=== PATIENT | female | born 1940 | race Caucasian/White ===

== ENCOUNTER 2022-11-09 10:43 | Outpatient (OUT) | payer MEDICARE, SELFPAY | END 2022-11-09 10:44 | disposition home or self-care (01) | LOC: WC 10:44 | PROVIDERS: PCP Internal Medicine; Visit Provider Surgery | DX: M72.6 Necrotizing fasciitis (principal); T81.89XA Other complications of procedures, not elsewhere classified, initial encounter; M13.80 Other specified arthritis, unspecified site; E78.5 Hyperlipidemia, unspecified; I10 Essential (primary) hypertension; Z85.3 Personal history of malignant neoplasm of breast | CPT/HCPCS: 87070; 87077; 87186; 87205; 99212; G0463 ==

== ENCOUNTER 2022-11-13 10:17 | Outpatient (OUT) | payer MEDICARE, SELFPAY | END 2022-11-13 10:18 | LOC: WC 10:17 | PROVIDERS: PCP Internal Medicine; Visit Provider Surgery | DX: T81.89XA Other complications of procedures, not elsewhere classified, initial encounter (principal); M72.6 Necrotizing fasciitis; Z85.3 Personal history of malignant neoplasm of breast; M13.80 Other specified arthritis, unspecified site | CPT/HCPCS: 99211; G0463 ==

== ENCOUNTER 2022-11-15 10:46 | Outpatient (OUT) | payer MEDICARE, SELFPAY | END 2022-11-15 10:47 | LOC: WC 10:46 | PROVIDERS: PCP Internal Medicine; Visit Provider Surgery | DX: T81.89XA Other complications of procedures, not elsewhere classified, initial encounter (principal) | CPT/HCPCS: 99211; G0463 ==

== ENCOUNTER 2022-11-17 10:46 | Outpatient (OUT) | payer MEDICARE, SELFPAY | END 2022-11-17 10:47 | LOC: WC 10:46 | PROVIDERS: PCP Internal Medicine; Visit Provider Surgery | DX: T81.89XA Other complications of procedures, not elsewhere classified, initial encounter (principal) | CPT/HCPCS: 99211; A6213; G0463 ==

== ENCOUNTER 2022-11-20 10:48 | Outpatient (OUT) | payer MEDICARE, SELFPAY | END 2022-11-20 10:49 | PROVIDERS: PCP Internal Medicine; Visit Provider Surgery | DX: T81.89XA Other complications of procedures, not elsewhere classified, initial encounter (principal) | CPT/HCPCS: 15271; A6213 ==

== ENCOUNTER 2022-11-27 10:45 | Outpatient (OUT) | payer MEDICARE, SELFPAY | END 2022-11-27 10:46 | disposition home or self-care (01) | LOC: WC 10:45 | PROVIDERS: PCP Internal Medicine; Visit Provider Surgery | DX: T81.89XA Other complications of procedures, not elsewhere classified, initial encounter (principal); M13.80 Other specified arthritis, unspecified site; E78.5 Hyperlipidemia, unspecified; I10 Essential (primary) hypertension; M72.6 Necrotizing fasciitis; Z85.3 Personal history of malignant neoplasm of breast | CPT/HCPCS: 15271; A6213 ==

== ENCOUNTER 2022-12-04 10:45 | Outpatient (OUT) | payer MEDICARE, SELFPAY | END 2022-12-04 10:46 | disposition home or self-care (01) | LOC: WC 10:46 | PROVIDERS: PCP Internal Medicine; Visit Provider Surgery | DX: T81.89XA Other complications of procedures, not elsewhere classified, initial encounter (principal); M13.80 Other specified arthritis, unspecified site; E78.5 Hyperlipidemia, unspecified; I10 Essential (primary) hypertension; M72.6 Necrotizing fasciitis; Z85.3 Personal history of malignant neoplasm of breast | CPT/HCPCS: 15271; A6213 ==

== ENCOUNTER 2022-12-08 10:17 | Outpatient (OUT) | payer MEDICARE, SELFPAY | END 2022-12-08 10:18 | disposition home or self-care (01) | LOC: WC 10:18 | PROVIDERS: PCP Internal Medicine; Visit Provider Surgery | DX: T81.89XA Other complications of procedures, not elsewhere classified, initial encounter (principal); M13.80 Other specified arthritis, unspecified site; E78.5 Hyperlipidemia, unspecified; I10 Essential (primary) hypertension; M72.6 Necrotizing fasciitis; Z85.3 Personal history of malignant neoplasm of breast | CPT/HCPCS: A6213; G0463 ==

== ENCOUNTER 2022-12-11 10:28 | Outpatient (OUT) | payer MEDICARE, SELFPAY | END 2022-12-11 10:29 | disposition home or self-care (01) | LOC: WC 10:29 | PROVIDERS: PCP Internal Medicine; Visit Provider Surgery | DX: T81.89XA Other complications of procedures, not elsewhere classified, initial encounter (principal) | CPT/HCPCS: G0463 ==

== ENCOUNTER 2022-12-14 10:44 | Outpatient (OUT) | payer MEDICARE, SELFPAY | END 2022-12-14 10:45 | disposition home or self-care (01) | LOC: WC 10:44 | PROVIDERS: PCP Internal Medicine; Visit Provider Surgery | DX: T81.89XA Other complications of procedures, not elsewhere classified, initial encounter (principal) | CPT/HCPCS: 15271; A6213; Q4159 ==

== ENCOUNTER 2022-12-18 10:42 | Outpatient (OUT) | payer MEDICARE, SELFPAY | END 2022-12-18 10:43 | disposition home or self-care (01) | LOC: WC 10:42 | PROVIDERS: PCP Internal Medicine; Visit Provider Surgery | DX: T81.89XA Other complications of procedures, not elsewhere classified, initial encounter (principal) | CPT/HCPCS: A6213; G0463 ==

== ENCOUNTER 2022-12-21 10:17 | Outpatient (OUT) | payer MEDICARE, SELFPAY | END 2022-12-21 10:18 | disposition home or self-care (01) | LOC: WC 10:17 | PROVIDERS: PCP Internal Medicine; Visit Provider Surgery | DX: T81.89XA Other complications of procedures, not elsewhere classified, initial encounter (principal) | CPT/HCPCS: 15271; A6213; Q4159 ==

== ENCOUNTER 2022-12-25 10:42 | Outpatient (OUT) | payer MEDICARE, SELFPAY | END 2022-12-25 10:43 | disposition home or self-care (01) | LOC: WC 10:42 | PROVIDERS: PCP Internal Medicine; Visit Provider Surgery | DX: T81.89XA Other complications of procedures, not elsewhere classified, initial encounter (principal); R60.0 Localized edema; R79.89 Other specified abnormal findings of blood chemistry | CPT/HCPCS: 93970; A6213; G0463 ==

== ENCOUNTER 2022-12-25 16:40 | Outpatient (OUT) | payer MEDICARE, SELFPAY ==
[2022-12-25 16:59] LABS: Basophils Percent Auto 0.4 % (0.2-2.0); Eosinophils Absolute Auto 0.1 10^3/uL (0.0-0.7); Eosinophils Percent Auto 1.1 % (0.9-7.0); Hemoglobin 12.9 g/dL (12.0-16.0); Immature Granulocytes Abs Auto 0.06 10^3/uL (0.00-0.03); Immature Granulocytes Pct Auto 0.5 % (0.0-0.5); Lymphocytes Absolute Auto 1.9 10^3/uL (1.2-3.8); Lymphocytes Percent Auto 16.5 % (20.5-60.0); Mean Corpuscular HGB Conc 33.1 g/dL (29.9-35.2); Mean Corpuscular Hemoglobin 29.2 pg (26.7-34.0); Mean Corpuscular Volume 88.2 fL (81.0-99.0); Mean Platelet Volume 10.4 fL (9.5-13.5); Monocytes Percent Auto 9.2 % (1.7-12.0); Neutrophils Absolute Auto 8.2 10^3/uL (1.4-6.5); Neutrophils Percent Auto 72.3 % (43.0-75.0); Platelet Count 261 10^3/uL (150-450); Red Blood Count 4.42 10^6/uL (4.20-5.40); Red Cell Distribution Width 14.2 % (11.0-15.0); White Blood Count 11.3 10^3/uL (4.0-11.0)
[2022-12-25 18:10] LABS: Alanine Aminotransferase 50 U/L (14-59); Alkaline Phosphatase 122 U/L (46-116); Anion Gap 16.1; Aspartate Amino Transferase 37 U/L (15-37); BUN Creatinine Ratio 20.4; Bilirubin Total 0.6 mg/dL (0.2-1.0); Calcium 10.3 mg/dL (8.5-10.1); Carbon Dioxide 24.1 mmol/L (21.0-32.0); Chloride 104 mmol/L (98-107); Estimated GFR (African America 59 (>=60); Estimated GFR (Non-African Ame 48 (>=60); Glucose 106 mg/dL (74-106); Potassium 4.2 mmol/L (3.5-5.1); Sodium 140 mmol/L (136-145)
== END 2022-12-25 16:41 | disposition home or self-care (01) ==
PROVIDERS: PCP Internal Medicine; Visit Provider Internal Medicine
DX: R60.0 Localized edema (principal); D51.0 Vitamin B12 deficiency anemia due to intrinsic factor deficiency; N18.32 Chronic kidney disease, stage 3b; E03.9 Hypothyroidism, unspecified; R20.8 Other disturbances of skin sensation
CPT/HCPCS: 36415; 80053; 82607; 84443; 85025; 85378

== ENCOUNTER 2022-12-25 17:35 | Outpatient (OUT) | payer MEDICARE, SELFPAY ==
--- NOTE | 2022-12-25 17:38 | US_ITS ---
[place] [address] Patient Name: LAWSON GIBBS MRN: [id number] date: 1940 Sex: F Assigned Patient Location: US Current Patient Location: Accession/Order Number: [id number] Exam Date: 12/25/2022 17:40 Report Date: 12/25/2022 20:02 At the request of: MERCEDEZ HAYES Procedure: US venous doppler LE BI EXAMINATION: US venous doppler LE BI HISTORY: R60.0 LOWER EXTREMITY EDEMA, R79.89 ELEVATED D-DIMER COMPARISON: No relevant comparison available. TECHNIQUE: Grayscale, color and Doppler FINDINGS: Region: Bilateral legs Thrombus: None Flow: Normal Augmentation: Normal Compressibility: Normal US/US venous doppler LE BI IMPRESSION: No deep or superficial vein thrombus in the legs *Exam performed in accordance with [facility] practice guidelines- Peripheral venous ultrasound, September 04, 2009. Electronically authenticated by: MARGIE JOHN Date: 12/25/2022 20:02
== END 2022-12-25 17:36 | disposition home or self-care (01) ==
PROVIDERS: PCP Internal Medicine; Visit Provider Internal Medicine
DX: R60.0 Localized edema (principal); R79.89 Other specified abnormal findings of blood chemistry
CPT/HCPCS: 93970

== ENCOUNTER 2022-12-28 10:42 | Outpatient (OUT) | payer MEDICARE, SELFPAY | END 2022-12-28 10:43 | disposition home or self-care (01) | LOC: WC 10:42 | PROVIDERS: PCP Internal Medicine; Visit Provider Surgery | DX: T81.89XA Other complications of procedures, not elsewhere classified, initial encounter (principal) | CPT/HCPCS: 15271; A6213; Q4159 ==

== ENCOUNTER 2023-01-01 13:17 | Outpatient (OUT) | payer MEDICARE, SELFPAY | END 2023-01-01 13:18 | disposition home or self-care (01) | LOC: WC 13:17 | PROVIDERS: PCP Internal Medicine; Visit Provider Surgery | DX: T81.89XA Other complications of procedures, not elsewhere classified, initial encounter (principal) | CPT/HCPCS: A6213; G0463 ==

== ENCOUNTER 2023-01-04 10:46 | Outpatient (OUT) | payer MEDICARE, SELFPAY | END 2023-01-04 10:47 | disposition home or self-care (01) | LOC: WC 10:47 | PROVIDERS: PCP Internal Medicine; Visit Provider Surgery | DX: T81.89XA Other complications of procedures, not elsewhere classified, initial encounter (principal) | CPT/HCPCS: A6213; G0463 ==

== ENCOUNTER 2023-01-08 10:50 | Outpatient (OUT) | payer MEDICARE, SELFPAY | END 2023-01-08 10:51 | disposition home or self-care (01) | LOC: WC 10:50 | PROVIDERS: PCP Internal Medicine; Visit Provider Physician Assistant | DX: T81.89XA Other complications of procedures, not elsewhere classified, initial encounter (principal) | CPT/HCPCS: A6213; G0463 ==

== ENCOUNTER 2023-01-11 10:46 | Outpatient (OUT) | payer MEDICARE, SELFPAY | END 2023-01-11 10:47 | disposition home or self-care (01) | LOC: WC 10:47 | PROVIDERS: PCP Internal Medicine; Visit Provider Surgery | DX: T81.89XA Other complications of procedures, not elsewhere classified, initial encounter (principal) | CPT/HCPCS: A6213; G0463 ==

== ENCOUNTER 2023-01-15 10:47 | Outpatient (OUT) | payer MEDICARE, SELFPAY | END 2023-01-15 10:48 | disposition home or self-care (01) | LOC: WC 10:47 | PROVIDERS: PCP Internal Medicine; Visit Provider Surgery | DX: T81.89XA Other complications of procedures, not elsewhere classified, initial encounter (principal) | CPT/HCPCS: A6213; G0463 ==

== ENCOUNTER 2023-01-18 10:44 | Outpatient (OUT) | payer MEDICARE, SELFPAY | END 2023-01-18 10:45 | disposition home or self-care (01) | LOC: WC 10:44 | PROVIDERS: PCP Internal Medicine; Visit Provider Surgery | DX: Z01.812 Encounter for preprocedural laboratory examination (principal); Z01.810 Encounter for preprocedural cardiovascular examination; T81.89XA Other complications of procedures, not elsewhere classified, initial encounter; J44.9 Chronic obstructive pulmonary disease, unspecified; R06.02 Shortness of breath | CPT/HCPCS: 71046; 85610; 85730; 93005; A6213; G0463 ==

== ENCOUNTER 2023-01-18 12:45 | Outpatient (OUT) | payer MEDICARE, SELFPAY ==
--- NOTE | 2023-01-18 12:53 | ECG_ITS ---
The [facility] Test Date: 2023-01-18 Pat Name: LAWSON GIBBS Department: Room: - Gender: Female [employer]: : 1940 Requested By: [id number] Order Number: [id number] Reading MD: MERCEDEZ HAYES Measurements Intervals [place] Rate: 58 P: 63 OK: 186 QRS: 54 QRSD: 78 T: 38 QT: 414 QTc: 409 Interpretive Statements SINUS BRADYCARDIA No previous ECG available for comparison Electronically Signed On 01-19-2023 6:59:08 EDT by MERCEDEZ HAYES
--- NOTE | 2023-01-18 13:21 | XR_ITS ---
The [address] [address] Patient Name: LAWSON GIBBS MRN: [id number] date: 1940 Sex: F Assigned Patient Location: [facility] Current Patient Location: [facility] Accession/Order Number: [id number] Exam Date: 01/18/2023 13:45 Report Date: 01/18/2023 14:25 At the request of: RITU DOS SANTOS Procedure: XR chest 2V EXAM: XR chest 2V HISTORY: PRE OP EXAM . COPD with shortness of breath. COMPARISON: 11/15/2021 TECHNIQUE: AP upright portable chest x-ray FINDINGS: The heart is not enlarged and the vasculature is not distended. Slight prominence of interstitial markings in the lower lungs are noted with flattening of the hemidiaphragms indicating COPD. No acute infiltrate, effusion or pneumothorax is identified. Mild scoliosis the spine is noted with diffuse osteopenia. XR/XR chest 2V IMPRESSION: No acute infiltrate or evidence of cardiac decompensation. Mild chronic changes are present. The overall appearance of the chest is unchanged. Electronically authenticated by: LOREN KING Date: 01/18/2023 14:25
--- NOTE | 2023-01-18 14:07 | PM.PRESUREVA ---
History of Present Illness History of Present Illness Chief complaint: Right Breast Wound Narrative: Patient presents for preadmission testing. Please see HPI from Dr. Daniels dated 01/15/2023. Review of Systems ROS Narrative REVIEW OF SYSTEMS: Negative except as stated in HPI, ten or more systems reviewed. Constitutional: No fever , chills, weakness ENT: No sore throat or epistaxis Cardiovascular: Chronic lower extremity edema, Dyspnea on exertion; no chest pain or palpitations Respiratory: Chronic shortness of breath, cough, and wheezing Musculoskeletal: Chronic joint pain and swelling Gastrointestinal: No abdominal pain, constipation, diarrhea, or vomiting Genitourinary: No dysuria or hematuria Neurological: No numbness, tingling, weakness, or headache Psychiatric: No mood changes [facility] Medical History (Updated 01/18/23 @ 14:05 by Marina Bolivar NP) (06/01/14) (~2014) Surgical History (Updated 01/18/23 @ 14:05 by Marina Bolivar NP) (07/19/95) (07/09/97) (03/31/15) (02/16/1962) (~1970) (~06/01/14) (01/02/06) (04/23/98) (10/28/14) (04/07/96) (04/19/12) (12/09/13) (09/03/18) (04/07/96) (07/01/14) (07/07/14) (04/14/15) (09/03/18) (~1969) (02/04/97) (~1939) (10/25/10) (01/18/16) (10/14/19) (~2006) (04/22/08) (09/30/19) Family History (Updated 01/18/23 @ 13:24 by Marina Bolivar NP) Other Family history of lung cancer Social History (Updated 01/18/23 @ 13:12 by Marina Bolivar NP) Within the past year, how often did you have a drink containing alcohol: never Score interpretation: A score less than 3 is consistent with normal alcohol consumption. Smoking status: Former smoker Non-prescribed substance use: denies use Highest level of school completed/degree received: high school graduate Meds Home Medications and Allergies Home Medications Medication Instructions Recorded Confirmed Type acetaminophen 500 mg capsule 1,000 mg PO Q6H PRN pain 01/18/23 01/18/23 History albuterol sulfate 90 mcg/actuation 2 inh inhalation Q6H PRN shortness 01/18/23 01/18/23 History aerosol inhaler of breath or wheezing amlodipine 10 mg tablet 10 mg PO DAILY 01/18/23 01/18/23 History aspirin 81 mg tablet,delayed 81 mg PO DAILY 01/18/23 01/18/23 History release (Adult Aspirin Regimen) atorvastatin 40 mg tablet 40 mg PO QPM 01/18/23 01/18/23 History biotin 10,000 mcg chewable tablet mcg PO 01/18/23 History (Hair, Skin and Nails (biotin)) calcium carbonate 600 mg-vitamin 1 tab PO DAILY 01/18/23 01/18/23 History D3 5 mcg (200 unit) tablet cyanocobalamin (vitamin B-12) 500 mcg IM .monthly 01/18/23 01/18/23 History 1,000 mcg/mL injection solution docusate sodium 100 mg capsule 100 mg PO DAILY PRN constipation 01/18/23 01/18/23 History (Colace) fluticasone fur. 200 mcg-umeclid 1 inh inhalation DAILY 01/18/23 01/18/23 History 62.5 mcg-vilant 25 mcg inhalat.powder (Trelegy Ellipta) inulin 2 gram chewable tablet g PO 01/18/23 History (Fiber Gummies) isosorbide mononitrate 60 mg 60 mg PO DAILY 01/18/23 01/18/23 History tablet,extended release 24 hr levothyroxine 88 mcg tablet 88 mcg PO DAILY 01/18/23 01/18/23 History (Euthyrox) lisinopril 20 mg tablet 20 mg PO DAILY 01/18/23 01/18/23 History temazepam 30 mg capsule (Restoril) 30 mg PO QPM 01/18/23 01/18/23 History Allergies Allergy/AdvReac Type Severity Reaction Status Date / Time Penicillins Allergy Hives Verified 01/18/23 13:11 Sulfa (Sulfonamide Allergy Rash Verified 01/18/23 13:11 Antibiotics) Exam Narrative Exam Narrative: Constitutional: Awake, alert, comfortable, well-appearing, nontoxic, interactive, vital signs as charted Head: Normocephalic, atraumatic Neck: Supple, normal appearance, normal range of motion, no meningeal signs, no lymphadenopathy Respiratory: No respiratory distress, breath sounds clear Cardiovascular: Regular rate and rhythm, strong and regular heart tones, 2+ pedal edema bilaterally Psychiatric: Oriented ?3, normal affect Assessment and Plan Assessment and Plan (1) Breast wound: Plan Right breast debridement scheduled with Dr. Daniels 01/26/2023.
[2023-01-18 14:25] LABS: INR 0.97; Partial Thromboplastin Time 25.1 sec (22.3-36.2); Prothrombin Time 10.3 sec (9.0-11.6)
== END 2023-01-18 12:46 | disposition home or self-care (01) ==
LOC: PST 12:47
PROVIDERS: PCP Internal Medicine; Visit Provider Surgery
DX: Z01.812 Encounter for preprocedural laboratory examination (principal); T81.89XA Other complications of procedures, not elsewhere classified, initial encounter; Z01.810 Encounter for preprocedural cardiovascular examination; J44.9 Chronic obstructive pulmonary disease, unspecified; R06.02 Shortness of breath
CPT/HCPCS: 71046; 80048; 85610; 85730; 93005; G0463

== ENCOUNTER 2023-01-23 10:48 | Outpatient (OUT) | payer MEDICARE, SELFPAY | END 2023-01-23 10:49 | disposition home or self-care (01) | LOC: WC 10:48 | PROVIDERS: PCP Internal Medicine; Visit Provider Surgery | DX: T81.89XA Other complications of procedures, not elsewhere classified, initial encounter (principal) | CPT/HCPCS: A6213; G0463 ==

== ENCOUNTER 2023-01-26 08:47 | Day surgery (SDC) | payer MEDICARE, SELFPAY ==
[2023-01-18 13:37] VITALS: BP 127/58; PULSE 58; RESP 16; TEMP 36.3; O2SAT 95; BMI 33.6
[2023-01-26] VITALS (18 sets, daily range): BP systolic 157–188; BP diastolic 56–83; PULSE 60–67; RESP 9–25; TEMP 36.3–36.5; O2SAT 87–98; BMI 33.6
[2023-01-26] MEDS: LACTATED RINGER'S SOLUTION 1,000 ML 50 ML IV (09:14)
[2023-01-26] MEDS: CEFAZOLIN SODIUM 1,000 MG in 0.9 % SODIUM CHLORIDE 10 ML 1 MG IRR (11:47)
[2023-01-26] MEDS: 0.9 % SODIUM CHLORIDE 10 ML SYRINGE - SALINE FLUSH INJ (11:47)
[2023-01-26] MEDS: HYDROMORPHONE HCL 0.5 MG/0.5 ML SYRINGE IV ×2 (12:25→12:34)
--- NOTE | 2023-01-26 12:41 | PM.GSPRC ---
Date of procedure: 01/26/23 Indications for Procedure: This patient is an 82-year-old female who has recently been under my care at the wound healing center. She has been treated for the past three months for a nonhealing wound of the right breast from a prior punch biopsy. Patient previously had undergone right breast lumpectomy as well as postoperative radiation. Despite using multiple wound healing modalities and products she maintains nonhealing of the surgical wound with frequent possitive cultures. Because of this I recommended wide excision of the area of the wound with possible planned VAC therapy versus closure. The risks benefits options and potential complications of the procedure were discussed in detail with her and she agreed to proceed and consent was signed. Pre-op diagnosis: nonhealing wound right breast Post-op diagnosis: same as pre-op Procedure: debridement and excision right breast tissue with wound closure Anesthesia: General-LMA Surgeon: Reese Daniels Procedure Summary: the patient was brought to the operating room placed in supine position. Gen. anesthesia was induced and an LMA placed. The right breast and chest was prepped and draped in usual sterile fashion. The wound in the right breast was again noted just superior to the nipple areolar complex.an elliptical incision approximate 6 cm x 3 cm was made surrounding the wound in the transverse plane. This was carried into the underlying breast tissue with electrocautery. A generous segment of the breast tissue which included the wound was subsequently excised.specimen dimensions were approximately 6 cm by a 3 cm x 4 cm. A few small bleeding points in the wound were controlled with electrocautery. Excellent hemostasis was noted. The wound was then copiously irrigated with saline and Ancef. Next I created slight flaps both superiorly and inferiorly with electrocautery as at this point my plan was to continue with wound closure. The skin was then reapproximated with interrupted sutures of 3-0 Prolene. Sterile dressings were applied. Sponge and needle instrument counts were correct at the end of the procedure. The patient tolerated the procedure well and was transferred to the recovery area in stable condition. Estimated blood loss (mL): 5 Specimens: right breast tissue including right breast wound Complications: No
== END 2023-01-26 13:41 | disposition home or self-care (01) ==
PROVIDERS: PCP Internal Medicine; Visit Provider Surgery
PROC: (CPT 11042; principal; 2023-01-26 10:00)
DX: T81.89XA Other complications of procedures, not elsewhere classified, initial encounter (principal); Z79.01 Long term (current) use of anticoagulants; D64.9 Anemia, unspecified; I25.10 Atherosclerotic heart disease of native coronary artery without angina pectoris; Z87.891 Personal history of nicotine dependence; J44.9 Chronic obstructive pulmonary disease, unspecified; I10 Essential (primary) hypertension; R06.09 Other forms of dyspnea
CPT/HCPCS: 11042; 36415; 88307; J1170; J2704

== ENCOUNTER 2023-02-01 09:11 | Outpatient (OUT) | payer MEDICARE, SELFPAY | END 2023-02-01 09:12 | disposition home or self-care (01) | LOC: WC 09:11 | PROVIDERS: PCP Internal Medicine; Visit Provider Surgery | DX: T81.89XA Other complications of procedures, not elsewhere classified, initial encounter (principal) | CPT/HCPCS: A6213; G0463 ==

== ENCOUNTER 2023-02-06 09:32 | Outpatient (OUT) | payer MEDICARE, SELFPAY | END 2023-02-06 09:33 | disposition home or self-care (01) | LOC: WC 09:32 | PROVIDERS: PCP Internal Medicine; Visit Provider Surgery | DX: T81.89XA Other complications of procedures, not elsewhere classified, initial encounter (principal); M13.80 Other specified arthritis, unspecified site; M72.6 Necrotizing fasciitis | CPT/HCPCS: G0463 ==

== ENCOUNTER 2023-02-07 03:01 | Emergency (ER) | payer MEDICARE, SELFPAY ==
[2023-02-07 03:02] VITALS: BP 175/65; PULSE 76; RESP 18; TEMP 36.8; O2SAT 97; BMI 33.8
--- NOTE | 2023-02-07 03:14 | ED_ITS ---
HPI - Wound/Laceration General Chief Complaint: Wound/Laceration Stated Complaint: wound Time Seen by Provider: 02/07/23 03:14 History of Present Illness HPI narrative: patient presents to the ed via ems with the co wound infection. patient states She had a right breast biopsy in August which became infected. She took antibiotics several times and on January 26 Dr. antunez did an excision of the lesion. She states yesterday she was sleeping when she woke up her entire dressing was soaked and saturated with drainage so she came in to be evaluated. She states it was purulent orangey color. Has an appointment with Dr. Daniels on . She denies any fever, or chills. She states it is painful. Related Data Home Medications Medication Instructions Recorded Confirmed acetaminophen 500 mg capsule 1,000 mg PO Q6H PRN pain 01/18/23 01/18/23 albuterol sulfate 90 mcg/actuation 2 inh inhalation Q6H PRN shortness 01/18/23 01/18/23 aerosol inhaler of breath or wheezing amlodipine 10 mg tablet 10 mg PO DAILY 01/18/23 01/18/23 aspirin 81 mg tablet,delayed 81 mg PO DAILY 01/18/23 01/26/23 release (Adult Aspirin Regimen) atorvastatin 40 mg tablet 40 mg PO QPM 01/18/23 01/18/23 biotin 10,000 mcg chewable tablet mcg PO 01/18/23 (Hair, Skin and Nails (biotin)) calcium carbonate 600 mg-vitamin 1 tab PO DAILY 01/18/23 01/18/23 D3 5 mcg (200 unit) tablet cyanocobalamin (vitamin B-12) 500 mcg IM .monthly 01/18/23 01/18/23 1,000 mcg/mL injection solution docusate sodium 100 mg capsule 100 mg PO DAILY PRN constipation 01/18/23 01/18/23 (Colace) fluticasone fur. 200 mcg-umeclid 1 inh inhalation DAILY 01/18/23 01/26/23 62.5 mcg-vilant 25 mcg inhalat.powder (Trelegy Ellipta) inulin 2 gram chewable tablet g PO 01/18/23 (Fiber Gummies) isosorbide mononitrate 60 mg 60 mg PO DAILY 01/18/23 01/18/23 tablet,extended release 24 hr levothyroxine 88 mcg tablet 88 mcg PO DAILY 01/18/23 01/18/23 (Euthyrox) lisinopril 20 mg tablet 20 mg PO DAILY 01/18/23 01/18/23 temazepam 30 mg capsule (Restoril) 30 mg PO QPM 01/18/23 01/18/23 Previous Rx's Medication Instructions Recorded hydrocodone 5 mg-acetaminophen 325 1 tab PO Q6H PRN pain #8 tabs 01/26/23 mg tablet doxycycline hyclate 100 mg capsule 100 mg PO BID 7 days #14 caps 02/07/23 Allergies Allergy/AdvReac Type Severity Reaction Status Date / Time Penicillins Allergy Hives Verified 02/07/23 03:07 Sulfa (Sulfonamide Allergy Rash Verified 02/07/23 03:07 Antibiotics) Review of Systems ROS Status of ROS 10 or more systems reviewed and unremarkable except as noted in history and below [facility] Medical History (Updated 02/07/23 @ 03:26 by Petrona Briceño MD) (06/01/14) (~2014) Surgical History (Updated 01/18/23 @ 14:05 by Marina Bolivar NP) (07/19/95) (07/09/97) (03/31/15) (02/16/1962) (~1970) (~06/01/14) (01/02/06) (04/23/98) (10/28/14) (04/07/96) (04/19/12) (12/09/13) (09/03/18) (04/07/96) (07/01/14) (07/07/14) (04/14/15) (09/03/18) (~1970) (02/04/97) (~1940) (10/25/10) (01/18/16) (10/14/19) (~2006) (04/22/08) (09/30/19) Family History (Updated 01/18/23 @ 13:24 by Marina Bolivar NP) Other Family history of lung cancer Social History (Updated 01/18/23 @ 13:12 by Marina Bolivar NP) Within the past year, how often did you have a drink containing alcohol: never Score interpretation: A score less than 3 is consistent with normal alcohol consumption. Smoking status: Never smoker Non-prescribed substance use: denies use Highest level of school completed/degree received: high school graduate Exam Narrative Exam Narrative: Nurses notes and vital signs reviewed and patient is not hypoxic. General: Nontoxic, Well-appearing and in no apparent distress. Skin: Warm, dry, no pallor noted. No Rash Head: Normocephalic, atraumatic. Neck: Supple, non-tender. Eye: Pupils are equal, round and EOMI. No scleral icterus. Ears, Nose, Mouth, and Throat: TM clear, no posterior oropharynx erythema or nasal mucosal hypertrophy, uvula is mid-line Oral mucosa is moist Cardiovascular: Regular Rate and Rhythm without murmur, gallop or rub. Respiratory: No accessory muscle use or respiratory distress. Lungs are clear to auscultation, no wheezing, rales or rhonchi Chest Wall: Right breast with a transverse incision 2 cm above the nipple line. Sutures in place. The center of the incision there is a crusty scab with a minimal amount of erythema approximately 5 mm surrounding it and scant serosanguineous drainage. There are no areas of fluctuance, or induration. Back: No midline thoracic or lumbar vertebral tenderness. No CVA tenderness Musculoskeletal: normal ROM, no calf or popliteal tenderness, no lower extremity edema/swelling GI: Abdomen is soft, non-distended. Normal bowel sounds. No masses appreciated. No tenderness to palpation. No rebound, guarding, or rigidity noted. Neurological: A&O x4. No cranial nerve dysfunction observed. No truncal ataxia. Moves all extremities. Sensation intact. Psychiatric: Cooperative and interactive. Normal mood and affect. Constitutional Vital Signs, click to edit/add: Last Vital Signs Temp 98.2 F 02/07/23 03:02 Pulse 76 02/07/23 03:02 Resp 18 02/07/23 03:02 BP 175/65 H 02/07/23 03:02 Pulse Ox 97 02/07/23 03:02 O2 Del Method Room Air 02/07/23 03:02 Course Vital Signs Vital signs: Vital Signs Temperature 98.2 F 02/07/23 03:02 Pulse Rate 76 02/07/23 03:02 Respiratory Rate 18 02/07/23 03:02 Blood Pressure 175/65 H 02/07/23 03:02 Pulse Oximetry 97 08/30/23 03:02 Oxygen Delivery Method Room Air 02/07/23 03:02 Temperature 98.2 F 02/07/23 03:02 Pulse Rate 76 02/07/23 03:02 Respiratory Rate 18 02/07/23 03:02 Blood Pressure 175/65 H 02/07/23 03:02 Pulse Oximetry 97 02/07/23 03:02 Oxygen Delivery Method Room Air 02/07/23 03:02 MDM - Wound/Laceration MDM Narrative Medical decision making narrative: Patient is concern for infection. She is ALLERGIC to penicillin, sulfa. We'll start the patient on doxycycline. Patient is advised to continue with wound care changing physicians, to try and she has follow-up appointment with Dr. Daniels tomorrow. Cultures obtained. At this time the patient is without objective evidence of an acute process requiring hospitalization or inpatient management. The patient has remained hemodynamically stable. No additional indication for emergent studies at this time. I answered all questions. Discussed discharge instructions including standard anticipatory guidance and what should prompt a return to the emergency department, including if they get worse are not getting better or develops any new or concerning symptoms. I've given them specific time frame in which to follow-up, and who to follow-up with. The patient demonstrates understanding. Patient is nontoxic and stable for discharge with outpatient follow-up. This note was created with the assistance of a speech recognition program. Although the intention is to generate documents that actually reflects the content of the visit, no guarantees can be provided that every mistake has been identified and corrected by editing. Differential Diagnosis Differential diagnosis: Likely abscess and other Medical Records Attestation: I reviewed the patient's medical records. Lab Data Attestation: I reviewed the patient's lab results. Discharge Plan Discharge Chief Complaint: Wound/Laceration Clinical Impression: Postoperative wound infection Patient Disposition: Home, Self-Care Time of Disposition Decision: 03:24 Condition: Good Mode of Transportation: Private Vehicle Prescriptions / Home Meds: New doxycycline hyclate 100 mg capsule 100 mg PO BID 7 Days Qty: 14 0RF No Action lisinopril 20 mg tablet 20 mg PO DAILY amlodipine 10 mg tablet 10 mg PO DAILY levothyroxine [Euthyrox] 88 mcg tablet 88 mcg PO DAILY isosorbide mononitrate 60 mg tablet extended release 24 hr 60 mg PO DAILY aspirin [Adult Aspirin Regimen] 81 mg tablet,delayed release (DR/EC) 81 mg PO DAILY Fiber Gummies 2 gram tablet,chewable PO calcium carbonate-vitamin D3 600 mg-5 mcg (200 unit) tablet 1 tab PO DAILY Trelegy Ellipta 200-62.5-25 mcg blister with device 1 inh inhalation DAILY Hair, Skin and Nails (biotin) 10,000 mcg tablet,chewable PO atorvastatin 40 mg tablet 40 mg PO QPM temazepam [Restoril] 30 mg capsule 30 mg PO QPM cyanocobalamin (vitamin B-12) 1,000 mcg/mL solution 500 mcg IM .monthly acetaminophen 500 mg capsule 1,000 mg PO Q6H PRN (Reason: pain) albuterol sulfate 90 mcg/actuation HFA aerosol inhaler 2 inh inhalation Q6H PRN (Reason: shortness of breath or wheezing) docusate sodium [Colace] 100 mg capsule 100 mg PO DAILY PRN (Reason: constipation) hydrocodone-acetaminophen 5-325 mg tablet 1 tab PO Q6H PRN (Reason: pain) Qty: 8 0RF Instructions: Wound Infection (ED), Surgical Site Infections (ED) Stand Alone Forms: Portal Instructions Referrals: Nobel Ferguson DO [Primary Care Provider] - 1 week Reese Daniels MD [Physician] - 02/08/23 (as scheduled)
[2023-02-07] MEDS: DOXYCYCLINE MONOHYDRATE 100 MG CAPSULE PO (03:35)
== END 2023-02-07 07:00 | disposition home or self-care (01) ==
LOC: ER 03:29
PROVIDERS: Emergency Provider Emergency Medicine; PCP Internal Medicine
DX: T81.49XA Infection following a procedure, other surgical site, initial encounter (principal); N61.0 Mastitis without abscess; Z79.82 Long term (current) use of aspirin; Z79.899 Other long term (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
CPT/HCPCS: 87070; 99283

== ENCOUNTER 2023-02-08 09:15 | Outpatient (OUT) | payer MEDICARE, SELFPAY | END 2023-02-08 09:16 | disposition home or self-care (01) | LOC: WC 09:15 | PROVIDERS: PCP Internal Medicine; Visit Provider Surgery | DX: T81.89XA Other complications of procedures, not elsewhere classified, initial encounter (principal) | CPT/HCPCS: A6213; G0463 ==

== ENCOUNTER 2023-02-13 10:13 | Outpatient (OUT) | payer MEDICARE, SELFPAY | END 2023-02-13 10:14 | disposition home or self-care (01) | LOC: WC 10:13 | PROVIDERS: PCP Internal Medicine; Visit Provider Surgery | DX: T81.89XA Other complications of procedures, not elsewhere classified, initial encounter (principal) | CPT/HCPCS: A6213; G0463 ==

== ENCOUNTER 2023-02-15 11:17 | Outpatient (OUT) | payer MEDICARE, SELFPAY | END 2023-02-15 11:18 | disposition home or self-care (01) | LOC: WC 11:17 | PROVIDERS: PCP Internal Medicine; Visit Provider Surgery | DX: T81.89XA Other complications of procedures, not elsewhere classified, initial encounter (principal) | CPT/HCPCS: G0463 ==

== ENCOUNTER 2023-02-19 10:14 | Outpatient (OUT) | payer MEDICARE, SELFPAY | END 2023-02-19 10:15 | disposition home or self-care (01) | LOC: WC 10:14 | PROVIDERS: PCP Internal Medicine; Visit Provider Surgery | DX: T81.89XA Other complications of procedures, not elsewhere classified, initial encounter (principal) | CPT/HCPCS: A6213; G0463 ==

== ENCOUNTER 2023-02-22 10:47 | Outpatient (OUT) | payer MEDICARE, SELFPAY | END 2023-02-22 10:48 | disposition home or self-care (01) | LOC: WC 10:47 | PROVIDERS: PCP Internal Medicine; Visit Provider Surgery | DX: T81.89XA Other complications of procedures, not elsewhere classified, initial encounter (principal) | CPT/HCPCS: A6213; G0463 ==

== ENCOUNTER 2023-02-26 11:15 | Outpatient (OUT) | payer MEDICARE, SELFPAY | END 2023-02-26 11:16 | disposition home or self-care (01) | LOC: WC 11:15 | PROVIDERS: PCP Internal Medicine; Visit Provider Surgery | DX: T81.89XA Other complications of procedures, not elsewhere classified, initial encounter (principal) | CPT/HCPCS: A6213; G0463 ==

== ENCOUNTER 2023-03-01 10:33 | Outpatient (OUT) | payer MEDICARE, SELFPAY | END 2023-03-01 10:34 | disposition home or self-care (01) | LOC: WC 10:33 | PROVIDERS: PCP Internal Medicine; Visit Provider Surgery | DX: T81.89XA Other complications of procedures, not elsewhere classified, initial encounter (principal) | CPT/HCPCS: 11042; A6213 ==

== ENCOUNTER 2023-03-05 15:13 | Outpatient (OUT) | payer MEDICARE, SELFPAY | END 2023-03-05 15:14 | disposition home or self-care (01) | LOC: WC 15:13 | PROVIDERS: PCP Internal Medicine; Visit Provider Surgery | DX: T81.89XA Other complications of procedures, not elsewhere classified, initial encounter (principal) | CPT/HCPCS: A6213; G0463 ==

== ENCOUNTER 2023-03-08 15:27 | Outpatient (OUT) | payer MEDICARE, SELFPAY | END 2023-03-08 15:28 | disposition home or self-care (01) | LOC: WC 15:28 | PROVIDERS: PCP Internal Medicine; Visit Provider Surgery | DX: T81.89XA Other complications of procedures, not elsewhere classified, initial encounter (principal) | CPT/HCPCS: 97597; A6199; A6213 ==

== ENCOUNTER 2023-03-12 15:33 | Outpatient (OUT) | payer MEDICARE, SELFPAY | END 2023-03-12 15:34 | disposition home or self-care (01) | LOC: WC 15:33 | PROVIDERS: PCP Internal Medicine; Visit Provider Surgery | DX: T81.89XA Other complications of procedures, not elsewhere classified, initial encounter (principal) | CPT/HCPCS: A6213; G0463 ==

== ENCOUNTER 2023-03-14 12:32 | Outpatient (OUT) | payer MEDICARE, SELFPAY | END 2023-03-14 12:33 | disposition home or self-care (01) | LOC: PST 12:32 | PROVIDERS: PCP Internal Medicine; Visit Provider Surgery | DX: Z01.818 Encounter for other preprocedural examination (principal); T81.89XD Other complications of procedures, not elsewhere classified, subsequent encounter ==

== ENCOUNTER 2023-03-14 15:29 | Outpatient (OUT) | payer MEDICARE, SELFPAY | END 2023-03-14 15:30 | disposition home or self-care (01) | LOC: WC 15:29 | PROVIDERS: PCP Internal Medicine; Visit Provider Surgery | DX: T81.89XA Other complications of procedures, not elsewhere classified, initial encounter (principal) | CPT/HCPCS: A6199; A6213; G0463 ==

== ENCOUNTER 2023-03-16 11:28 | Outpatient (OUT) | payer MEDICARE, SELFPAY | END 2023-03-16 11:29 | disposition home or self-care (01) | LOC: WC 11:29 | PROVIDERS: PCP Internal Medicine; Visit Provider Surgery | DX: T81.89XA Other complications of procedures, not elsewhere classified, initial encounter (principal) | CPT/HCPCS: A6213; G0463 ==

== ENCOUNTER 2023-03-19 15:25 | Outpatient (OUT) | payer MEDICARE, SELFPAY | END 2023-03-19 15:26 | disposition home or self-care (01) | LOC: WC 15:25 | PROVIDERS: PCP Internal Medicine; Visit Provider Surgery | DX: T81.89XA Other complications of procedures, not elsewhere classified, initial encounter (principal) | CPT/HCPCS: A6213; G0463 ==

== ENCOUNTER 2023-03-20 08:07 | Day surgery (SDC) | payer MEDICARE, SELFPAY ==
[2023-03-20] VITALS (12 sets, daily range): BP systolic 125–181; BP diastolic 41–76; PULSE 56–65; RESP 10–19; TEMP 36.1; O2SAT 93–98; BMI 36.1
[2023-03-20] MEDS: LACTATED RINGER'S SOLUTION 1,000 ML 50 ML IV (08:46)
[2023-03-20] MEDS: CEFAZOLIN SODIUM/DEXTROSE,ISO 2 GM/50 ML PIGGYBACK IV (09:28)
[2023-03-20] MEDS: SODIUM CHLORIDE 0.9% IRR (10:14)
[2023-03-20] MEDS: CEFAZOLIN SODIUM IRR (10:14)
[2023-03-20] MEDS: HYDROMORPHONE HCL 0.5 MG/0.5 ML SYRINGE IV ×2 (10:42→10:49)
--- NOTE | 2023-03-20 10:45 | PM.GSPRC ---
Date of procedure: 03/20/23 Indications for Procedure: Patient is a 83-year-old female who has been undergoing care at the wound healing center for a nonhealing wound of the right breast originating from a previous punch biopsy. Approximately 4-6 weeks ago she underwent excision of the nonhealing wound with primary closure. Initially she did well although a few weeks postoperatively a small segment in the central portion of the incision opened. We again initiated standard as well as advanced local cares. Despite this there was no improvement and the wound persisted. At this point I discussed options with the patient and her daughter. We elected to proceed with debridement and planned secondary closure. The risks benefits options and potential complications of tthe procedure were discussed in detail with her and she agreed to proceed and consent was signed. Pre-op diagnosis: Non-healing wound right breast Post-op diagnosis: same as pre-op Procedure: Debridement, secondary closure of right breast wound Anesthesia: MAC Surgeon: Reese Daniels Procedure Summary: the patient was brought to the operating room and placed in the supine position. Under MAC the right breast was prepped and draped in sterile fashion. She was given preoperative IV antibiotics. The wound of the right breast which was previously marked was identified. Was initiated with the use of a curet into the subcutaneous tissue. There is a small amount of necrotic tissue as well as slough. This was relatively minimal. Bleeding was noted circumferentially within the subcutaneous tissue and breast tissue during debridement. The wound was irrigated with Ancef saline. Hemostasis was noted. As there was some rolling of the skin at the site and created a small flaps on both sides of the wound to allow proper closure. This was done with sharp dissection. The wound was then filled with the Ancef saline. Closure was now undertaken. The skin was approximated with interrupted vertical mattress sutures as well as simple sutures. A secure closure was noted following this. Sterile dressing was applied. The patient tolerated the procedure well and was transferred to the recovery area in stable condition. Estimated blood loss (mL): 1 Specimens: None Complications: No
== END 2023-03-20 11:50 | disposition home or self-care (01) ==
PROVIDERS: PCP Internal Medicine; Visit Provider Surgery
PROC: (CPT 13160; principal; 2023-03-20 09:40)
DX: T81.89XD Other complications of procedures, not elsewhere classified, subsequent encounter (principal); Z79.899 Other long term (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; M19.90 Unspecified osteoarthritis, unspecified site; E78.5 Hyperlipidemia, unspecified; Z85.3 Personal history of malignant neoplasm of breast; I25.10 Atherosclerotic heart disease of native coronary artery without angina pectoris; Z96.652 Presence of left artificial knee joint; Z96.643 Presence of artificial hip joint, bilateral; Z95.5 Presence of coronary angioplasty implant and graft; J44.9 Chronic obstructive pulmonary disease, unspecified; I10 Essential (primary) hypertension
CPT/HCPCS: 13160; J1170; J2704

== ENCOUNTER 2023-03-22 10:17 | Outpatient (OUT) | payer MEDICARE, SELFPAY | END 2023-03-22 10:18 | disposition home or self-care (01) | LOC: WC 10:17 | PROVIDERS: PCP Internal Medicine; Visit Provider Surgery | DX: T81.89XA Other complications of procedures, not elsewhere classified, initial encounter (principal) | CPT/HCPCS: A6213; G0463 ==

== ENCOUNTER 2023-03-29 10:14 | Outpatient (OUT) | payer MEDICARE, SELFPAY | END 2023-03-29 10:15 | disposition home or self-care (01) | LOC: WC 10:15 | PROVIDERS: PCP Internal Medicine; Visit Provider Surgery | DX: T81.89XA Other complications of procedures, not elsewhere classified, initial encounter (principal) | CPT/HCPCS: G0463 ==

== ENCOUNTER 2023-04-02 13:18 | Outpatient (OUT) | payer MEDICARE, SELFPAY | END 2023-04-02 13:19 | disposition home or self-care (01) | LOC: WC 13:18 | PROVIDERS: PCP Internal Medicine; Visit Provider Surgery | DX: T81.89XA Other complications of procedures, not elsewhere classified, initial encounter (principal) | CPT/HCPCS: G0463 ==

== ENCOUNTER 2023-04-05 10:17 | Outpatient (OUT) | payer MEDICARE, SELFPAY | END 2023-04-05 10:18 | disposition home or self-care (01) | LOC: WC 10:17 | PROVIDERS: PCP Internal Medicine; Visit Provider Surgery | DX: T81.89XA Other complications of procedures, not elsewhere classified, initial encounter (principal) | CPT/HCPCS: G0463 ==

== ENCOUNTER 2023-04-09 10:15 | Outpatient (OUT) | payer MEDICARE, SELFPAY | END 2023-04-09 10:16 | disposition home or self-care (01) | LOC: WC 10:15 | PROVIDERS: PCP Internal Medicine; Visit Provider Surgery | DX: T81.89XA Other complications of procedures, not elsewhere classified, initial encounter (principal) | CPT/HCPCS: G0463 ==

== ENCOUNTER 2023-05-10 07:28 | Outpatient (RCR) | payer MEDICARE, SELFPAY ==
[2023-04-19 12:41] VITALS: BP 178/76; PULSE 74; RESP 18; TEMP 36.4; O2SAT 96
--- NOTE | 2023-04-19 12:43 | PC.NURSE ---
[id number] arrival ambulatory to bed. dressing removed from rt breast, packing removed from 2 small openings approx 0.3-0.4 cm in diameter above nipple/ariolasmall bridge of skin between openings., old packing had mucopurulent light yellow green drainage., irrigated wound with NSS. both wounds approx 2 cm in depth, skin surrounding wounds cleansed with soapand water, dried. applied skin prep, repacked both oenings with 1/4 nugauze. covered with 4x4, secured with tegaderm dressing, patient request waterproof dressing so that she could shower. Tolerated dressing change without problem. released ambulatory.
[2023-04-20 11:00] VITALS: BP 142/69; PULSE 71; RESP 18; TEMP 36.6; O2SAT 93
--- NOTE | 2023-04-20 15:14 | PC.NURSE ---
1100 arrival ambulatory to bed. Dressing removed from rt breast, dressing saturated with mucopurulent drainage. has 2 small openings above nipple area, with small skin bridge between openings. irrigated with NSS, irrigate one opening and runs out the other opening. repacked wound with 1/4 plain nugauze, approx 6 inches in each opening. skin surrounding wound cleansed with soap and water, dried skin, applied skin prep, 4x4 folded and placed over opening, covered with tegaderm. patient tolerated procedure well. 1120 released ambulatory.
[2023-04-21 11:27] VITALS: BP 152/71; PULSE 66; RESP 18; TEMP 36.6; O2SAT 95
--- NOTE | 2023-04-21 12:20 | PC.NURSE ---
Patient arrived in wheelchair to the floor. Dressing removed from R breast. Packing in wound wet with mucopurulent drainage. Irrigated the 2 small openings above nipple with NS. Repacked wound with 1/4 plain nugauze. Approx. 6 inches in right opening and 4.5 in left. Wound covered with 4x4 and covered with tegaderm. Patient tolerated procedure well. Took patient down in wheelchair.
--- NOTE | 2023-04-22 11:39 | PC.NURSE ---
Old dressing removed, cleansed with NS. Packed dressing, covered with 4x4. Pt tolerated well.
[2023-04-23 12:51] VITALS: BP 155/64; PULSE 66; RESP 18; TEMP 36.4; O2SAT 96
--- NOTE | 2023-04-23 12:58 | PC.NURSE ---
1149: Pt. to [facility] for daily dressing change. Seated in recliner. VSS. Old dressing removed from right breast. Covered with serous, purulent drainage. Packing removed from tunneled openings x'2 and covered with purulent drainage. Both sites irrigated with saline. Using sterile technique, wounds packed with approximately 6 , 1/4 plain packing. Covered with dry folded 4x4 dressings x's 2 and secured with large opsite dressing. Pt. tolerated with minimal c/o pain. 1201: Pt. d/c'd amb. to home.
--- NOTE | 2023-04-25 15:18 | PC.NURSE ---
Dressing removed from right breast. Cleaned with NS. Repacked with honey soaked packing. Covered with DSD. No c/o pain or discomfort.
[2023-04-26 11:44] VITALS: BP 147/67; PULSE 67; RESP 18; TEMP 36.6; O2SAT 95
[2023-04-30 13:17] VITALS: BP 155/67; PULSE 63; RESP 18; TEMP 36.9; O2SAT 98
--- NOTE | 2023-04-30 13:21 | PC.NURSE ---
1119: Pt to [facility] amb. per self for daily dressing change. Seated in recliner. VSS. Old dressing removed from right breast. Mod. amount purulent drainage observed on 2x2 and alginate dressing. Steri strip packing removed and saturated with large amount purulent drainage with distinct foul odor. Edges of wound well defined. Difficult to observe wound bed, but appears beefy red. Wound irrigated with NSS and Vashe cleanser.Packed with approximately 8 inches of plain 1/4 packing soaked in medi-honey gel. Covered with alginate 2x2, 2x2 gauze pad and sorbent pad. Secured with Medipore tape. Pt. tolerated with occasional c/o discomfort with packing. Denies needs. 1155: Pt. d/c'd amb. to home.
[2023-05-01 11:41] VITALS: BP 153/78; PULSE 72; RESP 16; TEMP 36.4; O2SAT 95
--- NOTE | 2023-05-01 11:43 | PC.NURSE ---
Dressing from rt breast removed. packing removed from wound, old packing purulent like drainage with foul odor;, irrigated wound with vashe wound wash, cleansed around wound with soap and water, applied skin prep. Has 2 small scabbed areas above woound and to the medial aspect of wound, patient said she is scratching area due to itching, instructed to not scratch are also encouraged to make sure skin prep is being applied each dressing change to prevent irritation of skin. packed wound with 1/4 nuguauze with medihoney jell, packed with approx 10 inches of packing, covered with calcium alginate 2x2's and dsd. patient tolerated well. Released ambulatoy
[2023-05-02 11:59] VITALS: BP 158/64; PULSE 66; RESP 20; TEMP 36.4; O2SAT 97
--- NOTE | 2023-05-02 12:02 | PC.NURSE ---
1130: Pt. to [facility] amb. for daily dressing change. Seated in recliner. VSS. Old dressing removed from right breast. Approximately 10 purulent packing removed from breast wound. Wound bed irrigated with Vashe solution. Wound packed with Medihoney soaked 1/4 packing, approximately 10 in length. Covered with Alginate 2x2 dressing and covered with ABD dressing. Secured in place with Medipore tape. Pt. tolerated with minimal c/o discomfort. 1143: Pt. d/c'd amb to home
--- NOTE | 2023-05-03 11:37 | PC.NURSE ---
Dressing removed from right breast. Packing removed. Area washed with soap and water. Area dried and skin prep applied. Medihoney infused packing inserted into wound using sterile technique. Unable to use alginate dressing due to unavailability. 2x2 gauze and ABD dressing applied. Secured with Medipore tape. Patient tolerated with minimul discomfort
--- NOTE | 2023-05-04 13:04 | PC.NURSE ---
rt breast wound cleansed with soap and water, then irrigated with Vasche cleanser. Skin prep applied around breast area. medihoney soaked packing instilled into wound per sterile technique with sterile applicator. Site then covered with alginate dressing and sterile 2x2. Nipple then covered separately with sterile 2x2. Entire area then covered with 1/2 ABD dressing and secured with Medipore tape. Pt tolerated well with no complaints of discomfort.
--- NOTE | 2023-05-05 12:14 | PC.NURSE ---
Patient was sitting in the wheelchair during the dressing change. Dressing was taken off and packing removed. Irrigated with NS and VASHE. Wound packed with 1/4 gauze strips with meta honey, covered by alginate, then covered with 4x4 gauze folded. Skin prep used before placing the 3M medipore tape. Patient tolerated the procedure well. Patient was escorted out to her vehicle via wheelchair.
--- NOTE | 2023-05-07 11:48 | PC.NURSE ---
1125: Pt. to [facility] amb. for daily dressing change. Seated in recliner. Dressing to right breast removed. Mod. amount purulent serous drainage observed. Packing from wound removed and saturated with mod. amount purulent drainage and foul odor noted. Dime sized wound to ant/medial aspect of breast cleansed with Vashe cleanser and wound bed irrigated with same. Wound packed with approximately 10 plain 1/4 inch packing. Covered with 2x2 alginate dressing, 2x2, and half of an ABD dressing. Secured with Micropore tape. Pt. tolerated with minimal c/o. 1135: Pt. d/c'd amb. to home.
--- NOTE | 2023-05-08 12:16 | PC.NURSE ---
1115 arrival ambulatory for dressing change. old dressing removed, moderate amount of greenish very foul smelling drainage on old packing, irrigated wound with irrigation soluthion packed with nugauze/medihoney, covered with calcium algitate and 2x2, secured with dressing, released ambulatory
--- NOTE | 2023-05-09 11:44 | PC.NURSE ---
1122: Pt. to [facility] amb. for daily dressing change. Seated in recliner. Dressing to right breast removed and mod. amount purulent drainage observed. Packing removed from wound and saturated with purulent, foul smelling drainage. Wound bed appearace difficult to visualize due to purulent tissue, but appears dull red. Cleansed and irrigated with Vashe solution. Attempted to aspirate solution dwelling in wound bed, with minimal return. Packed with approximately 10-11 of 1/4 plain packing. Covered with Alginate, 2x2, and ABD. Skin prep applied. Dressings secured with Micropore tape. Pt. tolerated with minimal c/o discomfort. 1138: Pt. d/c'd amb. to home.
--- NOTE | 2023-05-10 11:49 | PC.NURSE ---
1125: Pt. in for daily dressing change. Seated in recliner. Dressing status unchanged from 05/09/23, see notes. Pt. tolerated with min. c/o discomfort. 1135: Pt. d/c'd amb. to home.
== END 2023-05-10 23:59 | disposition home or self-care (01) ==
LOC: INF 07:28
PROVIDERS: PCP Internal Medicine; Visit Provider Internal Medicine Hematology & Oncology
DX: S21.001A Unspecified open wound of right breast, initial encounter (principal)

== ENCOUNTER 2023-05-25 07:17 | Outpatient (RCR) | payer MEDICARE, SELFPAY ==
--- NOTE | 2023-05-11 11:59 | PC.NURSE ---
arrival ambulatory at 1130 am,alert oriented, dressing from rt breast removed, outer dressing had small dime sized are leaking thru dressiing, removed packing from wound above nipple area, noted mucopurulent greenish, foul smelling drainage on old packing wound measureapprox .75 cm in diameter at opening, able to insert cotton tipped applicator approx 3 cm into opening. irrigated wound with vashe wound wash,. cleansed skin surrounding wound with soap and water, dried, applied skin prep to intact skin around wound. repacked wound withapprox 10 inhes of 1/4 nugauze with medihoney jel, followed by calcium alg dressing, 2x2 and small secured with dressing, tolerated well released ambulatory.
--- NOTE | 2023-05-14 14:08 | PC.NURSE ---
1120: Pt. to [facility] amb. for dressing change to right breast. Old dressing removed. Noted to have moderate amount serous drainage leaked through. Packing removed from dime size wound near medial aspect of nipple. Large amount of purulent, foul smelling odor noted. Wound flushed with Vashe cleanser. Packed with approximately 12 of Medi-honey soaked 1/4 packing. Alginate dressing, 2x2 and small ABD applied over packed wound. Secured with Micropore tape. Pt. tolerated with no c/o discomfort. 1135: Pt. d/c'd amb. to home
[2023-05-18 12:57] VITALS: BP 142/88; PULSE 76; RESP 18; TEMP 36.4; O2SAT 93
--- NOTE | 2023-05-18 12:59 | PC.NURSE ---
1120 Arrival ambulatory to chair for dressing change. 1135 dressing removed from rt breast, noted moderate amount of greenish drainage on old dressing and leaking from underneath dressing. packing removed from 1 cm opening above nipple area, noted to be greenish purulent foul smellling, irrigated wound with ns, packed with 1/4 inch nugauze with medihoney jel, intact skin surrounding wound washed with soap and water, applied skin prep, noted reddened irritated area above rt breast area from tape. covered wound opening/packing with calcium alginate, 2x2, abd and secured with tape. patient tolerated well. patient states she is having surgery on 05/28/[address] Richardson, they will be placing a wound vac and patient will have this changed by home health post op discharge.
--- NOTE | 2023-05-21 12:09 | PC.NURSE ---
1120: Pt. to [facility] for dressing change. Seated in recliner. Dressing to right breast removed. Inner portion of dressing saturated in purulent, foul smelling drainage. Packing removed and same drainage observed. Breast cleansed with soap and water. Flushed dime sized wound bed with saline irrigant. Depth of wound approximately 1.5 inches. Packed with medi honey soaked 1/4 plain packing. Covered with alginate dressing, 2x2 and half of an ABD. Secured with micro pore adhesive. Pt. tolerates with no c/o discomfort. 1135: D/c'd amb. to home.
[2023-05-23 11:26] VITALS: BP 136/64; PULSE 71; RESP 18; TEMP 36.3; O2SAT 96
--- NOTE | 2023-05-23 11:28 | PC.NURSE ---
1120 Arrival ambulatory to recliner, dressing to rt wound removed, packing removed, noted moderate amount of foul smelling green mucopurulent drainage on packing and old cover dressing. irrigated wound with NSS, repacked with medihoney 1/4 nugauze, surrounding skin treated with skin prep, 2x2 and calcium alginate followed by small abd, secured in place with paper tape. Patient tolerated well. Patient is scheduled for surgery and wound vac placement on 05/28/23
--- NOTE | 2023-05-25 11:49 | PC.NURSE ---
1108: Pt. to [facility] amb for daily dressing change. Seated in recliner. Old dressing from right breast removed. Small amount serous yellow/green drainage noted on ABD and 4x4. Packing removed and noted to have mod. amount serousang. drainage. Edges of wound well defined with wound bed beefy red. No active drainage noted. Wound flushed with saline and packed with approximately 9 inches of 1/4 plain packing. Covered with 4x4 and ABD. Secured in place with patient's bra. Pt. tolerated with minimal c/o discomfort. Instructed pt. to report to med/surg unit over weekend for dressing changes. Pt. relays understanding. 1115: Pt. d/c'd amb. to home
--- NOTE | 2023-05-25 12:03 | PC.NURSE ---
1125: Pt. to [facility] amb. for daily dressing change. Seated in recliner. Old dressing removed from right breast. ABD with small amount purulent drainage. Packing removed from dime sized open wound to medial aspect of breast with large amount of foul smelling purulent drainage. Wound bed approximately 1.5 inches deep with edges of wound well-defined. Flushed with saline irrigant. Packed with honey soaked 1/4 packing. Covered with alginate, 2x2 dressings and ABD. Secured with micropore tape and large opsite dressing. Pt. tolerated with min. c/o discomfort. 1140: Pt. relays scheduled for surgery on right breast Sunday05/28/[address] Saucedo with a wound vac to be applied post-op with home health nurse. Pt. d/c'd amb. to home.
== END 2023-05-25 11:45 | disposition home or self-care (01) ==
LOC: INF 07:17
PROVIDERS: PCP Internal Medicine; Visit Provider Internal Medicine Hematology & Oncology
DX: S21.001A Unspecified open wound of right breast, initial encounter (principal)

== ENCOUNTER 2023-06-14 14:46 | Outpatient (OUT) | payer MEDICARE, SELFPAY ==
--- NOTE | 2023-06-14 14:49 | US_ITS ---
[facility] [id number] Patient Name: LAWSON GIBBS MRN: [id number] date: 1940 Sex: F Assigned Patient Location: US Current Patient Location: Accession/Order Number: [id number] Exam Date: 06/14/2023 14:54 Report Date: 06/15/2023 07:20 At the request of: BERNY ORTIZ Procedure: US venous doppler LE LT EXAMINATION: US venous doppler LE LT HISTORY: swelling, left leg COMPARISON: No relevant comparison available. TECHNIQUE: Grayscale, color and Doppler ultrasound FINDINGS: Region: Left leg Thrombus: None Flow: Normal Augmentation: Normal Compressibility: Normal US/US venous doppler LE LT IMPRESSION: No deep or superficial vein thrombus identified in the left leg *Exam performed in accordance with [facility] practice guidelines- Peripheral venous ultrasound, September 04, 2009. Electronically authenticated by: MARGIE JOHN Date: 06/15/2023 07:20
== END 2023-06-14 14:47 | disposition home or self-care (01) ==
LOC: US 14:46
PROVIDERS: PCP Internal Medicine; Visit Provider Internal Medicine Hematology & Oncology
DX: R60.0 Localized edema (principal)
CPT/HCPCS: 93971

== ENCOUNTER 2023-11-20 10:19 | Outpatient (OUT) | payer MEDICARE, SELFPAY ==
--- OUTSIDE RECORDS SUMMARY | 2023-11-20 10:42 | XMS_ITS ---
Patient Summarization (C-CDA 2.1 CCD) Created on: November 20, 2023 MichaelNora diaz : 1940 Sex: Female Author Organization Sample organization Care Team Providers Care Air Tube Releaser Name Role Phone PHYSICIAN, DEFAULT Admitting Unavailable PHYSICIAN, DEFAULT Attending Unavailable UNKNOWN, PROVIDER Admitting Unavailable UNKNOWN, PROVIDER Attending Unavailable SELF, REFERRED Referring Unavailable SELF, REFERRED Primary Care Unavailable Ball DO, Noble E Primary Care Provider Gayle Wade Unavailable Checo RODRIGEZ Attending Unavailable BALL, NOBLE Referring Unavailable Ball, Noble Unavailable TAMLYN ., RITU Attending Unavailable TAMLYN ., RITU Admitting Unavailable BALL, DR NEWSOME Primary Care Unavailable TAMLYN ., RITU Attending Unavailable TAMLYN ., RITU Admitting Unavailable BALL, DR NEWSOME Primary Care Unavailable BALL, DR NEWSOME Primary Care Unavailable HIGHLANDER, LOREN Abad Admitting Unavailable HIGHLANDER, LOREN Abad Attending Unavailable TAMLYN ., RITU Attending Unavailable TAMLYN ., RITU Admitting Unavailable BALL, DR NEWSOME Primary Care Unavailable TAMLYN ., RITU Attending Unavailable TAMLYN ., RITU Admitting Unavailable BALL, DR NEWSOME Primary Care Unavailable TAMLYN ., RITU Attending Unavailable BALL, DR NEWSOME Primary Care Unavailable TAMLYN ., RITU Admitting Unavailable TAMLYN ., RITU Attending Unavailable BALL, DR NEWSOME Primary Care Unavailable TAMLYN ., RITU Admitting Unavailable TAMLYN ., RITU Attending Unavailable TAMLYN ., RITU Admitting Unavailable BALL, DR NEWSOME Primary Care Unavailable TAMLYN ., RITU Attending Unavailable TAMLYN ., RITU Admitting Unavailable BALL, DR NEWSOME Primary Care Unavailable BALL, DR NEWSOME Primary Care Unavailable BALL, DR NEWSOME Consulting Unavailable BALL, DR NEWSOME Attending Unavailable BALL, DR NEWSOME Admitting Unavailable WEST, DR MARGIE Andrews Consulting Unavailable BALL, DR NEWSOME Primary Care Unavailable BALL, DR NEWSOME Consulting Unavailable BALL, DR NEWSOME Attending Unavailable BALL, DR NESWOME Admitting Unavailable TAMLYN ., RITU Attending Unavailable TAMLYN ., RITU Admitting Unavailable BALL, DR NEWSOME Primary Care Unavailable TAMLYN ., RITU Attending Unavailable TAMLYN ., RITU Admitting Unavailable BALL, NOBLE Primary Care Unavailable STEFANIE GAYTAN Attending Unavailable DO Noble Ferguson Primary Care Provider MD Luis Angel Saucedo Attending Provider [phone] DO Noble Ferguson Primary Care Provider MD Luis Angel Saucedo Attending Provider [phone] Luis Angel Saucedo Admitting Unavailable Luis Angel Saucedo Attending Unavailable Noble Ferguson Primary Care Unavailable Noble Ferguson Primary Care Unavailable Luis Angel Saucedo Admitting Unavailable Luis Angel Saucedo Attending Unavailable Noble Ferguson Primary Care Unavailable Luis Angel Saucedo Admitting Unavailable Luis Angel Saucedo Attending Unavailable Allergies Allergy Classification Reported Allergen(s) Allergy Type Date of Onset Reaction(s) Facility (7 sources) Penicillins; 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: [PENICILLINS] Drug allergy (disorder) 04-28-20 14 [facility] Repository (7 sources) Sulfonamides (Antibiotic); 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: [SULFA (SULFONAMIDE ANTIBIOTICS)] Drug allergy (disorder) 06-11-18 94 [facility] Repository (17 sources) Penicillins Drug Allergy 05-15-20 14 Unknown [facility] (17 sources) Sulfonamides (Antibiotic) Drug Allergy 05-15-20 14 Unknown [facility] (20 sources) guaiFENesin Drug Allergy Unknown [facility] Other (20 sources) penicillAMINE Drug Allergy 08-10-19 24 Unknown, [facility] (20 sources) Sulfacetamide / Sulfur Drug Allergy Unknown [facility] Other (15 sources) Dextromethorphan Drug Allergy 07-22-19 14 Unknown [facility] Other (15 sources) guaiFENesin Drug Allergy 07-22-19 14 Unknown [facility] Other (1 source) Penicillin Drug Allergy Unknown [facility] Other (15 sources) Sulf-10 Drug allergy Unknown [facility] Other (1 source) patient allergy list reviewed by nurse or physicia Propensity to adverse reactions 11-29-20 13 Comment:Done [facility] Other (1 source) Allergies Reconciled Propensity to adverse reactions Unknown [facility] Other (2 sources) Sulfacetamide; 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: [sulfacetamide] Drug Allergy 08-10-19 [facility] (2 sources) Sulfur; 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: [sulfur] Drug Allergy 08-10-19 [facility] (1 source) penicillAMINE Drug Allergy 08-10-19 [facility] Repository (1 source) Penicillins Drug allergy (disorder) 08-10-19 [facility] Rep[facility] (1 source) Sulfonamides (Antibiotic) Drug allergy (disorder) 08-10-19 [facility] Repository Encounters Encounter Date Encounter Type Care Provider Facility Start: 08-28-2023 End: 08-28-2023 ambulatory Noble Ball Facility:[facility] Start: 08-28-2023 End: 08-28-2023 ambulatory DO Noble Ball Work Phone: [facility] Work Phone: Start: 08-28-2023 End: 08-28-2023 Discharged Recurring DO Noble Ball Work Phone: [facility] Work Phone: Start: 08-10-2023 End: 08-10-2023 Patient encounter procedure DO Noble Ball Work Phone: [facility] Work Phone: Start: 08-06-2023 End: 08-06-2023 Patient encounter procedure DO Noble Ball Work Phone: [facility] Work Phone: Start: 08-06-2023 Non-patient / Non-visit DO Prasanna parra Marty Work Phone: [facility] Work Phone: Start: 07-16-2023 End: 07-16-2023 ambulatory Noble Ferguson Other [facility] Other Start: 07-16-2023 Office outpatient vi sit 25 minutes Noble Ferguson [facility] Start: 07-13-2023 End: 07-13-2023 ambulatory Noble Ferguson Other [facility] Other Start: 07-13-2023 Telephone encounter Noble Ferguson [facility] Start: 07-04-2023 End: 07-04-2023 ambulatory Noble Ferguson Other [facility] Other Start: 07-04-2023 Nursing evaluation o f patient and report Noble Ferguson [facility] Start: 05-30-2023 End: 05-30-2023 ambulatory Noble Ferguson Other [facility] Other Start: 05-30-2023 Nursing evaluation o f patient and report Noble Ferguson [facility] Start: 05-28-2023 Telephone encounter Noble TALAVERA [facility] Start: 05-28-2023 End: 05-28-2023 ambulatory Luis Angel Saucedo Facility:[facility] Start: 05-28-2023 End: 05-28-2023 Admission to same day surgery center DO Noble Ball Work Phone: [facility] [place] Start: 05-28-2023 End: 05-28-2023 ambulatory DO Noble Ball Work Phone: [facility] Work Phone: Start: 05-17-2023 End: 05-17-2023 ambulatory Noble Ferguson Facility:[facility] Start: 05-17-2023 End: 05-17-2023 ambulatory DO Noble Ball Work Phone: [facility] Work Phone: Start: 05-17-2023 End: 05-17-2023 Patient encounter procedure DO Noble Ball Work Phone: [facility] Work Phone: Start: 05-15-2023 Registered Recurring DO Benjam in Ball Work Phone: [facility] Work Phone: Start: 04-26-2023 End: 04-26-2023 ambulatory Gayle Wade Other [facility] Other Start: 04-26-2023 Nursing evaluation o f patient and report Gayle Wade [facility] Start: 04-11-2023 End: 04-11-2023 ambulatory [facility] Start: 04-10-2023 End: 04-10-2023 ambulatory Noble Ferguson Other [facility] Other Start: 04-10-2023 Telephone encounter Noble Ferguson [facility] Start: 03-13-2023 End: 03-13-2023 ambulatory Noble Ferguson Other [facility] Other Start: 03-13-2023 Patient encounter procedure Noble Ferguson [facility] Start: 02-15-2023 End: 02-15-2023 ambulatory Noble Ferguson Other [facility] Other Start: 02-15-2023 Nursing evaluation o f patient and report Noble Ferguson [facility] Start: 01-26-2023 End: 01-26-2023 ambulatory Noble Ferguson Other [facility] Other Start: 01-26-2023 Telephone encounter Noble Ferguson [facility] Start: 01-21-2023 End: 01-21-2023 ambulatory Noble Ferguson Other [facility] Other Start: 01-21-2023 Telephone encounter Noble Ferguson [facility] Start: 01-17-2023 End: 01-17-2023 ambulatory Noble Ferguson Other [facility] Other Start: 01-17-2023 Telephone encounter Noble Ferguson [facility] Start: 01-15-2023 End: 01-15-2023 ambulatory Noble Ferguson Other [facility] Other Start: 01-15-2023 Nursing evaluation o f patient and report Noble Ferguson [facility] Start: 01-02-2023 End: 01-02-2023 ambulatory Noble Ferguson Other [facility] Other Start: 01-02-2023 Telephone encounter Noble Ferguson [facility] Start: 12-27-2022 End: 12-27-2022 ambulatory Noble Ferguson Other [facility] Other Start: 12-27-2022 Telephone encounter Noble Ferguson [facility] Start: 12-26-2022 End: 12-26-2022 ambulatory Noble Ferguson Other [facility] Other Start: 12-26-2022 Telephone encounter Noble [facility] Start: 12-25-2022 End: 12-25-2022 ambulatory Noble Ferguson Other [facility] Other Start: 12-25-2022 Office outpatient vi sit 25 minutes Noble Ferguson [facility] Start: 12-14-2022 End: 12-14-2022 ambulatory Noble Ferguson Other [facility] Other Start: 12-14-2022 Nursing evaluation o f patient and report Noble Ferguson [facility] Start: 11-13-2022 End: 11-13-2022 ambulatory Noble Ferguson Other [facility] Other Start: 11-13-2022 Nursing evaluation o f patient and report Noble Ferguson [facility] Start: 11-09-2022 ambulatory RITU Rainey Facility: [facility] Start: 11-07-2022 ambulatory RITU Rainey Facility: [facility] Start: 11-02-2022 End: 11-03-[address] NOBLE FERGUSON Facility:[facility] Start: 10-30-2022 End: 10-31-2022 ambulatory RITU TAMLYN . Facility:[facility] Start: 10-27-2022 End: 10-28-2022 ambulatory RITU TAMLYN . Facility:[facility] Start: 10-25-2022 End: 10-26-2022 ambulatory RITU TAMLYN . Facility:[facility] Start: 10-23-2022 End: 10-24-2022 ambulatory RITU TAMLYN . Facility:[facility] Start: 10-20-2022 End: 10-21-2022 ambulatory RITU TAMLYN . Facility:[facility] Start: 10-18-2022 End: 10-19-2022 ambulatory RITU TAMLYN . Facility:[facility] Start: 10-16-2022 End: 10-17-2022 ambulatory RITU LINDALYN . Facility:[facility] Start: 10-12-2022 Nursing evaluation o f patient and report Noble Ferguson [facility] Start: 10-12-2022 End: 10-13-2022 ambulatory RITU LINDALYN . [facility] Other Start: 09-27-2022 End: 09-27-2022 ambulatory Noble Ferguson Other [facility] Other Start: 09-27-2022 Office outpatient vi sit 25 minutes Noble Ferguson [facility] Start: 09-12-2022 End: 09-12-2022 ambulatory Noble Ferguson Other [facility] Other Start: 09-12-2022 Nursing evaluation o f patient and report Noble LERMA [facility] Start: 08-23-2022 End: 08-23-2022 ambulatory Noble Ferguson Other [facility] Other Start: 08-23-2022 Telephone encounter Noble TALAVERA [facility] Start: 08-22-2022 ambulatory Checo RODRIGEZ Facility : [facility] Start: 08-17-2022 End: 08-18-[address] NOBLE FERGUSON [facility] Other Start: 08-17-2022 Office outpatient vi sit 15 minutes Noble Ferguson [facility] Start: 08-17-2022 Telephone encounter Noble TALAVERA [facility] Start: 08-10-2022 End: 08-10-2022 ambulatory Noble Ferguson Other [facility] Other Start: 08-10-2022 Office outpatient vi sit 15 minutes Noble Ferguson [facility] Start: 07-11-2022 End: 07-11-2022 ambulatory Gayle Wade Other [facility] Other Start: 07-11-2022 Nursing evaluation o f patient and report Gayle Sheri [facility] Start: 01-26-2022 End: 01-27-[address] NOBLE FERGUSON Facility: Start: 01-24-2022 Adult health examination Solomon last Ferguson Other [facility] Other Start: 10-19-2021 End: 10-19-2021 ambulatory Genny Winters PA-C Work Phone: Hematology/Oncology Comment on above: Encounter for screen ing mammogram for malignant neoplasm of breast (Primary Dx) Start: 10-19-2021 End: 10-19-2021 Patient encounter procedure Genny Winters PA-C Work Phone: [facility] Start: 09-22-2021 Telephone encounter Stephen jimenes MD Work Phone: Hematology/Oncology Comment on above: Orders Start: 05-20-2019 Preoperative cardiovascular examination Noble Ferguson Other [facility] Other Start: 09-03-2018 End: 09-04-2018 Patient encounter procedure PROVIDER UNKNOWN [facility] Start: 08-08-2018 End: 08-09-2018 Patient encounter procedure DEFAULT PHYSICIAN [facility] Goals Date Patient Goal Desired Activity /State Immunizations Immunization Date Immunization Notes Care Provider Sukhwinder plata 03-26-2023 influenza virus vaccine, unspecified formulation DO Noble Ferguson Work Phone: [facility] 03-26-2023 influenza, high dose seasonal, preservative-free Noble Ferguson Other [facility] Other 03-06-2022 influenza virus vaccine, split virus (incl. purified surface antigen) Noble Ferguson Other [facility] Other 03-06-2022 influenza virus vaccine, unspecified formulation DO Noble Ferguson Work Phone: [facility] 03-07-2021 COVID-19 vaccine, ag e 12+ yr (PFIZER-BIONTECH - PURPLE TOP) Genny CAMPOS-Adrianne Work Phone: [facility] 03-01-2021 influenza virus vaccine, split virus (incl. purified surface antigen) Noble Ferguson Other [facility] Other 03-01-2021 influenza virus vaccine, unspecified formulation DO Noble Ferguson Work Phone: [facility] 09-07-2020 COVID-19 vaccine, ag e 12+ yr (PFIZER-BIONTECH - PURPLE TOP) Genny CAMPOS-C Work Phone: [facility] 08-16-2020 COVID-19 vaccine, ag e 12+ yr (PFIZER-BIONTECH - PURPLE TOP) Genny CAMPOS-C Work Phone: [facility] 03-01-2020 influenza virus vaccine, split virus (incl. purified surface antigen) Noble Ferguson Other [facility] Other 03-01-2020 influenza virus vaccine, unspecified formulation DO Noble Ferguson Work Phone: [facility] 03-18-2019 influenza virus vaccine, split virus (incl. purified surface antigen) Noble Ferguson Other [facility] Other 03-18-2019 influenza virus vaccine, unspecified formulation DO Noble Ferguson Work Phone: [facility] 03-11-2018 influenza virus vaccine, split virus (incl. purified surface antigen) Noble Ferguson Other [facility] Other 03-11-2018 influenza virus vaccine, unspecified formulation DO Noble Ferguson Work Phone: [facility] 03-11-2018 Seasonal trivalent influenza vaccine, adjuvanted, preservative free Genny Vianey PA-C Work Phone: [facility] 03-27-2017 influenza virus vaccine, split virus (incl. purified surface antigen) Noble Ferguson Other [facility] Other 03-27-2017 influenza virus vaccine, unspecified formulation DO Noble Ferguson Work Phone: [facility] 03-27-2017 influenza, high dose seasonal, preservative-free Genny Vianey PA-C Work Phone: [facility] 03-21-2016 influenza virus vaccine, split virus (incl. purified surface antigen) Noble Ferguson Other [facility] Other 03-21-2016 influenza virus vaccine, unspecified formulation DO Noble Ferguson Work Phone: [facility] 03-21-2016 influenza, high dose seasonal, preservative-free Genny Vianey PA-C Work Phone: [facility] 03-24-2015 influenza virus vaccine, split virus (incl. purified surface antigen) Noble Ferguson Other [facility] Other 03-24-2015 influenza virus vaccine, unspecified formulation DO Noble Ferguson Work Phone: [facility] 03-24-2015 pneumococcal conjuga te vaccine, 13 valent Noble Ferguson Other [facility] 03-24-2015 pneumococcal Conjuga te, unspecified formulation; 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: [Need for prophylactic vaccination against Streptococcus pneumoniae (pneumococcus)] Noble Ferguson Other [facility] Other 04-22-2013 tetanus and diphther ia toxoids, adsorbed, preservative free, for adult use (5 Lf of tetanus toxoid and 2 Lf of diphtheria toxoid) Noble Ferguson Other [facility] 04-28-2009 pneumococcal polysaccharide vaccine, 23 yousif Ferguson Other [facility] Medications Current Medications Medication Drug Class(es) Dates Sig (Normalized) Sig (Original) 30 ACTUAT fluticasone furoate 0.2 MG/ACTUAT / umeclidinium 0.0625 MG/ACTUAT / vilanterol 0.025 MG/ACTUAT Dry Powder Inhaler [Trelegy] (14 sources) Start: 12-06-2022 Start: 12-06-2022 take 1 puff(s) by in halation once daily Trelegy Ellipta 200-62.5-25 MCG/ACT 1 puff Inhalation Once a day Nov, Active Start: 12-06-2022 take 1 puff(s) by in halation once daily Trelegy Ellipta 200-62.5-25 MCG/ACT 1 puff Inhalation Once a day for 30 days Nov, Active acetaminophen 500 mg oral tablet (20 sources) Start: 05-17-2023 take 1 tablet by mouth every six hours Acetaminophen (Tylenol Ex Str Arthritis Pain) 500 mg Tablet Active 500 MG PO Q6H May 17, 2023 1:00am take 1 capsule by mouth every si x hours Tylenol 325 MG 1 capsule as needed Orally every 6 hrs Active take 1 tablet by eveline th every six hours as needed acetaminophen (TYLENOL EXTRA STRENGTH) 5 00 mg tablet Take 500 mg by mouth every 6 hours as needed. 0 Active Comment on above: Take 500 mg by mouth every 6 hours as needed. [id number] 200 actuat albuterol 0.09 mg/actuat metered dose inhaler (20 sources) beta2-Adrenergic Agonist Start: 05-17-2023 Albuterol Sulfate Active 2 PUFF INHALATION As Directed May 17, 2023 1:00am take 1 puff(s) by in halation every four hours as needed Albuterol Sulfate HFA 108 (90 Base) MCG/ACT 1 puff as needed Inhalation every 4 hrs Active take 1 puff(s) by in halation every four hours as needed Albuterol Sulfate HFA 108 (90 Base) MCG/ACT 1 puff as needed Inhalation every 4 hrs Active take 1 puff(s) by in halation every four hours as needed Albuterol Sulfate HFA 108 (90 Base) MCG/ACT 1 puff as needed Inhalation every 4 hrs Active albuterol HFA (V ENTOLIN HFA) 90 mcg/actuation inhaler Ventolin HFA 90 mcg/actuation aerosol inhaler 0 Active Comment on above: Ventolin HFA 90 mcg/ actuation aerosol inhaler alendronic acid 70 mg oral tablet (15 sources) Bisphosphonate take 1 tablet by mouth once daily Alendronate Sodium 70 MG 1 tablet 30 minutes before the first food, beverage or medicine of the day with plain water Orally Active amLODIPine 10 mg oral tablet (20 sources) Dihydropyridine Calcium Channel Melanie Start: 04-24-20 take 10 mg by mouth once daily in the morning Amlodipine Active 10 MG PO Every morning April 24, 2023 1:00am Comment on above: Take 10 mg by mouth once daily. aspirin 81 mg chewable tablet (20 sources) Platelet Aggregation Inhibitor, Nonsteroidal Anti-inflammatory Drug Start: 04-24-20 take 81 mg by mouth once daily Aspirin Active 81 MG PO Daily April 24, 2023 1:00am take 1 tablet by eveline every twenty-four hours aspirin, enteric coated (ASPIRIN, ENTERIC COATED) 81 mg EC tablet Take 81 mg by mouth q 24 HR. 0 Active Comment on above: Take 81 mg by mouth q 24 HR. atorvastatin 40 mg oral tablet (20 sources) HMG-CoA Reductase Inhibitor Start: 3 take 40 mg by mouth once daily Atorvastatin Active 40 MG PO Daily April 24, 2023 1:00am Comment on above: Take 40 mg by mouth once daily. Eejlps-Ckzoyoik-Qoo C-E-Herbal (3 sources) Start: 3 take 2 tablets by mouth once daily Qmqien-Rtghciry-Crg C-E-Herbal Active 2 TAB PO Daily after supper April 24, 2023 1:00am Start: 04-24-2023 take 2 tablets by mo [facility] once daily Hgpbrg-Ezrfcxhd-Ubb C-E-Herbal Active 2 TAB PO Daily after supper April 24, 2023 12:00am bumetanide 0.5 mg oral tablet (4 sources) Loop Diuretic Start: 12-26-2022 take 1 tablet by mouth every twenty-four hours Bumetanide 0.5 MG 1 tablet Orally Once a day for 5 days Dec, Active calcium carbonate 1500 mg / cholecalciferol 0.01 mg oral tablet (3 sources) Vitamin D Start: 04-24-2023 take 1 tablet by mouth once daily Calcium Carbonate-Vitami n D3 (Calcium 600 + D(3)) 600 mg-10 mcg (400 unit) Tablet Active 1 TAB PO Daily April 24, 2023 1:00am Calcium-Vitamin D 500 MG (20 sources) take 1 tablet by eveline th twice daily at mealtime Calcium-Vitamin D 500 MG 1 tablet with f ood Orally Twice a day Active doxycycline hyclate 100 mg oral capsule (20 sources) Tetracycline-class Drug Start: 04-10-2023 take 1 capsule by mouth every twelve hours Doxycycline Hyclate 100 MG 1 capsule Orally Twice a day for 10 days Mar, Active Start: 08-10-2022 take 1 capsule by mo [facility] twice daily Doxycycline Hyclate 100 MG 1 capsule Orally twice daily for 7 days Aug, Active Fiber (20 sources) Fiber - as direc katia Orally Active Rcpsonofhlz-Qbqthtdmy-Sbghdi er (3 sources) Start: 04-24-2023 Ogdifpaqltz-Xhdvjlvps-Oszjpq er (Trelegy Ellipta) 200-62.5-25 mcg Blister With Device Active 1 INH INHALATION Daily April 24, 2023 1:00am Start: 04-24-2023 Fluticasone-Um eclidin-Vilanter (Trelegy Ellipta) 200-62.5-25 mcg Blister With Device Active 1 INH INHALATION Daily April 24, 2023 12:00am inulin 2000 mg chewable tablet (5 sources) Start: 04-24-2023 take 1 tablet by mouth twice daily Inulin (Fiber Gummies) 2 gram Tablet,Chewable Active 2 GM PO Twice daily April 24, 2023 1:00am inulin (FIBER MMIES ORAL) Take by mouth. 0 Active Comment on above: Take by mouth. 24 hr isosorbide mononitrate 60 mg extended release oral tablet (20 sources) Nitrate Vasodilator Start: 04-24-20 take 60 mg by mouth once daily in the morning Isosorbide Mononitrate Active 60 MG PO Every morning April 24, 2023 1:00am Comment on above: Take 60 mg by mouth once daily. levothyroxine sodium 0.088 mg oral tablet (20 sources) l-Thyroxine Start: 04-24-20 23 take 88 ug by mouth once daily in the morning Levothyroxine Active 88 MCG PO Every morning April 24, 2023 1:00am Levothyroxine So dium 88 MCG TAKE 1 TABLET DAILY ON EMPTY STOMACH Active Levothyroxine 10 0 mcg cap Take 75 mcg by mouth once daily. 0 Active Comment on above: Take 75 mcg by mouth once daily. lisinopril 20 mg oral tablet (20 sources) Angiotensin Converting Enzyme Inhibitor Start: 3 take 20 mg by mouth once daily in the morning Lisinopril Active 20 MG PO Every morning April 24, 2023 1:00am Comment on above: Take 20 mg by mouth once daily. temazepam 30 mg oral capsule (20 sources) Benzodiazepine Start: 3 End: 4 take 30 mg by mouth once daily at bedtime Temazepam Active 30 MG PO Daily at bedtime August 03, 2023 10:00am Start: 09-07-2022 take 1 capsule by mo uth once daily at bedtime Temazepam 30 mg TAKE ONE CAPSULE BY MOUTH ONCE DAILY AT BEDTIME for Aug, Active Start: 09-24-2020 take 1 capsule by mo uth once daily at bedtime temazepam (RESTORIL) 30 mg cap Take 30 mg by mouth daily at bedtime. 0 09/24/2020 Active Comment on above: Take 30 mg by mouth daily at bedtime. trelegy ellipta 200-62.5-25 mcg/act aerosol powder breath activated (5 sources) Start: 12-07-19 take 1 puff(s) by inhalation once daily Trelegy Ellipta 200-62.5-25 MCG/ACT 1 puff Inhalation Once a day Nov, Active vitamin b12 1 mg/ml injectable solution (20 sources) Vitamin B12 Start: 05-17-20 inject 1000 ug by intramuscular injection every month Cyanocobalamin (Vitamin B-12) (Vitamin B-12) 1,000 mcg/mL Solution Active 1000 MCG IM every month May 17, 2023 1:00am Vitamin B12 3000 MCG/ML as directed Sublingual Active Vitamin B12 3000 MCG/ML as directed Sublingual Active Completed/Discontinued Medications Medication Drug Class(es) Dates Sig (Normalized) Sig (Original) albuterol 0.833 mg/ml / ipratropium bromide 0.167 mg/ml inhalation solution (11 sources) Anticholinergic, beta2-Adrenergic Agonist Start: 09-16-2021 ipratropium-albute rol (DUONEB) 0.5 mg-3 mg(2.5 mg base)/3 mL nebu USE 1 VIAL IN NEBULIZER EVERY 6 HOURS NEEDED 0 09/16/2021 Active take 20-100 ug by in halation every six hours as needed Combivent Respimat 20-100 MCG/ACT 1 puff as needed Inhalation every 6 hrs Active Comment on above: USE 1 VIAL IN NEBULI ZER EVERY 6 HOURS NEEDED B-12 - up to 1000 mcg (20 sources) Start: 07-04-2023 B-12 - up to 1000 mcg Jun, 1000 mcg Start: 05-30-2023 B-12 - up to 1 000 mcg May, 1000 mcg Start: 04-26-2023 B-12 - up to 1 000 mcg Apr, 1000 mcg Start: 03-26-2023 B-12 - up to 1 000 mcg Mar, 1000 mcg Start: 02-15-2023 B-12 - up to 1 000 mcg Feb, 1000 mcg Start: 01-15-2023 B-12 - up to 1 000 mcg Jan, 1000 mcg Start: 12-14-2022 Start: 12-14-2022 B-12 - up to 1 000 mcg Dec, 1000 mcg Start: 11-13-2022 Start: 11-13-2022 B-12 - up to 1 000 mcg Nov, 1000 mcg Start: 10-12-2022 Start: 10-12-2022 B-12 - up to 1 000 mcg October, 1000 mcg Start: 09-12-2022 Start: 09-12-2022 B-12 - up to 1 000 mcg Sep, 1000 mcg Start: 08-10-2022 Start: 08-10-2022 B-12 - up to 1 000 mcg Aug, 1000 mcg Start: 07-11-2022 Start: 07-11-2022 B-12 - up to 1 000 mcg 31 Cuong, 2023 1000 mcg budesonide 0.25 mg/ml inhalation suspension (1 source) Corticosteroid Start: 09-21-2021 budesonide (PULMICORT) 0.5 mg/2 mL nebulizer solution USE 2ML IN NEBULIZER TWICE A DAY 0 09/21/2021 Active Comment on above: USE 2ML IN NEBULIZER TWICE A DAY Calcium (1 source) Phosphate Binder, Calcium take 1200 mg by mouth once daily CALCIUM ORAL Take 1,200 mg by mouth once daily. 0 Active Comment on above: Take 1,200 mg by eveline th once daily. Cyanocobalamin (Vitamin B-12) (Vitamin B-12) 100 mcg/mL Solution (3 sources) Start: 04-24-2023 End: 05-17-2023 Cyanocobalamin (Vitamin B-12) (Vitamin B-12) 100 mcg/mL Solution Discontinued 100 MCG SOLUTION April 24, 2023 1:00am May 17, 2023 11:42am Start: 04-24-2023 End: 05-17-2023 Cyanocobalamin (Vitamin B-12 ) (Vitamin B-12) 100 mcg/mL Solution Discontinued 100 MCG SOLUTION April 24, 2023 12:00am May 17, 2023 10:42am fluocinonide 0.5 mg/ml topical solution (2 sources) Corticosteroid Start: 08-27-2020 fluocinonide ( LIDEX) 0.05 % external solution APPLY TO SCALP NEEDED FOR ITCHINESS 0 08/27/2020 Active Comment on above: APPLY TO SCALP NE EDED FOR ITCHINESS ketoconazole 20 mg/ml medicated shampoo (2 sources) Azole Antifungal Start: 08-27-2020 ketoconazole (NIZORAL) 2 % shampoo APPLY WASH TO SCALP EVERY OTHER DAY. LET SIT FOR 5 MINUTES BEFORE RINSING. 0 08/27/2020 Active Comment on above: APPLY WASH TO SCALP EVERY OTHER DAY. LET SIT FOR 5 MINUTES BEFORE RINSING. Triamcinolone (20 sources) Corticosteroid Start: 12-29-2020 Start: 12-29-2020 Kenalog -40 mg Dec, 40 mg Start: 11-27-2019 Start: 11-27-2019 Kenalog -40 mg Nov, 40 mg Payers Date Payer Category Payer Self-pay [id number] 2014 Private Health Insurance [facility] AARP SUPPLEMENT [id number] 2014-Present [phone] [address] [place] [address] Indemnity [id number] 1996 Medicare MEDICARE MEDICAR E A AND B [id number] 1996-Present [phone] [address] [address] [place] [address] Medicare [id number] 1959 Medicare [id number] 1959 Unknown [id number] 1938 Unknown [id number] 2.16.840.1.108944.3.579.2 .647 1938 Unknown [id number] 2.16.840.1.184729.3.579.2 .647 1938 Unknown [id number] 2.16.840.1.598855.3.579.2 .727 1938 Unknown [id number] 2.16.840.1.713396.3.579.2 .593 1938 Unknown [id number] 2.16.840.1.563131.3.579.2 .593 1938 Unknown [id number] 2.16.840.1.814709.3.579.2 .593 1938 Unknown [id number] 2.16.840.1.465461.3.579.2 .593 1938 Unknown [id number] 2.16.840.1.486593.3.579.2 .593 1938 Unknown [id number] 2.16.840.1.511392.3.579.2 .593 1938 Unknown [id number] 2.16.840.1.803070.3.579.2 .593 1938 Unknown [id number] 2.16.840.1.260536.3.579.2 .593 1938 Unknown [id number] 2.16.840.1.372417.3.579.2 .593 1938 Unknown [id number] 2.16.840.1.182931.3.579.2 .593 1938 Unknown [id number] 2.16.840.1.891801.3.579.2 .593 1938 Unknown [id number] 2.16.840.1.155616.3.579.2 .593 1938 Unknown [id number] 2.16.840.1.408501.3.579.2 .593 Unknown Unknown [id number] 2.16.840.1.602709.3.579.2 .531 Unknown [id number] 2.16.840.1.223234.3.579.2 .531 Unknown [id number] 2.16.840.1.517313.3.579.2 .531 Plan of Treatment Date Care Activity Detail Author Start: 05-28-2023 Aerobic Culture Aerobic Culture [facility] Start: 05-28-2023 Anaerobic Culture Anaerobic Culture [facility] Start: 05-28-2023 Microscopic observat ion [Identifier] in Unspecified specimen by Gram stain [facility] Start: 05-28-2023 End: 05-28-2023 [facility] Start: 04-14-2022 DIABETES SCREEN DIABETES SCREEN [facility] Start: 02-09-2022 Influenza vaccination INFLUENZ A (Season Ended) [facility] Start: 07-07-2021 COVID-19 VACCINE (4 - Booster for Pfizer series) COVID-19 VACCINE (4 - Booster for Pfizer series) [facility] Start: 06-11-2021 ADVANCE DIRECTIVE DISCUSSION ADVANCE DIRECTIVE DISCUSSION [facility] Start: 2003 BONE DENSITY BONE DENSITY [facility] Start: 2003 PNEUMOVAX AGE 65 AND OVER WITH 5YR LOOKBACK (#1) PNEUMOVAX AGE 65 AND OVER WITH 5YR LOOKBACK (#1) [facility] Start: 1988 SHINGRIX VACCINE (1 of 2) SHINGRIX VACCINE (1 of 2) [facility] Start: 1957 SHINGRIX VACCINE (1 of 2) SHINGRIX VACCINE (1 of 2) [facility] Start: 1957 Urine microalbumin profile DTAP,TDAP,TD (1 - Tdap) [facility] Start: 1944 PNEUMOCOCCAL: 65+ (1 - PCV) PNEUMOCOCCAL: 65+ (1 - PCV) [facility] Bacteria identified in Unspecified specimen by Aerobe culture [facility] Bacteria identified in Unspecified specimen by Anaerobe culture [facility] Patient Education How to Change a Wet to Dry Dressing Negative Pressure Wound Therapy [facility] Work Phone: Patient referral [facility] Work Phone: End: 11-18-2022 Screening mammography bi 2-view breast inc cad KAREN SCREENING Radiology Routine Encounter for screening mammogram for malignant neoplasm of breast 1 Occurrences starting 10/19/2021 until 11/18/2022 [facility] Work Phone: Comment on above: 1 Occurrences starti ng 10/19/2021 until 11/18/2022 [facility] Problems Active Problems Problem Classification Problem Date Documented Da te Episodic/Chronic Acute bronchitis (4 sources) Acute bronchitis; 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: [Acute bronchitis, unspecified] Episodic Anal and rectal conditions (20 sources) Perirectal abscess; 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: [Rectal abscess] Episodic Cancer of breast (20 sources) Malignant neoplasm of female breast; 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: [Malignant neoplasm of unspecified site of unspecified female breast] Onset: 11-18-2014 03-15-2016 Chronic Cancer of breast (20 sources) Personal history of malignant neoplasm of breast; 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: [History of malignant neoplasm of breast] Onset: 04-07-2015 10-19-2015 Episodic Chronic kidney disease (20 sources) Chronic kidney disease stage 3B ; 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: [Stage 3b chronic kidney disease] 08-09-2023 Chronic Chronic obstructive pulmonary disease and bronchiectasis (20 sources) Chronic obstructive pulmonary disease, unspecified; 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: [Mucopurulent chronic bronchitis] Onset: 09-03-2018 Resolved: 03-01-2021 Chronic Complications of surgical procedures or medical care (11 sources) Other complications of procedures, not elsewhere classified, initial encounter; 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: [Non-healing surgical wound] Onset: 11-02-2022 Episodic Coronary atherosclerosis and other heart disease (20 sources) Atherosclerotic heart disease of [place] coronary artery with unstable angina pectoris; 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: [Coronary arteriosclerosis] Onset: 09-03-2018 Chronic Deficiency and other anemia (2 sources) Anemia due to chronic blood loss; 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: [Iron deficiency anemia secondary to blood loss (chronic)] Onset: 08-30-2015 Chronic Deficiency and other anemia (20 sources) Pernicious anemia; 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: [Vitamin B12 deficiency anemia due to intrinsic factor deficiency] 08-06-2023 Episodic Deficiency and other anemia (12 sources) Vitamin B12 deficiency anemia due to intrinsic factor deficiency Episodic Disorders of lipid metabolism (20 sources) Pure hypercholesterolemia; 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: [Familial hypercholesterolemia] Onset: 10-15-2018 Chronic Diverticulosis and diverticulitis (1 source) Diverticulitis of colon; 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: [Diverticulitis of colon (without mention of hemorrhage)] Onset: 06-25-2014 Chronic Esophageal disorders (7 sources) Gastro-esophageal reflux disease with esophagitis; 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: [Gastroesophageal reflux disease with esophagitis without hemorrhage] Chronic Essential hypertension (20 sources) Essential (primary) hypertension; 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: [Essential hypertension] Onset: 09-03-2018 Chronic Genitourinary symptoms and ill-defined conditions (20 sources) Polyuria; 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: [Polyuria] Onset: 08-30-2015 Episodic Immunizations and screening for infectious disease (2 sources) Vaccination given; 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: [Encounter for immunization] Episodic Miscellaneous mental health disorders (1 source) Primary insomnia; 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: [Primary insomnia] 08-03-2023 Chronic Nonmalignant breast conditions (2 sources) Fibrocystic disease of breast; 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: [Diffuse cystic mastopathy of unspecified breast] Chronic Nonmalignant breast conditions (20 sources) Cellulitis of breast; 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: [Mastitis without abscess] Onset: 08-22-2022 Episodic Nutritional deficiencies (2 sources) Vitamin D deficiency; 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: [Vitamin D deficiency, unspecified] Onset: 11-08-2017 Chronic Osteoarthritis (20 sources) Osteoarthritis of right knee joint; 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: [Unilateral primary osteoarthritis, right knee] Onset: 06-11-1959 Chronic Osteoporosis (2 sources) Primary osteoporosis; 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: [Age-related osteoporosis without current pathological fracture] Chronic Other aftercare (1 source) 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; 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: [HALF-WAY (CURRENT) USE OF ASPIRIN] Onset: 09-03-2018 Episodic Other aftercare (2 sources) Long-term current use of drug therapy; 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: [Other parts counterman (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] Episodic Other circulatory disease (20 sources) Carotid bruit; 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: [Other specified symptoms and signs involving the circulatory and respiratory systems] Episodic Other circulatory disease (3 sources) Cardiovascular symptoms; 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: [Other symptoms involving cardiovascular system] Episodic Other circulatory disease (2 sources) Other specified symptoms and signs involving the circulatory and respiratory systems; 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: [Right carotid bruit] Episodic Other connective tissue disease (20 sources) Radial styloid tenosynovitis; 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: [Radial styloid tenosynovitis [de [place]]] Episodic Other connective tissue disease (20 sources) Necrotizing fasciitis; 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: [Necrotizing fasciitis] Episodic Other connective tissue disease (1 source) Necrotizing fasciitis; 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: [Necrotizing fasciitis] Episodic Other diseases of veins and lymphatics (14 sources) Peripheral venous insufficiency; 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: [Unspecified venous (peripheral) insufficiency] Onset: 11-01-2018 Episodic Other diseases of veins and lymphatics (2 sources) Venous insufficiency (chronic) (peripheral) Episodic Other ear and sense organ disorders (1 source) Impacted cerumen, unspecified ear; 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: [Impacted cerumen] 08-10-2023 Episodic Other female genital disorders (2 sources) Other specified conditions associated with female genital organs and menstrual cycle; 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: [Oth cond assoc w female genital organs and menstrual cycle] Episodic Other gastrointestinal disorders (2 sources) Irritable bowel syndrome with diarrhea; 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: [Irritable bowel syndrome with diarrhea] Onset: 02-12-2018 Chronic Other injuries and conditions due to external causes (1 source) Other injury of unspecified body region, initial encounter Episodic Other injuries and conditions due to external causes (2 sources) History of fall; 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: [History of falling] Episodic Other lower respiratory disease (1 source) Shortness of breath; 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: [SHORTNESS OF BREATH] Onset: 09-03-2018 Episodic Other lower respiratory disease (1 source) Other forms of dyspnea Episodic Other nervous system disorders (18 sources) Abnormal sensation; 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: [Other disturbances of skin sensation] Episodic Other nervous system disorders (1 source) Other disturbances of skin sensation Episodic Other non-epithelial cancer of skin (20 sources) Basal cell carcinoma of face; 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: [Basal cell carcinoma of skin of unspecified parts of face] Onset: 11-10-2019 Episodic Other non-traumatic joint disorders (2 sources) Pain in right hip joint; 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: [Pain in right hip] Episodic Other nutritional; endocrine; and metabolic disorders (2 sources) Obesity; 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: [Obesity, unspecified] Chronic Other nutritional; endocrine; and metabolic disorders (2 sources) Simple obesity ; 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: [Other obesity due to excess calories] Onset: 10-27-2016 Chronic Other nutritional; endocrine; and metabolic disorders (1 source) Obese class I; 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: [Body mass index 32.0-32.9, adult] Onset: 10-27-2016 Chronic Other nutritional; endocrine; and metabolic disorders (1 source) Body mass index 30+ - obesity; 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: [Body mass index 31.0-31.9, adult] Onset: 10-27-2016 Chronic Other screening for suspected conditions (not mental disorders or infectious disease) (9 sources) Abnormal result of other cardiovascular function study; 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: [Patient encounter status] Onset: 09-21-2014 Episodic Pneumonia (except that caused by tuberculosis or sexually transmitted disease) (4 sources) Infective pneumonia; 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: [Pneumonia due to other specified infectious organisms] Onset: 10-21-2018 Episodic Residual codes; unclassified (20 sources) Insomnia; 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: [Insomnia, unspecified] 08-09-2023 Episodic Residual codes; unclassified (1 source) Family history of malignant neoplasm of breast; 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: [FAMILY HX MALIG NEOPLASM OF BREAST] Onset: 08-22-2022 Episodic Residual codes; unclassified (1 source) Family history of malignant neoplasm of other organs or systems; 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: [FAM HX MALIG NEOPLASM OTH ORGN/SYS] Onset: 08-22-2022 Episodic Residual codes; unclassified (18 sources) Edema of lower extremity; 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: [Localized edema] Episodic Residual codes; unclassified (4 sources) Localized edema Episodic Residual codes; unclassified (1 source) Requires influenza virus vaccination; 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: [Need for prophylactic vaccination and inoculation, Influenza] Episodic Residual codes; unclassified (2 sources) Postmenopausal state; 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: [Asymptomatic menopausal state] Episodic Residual codes; unclassified (2 sources) Postprocedural state finding; 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: [Other specified postprocedural states] Episodic Residual codes; unclassified (2 sources) Insomnia, unspecified; 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: [Insomnia] Episodic Residual codes; unclassified (3 sources) H/O: radiation exposure; 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: [Personal history of irradiation] 04-24-2023 Episodic Residual codes; unclassified (3 sources) Personal history of irradiation; 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: [Personal history of irradiation, presenting hazards to health] 05-15-2023 Episodic Screening and history of mental health and substance abuse codes (4 sources) Personal history of nicotine dependence; 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: [History of tobacco use] Onset: 11-08-2017 Episodic Skin and subcutaneous tissue infections (5 sources) Local infection of the skin and subcutaneous tissue, unspecified; 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: [LOCAL INFECT SKIN SUBQ TISSUE UNS] Onset: 08-17-2022 Episodic Spondylosis; intervertebral disc disorders; other back problems (20 sources) Lumbar spondylosis; 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: [Spondylosis without myelopathy or radiculopathy, lumbar region] Chronic Spondylosis; intervertebral disc disorders; other back problems (2 sources) Low back pain; 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: [Low back pain, unspecified] Episodic Substance-related disorders (20 sources) Tobacco user; 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: [Nicotine dependence, cigarettes, in remission] Chronic Systemic lupus erythematosus and connective tissue disorders (1 source) Autoimmune disease; 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: [Autoimmune disease, not elsewhere classified] Onset: 06-11-1959 Chronic Thyroid disorders (20 sources) Hypothyroidism, unspecified; 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] Onset: 09-03-2018 Chronic Unclassified (1 source) R94.39 ABNORMAL RESULT OF OTHER CARDIOVASCULAR FUNCTION STUDY Onset: 09-03-2018 Unclassified (1 source) R9439 ABNORMAL RESULT OF OTHER CARDIOVASCULAR FUNCTION STUDY Onset: 09-03-2018 Unclassified (1 source) Long-term current use of drug therapy; 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: [Long-term (current) use of other medications] Onset: 11-22-2018 Unclassified (1 source) Identification of preoperative respiratory status; 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: [Encounter for preprocedural respiratory examination] Onset: 12-01-2013 Unclassified (1 source) Other complications of procedures, not elsewhere classified, initial encounter; 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: [Other complications of procedures, not elsewhere classified, initial encounter] Onset: 05-28-2023 Unclassified (1 source) Encounter for preprocedural laboratory examination; 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: [Encounter for preprocedural laboratory examination] Onset: 05-17-2023 Past or Other Problems Problem Classification Problem Date Documented Da te Episodic/Chronic Abdominal pain (2 sources) Left lower quadrant pain; 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: [Left lower quadrant pain] Resolved: 12-26-2021 Episodic Chronic kidney disease (3 sources) Chronic kidney disease; 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: [Stage 3a chronic kidney disease N18.31] Deficiency and other anemia (2 sources) Anemia; 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: [Anemia, unspecified] Onset: 11-29-2018 Episodic Esophageal disorders (20 sources) Esophageal disorders; 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: [Gastroesophageal reflux disease with esophagitis without hemorrhage] Malaise and fatigue (1 source) Malaise and fatigue; 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: [Other malaise and fatigue] Onset: 07-17-2018 Episodic Neoplasms of unspecified nature or uncertain behavior (4 sources) Neoplasm of uncertain behavior of skin; 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: [Neoplasm of uncertain behavior of skin] Onset: 05-01-2013 Resolved: 11-28-2019 Episodic Nonspecific chest pain (2 sources) Chest pain; 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: [Chest pain, unspecified] Onset: 07-25-2018 Episodic Other aftercare (1 source) Other parts counterman (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; 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: [OTH HIDE SPREADER CURRENT DRUG THERAPY] Onset: 01-27-2022 Episodic Other gastrointestinal disorders (1 source) Digestive symptom; 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: [Other symptoms involving digestive system] Onset: 08-30-2015 Episodic Other lower respiratory disease (2 sources) Dyspnea; 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: [Other forms of dyspnea] Onset: 04-16-2018 Episodic Other skin disorders (1 source) Sebaceous cyst; 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: [Sebaceous cyst] Onset: 04-07-2015 Episodic Other skin disorders (2 sources) Alopecia; 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: [Nonscarring hair loss, unspecified] Resolved: 11-29-2020 Episodic Other upper respiratory infections (2 sources) Acute maxillary sinusitis; 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: [Acute maxillary sinusitis, unspecified] Onset: 07-22-2013 Episodic Peritonitis and intestinal abscess (1 source) Abscess of peritoneum; 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: [Peritoneal abscess] Onset: 06-25-2014 Episodic Procedures Date Procedure Procedure Detail Performing Clinician Start: 05-28-2023 Debridement DO Olivia Ferguson Work Phone: Start: 10-05-2018 Screening mammography B geraldine Ferguson Other Start: 01-05-2016 Pre-surgery evaluation Noble Ferguson Other Start: 01-05-2016 Preoperative cardiov ascular examination Noble Ferguson Other Depression screening Olivia Ferguson Other Results Test Name Value Interpretation Reference Range Facility ANTIMICROBIAL SUSCEPT-ANAERO BEon 05-28-2023 FINAL REPORT SEE NOTE Normal [facility] Comment on above: Order Comment: Speci men Type: MICROBIAL ISOLATE Ordering Facility: [facility] Address: [address] [place] [id number] Result Comment: Prev otella bergensis Organism identified by client INTERPRETIVE INFORMATION: Anaerobe Susceptibility Panel Units = ug/mL ANAMIC Interpretive Information See Note At the present time there are no CLSI guidelines for performance and/or interpretation of susceptibility testing for anaerobes other than Bacteroides fragilis group by the broth microdilution method. Unable to provide interpretation for BETTYE values. Susceptibility performed by non-standardized methodology. Interpret results with caution. Antimicrobial susceptibility testing could not be completed due to poor organism growth using the CLSI approved test method. RUSTY M Beta-Lactamase Neg Performed By: [facility] [address] [place], [place] [id number] Slot Floor Attendant: Paulino العراقي MD, PhD CLIA Number: [id number] Performed By: #### S USANA #### [facility] CLIA [id number] [address] [place] [address] #### [id number] #### [facility] CLIA [id number] [address] [place] [address] [place] Aerobic Cultureon 05-28-2023 Aerobic Culture Comment Tissue C S R breast Light Normal Skin Aries 2 Days Comment Tissue C S R breast ORGANISM: Prevotella bergensis (O:PREBER) Comments Sent to [facility] for Testing Quantity of Growth Light Growth Antimicrobial susceptibility testing could not be completed due to poor organism growth using the CLSI approved test method. Please see scanned report located in the Laboratory/Scanned Reports section of the EMR. Comment Tissue C S R breast Gram Stain Result No Bacteria Seen PERFORMED BY: [place] [id number] PATHOLOGIST TIER IN JUDY RASMUSSEN M.D. Normal [facility] Comment on above: Performed By: #### A ERC #### [address] Bacterial susceptibility weller el BETTYE (Isol)on 05-28-2023 BLACT Negative Normal [facility] Comment on above: Order Comment: Speci men Type: MICROBIAL ISOLATE Ordering Facility: [facility] Address: [address] [place] [address] Performed By: #### S USANA #### [facility] CLIA [id number] [address] [place] [address] #### [id number] #### [facility] CLIA [id number] [address] [place] [address] [place] Microorganism identified Cx Nom (Unsp spec) [id number] Abnormal [facility] Comment on above: Order Comment: Speci men Type: MICROBIAL ISOLATE Ordering Facility: [facility] Address: [address] [place] [address] Result Comment: Prev otella bergensis Susceptibility results have been completed by FRANKLYN. Performed By: #### S USANA #### [facility] CLIA [id number] [address] [place] [address] #### [id number] #### [facility] CLIA [id number] [address] [place], [place] [id number] [place] Basic Metabolic Panelon 12- Anion gap [Moles/Vol] 12.2 mmol/L Normal 6.0-15.0 [facility] Comment on above: Performed By: #### B MP #### [address] Calcium [Mass/Vol] 9.3 mg/dL Normal 8.6-10.3 [facility] Comment on above: Performed By: #### B MP #### [address] Chloride [Moles/Vol] 109 mmol/L High 98-107 [facility] Comment on above: Performed By: #### B MP #### [address] CO2 [Moles/Vol] 22.9 mmol/L Normal 21.0-31.0 [facility] Comment on above: Performed By: #### B MP #### [address] Creatinine [Mass/Vol] 0.89 mg/dL Normal 0.60-1.20 [facility] Comment on above: Performed By: #### B MP #### [address] Creatinine Clr Calc Pharmacy 44.56 Normal [facility] [facility] Comment on above: Result Comment: PERF ORMED BY: [place] [id number] PATHOLOGIST TIER IN JUDY RASMUSSEN M.D. Performed By: #### B MP #### [address] GFR/1.73 sq M.predicted MDRD (S/P/Bld) [Vol rate/Area] mL/min/{1.73_m2} Normal [facility] Comment on above: Performed By: #### B MP #### [address] Glucose [Mass/Vol] 113 mg/dL High 70-100 [facility] Comment on above: Result Comment: [place] Glucose Reference Range is dependent on time and content of last meal. Glucose of more than 200 mg/dL in a nonstressed, ambulatory subject supports the diagnosis of Diabetes Mellitus. ADA recommended reference range Performed By: #### B MP #### [address] [place] [address] [place] Potassium [Moles/Vol] 4.1 mmol/L Normal 3.5-5.1 [facility] Comment on above: Performed By: #### B MP #### [facility] [address] Sodium [Moles/Vol] 140 mmol/L Normal 136-145 [facility] Comment on above: Performed By: #### B MP #### [facility] [address] Urea nitrogen [Mass/Vol] 25 mg/dL Normal 7-25 [facility] Comment on above: Performed By: #### B MP #### [facility] [address] Calcium [Mass/volume] in Ser um or PlasmaOrdered By: Shine Lea on 05-28-2023 Calcium [Mass/Vol] 9.3 mg/dL 8.6-10.3 [facility] Carbon dioxide, total [Moles /volume] in Serum or PlasmaOrdered By: Shine Lea on 05-28-2023 CO2 [Moles/Vol] 22.9 mmol/L 21.0-31.0 [facility] Chloride [Moles/volume] in S tyron or PlasmaOrdered By: Shine Lea on 05-28-2023 Chloride [Moles/Vol] 109 mmol/L 98-107 [facility] Creatinine [Mass/volume] in Serum or PlasmaOrdered By: Shine Lea on 05-28-2023 Creatinine [Mass/Vol] 0.89 mg/dL 0.60-1.[address] [facility] Glucose [Mass/volume] in Ser um or PlasmaOrdered By: Shine Lea on 05-28-2023 Glucose [Mass/Vol] 113 mg/dL 70-100 [facility] Comment on above: ADA recommended refe rence rangeRandom Glucose Reference Range is dependent on time and content of last meal. Glucose of more than 200 mg/dL in a nonstressed, ambulatory subject supports the diagnosis of Diabetes Mellitus. [place] 05-28-2023 L Specimen: [id number] Received: 05/28/23 Status: HAMZAH Barajas Num: [id number] Spec Type: Surgical Subm Dr: Luis Angel Saucedo MD Tissues: A Debridement-Skin/Ot her Than Skin (POD RT BRST) Procedures: ISIDORO, Jay/Savanna L3 Age/ Patient Sex Location Account Attending Physician Nora Parnell 83/F DC [id number] Luis Angel Saucedo MD SPEC NUM: [id number] RECD: 05/28/23 STATUS: HAMZAH BARAJAS NUM: [id number] NEDA: 05/28/23 [facility] DR: Luis Angel Saucedo MD ENTERED: 05/28/[address] [facility] [address]: SPEC TYPE: Surgical DEPT: S ENTERED BY: [id number] RECV BY: [id number] ORDERED: ISIDORO Gross/Micro L3 ORDERED: Jay CHAUDHRY/Micro L3 Pathological Diagnosis Skin and soft tissue, right breast, debridement excision: - Marked chronic nonhealing wound with patchy fibrin clot and fibrin exudates covering congested vascular granulation tissue with patchy mildly associated acute and chronic inflammation, also compatible with underlying mildly persistent secondary infection, otherwise without any other specific histomorphologic changes observed Clinical Information Right breast wound Gross Description Received in formalin labeled with the patient's name, date of and products of debridement (right breast per requisition) is a 3.0 x 3.0 x 1.3 cm aggregate of red-booker rubbery tissue. Entirely submitted in one cassette labeled A1. Microscopic Description One H E slide reviewed. The microscopic examination confirms the diagnosis. Specimen: [id number] Received: 05/28/23 Status: HAMZAH [place] Num: [id number] Spec Type: Surgical Subm Dr: Luis Angel Saucedo MD Tissues: A Debridement-Skin/Ot her Than Skin (POD RT BRST) Procedures: Jay CHAUDHRY/Savanna L3 Patient: Nora Parnell [id number] (Continued) Specimen: [id number] Received: 05/28/23 (Continued) Signed (signatur e on file) Zacarias Hunt MD 05/29/23 1548 Specimen: [id number] Received: 05/28/23 Status: HAMZAH Barajas Num: [id number] Spec Type: Surgical Subm Dr: Luis Angel Saucedo MD Tissues: A Debridement-Skin/Ot her Than Skin (POD RT BRST) Procedures: Jay CHAUDHRY/Savanna L3 Patient: Nora Parnell [id number] (Continued) Specimen: [id number] Received: 05/28/23 (Continued) CPT Codes 15050 Specimen: [id number] Received: 05/28/23 Status: HAMZAH Barajas Num: [id number] Spec Type: Surgical Subm Dr: Luis Angel Saucedo MD Tissues: A Debridement-Skin/Ot her Than Skin (POD RT BRST) Procedures: Jay CHAUDHRY/Savanna L3 Patient: Nora Parnell [id number] (Continued) Signed (signatur e on file) Zacarias Hunt MD 05/29/23 1548 Normal [facility] Microorganism identified Cx Nom (Unsp spec)on 05-28-2023 CULTURE, ORGANISM ID ANAEROBE [id number] Abnormal [facility] Comment on above: Order Comment: Speci men Type: MICROBIAL ISOLATE Ordering Facility: [facility] Address: [address] [place], [place] [address] Result Comment: Prev otella bergensis Performed By: #### 1 1475-1 #### [facility] CLIA [id number] [facility] DESK [id number] [place] [address] [place] No Panel InformationOrdered By: Shine Lea on 05-28-2023 Estimated GFR (CKD-EPI) > 60.0 mL/Min [facility] Creatinine Clearance (Chem 44.56 [facility] Potassium [Moles/volume] in Serum or PlasmaOrdered By: Shine Lea on 05-28-2023 Potassium [Moles/Vol] 4.1 mmol/L 3.5-5.[address] [facility] Serum or plasma anion gap de terminationOrdered By: Shine Lea on 05-28-2023 Anion gap [Moles/Vol] 12.2 mmol/L 6.0-15.0 [facility] Sodium [Moles/volume] in Ser um or PlasmaOrdered By: Shine Lea on 05-28-2023 Sodium [Moles/Vol] 140 mmol/L 136-145 [facility] Urea nitrogen [Mass/volume] in Serum or PlasmaOrdered By: Shine Lea on 05-28-2023 Urea nitrogen [Mass/Vol] 25 mg/dL 7-25 [facility] Basic Metabolic Panelon 120 Anion gap [Moles/Vol] Not performed Normal 6.0-15.0 [facility] Comment on above: Performed By: #### B MP, CBC #### [address] Calcium [Mass/Vol] 9.8 mg/dL Normal 8.6-10.3 [facility] Comment on above: Result Comment: PERF ORMED BY: [address] [place] [address] PATHOLOGIST TIER IN JDUY RASMUSSEN M.D. Performed By: #### B MP, CBC #### [facility] [address] [place] [address] [place] Chloride [Moles/Vol] 108 mmol/L High 98-107 [facility] Comment on above: Performed By: #### B MP, CBC #### [facility] [address] [place] [address] [place] CO2 [Moles/Vol] 25.5 mmol/L Normal 21.0-31.0 [facility] Comment on above: Performed By: #### B MP, CBC #### [place] [address] [place] Creatinine [Mass/Vol] 0.99 mg/dL Normal 0.60-1.20 [facility] Comment on above: Performed By: #### B MP, CBC #### [place] [address] [place] GFR/1.73 sq M.predicted MDRD (S/P/Bld) [Vol rate/Area] 55.878 mL/min/{1.73_m2} Normal [facility] Comment on above: Performed By: #### B MP, CBC #### [address] Glucose [Mass/Vol] 101 mg/dL High 70-100 [facility] Comment on above: Result Comment: [place] Glucose Reference Range is dependent on time and content of last meal. Glucose of more than 200 mg/dL in a nonstressed, ambulatory subject supports the diagnosis of Diabetes Mellitus. ADA recommended reference range Performed By: #### B MP, CBC #### [facility] [address] [place] [address] [place] Potassium Normal 3.5-5.1 [facility] Comment on above: Result Comment: Spec imen hemolyzed, callback initiated if needed Performed By: #### B MP, CBC #### [facility] [address] [place] [address] [place] Sodium [Moles/Vol] 141 mmol/L Normal 136-145 [facility] Comment on above: Performed By: #### B MP, CBC #### [facility] [address] Urea nitrogen [Mass/Vol] 19 mg/dL Normal 7-25 [facility] Comment on above: Performed By: #### B MP, CBC #### [facility] [address] Basophils Auto (Bld) [#/Vol] Ordered By: Luis Angel Saucedo on 05-17-2023 Basophils (Bld) [#/Vol] 0.1 10*3/uL 0.0-0.2 [facility] Basophils/100 WBC Auto (Bld) Ordered By: Luis Angel Saucedo on 05-17-2023 Basophils/100 WBC (Bld) 0.7 % . [facility] Calcium [Mass/volume] in Ser um or PlasmaOrdered By: Luis Angel Saucedo on 05-17-2023 Calcium [Mass/Vol] 9.8 mg/dL 8.6-10.3 [facility] Carbon dioxide, total [Moles /volume] in Serum or PlasmaOrdered By: Luis Angel Saucedo on 05-17-2023 CO2 [Moles/Vol] 25.5 mmol/L 21.0-31.0 [facility] Chloride [Moles/volume] in S tyron or PlasmaOrdered By: Luis Angel Saucedo on 05-17-2023 Chloride [Moles/Vol] 108 mmol/L 98-107 [facility] Complete Blood Count Auto Di ffon 05-17-2023 Basophils (Bld) [#/Vol] 0.1 10*3/uL Normal 0.0-0.2 [facility] Comment on above: Result Comment: PERF ORMED BY: [place] [address] PATHOLOGIST TIER IN JUDY RASMUSSEN M.D. Performed By: #### B MP, CBC #### [facility] [address] Basophils/100 WBC (Bld) 0.7 % Normal . T [facility] Comment on above: Performed By: #### B MP, CBC #### [facility] [address] [place] [address] [place] Eosinophils (Bld) [#/Vol] 0.2 10*3/uL Normal 0.0-0.45 [facility] Comment on above: Performed By: #### B MP, CBC #### [facility] [address] [place] [id number] [place] Eosinophils/100 WBC (Bld) 1.6 % Normal . [facility] Comment on above: Performed By: #### B MP, CBC #### [facility] [address] Erythrocyte distribution width (RBC) [Ratio] 14.3 % Normal 11.9-15.3 [facility] Comment on above: Performed By: #### B MP, CBC #### [address] Hematocrit (Bld) [Volume fraction] 36.6 % Normal 34.0-46.4 [facility] Comment on above: Performed By: #### B MP, CBC #### [place] [address] [place] Hemoglobin (Bld) [Mass/Vol] 12.2 g/dL Normal 11.8-15.4 [facility] Comment on above: Performed By: #### B MP, CBC #### [place] [address] [place] Lymphocytes (Bld) [#/Vol] 1.5 10*3/uL Normal 1.00-4.8 [facility] Comment on above: Performed By: #### B MP, CBC #### [place] [id number] [place] Lymphocytes/100 WBC (Bld) 14.6 % Normal . [facility] Comment on above: Performed By: #### B MP, CBC #### [address] MCH (RBC) [Entitic mass] 29.4 pg Normal 24.7-34.3 [facility] Comment on above: Performed By: #### B MP, CBC #### [address] MCV (RBC) [Entitic vol] 88.1 fL Normal 80-100 [facility] Comment on above: Performed By: #### B MP, CBC #### [address] Mean Corpuscular HGB Conc 33.3 g/dL Normal 32.0-35.0 [facility] Comment on above: Performed By: #### B MP, CBC #### [address] Monocytes (Bld) [#/Vol] 1.0 10*3/uL High 0.0-0.8 [facility] Comment on above: Performed By: #### B MP, CBC #### [address] Monocytes/100 WBC (Bld) 10.3 % Normal . [facility] Comment on above: Performed By: #### B MP, CBC #### [place] [address] [place] Neutrophils (Bld) [#/Vol] 7.3 10*3/uL Normal 1.8-7.7 [facility] Comment on above: Performed By: #### B MP, CBC #### [address] Neutrophils/100 WBC (Bld) 72.8 % Normal . [facility] Comment on above: Performed By: #### B MP, CBC #### [address] NRBC% 0.1 /100{WBC} Normal 0-0.5 [facility] Comment on above: Performed By: #### B MP, CBC #### [address] Platelet mean volume (Bld) [Entitic vol] 10.6 fL Normal 6.3-10.7 [facility] Comment on above: Performed By: #### B MP, CBC #### [facility] [address] Platelets (Bld) [#/Vol] 228 10*3/uL Normal 150-450 [facility] Comment on above: Performed By: #### B MP, CBC #### [facility] [address] RBC (Bld) [#/Vol] 4.16 10*6/uL Normal 3.60-5.00 [facility] Comment on above: Performed By: #### B MP, CBC #### [facility] [address] WBC (Bld) [#/Vol] 10.1 10*3/uL Normal 3.8-11.6 [facility] Comment on above: Performed By: #### B MP, CBC #### [facility] [address] Creatinine [Mass/volume] in Serum or PlasmaOrdered By: Luis Angel Saucedo on 05-17-2023 Creatinine [Mass/Vol] 0.99 mg/dL 0.60-1.[address] [facility] ECG 12 lead ECGon 05-17-2023 ECG 12 lead ECG [facility] Main [place] [address] [place] [address] Electrocardiograph Report Signed Patient: Nora Parnell MR#: [id number] : 1940 Acct:[id number] Age/Sex: 83 / F ADM Date: 05/17/23 Loc: Room: Type: [facility] Attending Dr: Luis Angel Saucedo MD Ordering Provider: Luis Angel Saucedo MD Date of Service: 05/17/2312/31/1002 ECG/ECG 12 lead ECG: pst Copies to: Test Reason : Blood Pressure : / mmHG Vent. Rate : 063 BPM Atrial Rate : 063 BPM P-R Int : 176 ms QRS Dur : 088 ms QT Int : 406 ms P-R-T Axes : 055 049 033 degrees QTc Int : 415 ms Normal sinus rhythm Nonspecific T wave abnormality RSR' pattern in V1 Abnormal ECG When compared with ECG of 26-CARMEN-2016 13:12, No significant change was found Confirmed by ARPAN ELLSWORTH [facility], STEFANIE ([id number]) on 05/17/2023 3:19:51 PM Referred By: DIANA Electronically Signed By:STEFANIE RECINOS MD [facility] Transcribed By: ANI Signed By Stefanie Recinos MD, [facility] 05/17/23 1519 Normal [facility] Eosinophils Auto (Bld) [#/Vo l]Ordered By: Luis Angel Saucedo on 05-17-2023 Eosinophils (Bld) [#/Vol] 0.2 10*3/uL 0.0-0.45 [facility] Eosinophils/100 WBC Auto (Bl d)Ordered By: Luis Angel Saucedo on 05-17-2023 Eosinophils/100 WBC (Bld) 1.6 % . [facility] Erythrocyte distribution wid th Auto (RBC) [Ratio]Ordered By: Luis Angel Saucedo on 05-17-2023 Erythrocyte distribution width (RBC) [Ratio] 14.3 % 11.9-15.3 [facility] Glucose [Mass/volume] in Ser um or PlasmaOrdered By: Luis Angel Saucedo on 05-17-2023 Glucose [Mass/Vol] 101 mg/dL 70-100 [facility] Comment on above: ADA recommended refe rence rangeRandom Glucose Reference Range is dependent on time and content of last meal. Glucose of more than 200 mg/dL in a nonstressed, ambulatory subject supports the diagnosis of Diabetes Mellitus. Hematocrit Auto (Bld) [Volum e fraction]Ordered By: Luis Angel Saucedo on 05-17-2023 Hematocrit (Bld) [Volume fraction] 36.6 % 34.0-46.4 [facility] Hemoglobin [Mass/volume] in BloodOrdered By: Luis Angel Saucedo on 05-17-2023 Hemoglobin (Bld) [Mass/Vol] 12.2 g/dL 11.8-15.4 [facility] Leukocytes [#/volume] correc katia for nucleated erythrocytes in Blood by Automated counOrdered By: Luis Angel Saucedo on 05-17-2023 WBC corrected for nucl RBC Auto (Bld) [#/Vol] 10.1 10*3/uL 3.8-11.6 [facility] Lymphocytes Auto (Bld) [#/Vo l]Ordered By: Luis Angel Saucedo on 05-17-2023 Lymphocytes (Bld) [#/Vol] 1.5 10*3/uL 1.00-4.8 [facility] Lymphocytes/100 WBC Auto (Bl d)Ordered By: Luis Angel Saucedo on 05-17-2023 Lymphocytes/100 WBC (Bld) 14.6 % . [facility] MCH Auto (RBC) [Entitic mass ]Ordered By: Luis Angel Saucedo on 05-17-2023 MCH (RBC) [Entitic mass] 29.4 pg 24.7-34.3 [facility] MCHC Auto (RBC) [Mass/Vol]Or dered By: Luis Angel Saucedo on 05-17-2023 MCHC (RBC) [Mass/Vol] 33.3 g/dL 32.0-35.0 [facility] MCV Auto (RBC) [Entitic vol] Ordered By: Luis Angel Saucedo on 05-17-2023 MCV (RBC) [Entitic vol] 88.1 fL 80-100 [facility] Monocytes Auto (Bld) [#/Vol] Ordered By: Luis Angel Saucedo on 05-17-2023 Monocytes (Bld) [#/Vol] 1.0 10*3/uL 0.0-0.8 [facility] Monocytes/100 WBC Auto (Bld) Ordered By: Luis Angel Saucedo on 05-17-2023 Monocytes/100 WBC (Bld) 10.3 % . [facility] Neutrophils Auto (Bld) [#/Vo l]Ordered By: Luis Angel Saucedo on 05-17-2023 Neutrophils (Bld) [#/Vol] 7.3 10*3/uL 1.8-7.7 [facility] Neutrophils/100 WBC Auto (Bl d)Ordered By: Luis Angel Saucedo on 05-17-2023 Neutrophils/100 WBC (Bld) 72.8 % . [facility] No Panel InformationOrdered By: Luis Angel Saucedo on 05-17-2023 Estimated GFR (CKD-EPI) 55.878 mL/Min [facility] Creatinine Clearance (Chem N/A [facility] Nucleated erythrocytes [Pres ence] in Blood by Automated countOrdered By: Luis Angel Saucedo on 05-17-2023 Nucleated RBC Auto Ql (Bld) 0.1 /100{WBC} 0-0.5 [facility] Platelet mean volume Auto (B ld) [Entitic vol]Ordered By: Luis Angel Saucedo on 05-17-2023 Platelet mean volume (Bld) [Entitic vol] 10.6 fL 6.3-10.7 [facility] Platelets Auto (Bld) [#/Vol] Ordered By: Luis Angel Saucedo on 05-17-2023 Platelets (Bld) [#/Vol] 228 10*3/uL 150-450 [facility] Potassium [Moles/volume] in Serum or PlasmaOrdered By: Luis Angel Saucedo on 05-17-2023 Potassium [Moles/Vol] See comment 3.5-5.1 [facility] Comment on above: Specimen hemolyzed, callback initiated if needed RBC Auto (Bld) [#/Vol]Ordere d By: Luis Angel Saucedo on 05-17-2023 RBC (Bld) [#/Vol] 4.16 10*6/uL 3.60-5.00 [facility] Serum or plasma anion gap de terminationOrdered By: Luis Angel Saucedo on 05-17-2023 Anion gap [Moles/Vol] TNP [facility] Comment on above: Test not performed Sodium [Moles/volume] in Ser um or PlasmaOrdered By: Luis Angel Saucedo on 05-17-2023 Sodium [Moles/Vol] 141 mmol/L 136-145 [facility] Urea nitrogen [Mass/volume] in Serum or PlasmaOrdered By: Luis Angel Saucedo on 05-17-2023 Urea nitrogen [Mass/Vol] 19 mg/dL 7-25 [facility] WBC Auto (Bld) [#/Vol]Ordere d By: Luis Angel Saucedo on 05-17-2023 WBC (Bld) [#/Vol] 10.1 10*3/uL 3.8-11.6 [facility] Office Visiton 04-11-2023 Follow-up visit [id number] Nora Parnell 1940 F Date Provider Department Center 04/11/2023 Zaida-STEFANIE GAYTAN [facility] Family History Problem Relation Age of Onset No Known Problems Mother No Known Problems Father Family Status - Relation Status Age at Mother Father Level of Service:64961 ME OFFICE/OUTPATIENT ESTABLISHED LOW MDM 20-29 MIN Reason for Visit and Comments: Coronary Artery Disease [187] Hypertension [324536] Normal [facility] 36on 01-04-2023 36 Patient needs an appointment Normal [facility] Physician Referralon 023 Physician Referral [phone] [id number] AD#[email or web address]:127 Normal [facility] CULTURE WOUNDon 08-17-2022 CULTURE WOUND Culture Observations: LIGHT GROWTH OF NORMAL SKIN ARIES. Culture Observations: NO GROWTH OF ANAEROBES AT 72 HOURS. Normal [facility] Comment on above: Performed By: #### W OUNDCX #### [facility] [address] [place] [address] Dr. Michael Hunt MG MAMM DIAGNOSTIC 3D GERARDO CA Don 08-17-2022 MG MAMM DIAGNOSTIC 3D GERARDO CAD Patient: NORA PARNELL. Exam Date: 08/17/2022 : 1940 Gender:F Ordering : DR NOBLE FERGUSON D.O. Admission #: [id number] Family : Order #: [id number] CLICK HERE TO VIEW EXAM RADIOLOGY REPORT PROCEDURE: MAMMOGRAM DIAGNOSTIC 3D BILATERAL CAD, 08/17/2022, 13:48 ULTRASOUND BREAST RIGHT LIMITED, 08/17/2022, 13:27 COMPARISON: MG MAMM DIAGNOSTIC 3D GERARDO CAD, 10/11/2020. MG MAMM SCREEN 3D GERARDO CAD, 10/12/2021. INDICATIONS: Abscess of breast Calculator Name NCI Breast Cancer Risk Assessment Tool 5 Year Breast Cancer Risk n/a% Lifetime Breast Cancer Risk n/a% Personal Breast Cancer Yes, right side breast CA, 75 Personal Ovarian Cancer No Treatments lumpectomy, radiation therapy Family Cancers Sister with breast cancer at age 60; Sister with breast cancer at age 61; Mother with liver/uterine cancer at age 64. LOCATION: [facility] BREAST COMPOSITION: Scattered areas fibroglandular density. FINDINGS: DIAGNOSTIC CATEGORY 3--PROBABLY BENIGN FINDING. THE FOLLOWING FINDING(S) HAS A HIGH PROBABILITY OF A BENIGN ETIOLOGY: Ultrasound demonstrates in the area the patient's palpable mass and pain a 2.3 x 1.8 x 2.1 cm area mildly lobular hypoechogenicity with anterior calcification causing posterior acoustic dropout limiting evaluation of the posterior lesion. Subsequent diagnostic mammogram expressed pus from the lesion through the skin surface which was subsequently cultured. The right breast is asymmetrically small with heterotopic calcifications contour deformity and multiple linear scar markers. These findings are unchanged from the prior exam. An abscess is favored. Follow-up in 3-6 months following antibiotics is recommended. RECOMMENDATIONS: SHORT TERM FOLLOW-UP DIAGNOSTIC MAMMOGRAM RIGHT BREAST IN 6 MONTHS. SHORT TERM FOLLOW-UP ULTRASOUND RIGHT BREAST IN 6 MONTHS. PLEASE NOTE: A NORMAL MAMMOGRAM DOES NOT EXCLUDE THE POSSIBILITY OF BREAST CANCER. A CLINICALLY SUSPICIOUS PALPABLE LUMP SHOULD BE BIOPSIED. Dictated by: Margie Lopez MD on 08/17/2022 at 14:26 Approved by: Margie Lopez MD on 08/17/2022 at 14:32 Normal [facility] US BREAST RIGHT LIMITEDon US BREAST RIGHT LIMITED N [employer] Other US BREAST RIGHT LIMITED Patient: NORA PARNELL Exam Date: 08/17/2022 : 1940 Gender:F Ordering : DR NOBLE FERGUSON D.O. Admission #: [id number] Family : Order #: [id number] CLICK HERE TO VIEW EXAM RADIOLOGY REPORT PROCEDURE: MAMMOGRAM DIAGNOSTIC 3D BILATERAL CAD, 08/17/2022, 13:48 ULTRASOUND BREAST RIGHT LIMITED, 08/17/2022, 13:27 COMPARISON: MG MAMM DIAGNOSTIC 3D GERARDO CAD, 10/11/2020. MG MAMM SCREEN 3D GERARDO CAD, 10/12/2021. INDICATIONS: Abscess of breast Calculator Name NCI Breast Cancer Risk Assessment Tool 5 Year Breast Cancer Risk n/a% Lifetime Breast Cancer Risk n/a% Personal Breast Cancer Yes, right side breast CA, 75 Personal Ovarian Cancer No Treatments lumpectomy, radiation therapy Family Cancers Sister with breast cancer at age 60; Sister with breast cancer at age 61; Mother with liver/uterine cancer at age 64. LOCATION: [facility] BREAST COMPOSITION: Scattered areas fibroglandular density. FINDINGS: DIAGNOSTIC CATEGORY 3--PROBABLY BENIGN FINDING. THE FOLLOWING FINDING(S) HAS A HIGH PROBABILITY OF A BENIGN ETIOLOGY: Ultrasound demonstrates in the area the patient's palpable mass and pain a 2.3 x 1.8 x 2.1 cm area mildly lobular hypoechogenicity with anterior calcification causing posterior acoustic dropout limiting evaluation of the posterior lesion. Subsequent diagnostic mammogram expressed pus from the lesion through the skin surface which was subsequently cultured. The right breast is asymmetrically small with heterotopic calcifications contour deformity and multiple linear scar markers. These findings are unchanged from the prior exam. An abscess is favored. Follow-up in 3-6 months following antibiotics is recommended. RECOMMENDATIONS: SHORT TERM FOLLOW-UP DIAGNOSTIC MAMMOGRAM RIGHT BREAST IN 6 MONTHS. SHORT TERM FOLLOW-UP ULTRASOUND RIGHT BREAST IN 6 MONTHS. PLEASE NOTE: A NORMAL MAMMOGRAM DOES NOT EXCLUDE THE POSSIBILITY OF BREAST CANCER. A CLINICALLY SUSPICIOUS PALPABLE LUMP SHOULD BE BIOPSIED. Dictated by: Margie Lopez MD on 08/17/2022 at 14:26 Approved by: Margie Lopez MD on 08/17/2022 at 14:32 Normal [facility] CBC AUTO DIFFon 01-26-2022 BASO # 0.1 103/ul Normal 0.0-0.1 [facility] Comment on above: Performed By: #### C BC #### [facility] [address] [place] [address] Dr. Michael Hunt Basophils/100 WBC (Bld) 0.4 % Normal 0.2-2.0 [facility] Comment on above: Performed By: #### C BC #### [facility] [address] [place] [address] Dr. Michael Hunt EO # 0.3 103/ul Normal 0.0-0.7 [facility] Comment on above: Performed By: #### C BC #### [facility] [address] [place] [address] Dr. Michael Hunt Eosinophils/100 WBC (Bld) 2.5 % Normal 0.9-7.0 [facility] Comment on above: Performed By: #### C BC #### [facility] [address] [place] [address] Dr. Michael Hunt Erythrocyte distribution width (RBC) [Ratio] 14.9 % Normal 11.0-15.0 [facility] Comment on above: Performed By: #### C BC #### [facility] [address] [place] [address] Dr. Michael Hunt Hematocrit (Bld) [Volume fraction] 37.0 % Normal 36.0-48.0 [facility] Comment on above: Performed By: #### C BC #### [facility] [address] [place] [address] Dr. Michael Hunt Hemoglobin (Bld) [Mass/Vol] 11.9 g/dL Critically low 12.0-16.0 [facility] Comment on above: Performed By: #### C BC #### [facility] [address] [place] [address] Dr. Michael Hunt IG # 0.06 10e3/ul Critically high 0.00-0.03 [facility] Comment on above: Performed By: #### C BC #### [facility] [address] [place] [address] Dr. Michael Hunt IG % 0.5 % Normal 0.0-0.5 [facility] Comment on above: Performed By: #### C BC #### [facility] [address] [place] [address] Dr. Michael Hunt LYMPH # 1.7 103/ul Normal 1.2-3.8 [facility] Comment on above: Performed By: #### C BC #### [facility] [address] [place] [address] Dr. Michael Hunt Lymphocytes/100 WBC (Bld) 15.5 % Critically low 20.5-60.0 [facility] Comment on above: Performed By: #### C BC #### [facility] [address] [place] [address] Dr. Michael Hunt MANUAL DIFF REQ NO Normal [facility] Comment on above: Performed By: #### C BC #### [facility] [address] [place] [address] Dr. Michael Hunt MCH (RBC) [Entitic mass] 29.2 pg Normal 26.7-34.0 [facility] Comment on above: Performed By: #### C BC #### [facility] [address] [place] [address] Dr. Michael Hunt MCHC (RBC) [Mass/Vol] 32.2 g/dL Normal 29.9-35.2 [facility] Comment on above: Performed By: #### C BC #### [facility] [address] [place] [address] Dr. Michael Hunt MCV (RBC) [Entitic vol] 90.9 fL Normal 81.0-99.0 [facility] Comment on above: Performed By: #### C BC #### [facility] [address] [place] [address] Dr. Michael Hunt MONO # 1.2 103/ul Critically high 0.3-0.8 [facility] Comment on above: Performed By: #### C BC #### [facility] [address] [place] [address] Dr. Michael Hunt Monocytes/100 WBC (Bld) 11.0 % Normal 1.7-12.0 [facility] Comment on above: Performed By: #### C BC #### [facility] [address] [place] [address] Dr. Michael Hunt NEUT # 7.8 103/ul Critically high 1.4-6.5 [facility] Comment on above: Performed By: #### C BC #### [facility] [address] [place] [address] Dr. Michael Hunt Neutrophils/100 WBC (Bld) 70.1 % Normal 43.0-75.0 [facility] Comment on above: Performed By: #### C BC #### [facility] [address] [place] [address] Dr. Michael Hunt Platelet mean volume (Bld) [Entitic vol] 10.2 fL Normal 9.5-13.5 [facility] Comment on above: Performed By: #### C BC #### [facility] [address] [place] [address] Dr. Michael Hunt PLT 245 103/ul Normal 150-450 [facility] Comment on above: Performed By: #### C BC #### [facility] [address] [address] [address] Michael Hunt RBC 4.07 106/ul Critically low 4.20-5.40 [facility] Comment on above: Performed By: #### C BC #### [facility] [address] [address] [address] Michael Hunt WBC 11.1 103/ul Critically high 4.0-11.0 [facility] Comment on above: Performed By: #### C BC #### [facility] [address] [address] [address] Michael Hunt LIPID PROFILEon 01-26-2022 CHOL-HDL RATIO NORM SEE BELOW Normal [facility] Comment on above: Result Comment: 3.3 - 4.4 LOW RISK 4.4 - 7.1 AVERAGE RISK 7.1 - 11.0 MODERATE RISK >11.0 HIGH RISK Performed By: #### L IPID, ALT, TSH, BMP #### [facility] [address] [address] [address] Michael Hunt Cholesterol [Mass/Vol] 132 mg/dL Normal <=200 [facility] Comment on above: Performed By: #### L IPID, ALT, TSH, BMP #### [facility] [address] [address] [address] Michael Hunt Cholesterol in HDL [Mass/Vol] 53 mg/dL Normal 40-60 [facility] Comment on above: Performed By: #### L IPID, ALT, TSH, BMP #### [facility] [address] [address] [address] Michael Hunt Cholesterol in LDL [Mass/Vol] 43.0 mg/dL Normal [facility] Comment on above: Performed By: #### L IPID, ALT, TSH, BMP #### [facility] [address] [address] [address] Michael Hunt Cholesterol.total/Indigo sterol in HDL [Mass ratio] 2.5 {ratio} Normal [facility] Comment on above: Performed By: #### L IPID, ALT, TSH, BMP #### [facility] [address] [address] [address] Michael Hunt HDL NORMAL > or = 60 mg/dl - LOW CARDIOVASCULAR RISK <40 mg/dl - HIGH CARDIOVASCULAR RISK Normal [facility] Comment on above: Performed By: #### L IPID, ALT, TSH, BMP #### [facility] [address] [address] [address] Michael Hunt LDL CALC NORMAL SEE BELOW Normal [facility] Comment on above: Result Comment: <100 mg/dl OPTIMAL 100 - 129 mg/dl NEAR OR ABOVE OPTIMAL 130 - 159 mg/dl BORDERLINE HIGH 160 - 189 mg/dl HIGH >190 mg/dl VERY HIGH Performed By: #### L IPID, ALT, TSH, BMP #### [facility] [address] [address] [address] Michael Hunt Triglyceride [Mass/Vol] 180 mg/dL Critically high <=150 [facility] Comment on above: Performed By: #### L IPID, ALT, TSH, BMP #### [facility] [address] [address] [address] Michael Hunt VLDL CALC 36.0 mg/dL Normal [facility] Comment on above: Performed By: #### L IPID, ALT, TSH, BMP #### [facility] [address] [address] [address] Michael Hunt PROF CHEM 8 (BAS METB)on Anion gap [Moles/Vol] 13.2 mmol/L Normal [facility] Comment on above: Performed By: #### L IPID, ALT, TSH, BMP #### [facility] [address] [address] [address] Michael Hunt Calcium [Mass/Vol] 9.3 mg/dL Normal 8.5-10.1 [facility] Comment on above: Performed By: #### L IPID, ALT, TSH, BMP #### [facility] [address] [address] [address] Michael Hunt Chloride [Moles/Vol] 104 mmol/L Normal 98-107 [facility] Comment on above: Performed By: #### L IPID, ALT, TSH, BMP #### [facility] [address] [address] [address] Michael Hunt CO2 [Moles/Vol] 24.7 mmol/L Normal 21.0-32.0 [facility] Comment on above: Performed By: #### L IPID, ALT, TSH, BMP #### [facility] [address] [address] [address] Michael Hunt Creatinine [Mass/Vol] 1.20 mg/dL Critically high 0.55-1.02 [facility] Comment on above: Performed By: #### L IPID, ALT, TSH, BMP #### [facility] [address] [place] [address] Dr. Michael Hunt EGFR-AF ARGENTINE 52 mL/min/1.73m2 Critically low >=60 [facility] Comment on above: Performed By: #### L IPID, ALT, TSH, BMP #### [facility] [address] [address] [address] Michael Hunt EGFR-NON AF ARGENTINE 43 mL/min/1.73m2 Critically low >=60 [facility] Comment on above: Performed By: #### L IPID, ALT, TSH, BMP #### [facility] [address] [place] [address] Dr. Michael Hunt Glucose [Mass/Vol] 99 mg/dL Normal 74-106 [facility] Comment on above: Performed By: #### L IPID, ALT, TSH, BMP #### [facility] [address] [address] [address] Michael Hunt Potassium [Moles/Vol] 4.9 mmol/L Normal 3.5-5.1 [facility] Comment on above: Performed By: #### L IPID, ALT, TSH, BMP #### [facility] [address] [address] [address] Michael Hunt Sodium [Moles/Vol] 137 mmol/L Normal 136-145 [facility] Comment on above: Performed By: #### L IPID, ALT, TSH, BMP #### [facility] [address] [address] [address] Michael Hunt Urea nitrogen [Mass/Vol] 30.0 mg/dL Critically high 7.0-18.0 [facility] Comment on above: Performed By: #### L IPID, ALT, TSH, BMP #### [facility] [address] [place] [address] Dr. Michael Hunt Urea nitrogen/Creatinine [Mass ratio] 25.0 mg/mg Normal [facility] Comment on above: Performed By: #### L IPID, ALT, TSH, BMP #### [facility] [address] [place] [address] Dr. Michael Hunt [facility] 01-26-2022 ALT [Catalytic activity/Vol] 54 U/L Normal 14-59 [facility] Comment on above: Performed By: #### L IPID, ALT, TSH, BMP #### [facility] [address] [place] [address] Dr. [facility] T[facility] 5.136 uIU/mL Critically high 0.358-3.740 [facility] Comment on above: Performed By: #### L IPID, ALT, TSH, BMP #### [facility] [address] [place] [address] Dr. Michael Hunt Cardiovascular Lab Reporton 09-03-2018 Cardiovascular Lab Report [facility]: [id number] Department of Physician: Juan F Zepeda M.D. Division of Service Date: 09/03/2018 Cardiology Birthdate: 1940 Adult Cardiovascular Room #: [place] [address] Cardiovascular Laboratory Report INDICATION: The patient is an 78-year-old woman who was evaluated in Cardiology Clinic because of symptoms of unstable angina and an abnormal stress test. Her angina is significant shortness of breath on mild exertion, that is relieved by rest. She developed horizontal ST depressions in inferior leads and V4 to V6 after injection of the Lexiscan, because of that she was referred for cardiac catheterization. PROCEDURES: 1. Right heart catheterization. 2. Bilateral selective coronary angiography. 3. Limited right femoral angiography. 4. Successful balloon dilatation and drug-eluting stenting of 90% stenosis in the mid right coronary artery reduced to 0% by deployment of a Synergy 3.0 x 12 mm drug-eluting stent post dilated to 3.0 mm at high pressures. 5. Administration of intracoronary nitroglycerin. METHOD: The procedure was explained to the patient with risks and benefits. She signed informed consent. She was brought to the laboratory machinist in a fasting state. The right groin area was prepped and draped in usual fashion. Using micropuncture technique, the right common femoral artery was accessed. The inner cannula was advanced and right femoral angiography was performed followed by upsizing to a 6-Brazilian x 11 cm sheath. Access was also obtained using the same technique in the right common femoral vein and a 6-Brazilian x 11 cm sheath was placed. A 6-Brazilian Lee catheter was used for right heart catheterization with measurement of pressures and calculation of cardiac output using the estimated Patricia method. Lee catheter was removed. Bilateral selective coronary angiography was then performed using 6-Brazilian JL4 and JR4 diagnostic catheters. Catheters were removed. Heparin was administered intravenously and therapeutic ACT confirmed during the rest of the procedure and additional heparin given as needed. A 6-Brazilian JR4 guiding catheter was advanced and used to engage the right coronary ostium. A Prowater wire was advanced into the distal RCA. Balloon angioplasty in the mid RCA was performed using Emerge 2.5 x 8 mm balloon inflated at 12 atmospheres. Angiography revealed suboptimal results. This was treated using a Synergy 3.0 x 12 mm drug-eluting stent deployed at 11 atmospheres and post dilated using NC Quantum Bohannon 3.0 x 8 mm noncompliant balloon inflated at 8 atmospheres. Angiography after administration of intracoronary nitroglycerin showed excellent result with reduction of the stenosis to 0%. No evidence of dissection or perforation. The guiding catheter was removed. Procedure was concluded. The patient was loaded with 600 mg of Plavix at the end of the procedure. She was transferred to the cardiovascular recovery area. The access sheath will be removed and manual compression applied for hemostasis when the ACT is subtherapeutic, she will be admitted for overnight observation. TOTAL FLUORO TIME: 14.60 minutes. TOTAL AIR KERMA: 610 mGy. TOTAL CONTRAST VOLUME: 100 mL. HEMODYNAMICS: RA 5, RV 38/4, 10, PA 33/13, mean 21. Pulmonary capillary wedge pressure 8, AO 161/64, mean 101. Cardiac output 5.41. Cardiac index 3.04, PA sat 66%. AO sat 90%. CORONARY ANGIOGRAPHY: This is a right dominant circulation. Left main. This arises from left coronary cusp. It bifurcates into left anterior descending and circumflex vessels. Left main is free of disease. Left anterior descending. This is a large vessel with 30% proximal, 20% mid, and 70% apical segment stenosis. Circumflex vessel: This is nondominant it has diffuse up to 70% stenosis in the mid segment. Right coronary artery. This arises from the right coronary cusp. It is a large and dominant vessel. It has 40% ostial, 90% hazy mid segment stenosis that was reduced to 0% by Synergy drug-eluting stent, another 50% stenosis in the mid segment, and mild disease distally. Limited right femoral angiography. This showed access to be in the profunda femoris. The common femoral bifurcation is very high in this patient. There were no obstructive lesions noted in the femoral artery or its proximal branches. SUMMARY OF FINDINGS: 1. 90% mid RCA stenosis reduced to 0% by a Synergy drug-eluting stent. 2. 70% stenosis in the mid circumflex. 3. Mild disease in the proximal to mid LAD and 70% stenosis in the apical LAD. 4. Normal filling pressures. 5. Normal pulmonary arterial pressures. 6. Preserved cardiac output and cardiac index. RECOMMENDATIONS: 1. Aspirin and statin therapy for life. 2. Plavix therapy for minimum of 6 months to a year after Synergy drug-eluting stenting. 3. No beta melanie therapy due to bradycardia. 4. Follow up in Cardiology Clinic. Electronically Signed by: Juan F Zepeda M.D. 09/15/2018 06:04 P Juan F Zepeda M.D. Date Dict: 09/03/2018/01:52 P/Juan F Zepeda M.D. Date Trans: 09/03/2018 02:15 P/mmo [id number] Normal [facility] Social History Date Type Detail Facility Start: 10-19-2020 End: 10-19-2021 Alcohol intake Current non-drinker of alcohol (finding) [facility] Start: 10-09-2021 End: 10-19-2021 Exposure to SARS-CoV-2 (event) Not sure [facility] Start: 11-12-2014 End: 08-07-2023 Tobacco smoking status NHIS Ex-smoker [facility] Start: 11-12-2014 Cigarettes smoked current (pack per day) - Reported 1 [facility] Start: 11-12-2014 Tobacco use and exposure Smokeless tobacco non-user [facility] Start: 1940 Sex Assigned At Not on file C [facility] Start: 1940 Sex Assigned At Female F [facility] History of tobacco use Cigarette Smoker C [facility] Sex Assigned At Sex Assigned [facility] [employer] Other Vital Signs Date Time Vital Sign Value Performing Clinician Facility 08-28-2023 09:24-0400 Body temperature 96.6 [degF] DO Noble Ball Work Phone: [facility] 08-28-2023 09:24-0400 Diastolic blood pressure 57 mm[Hg] DO Noble Ball Work Phone: [facility] 08-28-2023 09:24-0400 Heart rate 65 /min DO Noble Ball Work Phone: [facility] 08-28-2023 09:24-0400 Respiratory rate 18 /min DO Noble Ball Work Phone: [facility] 08-28-2023 09:24-0400 Systolic blood pressure 161 mm[Hg] DO Noble Ball Work Phone: [facility] 08-10-2023 13:57-0500 Body height 152.4 cm DO Noble Ball Work Phone: [facility] 08-10-2023 13:57-0500 Body mass index (BMI) [Ratio] 35.4 kg/m2 DO Noble Ball Work Phone: [facility] 08-10-2023 13:57-0500 Body weight 82.27 kg DO Noble Ball Work Phone: [facility] 08-10-2023 13:57-0500 Diastolic blood pressure 70 mm[Hg] DO Noble Ball Work Phone: [facility] 08-10-2023 13:57-0500 Heart rate 73 /min DO Noble Ball Work Phone: [facility] 08-10-2023 13:57-0500 Respiratory rate 12 /min DO Noble Ball Work Phone: [facility] 08-10-2023 13:57-0500 Systolic blood pressure 150 mm[Hg] DO Noble Ball Work Phone: [facility] 08-07-2023 09:54-0500 Body height 152.4 cm DO Noble Ball Work Phone: [facility] 08-07-2023 09:54-0500 Body mass index (BMI) [Ratio] 35.2 kg/m2 DO Noble Ball Work Phone: [facility] 08-07-2023 09:54-0500 Body weight 81.64 kg DO Noble Ball Work Phone: [facility] 07-16-2023 11:30-0500 Body height 154.94 cm Noble Ball Other [facility] [employer] Other 07-16-2023 11:30-0500 Body mass index (BMI) [Ratio] 33.74 kg/m2 Noble Ball Other [facility] [employer] Other 07-16-2023 11:30-0500 Body weight 81.01 kg Noble Ball Other [facility] [employer] Other 07-16-2023 11:30-0500 Diastolic blood pressure 72 mm[Hg] Noble Ball Other [place] [employer] Other 07-16-2023 11:30-0500 Respiratory rate 12 /min Noble Ball Other [facility] [employer] Other 07-16-2023 11:30-0500 Systolic blood pressure 133 mm[Hg] Noble Ball Other [facility] [employer] Other 05-28-2023 14:28-0500 Diastolic blood pressure 63 mm[Hg] DO Noble Ball Work Phone: [facility] 05-28-2023 14:28-0500 Heart rate 58 /min DO Noble Ball Work Phone: [facility] 05-28-2023 14:28-0500 Respiratory rate 16 /min DO Noble Ball Work Phone: [facility] 05-28-2023 14:28-0500 SaO2% (BldA) [Mass fraction] 94 % DO Noble Ball Work Phone: [facility] 05-28-2023 14:28-0500 Systolic blood pressure 116 mm[Hg] DO Noble Ball Work Phone: [facility] 05-28-2023 13:22-0500 Inhaled oxygen flow rate 6 L/min DO Noble Ball Work Phone: [facility] 05-28-2023 13:07-0500 Body temperature 97.4 [degF] DO Noble Ball Work Phone: [facility] 05-28-2023 12:32-0500 Body height 154.94 cm DO Noble Ball Work Phone: [facility] 05-28-2023 12:32-0500 Body mass index (BMI) [Ratio] 33.7 kg/m2 DO Noble Ball Work Phone: [facility] 05-28-2023 12:32-0500 Body weight 81 kg DO Noble Ball Work Phone: [facility] 05-15-2023 09:57-0500 Body height 152.4 cm DO Noble Ball Work Phone: [facility] 05-15-2023 09:57-0500 Body mass index (BMI) [Ratio] 35.2 kg/m2 DO Noble Ball Work Phone: [facility] 05-15-2023 09:57-0500 Body weight 81.64 kg DO Noble Ball Work Phone: [facility] 05-15-2023 09:12-0500 Body temperature 98.1 [degF] DO Noble Ball Work Phone: [facility] 05-15-2023 09:12-0500 Diastolic blood pressure 69 mm[Hg] DO Noble Ball Work Phone: [facility] 05-15-2023 09:12-0500 Heart rate 68 /min DO Noble Ball Work Phone: [facility] 05-15-2023 09:12-0500 Respiratory rate 18 /min DO Noble Ball Work Phone: [facility] 05-15-2023 09:12-0500 Systolic blood pressure 168 mm[Hg] DO Noble Ball Work Phone: [facility] 03-13-2023 14:30-0400 Body height 154.94 cm Noble Ball Other [employer] Other 03-13-2023 14:30-0400 Body mass index (BMI) [Ratio] 34.01 kg/m2 Noble Ball Other [facility] [employer] Other 03-13-2023 14:30-0400 Body weight 81.65 kg Noble Ball Other [employer] Other 03-13-2023 14:30-0400 Diastolic blood pressure 62 mm[Hg] Noble Ball Other [facility] [employer] Other 03-13-2023 14:30-0400 Systolic blood pressure 122 mm[Hg] Noble Ball Other [employer] Other 12-25-2022 15:45-0400 Body height 154.94 cm Noble Ball Other [employer] Other 12-25-2022 15:45-0400 Body mass index (BMI) [Ratio] 33.97 kg/m2 Noble Ball Other [employer] Other 12-25-2022 15:45-0400 Body weight 81.56 kg Noble Ball Other [employer] Other 12-25-2022 15:45-0400 Diastolic blood pressure 70 mm[Hg] Noble Ball Other [employer] Other 12-25-2022 15:45-0400 Respiratory rate 12 /min Noble Ball Other [employer] Other 12-25-2022 15:45-0400 Systolic blood pressure 147 mm[Hg] Noble Ball Other [employer] Other 09-27-2022 12:00-0400 Body height 154.94 cm Noble Ball Other [employer] Other 09-27-2022 12:00-0400 Body mass index (BMI) [Ratio] 34.5 kg/m2 Noble Ball Other [employer] Other 09-27-2022 12:00-0400 Body weight 82.83 kg Noble Ball Other [employer] Other 09-27-2022 12:00-0400 Diastolic blood pressure 86 mm[Hg] Noble Ball Other [employer] Other 09-27-2022 12:00-0400 Respiratory rate 12 /min Noble Ball Other [employer] Other 09-27-2022 12:00-0400 Systolic blood pressure 122 mm[Hg] Noble Ball Other [employer] Other 08-17-2022 10:15-0500 Body height 154.94 cm Noble Ball Other [employer] Other 08-17-2022 10:15-0500 Body mass index (BMI) [Ratio] 34.91 kg/m2 Noble Ball Other [employer] Other 08-17-2022 10:15-0500 Body weight 83.83 kg Noble Ball Other [employer] Other 08-17-2022 10:15-0500 Diastolic blood pressure 78 mm[Hg] Noble Ball Other [employer] Other 08-17-2022 10:15-0500 Respiratory rate 12 /min Noble Ball Other [employer] Other 08-17-2022 10:15-0500 Systolic blood pressure 116 mm[Hg] Noble Ball Other [employer] Other 08-10-2022 10:15-0500 Body height 154.94 cm Noble Ball Other [employer] Other 08-10-2022 10:15-0500 Body mass index (BMI) [Ratio] 34.91 kg/m2 Noble Ball Other [employer] Other 08-10-2022 10:15-0500 Body weight 83.83 kg Noble Ball Other [employer] Other 08-10-2022 10:15-0500 Diastolic blood pressure 76 mm[Hg] Noble Ball Other [facility] [employer] Other 08-10-2022 10:15-0500 Respiratory rate 12 /min Noble Ball Other [facility] [employer] Other 08-10-2022 10:15-0500 Systolic blood pressure 112 mm[Hg] Noble Ball Other [facility] [employer] Other 10-19-2021 12:57-0400 Body height 157.5 cm Genny Vianey PA-C Work Phone: [facility] 10-19-2021 12:57-0400 Body temperature 97.7 [degF] Genny Vianey PA-C Work Phone: [facility] 10-19-2021 12:57-0400 Body weight 83.28 kg Genny Vianey PA-C Work Phone: [facility] 10-19-2021 12:57-0400 Diastolic blood pressure 52 mm[Hg] Genny Vianey PA-C Work Phone: [facility] 10-19-2021 12:57-0400 Heart rate 69 /min Genny Vianey PA-C Work Phone: [facility] 10-19-2021 12:57-0400 Respiratory rate 18 /min Genny Vianey PA-C Work Phone: [facility] 10-19-2021 12:57-0400 SaO2% (BldA) [Mass fraction] 94 % Genny Vianey PA-C Work Phone: [facility] 10-19-2021 12:57-0400 Systolic blood pressure 164 mm[Hg] Genny Vianey PA-C Work Phone: [facility] Clinical Notes 09-22-2021 to 08-07-2023 Note Date & Type Note Facility 08-07-2023 Progress note Note Date/Time August 07, 2023 9:54am [facility] [address] [place] [address] Wound Center Provider Note Signed Patient: Nora Parnell MR#: [id number] : 1940 Acct:[id number] Age/Sex: 83 / F Copies to: MD Noble West,DO~ HPI Date of Visit Date of Visit: Date of Service: 08/07/2023 Time of Service: 09:52 Narrative HPI: Patient is being followed for the right breast wound. She has home health for dressing changes. Patient states dressing changes are going well. She is without complaints. The right breast wound has epithelialized down to the depth of the wound. Thereis a small open area at the base measuring about 1 mm in diameter. Previous history: She is an 83-year-old female who about a years ago underwent right breast lumpectomy for breast cancer. She underwent radiation therapy afterward. She apparently had developed a hematoma around that time. In August of this year, patient developed drainage from the site with an open wound. She thought this might be from the previous hematoma. She did see her surgeon in [place] who did her previous surgery. Patient had some punch biopsies performed to rule out cancer which apparently did not show any cancer. She did develop nonhealing wound at this site. She underwent a couple debridements and closures in [place] but each time, the wound did open up and start draining. The last debridement was last month. The surgeon who did her previous surgerieshas since left and the patient did see Dr. Kurtz last week. He did remove some remaining sutures and the patient was then referred here. Patient is currently having dressing changes performed at the [facility] infusion center. She has an open right breast wound with a skin bridge in between. Base of the wound shows some yellowish eschar. There has been quite abit of drainage from the site. History is significant for previous coronary stent placement. She is on aspirin. Patient states that her follow up studies for her breast cancer have been good and there has been no evidence of any recurrent cancer. Patient's last mammogram was in August of this year. Subjective Pain Right Breast: Pain Description: Soreness Pain Intensity: 3 Pain Precipitating Factors Comment: comes and goes quickly, like a shock Other Pain Aggravating Factors: none noted Wound/Ulcer History When did wound start?: 08/2022 Mode of Arrival/ Baggage Screener: Personal vehicle Lives with:: Alone Appetite Description: Within Normal Limits Who helps w/ dressing change?: Home Health and Wound Care Dept Why Do You Need Help?: Can't Reach Ulcer Smoking Status: Former smoker Constitutional Constitutional: Denies fever(s) Integumentary/Breasts Skin/Breast: Reports wounds [facility] Medical History (Updated 08/06/23 @ 13:22 by RADHA Donovan) Pernicious anemia Primary insomnia CAD (coronary artery disease) Osteoporosis Breast cancer right Hyperlipidemia COPD (chronic obstructive pulmonary disease) Hypothyroidism Hypertension Diverticulitis Surgical History Hx of heart artery stent 2018 Hx of fusion of cervical spine History of appendectomy History of joint replacement bilat hip replacements, left knee History of colostomy with reversal d/t diverticulitis Hx of skin graft right breast 12/31 History of lumpectomy of right breast with lymph node removed Family History (Updated 05/28/23 @ 17:37 by Provider Conversion) Father Myocardial infarction Sister Cancer Father Mother Social History Smoking Status: Former smoker Tobacco Type: cigarettes Substance Use Type: None Grafts History of Graft History of Graft?: No Graft Information Autologous Skin Graft: Approximate date of previous graft application: 01/01/23 Number of Graft Applications: 3 Exam Physical Exam Vital Signs: Temp Pulse Resp BP O2 Del Method 97.2 F L 60 16 156/70 H Room Air 08/07/23 09:29 08/07/23 09:29 08/07/23 09:29 08/07/23 09:29 08/07/23 09:29 Const General: cooperative and no acute distress Skin Wounds: wounds noted Neuro General: patient alert and patient awake Lower/Upper Extremity Exam Vascular Exam-Pulses Left Brachial: Pulse Assessment Method: NIBP Objective Meds/Allergies Home Medications amlodipine 10 mg tablet 10 mg PO QAM 04/24/23 [History Confirmed 05/17/23] aspirin 81 mg chewable tablet 81 mg PO DAILY 04/24/23 [History Confirmed 05/17/23] atorvastatin 40 mg tablet 40 mg PO DAILY 04/24/23 [History Confirmed 05/17/23] biotin 1,250 mcg-collagen 50 mg-vit C 67.5 mg-vit E-herbal chew tablet 2 tab PO DAILY.PC.SUPPER 04/24/23 [History Confirmed 05/17/23] calcium carbonate 600 mg-vitamin D3 10 mcg (400 unit) tablet (Calcium 600 + D(3)) 1 tab PO DAILY 04/24/23 [History Confirmed 05/17/23] fluticasone fur. 200 mcg-umeclid 62.5 mcg-vilant 25 mcg inhalat.powder (Trelegy Ellipta) 1 inh inhalation DAILY 04/24/23 [History Confirmed 05/17/23] inulin 2 gram chewable tablet (Fiber Gummies) 2 g PO BID 04/24/23 [History Confirmed 05/17/23] isosorbide mononitrate 60 mg tablet,extended release 24 hr 60 mg PO QAM 04/24/23[History Confirmed 05/17/23] levothyroxine 88 mcg tablet 88 mcg PO QAM 04/24/23 [History Confirmed 05/17/23] lisinopril 20 mg tablet 20 mg PO QAM 04/24/23 [History Confirmed 05/17/23] acetaminophen 500 mg tablet 500 mg PO Q6H PRN Pain 05/17/23 [History Confirmed 07/17/23] albuterol sulfate 90 mcg/actuation aerosol inhaler 2 puff inhalation DIRECTEDPRN Shortness Of Breath 05/17/23 [History Confirmed 07/17/23] cyanocobalamin (vitamin B-12) 1,000 mcg/mL injection solution 1,000 mcg IM QMONTH 05/17/23 [History Confirmed 05/17/23] temazepam 30 mg capsule 30 mg PO QHS 30 days #30 ea 08/03/23 [Rx Confirmed 08/06/23] Allergies penicillamine Allergy (Unknown, Verified 08/07/23 09:28) Hives Penicillins Allergy (Unknown, Verified 08/07/23 09:28) Hives Sulfa (Sulfonamide Antibiotics) Allergy (Unknown, Verified 08/07/23 09:28) Hives sulfacetamide [Sulfacet-R] Allergy (Unknown, Verified 08/07/23 09:28) Rash sulfur [Sulfacet-R] Allergy (Unknown, Verified 08/07/23 09:28) Rash Wound/Ulcer Right Breast: Bed Appearance: Dried Exudate Percent of Wound Bed Granulated/Red: 60 Percent of Devitalized: 40 Length (cm): 0.1 Width (cm): 0.1 Depth (cm): 0.1 CM Sq: 0.010 Surrounding Tissue Appearance: [place] Surrounding Tissue Temp: Warm Drainage Amount: None Drainage Description: Yellow Drainage Odor: No Odor Lidocaine Applied Topically: 2% Jelly Results Height: 5 ft Weight: 81.647 kg Body Mass Index: 35.2 Assessment/Plan Assessment/Plan (1) Nonhealing surgical wound: Qualifiers: Encounter type: initial encounter Qualified Code(s): T81.89XA - Other complications of procedures, not elsewhere classified, initial encounter Code(s): T81.89XA - Other complications of procedures, not elsewhere classified, initial encounter (2) History of radiation exposure: Code(s): Z92.3 - Personal history of irradiation (3) History of breast cancer: Code(s): Z85.3 - Personal history of malignant neoplasm of breast Plan Continue collagen and alginate dressing changes to the base of the wound. Patient has home health. Follow-up in about 3 weeks. See Instructions for Orders See Instructions for Orders See Wound Discharge Instructions for Orders: Dictated By: Luis Angel Saucedo MD DD/ [id number] Signed By: <Electronically signed by MD Luis Angel Saucedo> 08/07/23 0959 [facility] Work Phone: 1(423) 370-674002-06-2024 Progress note Author Luis Angel Saucedo [facility] July 17, 2023 9:52am Note Date/Time July 17, 2023 9 :52am [facility] [address] [place] [address] Wound Center Provider Note Signed Patient: Nora Parnell MR#: [id number] : 1940 Acct:[id number] Age/Sex: 83 / F Copies to: MD Noble WestDO~ HPI Date of Visit Date of Visit: Date of Service: 07/17/2023 Time of Service: 09:50 Narrative HPI: Patient is being followed for the right breast wound. She has home health for dressing changes. Patient states dressing changes are going well. She is without complaints. Right breast wound does have increased granulation tissue. No necrotic or devitalized tissue was seen. No erythema or purulent drainage. Previous history: She is an 83-year-old female who about a years ago underwent right breast lumpectomy for breast cancer. She underwent radiation therapy afterward. She apparently had developed a hematoma around that time. In August of this year, patient developed drainage from the site with an open wound. She thought this might be from the previous hematoma. She did see her surgeon in [place] who did her previous surgery. Patient had some punch biopsies performed to rule out cancer which apparently did not show any cancer. She did develop nonhealing wound at this site. She underwent a couple debridements and closures in [place] but each time, the wound did open up and start draining. The last debridement was last month. The surgeon who did her previous surgerieshas since left and the patient did see Dr. Kurtz last week. He did remove some remaining sutures and the patient was then referred here. Patient is currently having dressing changes performed at the [facility] infusion center. She has an open right breast wound with a skin bridge in between. Base of the wound shows some yellowish eschar. There has been quite a bit of drainage from the site. History is significant for previous coronary stent placement. She is on aspirin. Patient states that her follow up studies for her breast cancer have been good and there has been no evidence of any recurrent cancer. Patient's last mammogram was in August of this year. Subjective Pain Right Breast: Pain Description: Intermittent and Sharp Pain Intensity: 0 Pain Precipitating Factors Comment: comes and goes quickly, like a shock Other Pain Aggravating Factors: none noted Wound/Ulcer History When did wound start?: 08/2022 Mode of Arrival/ Baggage Screener: Personal vehicle Lives with:: Alone Appetite Description: Within Normal Limits Who helps w/ dressing change?: Infusion Center and Wound Care Dept Why Do You Need Help?: Can't Reach Ulcer Smoking Status: Former smoker Constitutional Constitutional: Denies fever(s) Gastrointestinal Gastrointestinal: Denies abdominal pain Integumentary/Breasts Skin/Breast: Reports wounds Neurologic Neurologic: Denies syncope [facility] Medical History CAD (coronary artery disease) Osteoporosis Breast cancer right Hyperlipidemia COPD (chronic obstructive pulmonary disease) Hypothyroidism Hypertension Diverticulitis Surgical History Hx of heart artery stent 2018 Hx of fusion of cervical spine History of appendectomy History of joint replacement bilat hip replacements, left knee History of colostomy with reversal d/t diverticulitis Hx of skin graft right breast 12/31 History of lumpectomy of right breast with lymph node removed Family History Father Myocardial infarction Sister Cancer Social History Smoking Status: Former smoker Tobacco Type: cigarettes Substance Use Type: None Grafts History of Graft History of Graft?: Yes Graft Information Autologous Skin Graft: Approximate date of previous graft application: 01/01/23 Number of Graft Applications: 3 Exam Physical Exam Vital Signs: Temp Pulse Resp BP O2 Del Method 97.2 F L 61 18 153/64 H Room Air 07/17/23 08:51 07/17/23 08:51 07/17/23 08:51 07/17/23 08:51 07/17/23 08:51 Const General: cooperative and no acute distress Skin Wounds: wounds noted Neuro General: patient alert and patient awake Lower/Upper Extremity Exam Vascular Exam-Pulses Left Brachial: Pulse Assessment Method: NIBP Objective Meds/Allergies Home Medications amlodipine 10 mg tablet 10 mg PO QAM 04/24/23 [History Confirmed 05/17/23] aspirin 81 mg chewable tablet 81 mg PO DAILY 04/24/23 [History Confirmed 05/17/23] atorvastatin 40 mg tablet 40 mg PO DAILY 04/24/23 [History Confirmed 05/17/23] biotin 1,250 mcg-collagen 50 mg-vit C 67.5 mg-vit E-herbal chew tablet 2 tab PO DAILY.PC.SUPPER 04/24/23 [History Confirmed 05/17/23] calcium carbonate 600 mg-vitamin D3 10 mcg (400 unit) tablet (Calcium 600 + D(3)) 1 tab PO DAILY 04/24/23 [History Confirmed 05/17/23] fluticasone fur. 200 mcg-umeclid 62.5 mcg-vilant 25 mcg inhalat.powder (Trelegy Ellipta) 1 inh inhalation DAILY 04/24/23 [History Confirmed 05/17/23] inulin 2 gram chewable tablet (Fiber Gummies) 2 g PO BID 04/24/23 [History Confirmed 05/17/23] isosorbide mononitrate 60 mg tablet,extended release 24 hr 60 mg PO QAM 04/24/23[History Confirmed 05/17/23] levothyroxine 88 mcg tablet 88 mcg PO QAM 04/24/23 [History Confirmed 05/17/23] lisinopril 20 mg tablet 20 mg PO QAM 04/24/23 [History Confirmed 05/17/23] temazepam 30 mg capsule 30 mg PO QHS 04/24/23 [History Confirmed 05/17/23] acetaminophen 500 mg tablet 500 mg PO Q6H PRN Pain 05/17/23 [History Confirmed 07/17/23] albuterol sulfate 90 mcg/actuation aerosol inhaler 2 puff inhalation DIRECTEDPRN Shortness Of Breath 05/17/23 [History Confirmed 07/17/23] cyanocobalamin (vitamin B-12) 1,000 mcg/mL injection solution 1,000 mcg IM QMONTH 05/17/23 [History Confirmed 05/17/23] Allergies Penicillins Adverse Reaction (Verified 05/17/23 10:29) Hives Sulfa (Sulfonamide Antibiotics) Adverse Reaction (Verified 05/17/23 10:29) Hives Wound/Ulcer Right Breast: Bed Appearance: Beefy Red, Devitalized, [place] and Yellow Percent of Wound Bed Granulated/Red: 60 Percent of Devitalized: 40 Length (cm): 1.0 Width (cm): 2 Depth (cm): 0.9 CM Sq: 2.000 Surrounding Tissue Appearance: [place] Surrounding Tissue Temp: Warm Drainage Amount: Small Drainage Description: Yellow Drainage Odor: No Odor Lidocaine Applied Topically: 2% Jelly Results Height: 5 ft Weight: 81.647 kg Body Mass Index: 35.2 Assessment/Plan Assessment/Plan (1) Nonhealing surgical wound: Qualifiers: Encounter type: initial encounter Qualified Code(s): T81.89XA - Other complications of procedures, not elsewhere classified, initial encounter Code(s): T81.89XA - Other complications of procedures, not elsewhere classified, initial encounter (2) History of radiation exposure: Code(s): Z92.3 - Personal history of irradiation (3) History of breast cancer: Code(s): Z85.3 - Personal history of malignant neoplasm of breast Plan Continue collagen and alginate dressing changes. Patient has home health. Follow-up in about 3 weeks. See Instructions for Orders See Instructions for Orders See Wound Discharge Instructions for Orders: Dictated By: Luis Angel Saucedo MD DD/ [id number] Signed By: <Electronically signed by MD Luis Angel Saucedo> 07/17/23 6375 [facility] Work Phone: 1(305) 541-363002-05-2024 Evaluation note* Encounter Date Diagnosis Assessment Notes Treatment Notes Treatment Clinical Notes Jul, ASHD (arteriosclerotic heart disease) (ICD-10 - I25.10) This patient is stable without activity related CP, dyspnea or lightheadedness. They are instructed to continue exercise and AHA diet plan. Continue secondary prevention measures. Jul, Stage 3a chronic kidney disease (ICD-10 - N18.31) The patient is instructed on adequate control of hypertension and diabetes, if appropriate. They are also educated on the associated risks of NSAIDs and PPI use with kidney disease. They were instructed on adequate fluid balance and to avoid dehydration. Jul, Primary hypertension (ICD-10 - I10) This patient is instructed to consume a healthy, low-fat, low-salt diet. They are also encouraged to continue exercise to achieve/maintain a normal BMI. Jul, Chronic venous insufficiency (ICD-10 - I87.2) Avoid salt and elevate lower extremities, support stockings, inspect legs and feet daily for blisters and ulcerations. Jul, Hyperlipidemia type II (ICD-10 - E78.01) Instructed on diet and exercise with continued statin therapy.Discussed the beneficial effects of lowering cholesterol in reducing the risk for cerebrovascular and cardiovascular disease. Jul, Autoimmune thyroiditis (ICD-10 - E06.3) Clinically euthyroid, monitor yearly with TSH Jul, Chronic bronchitis, mucopurulent (ICD-10 - J41.1) No ER / hospital visits for AE in past several months COntinues on triple therapy w/ Trelegy. UTD w/ vaccinations. Suggest receiving UTD boosters for COVID Holding on RSV this year. Jul, Nicotine dependence, cigarettes, in remission (ICD-10 - F17.211) Continue abstinence. Not a candidate for yearly LDCT [facility] Other 01-24-2024 Evaluation note* Encounter Date Diagnosis Assessment Notes Treatment Notes Treatment Clinical Notes Jun, Pernicious anemia (ICD-10 - D51.0) [facility] Other 01-23-2024 Progress note Author Luis Angel Saucedo [facility] July 03, 2023 12:04pm Note Date/Time July 03, 2023 1 2:04pm [facility] [address] [place] [address] Wound Center Provider Note Signed Patient: Nora Parnell MR#: [id number] : 1940 Acct:[id number] Age/Sex: 83 / F Copies to: MD Noble West,DO~ HPI Date of Visit Date of Visit: Date of Service: 07/03/2023 Time of Service: 12:03 Narrative HPI: Patient is being followed for the right breast wound. She continues on negativepressure wound therapy. Wound is greatly improved and decreased in size. Thereis pink granulation tissue. No purulence is noted. Previous history: She is an 83-year-old female who about a years ago underwent right breast lumpectomy for breast cancer. She underwent radiation therapy afterward. She apparently had developed a hematoma around that time. In August of this year, patient developed drainage from the site with an open wound. She thought this might be from the previous hematoma. She did see her surgeon in [place] who did her previous surgery. Patient had some punch biopsies performed to rule out cancer which apparently did not show any cancer. She did develop nonhealing wound at this site. She underwent a couple debridements and closures in [place] but each time, the wound did open up and start draining. The last debridement was last month. The surgeon who did her previous surgerieshas since left and the patient did see Dr. Kurtz last week. He did remove some remaining sutures and the patient was then referred here. Patient is currently having dressing changes performed at the [facility]. She has an open right breast wound with a skin bridge in between. Base of the wound shows some yellowish eschar. There has been quite abit of drainage from the site. History is significant for previous coronary stent placement. She is on aspirin. Patient states that her follow up studies for her breast cancer have been good and there has been no evidence of any recurrent cancer. Patient's last mammogram was in August of this year. Subjective Pain Right Breast: Pain Description: Intermittent and Sharp Pain Intensity: 1 Pain Precipitating Factors Comment: comes and goes quickly, like a shock Other Pain Aggravating Factors: none noted Wound/Ulcer History When did wound start?: 08/2022 Mode of Arrival/ Baggage Screener: Personal vehicle Lives with:: Alone Appetite Description: Within Normal Limits Who helps w/ dressing change?: Infusion Center and Wound Care Dept Why Do You Need Help?: Can't Reach Ulcer Smoking Status: Former smoker Constitutional Constitutional: Denies fever(s) Integumentary/Breasts Skin/Breast: Reports wounds [facility] Medical History CAD (coronary artery disease) Osteoporosis Breast cancer right Hyperlipidemia COPD (chronic obstructive pulmonary disease) Hypothyroidism Hypertension Diverticulitis Surgical History Hx of heart artery stent 2018 Hx of fusion of cervical spine History of appendectomy History of joint replacement bilat hip replacements, left knee History of colostomy with reversal d/t diverticulitis Hx of skin graft right breast 12/31 History of lumpectomy of right breast with lymph node removed Family History Father Myocardial infarction Sister Cancer Social History Smoking Status: Former smoker Tobacco Type: cigarettes Substance Use Type: None Grafts History of Graft History of Graft?: Yes Graft Information Autologous Skin Graft: Approximate date of previous graft application: 01/01/23 Number of Graft Applications: 3 Exam Physical Exam Vital Signs: Temp Pulse Resp BP O2 Del Method 97.7 F 60 18 156/65 H Room Air 07/03/23 11:15 07/03/23 11:15 07/03/23 11:15 07/03/23 11:15 07/03/23 11:15 Const General: cooperative and no acute distress Skin Wounds: wounds noted Neuro General: patient alert and patient awake Lower/Upper Extremity Exam Vascular Exam-Pulses Left Brachial: Pulse Assessment Method: Diagnostic Monitor Objective Meds/Allergies Home Medications amlodipine 10 mg tablet 10 mg PO QAM 04/24/23 [History Confirmed 05/17/23] aspirin 81 mg chewable tablet 81 mg PO DAILY 04/24/23 [History Confirmed 05/17/23] atorvastatin 40 mg tablet 40 mg PO DAILY 04/24/23 [History Confirmed 05/17/23] biotin 1,250 mcg-collagen 50 mg-vit C 67.5 mg-vit E-herbal chew tablet 2 tab PO DAILY.PC.SUPPER 04/24/23 [History Confirmed 05/17/23] calcium carbonate 600 mg-vitamin D3 10 mcg (400 unit) tablet (Calcium 600 + D(3)) 1 tab PO DAILY 04/24/23 [History Confirmed 05/17/23] fluticasone fur. 200 mcg-umeclid 62.5 mcg-vilant 25 mcg inhalat.powder (Trelegy Ellipta) 1 inh inhalation DAILY 04/24/23 [History Confirmed 05/17/23] inulin 2 gram chewable tablet (Fiber Gummies) 2 g PO BID 04/24/23 [History Confirmed 05/17/23] isosorbide mononitrate 60 mg tablet,extended release 24 hr 60 mg PO QAM 04/24/23[History Confirmed 05/17/23] levothyroxine 88 mcg tablet 88 mcg PO QAM 04/24/23 [History Confirmed 05/17/23] lisinopril 20 mg tablet 20 mg PO QAM 04/24/23 [History Confirmed 05/17/23] temazepam 30 mg capsule 30 mg PO QHS 04/24/23 [History Confirmed 05/17/23] acetaminophen 500 mg tablet 500 mg PO Q6H PRN Pain 05/17/23 [History Confirmed 05/17/23] albuterol sulfate 90 mcg/actuation aerosol inhaler 2 puff inhalation DIRECTEDPRN Shortness Of Breath 05/17/23 [History Confirmed 05/17/23] cyanocobalamin (vitamin B-12) 1,000 mcg/mL injection solution 1,000 mcg IM QMONTH 05/17/23 [History Confirmed 05/17/23] Allergies Penicillins Adverse Reaction (Verified 05/17/23 10:29) Hives Sulfa (Sulfonamide Antibiotics) Adverse Reaction (Verified 05/17/23 10:29) Hives Wound/Ulcer Right Breast: Bed Appearance: Beefy Red, Devitalized, [place] and Yellow Percent of Wound Bed Granulated/Red: 10 Percent of Devitalized: 90 Length (cm): 0.8 Width (cm): 2 Depth (cm): 1 CM Sq: 1.600 Surrounding Tissue Appearance: [place] Surrounding Tissue Temp: Warm Drainage Amount: Small Drainage Description: Serosanguineous Drainage Odor: No Odor Lidocaine Applied Topically: 2% Jelly Results Height: 5 ft Weight: 81.647 kg Body Mass Index: 35.2 Assessment/Plan Assessment/Plan (1) Nonhealing surgical wound: Qualifiers: Encounter type: initial encounter Qualified Code(s): T81.89XA - Other complications of procedures, not elsewhere classified, initial encounter Code(s): T81.89XA - Other complications of procedures, not elsewhere classified, initial encounter (2) History of radiation exposure: Code(s): Z92.3 - Personal history of irradiation (3) History of breast cancer: Code(s): Z85.3 - Personal history of malignant neoplasm of breast Plan Will discontinue negative pressure wound therapy and start collagen and alginatedressing changes. Patient has home health. Follow-up in about 2 weeks. See Instructions for Orders See Instructions for Orders See Wound Discharge Instructions for Orders: Dictated By: Luis Angel Saucedo MD DD/ 02 Signed By: <Electronically signed by MD Luis Angel Saucedo> 07/03/23 1204 [facility] Work Phone: 1(575) 328-470201-02-2024 Progress note Author Luis Angel Saucedo [facility] June 12, 2023 9:26am Note Date/Time June 12, 2023 9: 26am [facility] [address] [place] [address] Wound Center Provider Note Signed Patient: Nora Parnell MR#: [id number] : 1940 Acct:[id number] Age/Sex: 83 / F Copies to: MD Noble West,DO~ HPI Date of Visit Date of Visit: Date of Service: 06/12/2023 Time of Service: 09:23 Narrative HPI: Patient is status post debridement of her right breast wound. Pathology showed chronic wound changes. No mention of malignancy. Cultures grew normal skin aries. There was an anaerobe identified and that [place]. Patient was started on negative pressure wound therapy 4 days ago. Previous history: She is an 83-year-old female who about a years ago underwent right breast lumpectomy for breast cancer. She underwent radiation therapy afterward. She apparently had developed a hematoma around that time. In August of this year, patient developed drainage from the site with an open wound. She thought this might be from the previous hematoma. She did see her surgeon in [place] who did her previous surgery. Patient had some punch biopsies performed to rule out cancer which apparently did not show any cancer. She did develop nonhealing wound at this site. She underwent a couple debridements and closures in [place] but each time, the wound did open up and start draining. The last debridement was last month. The surgeon who did her previous surgerieshas since left and the patient did see Dr. Kurtz last week. He did remove some remaining sutures and the patient was then referred here. Patient is currently having dressing changes performed at the [facility] infusion center. She has an open right breast wound with a skin bridge in between. Base of the wound shows some yellowish eschar. There has been quite abit of drainage from the site. History is significant for previous coronary stent placement. She is on aspirin. Patient states that her follow up studies for her breast cancer have been good and there has been no evidence of any recurrent cancer. Patient's last mammogram was in August of this year. Subjective Pain Right Breast: Pain Description: Tender Pain Intensity: 5 Wound/Ulcer History When did wound start?: 08/2022 Mode of Arrival/ Baggage Screener: Personal vehicle Lives with:: Alone Appetite Description: Within Normal Limits Who helps w/ dressing change?: [facility] Why Do You Need Help?: Can't Reach Ulcer Smoking Status: Former smoker Constitutional Constitutional: Denies fever(s) Integumentary/Breasts Skin/Breast: Reports wounds [facility] Medical History Breast cancer right CAD (coronary artery disease) COPD (chronic obstructive pulmonary disease) Diverticulitis Hyperlipidemia Hypertension Hypothyroidism Osteoporosis Surgical History History of appendectomy History of colostomy with reversal d/t diverticulitis History of joint replacement bilat hip replacements, left knee History of lumpectomy of right breast with lymph node removed Hx of fusion of cervical spine Hx of heart artery stent 2019 Hx of skin graft right breast 12/31 Family History Father Myocardial infarction Sister Cancer Social History Smoking Status: Former smoker Tobacco Type: cigarettes Substance Use Type: None Grafts History of Graft History of Graft?: No Graft Information Autologous Skin Graft: Approximate date of previous graft application: 01/01/23 Number of Graft Applications: 3 Exam Physical Exam Vital Signs: Temp Pulse Resp BP O2 Del Method 97.8 F 65 18 176/65 H Room Air 06/12/23 08:48 06/12/23 08:48 05/15/23 09:12 06/12/23 08:48 06/12/23 08:48 Const General: cooperative and no acute distress Skin Wounds: wounds noted Neuro General: patient alert and patient awake Lower/Upper Extremity Exam Vascular Exam-Pulses Left Brachial: Pulse Assessment Method: NIBP Objective Meds/Allergies Home Medications amlodipine 10 mg tablet 10 mg PO QAM 04/24/23 [History Confirmed 05/17/23] aspirin 81 mg chewable tablet 81 mg PO DAILY 04/24/23 [History Confirmed 05/17/23] atorvastatin 40 mg tablet 40 mg PO DAILY 04/24/23 [History Confirmed 05/17/23] biotin 1,250 mcg-collagen 50 mg-vit C 67.5 mg-vit E-herbal chew tablet 2 tab PO DAILY.PC.SUPPER 04/24/23 [History Confirmed 05/17/23] calcium carbonate 600 mg-vitamin D3 10 mcg (400 unit) tablet (Calcium 600 + D(3)) 1 tab PO DAILY 04/24/23 [History Confirmed 05/17/23] fluticasone fur. 200 mcg-umeclid 62.5 mcg-vilant 25 mcg inhalat.powder (Trelegy Ellipta) 1 inh inhalation DAILY 04/24/23 [History Confirmed 05/17/23] inulin 2 gram chewable tablet (Fiber Gummies) 2 g PO BID 04/24/23 [History Confirmed 05/17/23] isosorbide mononitrate 60 mg tablet,extended release 24 hr 60 mg PO QAM 04/24/23[History Confirmed 05/17/23] levothyroxine 88 mcg tablet 88 mcg PO QAM 04/24/23 [History Confirmed 05/17/23] lisinopril 20 mg tablet 20 mg PO QAM 04/24/23 [History Confirmed 05/17/23] temazepam 30 mg capsule 30 mg PO QHS 04/24/23 [History Confirmed 05/17/23] acetaminophen 500 mg tablet 500 mg PO Q6H PRN Pain 05/17/23 [History Confirmed 05/17/23] albuterol sulfate 90 mcg/actuation aerosol inhaler 2 puff inhalation DIRECTEDPRN Shortness Of Breath 05/17/23 [History Confirmed 05/17/23] cyanocobalamin (vitamin B-12) 1,000 mcg/mL injection solution 1,000 mcg IM QMONTH 05/17/23 [History Confirmed 05/17/23] Allergies Penicillins Adverse Reaction (Verified 05/17/23 10:29) Hives Sulfa (Sulfonamide Antibiotics) Adverse Reaction (Verified 05/17/23 10:29) Hives Wound/Ulcer Right Breast: Bed Appearance: [place] and Yellow Percent of Wound Bed Granulated/Red: 10 Percent of Devitalized: 90 Length (cm): 1.2 Width (cm): 2.9 Depth (cm): 2.5 CM Sq: 3.480 Surrounding Tissue Appearance: [place] Surrounding Tissue Temp: Warm Drainage Amount: Small Drainage Description: Serosanguineous Drainage Odor: No Odor Lidocaine Applied Topically: 2% Jelly Results Height: 5 ft Weight: 81.647 kg Body Mass Index: 35.2 Assessment/Plan Assessment/Plan (1) Nonhealing surgical wound: Qualifiers: Encounter type: initial encounter Qualified Code(s): T81.89XA - Other complications of procedures, not elsewhere classified, initial encounter (2) History of radiation exposure: (3) History of breast cancer: Plan Continue negative pressure wound therapy. Patient has home health. Patient will follow-up here in 2 weeks. See Instructions for Orders See Instructions for Orders See Wound Discharge Instructions for Orders: Dictated By: Luis Angel Saucedo MD DD/ 2 Signed By: <Electronically signed by MD Luis Angel Saucedo> 06/12/23 0926 [facility] Work Phone: 1(816) 203-571612-20-2023 Evaluation note* Encounter Date Diagnosis Assessment Notes Treatment Notes Treatment Clinical Notes May, Pernicious anemia (ICD-10 - D51.0) MDCapsule Other 12-18-2023 Hospital Discharge instructions Additional Instructions Initiate negative pressure wound therapy using black foam at 125 mmHg continuous. Change 3 times a week. In the meantime, perform dressing changes daily. Remove packing, irrigate with saline/Vashe and repack with saline moistened 4 x 4 gauze and cover with dry dressing.[facility] Work Phone: 1(306) 303-463512-05-2023 Progress note Author Luis Angel Saucedo [facility] May 15, 2023 9:57am Note Date/Time May 15, 2023 9 :57am [facility] [address] [place] [address] Wound Center Provider Note Signed Patient: Nora Parnell MR#: [id number] : 1940 Acct:[id number] Age/Sex: 83 / F Copies to: MD Noble West,DO~ HPI Date of Visit Date of Visit: Date of Service: 05/15/2023 Time of Service: 09:53 Narrative HPI: Patient returns today. She has been followed for a nonhealing surgical wound ofthe right breast. There has been minimal improvement. There is still drainage which now has a greenish discoloration. There is still significant undermining. Previous history: She is an 83-year-old female who about a years ago underwent right breast lumpectomy for breast cancer. She underwent radiation therapy afterward. She apparently had developed a hematoma around that time. In August of this year, patient developed drainage from the site with an open wound. She thought this might be from the previous hematoma. She did see her surgeon in [place] who did her previous surgery. Patient had some punch biopsies performed to rule out cancer which apparently did not show any cancer. She did develop nonhealing wound at this site. She underwent a couple debridements and closures in [place] but each time, the wound did open up and start draining. The last debridement was last month. The surgeon who did her previous surgerieshas since left and the patient did see Dr. Kurtz last week. He did remove some remaining sutures and the patient was then referred here. Patient is currently having dressing changes performed at the [facility] infusion center. She has an open right breast wound with a skin bridge in between. Base of the wound shows some yellowish eschar. There has been quite abit of drainage from the site. History is significant for previous coronary stent placement. She is on aspirin. Patient states that her follow up studies for her breast cancer have been good and there has been no evidence of any recurrent cancer. Patient's last mammogram was in August of this year. Subjective Pain Right Breast: Pain Description: Intermittent Pain Intensity: 5 Wound/Ulcer History When did wound start?: 08/2022 Mode of Arrival/ Baggage Screener: Personal vehicle Lives with:: Alone Appetite Description: Within Normal Limits Who helps w/ dressing change?: [facility] Why Do You Need Help?: Can't Reach Ulcer Smoking Status: Former smoker Constitutional Constitutional: Denies fever(s) Cardiovascular Cardiovascular: Denies chest pain Respiratory Respiratory: Denies dyspnea Integumentary/Breasts Skin/Breast: Reports wounds [facility] Medical History (Updated 04/24/23 @ 11:09 by Luis Angel Saucedo MD) Breast cancer right COPD (chronic obstructive pulmonary disease) Diverticulitis Hyperlipidemia Hypertension Hypothyroidism Surgical History History of appendectomy History of colostomy with reversal d/t diverticulitis History of joint replacement bilat hip replacements, left knee History of lumpectomy of right breast with lymph node removed Hx of fusion of cervical spine Hx of heart artery stent 2019 Hx of skin graft right breast 12/31 Family History (Updated 04/24/23 @ 09:31 by Fara Nice RN) Father Myocardial infarction Sister Cancer Social History Smoking Status: Former smoker Grafts History of Graft History of Graft?: No Graft Information Autologous Skin Graft: Approximate date of previous graft application: 01/01/23 Number of Graft Applications: 3 Exam Physical Exam Vital Signs: Temp Pulse Resp BP O2 Del Method 98.1 F 68 18 168/69 H Room Air 05/15/23 09:12 05/15/23 09:12 05/15/23 09:12 05/15/23 09:12 05/15/23 09:12 Const General: cooperative and no acute distress Resp Auscultation: clear to auscultation bilaterally Cardio Rate: regular rate Rhythm: regular rhythm Skin Wounds: wounds noted Neuro General: patient alert and patient awake Lower/Upper Extremity Exam Vascular Exam-Pulses Left Brachial: Pulse Assessment Method: NIBP Objective Meds/Allergies Home Medications amlodipine 10 mg tablet 10 mg PO QAM 04/24/23 [History Confirmed 05/15/23] aspirin 81 mg chewable tablet 81 mg PO DAILY 04/24/23 [History Confirmed 05/15/23] atorvastatin 40 mg tablet 40 mg PO QHS 04/24/23 [History Confirmed 05/15/23] biotin 1,250 mcg-collagen 50 mg-vit C 67.5 mg-vit E-herbal chew tablet 2 tab PO DAILY.PC.SUPPER 04/24/23 [History Confirmed 05/15/23] calcium carbonate 600 mg-vitamin D3 10 mcg (400 unit) tablet (Calcium 600 + D(3)) 1 tab PO DAILY 04/24/23 [History Confirmed 05/15/23] cyanocobalamin (vitamin B-12) 100 mcg/mL injection solution 100 mcg 04/24/23 [History] fluticasone fur. 200 mcg-umeclid 62.5 mcg-vilant 25 mcg inhalat.powder (Trelegy Ellipta) 1 inh inhalation DAILY 04/24/23 [History Confirmed 05/15/23] inulin 2 gram chewable tablet (Fiber Gummies) 2 g PO BID 04/24/23 [History Confirmed 05/15/23] isosorbide mononitrate 60 mg tablet,extended release 24 hr 60 mg PO QAM 04/24/23[History Confirmed 05/15/23] levothyroxine 88 mcg tablet 88 mcg PO QAM 04/24/23 [History Confirmed 05/15/23] lisinopril 20 mg tablet 20 mg PO QAM 04/24/23 [History Confirmed 05/15/23] temazepam 30 mg capsule 30 mg PO QHS 04/24/23 [History Confirmed 05/15/23] Allergies Penicillins Adverse Reaction (Verified 04/24/23 09:32) Hives Sulfa (Sulfonamide Antibiotics) Adverse Reaction (Verified 04/24/23 09:32) Hives Wound/Ulcer Right Breast: Bed Appearance: White and Yellow Percent of Wound Bed Granulated/Red: 0 Percent of Devitalized: 100 Length (cm): 0.6 Width (cm): 0.9 Depth (cm): 2.8 CM Sq: 0.540 Surrounding Tissue Appearance: Ethnic/Norm Surrounding Tissue Temp: Warm Drainage Amount: Large Drainage Description: Yellow and Green Drainage Odor: Slight Odor Lidocaine Applied Topically: 2% Jelly Results Height: 5 ft Weight: 81.647 kg Body Mass Index: 35.2 Assessment/Plan Assessment/Plan (1) Nonhealing surgical wound: Qualifiers: Encounter type: initial encounter Qualified Code(s): T81.89XA - Other complications of procedures, not elsewhere classified, initial encounter Code(s): T81.89XA - Other complications of procedures, not elsewhere classified, initial encounter Status: Acute (2) History of radiation exposure: Code(s): Z92.3 - Personal history of irradiation Status: Acute (3) History of breast cancer: Code(s): Z85.3 - Personal history of malignant neoplasm of breast Status: Acute Plan After discussion with the patient and her family, is decided to proceed with debridement of the right breast wound with unroofing of the undermined area circumferentially. This would allow for more effective dressing changes and also for better ability to inspect the wound. Also, if there is evidence of infection, cultures can be taken. Once this is done, we can initiate negative pressure wound therapy. This would help with control of the drainage as well ashopefully improve the wound healing. The procedure, benefits, risks including risks of bleeding, infection, wound healing problems were discussed. Patient has had previous radiation therapy to the breast which can impair wound healing. The patient's current dressing changes can be decreased to every other day untilher surgery is done. After surgery, we can initiate home health to help with the negative pressure wound therapy. See Instructions for Orders See Instructions for Orders See Wound Discharge Instructions for Orders: Dictated By: Luis Angel Saucedo MD DD/ 0953 Signed By: <Electronically signed by MD Luis Angel Saucedo> 05/15/23 0957 [facility] Work Phone: 1(325) 717-641211-16-2023 Evaluation note* Encounter Date Diagnosis Assessment Notes Treatment Notes Treatment Clinical Notes Apr, Pernicious anemia (ICD-10 - D51.0) MDCapsule Other 11-14-2023 Progress note Author Luis Angel Saucedo [facility] April 24, 2023 11:12am Note Date/Time April 24, 2023 10:46am [facility] [address] [place] [address] Wound Center Provider Note Signed Patient: Nora Parnell MR#: [id number] : 1940 Acct:[id number] Age/Sex: 83 / F Copies to: MD Noble West,DO~ HPI Date of Visit Date of Visit: Date of Service: 04/24/2023 Time of Service: 10:40 Narrative HPI: Patient is a new patient to wound care center. She is an 83-year-old female whoabout a years ago underwent right breast lumpectomy for breast cancer. She underwent radiation therapy afterward. She apparently had developed a hematoma around that time. In August of this year, patient developed drainage from the site with an open wound. She thought this might be from the previous hematoma. She did see her surgeon in [place] who did her previous surgery. Patient had some punch biopsies performed to rule out cancer which apparently did not show any cancer. She did develop nonhealing wound at this site. She underwent a couple debridements and closures in [place] but each time, the wound did open up and start draining. The last debridement was last month. The surgeon who did her previous surgerieshas since left and the patient did see Dr. Kurtz last week. He did remove some remaining sutures and the patient was then referred here. Patient is currently having dressing changes performed at the [facility]. She has an open right breast wound with a skin bridge in between. Base of the wound shows some yellowish eschar. There has been quite abit of drainage from the site. History is significant for previous coronary stent placement. She is on aspirin. Patient states that her follow up studies for her breast cancer have been good and there has been no evidence of any recurrent cancer. Patient's last mammogram was in August of this year. Subjective Pain Right Breast: Pain Description: Soreness Pain Intensity: 5 Wound/Ulcer History When did wound start?: 08/2022 Mode of Arrival/ Baggage Screener: Personal vehicle Lives with:: Alone Appetite Description: Within Normal Limits Who helps w/ dressing change?: [facility] Dept Why Do You Need Help?: Can't Reach Ulcer Smoking Status: Former smoker Constitutional Constitutional: Denies fever(s) Cardiovascular Cardiovascular: Denies chest pain Respiratory Respiratory: Denies dyspnea Gastrointestinal Gastrointestinal: Denies abdominal pain Integumentary/Breasts Skin/Breast: Reports wounds Neurologic Neurologic: Denies syncope [facility] Medical History (Updated 04/24/23 @ 11:09 by Luis Angel Saucedo MD) Breast cancer right COPD (chronic obstructive pulmonary disease) Diverticulitis Hyperlipidemia Hypertension Hypothyroidism Surgical History History of appendectomy History of colostomy with reversal d/t diverticulitis History of joint replacement bilat hip replacements, left knee History of lumpectomy of right breast with lymph node removed Hx of fusion of cervical spine Hx of heart artery stent 2019 Hx of skin graft right breast 12/31 Family History (Updated 04/24/23 @ 09:31 by Fara Nice, RN) Father Myocardial infarction Sister Cancer Social History Smoking Status: Former smoker Grafts History of Graft History of Graft?: Yes Graft Information Autologous Skin Graft: Approximate date of previous graft application: 01/01/23 Number of Graft Applications: 3 Exam Physical Exam Vital Signs: Temp Pulse Resp BP 98.1 F 69 16 161/63 H 04/24/23 09:19 04/24/23 09:19 04/24/23 09:19 04/24/23 09:19 Const General: cooperative and no acute distress HEENT Head: atraumatic Eyes Sclera: sclerae normal (Anicteric) Resp Auscultation: clear to auscultation bilaterally Cardio Rate: regular rate Rhythm: regular rhythm GI Palpation: soft Skin Wounds: wounds noted Neuro General: patient alert and patient awake Lower/Upper Extremity Exam Vascular Exam-Pulses Left Brachial: Pulse Assessment Method: NIBP Objective Meds/Allergies Home Medications amlodipine 10 mg tablet 10 mg PO QAM 04/24/23 [History Confirmed 04/24/23] aspirin 81 mg chewable tablet 81 mg PO DAILY 04/24/23 [History Confirmed 04/24/23] atorvastatin 40 mg tablet 40 mg PO QHS 04/24/23 [History Confirmed 04/24/23] biotin 1,250 mcg-collagen 50 mg-vit C 67.5 mg-vit E-herbal chew tablet 2 tab PO DAILY.PC.SUPPER 04/24/23 [History Confirmed 04/24/23] calcium carbonate 600 mg-vitamin D3 10 mcg (400 unit) tablet (Calcium 600 + D(3)) 1 tab PO DAILY 04/24/23 [History Confirmed 04/24/23] cyanocobalamin (vitamin B-12) 100 mcg/mL injection solution mcg 04/24/23 [History] fluticasone fur. 200 mcg-umeclid 62.5 mcg-vilant 25 mcg inhalat.powder (Trelegy Ellipta) 1 inh inhalation DAILY 04/24/23 [History Confirmed 04/24/23] inulin 2 gram chewable tablet (Fiber Gummies) 2 g PO BID 04/24/23 [History Confirmed 04/24/23] isosorbide mononitrate 60 mg tablet,extended release 24 hr 60 mg PO QAM 04/24/23[History Confirmed 04/24/23] levothyroxine 88 mcg tablet 88 mcg PO QAM 04/24/23 [History Confirmed 04/24/23] lisinopril 20 mg tablet 20 mg PO QAM 04/24/23 [History Confirmed 04/24/23] temazepam 30 mg capsule 30 mg PO QHS 04/24/23 [History Confirmed 04/24/23] Allergies Penicillins Adverse Reaction (Verified 04/24/23 09:32) Hives Sulfa (Sulfonamide Antibiotics) Adverse Reaction (Verified 04/24/23 09:32) Hives Wound/Ulcer Right Breast: Bed Appearance: Epithelial Tissue or Bridge, [place] and Yellow Percent of Wound Bed Granulated/Red: 10 Percent of Devitalized: 90 Length (cm): 0.6 Width (cm): 1.2 Depth (cm): 3.0 CM Sq: 0.720 Surrounding Tissue Appearance: Ethnic/Norm Surrounding Tissue Temp: Warm Drainage Amount: Large Drainage Description: Serosanguineous Drainage Odor: Slight Odor Lidocaine Applied Topically: 2% Jelly Results Height: 5 ft Weight: 81.647 kg Body Mass Index: 35.2 Assessment/Plan Assessment/Plan (1) Nonhealing surgical wound: Qualifiers: Encounter type: initial encounter Qualified Code(s): T81.89XA - Other complications of procedures, not elsewhere classified, initial encounter Code(s): T81.89XA - Other complications of procedures, not elsewhere classified, initial encounter Status: Acute (2) History of radiation exposure: Code(s): Z92.3 - Personal history of irradiation Status: Acute (3) History of breast cancer: Code(s): Z85.3 - Personal history of malignant neoplasm of breast Status: Acute Plan The small skin bridge is sharply divided. Bleeding controlled with pressure. Patient already has had a couple debridements. We will use honey gel coated gauze packing with the dressing changes to be done daily. Patient goes to the [facility] for this. Patient follow-up here in 3 weeks. If, at that time, there has not been improvement or there has been worsening of the wound, we may discuss unroofing of the significant tunneled areas especially laterally, debridement and possiblynegative pressure wound therapy. Patient and family are told that with the radiation therapy to the site, healing could be prolonged and difficult. At this point, I find no evidence of infection. See Instructions for Orders See Instructions for Orders See Wound Discharge Instructions for Orders: Dictated By: Luis Angel Saucedo MD DD/ [id number] Signed By: <Electronically signed by MD Luis Angel Saucedo> 04/24/23 1112 [facility] Work Phone: 1(216) 974-699811-01-2023 NotePatient here for follow up CAD and hypertension. Recently had another breast surgery to repair infection from biopsy. Still dealing with some drainage from that. She denies chest pain, SOB, palpitations, and lightheadedness. Review of Systems Skin: Positive for poor wound healing. Musculoskeletal: Positive for arthritis, back pain and joint pain. All other systems reviewed and are negative.[facility] 04-11-2023 NoteCardiovascular Medicine [facility] SUBJECTIVE Chief Complaint Patient presents with Coronary Artery Disease Hypertension Nora Parnell is a 83 y.o. female here for routine follow-up. HPI PMHx: CAD s/p PCI to RCA in 2019, HTN, HLD She has been having issues with a wound from a breast biopsy. She is doing well from a cardiac standpoint. Denies c/o CP, worsening dyspnea, orthopnea, PND, LE edema, dizziness/LH, palpitations. Last labs were done in December,. BP at home averaging 130s/60s. Patient Active Problem List Diagnosis Arthritis Bowel obstruction (CMS/HCC) Chronic obstructive lung disease (CMS/HCC) Coronary artery disease Dyspnea on exertion History of breast cancer Hyperlipidemia Hypertension Breast cancer (CMS/HCC) Necrotizing fasciitis (CMS/HCC) Status post percutaneous transluminal coronary angioplasty Hx of heart artery stent Past Medical History: Diagnosis Date Cancer (CMS/HCC) COPD (chronic obstructive pulmonary disease) (CMS/HCC) Coronary artery disease Hypertension Family History Problem Relation Name Age of Onset No Known Problems Mother No Known Problems Father Social History Tobacco Use Smoking status: Former Types: Cigarettes Quit date: 2007 Years since quittin.8 Smokeless tobacco: Never Substance Use Topics Alcohol use: Never Allergies Allergen Reactions Penicillins Anaphylaxis, Hives, Other and Unknown Sulfa (Sulfonamide Antibiotics) Hives, Other, Rash and Unknown ROS Skin: Positive for poor wound healing. Musculoskeletal: Positive for arthritis, back pain and joint pain. All other systems reviewed and are negative. OBJECTIVE Visit Vitals BP 149/77 (BP Location: Left arm, Patient Position: Sitting) Pulse 77 Ht 1.549 m (5' 1 ) Wt 82.6 kg (182 lb) SpO2 94% BMI 34.39 kg/m??? Smoking Status Former BSA 1.89 m??? Medications: Current Outpatient Medications: amLODIPine (Norvasc) 10 mg tablet, TAKE ONE TABLET BY MOUTH ONCE DAILY, Disp: 90 tablet, Rfl: 3 atorvastatin (Lipitor) 40 mg tablet, Take 1 tablet (40 mg) by mouth in the morning., Disp: 90 tablet, Rfl: 3 qkhnpratygg-ijtgcbfzi-pdxigjfx 200-62.5-25 mcg blister with device, INHALE 1 PUFF ONCE DAILY, Disp: , Rfl: isosorbide mononitrate ER (Imdur) 60 mg 24 hr tablet, TAKE ONE TABLET BY MOUTH ONCE DAILY, Disp: 30 tablet, Rfl: 11 temazepam (Restoril) 30 mg capsule, TAKE ONE CAPSULE BY MOUTH ONCE DAILY AT BEDTIME, Disp: , Rfl: aspirin 81 mg EC tablet, Take 1 tablet by mouth in the morning., Disp: , Rfl: inulin 2 gram tablet,chewable, Chew 1 tablet in the morning., Disp: , Rfl: levothyroxine (Synthroid, Levoxyl) 88 mcg tablet, 1 (one) time each day at the same time., Disp: , Rfl: lisinopril 20 mg tablet, Take 1 tablet by mouth in the morning., Disp: , Rfl: Physical Exam Vitals reviewed. Constitutional: Appearance: Normal appearance. She is normal weight. HENT: Head: Normocephalic and atraumatic. Right Ear: External ear normal. Left Ear: External ear normal. Eyes: Extraocular Movements: Extraocular movements intact. Conjunctiva/sclera: Conjunctivae normal. Pupils: Pupils are equal, round, and reactive to light. Neck: Vascular: No carotid bruit. Cardiovascular: Rate and Rhythm: Normal rate and regular rhythm. Pulses: Normal pulses. Heart sounds: Normal heart sounds. Pulmonary: Effort: Pulmonary effort is normal. Breath sounds: Normal breath sounds. Abdominal: General: Bowel sounds are normal. Palpations: Abdomen is soft. Musculoskeletal: Cervical back: Neck supple. Right lower leg: No edema. Left lower leg: No edema. Skin: General: Skin is warm and dry. Neurological: General: No focal deficit present. Mental Status: She is alert and oriented to person, place, and time. Psychiatric: Mood and Affect: Mood normal. Behavior: Behavior normal. Thought Content: Thought content normal. Judgment: Judgment normal. Labs: Legacy Encounter on 09/03/2018 Component Date Value Ref Range Status Ventricular Rate 09/03/2018 70 BPM Final Atrial Rate 09/03/2018 70 BPM Final ME Interval 09/03/2018 172 ms Final QRS DURATION 09/03/2018 84 ms Final QT Interval 09/03/2018 398 ms Final QTC CALCULATION(BEZET) 09/03/2018 429 ms Final P [place] 09/03/2018 70 degrees Final R-[place] 09/03/2018 65 degrees Final T Wave [place] 09/03/2018 83 degrees Final Diagnosis 09/03/2018 Final Value:Normal sinus rhythm Nonspecific T wave abnormality Abnormal ECG No previous ECGs available Confirmed by Ketty Lerma ([id number]) on 09/03/2018 4:31:18 PM 11/15/2021 Hgb 11.9, plt 215 Cr 1.29, BUN 22, eGFR 39, K 3.9, Na 137 labs from 11/30/2020 CBC normal Kidney function stable BUN 18 creatinine 1.07 Liver function normal Cholesterol well controlled-cholesterol 133, HDL 54, triglyceride 215, LDL 36 12/27/2019-BUN 22, creatinine 0.99, ALT 34, AST 21,-normal renal and liver Cholesterol 138, HDL 63, triglyceride 102, LDL 5 (more content not included)... [facility]10-03-2023 Evaluation note* Encounter Date Diagnosis Assessment Notes Treatment Notes Treatment Clinical Notes Mar, Medicare annual wellness visit, subsequent (ICD-10 - Z00.00) Personalized health advice was given to the beneficiary including a written plan for screenings discussed and provided. Advanced care planning reviewed and/or information given as requested. Additional counseling was provided here today in regards to, [ ]. The above visit was performed by [ ], under direct supervision of [ ]. Document reviewed and amended by provider signed below. Mar, ASHD (arteriosclerotic heart disease) (ICD-10 - I25.10) This patient is stable without activity related CP, dyspnea or lightheadedness. They are instructed to continue exercise and AHA diet plan. Continue secondary prevention measures. Mar, Primary hypertension (ICD-10 - I10) This patient is instructed to consume a healthy, low-fat, low-salt diet. They are also encouraged to continue exercise to achieve/maintain a normal BMI. Mar, Stage 3a chronic kidney disease (ICD-10 - N18.31) The patient is instructed on adequate control of hypertension and diabetes, if appropriate. They are also educated on the associated risks of NSAIDs and PPI use with kidney disease. They were instructed on adequate fluid balance and to avoid dehydration. Mar, Chronic bronchitis, mucopurulent (ICD-10 - J41.1) Stable w/o recent visits for ER for AECOPD - rarely using rescue inhaler - continue triple therapy Mar, Hyperlipidemia type II (ICD-10 - E78.01) Instructed on diet and exercise with continued statin therapy.Discussed the beneficial effects of lowering cholesterol in reducing the risk for cerebrovascular and cardiovascular disease. Mar, Chronic venous insufficiency (ICD-10 - I87.2) Avoid salt and elevate lower extremities, support stockings, inspect legs and feet daily for blisters and ulcerations. Mar, Autoimmune thyroiditis (ICD-10 - E06.3) Clinically euthyroid, check TSH yearly Mar, Other specified hypothyroidism (ICD-10 - E03.8) Mar, Nicotine dependence, cigarettes, in remission (ICD-10 - F17.211) Mar, Hx of breast cancer (ICD-10 - Z85.3) No s/s recurrence Instructed patient on monthly SBE and yearly mammograms. [facility] Other 09-07-2023 Evaluation note* Encounter Date Diagnosis Assessment Notes Treatment Notes Treatment Clinical Notes Feb, Pernicious anemia (ICD-10 - D51.0) [facility] Other 08-09-2023 Evaluation note* Encounter Date Diagnosis Assessment Notes Treatment Notes Treatment Clinical Notes Jan, Lower extremity edema (ICD-10 - R60.0) Jan, ASHD (arteriosclerotic heart disease) (ICD-10 - I25.10) Jan, HEIN (dyspnea on exertion) (ICD-10 - R06.09) [facility] Other 08-07-2023 Evaluation note* Encounter Date Diagnosis Assessment Notes Treatment Notes Treatment Clinical Notes Jan, Pernicious anemia (ICD-10 - D51.0) [facility] Other 07-25-2023 Evaluation note* Encounter Date Diagnosis Assessment Notes Treatment Notes Treatment Clinical Notes Dec, Lower extremity edema (ICD-10 - R60.0) [facility] Other 07-18-2023 Evaluation note* Encounter Date Diagnosis Assessment Notes Treatment Notes Treatment Clinical Notes Dec, Lower extremity edema (ICD-10 - R60.0) [facility] Other 07-17-2023 Evaluation note* Encounter Date Diagnosis Assessment Notes Treatment Notes Treatment Clinical Notes Dec, Lower extremity reginaldo a (ICD-10 - R60.0) Avoid salt and elevate lower extremities, support stockings, inspect legs and feet daily for blisters and ulcerations. Discussed contributing factors: - medication: Amlodipine, NTG - systemic illness: hypothyroid, B12 deficiency - RHF/pulmonary HTN: COPD, ELPIDIO, LVD - CVI - CKD/nephrosis Dec, Stage 3b chronic kidney disease (ICD-10 - N18.32) The patient is instructed on adequate control of hypertension and diabetes, if appropriate. They are also educated on the associated risks of NSAIDs and PPI use with kidney disease. They were instructed on adequate fluid balance and to avoid dehydration. Dec, ASHD (arteriosclerotic heart disease) (ICD-10 - I25.10) This patient is stable without activity related CP, dyspnea or lightheadedness. They are instructed to continue exercise and AHA diet plan. Dec, Chronic bronchitis, mucopurulent (ICD-10 - J41.1) Continue triple therapy No ER visits for AE TUAN as needed Dec, Dysesthesia (ICD-10 - R20.8) B12, Fe deficiency RLS? 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 They are also encouraged to continue exercise to achieve/maintain a normal BMI. Amlodipine/NTG as contributing factors Dec, Elevated d-dimer (ICD-10 - R79.89) [facility] Other 07-06-2023 Evaluation note* Encounter Date Diagnosis Assessment Notes Treatment Notes Treatment Clinical Notes Dec, Pernicious anemia (ICD-10 - D51.0) [facility] Other 06-05-2023 Evaluation note* Encounter Date Diagnosis Assessment Notes Treatment Notes Treatment Clinical Notes Nov, Pernicious anemia (ICD-10 - D51.0) [facility] Other 05-04-2023 Evaluation note* Encounter Date Diagnosis Assessment Notes Treatment Notes Treatment Clinical Notes October, Pernicious anemia (ICD-10 - D51.0) [facility] Other 04-19-2023 Evaluation note* Encounter Date Diagnosis Assessment Notes Treatment Notes Treatment Clinical Notes Sep, Chronic bronchitis, mucopurulent (ICD-10 - J41.1) Continue triple therapy. TUAN as needed. No ER visits since previous OV Increase activity as tolerated Sep, ASHD (arteriosclerotic heart disease) (ICD-10 - I25.10) This patient is stable without activity related CP, dyspnea or lightheadedness. They are instructed to continue exercise and AHA diet plan. Sep, Essential hypertension (ICD-10 - I10) This patient is instructed to consume a healthy, low-fat, low-salt diet. They are also encouraged to continue exercise to achieve/maintain a normal BMI. Sep, Hyperlipidemia type II (ICD-10 - E78.01) Diet and exercise with continued statin therapy. 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) Euthyroid, yearly TSH Sep, Cellulitis of female breast (ICD-10 - N61.0) Keep clean and dry Restart antibiotics f/u Surgery Sep, Nicotine dependence, cigarettes, in remission (ICD-10 - F17.211) Sep, Hx of breast cancer (ICD-10 - Z85.3) Repeat mammogram in 6mo SBE monthly f/u Surgery [facility] Other 04-04-2023 Evaluation note* Encounter Date Diagnosis Assessment Notes Treatment Notes Treatment Clinical Notes Sep, Pernicious anemia (ICD-10 - D51.0) [facility] Other 03-09-2023 Evaluation note* Encounter Date Diagnosis Assessment Notes Treatment Notes Treatment Clinical Notes Aug, Local infection of the skin and subcutaneous tissue, unspecified (ICD-10 - L08.9) Aug, Other injury of unspecified body region, initial encounter (ICD-10 - T14.8XXA) [facility] Other 03-09-2023 Evaluation note* Encounter Date Diagnosis Assessment Notes Treatment Notes Treatment Clinical Notes Aug, Cellulitis of female breast (ICD-10 - N61.0) Aug, Breast abscess of female (ICD-10 - N61.1) Warm compresses, continue antibiotic coverage. Schedule breast US Refer to Surgery Aug, Hx of breast cancer (ICD-10 - Z85.3) [facility] Other 03-02-2023 Evaluation note* Encounter Date Diagnosis Assessment Notes Treatment Notes Treatment Clinical Notes Aug, Cyst of right breast (ICD-10 - N60.01) After short treatment for possible infection, will schedule for breast US Aug, Cellulitis of female breast (ICD-10 - N61.0) WArm compresses and antibiotics. Call w/ update in week Aug, Pernicious anemia (ICD-10 - D51.0) Aug, Hx of breast cancer (ICD-10 - Z85.3) [facility] Other 01-31-2023 Evaluation note* Encounter Date Diagnosis Assessment Notes Treatment Notes Treatment Clinical Notes Jun, Pernicious anemia (ICD-10 - D51.0) [facility] Other 05-11-2022 History of Present illness Narrative* Genny Winters PA-C - 10/19/2021 1:30 PM EDT PATIENT NAME: Nora Parnell [facility] NO.: [id number] ATTENDING PHYSICIAN: Stephen Caballero MD DATE OF SERVICE: October 19, 2021 (Elements copied from Dr. Caballero's note dated October 19, 2020, have been reviewed and updated where appropriate, and all reflect current assessment and medical decision making during today's encounter, October 19, 2021) CC: Follow up Diagnosis: 1. Right breast cancer, invasive lobular carcinoma, HER-2/suresh negative ER and ME strongly positive at 95%, diagnosed 2014 Treatment History: 1. Lumpectomy plus sentinel lymph node biopsy October 28, 2014. Invasive lobular carcinoma, 2.2 cm. 2 sentinel lymph nodes negative for involvement. ER ME 95% positive, HER-2/suresh negative. 2. Right breast irradiation completed January 2015 3. Adjuvant aromatase inhibitor started February 2015, Arimidex- October 2019 HPI: Nora returns for follow up. She has been doing well. Denies any new pain, weight loss, skin changes or other complaints. She had a mammogram in October 2021 which was negative for malignancy. PAST MEDICAL HISTORY Diagnosis Date Arthritis Breast cancer (HCC) Right; T2N0M0; ER/ME+ HER2 COPD (chronic obstructive pulmonary disease) (HCC) Hypertension Hypothyroidism Social History Tobacco Use Smoking status: Former Smoker Packs/day: 1.00 Years: 55.00 Pack years: 55.00 Types: Cigarettes Smokeless tobacco: Never Used Substance Use Topics Alcohol use: No Drug use: No No family history on file. Past medical, social and family history reviewed without any changes. REVIEW OF SYSTEMS GENERAL: No weight loss, malaise or fevers. No night sweats. HEENT: Negative for headaches, No changes in hearing or vision, no nose bleeds or other nasal problems. RESPIRATORY: Negative for cough, wheezing and shortness of breath CARDIOVASCULAR: Negative for chest pain, leg swelling and palpitations GI: Negative for abdominal discomfort, blood in stools or black stools and change in bowel habits : Negative for dysuria, frequency and incontinence MUSCULOSKELETAL: Negative for joint pain or swelling, back pain, and muscle pain. SKIN: Negative for lesions, rash, and itching. HEMATOLOGY/LYMPHOLOGY Negative for prolonged bleeding, bruising easily, and swollen nodes. NEURO: Negative for numbness or tingling of hands/feet. No weakness. PHYSICAL EXAMINATION: BP 164/52 Pulse 69 Temp (Src) 97.7 (Temporal) Resp 18 Ht 5' 2.008 (1.58m) Wt 183 lb 9.6 oz (83.3kg) SpO2 94% BMI 33.57 kg/(m^2). ECOG PERFORMANCE STATUS: 0- Fully active, able to carry on all pre-disease performance w/o restriction. PHYSICAL EXAMINATION General: Alert and oriented, no distress, pleasant and cooperative. Heart: Regular, normal S1 and S2, no murmurs, rubs, or gallops Lungs: Clear to auscultation bilaterally Abdomen: Benign Extremities: Feet/ankles without edema, posterior tibial pulses full and symmetrical Breasts: Right lumpectomy scar tissue. No masses. No skin changes. Axillary exam negative Left breast exam without masses and no bilateral axillary lymphadenopathy. LABS: PATH: Imaging: Assessment and Plan: Nora Parnell is a 80 year old year old female here for follow up. 81-year-old diagnosed in 2014 with a 2.2 cm, invasive lobular carcinoma, ER and ME 95% positive, HER-2/suresh negative status post lumpectomy and sentinel lymph node biopsy. She received right breast radiation therapy and had been on adjuvant aromatase inhibitor since February 2015 and stopped October 2019 after 5 years of therapy. She has no clinical evidence of disease. Will repeat her mammogram in 1 year and follow up. Genny Winters PA-C CC: Noble Ferguson MD documented in this encounterUniversity [facility]04-14-[facility]22 Miscellaneous Notes* Telephone Encounter - Stephen Caabllero MD - 09/22/2021 1:41 PM EDT Screening is fine. She is 7 years out * Telephone Encounter - Adalgisa Beck RN - 09/22/2021 12:14 PM EDT Patient is scheduled for a screening mammogram on 10/09/21 at [facility]. The diagnosis of malignant neoplasm will not work for a screening mammogram. Patient is 7 years from diagnosis. Would you like to continue with a screening mamm and change the diagnosis to personal history of breast cancer or change the order to a diagnostic mamm? Thanks Sierra Beck RN documented in this encounterUniversity [facility]als [facility] CenterEvalubee[facility] center note* Diagnosis Encounter for screening mammogram for malignant neoplasm of breast- Primary Other screening mammogram documented in this encounter [facility]Eval[facility] noteNo Replay SolutionsChildren'S Mercy NorthlandDatavolution Other Evaluation note* Diagnosis Onset Date Resolution Status History of breast cancer acu te History of radiation exposure acute Nonhealing surgical wound ac [facility] Work Phone: Evaluation note* Diagnosis Onset Date Resolution Status Essential hypertension acute Cerumen impaction noneactive History of breast cancer acu te History of radiation exposure acute Nonhealing surgical wound ac [facility] Work Phone: History general Narrative - Reported* Type Description Date Medical History high blood pressure Medical History thyroid disease Medical History heart disease Medical History acid reflux Medical History COPD Medical History Basal cell carcinoma of face Medical History Hx of breast cancer Medical History Nicotine dependence, cigarettes, in remission Medical History Essential hypertension Medical History Hyperlipidemia type II Medical History Gastroesophageal ref lux disease with esophagitis without hemorrhage Medical History Autoimmune hypothyroidism Medical History Chronic bronchitis, mucopurulent Medical History ASHD (arteriosclerotic heart dis ease) Medical History De Quervain's tenosynovitis Medical History Perirectal abscess Medical History Necrotizing fasciitis Medical History Lumbar spondylosis Medical History Right carotid bruit Medical History Insomnia Medical History Polyuria Medical History Breast cancer, right Surgical History tonsillectomy and adenoidectomy Surgical History HYSTERECTOMY Surgical History heart stent Surgical History D&C Surgical History shoulder arthroscopy Surgical History cervical biopsy Surgical History laminectomy Surgical History biopsy Surgical History cataract Surgical History knee arthroscopy Surgical History right hip replacement Surgical History SHOT IN LEFT KNEE Surgical History REMOVAL OF NAIL BED RIGHT TOE Surgical History knee replacement Surgical History ovarian cyst Surgical History colonoscopy Surgical History breast cancer Surgical History colon resection Surgical History left hip replacement Surgical History Basal cell skin cancer Hospitalization History SEE ABOVE [facility] Other Hisejrr general Narrative - Reported* Type Description Date Medical History high blood pressure Medical History thyroid disease Medical History heart disease Medical History acid reflux Medical History COPD Medical History Basal cell carcinoma of face Medical History Hx of breast cancer Medical History Nicotine dependence, cigarettes, in remission Medical History Essential hypertension Medical History Hyperlipidemia type II Medical History Gastroesophageal ref lux disease with esophagitis without hemorrhage Medical History Autoimmune hypothyroidism Medical History Chronic bronchitis, mucopurulent Medical History ASHD (arteriosclerotic heart dis ease) Medical History De Quervain's tenosynovitis Medical History Perirectal abscess Medical History Necrotizing fasciitis Medical History Lumbar spondylosis Medical History Right carotid bruit Medical History Insomnia Medical History Polyuria Medical History Breast cancer, right Surgical History tonsillectomy and adenoidectomy Surgical History HYSTERECTOMY Surgical History heart stent Surgical History D&C Surgical History shoulder arthroscopy Surgical History cervical biopsy Surgical History laminectomy Surgical History biopsy Surgical History cataract Surgical History knee arthroscopy Surgical History right hip replacement Surgical History SHOT IN LEFT KNEE Surgical History REMOVAL OF NAIL BED RIGHT TOE Surgical History knee replacement Surgical History ovarian cyst Surgical History colonoscopy Surgical History breast cancer Surgical History colon resection Surgical History left hip replacement Surgical History Basal cell skin cancer Hospitalization History SEE ABOVE Hospitalization History SEE ABOVE [facility] Other History general Narrative - [facility]ortedNosouth[facility] Brocc[facility] Other History general Narrative - Reported* Type Description Date Medical History high blood pressure Medical History thyroid disease Medical History heart disease Medical History acid reflux Medical History COPD Medical History Basal cell carcinoma of face Medical History Hx of breast cancer Medical History Nicotine dependence, cigarettes, in remission Medical History Essential hypertension Medical History Hyperlipidemia type II Medical History Gastroesophageal ref lux disease with esophagitis without hemorrhage Medical History Autoimmune hypothyroidism Medical History Chronic bronchitis, mucopurulent Medical History ASHD (arteriosclerotic heart dis ease) Medical History De Quervain's tenosynovitis Medical History Perirectal abscess Medical History Necrotizing fasciitis Medical History Lumbar spondylosis Medical History Right carotid bruit Medical History Insomnia Medical History Polyuria Medical History Breast cancer, right Surgical History tonsillectomy and adenoidectomy Surgical History HYSTERECTOMY Surgical History LHC, PCI/stent RCA 2018 Surgical History D&C Surgical History shoulder arthroscopy Surgical History cervical biopsy Surgical History laminectomy Surgical History biopsy Surgical History cataract Surgical History knee arthroscopy Surgical History right hip replacement Surgical History SHOT IN LEFT KNEE Surgical History REMOVAL OF NAIL BED RIGHT TOE Surgical History knee replacement Surgical History ovarian cyst Surgical History colonoscopy Surgical History breast cancer Surgical History colon resection Surgical History left hip replacement Surgical History Basal cell skin cancer Hospitalization History SEE ABOVE [facility] Other Hisnqnx general Narrative - Reported* Type Description Date Medical History high blood pressure Medical History thyroid disease Medical History heart disease Medical History acid reflux Medical History COPD Medical History Basal cell carcinoma of face Medical History Hx of breast cancer Medical History Nicotine dependence, cigarettes, in remission Medical History Essential hypertension Medical History Hyperlipidemia type II Medical History Gastroesophageal ref lux disease with esophagitis without hemorrhage Medical History Autoimmune hypothyroidism Medical History Chronic bronchitis, mucopurulent Medical History ASHD (arteriosclerotic heart dis ease) Medical History De Quervain's tenosynovitis Medical History Perirectal abscess Medical History Necrotizing fasciitis Medical History Lumbar spondylosis Medical History Right carotid bruit Medical History Insomnia Medical History Polyuria Medical History Breast cancer, right Surgical History tonsillectomy and adenoidectomy Surgical History HYSTERECTOMY Surgical History LHC, PCI/stent RCA 2018 Surgical History D&C Surgical History shoulder arthroscopy Surgical History cervical biopsy Surgical History laminectomy Surgical History biopsy Surgical History cataract Surgical History knee arthroscopy Surgical History right hip replacement Surgical History SHOT IN LEFT KNEE Surgical History REMOVAL OF NAIL BED RIGHT TOE Surgical History knee replacement Surgical History ovarian cyst Surgical History colonoscopy Surgical History breast cancer Surgical History colon resection Surgical History left hip replacement Surgical History Basal cell skin cancer Surgical History Debridement right breast ulcera tion 01/2023 Hospitalization History SEE ABOVE [facility]DCapsule Other History general Narrative - Reported* Type Description Date Medical History high blood pressure Medical History thyroid disease Medical History heart disease Medical History acid reflux Medical History COPD Medical History Basal cell carcinoma of face Medical History Hx of breast cancer Medical History Nicotine dependence, cigarettes, in remission Medical History Essential hypertension Medical History Hyperlipidemia type II Medical History Gastroesophageal ref lux disease with esophagitis without hemorrhage Medical History Autoimmune hypothyroidism Medical History Chronic bronchitis, mucopurulent Medical History ASHD (arteriosclerotic heart dis ease) Medical History De Quervain's tenosynovitis Medical History Perirectal abscess Medical History Necrotizing fasciitis Medical History Lumbar spondylosis Medical History Right carotid bruit Medical History Insomnia Medical History Polyuria Medical History Breast cancer, right Surgical History tonsillectomy and adenoidectomy Surgical History HYSTERECTOMY Surgical History LHC, PCI/stent RCA 2019 Surgical History D&C Surgical History shoulder arthroscopy Surgical History cervical biopsy Surgical History laminectomy Surgical History biopsy Surgical History cataract Surgical History knee arthroscopy Surgical History right hip replacement Surgical History SHOT IN LEFT KNEE Surgical History REMOVAL OF NAIL BED RIGHT TOE Surgical History knee replacement Surgical History ovarian cyst Surgical History colonoscopy Surgical History breast cancer Surgical History colon resection Surgical History left hip replacement Surgical History Basal cell skin cancer Surgical History Debridement right breast ulcera tion 01/2023 Surgical History Debridement right breast ulcera tion 05/2023 Hospitalization History SEE ABOVE MDCapsule Other Progress note Author Luis Angel Saucedo [facility] August 28, 2023 9:48am Note Date/Time August 28, 2023 9:4 8am [facility] [address] [place] [address] Wound Center Provider Note Signed Patient: Nora Parnell MR#: [id number] : 1940 Acct:[id number] Age/Sex: 83 / F Copies to: Luis Angel V Saucedo,MD Noble Ball,DO~ HPI Date of Visit Date of Visit: Date of Service: 08/28/2023 Time of Service: 09:44 Narrative HPI: Patient is being followed for the right breast wound. The wound is now epithelialized. Previous history: She is an 83-year-old female who about a years ago underwent right breast lumpectomy for breast cancer. She underwent radiation therapy afterward. She apparently had developed a hematoma around that time. In August of this year, patient developed drainage from the site with an open wound. She thought this might be from the previous hematoma. She did see her surgeon in [place] who did her previous surgery. Patient had some punch biopsies performed to rule out cancer which apparently did not show any cancer. She did develop nonhealing wound at this site. She underwent a couple debridements and closures in [place] but each time, the wound did open up and start draining. The last debridement was last month. The surgeon who did her previous surgerieshas since left and the patient did see Dr. Kurtz last week. He did remove some remaining sutures and the patient was then referred here. Patient is currently having dressing changes performed at the [facility]. She has an open right breast wound with a skin bridge in between. Base of the wound shows some yellowish eschar. There has been quite abit of drainage from the site. History is significant for previous coronary stent placement. She is on aspirin. Patient states that her follow up studies for her breast cancer have been good and there has been no evidence of any recurrent cancer. Patient's last mammogram was in August of this year. Subjective Pain Right Breast: Pain Intensity: 0 Wound/Ulcer History When did wound start?: 08/2022 Mode of Arrival/ Baggage Screener: Personal vehicle Lives with:: Alone Appetite Description: Within Normal Limits Who helps w/ dressing change?: Home Health and Wound Care Dept Why Do You Need Help?: Can't Reach Ulcer Smoking Status: Former smoker Constitutional Constitutional: Denies fever(s) [facility] Medical History Stage 3a chronic kidney disease Nicotine dependence, cigarettes, in remission Necrotizing fasciitis Insomnia Essential hypertension Dysesthesia De Quervain's tenosynovitis Chronic venous insufficiency Chronic bronchitis, mucopurulent Cataract Hx of skin cancer, basal cell Basal cell carcinoma of face ASHD (arteriosclerotic heart disease) Pernicious anemia Primary insomnia Osteoporosis Breast cancer Hyperlipidemia Hypothyroidism Surgical History History of tonsillectomy and adenoidectomy History of hysterectomy H/O dilation and curettage H/O colonoscopy H/O cervical biopsy Hx of heart artery stent Hx of fusion of cervical spine History of appendectomy History of joint replacement History of colostomy Hx of skin graft History of lumpectomy of right breast Family History Father Myocardial infarction Sister Cancer Father Mother Social History Smoking Status: Former smoker Tobacco Type: cigarettes Substance Use Type: None Grafts History of Graft History of Graft?: No Graft Information Autologous Skin Graft: Approximate date of previous graft application: 01/01/23 Number of Graft Applications: 3 Exam Physical Exam Vital Signs: Temp Pulse Resp BP O2 Del Method 96.6 F L 65 18 161/57 H Room Air 08/28/23 09:24 08/28/23 09:24 08/28/23 09:24 08/28/23 09:24 08/28/23 09:24 Const General: cooperative and no acute distress Neuro General: patient alert and patient awake Lower/Upper Extremity Exam Vascular Exam-Pulses Left Brachial: Pulse Assessment Method: NIBP Objective Meds/Allergies Home Medications amlodipine 10 mg tablet 10 mg PO QAM 04/24/23 [History Confirmed 08/10/23] aspirin 81 mg chewable tablet 81 mg PO DAILY 04/24/23 [History Confirmed 08/10/23] atorvastatin 40 mg tablet 40 mg PO DAILY 04/24/23 [History Confirmed 08/10/23] biotin 1,250 mcg-collagen 50 mg-vit C 67.5 mg-vit E-herbal chew tablet 2 tab PO DAILY.PC.SUPPER 04/24/23 [History Confirmed 08/10/23] calcium carbonate 600 mg-vitamin D3 10 mcg (400 unit) tablet (Calcium 600 + D(3)) 1 tab PO DAILY 04/24/23 [History Confirmed 08/10/23] fluticasone fur. 200 mcg-umeclid 62.5 mcg-vilant 25 mcg inhalat.powder (Trelegy Ellipta) 1 inh inhalation DAILY 04/24/23 [History Confirmed 08/10/23] inulin 2 gram chewable tablet (Fiber Gummies) 2 g PO BID 04/24/23 [History Confirmed 08/10/23] isosorbide mononitrate 60 mg tablet,extended release 24 hr 60 mg PO QAM 04/24/23[History Confirmed 08/10/23] levothyroxine 88 mcg tablet 88 mcg PO QAM 04/24/23 [History Confirmed 08/10/23] lisinopril 20 mg tablet 20 mg PO QAM 04/24/23 [History Confirmed 08/10/23] acetaminophen 500 mg tablet 500 mg PO Q6H PRN Pain 05/17/23 [History Confirmed 08/10/23] albuterol sulfate 90 mcg/actuation aerosol inhaler 2 puff inhalation DIRECTEDPRN Shortness Of Breath 05/17/23 [History Confirmed 08/10/23] cyanocobalamin (vitamin B-12) 1,000 mcg/mL injection solution 1,000 mcg IM QMONTH 05/17/23 [History Confirmed 08/28/23] temazepam 30 mg capsule 30 mg PO QHS 30 days #30 ea 08/03/23 [Rx Confirmed 08/28/23] Allergies penicillamine Allergy (Unknown, Verified 08/10/23 13:53) Hives Penicillins Allergy (Unknown, Verified 08/10/23 13:53) Hives Sulfa (Sulfonamide Antibiotics) Allergy (Unknown, Verified 08/10/23 13:53) Hives sulfacetamide [Sulfacet-R] Allergy (Unknown, Verified 08/10/23 13:53) Rash sulfur [Sulfacet-R] Allergy (Unknown, Verified 08/10/23 13:53) Rash Wound/Ulcer Right Breast: Bed Appearance: Other Percent of Wound Bed Granulated/Red: 60 Percent of Devitalized: 40 Length (cm): 0 Width (cm): 0 Depth (cm): 0 CM Sq: 0.000 Surrounding Tissue Appearance: [place] Surrounding Tissue Temp: Warm Drainage Amount: None Drainage Description: Yellow Drainage Odor: No Odor Lidocaine Applied Topically: 2% Jelly Results Height: 5 ft Weight: 81.647 kg Body Mass Index: 35.2 Assessment/Plan Assessment/Plan (1) Nonhealing surgical wound: Qualifiers: Encounter type: initial encounter Qualified Code(s): T81.89XA - Other complications of procedures, not elsewhere classified, initial encounter Code(s): T81.89XA - Other complications of procedures, not elsewhere classified, initial encounter (2) History of radiation exposure: Code(s): Z92.3 - Personal history of irradiation (3) History of breast cancer: Code(s): Z85.3 - Personal history of malignant neoplasm of breast Plan The wound is healed. The wound is epithelialized down to the depth of the wound, creating a little bit of it. Patient is encouraged to keep this area clean and dry. She can use a cotton swab after showers to help with this. Patient did ask about revising the wound. With the patient's wound healing problems, history of radiation treatment, I would be concerned about wound healing problems if she had any more surgery to the area. However, if the patient does develop problems such as recurrent infections of the area, we can discuss this. Otherwise, patient will be discharged from the office and continue to follow with her other physicians. See Instructions for Orders See Instructions for Orders See Wound Discharge Instructions for Orders: Dictated By: Luis Angel Saucedo MD DD/ Signed By: <Electronically signed by MD Luis Angel Saucedo> 08/28/23 0948 [facility] Work Phone: Reason for referral (narrative)* Diagnostic Procedure Only (Routine) - Pending Review Specialty Diagnoses / Procedures Referred By Jann t Referred To Contact [facility] Diagnoses Encounter for screening mammogram for malignant neoplasm of breast Procedures KAREN SCREENING SCREENING MAMMOGRAPHY BI 2-VIEW BREAST INC Genny Pitts PA-C [address] [place] [address] [place] [address] [facility] [address] [place] [address] Referral ID Status Reason Start Date Expiration Date Visits Requested Visits Authorized [id number] Pending Review Auto-Generat ed Referral 10/19/2021 11/18/2022 1 1 [facility] for referral (narrative)* Reason *FU 09/04 Referral for right breast abscess Diagnosis 1 Breast abscess of fe male (N61.1) Referral Organization [facility] david Referring Provider First Name Noble Referring Provider Last Name Marty Referring Provider Specialty Internal Me dicine Referred Organization Unknown Facility Referred Provider Checo Reis Referred Provider Specialty Surgery Referral Priority Routine General Notes Kelly Gilbert 01:34:05 PM >received today, notes locked, and referral faxed Kelly Gilbert 08/28/2022 12:05:49 PM >FAXED FIRST ATTEMPT LETTER Clinical Notes . . MDCapsule Other Summary Purpose Family History No Family History Records Found Relationship Condition Age at Onset Recorded Date/T nithin father Myocardial infarction Unknown sister Malignant neoplasm Unknown Relationship Condition Age at Onset Recorded Date/T nithin father Myocardial infarction Unknown sister Malignant neoplasm Unknown father Unknown Not Specified Unknown Advance Directives No Advanced Directives Records Found Advance Directive Response Recorded Date/ Time Advance Directives No November 26 7:48am Advance Directive Response Recorded Date/ Time Advance Directives No November 26 8:48am Chief Complaint and Reason for Visit Chief Complaint Open Wound - post op Right Breast Wound Reason for Visit History of breast ca ncer History of radiation exposure Nonhealing surgical wound Chief Complaint Open Wound - post op Right Breast Wound Right Breast Wound Reason for Visit History of breast ca ncer History of radiation exposure Nonhealing surgical wound Chief Complaint Amb Documentation B-12 SHOT ear flushing Open Wound Reason for Visit Essential hypertensi on Cerumen impaction History of breast cancer History of radiation exposure Nonhealing surgical wound Additional Source Comments INFORMATION SOURCE (unrecogn ized section and content) DATE CREATED AUTHOR 09/16/2018 [facility] DATE CREATED AUTHOR AUTHOR'S ORGANIZ ATION 08/23/2022 [facility] DATE CREATED AUTHOR AUTHOR'S ORGANIZ ATION [facility]/17/2022 [facility] DATE CREATED AUTHOR AUTHOR'S ORGANIZ ATION 04/15/2023 [facility] DATE CREATED AUTHOR AUTHOR'S ORGANIZ ATION 06/27/2023 [facility] DATE CREATED AUTHOR AUTHOR'S ORGANIZ ATION 09/20/2023 [facility] Source Comments (unrecognize d section and content) In the event this informatio n is protected by the Federal Confidentiality of Alcohol and Drug Abuse Patient Records regulations: The Federal rules restrict any use of the information to criminally investigate or prosecute any alcohol or drug abuse patient.[facility] the event this information is protected by the Federal Confidentiality of Alcohol and Drug Abuse Patient Records regulations: The Federal rules restrict any use of the information to criminally investigate or prosecute any alcohol or drug abuse patient.[facility] Reason for Visit (unrecogniz ed section and content) Reason Comments Breast Cancer 1 year follow up Reason Comments Orders Care Teams (unrecognized sec tion and content) [employer] Rele[employer] Relationship Specialty Start Date End Date Noble Ferguson DO PCP - General Internal Medicine 11/09/14 [employer] Relationship Specialty Start Date End Date Noble Ferguson DO PCP - General Internal Medicine 11/09/14 Team Status: Active Member Role Status Dates Noble Ferguson DO Primary Care Provider Active Team Status: Active Member Role Status Dates Noble Ferguson DO Primary Care Provider Active Luis Angel Saucedo MD Attending Provider Active Team Status: Inactive Member Role Status Dates Noble Ferguson , DO Primary Care Provider Active Luis Angel Saucedo MD Attending Provider Active Team Status: Active Member Role Status Dates Noble Ferguson DO Primary Care Provider Active Start: August 06, 2023 RADHA Swan Attending Provider Active Start : August 06, 2023 Team Status: Inactive Member Role Status Dates Noble Ball , DO Primary Care Provide r, Attending Provider Active Start: August 06, 2023 End: August 06, 2023 Team Status: Inactive Member Role Status Dates Noble Ferguson , DO Primary Care Provide r, Attending Provider Active Start: August 10, 2023 End: August 10, 2023 Team Status: Inactive Member Role Status Dates Noble Ferguson , DO Primary Care Provider Active Start: August 28, 2023 End: August 28, 2023 Luis Angel Saucedo MD Attending Provider Active Sta rt: August 28, 2023 End: August 28, 2023 Goals (unrecognized section and content) Goals may be documented in a n alternate section FOR RECORDS PERTAINING TO PATIENTS WHO ARE OR HAVE BEEN ENROLLED IN A CHEMICAL DEPENDENCY/SUBSTANCEABUSE PROGRAM, SOME INFORMATION MAY BE OMITTED. This clinical summary was aggregated from multiple sources. Caution should be exercised in using it in the provision of clinical care. This summary normalizes information from multiple sources, and as a consequence, information in this document may materially change the coding, format and clinical context of patient data. In addition, data may be omitted in some cases. CLINICAL DECISIONS SHOULD BE BASED ON THE PRIMARY CLINICAL RECORDS. [facility]. provides no warranty or guarantee of the accuracy or completeness of information in this document.
[2023-11-20 11:17] LABS: Basophils Absolute Auto 0.1 10^3/uL (0.0-0.1); Basophils Percent Auto 0.6 % (0.2-2.0); Eosinophils Absolute Auto 0.2 10^3/uL (0.0-0.7); Eosinophils Percent Auto 2.4 % (0.9-7.0); Hematocrit 41.6 % (36.0-48.0); Hemoglobin 13.2 g/dL (12.0-16.0); Immature Granulocytes Abs Auto 0.01 10^3/uL (0.00-0.03); Immature Granulocytes Pct Auto 0.1 % (0.0-0.5); Lymphocytes Absolute Auto 1.8 10^3/uL (1.2-3.8); Lymphocytes Percent Auto 22.3 % (20.5-60.0); Mean Corpuscular HGB Conc 31.7 g/dL (29.9-35.2); Mean Corpuscular Hemoglobin 29.3 pg (26.7-34.0); Mean Corpuscular Volume 92.4 fL (81.0-99.0); Mean Platelet Volume 11.3 fL (9.5-13.5); Monocytes Absolute Auto 0.9 10^3/uL (0.3-0.8); Monocytes Percent Auto 11.2 % (1.7-12.0); Neutrophils Absolute Auto 5.1 10^3/uL (1.4-6.5); Neutrophils Percent Auto 63.4 % (43.0-75.0); Platelet Count 255 10^3/uL (150-450); Red Cell Distribution Width 13.2 % (11.0-15.0)
[2023-11-20 11:40] LABS: Anion Gap 12.9; BUN Creatinine Ratio 17.9; Calcium 9.4 mg/dL (8.5-10.1); Carbon Dioxide 26.3 mmol/L (21.0-32.0); Chloride 106 mmol/L (98-107); Estimated GFR (African America 56 (>=60); Estimated GFR (Non-African Ame 46 (>=60); Glucose 108 mg/dL (74-106); Potassium 4.2 mmol/L (3.5-5.1); Sodium 141 mmol/L (136-145); Thyroid Stimulating Hormone 0.205 uIU/mL (0.358-3.740)
== END 2023-11-20 10:20 | disposition home or self-care (01) ==
LOC: LAB 10:21
PROVIDERS: PCP Internal Medicine; Visit Provider Internal Medicine
DX: N18.31 Chronic kidney disease, stage 3a (principal); R60.9 Edema, unspecified; I50.33 Acute on chronic diastolic (congestive) heart failure; E03.9 Hypothyroidism, unspecified
CPT/HCPCS: 36415; 80048; 83880; 84443; 85025

== ENCOUNTER 2023-12-06 10:57 | Outpatient (OUT) | payer MEDICARE, SELFPAY ==
--- NOTE | 2023-12-06 10:45 | NM_ITS ---
Patient Name: LAWSON GIBBS MR#: [id number] : 1940 Exam Date: 12/06/2023 Ordering Doctor: DR BALA ROBLES M.D. RADIOLOGY REPORT PROCEDURE: NM ROSITA PERF SPECT REST STR COMPARISON: None. INDICATIONS: SHORTNESS OF BREATH, CORONARY ARTERY DISEASE TECHNIQUE: Exam Description: Stress/Rest one day protocol gated SPECT Rest Imagin.0 mCi Tc-99m Cardiolite IV on 12/06/2023 Stress Imaging 30.6 mCi Tc-99m Cardiolite IV on 12/06/2023 Exercise Protocol: 0.4 mg Lexiscan given IV Heart Rate (bpm): Rest: 61 Max: 80 PMHR: 59 Blood Pressure: Rest: 178/62 Max: 178/62 Symptoms: CHEST PAIN, JAW PAIN Rest and peak stress ECG findings were normal and the exercise portion of the study was normal per attending physician Dr. Prasanna Ferguson . For more details please see separate cardiac stress test report. FINDINGS: QUALITY OF STUDY: Good. PERFUSION DEFECT: LOCATION: Mid-anterior. SIZE: Small (1-2 segments). SEVERITY: Mild. TYPE: Persistent. WALL MOTION: Normal. LV SIZE: Normal. 66 mL. TID / TCD: None; 0.9 LVEF: Normal. Calculated EF 88%. SUMMARY: Myocardial perfusion imaging study has ABNORMAL findings. CONCLUSION: 1. Small fixed defect mid anterior wall, LAD distribution. Breast attenuation artifact is favored 2. Normal exercise test Dictated by: Matthias Lopez MD on 12/06/2023 at 14:44 Approved by: Matthias Lopez MD on 12/06/2023 at 14:46
--- OUTSIDE RECORDS SUMMARY | 2023-12-06 11:08 | XMS_ITS ---
Patient Summarization (C-CDA 2.1 CCD) Created on: December 06, 2023 Nora Parnell : 1940 Sex: Female Author Organization Sample organization Care Team Providers Care Antisqueak Chalker Name Role Phone PHYSICIAN, DEFAULT Admitting Unavailable [...] Attending Unavailable BALL, DR NEWSOME Admitting Unavailable TAMLYN ., RITU Attending Unavailable TAMLYN ., RITU Admitting Unavailable BALL, DR NEWSOME Primary Care Unavailable TAMLYN ., RITU Attending Unavailable TAMLYN ., RITU Admitting Unavailable BALL, NOBLE Primary Care Unavailable DO Noble Ferguson Primary Care Provider [phone] MD Luis Angel Saucedo Attending Provider [phone] DO Noble Ferguson Primary Care Provider MD Luis Angel Saucedo Attending Provider RylanDO [place] [place] [facility] Provider DO Noble Ferguson Primary Care Provider [phone] DO Jim Clay Admit Provider DO Jim Clay Attending Provider [phone] STEFANIE GAYTAN Attending Unavailable BALA ROBLES Attending Unavailable Luis Angel Saucedo Admitting Unavailable Luis Angel Saucedo Attending Unavailable Noble Ferguson Primary Care Unavailable Lewis, Luis Angel Admitting Unavailable Luis Angel Saucedo Attending Unavailable Noble Ferguson Primary Care Unavailable Jim Clay Admitting Unavailable Jim Clay Attending Unavailable Noble Ferguson Primary Care Unavailable Lewis, Luis Angel Admitting Unavailable Lewis, Luis Angel Attending Unavailable Noble Ferguson Primary Care Unavailable Allergies Allergy Classification Reported Allergen(s) Allergy Type Date of Onset Reaction(s) Facility penicillAMINE (1 source) penicillAMINE Drug Allergy 11-30-19 24 [facility] Penicillins (antibiotic) (1 source) Penicillins Drug Allergy 11-30-19 24 [facility] Sulfonamides (antibiotic) (2 sources) Sulfonamides (Antibiotic) Drug Allergy 11-30-19 24 [facility] Sulfur (1 source) Sulfur Drug Allergy 11-30-19 24 [facility] (8 sources) Penicillins; 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: [PENICILLINS] Drug allergy (disorder) 04-28-20 14 [facility] Repository (8 sources) Sulfonamides (Antibiotic); 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: [SULFA (SULFONAMIDE ANTIBIOTICS)] Drug allergy (disorder) 06-11-18 94 [facility] Repository (17 sources) Penicillins Drug Allergy 05-15-20 14 Unknown [facility] (17 sources) Sulfonamides (Antibiotic) Drug Allergy 05-15-20 14 Unknown [facility] (20 sources) guaiFENesin Drug Allergy Unknown [facility]lbs Other (20 sources) penicillAMINE Drug Allergy 08-10-19 24 Unknown, Hives [facility] (20 sources) Sulfacetamide / Sulfur Drug Allergy Unknown [facility] Other (15 sources) Dextromethorphan Drug Allergy 07-22-19 14 Unknown [facility] Other (15 sources) guaiFENesin Drug Allergy 07-22-19 14 Unknown [facility] Other (1 source) Penicillin Drug Allergy Unknown [facility]lbs Other (15 sources) Sulf-10 Drug allergy Unknown [facility] 71lbs Other (1 source) patient allergy list reviewed by nurse or physicia Propensity to adverse reactions 05-09-20 13 Comment:Done [facility] Other (1 source) Allergies Reconciled Propensity to adverse reactions Unknown [facility] Other (3 sources) Sulfacetamide; 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: [sulfacetamide] Drug Allergy 08-10-19 [facility] (3 sources) Sulfur; 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: [sulfur] Drug Allergy 08-10-19 [facility] (1 source) penicillAMINE Drug Allergy 11-30-19 [facility] Repository (1 source) Penicillins Drug allergy (disorder) 11-30-19 [facility] (1 source) Sulfonamides (Antibiotic) Drug allergy (disorder) 11-30-19 [facility] Repository Encounters Encounter Date Encounter Type Care Provider Facility Start: 11-30-2023 End: 12-01-2023 Evaluation and management of inpatient DO Nika Fagan Work Phone: [facility] [place] [facility] Work Phone: Start: 11-30-2023 End: 12-01-2023 observation encounter DO Nika Fagan Work Phone: [facility] Work Phone: Start: 11-30-2023 End: 12-01-2023 ambulatory Jim Clay Facility:[facility] Start: 11-23-2023 End: 11-23-2023 ambulatory [facility] Start: 11-20-2023 Non-patient / Non-visit DO Paulina Fagan Work Phone: [facility] Work Phone: Start: 11-19-2023 End: 11-19-2023 Patient encounter procedure DO Nika Fagan Work Phone: [facility] Work Phone: Start: 11-08-2023 End: 11-08-2023 Patient encounter procedure DO Nika Fagan Work Phone: [facility] Work Phone: Start: 10-08-2023 End: 10-08-2023 Patient encounter procedure DO Nika Fagan Work Phone: [facility] Work Phone: Start: 09-06-2023 End: 09-06-2023 Patient encounter procedure DO Nika Fagan Work Phone: [facility] Work Phone: Start: 08-28-2023 End: 08-28-2023 ambulatory DO Noble Ball Work Phone: [facility] Work Phone: Start: 08-28-2023 End: 08-28-2023 Discharged Recurring DO Noble Ball Work Phone: [facility] [place] Work Phone: Start: 08-10-2023 End: 08-10-2023 Patient encounter procedure DO Noble Ball Work Phone: [facility] Work Phone: Start: 08-06-2023 End: 08-06-2023 Patient encounter procedure DO Noble Ferguson Work Phone: [facility] Work Phone: Start: 08-06-2023 Non-patient / Non-visit DO Prasanna Ferguson Work Phone: [facility] [employer] [facility] [employer] Work Phone: Start: 07-16-2023 End: 07-16-2023 ambulatory Noble Ferguson Other [facility] Other Start: 07-16-2023 Office outpatient vi sit 25 minutes Noble Ferguson [facility] Start: 07-13-2023 End: 07-13-2023 ambulatory Noble Ferguson Other [facility] Other Start: 07-13-2023 Telephone encounter Noble TALAVERA [facility] Start: 07-04-2023 End: 07-04-2023 ambulatory Noble Ferguson Other [facility] Other Start: 07-04-2023 Nursing evaluation o f patient and report Noble Ferguson [facility] Start: 05-30-2023 End: 05-30-2023 ambulatory Noble Ferguson Other [facility] Other Start: 05-30-2023 Nursing evaluation o f patient and report Noble Ferguson [facility] Start: 05-28-2023 Telephone encounter Noble TALAVERA [facility] Start: 05-28-2023 End: 05-28-2023 Admission to same day surgery center DO Noble Ferguson Work Phone: [facility] [place] Start: 05-28-2023 End: 05-28-2023 ambulatory DO Noble Ferguson Work Phone: [facility] Work Phone: Start: 05-17-2023 End: 05-17-2023 Patient encounter procedure DO Noble Ferguson Work Phone: [facility] Work Phone: Start: 05-17-2023 End: 05-17-2023 ambulatory DO Noble Ferguson Work Phone: [facility] Work Phone: Start: 05-15-2023 Registered Recurring DO Rajni in [place] Work Phone: [facility] Work Phone: Start: 04-26-2023 End: 04-26-2023 ambulatory Gayle Wade Other [facility] Other Start: 04-26-2023 Nursing evaluation o f patient and report Gayle Wade [facility] Start: 04-11-2023 End: 04-11-2023 ambulatory [facility] Start: 04-10-2023 End: 04-10-2023 ambulatory Noble Ferguson Other [facility] Other Start: 04-10-2023 Telephone encounter Noble Ball [facility] Start: 03-13-2023 End: 03-13-2023 ambulatory Noble Ball Other [facility] Other Start: 03-13-2023 Patient encounter procedure Noble Ball [facility] Start: 02-15-2023 End: 02-15-2023 ambulatory Noble Ball Other [facility] Other Start: 02-15-2023 Nursing evaluation o f patient and report Noble Ferguson [facility] Start: 01-26-2023 End: 01-26-2023 ambulatory Noble Ball Other [facility] Other Start: 01-26-2023 Telephone encounter Noble Ball [facility] Start: 01-21-2023 End: 01-21-2023 ambulatory Noble Ball Other [facility] Other Start: 01-21-2023 Telephone encounter Noble Ball [facility] Start: 01-17-2023 End: 01-17-2023 ambulatory Noble Ferguson Other [facility] Other Start: 01-17-2023 Telephone encounter Noble Ferguson [facility] Start: 01-15-2023 End: 01-15-2023 ambulatory Noble Ferguson Other [facility] Other Start: 01-15-2023 Nursing evaluation o f patient and report Noble Ferguson [facility] Start: 01-02-2023 End: 01-02-2023 ambulatory Noble Ferguson Other [facility] Other Start: 01-02-2023 Telephone encounter Noble Ferguson [facility] Start: 12-27-2022 End: 12-27-2022 ambulatory Noble Ferguson Other [facility] Other Start: 12-27-2022 Telephone encounter Noble Ferguson [facility] Start: 12-26-2022 End: 12-26-2022 ambulatory Noble Ferguson Other [facility] Other Start: 12-26-2022 Telephone encounter Noble Ferguson [facility] Start: 12-25-2022 End: 12-25-2022 ambulatory Noble Ferguson Other [facility] Other Start: 12-25-2022 Office outpatient vi sit 25 minutes Noble Ferguson [facility] Start: 12-14-2022 End: 12-14-2022 ambulatory Noble Marty Other [facility] Other Start: 12-14-2022 Nursing evaluation o f patient and report Noble Ferguson [facility] Start: 11-13-2022 End: 11-13-2022 ambulatory Noble Ball Other [facility] Other Start: 11-13-2022 Nursing evaluation o f patient and report Nobel Ferguson [facility] Start: 11-09-2022 ambulatory RITU TAMLYN . Facility: [facility] Start: 11-07-2022 ambulatory RITU TAMLYN . Facility: [facility] Start: 11-02-2022 End: 11-03-2022 ambulatory [...] Facility:[facility] Start: 10-16-2022 End: 10-17-2022 ambulatory RITU TAMLYN . Facility:[facility] Start: 10-12-2022 Nursing evaluation o f patient and report Noble Ferguson [facility] Start: 10-12-2022 End: 10-13-2022 ambulatory RITU TAMLYN . [facility] Other Start: 09-27-2022 End: 09-27-2022 ambulatory Noble Ferguson Other [facility] Other Start: 09-27-2022 Office outpatient vi sit 25 minutes Noble Ferguson [facility] Start: 09-12-2022 End: 09-12-2022 ambulatory Noble Ferguson Other [facility] Other Start: 09-12-2022 Nursing evaluation o f patient and report Noble Ferguson [facility] Start: 08-23-2022 End: 08-23-2022 ambulatory Noble Ferguson Other [facility] Other Start: 08-23-2022 Telephone encounter Noble Caruso [facility] Start: 08-22-2022 ambulatory Checo RODRIGEZ Facility : [facility] Start: 08-17-2022 End: 08-18-[address] NOBLE FERGUSON [facility] Other Start: 08-17-2022 Office outpatient vi sit 15 minutes Noble Ferguson [facility] Start: 08-17-2022 Telephone encounter Noble Ferguson FP [facility] Start: 08-10-2022 End: 08-10-2022 ambulatory Noble Ferguson Other [facility] Other Start: 08-10-2022 Office outpatient vi sit 15 minutes Noble Ferguson [facility] Start: 07-11-2022 End: 07-11-2022 ambulatory Gayle Wade Other [facility] Other Start: 07-11-2022 Nursing evaluation o f patient and report Gayle Wade [facility] Start: 01-26-2022 End: 01-27-[address] NOBLE FERGUSON Facility: Start: 01-24-2022 Adult health examination Solomon Ferguson Other [facility] Other Start: 10-19-2021 End: 10-19-2021 ambulatory Genny Winters PA-C Work Phone: Hematology/Oncology Comment on above: Encounter for screen ing mammogram for malignant neoplasm of breast (Primary Dx) Start: 10-19-2021 End: 10-19-2021 Patient encounter procedure Genny Winters PA-C Work Phone: [facility] Start: 09-22-2021 Telephone encounter Stephen jimenes MD Work Phone: Hematology/Oncology Comment on above: Orders Start: 05-20-2019 Preoperative cardiovascular examination Noble Ferguson Other [facility] Other Start: 09-03-2018 End: 09-04-2018 Patient encounter procedure PROVIDER UNKNOWN Facility:[facility] Start: 08-08-2018 End: 08-09-2018 Patient encounter procedure DEFAULT PHYSICIAN Facility:[facility] Goals Date Patient Goal Desired Activity /State Immunizations Immunization Date Immunization Notes Care Provider Sukhwinder plata 03-26-2023 influenza virus vaccine, unspecified formulation DO Noble Ferguson Work Phone: [facility] 03-26-2023 influenza, high dose seasonal, preservative-free Noble Ferguson Other [facility] Other 03-06-2022 influenza virus vaccine, split virus (incl. purified surface antigen) Noble Ferguson Other [facility] Other 03-06-2022 influenza virus vaccine, unspecified formulation DO Noble Ferguson Work Phone: [facility] 03-07-2021 COVID-19 vaccine, ag e 12+ yr (PFIZER-BIONTECH - PURPLE TOP) Genny CAMPOS-C Work Phone: [facility] 03-01-2021 influenza virus vaccine, split virus (incl. purified surface antigen) Noble Ferguson Other [facility] 71lbs Other 03-01-2021 influenza virus vaccine, unspecified formulation DO Noble Ferguson Work Phone: [facility] 09-07-2020 COVID-19 vaccine, ag e 12+ yr (PFIZER-BIONTECH - PURPLE TOP) Genny CAMPOS-C Work Phone: [facility] 08-16-2020 COVID-19 vaccine, ag e 12+ yr (PFIZER-BIONTECH - PURPLE TOP) Genny Winters PA-C Work Phone: [facility] 03-01-2020 influenza virus vaccine, split virus (incl. purified surface antigen) Noble Ferguson Other [facility] 71lbs Other 03-01-2020 influenza virus vaccine, unspecified formulation DO Noble Ferguson Work Phone: [facility] 03-18-2019 influenza virus vaccine, split virus (incl. purified surface antigen) Noble Ferguson Other [facility] Other 03-18-2019 influenza virus vaccine, unspecified formulation DO Noble Ferguson Work Phone: [facility] 03-11-2018 influenza virus vaccine, split virus (incl. purified surface antigen) Noble Ferguson Other [facility] 71lbs Other 03-11-2018 influenza virus vaccine, unspecified formulation DO Noble Ferguson Work Phone: [facility] 03-11-2018 Seasonal trivalent influenza vaccine, adjuvanted, preservative free Genny Vianey PA-C Work Phone: [facility] 03-27-2017 influenza virus vaccine, split virus (incl. purified surface antigen) Noble Ferguson Other [facility]lbs Other 03-27-2017 influenza virus vaccine, unspecified formulation DO Noble Ferguson Work Phone: [facility] 03-27-2017 influenza, high dose seasonal, preservative-free Genny Vianey PA-C Work Phone: [facility] 03-21-2016 influenza virus vaccine, split virus (incl. purified surface antigen) Noble Ferguson Other [facility]lbs Other 03-21-2016 influenza virus vaccine, unspecified formulation DO Noble Ferguson Work Phone: [facility] 03-21-2016 influenza, high dose seasonal, preservative-free Genny Vianey PA-C Work Phone: [facility] 03-24-2015 influenza virus vaccine, split virus (incl. purified surface antigen) Noble Ferguson Other [facility]lbs Other 03-24-2015 influenza virus vaccine, unspecified formulation DO Noble Ferguson Work Phone: [facility] 03-24-2015 pneumococcal conjuga te vaccine, 13 valent Noble Ferguson Other [facility] 03-24-2015 pneumococcal Conjuga te, unspecified formulation; 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: [Need for prophylactic vaccination against Streptococcus pneumoniae (pneumococcus)] Noble Ferguson Other [facility]lbs Other 04-22-2013 tetanus and diphther ia toxoids, adsorbed, preservative free, for adult use (5 Lf of tetanus toxoid and 2 Lf of diphtheria toxoid) Noble Ferguson Other [facility] 04-28-2009 pneumococcal polysaccharide vaccine, 23 valent Noble Ferguson Other [facility] Medications Current Medications Medication Drug Class(es) Dates [...] oral tablet (20 sources) Start: 05-17-2023 take 500 mg by mouth every six hours Acetaminophen Active 500 MG PO Q6H May 17, [...] by mouth every 6 hours as needed. [id number] 200 actuat albuterol 0.09 mg/actuat metered dose [...] the day with plain water Orally Active aspirin 81 mg chewable tablet (20 sources) Platelet Aggregation Inhibitor, Nonsteroidal Anti-inflammatory Drug Start: 3 take 81 mg by mouth once daily [...] Take 40 mg by mouth once daily. Pfobha-Grrhrkzd-Aid C-E-Herbal (5 sources) Start: 3 take 2 tablets by mouth once daily Ipwgyn-Odbvbxvm-Nig C-E-Herbal Active 2 TAB PO Daily after supper April 24, 2023 1:00am Start: 04-24-2023 take 2 tablets by mo wvh once daily Bonzdo-Cgxfmpcw-Mfv C-E-Herbal Active 2 TAB PO Daily after supper April 24, 2023 12:00am bumetanide 0.5 mg oral tablet (4 sources) Loop Diuretic Start: 12-26-2022 take 1 tablet by mouth every twenty-four hours Bumetanide 0.5 MG 1 tablet Orally Once a day for 5 days 18 Christofer, 2023 Active calcium carbonate 1500 mg / cholecalciferol 0.01 mg oral tablet (5 sources) Vitamin D Start: 04-24-2023 take 1 [...] f ood Orally Twice a day Active doxazosin 2 mg oral tablet (4 sources) alpha-Adrenergic Melanie Start: 11-26-2023 End: 11-30-2023 take 2 mg by mouth once daily at bedtime Doxazosin Active 2 MG PO Daily at bedtime November 30, 2023 12:00am doxycycline hyclate 100 mg oral capsule (20 sources) Tetracycline-class Drug Start: 04-10-2023 take 1 capsule by mouth every twelve hours Doxycycline Hyclate 100 MG 1 capsule Orally Twice a day for 10 days Mar, Active Start: 08-10-2022 take 1 capsule by mo wvh twice daily Doxycycline Hyclate 100 MG 1 capsule Orally twice daily for 7 days Aug, Active Fiber (20 sources) Fiber - as direc katia Orally Active Hxvmqasnhwi-Bfxrgmpam-Fdrrmf er (5 sources) Start: 04-24-2023 Ywwaediwsjs-Dqpatkemj-Svsahy er (Trelegy Ellipta) 200-62.5-25 mcg Blister With Device Active 1 INH INHALATION Daily April 24, 2023 1:00am Start: 04-24-2023 Fluticasone-Um eclidin-Vilanter (Trelegy Ellipta) 200-62.5-25 mcg Blister With Device Active 1 INH INHALATION Daily April 24, 2023 12:00am inulin 2000 mg chewable tablet (7 sources) Start: 04-24-2023 take 1 tablet by [...] oral tablet (20 sources) l-Thyroxine Start: 04-24-20 take 88 ug by mouth once daily [...] (20 sources) Angiotensin Converting Enzyme Inhibitor Start: 08-30-2023 take 1 tablet by mouth once daily Lisinopril Active 0 .ROUTE .COMPLEX August 30, 2023 3:12pm TAKE ONE TABLET BY MOUTH DAILY Start: 04-24-2023 End: 08-30-2023 take 20 mg by mouth once daily in the morning Lisinopril Discontinued 20 MG PO Every morning April 24, 2023 1:00am August 30, 2023 3:12pm Comment on above: Take 20 mg by mouth once daily. 24 hr metoprolol succinate 25 mg extended release oral tablet (1 source) beta-Adrenergic Melanie Start: take 12.5 mg by mouth once daily Metoprolol Succinate Active 12.5 MG PO Daily December 01, 2023 12:00am spironolactone 25 mg oral tablet (1 source) Aldosterone Antagonist Start: take 25 mg by mouth once daily Spironolactone Active 25 MG PO Daily December 01, 2023 12:00am trelegy ellipta 200-62.5-25 mcg/act aerosol powder breath activated (5 sources) Start: take 1 puff(s) by inhalation once daily Trelegy Ellipta 200-62.5-25 MCG/ACT 1 puff Inhalation Once a day Nov, Active vitamin b12 1 mg/ml injectable solution (20 sources) Vitamin B12 Start: 023 inject 1000 ug by intramuscular injection every month Cyanocobalamin (Vitamin B-12) Active 1000 MCG IM every month May 17, 2023 1:00am Start: 05-17-2023 inject 1000 ug by in tramuscular injection every month Cyanocobalamin (Vitamin B-12) (Vitamin [...] IN NEBULI ZER EVERY 6 HOURS NEEDED amLODIPine 10 mg oral tablet (20 sources) Dihydropyridine Calcium Channel Melanie Start: 04-24-20 End: 11-26-19 take 10 mg by mouth once daily in the morning Amlodipine Discontinued 10 MG PO Every morning April 24, 2023 1:00am November 26, 2023 4:11pm Comment on above: Take 10 mg by mouth once daily. B-12 - up to 1000 mcg (20 sources) Start: 07-04-19 B-12 - up to 1000 mcg Jun, [...] B-12 - up to 1 000 mcg Jun, 1000 mcg budesonide 0.25 mg/ml inhalation suspension [...] (Vitamin B-12) (Vitamin B-12) 100 mcg/mL Solution (5 sources) Start: 04-24-2023 End: 05-17-2023 Cyanocobalamin (Vitamin B-12) (Vitamin B-12) 100 mcg/mL Solution Discontinued 100 MCG SOLUTION April 24, 2023 1:00am May 17, 2023 11:42am Start: 04-24-2023 End: 05-17-2023 Cyanocobalamin (Vitamin B-12 ) (Vitamin B-12) 100 mcg/mL Solution Discontinued 100 MCG SOLUTION April 24, 2023 12:00am May 17, 2023 10:42am fluocinonide 0.5 mg/ml topical solution (2 sources) Corticosteroid Start: 08-27-2020 fluocinonide (LIDEX) 0.05 % external solution APPLY TO SCALP [...] LET SIT FOR 5 MINUTES BEFORE RINSING. temazepam 30 mg oral capsule (20 sources) Benzodiazepine Start: 02-01-2023 End: 08-03-2023 take 30 mg by mouth once daily at bedtime Temazepam Discontinued 30 MG PO Daily at bedtime April 24, 2023 1:00am August 03, 2023 10:01am Start: 09-07-2022 take 1 capsule by mo uth once daily at bedtime Temazepam 30 mg TAKE ONE CAPSULE BY MOUTH ONCE DAILY AT BEDTIME for 30 Aug, Active Start: 09-24-2020 take 1 capsule by mo uth once daily at bedtime temazepam (RESTORIL) 30 mg cap Take 30 mg by mouth daily at bedtime. 0 09/24/2020 Active Comment on above: Take 30 mg by mouth daily at bedtime. torsemide 20 mg oral tablet (2 sources) Loop Diuretic Start: 11-19-19 End: 11-30-19 take 20 mg by mouth once daily in the morning Torsemide Discontinued 20 MG PO Every morning 7 7 November 19, 2023 12:00am November 30, 2023 3:03pm Triamcinolone (20 sources) Corticosteroid Start: 12-30-19 Start: 12-29-2020 Kenalog -40 mg Dec, 40 mg Start: 11-27-2019 Start: 11-27-2019 Kenalog -40 mg Nov, 40 mg Payers Date Payer Category Payer Self-pay [id number] 2014 Private Health Insurance [facility] A[employer] SUPPLEMENT [id number] 2014-Present [phone] [address] [place] [address] Indemnity [id number] 1996 Medicare MEDICARE MEDICAR E A AND B [id number] 1996-Present [phone] [address] [address] [place] [address] Medicare [id number] 1959 Medicare [id number] 1959 Unknown [id number] 1938 Unknown [id number] 2.16.840.1.493230.3.579.2 .647 1938 Unknown [id number] 2.16.840.1.250427.3.579.2 .647 1938 Unknown [id number] 2.16.840.1.145819.3.579.2 .727 1938 Unknown [id number] 2.16.840.1.566825.3.579.2 .593 1938 Unknown [id number] 2.16.840.1.486936.3.579.2 .593 1938 Unknown [id number] 2.16.840.1.265132.3.579.2 .593 1938 Unknown [id number] 2.16.840.1.976580.3.579.2 .593 1938 Unknown [id number] 2.16.840.1.699017.3.579.2 .593 1938 Unknown [id number] 2.16.840.1.905564.3.579.2 .593 1938 Unknown [id number] 2.16.840.1.094112.3.579.2 .593 1938 Unknown [id number] 2.16.840.1.031185.3.579.2 .593 1938 Unknown [id number] 2.16.840.1.222499.3.579.2 .593 1938 Unknown [id number] 2.16.840.1.735794.3.579.2 .593 1938 Unknown [id number] 2.16.840.1.664390.3.579.2 .593 1938 Unknown [id number] 2.16.840.1.263624.3.579.2 .593 1938 Unknown [id number] 2.16.840.1.302630.3.579.2 .593 Unknown Unknown [id number] 2.16.840.1.973769.3.579.2 .531 Unknown [id number] 2.16.840.1.716053.3.579.2 .531 Unknown [id number] 2.16.840.1.800611.3.579.2 .531 Unknown [id number] 2.16.840.1.586722.3.579.2 .531 Plan of Treatment Date Care Activity Detail Author Start: 12-01-2023 End: 12-01-2023 [facility] Start: 11-30-2023 Duplex scan of lower limb veins US venous duplex LE BI [facility] Start: 11-30-2023 US Lower extremity v ein - bilateral [facility] Start: 11-30-2023 End: 11-30-2023 [facility] Start: 11-30-2023 Hospital admission [facility] Start: 05-28-2023 Aerobic Culture Aerobic Culture [facility] Start: 05-28-2023 Anaerobic Culture Anaerobic Culture [facility] Start: 05-28-2023 Microscopic observat ion [Identifier] in Unspecified specimen by Gram stain [facility] Start: 05-28-2023 End: 05-28-2023 [facility] Start: 04-14-2022 DIABETES SCREEN DIABETES SCREEN [facility] Start: 02-09-2022 Influenza vaccination INFLUENZ A (Season Ended) [facility] Start: 07-07-2021 COVID-19 VACCINE (4 - Booster for Pfizer series) COVID-19 VACCINE (4 - Booster for Pfizer series) [facility] Start: 06-11-2021 ADVANCE DIRECTIVE DISCUSSION ADVANCE DIRECTIVE DISCUSSION [facility] Start: 2003 BONE DENSITY BONE DENSITY [facility] Start: 2003 PNEUMOVAX AGE 65 AND OVER WITH 5YR LOOKBACK (#1) PNEUMOVAX AGE 65 AND OVER WITH 5YR LOOKBACK (#1) [facility] Start: 1988 SHINGRIX VACCINE (1 of 2) SHINGRIX VACCINE (1 of 2) [facility] Start: 1957 SHINGRIX VACCINE (1 of 2) SHINGRIX VACCINE (1 of 2) [facility] Start: 1957 Urine microalbumin profile DTAP,TDAP,TD (1 - Tdap) [facility] Start: 1944 PNEUMOCOCCAL: 65+ (1 - PCV) PNEUMOCOCCAL: 65+ (1 - PCV) [facility] Bacteria identified in Unspecified specimen by Aerobe culture [facility] Bacteria identified in Unspecified specimen by Anaerobe culture [facility] Patient Education [facility] Work Phone: Patient referral [facility] Work Phone: End: 11-18-2022 Screening mammography bi 2-view breast inc cad [facility] SCREENING Radiology Routine Encounter for screening mammogram for malignant neoplasm of breast 1 Occurrences starting 10/19/2021 until 11/18/2022 [facility] Work Phone: Comment on above: 1 Occurrences starti ng 10/19/2021 until [facility] Problems Active Problems Problem Classification Problem Date [...] chronic bronchitis] Onset: 09-03-2018 Resolved: 03-01-2021 Chronic Congestive heart failure; nonhypertensive (4 sources) Acute exacerbation of chronic congestive heart failure; 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: [Acute on chronic diastolic (congestive) heart failure] Onset: 11-30-2023 11-19-2023 Chronic Coronary atherosclerosis and other heart disease (20 sources) Atherosclerotic heart disease of [place] coronary artery with unstable angina pectoris; 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: [Coronary arteriosclerosis] Onset: 09-03-2018 Chronic Coronary atherosclerosis and other heart disease (2 sources) Presence of coronary angioplasty implant and graft; 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: [Presence of coronary angioplasty implant and graft] Onset: 11-23-2023 Episodic Deficiency and other anemia (2 sources) Anemia due to chronic blood loss; 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: [Iron deficiency anemia secondary to blood loss (chronic)] Onset: 08-30-2015 Chronic Deficiency and other anemia (20 sources) Pernicious anemia; 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: [Vitamin B12 deficiency anemia due to intrinsic factor deficiency] 08-06-2023 Episodic Deficiency and other anemia (14 sources) Vitamin B12 deficiency anemia due to intrinsic factor deficiency; 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: [Pernicious anemia] Episodic Disorders of lipid metabolism (20 sources) [...] for immunization] Episodic Miscellaneous mental health disorders (3 sources) Primary insomnia; 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: [Primary insomnia] 08-03-2023 Chronic Nonmalignant breast conditions (2 sources) Fibrocystic disease of breast; 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: [Diffuse cystic mastopathy of unspecified breast] Chronic Nonmalignant breast conditions (20 sources) Cellulitis of breast; 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: [Mastitis without abscess] Onset: 08-22-2022 Episodic Nonspecific chest pain (7 sources) Chest pain; 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: [Chest pain, unspecified] Onset: 07-25-2018 11-30-2023 Episodic Nutritional deficiencies (2 sources) Vitamin D deficiency; 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: [Vitamin D deficiency, unspecified] Onset: 11-08-2017 Chronic Osteoarthritis (20 sources) Osteoarthritis of right knee joint; 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: [Unilateral primary osteoarthritis, right knee] Onset: 06-11-1959 Chronic Osteoporosis (2 sources) Primary osteoporosis; 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: [Age-related osteoporosis without current pathological fracture] Chronic Other aftercare (1 source) 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; 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: [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] Onset: 09-03-2018 Episodic Other aftercare (2 sources) Long-term current use of drug therapy; 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: [Other assisted (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] Episodic Other circulatory disease [...] of falling] Episodic Other lower respiratory disease (3 sources) Shortness of breath; 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: [SHORTNESS OF BREATH] [...] ORGN/SYS] Onset: 08-22-2022 Episodic Residual codes; unclassified (20 sources) Edema of lower extremity; 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: [Localized edema] 11-19-2023 Episodic Residual codes; unclassified (8 sources) Localized edema; 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: [Edema] Onset: 11-30-2023 Episodic Residual codes; unclassified (1 source) Requires influenza virus vaccination; 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: [Need for prophylactic vaccination and inoculation, Influenza] Episodic Residual codes; unclassified (2 sources) Postmenopausal state; 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: [Asymptomatic menopausal state] Episodic Residual codes; unclassified (2 sources) Postprocedural state finding; 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: [Other specified postprocedural states] Episodic Residual codes; unclassified (2 sources) Insomnia, unspecified; 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: [Insomnia] Episodic Residual codes; unclassified (5 sources) H/O: radiation exposure; 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: [Personal history of irradiation] 04-24-2023 Episodic Residual codes; unclassified (3 sources) Personal history of irradiation; 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: [Personal history of irradiation, presenting hazards to health] 05-15-2023 Episodic Residual codes; unclassified (2 sources) Edema; 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: [Edema, unspecified] 11-19-2023 Episodic Screening and history of mental health [...] 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: [Stage 3a chronic kidney disease N18.31] Complications of surgical procedures or medical care (13 sources) Other complications of procedures, not elsewhere classified, initial encounter; 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: [Non-healing surgical wound] Onset: 11-02-2022 Episodic Deficiency and other anemia (2 sources) Anemia; [...] of skin] Onset: 05-01-2013 Resolved: 11-28-2019 Episodic Other aftercare (1 source) Other assisted (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; 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: [OTH [facility] CURRENT DRUG THERAPY] Onset: 01-27-2022 Episodic Other [...] Date Procedure Procedure Detail Performing Clinician Start: 11-30-2023 CT angiography of thorax DO Nika Fagan Work Phone: Start: 11-30-2023 Plain chest X-ray DO Alberto macrinaliudmila Fagan Work Phone: Start: 05-28-2023 Debridement DO Olivia Ferguson Work Phone: Start: 10-05-2018 Screening mammography B geraldine Ferguson Other Start: 01-05-2016 Pre-surgery evaluation Noble Ferguson Other Start: 01-05-2016 Preoperative cardiov ascular examination Noble Ferguson Other Depression screening Olivia Ferguson Other Results Test Name Value Interpretation Reference Range Facility 36on 12-03-2023 36 Patient called to [facility] us aware that she presented to [facility] over the weekend for chest pain. I have scanned the records into remediation project engineer for your review. You ordered an echo 2 weeks ago when you saw her. They did one while she was inpatient. She is scheduled in a week or so at [facility] for the stress test you ordered. Thanks! Normal [facility] US venous duplex LE BIon US venous duplex LE BI [facility] [place] [address] Ultrasound Report Signed Patient: Nora Parnell MR#: [id number] : 1940 Acct:[id number] Age/Sex: 83 / F ADM Date: 11/30/23 Loc: Room: [address] [place] [address] Type: DIS INOo Attending Dr: Jim Clay DO Ordering Provider: Jim Clay DO Date of Service: 11/30/23 US/US venous duplex LE BI: pain, elevated ddimer Copies to: Jim Clay DO BILATERAL LOWER EXTREMITY VENOUS DUPLEX INDICATION: Bilateral lower extremity edema, pain and tenderness. Elevated d-dimer. PROCEDURE: Color-flow duplex scanning is used to interrogate the deep venous system of the right and left lower extremities. The common femoral vein, femoral vein and popliteal vein show good compressibility with normal proximal and distal augmentation. The calf veins are compressible. US/US venous duplex LE BI IMPRESSION: NO EVIDENCE FOR DEEP VEIN THROMBOSIS OR PROXIMAL SUPERFICIAL THROMBOPHLEBITIS IN THE RIGHT OR LEFT LOWER EXTREMITY. Impression dictated by: Joe Moscoso MD12/03/2023 3:59 PM Dictation Location: [place] [address] Tech: Betty De Pazdeandra Transcribed By: [facility] 12/03/23 1559 Dictated By: Joe Moscoso MD 12/03/23 1558 Signed By: 12/03/23 1559 Normal [facility] A1C with Estimated Average [facility] 12-01-2023 Glucose [Mass/Vol] 137 mg/dL Normal [facility] Comment on above: Result Comment: PERF ORMED BY: [place] [address] PATHOLOGIST DRAFTER CHIEF DESIGN JUDY RASMUSSEN M.D. Performed By: #### L IPID, HS TROP, A1C WTH eA, MG, BMP, CBC ####[facility] [id number] [place] [id number] [facility] Automated basophil %Ordered By: Jim Clay on 12-01-2023 Basophils/100 WBC (Bld) 0.8 % Normal . [facility] Comment on above: Performed By: #### L IPID, HS TROP, A1C WTH eA, MG, BMP, CBC ####[place] [id number] [address] Automated basophil countOrde red By: Jim Clay on 12-01-2023 Basophils (Bld) [#/Vol] 0.0 10*3/uL Normal 0.0-0.2 [facility] Comment on above: Result Comment: PERF ORMED BY: [facility] [address] [place] [address] PATHOLOGIST DRAFTER CHIEF DESIGN JUDY RASMUSSEN M.D. Performed By: #### L IPID, HS TROP, A1C WTH eA, MG, BMP, CBC ####[address] Automated blood monocyte cou ntOrdered By: Jim Clay on 12-01-2023 Monocytes (Bld) [#/Vol] 0.7 10*3/uL Normal 0.0-0.8 [facility] Comment on above: Performed By: #### L IPID, HS TROP, A1C WTH eA, MG, BMP, CBC ####[address] Automated eosinophil %Ordere d By: Jim Clay on 12-01-2023 Eosinophils/100 WBC (Bld) 2.8 % Normal . [facility] Comment on above: Performed By: #### L IPID, HS TROP, A1C WTH eA, MG, BMP, CBC ####[address] Automated eosinophil countOr dered By: Jim Clay on 12-01-2023 Eosinophils (Bld) [#/Vol] 0.2 10*3/uL Normal 0.0-0.45 [facility] Comment on above: Performed By: #### L IPID, HS TROP, A1C WTH eA, MG, BMP, CBC ####[place] [address] [place] [address] [facility] Automated monocyte %Ordered By: Jim Clay on 12-01-2023 Monocytes/100 WBC (Bld) 11.5 % Normal . [facility] Comment on above: Performed By: #### L IPID, HS TROP, A1C WTH eA, MG, BMP, CBC ####[place] [address] [place] [address] [facility] Automated neutrophil %Ordere d By: Jim Clay on 12-01-2023 Neutrophils/100 WBC (Bld) 62.6 % Normal . [facility] Comment on above: Performed By: #### L IPID, HS TROP, A1C WTH eA, MG, BMP, CBC ####[place] [address] [place] [address] [facility] Basic Metabolic Panelon 11-10 Creatinine Clr Calc Pharmacy 47.06 Normal [facility] Comment on above: Performed By: #### L IPID, HS TROP, A1C WTH eA, MG, BMP, CBC ####[address] [address] [facility] GFR/1.73 sq M.predicted MDRD (S/P/Bld) [Vol rate/Area] mL/min/{1.73_m2} Normal [facility] Comment on above: Performed By: #### L IPID, HS TROP, A1C WTH eA, MG, BMP, CBC ####[place] [id number] [facility] Calcium [Mass/volume] in Ser um or PlasmaOrdered By: Jim Clay on 12-01-2023 Calcium [Mass/Vol] 8.7 mg/dL Normal 8.6-10.3 [facility] Comment on above: Performed By: #### L IPID, HS TROP, A1C WTH eA, MG, BMP, CBC ####[address] [address] [facility] Carbon dioxide, total [Moles /volume] in Serum or PlasmaOrdered By: Jim Clay on 12-01-2023 CO2 [Moles/Vol] 22.8 mmol/L Normal 21.0-31.0 [facility] Comment on above: Performed By: #### L IPID, HS TROP, A1C WTH eA, MG, BMP, CBC ####[facility] [address] [place] [address] [place] Chloride [Moles/volume] in S tyron or PlasmaOrdered By: Jim Clay on 12-01-2023 Chloride [Moles/Vol] 112 mmol/L High 98-107 [facility] Comment on above: Performed By: #### L IPID, HS TROP, A1C WTH eA, MG, BMP, CBC ####[facility] [address] [place] [address] [place] Cholesterol [Mass/volume] in Serum or PlasmaOrdered By: Jim Clay on 12-01-2023 Cholesterol [Mass/Vol] 109 mg/dL Low 140-200 [facility] Comment on above: Chol less than 200 m g/dl low riskChol 201-239 mg/dl borderline riskChol 240 mg/dl and greater high risk Result Comment: Chol less than 200 mg/dl low risk Chol 201-239 mg/dl borderline risk Chol 240 mg/dl and greater high risk Performed By: #### L IPID, HS TROP, A1C WTH eA, MG, BMP, CBC ####[facility] [address] [place] [address] [facility] Cholesterol in LDL Calc [Mas s/Vol]Ordered By: Jim Clay on 12-01-2023 Cholesterol in LDL [Mass/Vol] 37 mg/dL 0-100 [facility] Comment on above: LDL ATP III CLASSIFI CATIONLDL less than 100 mg/dL OptimalLDL 100-129 mg/dL Near or above optimalLDL 130-159 mg/dL Borderline highLDL 160-189 mg/dL HighLDL greater than 189 mg/dL Very high Cholesterol in VLDL Calc [Ma ss/Vol]Ordered By: Jim Clay on 12-01-2023 Cholesterol in VLDL [Mass/Vol] 34 mg/dL [facility] Complete Blood Count Auto Di ffon 12-01-2023 Mean Corpuscular HGB Conc 33.4 g/dL Normal 32.0-35.0 [facility] Comment on above: Performed By: #### L IPID, HS TROP, A1C WTH eA, MG, BMP, CBC ####[facility] NRBC% 0.1 /100{WBC} Normal 0-0.5 [facility] Comment on above: Performed By: #### L IPID, HS TROP, A1C WTH eA, MG, BMP, CBC ####[place] [address] Creatinine [Mass/volume] in Serum or PlasmaOrdered By: Jim Clay on 12-01-2023 Creatinine [Mass/Vol] 0.84 mg/dL Normal 0.60-1.20 [facility] Comment on above: Performed By: #### L IPID, HS TROP, A1C WTH eA, MG, BMP, CBC ####[place] [address] ECH echo transthoracicon ECH echo transthoracic [facility] [place] [address] Echocardiogram Signed Patient: Nora Parnell MR#: [id number] 464 : 1940 Acct:[id number] Age/Sex: 83 / F ADM Date: 11/30/23 Loc: Room: [address] [place] [address] Type: ADM INOo Attending Dr: iJm Clay DO Ordering Provider: Jim Clay DO Date of Service: 12/01/23 ECH/ECH echo transthoracic: chest pain Copies to: DO Margarito Arroyo MD Weight: 180 lb Performed By: Cynthia Thorpe RDCS BSA: 1.8 m2 BP: 153/73 mmHg HR: 67 Reason For Study: chest pain History: CHF. HTN. CKD. HLD. Breast Cancer. Former Smoker. Family history of CAD. Interpretation Summary The left ventricular size, thickness and function are normal Ejection Fraction = 65-70%. Trivial valvular aortic stenosis. There is trace tricuspid regurgitation. Procedure/Quality: A two-dimensional transthoracic echocardiogram with color flow, Doppler and injection of contrast agent Definity was performed. The study was technically good in quality. Left Ventricle: The left ventricular size, thickness and function are normal. Ejection Fraction = 65-70%. No left ventricular thrombus or mass is seen. Left Atrium: The left atrium appears normal in size. The atrial septum appears normal. Right Atrium: The right atrium appears normal in size. Right Ventricle: The right ventricular size, thickness and function are normal. Aortic Valve: The aortic valve is mildly sclerotic. Trivial valvular aortic stenosis. Mitral Valve: The mitral valve is normal in structure. Tricuspid Valve: The tricuspid valve is normal in structure. There is trace tricuspid regurgitation. Pulmonic Valve: The pulmonic valve is not well visualized. Arteries: The aortic root is normal size. The aortic arch was visualized and no abnormalities were seen. Pericardium/Pleura: No pericardial effusion seen. There is no pleural effusion. IVC/Hepatic Veins: The inferior vena cava is normal in size, with a normal collapsibility index. Measurements with Normals IVSd: 1.2 cm (0.7-1.1 cm)LVIDd: 4.2 cm (3.7-5.4 cm) LVPWd: 1.0 cm (0.7-1.1 cm)LVIDs: 2.5 cm (2.3-3.6 cm) LA dimension: 3.7 cm (2.3-4.0 cm)Ao root diam: 3.0 cm(2.0-3.6 cm) asc Aorta Diam: 3.2 cm(2.1-3.4cm) Doppler with Normals RVSP(TR): 29.0 mmHg (18-35mmHg) LV V1 max: 116.9 cm/sec (0.7-1.7m/s)MV E max kushal: 68.9 cm/sec(0.8-1.3m/s) MV A max kushal: 84.2 cm/sec(0.0-0.0m/s) MV E/A: 0.82 (<1.5) MMode/2D Measurements Calculations TAPSE: 2.0 cm FS: 40.0 % Ao root area: LVOT diam: 1.9 cm RV S Kushal: EDV(Teich): 7.1 cm2 LVOT area: 2.8 cm2 17.8 cm/sec 78.6 ml ESV(Teich): 22.7 ml EF(Teich): 71.1 % __ LVLd ap4: 7.8 cm SV(MOD-sp4): LAV(MOD-sp4): LA A2 area: 15.5 cm2 EDV(MOD-sp4): 71.6 ml 28.7 ml 97.3 ml LAV(MOD-sp2): LA A4 area: 14.9 cm2 LVLs ap4: 6.4 cm 32.3 ml LA length (vol): ESV(MOD-sp4): 6.2 cm 25.7 ml LA vol: 31.6 ml EF(MOD-sp4): 73.6 % LA vol index: 17.6 ml/m2 Doppler Measurements Calculations MV dec time: MV V2 max: E/E' lat: 8.8 MV dec slope: 0.23 sec 95.3 cm/sec E/E' med: 9.5 MV max P.6 mmHg 303.5 cm/sec2 MV V2 mean: 52.1 cm/sec MV mean P.3 mmHg MV V2 VTI: 32.2 cm MVA(VTI): 1.5 cm2 __ Ao V2 max: LV V1 max PG: TV max PG: TR max kushal: 153.1 cm/sec 5.5 mmHg 26.0 mmHg 255.2 cm/sec Ao max P.4 mmHg LV V1 mean PG: TR max P.0 mmHg Ao mean P.2 mmHg2.6 mmHg RAP systole: 3.0 mmHg Ao V2 mean: LV V1 mean: 107.4 cm/sec 71.0 cm/sec Ao V2 VTI: 30.1 cm LV V1 VTI: 16.9 cm TARIQ(I,D): 1.6 cm2 TARIQ(V,D): 2.2 cm2 ___ Transcribed By: NICOLE Performed At: 12/01/23 0832 Signed By: Margarito Hurst MD 12/01/23 1449 Normal [facility] Erythrocyte distribution wid th [Ratio] by Automated countOrdered By: Jim Clay on 12-01-2023 Erythrocyte distribution width (RBC) [Ratio] 13.4 % Normal 11.9-15.3 [facility] Comment on above: Performed By: #### L IPID, HS TROP, A1C WTH eA, MG, BMP, CBC ####[facility] [place] [address] [facility] Erythrocytes [#/volume] in B lood by Automated countOrdered By: Jim Clay on 12-01-2023 RBC (Bld) [#/Vol] 3.81 10*6/uL Normal 3.60-5.00 [facility] Comment on above: Performed By: #### L IPID, HS TROP, A1C WTH eA, MG, BMP, CBC ####[facility] [place] [address] [facility] Glucose [Mass/volume] in Ser um or PlasmaOrdered By: Jim Clay on 12-01-2023 Glucose [Mass/Vol] 100 mg/dL Normal 70-100 [facility] Comment on above: ADA recommended refe rence rangeRandom Glucose Reference Range is dependent on time and content of last meal. Glucose of more than 200 mg/dL in a nonstressed, ambulatory subject supports the diagnosis of Diabetes Mellitus. Result Comment: [place] [facility] Glucose Reference Range is dependent on time and content of last meal. Glucose of more than 200 mg/dL in a nonstressed, ambulatory subject supports the diagnosis of Diabetes Mellitus. ADA recommended reference range Performed By: #### L IPID, HS TROP, A1C WTH eA, MG, BMP, CBC ####[facility] [place] [address] [place] Glucose mean value [Mass/vol ume] in Blood Estimated from glycated hemoglobinOrdered By: Jim Clay on 12-01-2023 Average glucose Estimated from glycated hemoglobin (Bld) [Mass/Vol] 137 mg/dL [facility] Hematocrit [Volume Fraction] of Blood by Automated countOrdered By: Jim Clay on 12-01-2023 Hematocrit (Bld) [Volume fraction] 34.9 % Normal 34.0-46.4 [facility] Comment on above: Performed By: #### L IPID, HS TROP, A1C WTH eA, MG, BMP, CBC ####[place] [address] Hemoglobin A1c percentageOrd ered By: Jim Clay on 12-01-2023 HbA1c (Bld) [Mass fraction] 6.4 % High 4.3-5.6 [facility] Comment on above: Increased risk for d iabetes: 5.7 - 6.4diabetes: >6.4glycemic control for adults with diabetes: <7.0 Result Comment: Incr eased risk for diabetes: 5.7 - 6.4 diabetes: >6.4 glycemic control for adults with diabetes: <7.0 Performed By: #### L IPID, HS TROP, A1C WTH eA, MG, BMP, CBC ####[place] [address] Hemoglobin [Mass/volume] in BloodOrdered By: Jim Clay on 12-01-2023 Hemoglobin (Bld) [Mass/Vol] 11.7 g/dL Low 11.8-15.4 [facility] Comment on above: Performed By: #### L IPID, HS TROP, A1C WTH eA, MG, BMP, CBC ####[address] Leukocytes [#/volume] correc katia for nucleated erythrocytes in Blood by Automated counOrdered By: Jim Clay on 12-01-2023 WBC corrected for nucl RBC Auto (Bld) [#/Vol] 6.4 10*3/uL 3.8-11.6 [facility] Leukocytes [#/volume] in Blo od by Automated countOrdered By: Jim Clay on 12-01-2023 WBC (Bld) [#/Vol] 6.4 10*3/uL Normal 3.8-11.6 [facility] Comment on above: Performed By: #### L IPID, HS TROP, A1C WTH eA, MG, BMP, CBC ####[place] [address] [place] [id number] [facility] Lipid Panelon 12-01-2023 LDL Cholesterol,Calculated 37 mg/dL Normal 0-100 [facility] Comment on above: Result Comment: LDL ATP III CLASSIFICATION LDL less than 100 mg/dL Optimal LDL 100-129 mg/dL Near or above optimal LDL 130-159 mg/dL Borderline high LDL 160-189 mg/dL High LDL greater than 189 mg/dL Very high Performed By: #### L IPID, HS TROP, A1C WTH eA, MG, BMP, CBC ####[place] [address] Triglyceride w/Reflex 171 mg/dL High 0-149 [facility] Comment on above: Result Comment: TRIG ATP III CLASSIFICATION TRIG less than 150 mg/dL Normal TRIG 150-199 mg/dL Borderline high TRIG 200-500 mg/dL High TRIG greater than 500 mg/dL Very high Standard traceable to the Center for Disease Conrtrol and Prevention (CDC) test method. Performed By: #### L IPID, HS TROP, A1C WTH eA, MG, BMP, CBC ####[place] [address] [place] [id number] [facility] VLDL CHOLESTEROL 34 mg/dL Normal [facility] Comment on above: Performed By: #### L IPID, HS TROP, A1C WTH eA, MG, BMP, CBC ####[place] [id number] [facility] Lymphocytes [#/volume] in Bl ood by Automated countOrdered By: Jim Clay on 12-01-2023 Lymphocytes (Bld) [#/Vol] 1.4 10*3/uL Normal 1.00-4.8 [facility] Comment on above: Performed By: #### L IPID, HS TROP, A1C WTH eA, MG, BMP, CBC ####[place] [id number] [facility] Lymphocytes/100 leukocytes i n Blood by Automated countOrdered By: Jim Clay on 12-01-2023 Lymphocytes/100 WBC (Bld) 22.3 % Normal . [facility] Comment on above: Performed By: #### L IPID, HS TROP, A1C WTH eA, MG, BMP, CBC ####[place] [address] MCH [Entitic mass] by Automa katia countOrdered By: Jim Clay on 12-01-2023 MCH (RBC) [Entitic mass] 30.5 pg Normal 24.7-34.3 [facility] Comment on above: Performed By: #### L IPID, HS TROP, A1C WTH eA, MG, BMP, CBC ####[address] MCHC Auto (RBC) [Mass/Vol]Or dered By: Jim Clay on 12-01-2023 MCHC (RBC) [Mass/Vol] 33.4 g/dL 32.0-35.0 [facility] MCV [Entitic volume] by Auto mated countOrdered By: Jim Clay on 12-01-2023 MCV (RBC) [Entitic vol] 91.5 fL Normal 80-100 [facility] Comment on above: Performed By: #### L IPID, HS TROP, A1C WTH eA, MG, BMP, CBC ####[address] Magnesium [Mass/volume] in S tyron or PlasmaOrdered By: Jim Clay on 12-01-2023 Magnesium [Mass/Vol] 1.7 mg/dL Low 1.9-2.7 [facility] Comment on above: Performed By: #### L IPID, HS TROP, A1C WTH eA, MG, BMP, CBC ####[address] Neutrophils [#/volume] in Bl ood by Automated countOrdered By: Jim Clay on 12-01-2023 Neutrophils (Bld) [#/Vol] 4.0 10*3/uL Normal 1.8-7.7 [facility] Comment on above: Performed By: #### L IPID, HS TROP, A1C WTH eA, MG, BMP, CBC ####[place] [id number] [address] No Panel InformationOrdered By: Jim Clay on 12-01-2023 Estimated GFR (CKD-EPI) > 60.0 mL/Min [facility] Creatinine Clearance (Chem 47.06 [facility] Nucleated erythrocytes [Pres ence] in Blood by Automated countOrdered By: Jim Clay on 12-01-2023 Nucleated RBC Auto Ql (Bld) 0.1 /100{WBC} 0-0.5 [facility] Platelet mean volume [Entiti c volume] in Blood by Automated countOrdered By: Jim Clay on 12-01-2023 Platelet mean volume (Bld) [Entitic vol] 10.0 fL Normal 6.3-10.7 [facility] Comment on above: Performed By: #### L IPID, HS TROP, A1C WTH eA, MG, BMP, CBC ####[address] Platelets [#/volume] in Bloo d by Automated countOrdered By: Jim Clay on 12-01-2023 Platelets (Bld) [#/Vol] 203 10*3/uL Normal 150-450 [facility] Comment on above: Performed By: #### L IPID, HS TROP, A1C WTH eA, MG, BMP, CBC ####[address] Potassium [Moles/volume] in Serum or PlasmaOrdered By: Jim Clay on 12-01-2023 Potassium [Moles/Vol] 4.3 mmol/L Normal 3.5-5.1 [facility] Comment on above: Performed By: #### L IPID, HS TROP, A1C WTH eA, MG, BMP, CBC ####[address] Serum or plasma anion gap de terminationOrdered By: Jim Clay on 12-01-2023 Anion gap [Moles/Vol] 11.5 mmol/L Normal 6.0-15.0 [facility] Comment on above: Performed By: #### L IPID, HS TROP, A1C WTH eA, MG, BMP, CBC ####[facility] [place] [address] [facility] Serum or plasma high density lipoprotein (HDL) cholesterol measurementOrdered By: Jim Clay on 12-01-2023 Cholesterol in HDL [Mass/Vol] 38 mg/dL Normal 23-92 [facility] Comment on above: HDL CHOL ATP-III CLA SSIFICATION Cardiovascular RiskHDL > or equal to 60 mg/dL LOWHDL < 40 mg/dL HIGH Result Comment: HDL CHOL ATP-III CLASSIFICATION Cardiovascular Risk HDL > or equal to 60 mg/dL LOW HDL < 40 mg/dL HIGH Performed By: #### L IPID, HS TROP, A1C WTH eA, MG, BMP, CBC ####[place] [address] [address] Serum or plasma total choles terol/high density lipoprotein (HDL) cholesterol mass ratOrdered By: Jim Clay on 12-01-2023 Cholesterol.total/Chol esterol in HDL [Mass ratio] 2.9 {ratio} Normal <5.0 [facility] Comment on above: Result Comment: PERF ORMED BY: [facility] [address] [place] [address] PATHOLOGIST [employer] JUDY RASMUSSEN M.D. Performed By: #### L IPID, HS TROP, A1C WTH eA, MG, BMP, CBC ####[place] [address] [place] [id number] [facility] Sodium [Moles/volume] in Ser um or PlasmaOrdered By: Jim Clay on 12-01-2023 Sodium [Moles/Vol] 142 mmol/L Normal 136-145 [facility] Comment on above: Performed By: #### L IPID, HS TROP, A1C WTH eA, MG, BMP, CBC ####[place] [address] [place] [id number] [facility] Triglyceride [Mass/volume] i n Serum or PlasmaOrdered By: Jim Clay on 12-01-2023 Triglyceride [Mass/Vol] 171 mg/dL 0-149 [facility] Comment on above: TRIG ATP III CLASSIF ICATIONTRIG less than 150 mg/dL NormalTRIG 150-199 mg/dL Borderline highTRIG 200-500 mg/dL High TRIG greater than 500 mg/dL Very highStandard traceable to the Center for Disease Conrtrol and Prevention (CDC) test method. Troponin I High Sensitivityo n 12-01-2023 Troponin I High Sensitivity 9.5 pg/mL Normal 0.0-15.0 [facility] Comment on above: Result Comment: PERF ORMED BY: [facility] [address] [place] [id number] PATHOLOGIST [employer] JUDY RASMUSSEN M.D. Performed By: #### L IPID, HS TROP, A1C WTH eA, MG, BMP, CBC ####[facility] [place] [id number] [facility] Troponin I.cardiac [Mass/vol ume] in Serum or Plasma by Detection limit <= 0.01 ng/Ordered By: Jim Clay on 12-01-2023 Troponin I.cardiac DL <= 0.01 ng/mL [Mass/Vol] 9.5 pg/mL 0.0-15.0 [facility] Urea nitrogen [Mass/volume] in Serum or PlasmaOrdered By: Jim Clay on 12-01-2023 Urea nitrogen [Mass/Vol] 21 mg/dL Normal 7-25 [facility] Comment on above: Performed By: #### L IPID, HS TROP, A1C WTH eA, MG, BMP, CBC ####[facility] [address] [place] [address] [facility] Activated partial thrombopla stin time (aPTT) in platelet poor plasma by coagulation aOrdered By: Nika Fagan on 11-30-2023 aPTT Coag (PPP) [Time] 29.1 s 25.1-36.5 [facility] Comment on above: A hematocrit value g reater than 55% may lead to inaccurate results in coagulation testing. Patients having hematocrit values >55% require a special collection tube for coagulation studies. Please contact the laboratory at [phone] for redraw instructions. Alanine aminotransferase [En zymatic activity/volume] in Serum or PlasmaOrdered By: Nika Fagan on 11-30-2023 ALT [Catalytic activity/Vol] 20 U/L Normal 7-52 [facility] Comment on above: Performed By: #### C BC, BNP, PTT, DDIMER, HS TROP, PT, CMP #### [facility] [address] [place] [address] [place] Albumin [Mass/volume] in Ser um or Plasma by Bromocresol green (BCG) dye binding methoOrdered By: Nika Fagan on 11-30-2023 Albumin BCG dye [Mass/Vol] 4.1 g/dL 3.5-5.7 [facility] Alkaline phosphatase [Enzyma tic activity/volume] in Serum or PlasmaOrdered By: Nika Fagan on 11-30-2023 ALP [Catalytic activity/Vol] 89 U/L Normal 34-104 [facility] Comment on above: Performed By: #### C BC, BNP, PTT, DDIMER, HS TROP, PT, CMP #### [address] Aspartate aminotransferase [ Enzymatic activity/volume] in Serum or PlasmaOrdered By: Nika Fagan on 11-30-2023 AST [Catalytic activity/Vol] 25 U/L Normal 13-39 [facility] Comment on above: Performed By: #### C BC, BNP, PTT, DDIMER, HS TROP, PT, CMP #### [address] Automated basophil %Ordered By: Nika Fagan on 11-30-2023 Basophils/100 WBC (Bld) 0.6 % Normal . [facility] Comment on above: Performed By: #### C BC, BNP, PTT, DDIMER, HS TROP, PT, CMP #### [address] Automated basophil countOrde red By: Nika Fagan on 11-30-2023 Basophils (Bld) [#/Vol] 0.0 10*3/uL Normal 0.0-0.2 [facility] Comment on above: Result Comment: PERF ORMED BY: [place] [address] PATHOLOGIST [employer] JUDY RASMUSSEN M.D. Performed By: #### C BC, BNP, PTT, DDIMER, HS TROP, PT, CMP #### [address] Automated blood monocyte cou ntOrdered By: Nika Fagan on 11-30-2023 Monocytes (Bld) [#/Vol] 0.6 10*3/uL Normal 0.0-0.8 [facility] Comment on above: Performed By: #### C BC, BNP, PTT, DDIMER, HS TROP, PT, CMP #### [address] Automated eosinophil %Ordere d By: Nika Fagan on 11-30-2023 Eosinophils/100 WBC (Bld) 2.8 % Normal . [facility] Comment on above: Performed By: #### C BC, BNP, PTT, DDIMER, HS TROP, PT, CMP #### [address] Automated eosinophil countOr dered By: Nika Fagan on 11-30-2023 Eosinophils (Bld) [#/Vol] 0.2 10*3/uL Normal 0.0-0.45 [facility] Comment on above: Performed By: #### C BC, BNP, PTT, DDIMER, HS TROP, PT, CMP #### [address] Automated monocyte %Ordered By: Nika Fagan on 11-30-2023 Monocytes/100 WBC (Bld) 9.8 % Normal . [facility] Comment on above: Performed By: #### C BC, BNP, PTT, DDIMER, HS TROP, PT, CMP #### [address] Automated neutrophil %Ordere d By: Nika Fagan on 11-30-2023 Neutrophils/100 WBC (Bld) 66.7 % Normal . [facility] Comment on above: Performed By: #### C BC, BNP, PTT, DDIMER, HS TROP, PT, CMP #### [facility] [address] [place] [address] BNP ser/plasOrdered By: Mono Fagan on 11-30-2023 Natriuretic peptide B (Bld) [Mass/Vol] 274.0 pg/mL High 5-100 [facility] Comment on above: Result Comment: PERF ORMED BY: [place] [address] PATHOLOGIST [employer] JUDY RASMUSSEN M.D. Performed By: #### C BC, BNP, PTT, DDIMER, HS TROP, PT, CMP #### [address] Bilirubin.total [Mass/volume ] in Serum or PlasmaOrdered By: Nika Fagan on 11-30-2023 Bilirubin [Mass/Vol] 0.5 mg/dL Normal 0.3-1.0 [facility] Comment on above: Performed By: #### C BC, BNP, PTT, DDIMER, HS TROP, PT, CMP #### [facility] [address] [place] [address] CT angio chest PE protocolon 11-30-2023 CT angio chest PE protocol [facility] [place] [address] [place] [address] CT Scan Report Signed Patient: Nora Parnell MR#: [id number] : 1940 Acct:[id number] Age/Sex: 83 / F ADM Date: 11/30/23 Loc: ER Room: Type: [facility] ER Attending Dr: Copies to: Nika Fagan DO Ordering Provider: Nika Fagan DO Date of Service: 11/30/23 CT/CT angio chest PE protocol: elevated dimer, chest pain, sob CTA Chest with PE protocol TECHNIQUE: Axial imaging with 2-D and 3-D reconstruction. 70cc of Isovue-[address] exam was performed using one or more the following dose reduction techniques: Automated exposure control, adjustment of the MA and/or Kv according to patient size, or use of the iterative reconstruction technique. History: Left-sided chest pain and pressure. LEFT jaw pain. Elevated d-dimer. COMPARISON: Two-view chest 11/30/23 THYROID: Unremarkable TRACHEA AND BRONCHI: Patent ESOPHAGUS: Small hiatal hernia HEART: Within normal limits PERICARDIAL EFFUSION: None CORONARY ARTERY CALCIFICATION: Present MEDIASTINUM: No adenopathy. No pneumoperitoneum. No mediastinal hematoma. PULMONARY WEN: No hilar mass or adenopathy is seen. THORACIC AORTA Unremarkable PULMONARY EMBOLUS: None LUNG NODULE None LUNGS: Minor atelectasis. PLEURAL EFFUSION: Trace pleural effusion blunting the posterior costophrenic angles. PNEUMOTHORAX: No pneumothorax seen. CHEST WALL: No abnormality AXILLA: Unremarkable BONY STRUCTURES thoracic spondylosis UPPER ABDOMEN: Images of the upper abdomen are noncontributory. CT/CT angio chest PE protocol IMPRESSION: No acute pulmonary embolus. Mild atelectasis. Trace pleural effusion blunting the posterior costophrenic angles. Impression dictated by: Mahendra Chandler M.D.11/30/2023 12:06 PM Dictation Location: [place] [address] Transcribed By: [facility] 11/30/23 1206 Dictated By: Mahendra Chandler DO 11/30/23 1200 Signed By: 11/30/23 1206 Normal [facility] Calcium [Mass/volume] in Ser um or PlasmaOrdered By: Nika Fagan on 11-30-2023 Calcium [Mass/Vol] 9.4 mg/dL Normal 8.6-10.3 [facility] Comment on above: Performed By: #### C BC, BNP, PTT, DDIMER, HS TROP, PT, CMP #### [facility] [address] [place] [address] [place] Carbon dioxide, total [Moles /volume] in Serum or PlasmaOrdered By: Nika Fagan on 11-30-2023 CO2 [Moles/Vol] 20.0 mmol/L Low 21.0-31.0 [facility] Comment on above: Performed By: #### C BC, BNP, PTT, DDIMER, HS TROP, PT, CMP #### [facility] [address] [place] [address] [place] Chloride [Moles/volume] in S tyron or PlasmaOrdered By: Nika Fagan on 11-30-2023 Chloride [Moles/Vol] 111 mmol/L High 98-107 [facility] Comment on above: Performed By: #### C BC, BNP, PTT, DDIMER, HS TROP, PT, CMP #### [address] Complete Blood Count Auto Di ffon 11-30-2023 Mean Corpuscular HGB Conc 33.0 g/dL Normal 32.0-35.0 [facility] Comment on above: Performed By: #### C BC, BNP, PTT, DDIMER, HS TROP, PT, CMP #### [address] Monocytes/100 WBC (Bld) 16.37 % Normal 0.00-20.00 [facility] Comment on above: Performed By: #### C BC, BNP, PTT, DDIMER, HS TROP, PT, CMP #### [address] NRBC% 0.1 /100{WBC} Normal 0-0.5 [facility] Comment on above: Performed By: #### C BC, BNP, PTT, DDIMER, HS TROP, PT, CMP #### [address] Comprehensive Metabolic Pane ventura 11-30-2023 Albumin [Mass/Vol] 4.1 g/dL Normal 3.5-5.7 [facility] Comment on above: Performed By: #### C BC, BNP, PTT, DDIMER, HS TROP, PT, CMP #### [address] Creatinine Clr Calc Pharmacy 43.90 Normal [facility] Comment on above: Result Comment: PERF ORMED BY: [place] [address] PATHOLOGIST [employer] JUDY RASMUSSEN M.D. Performed By: #### C BC, BNP, PTT, DDIMER, HS TROP, PT, CMP #### [address] GFR/1.73 sq M.predicted MDRD (S/P/Bld) [Vol rate/Area] mL/min/{1.73_m2} Normal [facility] Comment on above: Performed By: #### C BC, BNP, PTT, DDIMER, HS TROP, PT, CMP #### [address] Creatinine [Mass/volume] in Serum or PlasmaOrdered By: Nika Fagan on 11-30-2023 Creatinine [Mass/Vol] 0.91 mg/dL Normal 0.60-1.20 [facility] Comment on above: Performed By: #### C BC, BNP, PTT, DDIMER, HS TROP, PT, CMP #### [address] D-Dimer High Sensitivityon 0 11-30-2023 D-Dimer High Sensitivity 734 ng/mL High 0-243 [facility] Comment on above: Result Comment: The reference range for D-dimer is <243 ng/mL D-dimer units. D-dimer results must be used in conjunction with a clinical pretest probability (PTP) assessment model for deep vein thrombosis (DVT) and pulmonary embolism (PE). Results <230 ng/mL d-dimer units can be used as a negative predictor in patients with low or moderate probability for DVT/PE. Results above the exclusion threshold of 230 ng/ml D-dimer units for DVT/PE may indicate the need for further diagnostic testing. D-Dimer can be increased in hospitalized patients due to co-morbid conditions. A hematocrit value greater than 55% may lead to inaccurate results in coagulation testing. Patients having hematocrit values >55% require a special collection tube for coagulation studies. Please contact the laboratory at [phone] for redraw instructions. PERFORMED BY: [place] [address] PATHOLOGIST [employer] JUDY RASMUSSEN M.D. Performed By: #### C BC, BNP, PTT, DDIMER, HS TROP, PT, CMP ####[facility] ECG 12 lead ECGon 11-30-2023 ECG 12 lead ECG [facility] [place] [address] [place] [address] Electrocardiograph Report Signed Patient: Nora Parnell MR#: [id number] : 1940 Acct:[id number] Age/Sex: 83 / F ADM Date: 11/30/23 Loc: Room: [address] [place] [address] Type: ADM INOo Attending Dr: Jim Clay DO Ordering Provider: Nika Fagan DO Date of Service: 11/30/23 ECG/ECG 12 lead ECG: Chest Pain Copies to: Test Reason : Blood Pressure : / mmHG Vent. Rate : 068 BPM Atrial Rate : 068 BPM P-R Int : 172 ms QRS Dur : 086 ms QT Int : 404 ms P-R-T Axes : 078 070 070 degrees QTc Int : 429 ms Normal sinus rhythm Nonspecific ST abnormality Abnormal ECG When compared with ECG of 17-MAY-2023 11:17, Nonspecific T wave abnormality no longer evident in Inferior leads Nonspecific T wave abnormality no longer evident in Lateral leads Confirmed by Kole Damon DO ([id number]) on 11/30/2023 3:08:44 PM Referred By: Electronically Signed By:Kole Damon DO Transcribed By: [facility] Signed By Kole Damon DO 4 1509 Normal [facility] Erythrocyte distribution wid th [Ratio] by Automated countOrdered By: Nika Fagan on 11-30-2023 Erythrocyte distribution width (RBC) [Ratio] 13.4 % Normal 11.9-15.3 [facility] Comment on above: Performed By: #### C BC, BNP, PTT, DDIMER, HS TROP, PT, CMP #### [address] Erythrocytes [#/volume] in B lood by Automated countOrdered By: Nika Fagan on 11-30-2023 RBC (Bld) [#/Vol] 4.17 10*6/uL Normal 3.60-5.00 [facility] Comment on above: Performed By: #### C BC, BNP, PTT, DDIMER, HS TROP, PT, CMP #### [facility] [address] [place] [address] [place] Fibrin D-dimer [Presence] in Platelet poor plasma by Latex agglutinationOrdered By: Nika Fagan on 11-30-2023 Fibrin D-dimer LA Ql (PPP) 734 ng/mL 0-243 [facility] Comment on above: The reference range for D-dimer is <243 ng/mL D-dimer units.D-dimer results must be used in conjunction with a clinicalpretest probability (PTP) assessment model for deep veinthrombosis (DVT) and pulmonary embolism (PE). Results <230ng/mL d-dimer units can be used as a negative predictor inpatients with low or moderate probability for DVT/PE.Results above the exclusion threshold of 230 ng/ml D-dimerunits for DVT/PE may indicate the need for furtherdiagnostic testing.D-Dimer can be increased in hospitalized patients due toco-morbid conditions.A hematocrit value greater than 55% may lead to inaccurate results in coagulation testing. Patients having hematocrit values >55% require a special collection tube for coagulation studies. Please contact the laboratory at [phone] for redraw instructions. Glucose [Mass/volume] in Ser um or PlasmaOrdered By: Nika Fagan on 11-30-2023 Glucose [Mass/Vol] 121 mg/dL High 70-100 [facility] Comment on above: ADA recommended refe rence rangeRandom Glucose Reference Range is dependent on time and content of last meal. Glucose of more than 200 mg/dL in a nonstressed, ambulatory subject supports the diagnosis of Diabetes Mellitus. Result Comment: [place] [facility] Glucose Reference Range is dependent on time and content of last meal. Glucose of more than 200 mg/dL in a nonstressed, ambulatory subject supports the diagnosis of Diabetes Mellitus. ADA recommended reference range Performed By: #### C BC, BNP, PTT, DDIMER, HS TROP, PT, CMP #### [facility] [address] [place] [id number] [facility] Hematocrit [Volume Fraction] of Blood by Automated countOrdered By: Nika Fagan on 11-30-2023 Hematocrit (Bld) [Volume fraction] 37.9 % Normal 34.0-46.4 [facility] Comment on above: Performed By: #### C BC, BNP, PTT, DDIMER, HS TROP, PT, CMP #### [facility] [address] Hemoglobin [Mass/volume] in BloodOrdered By: Nika Fagan on 11-30-2023 Hemoglobin (Bld) [Mass/Vol] 12.5 g/dL Normal 11.8-15.4 [facility] Comment on above: Performed By: #### C BC, BNP, PTT, DDIMER, HS TROP, PT, CMP #### [facility] [address] INR in Platelet poor plasma by Coagulation assayOrdered By: Nika Fagan on 11-30-2023 INR Coag (PPP) [Relative time] 1.0 {INR} Normal [facility] Comment on above: INR Therapeutic Rang e A) Pre- and Peroperative OAT started two weeks before surgery. NOT HIP SURGERY: 1.5 - 2.5 HIP SURGERY: 2 - 3B) Primary and secondary prevention of venous THROMBOSIS: 2 - 3C) Active venous thrombosis, pulmonary embolismand prevention of recurrent venous thrombosis: 2 - 3D) Prevention of arterial thromboembolismincluding patients with mechanical heart valves: 3 - 4.5 Result Comment: INR Therapeutic Range A) Pre- and Peroperative OAT started two weeks before surgery. NOT HIP SURGERY: 1.5 - 2.5 HIP SURGERY: 2 - 3 B) Primary and secondary prevention of venous THROMBOSIS: 2 - 3 C) Active venous thrombosis, pulmonary embolism and prevention of recurrent venous thrombosis: 2 - 3 D) Prevention of arterial thromboembolism including patients with mechanical heart valves: 3 - 4.5 Performed By: #### C BC, BNP, PTT, DDIMER, HS TROP, PT, CMP #### [facility] [address] Leukocytes [#/volume] correc katia for nucleated erythrocytes in Blood by Automated counOrdered By: Nika Fagan on 11-30-2023 WBC corrected for nucl RBC Auto (Bld) [#/Vol] 6.1 10*3/uL 3.8-11.6 [facility] Leukocytes [#/volume] in Blo od by Automated countOrdered By: Nika Fagan on 11-30-2023 WBC (Bld) [#/Vol] 6.1 10*3/uL Normal 3.8-11.6 [facility] Comment on above: Performed By: #### C BC, BNP, PTT, DDIMER, HS TROP, PT, CMP #### [facility] [address] Lymphocytes [#/volume] in Bl ood by Automated countOrdered By: Nika Fagan on 11-30-2023 Lymphocytes (Bld) [#/Vol] 1.2 10*3/uL Normal 1.00-4.8 [facility] Comment on above: Performed By: #### C BC, BNP, PTT, DDIMER, HS TROP, PT, CMP #### [facility] [address] Lymphocytes/100 leukocytes i n Blood by Automated countOrdered By: Nika Fagan on 11-30-2023 Lymphocytes/100 WBC (Bld) 20.1 % Normal . [facility] Comment on above: Performed By: #### C BC, BNP, PTT, DDIMER, HS TROP, PT, CMP #### [facility] [address] [place] [address] MCH [Entitic mass] by Automa katia countOrdered By: Nika Fagan on 11-30-2023 MCH (RBC) [Entitic mass] 30.0 pg Normal 24.7-34.3 [facility] Comment on above: Performed By: #### C BC, BNP, PTT, DDIMER, HS TROP, PT, CMP #### [address] MCHC Auto (RBC) [Mass/Vol]Or dered By: Nika Fagan on 11-30-2023 MCHC (RBC) [Mass/Vol] 33.0 g/dL 32.0-35.0 [facility] MCV [Entitic volume] by Auto mated countOrdered By: Nika Fagan on 11-30-2023 MCV (RBC) [Entitic vol] 90.9 fL Normal 80-100 [facility] Comment on above: Performed By: #### C BC, BNP, PTT, DDIMER, HS TROP, PT, CMP #### [facility] [address] Monocyte distribution width [Entitic volume] in Blood by AutomatedOrdered By: Nika Fagan on 11-30-2023 Monocyte distribution width Auto (Bld) [Entitic vol] 16.37 % 0.00-20.00 [facility] Neutrophils [#/volume] in Bl ood by Automated countOrdered By: Nika Fagan on 11-30-2023 Neutrophils (Bld) [#/Vol] 4.1 10*3/uL Normal 1.8-7.7 [facility] Comment on above: Performed By: #### C BC, BNP, PTT, DDIMER, HS TROP, PT, CMP #### [facility] [address] [place] [address] No Panel InformationOrdered By: Nika Fagan on 11-30-2023 Estimated GFR (CKD-EPI) > 60.0 mL/Min [facility] Creatinine Clearance (Chem 43.90 [facility] Nucleated erythrocytes [Pres ence] in Blood by Automated countOrdered By: Nika Fagan on 11-30-2023 Nucleated RBC Auto Ql (Bld) 0.1 /100{WBC} 0-0.5 [facility] Partial Thromboplastin Timeo n 11-30-2023 aPTT Coag (Bld) [Time] 29.1 s Normal 25.1-36.5 [facility] Comment on above: Result Comment: A he matocrit value greater than 55% may lead to inaccurate results in coagulation testing. Patients having hematocrit values >55% require a special collection tube for coagulation studies. Please contact the laboratory at [phone] for redraw instructions. Performed By: #### C BC, BNP, PTT, DDIMER, HS TROP, PT, CMP #### [facility] [address] [place] [address] Platelet mean volume [Entiti c volume] in Blood by Automated countOrdered By: Nika Fagan on 11-30-2023 Platelet mean volume (Bld) [Entitic vol] 9.3 fL Normal 6.3-10.7 [facility] Comment on above: Performed By: #### C BC, BNP, PTT, DDIMER, HS TROP, PT, CMP #### [facility] [address] Platelets [#/volume] in Bloo d by Automated countOrdered By: Nika Fagan on 11-30-2023 Platelets (Bld) [#/Vol] 195 10*3/uL Normal 150-450 [facility] Comment on above: Performed By: #### C BC, BNP, PTT, DDIMER, HS TROP, PT, CMP #### [facility] [address] Potassium [Moles/volume] in Serum or PlasmaOrdered By: Nika Fagan on 11-30-2023 Potassium [Moles/Vol] 4.1 mmol/L Normal 3.5-5.1 [facility] Comment on above: Performed By: #### C BC, BNP, PTT, DDIMER, HS TROP, PT, CMP #### [facility] [address] Protein [Mass/volume] in Ser um or PlasmaOrdered By: Nika Fagan on 11-30-2023 Protein [Mass/Vol] 6.9 g/dL Normal 6.4-8.9 [facility] Comment on above: Performed By: #### C BC, BNP, PTT, DDIMER, HS TROP, PT, CMP #### [facility] [address] Prothrombin time (PT)Ordered By: Nika Fagan on 11-30-2023 PT Coag (PPP) [Time] 11.6 s Normal 9.0-12.9 [facility] Comment on above: A hematocrit value g reater than 55% may lead to inaccurate results in coagulation testing. Patients having hematocrit values >55% require a special collection tube for coagulation studies. Please contact the laboratory at [phone] for redraw instructions. Result Comment: A he matocrit value greater than 55% may lead to inaccurate results in coagulation testing. Patients having hematocrit values >55% require a special collection tube for coagulation studies. Please contact the laboratory at [phone] for redraw instructions. Performed By: #### C BC, BNP, PTT, DDIMER, HS TROP, PT, CMP #### [address] Serum globulin measurement b y calculation (mass/volume)Ordered By: Nika Fagan on 11-30-2023 Globulin (S) [Mass/Vol] 2.8 g/dL [facility] Comment on above: Performed By: #### C BC, BNP, PTT, DDIMER, HS TROP, PT, CMP #### [address] Serum or plasma albumin/glob ulin mass ratioOrdered By: Nika Fagan on 11-30-2023 Albumin/Globulin [Mass ratio] 1.5 {ratio} [facility] Comment on above: Performed By: #### C BC, BNP, PTT, DDIMER, HS TROP, PT, CMP #### [address] Serum or plasma anion gap de terminationOrdered By: Nika Fagan on 11-30-2023 Anion gap [Moles/Vol] 14.1 mmol/L Normal 6.0-15.0 [facility] Comment on above: Performed By: #### C BC, BNP, PTT, DDIMER, HS TROP, PT, CMP #### [address] Sodium [Moles/volume] in Ser um or PlasmaOrdered By: Nika Fagan on 11-30-2023 Sodium [Moles/Vol] 141 mmol/L Normal 136-145 [facility] Comment on above: Performed By: #### C BC, BNP, PTT, DDIMER, HS TROP, PT, CMP #### [address] Troponin I High Sensitivityo n 11-30-2023 Troponin I High Sensitivity 6.9 pg/mL Normal 0.0-15.0 [facility] Comment on above: Result Comment: PERF ORMED BY: [address] [place] [address] PATHOLOGIST [employer] JUDY RASMUSSEN M.D. Performed By: #### C BC, BNP, PTT, DDIMER, HS TROP, PT, CMP #### [facility] [address] [place] [address] [facility] Troponin I High Sensitivity 8.5 pg/mL Normal 0.0-15.0 [facility] Comment on above: Result Comment: PERF ORMED BY: [place] [address] PATHOLOGIST [employer]RAFTER [employer] JUDY RASMUSSEN M.D. Performed By: #### H S TROP ####[facility] [id number] [place], [place] [id number] [facility] Troponin I High Sensitivity 15.3 pg/mL High 0.0-15.0 [facility] Comment on above: Result Comment: PERF ORMED BY: [place] [address] PATHOLOGIST [employer] JUDY RASMUSSEN M.D. Performed By: #### H S TROP ####[facility] [id number] [place] [address] [facility] Troponin I.cardiac [Mass/vol ume] in Serum or Plasma by Detection limit <= 0.01 ng/Ordered By: Nika Fagan on 11-30-2023 Troponin I.cardiac DL <= 0.01 ng/mL [Mass/Vol] 8.5 pg/mL 0.0-15.0 [facility] Urea nitrogen [Mass/volume] in Serum or PlasmaOrdered By: Nika Fagan on 11-30-2023 Urea nitrogen [Mass/Vol] 24 mg/dL Normal 7-25 [facility] Comment on above: Performed By: #### C BC, BNP, PTT, DDIMER, HS TROP, PT, CMP #### [facility] [address] [place], [place] [id number] [place] XR chest 2V*on 11-30-2023 XR chest 2V* [facility] [place] [address] [place] [address] XRay Report Signed Patient: Nora Parnell MR#: [id number] : 1940 Acct:[id number] Age/Sex: 83 / F ADM Date: 11/30/23 Loc: ER Room: Type: [facility] ER Attending Dr: Copies to: Nika Fagan DO Ordering Provider: Nika Fagan DO Date of Service: 11/30/23 XR/XR chest 2V*: Chest Pain XR chest 2V* 11/30/2023 10:16 AM SIGNS AND SYMPTOMS: Left-sided chest pain and pressure PROTOCOL: Frontal and lateral radiograph of the chest COMPARISON: 01/04/2016 FINDINGS: The trachea is midline. Atherosclerotic changes are noted in the thoracic aorta. The heart and mediastinal structures are within normal limits. There has been interval development of mild pleural-parenchymal opacity at the left lung base. This may be infectious in nature or secondary to pulmonary edema and effusion. The bony thorax is intact. Degenerative changes are noted in the shoulders and thoracic spine. XR/XR chest 2V* IMPRESSION: There has been interval development of mild pleural-parenchymal opacity at the left lung base. This may be infectious in nature or secondary to pulmonary edema and effusion. Impression dictated by: Mathew Morton M.D.11/30/2023 11:41 AM Dictation Location: [place] [address] Transcribed By: [facility] 11/30/23 1141 Dictated By: Mathew Morton II, MD 11/30/23 1139 Signed By: 11/30/23 1141 Normal [facility] Office Visiton 11-23-2023 Follow-up visit [id number] Clari Parnell 1940 F Date Provider Department Center 11/23/2023 BALA MORGAN [facility] Family History Problem Relation Age of Onset No Known Problems Mother No Known Problems Father Family Status - Relation Status Age at Mother Father Level of Service:45050 DE OFFICE/OUTPATIENT ESTABLISHED MOD MDM 30 MIN Normal [facility] Basophils Auto (Bld) [#/Vol] on 11-20-2023 Basophils (Bld) [#/Vol] 0.1 10 3/uL 0.0-0.1 [facility] Basophils/100 WBC Auto (Bld) on 11-20-2023 Basophils/100 WBC (Bld) 0.6 % 0.2-2.0 [facility] Eosinophils/100 WBC Auto (Bl d)on 11-20-2023 Eosinophils/100 WBC (Bld) 2.4 % 0.9-7.0 [facility] Erythrocyte distribution wid th Auto (RBC) [Ratio]on 11-20-2023 Erythrocyte distribution width (RBC) [Ratio] 13.2 % 11.0-15.0 [facility] Estimated glomerular filtrat ion rate (GFR) non- Americanon 11-20-2023 GFR/1.73 sq M.predicted among non-blacks MDRD (S/P/Bld) [Vol rate/Area] 46 mL/min/{1.73_m2} >=60 [facility] Hematocrit Auto (Bld) [Volum e fraction]on 11-20-2023 Hematocrit (Bld) [Volume fraction] 41.6 % 36.0-48.0 [facility] Hemoglobin [Mass/volume] in Bloodon 11-20-2023 Hemoglobin (Bld) [Mass/Vol] 13.2 g/dL 12.0-16.0 [facility] Laboratory - Chemistry and C hemistry - challengeon 11-20-2023 Calcium [Mass/Vol] 9.4 mg/dL 8.5-10.1 [facility] Chloride [Moles/Vol] 106 mmol/L 98-107 [facility] CO2 [Moles/Vol] 26.3 mmol/L 21.0-32.0 [facility] Creatinine [Mass/Vol] 1.12 mg/dL 0.55-1.02 [facility] GFR/1.73 sq M.predicted MDRD (S/P/Bld) [Vol rate/Area] 56 mL/min/{1.73_m2} >=60 [facility] Glucose [Mass/Vol] 108 mg/dL 74-106 [facility] Natriuretic peptide B (Bld) [Mass/Vol] 491.0 pg/mL <=1800.0 [facility] Potassium [Moles/Vol] 4.2 mmol/L 3.5-5.1 [facility] Sodium [Moles/Vol] 141 mmol/L 136-145 [facility] TSH Qn 0.205 m[IU]/L 0.358-3.74 0 [facility] Urea nitrogen [Mass/Vol] 20.0 mg/dL 7.0-18.0 [facility] Urea nitrogen/Creatinine [Mass ratio] 17.9 mg/mg [facility] Laboratory - Hematology and Cell countson 11-20-2023 Immature granulocytes/100 WBC (Bld) 0.1 % 0.0-0.5 [facility] Leukocytes [#/volume] correc katia for nucleated erythrocytes in Blood by Automated counon 11-20-2023 WBC corrected for nucl RBC Auto (Bld) [#/Vol] 8.0 10 3/uL 4.0-11.0 [facility] Lymphocytes Auto (Bld) [#/Vo l]on 11-20-2023 Lymphocytes (Bld) [#/Vol] 1.8 10 3/uL 1.2-3.8 [facility] Lymphocytes/100 WBC Auto (Bl d)on 11-20-2023 Lymphocytes/100 WBC (Bld) 22.3 % 20.5-60.0 [facility] MCH Auto (RBC) [Entitic mass ]on 11-20-2023 MCH (RBC) [Entitic mass] 29.3 pg 26.7-34.0 [facility] MCHC Auto (RBC) [Mass/Vol]on 11-20-2023 MCHC (RBC) [Mass/Vol] 31.7 g/dL 29.9-35.2 [facility] MCV Auto (RBC) [Entitic vol] on 11-20-2023 MCV (RBC) [Entitic vol] 92.4 fL 81.0-99.0 [facility] Monocytes Auto (Bld) [#/Vol] on 11-20-2023 Monocytes (Bld) [#/Vol] 0.9 10 3/uL 0.3-0.8 [facility] Monocytes/100 WBC Auto (Bld) on 11-20-2023 Monocytes/100 WBC (Bld) 11.2 % 1.7-12.0 [facility] Neutrophils Auto (Bld) [#/Vo l]on 11-20-2023 Neutrophils (Bld) [#/Vol] 5.1 10 3/uL 1.4-6.5 [facility] Neutrophils/100 WBC Auto (Bl d)on 11-20-2023 Neutrophils/100 WBC (Bld) 63.4 % 43.0-75.0 [facility] No Panel Informationon 11-19 Eosinophils # (Auto) 0.2 10 3/uL 0.0-0.7 [facility] Immature Granulocyte # (Auto) 0.01 10 3/uL 0.00-0.03 [facility] Platelet mean volume Auto (B ld) [Entitic vol]on 11-20-2023 Platelet mean volume (Bld) [Entitic vol] 11.3 fL 9.5-13.5 [facility] Platelets Auto (Bld) [#/Vol] on 11-20-2023 Platelets (Bld) [#/Vol] 255 10 3/uL 150-450 [facility] RBC Auto (Bld) [#/Vol]on RBC (Bld) [#/Vol] 4.50 10 6/uL 4.20-5.40 [facility] Serum or plasma anion gap de terminationon 11-20-2023 Anion gap [Moles/Vol] 12.9 mmol/L [facility] ANTIMICROBIAL SUSCEPT-ANAERO BEon 05-28-2023 FINAL REPORT SEE NOTE Normal [facility] Comment on above: Order Comment: Speci men Type: MICROBIAL ISOLATE Ordering Facility: [facility] Address: [address] [place] [phone] Result Comment: Prev otella bergensis Organism identified [...] method. RUSTY M Beta-Lactamase Neg Performed By: [address] [place] [address] Senior Marketing Associate: Paulino العراقي MD, PhD CLIA Number: [id number] Performed By: #### S USANA #### [facility] CLIA [id number] [address] [place] [address] #### [id number] #### [facility] CLIA [id number] [address] [place] [address] [place] Aerobic Cultureon 05-28-2023 Aerobic Culture Comment Tissue C S R breast Light Normal Skin Aries 2 Days Comment Tissue C S R breast ORGANISM: Prevotella bergensis (O:PREBER) Comments Sent to [facility] for Testing Quantity of Growth Light Growth Antimicrobial susceptibility testing could not be completed due to poor organism growth using the CLSI approved test method. Please see scanned report located in the Laboratory/Scanned Reports section of the EMR. Comment Tissue C S R breast Gram Stain Result No Bacteria Seen PERFORMED BY: [place] [address] PATHOLOGIST DRAFTER [employer] JUDY RASMUSSEN M.D. Normal [facility] Comment on above: Performed By: #### A ERC ####[facility] [id number] Bacterial susceptibility weller el BETTYE (Isol)on 05-28-2023 BLACT Negative Normal [facility] Comment on above: Order Comment: Speci men Type: MICROBIAL ISOLATE Ordering Facility: [facility] Address: [address] [place], [place] [phone] Performed By: #### S USANA #### [facility] CLIA [id number] [address] [place] [address] #### [id number] #### [facility] CLIA [id number] [address] [place] [address] [place] Microorganism identified Cx Nom (Unsp spec) [id number] Abnormal [facility] Comment on above: Order Comment: Speci men Type: MICROBIAL ISOLATE Ordering Facility: [facility] Address: [address] [place] [phone] Result Comment: Prev otella bergensis Susceptibility results have been completed by [facility]. Performed By: #### S USANA #### [facility] CLIA [id number] [address] [place] [address] #### [id number] #### [facility] CLIA [id number] [address] [facility] [place] [id number] [address] [place] Basic Metabolic Panelon 12- Creatinine Clr Calc Pharmacy 44.56 Normal [facility] Comment on above: Result Comment: PERF ORMED BY: [place] [address] PATHOLOGIST [employer]TER [employer] JUDY RASMUSSEN M.D. Performed By: #### B MP #### [place] [address] [place] GFR/1.73 sq M.predicted MDRD (S/P/Bld) [Vol rate/Area] mL/min/{1.73_m2} Normal [facility] Comment on above: Performed By: #### B MP #### [address] Calcium [Mass/volume] in Ser um or PlasmaOrdered By: Shine Lea on 05-28-2023 Calcium [Mass/Vol] 9.3 mg/dL Normal 8.6-10.3 [facility] Comment on above: Performed By: #### B MP #### [place] [address] [place] Carbon dioxide, total [Moles /volume] in Serum or PlasmaOrdered By: Shine Lea on 05-28-2023 CO2 [Moles/Vol] 22.9 mmol/L Normal 21.0-31.0 [facility] Comment on above: Performed By: #### B MP #### [place] [address] [place] Chloride [Moles/volume] in S tyron or PlasmaOrdered By: Shine Lea on 05-28-2023 Chloride [Moles/Vol] 109 mmol/L High 98-107 [facility] Comment on above: Performed By: #### B MP #### [facility] [address] Creatinine [Mass/volume] in Serum or PlasmaOrdered By: Shine Lea on 05-28-2023 Creatinine [Mass/Vol] 0.89 mg/dL Normal 0.60-1.20 [facility] Comment on above: Performed By: #### B MP #### [facility] [address] Glucose [Mass/volume] in Ser um or PlasmaOrdered By: Shine Lea on 05-28-2023 Glucose [Mass/Vol] 113 mg/dL High 70-100 [facility] Comment on above: ADA recommended refe rence rangeRandom Glucose Reference Range is dependent on time and content of last meal. Glucose of more than 200 mg/dL in a nonstressed, ambulatory subject supports the diagnosis of Diabetes Mellitus. Result Comment: [facility] Glucose Reference Range is dependent on time and content of last meal. Glucose of more than 200 mg/dL in a nonstressed, ambulatory subject supports the diagnosis of Diabetes Mellitus. ADA recommended reference range Performed By: #### B MP #### [facility] [address] [place] 05-28-2023 L ----- Specimen: [id number] Received: 05/28/23 Status: HAMZAH Barajas Num: [id number] Spec Type: Surgical Subm Dr: Luis Angel Saucedo MD Tissues: A Debridement-Skin/Other Than Skin (POD RT BRST) Procedures: HE, Gross/Micro L3 Age/ Patient Sex Location Account Attending Physician Nora Parnell 83/F [place] [id number] Luis Angel Sauecdo MD SPEC NUM: [id number] RECD: 05/28/23 STATUS: HAMZAH MONREALMarsha NUM: [id number] NEDA: 05/28/[address] [facility] [address]: Luis Angel Saucedo MD ENTERED: 05/28/23 [facility] DR: DELMIS TYPE: Surgical DEPT: S ENTERED BY: [id number] RECV BY: [id number] ORDERED: HE, Gross/Micro L3 ORDERED: HE, Gross/Micro L3 Pathological Diagnosis Skin and soft tissue, [...] The microscopic examination confirms the diagnosis. Specimen: [id number] Received: 05/28/23 Status: HAMZAH Barajas Num: [id number] Spec Type: Surgical Subm Dr: Luis Angel Saucedo MD Tissues: A Debridement-Skin/Other Than Skin (POD RT BRST) Procedures: ISIDORO, Gross/Micro L3 Patient: Nora Panrell [id number] (Continued) Specimen: [id number] Received: 05/28/23 (Continued) Signed (signature on file) Zacarias Hunt MD 05/29/23 1548 Specimen: [id number] Received: 05/28/23 Status: HAMZAH Barajas Num: [id number] Spec Type: Surgical Subm Dr: Luis Angel Saucedo MD Tissues: A Debridement-Skin/Other Than Skin (POD RT BRST) Procedures: ISIDORO, Gross/Micro L3 Patient: Nora Parnell [id number] (Continued) Specimen: [id number] Received: 05/28/23 (Continued) CPT Codes 27216 Specimen: [id number] Received: 05/28/23 Status: HAMZAH Barajas Num: [id number] Spec Type: Surgical Subm Dr: Luis Angel Saucedo MD Tissues: A Debridement-Skin/Other Than Skin (POD RT BRST) Procedures: HE, Gross/Micro L3 Patient: Nora Parnell [id number] (Continued) Signed (signature on file) Giovany-Rafa Hunt MD 05/29/23 1548 Normal [facility] Microorganism identified Cx Nom (Unsp spec)on 05-28-2023 CULTURE, ORGANISM ID ANAEROBE [id number] Abnormal [facility] Comment on above: Order Comment: Speci men Type: MICROBIAL ISOLATE Ordering Facility: [facility] Address: [address] [place] [phone] Result Comment: Prev otella bergensis Performed By: #### 1 1475-1 #### [facility] CLIA [id number] [address] [place] [address] [place] [address] [place] No Panel InformationOrdered By: Shine Lea on 05-28-2023 Estimated GFR (CKD-EPI) > 60.0 mL/Min [facility] Creatinine Clearance (Chem 44.56 [facility] Potassium [Moles/volume] in Serum or PlasmaOrdered By: Shine Verduzcoain on 05-28-2023 Potassium [Moles/Vol] 4.1 mmol/L Normal 3.5-5.1 [facility] Comment on above: Performed By: #### B MP #### [address] Serum or plasma anion gap de terminationOrdered By: Shine Verduzcoain on 05-28-2023 Anion gap [Moles/Vol] 12.2 mmol/L Normal 6.0-15.0 [facility] Comment on above: Performed By: #### B MP #### [address] Sodium [Moles/volume] in Ser um or PlasmaOrdered By: Shine Verduzcoain on 05-28-2023 Sodium [Moles/Vol] 140 mmol/L Normal 136-145 [facility] Comment on above: Performed By: #### B MP #### [address] Urea nitrogen [Mass/volume] in Serum or PlasmaOrdered By: Shine Verduzcoain on 05-28-2023 Urea nitrogen [Mass/Vol] 25 mg/dL Normal 7-25 [facility] Comment on above: Performed By: #### B MP #### [address] Automated basophil %Ordered By: Luis Angel Saucedo on 05-17-2023 Basophils/100 WBC (Bld) 0.7 % Normal . [facility] Comment on above: Performed By: #### C BC, BMP ####[facility] [id number] [place] [address] Automated basophil countOrde red By: Luis Angel Saucedo on 05-17-2023 Basophils (Bld) [#/Vol] 0.1 10*3/uL Normal 0.0-0.2 [facility] Comment on above: Result Comment: PERF ORMED BY: [place] [address] PATHOLOGIST DRAFTER [employer]IE[employer] DES[employer] JUDY RASMUSSEN M.D. Performed By: #### C BC, BMP ####[address] Automated blood monocyte cou ntOrdered By: Luis Angel Saucedo on 05-17-2023 Monocytes (Bld) [#/Vol] 1.0 10*3/uL High 0.0-0.8 [facility] Comment on above: Performed By: #### C BC, BMP ####[address] Automated eosinophil %Ordere d By: Luis Angel Saucedo on 05-17-2023 Eosinophils/100 WBC (Bld) 1.6 % Normal . [facility] Comment on above: Performed By: #### C TRACY, BMP ####[address] Automated eosinophil countOr dered By: Luis Angel Saucedo on 05-17-2023 Eosinophils (Bld) [#/Vol] 0.2 10*3/uL Normal 0.0-0.45 [facility] Comment on above: Performed By: #### C TRACY, BMP ####[address] Automated monocyte %Ordered By: Luis Angel Saucedo on 05-17-2023 Monocytes/100 WBC (Bld) 10.3 % Normal . [facility] Comment on above: Performed By: #### C TRACY, BMP ####[address] Automated neutrophil %Ordere d By: Luis Angel Saucedo on 05-17-2023 Neutrophils/100 WBC (Bld) 72.8 % Normal . [facility] Comment on above: Performed By: #### C BC, BMP ####[address] Basic Metabolic Panelon Anion gap [Moles/Vol] Not performed Normal 6.0-15.0 [facility] Comment on above: Performed By: #### C BC, BMP ####[address] [place] [address] [facility] GFR/1.73 sq M.predicted MDRD (S/P/Bld) [Vol rate/Area] 55.878 mL/min/{1.73_m2} Normal [facility] Comment on above: Performed By: #### C BC, BMP ####[address] [address] [facility] Potassium Normal 3.5-5.1 [facility] Comment on above: Result Comment: Spec imen hemolyzed, callback initiated if needed Performed By: #### C BC, BMP ####[address] [address] [facility] Calcium [Mass/volume] in Ser um or PlasmaOrdered By: Luis Angel Saucedo on 05-17-2023 Calcium [Mass/Vol] 9.8 mg/dL Normal 8.6-10.3 [facility] Comment on above: Result Comment: PERF ORMED BY: [facility] [address] [place] [id number] PATHOLOGIST DRAFTER [employer] JUDY RASMUSSEN M.D. Performed By: #### C BC, BMP ####[place] [id number] [facility] Carbon dioxide, total [Moles /volume] in Serum or PlasmaOrdered By: Luis Angel Saucedo on 05-17-2023 CO2 [Moles/Vol] 25.5 mmol/L Normal 21.0-31.0 [facility] Comment on above: Performed By: #### C BC, BMP ####[place] [id number] [facility] Chloride [Moles/volume] in S tyron or PlasmaOrdered By: Luis Angel Saucedo on 05-17-2023 Chloride [Moles/Vol] 108 mmol/L High 98-107 [facility] Comment on above: Performed By: #### C BC, BMP ####[place] [id number] [facility] Complete Blood Count Auto Di ffon 05-17-2023 Mean Corpuscular HGB Conc 33.3 g/dL Normal 32.0-35.0 [facility] Comment on above: Performed By: #### C BC, BMP ####[facility] NRBC% 0.1 /100{WBC} Normal 0-0.5 [facility] Comment on above: Performed By: #### C BC, BMP ####[facility] Creatinine [Mass/volume] in Serum or PlasmaOrdered By: Luis Angel Saucedo on 05-17-2023 Creatinine [Mass/Vol] 0.99 mg/dL Normal 0.60-1.20 [facility] Comment on above: Performed By: #### C BC, BMP ####[place] [address] [address] ECG 12 lead ECGon 05-17-2023 ECG 12 lead ECG [facility] [place] [address] Electrocardiograph Report Signed Patient: Nora Parnell MR#: [id number] : 1940 Acct:[id number] Age/Sex: 83 / F ADM Date: 05/17/23 Loc: Room: Type: [facility] Attending Dr: Luis Angel Saucedo MD Ordering [...] Abnormal ECG When compared with ECG of 04-JAN-2016 13:12, No significant change was found Confirmed by ARPAN ELLSWORTH FACC, STEFANIE ([id number]) on 05/17/2023 3:19:51 PM Referred By: LEWIS Electronically Signed By:STEFANIE RECINOS MD FACC Transcribed By: MUS Signed By Stefanie Recinos MD, [facility] 05/17/23 1519 Normal [facility] Erythrocyte distribution wid th [Ratio] by Automated countOrdered By: Luis Angel Saucedo on 05-17-2023 Erythrocyte distribution width (RBC) [Ratio] 14.3 % Normal 11.9-15.3 [facility] Comment on above: Performed By: #### C TRACY, BMP ####[place] [address] [place] [address] [facility] Erythrocytes [#/volume] in B lood by Automated countOrdered By: Luis Angel Saucedo on 05-17-2023 RBC (Bld) [#/Vol] 4.16 10*6/uL Normal 3.60-5.00 [facility] Comment on above: Performed By: #### C TRACY, BMP ####[place] [address] [place] [address] [facility] Glucose [Mass/volume] in Ser um or PlasmaOrdered By: Luis Angel Saucedo on 05-17-2023 Glucose [Mass/Vol] 101 mg/dL High 70-100 [facility] Comment on above: ADA recommended refe rence rangeRandom Glucose Reference Range is dependent on time and content of last meal. Glucose of more than 200 mg/dL in a nonstressed, ambulatory subject supports the diagnosis of Diabetes Mellitus. Result Comment: [facility] Glucose Reference Range is dependent on time and content of last meal. Glucose of more than 200 mg/dL in a nonstressed, ambulatory subject supports the diagnosis of Diabetes Mellitus. ADA recommended reference range Performed By: #### C TRACY, BMP ####[place] [address] [place] [address] [facility] Hematocrit [Volume Fraction] of Blood by Automated countOrdered By: Luis Angel Saucedo on 05-17-2023 Hematocrit (Bld) [Volume fraction] 36.6 % Normal 34.0-46.4 [facility] Comment on above: Performed By: #### C TRACY, BMP ####[place] [address] [place] [address] [facility] Hemoglobin [Mass/volume] in BloodOrdered By: Luis Angel Saucedo on 05-17-2023 Hemoglobin (Bld) [Mass/Vol] 12.2 g/dL Normal 11.8-15.4 [facility] [facility] Comment on above: Performed By: #### C TRACY, BMP ####[address] Leukocytes [#/volume] correc katia for nucleated erythrocytes in Blood by Automated counOrdered By: Luis Angel Saucedo on 05-17-2023 WBC corrected for nucl RBC Auto (Bld) [#/Vol] 10.1 10*3/uL 3.8-11.6 [facility] Leukocytes [#/volume] in Blo od by Automated countOrdered By: Luis Angel Saucedo on 05-17-2023 WBC (Bld) [#/Vol] 10.1 10*3/uL Normal 3.8-11.6 [facility] Comment on above: Performed By: #### C TRACY, BMP ####[address] Lymphocytes [#/volume] in Bl ood by Automated countOrdered By: Luis Angel Saucedo on 05-17-2023 Lymphocytes (Bld) [#/Vol] 1.5 10*3/uL Normal 1.00-4.8 [facility] Comment on above: Performed By: #### C TRACY, BMP ####[address] Lymphocytes/100 leukocytes i n Blood by Automated countOrdered By: Luis Angel Saucedo on 05-17-2023 Lymphocytes/100 WBC (Bld) 14.6 % Normal . [facility] Comment on above: Performed By: #### C TRACY, BMP ####[place] [id number] [facility] MCH [Entitic mass] by Automa katia countOrdered By: Luis Angel Saucedo on 05-17-2023 MCH (RBC) [Entitic mass] 29.4 pg Normal 24.7-34.3 [facility] Comment on above: Performed By: #### C TRACY, BMP ####[place] [id number] [facility] MCHC Auto (RBC) [Mass/Vol]Or dered By: Luis Angel Saucedo on 05-17-2023 MCHC (RBC) [Mass/Vol] 33.3 g/dL 32.0-35.0 [facility] MCV [Entitic volume] by Auto mated countOrdered By: Luis Angel Saucedo on 05-17-2023 MCV (RBC) [Entitic vol] 88.1 fL Normal 80-100 [facility] Comment on above: Performed By: #### C TRACY, BMP ####[place] [id number] Neutrophils [#/volume] in Bl ood by Automated countOrdered By: Luis Angel Saucedo on 05-17-2023 Neutrophils (Bld) [#/Vol] 7.3 10*3/uL Normal 1.8-7.7 [facility] Comment on above: Performed By: #### C TRACY, BMP ####[place] [id number] No Panel InformationOrdered By: Luis Angel Saucedo on 05-17-2023 Estimated GFR (CKD-EPI) 55.878 mL/Min [facility] Creatinine Clearance (Chem N/A [facility] Nucleated erythrocytes [Pres ence] in Blood by Automated countOrdered By: Luis Angel Saucedo on 05-17-2023 Nucleated RBC Auto Ql (Bld) 0.1 /100{WBC} 0-0.5 [facility] Platelet mean volume [Entiti c volume] in Blood by Automated countOrdered By: Luis Angel Saucedo on 05-17-2023 Platelet mean volume (Bld) [Entitic vol] 10.6 fL Normal 6.3-10.7 [facility] Comment on above: Performed By: #### C TRACY, BMP ####[place] [id number] Platelets [#/volume] in Bloo d by Automated countOrdered By: Luis Angel Saucedo on 05-17-2023 Platelets (Bld) [#/Vol] 228 10*3/uL Normal 150-450 [facility] Comment on above: Performed By: #### C BC, BMP ####[facility] [id number] [place] [address] [facility] Potassium [Moles/volume] in Serum or PlasmaOrdered By: Luis Angel Saucedo on 05-17-2023 Potassium [Moles/Vol] See comment 3.5-5.1 [facility] Comment on above: Specimen hemolyzed, callback initiated if needed Serum or plasma anion gap de terminationOrdered By: Luis Angel Saucedo on 05-17-2023 Anion gap [Moles/Vol] TNP [facility] Comment on above: Test not performed Sodium [Moles/volume] in Ser um or PlasmaOrdered By: Luis Angel Saucedo on 05-17-2023 Sodium [Moles/Vol] 141 mmol/L Normal 136-145 [facility] Comment on above: Performed By: #### C BC, BMP ####[facility] [place] [address] [facility] Urea nitrogen [Mass/volume] in Serum or PlasmaOrdered By: Luis Angel Saucedo on 05-17-2023 Urea nitrogen [Mass/Vol] 19 mg/dL Normal 7-25 [facility] Comment on above: Performed By: #### C TRACY, BMP ####[facility] [address] [place] [address] [facility] Office Visiton 04-11-2023 Follow-up visit [id number] Clari Parnell 1940 F Date Provider Department Center 04/11/2023 STEFANIE RUIZ CARD [facility] Family History Problem Relation Age of Onset No Known Problems Mother No Known Problems Father Family Status - Relation Status Age at Mother Father Level of Service:21315 DE OFFICE/OUTPATIENT ESTABLISHED LOW MDM 20-29 MIN Reason for Visit and Comments: Coronary Artery Disease [187] Hypertension [657170] Normal [facility] 36on 01-04-2023 36 Patient needs an appointment Normal [facility] Physician Referralon 023 Physician Referral [phone] [id number] Normal [facility] CULTURE WOUNDon 08-17-2022 CULTURE WOUND Culture Observations : LIGHT GROWTH OF NORMAL SKIN ARIES. Culture Observations: NO GROWTH OF ANAEROBES AT 72 HOURS. Normal [facility] Comment on above: Performed By: #### W OUNDCX #### [facility] [address] [place] [address] [address] Michael Hunt MG [facility]M DIAGNOSTIC 3D GERARDO CA Don 08-17-2022 MG [facility] DIAGNOSTIC 3D GERARDO CAD Patient: NORA PARNELL Exam Date: 08/17/2022 : 1940 Gender:F Ordering : DR NOBLE FERGUSON D.O. Admission #: [id number] Family : Order #: [id number] CLICK HERE TO VIEW EXAM RADIOLOGY REPORT [...] liver/uterine cancer at age 62. LOCATION: [facility] BREAST COMPOSITION: Scattered areas fibroglandular [...] MD on 08/17/2022 at 14:32 Normal [facility] US BREAST RIGHT LIMITEDon US BREAST RIGHT LIMITED BeDo Other US BREAST RIGHT LIMITED Patient: NORA PARNELL Exam Date: 08/17/2022 : 1940 Gender:F Ordering : DR NOBLE FERGUSON D.O. Admission #: [id number] Family : Order #: [id number] CLICK HERE TO VIEW EXAM RADIOLOGY REPORT [...] liver/uterine cancer at age 62. LOCATION: [facility] BREAST COMPOSITION: Scattered areas fibroglandular [...] MD on 08/17/2022 at 14:32 Normal [facility] CBC AUTO DIFFon 01-26-2022 BASO # 0.1 103/ul Normal 0.0-0.1 [facility] Comment on above: Performed By: #### C BC #### [facility] [address] [place] [address] Dr. Michael Hunt Basophils/100 WBC (Bld) 0.4 % Normal 0.2-2.0 [facility] Comment on above: Performed By: #### C BC #### [facility] [address] [place] [address] Dr. Michael Hunt EO # 0.3 103/ul Normal 0.0-0.7 [facility] Comment on above: Performed By: #### C BC #### [facility] [address] [place] [address] Dr. Michael Hunt Eosinophils/100 WBC (Bld) 2.5 % Normal 0.9-7.0 [facility] Comment on above: Performed By: #### C BC #### [facility] [address] [place] [address] Dr. Michael Hunt Erythrocyte distribution width (RBC) [Ratio] 14.9 % Normal 11.0-15.0 [facility] Comment on above: Performed By: #### C BC #### [facility] [address] [place] [address] Dr. Michael Hunt Hematocrit (Bld) [Volume fraction] 37.0 % Normal 36.0-48.0 [facility] Comment on above: Performed By: #### C BC #### [facility] [address] [place] [address] Dr. Michael Hunt Hemoglobin (Bld) [Mass/Vol] 11.9 g/dL Critically low 12.0-16.0 [facility] Comment on above: Performed By: #### C BC #### [facility] [address] [place] [address] Dr. Michael Hunt IG # 0.06 10e3/ul Critically high 0.00-0.03 [facility] Comment on above: Performed By: #### C BC #### [facility] [address] [place] [address] Dr. Michael Hunt IG % 0.5 % Normal 0.0-0.5 [facility] Comment on above: Performed By: #### C BC #### [facility] [address] [place] [address] Dr. Michael Hunt LYMPH # 1.7 103/ul Normal 1.2-3.8 [facility] Comment on above: Performed By: #### C BC #### [facility] [address] [place] [address] Dr. Michael Hunt Lymphocytes/100 WBC (Bld) 15.5 % Critically low 20.5-60.0 [facility] Comment on above: Performed By: #### C BC #### [facility] [address] [place] [address] Dr. Michael Hunt MANUAL DIFF REQ NO Normal [facility] Comment on above: Performed By: #### C BC #### [facility] [address] [place] [address] Dr. Michael Hunt MCH (RBC) [Entitic mass] 29.2 pg Normal 26.7-34.0 [facility] Comment on above: Performed By: #### C BC #### [facility] [address] [place] [address] Dr. Michael Hunt MCHC (RBC) [Mass/Vol] 32.2 g/dL Normal 29.9-35.2 [facility] Comment on above: Performed By: #### C BC #### [facility] [address] [place] [address] Dr. Michael Hunt MCV (RBC) [Entitic vol] 90.9 fL Normal 81.0-99.0 [facility] Comment on above: Performed By: #### C BC #### [facility] [address] [place] [address] Dr. Michael Hunt MONO # 1.2 103/ul Critically high 0.3-0.8 [facility] Comment on above: Performed By: #### C BC #### [facility] [address] [place] [address] [address] Michael Hunt Monocytes/100 WBC (Bld) 11.0 % Normal 1.7-12.0 [facility] Comment on above: Performed By: #### C BC #### [facility] [address] [place] [address] Dr. Michael Hunt NEUT # 7.8 103/ul Critically high 1.4-6.5 [facility] Comment on above: Performed By: #### C BC #### [facility] [address] [place] [address] Dr. Michael Hunt Neutrophils/100 WBC (Bld) 70.1 % Normal 43.0-75.0 [facility] Comment on above: Performed By: #### C BC #### [facility] [address] [place] [address] Dr. Michael Hunt Platelet mean volume (Bld) [Entitic vol] 10.2 fL Normal 9.5-13.5 [facility] Comment on above: Performed By: #### C BC #### [facility] [address] [place] [address] Dr. Michael Hunt PLT 245 103/ul Normal 150-450 [facility] Comment on above: Performed By: #### C BC #### [facility] [address] [place] [address] Dr. Michael Hunt RBC 4.07 106/ul Critically low 4.20-5.40 [facility] Comment on above: Performed By: #### C BC #### [facility] [address] [place] [address] Dr. Michael Hunt WBC 11.1 103/ul Critically high 4.0-11.0 [facility] Comment on above: Performed By: #### C BC #### [facility] [address] [place] [address] Dr. Michael Hunt LIPID PROFILEon 01-26-2022 CHOL-HDL RATIO NORM SEE BELOW Normal [facility] Comment on above: Result Comment: 3.3 - 4.4 LOW RISK 4.4 - 7.1 AVERAGE RISK 7.1 - 11.0 MODERATE RISK >11.0 HIGH RISK Performed By: #### L IPID, ALT, TSH, BMP #### [facility] [address] [place] [address] [address] Michael Hunt Cholesterol [Mass/Vol] 132 mg/dL Normal <=200 Th [facility] Comment on above: Performed By: #### L IPID, ALT, TSH, BMP #### [facility] [address] [place] [address] [address] Michael Hunt Cholesterol in HDL [Mass/Vol] 53 mg/dL Normal 40-60 [facility] Comment on above: Performed By: #### L IPID, ALT, TSH, BMP #### [facility] [address] [place] [address] Dr. Michael Hunt Cholesterol in LDL [Mass/Vol] 43.0 mg/dL Normal [facility] Comment on above: Performed By: #### L IPID, ALT, TSH, BMP #### [facility] [address] [place] [address] Dr. Michael Hunt Cholesterol.total/Chol esterol in HDL [Mass ratio] 2.5 {ratio} Normal [facility] Comment on above: Performed By: #### L IPID, ALT, TSH, BMP #### [facility] [address] [place] [address] Dr. Michael Hunt HDL NORMAL > or = 60 mg/dl - LO W CARDIOVASCULAR RISK <40 mg/dl - HIGH CARDIOVASCULAR RISK Normal [facility] Comment on above: Performed By: #### L IPID, ALT, TSH, BMP #### [facility] [address] [place] [address] Dr. Michael Hunt LDL CALC NORMAL SEE BELOW Normal [facility] Comment on above: Result Comment: <100 mg/dl OPTIMAL 100 - 129 mg/dl NEAR OR ABOVE OPTIMAL 130 - 159 mg/dl BORDERLINE HIGH 160 - 189 mg/dl HIGH >190 mg/dl VERY HIGH Performed By: #### L IPID, ALT, TSH, BMP #### [facility] [address] [place] [address] Dr. Michael Hunt Triglyceride [Mass/Vol] 180 mg/dL Critically high <=150 [facility] Comment on above: Performed By: #### L IPID, ALT, TSH, BMP #### [facility] [address] [place] [address] [address] Michael Hunt VLDL CALC 36.0 mg/dL Normal [facility] Comment on above: Performed By: #### L IPID, ALT, TSH, BMP #### [facility] [address] [place] [address] Dr. Michael Hunt PROF CHEM 8 (BAS METB)on Anion gap [Moles/Vol] 13.2 mmol/L Normal [facility] Comment on above: Performed By: #### L IPID, ALT, TSH, BMP #### [facility] [address] [place] [address] Dr. Michael Hunt Calcium [Mass/Vol] 9.3 mg/dL Normal 8.5-10.1 [facility] Comment on above: Performed By: #### L IPID, ALT, TSH, BMP #### [facility] [address] [place] [address] Dr. Michael Hunt Chloride [Moles/Vol] 104 mmol/L Normal 98-107 [facility] Comment on above: Performed By: #### L IPID, ALT, TSH, BMP #### [facility] [address] [address] [address] Michael Hunt CO2 [Moles/Vol] 24.7 mmol/L Normal 21.0-32.0 [facility] Comment on above: Performed By: #### L IPID, ALT, TSH, BMP #### [facility] [address] [place] [address] Dr. Michael Hunt Creatinine [Mass/Vol] 1.20 mg/dL Critically high 0.55-1.02 [facility] Comment on above: Performed By: #### L IPID, ALT, TSH, BMP #### [facility] [address] [address] [address] Michael Hunt EGFR-AF PANAMANIAN 52 mL/min/1.73m2 Critically low >=60 [facility] Comment on above: Performed By: #### L IPID, ALT, TSH, BMP #### [facility] [address] [place] [address] Dr. Michael Hunt EGFR-NON AF PANAMANIAN 43 mL/min/1.73m2 Critically low >=60 [facility] Comment on above: Performed By: #### L IPID, ALT, TSH, BMP #### [facility] [address] [address] [address] Michael Hunt Glucose [Mass/Vol] 99 mg/dL Normal 74-106 [facility] Comment on above: Performed By: #### L IPID, ALT, TSH, BMP #### [facility] [address] [place] [address] Dr. Michael Hunt Potassium [Moles/Vol] 4.9 mmol/L Normal 3.5-5.1 [facility] Comment on above: Performed By: #### L IPID, ALT, TSH, BMP #### [facility] [address] [place] [address] Dr. Michael Hunt Sodium [Moles/Vol] 137 mmol/L Normal 136-145 [facility] Comment on above: Performed By: #### L IPID, ALT, TSH, BMP #### [facility] [address] [place] [address] Dr. Michael Hunt Urea nitrogen [Mass/Vol] 30.0 mg/dL Critically high 7.0-18.0 [facility] Comment on above: Performed By: #### L IPID, ALT, TSH, BMP #### [facility] [address] [place] [address] Dr. Michael Hunt Urea nitrogen/Creatinine [Mass ratio] 25.0 mg/mg Normal [facility] Comment on above: Performed By: #### L IPID, ALT, TSH, BMP #### [facility] [address] [place] [address] Dr. Michael Hunt [facility] 01-26-2022 ALT [Catalytic activity/Vol] 54 U/L Normal 14-59 [facility] Comment on above: Performed By: #### L IPID, ALT, TSH, BMP #### [facility] [address] [place], [place] [address] Dr. Michael Hunt TSHon 01-26-2022 TSH 5.136 uIU/mL Critically high 0.358-3.74 0 [facility] Comment on above: Performed By: #### L IPID, ALT, TSH, BMP #### [facility] [address] [place], [place] [address] Dr. Michael Hunt Cardiovascular Lab Reporton 09-03-2018 Cardiovascular Lab Report [facility] Patient Name: [facility] MR #: [id number] Department of Physician: Bala Robles M.D. Division of Service Date: 09/03/2018 Cardiology Birthdate: 1940 Adult Cardiovascular Room #: [place] [address] Cardiovascular Laboratory Report INDICATION: The patient is [...] informed consent. She was brought to the lab pack chemist in a fasting state. The right groin area was prepped and draped in usual fashion. Using micropuncture technique, the right common femoral artery was accessed. The inner cannula was advanced and right femoral angiography was performed followed by upsizing to a 6-Angolan x 11 cm sheath. Access was also obtained using the same technique in the right common femoral vein and a 6-Angolan x 11 cm sheath was placed. A 6-Angolan Lee catheter was used for right heart catheterization with measurement of pressures and calculation of cardiac output using the estimated Patricia method. Lee catheter was removed. Bilateral selective coronary angiography was then performed using 6-Angolan JL4 and JR4 diagnostic catheters. Catheters were removed. Heparin was administered intravenously and therapeutic ACT confirmed during the rest of the procedure and additional heparin given as needed. A 6-Angolan JR4 guiding catheter was advanced and used to engage the right coronary ostium. A Smart Cubewater wire was advanced into the distal RCA. Balloon angioplasty in the mid RCA was performed using Emerge 2.5 x 8 mm balloon inflated at 12 atmospheres. Angiography revealed suboptimal results. This was treated using a Synergy 3.0 x 12 mm drug-eluting stent deployed at 11 atmospheres and post dilated using NC Quantum [place] 3.0 x 8 mm noncompliant balloon inflated [...] up in Cardiology Clinic. Electronically Signed by: Bala Robles M.D. 09/15/2018 06:04 P Bala Robles M.D. Date Dict: 09/03/2018/01:52 P/Bala Robles M.D. Date Trans: 09/03/2018 02:15 P/jaswinder [id number] Normal [facility] Social History Date Type Detail Facility Start: 10-19-2020 End: 10-19-2021 Alcohol intake Current non-drinker of alcohol (finding) [facility] Start: 10-09-2021 End: 10-19-2021 Exposure to SARS-CoV-2 (event) Not sure [facility] Start: 11-12-2014 End: 11-30-2023 Tobacco smoking status NHIS Ex-smoker [facility] Start: 11-12-2014 Cigarettes smoked current (pack per day) - Reported 1 [facility] Start: 11-12-2014 Tobacco use and exposure Smokeless tobacco non-user [facility] Start: 1940 Sex Assigned At Not on file C [facility] Start: 1940 Sex Assigned At Female F [facility] History of tobacco use Cigarette Smoker C [facility] End: 11-10-2007 Sex Assigned At [facility] [employer] Other Vital Signs Date Time Vital Sign Value Performing Clinician Facility 12-01-2023 15:17-0400 Diastolic blood pressure 72 mm[Hg] DO Nika Brown Work Phone: [facility] 12-01-2023 15:17-0400 Heart rate 60 /min DO Nika Brown Work Phone: [facility] 12-01-2023 15:17-0400 Respiratory rate 20 /min DO Nika Brown Work Phone: [facility] 12-01-2023 15:17-0400 SaO2% (BldA) [Mass fraction] 96 % DO Nika Brown Work Phone: [facility] 12-01-2023 15:17-0400 Systolic blood pressure 137 mm[Hg] DO Nika Brown Work Phone: [facility] 12-01-2023 11:55-0400 Body temperature 97.4 [degF] DO Nika Brown Work Phone: [facility] 12-01-2023 06:08-0400 Body weight 80.5 kg DO Nika Brown Work Phone: [facility] 11-30-2023 15:41-0400 Body height 154.94 cm DO Nika Brown Work Phone: [facility] 11-30-2023 14:47-0400 Diastolic blood pressure 76 mm[Hg] DO Nika Brown Work Phone: [facility] 11-30-2023 14:47-0400 Heart rate 65 /min DO Nika Brown Work Phone: [facility] 11-30-2023 14:47-0400 Respiratory rate 16 /min DO Nika Brown Work Phone: [facility] 11-30-2023 14:47-0400 SaO2% (BldA) [Mass fraction] 97 % DO Nika Brown Work Phone: [facility] 11-30-2023 14:47-0400 Systolic blood pressure 191 mm[Hg] DO Nika Brown Work Phone: [facility] 11-30-2023 10:13-0400 Body height 154.94 cm DO Nika Brown Work Phone: [facility] 11-30-2023 10:13-0400 Body weight 82.1 kg DO Nika Brown Work Phone: [facility] 11-30-2023 10:12-0400 Body temperature 98.6 [degF] DO Nika Brown Work Phone: [facility] 11-19-2023 11:24-0400 Body height 152.4 cm DO Nika Rylan Work Phone: [facility] 11-19-2023 11:24-0400 Body mass index (BMI) [Ratio] 35.9 kg/m2 DO Nika Brown Work Phone: [facility] 11-19-2023 11:24-0400 Body weight 83.51 kg DO Nika Brown Work Phone: [facility] 11-19-2023 11:24-0400 Diastolic blood pressure 76 mm[Hg] DO Nika Brown Work Phone: [facility] 11-19-2023 11:24-0400 Heart rate 67 /min DO Nika Brown Work Phone: [facility] 11-19-2023 11:24-0400 Respiratory rate 12 /min DO Nika Brown Work Phone: [facility] 11-19-2023 11:24-0400 SaO2% (BldA) [Mass fraction] 97 % DO Nika Brown Work Phone: [facility] 11-19-2023 11:24-0400 Systolic blood pressure 142 mm[Hg] DO Nika Brown Work Phone: [facility] 08-28-2023 09:24-0400 Body temperature 96.6 [degF] DO Noble Ball Work Phone: [facility] 08-28-2023 09:24-0400 Diastolic blood pressure 57 mm[Hg] DO Noble Ball Work Phone: [facility] 08-28-2023 09:24-0400 Heart rate 65 /min DO Noble Ball Work Phone: [facility] 08-28-2023 09:24-0400 Respiratory rate 18 /min DO Noble Ball Work Phone: [facility] 08-28-2023 09:24-0400 Systolic blood pressure 161 mm[Hg] DO Noble Ball Work Phone: [facility] 08-10-2023 13:57-0500 Body height 152.4 cm DO Noble Ball Work Phone: [facility] 08-10-2023 13:57-0500 Body mass index (BMI) [Ratio] 35.4 kg/m2 DO Noble Ball Work Phone: [facility] 08-10-2023 13:57-0500 Body weight 82.27 kg DO Noble Ball Work Phone: [facility] 08-10-2023 13:57-0500 Diastolic blood pressure 70 mm[Hg] DO Noble Ball Work Phone: [facility] 08-10-2023 13:57-0500 Heart rate 73 /min DO Noble Ball Work Phone: [facility] 08-10-2023 13:57-0500 Respiratory rate 12 /min DO Noble Ball Work Phone: [facility] 08-10-2023 13:57-0500 Systolic blood pressure 150 mm[Hg] DO Noble Ball Work Phone: [facility] 08-07-2023 09:54-0500 Body height 152.4 cm DO Noble Ball Work Phone: [facility] 08-07-2023 09:54-0500 Body mass index (BMI) [Ratio] 35.2 kg/m2 DO Noble Ball Work Phone: [facility] 08-07-2023 09:54-0500 Body weight 81.64 kg DO Noble Ball Work Phone: [facility] 07-16-2023 11:30-0500 Body height 154.94 cm Noble Ball Other [facility] 71lbs Other 07-16-2023 11:30-0500 Body mass index (BMI) [Ratio] 33.74 kg/m2 Noble Ball Other [facility] 71lbs Other 07-16-2023 11:30-0500 Body weight 81.01 kg Noble Ball Other [facility] 71lbs Other 07-16-2023 11:30-0500 Diastolic blood pressure 72 mm[Hg] Noble Ball Other [facility] 71lbs Other 07-16-2023 11:30-0500 Respiratory rate 12 /min Noble Ball Other [facility] 71lbs Other 07-16-2023 11:30-0500 Systolic blood pressure 133 mm[Hg] Noble Ball Other [facility] 71lbs Other 05-28-2023 14:28-0500 Diastolic blood pressure 63 mm[Hg] DO Noble Ball Work Phone: [facility] 05-28-2023 14:28-0500 Heart rate 58 /min DO Noble Ball Work Phone: [facility] 05-28-2023 14:28-0500 Respiratory rate 16 /min DO Noble Ball Work Phone: [facility] 05-28-2023 14:28-0500 SaO2% (BldA) [Mass fraction] 94 % DO Noble Ball Work Phone: [facility] 05-28-2023 14:28-0500 Systolic blood pressure 116 mm[Hg] DO Noble Ball Work Phone: [facility] 05-28-2023 13:22-0500 Inhaled oxygen flow rate 6 L/min DO Noble Ball Work Phone: [facility] 05-28-2023 13:07-0500 Body temperature 97.4 [degF] DO Noble Ball Work Phone: [facility] 05-28-2023 12:32-0500 Body height 154.94 cm DO Noble Ball Work Phone: [facility] 05-28-2023 12:32-0500 Body mass index (BMI) [Ratio] 33.7 kg/m2 DO Noble Ball Work Phone: [facility] 05-28-2023 12:32-0500 Body weight 81 kg DO Noble Ball Work Phone: [facility] 05-15-2023 09:57-0500 Body height 152.4 cm DO Noble Ball Work Phone: [facility] 05-15-2023 09:57-0500 Body mass index (BMI) [Ratio] 35.2 kg/m2 DO Noble Ball Work Phone: [facility] 05-15-2023 09:57-0500 Body weight 81.64 kg DO Noble Ball Work Phone: [facility] 05-15-2023 09:12-0500 Body temperature 98.1 [degF] DO Noble Ball Work Phone: [facility] 05-15-2023 09:12-0500 Diastolic blood pressure 69 mm[Hg] DO Noble Ball Work Phone: [facility] 05-15-2023 09:12-0500 Heart rate 68 /min DO Noble Ball Work Phone: [facility] 05-15-2023 09:12-0500 Respiratory rate 18 /min DO Noble Ball Work Phone: [facility] 05-15-2023 09:12-0500 Systolic blood pressure 168 mm[Hg] DO Noble Ball Work Phone: [facility] 03-13-2023 14:30-0400 Body height 154.94 cm Noble Ball Other [facility] 71lbs Other 03-13-2023 14:30-0400 Body mass index (BMI) [Ratio] 34.01 kg/m2 Noble Ball Other [facility] Other 03-13-2023 14:30-0400 Body weight 81.65 kg Noble Ball Other [facility] [employer] Other 03-13-2023 14:30-0400 Diastolic blood pressure 62 mm[Hg] Noble Ball Other [facility] Other 03-13-2023 14:30-0400 Systolic blood pressure 122 mm[Hg] Noble Ball Other [facility] Other 12-25-2022 15:45-0400 Body height 154.94 cm Noble Ball Other [facility] Other 12-25-2022 15:45-0400 Body mass index (BMI) [Ratio] 33.97 kg/m2 Noble Ball Other [facility] Other 12-25-2022 15:45-0400 Body weight 81.56 kg Noble Ball Other [facility] Other 12-25-2022 15:45-0400 Diastolic blood pressure 70 mm[Hg] Noble Ball Other [facility] Other 12-25-2022 15:45-0400 Respiratory rate 12 /min Noble Ball Other [facility] Other 12-25-2022 15:45-0400 Systolic blood pressure 147 mm[Hg] Noble Ball Other [facility] Other 09-27-2022 12:00-0400 Body height 154.94 cm Noble Ball Other [facility] Other 09-27-2022 12:00-0400 Body mass index (BMI) [Ratio] 34.5 kg/m2 Noble Ball Other [facility] Other 09-27-2022 12:00-0400 Body weight 82.83 kg Noble Ball Other [facility] Other 09-27-2022 12:00-0400 Diastolic blood pressure 86 mm[Hg] Noble Ball Other [facility] Other 09-27-2022 12:00-0400 Respiratory rate 12 /min Noble Ball Other [facility] Other 09-27-2022 12:00-0400 Systolic blood pressure 122 mm[Hg] Noble Ball Other [facility] Other 08-17-2022 10:15-0500 Body height 154.94 cm Noble Ball Other [facility] Other 08-17-2022 10:15-0500 Body mass index (BMI) [Ratio] 34.91 kg/m2 Noble Ball Other [facility] Other 08-17-2022 10:15-0500 Body weight 83.83 kg Noble Ball Other [facility] Other 08-17-2022 10:15-0500 Diastolic blood pressure 78 mm[Hg] Noble Ball Other [facility] Other 08-17-2022 10:15-0500 Respiratory rate 12 /min Noble Ball Other [facility] Other 08-17-2022 10:15-0500 Systolic blood pressure 116 mm[Hg] Noble Ball Other [facility] Other 08-10-2022 10:15-0500 Body height 154.94 cm Noble Ball Other [facility] Other 08-10-2022 10:15-0500 Body mass index (BMI) [Ratio] 34.91 kg/m2 Noble Ball Other [facility] Other 08-10-2022 10:15-0500 Body weight 83.83 kg Noble Ball Other [facility] Other 08-10-2022 10:15-0500 Diastolic blood pressure 76 mm[Hg] Noble Ball Other [facility] Other 08-10-2022 10:15-0500 Respiratory rate 12 /min Noble Ball Other [facility] Other 08-10-2022 10:15-0500 Systolic blood pressure 112 mm[Hg] Noble Ball Other [facility] Other 10-19-2021 12:57-0400 Body height 157.5 cm Genny Winters PA-C Work Phone: [facility] 10-19-2021 12:57-0400 Body temperature 97.7 [degF] Genny Vianey PA-C Work Phone: [facility] 10-19-2021 12:57-0400 Body weight 83.28 kg Genny Vianey PA-C Work Phone: [facility] 10-19-2021 12:57-0400 Diastolic blood pressure 52 mm[Hg] Genny Vianey PA-C Work Phone: [facility] 10-19-2021 12:57-0400 Heart rate 69 /min Genny Vianey PA-C Work Phone: [facility] 10-19-2021 12:57-0400 Respiratory rate 18 /min Genny Vianey PA-C Work Phone: [facility] 10-19-2021 12:57-0400 SaO2% (BldA) [Mass fraction] 94 % Genny Vianey PA-C Work Phone: [facility] 10-19-2021 12:57-0400 Systolic blood pressure 164 mm[Hg] Genny Vianey PA-C Work Phone: [facility] Functional Status Date Assessment Result Facility 12-01-2023 Functional status Patient at Baseline [facility] Work Phone: 11-30-2023 Functional status Patient at Baseline [facility] Work Phone: Mental Status Date Assessment Result Facility 12-01-2023 Cognitive function Cognitive Sta tus Patient at Baseline [facility] Work Phone: 11-30-2023 Cognitive function Cognitive Sta tus Patient at Baseline [facility] Work Phone: Clinical Notes 09-22-2021 to 11-30-2023 Note Date & Type Note Facility 11-30-2023 History and physi red note Note Date/Time November 30, 2023 3:48pm [facility] [address] [place] [address] Hospitalist H&P Signed Patient: Nora Parnell MR#: [id number] : 1940 Acct:[id number] Age/Sex: 83 / F Adm Date: 4 Loc: Room: [address] [place] [address] Type: ADM INOo Attending Dr: Jim Clay DO Copies to: DO Jim Jean-Baptiste, DO~ HPI DATE OF EXAMINATION: 11/30/23 CHIEF COMPLAINT: chest pain HISTORY OF PRESENT ILLNESS: Ms. Parnell is a 83F with a history of previous CAD with stent in place and COPDwho presents to the ED today with SOB and chest pain on exertion. She reports that she was SOB when she got up this morning and then started experiencing someleft chest pain when she was walking to the shower a few hours later. She reports that this pain was sharp at first and then felt more like pressure like she had to burp but couldn't. She states that she started having some jaw pain with this while in the ED. She did not take any of her home meds this morning and her BP was 194/77 in the ED. She states that she has had a long history of SOB starting last May that has been getting worse for the last couple of weeks but she has never experienced this chest pain before. She has also been experiencing some LE edema for which her PCP recently took her off amlodipine and started torsemide. She recently saw her faculty head who recommended an echocardiogram and a stress test that are scheduled for next week. She denies fever, chills, cough, wheeze, N/V/D. Deep inspiration and palpation of her left lateral ribcage reproduces the chest pain she was experiencing earlier. She states that this pain stays localized to her lateral ribcage and does not radiate down her arm or into her jaw. She denies any falls or trauma to this area. Initial labs revealed nonsignificant CBC and CMP. Slightly elevated BNP of 274. Serial troponins in the ED were negative. D-dimer 734. Chest x-ray showed interval development of mild pleural-parenchymal opacity at the left lung base. CTA showed no acute pulmonary embolus. Pt admitted to the floor for observation. Review of Systems Review of Systems All other systems reviewed & are negative unless noted below or in HPI [facility] Medical History (Updated 11/30/23 @ 13:34 by Nika Fagan DO) Lower extremity edema Acute on chronic heart failure with preserved ejection fraction (HFpEF) Edema Chronic bronchitis Stage 3a chronic kidney disease Nicotine dependence, cigarettes, in remission Necrotizing fasciitis Insomnia Essential hypertension Dysesthesia De Quervain's tenosynovitis Chronic venous insufficiency Chronic bronchitis, mucopurulent Cataract Hx of skin cancer, basal cell Basal cell carcinoma of face ASHD (arteriosclerotic heart disease) Pernicious anemia Primary insomnia Osteoporosis Breast cancer right Hyperlipidemia Hypothyroidism Surgical History History of tonsillectomy and adenoidectomy History of hysterectomy H/O dilation and curettage H/O colonoscopy H/O cervical biopsy Hx of heart artery stent 2018 Hx [...] Tobacco Type: cigarettes Substance Use Type: None Meds Medications and Allergies Allergies penicillamine Allergy (Unknown, Verified 11/30/23 10:14) Hives Penicillins Allergy (Unknown, Verified 11/30/23 10:14) Hives Sulfa (Sulfonamide Antibiotics) Allergy (Unknown, Verified 11/30/23 10:14) Hives sulfacetamide [Sulfacet-R] Allergy (Unknown, Verified 11/30/23 10:14) Rash sulfur [Sulfacet-R] Allergy (Unknown, Verified 11/30/23 10:14) Rash Home Medications aspirin 81 mg chewable tablet 81 mg PO DAILY 04/24/23 [History Confirmed 11/30/23] atorvastatin 40 mg tablet 40 mg PO DAILY 04/24/23 [History Confirmed 11/30/23] biotin 1,250 mcg-collagen 50 mg-vit C 67.5 mg-vit E-herbal chew tablet 2 tab PO DAILY.PC.SUPPER 04/24/23 [History Confirmed 11/30/23] calcium carbonate 600 mg-vitamin D3 10 mcg (400 unit) tablet (Calcium 600 + D(3)) 1 tab PO DAILY 04/24/23 [History Confirmed 11/30/23] fluticasone fur. 200 mcg-umeclid 62.5 mcg-vilant 25 mcg inhalat.powder (Trelegy Ellipta) 1 inh inhalation DAILY 04/24/23 [History Confirmed 11/30/23] inulin 2 gram chewable tablet (Fiber Gummies) 2 g PO BID 04/24/23 [History Confirmed 11/30/23] isosorbide mononitrate 60 mg tablet,extended release 24 hr 60 mg PO QAM 04/24/23[History Confirmed 11/30/23] levothyroxine 88 mcg tablet 88 mcg PO QAM 04/24/23 [History Confirmed 11/30/23] acetaminophen 500 mg tablet 500 mg PO Q6H PRN Pain 05/17/23 [History Confirmed 11/30/23] albuterol sulfate 90 mcg/actuation aerosol inhaler 2 puff inhalation DIRECTEDPRN Shortness Of Breath 05/17/23 [History Confirmed 11/30/23] cyanocobalamin (vitamin B-12) 1,000 mcg/mL injection solution 1,000 mcg IM QMONTH 05/17/23 [History Confirmed 11/30/23] temazepam 30 mg capsule 30 mg PO QHS 30 days #30 ea 08/03/23 [Rx Confirmed 11/30/23] lisinopril 20 mg tablet See Rx Instructions .Route .COMPLEX #30 ea 08/30/23 [Rx Confirmed 11/30/23] doxazosin 2 mg tablet 2 mg PO QHS 11/30/23 [History Confirmed 11/30/23] Exam Physical Exam Vital Signs: Temp Pulse Resp BP Pulse Ox O2 Del Method 98.6 F 65 16 191/76 H 97 Room Air 11/30/23 10:12 11/30/23 14:47 11/30/23 14:47 11/30/23 14:47 11/30/23 14:47 11/30/23 14:47 Narrative: GENERAL: No apparent distress, alert, oriented, comfortable HEENT: NC/AT, EOMI, conjunctiva clear CARDIOVASCULAR: Regular rate and rhythm, no murmurs rubs or gallops RESPIRATORY: nonlabored work of breathing on room air, clear to auscultation bilaterally Chest: left lateral ribcage tender to palpation ABDOMEN: Soft, non-tender, non-distended, normal bowel sounds EXTREMITIES: moving all extremities well. Well-perfused. Sensation intact. LE with 1+ pitting edema, left calf mildly tender to palpation SKIN: Intact, no rash, no trauma NEURO: Cranial nerves grossly intact, no focal neurologic signs PSYCHIATRIC: Good eye contact, appropriate mood and affect, cooperative Results - Hospitalist H&P Lab Results Labs: Laboratory Last Values Corrected WBC 6.1 X10E3/uL (3.8-11.6) 11/30/23 10:25 Uncorrected WBC Count 6.1 x10E3/uL (3.8-11.6) 11/30/23 10:25 RBC 4.17 X10E6/uL (3.60-5.00) 11/30/23 10:25 Hgb 12.5 g/dL (11.8-15.4) 11/30/23 10:25 Hct 37.9 % (34.0-46.4) 11/30/23 10:25 MCV 90.9 fl (80-100) 11/30/23 10:25 MCH 30.0 pg (24.7-34.3) 11/30/23 10:25 MCHC 33.0 g/dL (32.0-35.0) 11/30/23 10:25 RDW 13.4 % (11.9-15.3) 11/30/23 10:25 Plt Count 195 x10E3/uL (150-450) 11/30/23 10:25 MPV 9.3 fl (6.3-10.7) 11/30/23 10:25 Neut % (Auto) 66.7 % (.) 11/30/23 10:25 Lymph % (Auto) 20.1 % (.) 11/30/23 10:25 Liberty % (Auto) 9.8 % (.) 11/30/23 10:25 Eos % (Auto) 2.8 % (.) 11/30/23 10:25 Baso % (Auto) 0.6 % (.) 11/30/23 10:25 Nucleat RBC Rel Count 0.1 /100 WBC (0-0.5) 11/30/23 10:25 Neut # (Auto) 4.1 x10E3/uL (1.8-7.7) 11/30/23 10:25 Lymph # (Auto) 1.2 x10E3/uL (1.00-4.8) 11/30/23 10:25 Liberty # (Auto) 0.6 x10E3/uL (0.0-0.8) 11/30/23 10:25 Eos # (Auto) 0.2 x10E3/uL (0.0-0.45) 11/30/23 10:25 Baso # (Auto) 0.0 x10E3/uL (0.0-0.2) 11/30/23 10:25 Monocyte Dist Width 16.37 % (0.00-20.00) 11/30/23 10:25 PT 11.6 Seconds (9.0-12.9) 11/30/23 10:25 INR 1.0 11/30/23 10:25 APTT 29.1 Seconds (25.1-36.5) 11/30/23 10:25 D-Dimer Quant (PE/DVT) 734 ng/mL (0-243) H 11/30/23 10:25 PHA Creatinine Clear 43.90 11/30/23 10:25 Sodium 141 mmol/L (136-145) 11/30/23 10:25 Potassium 4.1 mmol/L (3.5-5.1) 11/30/23 10:25 Chloride 111 mmol/L (98-107) H 11/30/23 10:25 Carbon Dioxide 20.0 mmol/L (21.0-31.0) L 11/30/23 10:25 Anion Gap 14.1 mEq/L (6.0-15.0) 11/30/23 10:25 BUN 24 mg/dL (7-25) 11/30/23 10:25 Creatinine 0.91 mg/dL (0.60-1.20) 11/30/23 10:25 Est GFR (CKD-EPI) > 60.0 mL/Min 11/30/23 10:25 Glucose 121 mg/dL (70-100) H 11/30/23 10:25 Calcium 9.4 mg/dL (8.6-10.3) 11/30/23 10:25 Total Bilirubin 0.5 mg/dl (0.3-1.0) 11/30/23 10:25 AST 25 U/L (13-39) 11/30/23 10:25 ALT 20 U/L (7-52) 11/30/23 10:25 Alkaline Phosphatase 89 U/L (34-104) 11/30/23 10:25 Troponin I High Sens 8.5 pg/mL (0.0-15.0) 11/30/23 12:06 B-Natriuretic Peptide 274.0 pg/mL (5-100) H 11/30/23 10:25 Total Protein 6.9 gm/dL (6.4-8.9) 11/30/23 10:25 Albumin 4.1 gm/dL (3.5-5.7) 11/30/23 10:25 Globulin 2.8 gm/dL 11/30/23 10:25 Albumin/Globulin Ratio 1.5 11/30/23 10:25 Assessment & Plan Assessment/Plan (1) Chest pain: (2) Essential hypertension: (3) Lower extremity edema: Plan Mrs. Parnell is an 83F with a history of CAD with stent in place and COPD who presented to the ED with worsening SOB and chest pain on exertion. Initial labs revealed nonsignificant CBC and CMP. Slightly elevated BNP of 274. Serial troponins in the ED were negative. D-dimer 734. Chest x-ray showed interval development of mild pleural-parenchymal opacity at the left lung base. CTA showed no acute pulmonary embolus. Chest pain LE edema - admit to floor for observation - chest pain suspected to be noncardiac in nature as palpation over the left lateral ribcage reproduces the pain- will give cyclobenzaprine for suspect MSK pain - Protonix started in case pain is GI in nature, MAG-AL-PLUS, Elixir PRN - continuous telemetry - will order echocardiogram - will order LE duplex US for DVT rule out considering D-dimer 734. - trend troponin - will get CBC, BMP, Mg, lipid panel and A1C in AM Chronic problems: HTN - resume home meds Diet: heart healthy diet DVT ppx: Lovenox CODE STATUS: DNR per patient wishes I personally saw this patient on the day of the encounter, reviewed the history,performed the jodran elements of the exam, formulated the plan of care and confirmed the Medical Student's assessment and plan. Seen in conjunction with student Dr. Guillen, patient was admitted with chest pain which is reproducible topalpation on her left lateral rib and also chest left of her sternum above her breast, she also has slight pleuritic pain with deep inspiration, as explained to her is likely related to her small left pleural effusion. She does endorse dyspnea with exertion approximately 15 to 20 feet walking to the bathroom when sitting and worse with time, she is a history of CAD status post stents in 2019,there is some concern for CHF at this point in time. She admitted for observation, troponins trended and she was at echocardiogram tomorrow. - Jim Clay DO IP vs OBS Justification Based on differential dx, clinical care plan, and risk of adverse events, if untreated, in my clinical judgement this patient requires an acute care setting as: OBSERVATION because of an expectation of an under 2 midnight stay. Estimated length of stay (# of days): 1 Documented By: Jim Clay DO 11/30/23 6830 Signed By: <Electronically signed by Jim Clay DO> 11/30/23 5855 [facility] Work Phone: 1(321) 196-709306-14-2024 NoteUT Cardiology - [facility] Subjective Nora Parnell is a 83 y.o. year old female patient being seen for 6 mo follow up CAD, hypertension, and hyperlipidemia. Had labs last week. She saw Dr. Ferguson on Sunday and he recommends amlodipine be decreased due to SOB and increased LE edema. He also recommends lisinopril be increased to 30 or 40mg. He had her take torsemide 20mg x 3 days, which she has completed. Patient says this did not help her LE edema. Patient Active Problem List Diagnosis Arthritis Bowel obstruction (CMS/HCC) Chronic obstructive lung disease (CMS/HCC) Coronary artery disease Dyspnea on exertion History of breast cancer Hyperlipidemia Hypertension Breast cancer (CMS/HCC) Necrotizing fasciitis (CMS/HCC) Status post percutaneous transluminal coronary angioplasty Hx of heart artery stent Acute on chronic heart failure with preserved ejection fraction (HFpEF) (CMS/HCC) Edema History of radiation exposure Hypothyroidism Nonhealing surgical wound Open wound of right breast Pernicious anemia Insomnia Stage 3a chronic kidney disease (CMS/HCC) Family History Problem Relation Name Age of Onset No Known Problems Mother No Known Problems Father Social History Tobacco Use Smoking status: Former Types: Cigarettes Quit date: 2007 Years since quittin.4 Smokeless tobacco: Never Substance Use Topics Alcohol use: Never HPI Nora is seen in follow-up. She is an 83-year-old woman with history of COPD and coronary artery disease status post stenting of the RCA in 2019. At that time she had moderate disease in the circumflex and apical LAD. This has been managed medically. Additional medical history includes hypertension on treatment. Recently she has been having significant symptoms of shortness of breath on mild exertion. No chest pain. Those symptoms are relieved by rest. She has been having significant lower extremity swelling and was tried by her PCP on diuretic therapy that did not help. Lower extremity duplex did not show any DVT. Review of Systems Cardiovascular: Positive for dyspnea on exertion and leg swelling. Musculoskeletal: Positive for arthritis, back pain, joint pain and myalgias. All other systems reviewed and are negative. Objective Visit Vitals BP 138/60 (BP Location: Left arm, Patient Position: Sitting) Pulse 67 Ht 1.549 m (5' 1 ) Wt 82.1 kg (181 lb) SpO2 94% BMI 34.20 kg/m??? Smoking Status Former BSA 1.88 m??? Physical Exam Constitutional: Appearance: She is well-developed. She is obese. She is not ill-appearing. HENT: Head: Normocephalic and atraumatic. Nose: Nose normal. Eyes: General: No scleral icterus. Pupils: Pupils are equal, round, and reactive to light. Neck: Thyroid: No thyromegaly. Vascular: No JVD. Cardiovascular: Rate and Rhythm: Normal rate and regular rhythm. Pulses: Radial pulses are 2+ on the right side and 2+ on the left side. Heart sounds: Normal heart sounds. No murmur heard. No friction rub. No gallop. Pulmonary: Effort: Pulmonary effort is normal. No respiratory distress. Breath sounds: Normal breath sounds. No wheezing or rales. Chest: Chest wall: No tenderness. Abdominal: General: Bowel sounds are normal. There is no distension. Palpations: Abdomen is soft. Tenderness: There is no abdominal tenderness. Musculoskeletal: General: No swelling. Cervical back: Neck supple. Right lower le+ Pitting Edema present. Left lower le+ Pitting Edema present. Skin: General: Skin is warm and dry. Neurological: General: No focal deficit present. Mental Status: She is alert and oriented to person, place, and time. Psychiatric: Mood and Affect: Mood normal. Behavior: Behavior is cooperative. Judgment: Judgment normal. Allergies Allergies Allergen Reactions Penicillins Anaphylaxis, Hives, Other and Unknown Sulfa (Sulfonamide Antibiotics) Hives, Other, Rash and Unknown Medications Current Outpatient Medications: aspirin 81 mg EC tablet, Take 1 tablet by mouth in the morning., Disp: , Rfl: atorvastatin (Lipitor) 40 mg tablet, Take 1 tablet (40 mg) by mouth in the morning., Disp: 90 tablet, Rfl: 3 htiagpwqxhd-tdqqdlajo-rmgpmcne 200-62.5-25 mcg blister with device, INHALE 1 PUFF ONCE DAILY, Disp: , Rfl: isosorbide mononitrate ER (Imdur) 60 mg 24 hr tablet, Take 1 tablet (60 mg) by mouth in the morning., Disp: 90 tablet, Rfl: 3 levothyroxine (Synthroid, Levoxyl) 88 mcg tablet, 1 (one) time each day at the same time., Disp: , Rfl: lisinopril 20 mg tablet, Take 1 tablet by mouth in the morning., Disp: , Rfl: temazepam (Restoril) 30 mg capsule, TAKE ONE CAPSULE BY MOUTH ONCE DAILY AT BEDTIME, Disp: , Rfl: doxazosin (Cardura) 2 mg tablet, Take 1 tablet (2 mg) by mouth at bedtime., Disp: 90 tablet, Rfl: 3 Recent Labs No visits with results within 6 Month(s) from this visit. Latest known visit with results is: L (more content not included)...[facility]02-27-2024 Progress note Author Luis Angel Sauecdo [facility] August 07, 2023 9:59am Note Date/Time August 07, 2023 9:54am [facility] [address] [place] [address] Wound Center Provider Note Signed Patient: Nora Parnell MR#: [id number] : 1940 Acct:[id number] Age/Sex: 83 / F Copies to: MD Noble West DO~ HPI Date of Visit Date of Visit: [...] hematoma. She did see her surgeon in [place] who did her previous surgery. Patient had some punch biopsies performed to rule out cancer which apparently did not show any cancer. She did develop nonhealing wound at this site. She underwent a couple debridements and closures in [place] but each time, the wound did open up and start draining. The last debridement was last month. The surgeon who did her previous surgerieshas since left and the patient did see Dr. Kurtz last week. He did remove some remaining sutures and the patient was then referred here. Patient is currently having dressing changes performed at the [facility]. She has an open right breast wound [...] did wound start?: 08/2022 Mode of Arrival/ Hat Blocking Operator: Personal vehicle Lives with:: Alone Appetite Description: Within Normal Limits Who helps w/ dressing change?: Home Health and Wound Care Dept Why Do You Need Help?: Can't Reach Ulcer Smoking Status: Former smoker Constitutional Constitutional: Denies fever(s) Integumentary/Breasts Skin/Breast: Reports wounds [facility] Medical History (Updated 08/06/23 @ 13:22 by [...] 0.1 CM Sq: 0.010 Surrounding Tissue Appearance: [place] Surrounding Tissue Temp: Warm Drainage Amount: None [...] by MD Luis Angel Saucedo> 08/07/23 0959 [facility] Work Phone: 1(309) 466-891202-06-2024 Progress note Author Luis Angel Saucedo [facility] July 17, 2023 9:52am Note Date/Time July 17, 2023 9 :52am [facility] [address] [place] [address] Wound Center Provider Note Signed Patient: Nora Parnell MR#: [id number] : 1940 Acct:[id number] Age/Sex: 83 / F Copies to: MD Noble West DO~ HPI Date of Visit Date of Visit: [...] hematoma. She did see her surgeon in [place] who did her previous surgery. Patient had some punch biopsies performed to rule out cancer which apparently did not show any cancer. She did develop nonhealing wound at this site. She underwent a couple debridements and closures in [place] but each time, the wound did open up and start draining. The last debridement was last month. The surgeon who did her previous surgerieshas since left and the patient did see Dr. Kurtz last week. He did remove some remaining sutures and the patient was then referred here. Patient is currently having dressing changes performed at the [facility] infusion center. She has an [...] did wound start?: 08/2022 Mode of Arrival/ Hat Blocking Operator: Personal vehicle Lives with:: Alone Appetite Description: Within Normal Limits Who helps w/ dressing change?: [facility] Dept Why Do You Need Help?: Can't Reach Ulcer Smoking Status: Former smoker Constitutional Constitutional: Denies fever(s) Gastrointestinal Gastrointestinal: Denies abdominal pain Integumentary/Breasts Skin/Breast: Reports wounds Neurologic Neurologic: Denies syncope [facility] Medical History CAD (coronary artery disease) Osteoporosis [...] Right Breast: Bed Appearance: Beefy Red, Devitalized, [place] and Yellow Percent of Wound Bed Granulated/Red: 60 Percent of Devitalized: 40 Length (cm): 1.0 Width (cm): 2 Depth (cm): 0.9 CM Sq: 2.000 Surrounding Tissue Appearance: [place] Surrounding Tissue Temp: Warm Drainage Amount: Small [...] <Electronically signed by MD Luis Angel Saucedo> 07/17/2352 [facility] Work Phone: 1(659) 414-424702-05-2024 Evaluation note* Encounter Date Diagnosis Assessment Notes [...] abstinence. Not a candidate for yearly LDCT [facility] Other 01-24-2024 Evaluation note* Encounter Date Diagnosis Assessment Notes Treatment Notes Treatment Clinical Notes Jun, Pernicious anemia (ICD-10 - D51.0) [facility] Other 01-23-2024 Progress note Author Luis Angel Saucedo [facility] July 03, 2023 12:04pm Note Date/Time July 03, 2023 1 2:04pm [facility] [address] [place] [address] Wound Center Provider Note Signed Patient: Nora Parnell MR#: [id number] : 1940 Acct:[id number] Age/Sex: 83 / F Copies to: MD [...] hematoma. She did see her surgeon in [place] who did her previous surgery. Patient had some punch biopsies performed to rule out cancer which apparently did not show any cancer. She did develop nonhealing wound at this site. She underwent a couple debridements and closures in [place] but each time, the wound did open up and start draining. The last debridement was last month. The surgeon who did her previous surgerieshas since left and the patient did see Dr. Kurtz last week. He did remove some remaining sutures and the patient was then referred here. Patient is currently having dressing changes performed at the [facility]. She has an open right breast wound [...] did wound start?: 08/2022 Mode of Arrival/ Hat Blocking Operator: Personal vehicle Lives with:: Alone Appetite Description: Within Normal Limits Who helps w/ dressing change?: [facility] Dept Why Do You Need Help?: Can't Reach Ulcer Smoking Status: Former smoker Constitutional Constitutional: Denies fever(s) Integumentary/Breasts Skin/Breast: Reports wounds [facility] Medical History CAD (coronary artery disease) Osteoporosis [...] Right Breast: Bed Appearance: Beefy Red, Devitalized, [place] and Yellow Percent of Wound Bed Granulated/Red: 10 Percent of Devitalized: 90 Length (cm): 0.8 Width (cm): 2 Depth (cm): 1 CM Sq: 1.600 Surrounding Tissue Appearance: [place] Surrounding Tissue Temp: Warm Drainage Amount: Small [...] Dictated By: Luis Angel Saucedo MD DD/ 1203 Signed By: <Electronically signed by MD Luis Angel Saucedo> 07/03/23 1204 [facility] Work Phone: 1(754) 454-411101-02-2024 Progress note Author Luis Angel Saucedo [facility] June 12, 2023 9:26am Note Date/Time June 12, 2023 9: 26am [facility] [address] [place] [address] Wound Center Provider Note Signed Patient: Nora Parnell MR#: [id number] : 1940 Acct:[id number] Age/Sex: 83 / F Copies to: MD Noble West,DO~ HPI Date of Visit Date of Visit: Date of Service: 06/12/2023 Time of Service: 09:23 Narrative HPI: Patient is status post debridement of her right breast wound. Pathology showed chronic wound changes. No mention of malignancy. Cultures grew normal skin aries. There was an anaerobe identified and that [place] [facility] [place] [facility]. Patient was started on negative pressure [...] hematoma. She did see her surgeon in [place] who did her previous surgery. Patient had some punch biopsies performed to rule out cancer which apparently did not show any cancer. She did develop nonhealing wound at this site. She underwent a couple debridements and closures in [place] but each time, the wound did open up and start draining. The last debridement was last month. The surgeon who did her previous surgerieshas since left and the patient did see Dr. Kurtz last week. He did remove some remaining sutures and the patient was then referred here. Patient is currently having dressing changes performed at the [facility] infusion center. She has an [...] did wound start?: 08/2022 Mode of Arrival/ Hat Blocking Operator: Personal vehicle Lives with:: Alone Appetite Description: Within Normal Limits Who helps w/ dressing change?: [facility] Dept Why Do You Need Help?: Can't Reach Ulcer Smoking Status: Former smoker Constitutional Constitutional: Denies fever(s) Integumentary/Breasts Skin/Breast: Reports wounds [facility] Medical History Breast cancer right CAD (coronary [...] 10:29) Hives Wound/Ulcer Right Breast: Bed Appearance: [place] and Yellow Percent of Wound Bed Granulated/Red: 10 Percent of Devitalized: 90 Length (cm): 1.2 Width (cm): 2.9 Depth (cm): 2.5 CM Sq: 3.480 Surrounding Tissue Appearance: [place] Surrounding Tissue Temp: Warm Drainage Amount: Small [...] <Electronically signed by MD Luis Angel Saucedo> 06/12/23925 [facility] Work Phone: 1(267) 505-159112-20-2023 Evaluation note* Encounter Date Diagnosis Assessment Notes Treatment Notes Treatment Clinical Notes May, Pernicious anemia (ICD-10 - D51.0) [facility] Other 12-18-2023 Hospital Discharge instructions Additional Instructions Initiate negative pressure wound therapy using black foam at 125 mmHg continuous. Change 3 times a week. In the meantime, perform dressing changes daily. Remove packing, irrigate with saline/Vashe and repack with saline moistened 4 x 4 gauze and cover with dry dressing.[facility] Work Phone: 1(286) 396-807012-05-2023 Progress note Author Luis Angel Saucedo [facility] May 15, 2023 9:57am Note Date/Time May 15, 2023 9 :57am [facility] [address] [place] [address] Wound Center Provider Note Signed Patient: Nora Parnell MR#: [id number] : 1940 Acct:[id number] Age/Sex: 83 / F Copies to: MD [...] hematoma. She did see her surgeon in [place] who did her previous surgery. Patient had some punch biopsies performed to rule out cancer which apparently did not show any cancer. She did develop nonhealing wound at this site. She underwent a couple debridements and closures in [place] but each time, the wound did open up and start draining. The last debridement was last month. The surgeon who did her previous surgerieshas since left and the patient did see Dr. Kurtz last week. He did remove some remaining sutures and the patient was then referred here. Patient is currently having dressing changes performed at the [facility]. She has an open right breast wound [...] did wound start?: 08/2022 Mode of Arrival/ Hat Blocking Operator: Personal vehicle Lives with:: Alone Appetite Description: Within Normal Limits Who helps w/ dressing change?: [facility] Dept Why Do You Need Help?: Can't Reach Ulcer Smoking Status: Former smoker Constitutional Constitutional: Denies fever(s) Cardiovascular Cardiovascular: Denies chest pain Respiratory Respiratory: Denies dyspnea Integumentary/Breasts Skin/Breast: Reports wounds [facility] Medical History (Updated 04/24/23 @ 11:09 by [...] by MD Luis Angel Saucedo> 05/15/23 0957 [facility] Work Phone: [phone]) [phone] Evaluation note* Encounter Date Diagnosis Assessment Notes Treatment Notes Treatment Clinical Notes Apr, Pernicious anemia (ICD-10 - D51.0) [facility] Other 11-14-2023 Progress note Author Luis Angel Saucedo [facility] April 24, 2023 11:12am Note Date/Time April 24, 2023 10:46am [facility] [address] [place] [address] Wound Center Provider Note Signed Patient: Nora Parnell MR#: [id number] : 1940 Acct:[id number] Age/Sex: 83 / F Copies to: Luis Angel Saucedo MD Noble Ferguson,DO~ HPI Date of Visit Date of Visit: [...] hematoma. She did see her surgeon in [place] who did her previous surgery. Patient had some punch biopsies performed to rule out cancer which apparently did not show any cancer. She did develop nonhealing wound at this site. She underwent a couple debridements and closures in [place] but each time, the wound did open up and start draining. The last debridement was last month. The surgeon who did her previous surgerieshas since left and the patient did see Dr. Kurtz last week. He did remove some remaining sutures and the patient was then referred here. Patient is currently having dressing changes performed at the [facility] infusion center. She has an [...] did wound start?: 08/2022 Mode of Arrival/ Hat Blocking Operator: Personal vehicle Lives with:: Alone Appetite Description: Within Normal Limits Who helps w/ dressing change?: [facility] Dept Why Do You Need Help?: Can't Reach Ulcer Smoking Status: Former smoker Constitutional Constitutional: Denies fever(s) Cardiovascular Cardiovascular: Denies chest pain Respiratory Respiratory: Denies dyspnea Gastrointestinal Gastrointestinal: Denies abdominal pain Integumentary/Breasts Skin/Breast: Reports wounds Neurologic Neurologic: Denies syncope [facility] Medical History (Updated 11/14/23 @ 11:09 by Luis Angel Saucedo MD) [...] Breast: Bed Appearance: Epithelial Tissue or Bridge, [place] and Yellow Percent of Wound Bed Granulated/Red: [...] be done daily. Patient goes to the [facility] for this. Patient follow-up here in 3 [...] by MD Luis Angel Saucedo> 04/24/23 1112 [facility] Work Phone: [phone]) [phone] NotePatient here for follow up CAD and hypertension. Recently had another breast surgery to repair infection from biopsy. Still dealing with some drainage from that. She denies chest pain, SOB, palpitations, and lightheadedness. Review of Systems Skin: Positive for poor wound healing. Musculoskeletal: Positive for arthritis, back pain and joint pain. All other systems reviewed and are negative.[facility] 04-11-2023 NoteCardiovascular Medicine [facility] SUBJECTIVE Chief Complaint Patient presents with Coronary [...] the morning., Disp: 90 tablet, Rfl: 3 egpqvytkhzj-ofzfhxuvp-nhjthflx 200-62.5-25 mcg blister with device, INHALE 1 [...] Final Atrial Rate 09/03/2018 70 BPM Final DE Interval 09/03/2018 172 ms Final QRS DURATION 09/03/2018 84 ms Final QT Interval 09/03/2018 398 ms Final QTC CALCULATION(BEZET) 09/03/2018 429 ms Final P [place] 09/03/2018 70 degrees Final R-[place] 09/03/2018 65 degrees Final T Wave [place] 09/03/2018 83 degrees Final Diagnosis 09/03/2018 Final [...] 102, LDL 5 (more content not included)... [facility]10-03-2023 Evaluation note* Encounter Date Diagnosis Assessment Notes [...] patient on monthly SBE and yearly mammograms. [facility] Other 09-07-2023 Evaluation note* Encounter Date Diagnosis Assessment Notes Treatment Notes Treatment Clinical Notes Feb, Pernicious anemia (ICD-10 - D51.0) [facility] Other 08-09-2023 Evaluation note* Encounter Date Diagnosis Assessment Notes Treatment Notes Treatment Clinical Notes Jan, Lower extremity edema (ICD-10 - R60.0) Jan, ASHD (arteriosclerotic heart disease) (ICD-10 - I25.10) Jan, HEIN (dyspnea on exertion) (ICD-10 - R06.09) [facility] Other 08-07-2023 Evaluation note* Encounter Date Diagnosis Assessment Notes Treatment Notes Treatment Clinical Notes Jan, Pernicious anemia (ICD-10 - D51.0) [facility] Other 07-25-2023 Evaluation note* Encounter Date Diagnosis Assessment Notes Treatment Notes Treatment Clinical Notes Dec, Lower extremity edema (ICD-10 - R60.0) [facility] Other 07-18-2023 Evaluation note* Encounter Date Diagnosis Assessment Notes Treatment Notes Treatment Clinical Notes Dec, Lower extremity edema (ICD-10 - R60.0) [facility] Other 07-17-2023 Evaluation note* Encounter Date Diagnosis [...] factors Dec, Elevated d-dimer (ICD-10 - R79.89) [facility] Other 07-06-2023 Evaluation note* Encounter Date Diagnosis Assessment Notes Treatment Notes Treatment Clinical Notes Dec, Pernicious anemia (ICD-10 - D51.0) [facility] Other 06-05-2023 Evaluation note* Encounter Date Diagnosis Assessment Notes Treatment Notes Treatment Clinical Notes Nov, Pernicious anemia (ICD-10 - D51.0) [facility] Other 05-04-2023 Evaluation note* Encounter Date Diagnosis Assessment Notes Treatment Notes Treatment Clinical Notes October, Pernicious anemia (ICD-10 - D51.0) [facility] Other 04-19-2023 Evaluation note* Encounter Date Diagnosis [...] mammogram in 6mo SBE monthly f/u Surgery [facility] Other 04-04-2023 Evaluation note* Encounter Date Diagnosis Assessment Notes Treatment Notes Treatment Clinical Notes Sep, Pernicious anemia (ICD-10 - D51.0) [facility] Other 03-09-2023 Evaluation note* Encounter Date Diagnosis Assessment Notes Treatment Notes Treatment Clinical Notes Aug, Local infection of the skin and subcutaneous tissue, unspecified (ICD-10 - L08.9) Aug, Other injury of unspecified body region, initial encounter (ICD-10 - T14.8XXA) [facility] Other 03-09-2023 Evaluation note* Encounter Date Diagnosis Assessment Notes Treatment Notes Treatment Clinical Notes Aug, Cellulitis of female breast (ICD-10 - N61.0) Aug, Breast abscess of female (ICD-10 - N61.1) Warm compresses, continue antibiotic coverage. Schedule breast US Refer to Surgery Aug, Hx of breast cancer (ICD-10 - Z85.3) [facility] Other 03-02-2023 Evaluation note* Encounter Date Diagnosis [...] Hx of breast cancer (ICD-10 - Z85.3) [facility] Other 01-31-2023 Evaluation note* Encounter Date Diagnosis Assessment Notes Treatment Notes Treatment Clinical Notes Jun, Pernicious anemia (ICD-10 - D51.0) [facility] Other 05-11-2022 History of Present illness Narrative* Genny Winters PA-C - 10/19/2021 1:30 PM EDT PATIENT NAME: Nora Lopes [facility] NO.: [id number] ATTENDING PHYSICIAN: Stephen Caballero MD DATE OF SERVICE: October 19, 2021 (Elements copied from Dr. Caballero's note dated October 19, 2020, have been reviewed and updated where appropriate, and all reflect current assessment and medical decision making during today's encounter, October 19, 2021) CC: Follow up Diagnosis: 1. Right breast cancer, invasive lobular carcinoma, HER-2/suresh negative ER and DE strongly positive at 95%, diagnosed 2014 Treatment History: 1. Lumpectomy plus sentinel lymph node biopsy October 28, 2014. Invasive lobular carcinoma, 2.2 cm. 2 sentinel lymph nodes negative for involvement. ER DE 95% positive, HER-2/suresh negative. 2. Right breast [...] Date Arthritis Breast cancer (HCC) Right; T2N0M0; ER/DE+ HER2 COPD (chronic obstructive pulmonary disease) (HCC) [...] 2.2 cm, invasive lobular carcinoma, ER and DE 95% positive, HER-2/suresh negative status post lumpectomy [...] CC: Noble Ferguson MD documented in [facility] encounterS[facility]-14-[facility] Miscellaneous Notes* Telephone Encounter - Stephen Caballero MD - 09/22/2021 1:41 PM EDT Screening is fine. She is 7 years out * Telephone Encounter - Adalgisa Beck RN - 09/22/2021 12:14 PM EDT Patient is scheduled for a screening mammogram on 10/09/21 at [facility]. The diagnosis of malignant neoplasm will not work for a screening mammogram. Patient is 7 years from diagnosis. Would you like to continue with a screening mamm and change the diagnosis to personal history of breast cancer or change the order to a diagnostic mamm? Thanks Sierra Beck RN documented in this encounterSheltering Arms HospitalDischarge summary Author Jim Clay [facility] December 01, 2023 3:07pm Note Date/Time December 01, 2023 3:[address] [facility] [address] [place] [address] Discharge Summary Signed Patient: Nora Parnell MR#: [id number] : 1940 Acct:[id number] Age/Sex: 83 / F Adm Date: 4 Loc: Room: [address] [place] [address]: Jim Clay DO Copies to: DO Jim Jean-Baptiste, ~ Providers Date of Admission: 11/30/23 Date of Discharge: 12/01/23 Discharging Provider: Jim Clay Primary Care Provider: Noble Ferguson Discharge Diagnosis (1) Chest pain: (2) Heart failure with preserved ejection fraction, borderline, class III: (3) Essential hypertension: (4) Lower extremity edema: Final Diagnosis Final Discharge Diagnosis: as above Summary Hospital Course Hospital course: Miss Parnell is a 3-year-old female who presented to hospital last night due to 21st with a chief complaint of exertional dyspnea and chest pain. Troponins were negative on admission, EKG was without any signs of injury ischemia or infarction hide patient does have a significant history positive for CAD status post stents in 2018, she is scheduled for an echocardiogram and stress test thisupcoming week with her faculty head in [place]. She was self admitted to hospital for observation and further workup. The patient's serial troponins were negative, her lipid panel showed LDL of 37. A1c was performed in was 6.4. Echocardiogram was ordered to assess for wall motion abnormalities, it resulted in the afternoon of November 30 and showed ejection fraction of 65 to 70%, left ventricular size and thickness with normal function, trivial aortic stenosis andtrace tricuspid regurg. The patient's medications are reviewed with her, she is currently on lisinopril and Imdur for blood pressure, I did add spironolactone 25 mg daily and low-dose metoprolol 12.5 mg daily. The patient was instructed to see her faculty head this upcoming week for her stress test as already scheduled. Time Spent with Patient Time spent providing/coordinating discharge services (# min): 35 Discharge Plan Discharge Plan Patient Disposition: Home Activity: No Activity Restriction Diet: Low-Fat and Low-Sodium Instructions: Know your Meds Prescriptions: New spironolactone 25 mg Tablet 25 mg PO DAILY Qty: 30 0RF metoprolol succinate 25 mg Tablet Extended Release 24 Hr 12.5 mg PO DAILY 30 Days Qty: 15 0RF Continued temazepam 30 mg capsule 30 mg PO QHS 30 Days Qty: 30 5RF lisinopril 20 mg tablet See Rx Instructions .ROUTE .COMPLEX Qty: 30 11RF Dose Instruction: TAKE ONE TABLET BY MOUTH DAILY Rx Instructions: TAKE ONE TABLET BY MOUTH DAILY atorvastatin 40 mg tablet 40 mg PO DAILY Patient Comments: TAKE ONE TABLET BY MOUTH ONCE DAILY IN THE MORNING isosorbide mononitrate 60 mg tablet extended release 24 hr 60 mg PO QAM Patient Comments: TAKE ONE TABLET BY MOUTH ONCE DAILY levothyroxine 88 mcg tablet 88 mcg PO QAM Patient Comments: TAKE ONE TABLET BY MOUTH ONCE DAILY ON AN EMPTY STOMACH aspirin 81 mg Tablet,Chewable 81 mg PO DAILY calcium carbonate-vitamin D3 [Calcium 600 + D(3)] 600 mg-10 mcg (400 unit) Tablet 1 tab PO DAILY Fiber Gummies 2 gram Tablet,Chewable 2 g PO BID Trelegy Ellipta 200-62.5-25 mcg Blister With Device 1 inh INHALATION DAILY umtnih-iwzdzhmr-pio C-E-herbal 1,250 mcg-50 mg -67.5 mg-15 mg Tablet,Chewable 2 tab PO DAILY.PC.SUPPER doxazosin 2 mg tablet 2 mg PO QHS acetaminophen 500 mg Tablet 500 mg PO Q6H PRN (Reason: Pain) cyanocobalamin (vitamin B-12) 1,000 mcg/mL Solution 1,000 mcg IM QMONTH albuterol sulfate 90 mcg/actuation Hfa Aerosol Inhaler 2 puff INHALATION DIRECTED PRN (Reason: Shortness Of Breath) Follow Up: Noble Ferguson DO [Primary Care Provider] - (Call office on Sunday to schedule follow-up with your Primary Care Provider in 3-5 days. ) Exam Physical Exam Vital Signs: Temp Pulse Resp BP Pulse Ox O2 Del Method 97.4 F L 62 20 147/72 H 95 Room Air 12/01/23 11:55 12/01/23 13:37 12/01/23 13:37 12/01/23 11:55 12/01/23 11:55 12/01/23 11:55 Narrative: General: Awake alert, no acute distress HEENT: head atraumatic, normocephalic, moist mucous membranes Neck: supple no masses, no lymphadenopathy CVS: regular rate and rhythm, no murmurs or gallops Respiratory: clear to auscultation bilaterally, no wheezing or crackles, symmetric expansion GI: soft, nondistended, nontender, positive bowel sounds with no organomegaly Extremity: moves all extremities, no restrictions of movements, no calf tenderness, trace pitting edema in her bilateral feet and ankles Neuro: AOx3, CN II-VII intact. Moves all extremities in all planes of motion. Skin: dry, intact no rashes or lesions Diagnostic Studies Completed and Pending Studies Pending studies at discharge: 11/30/23 17:25 US venous duplex LE BI Routine Labs on day of discharge: 12/01/23 06:44: Corrected WBC 6.4, Uncorrected WBC Count 6.4, RBC 3.81, Hgb 11.7L, Hct 34.9, MCV 91.5, MCH 30.5, MCHC 33.4, RDW 13.4, Plt Count 203, MPV 10.0, Neut % (Auto) 62.6, Lymph % (Auto) 22.3, [place] % (Auto) 11.5, Eos % (Auto) 2.8, Baso % (Auto) 0.8, Nucleat RBC Rel Count 0.1, Neut # (Auto) 4.0, Lymph # (Auto) 1.4, [place] # (Auto) 0.7, Eos # (Auto) 0.2, Baso # (Auto) 0.0, PHA Creatinine Clear 47.06, Sodium 142, Potassium 4.3, Chloride 112 H, Carbon Dioxide 22.8, Anion Gap 11.5, BUN 21, Creatinine 0.84, Est GFR (CKD-EPI) > 60.0, Glucose 100, Estimat Average Glucose 137, Hemoglobin A1c 6.4 H, Calcium 8.7, Magnesium 1.7 L,Troponin I High Sens 9.5, Triglycerides 171 H, Cholesterol 109 L, LDL Cholesterol, Calc 37, VLDL Cholesterol 34, HDL Cholesterol 38, Cholesterol/HDL Ratio 2.9 11/30/23 15:36: Troponin I High Sens 15.3 H Documented By: Jim Clay DO 12/01/23 1503 Signed By: <Electronically signed by Jim Clay DO> 12/01/23 1507 [facility] Work Phone: Evaluation note* Diagnosis Encounter for screening mammogram for malignant neoplasm of breast- Primary Other screening mammogram documented in this encounter [facility] Other Evaluation note* Diagnosis Onset Date Resolution Status History of breast cancer acu te History of radiation exposure acute Nonhealing surgical wound ac [facility] Work Phone: Evaluation note* Diagnosis Onset Date Resolution Status Essential hypertension acute Cerumen impaction noneactive History of breast cancer acu te History of radiation exposure acute Nonhealing surgical wound ac [facility] Work Phone: Evaluation note* Diagnosis Onset Date Resolution Status ASHD (arteriosclerotic heart disease) acute Chronic bronchitis acute Essential hypertension acute History of breast cancer acu te Hypothyroidism acute Lower extremity edema acute Pernicious anemia acute Stage 3a chronic kidney disease acute Chest pain acute Essential hypertension acute [facility] Work Phone: Evaluation note* Diagnosis Onset Date Resolution Status ASHD (arteriosclerotic heart disease) acute Chronic bronchitis acute Essential hypertension acute History of breast cancer acu te Hypothyroidism acute Lower extremity edema acute Pernicious anemia acute Stage 3a chronic kidney disease acute Chest pain acute Essential hypertension acute Lower extremity edema acute [facility] Work Phone: Hisilrv general Narrative - Reported* Type Description Date [...] cell skin cancer Hospitalization History SEE ABOVE [facility] Other Hiszzfw general Narrative - Reported* Type Description Date [...] History SEE ABOVE Hospitalization History SEE ABOVE [facility] Other History [facility] - [facility] Other History general Narrative - Reported* Type [...] cell skin cancer Hospitalization History SEE ABOVE [facility] Other Hiskvzx general Narrative - Reported* Type Description Date [...] ulcera tion 01/2023 Hospitalization History SEE ABOVE [facility] Other History general Narrative - Reported* Type [...] ulcera tion 05/2023 Hospitalization History SEE ABOVE BeDo Other Progress note Author Luis Angel Saucedo [facility] August 28, 2023 9:48am Note Date/Time August 28, 2023 9:[address] [facility] [address] [place] [address] Wound Center Provider Note Signed Patient: Nora Parnell MR#: [id number] : 1940 Acct:[id number] Age/Sex: 83 / F Copies to: MD [...] hematoma. She did see her surgeon in [place] who did her previous surgery. Patient had some punch biopsies performed to rule out cancer which apparently did not show any cancer. She did develop nonhealing wound at this site. She underwent a couple debridements and closures in [place] but each time, the wound did open up and start draining. The last debridement was last month. The surgeon who did her previous surgerieshas since left and the patient did see Dr. Kurtz last week. He did remove some remaining sutures and the patient was then referred here. Patient is currently having dressing changes performed at the [facility] center. She has an open right breast [...] did wound start?: 08/2022 Mode of Arrival/ Hat Blocking Operator: Personal vehicle Lives with:: Alone Appetite Description: Within Normal Limits Who helps w/ dressing change?: [facility] W[facility] Care Dept Why Do You Need Help?: Can't Reach Ulcer Smoking Status: Former smoker Constitutional Constitutional: Denies fever(s) [facility] Medical History Stage 3a chronic kidney disease [...] 0 CM Sq: 0.000 Surrounding Tissue Appearance: [place] Surrounding Tissue Temp: Warm Drainage Amount: None [...] by MD Luis Angel Saucedo> 08/28/23 0948 [facility] Work Phone: Reason for referral (narrative)* Diagnostic Procedure Only (Routine) - Pending Review Specialty Diagnoses / Procedures Referred By Contac t Referred To Contact [facility] Diagnoses Encounter for screening mammogram for malignant neoplasm of breast Procedures KAREN SCREENING SCREENING MAMMOGRAPHY BI 2-VIEW BREAST INC Genny Pitts PA-C [address] [place] [address] [place] [address] [facility] [address] [place] [phone] Referral ID Status Reason Start Date Expiration Date Visits Requested Visits Authorized [id number] Pending Review Auto-Generat ed Referral 10/19/2021 11/18/2022 1 1 [facility] for referral (narrative)* Reason *FU 09/04 Referral for right breast abscess Diagnosis 1 Breast abscess of fe male (N61.1) Referral Organization [facility] Referring Provider First Name Noble Referring Provider Last Name Marty Referring Provider Specialty Internal Me brooks Referred Organization Unknown Facility Referred Provider Checo Reis Referred Provider Specialty Surgery Referral Priority Routine General Notes Kelly Gilbert 01:34:05 PM >received today, notes locked, and referral faxed Kelly Gilbert 08/28/2022 12:05:49 PM >FAXED FIRST ATTEMPT LETTER Clinical Notes . . BeDo Other Summary Purpose Family History No Family [...] radiation exposure Nonhealing surgical wound Chief Complaint b12 b12 B12 shot 4 month follow up Chest Pain Reason for Visit ASHD (arteriosclerot ic heart disease) Chronic bronchitis Essential hypertension History of breast cancer Hypothyroidism Lower extremity edema Pernicious anemia Stage 3a chronic kidney disease Chest pain Essential hypertension Chief Complaint b12 b12 B12 shot 4 month follow up Chest Pain Reason for Visit ASHD (arteriosclerot ic heart disease) Chronic bronchitis Essential hypertension History of breast cancer Hypothyroidism Lower extremity edema Pernicious anemia Stage 3a chronic kidney disease Chest pain Essential hypertension Lower extremity edema Additional Source Comments INFORMATION SOURCE (unrecogn ized section and content) DATE CREATED AUTHOR 09/16/2018 [facility] DATE CREATED AUTHOR AUTHOR'S ORGANIZ ATION 08/23/2022 Javon Bruce [facility] DATE CREATED AUTHOR AUTHOR'S ORGANIZ ATION 11/17/2022 [facility] DATE CREATED AUTHOR AUTHOR'S ORGANIZ ATION 06/27/2023 [facility] DATE CREATED AUTHOR AUTHOR'S ORGANIZ ATION 12/04/2023 [facility] DATE CREATED AUTHOR AUTHOR'S ORGANIZ ATION 12/04/2023 [facility] Source Comments (unrecognize d section and content) In the event this informatio n is protected by the Federal Confidentiality of Alcohol and Drug Abuse Patient Records regulations: The Federal rules restrict any use of the information to criminally investigate or prosecute any alcohol or drug abuse patient[facility] the event this information is protected by the Federal Confidentiality of Alcohol and Drug Abuse Patient Records regulations: The Federal rules restrict any use of the information to criminally investigate or prosecute any alcohol or drug abuse patient[facility] Reason for Visit (unrecogniz ed section and content) Reason Comments Breast Cancer 1 year follow up Reason Comments Orders Care Teams (unrecognized sec tion and content) Team Status: Active Member Role Status Dates Noble Ferguson DO Primary Care Provider Active Team Status: Inactive Member Role Status Dates Noble Ferguson DO Primary Care Provider Active Start: September 06, 2023 End: September 06, 2023 Lesly Dye APRN WEB DESIGN INSTRUCTOR-C Attending Provider Act wyatt Start: September 06, 2023 End: September 06, 2023 Team Status: Inactive Member Role Status Dates Noble Ferguson DO Primary Care Provide r, Attending Provider Active Start: October 08, 2023 End: October 08, 2023 Team Status: Inactive Member Role Status Dates Noble Ferguson DO Primary Care Provide r, Attending Provider Active Start: November 08, 2023 End: November 08, 2023 Team Status: Inactive Member Role Status Dates Noble Ferguson DO Primary Care Provide r, Attending Provider Active Start: November 19, 2023 End: November 19, 2023 Team Status: Active Member Role Status Dates Noble Ferguson DO Primary Care Provide r, Attending Provider Active Start: November 20, 2023 Team Status: Active Member Role Status Dates Nika Fagan DO Emergency Provider Active Start: November 30, 2023 Noble Ferguson DO Primary Care Provider Active Start: November 30, 2023 Jim Clay DO Admit Provider, Atte nding Provider Active Start: November 30, 2023 Antisqueak Chalker Relationship Specialty Start Date End Date Noble Ferguson DO PCP - General Internal Medicine 11/09/14 Antisqueak Chalker Relationship Specialty Start Date End Date Noble Ferguson DO PCP - General Internal Medicine 11/09/14 Team Status: Active Member Role Status Dates Noble Ferguson DO Primary Care Provider Active Luis Angel Saucedo MD Attending Provider Active Team Status: Inactive Member Role Status Dates Noble Ferguson DO Primary Care Provider Active Luis Angel Saucedo MD Attending Provider Active Team Status: Active Member Role Status Dates Noble Ferguson DO Primary Care Provider Active Start: August 06, 2023 RADHA Swan Attending Provider Active Start : August 06, 2023 Team Status: Inactive Member Role Status Dates Noble Ferguson DO Primary Care Provide r, Attending Provider Active Start: August 06, 2023 End: August 06, 2023 Team Status: Inactive Member Role Status Dates Noble Ferguson DO Primary Care Provide r, Attending Provider Active Start: August 10, 2023 End: August 10, 2023 Team Status: Inactive Member Role Status Dates Noble Ferguson DO Primary Care Provider Active Start: August 28, 2023 End: August 28, 2023 Luis Angel Saucedo MD Attending Provider Active Sta rt: August 28, 2023 End: August 28, 2023 Team Status: Inactive Member Role Status Dates Nika Fagan DO Emergency Provider Active Start: November 30, 2023 End: December 01, 2023 Noble Ferguson DO Primary Care Provider Active Start: November 30, 2023 End: December 01, 2023 Jim Clay DO Admit Provider, Atte nding Provider Active Start: November 30, 2023 End: December 01, 2023 Goals (unrecognized section and content) Goals [...] BE BASED ON THE PRIMARY CLINICAL RECORDS. [employer]. provides no warranty or guarantee of the accuracy or completeness of information in this document.
--- NOTE | 2023-12-06 12:53 | PM.STRESS ---
Stress Test Stress Test Allergies Allergy/AdvReac Type Severity Reaction Status Date / Time Penicillins Allergy Hives Verified 03/14/23 12:31 Sulfa (Sulfonamide Allergy Rash Verified 03/14/23 12:31 Antibiotics) Requesting physician: Noble Fergsuon Procedure: Lexiscan Stress Test General Information: Reason for Stress Test: Evaluation of a patient w/ known CAD and recent onset of dyspnea and lower extremity edema. Cardiac History and Risk Factors: 83 y/o with known ASHD, HTN and HLD. Resting 12 - Lead Electrocardiogram: NSR with ventricular rate of 60 bpm. IVCD w/ small inferolateral Q-waves. Stress Test: Protocol: Lexiscan protocol Exercise Capacity: Not applicable Blood Pressure Response: Heart rate and BP increased during infusion. Rhythm: She remained in NSR w/ rare PVC during infusion. ST - Response: There were no ST/T wave changes during infusion. Patient Response: She c/o SSCP and jaw pain during infusion. She required 2 SL NTG for the discomfort to resolve. Interpretation: There was no objective evidence for myocardial ischemia. The patient c/o SSCP and jaw pain during infusion, which required 2 SL NTG to resolve. Cardiolite was injected and images and interpretation are pending
[2023-12-06] MEDS: REGADENOSON 0.4 MG/5 ML SYRINGE 0.400000000000000022 MG IV (13:09)
[2023-12-06] MEDS: NITROGLYCERIN 0.4 MG BOTTLE 0.400000000000000022 MG SL ×2 (13:14→13:15)
== END 2023-12-06 10:58 | disposition home or self-care (01) ==
LOC: NM 10:58
PROVIDERS: PCP Internal Medicine; Visit Provider Internal Medicine Interventional Cardiology
DX: I25.10 Atherosclerotic heart disease of native coronary artery without angina pectoris (principal); Z95.5 Presence of coronary angioplasty implant and graft; R06.02 Shortness of breath
CPT/HCPCS: 78452; 93017; A9500; J2785

== ENCOUNTER 2024-01-14 11:52 | Outpatient (OUT) | payer MEDICARE, SELFPAY ==
[2024-01-14 12:27] LABS: Anion Gap 17.6; BUN Creatinine Ratio 36.2; Calcium 9.2 mg/dL (8.5-10.1); Carbon Dioxide 22.6 mmol/L (21.0-32.0); Chloride 105 mmol/L (98-107); Estimated GFR (African America 27 (>=60); Estimated GFR (Non-African Ame 22 (>=60); Glucose 126 mg/dL (74-106); Potassium 5.2 mmol/L (3.5-5.1); Sodium 140 mmol/L (136-145)
== END 2024-01-14 11:53 | disposition home or self-care (01) ==
LOC: LAB 11:53
PROVIDERS: PCP Internal Medicine; Visit Provider Internal Medicine Interventional Cardiology
DX: I50.32 Chronic diastolic (congestive) heart failure (principal)
CPT/HCPCS: 36415; 80048

== ENCOUNTER 2024-01-17 10:01 | Outpatient (OUT) | payer MEDICARE, SELFPAY ==
--- OUTSIDE RECORDS SUMMARY | 2024-01-17 10:09 | XMS_ITS | CCD ---
Author Organization [facility] Care Team Providers Care Bakery Sales Clerk Name Role Phone PHYSICIAN, DEFAULT Admitting Unavailable [...] Attending Unavailable TAMLYN ., RITU Admitting Unavailable DR NOBLE FERGUSON Primary Care Unavailable DO Noble Ferguson Primary Care Provider [phone] MD Luis Angel Saucedo Attending Provider DO Noble Ferguson Primary Care Provider MD Luis Angel Saucedo Attending Provider DO Nika Fagan Emergency Provider [phone] DO Noble Ferguson Primary Care Provider [phone] DO Jim Clay Admit Provider DO Jim Clay Attending Provider [phone] Luis Angel Saucedo Admitting Unavailable Luis Angel Saucedo Attending Unavailable Noble Ferguson Primary Care Unavailable Luis Angel Saucedo Admitting Unavailable Luis Angel Saucedo Attending Unavailable Noble Ferguson Primary Care Unavailable Jim Clay Admitting Unavailable Jim Clay Attending Unavailable Noble Ferguson Primary Care Unavailable Luis Angel Saucedo Admitting Unavailable Luis Angel Saucedo Attending Unavailable Noble Ferguson Primary Care Unavailable BALA ROBLES Attending Unavailable BALA ROBLES Attending Unavailable STEFANIE GAYTAN Attending Unavailable Allergies Allergy Classification Reported Allergen(s) Allergy Type Date of Onset Reaction(s) Facility penicillAMINE (3 sources) penicillAMINE Drug Allergy 08-10-19 24 [facility] Penicillins (antibiotic) (3 sources) Penicillins Drug Allergy 08-10-19 24 [facility] Sulfonamides (antibiotic) (6 sources) Sulfonamides (Antibiotic) Drug Allergy 08-10-19 24 [facility] Sulfur (3 sources) Sulfur Drug Allergy 08-10-19 24 [facility] (13 sources) Penicillins; 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: [PENICILLINS] Drug allergy (disorder) 04-28-20 14 [facility] (13 sources) Sulfonamides (Antibiotic); 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: [SULFA (SULFONAMIDE ANTIBIOTICS)] Drug allergy (disorder) 06-11-18 94 [facility] Repository (17 sources) Penicillins Drug Allergy 05-15-20 14 Unknown [facility] (17 sources) Sulfonamides (Antibiotic) Drug Allergy 05-15-20 14 Unknown [facility] (20 sources) guaiFENesin Drug Allergy Unknown [facility] Medication Review Other (20 sources) penicillAMINE Drug Allergy 08-10-19 24 Unknown, Hives [facility] (20 sources) Sulfacetamide / Sulfur Drug Allergy Unknown [facility] Medication Review Other (15 sources) Dextromethorphan Drug Allergy 07-22-19 14 Unknown [facility]ones Other (15 sources) guaiFENesin Drug Allergy 07-22-19 14 Unknown [facility] Other (1 source) Penicillin Drug Allergy Unknown [facility] Medication Review Other (15 sources) Sulf-10 Drug allergy Unknown [facility] Medication Review Other (1 source) patient allergy list reviewed by nurse or physicia Propensity to adverse reactions 05-09-20 13 Comment:Done sones Other (1 source) Allergies Reconciled Propensity to adverse reactions Unknown [facility] Medication Review Other (8 sources) Sulfacetamide; 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: [sulfacetamide] Drug Allergy 08-10-19 [facility] (8 sources) Sulfur; 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: [sulfur] Drug Allergy 08-10-19 [facility] (1 source) penicillAMINE Drug Allergy 11-30-19 [facility] Repository (1 source) Penicillins Drug allergy (disorder) 11-30-19 [facility] Repository (1 source) Sulfonamides (Antibiotic) Drug allergy (disorder) 11-30-19 [facility] Repository Medications Current Medications Medication Drug Class(es) Dates [...] 1 puff(s) by in halation once daily Anh Ibarra 200-62.5-25 MCG/ACT 1 puff Inhalation Once a [...] by mouth every 6 hours as needed. [id number] 200 actuat albuterol 0.09 mg/actuat metered dose [...] Platelet Aggregation Inhibitor, Nonsteroidal Anti-inflammatory Drug Start: take 81 mg by mouth once daily Aspirin Active 81 MG PO Daily April 24, 2023 1:00am take 1 tablet by eveline th every twenty-four hours aspirin, enteric coated (ASPIRIN, [...] Take 40 mg by mouth once daily. Hsaoct-Whebeyfy-Xix C-E-Herbal (12 sources) Start: 3 take 2 tablets by mouth once daily Laomjz-Hxbfztvi-Yen C-E-Herbal Active 2 TAB PO Daily after supper April 24, 2023 1:00am Start: 04-24-2023 take 2 tablets by mo nvh once daily Xqbmen-Sktspqmx-Bph C-E-Herbal Active 2 TAB PO Daily after supper April 24, 2023 12:00am bumetanide 0.5 mg oral tablet (4 sources) Loop Diuretic Start: 12-26-2022 take 1 tablet by mouth every twenty-four hours Bumetanide 0.5 MG 1 tablet Orally Once a day for 5 days Dec, Active calcium carbonate 1500 mg / cholecalciferol 0.01 mg oral tablet (12 sources) Vitamin D Start: 04-24-2023 take 1 tablet by mouth once daily Calcium Carbonate-Vitami n D3 (Calcium 600 + D(3)) 600 mg-10 mcg (400 unit) Tablet Active 1 TAB PO Daily April 24, 2023 1:00am Calcium-Vitamin D 500 MG (20 sources) take 1 tablet by eveline twice daily at mealtime Calcium-Vitamin D 500 MG 1 tablet with f ood Orally Twice a day Active doxazosin 2 mg oral tablet (10 sources) alpha-Adrenergic Melanie Start: 11-26-2023 End: 11-30-2023 [...] Active Start: 08-10-2022 take 1 capsule by [facility] twice daily Doxycycline Hyclate 100 MG 1 capsule Orally twice daily for 7 days Aug, Active Fiber (20 sources) Fiber - as direc katia Orally Active Tkymvjhgzip-Pmzccnodb-Weuqeu er (12 sources) Start: 04-24-2023 Mhhqktvbcfy-Ytlbhmqyx-Ntidoa er (Trelegy Ellipta) 200-62.5-25 mcg Blister With Device Active 1 INH INHALATION Daily April 24, 2023 1:00am Start: 04-24-2023 Fluticasone-Um eclidin-Vilanter (Trelegy Ellipta) 200-62.5-25 mcg Blister With Device Active 1 INH INHALATION Daily April 24, 2023 12:00am furosemide 20 mg oral tablet (1 source) Loop Diuretic Start: 01-01-2024 take 20 mg by mouth twice daily Furosemide Active 20 MG PO Twice daily 60 30 January 01, 2024 12:00am inulin 2000 mg chewable tablet (14 sources) Start: 04-24-2023 take 1 tablet by [...] 75 mcg by mouth once daily. lisinopril 30 mg oral tablet (20 sources) Angiotensin Converting Enzyme Inhibitor Start: 12-10-2023 End: 01-03-2024 take 30 mg by mouth once daily Lisinopril Active 30 MG PO Daily January 03, 2024 11:34am Start: 12-10-2023 End: 01-03-2024 take 20 mg by mouth once daily, then take 30 mg by mouth once daily Lisinopril Discontinued 10 MG PO Daily December 10, 2023 12:00am January 03, 2024 11:35am Take w/ 20mg Lisinopril for total of 30mg qd Start: 12-07-2023 End: 12-10-2023 take 20 mg by mouth once daily, then take 30 mg by mouth once daily Lisinopril Discontinued 30 MG PO Daily December 07, 2023 12:30pm December 10, 2023 4:47pm Add to Lisinopril 20mg (total 30mg/day) Start: 08-30-2023 End: 12-07-2023 take 1 tablet by mouth once daily Lisinopril Discontinued 0 .ROUTE .COMPLEX August 30, 2023 3:12pm December 07, 2023 6:33pm TAKE ONE TABLET BY MOUTH DAILY Start: 04-24-2023 End: 08-30-2023 take 20 mg by mouth once daily in the morning Lisinopril Discontinued 20 MG PO Every morning April 24, 2023 1:00am August 30, 2023 3:12pm Comment on above: Take 20 mg by mouth once daily. 24 hr metoprolol succinate 25 mg extended release oral tablet (4 sources) beta-Adrenergic Melanie Start: take 12.5 mg by mouth once daily Metoprolol Succinate Active 12.5 MG PO Daily December 01, 2023 12:00am spironolactone 25 mg oral tablet (4 sources) Aldosterone Antagonist Start: take 25 mg by mouth once daily Spironolactone Active 25 MG PO Daily December 01, 2023 12:00am trelegy ellipta 200-62.5-25 mcg/act aerosol powder breath activated (5 sources) Start: 023 take 1 puff(s) by inhalation once daily Trelegy Ellipta 200-62.5-25 MCG/ACT 1 puff Inhalation Once a day 28 Michelet, 2023 Active vitamin b12 1 mg/ml injectable solution [...] (Vitamin B-12) (Vitamin B-12) 100 mcg/mL Solution (12 sources) Start: 04-24-2023 End: 05-17-2023 Cyanocobalamin (Vitamin [...] at bedtime. torsemide 20 mg oral tablet (6 sources) Loop Diuretic Start: 11-19-19 End: 11-30-19 take 20 mg by mouth once daily in the morning Torsemide Discontinued 20 MG PO Every morning 7 November 19, 2023 12:00am November 30, 2023 3:03pm Triamcinolone (20 sources) Corticosteroid Start: 12-30-19 Start: 12-29-2020 Kenalog -40 mg Dec, 40 mg Start: 11-27-2019 Start: 11-27-2019 Kenalog -40 mg Nov, 40 mg Problems Active Problems Problem Classification Problem Date [...] Complications of surgical procedures or medical care (20 sources) Other complications of procedures, not elsewhere classified, initial encounter; 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: [Non-healing surgical wound] Onset: 11-02-2022 Episodic Congestive heart failure; nonhypertensive (15 sources) Acute exacerbation of chronic congestive heart failure; 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: [Acute on chronic diastolic (congestive) heart failure] Onset: 11-30-2023 11-19-2023 Chronic Coronary atherosclerosis and other heart disease (20 sources) Atherosclerotic heart disease of [place] coronary artery with unstable angina pectoris; 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: [Coronary arteriosclerosis] Onset: 09-03-2018 Chronic Coronary atherosclerosis and other heart disease (2 sources) Presence of coronary angioplasty implant and graft; 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: [Presence of coronary angioplasty implant and graft] Onset: 12-31-2023 Episodic Deficiency and other anemia (2 sources) Anemia due to chronic blood loss; 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: [Iron deficiency anemia secondary to blood loss (chronic)] Onset: 08-30-2015 Chronic Deficiency and other anemia (20 sources) Pernicious anemia; 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: [Vitamin B12 deficiency anemia due to intrinsic factor deficiency] 08-06-2023 Episodic Deficiency and other anemia (18 sources) Vitamin B12 deficiency anemia due to [...] for immunization] Episodic Miscellaneous mental health disorders (10 sources) Primary insomnia; 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: [Primary insomnia] 08-03-2023 Chronic Nonmalignant breast conditions (2 sources) Fibrocystic disease of breast; 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: [Diffuse cystic mastopathy of unspecified breast] Chronic Nonmalignant breast conditions (20 sources) Cellulitis of breast; 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: [Mastitis without abscess] Onset: 08-22-2022 Episodic Nonspecific chest pain (15 sources) Chest pain; 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: [Chest pain, unspecified] Onset: 07-25-2018 11-30-2023 Episodic Nutritional deficiencies (2 sources) Vitamin D deficiency; 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: [Vitamin D deficiency, unspecified] Onset: 11-08-2017 Chronic Osteoarthritis (20 sources) Osteoarthritis of right knee joint; 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: [Unilateral primary osteoarthritis, right knee] Onset: 06-11-1959 Chronic Osteoporosis (2 sources) Primary osteoporosis; 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: [Age-related osteoporosis without current pathological fracture] Chronic Other aftercare (1 source) group home (current) use of aspirin; 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: [[facility] (CURRENT) USE OF ASPIRIN] Onset: 09-03-2018 Episodic Other aftercare (2 sources) Long-term current use of drug therapy; 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: [Other retirement (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] Episodic Other circulatory disease [...] Episodic Other ear and sense organ disorders (4 sources) Impacted cerumen, unspecified ear; 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: [Impacted cerumen] [...] [Localized edema] 11-19-2023 Episodic Residual codes; unclassified (11 sources) Localized edema; 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: [Edema] Onset: 11-30-2023 [...] unspecified; 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: [Insomnia] Episodic Residual codes; unclassified (12 sources) H/O: radiation exposure; 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: [Personal history of irradiation] 04-24-2023 Episodic Residual codes; unclassified (7 sources) Personal history of irradiation; 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: [Personal history of irradiation, presenting hazards to health] 05-15-2023 Episodic Residual codes; unclassified (6 sources) Edema; 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: [Edema, unspecified] 11-19-2023 Episodic Residual codes; unclassified (1 source) Edema, unspecified; 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: [Edema] 11-19-2023 Episodic Screening and history of mental [...] 11-28-2019 Episodic Other aftercare (1 source) Other retirement (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; 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: [[facility] CURRENT DRUG THERAPY] Onset: 01-27-2022 Episodic Other [...] peritoneum; 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: [Peritoneal abscess] Onset: 06-25-2014 Episodic Results Test Name Value Interpretation Reference Range Facility 36on 01-15-2024 36 Spoke with patient a nd told her I faxed BMP order to [facility]. She will have it drawn on she said. Normal [facility] Office Visiton 12-31-2023 Follow-up visit [id number] Clari Parnell 1940 F Date Provider Department Center 12/31/2023 BALA MORGAN Family History Problem Relation Age of Onset No Known Problems Mother No Known Problems Father Family Status - Relation Status Age at Mother Father Level of Service:71005 [place] OFFICE/OUTPATIENT ESTABLISHED MOD MDM 30 MIN Normal [facility] 36on 12-03-2023 36 Patient called to garfield reardon aware that she presented to [facility] over the weekend for chest pain. I have scanned the records into media assistant for your review. You ordered an echo 2 weeks ago when you saw her. They did one while she was inpatient. She is scheduled in a week or so at [facility] for the stress test you ordered. Thanks! Normal [facility] US venous duplex LE BIon US venous duplex LE BI [facility] Main [address] [address] Ultrasound Report Signed Patient: Nora Parnell MR#: [id number] 464 : 1940 Acct:[id number] Age/Sex: 83 / F ADM Date: 11/30/23 Loc: Room: [address] [place] [address] Type: DIS INOo Attending Dr: Jim Clay [...] Joe Moscoso MD12/03/2023 3:59 PM Dictation Location: [facility]- Tech: Betty Mccarty Transcribed By: ALEXANDER 12/03/23 8505 Dictated By: Joe Moscoso MD 12/03/23 6755 Signed By: 12/03/23 6333 Normal [facility] A1C with Estimated Average G gary 12-01-2023 Glucose [Mass/Vol] 137 mg/dL Normal [facility] Comment on above: Result Comment: PERF ORMED BY: [address] [address] PATHOLOGIST PORTER USED [employer] JUDY RASMUSSEN M.D. Performed By: #### L IPID, HS TROP, A1C WTH eA, MG, BMP, CBC ####[address] Automated basophil %Ordered By: Jim Clay on 12-01-2023 Basophils/100 WBC (Bld) 0.8 % . [facility] Comment on above: Performed By: #### L IPID, HS TROP, A1C WTH eA, MG, BMP, CBC ####[place] [id number] [facility] Automated basophil countOrde red By: Jim Clay on 12-01-2023 Basophils (Bld) [#/Vol] 0.0 10*3/uL 0.0-0.2 [facility] Comment on above: Result Comment: PERF ORMED BY: [facility] [address] [facility] [place] [address] PATHOLOGIST PORTER USED [employer] JUDY RASMUSSEN M.D. Performed By: #### L IPID, HS TROP, A1C WTH eA, MG, BMP, CBC ####[address] Automated blood monocyte cou ntOrdered By: Jim Clay on 12-01-2023 Monocytes (Bld) [#/Vol] 0.7 10*3/uL 0.0-0.8 [facility] Comment on above: Performed By: #### L IPID, HS TROP, A1C WTH eA, MG, BMP, CBC ####[place] [id number] [facility] Automated eosinophil %Ordere d By: Jim Clay on 12-01-2023 Eosinophils/100 WBC (Bld) 2.8 % . [facility] Comment on above: Performed By: #### L IPID, HS TROP, A1C WTH eA, MG, BMP, CBC ####[place] [id number] [facility] Automated eosinophil countOr dered By: Jim Clay on 12-01-2023 Eosinophils (Bld) [#/Vol] 0.2 10*3/uL 0.0-0.45 [facility] Comment on above: Performed By: #### L IPID, HS TROP, A1C WTH eA, MG, BMP, CBC ####[place] [id number] Automated monocyte %Ordered By: Jim Clay on 12-01-2023 Monocytes/100 WBC (Bld) 11.5 % . [facility] Comment on above: Performed By: #### L IPID, HS TROP, A1C WTH eA, MG, BMP, CBC ####[address] Automated neutrophil %Ordere d By: Jim Clay on 12-01-2023 Neutrophils/100 WBC (Bld) 62.6 % . [facility] Comment on above: Performed By: #### L IPID, HS TROP, A1C WTH eA, MG, BMP, CBC ####[address] Basic Metabolic Panelon 11-10 Creatinine Clr Calc Pharmacy 47.06 Normal [facility] Comment on above: Performed By: #### L IPID, HS TROP, A1C WTH eA, MG, BMP, CBC ####[address] GFR/1.73 sq M.predicted MDRD (S/P/Bld) [Vol rate/Area] mL/min/{1.73_m2} Normal [facility] Comment on above: Performed By: #### L IPID, HS TROP, A1C WTH eA, MG, BMP, CBC ####[address] Calcium [Mass/volume] in Ser um or PlasmaOrdered By: Jim Clay on 12-01-2023 Calcium [Mass/Vol] 8.7 mg/dL 8.6-10.3 [facility] Comment on above: Performed By: #### L IPID, HS TROP, A1C WTH eA, MG, BMP, CBC ####[address] [place] [address] [facility] Carbon dioxide, total [Moles /volume] in Serum or PlasmaOrdered By: Jim Clay on 12-01-2023 CO2 [Moles/Vol] 22.8 mmol/L 21.0-31.0 [facility] Comment on above: Performed By: #### L IPID, HS TROP, A1C WTH eA, MG, BMP, CBC ####[place] [id number] [place] [id number] [place] Chloride [Moles/volume] in S tyron or PlasmaOrdered By: Jim Clay on 12-01-2023 Chloride [Moles/Vol] 112 mmol/L High 98-107 [facility] Comment on above: Performed By: #### L IPID, HS TROP, A1C WTH eA, MG, BMP, CBC ####[place] [address] [place] [id number] [place] Cholesterol [Mass/volume] in Serum or PlasmaOrdered By: Jim Clay on 12-01-2023 Cholesterol [Mass/Vol] 109 mg/dL Low 140-[address] [facility] Comment on above: Chol less than 200 m g/dl low riskChol 201-239 mg/dl borderline riskChol 240 mg/dl and greater high risk Result Comment: Chol less than 200 mg/dl low risk Chol 201-239 mg/dl borderline risk Chol 240 mg/dl and greater high risk Performed By: #### L IPID, HS TROP, A1C WTH eA, MG, BMP, CBC ####[place] [address] [place] [id number] [place] Cholesterol in LDL Calc [Mas s/Vol]Ordered By: Jim Clay on 12-01-2023 Cholesterol in LDL [Mass/Vol] 37 mg/dL 0-100 [facility] Comment on above: LDL ATP III CLASSIFI CATIONLDL less than 100 mg/dL OptimalLDL 100-129 mg/dL Near or above optimalLDL 130-159 mg/dL Borderline highLDL 160-189 mg/dL HighLDL greater than 189 mg/dL Very high Cholesterol in VLDL Calc [Ma ss/Vol]Ordered By: Jim Clay on 12-01-2023 Cholesterol in VLDL [Mass/Vol] 34 mg/dL [facility] Complete Blood Count Auto Di ffon 12-01-2023 Mean Corpuscular HGB Conc 33.4 g/dL Normal 32.0-35.0 [facility] Comment on above: Performed By: #### L IPID, HS TROP, A1C WTH eA, MG, BMP, CBC ####[facility] [id number] NRBC% 0.1 /100{WBC} Normal 0-0.5 [facility] Comment on above: Performed By: #### L IPID, HS TROP, A1C WTH eA, MG, BMP, CBC ####[facility] [id number] Creatinine [Mass/volume] in Serum or PlasmaOrdered By: Jim Clay on 12-01-2023 Creatinine [Mass/Vol] 0.84 mg/dL 0.60-1.20 [facility] Comment on above: Performed By: #### L IPID, HS TROP, A1C WTH eA, MG, BMP, CBC ####[facility] [id number] ECH echo transthoracicon ECH echo transthoracic [facility] [address] Echocardiogram Signed Patient: Nora Parnell MR#: [id number] 464 : 1940 Acct:[id number] Age/Sex: 83 / F ADM Date: 11/30/23 Loc: Room: [address] [place] [address] Type: ADM INOo Attending Dr: Jim Clay [...] Margarito Hurst MD 12/01/23 1449 Normal [facility] Erythrocyte distribution wid th [Ratio] by Automated countOrdered By: Jim Clay on 12-01-2023 Erythrocyte distribution width (RBC) [Ratio] 13.4 % 11.9-15.3 [facility] Comment on above: Performed By: #### L IPID, HS TROP, A1C WTH eA, MG, BMP, CBC ####[facility] [id number] [place] [address] [facility] Erythrocytes [#/volume] in B lood by Automated countOrdered By: Jim Clay on 12-01-2023 RBC (Bld) [#/Vol] 3.81 10*6/uL 3.60-5.00 [facility] Comment on above: Performed By: #### L IPID, HS TROP, A1C WTH eA, MG, BMP, CBC ####[place] [id number] [place] [address] [facility] Glucose [Mass/volume] in Ser um or PlasmaOrdered By: Jim Clay on 12-01-2023 Glucose [Mass/Vol] 100 mg/dL 70-100 [facility] Comment on above: ADA recommended refe rence rangeRandom Glucose Reference Range is dependent on time and content of last meal. Glucose of more than 200 mg/dL in a nonstressed, ambulatory subject supports the diagnosis of Diabetes Mellitus. Result Comment: [place] om Glucose Reference Range is dependent on time and content of last meal. Glucose of more than 200 mg/dL in a nonstressed, ambulatory subject supports the diagnosis of Diabetes Mellitus. ADA recommended reference range Performed By: #### L IPID, HS TROP, A1C WTH eA, MG, BMP, CBC ####[facility] [id number] [place] [address] [place] Glucose mean value [Mass/vol ume] in Blood Estimated from glycated hemoglobinOrdered By: Jim Clay on 12-01-2023 Average glucose Estimated from glycated hemoglobin (Bld) [Mass/Vol] 137 mg/dL [facility] Hematocrit [Volume Fraction] of Blood by Automated countOrdered By: Jim Clay on 12-01-2023 Hematocrit (Bld) [Volume fraction] 34.9 % 34.0-46.4 [facility] Comment on above: Performed By: #### L IPID, HS TROP, A1C WTH eA, MG, BMP, CBC ####[facility] [id number] Hemoglobin A1c percentageOrd ered By: Jim Clay on 12-01-2023 HbA1c (Bld) [Mass fraction] 6.4 % High 4.3-5.6 [facility] Comment on above: Increased risk for d iabetes: 5.7 - 6.4diabetes: >6.4glycemic control for adults with diabetes: <7.0 Result Comment: Incr eased risk for diabetes: 5.7 - 6.4 diabetes: >6.4 glycemic control for adults with diabetes: <7.0 Performed By: #### L IPID, HS TROP, A1C WTH eA, MG, BMP, CBC ####[place] [id number] Hemoglobin [Mass/volume] in BloodOrdered By: Jim Clay on 12-01-2023 Hemoglobin (Bld) [Mass/Vol] 11.7 g/dL Low 11.8-15.4 [facility] Comment on above: Performed By: #### L IPID, HS TROP, A1C WTH eA, MG, BMP, CBC ####[address] Leukocytes [#/volume] correc katia for nucleated erythrocytes in Blood by Automated counOrdered By: Jim Clay on 12-01-2023 WBC corrected for nucl RBC Auto (Bld) [#/Vol] 6.4 10*3/uL 3.8-11.6 [facility] Leukocytes [#/volume] in Blo od by Automated countOrdered By: Jim Clay on 12-01-2023 WBC (Bld) [#/Vol] 6.4 10*3/uL 3.8-11.6 [facility] Comment on above: Performed By: #### L IPID, HS TROP, A1C WTH eA, MG, BMP, CBC ####[facility] [place] [id number] [facility] Lipid Panelon 12-01-2023 LDL Cholesterol,Calculated 37 mg/dL Normal 0-100 [facility] Comment on above: Result Comment: LDL ATP III CLASSIFICATION LDL less than 100 mg/dL Optimal LDL 100-129 mg/dL Near or above optimal LDL 130-159 mg/dL Borderline high LDL 160-189 mg/dL High LDL greater than 189 mg/dL Very high Performed By: #### L IPID, HS TROP, A1C WTH eA, MG, BMP, CBC ####[place] [id number] Triglyceride w/Reflex 171 mg/dL High 0-149 [facility] Comment on above: Result Comment: TRIG ATP III CLASSIFICATION TRIG less than 150 mg/dL Normal TRIG 150-199 mg/dL Borderline high TRIG 200-500 mg/dL High TRIG greater than 500 mg/dL Very high Standard traceable to the Center for Disease Conrtrol and Prevention (CDC) test method. Performed By: #### L IPID, HS TROP, A1C WTH eA, MG, BMP, CBC ####[place] [id number] VLDL CHOLESTEROL 34 mg/dL Normal [facility] Comment on above: Performed By: #### L IPID, HS TROP, A1C WTH eA, MG, BMP, CBC ####[facility] [place] [id number] [facility] Lymphocytes [#/volume] in Bl ood by Automated countOrdered By: Jim Clay on 12-01-2023 Lymphocytes (Bld) [#/Vol] 1.4 10*3/uL 1.00-4.8 [facility] Comment on above: Performed By: #### L IPID, HS TROP, A1C WTH eA, MG, BMP, CBC ####[place] [id number] [place] [id number] [facility] Lymphocytes/100 leukocytes i n Blood by Automated countOrdered By: Jim Clay on 12-01-2023 Lymphocytes/100 WBC (Bld) 22.3 % . [facility] Comment on above: Performed By: #### L IPID, HS TROP, A1C WTH eA, MG, BMP, CBC ####[place] [id number] [facility] MCH [Entitic mass] by Automa katia countOrdered By: Jim Clay on 12-01-2023 MCH (RBC) [Entitic mass] 30.5 pg 24.7-34.3 [facility] Comment on above: Performed By: #### L IPID, HS TROP, A1C WTH eA, MG, BMP, CBC ####[address] MCHC Auto (RBC) [Mass/Vol]Or dered By: Jim Clay on 12-01-2023 MCHC (RBC) [Mass/Vol] 33.4 g/dL 32.0-35.0 [facility] MCV [Entitic volume] by Auto mated countOrdered By: Jim Clay on 12-01-2023 MCV (RBC) [Entitic vol] 91.5 fL 80-100 [facility] Comment on above: Performed By: #### L IPID, HS TROP, A1C WTH eA, MG, BMP, CBC ####[address] Magnesium [Mass/volume] in S tyron or PlasmaOrdered By: Jim Clay on 12-01-2023 Magnesium [Mass/Vol] 1.7 mg/dL Low 1.9-2.7 [facility] Comment on above: Performed By: #### L IPID, HS TROP, A1C WTH eA, MG, BMP, CBC ####[place] [id number] [place] Neutrophils [#/volume] in Bl ood by Automated countOrdered By: Jim Clay on 12-01-2023 Neutrophils (Bld) [#/Vol] 4.0 10*3/uL 1.8-7.7 [facility] Comment on above: Performed By: #### L IPID, HS TROP, A1C WTH eA, MG, BMP, CBC ####[facility] [id number] No Panel InformationOrdered By: Jim Clay on 12-01-2023 Estimated GFR (CKD-EPI) > 60.0 mL/Min [facility] Creatinine Clearance (Chem 47.06 [facility] Nucleated erythrocytes [Pres ence] in Blood by Automated countOrdered By: Jim Clay on 12-01-2023 Nucleated RBC Auto Ql (Bld) 0.1 /100{WBC} 0-0.5 [facility] Platelet mean volume [Entiti c volume] in Blood by Automated countOrdered By: Jim Clay on 12-01-2023 Platelet mean volume (Bld) [Entitic vol] 10.0 fL 6.3-10.7 [facility] Comment on above: Performed By: #### L IPID, HS TROP, A1C WTH eA, MG, BMP, CBC ####[place] [id number] Platelets [#/volume] in Bloo d by Automated countOrdered By: Jim Clay on 12-01-2023 Platelets (Bld) [#/Vol] 203 10*3/uL 150-450 [facility] Comment on above: Performed By: #### L IPID, HS TROP, A1C WTH eA, MG, BMP, CBC ####[place] [id number] [place] [id number] [facility] Potassium [Moles/volume] in Serum or PlasmaOrdered By: Jim Clay on 12-01-2023 Potassium [Moles/Vol] 4.3 mmol/L 3.5-5.1 [facility] Comment on above: Performed By: #### L IPID, HS TROP, A1C WTH eA, MG, BMP, CBC ####[place] [id number] [place] Serum or plasma anion gap de terminationOrdered By: Jim Clay on 12-01-2023 Anion gap [Moles/Vol] 11.5 mmol/L 6.0-15.[address] [facility] Comment on above: Performed By: #### L IPID, HS TROP, A1C WTH eA, MG, BMP, CBC ####[facility] [id number] Serum or plasma high density lipoprotein (HDL) cholesterol measurementOrdered By: Jim Clay on 12-01-2023 Cholesterol in HDL [Mass/Vol] 38 mg/dL [facility] Comment on above: HDL CHOL ATP-III CLA SSIFICATION Cardiovascular RiskHDL > or equal to 60 mg/dL LOWHDL < 40 mg/dL HIGH Result Comment: HDL CHOL ATP-III CLASSIFICATION Cardiovascular Risk HDL > or equal to 60 mg/dL LOW HDL < 40 mg/dL HIGH Performed By: #### L IPID, HS TROP, A1C WTH eA, MG, BMP, CBC ####[facility] [id number] Serum or plasma total choles terol/high density lipoprotein (HDL) cholesterol mass ratOrdered By: Jim Clay on 12-01-2023 Cholesterol.total/Chol esterol in HDL [Mass ratio] 2.9 {ratio} <5.0 [facility] Comment on above: Result Comment: PERF ORMED BY: [facility] [address] [place] [address] PATHOLOGIST PORTER USED [employer] JUDY RASMUSSEN M.D. Performed By: #### L IPID, HS TROP, A1C WTH eA, MG, BMP, CBC ####[facility] [id number] Sodium [Moles/volume] in Ser um or PlasmaOrdered By: Jim Clay on 12-01-2023 Sodium [Moles/Vol] 142 mmol/L 136-145 [facility] Comment on above: Performed By: #### L IPID, HS TROP, A1C WTH eA, MG, BMP, CBC ####[place] [address] [place] [address] [facility] Triglyceride [Mass/volume] i n Serum or PlasmaOrdered By: Jim Clay on 12-01-2023 Triglyceride [Mass/Vol] 171 mg/dL High 0-149 [facility] Comment on above: TRIG ATP III CLASSIF ICATIONTRIG less than 150 mg/dL NormalTRIG 150-199 mg/dL Borderline highTRIG 200-500 mg/dL High TRIG greater than 500 mg/dL Very highStandard traceable to the Center for Disease Conrtrol and Prevention (CDC) test method. Troponin I High Sensitivityo n 12-01-2023 Troponin I High Sensitivity 9.5 pg/mL Normal 0.0-15.0 [facility] Comment on above: Result Comment: PERF ORMED BY: [facility] [address] [place] [id number] PATHOLOGIST P[employer]TER USED [employer] JUDY RASMUSSEN M.D. Performed By: #### L IPID, HS TROP, A1C WTH eA, MG, BMP, CBC ####[place] [address] [place] [id number] [facility] Troponin I.cardiac [Mass/vol ume] in Serum or Plasma by Detection limit <= 0.01 ng/Ordered By: Jim Clay on 12-01-2023 Troponin I.cardiac DL <= 0.01 ng/mL [Mass/Vol] 9.5 pg/mL 0.0-15.0 [facility] Urea nitrogen [Mass/volume] in Serum or PlasmaOrdered By: Jim Clay on 12-01-2023 Urea nitrogen [Mass/Vol] 21 mg/dL 7-25 [facility] Comment on above: Performed By: #### L IPID, HS TROP, A1C WTH eA, MG, BMP, CBC ####[place] [address] [place] [id number] [facility] Activated partial thrombopla stin time (aPTT) in platelet poor plasma by coagulation aOrdered By: Nika Fagan on 11-30-2023 aPTT Coag (PPP) [Time] 29.1 s 25.1-36.[address] [facility] Comment on above: A hematocrit value g reater than 55% may lead to inaccurate results in coagulation testing. Patients having hematocrit values >55% require a special collection tube for coagulation studies. Please contact the laboratory at [phone] for redraw instructions. Alanine aminotransferase [En zymatic activity/volume] in Serum or PlasmaOrdered By: Nika Fagan on 11-30-2023 ALT [Catalytic activity/Vol] 20 U/L 7-52 [facility] Comment on above: Performed By: #### C BC, BNP, PTT, DDIMER, HS TROP, PT, CMP #### [facility] [address] [place] [address] [place] Albumin [Mass/volume] in Ser um or Plasma by Bromocresol green (BCG) dye binding methoOrdered By: Nika Fagan on 11-30-2023 Albumin BCG dye [Mass/Vol] 4.1 g/dL 3.5-5.7 [facility] Alkaline phosphatase [Enzyma tic activity/volume] in Serum or PlasmaOrdered By: Nika Fagan on 11-30-2023 ALP [Catalytic activity/Vol] 89 U/L 34-104 [facility] Comment on above: Performed By: #### C BC, BNP, PTT, DDIMER, HS TROP, PT, CMP #### [facility] [address] [place] [address] Aspartate aminotransferase [ Enzymatic activity/volume] in Serum or PlasmaOrdered By: Nika Fagan on 11-30-2023 AST [Catalytic activity/Vol] 25 U/L 13-39 [facility] Comment on above: Performed By: #### C BC, BNP, PTT, DDIMER, HS TROP, PT, CMP #### [facility] [address] [place] [address] Automated basophil %Ordered By: Nika Fagan on 11-30-2023 Basophils/100 WBC (Bld) 0.6 % Normal . [facility] Comment on above: Performed By: #### C BC, BNP, PTT, DDIMER, HS TROP, PT, CMP #### [facility] [address] [place] [address] Automated basophil countOrde red By: Nika Fagan on 11-30-2023 Basophils (Bld) [#/Vol] 0.0 10*3/uL Normal 0.0-0.2 [facility] Comment on above: Result Comment: PERF ORMED BY: [place] [address] PATHOLOGIST PORTER USED [employer] JUDY RASMUSSEN M.D. Performed By: #### C BC, BNP, PTT, DDIMER, HS TROP, PT, CMP #### [address] Automated blood monocyte cou ntOrdered By: Nika Fagan on 11-30-2023 Monocytes (Bld) [#/Vol] 0.6 10*3/uL Normal 0.0-0.8 [facility] Comment on above: Performed By: #### C BC, BNP, PTT, DDIMER, HS TROP, PT, CMP #### [address] Automated eosinophil %Ordere d By: Nika Fagan on 11-30-2023 Eosinophils/100 WBC (Bld) 2.8 % Normal . [facility] Comment on above: Performed By: #### C BC, BNP, PTT, DDIMER, HS TROP, PT, CMP #### [address] Automated eosinophil countOr dered By: Nika Fagan on 11-30-2023 Eosinophils (Bld) [#/Vol] 0.2 10*3/uL Normal 0.0-0.45 [facility] Comment on above: Performed By: #### C BC, BNP, PTT, DDIMER, HS TROP, PT, CMP #### [address] Automated monocyte %Ordered By: Nika Fagan on 11-30-2023 Monocytes/100 WBC (Bld) 9.8 % Normal . [facility] Comment on above: Performed By: #### C BC, BNP, PTT, DDIMER, HS TROP, PT, CMP #### [address] Automated neutrophil %Ordere d By: Nika Fagan on 11-30-2023 Neutrophils/100 WBC (Bld) 66.7 % Normal . [facility] Comment on above: Performed By: #### C BC, BNP, PTT, DDIMER, HS TROP, PT, CMP #### [address] BNP ser/plasOrdered By: Mono Fagan on 11-30-2023 Natriuretic peptide B (Bld) [Mass/Vol] 274.0 pg/mL High 5-100 [facility] Comment on above: Result Comment: PERF ORMED BY: [place] [address] PATHOLOGIST PORTER USED [employer] JUDY RASMUSSEN M.D. Performed By: #### C BC, BNP, PTT, DDIMER, HS TROP, PT, CMP #### [facility] [address] [place] [address] Bilirubin.total [Mass/volume ] in Serum or PlasmaOrdered By: Nika Fagan on 11-30-2023 Bilirubin [Mass/Vol] 0.5 mg/dL 0.3-1.0 [facility] Comment on above: Performed By: #### C BC, BNP, PTT, DDIMER, HS TROP, PT, CMP #### [address] angio chest PE protocolon 11-30-2023 CT angio chest PE protocol [facility] [place] [address] [place] [address] CT Scan Report Signed Patient: Nora Parnell MR#: [id number] : 1940 Acct:[id number] Age/Sex: 83 / F ADM Date: 11/30/23 Loc: ER Room: Type: [facility] ER Attending Dr: Copies to: Nika Fagan [...] Mahendra Chandler M.D.11/30/2023 12:06 PM Dictation Location: [place] [address] Transcribed By: [facility] 11/30/23 1206 Dictated By: Mahendra Chandler DO 11/30/23 1200 Signed By: 11/30/23 1206 Normal [facility] Calcium [Mass/volume] in Ser um or PlasmaOrdered By: Nika Fagan on 11-30-2023 Calcium [Mass/Vol] 9.4 mg/dL Normal 8.6-10.3 [facility] Comment on above: Performed By: #### C BC, BNP, PTT, DDIMER, HS TROP, PT, CMP #### [facility] [address] [place] [address] Carbon dioxide, total [Moles /volume] in Serum or PlasmaOrdered By: Nika Fagan on 11-30-2023 CO2 [Moles/Vol] 20.0 mmol/L Low 21.0-31.0 [facility] Comment on above: Performed By: #### C BC, BNP, PTT, DDIMER, HS TROP, PT, CMP #### [address] Chloride [Moles/volume] in S tyron or PlasmaOrdered By: Nika Fagan on 11-30-2023 Chloride [Moles/Vol] 111 mmol/L High 98-107 [facility] Comment on above: Performed By: #### C BC, BNP, PTT, DDIMER, HS TROP, PT, CMP #### [address] Complete Blood Count Auto Di ffon 11-30-2023 Mean Corpuscular HGB Conc 33.0 g/dL Normal 32.0-35.0 [facility] Comment on above: Performed By: #### C BC, BNP, PTT, DDIMER, HS TROP, PT, CMP #### [address] Monocytes/100 WBC (Bld) 16.37 % Normal 0.00-20.00 [facility] Comment on above: Performed By: #### C BC, BNP, PTT, DDIMER, HS TROP, PT, CMP #### [address] NRBC% 0.1 /100{WBC} Normal 0-0.5 [facility] Comment on above: Performed By: #### C BC, BNP, PTT, DDIMER, HS TROP, PT, CMP #### [address] Comprehensive Metabolic Pane [place] 11-30-2023 Albumin [Mass/Vol] 4.1 g/dL Normal 3.5-5.7 [facility] Comment on above: Performed By: #### C BC, BNP, PTT, DDIMER, HS TROP, PT, CMP #### [address] Creatinine Clr Calc Pharmacy 43.90 Normal [facility] Comment on above: Result Comment: PERF ORMED BY: [place] [address] PATHOLOGIST PORTER USED [employer] JIANLAN SUN M.D. Performed By: #### C BC, BNP, PTT, DDIMER, HS TROP, PT, CMP #### [address] GFR/1.73 sq M.predicted MDRD (S/P/Bld) [Vol rate/Area] mL/min/{1.73_m2} Normal [facility] Comment on above: Performed By: #### C BC, BNP, PTT, DDIMER, HS TROP, PT, CMP #### [address] Creatinine [Mass/volume] in Serum or PlasmaOrdered By: Nika Fagan on 11-30-2023 Creatinine [Mass/Vol] 0.91 mg/dL Normal 0.60-1.20 [facility] Comment on above: Performed By: #### C BC, BNP, PTT, DDIMER, HS TROP, PT, CMP #### [address] D-Dimer High Sensitivityon 0 11-30-2023 D-Dimer High Sensitivity 734 ng/mL High 0-243 [facility] Comment on above: Result Comment: [...] coagulation studies. Please contact the laboratory at [phone] for redraw instructions. PERFORMED BY: [place] [address] PATHOLOGIST PORTER USED [employer] JUDY RASMUSSEN M.D. Performed By: #### C BC, BNP, PTT, DDIMER, HS TROP, PT, CMP ####[facility] [id number] ECG 12 lead ECGon 11-30-2023 ECG 12 lead ECG [facility] [place] [address] [place] [address] Electrocardiograph Report Signed Patient: Nora Parnell MR#: [id number] : 1940 Acct:[id number] Age/Sex: 83 / F ADM Date: 11/30/23 Loc: Room: [address] [place] [address] Type: ADM INOo Attending Dr: Jim Clay [...] Lateral leads Confirmed by Kole Damon DO ([id number]) on 11/30/2023 3:08:44 PM Referred By: Electronically Signed By:Kole Damon DO Transcribed By: MUS Signed By Kole Damon DO 4 1509 Normal [facility] Erythrocyte distribution wid th [Ratio] by Automated countOrdered By: Nika Fagan on 11-30-2023 Erythrocyte distribution width (RBC) [Ratio] 13.4 % Normal 11.9-15.3 [facility] Comment on above: Performed By: #### C BC, BNP, PTT, DDIMER, HS TROP, PT, CMP #### [facility] [address] [place] [id number] [facility] Erythrocytes [#/volume] in B lood by Automated countOrdered By: Nika Fagan on 11-30-2023 RBC (Bld) [#/Vol] 4.17 10*6/uL Normal 3.60-5.00 [facility] Comment on above: Performed By: #### C BC, BNP, PTT, DDIMER, HS TROP, PT, CMP #### [facility] [address] [place] [address] [place] Fibrin D-dimer [Presence] in Platelet poor plasma by Latex agglutinationOrdered By: Nika Fagan on 11-30-2023 Fibrin D-dimer LA Ql (PPP) 734 ng/mL High 0-243 [facility] Comment on above: The reference range for [...] coagulation studies. Please contact the laboratory at [phone] for redraw instructions. Glucose [Mass/volume] in Ser um or PlasmaOrdered By: Nika Fagan on 11-30-2023 Glucose [Mass/Vol] 121 mg/dL High 70-100 [facility] Comment on above: ADA recommended refe rence rangeRandom Glucose Reference Range is dependent on time and content of last meal. Glucose of more than 200 mg/dL in a nonstressed, ambulatory subject supports the diagnosis of Diabetes Mellitus. Result Comment: [place] Glucose Reference Range is dependent on time and content of last meal. Glucose of more than 200 mg/dL in a nonstressed, ambulatory subject supports the diagnosis of Diabetes Mellitus. ADA recommended reference range Performed By: #### C BC, BNP, PTT, DDIMER, HS TROP, PT, CMP #### [facility] [address] [place] [id number] [place] Hematocrit [Volume Fraction] of Blood by Automated countOrdered By: Nika Fagan on 11-30-2023 Hematocrit (Bld) [Volume fraction] 37.9 % Normal 34.0-46.4 [facility] Comment on above: Performed By: #### C BC, BNP, PTT, DDIMER, HS TROP, PT, CMP #### [facility] [address] Hemoglobin [Mass/volume] in BloodOrdered By: Nika Fagan on 11-30-2023 Hemoglobin (Bld) [Mass/Vol] 12.5 g/dL Normal 11.8-15.4 [facility] Comment on above: Performed By: #### C BC, BNP, PTT, DDIMER, HS TROP, PT, CMP #### [address] INR in Platelet poor plasma by Coagulation assayOrdered By: Nika Fagan on 11-30-2023 INR Coag (PPP) [Relative time] 1.0 {INR} [facility] Comment on above: INR Therapeutic Rang e [...] PTT, DDIMER, HS TROP, PT, CMP #### [address] Leukocytes [#/volume] correc katia for nucleated erythrocytes in Blood by Automated counOrdered By: Nika Fagan on 11-30-2023 WBC corrected for nucl RBC Auto (Bld) [#/Vol] 6.1 10*3/uL 3.8-11.6 [facility] Leukocytes [#/volume] in Blo od by Automated countOrdered By: Nika Fagan on 11-30-2023 WBC (Bld) [#/Vol] 6.1 10*3/uL Normal 3.8-11.6 [facility] Comment on above: Performed By: #### C BC, BNP, PTT, DDIMER, HS TROP, PT, CMP #### [facility] [address] [place] [address] Lymphocytes [#/volume] in Bl ood by Automated countOrdered By: Nika Fagan on 11-30-2023 Lymphocytes (Bld) [#/Vol] 1.2 10*3/uL Normal 1.00-4.8 [facility] Comment on above: Performed By: #### C BC, BNP, PTT, DDIMER, HS TROP, PT, CMP #### [facility] [address] [place] [address] Lymphocytes/100 leukocytes i n Blood by Automated countOrdered By: Nika Fagan on 11-30-2023 Lymphocytes/100 WBC (Bld) 20.1 % Normal . [facility] Comment on above: Performed By: #### C BC, BNP, PTT, DDIMER, HS TROP, PT, CMP #### [facility] [address] [place] [address] MCH [Entitic mass] by Automa katia countOrdered By: Nika Fagan on 11-30-2023 MCH (RBC) [Entitic mass] 30.0 pg Normal 24.7-34.3 [facility] Comment on above: Performed By: #### C BC, BNP, PTT, DDIMER, HS TROP, PT, CMP #### [facility] [address] [place] [address] MCHC Auto (RBC) [Mass/Vol]Or dered By: Nika Fagan on 11-30-2023 MCHC (RBC) [Mass/Vol] 33.0 g/dL 32.0-35.0 [facility] MCV [Entitic volume] by Auto mated countOrdered By: Nika Fagan on 11-30-2023 MCV (RBC) [Entitic vol] 90.9 fL Normal 80-100 [facility] Comment on above: Performed By: #### C BC, BNP, PTT, DDIMER, HS TROP, PT, CMP #### [facility] [address] Monocyte distribution width [Entitic volume] in Blood by AutomatedOrdered By: Nika Fagan on 11-30-2023 Monocyte distribution width Auto (Bld) [Entitic vol] 16.37 % 0.00-20.00 [facility] Neutrophils [#/volume] in Bl ood by Automated countOrdered By: Nika Fagan on 11-30-2023 Neutrophils (Bld) [#/Vol] 4.1 10*3/uL Normal 1.8-7.7 [facility] Comment on above: Performed By: #### C BC, BNP, PTT, DDIMER, HS TROP, PT, CMP #### [facility] [address] [place] [address] No Panel InformationOrdered By: Nika Fagan on 11-30-2023 Estimated GFR (CKD-EPI) > 60.0 mL/Min [facility] Creatinine Clearance (Chem 43.90 [facility] Nucleated erythrocytes [Pres ence] in Blood by Automated countOrdered By: Nika Fagan on 11-30-2023 Nucleated RBC Auto Ql (Bld) 0.1 /100{WBC} 0-0.5 [facility] Partial Thromboplastin Timeo n 11-30-2023 aPTT Coag (Bld) [Time] 29.1 s Normal 25.1-36.5 [facility] Comment on above: Result Comment: A he matocrit value greater than 55% may lead to inaccurate results in coagulation testing. Patients having hematocrit values >55% require a special collection tube for coagulation studies. Please contact the laboratory at [phone] for redraw instructions. Performed By: #### C BC, BNP, PTT, DDIMER, HS TROP, PT, CMP #### [facility] [address] [place] [address] Platelet mean volume [Entiti c volume] in Blood by Automated countOrdered By: Nika Fagan on 11-30-2023 Platelet mean volume (Bld) [Entitic vol] 9.3 fL Normal 6.3-10.7 [facility] Comment on above: Performed By: #### C BC, BNP, PTT, DDIMER, HS TROP, PT, CMP #### [facility] [address] Platelets [#/volume] in Bloo d by Automated countOrdered By: Nika Fagan on 11-30-2023 Platelets (Bld) [#/Vol] 195 10*3/uL Normal 150-450 [facility] Comment on above: Performed By: #### C BC, BNP, PTT, DDIMER, HS TROP, PT, CMP #### [facility] [address] Potassium [Moles/volume] in Serum or PlasmaOrdered By: Nika Fagan on 11-30-2023 Potassium [Moles/Vol] 4.1 mmol/L Normal 3.5-5.1 [facility] Comment on above: Performed By: #### C BC, BNP, PTT, DDIMER, HS TROP, PT, CMP #### [facility] [address] Protein [Mass/volume] in Ser um or PlasmaOrdered By: Nika Fagan on 11-30-2023 Protein [Mass/Vol] 6.9 g/dL 6.4-8.9 [facility] Comment on above: Performed By: #### C BC, BNP, PTT, DDIMER, HS TROP, PT, CMP #### [facility] [address] Prothrombin time (PT)Ordered By: Nika Fagan on 11-30-2023 PT Coag (PPP) [Time] 11.6 s 9.0-12.9 [facility] Comment on above: A hematocrit value g reater than 55% may lead to inaccurate results in coagulation testing. Patients having hematocrit values >55% require a special collection tube for coagulation studies. Please contact the laboratory at [phone] for redraw instructions. Result Comment: A he matocrit value greater than 55% may lead to inaccurate results in coagulation testing. Patients having hematocrit values >55% require a special collection tube for coagulation studies. Please contact the laboratory at [phone] for redraw instructions. Performed By: #### C BC, BNP, PTT, DDIMER, HS TROP, PT, CMP #### [address] Serum globulin measurement b y calculation (mass/volume)Ordered By: Nika Fagan on 11-30-2023 Globulin (S) [Mass/Vol] 2.8 g/dL [facility] Comment on above: Performed By: #### C BC, BNP, PTT, DDIMER, HS TROP, PT, CMP #### [address] Serum or plasma albumin/glob ulin mass ratioOrdered By: Nika Fagan on 11-30-2023 Albumin/Globulin [Mass ratio] 1.5 {ratio} [facility] Comment on above: Performed By: #### C BC, BNP, PTT, DDIMER, HS TROP, PT, CMP #### [address] Serum or plasma anion gap de terminationOrdered By: Nika Fagan on 11-30-2023 Anion gap [Moles/Vol] 14.1 mmol/L Normal 6.0-15.[address] [facility] Comment on above: Performed By: #### C BC, BNP, PTT, DDIMER, HS TROP, PT, CMP #### [address] Sodium [Moles/volume] in Ser um or PlasmaOrdered By: Nika Fagan on 11-30-2023 Sodium [Moles/Vol] 141 mmol/L Normal 136-145 [facility] Comment on above: Performed By: #### C BC, BNP, PTT, DDIMER, HS TROP, PT, CMP #### [address] Troponin I High Sensitivityo n 11-30-2023 Troponin I High Sensitivity 15.3 pg/mL High 0.0-15.0 [facility] Comment on above: Result Comment: PERF ORMED BY: [place] [address] PATHOLOGIST PORTER USED [employer] JUDY RASMUSSEN M.D. Performed By: #### H S TROP ####[address] Troponin I High Sensitivity 8.5 pg/mL Normal 0.0-15.0 [facility] Comment on above: Result Comment: PERF ORMED BY: [facility] [address] [place] [address] PATHOLOGIST PORTER USED [employer] JUDY RASMUSSEN M.D. Performed By: #### H S TROP ####[address] Troponin I High Sensitivity 6.9 pg/mL Normal 0.0-15.0 [facility] Comment on above: Result Comment: PERF ORMED BY: [place] [address] PATHOLOGIST PORTER USED [employer] JUDY RASMUSSEN M.D. Performed By: #### C BC, BNP, PTT, DDIMER, HS TROP, PT, CMP #### [address] Troponin I.cardiac [Mass/vol ume] in Serum or Plasma by Detection limit <= 0.01 ng/Ordered By: Nika Fagan on 11-30-2023 Troponin I.cardiac DL <= 0.01 ng/mL [Mass/Vol] 8.5 pg/mL 0.0-15.0 [facility] Urea nitrogen [Mass/volume] in Serum or PlasmaOrdered By: Nika Fagan on 11-30-2023 Urea nitrogen [Mass/Vol] 24 mg/dL Normal 7-25 [facility] Comment on above: Performed By: #### C BC, BNP, PTT, DDIMER, HS TROP, PT, CMP #### [address] XR chest 2V*on 11-30-2023 XR chest 2V* [facility] [address] [place] [address] [place] [address] XRay Report Signed Patient: Nora Parnell MR#: [id number] : 1940 Acct:[id number] Age/Sex: 83 / F ADM Date: 11/30/23 Loc: ER Room: Type: [facility] ER Attending Dr: Copies to: Nika Fagan [...] Mathew Morton M.D.11/30/2023 11:41 AM Dictation Location: [place] [address] Transcribed By: [facility] 11/30/23 1141 Dictated By: Mathew Morton II, MD 11/30/23 1139 Signed By: 11/30/23 1141 Normal [facility] Office Visiton 11-23-2023 Follow-up visit [id number] Clari Parnell 1940 F Date Provider Department Center 11/23/2023 Cherelle-BALA ROBLES [facility] Mone [facility] Family History Problem Relation Age of Onset No Known Problems Mother No Known Problems Father Family Status - Relation Status Age at Mother Father Level of Service:[address] [place] OFFICE/OUTPATIENT ESTABLISHED MOD MDM 30 MIN Normal [facility] Basophils Auto (Bld) [#/Vol] on 11-20-2023 Basophils (Bld) [#/Vol] 0.1 10 3/uL 0.0-0.1 [facility] Basophils/100 WBC Auto (Bld) on 11-20-2023 Basophils/100 WBC (Bld) 0.6 % 0.2-2.0 [facility] Eosinophils/100 WBC Auto (Bl d)on 11-20-2023 Eosinophils/100 WBC (Bld) 2.4 % 0.9-7.0 [facility] Erythrocyte distribution wid th Auto (RBC) [Ratio]on 11-20-2023 Erythrocyte distribution width (RBC) [Ratio] 13.2 % 11.0-15.0 [facility] Estimated glomerular filtrat ion rate (GFR) non- Americanon 11-20-2023 GFR/1.73 sq M.predicted among non-blacks MDRD (S/P/Bld) [Vol rate/Area] 46 mL/min/{1.73_m2} Low >=60 [facility] Hematocrit Auto (Bld) [Volum e fraction]on 11-20-2023 Hematocrit (Bld) [Volume fraction] 41.6 % 36.0-48.0 [facility] Hemoglobin [Mass/volume] in Bloodon 11-20-2023 Hemoglobin (Bld) [Mass/Vol] 13.2 g/dL 12.0-16.0 [facility] Laboratory - Chemistry and C hemistry - challengeon 11-20-2023 Calcium [Mass/Vol] 9.4 mg/dL 8.5-10.1 [facility] Chloride [Moles/Vol] 106 mmol/L 98-107 [facility] CO2 [Moles/Vol] 26.3 mmol/L 21.0-32.0 [facility] Creatinine [Mass/Vol] 1.12 mg/dL High 0.55-1.02 [facility] GFR/1.73 sq M.predicted MDRD (S/P/Bld) [Vol rate/Area] 56 mL/min/{1.73_m2} Low >=60 [facility] Glucose [Mass/Vol] 108 mg/dL High 74-106 [facility] Natriuretic peptide B (Bld) [Mass/Vol] 491.0 pg/mL <=1800.0 [facility] Potassium [Moles/Vol] 4.2 mmol/L 3.5-5.1 [facility] Sodium [Moles/Vol] 141 mmol/L 136-145 [facility] TSH Qn 0.205 m[IU]/L Low 0.358-3.74 0 [facility] Urea nitrogen [Mass/Vol] 20.0 mg/dL High 7.0-18.0 [facility] Urea nitrogen/Creatinine [Mass ratio] 17.9 mg/mg [facility] Laboratory - Hematology and Cell countson 11-20-2023 Immature granulocytes/100 WBC (Bld) 0.1 % 0.0-0.5 [facility] Leukocytes [#/volume] correc katia for nucleated erythrocytes in Blood by Automated counon 11-20-2023 WBC corrected for nucl RBC Auto (Bld) [#/Vol] 8.0 10 3/uL 4.0-11.0 [facility] Lymphocytes Auto (Bld) [#/Vo l]on 11-20-2023 Lymphocytes (Bld) [#/Vol] 1.8 10 3/uL 1.2-3.8 [facility] Lymphocytes/100 WBC Auto (Bl d)on 11-20-2023 Lymphocytes/100 WBC (Bld) 22.3 % 20.5-60.0 [facility] MCH Auto (RBC) [Entitic mass ]on 11-20-2023 MCH (RBC) [Entitic mass] 29.3 pg 26.7-34.0 [facility] MCHC Auto (RBC) [Mass/Vol]on 11-20-2023 MCHC (RBC) [Mass/Vol] 31.7 g/dL 29.9-35.2 [facility] MCV Auto (RBC) [Entitic vol] on 11-20-2023 MCV (RBC) [Entitic vol] 92.4 fL 81.0-99.0 [facility] Monocytes Auto (Bld) [#/Vol] on 11-20-2023 Monocytes (Bld) [#/Vol] 0.9 10 3/uL High 0.3-0.8 [facility] Monocytes/100 WBC Auto (Bld) on 11-20-2023 Monocytes/100 WBC (Bld) 11.2 % 1.7-12.0 [facility] Neutrophils Auto (Bld) [#/Vo l]on 11-20-2023 Neutrophils (Bld) [#/Vol] 5.1 10 3/uL 1.4-6.5 [facility] Neutrophils/100 WBC Auto (Bl d)on 11-20-2023 Neutrophils/100 WBC (Bld) 63.4 % 43.0-75.0 [facility] No Panel Informationon 11-19 Eosinophils # (Auto) 0.2 10 3/uL 0.0-0.7 [facility] Immature Granulocyte # (Auto) 0.01 10 3/uL 0.00-0.03 [facility] Platelet mean volume Auto (B ld) [Entitic vol]on 11-20-2023 Platelet mean volume (Bld) [Entitic vol] 11.3 fL 9.5-13.5 [facility] Platelets Auto (Bld) [#/Vol] on 11-20-2023 Platelets (Bld) [#/Vol] 255 10 3/uL 150-450 [facility] RBC Auto (Bld) [#/Vol]on RBC (Bld) [#/Vol] 4.50 10 6/uL 4.20-5.40 [facility] Serum or plasma anion gap de terminationon 11-20-2023 Anion gap [Moles/Vol] 12.9 mmol/L [facility] ANTIMICROBIAL SUSCEPT-ANAERO BEon 05-28-2023 FINAL REPORT SEE NOTE Normal [facility] Comment on above: Order Comment: Speci men Type: MICROBIAL ISOLATE Ordering Facility: [facility] Address: [address] [place] [phone] Result Comment: Prev otella bergensis Organism identified [...] method. RUSTY M Beta-Lactamase Neg Performed By: [employer] [address] [place] [address] Pipe Coverer: Paulino العراقي MD, PhD CLIA Number: [id number] Performed By: #### S USANA #### [facility] CLIA [id number] [address] [place] [address] #### [id number] #### [facility] CLIA [id number] [address] [place] [address] [place] Aerobic Cultureon 05-28-2023 Aerobic Culture Comment Tissue C S R breast Light Normal Skin Aries 2 Days Comment Tissue C S R breast ORGANISM: Prevotella bergensis (O:PREBER) Comments Sent to [facility] for Testing Quantity of Growth Light Growth Antimicrobial susceptibility testing could not be completed due to poor organism growth using the CLSI approved test method. Please see scanned report located in the Laboratory/Scanned Reports section of the EMR. Comment Tissue C S R breast Gram Stain Result No Bacteria Seen PERFORMED BY: [place] [address] PATHOLOGIST PORTER USED [employer] JUDY RASMUSSEN M.D. Normal [facility] Comment on above: Performed By: #### A ERC ####[facility] [address] [place] [address] [facility] Bacterial susceptibility weller el BETTYE (Isol)on 05-28-2023 BLACT Negative Normal [facility] Comment on above: Order Comment: Speci men Type: MICROBIAL ISOLATE Ordering Facility: [facility] Address: [address] [place] [phone] Performed By: #### S USANA #### [facility] CLIA [id number] [address] [place] [address] #### [id number] #### [facility] CLIA [id number] [address] [place] [address] [place] Microorganism identified Cx Nom (Unsp spec) [id number] Abnormal [facility] Comment on above: Order Comment: Speci men Type: MICROBIAL ISOLATE Ordering Facility: [facility] Address: [address] [place], [place] [phone] Result Comment: Prev otella bergensis Susceptibility results have been completed by FRANKLYN. Performed By: #### S USANA #### [facility] CLIA [id number] [address] [place] [address] #### [id number] #### [facility] CLIA [id number] [address] [facility] [place] [address] [place] Basic Metabolic Panelon 12-1 Creatinine Clr Calc Pharmacy 44.56 Normal [facility] Comment on above: Result Comment: PERF ORMED BY: [place] [address] PATHOLOGIST PORTER USED [employer] JUDY RASMUSSEN M.D. Performed By: #### B MP #### [place] [address] [place] GFR/1.73 sq M.predicted MDRD (S/P/Bld) [Vol rate/Area] mL/min/{1.73_m2} Normal [facility] Comment on above: Performed By: #### B MP #### [place] [address] [place] Calcium [Mass/volume] in Ser um or PlasmaOrdered By: Shine Lea on 05-28-2023 Calcium [Mass/Vol] 9.3 mg/dL Normal 8.6-10.3 [facility] Comment on above: Performed By: #### B MP #### [place] [address] [place] Carbon dioxide, total [Moles /volume] in Serum or PlasmaOrdered By: Shine Lea on 05-28-2023 CO2 [Moles/Vol] 22.9 mmol/L Normal 21.0-31.0 [facility] Comment on above: Performed By: #### B MP #### [place] [address] [place] Chloride [Moles/volume] in S tyron or PlasmaOrdered By: Shine Lea on 05-28-2023 Chloride [Moles/Vol] 109 mmol/L High 98-107 [facility] Comment on above: Performed By: #### B MP #### [facility] [address] Creatinine [Mass/volume] in Serum or PlasmaOrdered By: Shine Lea on 05-28-2023 Creatinine [Mass/Vol] 0.89 mg/dL Normal 0.60-1.20 [facility] Comment on above: Performed By: #### B MP #### [facility] [address] Glucose [Mass/volume] in Ser um or PlasmaOrdered By: Shine Lea on 05-28-2023 Glucose [Mass/Vol] 113 mg/dL High 70-100 [facility] Comment on above: ADA recommended refe rence rangeRandom Glucose Reference Range is dependent on time and content of last meal. Glucose of more than 200 mg/dL in a nonstressed, ambulatory subject supports the diagnosis of Diabetes Mellitus. Result Comment: [place] Glucose Reference Range is dependent on time and content of last meal. Glucose of more than 200 mg/dL in a nonstressed, ambulatory subject supports the diagnosis of Diabetes Mellitus. ADA recommended reference range Performed By: #### B MP #### [facility] [address] [place] [id number] [facility] [place] 05-28-2023 L ----- Specimen: [id number] Received: 05/28/23 Status: HAMZAH Barajas Num: [id number] Spec Type: Surgical Subm Dr: Luis Angel Saucedo MD Tissues: A Debridement-Skin/Other Than Skin (POD RT BRST) Procedures: HE, Gross/Micro L3 Age/ Patient Sex Location Account Attending Physician Nora Parnell 83/F [place] [id number] Luis Angel Saucedo MD SPEC NUM: [id number] RECD: 05/28/23 STATUS: HAMZAH BARAJAS NUM: [id number] NEDA: 05/28/23 [facility] DR: Luis Angel Saucedo MD ENTERED: 05/28/23 [facility] DR: DELMIS TYPE: Surgical DEPT: S ENTERED BY: [id number] RECV BY: [id number] ORDERED: HE, Gross/Micro L3 ORDERED: HE, Gross/Micro [...] The microscopic examination confirms the diagnosis. Specimen: [id number] Received: 05/28/23 Status: HAMZAH Barajas Num: [id number] Spec Type: Surgical Subm Dr: Luis Angel Saucedo MD Tissues: A Debridement-Skin/Other Than Skin (POD RT BRST) Procedures: ISIDORO, Gross/Micro L3 Patient: Nora Parnell [id number] (Continued) Specimen: [id number] Received: 05/28/23 (Continued) Signed (signature on file) Zacarias Hunt MD 05/29/23 1548 Specimen: [id number] Received: 05/28/23 Status: HAMZAH Barajas Num: [id number] Spec Type: Surgical Subm Dr: Luis Angel Saucedo MD Tissues: A Debridement-Skin/Other Than Skin (POD RT BRST) Procedures: Jay CHAUDHRY/Savanna L3 Patient: Nora Parnell [id number] (Continued) Specimen: [id number] Received: 05/28/23 (Continued) CPT Codes 03606 Specimen: [id number] Received: 05/28/23 Status: HAMZAH Barajas Num: [id number] Spec Type: Surgical Subm Dr: Luis Angel Saucedo MD Tissues: A Debridement-Skin/Other Than Skin (POD RT BRST) Procedures: HE, Gross/Micro L3 Patient: Nora Parnell [id number] (Continued) Signed (signature on file) Zacarias Hunt MD 05/29/23 1090 Normal [facility] Microorganism identified Cx Nom (Unsp spec)on 05-28-2023 CULTURE, ORGANISM ID [id number] Abnormal [facility] Comment on above: Order Comment: Speci men Type: MICROBIAL ISOLATE Ordering Facility: [facility] Address: [address] [place] [phone] Result Comment: Prev otella bergensis Performed By: #### 1 1475-1 #### [facility] CLIA [id number] [address] [place] [address] [address] [place] No Panel InformationOrdered By: Shine Lea on 05-28-2023 Estimated GFR (CKD-EPI) > 60.0 mL/Min [facility] Creatinine Clearance (Chem 44.56 [facility] Potassium [Moles/volume] in Serum or PlasmaOrdered By: Shine Verduzcoain on 05-28-2023 Potassium [Moles/Vol] 4.1 mmol/L Normal 3.5-5.1 [facility] Comment on above: Performed By: #### B MP #### [facility] [address] Serum or plasma anion gap de terminationOrdered By: Shine Verduzcoain on 05-28-2023 Anion gap [Moles/Vol] 12.2 mmol/L Normal 6.0-15.[address] [facility] Comment on above: Performed By: #### B MP #### [address] Sodium [Moles/volume] in Ser um or PlasmaOrdered By: Shine Leonora on 05-28-2023 Sodium [Moles/Vol] 140 mmol/L Normal 136-145 [facility] Comment on above: Performed By: #### B MP #### [facility] [address] Urea nitrogen [Mass/volume] in Serum or PlasmaOrdered By: Shine Leonora on 05-28-2023 Urea nitrogen [Mass/Vol] 25 mg/dL Normal 7-25 [facility] Comment on above: Performed By: #### B MP #### [facility] [address] Automated basophil %Ordered By: Luis Angel Sauecdo on 05-17-2023 Basophils/100 WBC (Bld) 0.7 % Normal . [facility] Comment on above: Performed By: #### C BC, BMP ####[facility] [id number] Automated basophil countOrde red By: Luis Angel Saucedo on 05-17-2023 Basophils (Bld) [#/Vol] 0.1 10*3/uL Normal 0.0-0.2 [facility] Comment on above: Result Comment: PERF ORMED BY: [facility] [address] [place] [address] PATHOLOGIST PORTER USED [employer] JUDY RASMUSSEN M.D. Performed By: #### C TRACY, BMP ####[address] Automated blood monocyte cou ntOrdered By: Luis Angel Saucedo on 05-17-2023 Monocytes (Bld) [#/Vol] 1.0 10*3/uL High 0.0-0.8 [facility] Comment on above: Performed By: #### C BC, BMP ####[address] Automated eosinophil %Ordere d By: Luis Angel Saucedo on 05-17-2023 Eosinophils/100 WBC (Bld) 1.6 % Normal . [facility] Comment on above: Performed By: #### C TRACY, BMP ####[address] Automated eosinophil countOr dered By: Luis Angel Saucedo on 05-17-2023 Eosinophils (Bld) [#/Vol] 0.2 10*3/uL Normal 0.0-0.45 [facility] Comment on above: Performed By: #### C TRACY, BMP ####[address] Automated monocyte %Ordered By: Luis Angel Saucedo on 05-17-2023 Monocytes/100 WBC (Bld) 10.3 % Normal . [facility] Comment on above: Performed By: #### C TRACY, BMP ####[address] Automated neutrophil %Ordere d By: Luis Angel Saucedo on 05-17-2023 Neutrophils/100 WBC (Bld) 72.8 % Normal . [facility] Comment on above: Performed By: #### C BC, BMP ####[address] Basic Metabolic Panelon 12 Anion gap [Moles/Vol] Not performed Normal 6.0-15.0 [facility] Comment on above: Performed By: #### C BC, BMP ####[place] [address] [place] [address] [facility] GFR/1.73 sq M.predicted MDRD (S/P/Bld) [Vol rate/Area] 55.878 mL/min/{1.73_m2} Normal [facility] Comment on above: Performed By: #### C BC, BMP ####[place] [address] [place] [address] [facility] Potassium Normal 3.5-5.1 [facility] Comment on above: Result Comment: Spec imen hemolyzed, callback initiated if needed Performed By: #### C BC, BMP ####[place] [address] [place] [id number] [facility] Calcium [Mass/volume] in Ser um or PlasmaOrdered By: Luis Angel Saucedo on 05-17-2023 Calcium [Mass/Vol] 9.8 mg/dL Normal 8.6-10.3 [facility] Comment on above: Result Comment: PERF ORMED BY: [facility] [address] [place] [id number] PATHOLOGIST PORTER USED [employer] JUDY RASMUSSEN M.D. Performed By: #### C BC, BMP ####[place] [id number] [facility] Carbon dioxide, total [Moles /volume] in Serum or PlasmaOrdered By: Luis Angel Saucedo on 05-17-2023 CO2 [Moles/Vol] 25.5 mmol/L Normal 21.0-31.0 [facility] Comment on above: Performed By: #### C BC, BMP ####[address] [address] [place] Chloride [Moles/volume] in S tyron or PlasmaOrdered By: Luis Angel Saucedo on 05-17-2023 Chloride [Moles/Vol] 108 mmol/L High 98-107 [facility] Comment on above: Performed By: #### C BC, BMP ####[place] [id number] [facility] Complete Blood Count Auto Di ffon 12-07-2023 Mean Corpuscular HGB Conc 33.3 g/dL Normal 32.0-35.0 [facility] Comment on above: Performed By: #### C BC, BMP ####[facility] NRBC% 0.1 /100{WBC} Normal 0-0.5 [facility] Comment on above: Performed By: #### C TRACY, BMP ####[place] [address] Creatinine [Mass/volume] in Serum or PlasmaOrdered By: Luis Angel Saucedo on 05-17-2023 Creatinine [Mass/Vol] 0.99 mg/dL Normal 0.60-1.20 [facility] Comment on above: Performed By: #### C BC, BMP ####[address] ECG 12 lead ECGon 05-17-2023 ECG 12 lead ECG [facility] [place] [address] [place] [address] Electrocardiograph Report Signed Patient: Nora Parnell MR#: [id number] : 1940 Acct:[id number] Age/Sex: 83 / F ADM Date: 05/17/23 Loc: Room: Type: [facility] Attending Dr: Luis Angel Saucedo MD Ordering [...] change was found Confirmed by ARPAN E[facility]OR[facility], STEFANIE (137) on 05/17/2023 3:19:51 PM Referred By: DIANA Electronically Signed By:STEFANIE RECINOS MD [facility] Transcribed By: ANI Signed By Stefanie Recinos MD, [facility] 05/17/23 1519 Normal [facility] Erythrocyte distribution wid th [Ratio] by Automated countOrdered By: Luis Angel Saucedo on 05-17-2023 Erythrocyte distribution width (RBC) [Ratio] 14.3 % Normal 11.9-15.3 [facility] Comment on above: Performed By: #### C BC, BMP ####[place] [address] [place] [id number] [facility] Erythrocytes [#/volume] in B lood by Automated countOrdered By: Luis Angel Saucedo on 05-17-2023 RBC (Bld) [#/Vol] 4.16 10*6/uL Normal 3.60-5.00 [facility] Comment on above: Performed By: #### C TRACY, BMP ####[address] [facility] Glucose [Mass/volume] in Ser um or PlasmaOrdered By: Luis Angel Saucedo on 05-17-2023 Glucose [Mass/Vol] 101 mg/dL High 70-100 [facility] Comment on above: ADA recommended refe rence rangeRandom Glucose Reference Range is dependent on time and content of last meal. Glucose of more than 200 mg/dL in a nonstressed, ambulatory subject supports the diagnosis of Diabetes Mellitus. Result Comment: [place] Glucose Reference Range is dependent on time and content of last meal. Glucose of more than 200 mg/dL in a nonstressed, ambulatory subject supports the diagnosis of Diabetes Mellitus. ADA recommended reference range Performed By: #### C BC, BMP ####[address] [facility] Hematocrit [Volume Fraction] of Blood by Automated countOrdered By: Luis Angel Saucedo on 05-17-2023 Hematocrit (Bld) [Volume fraction] 36.6 % Normal 34.0-46.4 [facility] Comment on above: Performed By: #### C BC, BMP ####[address] [facility] Hemoglobin [Mass/volume] in BloodOrdered By: Luis Angel Saucedo on 05-17-2023 Hemoglobin (Bld) [Mass/Vol] 12.2 g/dL Normal 11.8-15.4 [facility] Comment on above: Performed By: #### C TRACY, BMP ####[address] Leukocytes [#/volume] correc katia for nucleated erythrocytes in Blood by Automated counOrdered By: Luis Angel Saucedo on 05-17-2023 WBC corrected for nucl RBC Auto (Bld) [#/Vol] 10.1 10*3/uL 3.8-11.6 [facility] Leukocytes [#/volume] in Blo od by Automated countOrdered By: Luis Angel Saucedo on 05-17-2023 WBC (Bld) [#/Vol] 10.1 10*3/uL Normal 3.8-11.6 [facility] Comment on above: Performed By: #### C TRACY, BMP ####[address] Lymphocytes [#/volume] in Bl ood by Automated countOrdered By: Luis Angel Saucedo on 05-17-2023 Lymphocytes (Bld) [#/Vol] 1.5 10*3/uL Normal 1.00-4.8 [facility] Comment on above: Performed By: #### C TRACY, BMP ####[address] Lymphocytes/100 leukocytes i n Blood by Automated countOrdered By: Luis Angel Saucedo on 05-17-2023 Lymphocytes/100 WBC (Bld) 14.6 % Normal . [facility] Comment on above: Performed By: #### C TRACY, BMP ####[place] [id number] [facility] MCH [Entitic mass] by Automa katia countOrdered By: Luis Angel Saucedo on 05-17-2023 MCH (RBC) [Entitic mass] 29.4 pg Normal 24.7-34.3 [facility] Comment on above: Performed By: #### C TRACY, BMP ####[place] [address] MCHC Auto (RBC) [Mass/Vol]Or dered By: Luis Angel Saucedo on 05-17-2023 MCHC (RBC) [Mass/Vol] 33.3 g/dL 32.0-35.0 [facility] MCV [Entitic volume] by Auto mated countOrdered By: Luis Angel Saucedo on 05-17-2023 MCV (RBC) [Entitic vol] 88.1 fL Normal 80-100 [facility] Comment on above: Performed By: #### C TRACY, BMP ####[address] Neutrophils [#/volume] in Bl ood by Automated countOrdered By: Luis Angel Saucedo on 05-17-2023 Neutrophils (Bld) [#/Vol] 7.3 10*3/uL Normal 1.8-7.7 [facility] Comment on above: Performed By: #### C TRACY, BMP ####[address] No Panel InformationOrdered By: Luis Angel Saucedo on 05-17-2023 Estimated GFR (CKD-EPI) 55.878 mL/Min [facility] Creatinine Clearance (Chem N/A [facility] Nucleated erythrocytes [Pres ence] in Blood by Automated countOrdered By: Luis Angel Saucedo on 05-17-2023 Nucleated RBC Auto Ql (Bld) 0.1 /100{WBC} 0-0.5 [facility] Platelet mean volume [Entiti c volume] in Blood by Automated countOrdered By: Luis Angel Saucedo on 05-17-2023 Platelet mean volume (Bld) [Entitic vol] 10.6 fL Normal 6.3-10.7 [facility] Comment on above: Performed By: #### C TRACY, BMP ####[address] Platelets [#/volume] in Bloo d by Automated countOrdered By: Luis Angel Saucedo on 05-17-2023 Platelets (Bld) [#/Vol] 228 10*3/uL Normal 150-450 [facility] Comment on above: Performed By: #### C TRACY, BMP ####[facility] [place] [address] [facility] Potassium [Moles/volume] in Serum or PlasmaOrdered By: Luis Angel Saucedo on 05-17-2023 Potassium [Moles/Vol] See comment 3.5-5.[address] [facility] Comment on above: Specimen hemolyzed, callback initiated if needed Serum or plasma anion gap de terminationOrdered By: Luis Angel Saucedo on 05-17-2023 Anion gap [Moles/Vol] TNP [facility] Comment on above: Test not performed Sodium [Moles/volume] in Ser um or PlasmaOrdered By: Luis Angel Saucedo on 05-17-2023 Sodium [Moles/Vol] 141 mmol/L Normal 136-145 [facility] Comment on above: Performed By: #### C TRACY, BMP ####[id number] [place] [address] [facility] Urea nitrogen [Mass/volume] in Serum or PlasmaOrdered By: Luis Angel Saucedo on 05-17-2023 Urea nitrogen [Mass/Vol] 19 mg/dL Normal 7-25 [facility] Comment on above: Performed By: #### C TRACY, BMP ####[address] [place] [address] [facility] Office Visiton 04-11-2023 Follow-up visit [id number] Clari Parnell 1940 F Date Provider Department Center 04/11/2023 STEFANIE RUIZ CARD [facility] Family History Problem Relation Age of Onset No Known Problems Mother No Known Problems Father Family Status - Relation Status Age at Mother Father Level of Service:12518 [place] OFFICE/OUTPATIENT ESTABLISHED LOW MDM 20-29 MIN Reason for Visit and Comments: Coronary Artery Disease [187] Hypertension [105837] Normal [facility] Physician Referralon 023 Physician Referral [id number] Normal [facility] CULTURE WOUNDon 08-17-2022 CULTURE WOUND Culture Observations : LIGHT GROWTH OF NORMAL SKIN ARIES. Culture Observations: NO GROWTH OF ANAEROBES AT 72 HOURS. Normal [facility] Comment on above: Performed By: #### W OUNDCX #### [facility] [address] [address] [address] Michael Hunt MG MAMM DIAGNOSTIC 3D GERARDO CA Don 08-17-2022 MG MAMM DIAGNOSTIC 3D GERARDO CAD Patient: NORA PARNELL Exam Date: 08/17/2022 : 1940 Gender:F Ordering : DR NOBLE FERGUSON D.O. Admission #: [id number] Family : Order #: [id number] CLICK HERE TO VIEW EXAM RADIOLOGY REPORT [...] liver/uterine cancer at age 62. LOCATION: [facility] BREAST COMPOSITION: Scattered areas fibroglandular density. FINDINGS: [...] MD on 08/17/2022 at 14:32 Normal [facility] US BREAST RIGHT LIMITEDon US BREAST RIGHT LIMITED Patient: NORA PARNELL Exam Date: 08/17/2022 : 1940 Gender:F Ordering : DR NOBLE FERGUSON D.O. Admission #: [id number] Family : Order #: [id number] CLICK HERE TO VIEW EXAM RADIOLOGY REPORT [...] liver/uterine cancer at age 62. LOCATION: [facility] BREAST COMPOSITION: Scattered areas fibroglandular density. FINDINGS: [...] MD on 08/17/2022 at 14:32 Normal [facility] BREAST RIGHT LIMITED sones Other CBC AUTO DIFFon 01-26-2022 BASO # 0.1 103/ul Normal 0.0-0.1 [facility] Comment on above: Performed By: #### C BC #### [facility] [address] [place] [address] Dr. Michael Hunt Basophils/100 WBC (Bld) 0.4 % Normal 0.2-2.0 [facility] Comment on above: Performed By: #### C BC #### [facility] [address] [place] [address] Dr. Michael Hunt EO # 0.3 103/ul Normal 0.0-0.7 [facility] Comment on above: Performed By: #### C BC #### [facility] [address] [place] [address] Dr. Michael Hunt Eosinophils/100 WBC (Bld) 2.5 % Normal 0.9-7.0 [facility] Comment on above: Performed By: #### C BC #### [facility] [address] [place] [address] Dr. Michael Hunt Erythrocyte distribution width (RBC) [Ratio] 14.9 % Normal 11.0-15.0 [facility] Comment on above: Performed By: #### C BC #### [facility] [address] [place] [address] Dr. Michael Hunt Hematocrit (Bld) [Volume fraction] 37.0 % Normal 36.0-48.0 [facility] Comment on above: Performed By: #### C BC #### [facility] [address] [place], [place] [address] Dr. Michael Hunt Hemoglobin (Bld) [Mass/Vol] 11.9 g/dL Critically low 12.0-16.0 [facility] Comment on above: Performed By: #### C BC #### [facility] [address] [place] [address] Dr. Michael Hunt IG # 0.06 10e3/ul Critically high 0.00-0.03 [facility] Comment on above: Performed By: #### C BC #### [facility] [address] [place] [address] Dr. Michael Hunt IG % 0.5 % Normal 0.0-0.5 [facility] Comment on above: Performed By: #### C BC #### [facility] [address] [place] [address] Dr. Michael Hunt LYMPH # 1.7 103/ul Normal 1.2-3.8 [facility] Comment on above: Performed By: #### C BC #### [facility] [address] [place] [address] Dr. Michael Hunt Lymphocytes/100 WBC (Bld) 15.5 % Critically low 20.5-60.0 [facility] Comment on above: Performed By: #### C BC #### [facility] [address] [place] [address] Dr. Michael Hunt MANUAL DIFF REQ NO Normal [facility] Comment on above: Performed By: #### C BC #### [facility] [address] [place] [address] Dr. Michael Hunt MCH (RBC) [Entitic mass] 29.2 pg Normal 26.7-34.0 [facility] Comment on above: Performed By: #### C BC #### [facility] [address] [place] [address] Dr. Michael Hunt MCHC (RBC) [Mass/Vol] 32.2 g/dL Normal 29.9-35.2 [facility] Comment on above: Performed By: #### C BC #### [facility] [address] [place] [address] Dr. Michael Hunt MCV (RBC) [Entitic vol] 90.9 fL Normal 81.0-99.0 [facility] Comment on above: Performed By: #### C BC #### [facility] [address] [place] [address] Dr. Michael Hunt MONO # 1.2 103/ul Critically high 0.3-0.8 [facility] Comment on above: Performed By: #### C BC #### [facility] [address] [place] [address] Dr. Michael Hunt Monocytes/100 WBC (Bld) 11.0 % Normal 1.7-12.0 [facility] Comment on above: Performed By: #### C BC #### [facility] [address] [place] [address] Dr. Michael Hunt NEUT # 7.8 103/ul Critically high 1.4-6.5 [facility] Comment on above: Performed By: #### C BC #### [facility] [address] [place] [address] Dr. Michael Hunt Neutrophils/100 WBC (Bld) 70.1 % Normal 43.0-75.0 [facility] Comment on above: Performed By: #### C BC #### [facility] [address] [place] [address] Dr. Michael Hunt Platelet mean volume (Bld) [Entitic vol] 10.2 fL Normal 9.5-13.5 [facility] Comment on above: Performed By: #### C BC #### [facility] [address] [place] [address] Dr. Michael Hunt PLT 245 103/ul Normal 150-450 [facility] Comment on above: Performed By: #### C BC #### [facility] [address] [place] [address] Dr. Michael Hunt RBC 4.07 106/ul Critically low 4.20-5.40 [facility] Comment on above: Performed By: #### C BC #### [facility] [address] [place] [address] Dr. Michael Hunt WBC 11.1 103/ul Critically high 4.0-11.0 [facility] Comment on above: Performed By: #### C BC #### [facility] [address] [place] [address] Dr. Michael Hunt LIPID PROFILEon 01-26-2022 CHOL-HDL RATIO NORM SEE BELOW Normal [facility] Comment on above: Result Comment: 3.3 - 4.4 LOW RISK 4.4 - 7.1 AVERAGE RISK 7.1 - 11.0 MODERATE RISK >11.0 HIGH RISK Performed By: #### L IPID, ALT, TSH, BMP #### [facility] [address] [place] [address] Dr. Michael Hunt Cholesterol [Mass/Vol] 132 mg/dL Normal <=200 [facility] Comment on above: Performed By: #### L IPID, ALT, TSH, BMP #### [facility] [address] [address] [address] Michael Hunt Cholesterol in HDL [Mass/Vol] 53 mg/dL Normal 40-60 [facility] Comment on above: Performed By: #### L IPID, ALT, TSH, BMP #### [facility] [address] [place] [address] Dr. Michael Hunt Cholesterol in LDL [Mass/Vol] 43.0 mg/dL Normal [facility] Comment on above: Performed By: #### L IPID, ALT, TSH, BMP #### [facility] [address] [place] [address] Dr. Michael Hunt Cholesterol.total/Chol esterol in HDL [Mass ratio] 2.5 {ratio} Normal [facility] Comment on above: Performed By: #### L IPID, ALT, TSH, BMP #### [facility] [address] [address] [address] Michael Hunt HDL NORMAL > or = 60 mg/dl - LO W CARDIOVASCULAR RISK <40 mg/dl - HIGH CARDIOVASCULAR RISK Normal [facility] Comment on above: Performed By: #### L IPID, ALT, TSH, BMP #### [facility] [address] [place] [address] Dr. Michael Hunt LDL CALC NORMAL SEE BELOW Normal [facility] Comment on above: Result Comment: <100 mg/dl OPTIMAL 100 - 129 mg/dl NEAR OR ABOVE OPTIMAL 130 - 159 mg/dl BORDERLINE HIGH 160 - 189 mg/dl HIGH >190 mg/dl VERY HIGH Performed By: #### L IPID, ALT, TSH, BMP #### [facility] [address] [address] [address] Michael Hunt Triglyceride [Mass/Vol] 180 mg/dL Critically high <=150 [facility] Comment on above: Performed By: #### L IPID, ALT, TSH, BMP #### [facility] [address] [address] [address] Michael Hunt VLDL CALC 36.0 mg/dL Normal [facility] Comment on above: Performed By: #### L IPID, ALT, TSH, BMP #### [facility] [address] [address] [address] Michael Hunt PROF CHEM 8 (BAS METB)on Anion gap [Moles/Vol] 13.2 mmol/L Normal [facility] Comment on above: Performed By: #### L IPID, ALT, TSH, BMP #### [facility] [address] [place] [address] Dr. Michael Hunt Calcium [Mass/Vol] 9.3 mg/dL Normal 8.5-10.1 [facility] Comment on above: Performed By: #### L IPID, ALT, TSH, BMP #### [facility] [address] [address] [address] Michael Hunt Chloride [Moles/Vol] 104 mmol/L Normal 98-107 [facility] Comment on above: Performed By: #### L IPID, ALT, TSH, BMP #### [facility] [address] [address] [address] Michael Hunt CO2 [Moles/Vol] 24.7 mmol/L Normal 21.0-32.0 [facility] Comment on above: Performed By: #### L IPID, ALT, TSH, BMP #### [facility] [address] [place] [address] Dr. Michael Hunt Creatinine [Mass/Vol] 1.20 mg/dL Critically high 0.55-1.02 [facility] Comment on above: Performed By: #### L IPID, ALT, TSH, BMP #### [facility] [address] [place] [address] Dr. Michael Hunt EGFR-AF FAROESE 52 mL/min/1.73m2 Critically low >=60 [facility] Comment on above: Performed By: #### L IPID, ALT, TSH, BMP #### [facility] [address] [place] [address] Dr. Michael Hunt EGFR-NON AF FAROESE 43 mL/min/1.73m2 Critically low >=60 [facility] Comment on above: Performed By: #### L IPID, ALT, TSH, BMP #### [facility] [address] [place] [address] Dr. Michael Hunt Glucose [Mass/Vol] 99 mg/dL Normal 74-106 [facility] Comment on above: Performed By: #### L IPID, ALT, TSH, BMP #### [facility] [address] [place] [address] Dr. Michael Hunt Potassium [Moles/Vol] 4.9 mmol/L Normal 3.5-5.1 [facility] Comment on above: Performed By: #### L IPID, ALT, TSH, BMP #### [facility] [address] [place] [address] Dr. Michael Hunt Sodium [Moles/Vol] 137 mmol/L Normal 136-145 [facility] Comment on above: Performed By: #### L IPID, ALT, TSH, BMP #### [facility] [address] [place] [address] Dr. Michael Hunt Urea nitrogen [Mass/Vol] 30.0 mg/dL Critically high 7.0-18.0 [facility] Comment on above: Performed By: #### L IPID, ALT, TSH, BMP #### [facility] [address] [place] [address] Dr. Michael Hunt Urea nitrogen/Creatinine [Mass ratio] 25.0 mg/mg Normal [facility] Comment on above: Performed By: #### L IPID, ALT, TSH, BMP #### [facility] [address] [place] [address] Dr. Michael Hunt [facility] 01-26-2022 ALT [Catalytic activity/Vol] 54 U/L Normal 14-59 [facility] Comment on above: Performed By: #### L IPID, ALT, TSH, BMP #### [facility] [address] [place], [place] [address] Dr. Michael Hunt TSHon 01-26-2022 TSH 5.136 uIU/mL Critically high 0.358-3.74 0 [facility] Comment on above: Performed By: #### L IPID, ALT, TSH, BMP #### [facility] [address] [place], [place] [address] Dr. Michael Hunt Cardiovascular Lab Reporton 09-03-2018 Cardiovascular Lab Report [facility] Patient Name: [facility] [place]ne MR #: [id number] Department of Physician: Bala Robles M.D. Division of Service Date: 09/03/2018 Cardiology Birthdate: 1940 Adult Cardiovascular Room #: [address] [id number] Cardiovascular Laboratory Report INDICATION: The patient is [...] informed consent. She was brought to the senior cytogenetics laboratory director in a fasting state. The right groin area was prepped and draped in usual fashion. Using micropuncture technique, the right common femoral artery was accessed. The inner cannula was advanced and right femoral angiography was performed followed by upsizing to a 6-Egyptian x 11 cm sheath. Access was also obtained using the same technique in the right common femoral vein and a 6-Egyptian x 11 cm sheath was placed. A 6-Egyptian Lee catheter was used for right heart catheterization with measurement of pressures and calculation of cardiac output using the estimated Patricia method. Lee catheter was removed. Bilateral selective coronary angiography was then performed using 6-Egyptian JL4 and JR4 diagnostic catheters. Catheters were removed. Heparin was administered intravenously and therapeutic ACT confirmed during the rest of the procedure and additional heparin given as needed. A 6-Egyptian JR4 guiding catheter was advanced and used [...] atmospheres and post dilated using NC [employer] [place] 3.0 x 8 mm noncompliant balloon inflated [...] Robles M.D. Date Trans: 09/03/2018 02:15 P/jaswinder [id number] Normal [facility] Vital Signs Date Time Vital Sign Value Performing Clinician Facility 12-07-2023 11:49-0400 Body height 154.94 cm DO Nika Bux180 Work Phone: [facility] 12-07-2023 11:49-0400 Body mass index (BMI) [Ratio] 34.2 kg/m2 DO Nika Bux180 Work Phone: [facility] 12-07-2023 11:49-0400 Body weight 82.15 kg DO Nika Bux180 Work Phone: [facility] 12-07-2023 11:49-0400 Diastolic blood pressure 72 mm[Hg] DO Nika Brown Work Phone: [facility] 12-07-2023 11:49-0400 Heart rate 69 /min DO Nika Brown Work Phone: [facility] 12-07-2023 11:49-0400 Respiratory rate 20 /min DO Nika Brown Work Phone: [facility] 12-07-2023 11:49-0400 SaO2% (BldA) [Mass fraction] 98 % DO Nika Brown Work Phone: [facility] 12-07-2023 11:49-0400 Systolic blood pressure 150 mm[Hg] DO Nika Brown Work Phone: [facility] 12-01-2023 15:17-0400 Diastolic blood pressure 72 mm[Hg] DO Nika Brown Work Phone: [facility] 12-01-2023 15:17-0400 Heart rate 60 /min DO Nika Brown Work Phone: [facility] 12-01-2023 15:17-0400 Respiratory rate 20 /min DO Nika Brown Work Phone: [facility] 12-01-2023 15:17-0400 SaO2% (BldA) [Mass fraction] 96 % DO Nika Brown Work Phone: [facility] 12-01-2023 15:17-0400 Systolic blood pressure 137 mm[Hg] DO Nika Brown Work Phone: [facility] 12-01-2023 11:55-0400 Body temperature 97.4 [degF] DO Nika Brown Work Phone: [facility] 12-01-2023 06:08-0400 Body weight 80.5 kg DO Nika Brown Work Phone: [facility] 11-30-2023 15:41-0400 Body height 154.94 cm DO Nika Brown Work Phone: [facility] 11-30-2023 14:47-0400 Diastolic blood pressure 76 mm[Hg] DO Nika Brown Work Phone: [facility] 11-30-2023 14:47-0400 Heart rate 65 /min DO Nika Brown Work Phone: [facility] 11-30-2023 14:47-0400 Respiratory rate 16 /min DO Nika Brown Work Phone: [facility] 11-30-2023 14:47-0400 SaO2% (BldA) [Mass fraction] 97 % DO Nika Brown Work Phone: [facility] 11-30-2023 14:47-0400 Systolic blood pressure 191 mm[Hg] DO Nika Brown Work Phone: [facility] 11-30-2023 10:13-0400 Body height 154.94 cm DO Nika Brown Work Phone: [facility] 11-30-2023 10:13-0400 Body weight 82.1 kg DO Nika Brown Work Phone: [facility] 11-30-2023 10:12-0400 Body temperature 98.6 [degF] DO Nika Brown Work Phone: [facility] 11-19-2023 11:24-0400 Body height 152.4 cm DO Noble Ball Work Phone: [facility] 11-19-2023 11:24-0400 Body mass index (BMI) [Ratio] 35.9 kg/m2 DO Noble Ball Work Phone: [facility] 11-19-2023 11:24-0400 Body weight 83.51 kg DO Noble Ball Work Phone: [facility] 11-19-2023 11:24-0400 Diastolic blood pressure 76 mm[Hg] DO Noble Ball Work Phone: [facility] 11-19-2023 11:24-0400 Heart rate 67 /min DO Noble Ball Work Phone: [facility] 11-19-2023 11:24-0400 Respiratory rate 12 /min DO Noble Ball Work Phone: [facility] 11-19-2023 11:24-0400 SaO2% (BldA) [Mass fraction] 97 % DO Noble Ball Work Phone: [facility] 11-19-2023 11:24-0400 Systolic blood pressure 142 mm[Hg] DO Noble Ball Work Phone: [facility] 08-28-2023 09:48-0400 Body height 152.4 cm DO Noble Ball Work Phone: [facility] 08-28-2023 09:48-0400 Body mass index (BMI) [Ratio] 35.2 kg/m2 DO Noble Ball Work Phone: [facility] 08-28-2023 09:48-0400 Body weight 81.64 kg DO Noble Ball Work Phone: [facility] 08-28-2023 09:24-0400 Body temperature 96.6 [degF] DO Noble Ball Work Phone: [facility] 08-28-2023 09:24-0400 Diastolic blood pressure 57 mm[Hg] DO Noble Ball Work Phone: [facility] 08-28-2023 09:24-0400 Heart rate 65 /min DO Noble Ball Work Phone: [facility] 08-28-2023 09:24-0400 Respiratory rate 18 /min DO Noble Ball Work Phone: [facility] 08-28-2023 09:24-0400 Systolic blood pressure 161 mm[Hg] DO Noble Ball Work Phone: [facility] 08-10-2023 13:57-0500 Body height 152.4 cm DO Nbole Ball Work Phone: [facility] 08-10-2023 13:57-0500 Body mass index (BMI) [Ratio] 35.4 kg/m2 DO Noble Ball Work Phone: [facility] 08-10-2023 13:57-0500 Body weight 82.27 kg DO Noble Ball Work Phone: [facility] 08-10-2023 13:57-0500 Diastolic blood pressure 70 mm[Hg] DO Noble Ball Work Phone: [facility] 08-10-2023 13:57-0500 Heart rate 73 /min DO Noble Ball Work Phone: [facility] 08-10-2023 13:57-0500 Respiratory rate 12 /min DO Noble Ball Work Phone: [facility] 08-10-2023 13:57-0500 Systolic blood pressure 150 mm[Hg] DO Noble Ball Work Phone: [facility] 08-07-2023 09:54-0500 Body height 152.4 cm DO Noble Ball Work Phone: [facility] 08-07-2023 09:54-0500 Body mass index (BMI) [Ratio] 35.2 kg/m2 DO Noble Ball Work Phone: [facility] 08-07-2023 09:54-0500 Body weight 81.64 kg DO Noble Ball Work Phone: [facility] 07-16-2023 11:30-0500 Body height 154.94 cm Noble Ball Other [facility] Other 07-16-2023 11:30-0500 Body mass index (BMI) [Ratio] 33.74 kg/m2 Noble Ball Other [facility] Other 07-16-2023 11:30-0500 Body weight 81.01 kg Noble Ball Other [facility] Other 07-16-2023 11:30-0500 Diastolic blood pressure 72 mm[Hg] Noble Ball Other [facility] [employer] Other 07-16-2023 11:30-0500 Respiratory rate 12 /min Noble Ball Other [facility] Other 07-16-2023 11:30-0500 Systolic blood pressure 133 mm[Hg] Noble Ball Other [facility] Other 05-28-2023 14:28-0500 Diastolic blood pressure 63 mm[Hg] DO Noble Ball Work Phone: [facility] 05-28-2023 14:28-0500 Heart rate 58 /min DO Noble Ball Work Phone: [facility] 05-28-2023 14:28-0500 Respiratory rate 16 /min DO Noble Ball Work Phone: [facility] 05-28-2023 14:28-0500 SaO2% (BldA) [Mass fraction] 94 % DO Noble Ball Work Phone: [facility] 05-28-2023 14:28-0500 Systolic blood pressure 116 mm[Hg] DO Noble Ball Work Phone: [facility] 05-28-2023 13:22-0500 Inhaled oxygen flow rate 6 L/min DO Noble Ball Work Phone: [facility] 05-28-2023 13:07-0500 Body temperature 97.4 [degF] DO Noble Ball Work Phone: [facility] 05-28-2023 12:32-0500 Body height 154.94 cm DO Noble Ball Work Phone: [facility] 05-28-2023 12:32-0500 Body mass index (BMI) [Ratio] 33.7 kg/m2 DO Noble Ball Work Phone: [facility] 05-28-2023 12:32-0500 Body weight 81 kg DO Noble Ball Work Phone: [facility] 05-15-2023 09:57-0500 Body height 152.4 cm DO Noble Ball Work Phone: [facility] 05-15-2023 09:57-0500 Body mass index (BMI) [Ratio] 35.2 kg/m2 DO Noble Ball Work Phone: [facility] 05-15-2023 09:57-0500 Body weight 81.64 kg DO Noble Ball Work Phone: [facility] 05-15-2023 09:12-0500 Body temperature 98.1 [degF] DO Noble Ball Work Phone: [facility] 05-15-2023 09:12-0500 Diastolic blood pressure 69 mm[Hg] DO Noble Ball Work Phone: [facility] 05-15-2023 09:12-0500 Heart rate 68 /min DO Noble Ball Work Phone: [facility] 05-15-2023 09:12-0500 Respiratory rate 18 /min DO Noble Ball Work Phone: [facility] 05-15-2023 09:12-0500 Systolic blood pressure 168 mm[Hg] DO Noble Ball Work Phone: [facility] 03-13-2023 14:30-0400 Body height 154.94 cm Noble Ball Other [facility] Other 03-13-2023 14:30-0400 Body mass index (BMI) [Ratio] 34.01 kg/m2 Noble Ball Other [facility] Other 03-13-2023 14:30-0400 Body weight 81.65 kg Noble Ball Other [facility] Other 03-13-2023 14:30-0400 Diastolic blood pressure 62 mm[Hg] Noble Ball Other [facility] Other 03-13-2023 14:30-0400 Systolic blood pressure 122 mm[Hg] Noble Ball Other [facility] Other 12-25-2022 15:45-0400 Body height 154.94 cm Noble Ball Other [facility] Other 12-25-2022 15:45-0400 Body mass index (BMI) [Ratio] 33.97 kg/m2 Noble Ball Other [facility] Other 12-25-2022 15:45-0400 Body weight 81.56 kg Noble Ball Other [facility] Other 12-25-2022 15:45-0400 Diastolic blood pressure 70 mm[Hg] Noble Ball Other [facility] Other 12-25-2022 15:45-0400 Respiratory rate 12 /min Noble Ball Other [facility] Other 12-25-2022 15:45-0400 Systolic blood pressure 147 mm[Hg] Noble Ball Other [facility] Other 09-27-2022 12:00-0400 Body height 154.94 cm Noble Ball Other [facility] Other 09-27-2022 12:00-0400 Body mass index (BMI) [Ratio] 34.5 kg/m2 Noble Ball Other sones Other 09-27-2022 12:00-0400 Body weight 82.83 kg Noble Ball Other sones Other 09-27-2022 12:00-0400 Diastolic blood pressure 86 mm[Hg] Noble Ball Other sones Other 09-27-2022 12:00-0400 Respiratory rate 12 /min Noble Ball Other sones Other 09-27-2022 12:00-0400 Systolic blood pressure 122 mm[Hg] Noble Ball Other sones Other 08-17-2022 10:15-0500 Body height 154.94 cm Noble Ball Other sones Other 08-17-2022 10:15-0500 Body mass index (BMI) [Ratio] 34.91 kg/m2 Noble Ball Other sones Other 08-17-2022 10:15-0500 Body weight 83.83 kg Noble Ball Other sones Other 08-17-2022 10:15-0500 Diastolic blood pressure 78 mm[Hg] Noble Ball Other sones Other 08-17-2022 10:15-0500 Respiratory rate 12 /min Noble Ball Other sones Other 08-17-2022 10:15-0500 Systolic blood pressure 116 mm[Hg] Noble Ball Other sones Other 08-10-2022 10:15-0500 Body height 154.94 cm Noble Ball Other sones Other 08-10-2022 10:15-0500 Body mass index (BMI) [Ratio] 34.91 kg/m2 Noble Ball Other sones Other 08-10-2022 10:15-0500 Body weight 83.83 kg Noble Ball Other [place] [facility] Other 08-10-2022 10:15-0500 Diastolic blood pressure 76 mm[Hg] Noble Ball Other [place] [place] [facility] Other 08-10-2022 10:15-0500 Respiratory rate 12 /min Noble Ball Other [place] [facility] Other 08-10-2022 10:15-0500 Systolic blood pressure 112 mm[Hg] Noble Ball Other [place] [facility] Other 10-19-2021 12:57-0400 Body height 157.5 cm Genny Vianey PA-C Work Phone: [facility] 10-19-2021 12:57-0400 Body temperature 97.7 [degF] Genny Vianey PA-C Work Phone: [facility] 10-19-2021 12:57-0400 Body weight 83.28 kg Genny Vianey PA-C Work Phone: [facility] 10-19-2021 12:57-0400 Diastolic blood pressure 52 mm[Hg] Genny Vianey PA-C Work Phone: [facility] 10-19-2021 12:57-0400 Heart rate 69 /min Genny Vianey PA-C Work Phone: [facility] 10-19-2021 12:57-0400 Respiratory rate 18 /min Genny Vianey PA-C Work Phone: [facility] 10-19-2021 12:57-0400 SaO2% (BldA) [Mass fraction] 94 % Genny Vianey PA-C Work Phone: [facility] 10-19-2021 12:57-0400 Systolic blood pressure 164 mm[Hg] Genny Vianey PA-C Work Phone: [facility] Encounters Encounter Date Encounter Type Care Provider Facility Start: 01-14-2024 End: 01-14-2024 ambulatory DO Nika Fagan Work Phone: [facility] Work Phone: Start: 01-14-2024 End: 01-14-2024 Patient encounter procedure DO Nika Fagan Work Phone: [facility] Work Phone: Start: 12-31-2023 End: 12-31-2023 ambulatory [facility] Start: 12-10-2023 End: 12-10-2023 ambulatory DO Nika Fagan Work Phone: [facility] Work Phone: Start: 12-10-2023 End: 12-10-2023 Patient encounter procedure DO Nika Fagan Work Phone: [facility] Work Phone: Start: 12-07-2023 End: 12-07-2023 ambulatory DO Nika Fagan Work Phone: [facility] Work Phone: Start: 12-07-2023 End: 12-07-2023 Patient encounter procedure DO Nika Fagan Work Phone: [facility] Work Phone: Start: 12-03-2023 Non-patient / Non-visit DO Paulina Fagan Work Phone: [facility] Work Phone: Start: 11-30-2023 End: 12-01-2023 Evaluation and management of inpatient DO Nika Fagan Work Phone: [facility] [place] [facility] Work Phone: Start: 11-30-2023 End: 12-01-2023 observation encounter DO Nika Vernon Rylan Work Phone: [facility] Work Phone: Start: 11-30-2023 End: 12-01-2023 ambulatory Jim Clay Facility:[facility] Start: 11-23-2023 End: 11-23-2023 ambulatory [facility] Start: 11-20-2023 Non-patient / Non-visit DO Paulina janelle Fagan Work Phone[facility] Work Phone: Start: 11-19-2023 End: 11-19-2023 ambulatory DO Noble Ball Work Phone: [facility] Work Phone: Start: 11-19-2023 End: 11-19-2023 Patient encounter procedure DO Noble Ball Work Phone: [facility] Work Phone: Start: 11-08-2023 End: 11-08-2023 ambulatory DO Noble Ball Work Phone: [facility] Work Phone: Start: 11-08-2023 End: 11-08-2023 Patient encounter procedure DO Noble Ball Work Phone: [facility] Work Phone: Start: 10-08-2023 End: 10-08-2023 ambulatory DO Noble Ball Work Phone: [facility] Work Phone: Start: 10-08-2023 End: 10-08-2023 Patient encounter procedure DO Noble Ball Work Phone: [facility] Work Phone: Start: 09-06-2023 End: 09-06-2023 ambulatory DO Noble Ball Work Phone: [facility] Work Phone: Start: 09-06-2023 End: 09-06-2023 Patient encounter procedure DO Noble Ferguson Work Phone: [facility] Work Phone: Start: 08-28-2023 End: 08-28-2023 ambulatory DO Noble Ferguson Work Phone: [facility] Work Phone: Start: 08-28-2023 End: 08-28-2023 Discharged Recurring DO Noble Ferguson Work Phone: [facility] [place] Work Phone: Start: 08-10-2023 End: 08-10-2023 Patient encounter procedure DO Noble Ferguson Work Phone: [facility] Work Phone: Start: 08-06-2023 End: 08-06-2023 Patient encounter procedure DO Noble Ferguson Work Phone: [facility] Work Phone: Start: 08-06-2023 Non-patient / Non-visit DO Prasanna Ferguson Work Phone: [facility] Work Phone: Start: 07-16-2023 End: 07-16-2023 ambulatory Noble Ferguson Other sones Other Start: 07-16-2023 Office outpatient vi sit 25 minutes Noble Ferguson [facility] Start: 07-13-2023 End: 07-13-2023 ambulatory Noble Ferguson Other sones Other Start: 07-13-2023 Telephone encounter Noble Ferguson [facility] Start: 07-04-2023 End: 07-04-2023 ambulatory Noble Ferguson Other sones Other Start: 07-04-2023 Nursing evaluation o f patient and report Noble Ferguson [facility] Start: 05-30-2023 End: 05-30-2023 ambulatory Noble Ferguson Other sones Other Start: 05-30-2023 Nursing evaluation o f patient and report Noble Ferguson [facility] Start: 05-28-2023 Telephone encounter Noble Ferguson [facility] Start: 05-28-2023 End: 05-28-2023 Admission to same day surgery center DO Noble Ferguson Work Phone: [facility] [place] Start: 05-28-2023 End: 05-28-2023 ambulatory DO Noble Ferguson Work Phone: [facility] Work Phone: Start: 05-17-2023 End: 05-17-2023 Patient encounter procedure DO Noble Ferguson Work Phone: [facility]-Pre-Surgical Testing Work Phone: Start: 05-17-2023 End: 05-17-2023 ambulatory DO Noble Ferguson Work Phone: [facility] Work Phone: Start: 05-15-2023 Registered Recurring DO Rajni in Ball Work Phone: [facility] [place] Work Phone: Start: 04-26-2023 End: 04-26-2023 ambulatory Gayle Wade Other sones Other Start: 04-26-2023 Nursing evaluation o f patient and report Gayle Wade [facility] Start: 04-11-2023 End: 04-11-2023 ambulatory [facility] Start: 04-10-2023 End: 04-10-2023 ambulatory Noble Ferguson Other sones Other Start: 04-10-2023 Telephone encounter Noble Ferguson [facility] Start: 03-13-2023 End: 03-13-2023 ambulatory Noble Ball Other sones Other Start: 03-13-2023 Patient encounter procedure Noble Ferguson [facility] Start: 02-15-2023 End: 02-15-2023 ambulatory Noble Ball Other sones Other Start: 02-15-2023 Nursing evaluation o f patient and report Noble Ferguson [facility] Start: 01-26-2023 End: 01-26-2023 ambulatory Noble Ball Other sones Other Start: 01-26-2023 Telephone encounter Noble Ferguson [facility] Start: 01-21-2023 End: 01-21-2023 ambulatory Noble Ball Other sones Other Start: 01-21-2023 Telephone encounter Noble Ball [facility] Start: 01-17-2023 End: 01-17-2023 ambulatory Noble Ball Other sones Other Start: 01-17-2023 Telephone encounter Noble Ferguson [facility] Start: 01-15-2023 End: 01-15-2023 ambulatory Noble Ball Other sones Other Start: 01-15-2023 Nursing evaluation o f patient and report Noble Ferguson [facility] Start: 01-02-2023 End: 01-02-2023 ambulatory Noble Ball Other sones Other Start: 01-02-2023 Telephone encounter Noble Ball [facility] Start: 12-27-2022 End: 12-27-2022 ambulatory Noble Ball Other sones Other Start: 12-27-2022 Telephone encounter Noble Ball [facility] Start: 12-26-2022 End: 12-26-2022 ambulatory Noble Ball Other sones Other Start: 12-26-2022 Telephone encounter Noble TALAVERA [facility] Start: 12-25-2022 End: 12-25-2022 ambulatory Noble Ferguson Other sones Other Start: 12-25-2022 Office outpatient vi sit 25 minutes Noble Ferguson [facility] Start: 12-14-2022 End: 12-14-2022 ambulatory Noble Ferguson Other sones Other Start: 12-14-2022 Nursing evaluation o f patient and report Noble Ferguson [facility] Start: 11-13-2022 End: 11-13-2022 ambulatory Noble Ferguson Other sones Other Start: 11-13-2022 Nursing evaluation o f patient and report Noble Ferguson [facility] Start: 11-09-2022 ambulatory RITU TAMLYN . Facility: [...] o f patient and report Noble Ferguson [facility] Start: 10-12-2022 End: 10-13-2022 ambulatory RITU TAMLYN . sones Other Start: 09-27-2022 End: 09-27-2022 ambulatory Noble Ferguson Other sones Other Start: 09-27-2022 Office outpatient vi sit 25 minutes Noble Ferguson [facility] Start: 09-12-2022 End: 09-12-2022 ambulatory Noble Ferguson Other sones Other Start: 09-12-2022 Nursing evaluation o f patient and report Noble Ferguson [facility] Start: 08-23-2022 End: 08-23-2022 ambulatory Noble Ferguson Other sones Other Start: 08-23-2022 Telephone encounter Noble TALAVERA [facility] Start: 08-22-2022 ambulatory Checo RODRIGEZ Facility :[facility] Start: 08-17-2022 End: 08-18-[address] NOBLE FERGUSON sones Other Start: 08-17-2022 Office outpatient vi sit 15 minutes Noble Ferguson [facility] Start: 08-17-2022 Telephone encounter Noble TALAVERA [facility] Start: 08-10-2022 End: 08-10-2022 ambulatory Noble Ferguson Other sones Other Start: 08-10-2022 Office outpatient vi sit 15 minutes Noble Ferguson [facility] Start: 07-11-2022 End: 07-11-2022 ambulatory Gayle Wade Other sones Other Start: 07-11-2022 Nursing evaluation o f patient and report Gayle [facility] Start: 01-26-2022 End: 01-27-[address] NOBLE FERGUSON Facility: Start: 01-24-2022 Adult health examination Solomon last Ferguson Other sones Other Start: 10-19-2021 End: 10-19-2021 ambulatory Genny Junior Vianey METZ Work Phone: Hematology/Oncology Comment on above: Encounter for screen ing mammogram for malignant neoplasm of breast (Primary Dx) Start: 10-19-2021 End: 10-19-2021 Patient encounter procedure Genny Junior Vianey METZ Work Phone: [facility] Start: 09-22-2021 Telephone encounter Stephen jimenes MD Work Phone: Hematology/Oncology Comment on above: Orders Start: 05-20-2019 Preoperative cardiovascular examination Noble Ferguson Other sones Other Start: 09-03-2018 End: 09-04-2018 Patient encounter procedure PROVIDER UNKNOWN Facility:[facility] Start: 08-08-2018 End: 08-09-2018 Patient encounter procedure DEFAULT PHYSICIAN Facility:[facility] Procedures Date Procedure Procedure Detail Performing Clinician Start: 11-30-2023 Duplex scan of lower limb veins DO Nika [id number] Work Phone: Start: 11-30-2023 CT angiography of thorax DO Nika Bux180 Work Phone: Start: 11-30-2023 Plain chest X-ray DO Alberto Fagan Work Phone: Start: 05-28-2023 Debridement DO Olivia Ferguson Work Phone: Start: 10-05-2018 Screening mammography B enaida Ferguson Other Start: 01-05-2016 Pre-surgery evaluation Noble Ferguson Other Start: 01-05-2016 Preoperative cardiov ascular examination Nbole Ferguson Other Depression screening Olivia Ferguson Other Plan of Treatment Date Care Activity Detail Author Start: 12-01-2023 End: 12-01-2023 [facility] Start: 11-30-2023 Duplex scan of lower limb veins US venous duplex LE BI [facility] Start: 11-30-2023 US Lower extremity v ein - bilateral [facility] Start: 11-30-2023 End: 11-30-2023 [facility] Start: 11-30-2023 Hospital admission [facility] Start: 05-28-2023 Aerobic Culture Aerobic Culture [facility] Start: 05-28-2023 Anaerobic Culture Anaerobic Culture [facility] Start: 05-28-2023 Microscopic observat ion [Identifier] in Unspecified specimen by Gram stain [facility] Start: 05-28-2023 End: 05-28-2023 [facility] Start: 04-14-2022 DIABETES SCREEN DIABETES SCREEN [facility] Start: 02-09-2022 Influenza vaccination INFLUENZ A (Season Ended) [facility] Start: 07-07-2021 COVID-19 VACCINE (4 - Booster for Pfizer series) COVID-19 VACCINE (4 - Booster for Pfizer series) [facility] Start: 06-11-2021 ADVANCE DIRECTIVE DISCUSSION ADVANCE DIRECTIVE DISCUSSION [facility] Start: 2003 BONE DENSITY BONE DENSITY [facility] Start: 2003 PNEUMOVAX AGE 65 AND OVER WITH 5YR LOOKBACK (#1) PNEUMOVAX AGE 65 AND OVER WITH 5YR LOOKBACK (#1) [facility] Start: 1988 SHINGRIX VACCINE (1 of 2) SHINGRIX VACCINE (1 of 2) [facility] Start: 1957 SHINGRIX VACCINE (1 of 2) SHINGRIX VACCINE (1 of 2) [facility] Start: 1957 Urine microalbumin profile DTAP,TDAP,TD (1 - Tdap) [facility] Start: 1944 PNEUMOCOCCAL: 65+ (1 - PCV) PNEUMOCOCCAL: 65+ (1 - PCV) [facility] Bacteria identified in Unspecified specimen by Aerobe culture [facility] Bacteria identified in Unspecified specimen by Anaerobe culture [facility] Patient Education [facility] Work Phone: Patient referral [facility] Work Phone: End: 11-18-2022 Screening mammography bi 2-view breast inc cad KAREN SCREENING Radiology Routine Encounter for screening mammogram for malignant neoplasm of breast 1 Occurrences starting 10/19/2021 until 11/18/2022 [facility] Work Phone: Comment on above: 1 Occurrences starti ng 10/19/2021 until 11/18/2022 [facility] Immunizations Immunization Date Immunization Notes Care Provider Sukhwinder plata 03-26-2023 influenza virus vaccine, unspecified formulation DO Noble Ferguson Work Phone: [facility] 03-26-2023 influenza, high dose seasonal, preservative-free Noble Ferguson Other [facility] Other 03-06-2022 influenza virus vaccine, split virus (incl. purified surface antigen) Noble Ferguson Other [facility] Other 03-06-2022 influenza virus vaccine, unspecified formulation DO Noble Ferguson Work Phone: [facility] 03-07-2021 COVID-19 vaccine, ag e 12+ yr (PFIZER-BIONTECH - PURPLE TOP) Genny Winters PA-C Work Phone: [facility] 03-01-2021 influenza virus vaccine, split virus (incl. purified surface antigen) Noble Ferguson Other [facility] Other 03-01-2021 influenza virus vaccine, unspecified formulation DO Noble Marty Work Phone: [facility] 09-07-2020 COVID-19 vaccine, ag e 12+ yr (PFIZER-BIONTECH - PURPLE TOP) Genny Winters PA-C Work Phone: [facility] 08-16-2020 COVID-19 vaccine, ag e 12+ yr (PFIZER-BIONTECH - PURPLE TOP) Genny Winters PA-C Work Phone: [facility] 03-01-2020 influenza virus vaccine, split virus (incl. purified surface antigen) Noble Ferguson Other [facility] Other 03-01-2020 influenza virus vaccine, unspecified formulation DO Noble Marty Work Phone: [facility] 03-18-2019 influenza virus vaccine, split virus (incl. purified surface antigen) Noble Ferguson Other [facility] Other 03-18-2019 influenza virus vaccine, unspecified formulation DO Noble Ferguson Work Phone: [facility] 03-11-2018 influenza virus vaccine, split virus (incl. purified surface antigen) Noble Ferguson Other [facility] Other 03-11-2018 influenza virus vaccine, unspecified formulation DO Noble Ferguson Work Phone: [facility] 03-11-2018 Seasonal trivalent influenza vaccine, adjuvanted, preservative free Genny Vianey PA-C Work Phone: [facility] 03-27-2017 influenza virus vaccine, split virus (incl. purified surface antigen) Noble Ferguson Other [facility] Other 03-27-2017 influenza virus vaccine, unspecified formulation DO Noble Ferguson Work Phone: [facility] 03-27-2017 influenza, high dose seasonal, preservative-free Genny Vianey PA-C Work Phone: [facility] 03-21-2016 influenza virus vaccine, split virus (incl. purified surface antigen) Noble Fergsuon Other [facility] Other 03-21-2016 influenza virus vaccine, unspecified formulation DO Noble Ferguson Work Phone: [facility] 03-21-2016 influenza, high dose seasonal, preservative-free Genny Vianey PA-C Work Phone: [facility] 03-24-2015 influenza virus vaccine, split virus (incl. purified surface antigen) Noble Ferguson Other [facility] Other 03-24-2015 influenza virus vaccine, unspecified formulation DO Noble Ferguson Work Phone: [facility] 03-24-2015 pneumococcal conjuga te vaccine, 13 valent Noble Ferguson Other [facility] 03-24-2015 pneumococcal Conjuga te, unspecified formulation; 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: [Need for prophylactic vaccination against Streptococcus pneumoniae (pneumococcus)] Noble Ferguson Other [place] [place] [facility] Other 04-22-2013 tetanus and diphther ia toxoids, adsorbed, preservative free, for adult use (5 Lf of tetanus toxoid and 2 Lf of diphtheria toxoid) Noble Ferguson Other [facility] 04-28-2009 pneumococcal polysaccharide vaccine, 23 valent Noble Ferguson Other [facility] Payers Date Payer Category Payer Self-pay [id number] 2014 Private Health Insurance [facility] AARP SUPPLEMENT [id number] 2014-Present [phone] [address] [place] [address] Indemnity [id number] 1996 Medicare MEDICARE MEDICAR E A AND B [id number] 1996-Present [phone] [address] [address] [place] [address] Medicare [id number] 1959 Medicare [id number] 1959 Unknown [id number] 1938 Unknown [id number] [id number] .647 1938 Unknown [id number] 2.16.840.1.665415.3.579.2 .647 1938 Unknown [id number] 2.16.840.1.859386.3.579.2 .727 1938 Unknown [id number] 2.16.840.1.410385.3.579.2 .593 1938 Unknown [id number] 2.16.840.1.526869.3.579.2 .593 1938 Unknown [id number] 2.16.840.1.530238.3.579.2 .593 1938 Unknown [id number] 2.16.840.1.980579.3.579.2 .593 1938 Unknown [id number] 2.16.840.1.130511.3.579.2 .593 1938 Unknown [id number] 2.16.840.1.178377.3.579.2 .593 1938 Unknown [id number] 2.16.840.1.875658.3.579.2 .593 1938 Unknown [id number] 2.16.840.1.383622.3.579.2 .593 1938 Unknown [id number] 2.16.840.1.547216.3.579.2 .593 1938 Unknown [id number] 2.16.840.1.082120.3.579.2 .593 1938 Unknown [id number] 2.16.840.1.391187.3.579.2 .593 1938 Unknown [id number] 2.16.840.1.699883.3.579.2 .593 1938 Unknown [id number] 2.16.840.1.941688.3.579.2 .593 Unknown Unknown [id number] 2.16.840.1.538645.3.579.2 .531 Unknown [id number] 2.16.840.1.631957.3.579.2 .531 Unknown [id number] 2.16.840.1.969484.3.579.2 .531 Unknown [id number] 2.16.840.1.460653.3.579.2 .531 Social History Date Type Detail Facility Start: 11-12-2014 End: 11-30-2023 Tobacco smoking status NHIS Ex-smoker [facility] History of tobacco use Cigarette Smoker [facility] Start: 11-12-2014 Cigarettes smoked current (pack per day) - Reported 1 [facility] Start: 11-12-2014 Tobacco use and exposure Smokeless tobacco non-user [facility] Start: 10-19-2020 End: 10-19-2021 Alcohol intake Current non-drinker of alcohol (finding) [facility] Start: 1940 Sex Assigned At Not on file C [facility] Start: 10-09-2021 End: 10-19-2021 Exposure to SARS-CoV-2 (event) Not sure [facility] End: 11-10-2007 Sex Assigned At [email or web address] Other Start: 1940 [facility]igned At [facility] Goals Date Patient Goal Desired Activity /State Functional Status Date Assessment Result Facility 12-01-2023 Functional status Patient at Baseline [facility] Work Phone: 11-30-2023 Functional status Patient at Baseline [facility] Work Phone: Mental Status Date Assessment Result Facility 12-01-2023 Cognitive function Cognitive Sta tus Patient at Baseline [facility] Work Phone: 11-30-2023 Cognitive function Cognitive Sta tus Patient at Baseline [facility] Work Phone: Clinical Notes 09-22-2021 to 01-14-2024 Note Date & Type Note Facility 01-14-2024 Evaluation note Diagnosis Onset Date ASHD (arteriosclerotic heart disease) acute Chronic bronchitis acute History of breast cancer acu te Hypothyroidism acute Pernicious anemia acute Stage 3a chronic kidney disease acute Chest pain resolved Acute on chronic heart failu re with preserved ejection fraction (HFpEF) acut e ASHD (arteriosclerotic heart disease) acute Stage 3a chronic kidney disease acute Chest pain resolved [facility] Work Phone: [phone]) 833-932807-22-2024 [facility] Subjective Nora Parnell is a 83 y.o. year old female patient being seen for 1 mo follow up echo, stress test, and med changes. Amlodipine was stopped last month, and doxazosin was added. She says LE edema has not improved since stopping amlodipine. Her echo was done while she was inpatient at [facility] for chest pain. While there, they added metoprolol and spironolactone. Her PCP increased lisinopril to 30mg daily. She denies recurrent chest pain. She reports no change in SOB. Patient Active Problem List Diagnosis Arthritis Bowel [...] Insomnia Stage 3a chronic kidney disease (CMS/HCC) Chest pain Disorder of nail Heart failure with preserved ejection fraction, borderline, class III (CMS/HCC) Lower extremity edema Family History Problem Relation Name Age of Onset No Known Problems Mother No Known Problems Father Social History Tobacco Use Smoking status: Former Types: Cigarettes Quit date: 2007 Years since quittin.5 Smokeless tobacco: Never Substance Use Topics Alcohol use: Never HPI Nora is seen in follow-up. She is an 83-year-old woman with history of COPD and coronary artery disease status post stenting of the RCA in 2019. At that time she had moderate disease in the circumflex and apical LAD. This has been managed medically. Additional medical history includes hypertension on treatment. She recently has been having significant lower extremity swelling and was tried by her PCP on diuretic therapy that did not help. Lower extremity duplex did not show any DVT. At last visit of 11/23/2023 and due to significant lower extremity edema I changed amlodipine to doxazosin thinking that the lower extremity edema was related to side effect of amlodipine. I also investigated her symptoms of shortness of breath with an echocardiogram and a stress test. However on 11/30/2023 she was admitted to the emergency room at [facility] with chest pain, And shortness of breath. Troponins were negative. ECG did not show ischemia. Serial troponins were negative. Due to elevated D-dimer, CTA was performed that ruled out pulmonary embolism. Echocardiogram performed during that admission showed normal ejection fraction. Spironolactone 25 mg daily was added as well as low-dose metoprolol 12.5 mg daily. Her stress test was then performed on 12/06/2023 and showed no evidence of ischemia. Today she reports that she continues to have symptoms of shortness of breath on exertion with lower extremity edema. NYHA class II-III symptoms. No chest pain. No palpitations. Review of Systems Cardiovascular: Positive for dyspnea on exertion and leg swelling. Musculoskeletal: Positive for arthritis, back pain, joint pain and myalgias. All other systems reviewed and are negative. Objective Visit Vitals BP 142/62 (BP Location: Left arm, Patient Position: Sitting) Pulse 52 Ht 1.549 m (5' 1 ) Wt 82.6 kg (182 lb) SpO2 96% BMI 34.39 kg/m??? Smoking Status Former BSA 1.89 m??? Physical Exam Constitutional: Appearance: She is [...] Judgment: Judgment normal. Allergies Allergies Allergen Reactions Peni (more content not included)...[facility]07-01-2024 Evaluation note* Diagnosis Onset Date Resolution Status ASHD (arteriosclerotic heart disease) acute Chronic bronchitis acute History of breast cancer acu te Hypothyroidism acute Pernicious anemia acute Stage 3a chronic kidney disease acute Chest pain resolved Acute on chronic heart failu re with preserved ejection fraction (HFpEF) acute ASHD (arteriosclerotic heart disease) acute Stage 3a chronic kidney disease acute Chest pain resolved [facility] Work Phone: 1(556) 166-342806-21-2024 History and physical note Author Jim Clay [facility] November 30, 2023 5:16pm Note Date/Time November 30, 2023 3:48 pm [facility] [address] [place] [address] Hospitalist H&P Signed Patient: Nora Parnell MR#: [id number] : 1940 Acct:[id number] Age/Sex: 83 / F Adm Date: 4 Loc: Room: [address] [place] [address] Type: ADM INOo Attending Dr: Jim Clay DO Copies to: DO Jim Jean-Baptiste, ~ HPI DATE OF EXAMINATION: 11/30/23 CHIEF COMPLAINT: [...] and started torsemide. She recently saw her level vial grinder who recommended an echocardiogram and a stress [...] negative unless noted below or in HPI [facility] Medical History (Updated 11/30/23 @ 13:34 by [...] % (Auto) 20.1 % (.) 11/30/23 10:25 Sunflower % (Auto) 9.8 % (.) 11/30/23 10:25 Eos % (Auto) 2.8 % (.) 11/30/23 10:25 Baso % (Auto) 0.6 % (.) 11/30/23 10:25 Nucleat RBC Rel Count 0.1 /100 WBC (0-0.5) 11/30/23 10:25 Neut # (Auto) 4.1 x10E3/uL (1.8-7.7) 11/30/23 10:25 Lymph # (Auto) 1.2 x10E3/uL (1.00-4.8) 11/30/23 10:25 Sunflower # (Auto) 0.6 x10E3/uL (0.0-0.8) 11/30/23 10:25 [...] of the encounter, reviewed the history,performed the jordan elements of the exam, formulated the plan [...] 1 Documented By: Jim Clay DO 11/30/23 9867 Signed By: <Electronically signed by Jim Clay DO> 11/30/23 1739 [facility] Work Phone: 1(875) 679-219406-14-2024 NoteUT Cardiology - [facility] Subjective Nora Parnell is a 83 y.o. [...] the morning., Disp: 90 tablet, Rfl: 3 cpwtsxmdjsp-revskazsb-whtkfzda 200-62.5-25 mcg blister with device, INHALE 1 [...] with results is: L (more content not included)...[facility]02-27-2024 Progress note Author Luis Angel Saucedo [facility] August 07, 2023 9:59am Note Date/Time August 07, 2023 9:54am [facility] [address] [place] [address] Wound Center Provider Note Signed Patient: Nora Parnell MR#: [id number] : 1940 Acct:[id number] Age/Sex: 83 / F Copies to: MD [...] hematoma. She did see her surgeon in [place] who did her previous surgery. Patient had some punch biopsies performed to rule out cancer which apparently did not show any cancer. She did develop nonhealing wound at this site. She underwent a couple debridements and closures in [place] but each time, the wound did open up and start draining. The last debridement was last month. The surgeon who did her previous surgerieshas since left and the patient did see Dr. Kurtz last week. He did remove some remaining sutures and the patient was then referred here. Patient is currently having dressing changes performed at the [facility]. She has an open right breast wound [...] did wound start?: 08/2022 Mode of Arrival/ Account General Manager: Personal vehicle Lives with:: Alone Appetite Description: Within Normal Limits Who helps w/ dressing change?: Home Health and Wound Care Dept Why Do You Need Help?: Can't Reach Ulcer Smoking Status: Former smoker Constitutional Constitutional: Denies fever(s) Integumentary/Breasts Skin/Breast: Reports wounds PMFSH Medical History (Updated 08/06/23 @ 13:22 by [...] 0.1 CM Sq: 0.010 Surrounding Tissue Appearance: Garwood Surrounding Tissue Temp: Warm Drainage Amount: None [...] by MD Luis Angel Saucedo> 08/07/23 0959 [facility] Work Phone: 1(315) 478-419102-06-2024 Progress note Author Luis Angel Saucedo [facility] July 17, 2023 9:52am Note Date/Time July 17, 2023 9 :52am [facility] [address] [place] [address] Wound Center Provider Note Signed Patient: Nora Parnell MR#: [id number] : 1940 Acct:[id number] Age/Sex: 83 / F Copies to: MD [...] hematoma. She did see her surgeon in [place] who did her previous surgery. Patient had some punch biopsies performed to rule out cancer which apparently did not show any cancer. She did develop nonhealing wound at this site. She underwent a couple debridements and closures in [place] but each time, the wound did open up and start draining. The last debridement was last month. The surgeon who did her previous surgerieshas since left and the patient did see Dr. Kurtz last week. He did remove some remaining sutures and the patient was then referred here. Patient is currently having dressing changes performed at the [facility] infusion center. She has an open right [...] did wound start?: 08/2022 Mode of Arrival/ Account General Manager: Personal vehicle Lives with:: Alone Appetite Description: Within Normal Limits Who helps w/ dressing change?: Infusion Center and Wound Care Dept Why Do You Need Help?: Can't Reach Ulcer Smoking Status: Former smoker Constitutional Constitutional: Denies fever(s) Gastrointestinal Gastrointestinal: Denies abdominal pain Integumentary/Breasts Skin/Breast: Reports wounds Neurologic Neurologic: Denies syncope [facility] Medical History CAD (coronary artery disease) [...] Right Breast: Bed Appearance: Beefy Red, Devitalized, Garwood and Yellow Percent of Wound Bed Granulated/Red: 60 Percent of Devitalized: 40 Length (cm): 1.0 Width (cm): 2 Depth (cm): 0.9 CM Sq: 2.000 Surrounding Tissue Appearance: Garwood Surrounding Tissue Temp: Warm Drainage Amount: Small [...] signed by MD Luis Angel Saucedo> 07/17/23 0952 [facility] Work Phone: 1(511) 489-887802-05-2024 Evaluation note* Encounter Date Diagnosis Assessment Notes [...] abstinence. Not a candidate for yearly LDCT [facility] Medication Review Other 01-24-2024 Evaluation note* Encounter Date Diagnosis Assessment Notes Treatment Notes Treatment Clinical Notes Jun, Pernicious anemia (ICD-10 - D51.0) [facility] Medication Review Other 01-23-2024 Progress note Author Luis Angel Saucedo [facility] July 03, 2023 12:04pm Note Date/Time July 03, 2023 1 2:04pm [facility] [address] [place] [address] Wound Center Provider Note Signed Patient: Nora Parnell MR#: [id number] : 1940 Acct:[id number] Age/Sex: 83 / F Copies to: MD [...] hematoma. She did see her surgeon in [place] who did her previous surgery. Patient had some punch biopsies performed to rule out cancer which apparently did not show any cancer. She did develop nonhealing wound at this site. She underwent a couple debridements and closures in [place] but each time, the wound did open up and start draining. The last debridement was last month. The surgeon who did her previous surgerieshas since left and the patient did see Dr. Kurtz last week. He did remove some remaining sutures and the patient was then referred here. Patient is currently having dressing changes performed at the [facility] infusion center. She has an open right [...] did wound start?: 08/2022 Mode of Arrival/ Account General Manager: Personal vehicle Lives with:: Alone Appetite Description: Within Normal Limits Who helps w/ dressing change?: Infusion Center and Wound Care Dept Why Do You Need Help?: Can't Reach Ulcer Smoking Status: Former smoker Constitutional Constitutional: Denies fever(s) Integumentary/Breasts Skin/Breast: Reports wounds PMFSH Medical History CAD (coronary artery disease) Osteoporosis [...] Right Breast: Bed Appearance: Beefy Red, Devitalized, Garwood and Yellow Percent of Wound Bed Granulated/Red: 10 Percent of Devitalized: 90 Length (cm): 0.8 Width (cm): 2 Depth (cm): 1 CM Sq: 1.600 Surrounding Tissue Appearance: Garwood Surrounding Tissue Temp: Warm Drainage Amount: Small [...] by MD Luis Angel Saucedo> 07/03/23 1204 [facility] Work Phone: 1([phone]) 420-372701-02-2024 Progress note Author Luis Angel Saucedo [facility] June 12, 2023 9:26am Note Date/Time June 12, 2023 9: 26am [facility] [address] [place] [address] Wound Center Provider Note Signed Patient: Nora Parnell MR#: [id number] : 1940 Acct:[id number] Age/Sex: 83 / F Copies to: MD Noble West,DO~ HPI Date of Visit Date of Visit: Date of Service: 06/12/2023 Time of Service: 09:23 Narrative HPI: Patient is status post debridement of her right breast wound. Pathology showed chronic wound changes. No mention of malignancy. Cultures grew normal skin aries. There was an anaerobe [place]. [place] was started on negative pressure [...] hematoma. She did see her surgeon in [place] who did her previous surgery. Patient had some punch biopsies performed to rule out cancer which apparently did not show any cancer. She did develop nonhealing wound at this site. She underwent a couple debridements and closures in [place] but each time, the wound did open up and start draining. The last debridement was last month. The surgeon who did her previous surgerieshas since left and the patient did see Dr. Kurtz last week. He did remove some remaining sutures and the patient was then referred here. Patient is currently having dressing changes performed at the [facility] infusion center. She has an open right [...] did wound start?: 08/2022 Mode of Arrival/ Account General Manager: Personal vehicle Lives with:: Alone Appetite Description: Within Normal Limits Who helps w/ dressing change?: Infusion Center and Wound Care Dept Why Do You Need Help?: Can't Reach Ulcer Smoking Status: Former smoker Constitutional Constitutional: Denies fever(s) Integumentary/Breasts Skin/Breast: Reports wounds [facility] Medical History Breast cancer right CAD (coronary artery disease) COPD (chronic obstructive pulmonary disease) Diverticulitis Hyperlipidemia Hypertension Hypothyroidism Osteoporosis Surgical History History of appendectomy History of colostomy with reversal d/t diverticulitis History of joint replacement bilat hip replacements, left knee History of lumpectomy of right breast with lymph node removed Hx of fusion of cervical spine Hx of heart artery stent 2018 Hx of skin graft right breast 12/31 [...] 10:29) Hives Wound/Ulcer Right Breast: Bed Appearance: Garwood and Yellow Percent of Wound Bed Granulated/Red: 10 Percent of Devitalized: 90 Length (cm): 1.2 Width (cm): 2.9 Depth (cm): 2.5 CM Sq: 3.480 Surrounding Tissue Appearance: Garwood Surrounding Tissue Temp: Warm Drainage Amount: Small [...] signed by MD Luis Angel Saucedo> 06/12/23925 [facility] Work Phone: 1([phone]) 989-610012-20-2023 Evaluation note* Encounter Date Diagnosis Assessment Notes Treatment Notes Treatment Clinical Notes May, Pernicious anemia (ICD-10 - D51.0) sones Other 12-18-2023 Hospital Discharge instructions Additional Instructions Initiate negative pressure wound therapy using black foam at 125 mmHg continuous. Change 3 times a week. In the meantime, perform dressing changes daily. Remove packing, irrigate with saline/Vashe and repack with saline moistened 4 x 4 gauze and cover with dry dressing.[facility] Work Phone: [phone]) 570-141212-05-2023 Progress note Author Luis Angel Saucedo [facility] May 15, 2023 9:57am Note Date/Time May 15, 2023 9 :57am [facility] [address] [place] [address] Wound Center Provider Note Signed Patient: Nora Parnell MR#: [id number] : 1940 Acct:[id number] Age/Sex: 83 / F Copies to: MD [...] hematoma. She did see her surgeon in [place] who did her previous surgery. Patient had some punch biopsies performed to rule out cancer which apparently did not show any cancer. She did develop nonhealing wound at this site. She underwent a couple debridements and closures in [place] but each time, the wound did open up and start draining. The last debridement was last month. The surgeon who did her previous surgerieshas since left and the patient did see Dr. Kurtz last week. He did remove some remaining sutures and the patient was then referred here. Patient is currently having dressing changes performed at the [facility] infusion center. She has an open right [...] did wound start?: 08/2022 Mode of Arrival/ Account General Manager: Personal vehicle Lives with:: Alone Appetite Description: Within Normal Limits Who helps w/ dressing change?: Infusion Center and Wound Care Dept Why Do You Need Help?: Can't Reach Ulcer Smoking Status: Former smoker Constitutional Constitutional: Denies fever(s) Cardiovascular Cardiovascular: Denies chest pain Respiratory Respiratory: Denies dyspnea Integumentary/Breasts Skin/Breast: Reports wounds [facility] Medical History (Updated 04/24/23 @ 11:09 [...] by MD Luis Angel Saucedo> 05/15/23 0957 [facility] Work Phone: [phone] 160-292411-16-2023 Evaluation note* Encounter Date Diagnosis Assessment Notes Treatment Notes Treatment Clinical Notes Apr, Pernicious anemia (ICD-10 - D51.0) sones Other 11-14-2023 Progress note Author Luis Angel Saucedo [facility] April 24, 2023 11:12am Note Date/Time April 24, 2023 10:46am [facility] [address] [place] [address] Wound Center Provider Note Signed Patient: Nora Parnell MR#: [id number] : 1940 Acct:[id number] Age/Sex: 83 / F Copies to: MD [...] hematoma. She did see her surgeon in [place] who did her previous surgery. Patient had some punch biopsies performed to rule out cancer which apparently did not show any cancer. She did develop nonhealing wound at this site. She underwent a couple debridements and closures in [place] but each time, the wound did open up and start draining. The last debridement was last month. The surgeon who did her previous surgerieshas since left and the patient did see Dr. Kurtz last week. He did remove some remaining sutures and the patient was then referred here. Patient is currently having dressing changes performed at the [facility]. She has an open right breast wound [...] did wound start?: 08/2022 Mode of Arrival/ Account General Manager: Personal vehicle Lives with:: Alone Appetite Description: Within Normal Limits Who helps w/ dressing change?: Infusion Center and Wound Care Dept Why Do You Need Help?: Can't Reach Ulcer Smoking Status: Former smoker Constitutional Constitutional: Denies fever(s) Cardiovascular Cardiovascular: Denies chest pain Respiratory Respiratory: Denies dyspnea Gastrointestinal Gastrointestinal: Denies abdominal pain Integumentary/Breasts Skin/Breast: Reports wounds Neurologic Neurologic: Denies syncope [facility] Medical History (Updated 04/24/23 @ 11:09 [...] Breast: Bed Appearance: Epithelial Tissue or Bridge, Garwood and Yellow Percent of Wound Bed Granulated/Red: [...] be done daily. Patient goes to the [facility] for this. Patient follow-up here in 3 [...] by MD Luis Angel Saucedo> 04/24/23 1112 [facility] Work Phone: [phone]) [phone] NotePatient here for follow up CAD and hypertension. Recently had another breast surgery to repair infection from biopsy. Still dealing with some drainage from that. She denies chest pain, SOB, palpitations, and lightheadedness. Review of Systems Skin: Positive for poor wound healing. Musculoskeletal: Positive for arthritis, back pain and joint pain. All other systems reviewed and are negative.[facility] 04-11-2023 NoteCardiovascular Medicine [facility] SUBJECTIVE Chief Complaint Patient presents with Coronary [...] the morning., Disp: 90 tablet, Rfl: 3 qmkwgsdkarx-hcftbdjhd-tbffchub 200-62.5-25 mcg blister with device, INHALE 1 [...] Final Atrial Rate 09/03/2018 70 BPM Final [place] Interval 09/03/2018 172 ms Final QRS DURATION 09/03/2018 84 ms Final QT Interval 09/03/2018 398 ms Final QTC CALCULATION(BEZET) 09/03/2018 429 ms Final P [place] 09/03/2018 70 degrees Final R-[place] 09/03/2018 65 degrees Final T Wave [place] 09/03/2018 83 degrees Final Diagnosis 09/03/2018 Final [...] 102, LDL 5 (more content not included)... [facility]10-03-2023 Evaluation note* Encounter Date Diagnosis Assessment [...] patient on monthly SBE and yearly mammograms. sones Other 09-07-2023 Evaluation note* Encounter Date Diagnosis Assessment Notes Treatment Notes Treatment Clinical Notes Feb, Pernicious anemia (ICD-10 - D51.0) sones Other 08-09-2023 Evaluation note* Encounter Date Diagnosis Assessment Notes Treatment Notes Treatment Clinical Notes Jan, Lower extremity edema (ICD-10 - R60.0) Jan, ASHD (arteriosclerotic heart disease) (ICD-10 - I25.10) Jan, HEIN (dyspnea on exertion) (ICD-10 - R06.09) sones Other 08-07-2023 Evaluation note* Encounter Date Diagnosis Assessment Notes Treatment Notes Treatment Clinical Notes Jan, Pernicious anemia (ICD-10 - D51.0) sones Other 07-25-2023 Evaluation note* Encounter Date Diagnosis Assessment Notes Treatment Notes Treatment Clinical Notes Dec, Lower extremity edema (ICD-10 - R60.0) sones Other 07-18-2023 Evaluation note* Encounter Date Diagnosis Assessment Notes Treatment Notes Treatment Clinical Notes Dec, Lower extremity edema (ICD-10 - R60.0) sones Other 07-17-2023 Evaluation note* Encounter Date Diagnosis [...] factors Dec, Elevated d-dimer (ICD-10 - R79.89) sones Other 07-06-2023 Evaluation note* Encounter Date Diagnosis Assessment Notes Treatment Notes Treatment Clinical Notes Dec, Pernicious anemia (ICD-10 - D51.0) sones Other 06-05-2023 Evaluation note* Encounter Date Diagnosis Assessment Notes Treatment Notes Treatment Clinical Notes Nov, Pernicious anemia (ICD-10 - D51.0) sones Other 05-04-2023 Evaluation note* Encounter Date Diagnosis Assessment Notes Treatment Notes Treatment Clinical Notes October, Pernicious anemia (ICD-10 - D51.0) sones Other 04-19-2023 Evaluation note* Encounter Date Diagnosis [...] mammogram in 6mo SBE monthly f/u Surgery sones Other 04-04-2023 Evaluation note* Encounter Date Diagnosis Assessment Notes Treatment Notes Treatment Clinical Notes Sep, Pernicious anemia (ICD-10 - D51.0) sones Other 03-09-2023 Evaluation note* Encounter Date Diagnosis Assessment Notes Treatment Notes Treatment Clinical Notes Aug, Local infection of the skin and subcutaneous tissue, unspecified (ICD-10 - L08.9) Aug, Other injury of unspecified body region, initial encounter (ICD-10 - T14.8XXA) sones Other 03-09-2023 Evaluation note* Encounter Date Diagnosis Assessment Notes Treatment Notes Treatment Clinical Notes Aug, Cellulitis of female breast (ICD-10 - N61.0) Aug, Breast abscess of female (ICD-10 - N61.1) Warm compresses, continue antibiotic coverage. Schedule breast US Refer to Surgery Aug, Hx of breast cancer (ICD-10 - Z85.3) sones Other 03-02-2023 Evaluation note* Encounter Date Diagnosis [...] Hx of breast cancer (ICD-10 - Z85.3) sones Other 01-31-2023 Evaluation note* Encounter Date Diagnosis Assessment Notes Treatment Notes Treatment Clinical Notes Jun, Pernicious anemia (ICD-10 - D51.0) sones Other 05-11-2022 History of Present illness Narrative* Genny Winters PA-C - 10/19/2021 1:30 PM EDT PATIENT NAME: Nora Parnell [facility] NO.: [id number] ATTENDING PHYSICIAN: Stephen Caballero MD DATE OF SERVICE: October 19, 2021 (Elements copied from Dr. Caballero's note dated October 19, 2020, have been reviewed and updated where appropriate, and all reflect current assessment and medical decision making during today's encounter, October 19, 2021) CC: Follow up Diagnosis: 1. Right breast cancer, invasive lobular carcinoma, HER-2/suresh negative ER and [place] strongly positive at 95%, diagnosed 2014 Treatment History: 1. Lumpectomy plus sentinel lymph node biopsy October 28, 2014. Invasive lobular carcinoma, 2.2 cm. 2 sentinel lymph nodes negative for involvement. ER [place] 95% positive, HER-2/suresh negative. 2. Right breast [...] Date Arthritis Breast cancer (HCC) Right; T2N0M0; ER/[place]+ HER2 COPD (chronic obstructive pulmonary disease) (HCC) [...] 2.2 cm, invasive lobular carcinoma, ER and [place] 95% positive, HER-2/suresh negative status post lumpectomy [...] CC: Noble Ferguson MD documented in [facility] encounterC[facility] Miscellaneous Notes* Telephone Encounter - Stephen [...] Thanks Sierra Beck RN documented in this encounterCleveland Clinic Avon HospitalDischarge summary Author Jim Clya [facility] December 01, 2023 3:07pm Note Date/Time December 01, 2023 3:07 pm [facility] [address] [place] [address] Discharge Summary Signed Patient: Nora Parnell MR#: [id number] : 1940 Acct:[id number] Age/Sex: 83 / F Adm Date: 4 Loc: Room: 2Q7632-[address]: Jim Clay DO Copies to: DO Jim Jean-Baptiste, DO~ Providers Date of Admission: 11/30/23 Date of [...] presented to hospital last night due to with a chief complaint of exertional dyspnea and chest pain. Troponins were negative on admission, EKG was without any signs of injury ischemia or infarction hide patient does have a significant history positive for CAD status post stents in 2018, she is scheduled for an echocardiogram and stress test thisupcoming week with her level vial grinder in [place]. She was self admitted to hospital for [...] The patient was instructed to see her level vial grinder this upcoming week for her stress test [...] Blister With Device 1 inh INHALATION DAILY iueiyn-jncpkste-zys C-E-herbal 1,250 mcg-50 mg -67.5 mg-15 mg [...] % (Auto) 62.6, Lymph % (Auto) 22.3, Sunflower % (Auto) 11.5, Eos % (Auto) 2.8, Baso % (Auto) 0.8, Nucleat RBC Rel Count 0.1, Neut # (Auto) 4.0, Lymph # (Auto) 1.4, Sunflower # (Auto) 0.7, Eos # (Auto) 0.2, [...] H Documented By: Jim Clay DO 12/01/23 1502 Signed By: <Electronically signed by Jim Clay DO> 12/01/23 1508 [facility] Work Phone: Evaluation note* Diagnosis Encounter for screening mammogram for malignant neoplasm of breast- Primary Other screening mammogram [facility] Other Evaluation note* Diagnosis Onset Date Resolution Status History of breast cancer acu te History of radiation exposure acute Nonhealing surgical wound ac [facility] Work Phone: Evaluation note* Diagnosis Onset Date Resolution Status Essential hypertension acute Cerumen impaction noneactive History of breast cancer acu te History of radiation exposure acute Nonhealing surgical wound ac [facility] Work Phone: Evaluation note* Diagnosis Onset Date Resolution Status History of breast cancer acu te History of radiation exposure acute Nonhealing surgical wound ac yo ASHD (arteriosclerotic heart disease) acute Chronic bronchitis acute Edema acute Essential hypertension acute History of breast cancer acu te Hypothyroidism acute Pernicious anemia acute Stage 3a chronic kidney disease acute [facility] Work Phone: Evaluation note* Diagnosis Onset Date Resolution Status ASHD (arteriosclerotic heart disease) acute Chronic bronchitis acute Essential hypertension acute History of breast cancer acu te Hypothyroidism acute Lower extremity edema acute Pernicious anemia acute Stage 3a chronic kidney disease acute Chest pain acute Essential hypertension acute [facility] Work Phone: Evaluation note* Diagnosis Onset Date Resolution Status ASHD (arteriosclerotic heart disease) acute Chronic bronchitis acute Essential hypertension acute History of breast cancer acu te Hypothyroidism acute Lower extremity edema acute Pernicious anemia acute Stage 3a chronic kidney disease acute Chest pain acute Essential hypertension acute Lower extremity edema acute [facility] Work Phone: Evaluation note* Diagnosis Onset Date Resolution Status ASHD (arteriosclerotic heart disease) acute Chronic bronchitis acute Essential hypertension acute History of breast cancer acu te Hypothyroidism acute Lower extremity edema acute Pernicious anemia acute Stage 3a chronic kidney disease acute Chest pain acute Essential hypertension acute Lower extremity edema acute ASHD (arteriosclerotic heart disease) acute Chronic bronchitis acute Essential hypertension acute Lower extremity edema acute Stage 3a chronic kidney disease acute [facility] Work Phone: History general Narrative - Reported* [...] cell skin cancer Hospitalization History SEE ABOVE sones Other History general Narrative - Reported* Type [...] History SEE ABOVE Hospitalization History SEE ABOVE sones Other History [facility] Other History general Narrative - Reported* Type [...] cell skin cancer Hospitalization History SEE ABOVE [place] [facility] Other [employer] general Narrative - Reported* Type Description Date [...] ulcera tion 01/2023 Hospitalization History SEE ABOVE sones Other History general Narrative - Reported* Type [...] ulcera tion 05/2023 Hospitalization History SEE ABOVE sones Other Progress note Author Luis Angel Saucedo [facility] August 28, 2023 9:48am Note Date/Time August 28, 2023 9:4 8am [facility] [address] [place] [address] Wound Center Provider Note Signed Patient: Nora Parnell MR#: [id number] : 1940 Acct:[id number] Age/Sex: 83 / F Copies to: MD [...] hematoma. She did see her surgeon in [place] who did her previous surgery. Patient had some punch biopsies performed to rule out cancer which apparently did not show any cancer. She did develop nonhealing wound at this site. She underwent a couple debridements and closures in [place] but each time, the wound did open up and start draining. The last debridement was last month. The surgeon who did her previous surgerieshas since left and the patient did see Dr. Kurtz last week. He did remove some remaining sutures and the patient was then referred here. Patient is currently having dressing changes performed at the [facility]. She has an open right breast wound [...] did wound start?: 08/2022 Mode of Arrival/ Account General Manager: Personal vehicle Lives with:: Alone Appetite Description: Within Normal Limits Who helps w/ dressing change?: [facility] Care Dept Why Do You Need Help?: Can't Reach Ulcer Smoking Status: Former smoker Constitutional Constitutional: Denies fever(s) [facility] Medical History Stage 3a chronic kidney [...] 0 CM Sq: 0.000 Surrounding Tissue Appearance: [place] Surrounding Tissue Temp: Warm Drainage Amount: None [...] Dictated By: Luis Angel Saucedo MD DD/ [id number] Signed By: <Electronically signed by MD Luis Angel Saucedo> 08/28/23 0948 [facility] Work Phone: Reason for referral (narrative)* Diagnostic Procedure Only (Routine) - Pending Review Specialty Diagnoses / Procedures Referred By Jann caraballo Referred To Contact [facility] Diagnoses Encounter for screening mammogram for malignant neoplasm of breast Procedures KAREN SCREENING SCREENING MAMMOGRAPHY BI 2-VIEW BREAST INC CAD Genny Winters PA-C [address] [place] [address] [place] [address] [facility] [address] [place] [id number] Referral ID Status Reason Start Date Expiration Date Visits Requested Visits Authorized [id number] Pending Review Auto-Generat ed Referral 10/19/2021 11/18/[address] [facility] for referral (narrative)* Reason *FU 09/04 Referral for right breast abscess Diagnosis 1 Breast abscess of fe male (N61.1) Referral Organization [facility] roma Referring Provider First Name Noble Referring Provider Last Name Marty Referring Provider Specialty Internal Me dicbran Referred Organization Unknown Facility Referred Provider Checo Reis Referred Provider Specialty Surgery Referral Priority Routine General Notes Toddjoe Kelly 01:34:05 PM >received today, notes locked, and referral faxed Kelly Gilbert 08/28/2022 12:05:49 PM >FAXED FIRST ATTEMPT LETTER Clinical Notes . . sones Other Summary Purpose Family History No Family History Records Found Relationship Condition Age at Onset Recorded Date/T nithin father Myocardial infarction Unknown sister Malignant neoplasm Unknown Relationship Condition Age at Onset Recorded Date/T nithin father Myocardial infarction Unknown sister Malignant neoplasm Unknown father Unknown Not Specified Unknown Relationship Condition Age at Onset Recorded Date/T nithin father Myocardial infarction Unknown sister Malignant neoplasm Unknown father Unknown mother Unknown Advance Directives No Advanced Directives Records [...] Documentation B-12 SHOT ear [place] Open Wound b12 Reason for Visit Essential hypertensi on Cerumen impaction History of breast cancer History of radiation exposure Nonhealing surgical wound Chief Complaint Amb Documentation B-12 SHOT ear [place] Open Wound b12 b12 Reason for Visit Essential hypertensi on Cerumen impaction History of breast cancer History of radiation exposure Nonhealing surgical wound Chief Complaint ear fl[place] Open Wound b12 b12 B12 shot Reason for Visit Essential hypertensi on Cerumen impaction History of breast cancer History of radiation exposure Nonhealing surgical wound Chief Complaint Open Wound b12 b12 B12 shot 4 month follow up Reason for Visit History of breast ca ncer History of radiation exposure Nonhealing surgical wound ASHD (arteriosclerotic heart disease) Chronic bronchitis Edema Essential hypertension History of breast cancer Hypothyroidism Pernicious anemia Stage 3a chronic kidney disease Chief Complaint b12 b12 B12 shot 4 [...] Chest pain Essential hypertension Lower extremity edema Chief Complaint b12 B12 shot 4 month follow up Chest Pain Amb Documentation ER follow up Reason for Visit ASHD (arteriosclerot ic heart disease) Chronic bronchitis Essential hypertension History of breast cancer Hypothyroidism Lower extremity edema Pernicious anemia Stage 3a chronic kidney disease Chest pain Essential hypertension Lower extremity edema ASHD (arteriosclerotic heart disease) Chronic bronchitis Essential hypertension Lower extremity edema Stage 3a chronic kidney disease Chief Complaint b12 B12 shot 4 month follow up Chest Pain Amb Documentation ER follow up b12 Shot Reason for Visit ASHD (arteriosclerot ic heart disease) Chronic bronchitis History of breast cancer Hypothyroidism Pernicious anemia Stage 3a chronic kidney disease Chest pain Acute on chronic heart failure with preserved ejection fraction (HFpEF) ASHD (arteriosclerotic heart disease) Stage 3a chronic kidney disease Chest pain Chief Complaint B12 shot 4 month follow up Chest Pain Amb Documentation ER follow up b12 Shot B12 Shot Reason for Visit ASHD (arteriosclerot ic heart disease) Chronic bronchitis History of breast cancer Hypothyroidism Pernicious anemia Stage 3a chronic kidney disease Chest pain Acute on chronic heart failure with preserved ejection fraction (HFpEF) ASHD (arteriosclerotic heart disease) Stage 3a chronic kidney disease Chest pain Additional Source Comments INFORMATION SOURCE (unrecogn ized section and content) DATE CREATED AUTHOR 09/16/2018 [facility] DATE CREATED AUTHOR AUTHOR'S ORGANIZ ATION 08/23/2022 [facility] DATE CREATED AUTHOR AUTHOR'S ORGANIZ ATION 11/17/2022 [facility] DATE CREATED AUTHOR AUTHOR'S ORGANIZ ATION 06/27/2023 [facility] DATE CREATED AUTHOR AUTHOR'S ORGANIZ ATION 12/11/2023 [facility] DATE CREATED AUTHOR AUTHOR'S ORGANIZ ATION 01/17/2024 [facility] Source Comments (unrecognize d section and content) In the event this informatio n is protected by the Federal Confidentiality of Alcohol and Drug Abuse Patient Records regulations: The Federal rules restrict any use of the information to criminally investigate or prosecute any alcohol or drug abuse patient.[facility] the event this information is protected by the Federal Confidentiality of Alcohol and Drug Abuse Patient Records regulations: The Federal rules restrict any use of the information to criminally investigate or prosecute any alcohol or drug abuse patient.[facility] Reason for Visit (unrecogniz ed section [...] End: September 06, 2023 Lesly Dye APRN NP-C Attending Provider Act wyatt Start: September 06, 2023 End: September 06, 2023 Team Status: Inactive Member Role Status Dates Noble Ferguson DO Primary Care Provide r, Attending Provider Active Start: October 08, 2023 End: October 08, 2023 Team Status: Inactive Member Role Status Dates Noble Ferguson DO Primary Care Provide r, Attending Provider Active Start: November 08, 2023 End: November 08, 2023 Bakery Sales Clerk Relationship Specialty Start Date End Date Noble Ferguson DO PCP - General Internal Medicine 11/09/14 Bakery Sales Clerk Relationship Specialty Start Date End Date Noble Ferguson PCP - General Internal Medicine 11/09/14 Team [...] nding Provider Active Start: November 30, 2023 Team Status: Inactive Member Role Status Dates Nika Fagan DO Emergency Provider Active Start: November 30, 2023 End: December 01, 2023 Noble Ferguson DO Primary Care Provider Active Start: November 30, 2023 End: December 01, 2023 Jim Clay DO Admit Provider, Atte nding Provider Active Start: November 30, 2023 End: December 01, 2023 Team Status: Active Member Role Status Dates Noble Ferguson DO Primary Care Provider Active Start: December 03, 2023 RADHA Donovan Attending Provider Active St art: December 03, 2023 Team Status: Inactive Member Role Status Dates Noble Ferguson , Primary Care Provide r, Attending Provider Active Start: December 07, 2023 End: December 07, 2023 Team Status: Inactive Member Role Status Dates Noble Ferguson , DO Primary Care Provide r, Attending Provider Active Start: December 10, 2023 End: December 10, 2023 Team Status: Inactive Member Role Status Dates Noble Ferguson , DO Primary Care Provide r, Attending Provider Active Start: January 14, 2024 End: January 14, 2024 Goals (unrecognized section and content) Goals may [...] BE BASED ON THE PRIMARY CLINICAL RECORDS. [facility]. provides no warranty or guarantee of the accuracy or completeness of information in this document.
[2024-01-17 11:15] LABS: Anion Gap 15.5; BUN Creatinine Ratio 39.3; Calcium 9.5 mg/dL (8.5-10.1); Carbon Dioxide 22.3 mmol/L (21.0-32.0); Chloride 108 mmol/L (98-107); Estimated GFR (African America 43 (>=60); Estimated GFR (Non-African Ame 36 (>=60); Glucose 133 mg/dL (74-106); Potassium 4.8 mmol/L (3.5-5.1); Sodium 141 mmol/L (136-145)
== END 2024-01-17 10:02 | disposition home or self-care (01) ==
LOC: LAB 10:02
PROVIDERS: PCP Internal Medicine; Visit Provider Internal Medicine Interventional Cardiology
DX: I11.0 Hypertensive heart disease with heart failure (principal)
CPT/HCPCS: 36415; 80048

== ENCOUNTER 2024-01-24 11:27 | Outpatient (OUT) | payer MEDICARE, SELFPAY ==
[2024-01-24 14:15] LABS: Anion Gap 16.2; BUN Creatinine Ratio 21.1; Calcium 9.4 mg/dL (8.5-10.1); Carbon Dioxide 22.4 mmol/L (21.0-32.0); Chloride 109 mmol/L (98-107); Estimated GFR (African America 58 (>=60); Estimated GFR (Non-African Ame 48 (>=60); Glucose 97 mg/dL (74-106); Potassium 4.6 mmol/L (3.5-5.1); Sodium 143 mmol/L (136-145)
== END 2024-01-24 11:28 | disposition home or self-care (01) ==
LOC: LAB 11:30
PROVIDERS: PCP Internal Medicine; Visit Provider Internal Medicine Interventional Cardiology
DX: I11.0 Hypertensive heart disease with heart failure (principal)
CPT/HCPCS: 36415; 80048

== ENCOUNTER 2024-02-25 12:39 | Outpatient (OUT) | payer MEDICARE, SELFPAY ==
[2024-02-25 12:48] LABS: Hemoglobin 12.6 g/dL (12.0-16.0)
--- NOTE | 2024-02-25 13:51 | RT_ITS ---
[facility] Test Date: 2024-02-25 Pat Name: LAWSON GIBBS Department: Room: - Gender: Female Down Filler: Lorraine Loja RRT : 1940 Requested By: MERCEDEZ HAYES Order Number: [id number] Reading MD: MERCEDEZ HAYES Interpretive Statements Although the FEV1 and FVC are reduced, the FEV1/FVC ratio is increased. The MVV is reduced. The FVC is reduced relative to the SVC indicating air trapping. The increased airway resistance and decreased specific conductance indicate a central airway disease. The TLC and SVC are reduced, but the FRC is normal. Following administration of bronchodilators, there is no significant response. The reduced diffusing capacity indicates a severe loss of functional alveolar capillary surface. Maldistribution of ventilation is indicated by the difference between the alveolar volume and the total lung capacity. Spirometry: FVC decreased 62% FEV1 decreased 63% FEV1/FVC normal 74 [id number] decreased 70% MVV decreased 63% Volumes: TLC decreased 77% RV/TLC normal 113% DLCO: decreased 32% Impression: Mild obstructive defect without significant bronchodilator response Decreased TLC consistent with mild restrictive defect Decreased DLCO consider ILD, pulmonary hypertension, chronic PE Electronically Signed On 02-26-2024 22:42:13 EDT by MERCEDEZ HAYES
[2024-02-25] MEDS: ALBUTEROL SULFATE 2.5 MG/3 ML VIAL NEB IH (13:53)
== END 2024-02-25 12:40 | disposition home or self-care (01) ==
PROVIDERS: PCP Internal Medicine; Visit Provider Internal Medicine
DX: J42 Unspecified chronic bronchitis (principal)
CPT/HCPCS: 36415; 85018; 94060; 94726; 94729

== ENCOUNTER 2024-03-05 12:35 | Outpatient (OUT) | payer MEDICARE, SELFPAY ==
--- OUTSIDE RECORDS SUMMARY | 2024-03-05 12:39 | XMS_ITS | CCD ---
Author Organization [facility] CliniSywv Care Team Providers Care Tent Assembler Name Role Phone PHYSICIAN, DEFAULT Admitting Unavailable PHYSICIAN, DEFAULT Attending Unavailable UNKNOWN, PROVIDER Admitting Unavailable UNKNOWN, PROVIDER Attending Unavailable SELF, REFERRED Referring Unavailable SELF, REFERRED Primary Care Unavailable Ball DO, Noble Hollingsworth Primary Care Provider Gayle Wade Unavailable Checo [...] TAMLYN ., RITU Attending Unavailable BALL, DR NEWSMOE Primary Care Unavailable TAMLYN ., RITU Admitting [...] Care Unavailable TAMLYN ., RITU Attending Unavailable RITU TAYLOR Admitting Unavailable DR NOBLE HAYES Primary Care Unavailable DO Noble Hayes Primary Care Provider [phone] MD Luis Angel Saucedo Attending Provider DO Noble Hayes Primary Care Provider [phone] MD Luis Angel Saucedo Attending Provider DO Nika Fagan Emergency Provider [phone] DO Noble Hayes Primary Care Provider [phone] DO Jim Clay Admit Provider DO Jim Clay Attending Provider [phone] Luis Angel Saucedo Admitting Unavailable Luis Angel Saucedo Attending Unavailable Noble Hayes Primary Care Unavailable Lewis, Luis Angel Admitting Unavailable Luis Angel Saucedo Attending Unavailable Noble Hayes Primary Care Unavailable Jim Clay Admitting Unavailable Jim Clay Attending Unavailable Noble Hayes Primary Care Unavailable Lewis, Luis Angel Admitting Unavailable Lewis, Luis Angel Attending Unavailable Noble Hayes Primary Care Unavailable STEFANIE GAYTAN Attending Unavailable BALA ZEPEDA Attending Unavailable BALA ZEPEDA Attending Unavailable Allergies Allergy Classification Reported Allergen(s) Allergy Type Date of Onset Reaction(s) Facility penicillAMINE (3 sources) penicillAMINE Drug Allergy 08-10-19 24 [facility] Penicillins (antibiotic) (3 sources) Penicillins Drug Allergy 08-10-19 24 [facility] Sulfonamides (antibiotic) (6 sources) Sulfonamides (Antibiotic) Drug Allergy 08-10-19 24 [facility] Sulfur (3 sources) Sulfur Drug Allergy 08-10-19 24 [facility] (15 sources) Penicillins; 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: [PENICILLINS] Drug allergy (disorder) 04-28-20 14 [facility] Repository (15 sources) Sulfonamides (Antibiotic); 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: [SULFA (SULFONAMIDE ANTIBIOTICS)] Drug allergy (disorder) 06-11-18 94 [facility] Repository (17 sources) Penicillins Drug Allergy 05-15-20 14 Unknown [facility] (17 sources) Sulfonamides (Antibiotic) Drug Allergy 05-15-20 14 Unknown [facility] (20 sources) guaiFENesin Drug Allergy Unknown [facility] Other (20 sources) penicillAMINE Drug Allergy 08-10-19 24 Unknown, Hives [facility] (20 sources) Sulfacetamide / Sulfur Drug Allergy Unknown [facility] [place] Other (15 sources) Dextromethorphan Drug Allergy 07-22-19 14 Unknown [facility] Other (15 sources) guaiFENesin Drug Allergy 07-22-19 14 Unknown [facility] Other (1 source) Penicillin Drug Allergy Unknown [facility] Other (15 sources) Sulf-10 Drug allergy Unknown [facility] [place] Other (1 source) patient allergy list reviewed by nurse or physicia Propensity to adverse reactions 05-09-20 13 Comment:Done [employer] Other (1 source) Allergies Reconciled Propensity to adverse reactions Unknown [facility] [place] Other (10 sources) Sulfacetamide; 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: [sulfacetamide] Drug Allergy 08-10-19 [facility] (10 sources) Sulfur; 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: [sulfur] Drug Allergy 08-10-19 [facility] (1 source) penicillAMINE Drug Allergy 11-30-19 [facility] Repository (1 source) Penicillins Drug allergy (disorder) 11-30-19 [facility] Repository (1 source) Sulfonamides (Antibiotic) Drug allergy (disorder) 11-30-19 [facility] Repository Medications Current Medications Medication Drug Class(es) [...] by mouth every 6 hours as needed. [id number] 200 actuat albuterol 0.09 mg/actuat metered dose inhaler (20 sources) beta2-Adrenergic Agonist Start: 05-17-2023 End: 02-19-2024 Albuterol Sulfate Active 2 PUFF INHALATION As Directed 8.5 February 19, 2024 10:45am take 1 puff(s) by in halation every [...] Take 40 mg by mouth once daily. Tqvxnx-Mvhfzgpn-Qho C-E-Herbal (14 sources) Start: 3 take 2 tablets by mouth once daily Ouoaxr-Bqrlzilh-Wcx C-E-Herbal Active 2 TAB PO Daily after supper April 24, 2023 1:00am Start: 04-24-2023 take 2 tablets by mo ut once daily Lsgoew-Cpxrwwpw-Rlc C-E-Herbal Active 2 TAB PO Daily after supper April 24, 2023 12:00am bumetanide 0.5 mg oral tablet (4 sources) Loop Diuretic Start: 12-26-2022 take 1 tablet by mouth every twenty-four hours Bumetanide 0.5 MG 1 tablet Orally Once a day for 5 days Dec, Active calcium carbonate 1500 mg / cholecalciferol 0.01 mg oral tablet (14 sources) Vitamin D Start: 04-24-2023 take 1 [...] day Active doxazosin 2 mg oral tablet (14 sources) alpha-Adrenergic Melanie Start: 11-26-2023 End: 11-30-2023 take 2 mg by mouth once daily at bedtime Doxazosin Active 2 MG PO Daily at bedtime November 30, 2023 12:00am doxycycline hyclate 100 mg oral capsule (20 sources) Tetracycline-class Drug Start: 10-31-2023 take 1 capsule by mouth every twelve hours Doxycycline Hyclate 100 MG 1 capsule Orally Twice a day for 10 days Mar, Active Start: 08-10-2022 take 1 capsule by mo [facility] twice daily Doxycycline Hyclate 100 MG 1 capsule Orally twice daily for 7 days Aug, Active Fiber (20 sources) Fiber - as direc katia Orally Active Wzhzegjioxv-Ajggmtvdr-Nayihu er (14 sources) Start: 04-24-2023 Sumgqunddnp-Lszynhgcd-Lndnyk er (Trelegy Ellipta) 200-62.5-25 mcg Blister With Device Active 1 INH INHALATION Daily April 24, 2023 1:00am Start: 04-24-2023 Fluticasone-Um eclidin-Vilanter (Trelegy Ellipta) 200-62.5-25 mcg Blister With Device Active 1 INH INHALATION Daily April 24, 2023 12:00am inulin 2000 mg chewable tablet (16 sources) Start: 04-24-2023 take 1 tablet by [...] 60 mg by mouth once daily. levothyroxine (20 sources) l-Thyroxine Start: 01-29-20 take 1 tablet by mouth once daily Levothyroxine Active 0 .ROUTE .COMPLEX January 29, 2024 1:10pm TAKE ONE TABLET BY MOUTH ONCE DAILY ON AN EMPTY STOMACH Start: 04-24-2023 End: 01-29-2024 take 88 ug by mouth once daily in the morning Levothyroxine Discontinued 88 MCG PO Every morning April 24, 2023 1:00am January 29, 2024 1:10pm Levothyroxine So dium 88 MCG TAKE 1 TABLET DAILY ON EMPTY STOMACH Active Levothyroxine 10 0 mcg cap Take 75 mcg by mouth once daily. 0 Active Comment on above: Take 75 mcg by mouth once daily. lisinopril 40 mg oral tablet (20 sources) Angiotensin Converting Enzyme Inhibitor Start: 02-19-2024 take 40 mg by mouth once daily Lisinopril Active 40 MG PO Daily February 19, 2024 10:49am Start: 12-10-2023 End: 02-19-2024 take 30 mg by mouth once daily Lisinopril Discontinued 30 MG PO Daily January 03, 2024 11:34am February 19, 2024 11:02am Start: 12-10-2023 End: 01-03-2024 take 20 mg [...] succinate 25 mg extended release oral tablet (6 sources) beta-Adrenergic Melanie Start: take 12.5 mg by mouth once daily Metoprolol Succinate Active 12.5 MG PO Daily December 01, 2023 12:00am spironolactone 25 mg oral tablet (6 sources) Aldosterone Antagonist Start: take 25 mg [...] (Vitamin B-12) (Vitamin B-12) 100 mcg/mL Solution (14 sources) Start: 04-24-2023 End: 05-17-2023 Cyanocobalamin (Vitamin [...] APPLY TO SCALP NE EDED FOR ITCHINESS furosemide 20 mg oral tablet (3 sources) Loop Diuretic Start: 01-01-2024 End: 02-19-2024 take 20 mg by mouth twice daily Furosemide Discontinued 20 MG PO Twice daily January 01, 2024 12:00am February 19, 2024 10:25am ketoconazole 20 mg/ml medicated shampoo (2 sources) Azole Antifungal Start: 08-27-2020 ketoconazole (NIZORAL) 2 % shampoo APPLY WASH TO SCALP EVERY OTHER DAY. LET SIT FOR 5 MINUTES BEFORE RINSING. 0 08/27/2020 Active Comment on above: APPLY WASH TO SCALP EVERY OTHER DAY. LET SIT FOR 5 MINUTES BEFORE RINSING. temazepam 30 mg oral capsule (20 sources) Benzodiazepine Start: 02-01-2023 End: 01-28-2024 take 30 mg by mouth once daily at bedtime Temazepam Discontinued 30 MG PO Daily at bedtime April 24, 2023 1:00am August 03, 2023 10:01am Start: 09-07-2022 take 1 capsule by mo ut once daily at bedtime Temazepam 30 mg TAKE ONE CAPSULE BY MOUTH ONCE DAILY AT BEDTIME for Aug, Active Start: 09-24-2020 take 1 capsule by mo uth once daily at bedtime temazepam (RESTORIL) 30 mg cap Take 30 mg by mouth daily at bedtime. 0 09/24/2020 Active Comment on above: Take 30 mg by mouth daily at bedtime. torsemide 20 mg oral tablet (8 sources) Loop Diuretic Start: 11-19-19 End: 11-30-19 take 20 mg by mouth once daily in the morning Torsemide Discontinued 20 MG PO Every morning 12 15November 19, 2023 12:00am November 30, 2023 3:03pm [...] Onset: 11-02-2022 Episodic Congestive heart failure; nonhypertensive (20 sources) Acute exacerbation of chronic congestive heart [...] deficiency] 08-06-2023 Episodic Deficiency and other anemia (19 sources) Vitamin B12 deficiency anemia due to [...] for immunization] Episodic Miscellaneous mental health disorders (12 sources) Primary insomnia; 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: [Primary insomnia] 08-03-2023 Chronic Nonmalignant breast conditions (2 sources) Fibrocystic disease of breast; 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: [Diffuse cystic mastopathy of unspecified breast] Chronic Nonmalignant breast conditions (20 sources) Cellulitis of breast; 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: [Mastitis without abscess] Onset: 08-22-2022 Episodic Nonspecific chest pain (20 sources) Chest pain; 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: [Chest pain, unspecified] Onset: 07-25-2018 11-30-2023 Episodic Nutritional deficiencies (2 sources) Vitamin D deficiency; 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: [Vitamin D deficiency, unspecified] Onset: 11-08-2017 Chronic Osteoarthritis (20 sources) Osteoarthritis of right knee joint; 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: [Unilateral primary osteoarthritis, right knee] Onset: [birth year]-1959 Chronic Osteoporosis (2 sources) Primary osteoporosis; 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: [Age-related osteoporosis without current pathological fracture] Chronic Other aftercare (1 source) 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; 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 OF ASPIRIN] Onset: 09-03-2018 Episodic Other aftercare (2 sources) Long-term current use of drug therapy; 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: [Other fpc (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] Episodic Other circulatory disease [...] unspecified; 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: [Insomnia] Episodic Residual codes; unclassified (14 sources) H/O: radiation exposure; 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: [Personal history of irradiation] 04-24-2023 Episodic Residual codes; unclassified (7 sources) Personal history of irradiation; 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: [Personal history of irradiation, presenting hazards to health] 05-15-2023 Episodic Residual codes; unclassified (8 sources) Edema; 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: [Edema, unspecified] 11-19-2023 Episodic [...] 11-28-2019 Episodic Other aftercare (1 source) Other fpc (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; 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: [OTH MCFP CURRENT DRUG THERAPY] Onset: 01-27-2022 Episodic Other [...] Test Name Value Interpretation Reference Range Facility Estimated glomerular filtrat ion rate (GFR) non- Americanon 01-24-2024 GFR/1.73 sq M.predicted among non-blacks MDRD (S/P/Bld) [Vol rate/Area] 48 mL/min/{1.73_m2} Low >=60 [facility] Laboratory - Chemistry and C hemistry - challengeon 01-24-2024 Calcium [Mass/Vol] 9.4 mg/dL 8.5-10.1 [facility] Chloride [Moles/Vol] 109 mmol/L High 98-107 [facility] CO2 [Moles/Vol] 22.4 mmol/L 21.0-32.0 [facility] Creatinine [Mass/Vol] 1.09 mg/dL High 0.55-1.02 [facility] GFR/1.73 sq M.predicted MDRD (S/P/Bld) [Vol rate/Area] 58 mL/min/{1.73_m2} Low >=60 [facility] Glucose [Mass/Vol] 97 mg/dL 74-106 [facility] Potassium [Moles/Vol] 4.6 mmol/L 3.5-5.1 [facility] Sodium [Moles/Vol] 143 mmol/L 136-145 [facility] Urea nitrogen [Mass/Vol] 23.0 mg/dL High 7.0-18.0 [facility] Urea nitrogen/Creatinine [Mass ratio] 21.1 mg/mg [facility] Serum or plasma anion gap de terminationon 01-24-2024 Anion gap [Moles/Vol] 16.2 mmol/L [facility] 36on 01-17-2024 36 I reviewed the blood pressure readings and the blood test from 01/17/2024. Blood pressure is better. Renal function is improving. Still not at baseline. Please ask her to continue to hold diuretics. She should get BMP in 1 week. Normal [facility] Estimated glomerular filtrat ion rate (GFR) non- Americanon 01-17-2024 GFR/1.73 sq M.predicted among non-blacks MDRD (S/P/Bld) [Vol rate/Area] 36 mL/min/{1.73_m2} Low >=60 [facility] Laboratory - Chemistry and C hemistry - challengeon 01-17-2024 Calcium [Mass/Vol] 9.5 mg/dL 8.5-10.1 [facility] Chloride [Moles/Vol] 108 mmol/L High 98-107 [facility] CO2 [Moles/Vol] 22.3 mmol/L 21.0-32.0 [facility] Creatinine [Mass/Vol] 1.40 mg/dL High 0.55-1.02 [facility] GFR/1.73 sq M.predicted MDRD (S/P/Bld) [Vol rate/Area] 43 mL/min/{1.73_m2} Low >=60 [facility] Glucose [Mass/Vol] 133 mg/dL High 74-106 [facility] Potassium [Moles/Vol] 4.8 mmol/L 3.5-5.1 [facility] Sodium [Moles/Vol] 141 mmol/L 136-145 [facility] Urea nitrogen [Mass/Vol] 55.0 mg/dL High 7.0-18.0 [facility] Urea nitrogen/Creatinine [Mass ratio] 39.3 mg/mg [facility] Serum or plasma anion gap de terminationon 01-17-2024 Anion gap [Moles/Vol] 15.5 mmol/L [facility] Telephoneon 01-17-2024 Telephone [phone] Clari Gibbs 1940 F Date Provider Department Center 01/17/2024 BALA MORGAN [facility]ARD [facility] Family History Problem Relation Age of Onset No Known Problems Mother No Known Problems Father Family Status - Relation Status Age at Mother Father [place] 36on 01-15-2024 36 Spoke with patient a nd told her I faxed BMP order to [facility]. She will have it drawn on she said. [place] Estimated glomerular filtrat ion rate (GFR) non- Americanon 01-14-2024 GFR/1.73 sq M.predicted among non-blacks MDRD (S/P/Bld) [Vol rate/Area] 22 mL/min/{1.73_m2} Low >=60 [facility] Laboratory - Chemistry and C hemistry - challengeon 01-14-2024 Calcium [Mass/Vol] 9.2 mg/dL 8.5-10.1 [facility] Chloride [Moles/Vol] 105 mmol/L 98-107 [facility] CO2 [Moles/Vol] 22.6 mmol/L 21.0-32.0 [facility] Creatinine [Mass/Vol] 2.10 mg/dL High 0.55-1.02 [facility] GFR/1.73 sq M.predicted MDRD (S/P/Bld) [Vol rate/Area] 27 mL/min/{1.73_m2} Low >=60 [facility] Glucose [Mass/Vol] 126 mg/dL High 74-106 [facility] Potassium [Moles/Vol] 5.2 mmol/L High 3.5-5.1 [facility] Sodium [Moles/Vol] 140 mmol/L 136-145 [facility] Urea nitrogen [Mass/Vol] 76.0 mg/dL High 7.0-18.0 [facility] Comment on above: RESULTS CALLED TO AN ELENO MANDEL @BY Gemini Carpenter at 1334 Urea nitrogen/Creatinine [Mass ratio] 36.2 mg/mg [facility] Serum or plasma anion gap de terminationon 01-14-2024 Anion gap [Moles/Vol] 17.6 mmol/L [facility] Telephoneon 01-14-2024 Telephone [phone] Clari Gibbs ty L 1940 F Date Provider Department Center 01/14/2024 Yamil-SONA MANDEL EMIL Jacques Family History Problem Relation Age of Onset No Known Problems Mother No Known Problems Father Family Status - Relation Status Age at Mother Father Normal [facility] Office Visiton 12-31-2023 Follow-up visit [id number] Clari Gibbs ty L 1940 F Date Provider Department Center 12/31/2023 BALA MORGAN EMIL Jacques Family History Problem Relation Age of Onset No Known Problems Mother No Known Problems Father Family Status - Relation Status Age at Mother Father Level of Service:56583 MO OFFICE/OUTPATIENT ESTABLISHED MOD MDM 30 MIN Normal [facility] 36on 12-03-2023 36 Patient called to garfield reardon aware that she presented to [facility] over the weekend for chest pain. I have scanned the records into celebrity chef entrepreneur media personality for your review. You ordered an echo 2 weeks ago when you saw her. They did one while she was inpatient. She is scheduled in a week or so at [facility] for the stress test you ordered. Thanks! Normal [facility] US venous duplex LE BIon US venous duplex LE BI [facility] [place] [place] [address] Ultrasound Report Signed Patient: Nora Gibbs MR#: [id number] : 1940 Acct:[id number] Age/Sex: 83 / F ADM Date: 11/30/23 Loc: Room: [address] [place] [address] Type: DIS INOo Attending Dr: Jim Clay [...] Joe Moscoso MD12/03/2023 3:59 PM Dictation Location: [place] [address] Tech: Betty Mccarty Transcribed By: ALEXANDER 12/03/23 9934 Dictated By: Joe Moscoso MD 12/03/23 6069 Signed By: 12/03/23 3802 Normal [facility] A1C with Estimated Average G gary 12-01-2023 Glucose [Mass/Vol] 137 mg/dL Normal [facility] Comment on above: Result Comment: PERF ORMED BY: [facility] [address] [place] [address] PATHOLOGIST PROJECT PROGRAM MANAGER JUDY RASMUSSEN M.D. Performed By: #### L IPID, HS TROP, A1C WTH eA, MG, BMP, CBC ####[address] Automated basophil %Ordered By: Jim Clay on 12-01-2023 Basophils/100 WBC (Bld) 0.8 % . [facility] Comment on above: Performed By: #### L IPID, HS TROP, A1C WTH eA, MG, BMP, CBC ####[address] Automated basophil countOrde red By: Jim Clay on 12-01-2023 Basophils (Bld) [#/Vol] 0.0 10*3/uL 0.0-0.2 [facility] Comment on above: Result Comment: PERF ORMED BY: [facility] [address] [place] [address] PATHOLOGIST PROJECT PROGRAM MANAGER JUDY RASMUSSEN M.D. Performed By: #### L IPID, HS TROP, A1C WTH eA, MG, BMP, CBC ####[address] Automated blood monocyte cou ntOrdered By: Jim Clay on 12-01-2023 Monocytes (Bld) [#/Vol] 0.7 10*3/uL 0.0-0.8 [facility] Comment on above: Performed By: #### L IPID, HS TROP, A1C WTH eA, MG, BMP, CBC ####[address] Automated eosinophil %Ordere d By: Jim Clay on 12-01-2023 Eosinophils/100 WBC (Bld) 2.8 % . [facility] Comment on above: Performed By: #### L IPID, HS TROP, A1C WTH eA, MG, BMP, CBC ####[address] Automated eosinophil countOr dered By: Jim Clay on 12-01-2023 Eosinophils (Bld) [#/Vol] 0.2 10*3/uL 0.0-0.45 [facility] Comment on above: Performed By: #### L IPID, HS TROP, A1C WTH eA, MG, BMP, CBC ####[place] [address] [address] Automated monocyte %Ordered By: Jim Clay on 12-01-2023 Monocytes/100 WBC (Bld) 11.5 % . [facility] Comment on above: Performed By: #### L IPID, HS TROP, A1C WTH eA, MG, BMP, CBC ####[place] [address] [address] Automated neutrophil %Ordere d By: Jim Clay on 12-01-2023 Neutrophils/100 WBC (Bld) 62.6 % . [facility] Comment on above: Performed By: #### L IPID, HS TROP, A1C WTH eA, MG, BMP, CBC ####[place] [address] [address] Basic Metabolic Panelon 11-10 Creatinine Clr Calc Pharmacy 47.06 Normal [facility] Comment on above: Performed By: #### L IPID, HS TROP, A1C WTH eA, MG, BMP, CBC ####[place] [address] GFR/1.73 sq M.predicted MDRD (S/P/Bld) [Vol rate/Area] mL/min/{1.73_m2} Normal [facility] Comment on above: Performed By: #### L IPID, HS TROP, A1C WTH eA, MG, BMP, CBC ####[place] [address] Calcium [Mass/volume] in Ser um or PlasmaOrdered By: Jim Clay on 12-01-2023 Calcium [Mass/Vol] 8.7 mg/dL 8.6-10.3 [facility] Comment on above: Performed By: #### L IPID, HS TROP, A1C WTH eA, MG, BMP, CBC ####[facility] [id number] [place] [address] [place] Carbon dioxide, total [Moles /volume] in Serum or PlasmaOrdered By: Jim Clay on 12-01-2023 CO2 [Moles/Vol] 22.8 mmol/L 21.0-31.0 [facility] Comment on above: Performed By: #### L IPID, HS TROP, A1C WTH eA, MG, BMP, CBC ####[facility] [id number] [place] [address] [place] Chloride [Moles/volume] in S tyron or PlasmaOrdered By: Jim Clay on 12-01-2023 Chloride [Moles/Vol] 112 mmol/L High 98-107 [facility] Comment on above: Performed By: #### L IPID, HS TROP, A1C WTH eA, MG, BMP, CBC ####[facility] [place] [address] [place] Cholesterol [Mass/volume] in Serum or PlasmaOrdered By: Jim Clay on 12-01-2023 Cholesterol [Mass/Vol] 109 mg/dL Low 140-200 [facility] Comment on above: Chol less than 200 m g/dl low riskChol 201-239 mg/dl borderline riskChol 240 mg/dl and greater high risk Result Comment: Chol less than 200 mg/dl low risk Chol 201-239 mg/dl borderline risk Chol 240 mg/dl and greater high risk Performed By: #### L IPID, HS TROP, A1C WTH eA, MG, BMP, CBC ####[place] [address] [place] [address] [place] Cholesterol in LDL Calc [Mas s/Vol]Ordered By: Jim Clay on 12-01-2023 Cholesterol in LDL [Mass/Vol] 37 mg/dL 0-100 [facility] Comment on above: LDL ATP III CLASSIFI CATIONLDL less than 100 mg/dL OptimalLDL 100-129 mg/dL Near or above optimalLDL 130-159 mg/dL Borderline highLDL 160-189 mg/dL HighLDL greater than 189 mg/dL Very high Cholesterol in VLDL Calc [Ma ss/Vol]Ordered By: Jim Clay on 12-01-2023 Cholesterol in VLDL [Mass/Vol] 34 mg/dL [facility] Complete Blood Count Auto Di ffon 12-01-2023 Mean Corpuscular HGB Conc 33.4 g/dL Normal 32.0-35.0 [facility] Comment on above: Performed By: #### L IPID, HS TROP, A1C WTH eA, MG, BMP, CBC ####[facility] [id number] [place] [address] [facility] NRBC% 0.1 /100{WBC} Normal 0-0.5 [facility] Comment on above: Performed By: #### L IPID, HS TROP, A1C WTH eA, MG, BMP, CBC ####[place] [address] [place] [address] [facility] Creatinine [Mass/volume] in Serum or PlasmaOrdered By: Jim Clay on 12-01-2023 Creatinine [Mass/Vol] 0.84 mg/dL 0.60-1.20 [facility] Comment on above: Performed By: #### L IPID, HS TROP, A1C WTH eA, MG, BMP, CBC ####[facility] [id number] [place] [address] [facility] ECH echo transthoracicon ECH echo transthoracic [facility] Main [place] [address] [place] [address] Echocardiogram Signed Patient: Nora Gibbs MR#: [id number] : 1940 Acct:[id number] Age/Sex: 83 / F ADM Date: 11/30/23 Loc: Room: [address] [place] [address] Type: ADM INOo Attending Dr: Jim Clay [...] cm2 TARIQ(V,D): 2.2 cm2 ___ Transcribed By: SCV Performed At: 12/01/23 0832 Signed By: Margarito Ballesteros MD 12/01/23 1449 Normal [facility] Erythrocyte distribution wid th [Ratio] by Automated countOrdered By: Jim Clay on 12-01-2023 Erythrocyte distribution width (RBC) [Ratio] 13.4 % 11.9-15.3 [facility] Comment on above: Performed By: #### L IPID, HS TROP, A1C WTH eA, MG, BMP, CBC ####[facility] [id number] [place] [id number] [place] Erythrocytes [#/volume] in B lood by Automated countOrdered By: Jim Clay on 12-01-2023 RBC (Bld) [#/Vol] 3.81 10*6/uL 3.60-5.00 [facility] Comment on above: Performed By: #### L IPID, HS TROP, A1C WTH eA, MG, BMP, CBC ####[facility] [id number] [place] [address] [facility] Glucose [Mass/volume] in Ser um or PlasmaOrdered By: Jim Clay on 12-01-2023 Glucose [Mass/Vol] 100 mg/dL 70-100 [facility] Comment on above: ADA recommended refe rence rangeRandom Glucose Reference Range is dependent on time and content of last meal. Glucose of more than 200 mg/dL in a nonstressed, ambulatory subject supports the diagnosis of Diabetes Mellitus. Result Comment: [place] Glucose Reference Range is dependent on time and content of last meal. Glucose of more than 200 mg/dL in a nonstressed, ambulatory subject supports the diagnosis of Diabetes Mellitus. ADA recommended reference range Performed By: #### L IPID, HS TROP, A1C WTH eA, MG, BMP, CBC ####[place] [address] [address] Glucose mean value [Mass/vol ume] in Blood Estimated from glycated hemoglobinOrdered By: Jim Clay on 12-01-2023 Average glucose Estimated from glycated hemoglobin (Bld) [Mass/Vol] 137 mg/dL [facility] Hematocrit [Volume Fraction] of Blood by Automated countOrdered By: Jim Clay on 12-01-2023 Hematocrit (Bld) [Volume fraction] 34.9 % 34.0-46.4 [facility] Comment on above: Performed By: #### L IPID, HS TROP, A1C WTH eA, MG, BMP, CBC ####[place] [address] [address] Hemoglobin A1c percentageOrd ered By: Jim Clay on 12-01-2023 HbA1c (Bld) [Mass fraction] 6.4 % High 4.3-5.6 [facility] Comment on above: Increased risk for d iabetes: 5.7 - 6.4diabetes: >6.4glycemic control for adults with diabetes: <7.0 Result Comment: Incr eased risk for diabetes: 5.7 - 6.4 diabetes: >6.4 glycemic control for adults with diabetes: <7.0 Performed By: #### L IPID, HS TROP, A1C WTH eA, MG, BMP, CBC ####[address] Hemoglobin [Mass/volume] in BloodOrdered By: Jim Clay on 12-01-2023 Hemoglobin (Bld) [Mass/Vol] 11.7 g/dL Low 11.8-15.4 [facility] Comment on above: Performed By: #### L IPID, HS TROP, A1C WTH eA, MG, BMP, CBC ####[address] Leukocytes [#/volume] correc katia for nucleated erythrocytes in Blood by Automated counOrdered By: Jim Clay on 12-01-2023 WBC corrected for nucl RBC Auto (Bld) [#/Vol] 6.4 10*3/uL 3.8-11.6 [facility] Leukocytes [#/volume] in Blo od by Automated countOrdered By: Jim Clay on 12-01-2023 WBC (Bld) [#/Vol] 6.4 10*3/uL 3.8-11.6 [facility] Comment on above: Performed By: #### L IPID, HS TROP, A1C WTH eA, MG, BMP, CBC ####[facility] [place] [address] [facility] Lipid Panelon 12-01-2023 LDL Cholesterol,Calculated 37 mg/dL Normal 0-100 [facility] Comment on above: Result Comment: LDL ATP III CLASSIFICATION LDL less than 100 mg/dL Optimal LDL 100-129 mg/dL Near or above optimal LDL 130-159 mg/dL Borderline high LDL 160-189 mg/dL High LDL greater than 189 mg/dL Very high Performed By: #### L IPID, HS TROP, A1C WTH eA, MG, BMP, CBC ####[place] [address] [address] Triglyceride w/Reflex 171 mg/dL High 0-149 [facility] Comment on above: Result Comment: TRIG ATP III CLASSIFICATION TRIG less than 150 mg/dL Normal TRIG 150-199 mg/dL Borderline high TRIG 200-500 mg/dL High TRIG greater than 500 mg/dL Very high Standard traceable to the Center for Disease Conrtrol and Prevention (CDC) test method. Performed By: #### L IPID, HS TROP, A1C WTH eA, MG, BMP, CBC ####[facility] [place] [id number] [facility] VLDL CHOLESTEROL 34 mg/dL Normal [facility] Comment on above: Performed By: #### L IPID, HS TROP, A1C WTH eA, MG, BMP, CBC ####[place] [address] [place] [id number] [facility] Lymphocytes [#/volume] in Bl ood by Automated countOrdered By: Jim Clay on 12-01-2023 Lymphocytes (Bld) [#/Vol] 1.4 10*3/uL 1.00-4.8 [facility] Comment on above: Performed By: #### L IPID, HS TROP, A1C WTH eA, MG, BMP, CBC ####[address] Lymphocytes/100 leukocytes i n Blood by Automated countOrdered By: Jim Clay on 12-01-2023 Lymphocytes/100 WBC (Bld) 22.3 % . [facility] Comment on above: Performed By: #### L IPID, HS TROP, A1C WTH eA, MG, BMP, CBC ####[address] MCH [Entitic mass] by Automa katia countOrdered By: Jim Clay on 12-01-2023 MCH (RBC) [Entitic mass] 30.5 pg 24.7-34.3 [facility] Comment on above: Performed By: #### L IPID, HS TROP, A1C WTH eA, MG, BMP, CBC ####[address] MCHC Auto (RBC) [Mass/Vol]Or dered By: Jim Clay on 12-01-2023 MCHC (RBC) [Mass/Vol] 33.4 g/dL 32.0-35.0 [facility] MCV [Entitic volume] by Auto mated countOrdered By: Jim Clay on 12-01-2023 MCV (RBC) [Entitic vol] 91.5 fL 80-100 [facility] Comment on above: Performed By: #### L IPID, HS TROP, A1C WTH eA, MG, BMP, CBC ####[address] Magnesium [Mass/volume] in S tyron or PlasmaOrdered By: Jim Clay on 12-01-2023 Magnesium [Mass/Vol] 1.7 mg/dL Low 1.9-2.7 [facility] Comment on above: Performed By: #### L IPID, HS TROP, A1C WTH eA, MG, BMP, CBC ####[address] [place] [address] [place] Neutrophils [#/volume] in Bl ood by Automated countOrdered By: Jim Clay on 12-01-2023 Neutrophils (Bld) [#/Vol] 4.0 10*3/uL 1.8-7.7 [facility] Comment on above: Performed By: #### L IPID, HS TROP, A1C WTH eA, MG, BMP, CBC ####[facility] [id number] No Panel InformationOrdered By: Jim Clay on 12-01-2023 Estimated GFR (CKD-EPI) > 60.0 mL/Min [facility] Creatinine Clearance (Chem 47.06 [facility] Nucleated erythrocytes [Pres ence] in Blood by Automated countOrdered By: Jim Clay on 12-01-2023 Nucleated RBC Auto Ql (Bld) 0.1 /100{WBC} 0-0.5 [facility] Platelet mean volume [Entiti c volume] in Blood by Automated countOrdered By: Jim Clay on 12-01-2023 Platelet mean volume (Bld) [Entitic vol] 10.0 fL 6.3-10.7 [facility] Comment on above: Performed By: #### L IPID, HS TROP, A1C WTH eA, MG, BMP, CBC ####[place] [address] [address] Platelets [#/volume] in Bloo d by Automated countOrdered By: Jim Clay on 12-01-2023 Platelets (Bld) [#/Vol] 203 10*3/uL 150-450 [facility] Comment on above: Performed By: #### L IPID, HS TROP, A1C WTH eA, MG, BMP, CBC ####[place] [address] [address] Potassium [Moles/volume] in Serum or PlasmaOrdered By: Jim Clay on 12-01-2023 Potassium [Moles/Vol] 4.3 mmol/L 3.5-5.1 [facility] Comment on above: Performed By: #### L IPID, HS TROP, A1C WTH eA, MG, BMP, CBC ####[place] [address] Serum or plasma anion gap de terminationOrdered By: Jim Clay on 12-01-2023 Anion gap [Moles/Vol] 11.5 mmol/L 6.0-15.0 [facility] Comment on above: Performed By: #### L IPID, HS TROP, A1C WTH eA, MG, BMP, CBC ####[place] [address] [place] [id number] [facility] Serum or plasma high density lipoprotein (HDL) cholesterol measurementOrdered By: Jim Clay on 12-01-2023 Cholesterol in HDL [Mass/Vol] 38 mg/dL - [facility] Comment on above: HDL CHOL ATP-III CLA SSIFICATION Cardiovascular RiskHDL > or equal to 60 mg/dL LOWHDL < 40 mg/dL HIGH Result Comment: HDL CHOL ATP-III CLASSIFICATION Cardiovascular Risk HDL > or equal to 60 mg/dL LOW HDL < 40 mg/dL HIGH Performed By: #### L IPID, HS TROP, A1C WTH eA, MG, BMP, CBC ####[place] [address] Serum or plasma total choles terol/high density lipoprotein (HDL) cholesterol mass ratOrdered By: Jim Clay on 12-01-2023 Cholesterol.total/Chol esterol in HDL [Mass ratio] 2.9 {ratio} <5.0 [facility] Comment on above: Result Comment: PERF ORMED BY: [facility] [address] [place] [address] PATHOLOGIST PROJECT PROGRAM MANAGER JUDY RASMUSSEN M.D. Performed By: #### L IPID, HS TROP, A1C WTH eA, MG, BMP, CBC ####[place] [address] [place] [id number] [facility] Sodium [Moles/volume] in Ser um or PlasmaOrdered By: Jim Clay on 12-01-2023 Sodium [Moles/Vol] 142 mmol/L 136-145 [facility] Comment on above: Performed By: #### L IPID, HS TROP, A1C WTH eA, MG, BMP, CBC ####[place] [address] [place] [id number] [facility] Triglyceride [Mass/volume] i n Serum or PlasmaOrdered By: Jim Clay on 12-01-2023 Triglyceride [Mass/Vol] 171 mg/dL High 0-149 [facility] Comment on above: TRIG ATP III CLASSIF ICATIONTRIG less than 150 mg/dL NormalTRIG 150-199 mg/dL Borderline highTRIG 200-500 mg/dL High TRIG greater than 500 mg/dL Very highStandard traceable to the Center for Disease Conrtrol and Prevention (CDC) test method. Troponin I High Sensitivityo n 12-01-2023 Troponin I High Sensitivity 9.5 pg/mL Normal 0.0-15.0 [facility] Comment on above: Result Comment: PERF ORMED BY: [facility] [address] [place] [address] PATHOLOGIST PROJECT PROGRAM MANAGER JUDY RASMUSSEN M.D. Performed By: #### L IPID, HS TROP, A1C WTH eA, MG, BMP, CBC ####[place] [address] Troponin I.cardiac [Mass/vol ume] in Serum or Plasma by Detection limit <= 0.01 ng/Ordered By: Jim Clay on 12-01-2023 Troponin I.cardiac DL <= 0.01 ng/mL [Mass/Vol] 9.5 pg/mL 0.0-15.0 [facility] Urea nitrogen [Mass/volume] in Serum or PlasmaOrdered By: Jim Clay on 12-01-2023 Urea nitrogen [Mass/Vol] 21 mg/dL 7-25 [facility] Comment on above: Performed By: #### L IPID, HS TROP, A1C WTH eA, MG, BMP, CBC ####[facility] [place] [id number] [facility] Activated partial thrombopla stin time (aPTT) in platelet poor plasma by coagulation aOrdered By: Nika Fagan on 11-30-2023 aPTT Coag (PPP) [Time] 29.1 s 25.1-36.5 [facility] Comment on above: A hematocrit value g reater than 55% may lead to inaccurate results in coagulation testing. Patients having hematocrit values >55% require a special collection tube for coagulation studies. Please contact the laboratory at [phone] for redraw instructions. Alanine aminotransferase [En zymatic activity/volume] in Serum or PlasmaOrdered By: Nika Fagan on 11-30-2023 ALT [Catalytic activity/Vol] 20 U/L 7-52 [facility] Comment on above: Performed By: #### C BC, BNP, PTT, DDIMER, HS TROP, PT, CMP #### [facility] [address] [place] [address] [place] Albumin [Mass/volume] in Ser um or Plasma by Bromocresol green (BCG) dye binding methoOrdered By: Nika Fagan on 11-30-2023 Albumin BCG dye [Mass/Vol] 4.1 g/dL 3.5-5.7 [facility] Alkaline phosphatase [Enzyma tic activity/volume] in Serum or PlasmaOrdered By: Nika Fagan on 11-30-2023 ALP [Catalytic activity/Vol] 89 U/L 34-104 [facility] Comment on above: Performed By: #### C BC, BNP, PTT, DDIMER, HS TROP, PT, CMP #### [facility] [address] [place] [id number] [place] Aspartate aminotransferase [ Enzymatic activity/volume] in Serum or PlasmaOrdered By: Nika Fagan on 11-30-2023 AST [Catalytic activity/Vol] 25 U/L 13-39 [facility] Comment on above: Performed By: #### C BC, BNP, PTT, DDIMER, HS TROP, PT, CMP #### [facility] [address] [place] [address] [place] Automated basophil %Ordered By: Nika Fagan on 11-30-2023 Basophils/100 WBC (Bld) 0.6 % Normal . [facility] Comment on above: Performed By: #### C BC, BNP, PTT, DDIMER, HS TROP, PT, CMP #### [address] Automated basophil countOrde red By: Nika Brown on 11-30-2023 Basophils (Bld) [#/Vol] 0.0 10*3/uL Normal 0.0-0.2 [facility] Comment on above: Result Comment: PERF ORMED BY: [place] [address] PATHOLOGIST PROJECT PROGRAM MANAGER JUDY RASMUSSEN M.D. Performed By: #### C BC, BNP, PTT, DDIMER, HS TROP, PT, CMP #### [address] Automated blood monocyte cou ntOrdered By: Nika Fagan on 11-30-2023 Monocytes (Bld) [#/Vol] 0.6 10*3/uL Normal 0.0-0.8 [facility] Comment on above: Performed By: #### C BC, BNP, PTT, DDIMER, HS TROP, PT, CMP #### [address] Automated eosinophil %Ordere d By: Nika Fagan on 11-30-2023 Eosinophils/100 WBC (Bld) 2.8 % Normal . [facility] Comment on above: Performed By: #### C BC, BNP, PTT, DDIMER, HS TROP, PT, CMP #### [address] Automated eosinophil countOr dered By: Nika Fagan on 11-30-2023 Eosinophils (Bld) [#/Vol] 0.2 10*3/uL Normal 0.0-0.45 [facility] Comment on above: Performed By: #### C BC, BNP, PTT, DDIMER, HS TROP, PT, CMP #### [address] Automated monocyte %Ordered By: Nika Fagan on 11-30-2023 Monocytes/100 WBC (Bld) 9.8 % Normal . [facility] Comment on above: Performed By: #### C BC, BNP, PTT, DDIMER, HS TROP, PT, CMP #### [facility] [address] [place] [address] Automated neutrophil %Ordere d By: Nika Fagan on 11-30-2023 Neutrophils/100 WBC (Bld) 66.7 % Normal . [facility] Comment on above: Performed By: #### C BC, BNP, PTT, DDIMER, HS TROP, PT, CMP #### [address] BNP ser/plasOrdered By: Mono Fagan on 11-30-2023 Natriuretic peptide B (Bld) [Mass/Vol] 274.0 pg/mL High 5-100 [facility] Comment on above: Result Comment: PERF ORMED BY: [place] [address] PATHOLOGIST PROJECT PROGRAM MANAGER JUDY RASMUSSEN M.D. Performed By: #### C BC, BNP, PTT, DDIMER, HS TROP, PT, CMP #### [address] Bilirubin.total [Mass/volume ] in Serum or PlasmaOrdered By: Nika Fagan on 11-30-2023 Bilirubin [Mass/Vol] 0.5 mg/dL 0.3-1.0 [facility] Comment on above: Performed By: #### C BC, BNP, PTT, DDIMER, HS TROP, PT, CMP #### [address] angio chest PE protocolon 11-30-2023 CT angio chest PE protocol [facility] [place] [address] CT Scan Report Signed Patient: Nora Gibbs MR#: [id number] : 1940 Acct:[id number] Age/Sex: 83 / F ADM Date: 11/30/23 Loc: ER Room: Type: [facility] ER Attending Dr: Copies to: [...] Mahendra Chandler M.D.11/30/2023 12:06 PM Dictation Location: [place] [address] Transcribed By: [facility] 11/30/23 1206 Dictated By: Mahendra Chandler DO 11/30/23 1200 Signed By: 11/30/23 1206 Normal [facility] Calcium [Mass/volume] in Ser um or PlasmaOrdered By: Nika Fagan on 11-30-2023 Calcium [Mass/Vol] 9.4 mg/dL Normal 8.6-10.3 [facility] Comment on above: Performed By: #### C BC, BNP, PTT, DDIMER, HS TROP, PT, CMP #### [facility] [address] [place] [address] Carbon dioxide, total [Moles /volume] in Serum or PlasmaOrdered By: Nika Fagan on 11-30-2023 CO2 [Moles/Vol] 20.0 mmol/L Low 21.0-31.0 [facility] Comment on above: Performed By: #### C BC, BNP, PTT, DDIMER, HS TROP, PT, CMP #### [address] Chloride [Moles/volume] in S tyron or PlasmaOrdered By: Nika Fagan on 11-30-2023 Chloride [Moles/Vol] 111 mmol/L High 98-107 [facility] Comment on above: Performed By: #### C BC, BNP, PTT, DDIMER, HS TROP, PT, CMP #### [address] Complete Blood Count Auto Di ffon 11-30-2023 Mean Corpuscular HGB Conc 33.0 g/dL Normal 32.0-35.0 [facility] Comment on above: Performed By: #### C BC, BNP, PTT, DDIMER, HS TROP, PT, CMP #### [address] Monocytes/100 WBC (Bld) 16.37 % Normal 0.00-20.00 [facility] Comment on above: Performed By: #### C BC, BNP, PTT, DDIMER, HS TROP, PT, CMP #### [address] NRBC% 0.1 /100{WBC} Normal 0-0.5 [facility] Comment on above: Performed By: #### C BC, BNP, PTT, DDIMER, HS TROP, PT, CMP #### [address] Comprehensive Metabolic Pane ventura 11-30-2023 Albumin [Mass/Vol] 4.1 g/dL Normal 3.5-5.7 [facility] Comment on above: Performed By: #### C BC, BNP, PTT, DDIMER, HS TROP, PT, CMP #### [address] Creatinine Clr Calc Pharmacy 43.90 Normal [facility] Comment on above: Result Comment: PERF ORMED BY: [place] [address] PATHOLOGIST PROJECT PROGRAM MANAGER JUDY RASMUSSEN M.D. Performed By: #### C BC, BNP, PTT, DDIMER, HS TROP, PT, CMP #### [address] GFR/1.73 sq M.predicted MDRD (S/P/Bld) [Vol rate/Area] mL/min/{1.73_m2} Normal [facility] Comment on above: Performed By: #### C BC, BNP, PTT, DDIMER, HS TROP, PT, CMP #### [address] Creatinine [Mass/volume] in Serum or PlasmaOrdered By: Nika Fagan on 11-30-2023 Creatinine [Mass/Vol] 0.91 mg/dL Normal 0.60-1.20 [facility] Comment on above: Performed By: #### C BC, BNP, PTT, DDIMER, HS TROP, PT, CMP #### [address] D-Dimer High Sensitivityon 0 11-30-2023 D-Dimer High Sensitivity 734 ng/mL High 0-243 [facility] Comment on above: Result [...] coagulation studies. Please contact the laboratory at [phone] for redraw instructions. PERFORMED BY: [place] [address] PATHOLOGIST PROJECT PROGRAM MANAGER JUDY RASMUSSEN M.D. Performed By: #### C BC, BNP, PTT, DDIMER, HS TROP, PT, CMP ####[facility] [id number] ECG 12 lead ECGon 11-30-2023 ECG 12 lead ECG [facility] Main [place] [address] [place] [address] Electrocardiograph Report Signed Patient: Nora Gibbs MR#: [id number] : 1940 Acct:[id number] Age/Sex: 83 / F ADM Date: 11/30/23 Loc: Room: [address] [place] [address] Type: ADM INOo Attending Dr: Jim Clay [...] Lateral leads Confirmed by Kole Damon DO ([id number]) on 11/30/2023 3:08:44 PM Referred By: Electronically Signed By:Kole Damon DO Transcribed By: MUS Signed By Kole Damon DO 4 1509 Normal [facility] Erythrocyte distribution wid th [Ratio] by Automated countOrdered By: Nika Fagan on 11-30-2023 Erythrocyte distribution width (RBC) [Ratio] 13.4 % Normal 11.9-15.3 [facility] Comment on above: Performed By: #### C BC, BNP, PTT, DDIMER, HS TROP, PT, CMP #### [facility] [address] Erythrocytes [#/volume] in B lood by Automated countOrdered By: Nika Fagan on 11-30-2023 RBC (Bld) [#/Vol] 4.17 10*6/uL Normal 3.60-5.00 [facility] Comment on above: Performed By: #### C BC, BNP, PTT, DDIMER, HS TROP, PT, CMP #### [facility] [address] Fibrin D-dimer [Presence] in Platelet poor plasma by Latex agglutinationOrdered By: Nika Fagan on 11-30-2023 Fibrin D-dimer LA Ql (PPP) 734 ng/mL High 0-243 [facility] Comment on above: The reference range [...] coagulation studies. Please contact the laboratory at [phone] for redraw instructions. Glucose [Mass/volume] in Ser um or PlasmaOrdered By: Nika Fagan on 11-30-2023 Glucose [Mass/Vol] 121 mg/dL High 70-100 [facility] Comment on above: ADA recommended refe rence rangeRandom Glucose Reference Range is dependent on time and content of last meal. Glucose of more than 200 mg/dL in a nonstressed, ambulatory subject supports the diagnosis of Diabetes Mellitus. Result Comment: [place] Glucose Reference Range is dependent on time and content of last meal. Glucose of more than 200 mg/dL in a nonstressed, ambulatory subject supports the diagnosis of Diabetes Mellitus. ADA recommended reference range Performed By: #### C BC, BNP, PTT, DDIMER, HS TROP, PT, CMP #### [facility] [address] Hematocrit [Volume Fraction] of Blood by Automated countOrdered By: Nika Fagan on 11-30-2023 Hematocrit (Bld) [Volume fraction] 37.9 % Normal 34.0-46.4 [facility] Comment on above: Performed By: #### C BC, BNP, PTT, DDIMER, HS TROP, PT, CMP #### [facility] [address] Hemoglobin [Mass/volume] in BloodOrdered By: Nika Fagan on 11-30-2023 Hemoglobin (Bld) [Mass/Vol] 12.5 g/dL Normal 11.8-15.4 [facility] Comment on above: Performed By: #### C BC, BNP, PTT, DDIMER, HS TROP, PT, CMP #### [address] INR in Platelet poor plasma by Coagulation assayOrdered By: Nika Fagan on 11-30-2023 INR Coag (PPP) [Relative time] 1.0 {INR} [facility] Comment on above: INR Therapeutic Rang [...] PTT, DDIMER, HS TROP, PT, CMP #### [address] Leukocytes [#/volume] correc katia for nucleated erythrocytes in Blood by Automated counOrdered By: Nika Fagan on 11-30-2023 WBC corrected for nucl RBC Auto (Bld) [#/Vol] 6.1 10*3/uL 3.8-11.6 [facility] Leukocytes [#/volume] in Blo od by Automated countOrdered By: Nika Fagan on 11-30-2023 WBC (Bld) [#/Vol] 6.1 10*3/uL Normal 3.8-11.6 [facility] Comment on above: Performed By: #### C BC, BNP, PTT, DDIMER, HS TROP, PT, CMP #### [address] Lymphocytes [#/volume] in Bl ood by Automated countOrdered By: Nika Fagan on 11-30-2023 Lymphocytes (Bld) [#/Vol] 1.2 10*3/uL Normal 1.00-4.8 [facility] Comment on above: Performed By: #### C BC, BNP, PTT, DDIMER, HS TROP, PT, CMP #### [address] Lymphocytes/100 leukocytes i n Blood by Automated countOrdered By: Nika Fagan on 11-30-2023 Lymphocytes/100 WBC (Bld) 20.1 % Normal . [facility] Comment on above: Performed By: #### C BC, BNP, PTT, DDIMER, HS TROP, PT, CMP #### [facility] [address] [place] [address] MCH [Entitic mass] by Automa katia countOrdered By: Nika Fagan on 11-30-2023 MCH (RBC) [Entitic mass] 30.0 pg Normal 24.7-34.3 [facility] Comment on above: Performed By: #### C BC, BNP, PTT, DDIMER, HS TROP, PT, CMP #### [address] MCHC Auto (RBC) [Mass/Vol]Or dered By: Nika Fagan on 11-30-2023 MCHC (RBC) [Mass/Vol] 33.0 g/dL 32.0-35.0 [facility] MCV [Entitic volume] by Auto mated countOrdered By: Nika Fagan on 11-30-2023 MCV (RBC) [Entitic vol] 90.9 fL Normal 80-100 [facility] Comment on above: Performed By: #### C BC, BNP, PTT, DDIMER, HS TROP, PT, CMP #### [address] Monocyte distribution width [Entitic volume] in Blood by AutomatedOrdered By: Nika Fagan on 11-30-2023 Monocyte distribution width Auto (Bld) [Entitic vol] 16.37 % 0.00-20.00 [facility] Neutrophils [#/volume] in Bl ood by Automated countOrdered By: Nika Fagan on 11-30-2023 Neutrophils (Bld) [#/Vol] 4.1 10*3/uL Normal 1.8-7.7 [facility] Comment on above: Performed By: #### C BC, BNP, PTT, DDIMER, HS TROP, PT, CMP #### [address] No Panel InformationOrdered By: Nika Fagan on 11-30-2023 Estimated GFR (CKD-EPI) > 60.0 mL/Min [facility] Creatinine Clearance (Chem 43.90 [facility] Nucleated erythrocytes [Pres ence] in Blood by Automated countOrdered By: Nika Fagan on 11-30-2023 Nucleated RBC Auto Ql (Bld) 0.1 /100{WBC} 0-0.5 [facility] Partial Thromboplastin Timeo n 11-30-2023 aPTT Coag (Bld) [Time] 29.1 s Normal 25.1-36.5 [facility] Comment on above: Result Comment: A he matocrit value greater than 55% may lead to inaccurate results in coagulation testing. Patients having hematocrit values >55% require a special collection tube for coagulation studies. Please contact the laboratory at [phone] for redraw instructions. Performed By: #### C BC, BNP, PTT, DDIMER, HS TROP, PT, CMP #### [address] Platelet mean volume [Entiti c volume] in Blood by Automated countOrdered By: Nika Fagan on 11-30-2023 Platelet mean volume (Bld) [Entitic vol] 9.3 fL Normal 6.3-10.7 [facility] Comment on above: Performed By: #### C BC, BNP, PTT, DDIMER, HS TROP, PT, CMP #### [place] [address] [place] Platelets [#/volume] in Bloo d by Automated countOrdered By: Nika Fagan on 11-30-2023 Platelets (Bld) [#/Vol] 195 10*3/uL Normal 150-450 [facility] Comment on above: Performed By: #### C BC, BNP, PTT, DDIMER, HS TROP, PT, CMP #### [address] Potassium [Moles/volume] in Serum or PlasmaOrdered By: Nika Fagan on 11-30-2023 Potassium [Moles/Vol] 4.1 mmol/L Normal 3.5-5.1 [facility] Comment on above: Performed By: #### C BC, BNP, PTT, DDIMER, HS TROP, PT, CMP #### [address] Protein [Mass/volume] in Ser um or PlasmaOrdered By: Nika Fagan on 11-30-2023 Protein [Mass/Vol] 6.9 g/dL 6.4-8.9 [facility] Comment on above: Performed By: #### C BC, BNP, PTT, DDIMER, HS TROP, PT, CMP #### [address] Prothrombin time (PT)Ordered By: Nika Fagan on 11-30-2023 PT Coag (PPP) [Time] 11.6 s 9.0-12.9 [facility] Comment on above: A hematocrit value g reater than 55% may lead to inaccurate results in coagulation testing. Patients having hematocrit values >55% require a special collection tube for coagulation studies. Please contact the laboratory at [phone] for redraw instructions. Result Comment: A he matocrit value greater than 55% may lead to inaccurate results in coagulation testing. Patients having hematocrit values >55% require a special collection tube for coagulation studies. Please contact the laboratory at [phone] for redraw instructions. Performed By: #### C BC, BNP, PTT, DDIMER, HS TROP, PT, CMP #### [address] Serum globulin measurement b y calculation (mass/volume)Ordered By: Nika Fagan on Globulin (S) [Mass/Vol] 2.8 g/dL [facility] Comment on above: Performed By: #### C BC, BNP, PTT, DDIMER, HS TROP, PT, CMP #### [address] Serum or plasma albumin/glob ulin mass ratioOrdered By: Nika Fagan on 11-30-2023 Albumin/Globulin [Mass ratio] 1.5 {ratio} [facility] Comment on above: Performed By: #### C BC, BNP, PTT, DDIMER, HS TROP, PT, CMP #### [address] Serum or plasma anion gap de terminationOrdered By: Nika Fagan on 11-30-2023 Anion gap [Moles/Vol] 14.1 mmol/L Normal 6.0-15.0 [facility] Comment on above: Performed By: #### C BC, BNP, PTT, DDIMER, HS TROP, PT, CMP #### [address] Sodium [Moles/volume] in Ser um or PlasmaOrdered By: Nika Fagan on 11-30-2023 Sodium [Moles/Vol] 141 mmol/L Normal 136-145 [facility] Comment on above: Performed By: #### C BC, BNP, PTT, DDIMER, HS TROP, PT, CMP #### [address] Troponin I High Sensitivityo n 11-30-2023 Troponin I High Sensitivity 15.3 pg/mL High 0.0-15.0 [facility] Comment on above: Result Comment: PERF ORMED BY: [place] [address] PATHOLOGIST PROJECT PROGRAM MANAGER JUDY RASMUSSEN M.D. Performed By: #### H S TROP ####[address] Troponin I High Sensitivity 8.5 pg/mL Normal 0.0-15.0 [facility] Comment on above: Result Comment: PERF ORMED BY: [place] [address] PATHOLOGIST PROJECT PROGRAM MANAGER JUDY RASMUSSEN M.D. Performed By: #### H S TROP ####[address] Troponin I High Sensitivity 6.9 pg/mL Normal 0.0-15.0 [facility] Comment on above: Result Comment: PERF ORMED BY: [place] [address] PATHOLOGIST PROJECT PROGRAM MANAGER JUDY RASMUSSEN M.D. Performed By: #### C BC, BNP, PTT, DDIMER, HS TROP, PT, CMP #### [address] Troponin I.cardiac [Mass/vol ume] in Serum or Plasma by Detection limit <= 0.01 ng/Ordered By: Nika Fagan on 11-30-2023 Troponin I.cardiac DL <= 0.01 ng/mL [Mass/Vol] 8.5 pg/mL 0.0-15.0 [facility] Urea nitrogen [Mass/volume] in Serum or PlasmaOrdered By: Nika Fagan on 11-30-2023 Urea nitrogen [Mass/Vol] 24 mg/dL Normal 7-25 [facility] Comment on above: Performed By: #### C BC, BNP, PTT, DDIMER, HS TROP, PT, CMP #### [address] XR chest 2V*on 11-30-2023 XR chest 2V* [facility] [place] [address] [place] [id number] XRay Report Signed Patient: Nora Gibbs MR#: [id number] : 1940 Acct:[id number] Age/Sex: 83 / F ADM Date: 11/30/23 Loc: ER Room: Type: [facility] ER Attending Dr: Copies to: [...] Mathew Morton M.D.11/30/2023 11:41 AM Dictation Location: [place] [address] Transcribed By: [facility] 11/30/23 1141 Dictated By: Mathew Morton II, MD 11/30/23 1139 Signed By: 11/30/[address] [facility] Office Visiton 11-23-2023 Follow-up visit [id number] Clari Gibbs 1940 F Date Provider Department Center 11/23/2023 BALA MORGAN [facility] Family History Problem Relation Age of Onset No Known Problems Mother No Known Problems Father Family Status - Relation Status Age at Mother Father Level of Service:16949 MO OFFICE/OUTPATIENT ESTABLISHED MOD MDM 30 MIN Normal [facility] Basophils Auto (Bld) [#/Vol] on 11-20-2023 Basophils (Bld) [#/Vol] 0.1 10 3/uL 0.0-0.1 [facility] Basophils/100 WBC Auto (Bld) on 11-20-2023 Basophils/100 WBC (Bld) 0.6 % 0.2-2.0 [facility] Eosinophils/100 WBC Auto (Bl d)on 11-20-2023 Eosinophils/100 WBC (Bld) 2.4 % 0.9-7.0 [facility] Erythrocyte distribution wid th Auto (RBC) [Ratio]on 11-20-2023 Erythrocyte distribution width (RBC) [Ratio] 13.2 % 11.0-15.0 [facility] Estimated glomerular filtrat ion rate (GFR) non- Americanon 11-20-2023 GFR/1.73 sq M.predicted among non-blacks MDRD (S/P/Bld) [Vol rate/Area] 46 mL/min/{1.73_m2} Low >=60 [facility] Hematocrit Auto (Bld) [Volum e fraction]on 11-20-2023 Hematocrit (Bld) [Volume fraction] 41.6 % 36.0-48.0 [facility] Hemoglobin [Mass/volume] in Bloodon 11-20-2023 Hemoglobin (Bld) [Mass/Vol] 13.2 g/dL 12.0-16.0 [facility] Laboratory - Chemistry and C hemistry - challengeon 11-20-2023 Calcium [Mass/Vol] 9.4 mg/dL 8.5-10.1 [facility] Chloride [Moles/Vol] 106 mmol/L 98-107 [facility] CO2 [Moles/Vol] 26.3 mmol/L 21.0-32.0 [facility] Creatinine [Mass/Vol] 1.12 mg/dL High 0.55-1.02 [facility] GFR/1.73 sq M.predicted MDRD (S/P/Bld) [Vol rate/Area] 56 mL/min/{1.73_m2} Low >=60 [facility] Glucose [Mass/Vol] 108 mg/dL High 74-106 [facility] Natriuretic peptide B (Bld) [Mass/Vol] 491.0 pg/mL <=1800.0 [facility] Potassium [Moles/Vol] 4.2 mmol/L 3.5-5.1 [facility] Sodium [Moles/Vol] 141 mmol/L 136-145 [facility] TSH Qn 0.205 m[IU]/L Low 0.358-3.74 0 [facility] Urea nitrogen [Mass/Vol] 20.0 mg/dL High 7.0-18.0 [facility] Urea nitrogen/Creatinine [Mass ratio] 17.9 mg/mg [facility] Laboratory - Hematology and Cell countson 11-20-2023 Immature granulocytes/100 WBC (Bld) 0.1 % 0.0-0.5 [facility] Leukocytes [#/volume] correc katia for nucleated erythrocytes in Blood by Automated counon 11-20-2023 WBC corrected for nucl RBC Auto (Bld) [#/Vol] 8.0 10 3/uL 4.0-11.0 [facility] Lymphocytes Auto (Bld) [#/Vo l]on 11-20-2023 Lymphocytes (Bld) [#/Vol] 1.8 10 3/uL 1.2-3.8 [facility] Lymphocytes/100 WBC Auto (Bl d)on 11-20-2023 Lymphocytes/100 WBC (Bld) 22.3 % 20.5-60.0 [facility] MCH Auto (RBC) [Entitic mass ]on 11-20-2023 MCH (RBC) [Entitic mass] 29.3 pg 26.7-34.0 [facility] MCHC Auto (RBC) [Mass/Vol]on 11-20-2023 MCHC (RBC) [Mass/Vol] 31.7 g/dL 29.9-35.2 [facility] MCV Auto (RBC) [Entitic vol] on 11-20-2023 MCV (RBC) [Entitic vol] 92.4 fL 81.0-99.0 [facility] Monocytes Auto (Bld) [#/Vol] on 11-20-2023 Monocytes (Bld) [#/Vol] 0.9 10 3/uL High 0.3-0.8 [facility] Monocytes/100 WBC Auto (Bld) on 11-20-2023 Monocytes/100 WBC (Bld) 11.2 % 1.7-12.0 [facility] Neutrophils Auto (Bld) [#/Vo l]on 11-20-2023 Neutrophils (Bld) [#/Vol] 5.1 10 3/uL 1.4-6.5 [facility] Neutrophils/100 WBC Auto (Bl d)on 11-20-2023 Neutrophils/100 WBC (Bld) 63.4 % 43.0-75.0 [facility] No Panel Informationon 11-19 Eosinophils # (Auto) 0.2 10 3/uL 0.0-0.7 [facility] Immature Granulocyte # (Auto) 0.01 10 3/uL 0.00-0.03 [facility] Platelet mean volume Auto (B ld) [Entitic vol]on 11-20-2023 Platelet mean volume (Bld) [Entitic vol] 11.3 fL 9.5-13.5 [facility] Platelets Auto (Bld) [#/Vol] on 11-20-2023 Platelets (Bld) [#/Vol] 255 10 3/uL 150-450 [facility] RBC Auto (Bld) [#/Vol]on RBC (Bld) [#/Vol] 4.50 10 6/uL 4.20-5.40 [facility] Serum or plasma anion gap de terminationon 11-20-2023 Anion gap [Moles/Vol] 12.9 mmol/L [facility] ANTIMICROBIAL SUSCEPT-ANAERO BEon 05-28-2023 FINAL REPORT SEE NOTE Normal [facility] Comment on above: Order Comment: Speci men Type: MICROBIAL ISOLATE Ordering Facility: [facility] Address: [address] [place] [phone] Result Comment: Prev otella bergensis Organism identified [...] method. RUSTY M Beta-Lactamase Neg Performed By: [employer] [address] [place] [address] Supervisor [employer]: Paulino العراقي MD, PhD CLIA Number: [id number] Performed By: #### S USANA #### [facility] CLIA [id number] [address] [place] [address] #### [id number] #### [facility] CLIA [id number] [address] [place] [address] [place] Aerobic Cultureon 05-28-2023 Aerobic Culture Comment Tissue C S R breast Light Normal Skin Aries 2 Days Comment Tissue C S R breast ORGANISM: Prevotella bergensis (O:PREBER) Comments Sent to [facility] for Testing Quantity of Growth Light Growth Antimicrobial susceptibility testing could not be completed due to poor organism growth using the CLSI approved test method. Please see scanned report located in the Laboratory/Scanned Reports section of the EMR. Comment Tissue C S R breast Gram Stain Result No Bacteria Seen PERFORMED BY: [place] [id number] PATHOLOGIST PROJECT PROGRAM MANAGER JUDY RASMUSSEN M.D. Normal [facility] Comment on above: Performed By: #### A ERC ####[facility] [id number] [place] [id number] [facility] Bacterial susceptibility weller el BETTYE (Isol)on 05-28-2023 BLACT Negative Normal [facility] Comment on above: Order Comment: Speci men Type: MICROBIAL ISOLATE Ordering Facility: [facility] Address: [address] [place] [address] Performed By: #### S USANA #### [facility] CLIA [id number] [address] [place] [address] #### [id number] #### [facility] CLIA [id number] [address] [place], [place] [id number] [place] Microorganism identified Cx Nom (Unsp spec) [id number] Abnormal [facility] Comment on above: Order Comment: Speci men Type: MICROBIAL ISOLATE Ordering Facility: [facility] Address: [address] [place] [phone] Result Comment: Prev otella bergensis Susceptibility results have been completed by FRANKLYN. Performed By: #### S USANA #### [facility] CLIA [id number] [address] [place] [address] #### [id number] #### [facility] CLIA [id number] [address] [place] [address] [place] Basic Metabolic Panelon 05-11 Creatinine Clr Calc Pharmacy 44.56 Normal [facility] Comment on above: Result Comment: PERF ORMED BY: [place] [address] PATHOLOGIST PROJECT PROGRAM MANAGER JUDY RASMUSSEN M.D. Performed By: #### B MP #### [facility] [address] [place] [address] [place] GFR/1.73 sq M.predicted MDRD (S/P/Bld) [Vol rate/Area] mL/min/{1.73_m2} Normal [facility] Comment on above: Performed By: #### B MP #### [facility] [address] [place] [address] [place] Calcium [Mass/volume] in Ser um or PlasmaOrdered By: Shine Lea on 05-28-2023 Calcium [Mass/Vol] 9.3 mg/dL Normal 8.6-10.3 [facility] Comment on above: Performed By: #### B MP #### [facility] [address] [place] [address] [place] Carbon dioxide, total [Moles /volume] in Serum or PlasmaOrdered By: Shine Lea on 05-28-2023 CO2 [Moles/Vol] 22.9 mmol/L Normal 21.0-31.0 [facility] Comment on above: Performed By: #### B MP #### [facility] [address] Chloride [Moles/volume] in S tyron or PlasmaOrdered By: Shine Leonora on 05-28-2023 Chloride [Moles/Vol] 109 mmol/L High 98-107 [facility] Comment on above: Performed By: #### B MP #### [facility] [address] Creatinine [Mass/volume] in Serum or PlasmaOrdered By: Shine Verduzcoain on 05-28-2023 Creatinine [Mass/Vol] 0.89 mg/dL Normal 0.60-1.20 [facility] Comment on above: Performed By: #### B MP #### [facility] [address] Glucose [Mass/volume] in Ser um or PlasmaOrdered By: Shine Lea on 05-28-2023 Glucose [Mass/Vol] 113 mg/dL High 70-100 [facility] Comment on above: ADA recommended refe rence rangeRandom Glucose Reference Range is dependent on time and content of last meal. Glucose of more than 200 mg/dL in a nonstressed, ambulatory subject supports the diagnosis of Diabetes Mellitus. Result Comment: [place] Glucose Reference Range is dependent on time and content of last meal. Glucose of more than 200 mg/dL in a nonstressed, ambulatory subject supports the diagnosis of Diabetes Mellitus. ADA recommended reference range Performed By: #### B MP #### [facility] [address] [place] [id number] [place] 05-28-2023 L ----- Specimen: [id number] Received: 05/28/23 Status: RACHEALKarel Jenn Num: [id number] Spec Type: Surgical Subm Dr: Luis Angel Saucedo MD Tissues: A Debridement-Skin/Other Than Skin (POD RT BRST) Procedures: ISIDORO Gross/Micro L3 Age/ Patient Sex Location Account Attending Physician Nora Gibbs 83/F CO [id number] Luis Angel Saucedo MD SPEC NUM: [id number] RECD: 05/28/23 STATUS: HAMZAH DUNBAR NUM: [id number] NEDA: 05/28/[address] [facility] DR: Luis Angel Saucedo MD ENTERED: 05/28/[address] [facility] [address]: DELMIS TYPE: Surgical DEPT: S ENTERED BY: [id number] RECV BY: [id number] ORDERED: ISIDORO Gross/Micro L3 ORDERED: Jay CHAUDHRY/Micro [...] The microscopic examination confirms the diagnosis. Specimen: [id number] Received: 05/28/23 Status: HAMZAH Dunbar Num: [id number] Spec Type: Surgical Subm Dr: Luis Angel Saucedo MD Tissues: A Debridement-Skin/Other Than Skin (POD RT BRST) Procedures: ISIDORO Gross/Micro L3 Patient: Nora Gibbs [id number] (Continued) Specimen: [id number] Received: 05/28/23 (Continued) Signed (signature on file) Zacarias Hunt MD 05/29/23 1548 Specimen: [id number] Received: 05/28/23 Status: HAMZAH Dunbar Num: [id number] Spec Type: Surgical Subm Dr: Luis Angel Saucedo MD Tissues: A Debridement-Skin/Other Than Skin (POD RT BRST) Procedures: ISIDORO, Jay/Savanna L3 Patient: Nora Gibbs [id number] (Continued) Specimen: [id number] Received: 05/28/23 (Continued) CPT Codes 61214 Specimen: [id number] Received: 05/28/23 Status: HAMZAH Dunbar Num: [id number] Spec Type: Surgical Subm Dr: Luis Angel Saucedo MD Tissues: A Debridement-Skin/Other Than Skin (POD RT BRST) Procedures: ISIDORO, Gross/Savanna L3 Patient: Nora Gibbs [id number] (Continued) Signed (signature on file) Zacarias Hunt MD 05/29/23 1548 Normal [facility] Microorganism identified Cx Nom (Unsp spec)on 05-28-2023 CULTURE, ORGANISM ID [id number] [id number] Abnormal [facility] Comment on above: Order Comment: Aurora irizarry Type: MICROBIAL ISOLATE Ordering Facility: [facility] Address: [address] [place] [phone] Result Comment: Prev otella bergensis Performed By: #### 1 1475-1 #### [facility] CLIA [id number] [address] [place] [id number] [place] No Panel InformationOrdered By: Shine Verduzcoain on 05-28-2023 Estimated GFR (CKD-EPI) > 60.0 mL/Min [facility] Creatinine Clearance (Chem 44.56 [facility] Potassium [Moles/volume] in Serum or PlasmaOrdered By: Shine Verduzcoain on 05-28-2023 Potassium [Moles/Vol] 4.1 mmol/L Normal 3.5-5.1 [facility] Comment on above: Performed By: #### B MP #### [facility] [address] Serum or plasma anion gap de terminationOrdered By: Shine Verduzcoain on 05-28-2023 Anion gap [Moles/Vol] 12.2 mmol/L Normal 6.0-15.0 [facility] Comment on above: Performed By: #### B MP #### [address] Sodium [Moles/volume] in Ser um or PlasmaOrdered By: Shine Leonora on 05-28-2023 Sodium [Moles/Vol] 140 mmol/L Normal 136-145 [facility] Comment on above: Performed By: #### B MP #### [facility] [address] Urea nitrogen [Mass/volume] in Serum or PlasmaOrdered By: Shine Leonora on 05-28-2023 Urea nitrogen [Mass/Vol] 25 mg/dL Normal 7-25 [facility] Comment on above: Performed By: #### B MP #### [address] Automated basophil %Ordered By: Luis Angel Saucedo on 05-17-2023 Basophils/100 WBC (Bld) 0.7 % Normal . [facility] Comment on above: Performed By: #### C BC, BMP ####[facility] [id number] Automated basophil countOrde red By: Luis Angel Saucedo on 05-17-2023 Basophils (Bld) [#/Vol] 0.1 10*3/uL Normal 0.0-0.2 [facility] Comment on above: Result Comment: PERF ORMED BY: [facility] [address] [place] [address] PATHOLOGIST PROJECT PROGRAM MANAGER JUDY RASMUSSEN M.D. Performed By: #### C BC, BMP ####[address] Automated blood monocyte cou ntOrdered By: Luis Angel Saucedo on 05-17-2023 Monocytes (Bld) [#/Vol] 1.0 10*3/uL High 0.0-0.8 [facility] Comment on above: Performed By: #### C BC, BMP ####[address] Automated eosinophil %Ordere d By: Luis Angel Saucedo on 05-17-2023 Eosinophils/100 WBC (Bld) 1.6 % Normal . [facility] Comment on above: Performed By: #### C BC, BMP ####[address] Automated eosinophil countOr dered By: Luis Angel Saucedo on 05-17-2023 Eosinophils (Bld) [#/Vol] 0.2 10*3/uL Normal 0.0-0.45 [facility] Comment on above: Performed By: #### C BC, BMP ####[address] Automated monocyte %Ordered By: Luis Angel Saucedo on 05-17-2023 Monocytes/100 WBC (Bld) 10.3 % Normal . [facility] Comment on above: Performed By: #### C BC, BMP ####[address] Automated neutrophil %Ordere d By: Luis Angel Saucedo on 05-17-2023 Neutrophils/100 WBC (Bld) 72.8 % Normal . [facility] Comment on above: Performed By: #### C BC, BMP ####[address] Basic Metabolic Panelon 12-0 Anion gap [Moles/Vol] Not performed Normal 6.0-15.0 [facility] Comment on above: Performed By: #### C BC, BMP ####[place] [address] [place] [address] [facility] GFR/1.73 sq M.predicted MDRD (S/P/Bld) [Vol rate/Area] 55.878 mL/min/{1.73_m2} Normal [facility] Comment on above: Performed By: #### C TRACY, BMP ####[place] [address] [place] [address] [facility] Potassium Normal 3.5-5.1 [facility] Comment on above: Result Comment: Spec imen hemolyzed, callback initiated if needed Performed By: #### C TRACY, BMP ####[place] [address] [place] [address] [facility] Calcium [Mass/volume] in Ser um or PlasmaOrdered By: Luis Angel Saucedo on 05-17-2023 Calcium [Mass/Vol] 9.8 mg/dL Normal 8.6-10.3 [facility] Comment on above: Result Comment: PERF ORMED BY: [facility] [address] [address] PATHOLOGIST PROJECT PROGRAM MANAGER JUDY RASMUSSEN M.D. Performed By: #### C TRACY, BMP ####[place] [address] [place] [address] [facility] Carbon dioxide, total [Moles /volume] in Serum or PlasmaOrdered By: Luis Angel Saucedo on 05-17-2023 CO2 [Moles/Vol] 25.5 mmol/L Normal 21.0-31.0 [facility] Comment on above: Performed By: #### C TRACY, BMP ####[place] [id number] [facility] Chloride [Moles/volume] in S tyron or PlasmaOrdered By: Luis Angel Saucedo on 05-17-2023 Chloride [Moles/Vol] 108 mmol/L High 98-107 [facility] Comment on above: Performed By: #### C BC, BMP ####[place] [address] [place] [id number] [facility] Complete Blood Count Auto Di ffon 05-17-2023 Mean Corpuscular HGB Conc 33.3 g/dL Normal 32.0-35.0 [facility] Comment on above: Performed By: #### C BC, BMP ####[place] [address] NRBC% 0.1 /100{WBC} Normal 0-0.5 [facility] Comment on above: Performed By: #### C BC, BMP ####[place] [address] Creatinine [Mass/volume] in Serum or PlasmaOrdered By: Luis Angel Saucedo on 05-17-2023 Creatinine [Mass/Vol] 0.99 mg/dL Normal 0.60-1.20 [facility] Comment on above: Performed By: #### C BC, BMP ####[place] [address] [place] [id number] [facility] ECG 12 lead ECGon 05-17-2023 ECG 12 lead ECG [facility] [place] [address] [place] [address] Electrocardiograph Report Signed Patient: Nora Gibbs MR#: [id number] : 1940 Acct:[id number] Age/Sex: 83 / F ADM Date: 05/17/23 Loc: Room: Type: [facility] Attending Dr: Luis Angel Saucedo MD Ordering [...] change was found Confirmed by ARPAN ELLSWORTH [facility], STEFANIE ([id number]) on 05/17/2023 3:19:51 PM Referred By: LEWIS Electronically Signed By:STEFANIE ANTONY MD [facility] Transcribed By: ANI Signed By Stefanie Antony MD, [facility] 05/17/23 1519 Normal [facility] Erythrocyte distribution wid th [Ratio] by Automated countOrdered By: Luis Angel Saucedo on 05-17-2023 Erythrocyte distribution width (RBC) [Ratio] 14.3 % Normal 11.9-15.3 [facility] Comment on above: Performed By: #### C BC, BMP ####[place] [address] [address] Erythrocytes [#/volume] in B lood by Automated countOrdered By: Luis Angel Saucedo on 05-17-2023 RBC (Bld) [#/Vol] 4.16 10*6/uL Normal 3.60-5.00 [facility] Comment on above: Performed By: #### C TRACY, BMP ####[place] [address] [place] [address] [facility] Glucose [Mass/volume] in Ser um or PlasmaOrdered By: Luis Angel Saucedo on 05-17-2023 Glucose [Mass/Vol] 101 mg/dL High 70-100 [facility] Comment on above: ADA recommended refe rence rangeRandom Glucose Reference Range is dependent on time and content of last meal. Glucose of more than 200 mg/dL in a nonstressed, ambulatory subject supports the diagnosis of Diabetes Mellitus. Result Comment: [place] Glucose Reference Range is dependent on time and content of last meal. Glucose of more than 200 mg/dL in a nonstressed, ambulatory subject supports the diagnosis of Diabetes Mellitus. ADA recommended reference range Performed By: #### C BC, BMP ####[facility] [place] [id number] [facility] Hematocrit [Volume Fraction] of Blood by Automated countOrdered By: Luis Angel Saucedo on 05-17-2023 Hematocrit (Bld) [Volume fraction] 36.6 % Normal 34.0-46.4 [facility] Comment on above: Performed By: #### C TRACY, BMP ####[place] [id number] [facility] Hemoglobin [Mass/volume] in BloodOrdered By: Luis Angel Saucedo on 05-17-2023 Hemoglobin (Bld) [Mass/Vol] 12.2 g/dL Normal 11.8-15.4 [facility] Comment on above: Performed By: #### C TRACY, BMP ####[place] [id number] [facility] Leukocytes [#/volume] correc katia for nucleated erythrocytes in Blood by Automated counOrdered By: Luis Angel Saucedo on 05-17-2023 WBC corrected for nucl RBC Auto (Bld) [#/Vol] 10.1 10*3/uL 3.8-11.6 [facility] Leukocytes [#/volume] in Blo od by Automated countOrdered By: Luis Angel Saucedo on 05-17-2023 WBC (Bld) [#/Vol] 10.1 10*3/uL Normal 3.8-11.6 [facility] Comment on above: Performed By: #### C TRACY, BMP ####[address] Lymphocytes [#/volume] in Bl ood by Automated countOrdered By: Luis Angel Saucedo on 05-17-2023 Lymphocytes (Bld) [#/Vol] 1.5 10*3/uL Normal 1.00-4.8 [facility] Comment on above: Performed By: #### C TRACY, BMP ####[place] [id number] [facility] Lymphocytes/100 leukocytes i n Blood by Automated countOrdered By: Luis Angel Saucedo on 05-17-2023 Lymphocytes/100 WBC (Bld) 14.6 % Normal . [facility] Comment on above: Performed By: #### C TRACY, BMP ####[place] [id number] [facility] MCH [Entitic mass] by Automa katia countOrdered By: Luis Angel Saucedo on 12-07-2023 MCH (RBC) [Entitic mass] 29.4 pg Normal 24.7-34.3 [facility] Comment on above: Performed By: #### C TRACY, PATO ####[address] MCHC Auto (RBC) [Mass/Vol]Or dered By: Luis Angel Saucedo on 05-17-2023 MCHC (RBC) [Mass/Vol] 33.3 g/dL 32.0-35.0 [facility] MCV [Entitic volume] by Auto mated countOrdered By: Luis Angel Saucedo on 05-17-2023 MCV (RBC) [Entitic vol] 88.1 fL Normal 80-100 [facility] Comment on above: Performed By: #### C TRACY, PATO ####[address] Neutrophils [#/volume] in Bl ood by Automated countOrdered By: Luis Angel Saucedo on 05-17-2023 Neutrophils (Bld) [#/Vol] 7.3 10*3/uL Normal 1.8-7.7 [facility] Comment on above: Performed By: #### C TRACY, BMP ####[address] No Panel InformationOrdered By: Luis Angel Saucedo on 05-17-2023 Estimated GFR (CKD-EPI) 55.878 mL/Min [facility] Creatinine Clearance (Chem N/A [facility] Nucleated erythrocytes [Pres ence] in Blood by Automated countOrdered By: Luis Angel Saucedo on 05-17-2023 Nucleated RBC Auto Ql (Bld) 0.1 /100{WBC} 0-0.5 [facility] Platelet mean volume [Entiti c volume] in Blood by Automated countOrdered By: Luis Angel Saucedo on 05-17-2023 Platelet mean volume (Bld) [Entitic vol] 10.6 fL Normal 6.3-10.7 [facility] Comment on above: Performed By: #### C TRACY, BMP ####[address] Platelets [#/volume] in Bloo d by Automated countOrdered By: Luis Angel Saucedo on 05-17-2023 Platelets (Bld) [#/Vol] 228 10*3/uL Normal 150-450 [facility] Comment on above: Performed By: #### C TRACY, BMP ####[facility] [id number] [place] [address] [facility] Potassium [Moles/volume] in Serum or PlasmaOrdered By: Luis Angel Saucedo on 05-17-2023 Potassium [Moles/Vol] See comment 3.5-5.1 [facility] Comment on above: Specimen hemolyzed, callback initiated if needed Serum or plasma anion gap de terminationOrdered By: Luis Angel Saucedo on 05-17-2023 Anion gap [Moles/Vol] TNP [facility] Comment on above: Test not performed Sodium [Moles/volume] in Ser um or PlasmaOrdered By: Luis Angel Saucedo on 05-17-2023 Sodium [Moles/Vol] 141 mmol/L Normal 136-145 [facility] Comment on above: Performed By: #### C TRACY, BMP ####[facility] [id number] [place] [address] [facility] Urea nitrogen [Mass/volume] in Serum or PlasmaOrdered By: Luis Angel Saucedo on 05-17-2023 Urea nitrogen [Mass/Vol] 19 mg/dL Normal 7-25 [facility] Comment on above: Performed By: #### C TRACY, BMP ####[facility] [id number] [place] [address] [facility] Office Visiton 04-11-2023 Follow-up visit [id number] Clari Gibbs 1940 F Date Provider Department Center 04/11/2023 STEFANIE RUIZ Family History Problem Relation Age of Onset No Known Problems Mother No Known Problems Father Family Status - Relation Status Age at Mother Father Level of Service:20934 MO OFFICE/OUTPATIENT ESTABLISHED LOW MDM 20-29 MIN Reason for Visit and Comments: Coronary Artery Disease [187] Hypertension [901803] Normal [facility] Physician Referralon 023 Physician Referral [id number] Normal Alejandro [facility] CULTURE WOUNDon 08-17-2022 CULTURE WOUND Culture Observations : LIGHT GROWTH OF NORMAL SKIN ARIES. Culture Observations: NO GROWTH OF ANAEROBES AT 72 HOURS. Normal [facility] Comment on above: Performed By: #### W OUNDCX #### [facility] [address] [address] [address] Michael Hunt MG MAMM DIAGNOSTIC 3D GERARDO CA Don 08-17-2022 MG MAMM DIAGNOSTIC 3D GERARDO CAD Patient: NORA GIBBS Exam Date: 08/17/2022 : 1940 Gender:F Ordering : DR NOBLE HAYES D.O. Admission #: [id number] Family : Order #: [id number] CLICK HERE TO VIEW EXAM RADIOLOGY REPORT [...] liver/uterine cancer at age 62. LOCATION: [facility] BREAST COMPOSITION: Scattered areas fibroglandular density. [...] MD on 08/17/2022 at 14:32 Normal [facility] US BREAST RIGHT LIMITEDon US BREAST RIGHT LIMITED Patient: NORA GIBBS Exam Date: 08/17/2022 : 1940 Gender:F Ordering : DR NOBLE HAYES D.O. Admission #: [id number] Family : Order #: [id number] CLICK HERE TO VIEW EXAM RADIOLOGY REPORT [...] liver/uterine cancer at age 62. LOCATION: [facility] BREAST COMPOSITION: Scattered areas fibroglandular density. [...] MD on 08/17/2022 at 14:32 Normal [facility] BREAST RIGHT LIMITED [employer] Other CBC AUTO DIFFon 01-26-2022 BASO # 0.1 103/ul Normal 0.0-0.1 [facility] Comment on above: Performed By: #### C BC #### [facility] [address] [place] [address] Dr. Michael Hunt Basophils/100 WBC (Bld) 0.4 % Normal 0.2-2.0 [facility] Comment on above: Performed By: #### C BC #### [facility] [address] [place] [address] Dr. Michael Hunt EO # 0.3 103/ul Normal 0.0-0.7 [facility] Comment on above: Performed By: #### C BC #### [facility] [address] [place] [address] Dr. Michael Hunt Eosinophils/100 WBC (Bld) 2.5 % Normal 0.9-7.0 [facility] Comment on above: Performed By: #### C BC #### [facility] [address] [place] [address] Dr. Michael Hunt Erythrocyte distribution width (RBC) [Ratio] 14.9 % Normal 11.0-15.0 [facility] Comment on above: Performed By: #### C BC #### [facility] [address] [place] [address] Dr. Michael Hunt Hematocrit (Bld) [Volume fraction] 37.0 % Normal 36.0-48.0 [facility] Comment on above: Performed By: #### C BC #### [facility] [address] [place] [address] Dr. Michael Hunt Hemoglobin (Bld) [Mass/Vol] 11.9 g/dL Critically low 12.0-16.0 [facility] Comment on above: Performed By: #### C BC #### [facility] [address] [place] [address] Dr. Michael Hunt IG # 0.06 10e3/ul Critically high 0.00-0.03 [facility] Comment on above: Performed By: #### C BC #### [facility] [address] [place] [address] Dr. Michael Hunt IG % 0.5 % Normal 0.0-0.5 [facility] Comment on above: Performed By: #### C BC #### [facility] [address] [place] [address] Dr. Michael Hunt LYMPH # 1.7 103/ul Normal 1.2-3.8 [facility] Comment on above: Performed By: #### C BC #### [facility] [address] [place] [address] Dr. Michael Hunt Lymphocytes/100 WBC (Bld) 15.5 % Critically low 20.5-60.0 [facility] Comment on above: Performed By: #### C BC #### [facility] [address] [place] [address] Dr. Michael Hunt MANUAL DIFF REQ NO Normal [facility] Comment on above: Performed By: #### C BC #### [facility] [address] [place] [address] Dr. Michael Hunt MCH (RBC) [Entitic mass] 29.2 pg Normal 26.7-34.0 [facility] Comment on above: Performed By: #### C BC #### [facility] [address] [place] [address] Dr. Michael Hunt MCHC (RBC) [Mass/Vol] 32.2 g/dL Normal 29.9-35.2 [facility] Comment on above: Performed By: #### C BC #### [facility] [address] [place] [address] Dr. Michael Hunt MCV (RBC) [Entitic vol] 90.9 fL Normal 81.0-99.0 [facility] Comment on above: Performed By: #### C BC #### [facility] [address] [address] [address] Michael Hunt MONO # 1.2 103/ul Critically high 0.3-0.8 [facility] Comment on above: Performed By: #### C BC #### [facility] [address] [address] [address] Michael Hunt Monocytes/100 WBC (Bld) 11.0 % Normal 1.7-12.0 [facility] Comment on above: Performed By: #### C BC #### [facility] [address] [address] [address] Michael Hunt NEUT # 7.8 103/ul Critically high 1.4-6.5 [facility] Comment on above: Performed By: #### C BC #### [facility] [address] [address] [address] Michael Hunt Neutrophils/100 WBC (Bld) 70.1 % Normal 43.0-75.0 [facility] Comment on above: Performed By: #### C BC #### [facility] [address] [address] [address] Michael Hunt Platelet mean volume (Bld) [Entitic vol] 10.2 fL Normal 9.5-13.5 [facility] Comment on above: Performed By: #### C BC #### [facility] [address] [address] [address] Michael Hunt PLT 245 103/ul Normal 150-450 [facility] Comment on above: Performed By: #### C BC #### [facility] [address] [address] [address] Michael Hunt RBC 4.07 106/ul Critically low 4.20-5.40 [facility] Comment on above: Performed By: #### C BC #### [facility] [address] [address] [address] Michael Hunt WBC 11.1 103/ul Critically high 4.0-11.0 [facility] Comment on above: Performed By: #### C BC #### [facility] [address] [address] [address] Michael Hunt LIPID PROFILEon 01-26-2022 CHOL-HDL RATIO NORM SEE BELOW Normal [facility] Comment on above: Result Comment: 3.3 - 4.4 LOW RISK 4.4 - 7.1 AVERAGE RISK 7.1 - 11.0 MODERATE RISK >11.0 HIGH RISK Performed By: #### L IPID, ALT, TSH, BMP #### [facility] [address] [address] [address] Michael Hunt Cholesterol [Mass/Vol] 132 mg/dL Normal <=200 Th [facility] Comment on above: Performed By: #### L IPID, ALT, TSH, BMP #### [facility] [address] [address] [address] Michael Hunt Cholesterol in HDL [Mass/Vol] 53 mg/dL Normal 40-60 [facility] Comment on above: Performed By: #### L IPID, ALT, TSH, BMP #### [facility] [address] [address] [address] Michael Hunt Cholesterol in LDL [Mass/Vol] 43.0 mg/dL Normal [facility] Comment on above: Performed By: #### L IPID, ALT, TSH, BMP #### [facility] [address] [address] [address] Michael Hunt Cholesterol.total/Chol esterol in HDL [Mass ratio] 2.5 {ratio} Normal [facility] Comment on above: Performed By: #### L IPID, ALT, TSH, BMP #### [facility] [address] [address] [address] Michael Hunt HDL NORMAL > or = 60 mg/dl - LO W CARDIOVASCULAR RISK <40 mg/dl - HIGH CARDIOVASCULAR RISK Normal [facility] Comment on above: Performed By: #### L IPID, ALT, TSH, BMP #### [facility] [address] [address] [address] Michael Hunt LDL CALC NORMAL SEE BELOW Normal [facility] Comment on above: Result Comment: <100 mg/dl OPTIMAL 100 - 129 mg/dl NEAR OR ABOVE OPTIMAL 130 - 159 mg/dl BORDERLINE HIGH 160 - 189 mg/dl HIGH >190 mg/dl VERY HIGH Performed By: #### L IPID, ALT, TSH, BMP #### [facility] [address] [address] [address] Michael Hunt Triglyceride [Mass/Vol] 180 mg/dL Critically high <=150 [facility] Comment on above: Performed By: #### L IPID, ALT, TSH, BMP #### [facility] [address] [address] [address] Michael Hunt VLDL CALC 36.0 mg/dL Normal [facility] Comment on above: Performed By: #### L IPID, ALT, TSH, BMP #### [facility] [address] [address] [address] Michael Hunt PROF CHEM 8 (BAS METB)on Anion gap [Moles/Vol] 13.2 mmol/L Normal [facility] Comment on above: Performed By: #### L IPID, ALT, TSH, BMP #### [facility] [address] [address] [address] Michael Hunt Calcium [Mass/Vol] 9.3 mg/dL Normal 8.5-10.1 [facility] Comment on above: Performed By: #### L IPID, ALT, TSH, BMP #### [facility] [address] [address] [address] Michael Hunt Chloride [Moles/Vol] 104 mmol/L Normal 98-107 [facility] Comment on above: Performed By: #### L IPID, ALT, TSH, BMP #### [facility] [address] [address] [address] Michael Hunt CO2 [Moles/Vol] 24.7 mmol/L Normal 21.0-32.0 [facility] Comment on above: Performed By: #### L IPID, ALT, TSH, BMP #### [facility] [address] [address] [address] Michael Hunt Creatinine [Mass/Vol] 1.20 mg/dL Critically high 0.55-1.02 [facility] Comment on above: Performed By: #### L IPID, ALT, TSH, BMP #### [facility] [address] [place] [address] Dr. Michael Hunt EGFR-AF TURKMEN 52 mL/min/1.73m2 Critically low >=60 [facility] Comment on above: Performed By: #### L IPID, ALT, TSH, BMP #### [facility] [address] [place] [address] Dr. Michael Hunt EGFR-NON AF TURKMEN 43 mL/min/1.73m2 Critically low >=60 [facility] Comment on above: Performed By: #### L IPID, ALT, TSH, BMP #### [facility] [address] [place] [address] Dr. Michael Hunt Glucose [Mass/Vol] 99 mg/dL Normal 74-106 [facility] Comment on above: Performed By: #### L IPID, ALT, TSH, BMP #### [facility] [address] [place] [address] Dr. Michael Hunt Potassium [Moles/Vol] 4.9 mmol/L Normal 3.5-5.1 [facility] Comment on above: Performed By: #### L IPID, ALT, TSH, BMP #### [facility] [address] [place] [address] Dr. Michael Hunt Sodium [Moles/Vol] 137 mmol/L Normal 136-145 [facility] Comment on above: Performed By: #### L IPID, ALT, TSH, BMP #### [facility] [address] [place] [address] Dr. Michael Hunt Urea nitrogen [Mass/Vol] 30.0 mg/dL Critically high 7.0-18.0 [facility] Comment on above: Performed By: #### L IPID, ALT, TSH, BMP #### [facility] [address] [place] [address] Dr. Michael Hunt Urea nitrogen/Creatinine [Mass ratio] 25.0 mg/mg Normal [facility] Comment on above: Performed By: #### L IPID, ALT, TSH, BMP #### [facility] [address] [place], [place] [address] Dr. Michael Hunt SGPTon 01-26-2022 ALT [Catalytic activity/Vol] 54 U/L Normal 14-59 [facility] Comment on above: Performed By: #### L IPID, ALT, TSH, BMP #### [facility] [address] [place], [place] [address] Dr. Michael Hunt TSHon 01-26-2022 TSH 5.136 uIU/mL Critically high 0.358-3.74 0 [facility] Comment on above: Performed By: #### L IPID, ALT, TSH, BMP #### [facility] [address] [place], [place] [address] Dr. Michael Hunt Cardiovascular Lab Reporton 09-03-2018 Cardiovascular Lab Report [facility]: [id number] Department of Physician: Bala Marble Julia Zepeda M.D. Division of Service Date: 09/03/2018 Cardiology Birthdate: 1940 Adult Cardiovascular Room #: [address] [place] [address] Cardiovascular Laboratory Report INDICATION: The patient is [...] informed consent. She was brought to the film laboratory technician in a fasting state. The right groin area was prepped and draped in usual fashion. Using micropuncture technique, the right common femoral artery was accessed. The inner cannula was advanced and right femoral angiography was performed followed by upsizing to a 6-Croatian x 11 cm sheath. Access was also obtained using the same technique in the right common femoral vein and a 6-Croatian x 11 cm sheath was placed. A 6-Croatian Lee catheter was used for right heart catheterization with measurement of pressures and calculation of cardiac output using the estimated Patricia method. Lee catheter was removed. Bilateral selective coronary angiography was then performed using 6-Croatian JL4 and JR4 diagnostic catheters. Catheters were removed. Heparin was administered intravenously and therapeutic ACT confirmed during the rest of the procedure and additional heparin given as needed. A 6-Croatian JR4 guiding catheter was advanced and used to engage the right coronary ostium. A TRAFI wire was advanced into the distal RCA. Balloon angioplasty in the mid RCA was performed using Emerge 2.5 x 8 mm balloon inflated at 12 atmospheres. Angiography revealed suboptimal results. This was treated using a Synergy 3.0 x 12 mm drug-eluting stent deployed at 11 atmospheres and post dilated using [place] [employer] [place] 3.0 x 8 mm noncompliant balloon inflated [...] in Cardiology Clinic. Electronically Signed by: Bala Zepeda M.D. 09/15/2018 06:04 P Bala Zepeda M.D. Date Dict: 09/03/2018/01:52 P/Bala Zepeda M.D. Date Trans: 09/03/2018 02:15 P/jaswinder [id number] Normal [facility] Vital Signs Date Time Vital Sign Value Performing Clinician Facility 02-19-2024 10:040 Body height 154.94 cm DO Nika Fagan Work Phone: [facility] 02-19-2024 10:27-0400 Body mass index (BMI) [Ratio] 34.7 kg/m2 DO Nika Fagan Work Phone: [facility] 02-19-2024 10:27-0400 Body weight 83.46 kg DO Nika Fagan Work Phone: [facility] 02-19-2024 10:27-0400 Diastolic blood pressure 66 mm[Hg] DO Nika Brown Work Phone: [facility] 02-19-2024 10:27-0400 Heart rate 60 /min DO Nika Brown Work Phone: [facility] 02-19-2024 10:27-0400 Respiratory rate 20 /min DO Nika Brown Work Phone: [facility] 02-19-2024 10:27-0400 Systolic blood pressure 170 mm[Hg] DO Nika Brown Work Phone: [facility] 12-07-2023 11:49-0400 Body height 154.94 cm DO Nika Brown Work Phone: [facility] 12-07-2023 11:49-0400 Body mass index (BMI) [Ratio] 34.2 kg/m2 DO Nika Brown Work Phone: [facility] 12-07-2023 11:49-0400 Body weight 82.15 kg DO Nika Brown Work Phone: [facility] 12-07-2023 11:49-0400 Diastolic blood pressure 72 mm[Hg] DO Nika Brown Work Phone: [facility] 12-07-2023 11:49-0400 Heart rate 69 /min DO Nika Brown Work Phone: [facility] 12-07-2023 11:49-0400 Respiratory rate 20 /min DO Nika Brown Work Phone: [facility] 12-07-2023 11:49-0400 SaO2% (BldA) [Mass fraction] 98 % DO Nika Brown Work Phone: [facility] 12-07-2023 11:49-0400 Systolic blood pressure 150 mm[Hg] DO Nika Brown Work Phone: [facility] 12-01-2023 15:17-0400 Diastolic blood pressure 72 mm[Hg] DO Nika Brown Work Phone: [facility] 12-01-2023 15:17-0400 Heart rate 60 /min DO Nika Brown Work Phone: [facility] 12-01-2023 15:17-0400 Respiratory rate 20 /min DO Nika Brown Work Phone: [facility] 12-01-2023 15:17-0400 SaO2% (BldA) [Mass fraction] 96 % DO Nika Brown Work Phone: [facility] 12-01-2023 15:17-0400 Systolic blood pressure 137 mm[Hg] DO Nika Brown Work Phone: [facility] 12-01-2023 11:55-0400 Body temperature 97.4 [degF] DO Nika Brown Work Phone: [facility] 12-01-2023 06:08-0400 Body weight 80.5 kg DO Nika Brown Work Phone: [facility] 11-30-2023 15:41-0400 Body height 154.94 cm DO Nika Brown Work Phone: [facility] 11-30-2023 14:47-0400 Diastolic blood pressure 76 mm[Hg] DO Nika Brown Work Phone: [facility] 11-30-2023 14:47-0400 Heart rate 65 /min DO Nika Brown Work Phone: [facility] 11-30-2023 14:47-0400 Respiratory rate 16 /min DO Nika Brown Work Phone: [facility] 11-30-2023 14:47-0400 SaO2% (BldA) [Mass fraction] 97 % DO Nika Brown Work Phone: [facility] 11-30-2023 14:47-0400 Systolic blood pressure 191 mm[Hg] DO Nika Fagan Work Phone: [facility] 11-30-2023 10:13-0400 Body height 154.94 cm DO Nika Fagan Work Phone: [facility] 11-30-2023 10:13-0400 Body weight 82.1 kg DO Nika Fagan Work Phone: [facility] 11-30-2023 10:12-0400 Body temperature 98.6 [degF] DO Nika Fagan Work Phone: [facility] 11-19-2023 11:24-0400 Body height 152.4 cm DO Noble Ball Work Phone: [facility] 11-19-2023 11:24-0400 Body mass index (BMI) [Ratio] 35.9 kg/m2 DO Noble Ball Work Phone: [facility] 11-19-2023 11:24-0400 Body weight 83.51 kg DO Noble Ball Work Phone: [facility] 11-19-2023 11:24-0400 Diastolic blood pressure 76 mm[Hg] DO Noble Ball Work Phone: [facility] 11-19-2023 11:24-0400 Heart rate 67 /min DO Noble Ball Work Phone: [facility] 11-19-2023 11:24-0400 Respiratory rate 12 /min DO Noble Ball Work Phone: [facility] 11-19-2023 11:24-0400 SaO2% (BldA) [Mass fraction] 97 % DO Noble Ball Work Phone: [facility] 11-19-2023 11:24-0400 Systolic blood pressure 142 mm[Hg] DO Noble Ball Work Phone: [facility] 08-28-2023 09:48-0400 Body height 152.4 cm DO Noble Ball Work Phone: [facility] 08-28-2023 09:48-0400 Body mass index (BMI) [Ratio] 35.2 kg/m2 DO Nolbe Ball Work Phone: [facility] 08-28-2023 09:48-0400 Body weight 81.64 kg DO Noble Ball Work Phone: [facility] 08-28-2023 09:24-0400 Body temperature 96.6 [degF] DO Noble Ball Work Phone: [facility] 08-28-2023 09:24-0400 Diastolic blood pressure 57 mm[Hg] DO Noble Ball Work Phone: [facility] 08-28-2023 09:24-0400 Heart rate 65 /min DO Noble Ball Work Phone: [facility] 08-28-2023 09:24-0400 Respiratory rate 18 /min DO Noble Ball Work Phone: [facility] 08-28-2023 09:24-0400 Systolic blood pressure 161 mm[Hg] DO Noble Ball Work Phone: [facility] 08-10-2023 13:57-0500 Body height 152.4 cm DO Noble Ball Work Phone: [facility] 08-10-2023 13:57-0500 Body mass index (BMI) [Ratio] 35.4 kg/m2 DO Noble Ball Work Phone: [facility] 08-10-2023 13:57-0500 Body weight 82.27 kg DO Noble Ball Work Phone: [facility] 08-10-2023 13:57-0500 Diastolic blood pressure 70 mm[Hg] DO Noble Ball Work Phone: [facility] 08-10-2023 13:57-0500 Heart rate 73 /min DO Noble Ball Work Phone: [facility] 08-10-2023 13:57-0500 Respiratory rate 12 /min DO Noble Ball Work Phone: [facility] 08-10-2023 13:57-0500 Systolic blood pressure 150 mm[Hg] DO Noble Ball Work Phone: [facility] 08-07-2023 09:54-0500 Body height 152.4 cm DO Noble Ball Work Phone: [facility] 08-07-2023 09:54-0500 Body mass index (BMI) [Ratio] 35.2 kg/m2 DO Noble Ball Work Phone: [facility] 08-07-2023 09:54-0500 Body weight 81.64 kg DO Noble Ball Work Phone: [facility] 07-16-2023 11:30-0500 Body height 154.94 cm Noble Ball Other [facility] [employer] Other 07-16-2023 11:30-0500 Body mass index (BMI) [Ratio] 33.74 kg/m2 Noble Ball Other [facility] [employer] Other 07-16-2023 11:30-0500 Body weight 81.01 kg Noble Ball Other [facility] [employer] Other 07-16-2023 11:30-0500 Diastolic blood pressure 72 mm[Hg] Noble Ball Other [facility] [employer] Other 07-16-2023 11:30-0500 Respiratory rate 12 /min Noble Ball Other [employer] Other 07-16-2023 11:30-0500 Systolic blood pressure 133 mm[Hg] Noble Ball Other [employer] Other 05-28-2023 14:28-0500 Diastolic blood pressure 63 mm[Hg] DO Noble Ball Work Phone: [facility] 05-28-2023 14:28-0500 Heart rate 58 /min DO Noble Ball Work Phone: [facility] 05-28-2023 14:28-0500 Respiratory rate 16 /min DO Noble Ball Work Phone: [facility] 05-28-2023 14:28-0500 SaO2% (BldA) [Mass fraction] 94 % DO Noble Ball Work Phone: [facility] 05-28-2023 14:28-0500 Systolic blood pressure 116 mm[Hg] DO Noble Ball Work Phone: [facility] 05-28-2023 13:22-0500 Inhaled oxygen flow rate 6 L/min DO Noble Ball Work Phone: [facility] 05-28-2023 13:07-0500 Body temperature 97.4 [degF] DO Noble Ball Work Phone: [facility] 05-28-2023 12:32-0500 Body height 154.94 cm DO Noble Ball Work Phone: [facility] 05-28-2023 12:32-0500 Body mass index (BMI) [Ratio] 33.7 kg/m2 DO Noble Ball Work Phone: [facility] 05-28-2023 12:32-0500 Body weight 81 kg DO Noble Ball Work Phone: [facility] 05-15-2023 09:57-0500 Body height 152.4 cm DO Noble Ball Work Phone: [facility] 05-15-2023 09:57-0500 Body mass index (BMI) [Ratio] 35.2 kg/m2 DO Noble Ball Work Phone: [facility] 05-15-2023 09:57-0500 Body weight 81.64 kg DO Noble Ball Work Phone: [facility] 05-15-2023 09:12-0500 Body temperature 98.1 [degF] DO Noble Ball Work Phone: [facility] 05-15-2023 09:12-0500 Diastolic blood pressure 69 mm[Hg] DO Noble Ball Work Phone: [facility] 05-15-2023 09:12-0500 Heart rate 68 /min DO Noble Ball Work Phone: [facility] 05-15-2023 09:12-0500 Respiratory rate 18 /min DO Noble Ball Work Phone: [facility] 05-15-2023 09:12-0500 Systolic blood pressure 168 mm[Hg] DO Noble Ball Work Phone: [facility] 03-13-2023 14:30-0400 Body height 154.94 cm Noble Ball Other [facility] [employer] Other 03-13-2023 14:30-0400 Body mass index (BMI) [Ratio] 34.01 kg/m2 Noble Ball Other [facility] [employer] Other 03-13-2023 14:30-0400 Body weight 81.65 kg Noble Ball Other [employer] Other 03-13-2023 14:30-0400 Diastolic blood pressure 62 mm[Hg] Noble Ball Other [employer] Other 03-13-2023 14:30-0400 Systolic blood pressure 122 mm[Hg] Noble Ball Other [employer] Other 12-25-2022 15:45-0400 Body height 154.94 cm Noble Ball Other [employer] Other 12-25-2022 15:45-0400 Body mass index (BMI) [Ratio] 33.97 kg/m2 Noble Ball Other [employer] Other 12-25-2022 15:45-0400 Body weight 81.56 kg Noble Ball Other [employer] Other 12-25-2022 15:45-0400 Diastolic blood pressure 70 mm[Hg] Noble Ball Other [employer] Other 12-25-2022 15:45-0400 Respiratory rate 12 /min Noble Ball Other [employer] Other 12-25-2022 15:45-0400 Systolic blood pressure 147 mm[Hg] Noble Ball Other [employer] Other 09-27-2022 12:00-0400 Body height 154.94 cm Nbole Ball Other [employer] Other 09-27-2022 12:00-0400 Body mass index (BMI) [Ratio] 34.5 kg/m2 Noble Ball Other [employer] Other 09-27-2022 12:00-0400 Body weight 82.83 kg Noble Ball Other [employer] Other 09-27-2022 12:00-0400 Diastolic blood pressure 86 mm[Hg] Noble Ball Other [employer] Other 09-27-2022 12:00-0400 Respiratory rate 12 /min Noble Ball Other [employer] Other 09-27-2022 12:00-0400 Systolic blood pressure 122 mm[Hg] Noble Ball Other [employer] Other 08-17-2022 10:15-0500 Body height 154.94 cm Noble Ball Other [employer] Other 08-17-2022 10:15-0500 Body mass index (BMI) [Ratio] 34.91 kg/m2 Noble Ball Other [employer] Other 08-17-2022 10:15-0500 Body weight 83.83 kg Noble Ball Other [employer] Other 08-17-2022 10:15-0500 Diastolic blood pressure 78 mm[Hg] Noble Ball Other [employer] Other 08-17-2022 10:15-0500 Respiratory rate 12 /min Noble Ball Other [employer] Other 08-17-2022 10:15-0500 Systolic blood pressure 116 mm[Hg] Noble Ball Other [employer] Other 08-10-2022 10:15-0500 Body height 154.94 cm Noble Ball Other [employer] Other 08-10-2022 10:15-0500 Body mass index (BMI) [Ratio] 34.91 kg/m2 Noble Ball Other [employer] Other 08-10-2022 10:15-0500 Body weight 83.83 kg Noble Ball Other [employer] Other 08-10-2022 10:15-0500 Diastolic blood pressure 76 mm[Hg] Noble Ball Other [employer] Other 08-10-2022 10:15-0500 Respiratory rate 12 /min Noble Ball Other [employer] Other 08-10-2022 10:15-0500 Systolic blood pressure 112 mm[Hg] Noble Ball Other [employer] Other 10-19-2021 12:57-0400 Body height 157.5 cm Genny Vianey PA-C Work Phone: [facility] 10-19-2021 12:57-0400 Body temperature 97.7 [degF] Genny Vianey PA-C Work Phone: [facility] 10-19-2021 12:57-0400 Body weight 83.28 kg Genny Vianey PA-C Work Phone: [facility] 10-19-2021 12:57-0400 Diastolic blood pressure 52 mm[Hg] Genny Viaeny PA-C Work Phone: [facility] 10-19-2021 12:57-0400 Heart rate 69 /min Genny Vianey PA-C Work Phone: [facility] 10-19-2021 12:57-0400 Respiratory rate 18 /min Genny Vianey PA-C Work Phone: [facility] 10-19-2021 12:57-0400 SaO2% (BldA) [Mass fraction] 94 % Genny Vianey PA-C Work Phone: [facility] 10-19-2021 12:57-0400 Systolic blood pressure 164 mm[Hg] Genny Vianey PA-C Work Phone: [facility] Encounters Encounter Date Encounter Type Care Provider Facility Start: 02-19-2024 End: 02-19-2024 ambulatory DO Nika Fagan Work Phone: [facility] Work Phone: Start: 02-19-2024 End: 02-19-2024 Patient encounter procedure DO Nika Fagan [facility] Work [facility] Start: 02-15-2024 End: 02-15-2024 ambulatory DO Nika Fagan Work Phone: [facility] Work Phone: Start: 02-15-2024 End: 02-15-2024 Patient encounter procedure DO Nika Fagan Work Phone: [facility] Work Phone: Start: 01-24-2024 Non-patient / Non-visit DO Paulina Fagan Work Phone: [facility] Work Phone: Start: 01-17-2024 Non-patient / Non-visit DO Paulina Fagan Work Phone: [facility] Work Phone: Start: 01-14-2024 End: 01-14-2024 ambulatory DO Nika Fagan Work Phone: [facility] Work Phone: Start: 01-14-2024 End: 01-14-2024 Patient encounter procedure DO Nika Fagan Work Phone: [facility] Work Phone: Start: 12-31-2023 End: 12-31-2023 ambulatory [facility] Start: 12-10-2023 End: 12-10-2023 ambulatory DO Nika Fagan Work Phone: [facility] Work Phone: Start: 12-10-2023 End: 12-10-2023 Patient encounter procedure DO Nika Fagan Work Phone: [facility] Work Phone: Start: 12-07-2023 End: 12-07-2023 ambulatory DO Nika Fagan Work Phone: [facility] Work Phone: Start: 12-07-2023 End: 12-07-2023 Patient encounter procedure DO Nika Fagan Work Phone: [facility] Work Phone: Start: 12-03-2023 Non-patient / Non-visit DO Paulina Fagan Work Phone: [facility] Work Phone: Start: 11-30-2023 End: 12-01-2023 Evaluation and management of inpatient DO Nika Fagan Work Phone: [facility] [place] [facility] Work Phone: Start: 11-30-2023 End: 12-01-2023 observation encounter DO Nika Fagan Work Phone: [facility] Work Phone: Start: 11-30-2023 End: 12-01-2023 ambulatory Jim Clay Facility:[facility] Start: 11-23-2023 End: 11-23-2023 ambulatory [facility] Start: 11-20-2023 Non-patient / Non-visit DO Paulina Fagan Work Phone: [facility] Work Phone: Start: 11-19-2023 End: 11-19-2023 ambulatory DO Noble Ball Work Phone: [facility] Work Phone: Start: 11-19-2023 End: 11-19-2023 Patient encounter procedure DO Noble Ball Work Phone: [facility] Work Phone: Start: 11-08-2023 End: 11-08-2023 ambulatory DO Noble Ball Work Phone: [facility] Work Phone: Start: 11-08-2023 End: 11-08-2023 Patient encounter procedure DO Noble Ball Work Phone: [facility] Work Phone: Start: 10-08-2023 End: 10-08-2023 ambulatory DO Noble Ball Work Phone: [facility] Work Phone: Start: 10-08-2023 End: 10-08-2023 Patient encounter procedure DO Noble Ball Work Phone: [facility] Work Phone: Start: 09-06-2023 End: 09-06-2023 ambulatory DO Noble Ball Work Phone: [facility] Work Phone: Start: 09-06-2023 End: 09-06-2023 Patient encounter procedure DO Noble Ball Work Phone: [facility] Work Phone: Start: 08-28-2023 End: 08-28-2023 ambulatory DO Noble Ball Work Phone: [facility] Work Phone: Start: 08-28-2023 End: 08-28-2023 Discharged Recurring DO Noble Ball Work Phone: [facility] Work Phone: Start: 08-10-2023 End: 08-10-2023 Patient encounter procedure DO Noble Ball Work Phone: [facility] Work Phone: Start: 08-06-2023 End: 08-06-2023 Patient encounter procedure DO Noble Ball Work Phone: [facility] Work Phone: Start: 08-06-2023 Non-patient / Non-visit DO Prasanna parra Ball Work Phone: [facility] Work Phone: Start: 07-16-2023 End: 07-16-2023 ambulatory Noble Ball Other [employer] Other Start: 07-16-2023 Office outpatient vi sit 25 minutes Noble Hayes [facility] Start: 07-13-2023 End: 07-13-2023 ambulatory Noble Hayes Other [employer] Other Start: 07-13-2023 Telephone encounter Noble Hayes [facility] Start: 07-04-2023 End: 07-04-2023 ambulatory Noble Hayes Other [employer] Other Start: 07-04-2023 Nursing evaluation o f patient and report Noble Hayes [facility] Start: 05-30-2023 End: 05-30-2023 ambulatory Noble Hayes Other [employer] Other Start: 05-30-2023 Nursing evaluation o f patient and report Noble Hayes [facility] Start: 05-28-2023 Telephone encounter Noble Hayes [facility] Start: 05-28-2023 End: 05-28-2023 Admission to same day surgery center DO Noble Ball Work Phone: [facility] [place] Start: 05-28-2023 End: 05-28-2023 ambulatory DO Noble Ball Work Phone: [facility] Work Phone: Start: 05-17-2023 End: 05-17-2023 Patient encounter procedure DO Noble Ball Work Phone: [facility]-Pre-Surgical Testing Work Phone: Start: 05-17-2023 End: 05-17-2023 ambulatory DO Noble Ball Work Phone: [facility] Work Phone: Start: 05-15-2023 Registered Recurring DO Rajni in Ball Work Phone: [facility] Work Phone: Start: 04-26-2023 End: 04-26-2023 ambulatory Gayle Wade Other [employer] Other Start: 04-26-2023 Nursing evaluation o f patient and report Gayle Wade [facility] Start: 04-11-2023 End: 04-11-2023 ambulatory [facility] Start: 04-10-2023 End: 04-10-2023 ambulatory Noble Hayes Other [employer] Other Start: 04-10-2023 Telephone encounter Noble Hayes FP [facility] Start: 03-13-2023 End: 03-13-2023 ambulatory Noble Hayes Other [employer] Other Start: 03-13-2023 Patient encounter procedure Noble Hayes [facility] Start: 02-15-2023 End: 02-15-2023 ambulatory Noble Hayes Other [employer] Other Start: 02-15-2023 Nursing evaluation o f patient and report Noble Hayes [facility] Start: 01-26-2023 End: 01-26-2023 ambulatory Noble Hayes Other [employer] Other Start: 01-26-2023 Telephone encounter Noble Hayes FP [facility] Start: 01-21-2023 End: 01-21-2023 ambulatory Noble Hayes Other [employer] Other Start: 01-21-2023 Telephone encounter Noble Ball FP [facility] Start: 01-17-2023 End: 01-17-2023 ambulatory Noble Ball Other [employer] Other Start: 01-17-2023 Telephone encounter Noble Ball FP [facility] Start: 01-15-2023 End: 01-15-2023 ambulatory Noble Ball Other [employer] Other Start: 01-15-2023 Nursing evaluation o f patient and report Noble Hayes [facility] Start: 01-02-2023 End: 01-02-2023 ambulatory Noble Hayes Other [employer] Other Start: 01-02-2023 Telephone encounter Noble Hayes FP [facility] Start: 12-27-2022 End: 12-27-2022 ambulatory Noble Hayes Other [employer] Other Start: 12-27-2022 Telephone encounter Noble Hayes FP [facility] Start: 12-26-2022 End: 12-26-2022 ambulatory Noble Hayes Other [employer] Other Start: 12-26-2022 Telephone encounter Noble Hayes FP [facility] Start: 12-25-2022 End: 12-25-2022 ambulatory Noble Hayes Other [employer] Other Start: 12-25-2022 Office outpatient vi sit 25 minutes Noble Hayes [facility] Start: 12-14-2022 End: 12-14-2022 ambulatory Noble Hayes Other [employer] Other Start: 12-14-2022 Nursing evaluation o f patient and report Noble Hayes [facility] Start: 11-13-2022 End: 11-13-2022 ambulatory Noble Hayes Other [facility] [employer] Other Start: 11-13-2022 Nursing evaluation o f patient and report Noble Hayes [facility] Start: 11-09-2022 ambulatory RITU Rainey Facility: [facility] Start: 11-07-2022 ambulatory RITU Rainey Facility: [facility] Start: 11-02-2022 End: 11-03-[address] NOBLE HAYES Facility:[facility] Start: 10-30-2022 End: 10-31-2022 ambulatory RITU Rainey Facility:[facility] Start: 10-27-2022 End: 10-28-2022 ambulatory RITU Rainey Facility:[facility] Start: 10-25-2022 End: 10-26-2022 ambulatory RITU LINDALYN . Facility:[facility] Start: 10-23-2022 End: 10-24-2022 ambulatory RITU LINDALYN . Facility:[facility] Start: 10-20-2022 End: 10-21-2022 ambulatory RITU LINDALYN . Facility:[facility] Start: 10-18-2022 End: 10-19-2022 ambulatory RITU MCKEONLYN . Facility:[facility] Start: 10-16-2022 End: 10-17-2022 ambulatory RITU BAINN . Facility:[facility] Start: 10-12-2022 Nursing evaluation o f patient and report Noble Hayes [facility] Start: 10-12-2022 End: 10-13-2022 ambulatory RITU MCKEONLYN . [facility] Other Start: 09-27-2022 End: 09-27-2022 ambulatory Noble Hayes Other [employer] Other Start: 09-27-2022 Office outpatient vi sit 25 minutes Noble Hayes [facility] Start: 09-12-2022 End: 09-12-2022 ambulatory Noble Hayes Other [employer] Other Start: 09-12-2022 Nursing evaluation o f patient and report Noble Hayes [facility] Start: 08-23-2022 End: 08-23-2022 ambulatory Noble Hayes Other [employer] Other Start: 08-23-2022 Telephone encounter Noble TALAVERA [facility] Start: 08-22-2022 ambulatory Checo RODRIGEZ Facility : [facility] Start: 08-17-2022 End: 08-18-[address] NOBLE HAYES [facility] Other Start: 08-17-2022 Office outpatient vi sit 15 minutes Noble Hayes [facility] Start: 08-17-2022 Telephone encounter Noble TALAVERA [facility] Start: 08-10-2022 End: 08-10-2022 ambulatory Nbole Hayes Other [facility] [employer] Other Start: 08-10-2022 Office outpatient vi sit 15 minutes Noble Hayes [facility] Start: 07-11-2022 End: 07-11-2022 ambulatory Gayle Wade Other [facility] Other Start: 07-11-2022 Nursing evaluation o f patient and report Gayletone Wade [facility] Start: 01-26-2022 End: 01-27-[address] NOBLE HAYES Facility: Start: 01-24-2022 Adult health examination Solomon ni Marty Other [facility] [employer] Other Start: 10-19-2021 End: 10-19-2021 ambulatory Genny Winters PA-C Work Phone: Hematology/Oncology Comment on above: Encounter for screen ing mammogram for malignant neoplasm of breast (Primary Dx) Start: 10-19-2021 End: 10-19-2021 Patient encounter procedure Genny Winters PA-C Work Phone: [facility] Start: 09-22-2021 Telephone encounter Stephen jimenes MD Work Phone: Hematology/Oncology Comment on above: Orders Start: 05-20-2019 Preoperative cardiovascular examination Noble Hayes Other [employer] Other Start: 09-03-2018 End: 09-04-2018 Patient encounter procedure PROVIDER UNKNOWN Facility:[facility] Start: 08-08-2018 End: 08-09-2018 Patient encounter procedure DEFAULT PHYSICIAN Facility:[facility] Procedures Date Procedure Procedure Detail Performing Clinician Start: 11-30-2023 Duplex scan of lower limb veins DO Nika Fagan Work Phone: Start: 11-30-2023 CT angiography of thorax DO Nika Fagan Work Phone: Start: 11-30-2023 Plain chest X-ray DO Alberto Fagan Work Phone: Start: 05-28-2023 Debridement DO Olivia Hayes Work Phone: Start: 10-05-2018 Screening mammography B geraldine Hayes Other Start: 01-05-2016 Pre-surgery evaluation Noble Hayes Other Start: 01-05-2016 Preoperative cardiov ascular examination Noble Hayes Other Depression screening Olivia Hayes Other Plan of Treatment Date Care Activity Detail Author Start: 12-01-2023 End: 12-01-2023 [facility] Start: 11-30-2023 Duplex scan of lower limb veins US venous duplex LE BI [facility] Start: 11-30-2023 US Lower extremity v ein - bilateral [facility] Start: 11-30-2023 End: 11-30-2023 [facility] Start: 11-30-2023 Hospital admission [facility] Start: 05-28-2023 Aerobic Culture Aerobic Culture [facility] Start: 05-28-2023 Anaerobic Culture Anaerobic Culture [facility] Start: 05-28-2023 Microscopic observat ion [Identifier] in Unspecified specimen by Gram stain [facility] Start: 05-28-2023 End: 05-28-2023 [facility] Start: 04-14-2022 DIABETES SCREEN DIABETES SCREEN [facility] Start: 02-09-2022 Influenza vaccination INFLUENZ A (Season Ended) [facility] Start: 07-07-2021 COVID-19 VACCINE (4 - Booster for Pfizer series) COVID-19 VACCINE (4 - Booster for Pfizer series) [facility] Start: 06-11-2021 ADVANCE DIRECTIVE DISCUSSION ADVANCE DIRECTIVE DISCUSSION [facility] Start: 2003 BONE DENSITY BONE DENSITY [facility] Start: 2003 PNEUMOVAX AGE 65 AND OVER WITH 5YR LOOKBACK (#1) PNEUMOVAX AGE 65 AND OVER WITH 5YR LOOKBACK (#1) [facility] Start: 1988 SHINGRIX VACCINE (1 of 2) SHINGRIX VACCINE (1 of 2) [facility] Start: 1957 SHINGRIX VACCINE (1 of 2) SHINGRIX VACCINE (1 of 2) [facility] Start: 1957 Urine microalbumin profile DTAP,TDAP,TD (1 - Tdap) [facility] Start: 1944 PNEUMOCOCCAL: 65+ (1 - PCV) PNEUMOCOCCAL: 65+ (1 - PCV) [facility] Bacteria identified in Unspecified specimen by Aerobe culture [facility] Bacteria identified in Unspecified specimen by Anaerobe culture [facility] Patient Education [facility] Work Phone: Patient referral [facility] Work Phone: End: 11-18-2022 Screening mammography bi 2-view breast inc cad KAREN SCREENING Radiology Routine Encounter for screening mammogram for malignant neoplasm of breast 1 Occurrences starting 10/19/2021 until 11/18/2022 [facility] Work Phone: Comment on above: 1 Occurrences starti ng 10/19/2021 until 11/18/2022 [facility] Immunizations Immunization Date Immunization Notes Care Provider Sukhwinder plata 02-19-2024 influenza, high dose seasonal, preservative-free DO Nika Fagan Work Phone: [facility] 03-26-2023 influenza virus vaccine, unspecified formulation DO Noble Hayes Work Phone: [facility] 03-26-2023 influenza, high dose seasonal, preservative-free Noble Hayes Other [facility] [employer] Other 03-06-2022 influenza virus vaccine, split virus (incl. purified surface antigen) oNble Hayes Other [employer] Other 03-06-2022 influenza virus vaccine, unspecified formulation DO Noble Hayes Work Phone: [facility] 03-07-2021 COVID-19 vaccine, ag e 12+ yr ([employer] - PURPLE TOP) Genny Winters PA-C Work Phone: [facility] 03-01-2021 influenza virus vaccine, split virus (incl. purified surface antigen) Noble Hayes Other [employer] Other 03-01-2021 influenza virus vaccine, unspecified formulation DO Noble Hayes Work Phone: [facility] 09-07-2020 COVID-19 vaccine, ag e 12+ yr (PFIZER-[employer]ION[employer] - PURPLE TOP) Genny Seguraer PA-C Work Phone: [facility] 08-16-2020 COVID-19 vaccine, ag e 12+ yr (PFIZER-[employer] - PURPLE TOP) Genny Seguraer PA-C Work Phone: [facility] 03-01-2020 influenza virus vaccine, split virus (incl. purified surface antigen) Noble Hayes Other [facility] [employer] Other 03-01-2020 influenza virus vaccine, unspecified formulation DO Noble Hayes Work Phone: [facility] 03-18-2019 influenza virus vaccine, split virus (incl. purified surface antigen) Noble Hayes Other [facility] [employer] Other 03-18-2019 influenza virus vaccine, unspecified formulation DO Noble Hayes Work Phone: [facility] 03-11-2018 influenza virus vaccine, split virus (incl. purified surface antigen) Noble Hayes Other [facility] [employer] Other 03-11-2018 influenza virus vaccine, unspecified formulation DO Noble Hayes Work Phone: [facility] 03-11-2018 Seasonal trivalent influenza vaccine, adjuvanted, preservative free Genny Seguraer PA-C Work Phone: [facility] 03-27-2017 influenza virus vaccine, split virus (incl. purified surface antigen) Noble Hayes Other [facility] [employer] Other 03-27-2017 influenza virus vaccine, unspecified formulation DO Noble Hayes Work Phone: [facility] 03-27-2017 influenza, high dose seasonal, preservative-free Genny Seguraer PA-C Work Phone: [facility] [facility] 03-21-2016 influenza virus vaccine, split virus (incl. purified surface antigen) Noble Hayes Other [facility] Other 03-21-2016 influenza virus vaccine, unspecified formulation DO Noble Hayes Work Phone: [facility] 03-21-2016 influenza, high dose seasonal, preservative-free Genny Winters PA-C Work Phone: [facility] 03-24-2015 influenza virus vaccine, split virus (incl. purified surface antigen) Noble Hayes Other [facility] Other 03-24-2015 influenza virus vaccine, unspecified formulation DO Noble Hayes Work Phone: [facility] 03-24-2015 pneumococcal conjuga te vaccine, 13 valent Noble Hayes Other [facility] 03-24-2015 pneumococcal Conjuga te, unspecified formulation; 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: [Need for prophylactic vaccination against Streptococcus pneumoniae (pneumococcus)] Noble Hayes Other [facility] Other 04-22-2013 tetanus and diphther ia toxoids, adsorbed, preservative free, for adult use (5 Lf of tetanus toxoid and 2 Lf of diphtheria toxoid) Noble Hayes Other [facility] 04-28-2009 pneumococcal polysaccharide vaccine, 23 valent Noble Hayes Other [facility] Payers Date Payer Category Payer Self-pay [id number] 2014 Private Health Insurance [facility] AARP SUPPLEMENT [id number] 2014-Present [phone] [address] [place] [address] Indemnity [id number] 1996 Medicare MEDICARE MEDICAR E A AND B [id number] 1996-Present [phone] [facility] [address] [place] [address] Medicare [id number] 1959 Medicare [id number] 1959 Unknown [id number] 1938 Unknown [id number] 2.16.840.1.727147.3.579.2 .647 1938 Unknown [id number] 2.16.840.1.140102.3.579.2 .647 1938 Unknown [id number] 2.16.840.1.844330.3.579.2 .727 1938 Unknown [id number] 2.16.840.1.571249.3.579.2 .593 1938 Unknown [id number] 2.16.840.1.304364.3.579.2 .593 1938 Unknown [id number] 2.16.840.1.321387.3.579.2 .593 1938 Unknown [id number] 2.16.840.1.201609.3.579.2 .593 1938 Unknown [id number] 2.16.840.1.358893.3.579.2 .593 1938 Unknown [id number] 2.16.840.1.195165.3.579.2 .593 1938 Unknown [id number] 2.16.840.1.607111.3.579.2 .593 1938 Unknown [id number] 2.16.840.1.235885.3.579.2 .593 1938 Unknown [id number] 2.16.840.1.431997.3.579.2 .593 1938 Unknown [id number] 2.16.840.1.067229.3.579.2 .593 1938 Unknown [id number] 2.16.840.1.208545.3.579.2 .593 1938 Unknown [id number] 2.16.840.1.678416.3.579.2 .593 1938 Unknown [id number] 2.16.840.1.426775.3.579.2 .593 Unknown Unknown [id number] 2.16.840.1.780670.3.579.2 .531 Unknown [id number] 2.16.840.1.278459.3.579.2 .531 Unknown [id number] 2.16.840.1.223338.3.579.2 .531 Unknown [id number] 2.16.840.1.696150.3.579.2 .531 Social History Date Type Detail Facility Start: 11-12-2014 End: 11-30-2023 Tobacco smoking status NHIS Ex-smoker [facility] History of tobacco use Cigarette Smoker C [facility] Start: 11-12-2014 Cigarettes smoked current (pack per day) - Reported 1 [facility] Start: 11-12-2014 Tobacco use and exposure Smokeless tobacco non-user [facility] Start: 10-19-2020 End: 10-19-2021 Alcohol intake Current non-drinker of alcohol (finding) [facility] Start: 1940 Sex Assigned At Not on file C [facility] Start: 10-09-2021 End: 10-19-2021 Exposure to SARS-CoV-2 (event) Not sure [facility] End: 11-10-2007 Sex Assigned At [facility] [employer] Other Start: 1940 Sex Assigned At Female F [facility] Goals Date Patient Goal Desired Activity /State Functional Status Date Assessment Result Facility 12-01-2023 Functional status Patient at Baseline [facility] Work Phone: 11-30-2023 Functional status Patient at Baseline [facility] Work Phone: Mental Status Date Assessment Result Facility 12-01-2023 Cognitive function Cognitive Sta tus Patient at Baseline [facility] Work Phone: 11-30-2023 Cognitive function Cognitive Sta tus Patient at Baseline [facility] Work Phone: Clinical Notes 09-22-2021 to 02-19-2024 Note Date & Type Note Facility 02-19-2024 Evaluation note Diagnosis Onset Date Chest pain resolved ASHD (arteriosclerotic heart disease) acute Stage 3a chronic kidney disease acute Chest pain resolved (HFpEF) heart failure with p reserved ejection fraction acute ASHD (arteriosclerotic heart disease) acute Stage 3a chronic kidney disease acute [facility] Work Phone: 1(759) 880-144009-06-2024 Evaluation note* Diagnosis Onset Date Resolution Status ASHD (arteriosclerotic heart disease) acute Chronic bronchitis acute History of breast cancer acu te Hypothyroidism acute Pernicious anemia acute Stage 3a chronic kidney disease acute Chest pain resolved Acute on chronic heart failu re with preserved ejection fraction (HFpEF) acute ASHD (arteriosclerotic heart disease) acute Stage 3a chronic kidney disease acute Chest pain resolved [facility] Work Phone: 1(247) 856-816408-05-2024 Evaluation note* Diagnosis Onset Date Resolution Status ASHD (arteriosclerotic heart disease) acute Chronic bronchitis acute History of breast cancer acu te Hypothyroidism acute Pernicious anemia acute Stage 3a chronic kidney disease acute Chest pain resolved Acute on chronic heart failu re with preserved ejection fraction (HFpEF) acute ASHD (arteriosclerotic heart disease) acute Stage 3a chronic kidney disease acute Chest pain resolved [facility] Work Phone: 1(812) 385-298207-22-2024 NoteUT Cardiology - [facility] Subjective Nora Gibbs is a 83 y.o. year old female patient being seen for 1 mo follow up echo, stress test, and med changes. Amlodipine was stopped last month, and doxazosin was added. She says LE edema has not improved since stopping amlodipine. Her echo was done while she was inpatient at [facility] for chest pain. While there, they added [...] was admitted to the emergency room at [facility] with chest pain, And shortness of breath. [...] Allergies Allergen Reactions Peni (more content not included)...[facility]07-01-2024 Evaluation note* Diagnosis Onset Date Resolution Status ASHD (arteriosclerotic heart disease) acute Chronic bronchitis acute History of breast cancer acu te Hypothyroidism acute Pernicious anemia acute Stage 3a chronic kidney disease acute Chest pain resolved Acute on chronic heart failu re with preserved ejection fraction (HFpEF) acute ASHD (arteriosclerotic heart disease) acute Stage 3a chronic kidney disease acute Chest pain resolved [facility] Work Phone: 1(402) 606-613906-21-2024 History and physical note Author Jim Clay [facility] November 30, 2023 5:16pm Note Date/Time November 30, 2023 3:48 pm [facility] [address] [place] [address] Hospitalist H&P Signed Patient: Nora Gibbs MR#: [id number] : 1940 Acct:[id number] Age/Sex: 83 / F Adm Date: 4 Loc: Room: [address] [place] [address] Type: ADM INOo Attending Dr: Jim Clay DO Copies to: Noble Hayes,DO Jim Clay, DO~ HPI DATE OF EXAMINATION: 11/30/23 CHIEF COMPLAINT: chest pain HISTORY OF PRESENT ILLNESS: Ms. Gibbs is a 83F with a history of [...] and started torsemide. She recently saw her escapement maker who recommended an echocardiogram and a stress [...] negative unless noted below or in HPI [facility] Medical History (Updated 11/30/23 @ [...] % (Auto) 20.1 % (.) 11/30/23 10:25 [place] % (Auto) 9.8 % (.) 11/30/23 10:25 Eos % (Auto) 2.8 % (.) 11/30/23 10:25 Baso % (Auto) 0.6 % (.) 11/30/23 10:25 Nucleat RBC Rel Count 0.1 /100 WBC (0-0.5) 11/30/23 10:25 Neut # (Auto) 4.1 x10E3/uL (1.8-7.7) 11/30/23 10:25 Lymph # (Auto) 1.2 x10E3/uL (1.00-4.8) 11/30/23 10:25 [place] # (Auto) 0.6 x10E3/uL (0.0-0.8) 11/30/23 10:25 [...] hypertension: (3) Lower extremity edema: Plan Mrs. Gibbs is an 83F with a history of [...] 1 Documented By: Jim Clay DO 11/30/23 1447 Signed By: <Electronically signed by Jim Clay DO> 11/30/23 1717 [facility] Work Phone: 1(742) 293-669706-14-2024 NoteUT Cardiology - [facility] Subjective Nora Gibbs is a 83 y.o. year old female patient being seen for 6 mo follow up CAD, hypertension, and hyperlipidemia. Had labs last week. She saw Dr. Hayes on Sunday and he recommends amlodipine be [...] the morning., Disp: 90 tablet, Rfl: 3 vbbaxvpcycs-ckvpcqwtj-hmuovzpp 200-62.5-25 mcg blister with device, INHALE 1 [...] with results is: L (more content not included)...[facility]02-27-2024 Progress note Author Luis Angel Saucedo [facility] August 07, 2023 9:59am Note Date/Time August 07, 2023 9:54am [facility] [address] [place] [address] Wound Center Provider Note Signed Patient: Nora Gibbs MR#: [id number] : 1940 Acct:[id number] Age/Sex: 83 / F Copies to: MD [...] hematoma. She did see her surgeon in [place] who did her previous surgery. Patient had some punch biopsies performed to rule out cancer which apparently did not show any cancer. She did develop nonhealing wound at this site. She underwent a couple debridements and closures in [place] but each time, the wound did open up and start draining. The last debridement was last month. The surgeon who did her previous surgerieshas since left and the patient did see Dr. Kurtz last week. He did remove some remaining sutures and the patient was then referred here. Patient is currently having dressing changes performed at [facility]. She has an open right breast [...] did wound start?: 08/2022 Mode of Arrival/ Turkey Picker: Personal vehicle Lives with:: Alone Appetite Description: Within Normal Limits Who helps w/ dressing change?: Home Health and Wound Care Dept Why Do You Need Help?: Can't Reach Ulcer Smoking Status: Former smoker Constitutional Constitutional: Denies fever(s) Integumentary/Breasts Skin/Breast: Reports wounds [facility] Medical History (Updated 08/06/23 @ 13:22 [...] 0.1 CM Sq: 0.010 Surrounding Tissue Appearance: [place] Surrounding Tissue Temp: Warm Drainage Amount: [...] by MD Luis Angel Saucedo> 08/07/23 0959 [facility] Work Phone: 1(449) 949-691002-06-2024 Progress note Author Luis Angel Saucedo [facility] July 17, 2023 9:52am Note Date/Time July 17, 2023 9 :52am [facility] [address] [place] [address] Wound Center Provider Note Signed Patient: Nora Gibbs MR#: [id number] : 1940 Acct:[id number] Age/Sex: 83 / F Copies to: MD [...] hematoma. She did see her surgeon in [place] who did her previous surgery. Patient had some punch biopsies performed to rule out cancer which apparently did not show any cancer. She did develop nonhealing wound at this site. She underwent a couple debridements and closures in [place] but each time, the wound did open up and start draining. The last debridement was last month. The surgeon who did her previous surgerieshas since left and the patient did see Dr. Kurtz last week. He did remove some remaining sutures and the patient was then referred here. Patient is currently having dressing changes performed at the [facility] infusion center. She has an open [...] did wound start?: 08/2022 Mode of Arrival/ Turkey Picker: Personal vehicle Lives with:: Alone Appetite Description: Within Normal Limits Who helps w/ dressing change?: Infusion Center and Wound Care Dept Why Do You Need Help?: Can't Reach Ulcer Smoking Status: Former smoker Constitutional Constitutional: Denies fever(s) Gastrointestinal Gastrointestinal: Denies abdominal pain Integumentary/Breasts Skin/Breast: Reports wounds Neurologic Neurologic: Denies syncope [facility] Medical History CAD (coronary artery disease) Osteoporosis Breast cancer right Hyperlipidemia COPD (chronic obstructive pulmonary disease) Hypothyroidism Hypertension Diverticulitis Surgical History Hx of heart artery stent 2019 Hx of fusion of cervical spine History [...] Right Breast: Bed Appearance: Beefy Red, Devitalized, [place] and Yellow Percent of Wound Bed Granulated/Red: 60 Percent of Devitalized: 40 Length (cm): 1.0 Width (cm): 2 Depth (cm): 0.9 CM Sq: 2.000 Surrounding Tissue Appearance: [place] Surrounding Tissue Temp: Warm Drainage Amount: [...] by MD Luis Angel Saucedo> 07/17/23 0952 [facility] Work Phone: 1(343) 802-626302-05-2024 Evaluation note* Encounter Date Diagnosis Assessment Notes [...] abstinence. Not a candidate for yearly LDCT [facility] Other 01-24-2024 Evaluation note* Encounter Date Diagnosis Assessment Notes Treatment Notes Treatment Clinical Notes Jun, Pernicious anemia (ICD-10 - D51.0) [facility] Other 01-23-2024 Progress note Author Luis Angel Saucedo [facility] July 03, 2023 12:04pm Note Date/Time July 03, 2023 1 2:04pm [facility] [address] [place] [address] Wound Center Provider Note Signed Patient: Nora Gibbs MR#: [id number] : 1940 Acct:[id number] Age/Sex: 83 / F Copies to: MD [...] hematoma. She did see her surgeon in [place] who did her previous surgery. Patient had some punch biopsies performed to rule out cancer which apparently did not show any cancer. She did develop nonhealing wound at this site. She underwent a couple debridements and closures in [place] but each time, the wound did open up and start draining. The last debridement was last month. The surgeon who did her previous surgerieshas since left and the patient did see Dr. Kurtz last week. He did remove some remaining sutures and the patient was then referred here. Patient is currently having dressing changes performed at the [facility]. She has an open right breast [...] did wound start?: 08/2022 Mode of Arrival/ Turkey Picker: Personal vehicle Lives with:: Alone Appetite Description: Within Normal Limits Who helps w/ dressing change?: Infusion Center and Wound Care Dept Why Do You Need Help?: Can't Reach Ulcer Smoking Status: Former smoker Constitutional Constitutional: Denies fever(s) Integumentary/Breasts Skin/Breast: Reports wounds [facility] History CAD (coronary artery disease) Osteoporosis [...] Right Breast: Bed Appearance: Beefy Red, Devitalized, [place] and Yellow Percent of Wound Bed Granulated/Red: 10 Percent of Devitalized: 90 Length (cm): 0.8 Width (cm): 2 Depth (cm): 1 CM Sq: 1.600 Surrounding Tissue Appearance: [place] Surrounding Tissue Temp: Warm Drainage Amount: [...] by MD Luis Angel Saucedo> 07/03/23 1204 [facility] Work Phone: 1(478) 981-590901-02-2024 Progress note Author Luis Angel Saucedo [facility] June 12, 2023 9:26am Note Date/Time June 12, 2023 9: 26am [facility] [address] [place] [address] Wound Center Provider Note Signed Patient: Nora Gibbs MR#: [id number] : 1940 Acct:[id number] Age/Sex: 83 / F Copies to: MD Noble WestDO~ HPI Date of Visit Date of Visit: Date of Service: 06/12/2023 Time of Service: 09:23 Narrative HPI: Patient is status post debridement of her right breast wound. Pathology showed chronic wound changes. No mention of malignancy. Cultures grew normal skin aries. There was an anaerobe identified and [facility] [place] Patient was started on negative pressure [...] hematoma. She did see her surgeon in [place] who did her previous surgery. Patient had some punch biopsies performed to rule out cancer which apparently did not show any cancer. She did develop nonhealing wound at this site. She underwent a couple debridements and closures in [place] but each time, the wound did open up and start draining. The last debridement was last month. The surgeon who did her previous surgerieshas since left and the patient did see Dr. Kurtz last week. He did remove some remaining sutures and the patient was then referred here. Patient is currently having dressing changes performed at the [facility] infusion center. She has an open [...] did wound start?: 08/2022 Mode of Arrival/ [place] Picker: Personal vehicle Lives with:: Alone Appetite Description: [...] 10:29) Hives Wound/Ulcer Right Breast: Bed Appearance: [place] and Yellow Percent of Wound Bed Granulated/Red: 10 Percent of Devitalized: 90 Length (cm): 1.2 Width (cm): 2.9 Depth (cm): 2.5 CM Sq: 3.480 Surrounding Tissue Appearance: [place] Surrounding Tissue Temp: Warm Drainage Amount: [...] signed by MD Luis Angel Saucedo> 06/12/23925 [facility] Work Phone: 1(801) 868-758612-20-2023 Evaluation note* Encounter Date Diagnosis Assessment Notes Treatment Notes Treatment Clinical Notes May, Pernicious anemia (ICD-10 - D51.0) [facility] Other 12-18-2023 Hospital Discharge instructions Additional Instructions Initiate negative pressure wound therapy using black foam at 125 mmHg continuous. Change 3 times a week. In the meantime, perform dressing changes daily. Remove packing, irrigate with saline/Vashe and repack with saline moistened 4 x 4 gauze and cover with dry dressing.[facility] Work Phone: 1(750) 844-655912-05-2023 Progress note Author Luis Angel Saucedo [facility] May 15, 2023 9:57am Note Date/Time May 15, 2023 9 :57am [facility] [address] [place] [address] Wound Center Provider Note Signed Patient: Nora Gibbs MR#: [id number] : 1940 Acct:[id number] Age/Sex: 83 / F Copies to: MD [...] hematoma. She did see her surgeon in [place] who did her previous surgery. Patient had some punch biopsies performed to rule out cancer which apparently did not show any cancer. She did develop nonhealing wound at this site. She underwent a couple debridements and closures in [place] but each time, the wound did open up and start draining. The last debridement was last month. The surgeon who did her previous surgerieshas since left and the patient did see Dr. Kurtz last week. He did remove some remaining sutures and the patient was then referred here. Patient is currently having dressing changes performed at the [facility] infusion center. She has an open [...] did wound start?: 08/2022 Mode of Arrival/ Turkey Picker: Personal vehicle Lives with:: Alone Appetite Description: Within Normal Limits Who helps w/ dressing change?: Infusion Center and Wound Care Dept Why Do You Need Help?: Can't Reach Ulcer Smoking Status: Former smoker Constitutional Constitutional: Denies fever(s) Cardiovascular Cardiovascular: Denies chest pain Respiratory Respiratory: Denies dyspnea Integumentary/Breasts Skin/Breast: Reports wounds [facility] Medical History (Updated 04/24/23 @ 11:09 by [...] by MD Luis Angel Saucedo> 05/15/23 0957 [facility] Work Phone: 1([phone]) 565-244911-16-2023 Evaluation note* Encounter Date Diagnosis Assessment Notes Treatment Notes Treatment Clinical Notes Apr, Pernicious anemia (ICD-10 - D51.0) [facility] Other 11-14-2023 Progress note Author Luis Angel Saucedo [facility] April 24, 2023 11:12am Note Date/Time April 24, 2023 10:46am [facility] [address] [place] [address] Wound Center Provider Note Signed Patient: Nora Gibbs MR#: [id number] : 1940 Acct:[id number] Age/Sex: 83 / F Copies to: MD [...] hematoma. She did see her surgeon in [place] who did her previous surgery. Patient had some punch biopsies performed to rule out cancer which apparently did not show any cancer. She did develop nonhealing wound at this site. She underwent a couple debridements and closures in [place] but each time, the wound did open up and start draining. The last debridement was last month. The surgeon who did her previous surgerieshas since left and the patient did see Dr. Kurtz last week. He did remove some remaining sutures and the patient was then referred here. Patient is currently having dressing changes performed at the [facility] infusion [place]. She has an open right breast wound [...] did wound start?: 08/2022 Mode of Arrival/ [place] Picker: Personal vehicle Lives with:: Alone Appetite Description: Within Normal Limits Who helps w/ dressing change?: Infusion Center and Wound Care Dept Why Do You Need Help?: Can't Reach Ulcer Smoking Status: Former smoker Constitutional Constitutional: Denies fever(s) Cardiovascular Cardiovascular: Denies chest pain Respiratory Respiratory: Denies dyspnea Gastrointestinal Gastrointestinal: Denies abdominal pain Integumentary/Breasts Skin/Breast: Reports wounds Neurologic Neurologic: Denies syncope [facility] Medical History (Updated 04/24/23 @ [...] Breast: Bed Appearance: Epithelial Tissue or Bridge, [place] and Yellow Percent of Wound Bed [...] be done daily. Patient goes to [facility] for this. Patient follow-up here in [...] by MD Luis Angel Saucedo> 04/24/23 1112 [facility] Work Phone: 1([phone]) 756-857311-01-2023 NotePatient here for follow up CAD and hypertension. Recently had another breast surgery to repair infection from biopsy. Still dealing with some drainage from that. She denies chest pain, SOB, palpitations, and lightheadedness. Review of Systems Skin: Positive for poor wound healing. Musculoskeletal: Positive for arthritis, back pain and joint pain. All other systems reviewed and are negative.[facility] 04-11-2023 NoteCardiovascular Medicine [facility] SUBJECTIVE Chief Complaint Patient presents with Coronary Artery Disease Hypertension Nora Gibbs is a 83 y.o. female here for [...] the morning., Disp: 90 tablet, Rfl: 3 [id number]-[id number] 200-62.5-25 mcg blister with device, INHALE 1 [...] Final Atrial Rate 09/03/2018 70 BPM Final MO Interval 09/03/2018 172 ms Final QRS DURATION 09/03/2018 84 ms Final QT Interval 09/03/2018 398 ms Final QTC CALCULATION(BEZET) 09/03/2018 429 ms Final P [place] 09/03/2018 70 degrees Final R-[place] 09/03/2018 65 degrees Final T Wave [place] 09/03/2018 83 degrees Final Diagnosis 09/03/2018 Final [...] 102, LDL 5 (more content not included)... [facility]10-03-2023 Evaluation note* Encounter Date Diagnosis Assessment [...] patient on monthly SBE and yearly mammograms. [facility] Other 09-07-2023 Evaluation note* Encounter Date Diagnosis Assessment Notes Treatment Notes Treatment Clinical Notes Feb, Pernicious anemia (ICD-10 - D51.0) [facility] Other 08-09-2023 Evaluation note* Encounter Date Diagnosis Assessment Notes Treatment Notes Treatment Clinical Notes Jan, Lower extremity edema (ICD-10 - R60.0) Jan, ASHD (arteriosclerotic heart disease) (ICD-10 - I25.10) Jan, HEIN (dyspnea on exertion) (ICD-10 - R06.09) [facility] Other 08-07-2023 Evaluation note* Encounter Date Diagnosis Assessment Notes Treatment Notes Treatment Clinical Notes Jan, Pernicious anemia (ICD-10 - D51.0) [facility] Other 07-25-2023 Evaluation note* Encounter Date Diagnosis Assessment Notes Treatment Notes Treatment Clinical Notes Dec, Lower extremity edema (ICD-10 - R60.0) [facility] Other 07-18-2023 Evaluation note* Encounter Date Diagnosis Assessment Notes Treatment Notes Treatment Clinical Notes Dec, Lower extremity edema (ICD-10 - R60.0) [facility] Other 07-17-2023 Evaluation note* Encounter Date Diagnosis [...] factors Dec, Elevated d-dimer (ICD-10 - R79.89) [facility] Other 07-06-2023 Evaluation note* Encounter Date Diagnosis Assessment Notes Treatment Notes Treatment Clinical Notes Dec, Pernicious anemia (ICD-10 - D51.0) [facility] Other 06-05-2023 Evaluation note* Encounter Date Diagnosis Assessment Notes Treatment Notes Treatment Clinical Notes Nov, Pernicious anemia (ICD-10 - D51.0) [facility] Other 05-04-2023 Evaluation note* Encounter Date Diagnosis Assessment Notes Treatment Notes Treatment Clinical Notes October, Pernicious anemia (ICD-10 - D51.0) [facility] Other 04-19-2023 Evaluation note* Encounter Date Diagnosis [...] mammogram in 6mo SBE monthly f/u Surgery [facility] Other 04-04-2023 Evaluation note* Encounter Date Diagnosis Assessment Notes Treatment Notes Treatment Clinical Notes Sep, Pernicious anemia (ICD-10 - D51.0) [facility] Other 03-09-2023 Evaluation note* Encounter Date Diagnosis Assessment Notes Treatment Notes Treatment Clinical Notes Aug, Local infection of the skin and subcutaneous tissue, unspecified (ICD-10 - L08.9) Aug, Other injury of unspecified body region, initial encounter (ICD-10 - T14.8XXA) [facility] Other 03-09-2023 Evaluation note* Encounter Date Diagnosis Assessment Notes Treatment Notes Treatment Clinical Notes Aug, Cellulitis of female breast (ICD-10 - N61.0) Aug, Breast abscess of female (ICD-10 - N61.1) Warm compresses, continue antibiotic coverage. Schedule breast US Refer to Surgery Aug, Hx of breast cancer (ICD-10 - Z85.3) [facility] Other 03-02-2023 Evaluation note* Encounter Date Diagnosis [...] Hx of breast cancer (ICD-10 - Z85.3) [facility] Other 01-31-2023 Evaluation note* Encounter Date Diagnosis Assessment Notes Treatment Notes Treatment Clinical Notes Jun, Pernicious anemia (ICD-10 - D51.0) [facility] Other 05-11-2022 History of Present illness Narrative* Genny Winters PA-C - 10/19/2021 1:30 PM EDT PATIENT NAME: Nora Gibbs CLINIC NO.: [id number] ATTENDING PHYSICIAN: Stephen Caballero MD DATE OF SERVICE: October 19, 2021 (Elements copied from Dr. Caballero's note dated October 19, 2020, have been reviewed and updated where appropriate, and all reflect current assessment and medical decision making during today's encounter, October 19, 2021) CC: Follow up Diagnosis: 1. Right breast cancer, invasive lobular carcinoma, HER-2/suresh negative ER and MO strongly positive at 95%, diagnosed 2014 Treatment History: 1. Lumpectomy plus sentinel lymph node biopsy October 28, 2014. Invasive lobular carcinoma, 2.2 cm. 2 sentinel lymph nodes negative for involvement. ER MO 95% positive, HER-2/suresh negative. 2. Right breast [...] Date Arthritis Breast cancer (HCC) Right; T2N0M0; ER/MO+ HER2 COPD (chronic obstructive pulmonary disease) (HCC) [...] LABS: PATH: Imaging: Assessment and Plan: Nora Gibbs is a 80 year old year old female here for follow up. 81-year-old diagnosed in 2014 with a 2.2 cm, invasive lobular carcinoma, ER and MO 95% positive, HER-2/suresh negative status post lumpectomy and sentinel lymph node biopsy. She received right breast radiation therapy and had been on adjuvant aromatase inhibitor since February 2015 and stopped October 2019 after 5 years of therapy. She has no clinical evidence of disease. Will repeat her mammogram in 1 year and follow up. Genny Winters PA-C CC: Noble Hayes MD documented in this encounterAd[facility] Center04-14-2022 Miscellaneous Notes* Telephone Encounter - Stephen Caballero MD - 09/22/2021 1:41 PM EDT Screening is fine. She is 7 years out * Telephone Encounter - Adalgisa Beck RN - 09/22/2021 12:14 PM EDT Patient is scheduled for a screening mammogram on 10/09/21 at [facility]. The diagnosis of malignant neoplasm will not work for a screening mammogram. Patient is 7 years from diagnosis. Would you like to continue with a screening mamm and change the diagnosis to personal history of breast cancer or change the order to a diagnostic mamm? Thanks Sierra Beck RN documented in this encounterAdams County Regional Medical CenterDischarge summary Author Jim Clay [facility] December 01, 2023 3:07pm Note Date/Time December 01, 2023 3:07 pm [facility] [address] [place] [address] Discharge Summary Signed Patient: Nora Gibbs MR#: [id number] : 1940 Acct:[id number] Age/Sex: 83 / F Adm Date: 4 Loc: Room: [address] [place] [address]: Jim Clay DO Copies to: DO Jim Jean-Baptiste DO~ Providers Date of Admission: 11/30/23 Date of Discharge: 12/01/23 Discharging Provider: Jim Clay Primary Care Provider: Noble Hayes Discharge Diagnosis (1) Chest pain: (2) Heart failure with preserved ejection fraction, borderline, class III: (3) Essential hypertension: (4) Lower extremity edema: Final Diagnosis Final Discharge Diagnosis: as above Summary Hospital Course Hospital course: Miss Gibbs is a 3-year-old female who presented to [...] and stress test thisupcoming week with her escapement maker in [place]. She was self admitted to hospital for [...] The patient was instructed to see her escapement maker this upcoming week for her stress test [...] Blister With Device 1 inh INHALATION DAILY [id number]-[id number] C-E-herbal 1,250 mcg-50 mg -67.5 mg-15 mg Tablet,Chewable 2 tab PO DAILY.PC.SUPPER doxazosin 2 mg tablet 2 mg PO QHS acetaminophen 500 mg Tablet 500 mg PO Q6H PRN (Reason: Pain) cyanocobalamin (vitamin B-12) 1,000 mcg/mL Solution 1,000 mcg IM QMONTH albuterol sulfate 90 mcg/actuation Hfa Aerosol Inhaler 2 puff INHALATION DIRECTED PRN (Reason: Shortness Of Breath) Follow Up: Noble Hayes DO [Primary Care Provider] - (Call office [...] % (Auto) 62.6, Lymph % (Auto) 22.3, [place] % (Auto) 11.5, Eos % (Auto) 2.8, Baso % (Auto) 0.8, Nucleat RBC Rel Count 0.1, Neut # (Auto) 4.0, Lymph # (Auto) 1.4, [place] # (Auto) 0.7, Eos # (Auto) 0.2, [...] signed by Jim Clay DO> 12/01/23 1507 [facility] Work Phone: Evaluation note* Diagnosis Encounter for screening mammogram for malignant neoplasm of breast- Primary Other screening mammogram documented in this encounter [facility] CenterEvaluation noteNo [employer] Other Evaluation note* Diagnosis Onset Date Resolution Status History of breast cancer acu te History of radiation exposure acute Nonhealing surgical wound [facility] Work Phone: Evaluation note* Diagnosis Onset Date Resolution Status Essential hypertension acute Cerumen impaction noneactive History of breast cancer acu te History of radiation exposure acute Nonhealing surgical wound [facility] Work Phone: Evaluation note* Diagnosis Onset Date Resolution Status History of breast cancer acu te History of radiation exposure acute Nonhealing surgical wound ac yo ASHD (arteriosclerotic heart disease) acute Chronic bronchitis acute Edema acute Essential hypertension acute History of breast cancer acu te Hypothyroidism acute Pernicious anemia acute Stage 3a chronic kidney disease acute [facility] Work Phone: Evaluation note* Diagnosis Onset Date Resolution Status ASHD (arteriosclerotic heart disease) acute Chronic bronchitis acute Essential hypertension acute History of breast cancer acu te Hypothyroidism acute Lower extremity edema acute Pernicious anemia acute Stage 3a chronic kidney disease acute Chest pain acute Essential hypertension acute [facility] Work Phone: Evaluation note* Diagnosis Onset Date Resolution Status ASHD (arteriosclerotic heart disease) acute Chronic bronchitis acute Essential hypertension acute History of breast cancer acu te Hypothyroidism acute Lower extremity edema acute Pernicious anemia acute Stage 3a chronic kidney disease acute Chest pain acute Essential hypertension acute Lower extremity edema acute [facility] Work Phone: Evaluation note* Diagnosis Onset [...] acute Stage 3a chronic kidney disease acute [facility] Work Phone: History general Narrative - [...] cell skin cancer Hospitalization History SEE ABOVE [facility] Other History general Narrative - Reported* Type [...] History SEE ABOVE Hospitalization History SEE ABOVE [facility] Other [facility] [employer] Other History general Narrative - Reported* Type [...] cell skin cancer Hospitalization History SEE ABOVE [facility] Other History general Narrative - Reported* Type [...] ulcera tion 01/2023 Hospitalization History SEE ABOVE [facility] Other Hishhtc general Narrative - Reported* Type Description Date [...] ulcera tion 05/2023 Hospitalization History SEE ABOVE [facility] Other Progress note Author Luis Angel Saucedo [facility] August 28, 2023 9:48am Note Date/Time August 28, 2023 9:4 8am [facility] [address] [place] [address] Wound Center Provider Note Signed Patient: Nora Gibbs MR#: [id number] : 1940 Acct:[id number] Age/Sex: 83 / F Copies to: MD [...] hematoma. She did see her surgeon in [place] who did her previous surgery. Patient had some punch biopsies performed to rule out cancer which apparently did not show any cancer. She did develop nonhealing wound at this site. She underwent a couple debridements and closures in [place] but each time, the wound did open up and start draining. The last debridement was last month. The surgeon who did her previous surgerieshas since left and the patient did see Dr. Kurtz last week. He did remove some remaining sutures and the patient was then referred here. Patient is currently having dressing changes performed at [facility]. She has an open right breast [...] did wound start?: 08/2022 Mode of Arrival/ Turkey Picker: Personal vehicle Lives with:: Alone Appetite Description: Within Normal Limits Who helps w/ dressing change?: Home Health and Wound Care Dept Why Do You Need Help?: Can't Reach Ulcer Smoking Status: Former smoker Constitutional Constitutional: Den[facility] fever(s) [facility] Stage 3a chronic kidney disease [...] 2 puff inhalation DIRECTEDPRN Shortness Of Breath 12/07/23 [History Confirmed 08/10/23] cyanocobalamin (vitamin B-12) 1,000 [...] 0 CM Sq: 0.000 Surrounding Tissue Appearance: [place] Surrounding Tissue Temp: Warm Drainage Amount: [...] by MD Luis Angel Saucedo> 08/28/23 0948 [facility] Work Phone: Reason for referral (narrative)* Diagnostic Procedure Only (Routine) - Pending Review Specialty Diagnoses / Procedures Referred By Jann caraballo Referred To Contact [facility] Diagnoses Encounter for screening mammogram for malignant neoplasm of breast Procedures KAREN SCREENING SCREENING MAMMOGRAPHY BI 2-VIEW BREAST INC CAD Genny Winters PA-C [address] [place] [address] [place] [address] [facility] [address] [place] [address] Referral ID Status Reason Start Date Expiration Date Visits Requested Visits Authorized [id number] Pending Review Auto-Generat ed Referral 10/19/2021 11/18/2022 1 1 [facility] for referral (narrative)* Reason *FU 09/04 Referral for right breast abscess Diagnosis 1 Breast abscess of fe male (N61.1) Referral Organization [facility] Referring Provider First Name Noble Referring Provider Last Name Marty Referring Provider Specialty Internal Me dicine Referred Organization Unknown Facility Referred Provider Checo Reis Referred Provider Specialty Surgery Referral Priority Routine General Notes Kelly Gilbert 01:34:05 PM >received today, notes locked, and referral faxed Kelly Gilbert 08/28/2022 12:05:49 PM >FAXED FIRST ATTEMPT LETTER Clinical Notes . . [facility] Other Summary Purpose Family History Relationship Condition Age at Onset Recorded Date/T nithin father Myocardial infarction Unknown sister Malignant neoplasm Unknown Relationship Condition Age at Onset Recorded Date/T nithin father Myocardial infarction Unknown sister Malignant neoplasm Unknown father Unknown Not Specified Unknown Relationship Condition Age at Onset Recorded Date/T nithin father Myocardial infarction Unknown sister Malignant neoplasm Unknown father Unknown mother Unknown Advance Directives Advance Directive Response Recorded Date/ Time Advance [...] chronic kidney disease Chest pain Chief Complaint 4 month follow up Chest Pain Amb Documentation ER follow up b12 Shot B12 Shot B12 Shot Reason for Visit ASHD (arteriosclerot ic heart disease) Chronic bronchitis History of breast cancer Hypothyroidism Pernicious anemia Stage 3a chronic kidney disease Chest pain Acute on chronic heart failure with preserved ejection fraction (HFpEF) ASHD (arteriosclerotic heart disease) Stage 3a chronic kidney disease Chest pain Chief Complaint Chest Pain Amb Documentation ER follow up b12 Shot B12 Shot B12 Shot 3 month follow up Reason for Visit Chest pain ASHD (arteriosclerotic heart disease) Stage 3a chronic kidney disease Chest pain (HFpEF) heart failure with preserved ejection fraction ASHD (arteriosclerotic heart disease) Stage 3a chronic kidney disease Additional Source Comments INFORMATION SOURCE (unrecogn ized section and content) DATE CREATED AUTHOR 09/16/2018 [facility] DATE CREATED AUTHOR AUTHOR'S ORGANIZ ATION 08/23/2022 [facility] DATE CREATED AUTHOR AUTHOR'S ORGANIZ ATION 11/17/2022 [facility] DATE CREATED AUTHOR AUTHOR'S ORGANIZ ATION 06/27/2023 [facility] DATE CREATED AUTHOR AUTHOR'S ORGANIZ ATION 12/11/2023 [facility] DATE CREATED AUTHOR AUTHOR'S ORGANIZ ATION 01/20/2024 [facility] Source Comments (unrecognize d section and content) In the event this informatio n is protected by the Federal Confidentiality of Alcohol and Drug Abuse Patient Records regulations: The Federal rules restrict any use of the information to criminally investigate or prosecute any alcohol or drug abuse patient.[facility] Medical CenterIn the event this information is protected by the Federal Confidentiality of Alcohol and Drug Abuse Patient Records regulations: The Federal rules restrict any use of the information to criminally investigate or prosecute any alcohol or drug abuse patient.[facility] Reason for Visit (unrecogniz ed section and content) Reason Comments Breast Cancer 1 year follow up Reason Comments Orders Care Teams (unrecognized sec tion and content) Team Status: Active Member Role Status Dates Noble Hayes DO Primary Care Provider Active Team Status: Inactive Member Role Status Dates Noble Hayes DO Primary Care Provide r, Attending Provider Active Start: August 10, 2023 End: August 10, 2023 Team Status: Inactive Member Role Status Dates Noble Hayes DO Primary Care Provider Active Start: August 28, 2023 End: August 28, 2023 Luis Angel Saucedo MD Attending Provider Active Sta rt: August 28, 2023 End: August 28, 2023 Team Status: Inactive Member Role Status Dates Noble Hayes DO Primary Care Provider Active Start: September 06, 2023 End: September 06, 2023 Lesly Dye APRN SURGICAL AIDE-C Attending Provider Act wyatt Start: September 06, 2023 End: September 06, 2023 Team Status: Inactive Member Role Status Dates Noble Hayes DO Primary Care Provide r, Attending Provider Active Start: October 08, 2023 End: October 08, 2023 Team Status: Inactive Member Role Status Dates Noble Hayes DO Primary Care Provide r, Attending Provider Active Start: November 08, 2023 End: November 08, 2023 Tent Assembler Relationship Specialty Start Date End Date Noble Hayes DO PCP - General Internal Medicine 11/09/14 Tent Assembler Relationship Specialty Start Date End Date Noble Hayes PCP - General Internal Medicine 11/09/14 Team Status: Active Member Role Status Dates Noble Hayes DO Primary Care Provider Active Luis Angel Saucedo MD Attending Provider Active Team Status: Inactive Member Role Status Dates Noble Hayes DO Primary Care Provider Active Luis Angel Saucedo MD Attending Provider Active Team Status: Active Member Role Status Dates Noble Hayes DO Primary Care Provider Active Start: August 06, 2023 RADHA Swan Attending Provider Active Start : August 06, 2023 Team Status: Inactive Member Role Status Dates Noble Hayes DO Primary Care Provide r, Attending Provider Active Start: August 06, 2023 End: August 06, 2023 Team Status: Inactive Member Role Status Dates Noble Hayes DO Primary Care Provide r, Attending Provider Active Start: November 19, 2023 End: November 19, 2023 Team Status: Active Member Role Status Dates Noble Hayes DO Primary Care Provide r, Attending Provider Active Start: November 20, 2023 Team Status: Active Member Role Status Dates Nika Fagan DO Emergency Provider Active Start: November 30, 2023 Noble Hayes DO Primary Care Provider Active Start: November 30, 2023 Jim Clay DO Admit Provider, Atte nding Provider Active Start: November 30, 2023 Team Status: Inactive Member Role Status Dates Nika Fagan DO Emergency Provider Active Start: November 30, 2023 End: December 01, 2023 Noble Hayes DO Primary Care Provider Active Start: November 30, 2023 End: December 01, 2023 Jim Clay DO Admit Provider, Atte nding Provider Active Start: November 30, 2023 End: December 01, 2023 Team Status: Active Member Role Status Dates Noble Hayes DO Primary Care Provider Active Start: December 03, 2023 RADHA Donovan Attending Provider Active St art: December 03, 2023 Team Status: Inactive Member Role Status Dates Noble Hayes , Primary Care Provide r, Attending Provider Active Start: December 07, 2023 End: December 07, 2023 Team Status: Inactive Member Role Status Dates Noble Hayes , DO Primary Care Provide r, Attending Provider Active Start: December 10, 2023 End: December 10, 2023 Team Status: Inactive Member Role Status Dates Noble Hayes , DO Primary Care Provide r, Attending Provider Active Start: January 14, 2024 End: January 14, 2024 Team Status: Active Member Role Status Dates Noble Hayes DO Primary Care Provider Active Start: January 17, 2024 Bala Zepeda MD Attending Provider Active Start: January 17, 2024 Team Status: Active Member Role Status Dates Noble Hayes DO Primary Care Provider Active Start: January 24, 2024 Bala Zepeda MD Attending Provider Active Start: January 24, 2024 Team Status: Inactive Member Role Status Dates Noble Hayes DO Primary Care Provide r, Attending Provider Active Start: February 15, 2024 End: February 15, 2024 Team Status: Inactive Member Role Status Dates Noble Marty , DO Primary Care Provide r, Attending Provider Active Start: February 19, 2024 End: February 19, 2024 Goals (unrecognized section and content) Goals [...] BE BASED ON THE PRIMARY CLINICAL RECORDS. [employer] [facility]. provides no warranty or guarantee of the accuracy or completeness of information in this document.
--- NOTE | 2024-03-05 17:02 | W.PM.PROCNOT ---
Procedure: 6 Minute Walk Date: 12/04/2023 Indication: Mucopurulent chronic bronchitis MMRC: 3 Resting data: -BP: 177/70 -HR: 54 -SpO2: 95% -FiO2: Room air -Benjy: 4 Description: 6 minute walk was initiated according to standard protocol. Patient ambulated for a total of 6 minutes with the lowest SpO2 at 93%, the highest heart rate at 84%, and highest Benjy 8. Recovery data: -BP: 195/72 -HR: 61 -SpO2: 97% -FiO2: Room air -Benjy: 3 Ambulation: Patient ambulated a total of 189m which is 111% predicted. There were 2 stops reported due to dyspnea. Impressions: No ambulatory desaturations. Excellent walk distance, but patient voiced severe symptomatic dyspnea during the study without any correlation to her oxygenation. Recommendations: No supplemental O2 required. Clinical correlation required.
== END 2024-03-05 12:36 | disposition home or self-care (01) ==
LOC: CARD 12:36
PROVIDERS: PCP Internal Medicine; Visit Provider Internal Medicine
DX: R06.00 Dyspnea, unspecified (principal); F17.211 Nicotine dependence, cigarettes, in remission; J41.1 Mucopurulent chronic bronchitis
CPT/HCPCS: 94618

== ENCOUNTER 2024-05-27 16:11 | Outpatient (OUT) | payer MEDICARE, SELFPAY ==
--- OUTSIDE RECORDS SUMMARY | 2024-05-27 16:23 | XMS_ITS | CCD ---
Author Organization [facility] Care Team Providers Care Search Planner Name Role Phone PHYSICIAN, DEFAULT Admitting Unavailable [...] DR NEWSOME Primary Care Unavailable TAMLYN ., IRTU Attending Unavailable BALL, DR NEWSOME Primary Care [...] TAMLYN ., RITU Admitting Unavailable DR NOBLE HAYES Primary Care Unavailable DO Noble Hayes Primary Care Provider MD Luis Angel Saucedo Attending Provider DO Noble Hayes Primary Care Provider MD Luis Angel Saucedo Attending Provider DO Nika Fagan Emergency Provider DO Noble Hayes Primary Care Provider DO Jim Clay Admit Provider DO Jim Clay Attending Provider [phone] Luis Angel Saucedo Admitting Unavailable Luis Angel Saucedo Attending Unavailable Noble Hayes Primary Care Unavailable Luis Angel Saucedo Admitting Unavailable Luis Angel Saucedo Attending Unavailable Noble Hayes Primary Care Unavailable Jim Clay Admitting Unavailable Jim Clay Attending Unavailable Noble Hayes Primary Care Unavailable Luis Angel Saucedo Admitting Unavailable Luis Angel Saucedo Attending Unavailable Noble Hayes Primary Care Unavailable STEFANIE GAYTAN Attending Unavailable BALA ZEPEDA Attending Unavailable BALA ZEPEDA Attending Unavailable STEFANIE GAYTAN Attending Unavailable Allergies Allergy Classification Reported Allergen(s) Allergy Type Date of Onset Reaction(s) Facility penicillAMINE (3 sources) penicillAMINE Drug Allergy 08-10-19 24 [facility] Penicillins (antibiotic) (3 sources) Penicillins Drug Allergy 08-10-19 24 [facility] Sulfonamides (antibiotic) (6 sources) Sulfonamides (Antibiotic) Drug Allergy 08-10-19 24 [facility] Sulfur (3 sources) Sulfur Drug Allergy 08-10-19 24 [facility] (17 sources) Penicillins; 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: [PENICILLINS] Drug allergy (disorder) 04-28-20 14 [facility] Repository Comment on above: Onset Date: 05/15/20 14 (17 sources) Sulfonamides (Antibiotic); 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: [SULFA (SULFONAMIDE ANTIBIOTICS)] Drug allergy (disorder) 06-11-18 94 [facility] Repository Comment on above: Onset Date: 05/15/20 14 (17 sources) Penicillins Drug Allergy 05-15-20 14 Unknown [facility] (17 sources) Sulfonamides (Antibiotic) Drug Allergy 05-15-20 14 Unknown [facility] (20 sources) guaiFENesin Drug Allergy Unknown 2,10E+07 Other (20 sources) penicillAMINE Drug Allergy 08-10-19 24 Unknown, Hives [facility] (20 sources) Sulfacetamide / Sulfur Drug Allergy Unknown 2,10E+07 Other (15 sources) Dextromethorphan Drug Allergy 07-22-19 14 Unknown 2,10E+07 Other (15 sources) guaiFENesin Drug Allergy 07-22-19 14 Unknown 2,10E+07 Other (1 source) Penicillin Drug Allergy Unknown 2,10E+07 Other (15 sources) Sulf-10 Drug allergy Unknown 2,10E+07 Other (1 source) patient allergy list reviewed by nurse or physicia Propensity to adverse reactions 05-09-20 13 Comment:Done 2,10E+07 Other (1 source) Allergies Reconciled Propensity to adverse reactions Unknown 2,10E+07 Other (12 sources) Sulfacetamide; 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: [sulfacetamide] Drug Allergy 08-10-19 [facility] (12 sources) Sulfur; 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: [sulfur] Drug Allergy 08-10-19 [facility] (1 source) penicillAMINE Drug Allergy 11-30-19 [facility] (1 source) Penicillins Drug allergy (disorder) 11-30-19 [facility] (1 source) Sulfonamides (Antibiotic) Drug allergy (disorder) 11-30-19 [facility] Repository Medications Current Medications Medication Drug [...] a day for 30 days Nov, Active [id number] 200 actuat albuterol 0.09 mg/actuat metered dose inhaler (20 sources) beta2-Adrenergic Agonist Start: 02-19-2024 take 1 puff(s) by inhalation every four to six hours as needed Albuterol Sulfate 90 mcg/actuation HFA aerosol inhaler Active 2 PUFF INHALATION EVERY 4-6 HOURS as needed for Shortness Of Breath 8.5 February 19, 2024 11:49am Start: 05-17-2023 End: 02-19-2024 Albuterol Sulfate 90 mcg/act uation HFA aerosol inhaler Discontinued 2 PUFF INHALATION As Directed as needed for Shortness Of Breath 8.5 February 19, 2024 9:45am February 19, 2024 11:49am take 1 puff(s) by in halation every [...] Inhibitor, Nonsteroidal Anti-inflammatory Drug Start: 3 take 1 tablet by mouth once daily Aspirin 81 mg Tablet,Chewable Active 81 MG PO Daily April 24, 2023 12:00am take 1 tablet by eveline th every twenty-four hours aspirin, enteric coated (ASPIRIN, ENTERIC COATED) 81 mg EC tablet Take 81 mg by mouth q 24 HR. 0 Active Comment on above: Take 81 mg by mouth q 24 HR. atorvastatin 40 mg oral tablet (20 sources) HMG-CoA Reductase Inhibitor Start: 3 take 1 tablet by mouth once daily Atorvastatin 40 mg tablet Active 40 MG PO Daily April 24, 2023 12:00am Comment on above: Take 40 mg by mouth once daily. Bfzyao-Pmidvojp-Hnw C-E-Herbal (15 sources) Start: 3 take 2 tablets by mouth once daily Lchmja-Hpnfhzmj-Zgr C-E-Herbal Active 2 TAB PO Daily after supper April 24, 2023 1:00am Start: 04-24-2023 take 2 tablets by mo [facility] once daily Knzopn-Cwdihrdx-Qvi C-E-Herbal Active 2 TAB PO Daily after supper April 24, 2023 12:00am Mcbjfq-Wczcduxf-Xyg C-E-Herbal 1,250 mcg-50 mg -67.5 mg-15 mg Tablet,Chewable (1 source) Start: 04-24-2023 take 2 tablets by mouth once daily Dnafot-Xzbkkowx-Aqj C-E-Herbal 1,250 mcg-50 mg -67.5 mg-15 mg Tablet,Chewable Active 2 TAB PO Daily after supper April 24, 2023 12:00am bumetanide 0.5 mg oral tablet (4 sources) Loop Diuretic Start: 12-26-2022 take 1 tablet by mouth every twenty-four hours Bumetanide 0.5 MG 1 tablet Orally Once a day for 5 days Dec, Active calcium carbonate 1500 mg / cholecalciferol 0.01 mg oral tablet (16 sources) Vitamin D Start: 04-24-2023 take 1 tablet by mouth once daily Calcium Carbonate-Vitamin D3 (Calcium 600 + D(3)) 600 mg-10 mcg (400 unit) Tablet Active 1 TAB PO Daily April 24, 2023 12:00am Calcium-Vitamin D 500 MG (20 sources) take 1 tablet by eveline twice daily at mealtime Calcium-Vitamin D 500 MG 1 tablet with f ood Orally Twice a day Active doxazosin 2 mg oral tablet (18 sources) alpha-Adrenergic Melanie Start: 11-26-2023 End: 11-30-2023 take 1 tablet by mouth once daily at bedtime Doxazosin 2 mg tablet Active 2 MG PO Daily at bedtime November 29, 2023 11:00pm doxycycline hyclate 100 mg oral capsule (20 sources) Tetracycline-class Drug Start: 04-10-2023 take 1 capsule by mouth every twelve hours Doxycycline Hyclate 100 MG 1 capsule Orally Twice a day for 10 days Mar, Active Start: 08-10-2022 take 1 capsule by mo ut twice daily Doxycycline Hyclate 100 MG 1 capsule Orally twice daily for 7 days Aug, Active Fiber (20 sources) Fiber - as direc katia Orally Active Opfzadhqnuq-Gskalkriw-Gffhys er (16 sources) Start: 04-24-2023 Qewjvqzhnpr-Nusynatlj-Sltrpo er (Trelegy Ellipta) 200-62.5-25 mcg Blister With Device Active 1 INH INHALATION Daily April 24, 2023 1:00am Start: 04-24-2023 Fluticasone-Um eclidin-Vilanter (Trelegy Ellipta) 200-62.5-25 mcg Blister With Device Active 1 INH INHALATION Daily April 24, 2023 12:00am furosemide 20 mg oral tablet (6 sources) Loop Diuretic Start: 03-20-2024 take 1 tablet by mouth twice daily Furosemide 20 mg tablet Active 20 MG PO Twice daily March 19, 2024 11:00pm Start: 01-01-2024 End: 02-19-2024 take 1 tablet by mouth twice daily Furosemide 20 mg tablet Discontinued 20 MG PO Twice daily 60 30 December 31, 2023 11:00pm February 19, 2024 9:25am inulin 2000 mg chewable tablet (18 sources) Start: 04-24-2023 take 1 tablet by mouth twice daily Inulin (Fiber Gummies) 2 gram Tablet,Chewable Active 2 GM PO Twice daily April 24, 2023 12:00am inulin (FIBER MMIES ORAL) Take by mouth. 0 Active Comment on above: Take by mouth. 24 hr isosorbide mononitrate 30 mg extended release oral tablet (20 sources) Nitrate Vasodilator Start: take 1 tablet by mouth once daily, then take 1 tablet by mouth every twenty-four hours Isosorbide Mononitrate 30 mg tablet extended release 24 hr Active 30 MG PO Daily March 19, 2024 11:00pm Start: 04-24-2023 take 1 tablet by eveline th once daily in the morning, then take 1 tablet by mouth every twenty-four hours Isosorbide Mononitrate 60 mg tablet extended release 24 hr Active 60 MG PO Every morning April 24, 2023 12:00am Comment on above: Take 60 mg by mouth once daily. levothyroxine (20 sources) l-Thyroxine Start: 01-29-2024 take 1 tablet by mouth once daily Levothyroxine 88 mcg tablet Active 0 .ROUTE .COMPLEX January 29, 2024 12:10pm TAKE ONE TABLET BY MOUTH ONCE DAILY ON AN EMPTY STOMACH Start: 01-29-2024 take 1 tablet by eveline th once daily Levothyroxine Active 0 .ROUTE .COMPLEX January 29, 2024 1:10pm TAKE ONE TABLET BY MOUTH ONCE DAILY ON AN EMPTY STOMACH Start: 04-24-2023 End: 01-29-2024 take 1 tablet by mouth once daily in the morning Levothyroxine 88 mcg tablet Discontinued 88 MCG PO Every morning April 24, 2023 12:00am January 29, 2024 12:10pm Levothyroxine So dium 88 MCG TAKE 1 TABLET DAILY ON EMPTY STOMACH Active Levothyroxine 10 0 mcg cap Take 75 mcg by mouth once daily. 0 Active Comment on above: Take 75 mcg by mouth once daily. lisinopril 20 mg oral tablet (20 sources) Angiotensin Converting Enzyme Inhibitor Start: 03-20-2024 take 1 tablet by mouth twice daily Lisinopril 20 mg tablet Active 20 MG PO Twice daily March 19, 2024 11:00pm Start: 03-19-2024 End: 03-20-2024 take 1 tablet by mouth once daily Lisinopril 40 mg tablet Discontinued 40 MG PO Daily March 19, 2024 5:05pm March 20, 2024 1:30pm Start: 02-19-2024 End: 03-19-2024 Lisinopril 40 mg tablet Disc ontinued 30 MG PO Daily February 19, 2024 11:46am March 19, 2024 5:05pm Start: 02-19-2024 take 30 mg by mouth once daily Lisinopril Active 30 MG PO Daily February 19, 2024 12:46pm Start: 02-19-2024 End: 02-19-2024 take 1 tablet by mouth once daily Lisinopril 40 mg tablet Discontinued 40 MG PO Daily February 19, 2024 9:49am February 19, 2024 11:46am Start: 12-10-2023 End: 03-19-2024 take 1 tablet by mouth once daily Lisinopril 30 mg tablet Discontinued 30 MG PO Daily February 18, 2024 11:00pm March 19, 2024 5:05pm Start: 12-10-2023 End: 01-03-2024 take 2 tablets by mouth once daily, then take 3 tablets by mouth once daily Lisinopril 10 mg tablet Discontinued 10 MG PO Daily December 09, 2023 11:00pm January 03, 2024 10:35am Take w/ 20mg Lisinopril for total of 30mg qd Start: 12-10-2023 End: 01-03-2024 take 20 mg by mouth once daily, then take 30 mg by mouth once daily Lisinopril Discontinued 10 MG PO Daily December 10, 2023 12:00am January 03, 2024 11:35am Take w/ 20mg Lisinopril for total of 30mg qd Start: 12-07-2023 End: 12-10-2023 Lisinopril 30 mg tablet Disc ontinued 30 MG PO Daily December 07, 2023 11:30am December 10, 2023 3:47pm Add to Lisinopril 20mg (total 30mg/day) Start: 08-30-2023 End: 12-07-2023 take 1 tablet by mouth once daily Lisinopril 20 mg tablet Discontinued 0 .ROUTE .COMPLEX August 30, 2023 2:12pm December 07, 2023 5:33pm TAKE ONE TABLET BY MOUTH DAILY Start: 04-24-2023 End: 08-30-2023 take 1 tablet by mouth once daily in the morning Lisinopril 20 mg tablet Discontinued 20 MG PO Every morning April 24, 2023 12:00am August 30, 2023 2:12pm Comment on above: Take 20 mg by mouth once daily. 24 hr metoprolol succinate 25 mg extended release oral tablet (8 sources) beta-Adrenergic Melanie Start: 12-01-2023 take 2 tablets by mouth once daily Metoprolol Succinate 25 mg Tablet Extended Release 24 Hr Active 12.5 MG PO Daily November 30, 2023 11:00pm Start: 12-01-2023 take 12.5 mg by mout h once daily Metoprolol Succinate Active 12.5 MG PO Daily December 01, 2023 12:00am trelegy ellipta 200-62.5-25 mcg/act aerosol powder breath activated (5 sources) Start: 12-06-2022 take 1 puff(s) by inhalation once daily Trelegy Ellipta 200-62.5-25 MCG/ACT 1 puff Inhalation Once a day Nov, Active vitamin b12 1 mg/ml injectable solution (20 sources) Vitamin B12 Start: 05-17-2023 inject 1000 ug by intramuscular injection every month Cyanocobalamin (Vitamin B-12) 1,000 mcg/mL Solution Active 1000 MCG IM every month May 17, 2023 12:00am Start: 05-17-2023 inject 1000 ug by in tramuscular injection every month Cyanocobalamin (Vitamin B-12) Active 1000 MCG IM every month May 17, 2023 1:00am Vitamin B12 3000 MCG/ML as directed Sublingual Active Vitamin B12 3000 MCG/ML as directed Sublingual Active Completed/Discontinued Medications Medication Drug Class(es) Dates Sig (Normalized) Sig (Original) acetaminophen 500 mg oral tablet (20 sources) Start: 05-17-2023 End: 03-20-2024 take 1 tablet by mouth every six hours as needed for pain Acetaminophen 500 mg Tablet Discontinued 500 MG PO Q6H as needed for Pain May 17, 2023 12:00am March 20, 2024 1:29pm take 1 capsule by mouth every si [...] by mouth every 6 hours as needed. albuterol 0.833 mg/ml / ipratropium bromide 0.167 mg/ml inhalation solution (11 sources) Anticholinergic, beta2-Adrenergic Agonist Start: 09-16-2021 ipratropium-albuterol (DUONEB) 0.5 mg-3 mg(2.5 mg base)/3 mL [...] Channel Melanie Start: 04-24-20 End: 11-26-19 take 1 tablet by mouth once daily in the morning Amlodipine 10 mg tablet Discontinued 10 MG PO Every morning April 24, 2023 12:00am November 26, 2023 3:11pm Comment on above: Take 10 mg by [...] (Vitamin B-12) (Vitamin B-12) 100 mcg/mL Solution (16 sources) Start: 04-24-2023 End: 05-17-2023 Cyanocobalamin (Vitamin [...] LET SIT FOR 5 MINUTES BEFORE RINSING. spironolactone 25 mg oral tablet (8 sources) Aldosterone Antagonist Start: 12-01-2023 End: 02-19-2024 take 1 tablet by mouth once daily Spironolactone 25 mg Tablet Discontinued 25 MG PO Daily November 30, 2023 11:00pm February 19, 2024 11:45am temazepam 30 mg oral capsule (20 sources) Benzodiazepine Start: 02-01-2023 End: 01-28-2024 take 1 capsule by mouth once daily at bedtime Temazepam 30 mg capsule Discontinued 30 MG PO Daily at bedtime April 24, 2023 12:00am August 03, 2023 9:01am Start: 09-07-2022 take 1 capsule by mo [...] at bedtime. torsemide 20 mg oral tablet (10 sources) Loop Diuretic Start: 11-19-19 End: 11-30-19 take 1 tablet by mouth once daily in the morning Torsemide 20 mg tablet Discontinued 20 MG PO Every morning 7 November 18, 2023 11:00pm November 30, 2023 2:03pm Triamcinolone (20 sources) Corticosteroid Start: 12-30-19 Start: [...] (congestive) heart failure] Onset: 11-30-2023 11-19-2023 Chronic Comment on above: Echo: LVEF 55%, mild , normal RV size/function - 11/2023 Coronary atherosclerosis and other heart disease (20 sources) Atherosclerotic heart disease of [place] coronary artery with unstable angina pectoris; 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: [Coronary arteriosclerosis] Onset: 09-03-2018 Chronic Comment on above: Stress testing w/o i schemia - 11/2023 Deficiency and other anemia (2 sources) Anemia [...] sources) Polyuria; 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: [Polyuria] Onset: 08-30-2015 Episodic Hypertension with complications and secondary hypertension (2 sources) Hypertensive heart disease with heart failure; 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: [Hypertensive heart disease with heart failure] Onset: 03-19-2024 Chronic Immunizations and screening for infectious disease (2 sources) Vaccination given; 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: [Encounter for immunization] Episodic Miscellaneous mental health disorders (14 sources) Primary insomnia; 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: [Primary insomnia] 08-03-2023 [...] pathological fracture] Chronic Other aftercare (1 source) longterm (current) use of aspirin; 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: [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 (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) USE OF ASPIRIN] Onset: 09-03-2018 Episodic Other aftercare (2 sources) Long-term current use of drug therapy; 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: [Other penitentiary (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] Episodic Other circulatory disease [...] of falling] Episodic Other lower respiratory disease (4 sources) Dyspnea; 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: [Other forms of dyspnea] Onset: 04-16-2018 02-27-2024 Episodic Other lower respiratory disease (3 sources) Other forms of dyspnea; 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: [Other forms of dyspnea] Onset: 04-11-2023 Episodic Other nervous system disorders (18 sources) [...] Episodic Other nutritional; endocrine; and metabolic disorders (4 sources) Obesity; 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: [Obesity, unspecified] 02-19-2024 Chronic Other nutritional; endocrine; and metabolic disorders [...] index 31.0-31.9, adult] Onset: 10-27-2016 Chronic Other nutritional; endocrine; and metabolic disorders (2 sources) Obesity, unspecified; 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: [Obesity, unspecified] 02-19-2024 Chronic Other screening for suspected conditions (not [...] unspecified; 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: [Insomnia] Episodic Residual codes; unclassified (16 sources) H/O: radiation exposure; 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: [Personal history of irradiation] 04-24-2023 Episodic Residual codes; unclassified (7 sources) Personal history of irradiation; 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: [Personal history of irradiation, presenting hazards to health] 05-15-2023 Episodic Residual codes; unclassified (10 sources) Edema; 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: [Edema, unspecified] 11-19-2023 Episodic [...] 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: [Stage 3a chronic kidney disease N18.31] Coronary atherosclerosis and other heart disease (2 [...] 11-28-2019 Episodic Other aftercare (1 source) Other extermination inspector (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; 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: [OTH MISSILE 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 CURRENT DRUG THERAPY] Onset: 01-27-2022 Episodic Other gastrointestinal disorders (1 source) Digestive symptom; 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: [Other symptoms involving digestive system] Onset: 08-30-2015 Episodic Other lower respiratory disease (3 sources) Shortness of breath; 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: [SHORTNESS OF BREATH] Onset: 09-03-2018 Episodic Other skin disorders (1 source) Sebaceous [...] Test Name Value Interpretation Reference Range Facility Office Visiton 03-19-2024 Follow-up visit [id number] Clari Gibbs 1940 F Date Provider Department Center 03/19/2024 [facility]EFANIE [facility] Family History Problem Relation Age of Onset No Known Problems Mother No Known Problems Father Family Status - Relation Status Age at Mother Father Level of Service:53103 [place] OFFICE/OUTPATIENT ESTABLISHED MOD MDM 30 MIN Reason for Visit and Comments: Coronary Artery Disease [187] Congestive Heart Failure [127] Hypertension [953612] Normal [facility] Hemoglobin [Mass/volume] in Bloodon 02-25-2024 Hemoglobin (Bld) [Mass/Vol] 12.6 g/dL 12.0-16.0 [facility] Hemoglobin (Bld) [Mass/Vol] Hemoglobin [Mass/volume] in Blood 12.0-16.0 [facility] Estimated glomerular filtrat ion rate (GFR) non- Americanon 01-24-2024 GFR/1.73 sq M.predicted among non-blacks MDRD (S/P/Bld) [Vol rate/Area] 48 mL/min/{1.73_m2} Low >=60 [facility] Laboratory - Chemistry and C hemistry - challengeon 01-24-2024 Calcium [Mass/Vol] 9.4 mg/dL 8.5-10.1 [facility] Chloride [Moles/Vol] 109 mmol/L High 98-107 [facility] CO2 [Moles/Vol] 22.4 mmol/L 21.0-32.0 [facility] Creatinine [Mass/Vol] 1.09 mg/dL High 0.55-1.02 [facility] GFR/1.73 sq M.predicted MDRD (S/P/Bld) [Vol rate/Area] 58 mL/min/{1.73_m2} Low >=60 [facility] Glucose [Mass/Vol] 97 mg/dL 74-106 [facility] Potassium [Moles/Vol] 4.6 mmol/L 3.5-5.1 [facility] Sodium [Moles/Vol] 143 mmol/L 136-145 [facility] Urea nitrogen [Mass/Vol] 23.0 mg/dL High 7.0-18.0 [facility] Urea nitrogen/Creatinine [Mass ratio] 21.1 mg/mg [facility] Serum or plasma anion gap de termination01-24-2024 Anion gap [Moles/Vol] 16.2 mmol/L [facility] 2901-23-2024 29 Addended by: VIRI MAZARIEGOS on: 01/23/2024 04:03 PM Modules accepted: Orders [facility] 36on 08-14-2024 36 Spoke with patient a nd made her aware. She will have repeat BMP within the next few days. Order faxed to [facility]. Normal [facility] 36on 01-17-2024 36 I reviewed the blood pressure readings and the blood test from 01/17/2024. Blood pressure is better. Renal function is improving. Still not at baseline. Please ask her to continue to hold diuretics. She should get BMP in 1 week. Normal [facility] Estimated glomerular filtrat ion rate (GFR) non- Americanon 01-17-2024 GFR/1.73 sq M.predicted among non-blacks MDRD (S/P/Bld) [Vol rate/Area] 36 mL/min/{1.73_m2} Low >=60 [facility] Laboratory - Chemistry and C hemistry - challengeon 01-17-2024 Calcium [Mass/Vol] 9.5 mg/dL 8.5-10.1 [facility] Chloride [Moles/Vol] 108 mmol/L High 98-107 [facility] CO2 [Moles/Vol] 22.3 mmol/L 21.0-32.0 [facility] Creatinine [Mass/Vol] 1.40 mg/dL High 0.55-1.02 [facility] GFR/1.73 sq M.predicted MDRD (S/P/Bld) [Vol rate/Area] 43 mL/min/{1.73_m2} Low >=60 [facility] Glucose [Mass/Vol] 133 mg/dL High 74-106 [facility] Potassium [Moles/Vol] 4.8 mmol/L 3.5-5.1 [facility] Sodium [Moles/Vol] 141 mmol/L 136-145 [facility] Urea nitrogen [Mass/Vol] 55.0 mg/dL High 7.0-18.0 [facility] Urea nitrogen/Creatinine [Mass ratio] 39.3 mg/mg [facility] Serum or plasma anion gap de terminationon 01-17-2024 Anion gap [Moles/Vol] 15.5 mmol/L [facility] Telephoneon 01-17-2024 Telephone [id number] Clari Gibbs 1940 F Date Provider Department Center 01/17/2024 Cherelle-TRAVISBALA [facility] Family History Problem Relation Age of Onset No Known Problems Mother No Known Problems Father Family Status - Relation Status Age at Mother Father [facility] 36on 01-15-2024 36 Spoke with patient a nd told her I faxed BMP order to [facility]. She will have it drawn on she said. [facility] Estimated glomerular filtrat ion rate (GFR) non- Americanon 01-14-2024 GFR/1.73 sq M.predicted among non-blacks MDRD (S/P/Bld) [Vol rate/Area] 22 mL/min/{1.73_m2} Low >=60 [facility] Laboratory - Chemistry and C hemistry - challengeon 01-14-2024 Calcium [Mass/Vol] 9.2 mg/dL 8.5-10.1 [facility] Chloride [Moles/Vol] 105 mmol/L 98-107 [facility] CO2 [Moles/Vol] 22.6 mmol/L 21.0-32.0 [facility] Creatinine [Mass/Vol] 2.10 mg/dL High 0.55-1.02 [facility] GFR/1.73 sq M.predicted MDRD (S/P/Bld) [Vol rate/Area] 27 mL/min/{1.73_m2} Low >=60 [facility] Glucose [Mass/Vol] 126 mg/dL High 74-106 [facility] Potassium [Moles/Vol] 5.2 mmol/L High 3.5-5.1 [facility] Sodium [Moles/Vol] 140 mmol/L 136-145 [facility] Urea nitrogen [Mass/Vol] 76.0 mg/dL High 7.0-18.0 [facility] Comment on above: RESULTS CALLED TO IRENE MANDEL @BY Gemini Carpenter at 1334 Urea nitrogen/Creatinine [Mass ratio] 36.2 mg/mg [facility] Serum or plasma anion gap de terminationon 01-14-2024 Anion gap [Moles/Vol] 17.6 mmol/L [facility] Telephoneon 01-14-2024 Telephone [id number] Clari Gibbs ty L 1940 F Date Provider Department Center 01/14/2024 SONA LINDER EMIL [facility] Family History Problem Relation Age of Onset No Known Problems Mother No Known Problems Father Family Status - Relation Status Age at Mother Father Normal [facility] Office Visiton 12-31-2023 Follow-up visit [id number] Clari Gibbs L 1940 Date Provider Department Center 12/31/2023 BALA MORGAN [facility] Family History Problem Relation Age of Onset No Known Problems Mother No Known Problems Father Family Status - Relation Status Age at Mother Father Level of Service:92858 [place] OFFICE/OUTPATIENT ESTABLISHED MOD MDM 30 MIN Normal [facility] 36on 12-03-2023 36 Patient called to garfield reardon aware that she presented to [facility] ED over the weekend for chest pain. I have scanned the records into [employer] for your review. You ordered an echo 2 weeks ago when you saw her. They did one while she was inpatient. She is scheduled in a week or so at [facility] for the stress test you ordered. Thanks! Normal [facility] US venous duplex LE BIon US venous duplex LE [facility] [place] [place] [address] Ultrasound Report Signed Patient: Nora Gibbs MR#: [id number] : 1940 Acct:[id number] Age/Sex: 83 / F ADM Date: 11/30/23 Loc: Room: [address] [place] [address] Type: DIS INOo Attending Dr: Jim Clay [...] Joe Moscoso MD12/03/2023 3:59 PM Dictation Location: [place] [address] Tech: Betty Mccarty Transcribed By: ALEXANDER 12/03/23 1559 Dictated By: Joe Moscoso MD 12/03/23 1558 Signed By: 12/03/23 155 Normal [facility] A1C with Estimated Average Shady vega 12-01-2023 Glucose [Mass/Vol] 137 mg/dL Normal [facility] Comment on above: Result Comment: PERF ORMED BY: [facility] [address] [place] [id number] PATHOLOGIST RESTORATIVE [employer] EMBALMER JUDY RASMUSSEN M.D. Performed By: #### L IPID, HS TROP, A1C WTH eA, MG, BMP, CBC ####[place] [id number] [facility] Automated basophil %Ordered By: Jim Clay on 12-01-2023 Basophils/100 WBC (Bld) 0.8 % . [facility] Comment on above: Performed By: #### L IPID, HS TROP, A1C WTH eA, MG, BMP, CBC ####[place] [id number] [facility] Automated basophil countOrde red By: Jim Clay on 12-01-2023 Basophils (Bld) [#/Vol] 0.0 10*3/uL 0.0-0.2 [facility] Comment on above: Result Comment: PERF ORMED BY: [facility] [address] [place] [id number] PATHOLOGIST RESTORAT[employer] E[employer]ALMER JUDY RASMUSSEN M.D. Performed By: #### L IPID, HS TROP, A1C WTH eA, MG, BMP, CBC ####[place] [id number] [place] Automated blood monocyte cou ntOrdered By: Jim Clay on 12-01-2023 Monocytes (Bld) [#/Vol] 0.7 10*3/uL 0.0-0.8 [facility] Comment on above: Performed By: #### L IPID, HS TROP, A1C WTH eA, MG, BMP, CBC ####[address] Automated eosinophil %Ordere d By: Jim Clay on 12-01-2023 Eosinophils/100 WBC (Bld) 2.8 % . [facility] Comment on above: Performed By: #### L IPID, HS TROP, A1C WTH eA, MG, BMP, CBC ####[address] Automated eosinophil countOr dered By: Jim Clay on 12-01-2023 Eosinophils (Bld) [#/Vol] 0.2 10*3/uL 0.0-0.45 [facility] Comment on above: Performed By: #### L IPID, HS TROP, A1C WTH eA, MG, BMP, CBC ####[address] Automated monocyte %Ordered By: Jim Clay on 12-01-2023 Monocytes/100 WBC (Bld) 11.5 % . [facility] Comment on above: Performed By: #### L IPID, HS TROP, A1C WTH eA, MG, BMP, CBC ####[address] Automated neutrophil %Ordere d By: Jim Clay on 12-01-2023 Neutrophils/100 WBC (Bld) 62.6 % . [facility] Comment on above: Performed By: #### L IPID, HS TROP, A1C WTH eA, MG, BMP, CBC ####[address] Basic Metabolic Panelon 11-10 Creatinine Clr Calc Pharmacy 47.06 Normal [facility] Comment on above: Performed By: #### L IPID, HS TROP, A1C WTH eA, MG, BMP, CBC ####[place] [address] [place] [id number] [place] GFR/1.73 sq M.predicted MDRD (S/P/Bld) [Vol rate/Area] mL/min/{1.73_m2} Normal [facility] Comment on above: Performed By: #### L IPID, HS TROP, A1C WTH eA, MG, BMP, CBC ####[place] [id number] [place] Calcium [Mass/volume] in Ser um or PlasmaOrdered By: Jim Clay on 12-01-2023 Calcium [Mass/Vol] 8.7 mg/dL 8.6-10.3 [facility] Comment on above: Performed By: #### L IPID, HS TROP, A1C WTH eA, MG, BMP, CBC ####[place] [id number] [place] Carbon dioxide, total [Moles /volume] in Serum or PlasmaOrdered By: Jim Clay on 12-01-2023 CO2 [Moles/Vol] 22.8 mmol/L 21.0-31.0 [facility] Comment on above: Performed By: #### L IPID, HS TROP, A1C WTH eA, MG, BMP, CBC ####[place] [id number] [place] Chloride [Moles/volume] in S tyron or PlasmaOrdered By: Jim Clay on 12-01-2023 Chloride [Moles/Vol] 112 mmol/L High 98-107 [facility] Comment on above: Performed By: #### L IPID, HS TROP, A1C WTH eA, MG, BMP, CBC ####[place] [id number] [place] Cholesterol [Mass/volume] in Serum or PlasmaOrdered By: Jim Clay on 12-01-2023 Cholesterol [Mass/Vol] 109 mg/dL Low 140-200 [facility] Comment on above: Chol less than 200 m g/dl low riskChol 201-239 mg/dl borderline riskChol 240 mg/dl and greater high risk Result Comment: Chol less than 200 mg/dl low risk Chol 201-239 mg/dl borderline risk Chol 240 mg/dl and greater high risk Performed By: #### L IPID, HS TROP, A1C WTH eA, MG, BMP, CBC ####[place] [address] [place] [id number] [facility] Cholesterol in LDL Calc [Mas s/Vol]Ordered By: Jim Clay on 12-01-2023 Cholesterol in LDL [Mass/Vol] 37 mg/dL 0-100 [facility] Comment on above: LDL ATP III CLASSIFI CATIONLDL less than 100 mg/dL OptimalLDL 100-129 mg/dL Near or above optimalLDL 130-159 mg/dL Borderline highLDL 160-189 mg/dL HighLDL greater than 189 mg/dL Very high Cholesterol in VLDL Calc [Ma ss/Vol]Ordered By: Jim Clay on 12-01-2023 Cholesterol in VLDL [Mass/Vol] 34 mg/dL [facility] Complete Blood Count Auto Di ffon 12-01-2023 Mean Corpuscular HGB Conc 33.4 g/dL Normal 32.0-35.0 [facility] Comment on above: Performed By: #### L IPID, HS TROP, A1C WTH eA, MG, BMP, CBC ####[place] [address] NRBC% 0.1 /100{WBC} Normal 0-0.5 [facility] Comment on above: Performed By: #### L IPID, HS TROP, A1C WTH eA, MG, BMP, CBC ####[place] [address] [place] [id number] [facility] Creatinine [Mass/volume] in Serum or PlasmaOrdered By: Jim Clay on 12-01-2023 Creatinine [Mass/Vol] 0.84 mg/dL 0.60-1.20 [facility] Comment on above: Performed By: #### L IPID, HS TROP, A1C WTH eA, MG, BMP, CBC ####[place] [address] [place] [id number] [facility] echo transthoracicon [facility] echo transthoracic [facility] [address] [place] [address] [place] [address] Echocardiogram Signed Patient: Nora Gibbs MR#: [id number] : 1940 Acct:[id number] Age/Sex: 83 / F ADM Date: 11/30/23 Loc: Room: [address] [place] [address] Type: ADM INOo Attending Dr: Jim Clay DO Ordering Provider: Jim Clay DO Date of Service: 12/01/23 [facility] echo transthoracic: chest pain Copies to: DO [...] Margarito Ballesteros MD 12/01/23 1449 Normal [facility] Erythrocyte distribution wid th [Ratio] by Automated countOrdered By: Jim Clay on 12-01-2023 Erythrocyte distribution width (RBC) [Ratio] 13.4 % 11.9-15.3 [facility] Comment on above: Performed By: #### L IPID, HS TROP, A1C WTH eA, MG, BMP, CBC ####[facility] [address] [place] [address] [facility] Erythrocytes [#/volume] in B lood by Automated countOrdered By: Jim Clay on 12-01-2023 RBC (Bld) [#/Vol] 3.81 10*6/uL 3.60-5.00 [facility] Comment on above: Performed By: #### L IPID, HS TROP, A1C WTH eA, MG, BMP, CBC ####[facility] [place] [address] [facility] Glucose [Mass/volume] in Ser um or PlasmaOrdered By: Jim Clay on 12-01-2023 Glucose [Mass/Vol] 100 mg/dL 70-100 [facility] Comment on above: ADA recommended refe rence rangeRandom Glucose Reference Range is dependent on time and content of last meal. Glucose of more than 200 mg/dL in a nonstressed, ambulatory subject supports the diagnosis of Diabetes Mellitus. Result Comment: [place] om Glucose Reference Range is dependent on time and content of last meal. Glucose of more than 200 mg/dL in a nonstressed, ambulatory subject supports the diagnosis of Diabetes Mellitus. ADA recommended reference range Performed By: #### L IPID, HS TROP, A1C WTH eA, MG, BMP, CBC ####[facility] [place] [id number] [facility] Glucose mean value [Mass/vol ume] in Blood Estimated from glycated hemoglobinOrdered By: Jim Clay on 12-01-2023 Average glucose Estimated from glycated hemoglobin (Bld) [Mass/Vol] 137 mg/dL [facility] Hematocrit [Volume Fraction] of Blood by Automated countOrdered By: Jim Clay on 12-01-2023 Hematocrit (Bld) [Volume fraction] 34.9 % 34.0-46.4 [facility] Comment on above: Performed By: #### L IPID, HS TROP, A1C WTH eA, MG, BMP, CBC ####[facility] [place] [address] [facility] Hemoglobin A1c percentageOrd ered By: Jim Clay on 12-01-2023 HbA1c (Bld) [Mass fraction] 6.4 % High 4.3-5.6 [facility] Comment on above: Increased risk for d iabetes: 5.7 - 6.4diabetes: >6.4glycemic control for adults with diabetes: <7.0 Result Comment: Incr eased risk for diabetes: 5.7 - 6.4 diabetes: >6.4 glycemic control for adults with diabetes: <7.0 Performed By: #### L IPID, HS TROP, A1C WTH eA, MG, BMP, CBC ####[facility] Hemoglobin [Mass/volume] in BloodOrdered By: Jim Clay on 12-01-2023 Hemoglobin (Bld) [Mass/Vol] 11.7 g/dL Low 11.8-15.4 [facility] Comment on above: Performed By: #### L IPID, HS TROP, A1C WTH eA, MG, BMP, CBC ####[facility] [place] [id number] [facility] Leukocytes [#/volume] correc katia for nucleated erythrocytes in Blood by Automated counOrdered By: Jim Clay on 12-01-2023 WBC corrected for nucl RBC Auto (Bld) [#/Vol] 6.4 10*3/uL 3.8-11.6 [facility] Leukocytes [#/volume] in Blo od by Automated countOrdered By: Jim Clay on 12-01-2023 WBC (Bld) [#/Vol] 6.4 10*3/uL 3.8-11.6 [facility] Comment on above: Performed By: #### L IPID, HS TROP, A1C WTH eA, MG, BMP, CBC ####[place] [address] Lipid Panelon 12-01-2023 LDL Cholesterol,Calculated 37 mg/dL Normal 0-100 [facility] Comment on above: Result Comment: LDL ATP III CLASSIFICATION LDL less than 100 mg/dL Optimal LDL 100-129 mg/dL Near or above optimal LDL 130-159 mg/dL Borderline high LDL 160-189 mg/dL High LDL greater than 189 mg/dL Very high Performed By: #### L IPID, HS TROP, A1C WTH eA, MG, BMP, CBC ####[facility] [place] [id number] [facility] Triglyceride w/Reflex 171 mg/dL High 0-149 [facility] Comment on above: Result Comment: TRIG ATP III CLASSIFICATION TRIG less than 150 mg/dL Normal TRIG 150-199 mg/dL Borderline high TRIG 200-500 mg/dL High TRIG greater than 500 mg/dL Very high Standard traceable to the Center for Disease Conrtrol and Prevention (CDC) test method. Performed By: #### L IPID, HS TROP, A1C WTH eA, MG, BMP, CBC ####[address] VLDL CHOLESTEROL 34 mg/dL Normal [facility] Comment on above: Performed By: #### L IPID, HS TROP, A1C WTH eA, MG, BMP, CBC ####[address] Lymphocytes [#/volume] in Bl ood by Automated countOrdered By: Jim Clay on 12-01-2023 Lymphocytes (Bld) [#/Vol] 1.4 10*3/uL 1.00-4.8 [facility] Comment on above: Performed By: #### L IPID, HS TROP, A1C WTH eA, MG, BMP, CBC ####[address] Lymphocytes/100 leukocytes i n Blood by Automated countOrdered By: Jim Clay on 12-01-2023 Lymphocytes/100 WBC (Bld) 22.3 % . [facility] Comment on above: Performed By: #### L IPID, HS TROP, A1C WTH eA, MG, BMP, CBC ####[address] MCH [Entitic mass] by Automa katia countOrdered By: Jim Clay on 12-01-2023 MCH (RBC) [Entitic mass] 30.5 pg 24.7-34.3 [facility] Comment on above: Performed By: #### L IPID, HS TROP, A1C WTH eA, MG, BMP, CBC ####[address] MCHC Auto (RBC) [Mass/Vol]Or dered By: Jim Clay on 12-01-2023 MCHC (RBC) [Mass/Vol] 33.4 g/dL 32.0-35.0 [facility] MCV [Entitic volume] by Auto mated countOrdered By: Jim Clay on 12-01-2023 MCV (RBC) [Entitic vol] 91.5 fL 80-100 [facility] Comment on above: Performed By: #### L IPID, HS TROP, A1C WTH eA, MG, BMP, CBC ####[facility] [id number] Magnesium [Mass/volume] in S tyron or PlasmaOrdered By: Jim Clay on 12-01-2023 Magnesium [Mass/Vol] 1.7 mg/dL Low 1.9-2.7 [facility] Comment on above: Performed By: #### L IPID, HS TROP, A1C WTH eA, MG, BMP, CBC ####[facility] [id number] [address] Neutrophils [#/volume] in Bl ood by Automated countOrdered By: Jim Clay on 12-01-2023 Neutrophils (Bld) [#/Vol] 4.0 10*3/uL 1.8-7.7 [facility] Comment on above: Performed By: #### L IPID, HS TROP, A1C WTH eA, MG, BMP, CBC ####[facility] [id number] [address] No Panel InformationOrdered By: Jim Clay on 12-01-2023 Estimated GFR (CKD-EPI) > 60.0 mL/Min [facility] Creatinine Clearance (Chem 47.06 [facility] Nucleated erythrocytes [Pres ence] in Blood by Automated countOrdered By: Jim Clay on 12-01-2023 Nucleated RBC Auto Ql (Bld) 0.1 /100{WBC} 0-0.5 [facility] Platelet mean volume [Entiti c volume] in Blood by Automated countOrdered By: Jim Clay on 12-01-2023 Platelet mean volume (Bld) [Entitic vol] 10.0 fL 6.3-10.7 [facility] Comment on above: Performed By: #### L IPID, HS TROP, A1C WTH eA, MG, BMP, CBC ####[facility] [id number] [address] Platelets [#/volume] in Bloo d by Automated countOrdered By: Jim Clay on 12-01-2023 Platelets (Bld) [#/Vol] 203 10*3/uL 150-450 [facility] Comment on above: Performed By: #### L IPID, HS TROP, A1C WTH eA, MG, BMP, CBC ####[facility] [id number] [address] Potassium [Moles/volume] in Serum or PlasmaOrdered By: Jim Clay on 12-01-2023 Potassium [Moles/Vol] 4.3 mmol/L 3.5-5.1 [facility] Comment on above: Performed By: #### L IPID, HS TROP, A1C WTH eA, MG, BMP, CBC ####[place] [address] Serum or plasma anion gap de terminationOrdered By: Jim Clay on 12-01-2023 Anion gap [Moles/Vol] 11.5 mmol/L 6.0-15.0 [facility] Comment on above: Performed By: #### L IPID, HS TROP, A1C WTH eA, MG, BMP, CBC ####[place] [address] Serum or plasma high density lipoprotein (HDL) cholesterol measurementOrdered By: Jim Clay on 12-01-2023 Cholesterol in HDL [Mass/Vol] 38 mg/dL 23- [facility] Comment on above: HDL CHOL ATP-III CLA SSIFICATION Cardiovascular RiskHDL > or equal to 60 mg/dL LOWHDL < 40 mg/dL HIGH Result Comment: HDL CHOL ATP-III CLASSIFICATION Cardiovascular Risk HDL > or equal to 60 mg/dL LOW HDL < 40 mg/dL HIGH Performed By: #### L IPID, HS TROP, A1C WTH eA, MG, BMP, CBC ####[place] [address] Serum or plasma total choles terol/high density lipoprotein (HDL) cholesterol mass ratOrdered By: Jim Clay on 12-01-2023 Cholesterol.total/Chol esterol in HDL [Mass ratio] 2.9 {ratio} <5.0 [facility] Comment on above: Result Comment: PERF ORMED BY: [facility] [address] [place] [address] PATHOLOGIST [employer]ORATIVE [employer]MBAL[employer] JUDY RASMUSSEN M.D. Performed By: #### L IPID, HS TROP, A1C WTH eA, MG, BMP, CBC ####[facility] [id number] [place] [address] [place] Sodium [Moles/volume] in Ser um or PlasmaOrdered By: Jim Clay on 12-01-2023 Sodium [Moles/Vol] 142 mmol/L 136-145 [facility] Comment on above: Performed By: #### L IPID, HS TROP, A1C WTH eA, MG, BMP, CBC ####[place] [address] [place] [address] [facility] Triglyceride [Mass/volume] i n Serum or PlasmaOrdered By: Jim Clay on 12-01-2023 Triglyceride [Mass/Vol] 171 mg/dL High 0-149 [facility] Comment on above: TRIG ATP III CLASSIF ICATIONTRIG less than 150 mg/dL NormalTRIG 150-199 mg/dL Borderline highTRIG 200-500 mg/dL High TRIG greater than 500 mg/dL Very highStandard traceable to the Center for Disease Conrtrol and Prevention (CDC) test method. Troponin I High Sensitivityo n 12-01-2023 Troponin I High Sensitivity 9.5 pg/mL Normal 0.0-15.0 [facility] Comment on above: Result Comment: PERF ORMED BY: [facility] [address] [place] [address] PATHOLOGIST [employer]OR[employer]AL[employer] JUDY RASMUSSEN M.D. Performed By: #### L IPID, HS TROP, A1C WTH eA, MG, BMP, CBC ####[place] [address] [place] [address] [facility] Troponin I.cardiac [Mass/vol ume] in Serum or Plasma by Detection limit <= 0.01 ng/Ordered By: Jim Clay on 12-01-2023 Troponin I.cardiac DL <= 0.01 ng/mL [Mass/Vol] 9.5 pg/mL 0.0-15.0 [facility] Urea nitrogen [Mass/volume] in Serum or PlasmaOrdered By: Jim Clay on 12-01-2023 Urea nitrogen [Mass/Vol] 21 mg/dL 01-02 [facility] Comment on above: Performed By: #### L IPID, HS TROP, A1C WTH eA, MG, BMP, CBC ####[facility] [id number] [address] Activated partial thrombopla stin time (aPTT) in platelet poor plasma by coagulation aOrdered By: Nika Fagan on 11-30-2023 aPTT Coag (PPP) [Time] 29.1 s 25.1-36.5 [facility] Comment on above: A hematocrit value g reater than 55% may lead to inaccurate results in coagulation testing. Patients having hematocrit values >55% require a special collection tube for coagulation studies. Please contact the laboratory at [phone] for redraw instructions. Alanine aminotransferase [En zymatic activity/volume] in Serum or PlasmaOrdered By: Nika Fagan on 11-30-2023 ALT [Catalytic activity/Vol] 20 U/L [facility] Comment on above: Performed By: #### C BC, BNP, PTT, DDIMER, HS TROP, PT, CMP #### [facility] [address] [place] [address] [place] Albumin [Mass/volume] in Ser um or Plasma by Bromocresol green (BCG) dye binding methoOrdered By: Nika Fagan on 11-30-2023 Albumin BCG dye [Mass/Vol] 4.1 g/dL 3.5-5.7 [facility] Alkaline phosphatase [Enzyma tic activity/volume] in Serum or PlasmaOrdered By: Nika Fagan on 11-30-2023 ALP [Catalytic activity/Vol] 89 U/L 34104 [facility] Comment on above: Performed By: #### C BC, BNP, PTT, DDIMER, HS TROP, PT, CMP #### [address] Aspartate aminotransferase [ Enzymatic activity/volume] in Serum or PlasmaOrdered By: Nika Fagan on 11-30-2023 AST [Catalytic activity/Vol] 25 U/L 13-39 [facility] Comment on above: Performed By: #### C BC, BNP, PTT, DDIMER, HS TROP, PT, CMP #### [address] Automated basophil %Ordered By: Nika Fagan on 11-30-2023 Basophils/100 WBC (Bld) 0.6 % Normal . [facility] Comment on above: Performed By: #### C BC, BNP, PTT, DDIMER, HS TROP, PT, CMP #### [address] Automated basophil countOrde red By: Nika Fagan on 11-30-2023 Basophils (Bld) [#/Vol] 0.0 10*3/uL Normal 0.0-0.2 [facility] Comment on above: Result Comment: PERF ORMED BY: [place] [address] PATHOLOGIST [employer]AL[employer] JUDY RASMUSSEN M.D. Performed By: #### C BC, BNP, PTT, DDIMER, HS TROP, PT, CMP #### [address] Automated blood monocyte cou ntOrdered By: Nika Fagan on 11-30-2023 Monocytes (Bld) [#/Vol] 0.6 10*3/uL Normal 0.0-0.8 [facility] Comment on above: Performed By: #### C BC, BNP, PTT, DDIMER, HS TROP, PT, CMP #### [address] Automated eosinophil %Ordere d By: Nika Fagan on 11-30-2023 Eosinophils/100 WBC (Bld) 2.8 % Normal . [facility] Comment on above: Performed By: #### C BC, BNP, PTT, DDIMER, HS TROP, PT, CMP #### [address] Automated eosinophil countOr dered By: Nika Fagan on 11-30-2023 Eosinophils (Bld) [#/Vol] 0.2 10*3/uL Normal 0.0-0.45 [facility] Comment on above: Performed By: #### C BC, BNP, PTT, DDIMER, HS TROP, PT, CMP #### [address] Automated monocyte %Ordered By: Nika Fagan on 11-30-2023 Monocytes/100 WBC (Bld) 9.8 % Normal . [facility] Comment on above: Performed By: #### C BC, BNP, PTT, DDIMER, HS TROP, PT, CMP #### [address] Automated neutrophil %Ordere d By: Nika Fagan on 11-30-2023 Neutrophils/100 WBC (Bld) 66.7 % Normal . [facility] Comment on above: Performed By: #### C BC, BNP, PTT, DDIMER, HS TROP, PT, CMP #### [address] BNP ser/plasOrdered By: Mono Fagan on 11-30-2023 Natriuretic peptide B (Bld) [Mass/Vol] 274.0 pg/mL High 5-100 [facility] Comment on above: Result Comment: PERF ORMED BY: [place] [address] PATHOLOGIST [employer]AL[employer] JUDY RASMUSSEN M.D. Performed By: #### C BC, BNP, PTT, DDIMER, HS TROP, PT, CMP #### [address] Bilirubin.total [Mass/volume ] in Serum or PlasmaOrdered By: Nika Fagan on 11-30-2023 Bilirubin [Mass/Vol] 0.5 mg/dL 0.3-1.0 [facility] Comment on above: Performed By: #### C BC, BNP, PTT, DDIMER, HS TROP, PT, CMP #### [facility] [address] [place] [id number] [facility] CT angio chest PE protocolon 11-30-2023 CT angio chest PE protocol [facility] [address] [place] [address] [place] [address] CT Scan Report Signed Patient: Nora Gibbs MR#: [id number] : 1940 Acct:[id number] Age/Sex: 83 / F ADM Date: 11/30/23 Loc: ER Room: Type: [facility] ER Attending Dr: Copies to: Nika [...] Mahendra Chandler M.D.11/30/2023 12:06 PM Dictation Location: [id number]-01 Transcribed By: ALEXANDER 11/30/23 1206 Dictated By: Mahendra Chandler DO 11/30/23 1200 Signed By: 11/30/23 1206 Normal [facility] Calcium [Mass/volume] in Ser um or PlasmaOrdered By: Nika Fagan on 11-30-2023 Calcium [Mass/Vol] 9.4 mg/dL Normal 8.6-10.3 [facility] Comment on above: Performed By: #### C BC, BNP, PTT, DDIMER, HS TROP, PT, CMP #### [address] Carbon dioxide, total [Moles /volume] in Serum or PlasmaOrdered By: Nika Fagan on 11-30-2023 CO2 [Moles/Vol] 20.0 mmol/L Low 21.0-31.0 [facility] Comment on above: Performed By: #### C BC, BNP, PTT, DDIMER, HS TROP, PT, CMP #### [address] Chloride [Moles/volume] in S tyron or PlasmaOrdered By: Nika Fagan on 11-30-2023 Chloride [Moles/Vol] 111 mmol/L High 98-107 [facility] Comment on above: Performed By: #### C BC, BNP, PTT, DDIMER, HS TROP, PT, CMP #### [address] Complete Blood Count Auto Di ffon 11-30-2023 Mean Corpuscular HGB Conc 33.0 g/dL Normal 32.0-35.0 [facility] Comment on above: Performed By: #### C BC, BNP, PTT, DDIMER, HS TROP, PT, CMP #### [place] [address] [place] Monocytes/100 WBC (Bld) 16.37 % Normal 0.00-20.00 [facility] Comment on above: Performed By: #### C BC, BNP, PTT, DDIMER, HS TROP, PT, CMP #### [place] [address] [place] NRBC% 0.1 /100{WBC} Normal 0-0.5 [facility] Comment on above: Performed By: #### C BC, BNP, PTT, DDIMER, HS TROP, PT, CMP #### [address] Comprehensive Metabolic Pane vianey 11-30-2023 Albumin [Mass/Vol] 4.1 g/dL Normal 3.5-5.7 [facility] Comment on above: Performed By: #### C BC, BNP, PTT, DDIMER, HS TROP, PT, CMP #### [address] Creatinine Clr Calc Pharmacy 43.90 Normal [facility] Comment on above: Result Comment: PERF ORMED BY: [place] [address] PATHOLOGIST RESTORATIVE [employer]AL[employer] JUDY RASMUSSEN M.D. Performed By: #### C BC, BNP, PTT, DDIMER, HS TROP, PT, CMP #### [address] GFR/1.73 sq M.predicted MDRD (S/P/Bld) [Vol rate/Area] mL/min/{1.73_m2} Normal [facility] Comment on above: Performed By: #### C BC, BNP, PTT, DDIMER, HS TROP, PT, CMP #### [address] Creatinine [Mass/volume] in Serum or PlasmaOrdered By: Nika Fagan on 11-30-2023 Creatinine [Mass/Vol] 0.91 mg/dL Normal 0.60-1.20 [facility] Comment on above: Performed By: #### C BC, BNP, PTT, DDIMER, HS TROP, PT, CMP #### [address] D-Dimer High Sensitivityon 0 11-30-2023 D-Dimer High Sensitivity 734 ng/mL High 0-243 [facility] Comment on above: Result Comment: [...] coagulation studies. Please contact the laboratory at [phone] for redraw instructions. PERFORMED BY: [place] [address] PATHOLOGIST RESTORATIVE [employer]AL[employer] JUDY RASMUSSEN M.D. Performed By: #### C BC, BNP, PTT, DDIMER, HS TROP, PT, CMP ####[facility] [facility] [id number] [place] [id number] [facility] ECG 12 lead ECGon 11-30-2023 ECG 12 lead ECG [facility] Main [place] [address] [place] [address] Electrocardiograph Report Signed Patient: Nora Gibbs MR#: [id number] : 1940 Acct:[id number] Age/Sex: 83 / F ADM Date: 11/30/23 Loc: Room: [address] [place] [address] Type: ADM INOo Attending Dr: Jim Clay [...] Lateral leads Confirmed by Kole Damon DO ([id number]) on 11/30/2023 3:08:44 PM Referred By: Electronically Signed By:Kole Damon DO Transcribed By: MUS Signed By Kole Damon DO 4 1509 Normal [facility] Erythrocyte distribution wid th [Ratio] by Automated countOrdered By: Nika Fagan on 11-30-2023 Erythrocyte distribution width (RBC) [Ratio] 13.4 % Normal 11.9-15.3 [facility] Comment on above: Performed By: #### C BC, BNP, PTT, DDIMER, HS TROP, PT, CMP #### [facility] [address] Erythrocytes [#/volume] in B lood by Automated countOrdered By: Nika Fagan on 11-30-2023 RBC (Bld) [#/Vol] 4.17 10*6/uL Normal 3.60-5.00 [facility] Comment on above: Performed By: #### C BC, BNP, PTT, DDIMER, HS TROP, PT, CMP #### [facility] [address] Fibrin D-dimer [Presence] in Platelet poor plasma by Latex agglutinationOrdered By: Nika Fagan on 11-30-2023 Fibrin D-dimer LA Ql (PPP) 734 ng/mL High 0-243 [facility] Comment on above: The reference range [...] coagulation studies. Please contact the laboratory at [phone] for redraw instructions. Glucose [Mass/volume] in Ser um or PlasmaOrdered By: Nika Fagan on 11-30-2023 Glucose [Mass/Vol] 121 mg/dL High 70-100 [facility] Comment on above: ADA recommended refe rence rangeRandom Glucose Reference Range is dependent on time and content of last meal. Glucose of more than 200 mg/dL in a nonstressed, ambulatory subject supports the diagnosis of Diabetes Mellitus. Result Comment: [place] om Glucose Reference Range is dependent on time and content of last meal. Glucose of more than 200 mg/dL in a nonstressed, ambulatory subject supports the diagnosis of Diabetes Mellitus. ADA recommended reference range Performed By: #### C BC, BNP, PTT, DDIMER, HS TROP, PT, CMP #### [facility] [address] Hematocrit [Volume Fraction] of Blood by Automated countOrdered By: Nika Fagan on 11-30-2023 Hematocrit (Bld) [Volume fraction] 37.9 % Normal 34.0-46.4 [facility] Comment on above: Performed By: #### C BC, BNP, PTT, DDIMER, HS TROP, PT, CMP #### [facility] [address] Hemoglobin [Mass/volume] in BloodOrdered By: Nika Fagan on 11-30-2023 Hemoglobin (Bld) [Mass/Vol] 12.5 g/dL Normal 11.8-15.4 [facility] Comment on above: Performed By: #### C BC, BNP, PTT, DDIMER, HS TROP, PT, CMP #### [facility] [address] [place] [address] [place] INR in Platelet poor plasma by Coagulation assayOrdered By: Nika Fagan on 11-30-2023 INR Coag (PPP) [Relative time] 1.0 {INR} [facility] Comment on above: INR Therapeutic Rang [...] #### [facility] [address] Leukocytes [#/volume] correc katia for nucleated erythrocytes in Blood by Automated counOrdered By: Nika Fagan on 11-30-2023 WBC corrected for nucl RBC Auto (Bld) [#/Vol] 6.1 10*3/uL 3.8-11.6 [facility] Leukocytes [#/volume] in Blo od by Automated countOrdered By: Niak Fagan on 11-30-2023 WBC (Bld) [#/Vol] 6.1 10*3/uL Normal 3.8-11.6 [facility] Comment on above: Performed By: #### C BC, BNP, PTT, DDIMER, HS TROP, PT, CMP #### [facility] [address] [place] [address] [place] Lymphocytes [#/volume] in Bl ood by Automated countOrdered By: Nika Fagan on 11-30-2023 Lymphocytes (Bld) [#/Vol] 1.2 10*3/uL Normal 1.00-4.8 [facility] Comment on above: Performed By: #### C BC, BNP, PTT, DDIMER, HS TROP, PT, CMP #### [facility] [address] [place] [address] [place] Lymphocytes/100 leukocytes i n Blood by Automated countOrdered By: Nika Fagan on 11-30-2023 Lymphocytes/100 WBC (Bld) 20.1 % Normal . [facility] Comment on above: Performed By: #### C BC, BNP, PTT, DDIMER, HS TROP, PT, CMP #### [facility] [address] [place] [address] MCH [Entitic mass] by Automa katia countOrdered By: Nika Fagan on 11-30-2023 MCH (RBC) [Entitic mass] 30.0 pg Normal 24.7-34.3 [facility] Comment on above: Performed By: #### C BC, BNP, PTT, DDIMER, HS TROP, PT, CMP #### [facility] [address] [place] [address] MCHC Auto (RBC) [Mass/Vol]Or dered By: Nika Fagan on 11-30-2023 MCHC (RBC) [Mass/Vol] 33.0 g/dL 32.0-35.0 [facility] MCV [Entitic volume] by Auto mated countOrdered By: Nika Fagan on 11-30-2023 MCV (RBC) [Entitic vol] 90.9 fL Normal 80-100 [facility] Comment on above: Performed By: #### C BC, BNP, PTT, DDIMER, HS TROP, PT, CMP #### [facility] [address] [place] [address] Monocyte distribution width [Entitic volume] in Blood by AutomatedOrdered By: Nika Fagan on 11-30-2023 Monocyte distribution width Auto (Bld) [Entitic vol] 16.37 % 0.00-20.00 [facility] Neutrophils [#/volume] in Bl ood by Automated countOrdered By: Nika Fagan on 11-30-2023 Neutrophils (Bld) [#/Vol] 4.1 10*3/uL Normal 1.8-7.7 [facility] Comment on above: Performed By: #### C BC, BNP, PTT, DDIMER, HS TROP, PT, CMP #### [facility] [address] [place] [address] No Panel InformationOrdered By: Nika Fagan on 11-30-2023 Estimated GFR (CKD-EPI) > 60.0 mL/Min [facility] Creatinine Clearance (Chem 43.90 [facility] Nucleated erythrocytes [Pres ence] in Blood by Automated countOrdered By: Nika Fagan on 11-30-2023 Nucleated RBC Auto Ql (Bld) 0.1 /100{WBC} 0-0.5 [facility] Partial Thromboplastin Timeo n 11-30-2023 aPTT Coag (Bld) [Time] 29.1 s Normal 25.1-36.5 [facility] Comment on above: Result Comment: A he matocrit value greater than 55% may lead to inaccurate results in coagulation testing. Patients having hematocrit values >55% require a special collection tube for coagulation studies. Please contact the laboratory at [phone] for redraw instructions. Performed By: #### C BC, BNP, PTT, DDIMER, HS TROP, PT, CMP #### [facility] [address] [place] [address] [place] Platelet mean volume [Entiti c volume] in Blood by Automated countOrdered By: Nika Fagan on 11-30-2023 Platelet mean volume (Bld) [Entitic vol] 9.3 fL Normal 6.3-10.7 [facility] Comment on above: Performed By: #### C BC, BNP, PTT, DDIMER, HS TROP, PT, CMP #### [facility] [address] [place] [address] [place] Platelets [#/volume] in Bloo d by Automated countOrdered By: Nkia Fagan on 11-30-2023 Platelets (Bld) [#/Vol] 195 10*3/uL Normal 150-450 [facility] Comment on above: Performed By: #### C BC, BNP, PTT, DDIMER, HS TROP, PT, CMP #### [facility] [address] [place] [address] [place] Potassium [Moles/volume] in Serum or PlasmaOrdered By: Nika Fagan on 11-30-2023 Potassium [Moles/Vol] 4.1 mmol/L Normal 3.5-5.1 [facility] Comment on above: Performed By: #### C BC, BNP, PTT, DDIMER, HS TROP, PT, CMP #### [address] Protein [Mass/volume] in Ser um or PlasmaOrdered By: Nika Fagan on 11-30-2023 Protein [Mass/Vol] 6.9 g/dL 6.4-8.9 [facility] Comment on above: Performed By: #### C BC, BNP, PTT, DDIMER, HS TROP, PT, CMP #### [address] Prothrombin time (PT)Ordered By: Nika Fagan on 11-30-2023 PT Coag (PPP) [Time] 11.6 s 9.0-12.9 [facility] Comment on above: A hematocrit value g reater than 55% may lead to inaccurate results in coagulation testing. Patients having hematocrit values >55% require a special collection tube for coagulation studies. Please contact the laboratory at [phone] for redraw instructions. Result Comment: A he matocrit value greater than 55% may lead to inaccurate results in coagulation testing. Patients having hematocrit values >55% require a special collection tube for coagulation studies. Please contact the laboratory at [phone] for redraw instructions. Performed By: #### C BC, BNP, PTT, DDIMER, HS TROP, PT, CMP #### [address] Serum globulin measurement b y calculation (mass/volume)Ordered By: Nika Fagan on 11-30-2023 Globulin (S) [Mass/Vol] 2.8 g/dL [facility] Comment on above: Performed By: #### C BC, BNP, PTT, DDIMER, HS TROP, PT, CMP #### [address] Serum or plasma albumin/glob ulin mass ratioOrdered By: Nika Fagan on 11-30-2023 Albumin/Globulin [Mass ratio] 1.5 {ratio} [facility] Comment on above: Performed By: #### C BC, BNP, PTT, DDIMER, HS TROP, PT, CMP #### [address] Serum or plasma anion gap de terminationOrdered By: Nika Fagan on 11-30-2023 Anion gap [Moles/Vol] 14.1 mmol/L Normal 6.0-15.0 [facility] Comment on above: Performed By: #### C BC, BNP, PTT, DDIMER, HS TROP, PT, CMP #### [facility] [address] [place] [address] [place] Sodium [Moles/volume] in Ser um or PlasmaOrdered By: Nika Rylan on 11-30-2023 Sodium [Moles/Vol] 141 mmol/L Normal 136-145 [facility] Comment on above: Performed By: #### C BC, BNP, PTT, DDIMER, HS TROP, PT, CMP #### [place] [address] [place] Troponin I High Sensitivityo n 11-30-2023 Troponin I High Sensitivity 15.3 pg/mL High 0.0-15.0 [facility] Comment on above: Result Comment: PERF ORMED BY: [place] [address] PATHOLOGIST RESTORATIVE [employer] EMBALMER JUDY RASMUSSEN M.D. Performed By: #### H S TROP ####[address] Troponin I High Sensitivity 8.5 pg/mL Normal 0.0-15.0 [facility] Comment on above: Result Comment: PERF ORMED BY: [place] [address] PATHOLOGIST [employer]ORATIVE [employer] EMBAL[employer] JUDY RASMUSSEN M.D. Performed By: #### H S TROP ####[address] Troponin I High Sensitivity 6.9 pg/mL Normal 0.0-15.0 [facility] Comment on above: Result Comment: PERF ORMED BY: [place] [address] PATHOLOGIST RESTORATIVE [employer] EMBAL[employer] JUDY RASMUSSEN M.D. Performed By: #### C BC, BNP, PTT, DDIMER, HS TROP, PT, CMP #### [facility] [address] [place] [id number] [facility] Troponin I.cardiac [Mass/vol ume] in Serum or Plasma by Detection limit <= 0.01 ng/Ordered By: Nika Fagan on 11-30-2023 Troponin I.cardiac DL <= 0.01 ng/mL [Mass/Vol] 8.5 pg/mL 0.0-15.0 [facility] Urea nitrogen [Mass/volume] in Serum or PlasmaOrdered By: Nika Fagan on 11-30-2023 Urea nitrogen [Mass/Vol] 24 mg/dL Normal 7-25 [facility] Comment on above: Performed By: #### C BC, BNP, PTT, DDIMER, HS TROP, PT, CMP #### [facility] [address] [place], [place] [id number] [facility] XR chest 2V*on 11-30-2023 XR chest 2V* [facility] Main [place] [address] [place] [address] XRay Report Signed Patient: Nora Gibbs MR#: [id number] : 1940 Acct:[id number] Age/Sex: 83 / F ADM Date: 11/30/23 Loc: ER Room: Type: [facility] ER Attending Dr: Copies to: Nika [...] Mathew Morton M.D.11/30/2023 11:41 AM Dictation Location: [place] [address] Transcribed By: [facility] 11/30/23 1141 Dictated By: Mathew Morton II, MD 11/30/23 1139 Signed By: 11/30/23 1141 Normal [facility] Office Visiton 11-23-2023 Follow-up visit [id number] Clari Gibbs 1940 F Date Provider Department Center 11/23/2023 [facility] Family History Problem Relation Age of Onset No Known Problems Mother No Known Problems Father Family Status - Relation Status Age at Mother Father Level of Service:96971 [place] OFFICE/OUTPATIENT ESTABLISHED MOD MDM 30 MIN Normal [facility] Basophils Auto (Bld) [#/Vol] on 11-20-2023 Basophils (Bld) [#/Vol] 0.1 10 3/uL 0.0-0.1 [facility] Basophils/100 WBC Auto (Bld) on 11-20-2023 Basophils/100 WBC (Bld) 0.6 % 0.2-2.0 [facility] Eosinophils/100 WBC Auto (Bl d)on 11-20-2023 Eosinophils/100 WBC (Bld) 2.4 % 0.9-7.0 [facility] Erythrocyte distribution wid th Auto (RBC) [Ratio]on 11-20-2023 Erythrocyte distribution width (RBC) [Ratio] 13.2 % 11.0-15.0 [facility] Estimated glomerular filtrat ion rate (GFR) non- Americanon 11-20-2023 GFR/1.73 sq M.predicted among non-blacks MDRD (S/P/Bld) [Vol rate/Area] 46 mL/min/{1.73_m2} Low >=60 [facility] Hematocrit Auto (Bld) [Volum e fraction]on 11-20-2023 Hematocrit (Bld) [Volume fraction] 41.6 % 36.0-48.0 [facility] Hemoglobin [Mass/volume] in Bloodon 11-20-2023 Hemoglobin (Bld) [Mass/Vol] 13.2 g/dL 12.0-16.0 [facility] Laboratory - Chemistry and C hemistry - challengeon 11-20-2023 Calcium [Mass/Vol] 9.4 mg/dL 8.5-10.1 [facility] Chloride [Moles/Vol] 106 mmol/L 98-107 [facility] CO2 [Moles/Vol] 26.3 mmol/L 21.0-32.0 [facility] Creatinine [Mass/Vol] 1.12 mg/dL High 0.55-1.02 [facility] GFR/1.73 sq M.predicted MDRD (S/P/Bld) [Vol rate/Area] 56 mL/min/{1.73_m2} Low >=60 [facility] Glucose [Mass/Vol] 108 mg/dL High 74-106 [facility] Natriuretic peptide B (Bld) [Mass/Vol] 491.0 pg/mL <=1800.0 [facility] Potassium [Moles/Vol] 4.2 mmol/L 3.5-5.1 [facility] Sodium [Moles/Vol] 141 mmol/L 136-145 [facility] TSH Qn 0.205 m[IU]/L Low 0.358-3.74 0 [facility] Urea nitrogen [Mass/Vol] 20.0 mg/dL High 7.0-18.0 [facility] Urea nitrogen/Creatinine [Mass ratio] 17.9 mg/mg [facility] Laboratory - Hematology and Cell countson 11-20-2023 Immature granulocytes/100 WBC (Bld) 0.1 % 0.0-0.5 [facility] Leukocytes [#/volume] correc katia for nucleated erythrocytes in Blood by Automated counon 11-20-2023 WBC corrected for nucl RBC Auto (Bld) [#/Vol] 8.0 10 3/uL 4.0-11.0 [facility] Lymphocytes Auto (Bld) [#/Vo l]on 11-20-2023 Lymphocytes (Bld) [#/Vol] 1.8 10 3/uL 1.2-3.8 [facility] Lymphocytes/100 WBC Auto (Bl d)on 11-20-2023 Lymphocytes/100 WBC (Bld) 22.3 % 20.5-60.0 [facility] MCH Auto (RBC) [Entitic mass ]on 11-20-2023 MCH (RBC) [Entitic mass] 29.3 pg 26.7-34.0 [facility] MCHC Auto (RBC) [Mass/Vol]on 11-20-2023 MCHC (RBC) [Mass/Vol] 31.7 g/dL 29.9-35.2 [facility] MCV Auto (RBC) [Entitic vol] on 11-20-2023 MCV (RBC) [Entitic vol] 92.4 fL 81.0-99.0 [facility] Monocytes Auto (Bld) [#/Vol] on 11-20-2023 Monocytes (Bld) [#/Vol] 0.9 10 3/uL High 0.3-0.8 [facility] Monocytes/100 WBC Auto (Bld) on 11-20-2023 Monocytes/100 WBC (Bld) 11.2 % 1.7-12.0 [facility] Neutrophils Auto (Bld) [#/Vo l]on 11-20-2023 Neutrophils (Bld) [#/Vol] 5.1 10 3/uL 1.4-6.5 [facility] Neutrophils/100 WBC Auto (Bl d)on 11-20-2023 Neutrophils/100 WBC (Bld) 63.4 % 43.0-75.0 [facility] No Panel Informationon 11-19 Eosinophils # (Auto) 0.2 10 3/uL 0.0-0.7 [facility] Immature Granulocyte # (Auto) 0.01 10 3/uL 0.00-0.03 [facility] Platelet mean volume Auto (B ld) [Entitic vol]on 11-20-2023 Platelet mean volume (Bld) [Entitic vol] 11.3 fL 9.5-13.5 [facility] Platelets Auto (Bld) [#/Vol] on 11-20-2023 Platelets (Bld) [#/Vol] 255 10 3/uL 150-450 [facility] RBC Auto (Bld) [#/Vol]on RBC (Bld) [#/Vol] 4.50 10 6/uL 4.20-5.40 [facility] Serum or plasma anion gap de terminationon 11-20-2023 Anion gap [Moles/Vol] 12.9 mmol/L [facility] ANTIMICROBIAL SUSCEPT-ANAERO BEon 05-28-2023 FINAL REPORT SEE NOTE Normal [facility] Comment on above: Order Comment: Speci men Type: MICROBIAL ISOLATE Ordering Facility: [facility] Address: [address] [place] [phone] Result Comment: Prev otella bergensis Organism identified [...] method. RUSTY M Beta-Lactamase Neg Performed By: [facility] [address] [place] [address] Weight Guesser: Paulino العراقي MD, PhD CLIA Number: [id number] Performed By: #### S USANA #### [facility] CLIA [id number] [address] [place] [address] #### 93399-3 #### [facility] CLIA [id number] [address] [place] [address] OF [facility] Aerobic Cultureon 05-28-2023 Aerobic Culture Comment Tissue C S R breast Light Normal Skin Aries 2 Days Comment Tissue C S R breast ORGANISM: Prevotella bergensis (O:PREBER) Comments Sent to [facility] for Testing Quantity of Growth Light Growth Antimicrobial susceptibility testing could not be completed due to poor organism growth using the CLSI approved test method. Please see scanned report located in the Laboratory/Scanned Reports section of the EMR. Comment Tissue C S R breast Gram Stain Result No Bacteria Seen PERFORMED BY: [address] [place] [id number] PATHOLOGIST RESTORATIVE [employer] EMBALMER JUDY RASMUSSEN M.D. Normal [facility] Comment on above: Performed By: #### A ERC ####[facility] [address] Bacterial susceptibility weller el BETTYE (Isol)on 05-28-2023 BLACT Negative Normal [facility] Comment on above: Order Comment: Speci men Type: MICROBIAL ISOLATE Ordering Facility: [facility] Address: [address] [place] [address] Performed By: #### S USANA #### [facility] CLIA [id number] [address] [place] [address] #### 29657-2 #### [facility] CLIA [id number] [address] [place] [address] [place] Microorganism identified Cx Nom (Unsp spec) [id number] Abnormal [facility] Comment on above: Order Comment: Speci men Type: MICROBIAL ISOLATE Ordering Facility: [facility] Address: [address] [place] [address] Result Comment: Prev otella bergensis Susceptibility results have been completed by FRANK[facility]N. Performed By: #### S USANA #### [facility] CLIA [id number] [address] [place] [address] #### 57454-3 #### [facility] CLIA [id number] [address] [place] [address] [place] Basic Metabolic Panelon 05-11 Creatinine Clr Calc Pharmacy 44.56 Normal [facility] Comment on above: Result Comment: PERF ORMED BY: [address] [place] [address] PATHOLOGIST RESTORATIVE [employer] EMBALMER JUDY RASMUSSEN M.D. Performed By: #### B MP #### [facility] [address] GFR/1.73 sq M.predicted MDRD (S/P/Bld) [Vol rate/Area] mL/min/{1.73_m2} Normal [facility] Comment on above: Performed By: #### B MP #### [facility] [address] [place] [address] [place] Calcium [Mass/volume] in Ser um or PlasmaOrdered By: Shine Lea on 05-28-2023 Calcium [Mass/Vol] 9.3 mg/dL Normal 8.6-10.3 [facility] Comment on above: Performed By: #### B MP #### [facility] [address] [place] [address] [place] Carbon dioxide, total [Moles /volume] in Serum or PlasmaOrdered By: Shine Verduzcoain on 05-28-2023 CO2 [Moles/Vol] 22.9 mmol/L Normal 21.0-31.0 [facility] Comment on above: Performed By: #### B MP #### [place] [address] [place] Chloride [Moles/volume] in S tyron or PlasmaOrdered By: Shine Verduzcoain on 05-28-2023 Chloride [Moles/Vol] 109 mmol/L High 98-107 [facility] Comment on above: Performed By: #### B MP #### [facility] [address] [place] [address] [place] Creatinine [Mass/volume] in Serum or PlasmaOrdered By: Shine Lea on 05-28-2023 Creatinine [Mass/Vol] 0.89 mg/dL Normal 0.60-1.20 [facility] Comment on above: Performed By: #### B MP #### [place] [address] [place] Glucose [Mass/volume] in Ser um or PlasmaOrdered By: Shine Verduzcoain on 05-28-2023 Glucose [Mass/Vol] 113 mg/dL High 70-100 [facility] Comment on above: ADA recommended refe rence rangeRandom Glucose Reference Range is dependent on time and content of last meal. Glucose of more than 200 mg/dL in a nonstressed, ambulatory subject supports the diagnosis of Diabetes Mellitus. Result Comment: [place] om Glucose Reference Range is dependent on time and content of last meal. Glucose of more than 200 mg/dL in a nonstressed, ambulatory subject supports the diagnosis of Diabetes Mellitus. ADA recommended reference range Performed By: #### B #### [place] [id number] [facility] 05-28-2023 L ----- Specimen: [id number] Received: 05/28/23 Status: HAMZAH [place] Num: [id number] Spec Type: Surgical Subm Dr: Luis Angel Saucedo MD Tissues: A Debridement-Skin/Other Than Skin (POD RT BRST) Procedures: Jay CHAUDHRY/Savanna L3 Age/ Patient Sex Location Account Attending Physician Nora Gibbs 83/F [place] [id number] Luis Angel Saucedo MD SPEC NUM: [id number] RECD: 05/28/23 STATUS: HAMZAH DUNBAR NUM: [id number] NEDA: 05/28/[address]: Luis Angel Saucedo MD ENTERED: 05/28/23 [facility] DR: SPEC TYPE: Surgical DEPT: S ENTERED BY: [id number] RECV BY: [id number] ORDERED: ISIDORO Gross/Micro L3 ORDERED: ISIDORO, Gross/Micro L3 Pathological Diagnosis Skin and soft [...] The microscopic examination confirms the diagnosis. Specimen: [id number] Received: 05/28/23 Status: HAMZAH [place] Num: [id number] Spec Type: Surgical Subm Dr: Luis Angel Saucedo MD Tissues: A Debridement-Skin/Other Than Skin (POD RT BRST) Procedures: Jay CHAUDHRY/Micro L3 Patient: Nora Gibbs Marianne [id number] (Continued) Specimen: [id number] Received: 05/28/23 (Continued) Signed (signature on file) Zacarias Hunt MD 05/29/23 1548 Specimen: [id number] Received: 05/28/23 Status: HAMZAH Dunbar Num: [id number] Spec Type: Surgical Subm Dr: Luis Angel Saucedo MD Tissues: A Debridement-Skin/Other Than Skin (POD RT BRST) Procedures: Jay CHAUDHRY/Savanna L3 Patient: Nora Gibbs [id number] (Continued) Specimen: [id number] Received: 05/28/23 (Continued) CPT Codes 43099 Specimen: [id number] Received: 05/28/23 Status: HAMZAH Jenn Num: [id number] Spec Type: Surgical Subm Dr: Luis Angel Saucedo MD Tissues: A Debridement-Skin/Other Than Skin (POD RT BRST) Procedures: Jay CHAUDHRY/Savanna L3 Patient: Nora Gibbs [id number] (Continued) Signed (signature on file) Giovany-Rafa Hunt MD 05/29/23 1548 Normal [facility] Microorganism identified Cx Nom (Unsp spec)on 05-28-2023 CULTURE, ORGANISM ID ANAEROBE [id number] Abnormal [facility] Comment on above: Order Comment: Speci men Type: MICROBIAL ISOLATE Ordering Facility: [facility] Address: [address] [place] [phone] Result Comment: Prev otella bergensis Performed By: #### 1 1475-1 #### [facility] CLIA [id number] [address] [place] [id number] [place] No Panel InformationOrdered By: Shine Lea on 05-28-2023 Estimated GFR (CKD-EPI) > 60.0 mL/Min [facility] Creatinine Clearance (Chem 44.56 [facility] Potassium [Moles/volume] in Serum or PlasmaOrdered By: Shine Lea on 05-28-2023 Potassium [Moles/Vol] 4.1 mmol/L Normal 3.5-5.1 [facility] Comment on above: Performed By: #### B MP #### [facility] [address] [place] [address] Serum or plasma anion gap de terminationOrdered By: Shine Lea on 05-28-2023 Anion gap [Moles/Vol] 12.2 mmol/L Normal 6.0-15.0 [facility] Comment on above: Performed By: #### B MP #### [facility] [address] [place] [address] [place] Sodium [Moles/volume] in Ser um or PlasmaOrdered By: Shine Lea on 05-28-2023 Sodium [Moles/Vol] 140 mmol/L Normal 136-145 [facility] Comment on above: Performed By: #### B MP #### [facility] [address] [place] [address] Urea nitrogen [Mass/volume] in Serum or PlasmaOrdered By: Shine Lea on 05-28-2023 Urea nitrogen [Mass/Vol] 25 mg/dL Normal 7-25 [facility] Comment on above: Performed By: #### B MP #### [facility] [address] Automated basophil %Ordered By: Luis Angel Saucedo on 05-17-2023 Basophils/100 WBC (Bld) 0.7 % Normal . [facility] Comment on above: Performed By: #### C BC, BMP ####[facility] [address] Automated basophil countOrde red By: Luis Angel Saucedo on 05-17-2023 Basophils (Bld) [#/Vol] 0.1 10*3/uL Normal 0.0-0.2 [facility] Comment on above: Result Comment: PERF ORMED BY: [facility] 1111 [place] [address] PATHOLOGIST [employer]OR[employer] JUDY RASMUSSEN M.D. Performed By: #### C TRACY, BMP ####[address] Automated blood monocyte cou ntOrdered By: Luis Angel Saucedo on 05-17-2023 Monocytes (Bld) [#/Vol] 1.0 10*3/uL High 0.0-0.8 [facility] Comment on above: Performed By: #### C BC, BMP ####[address] Automated eosinophil %Ordere d By: Luis Angel Saucedo on 05-17-2023 Eosinophils/100 WBC (Bld) 1.6 % Normal . [facility] Comment on above: Performed By: #### C BC, BMP ####[address] Automated eosinophil countOr dered By: Luis Angel Saucedo on 05-17-2023 Eosinophils (Bld) [#/Vol] 0.2 10*3/uL Normal 0.0-0.45 [facility] Comment on above: Performed By: #### C BC, BMP ####[place] [id number] [facility] Automated monocyte %Ordered By: Luis Angel Saucedo on 05-17-2023 Monocytes/100 WBC (Bld) 10.3 % Normal . [facility] Comment on above: Performed By: #### C BC, BMP ####[place] [id number] [facility] Automated neutrophil %Ordere d By: Luis Angel Saucedo on 05-17-2023 Neutrophils/100 WBC (Bld) 72.8 % Normal . [facility] Comment on above: Performed By: #### C BC, BMP ####[place] [id number] [facility] Basic Metabolic Panelon 12-0 Anion gap [Moles/Vol] Not performed Normal 6.0-15.0 [facility] Comment on above: Performed By: #### C TRACY, BMP ####[place] [id number] [facility] GFR/1.73 sq M.predicted MDRD (S/P/Bld) [Vol rate/Area] 55.878 mL/min/{1.73_m2} Normal [facility] Comment on above: Performed By: #### C BC, BMP ####[place] [id number] [facility] Potassium Normal 3.5-5.1 [facility] Comment on above: Result Comment: Spec imen hemolyzed, callback initiated if needed Performed By: #### C BC, BMP ####[place] [id number] [facility] Calcium [Mass/volume] in Ser um or PlasmaOrdered By: Luis Angel Saucedo on 05-17-2023 Calcium [Mass/Vol] 9.8 mg/dL Normal 8.6-10.3 [facility] Comment on above: Result Comment: PERF ORMED BY: [facility] [address] [place] [id number] PATHOLOGIST [employer] JUDY RASMUSSEN M.D. Performed By: #### C BC, BMP ####[place] [id number] [facility] Carbon dioxide, total [Moles /volume] in Serum or PlasmaOrdered By: Luis Angel Saucedo on 05-17-2023 CO2 [Moles/Vol] 25.5 mmol/L Normal 21.0-31.0 [facility] Comment on above: Performed By: #### C BC, BMP ####[place] [id number] [facility] Chloride [Moles/volume] in S tyron or PlasmaOrdered By: Luis Angel Saucedo on 05-17-2023 Chloride [Moles/Vol] 108 mmol/L High 98-107 [facility] Comment on above: Performed By: #### C BC, BMP ####[place] [id number] [facility] Complete Blood Count Auto Di ffon 05-17-2023 Mean Corpuscular HGB Conc 33.3 g/dL Normal 32.0-35.0 [facility] Comment on above: Performed By: #### C BC, BMP ####[place] [id number] [facility] NRBC% 0.1 /100{WBC} Normal 0-0.5 [facility] Comment on above: Performed By: #### C BC, BMP ####[place] [id number] [facility] Creatinine [Mass/volume] in Serum or PlasmaOrdered By: Luis Angel Saucedo on 05-17-2023 Creatinine [Mass/Vol] 0.99 mg/dL Normal 0.60-1.20 [facility] Comment on above: Performed By: #### C BC, BMP ####[place] [id number] [facility] ECG 12 lead ECGon 05-17-2023 ECG 12 lead ECG [facility] Main [place] [address] [place] [address] Electrocardiograph Report Signed Patient: Nora Gibbs MR#: [id number] : 1940 Acct:[id number] Age/Sex: 83 / F ADM Date: 05/17/23 Loc: PS Room: Type: [facility] Attending Dr: Luis Angel Saucedo MD Ordering [...] significant change was found Confirmed by ARPAN ELSLWORTH FACC, STEFANIE ([id number]) on 05/17/2023 3:19:51 PM Referred By: DIANA Electronically Signed By:STEFANIE ANTONY MD FAC Transcribed By: ANI Signed By Stefanie Antony MD, FACC 05/17/23 1519 Normal [facility] Erythrocyte distribution wid th [Ratio] by Automated countOrdered By: Luis Angel Saucedo on 05-17-2023 Erythrocyte distribution width (RBC) [Ratio] 14.3 % Normal 11.9-15.3 [facility] Comment on above: Performed By: #### C TRACY, BMP ####[facility] [address] [place] [id number] [place] Erythrocytes [#/volume] in B lood by Automated countOrdered By: Luis Angel Saucedo on 05-17-2023 RBC (Bld) [#/Vol] 4.16 10*6/uL Normal 3.60-5.00 [facility] Comment on above: Performed By: #### C RTACY, BMP ####[facility] [id number] [place] [id number] [facility] Glucose [Mass/volume] in Ser um or PlasmaOrdered By: Luis Angel Saucedo on 05-17-2023 Glucose [Mass/Vol] 101 mg/dL High 70-100 [facility] Comment on above: ADA recommended refe rence rangeRandom Glucose Reference Range is dependent on time and content of last meal. Glucose of more than 200 mg/dL in a nonstressed, ambulatory subject supports the diagnosis of Diabetes Mellitus. Result Comment: [place] om Glucose Reference Range is dependent on time and content of last meal. Glucose of more than 200 mg/dL in a nonstressed, ambulatory subject supports the diagnosis of Diabetes Mellitus. ADA recommended reference range Performed By: #### C TRACY, BMP ####[place] [address] Hematocrit [Volume Fraction] of Blood by Automated countOrdered By: Luis Angel Saucedo on 05-17-2023 Hematocrit (Bld) [Volume fraction] 36.6 % Normal 34.0-46.4 [facility] Comment on above: Performed By: #### C TRACY, BMP ####[address] Hemoglobin [Mass/volume] in BloodOrdered By: Luis Angel Saucedo on 05-17-2023 Hemoglobin (Bld) [Mass/Vol] 12.2 g/dL Normal 11.8-15.4 [facility] Comment on above: Performed By: #### C TRACY, BMP ####[place] [id number] [facility] Leukocytes [#/volume] correc katia for nucleated erythrocytes in Blood by Automated counOrdered By: Luis Angel Saucedo on 05-17-2023 WBC corrected for nucl RBC Auto (Bld) [#/Vol] 10.1 10*3/uL 3.8-11.6 [facility] Leukocytes [#/volume] in Blo od by Automated countOrdered By: Luis Angel Saucedo on 05-17-2023 WBC (Bld) [#/Vol] 10.1 10*3/uL Normal 3.8-11.6 [facility] Comment on above: Performed By: #### C TRACY, BMP ####[place] [id number] [facility] Lymphocytes [#/volume] in Bl ood by Automated countOrdered By: Luis Angel Saucedo on 05-17-2023 Lymphocytes (Bld) [#/Vol] 1.5 10*3/uL Normal 1.00-4.8 [facility] Comment on above: Performed By: #### C TRACY, BMP ####[address] Lymphocytes/100 leukocytes i n Blood by Automated countOrdered By: Luis Angel Saucedo on 05-17-2023 Lymphocytes/100 WBC (Bld) 14.6 % Normal . [facility] Comment on above: Performed By: #### C TRACY, BMP ####[address] MCH [Entitic mass] by Automa katia countOrdered By: Luis Angel Saucedo on 05-17-2023 MCH (RBC) [Entitic mass] 29.4 pg Normal 24.7-34.3 [facility] Comment on above: Performed By: #### C TRACY, BMP ####[address] MCHC Auto (RBC) [Mass/Vol]Or dered By: Luis Angel Saucedo on 05-17-2023 MCHC (RBC) [Mass/Vol] 33.3 g/dL 32.0-35.0 [facility] MCV [Entitic volume] by Auto mated countOrdered By: Luis Angel Saucedo on 05-17-2023 MCV (RBC) [Entitic vol] 88.1 fL Normal 80-100 [facility] Comment on above: Performed By: #### C TRACY, BMP ####[address] Neutrophils [#/volume] in Bl ood by Automated countOrdered By: Luis Angel Saucedo on 05-17-2023 Neutrophils (Bld) [#/Vol] 7.3 10*3/uL Normal 1.8-7.7 [facility] Comment on above: Performed By: #### C TRACY, BMP ####[address] No Panel InformationOrdered By: Luis Angel Saucedo on 05-17-2023 Estimated GFR (CKD-EPI) 55.878 mL/Min [facility] Creatinine Clearance (Chem N/A [facility] Nucleated erythrocytes [Pres ence] in Blood by Automated countOrdered By: Luis Angel aSucedo on 05-17-2023 Nucleated RBC Auto Ql (Bld) 0.1 /100{WBC} 0-0.5 [facility] Platelet mean volume [Entiti c volume] in Blood by Automated countOrdered By: Luis Angel Saucedo on 05-17-2023 Platelet mean volume (Bld) [Entitic vol] 10.6 fL Normal 6.3-10.7 [facility] Comment on above: Performed By: #### C TRACY, BMP ####[facility] [id number] [place] [id number] [facility] Platelets [#/volume] in Bloo d by Automated countOrdered By: Luis Angel Saucedo on 05-17-2023 Platelets (Bld) [#/Vol] 228 10*3/uL Normal 150-450 [facility] Comment on above: Performed By: #### C TRACY, BMP ####[place] [address] [place] [id number] [facility] Potassium [Moles/volume] in Serum or PlasmaOrdered By: Luis Angel Saucedo on 05-17-2023 Potassium [Moles/Vol] See comment 3.5-5.1 [facility] Comment on above: Specimen hemolyzed, callback initiated if needed Serum or plasma anion gap de terminationOrdered By: Luis Angel Saucedo on 05-17-2023 Anion gap [Moles/Vol] TNP [facility] Comment on above: Test not performed Sodium [Moles/volume] in Ser um or PlasmaOrdered By: Luis Angel Saucedo on 05-17-2023 Sodium [Moles/Vol] 141 mmol/L Normal 136-145 [facility] Comment on above: Performed By: #### C TRACY, BMP ####[facility] [id number] [place] [address] [place] Urea nitrogen [Mass/volume] in Serum or PlasmaOrdered By: Luis Angel Saucedo on 05-17-2023 Urea nitrogen [Mass/Vol] 19 mg/dL Normal 7-25 [facility] Comment on above: Performed By: #### C BC, BMP ####[facility] [id number] [place] [address] [facility] Office Visiton 04-11-2023 Follow-up visit [id number] Clari Gibbs 1940 F Date Provider Department Center 04/11/2023 STEFANIE RUIZ CARD [facility] Family History Problem Relation Age of Onset No Known Problems Mother No Known Problems Father Family Status - Relation Status Age at Mother Father Level of Service:13438 [place] OFFICE/OUTPATIENT ESTABLISHED LOW MDM 20-29 MIN Reason for Visit and Comments: Coronary Artery Disease [187] Hypertension [032365] Normal [facility] Physician Referralon 023 Physician Referral [id number] Normal [facility] CULTURE WOUNDon 08-17-2022 CULTURE WOUND Culture Observations : LIGHT GROWTH OF NORMAL SKIN ARIES. Culture Observations: NO GROWTH OF ANAEROBES AT 72 HOURS. Normal [facility] Comment on above: Performed By: #### W OUNDCX #### [facility] [address] [place] [address] [address] Michael Hunt MG MAMM DIAGNOSTIC 3D GERARDO CA Don 08-17-2022 MG MAMM DIAGNOSTIC 3D GERARDO CAD Patient: NORA GIBBS. Exam Date: 08/17/2022 : 1940 Gender:F Ordering : DR NOBLE HAYES D.O. Admission #: [id number] Family : Order #: [id number] CLICK HERE TO VIEW EXAM RADIOLOGY REPORT [...] liver/uterine cancer at age 62. LOCATION: [facility] BREAST COMPOSITION: Scattered areas fibroglandular density. [...] MD on 08/17/2022 at 14:[address] [facility] US BREAST RIGHT LIMITEDon US BREAST RIGHT LIMITED Patient: NORA GIBBS Exam Date: 08/17/2022 : 1940 Gender:F Ordering : DR NOBLE HAYES D.O. Admission #: [id number] Family : Order #: [id number] CLICK HERE TO VIEW EXAM RADIOLOGY REPORT [...] liver/uterine cancer at age 62. LOCATION: [facility] BREAST COMPOSITION: Scattered areas fibroglandular density. [...] MD on 08/17/2022 at 14:32 Normal [facility] BREAST RIGHT LIMITED 2,10E+07 Other CBC AUTO DIFFon 01-26-2022 BASO # 0.1 103/ul Normal 0.0-0.[address] [facility] Comment on above: Performed By: #### C BC #### [facility] [address] [place] [address] Dr. Michael Hunt Basophils/100 WBC (Bld) 0.4 % Normal 0.2-2.[address] [facility] Comment on above: Performed By: #### C BC #### [facility] [address] [place] [address] Dr. Michael Hunt EO # 0.3 103/ul Normal 0.0-0.7 [facility] Comment on above: Performed By: #### C BC #### [facility] [address] [place] [address] Dr. Michael Hunt Eosinophils/100 WBC (Bld) 2.5 % Normal 0.9-7.0 [facility] Comment on above: Performed By: #### C BC #### [facility] [address] [place] [address] Dr. Michael Hunt Erythrocyte distribution width (RBC) [Ratio] 14.9 % Normal 11.0-15.0 [facility] Comment on above: Performed By: #### C BC #### [facility] [address] [place] [address] Dr. Michael Hunt Hematocrit (Bld) [Volume fraction] 37.0 % Normal 36.0-48.0 [facility] Comment on above: Performed By: #### C BC #### [facility] [address] [place] [address] Dr. Michael Hunt Hemoglobin (Bld) [Mass/Vol] 11.9 g/dL Critically low 12.0-16.0 [facility] Comment on above: Performed By: #### C BC #### [facility] [address] [place] [address] Dr. Michael Hunt IG # 0.06 10e3/ul Critically high 0.00-0.03 [facility] Comment on above: Performed By: #### C BC #### [facility] [address] [place] [address] Dr. Michael Hunt IG % 0.5 % Normal 0.0-0.5 [facility] Comment on above: Performed By: #### C BC #### [facility] [address] [place] [address] Dr. Michael Hunt LYMPH # 1.7 103/ul Normal 1.2-3.8 [facility] Comment on above: Performed By: #### C BC #### [facility] [address] [place] [address] Dr. Michael Hunt Lymphocytes/100 WBC (Bld) 15.5 % Critically low 20.5-60.0 [facility] Comment on above: Performed By: #### C BC #### [facility] [address] [place] [address] Dr. Michael Hunt MANUAL DIFF REQ NO Normal [facility] Comment on above: Performed By: #### C BC #### [facility] [address] [place] [address] [address] Michael Hunt MCH (RBC) [Entitic mass] 29.2 pg Normal 26.7-34.0 [facility] Comment on above: Performed By: #### C BC #### [facility] [address] [place] [address] Dr. Michael Hunt MCHC (RBC) [Mass/Vol] 32.2 g/dL Normal 29.9-35.2 [facility] Comment on above: Performed By: #### C BC #### [facility] [address] [place] [address] [address] Michael Hunt MCV (RBC) [Entitic vol] 90.9 fL Normal 81.0-99.0 [facility] Comment on above: Performed By: #### C BC #### [facility] [address] [place] [address] Dr. Michael Hunt MONO # 1.2 103/ul Critically high 0.3-0.8 [facility] Comment on above: Performed By: #### C BC #### [facility] [address] [place] [address] Dr. Michael Hunt Monocytes/100 WBC (Bld) 11.0 % Normal 1.7-12.[address] [facility] Comment on above: Performed By: #### C BC #### [facility] [address] [place] [address] Dr. Michael Hunt NEUT # 7.8 103/ul Critically high 1.4-6.5 [facility] Comment on above: Performed By: #### C BC #### [facility] [address] [place] [address] Dr. Michael Hunt Neutrophils/100 WBC (Bld) 70.1 % Normal 43.0-75.[address] [facility] Comment on above: Performed By: #### C BC #### [facility] [address] [place] [address] Dr. Michael Hunt Platelet mean volume (Bld) [Entitic vol] 10.2 fL Normal 9.5-13.5 [facility] Comment on above: Performed By: #### C BC #### [facility] [address] [place] [address] [address] Michael Hunt PLT 245 103/ul Normal 150-450 [facility] Comment on above: Performed By: #### C BC #### [facility] [address] [place] [address] [address] Michael Hunt RBC 4.07 106/ul Critically low 4.20-5.40 [facility] Comment on above: Performed By: #### C BC #### [facility] [address] [place] [address] [address] Michael Hunt WBC 11.1 103/ul Critically high 4.0-11.0 [facility] Comment on above: Performed By: #### C BC #### [facility] [address] [place] [address] Dr. Michael Hunt LIPID PROFILEon 01-26-2022 CHOL-HDL RATIO NORM SEE BELOW Normal [facility] Comment on above: Result Comment: 3.3 - 4.4 LOW RISK 4.4 - 7.1 AVERAGE RISK 7.1 - 11.0 MODERATE RISK >11.0 HIGH RISK Performed By: #### L IPID, ALT, TSH, BMP #### [facility] [address] [place] [address] Dr. Michael Hunt Cholesterol [Mass/Vol] 132 mg/dL Normal <=200 [facility] Comment on above: Performed By: #### L IPID, ALT, TSH, BMP #### [facility] [address] [place] [address] Dr. Michael Hunt Cholesterol in HDL [Mass/Vol] 53 mg/dL Normal 40-60 [facility] Comment on above: Performed By: #### L IPID, ALT, TSH, BMP #### [facility] [address] [place] [address] Dr. Michael Hunt Cholesterol in LDL [Mass/Vol] 43.0 mg/dL Normal [facility] Comment on above: Performed By: #### L IPID, ALT, TSH, BMP #### [facility] [address] [place] [address] [address] Michael Hunt Cholesterol.total/Chol esterol in HDL [Mass ratio] 2.5 {ratio} Normal [facility] Comment on above: Performed By: #### L IPID, ALT, TSH, BMP #### [facility] [address] [place] [address] [address] Michael Hunt HDL NORMAL > or = 60 mg/dl - LO W CARDIOVASCULAR RISK <40 mg/dl - HIGH CARDIOVASCULAR RISK Normal [facility] Comment on above: Performed By: #### L IPID, ALT, TSH, BMP #### [facility] [address] [place] [address] [address] Michael Hunt LDL CALC NORMAL SEE BELOW Normal [facility] Comment on above: Result Comment: <100 mg/dl OPTIMAL 100 - 129 mg/dl NEAR OR ABOVE OPTIMAL 130 - 159 mg/dl BORDERLINE HIGH 160 - 189 mg/dl HIGH >190 mg/dl VERY HIGH Performed By: #### L IPID, ALT, TSH, BMP #### [facility] [address] [place] [address] Dr. Michael Hunt Triglyceride [Mass/Vol] 180 mg/dL Critically high <=150 [facility] Comment on above: Performed By: #### L IPID, ALT, TSH, BMP #### [facility] [address] [place] [address] Dr. Michael Hunt VLDL CALC 36.0 mg/dL Normal [facility] Comment on above: Performed By: #### L IPID, ALT, TSH, BMP #### [facility] [address] [place] [address] [address] Michael Hunt PROF CHEM 8 (BAS METB)on Anion gap [Moles/Vol] 13.2 mmol/L Normal [facility] Comment on above: Performed By: #### L IPID, ALT, TSH, BMP #### [facility] [address] [place] [address] Dr. Michael Hunt Calcium [Mass/Vol] 9.3 mg/dL Normal 8.5-10.[address] [facility] Comment on above: Performed By: #### L IPID, ALT, TSH, BMP #### [facility] [address] [place] [address] [address] Michael Hunt Chloride [Moles/Vol] 104 mmol/L Normal 98-107 [facility] Comment on above: Performed By: #### L IPID, ALT, TSH, BMP #### [facility] [address] [place] [address] Dr. Michael Hunt CO2 [Moles/Vol] 24.7 mmol/L Normal 21.0-32.0 [facility] Comment on above: Performed By: #### L IPID, ALT, TSH, BMP #### [facility] [address] [place] [address] Dr. Michael Hunt Creatinine [Mass/Vol] 1.20 mg/dL Critically high 0.55-1.02 [facility] Comment on above: Performed By: #### L IPID, ALT, TSH, BMP #### [facility] [address] [place] [address] Dr. Michael Hunt EGFR-AF BHUTANESE 52 mL/min/1.73m2 Critically low >=60 [facility] Comment on above: Performed By: #### L IPID, ALT, TSH, BMP #### [facility] [address] [place] [address] Dr. Michael Hunt EGFR-NON AF BHUTANESE 43 mL/min/1.73m2 Critically low >=60 [facility] Comment on above: Performed By: #### L IPID, ALT, TSH, BMP #### [facility] [address] [place] [address] Dr. Michael Hunt Glucose [Mass/Vol] 99 mg/dL Normal 74-[address] [facility] Comment on above: Performed By: #### L IPID, ALT, TSH, BMP #### [facility] [address] [place] [address] Dr. Michael Hunt Potassium [Moles/Vol] 4.9 mmol/L Normal 3.5-5.1 [facility] Comment on above: Performed By: #### L IPID, ALT, TSH, BMP #### [facility] [address] [place] [address] [address] Michael Hunt Sodium [Moles/Vol] 137 mmol/L Normal 136-[address] [facility] Comment on above: Performed By: #### L IPID, ALT, TSH, BMP #### [facility] [address] [place] [address] Dr. Michael Hunt Urea nitrogen [Mass/Vol] 30.0 mg/dL Critically high 7.0-18.0 [facility] Comment on above: Performed By: #### L IPID, ALT, TSH, BMP #### [facility] [address] [place] [address] [address] Michael Hunt Urea nitrogen/Creatinine [Mass ratio] 25.0 mg/mg Normal [facility] Comment on above: Performed By: #### L IPID, ALT, TSH, BMP #### [facility] [address] [place] [address] Dr. Michael Hunt [facility] 01-26-2022 ALT [Catalytic activity/Vol] 54 U/L Normal 14-59 [facility] Comment on above: Performed By: #### L IPID, ALT, TSH, BMP #### [facility] [address] [place] [address] Dr. [facility] T[facility] 5.136 uIU/mL Critically high 0.358-3.74 0 [facility] Comment on above: Performed By: #### L IPID, ALT, TSH, BMP #### [facility] [address] [place] [address] Dr. Michael Hunt Cardiovascular Lab Reporton 09-03-2018 Cardiovascular Lab Report [facility] MR #: [id number] Department of Physician: Bala Zepeda M.D. Division of Service Date: 09/03/2018 Cardiology Birthdate: 1940 Adult Cardiovascular Room #: [place] [address] Cardiovascular Laboratory Report INDICATION: The patient is [...] informed consent. She was brought to the mini lab operator in a fasting state. The right groin area was prepped and draped in usual fashion. Using micropuncture technique, the right common femoral artery was accessed. The inner cannula was advanced and right femoral angiography was performed followed by upsizing to a 6-Samoan x 11 cm sheath. Access was also obtained using the same technique in the right common femoral vein and a 6-Samoan x 11 cm sheath was placed. A 6-Samoan Lee catheter was used for right heart catheterization with measurement of pressures and calculation of cardiac output using the estimated Patricia method. Lee catheter was removed. Bilateral selective coronary angiography was then performed using 6-Samoan JL4 and JR4 diagnostic catheters. Catheters were removed. Heparin was administered intravenously and therapeutic ACT confirmed during the rest of the procedure and additional heparin given as needed. A 6-Samoan JR4 guiding catheter was advanced and used [...] atmospheres and post dilated using [place] [employer] [place] 3.0 x 8 mm noncompliant balloon [...] Zepeda M.D. Date Trans: 09/03/2018 02:15 P/jaswinder [id number] [facility] Vital Signs Date Time Vital Sign Value Performing Clinician Facility 02-19-2024 10:27-0400 Body height 154.94 cm DO Nika Brown Work Phone: [facility] 02-19-2024 10:27-0400 Body mass index (BMI) [Ratio] 34.7 kg/m2 DO Nika Brown Work Phone: [facility] 02-19-2024 10:27-0400 Body weight 83.46 kg DO Nika Brown Work Phone: [facility] 02-19-2024 10:27-0400 Diastolic blood pressure 66 mm[Hg] DO Nika Brown Work Phone: [facility] 02-19-2024 10:27-0400 Heart rate 60 /min DO Nika Brown Work Phone: [facility] 02-19-2024 10:27-0400 Respiratory rate 20 /min DO Nika Brown Work Phone: [facility] 02-19-2024 10:27-0400 Systolic blood pressure 170 mm[Hg] DO Nika Brown Work Phone: [facility] 12-07-2023 11:49-0400 Body height 154.94 cm DO Nika Brown Work Phone: [facility] 12-07-2023 11:49-0400 Body mass index (BMI) [Ratio] 34.2 kg/m2 DO Nika Brown Work Phone: [facility] 12-07-2023 11:49-0400 Body weight 82.15 kg DO Nika Brown Work Phone: [facility] 12-07-2023 11:49-0400 Diastolic blood pressure 72 mm[Hg] DO Nika Brown Work Phone: [facility] 12-07-2023 11:49-0400 Heart rate 69 /min DO Nika Brown Work Phone: [facility] 12-07-2023 11:49-0400 Respiratory rate 20 /min DO Nika Brown Work Phone: [facility] 12-07-2023 11:49-0400 SaO2% (BldA) [Mass fraction] 98 % DO Nika Brown Work Phone: [facility] 12-07-2023 11:49-0400 Systolic blood pressure 150 mm[Hg] DO Nika Brown Work Phone: [facility] 12-01-2023 15:17-0400 Diastolic blood pressure 72 mm[Hg] DO Nika Brown Work Phone: [facility] 12-01-2023 15:17-0400 Heart rate 60 /min DO Nika Brown Work Phone: [facility] 12-01-2023 15:17-0400 Respiratory rate 20 /min DO Nika Brown Work Phone: [facility] 12-01-2023 15:17-0400 SaO2% (BldA) [Mass fraction] 96 % DO Nika Brown Work Phone: [facility] 12-01-2023 15:17-0400 Systolic blood pressure 137 mm[Hg] DO Nika Brown Work Phone: [facility] 12-01-2023 11:55-0400 Body temperature 97.4 [degF] DO Nika Brown Work Phone: [facility] 12-01-2023 06:08-0400 Body weight 80.5 kg DO Nika Brown Work Phone: [facility] 11-30-2023 15:41-0400 Body height 154.94 cm DO Nika Brown Work Phone: [facility] 11-30-2023 14:47-0400 Diastolic blood pressure 76 mm[Hg] DO Nika Brown Work Phone: [facility] 11-30-2023 14:47-0400 Heart rate 65 /min DO Nika Brown Work Phone: [facility] 11-30-2023 14:47-0400 Respiratory rate 16 /min DO Nika Brown Work Phone: [facility] 11-30-2023 14:47-0400 SaO2% (BldA) [Mass fraction] 97 % DO Nika Brown Work Phone: [facility] 11-30-2023 14:47-0400 Systolic blood pressure 191 mm[Hg] DO Nika Brown Work Phone: [facility] 11-30-2023 10:13-0400 Body height 154.94 cm DO Nika Brown Work Phone: [facility] 11-30-2023 10:13-0400 Body weight 82.1 kg DO Nika Brown Work Phone: [facility] 11-30-2023 10:12-0400 Body temperature 98.6 [degF] DO Nika Brown Work Phone: [facility] 11-19-2023 11:24-0400 Body height 152.4 cm DO Noble Ball Work Phone: [facility] 11-19-2023 11:24-0400 Body mass index (BMI) [Ratio] 35.9 kg/m2 DO Noble Ball Work Phone: [facility] 11-19-2023 11:24-0400 Body weight 83.51 kg DO Noble Ball Work Phone: [facility] 11-19-2023 11:24-0400 Diastolic blood pressure 76 mm[Hg] DO Noble Ball Work Phone: [facility] 11-19-2023 11:24-0400 Heart rate 67 /min DO Noble Ball Work Phone: [facility] 11-19-2023 11:24-0400 Respiratory rate 12 /min DO Noble Ball Work Phone: [facility] 11-19-2023 11:24-0400 SaO2% (BldA) [Mass fraction] 97 % DO Noble Ball Work Phone: [facility] 11-19-2023 11:24-0400 Systolic blood pressure 142 mm[Hg] DO Noble Ball Work Phone: [facility] 08-28-2023 09:48-0400 Body height 152.4 cm DO Noble Ball Work Phone: [facility] 08-28-2023 09:48-0400 Body mass index (BMI) [Ratio] 35.2 kg/m2 DO Noble Ball Work Phone: [facility] 08-28-2023 09:48-0400 Body weight 81.64 kg DO Noble Ball Work Phone: [facility] 08-28-2023 09:24-0400 Body temperature 96.6 [degF] DO Noble Ball Work Phone: [facility] 08-28-2023 09:24-0400 Diastolic blood pressure 57 mm[Hg] DO Noble Ball Work Phone: [facility] 08-28-2023 09:24-0400 Heart rate 65 /min DO Noble Ball Work Phone: [facility] 08-28-2023 09:24-0400 Respiratory rate 18 /min DO Noble Ball Work Phone: [facility] 08-28-2023 09:24-0400 Systolic blood pressure 161 mm[Hg] DO Noble Ball Work Phone: [facility] 08-10-2023 13:57-0500 Body height 152.4 cm DO Noble Ball Work Phone: [facility] 08-10-2023 13:57-0500 Body mass index (BMI) [Ratio] 35.4 kg/m2 DO Noble Ball Work Phone: [facility] 08-10-2023 13:57-0500 Body weight 82.27 kg DO Noble Ball Work Phone: [facility] 08-10-2023 13:57-0500 Diastolic blood pressure 70 mm[Hg] DO Noble Ball Work Phone: [facility] 08-10-2023 13:57-0500 Heart rate 73 /min DO Noble Ball Work Phone: [facility] 08-10-2023 13:57-0500 Respiratory rate 12 /min DO Noble Ball Work Phone: [facility] 08-10-2023 13:57-0500 Systolic blood pressure 150 mm[Hg] DO Noble Ball Work Phone: [facility] 08-07-2023 09:54-0500 Body height 152.4 cm DO Noble Ball Work Phone: [facility] 08-07-2023 09:54-0500 Body mass index (BMI) [Ratio] 35.2 kg/m2 DO Noble Ball Work Phone: [facility] 08-07-2023 09:54-0500 Body weight 81.64 kg DO Noble Ball Work Phone: [facility] 07-16-2023 11:30-0500 Body height 154.94 cm Noble Ball Other [facility] [employer] Other 07-16-2023 11:30-0500 Body mass index (BMI) [Ratio] 33.74 kg/m2 Noble Ball Other [facility] [employer] Other 07-16-2023 11:30-0500 Body weight 81.01 kg Noble Ball Other [facility] [employer] Other 07-16-2023 11:30-0500 Diastolic blood pressure 72 mm[Hg] Noble Ball Other [facility] [employer] Other 07-16-2023 11:30-0500 Respiratory rate 12 /min Noble Ball Other [facility] [employer] Other 07-16-2023 11:30-0500 Systolic blood pressure 133 mm[Hg] Noble Ball Other [facility] [employer] Other 05-28-2023 14:28-0500 Diastolic blood pressure 63 mm[Hg] DO Noble Ball Work Phone: [facility] 05-28-2023 14:28-0500 Heart rate 58 /min DO Noble Ball Work Phone: [facility] 05-28-2023 14:28-0500 Respiratory rate 16 /min DO Noble Ball Work Phone: [facility] 05-28-2023 14:28-0500 SaO2% (BldA) [Mass fraction] 94 % DO Noble Ball Work Phone: [facility] 05-28-2023 14:28-0500 Systolic blood pressure 116 mm[Hg] DO Noble Ball Work Phone: [facility] 05-28-2023 13:22-0500 Inhaled oxygen flow rate 6 L/min DO Noble Ball Work Phone: [facility] 05-28-2023 13:07-0500 Body temperature 97.4 [degF] DO Noble Ball Work Phone: [facility] 05-28-2023 12:32-0500 Body height 154.94 cm DO Noble Ball Work Phone: [facility] 05-28-2023 12:32-0500 Body mass index (BMI) [Ratio] 33.7 kg/m2 DO Noble Ball Work Phone: [facility] 05-28-2023 12:32-0500 Body weight 81 kg DO Noble Ball Work Phone: [facility] 05-15-2023 09:57-0500 Body height 152.4 cm DO Noble Ball Work Phone: [facility] 05-15-2023 09:57-0500 Body mass index (BMI) [Ratio] 35.2 kg/m2 DO Noble Ball Work Phone: [facility] 05-15-2023 09:57-0500 Body weight 81.64 kg DO Noble Ball Work Phone: [facility] 05-15-2023 09:12-0500 Body temperature 98.1 [degF] DO Noble Ball Work Phone: [facility] 05-15-2023 09:12-0500 Diastolic blood pressure 69 mm[Hg] DO Noble Ball Work Phone: [facility] 05-15-2023 09:12-0500 Heart rate 68 /min DO Noble Ball Work Phone: [facility] 05-15-2023 09:12-0500 Respiratory rate 18 /min DO Noble Ball Work Phone: [facility] 05-15-2023 09:12-0500 Systolic blood pressure 168 mm[Hg] DO Noble Ball Work Phone: [facility] 03-13-2023 14:30-0400 Body height 154.94 cm Noble Ball Other [facility] [employer] Other 03-13-2023 14:30-0400 Body mass index (BMI) [Ratio] 34.01 kg/m2 Noble Ball Other 2,10E+07 Other 03-13-2023 14:30-0400 Body weight 81.65 kg Noble Ball Other 2,10E+07 Other 03-13-2023 14:30-0400 Diastolic blood pressure 62 mm[Hg] Noble Ball Other 2,10E+07 Other 03-13-2023 14:30-0400 Systolic blood pressure 122 mm[Hg] Noble Ball Other 2,10E+07 Other 12-25-2022 15:45-0400 Body height 154.94 cm Noble Ball Other 2,10E+07 Other 12-25-2022 15:45-0400 Body mass index (BMI) [Ratio] 33.97 kg/m2 Noble Ball Other 2,10E+07 Other 12-25-2022 15:45-0400 Body weight 81.56 kg Noble Ball Other 2,10E+07 Other 12-25-2022 15:45-0400 Diastolic blood pressure 70 mm[Hg] Noble Ball Other 2,10E+07 Other 12-25-2022 15:45-0400 Respiratory rate 12 /min Noble Ball Other 2,10E+07 Other 12-25-2022 15:45-0400 Systolic blood pressure 147 mm[Hg] Noble Ball Other 2,10E+07 Other 09-27-2022 12:00-0400 Body height 154.94 cm Noble Ball Other 2,10E+07 Other 09-27-2022 12:00-0400 Body mass index (BMI) [Ratio] 34.5 kg/m2 Noble Ball Other 2,10E+07 Other 09-27-2022 12:00-0400 Body weight 82.83 kg Noble Ball Other 2,10E+07 Other 09-27-2022 12:00-0400 Diastolic blood pressure 86 mm[Hg] Noble Ball Other 2,10E+07 Other 09-27-2022 12:00-0400 Respiratory rate 12 /min Noble Ball Other 2,10E+07 Other 09-27-2022 12:00-0400 Systolic blood pressure 122 mm[Hg] Noble Ball Other 2,10E+07 Other 08-17-2022 10:15-0500 Body height 154.94 cm Noble Ball Other 2,10E+07 Other 08-17-2022 10:15-0500 Body mass index (BMI) [Ratio] 34.91 kg/m2 Noble Ball Other 2,10E+07 Other 08-17-2022 10:15-0500 Body weight 83.83 kg Noble Ball Other 2,10E+07 Other 08-17-2022 10:15-0500 Diastolic blood pressure 78 mm[Hg] Noble Ball Other 2,10E+07 Other 08-17-2022 10:15-0500 Respiratory rate 12 /min Noble Ball Other 2,10E+07 Other 08-17-2022 10:15-0500 Systolic blood pressure 116 mm[Hg] Noble Ball Other 2,10E+07 Other 08-10-2022 10:15-0500 Body height 154.94 cm Noble Ball Other 2,10E+07 Other 08-10-2022 10:15-0500 Body mass index (BMI) [Ratio] 34.91 kg/m2 Noble Ball Other 2,10E+07 Other 08-10-2022 10:15-0500 Body weight 83.83 kg Noble Ball Other 2,10E+07 Other 08-10-2022 10:15-0500 Diastolic blood pressure 76 mm[Hg] Noble Ball Other 2,10E+07 Other 08-10-2022 10:15-0500 Respiratory rate 12 /min Noble Ball Other 2,10E+07 Other 08-10-2022 10:15-0500 Systolic blood pressure 112 mm[Hg] Noble Ball Other 2,10E+07 Other 10-19-2021 12:57-0400 Body height 157.5 cm Genny Vianey PA-C Work Phone: [facility] 10-19-2021 12:57-0400 Body temperature 97.7 [degF] Genny Vianey PA-C Work Phone: [facility] 10-19-2021 12:57-0400 Body weight 83.28 kg Genny Vianey PA-C Work Phone: [facility] 10-19-2021 12:57-0400 Diastolic blood pressure 52 mm[Hg] Genny Vianey PA-C Work Phone: [facility] 10-19-2021 12:57-0400 Heart rate 69 /min Genny Vianey PA-C Work Phone: [facility] 10-19-2021 12:57-0400 Respiratory rate 18 /min Genny Vianey PA-C Work Phone: [facility] 10-19-2021 12:57-0400 SaO2% (BldA) [Mass fraction] 94 % Genny Vianey PA-C Work Phone: [facility] 05-11-2022 12:57-0400 Systolic blood pressure 164 mm[Hg] Genny Vianey METZ Work Phone: [facility] Encounters Encounter Date Encounter Type Care Provider Facility Start: 04-21-2024 End: 04-21-2024 ambulatory [facility] Work Phone: Start: 04-21-2024 End: 04-21-2024 Patient encounter procedure [facility], [facility] [facility] Work Phone: Start: 03-19-2024 End: 03-19-2024 ambulatory [facility] Work Phone: Start: 03-19-2024 End: 03-19-[address] [facility] Work Phone: Start: 03-19-2024 End: 03-19-2024 ambulatory [facility] Start: 02-26-2024 Non-patient / Non-visit [facility] Work Phone: Start: 02-25-2024 Non-patient / Non-visit [facility] Work Phone: Start: 02-19-2024 End: 02-19-2024 ambulatory DO Nika Fagan Work Phone: [facility] Work Phone: Start: 02-19-2024 End: 02-19-2024 Patient encounter procedure DO Nika Fagan Work Phone: [facility], [facility] [facility] Work Phone: Start: 02-15-2024 End: 02-15-2024 ambulatory DO Nika Fagan Work Phone: [facility] Work Phone: Start: 02-15-2024 End: 02-15-2024 Patient encounter procedure DO Nika Brown Work Phone: [facility], [facility] [facility] Work Phone: Start: 01-24-2024 Non-patient / Non-visit DO Paulina Fagan Work Phone: [facility] Work Phone: Start: 01-17-2024 Non-patient / Non-visit DO Paulina Fagan Work Phone: [facility] Work Phone: Start: 01-14-2024 End: 01-14-2024 ambulatory DO Nika Fagan Work Phone: [facility] Work Phone: Start: 01-14-2024 End: 01-14-2024 Patient encounter procedure DO Nika Fagan Work Phone: [facility] Work Phone: Start: 12-31-2023 End: 12-31-2023 ambulatory [facility] Start: 12-10-2023 End: 12-10-2023 ambulatory DO Nika Fagan Work Phone: [facility] Work Phone: Start: 12-10-2023 End: 12-10-2023 Patient encounter procedure DO Nika Fagan Work Phone: [facility] Work Phone: Start: 12-07-2023 End: 12-07-2023 ambulatory DO Nika Fagan Work Phone: [facility] Work Phone: Start: 12-07-2023 End: 12-07-2023 Patient encounter procedure DO Nika Fagan Work Phone: [facility] Work Phone: Start: 12-03-2023 Non-patient / Non-visit DO Paulina Fagan Work Phone: [facility] Work Phone: Start: 11-30-2023 End: 12-01-2023 Evaluation and management of inpatient DO Nika Fagan Work Phone: [facility] Work Phone: Start: 11-30-2023 End: 12-01-2023 observation encounter DO Nika Fagan Work Phone: [facility] Work Phone: Start: 11-30-2023 End: 12-01-2023 ambulatory Jim Clay Facility:[facility] Start: 11-23-2023 End: 11-23-2023 ambulatory [facility] Start: 11-20-2023 Non-patient / Non-visit DO Paulina janelle Fagan Work Phone: [facility] Work Phone: Start: 11-19-2023 End: 11-19-2023 ambulatory DO Noble Ball Work Phone: [facility] Work Phone: Start: 11-19-2023 End: 11-19-2023 Patient encounter procedure DO Noble Ball Work Phone: [facility] Physician Group-[facility] Work Phone: Start: 11-08-2023 End: 11-08-2023 ambulatory DO Noble Ball Work Phone: [facility] Work Phone: Start: 11-08-2023 End: 11-08-2023 Patient encounter procedure DO Noble Ball Work Phone: [facility] Physician Group-[facility] Work Phone: Start: 10-08-2023 End: 10-08-2023 ambulatory DO Noble Ball Work Phone: [facility] Work Phone: Start: 10-08-2023 End: 10-08-2023 Patient encounter procedure DO Noble Ball Work Phone: [facility] Physician Group-[facility] Work Phone: Start: 09-06-2023 End: 09-06-2023 ambulatory DO Noble Ball Work Phone: [facility] Work Phone: Start: 09-06-2023 End: 09-06-2023 Patient encounter procedure DO Noble Ball Work Phone: [facility] Physician Group-[facility] Work Phone: Start: 08-28-2023 End: 08-28-2023 ambulatory DO Noble Ball Work Phone: [facility] Work Phone: Start: 08-28-2023 End: 08-28-2023 Discharged Recurring DO Noble Ball Work Phone: [facility] Work Phone: Start: 08-10-2023 End: 08-10-2023 Patient encounter procedure DO Noble Ball Work Phone: [facility] Physician Group-[facility] Work Phone: Start: 08-06-2023 End: 08-06-2023 Patient encounter procedure DO Noble Ball Work Phone: [facility] Physician Group-[facility] Work Phone: Start: 08-06-2023 Non-patient / Non-visit DO Prasanna parra [facility] Work Phone: [facility] Physician Group-[facility] Work Phone: Start: 07-16-2023 End: 07-16-2023 ambulatory Noble Ball Other [facility] [employer] Other Start: 07-16-2023 Office outpatient vi sit 25 minutes Noble Marty [facility] Start: 07-13-2023 End: 07-13-2023 ambulatory Noble Ball Other 2,10E+07 Other Start: 07-13-2023 Telephone encounter Noble TALAVERA [facility] Start: 07-04-2023 End: 07-04-2023 ambulatory Noble Hayes Other 2,10E+07 Other Start: 07-04-2023 Nursing evaluation o f patient and report Noble Hayes [facility] Start: 05-30-2023 End: 05-30-2023 ambulatory Noble Hayes Other 2,10E+07 Other Start: 05-30-2023 Nursing evaluation o f patient and report Noble Hayes [facility] Start: 05-28-2023 Telephone encounter Noble TALAVERA [facility] Start: 05-28-2023 End: 05-28-2023 Admission to same day surgery center DO Noble Hayes Work Phone: [facility] [place] Start: 05-28-2023 End: 05-28-2023 ambulatory DO Noble Hayes Work Phone: [facility] Work Phone: Start: 05-17-2023 End: 05-17-2023 Patient encounter procedure DO Noble Hayes Work Phone: [facility] [employer] [facility] Work Phone: Start: 05-17-2023 End: 05-17-2023 ambulatory DO Noble Hayes Work Phone: [facility] Work Phone: Start: 05-15-2023 Registered Recurring DO Rajni in [facility] Work Phone: [facility] Work Phone: Start: 04-26-2023 End: 04-26-2023 ambulatory Gayle Wade Other 2,10E+07 Other Start: 04-26-2023 Nursing evaluation o f patient and report Gayle Wade [facility] Start: 04-11-2023 End: 04-11-2023 ambulatory STEFANIE [facility] Start: 04-10-2023 End: 04-10-2023 ambulatory Noble Hayes Other 2,10E+07 Other Start: 04-10-2023 Telephone encounter Noble Hayes [facility] Start: 03-13-2023 End: 03-13-2023 ambulatory Noble Hayes Other 2,10E+07 Other Start: 03-13-2023 Patient encounter procedure Noble Hayes [facility] Start: 02-15-2023 End: 02-15-2023 ambulatory Noble Hayes Other 2,10E+07 Other Start: 02-15-2023 Nursing evaluation o f patient and report Noble Hayes [facility] Start: 01-26-2023 End: 01-26-2023 ambulatory Noble Hayes Other 2,10E+07 Other Start: 01-26-2023 Telephone encounter Noble Ball [facility] Start: 01-21-2023 End: 01-21-2023 ambulatory Noble Hayes Other 2,10E+07 Other Start: 01-21-2023 Telephone encounter Noble Hayes [facility] Start: 01-17-2023 End: 01-17-2023 ambulatory Noble Hayes Other 2,10E+07 Other Start: 01-17-2023 Telephone encounter Noble Ball [facility] Start: 01-15-2023 End: 01-15-2023 ambulatory Noble Ball Other 2,10E+07 Other Start: 01-15-2023 Nursing evaluation o f patient and report Noble Hayes [facility] Start: 01-02-2023 End: 01-02-2023 ambulatory Noble Ball Other 2,10E+07 Other Start: 01-02-2023 Telephone encounter Noble Ball [facility] Start: 12-27-2022 End: 12-27-2022 ambulatory Noble Hayes Other 2,10E+07 Other Start: 12-27-2022 Telephone encounter Noble TALAVERA [facility] Start: 12-26-2022 End: 12-26-2022 ambulatory Noble Hayes Other 2,10E+07 Other Start: 12-26-2022 Telephone encounter Noble TALAVERA [facility] Start: 12-25-2022 End: 12-25-2022 ambulatory Noble Hayes Other 2,10E+07 Other Start: 12-25-2022 Office outpatient vi sit 25 minutes Noble Hayes [facility] Start: 12-14-2022 End: 12-14-2022 ambulatory Noble Hayes Other 2,10E+07 Other Start: 12-14-2022 Nursing evaluation o f patient and report Noble Hayes [facility] Start: 11-13-2022 End: 11-13-2022 ambulatory Noble Hayes Other 2,10E+07 Other Start: 11-13-2022 Nursing evaluation o f patient and report Noble Hayes [facility] Start: 11-09-2022 ambulatory RITU DOS SANTOS . Facility: [facility] Start: 11-07-2022 ambulatory RITU DOS SANTOS . Facility: [facility] Start: 11-02-2022 End: 11-03-[address] NOBLE HAYES Facility:[facility] Start: 10-30-2022 End: 10-31-2022 ambulatory RITU DOS SANTOS . Facility:[facility] Start: 10-27-2022 End: 10-28-2022 ambulatory RITU DOS SANTOS . Facility:[facility] Start: 10-25-2022 End: 10-26-2022 ambulatory RITU MCKEONLYN . Facility:[facility] Start: 10-23-2022 End: 10-24-2022 ambulatory RITU DOS SANTOS . Facility:[facility] Start: 10-20-2022 End: 10-21-2022 ambulatory RITU TAMLYN . Facility:[facility] Start: 10-18-2022 End: 10-19-2022 ambulatory RITU DOS SANTOS . Facility: Start: 10-16-2022 End: 10-17-2022 ambulatory RITU DOS SANTOS . Facility: Start: 10-12-2022 Nursing evaluation o f patient and report Noble Marty [facility] Start: 10-12-2022 End: 10-13-2022 ambulatory RITU DOS SANTOS . 2,10E+07 Other Start: 09-27-2022 End: 09-27-2022 ambulatory Noble Marty Other 2,10E+07 Other Start: 09-27-2022 Office outpatient vi sit 25 minutes Noble Hayes [facility] Start: 09-12-2022 End: 09-12-2022 ambulatory Noble Hayes Other 2,10E+07 Other Start: 09-12-2022 Nursing evaluation o f patient and report Noble Hayes [facility] Start: 08-23-2022 End: 08-23-2022 ambulatory Noble Hayes Other 2,10E+07 Other Start: 08-23-2022 Telephone encounter Noble TALAVERA [facility] Start: 08-22-2022 ambulatory Checo RODRIGEZ Facility : [facility] Start: 08-17-2022 End: 08-18-[address] NOBLE HAYES 2,10E+07 Other Start: 08-17-2022 Office outpatient vi sit 15 minutes Noble Marty [facility] Start: 08-17-2022 Telephone encounter Noble TALAVERA [facility] Start: 08-10-2022 End: 08-10-2022 ambulatory Noble Hayes Other 2,10E+07 Other Start: 08-10-2022 Office outpatient vi sit 15 minutes Noble Marty [facility] Start: 07-11-2022 End: 07-11-2022 ambulatory Gayle Wade Other 2,10E+07 Other Start: 07-11-2022 Nursing evaluation o f patient and report [facility] Start: 01-26-2022 End: 01-27-[address] NOBLE HAYES Facility: Start: 01-24-2022 Adult health examination Solomon Hayes Other 2,10E+07 Other Start: 10-19-2021 End: 10-19-2021 ambulatory Genny CAMPOS-C Work Phone: Hematology/Oncology Comment on above: Encounter for screen ing mammogram for malignant neoplasm of breast (Primary Dx) Start: 10-19-2021 End: 10-19-2021 Patient encounter procedure Genny CAMPOS-C Work Phone: LILLY Start: 09-22-2021 Telephone encounter Stephen jimenes MD Work Phone: Hematology/Oncology Comment on above: Orders Start: 05-20-2019 Preoperative cardiovascular examination Noble Hayes Other 2,10E+07 Other Start: 09-03-2018 End: 09-04-2018 Patient encounter procedure PROVIDER UNKNOWN Facility:[facility] Start: 08-08-2018 End: 08-09-2018 Patient encounter procedure DEFAULT PHYSICIAN Facility:[facility] Procedures Date Procedure Procedure Detail Performing Clinician Start: 11-30-2023 Duplex scan of lower limb veins DO Nika Fagan Work Phone: Start: 11-30-2023 CT angiography of thorax DO Nika Fagan Work Phone: Start: 11-30-2023 Plain chest X-ray DO Al janna Fagan Work Phone: Start: 05-28-2023 Debridement DO Olivia Hayes Work Phone: Start: 10-05-2018 Screening mammography B geraldine Hayes Other Start: 01-05-2016 Pre-surgery evaluation Noble Hayes Other Start: 01-05-2016 Preoperative cardiov ascular examination Noble Hayes Other Depression screening Olivia Hayes Other Plan of Treatment Date Care Activity Detail Author Start: 12-01-2023 End: 12-01-2023 [facility] Start: 11-30-2023 Duplex scan of lower limb veins US venous duplex LE BI [facility] Start: 11-30-2023 US Lower extremity v ein - bilateral [facility] Start: 11-30-2023 End: 11-30-2023 [facility] Start: 11-30-2023 Hospital admission [facility] Start: 05-28-2023 Aerobic Culture Aerobic Culture [facility] Start: 05-28-2023 Anaerobic Culture Anaerobic Culture [facility] Start: 05-28-2023 Microscopic observat ion [Identifier] in Unspecified specimen by Gram stain [facility] Start: 05-28-2023 End: 05-28-2023 [facility] Start: 04-14-2022 DIABETES SCREEN DIABETES SCREEN [facility] Start: 02-09-2022 Influenza vaccination INFLUENZ A (Season Ended) [facility] Start: 07-07-2021 COVID-19 VACCINE (4 - Booster for Pfizer series) COVID-19 VACCINE (4 - Booster for Pfizer series) [facility] Start: 06-11-2021 ADVANCE DIRECTIVE DISCUSSION ADVANCE DIRECTIVE DISCUSSION [facility] Start: 2003 BONE DENSITY BONE DENSITY [facility] Start: 2003 PNEUMOVAX AGE 65 AND OVER WITH 5YR LOOKBACK (#1) PNEUMOVAX AGE 65 AND OVER WITH 5YR LOOKBACK (#1) [facility] Start: 1988 SHINGRIX VACCINE (1 of 2) SHINGRIX VACCINE (1 of 2) [facility] Start: 1957 SHINGRIX VACCINE (1 of 2) SHINGRIX VACCINE (1 of 2) [facility] Start: 1957 Urine microalbumin profile DTAP,TDAP,TD (1 - Tdap) [facility] Start: 1944 PNEUMOCOCCAL: 65+ (1 - PCV) PNEUMOCOCCAL: 65+ (1 - PCV) [facility] Bacteria identified in Unspecified specimen by Aerobe culture [facility] Bacteria identified in Unspecified specimen by Anaerobe culture [facility] Patient Education [facility] Work Phone: Patient referral [facility] Work Phone: End: 11-18-2022 Screening mammography bi 2-view breast inc cad KAREN SCREENING Radiology Routine Encounter for screening mammogram for malignant neoplasm of breast 1 Occurrences starting 10/19/2021 until 11/18/2022 [facility] Work Phone: Comment on above: 1 Occurrences starti ng 10/19/2021 until 11/18/2022 [facility] Immunizations Immunization Date Immunization Notes Care Provider Sukhwinder plata 02-19-2024 influenza, high dose seasonal, preservative-free DO Nika Fagan Work Phone: [facility] 03-26-2023 influenza virus vaccine, unspecified formulation DO Noble Marty Work Phone: [facility] 03-26-2023 influenza, high dose seasonal, preservative-free Noble Hayes Other [facility] [employer] Other 03-06-2022 influenza virus vaccine, split virus (incl. purified surface antigen) Noble Hayes Other 2,10E+07 Other 03-06-2022 influenza virus vaccine, unspecified formulation DO Noble Marty Work Phone: [facility] 03-07-2021 COVID-19 vaccine, ag e 12+ yr (ixigo-BIONTECH - PURPLE TOP) Genny Winters PA-C Work Phone: [facility] 03-01-2021 influenza virus vaccine, split virus (incl. purified surface antigen) Noble Hayes Other 2,10E+07 Other 03-01-2021 influenza virus vaccine, unspecified formulation DO Noble Hayes Work Phone: [facility] 09-07-2020 COVID-19 vaccine, ag e 12+ yr (ixigo-BIONTECH - PURPLE TOP) Genny Winters PA-C Work Phone: [facility] 08-16-2020 COVID-19 vaccine, ag e 12+ yr (PFIZER-[employer]ION[employer] - PURPLE TOP) Genny Winters PA-C Work Phone: [facility] 03-01-2020 influenza virus vaccine, split virus (incl. purified surface antigen) Noble Hayes Other [facility] [employer] Other 03-01-2020 influenza virus vaccine, unspecified formulation DO Noble Hayes Work Phone: [facility] 03-18-2019 influenza virus vaccine, split virus (incl. purified surface antigen) Noble Hayes Other [facility] [employer] Other 03-18-2019 influenza virus vaccine, unspecified formulation DO Noble Hayes Work Phone: [facility] 03-11-2018 influenza virus vaccine, split virus (incl. purified surface antigen) Noble Marty Other [facility] [employer] Other 03-11-2018 influenza virus vaccine, unspecified formulation DO Noble Hayes Work Phone: [facility] 03-11-2018 Seasonal trivalent influenza vaccine, adjuvanted, preservative free Genny Winters PA-C Work Phone: [facility] 03-27-2017 influenza virus vaccine, split virus (incl. purified surface antigen) Noble Marty Other [facility] [employer] Other 03-27-2017 influenza virus vaccine, unspecified formulation DO Noble Hayes Work Phone: [facility] 03-27-2017 influenza, high dose seasonal, preservative-free Genny CAMPOS-C Work Phone: [facility] 03-21-2016 influenza virus vaccine, split virus (incl. purified surface antigen) Noble Marty Other [facility] [employer] Other 03-21-2016 influenza virus vaccine, unspecified formulation DO Noble Hayes Work Phone: [facility] 03-21-2016 influenza, high dose seasonal, preservative-free Genny Winters PA-C Work Phone: [facility] 03-24-2015 influenza virus vaccine, split virus (incl. purified surface antigen) Noble Hayes Other 2,10E+07 Other 03-24-2015 influenza virus vaccine, unspecified formulation DO Noble Hayes Work Phone: [facility] 03-24-2015 pneumococcal conjuga te vaccine, 13 valent Noble Hayes Other [facility] 03-24-2015 pneumococcal Conjuga te, unspecified formulation; 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: [Need for prophylactic vaccination against Streptococcus pneumoniae (pneumococcus)] Noble Hayes Other 2,10E+07 Other 04-22-2013 tetanus and diphther ia toxoids, adsorbed, preservative free, for adult use (5 Lf of tetanus toxoid and 2 Lf of diphtheria toxoid) Noble Hayes Other [facility] 04-28-2009 pneumococcal polysaccharide vaccine, 23 valent Noble Hayes Other [facility] Payers Date Payer Category Payer Self-pay [id number] 2014 Private Health Insurance [facility] AARP SUPPLEMENT [id number] 2014-Present [phone] [address] [place] [address] Indemnity [id number] 1996 Medicare MEDICARE MEDICAR E A AND B [id number] 1996-Present [phone] [address] [address] [place] [address] Medicare [id number] 1959 Medicare [id number] 1959 Unknown [id number] 1938 Unknown [id number] [id number] .647 1938 Unknown [id number] 2.16.840.1.243473.3.579.2 .647 1938 Unknown [id number] 2.16.840.1.139436.3.579.2 .727 1938 Unknown [id number] 2.16.840.1.599317.3.579.2 .593 1938 Unknown [id number] 2.16.840.1.962149.3.579.2 .593 1938 Unknown [id number] 2.16.840.1.636484.3.579.2 .593 1938 Unknown [id number] 2.16.840.1.286325.3.579.2 .593 1938 Unknown [id number] 2.16.840.1.943337.3.579.2 .593 1938 Unknown [id number] 2.16.840.1.740988.3.579.2 .593 1938 Unknown [id number] 2.16.840.1.280756.3.579.2 .593 1938 Unknown [id number] 2.16.840.1.197189.3.579.2 .593 1938 Unknown [id number] 2.16.840.1.198688.3.579.2 .593 1938 Unknown [id number] 2.16.840.1.133301.3.579.2 .593 1938 Unknown [id number] 2.16.840.1.069394.3.579.2 .593 1938 Unknown [id number] 2.16.840.1.468519.3.579.2 .593 1938 Unknown [id number] 2.16840.1.531186.3.579.2 .593 Unknown Unknown [id number] 2.16840.1.012856.3.579.2 .531 Unknown [id number] 2.16840.1.114520.3.579.2 .531 Unknown [id number] 2.16840.1.082923.3.579.2 .531 Unknown [id number] 2.16840.1.005793.3.579.2 .531 Social History Date Type Detail Facility Start: 11-12-2014 End: 11-30-2023 Tobacco smoking status NHIS Ex-smoker [facility] History of tobacco use Cigarette Smoker C [facility] Start: 11-12-2014 Cigarettes smoked current (pack per day) - Reported 1 [facility] Start: 11-12-2014 Tobacco use and exposure Smokeless tobacco non-user [facility] Start: 10-19-2020 End: 10-19-2021 Alcohol intake Current non-drinker of alcohol (finding) [facility] Start: 1940 Sex Assigned At Not on file C [facility] Start: 10-09-2021 End: 10-19-2021 Exposure to SARS-CoV-2 (event) Not sure [facility] End: 11-10-2007 Sex Assigned At [facility] [employer] Other Start: 1940 Sex Assigned At Female F [facility] Start: 04-21-2024 Sex Female (finding) [facility] Goals Date Patient Goal Desired Activity /State Functional Status Date Assessment Result Facility 12-01-2023 Functional status Patient at Baseline [facility] Work Phone: 11-30-2023 Functional status Patient at Baseline [facility] Work Phone: Mental Status Date Assessment Result Facility 12-01-2023 Cognitive function Cognitive Sta tus Patient at Baseline [facility] Work Phone: 11-30-2023 Cognitive function Cognitive Sta tus Patient at Baseline [facility] Work Phone: Clinical Notes 09-22-2021 to 03-19-2024 Note Date & Type Note Facility 03-19-2024 Note Cardiovascular Medic [facility] SUBJECTIVE Chief Complaint Patient presents with Coronary Artery Disease Congestive Heart Failure Hypertension Nora Gibbs is a 84 y.o. female here for routine follow-up. HPI PMHx: CAD s/p PCI to RCA in 2019, HTN, HLD, COPD, HFpEF Patient here for 3 mo follow up CAD, chronic diastolic heart failure, and hypertension. Furosemide was added at last apt in December by Dr. Zepeda. Then spironolactone and furosemide were stopped after lab results on 01/13. After a few more BMP's, Dr. Zepeda advised patient to take furosemide on an as needed basis. She states she hasn't had to take it much, as she hasn't had much LE edema. Denies chest pain. HEIN remains stable and unchanged. Palpitations are once in awhile and are no more than usual for her. She states Dr. Hayes increased her lisinopril to 40mg since last visit. After she was last seen, we started her on lasix. Her creatinine elevated. Lasix and spironolactone was held. Lasix was ordered as needed. She hasn't taken any lasix since. She notes her breathing did not improve much with taking the lasix. Leg swelling hasn't been bad. BP is high in the AM before meds - 160s-180s/70s, BP after meds 120s/60s. BP will start to creep up in the evenings into the 140-150s/60s. Rarely feels a palpitation. 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, borderline, class III ([facility]) Lower extremity edema Past Medical History: Diagnosis Date Cancer ([facility]) COPD (chronic obstructive pulmonary disease) ([facility]) Coronary artery disease Hypertension Family History Problem Relation Name Age of Onset No Known Problems Mother No Known Problems Father Social History Tobacco Use Smoking status: Former Types: Cigarettes Quit date: 2007 Years since quittin.8 Smokeless tobacco: Never Substance Use Topics Alcohol use: Never Allergies Allergen Reactions Penicillins Anaphylaxis, Hives, Other and Unknown Sulfa (Sulfonamide Antibiotics) Hives, Other, Rash and Unknown ROS Cardiovascular: Positive for dyspnea on exertion, leg swelling (improving) and palpitations ( once in awhile ). Musculoskeletal: Positive for arthritis, back pain, joint pain and myalgias. All other systems reviewed and are negative. OBJECTIVE Visit Vitals BP 150/62 (BP Location: Left arm, Patient Position: Sitting) Pulse 56 Ht 1.549 m (5' 1 ) Wt 83.5 kg (184 lb) SpO2 96% BMI 34.77 kg/m??? Smoking Status Former BSA 1.9 m??? Medications: Current Outpatient Medications: aspirin 81 mg EC tablet, Take 1 tablet by mouth in the morning., Disp: , Rfl: atorvastatin (Lipitor) 40 mg tablet, Take 1 tablet (40 mg) by mouth in the morning., Disp: 90 tablet, Rfl: 3 cyanocobalamin (Vitamin B-12) 1,000 mcg/mL oral liquid, 1 (one) time., Disp: , Rfl: doxazosin (Cardura) 2 mg tablet, Take 1 tablet (2 mg) by mouth at bedtime., Disp: 90 tablet, Rfl: 3 zifjadhplht-pmxbsfvix-hkdzntyl 200-62.5-25 mcg blister with device, INHALE 1 PUFF ONCE DAILY, Disp: , Rfl: furosemide (Lasix) 20 mg tablet, Take 1 tablet (20 mg) by mouth in the morning and at bedtime. (Patient taking differently: Take 20 mg by mouth if needed.), Disp: 180 tablet, Rfl: 3 isosorbide mononitrate ER (Imdur) 60 mg 24 hr tablet, Take 1 tablet (60 mg) by mouth in the morning., Disp: 90 tablet, Rfl: 3 levothyroxine (Synthroid, Levoxyl) 88 mcg tablet, 1 (one) time each day at the same time., Disp: , Rfl: metoprolol succinate XL (Toprol-XL) 25 mg 24 hr tablet, Take 0.5 tablets (12.5 mg) by mouth once daily as directed., Disp: 45 tablet, Rfl: 3 temazepam (Restoril) 30 mg capsule, TAKE ONE CAPSULE BY MOUTH ONCE DAILY AT BEDTIME, Disp: , Rfl: isosorbide mononitrate ER (Imdur) 30 mg 24 hr tablet, Take 1 tablet (30 mg) by mouth in the morning. Take 60mg +30mg to equal 90mg. Do not crush or chew., Disp: 30 tablet, Rfl: 5 lisinopril 20 mg tablet, Take 1 tablet (20 mg) by mouth two times daily., Disp: 60 tablet, Rfl: 5 Physical Exam Vitals reviewed. Constitutional: Appearance: Normal appearance. She is obese. HENT: Head: Normocephalic and atraumatic. Right Ear: External ear normal. Left Ear: External ear normal. Eyes: Extraocular Movements: Extraocular movements intac (more content not included)... [facility] 03-19-2024 Note Patient here for 3 m o follow up CAD, chronic diastolic heart failure, and hypertension. Furosemide was added at last apt in December by Dr. Zepeda. Then spironolactone and furosemide were stopped after lab results on 01/13. After a few more BMP's, Dr. Zepeda advised patient to take furosemide on an as needed basis. She states she hasn't had to take it much, as she hasn't had much LE edema. Denies chest pain. HEIN remains stable and unchanged. Palpitations are once in awhile and are no more than usual for her. She states Dr. Hayes increased her lisinopril to 40mg since last visit. Review of Systems Cardiovascular: Positive for dyspnea on exertion, leg swelling (improving) and palpitations ( once in awhile ). Musculoskeletal: Positive for arthritis, back pain, joint pain and myalgias. All other systems reviewed and are negative. [facility] 02-19-2024 Evaluation note Diagnosis Onset Date Resolution (HFpEF) heart failure with preserved ejection fraction acute February 19, 2024 10:17am ASHD (arteriosclerotic heart disease) acute February 19, 2024 10:17am Chronic bronchitis acute 2023 10:17am Hypothyroidism acute February 19, 2024 10:17am Nicotine dependence, cigarettes, in remission acute Septemb er 2023 10:17am Obesity acute February 10:17am Stage 3a chronic kidney disease acute February 19, 2024 10:17am [facility] Work Phone: 1(331) 700-123209-10-2024 Evaluation note* Diagnosis Onset Date Resolution Status Chest pain resolved ASHD (arteriosclerotic heart disease) acute Stage 3a chronic kidney disease acute Chest pain resolved (HFpEF) heart failure with preserved ejection fraction acute ASHD (arteriosclerotic heart disease) acute Stage 3a chronic kidney disease acute [facility] Work Phone: 1(485) 130-892509-06-2024 Evaluation note* Diagnosis Onset Date Resolution Status ASHD (arteriosclerotic heart disease) acute Chronic bronchitis acute History of breast cancer acu te Hypothyroidism acute Pernicious anemia acute Stage 3a chronic kidney disease acute Chest pain resolved Acute on chronic heart failu re with preserved ejection fraction (HFpEF) acute ASHD (arteriosclerotic heart disease) acute Stage 3a chronic kidney disease acute Chest pain resolved [facility] Work Phone: 1(260) 866-834108-05-2024 Evaluation note* Diagnosis Onset Date Resolution Status ASHD (arteriosclerotic heart disease) acute Chronic bronchitis acute History of breast cancer acu te Hypothyroidism acute Pernicious anemia acute Stage 3a chronic kidney disease acute Chest pain resolved Acute on chronic heart failu re with preserved ejection fraction (HFpEF) acute ASHD (arteriosclerotic heart disease) acute Stage 3a chronic kidney disease acute Chest pain resolved [facility] Work Phone: 1(763) 112-815007-22-2024 [facility] Subjective Nora Gibbs is a 83 y.o. year old female patient being seen for 1 mo follow up echo, stress test, and med changes. Amlodipine was stopped last month, and doxazosin was added. She says LE edema has not improved since stopping amlodipine. Her echo was done while she was inpatient at [facility] for chest pain. While there, they added [...] was admitted to the emergency room at [facility] with chest pain, And shortness of [...] Allergies Allergen Reactions Peni (more content not included)...[facility]07-01-2024 Evaluation note* Diagnosis Onset Date Resolution Status ASHD (arteriosclerotic heart disease) acute Chronic bronchitis acute History of breast cancer acu te Hypothyroidism acute Pernicious anemia acute Stage 3a chronic kidney disease acute Chest pain resolved Acute on chronic heart failu re with preserved ejection fraction (HFpEF) acute ASHD (arteriosclerotic heart disease) acute Stage 3a chronic kidney disease acute Chest pain resolved [facility] Work Phone: 1(864) 937-237806-21-2024 History and physical note Author Jim Clay [facility] November 30, 2023 5:16pm Note Date/Time November 30, 2023 3:[address] [facility] [address] [place] [address] Hospitalist H&P Signed Patient: Nora Gibbs MR#: [id number] : 1940 Acct:[id number] Age/Sex: 83 / F Adm Date: 4 Loc: Room: [address] [place] [address] Type: ADM INOo Attending Dr: Jim Clay DO Copies to: DO Jim Jean-Baptiste DO~ HPI DATE OF EXAMINATION: 11/30/23 CHIEF [...] and started torsemide. She recently saw her trial attorney who recommended an echocardiogram and a stress [...] negative unless noted below or in HPI [facility] Medical History (Updated 11/30/23 @ 13:34 by [...] % (Auto) 20.1 % (.) 11/30/23 10:25 [place] % (Auto) 9.8 % (.) 11/30/23 10:25 Eos % (Auto) 2.8 % (.) 11/30/23 10:25 Baso % (Auto) 0.6 % (.) 11/30/23 10:25 Nucleat RBC Rel Count 0.1 /100 WBC (0-0.5) 11/30/23 10:25 Neut # (Auto) 4.1 x10E3/uL (1.8-7.7) 11/30/23 10:25 Lymph # (Auto) 1.2 x10E3/uL (1.00-4.8) 11/30/23 10:25 [place] # (Auto) 0.6 x10E3/uL (0.0-0.8) 11/30/23 10:25 [...] (7-25) 11/30/23 10:25 Creatinine 0.91 mg/dL (0.60-1.20) 06/21/24 10:25 Est GFR (CKD-EPI) > 60.0 mL/Min [...] <Electronically signed by Jim Clay DO> 11/30/23 0095 [facility] Work Phone: 1(135) 692-700206-14-2024 [facility] Subjective Nora Gibbs is a [...] the morning., Disp: 90 tablet, Rfl: 3 ikighqjozln-bilrrxyss-coyjpiwp 200-62.5-25 mcg blister with device, INHALE 1 [...] with results is: L (more content not included)...[facility]02-27-2024 Progress note Author Luis Angel Saucedo [facility] August 07, 2023 9:59am Note Date/Time August 07, 2023 9:54am [facility] [address] [place] [address] Wound Center Provider Note Signed Patient: Nora Gibbs MR#: [id number] : 1940 Acct:[id number] Age/Sex: 83 / F Copies to: MD [...] hematoma. She did see her surgeon in [place] who did her previous surgery. Patient had some punch biopsies performed to rule out cancer which apparently did not show any cancer. She did develop nonhealing wound at this site. She underwent a couple debridements and closures in [place] but each time, the wound did open up and start draining. The last debridement was last month. The surgeon who did her previous surgerieshas since left and the patient did see Dr. Kurzt last week. He did remove some remaining sutures and the patient was then referred here. Patient is currently having dressing changes performed at the [facility] infusion center. She has an open [...] did wound start?: 08/2022 Mode of Arrival/ Waste Salvager: Personal vehicle Lives with:: Alone Appetite Description: Within Normal Limits Who helps w/ dressing change?: Home Health and Wound Care Dept Why Do You Need Help?: Can't Reach Ulcer Smoking Status: Former smoker Constitutional Constitutional: Denies fever(s) Integumentary/Breasts Skin/Breast: Reports wounds [facility] Medical History (Updated 08/06/23 @ 13:22 by [...] 0.1 CM Sq: 0.010 Surrounding Tissue Appearance: [place] Surrounding Tissue Temp: Warm Drainage Amount: None [...] by MD Luis Angel Saucedo> 08/07/23 0959 [facility] Work Phone: 1(778) 868-940502-06-2024 Progress note Author Luis Angel Saucedo [facility] July 17, 2023 9:52am Note Date/Time July 17, 2023 9 :52am [facility] [address] [place] [address] Wound Center Provider Note Signed Patient: Nora Gibbs MR#: [id number] : 1940 Acct:[id number] Age/Sex: 83 / F Copies to: MD [...] hematoma. She did see her surgeon in [place] who did her previous surgery. Patient had some punch biopsies performed to rule out cancer which apparently did not show any cancer. She did develop nonhealing wound at this site. She underwent a couple debridements and closures in [place] but each time, the wound did open up and start draining. The last debridement was last month. The surgeon who did her previous surgerieshas since left and the patient did see Dr. Kurtz last week. He did remove some remaining sutures and the patient was then referred here. Patient is currently having dressing changes performed at the [facility] infusion center. She has an open [...] did wound start?: 08/2022 Mode of Arrival/ Waste Salvager: Personal vehicle Lives with:: Alone Appetite Description: Within Normal Limits Who helps w/ dressing change?: Infusion Center and Wound Care Dept Why Do You Need Help?: Can't Reach Ulcer Smoking Status: Former smoker Constitutional Constitutional: Denies fever(s) Gastrointestinal Gastrointestinal: Denies abdominal pain Integumentary/Breasts Skin/Breast: Reports wounds Neurologic Neurologic: Denies syncope [facility] Medical History CAD (coronary artery disease) Osteoporosis [...] Right Breast: Bed Appearance: Beefy Red, Devitalized, Lockett and Yellow Percent of Wound Bed Granulated/Red: 60 Percent of Devitalized: 40 Length (cm): 1.0 Width (cm): 2 Depth (cm): 0.9 CM Sq: 2.000 Surrounding Tissue Appearance: Lockett Surrounding Tissue Temp: Warm Drainage Amount: Small [...] [facility] Work Phone: 1(665) 668-534802-05-2024 Evaluation note* Encounter Date Diagnosis Assessment Notes [...] abstinence. Not a candidate for yearly LDCT 2,10E+07 Other 01-24-2024 Evaluation note* Encounter Date Diagnosis Assessment Notes Treatment Notes Treatment Clinical Notes Jun, Pernicious anemia (ICD-10 - D51.0) 2,10E+07 Other 01-23-2024 Progress note Author Luis Angel Saucedo [facility] July 03, 2023 12:04pm Note Date/Time July 03, 2023 1 2:04pm [facility] [address] [place] [address] Wound Center Provider Note Signed Patient: Nora Gibbs MR#: [id number] : 1940 Acct:[id number] Age/Sex: 83 / F Copies to: MD [...] hematoma. She did see her surgeon in [place] who did her previous surgery. Patient had some punch biopsies performed to rule out cancer which apparently did not show any cancer. She did develop nonhealing wound at this site. She underwent a couple debridements and closures in [place] but each time, the wound did open up and start draining. The last debridement was last month. The surgeon who did her previous surgerieshas since left and the patient did see Dr. Kurtz last week. He did remove some remaining sutures and the patient was then referred here. Patient is currently having dressing changes performed at the [facility] center. She has an open right [...] did wound start?: 08/2022 Mode of Arrival/ Waste Salvager: Personal vehicle Lives with:: Alone Appetite Description: Within Normal Limits Who helps w/ dressing change?: [facility] Dept Why Do You Need Help?: Can't Reach Ulcer Smoking Status: Former smoker Constitutional Constitutional: Denies fever(s) Integumentary/Breasts Skin/Breast: Reports wounds [facility] Medical History CAD (coronary artery disease) Osteoporosis [...] Right Breast: Bed Appearance: Beefy Red, Devitalized, Lockett and Yellow Percent of Wound Bed Granulated/Red: 10 Percent of Devitalized: 90 Length (cm): 0.8 Width (cm): 2 Depth (cm): 1 CM Sq: 1.600 Surrounding Tissue Appearance: Lockett Surrounding Tissue Temp: Warm Drainage Amount: Small [...] by MD Luis Angel Saucedo> 07/03/23 1204 [facility] Work Phone: 1(847) 440-437801-02-2024 Progress note Author Luis Angel Saucedo [facility] June 12, 2023 9:26am Note Date/Time June 12, 2023 9: 26am [facility] [address] [place] [address] Wound Center Provider Note Signed Patient: Nora Gibbs MR#: [id number] : 1940 Acct:[id number] Age/Sex: 83 / F Copies to: MD Noble WestDO~ HPI Date of Visit Date of Visit: Date of Service: 06/12/2023 Time of Service: 09:23 Narrative HPI: Patient is status post debridement of her right breast wound. Pathology showed chronic wound changes. No mention of malignancy. Cultures grew normal skin aries. There was [place]. [place] was started on negative pressure [...] hematoma. She did see her surgeon in [place] who did her previous surgery. Patient had some punch biopsies performed to rule out cancer which apparently did not show any cancer. She did develop nonhealing wound at this site. She underwent a couple debridements and closures in [place] but each time, the wound did open up and start draining. The last debridement was last month. The surgeon who did her previous surgerieshas since left and the patient did see Dr. Kurtz last week. He did remove some remaining sutures and the patient was then referred here. Patient is currently having dressing changes performed at the [facility] infusion center. She has an open [...] did wound start?: 08/2022 Mode of Arrival/ Waste Salvager: Personal vehicle Lives with:: Alone Appetite Description: Within Normal Limits Who helps w/ dressing change?: [facility]fusion [facility] Dept Why Do You Need Help?: Can't Reach Ulcer Smoking Status: Former smoker Constitutional Constitutional: Denies fever(s) Integumentary/Breasts Skin/Breast: Reports wounds [facility] Medical History Breast cancer right CAD (coronary [...] 10:29) Hives Wound/Ulcer Right Breast: Bed Appearance: Lockett and Yellow Percent of Wound Bed Granulated/Red: 10 Percent of Devitalized: 90 Length (cm): 1.2 Width (cm): 2.9 Depth (cm): 2.5 CM Sq: 3.480 Surrounding Tissue Appearance: Lockett Surrounding Tissue Temp: Warm Drainage Amount: Small [...] signed by MD Luis Angel Saucedo> 06/12/23 09 [facility] Work Phone: 1(935) 165-896812-20-2023 Evaluation note* Encounter Date Diagnosis Assessment Notes Treatment Notes Treatment Clinical Notes May, Pernicious anemia (ICD-10 - D51.0) 2,10E+07 Other 12-18-2023 Hospital Discharge instructions Additional Instructions Initiate negative pressure wound therapy using black foam at 125 mmHg continuous. Change 3 times a week. In the meantime, perform dressing changes daily. Remove packing, irrigate with saline/Vashe and repack with saline moistened 4 x 4 gauze and cover with dry dressing.[facility] Work Phone: 1(973) 674-399312-05-2023 Progress note Author Luis Angel Saucedo [facility] May 15, 2023 9:57am Note Date/Time May 15, 2023 9 :57am [facility] [address] [place] [address] Wound Center Provider Note Signed Patient: Nora Gibbs MR#: [id number] : 1940 Acct:[id number] Age/Sex: 83 / F Copies to: MD [...] hematoma. She did see her surgeon in [place] who did her previous surgery. Patient had some punch biopsies performed to rule out cancer which apparently did not show any cancer. She did develop nonhealing wound at this site. She underwent a couple debridements and closures in [place] but each time, the wound did open up and start draining. The last debridement was last month. The surgeon who did her previous surgerieshas since left and the patient did see Dr. Kurtz last week. He did remove some remaining sutures and the patient was then referred here. Patient is currently having dressing changes performed at the [facility] infusion center. She has an open [...] did wound start?: 08/2022 Mode of Arrival/ Waste Salvager: Personal vehicle Lives with:: Alone Appetite Description: Within Normal Limits Who helps w/ dressing change?: [facility] Dept Why Do You Need Help?: Can't Reach Ulcer Smoking Status: Former smoker Constitutional Constitutional: Denies fever(s) Cardiovascular Cardiovascular: Denies chest pain Respiratory Respiratory: Denies dyspnea Integumentary/Breasts Skin/Breast: Reports wounds [facility] Medical History (Updated 04/24/23 @ 11:09 by [...] by MD Luis Angel Saucedo> 05/15/23 0957 [facility] Work Phone: 1([phone]) 238-227011-16-2023 Evaluation note* Encounter Date Diagnosis Assessment Notes Treatment Notes Treatment Clinical Notes Apr, Pernicious anemia (ICD-10 - D51.0) 2,10E+07 Other 11-14-2023 Progress note Author Luis Angel Saucedo [facility] April 24, 2023 11:12am Note Date/Time April 24, 2023 10:46am [facility] [address] [place] [address] Wound Center Provider Note Signed Patient: Nora Gibbs MR#: [id number] : 1940 Acct:[id number] Age/Sex: 83 / F Copies to: MD [...] hematoma. She did see her surgeon in [place] who did her previous surgery. Patient had some punch biopsies performed to rule out cancer which apparently did not show any cancer. She did develop nonhealing wound at this site. She underwent a couple debridements and closures in [place] but each time, the wound did open up and start draining. The last debridement was last month. The surgeon who did her previous surgerieshas since left and the patient did see Dr. Kurtz last week. He did remove some remaining sutures and the patient was then referred here. Patient is currently having dressing changes performed at the [facility] center. She has an open right [...] did wound start?: 08/2022 Mode of Arrival/ Waste Salvager: Personal vehicle Lives with:: Alone Appetite Description: Within Normal Limits Who helps w/ dressing change?: [facility] Dept Why Do You Need Help?: Can't Reach Ulcer Smoking Status: Former smoker Constitutional Constitutional: Denies fever(s) Cardiovascular Cardiovascular: Denies chest pain Respiratory Respiratory: Denies dyspnea Gastrointestinal Gastrointestinal: Denies abdominal pain Integumentary/Breasts Skin/Breast: Reports wounds Neurologic Neurologic: Denies syncope [facility] Medical History (Updated 04/24/23 @ 11:09 by [...] (Updated 04/24/23 @ 09:31 by Fara Nice, ANDREE) Father Myocardial infarction Sister Cancer Social History [...] Breast: Bed Appearance: Epithelial Tissue or Bridge, Lockett and Yellow Percent of Wound Bed Granulated/Red: [...] be done daily. Patient goes to the [facility] center for this. Patient follow-up here in 3 [...] [facility] Work Phone: 1(701) 264-211911-01-2023 NotePatient here for follow up CAD and hypertension. Recently had another breast surgery to repair infection from biopsy. Still dealing with some drainage from that. She denies chest pain, SOB, palpitations, and lightheadedness. Review of Systems Skin: Positive for poor wound healing. Musculoskeletal: Positive for arthritis, back pain and joint pain. All other systems reviewed and are negative.[facility] 04-11-2023 NoteCardiovascular Medicine [facility] SUBJECTIVE Chief Complaint Patient presents with [...] the morning., Disp: 90 tablet, Rfl: 3 kcmtozpkfdy-estwndzgc-wxdmabpt 200-62.5-25 mcg blister with device, INHALE 1 [...] Final Atrial Rate 09/03/2018 70 BPM Final OH Interval 09/03/2018 172 ms Final QRS DURATION 09/03/2018 84 ms Final QT Interval 09/03/2018 398 ms Final QTC CALCULATION(BEZET) 09/03/2018 429 ms Final P Crosby 09/03/2018 70 degrees Final R-Crosby 09/03/2018 65 degrees Final T Wave Crosby 09/03/2018 83 degrees Final Diagnosis 09/03/2018 Final [...] 102, LDL 5 (more content not included)... [facility]10-03-2023 Evaluation note* Encounter Date Diagnosis Assessment [...] patient on monthly SBE and yearly mammograms. 2,10E+07 Other 09-07-2023 Evaluation note* Encounter Date Diagnosis Assessment Notes Treatment Notes Treatment Clinical Notes Feb, Pernicious anemia (ICD-10 - D51.0) 2,10E+07 Other 08-09-2023 Evaluation note* Encounter Date Diagnosis Assessment Notes Treatment Notes Treatment Clinical Notes Jan, Lower extremity edema (ICD-10 - R60.0) Jan, ASHD (arteriosclerotic heart disease) (ICD-10 - I25.10) Jan, HEIN (dyspnea on exertion) (ICD-10 - R06.09) 2,10E+07 Other 08-07-2023 Evaluation note* Encounter Date Diagnosis Assessment Notes Treatment Notes Treatment Clinical Notes Jan, Pernicious anemia (ICD-10 - D51.0) 2,10E+07 Other 07-25-2023 Evaluation note* Encounter Date Diagnosis Assessment Notes Treatment Notes Treatment Clinical Notes Dec, Lower extremity edema (ICD-10 - R60.0) 2,10E+07 Other 07-18-2023 Evaluation note* Encounter Date Diagnosis Assessment Notes Treatment Notes Treatment Clinical Notes Dec, Lower extremity edema (ICD-10 - R60.0) 2,10E+07 Other 07-17-2023 Evaluation note* Encounter Date Diagnosis [...] factors Dec, Elevated d-dimer (ICD-10 - R79.89) 2,10E+07 Other 07-06-2023 Evaluation note* Encounter Date Diagnosis Assessment Notes Treatment Notes Treatment Clinical Notes Dec, Pernicious anemia (ICD-10 - D51.0) 2,10E+07 Other 06-05-2023 Evaluation note* Encounter Date Diagnosis Assessment Notes Treatment Notes Treatment Clinical Notes Nov, Pernicious anemia (ICD-10 - D51.0) 2,10E+07 Other 05-04-2023 Evaluation note* Encounter Date Diagnosis Assessment Notes Treatment Notes Treatment Clinical Notes October, Pernicious anemia (ICD-10 - D51.0) 2,10E+07 Other 04-19-2023 Evaluation note* Encounter Date Diagnosis [...] mammogram in 6mo SBE monthly f/u Surgery 2,10E+07 Other 04-04-2023 Evaluation note* Encounter Date Diagnosis Assessment Notes Treatment Notes Treatment Clinical Notes Sep, Pernicious anemia (ICD-10 - D51.0) 2,10E+07 Other 03-09-2023 Evaluation note* Encounter Date Diagnosis Assessment Notes Treatment Notes Treatment Clinical Notes Aug, Local infection of the skin and subcutaneous tissue, unspecified (ICD-10 - L08.9) Aug, Other injury of unspecified body region, initial encounter (ICD-10 - T14.8XXA) 2,10E+07 Other 03-09-2023 Evaluation note* Encounter Date Diagnosis Assessment Notes Treatment Notes Treatment Clinical Notes Aug, Cellulitis of female breast (ICD-10 - N61.0) Aug, Breast abscess of female (ICD-10 - N61.1) Warm compresses, continue antibiotic coverage. Schedule breast US Refer to Surgery Aug, Hx of breast cancer (ICD-10 - Z85.3) 2,10E+07 Other 03-02-2023 Evaluation note* Encounter Date Diagnosis [...] Hx of breast cancer (ICD-10 - Z85.3) 2,10E+07 Other 01-31-2023 Evaluation note* Encounter Date Diagnosis Assessment Notes Treatment Notes Treatment Clinical Notes Jun, Pernicious anemia (ICD-10 - D51.0) 2,10E+07 Other 05-11-2022 History of Present illness Narrative* Genny Winters PA-C - 10/19/2021 1:30 PM EDT PATIENT NAME: Nora Lopes [facility] NO.: [id number] ATTENDING PHYSICIAN: Stephen Caballero MD DATE OF SERVICE: October 19, 2021 (Elements copied from Dr. Caballero's note dated October 19, 2020, have been reviewed and updated where appropriate, and all reflect current assessment and medical decision making during today's encounter, October 19, 2021) CC: Follow up Diagnosis: 1. Right breast cancer, invasive lobular carcinoma, HER-2/suresh negative ER and OH strongly positive at 95%, diagnosed 2014 Treatment History: 1. Lumpectomy plus sentinel lymph node biopsy October 28, 2014. Invasive lobular carcinoma, 2.2 cm. 2 sentinel lymph nodes negative for involvement. ER OH 95% positive, HER-2/suresh negative. 2. Right breast [...] Date Arthritis Breast cancer (HCC) Right; T2N0M0; ER/OH+ HER2 COPD (chronic obstructive pulmonary disease) (HCC) [...] here for follow up. 81-year-old diagnosed in 2015 with a 2.2 cm, invasive lobular carcinoma, ER and OH 95% positive, HER-2/suresh negative status post lumpectomy [...] CC: Noble Hayes MD documented in this encounterM[facility] Miscellaneous Notes* Telephone Encounter - Stephen Caballero MD - 09/22/2021 1:41 PM EDT Screening is fine. She is 7 years out * Telephone Encounter - Adalgisa Beck RN - 09/22/2021 12:14 PM EDT Patient is scheduled for a screening mammogram on 10/09/21 at [facility]. The diagnosis of malignant neoplasm will not work for a screening mammogram. Patient is 7 years from diagnosis. Would you like to continue with a screening mamm and change the diagnosis to personal history of breast cancer or change the order to a diagnostic mamm? Thanks Sierra Beck RN documented in this encounterMarietta Memorial HospitalDischarge summary Author Jim Clay [facility] December 01, 2023 3:07pm Note Date/Time December 01, 2023 3:[address] [facility] [address] [place] [address] Discharge Summary Signed Patient: Nora Gibbs MR#: [id number] : 1940 Acct:[id number] Age/Sex: 83 / F Adm Date: 4 Loc: Room: [address] [place] [address]: Jim Clay DO Copies to: [...] and stress test thisupcoming week with her trial attorney in [place]. She was self admitted to hospital for [...] The patient was instructed to see her trial attorney this upcoming week for her stress test [...] Blister With Device 1 inh INHALATION DAILY xlfwkg-utyzlmkc-bag C-E-herbal 1,250 mcg-50 mg -67.5 mg-15 mg [...] % (Auto) 62.6, Lymph % (Auto) 22.3, [place] % (Auto) 11.5, Eos % (Auto) 2.8, Baso % (Auto) 0.8, Nucleat RBC Rel Count 0.1, Neut # (Auto) 4.0, Lymph # (Auto) 1.4, [place] # (Auto) 0.7, Eos # (Auto) 0.2, [...] signed by Jim Clay DO> 12/01/23 1507 [facility] Work Phone: Evaluation note* Diagnosis Encounter for screening mammogram for malignant neoplasm of breast- Primary Other screening mammogram documented in this encounter [facility] noteNo [employer] [place] [employer] Other Evaluation note* Diagnosis Onset Date Resolution Status History of breast cancer acu te History of radiation exposure acute Nonhealing surgical wound ac [place] [facility] Work Phone: Evaluation note* Diagnosis Onset Date Resolution Status Essential hypertension acute Cerumen impaction noneactive History of breast cancer acu te History of radiation exposure acute Nonhealing surgical wound ac [place] [facility] Work Phone: Evaluation note* Diagnosis Onset Date Resolution Status History of breast cancer acu te History of radiation exposure acute Nonhealing surgical wound ac [place] ASHD (arteriosclerotic heart disease) acute Chronic bronchitis acute Edema acute Essential hypertension acute History of breast cancer acu te Hypothyroidism acute Pernicious anemia acute Stage 3a chronic kidney disease acute [facility] Work Phone: Evaluation note* Diagnosis Onset Date Resolution Status ASHD (arteriosclerotic heart disease) acute Chronic bronchitis acute Essential hypertension acute History of breast cancer acu te Hypothyroidism acute Lower extremity edema acute Pernicious anemia acute Stage 3a chronic kidney disease acute Chest pain acute Essential hypertension acute [facility] Work Phone: Evaluation note* Diagnosis Onset Date Resolution Status ASHD (arteriosclerotic heart disease) acute Chronic bronchitis acute Essential hypertension acute History of breast cancer acu te Hypothyroidism acute Lower extremity edema acute Pernicious anemia acute Stage 3a chronic kidney disease acute Chest pain acute Essential hypertension acute Lower extremity edema acute [facility] Work Phone: Evaluation note* Diagnosis Onset [...] acute Stage 3a chronic kidney disease acute [facility] Work Phone: Evaluation note* Diagnosis Onset Date Resolution Status (HFpEF) heart failure with preserved ejection fraction acute ASHD (arteriosclerotic heart disease) acute Chronic bronchitis acute Hypothyroidism acute Nicotine dependence, cigarettes, in remission acute Obesity acute Stage 3a chronic kidney disease acute [facility] Work Phone: History general Narrative - [...] cell skin cancer Hospitalization History SEE ABOVE 2,10E+07 Other History general Narrative - Reported* Type [...] History SEE ABOVE Hospitalization History SEE ABOVE 2,10E+07 Other History general Narrative - [facility] Other History general Narrative - Reported* Type [...] cell skin cancer Hospitalization History SEE ABOVE 2,10E+07 Other History general Narrative - Reported* Type [...] ulcera tion 01/2023 Hospitalization History SEE ABOVE 2,10E+07 Other History general Narrative - Reported* Type [...] ulcera tion 05/2023 Hospitalization History SEE ABOVE 2,10E+07 Other Progress note Author Luis Angel Saucedo [facility] August 28, 2023 9:48am Note Date/Time August 28, 2023 9:[address] [facility] [address] [place] [address] Wound Center Provider Note Signed Patient: Nora Gibbs MR#: [id number] : 1940 Acct:[id number] Age/Sex: 83 / F Copies to: MD [...] hematoma. She did see her surgeon in [place] who did her previous surgery. Patient had some punch biopsies performed to rule out cancer which apparently did not show any cancer. She did develop nonhealing wound at this site. She underwent a couple debridements and closures in [place] but each time, the wound did open up and start draining. The last debridement was last month. The surgeon who did her previous surgerieshas since left and the patient did see Dr. Kurtz last week. He did remove some remaining sutures and the patient was then referred here. Patient is currently having dressing changes performed at the [facility]. She has an open right breast [...] did wound start?: 08/2022 Mode of Arrival/ Waste Salvager: Personal vehicle Lives with:: Alone Appetite Description: Within Normal Limits Who helps w/ dressing change?: Home Health and Wound Care Dept Why Do You Need Help?: Can't Reach Ulcer Smoking Status: Former smoker Constitutional Constitutional: Denies fever(s) [facility] Medical History Stage 3a chronic kidney disease [...] 0 CM Sq: 0.000 Surrounding Tissue Appearance: Lockett Surrounding Tissue Temp: Warm Drainage Amount: None [...] [employer] Genny Pitts PA-C [address] [place] [address] [place] [address] [facility] [address] [place] [id number] Referral ID Status Reason Start Date Expiration Date Visits Requested Visits Authorized [id number] Pending Review Auto-Generat ed Referral 10/19/2021 11/18/2022 1 1 [facility] for referral (narrative)* Reason *FU 09/04 Referral for right breast abscess Diagnosis 1 Breast abscess of fe male (N61.1) Referral Organization [facility] Adrianne brandon Referring Provider First Name Noble Referring Provider Last Name Marty Referring Provider Specialty Internal Me oscarine Referred Organization Unknown Facility Referred Provider Checo Reis Referred Provider Specialty Surgery Referral Priority Routine General Notes Kelly Gilbert 01:34:05 PM >received today, notes locked, and referral faxed Kelly Gilbert 08/28/2022 12:05:49 PM >FAXED FIRST ATTEMPT LETTER Clinical Notes . . 2,10E+07 Other Summary Purpose Family History Relationship Condition [...] heart disease) Stage 3a chronic kidney disease Chief Complaint B12 Shot B12 Shot 3 month follow up B12 shot Reason for Visit (HFpEF) heart failur e with preserved ejection fraction ASHD (arteriosclerotic heart disease) Chronic bronchitis Hypothyroidism Nicotine dependence, cigarettes, in remission Obesity Stage 3a chronic kidney disease Chief Complaint Admit Date B12 Shot February 15, 2024 1:11pm 3 month follow up February 19, 2024 10:17am B12 shot March 19, 2024 3: 09pm B12 April 21, 2024 10:54am Reason for Visit Admit Date (HFpEF) heart failure with preserved eje ction fraction February 19, 2024 10:17am ASHD (arteriosclerotic heart disease) Se pt2023 10:17am Chronic bronchitis February 19, 2024 10:17am Hypothyroidism February 19, 2024 10:17am Nicotine dependence, cigarettes, in ruth ssion February 19, 2024 10:17am Obesity February 19, 2024 10:17am Stage 3a chronic kidney disease Septembe r 2023 10:17am Additional Source Comments INFORMATION SOURCE (unrecogn ized section and content) DATE CREATED AUTHOR 09/16/2018 [facility] DATE CREATED AUTHOR AUTHOR'S ORGANIZ ATION 08/23/2022 [facility] DATE CREATED AUTHOR AUTHOR'S ORGANIZ ATION 11/17/2022 [facility] DATE CREATED AUTHOR AUTHOR'S ORGANIZ ATION 06/27/2023 [facility] DATE CREATED AUTHOR AUTHOR'S ORGANIZ ATION 12/11/2023 [facility] DATE CREATED AUTHOR AUTHOR'S ORGANIZ ATION 04/01/2024 [facility] Source Comments (unrecognize d section and content) In the event this informatio n is protected by the Federal Confidentiality of Alcohol and Drug Abuse Patient Records regulations: The Federal rules restrict any use of the information to criminally investigate or prosecute any alcohol or drug abuse patient.[facility] HospitalIn the event this information is protected by the Federal Confidentiality of Alcohol and Drug Abuse Patient Records regulations: The Federal rules restrict any use of the information to criminally investigate or prosecute any alcohol or drug abuse patient.[facility] Reason for Visit (unrecogniz ed section [...] End: September 06, 2023 Lesly Dye APRN RESORT DESK CLERK-C Attending Provider Act wyatt Start: September 06, 2023 End: September 06, 2023 Team Status: Inactive Member Role Status Dates Noble Hayes DO Primary Care Provide r, Attending Provider Active Start: October 08, 2023 End: October 08, 2023 Team Status: Inactive Member Role Status Dates Noble Hayes DO Primary Care Provide r, Attending Provider Active Start: November 08, 2023 End: November 08, 2023 Search Planner Relationship Specialty Start Date End Date Noble Hayes DO PCP - General Internal Medicine 11/09/14 Search Planner Relationship Specialty Start Date End Date Noble [...] Active Start: November 30, 2023 Jim Clay , DO Admit Provider, Atte nding Provider Active Start: November 30, 2023 Team Status: Inactive Member Role Status Dates Nika Fagan DO Emergency Provider Active Start: November 30, 2023 End: December 01, 2023 Noble Hayes DO Primary Care Provider Active Start: November 30, 2023 End: December 01, 2023 Jim Clay , DO Admit Provider, Atte nding Provider Active [...] February 19, 2024 End: February 19, 2024 Team Status: Active Member Role Status Dates Noble Hayes , DO Primary Care Provide r, Attending Provider Active Start: February 25, 2024 Team Status: Inactive Member Role Status Dates Noble Hayes , DO Primary Care Provide r, Attending Provider Active Start: March 19, 2024 End: March 19, 2024 Team Status: Active Member Role Status Dates Noble Hayes , DO Primary Care Provide r, Attending Provider Active Start: February 26, 2024 Team Status: Inactive Member Role Status Dates Noble Hayes , DO Primary Care Provide r, Attending Provider Active Start: April 21, 2024 End: April 21, 2024 Goals (unrecognized section and content) Goals [...] BE BASED ON THE PRIMARY CLINICAL RECORDS. [facility] [employer] provides no warranty or guarantee of the accuracy or completeness of information in this document.
[2024-05-27 16:29] LABS: Basophils Percent Auto 0.4 % (0.2-2.0); Eosinophils Absolute Auto 0.2 10^3/uL (0.0-0.7); Eosinophils Percent Auto 2.6 % (0.9-7.0); Hematocrit 38.4 % (36.0-48.0); Hemoglobin 12.5 g/dL (12.0-16.0); Immature Granulocytes Abs Auto 0.02 10^3/uL (0.00-0.03); Immature Granulocytes Pct Auto 0.2 % (0.0-0.5); Lymphocytes Absolute Auto 1.5 10^3/uL (1.2-3.8); Mean Corpuscular HGB Conc 32.6 g/dL (29.9-35.2); Mean Corpuscular Hemoglobin 30.4 pg (26.7-34.0); Mean Corpuscular Volume 93.4 fL (81.0-99.0); Mean Platelet Volume 10.7 fL (9.5-13.5); Neutrophils Absolute Auto 6.5 10^3/uL (1.4-6.5); Neutrophils Percent Auto 69.8 % (43.0-75.0); Platelet Count 205 10^3/uL (150-450); Red Blood Count 4.11 10^6/uL (4.20-5.40); Red Cell Distribution Width 13.4 % (11.0-15.0); White Blood Count 9.3 10^3/uL (4.0-11.0)
[2024-05-27 17:17] LABS: Alanine Aminotransferase 24 U/L (14-59); Albumin Globulin Ratio 0.9; Albumin Level 3.4 g/dL (3.4-5.0); Alkaline Phosphatase 103 U/L (46-116); Aspartate Amino Transferase 25 U/L (15-37); BUN Creatinine Ratio 12.9; Bilirubin Total 0.3 mg/dL (0.2-1.0); Calcium 9.1 mg/dL (8.5-10.1); Carbon Dioxide 26.2 mmol/L (21.0-32.0); Chloride 108 mmol/L (98-107); Cholesterol 122 mg/dL (<=200); Estimated GFR (African America 54 (>=60 mL/min/1.73m^2); Estimated GFR (Non-African Ame 44 (>=60 mL/min/1.73m^2); Globulin 3.6 g/dL; Glucose 105 mg/dL (74-106); Potassium 4.2 mmol/L (3.5-5.1); Sodium 142 mmol/L (136-145); Triglycerides 154 mg/dL (<=150); VLDL CHOLESTEROL 30.8 mg/dL
[2024-05-27 17:18] LABS: Chol HDL Ratio 2.1; HDL Cholesterol 58 mg/dL (40-60)
== END 2024-05-27 16:12 | disposition home or self-care (01) ==
LOC: LAB 16:11
PROVIDERS: PCP Internal Medicine; Visit Provider Internal Medicine
DX: E03.8 Other specified hypothyroidism (principal); E06.3 Autoimmune thyroiditis; N18.31 Chronic kidney disease, stage 3a; I25.10 Atherosclerotic heart disease of native coronary artery without angina pectoris; I12.9 Hypertensive chronic kidney disease with stage 1 through stage 4 chronic kidney disease, or unspecified chronic kidney disease
CPT/HCPCS: 36415; 80053; 80061; 84443; 85025

== ENCOUNTER 2024-09-25 13:12 | Outpatient (OUT) | payer MEDICARE, SELFPAY ==
--- NOTE | 2024-09-25 13:20 | P.WCHP_ITS ---
Wound Care H&P: HPI History of Present Illness Narrative: Nora is a pleasant 84-year-old female who presents for routine toenail care. She does not have diabetes. She states her nails have been difficult to trim due to thickness and very curly left hallux toenail. She states the nails are painful when they are elongated and relieved when they are trimmed. She denies cramping in her calves or pain in her feet. [facility] Medical History (Updated 09/25/24 @ 13:36 by ANDRES Herrera) Plantar fasciitis ?M72.2 - Plantar fascial fibromatosis (ICD-10) Skin cancer ?C44.90 - Unspecified malignant neoplasm of skin, unspecified (ICD-10) Wound infection (~2014) ?T14.8XXA - Other injury of unspecified body region, initial encounter (ICD- 10) ?L08.9 - Local infection of the skin and subcutaneous tissue, unspecified (ICD-10) Complication of artery associated with surgical procedure (06/01/14) ?I97.89 - Other postprocedural complications and disorders of the circulatory system, not elsewhere classified (ICD-10) Difficult intravenous access ?Z78.9 - Other specified health status (ICD-10) Breast cancer ?C50.919 - Malignant neoplasm of unspecified site of unspecified female breast (ICD-10) Arthritis ?M19.90 - Unspecified osteoarthritis, unspecified site (ICD-10) Anemia ?D64.9 - Anemia, unspecified (ICD-10) Pneumonia ?J18.9 - Pneumonia, unspecified organism (ICD-10) Chronic obstructive pulmonary disease ?J44.9 - Chronic obstructive pulmonary disease, unspecified (ICD-10) Extremity edema ?R60.0 - Localized edema (ICD-10) Dyspnea on exertion ?R06.09 - Other forms of dyspnea (ICD-10) High cholesterol ?E78.00 - Pure hypercholesterolemia, unspecified (ICD-10) Coronary artery disease ?I25.10 - Atherosclerotic heart disease of [place] coronary artery without angina pectoris (ICD-10) Hypertension ?I10 - Essential (primary) hypertension (ICD-10) Hypothyroidism ?E03.9 - Hypothyroidism, unspecified (ICD-10) Postoperative nausea and vomiting ?R11.2 - Nausea with vomiting, unspecified (ICD-10) ?Z98.890 - Other specified postprocedural states (ICD-10) Breast wound ?S21.009A - Unspecified open wound of unspecified breast, initial encounter (ICD-10) Surgical History (Updated 03/14/23 @ 12:38 by Marina Bolivar NP) History of incision and drainage (01/31/23) ?Z98.890 - Other specified postprocedural states (ICD-10) Hx of local excision of skin lesion (10/14/19) ?Z98.890 - Other specified postprocedural states (ICD-10) S/P skin biopsy (09/30/19) ?Z98.890 - Other specified postprocedural states (ICD-10) 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) ?Z96.642 - Presence of left artificial hip joint (ICD-10) H/O colonoscopy (03/31/15) ?Z98.890 - Other specified postprocedural states (ICD-10) H/O exploratory laparotomy (~06/01/14) ?Z98.890 - Other specified postprocedural states (ICD-10) H/O toe surgery (04/19/12) ?Z98.890 - Other specified postprocedural states (ICD-10) S/P left knee arthroscopy (04/22/08) ?Z98.890 - Other specified postprocedural states (ICD-10) H/O left breast biopsy (01/02/06) ?Z98.890 - Other specified postprocedural states (ICD-10) H/O lumbosacral spine surgery (04/23/98) ?Z98.890 - Other specified postprocedural states (ICD-10) H/O cervical spine surgery (07/09/97) ?Z98.890 - Other specified postprocedural states (ICD-10) History of surgery on arm (02/04/97) ?Z98.890 - Other specified postprocedural states (ICD-10) History of cervical spinal surgery (04/07/96) ?Z98.890 - Other specified postprocedural states (ICD-10) H/O shoulder surgery (04/07/96) ?Z98.890 - Other specified postprocedural states (ICD-10) H/O dilation and curettage (02/16/1962) ?Z98.890 - Other specified postprocedural states (ICD-10) H/O cervical spine surgery (07/19/95) ?Z98.890 - Other specified postprocedural states (ICD-10) H/O exploratory laparotomy (~1970) ?Z98.890 - Other specified postprocedural states (ICD-10) History of hysterectomy (~1970) ?Z90.710 - Acquired absence of both cervix and uterus (ICD-10) History of colostomy reversal (04/14/15) ?Z98.890 - Other specified postprocedural states (ICD-10) History of colostomy (07/07/14) History of esophagogastroduodenoscopy (EGD) ?Z98.890 - Other specified postprocedural states (ICD-10) History of colonoscopy (07/01/14) ?Z98.890 - Other specified postprocedural states (ICD-10) History of tonsillectomy (~1940) ?Z90.89 - Acquired absence of other organs (ICD-10) History of breast biopsy ?Z98.890 - Other specified postprocedural states (ICD-10) H/O lumpectomy (10/28/14) ?Z98.890 - Other specified postprocedural states (ICD-10) S/P cataract extraction and insertion of intraocular lens (~2006) ?Z98.49 - Cataract extraction status, unspecified eye (ICD-10) ?Z96.1 - Presence of intraocular lens (ICD-10) History of heart artery stent (09/03/18) ?Z95.5 - Presence of coronary angioplasty implant and graft (ICD-10) History of cardiac catheterization (09/03/18) ?Z98.890 - Other specified postprocedural states (ICD-10) History of total hip arthroplasty (10/25/10) ?Z96.649 - Presence of unspecified artificial hip joint (ICD-10) History of arthroplasty of knee (12/09/13) ?Z96.659 - Presence of unspecified artificial knee joint (ICD-10) Family History (Updated 01/18/23 @ 13:24 by Marina Bolivar NP) Other Family history of lung cancer Social History (Updated 03/20/23 @ 08:35 by Cheryl Diana) Within the past year, how often did you have a drink containing alcohol: never Score interpretation: A score less than 3 is consistent with normal alcohol consumption. Smoking status: Former smoker Non-prescribed substance use: denies use Previous occupational history: RETIRED Highest level of school completed/degree received: high school graduate Meds Home Medications and Allergies Home Medications ?Medication ?Instructions ?Recorded ?Confirmed ?Type acetaminophen 500 mg capsule 1,000 mg PO Q6H PRN pain 01/18/23 03/20/23 History albuterol sulfate 90 mcg/actuation 2 inh inhalation Q6H PRN shortness 01/18/23 03/20/23 History aerosol inhaler of breath or wheezing amlodipine 10 mg tablet 10 mg PO DAILY 01/18/23 03/20/23 History aspirin 81 mg tablet,delayed 81 mg PO DAILY 01/18/23 03/20/23 History release (Adult Aspirin Regimen) atorvastatin 40 mg tablet 40 mg PO QPM 01/18/23 03/20/23 History biotin 10,000 mcg chewable tablet mcg PO 01/18/23 History (Hair, Skin and Nails (biotin)) calcium 600 mg (as 1 tab PO DAILY 01/18/23 03/20/23 History carbonate)-vitamin D3 5 mcg (200 unit) tablet cyanocobalamin (vitamin B-12) 500 mcg IM .monthly 01/18/23 03/20/23 History 1,000 mcg/mL injection solution docusate sodium 100 mg capsule 100 mg PO DAILY PRN constipation 01/18/23 03/20/23 History (Colace) fluticasone fur. 200 mcg-umeclid 1 inh inhalation DAILY 01/18/23 03/20/23 History 62.5 mcg-vilant 25 mcg inhalat.powder (Trelegy Ellipta) inulin 2 gram chewable tablet g PO 01/18/23 History (Fiber Gummies) isosorbide mononitrate 60 mg 60 mg PO DAILY 01/18/23 03/20/23 History tablet,extended release 24 hr levothyroxine 88 mcg tablet 88 mcg PO DAILY 01/18/23 03/20/23 History (Euthyrox) lisinopril 20 mg tablet 20 mg PO DAILY 01/18/23 03/20/23 History temazepam 30 mg capsule (Restoril) 30 mg PO QPM 01/18/23 03/20/23 History Allergies Allergy/AdvReac Type Severity Reaction Status Date / Time Penicillins Allergy Hives Verified 03/14/23 12:31 Sulfa (Sulfonamide Allergy Rash Verified 03/14/23 12:31 Antibiotics) Exam Narrative: Exam Narrative: Dermatologic: Fungal/mycotic toenails with a spiral left hallux toenail. The left hallux toenail is ingrown on both borders without evidence of paronychia. No ulcerative or preulcerative lesions noted. Skin is dry and shiny. Vascular: PT pulses are 1/4 bilaterally, dorsalis pedis pulses nonpalpable bilaterally. Capillary refill is less than 3 seconds. Superficial varicosities are noted. There is nonpitting edema of the feet and ankles bilaterally. Skin is cool to the touch. Digital hair is absent bilaterally. Neuro: Vibratory sensation intact bilaterally, Achilles deep tendon reflexes 1+ bilaterally, monofilament testing was absent to all 4 tested areas on the right and present in 2/4 areas on the left MSK: Strength 5/5 in all planes, contractures of the lesser toes noted Results Results Additional studies: Procedure note: After verbal consent, toenails 1 through 10 were sharply debrided with nail nippers and with a Dremel tool without incident. The patient noted pain relief immediately postprocedure. Assessment and Plan Assessment and Plan (1) Tinea unguium: (2) Diminished pulses in lower extremity: (3) Disorder of nail due to another disorder: Plan The patient's toenails were debrided as above. She noted immediate pain relief. She does not have diabetes, but does meet criteria for nail care with decreased digital hair, nail changes, skin color changes, and absent dorsalis pedis pulses. Follow-up in 3 months, sooner as needed. Acute Procedures Podiatry Nail Debridement Class B Findings Advanced trophic changes as evidenced by any three of the following: decreased hair growth, nail changes (thickening), pigmentary changes (discoloring) and skin texture (thin or shiny) Absent dorsalis pedis pulse: bilateral Class C Findings Claudication: No Temperature changes: Yes Edema: Yes Nail debridement paresthesia (abnormal spontaneous sensations in the feet): No Burning: No Qualifies If: Qualifiers If:: A patient qualifies for nail debridement if they have: 1 class A finding (Q7) 2 class B findings (Q8) OR 1 class B & 2 class C findings in addition to a primary condition (Q9) Nail Procedure Nail Procedure Time out: Yes Nail procedure: other (sharp debridement) Number of affected nails: 10 Method of drainage: other (sharp debridement with nail nippers) Procedure successful: Yes Patient tolerated procedure: well and no complications Complications: other (none)
== END 2024-09-25 13:13 | disposition home or self-care (01) ==
LOC: WC 13:16
PROVIDERS: PCP Internal Medicine; Visit Provider Physician Assistant
DX: L60.3 Nail dystrophy (principal); B35.1 Tinea unguium; L60.8 Other nail disorders; L60.0 Ingrowing nail; R09.89 Other specified symptoms and signs involving the circulatory and respiratory systems
CPT/HCPCS: 11721

== ENCOUNTER 2024-10-04 19:39 | Emergency (ER) | payer MEDICARE, SELFPAY ==
[2024-10-04 19:44] VITALS: BP 160/60; PULSE 76; TEMP 37.1; O2SAT 95; BMI 35.1
--- NOTE | 2024-10-04 20:07 | ECG_ITS ---
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 Measurements Intervals [place]nor Rate: 73 P: 70 SD: 190 QRS: 67 QRSD: 76 T: 61 QT: 366 QTc: 392 Interpretive Statements 1100 Sinus rhythm 9110 normal ECG Compared to ECG 01/18/2023 13:36:05 Sinus bradycardia no longer present Electronically Signed On 10-05-2024 7:18:29 EDT by BALA ROBLES M.D.
--- NOTE | 2024-10-04 20:08 | ED.GENADUL1 ---
HPI HPI - General Adult General Chief complaint: Shortness of Breath/Dyspnea Stated complaint: SHORTNESS OF MARIA Time Seen by Provider: 10/04/24 19:47 Source: patient Mode of arrival: Wheelchair Limitations: no limitations History of Present Illness HPI narrative: cc - sore throat, shortness of breath The patient presents with flulike symptoms. Yesterday she developed sore throat, cough that kept her up most of the night. Today she had some exertional dyspnea and later felt some shortness of breath at rest. She never had any chest pain but admits to some diffuse muscle aches and fatigue. No GI or symptoms. No fever but she did feel really cold all day . No known ill exposures She said that she saw Dr. Waldrop, the manager of loss prevention operations last month and after getting PFTs he told her that her lungs are okay and he referred her to cardiology for evaluation. She already sees Dr. Hair for blood pressure control -she saw him on 24 September and had her evening dose of her antihypertensive increased. Related Data Home Medications ?Medication ?Instructions ?Recorded ?Confirmed acetaminophen 500 mg capsule 1,000 mg PO Q6H PRN pain 01/18/23 10/04/24 albuterol sulfate 90 mcg/actuation 2 inh inhalation Q6H PRN shortness 01/18/23 10/04/24 aerosol inhaler of breath or wheezing amlodipine 10 mg tablet 10 mg PO DAILY 01/18/23 03/20/23 aspirin 81 mg tablet,delayed 81 mg PO DAILY 01/18/23 10/04/24 release (Adult Aspirin Regimen) atorvastatin 40 mg tablet 40 mg PO QPM 01/18/23 10/04/24 biotin 10,000 mcg chewable tablet mcg PO DAILY 01/18/23 (Hair, Skin and Nails (biotin)) calcium 600 mg (as 1 tab PO DAILY 01/18/23 10/04/24 carbonate)-vitamin D3 5 mcg (200 unit) tablet cyanocobalamin (vitamin B-12) 500 mcg IM .monthly 01/18/23 10/04/24 1,000 mcg/mL injection solution docusate sodium 100 mg capsule 100 mg PO DAILY PRN constipation 01/18/23 03/20/23 (Colace) fluticasone fur. 200 mcg-umeclid 1 inh inhalation DAILY 01/18/23 03/20/23 62.5 mcg-vilant 25 mcg inhalat.powder (Trelegy Ellipta) inulin 2 gram chewable tablet 5 g PO BID 01/18/23 10/04/24 (Fiber Gummies) isosorbide mononitrate 60 mg 90 mg PO DAILY 01/18/23 10/04/24 tablet,extended release 24 hr levothyroxine 88 mcg tablet 88 mcg PO DAILY 01/18/23 10/04/24 (Euthyrox) lisinopril 20 mg tablet 20 mg PO BID 01/18/23 10/04/24 temazepam 30 mg capsule (Restoril) 30 mg PO QPM 01/18/23 10/04/24 doxazosin 2 mg tablet 4 mg PO DAILY 10/04/24 10/04/24 metoprolol succinate 25 mg 12.5 mg PO DAILY 10/04/24 10/04/24 tablet,extended release 24 hr Allergies Allergy/AdvReac Type Severity Reaction Status Date / Time Penicillins Allergy Hives Verified 10/04/24 19:56 Sulfa (Sulfonamide Allergy Rash Verified 10/04/24 19:56 Antibiotics) Opioid HPI Opioid Management Most Recent Opioid Data: Last Pain Scale 1 03/20/23 11:20 03/20/23 [facility] Medical History (Updated 10/04/24 @ 21:08 by Danyel Randle) Plantar fasciitis ?M72.2 - Plantar fascial fibromatosis (ICD-10) Skin cancer ?C44.90 - Unspecified malignant neoplasm of skin, unspecified (ICD-10) Wound infection (~2014) ?T14.8XXA - Other injury of unspecified body region, initial encounter (ICD-10) ?L08.9 - Local infection of the skin and subcutaneous tissue, unspecified (ICD-10) Complication of artery associated with surgical procedure (06/01/14) ?I97.89 - Other postprocedural complications and disorders of the circulatory system, not elsewhere classified (ICD-10) Difficult intravenous access ?Z78.9 - Other specified health status (ICD-10) Breast cancer ?C50.919 - Malignant neoplasm of unspecified site of unspecified female breast (ICD-10) Arthritis ?M19.90 - Unspecified osteoarthritis, unspecified site (ICD-10) Anemia ?D64.9 - Anemia, unspecified (ICD-10) Pneumonia ?J18.9 - Pneumonia, unspecified organism (ICD-10) Chronic obstructive pulmonary disease ?J44.9 - Chronic obstructive pulmonary disease, unspecified (ICD-10) Extremity edema ?R60.0 - Localized edema (ICD-10) Dyspnea on exertion ?R06.09 - Other forms of dyspnea (ICD-10) High cholesterol ?E78.00 - Pure hypercholesterolemia, unspecified (ICD-10) Coronary artery disease ?I25.10 - Atherosclerotic heart disease of [place] coronary artery without angina pectoris (ICD-10) Hypertension ?I10 - Essential (primary) hypertension (ICD-10) Hypothyroidism ?E03.9 - Hypothyroidism, unspecified (ICD-10) Postoperative nausea and vomiting ?R11.2 - Nausea with vomiting, unspecified (ICD-10) ?Z98.890 - Other specified postprocedural states (ICD-10) Breast wound ?S21.009A - Unspecified open wound of unspecified breast, initial encounter (ICD-10) Surgical History (Updated 03/14/23 @ 12:38 by Marina Bolivar NP) History of incision and drainage (01/31/23) ?Z98.890 - Other specified postprocedural states (ICD-10) Hx of local excision of skin lesion (10/14/19) ?Z98.890 - Other specified postprocedural states (ICD-10) S/P skin biopsy (09/30/19) ?Z98.890 - Other specified postprocedural states (ICD-10) 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) ?Z96.642 - Presence of left artificial hip joint (ICD-10) H/O colonoscopy (03/31/15) ?Z98.890 - Other specified postprocedural states (ICD-10) H/O exploratory laparotomy (~06/01/14) ?Z98.890 - Other specified postprocedural states (ICD-10) H/O toe surgery (04/19/12) ?Z98.890 - Other specified postprocedural states (ICD-10) S/P left knee arthroscopy (04/22/08) ?Z98.890 - Other specified postprocedural states (ICD-10) H/O left breast biopsy (01/02/06) ?Z98.890 - Other specified postprocedural states (ICD-10) H/O lumbosacral spine surgery (04/23/98) ?Z98.890 - Other specified postprocedural states (ICD-10) H/O cervical spine surgery (07/09/97) ?Z98.890 - Other specified postprocedural states (ICD-10) History of surgery on arm (02/04/97) ?Z98.890 - Other specified postprocedural states (ICD-10) History of cervical spinal surgery (04/07/96) ?Z98.890 - Other specified postprocedural states (ICD-10) H/O shoulder surgery (04/07/96) ?Z98.890 - Other specified postprocedural states (ICD-10) H/O dilation and curettage (02/16/1962) ?Z98.890 - Other specified postprocedural states (ICD-10) H/O cervical spine surgery (07/19/95) ?Z98.890 - Other specified postprocedural states (ICD-10) H/O exploratory laparotomy (~1970) ?Z98.890 - Other specified postprocedural states (ICD-10) History of hysterectomy (~1970) ?Z90.710 - Acquired absence of both cervix and uterus (ICD-10) History of colostomy reversal (04/14/15) ?Z98.890 - Other specified postprocedural states (ICD-10) History of colostomy (07/07/14) History of esophagogastroduodenoscopy (EGD) ?Z98.890 - Other specified postprocedural states (ICD-10) History of colonoscopy (07/01/14) ?Z98.890 - Other specified postprocedural states (ICD-10) History of tonsillectomy (~1940) ?Z90.89 - Acquired absence of other organs (ICD-10) History of breast biopsy ?Z98.890 - Other specified postprocedural states (ICD-10) H/O lumpectomy (10/28/14) ?Z98.890 - Other specified postprocedural states (ICD-10) S/P cataract extraction and insertion of intraocular lens (~2006) ?Z98.49 - Cataract extraction status, unspecified eye (ICD-10) ?Z96.1 - Presence of intraocular lens (ICD-10) History of heart artery stent (09/03/18) ?Z95.5 - Presence of coronary angioplasty implant and graft (ICD-10) History of cardiac catheterization (09/03/18) ?Z98.890 - Other specified postprocedural states (ICD-10) History of total hip arthroplasty (10/25/10) ?Z96.649 - Presence of unspecified artificial hip joint (ICD-10) History of arthroplasty of knee (12/09/13) ?Z96.659 - Presence of unspecified artificial knee joint (ICD-10) Family History (Updated 01/18/23 @ 13:24 by Marina Bolivar NP) Other Family history of lung cancer Social History (Updated 03/20/23 @ 08:35 by Cheryl Diana) Within the past year, how often did you have a drink containing alcohol: never Score interpretation: A score less than 3 is consistent with normal alcohol consumption. Smoking status: Former smoker Non-prescribed substance use: denies use Previous occupational history: RETIRED Highest level of school completed/degree received: high school graduate Little interest or pleasure in doing things: not at all Feeling down, depressed, or hopeless: not at all Exam Narrative Exam Narrative: Nurses notes and vital signs reviewed and patient is not hypoxic. afebrile General: Well-appearing and in no apparent distress. Skin: Warm, dry, no pallor noted. No rash. Head: Normocephalic, atraumatic. Neck: Supple, non-tender. Eye: Pupils are equal, round and EOMI. No scleral icterus. Ears, Nose, Mouth, and Throat: TM are clear, no nasal mucosal hypertrophy, mild posterior oropharynx erythema without lesions or exudate, uvula is mid-line Oral mucosa is moist Cardiovascular: Regular Rate and Rhythm without murmur, gallop or rub. Respiratory: No accessory muscle use or respiratory distress but she has borderline tachypnea on examination. Lungs are clear to auscultation, no wheezing, rales or rhonchi with equal air exchange throughout all lung barba Musculoskeletal: normal ROM, no calf or popliteal tenderness, no lower extremity edema/swelling GI: Abdomen is soft, non-distended. Normal bowel sounds. No tenderness to palpation. No rebound, guarding, or rigidity noted. Neurological: A&O x4. No cranial nerve dysfunction observed. No truncal ataxia. Moves all extremities. Sensation intact. Psychiatric: Cooperative and interactive. Normal mood and affect. Constitutional Vital Signs, click to edit/add: Last Vital Signs Temp 98.7 F 10/04/24 19:44 Pulse 65 10/04/24 20:55 Resp 18 10/04/24 20:55 BP 160/60 H 10/04/24 19:44 Pulse Ox 94 L 10/04/24 20:55 O2 Del Method Room Air 10/04/24 20:55 Course Vital Signs Vital signs: Vital Signs Temperature 98.7 F 10/04/24 19:44 Pulse Rate 76 10/04/24 19:44 Respiratory Rate 20 10/04/24 19:44 Blood Pressure 160/60 H 10/04/24 19:44 Pulse Oximetry 95 10/04/24 19:44 Oxygen Delivery Method Room Air 10/04/24 19:44 Temperature 98.7 F 10/04/24 19:44 Pulse Rate 65 10/04/24 20:55 Respiratory Rate 18 10/04/24 20:55 Blood Pressure 160/60 H 10/04/24 19:44 Pulse Oximetry 94 L 10/04/24 20:55 Oxygen Delivery Method Room Air 10/04/24 20:55 Medical Decision Making MDM Narrative Medical decision making narrative: Patient was placed on director of cardiac cath lab and EKG obtained. Blood drawn and sent for evaluation. Patient was swabbed for COVID, influenza and streptococcal pharyngitis. Portable chest x-ray was obtained. Workup was negative. All of her swabs including influenza, COVID and strep were negative. Her chest x-ray viewed by me as well as reported by the radiologist was negative for any acute cardiopulmonary process. No elevation of troponin or BNP. Her EKG was normal. Kidney function is at baseline no electrolyte abnormalities no other worrisome findings. She did notice a slight improvement after receiving an albuterol treatment in the ED. She has additional albuterol MDI to take at home. We discussed treatment for this flulike and respiratory illness including increased hydration, Tylenol for any discomfort or pain, continue her current medications make sure she is resting and eating appropriately. She will take her evening dose of antihypertensive meds when she returns home Lab Data Lab results reviewed: Yes I reviewed the patient's lab results Labs: Lab Results 10/04/24 10/04/24 Range/Units 20:00 20:09 WBC 12.3 H (4.0-11.0) 10^3/uL RBC 4.13 L (4.20-5.40) 10^6/uL Hgb 12.4 (12.0-16.0) g/dL Hct 38.3 (36.0-48.0) % MCV 92.7 (81.0-99.0) fL MCH 30.0 (26.7-34.0) pg MCHC 32.4 (29.9-35.2) g/dL RDW 13.1 (11.0-15.0) % Plt Count 186 (150-450) 10^3/uL MPV 11.5 (9.5-13.5) fL Neut % (Auto) 75.8 H (43.0-75.0) % Lymph % (Auto) 10.7 L (20.5-60.0) % [place] % (Auto) 11.5 (1.7-12.0) % Eos % (Auto) 1.5 (0.9-7.0) % Baso % (Auto) 0.2 (0.2-2.0) % Neut # (Auto) 9.3 H (1.4-6.5) 10^3/uL Lymph # (Auto) 1.3 (1.2-3.8) 10^3/uL [place] # (Auto) 1.4 H (0.3-0.8) 10^3/uL Eos # (Auto) 0.2 (0.0-0.7) 10^3/uL Baso # (Auto) 0.0 (0.0-0.1) 10^3/uL Abs Immat Gran (auto) 0.04 H (0.00-0.03) 10^3/uL Imm/Tot Granulo (auto) 0.3 (0.0-0.5) % Sodium 141 (136-145) mmol/L Potassium 4.2 (3.5-5.1) mmol/L Chloride 103 (98-107) mmol/L Carbon Dioxide 28.5 (21.0-32.0) mmol/L Anion Gap 13.7 BUN 24.0 H (7.0-18.0) mg/dL Creatinine 1.38 H (0.55-1.02) mg/dL Est GFR ( Amer) 44 L (>=60 mL/min/1.73m^2) Est GFR (Non-Af Amer) 36 L (>=60 mL/min/1.73m^2) BUN/Creatinine Ratio 17.4 Glucose 145 H (74-106) mg/dL Calcium 9.3 (8.5-10.1) mg/dL Troponin I High Sens 5.2 (4.0-51.3) pg/mL NT-Pro-B Natriuret Pep 496.0 (<=1800.0) pg/mL Influenza Type A Ag Negative Influenza Type B Ag Negative SARS-CoV-2 Ag (CV2AG) Negative (NEGATIVE) Streptococcus Screen Negative Imaging Data Chest x-ray: My impression: No acute cardiopulmonary disease Radiologist's impression: No acute cardiopulmonary disease ECG Data Attestation: I personally reviewed and interpreted this ECG as follows: Interpretation: EKG interpretation: Emergency Department physician interpretation. Normal sinus rhythm at 73bpm. Normal axis, normal intervals and no ST segment elevation or depression. Normal EKG. Discharge Plan Discharge Chief Complaint: Shortness of Breath/Dyspnea Clinical Impression: Upper respiratory infection, Pharyngitis, Hypertension Patient Disposition: Home, Self-Care Time of Disposition Decision: 21:07 Prescriptions / Home Meds: No Action doxazosin 2 mg tablet 4 mg PO DAILY Rx Instructions: HS metoprolol succinate 25 mg tablet extended release 24 hr 12.5 mg PO DAILY lisinopril 20 mg tablet 20 mg PO BID amlodipine 10 mg tablet 10 mg PO DAILY levothyroxine [Euthyrox] 88 mcg tablet 88 mcg PO DAILY isosorbide mononitrate 60 mg tablet extended release 24 hr 90 mg PO DAILY aspirin [Adult Aspirin Regimen] 81 mg tablet,delayed release (DR/EC) 81 mg PO DAILY Fiber Gummies 2 gram tablet,chewable 5 g PO BID Rx Instructions: 5 mg calcium carbonate-vitamin D3 600 mg-5 mcg (200 unit) tablet 1 tab PO DAILY Rx Instructions: 2000 mg plus Vitamin D Trelegy Ellipta 200-62.5-25 mcg blister with device 1 inh inhalation DAILY Hair, Skin and Nails (biotin) 10,000 mcg tablet,chewable PO DAILY Rx Instructions: 2 after supper atorvastatin 40 mg tablet 40 mg PO QPM temazepam [Restoril] 30 mg capsule 30 mg PO QPM cyanocobalamin (vitamin B-12) 1,000 mcg/mL solution 500 mcg IM .monthly acetaminophen 500 mg capsule 1,000 mg PO Q6H PRN (Reason: pain) albuterol sulfate 90 mcg/actuation HFA aerosol inhaler 2 inh inhalation Q6H PRN (Reason: shortness of breath or wheezing) docusate sodium [Colace] 100 mg capsule 100 mg PO DAILY PRN (Reason: constipation) Print Language: [place] Instructions: Pharyngitis (ED), Upper Respiratory Infection (ED), Chronic Hypertension (ED) Referrals: Noble Ferguson DO [Primary Care Provider] - 1 week
[2024-10-04 20:16] LABS: Basophils Percent Auto 0.2 % (0.2-2.0); Eosinophils Absolute Auto 0.2 10^3/uL (0.0-0.7); Eosinophils Percent Auto 1.5 % (0.9-7.0); Hematocrit 38.3 % (36.0-48.0); Hemoglobin 12.4 g/dL (12.0-16.0); Immature Granulocytes Abs Auto 0.04 10^3/uL (0.00-0.03); Immature Granulocytes Pct Auto 0.3 % (0.0-0.5); Lymphocytes Absolute Auto 1.3 10^3/uL (1.2-3.8); Lymphocytes Percent Auto 10.7 % (20.5-60.0); Mean Corpuscular HGB Conc 32.4 g/dL (29.9-35.2); Mean Corpuscular Volume 92.7 fL (81.0-99.0); Mean Platelet Volume 11.5 fL (9.5-13.5); Monocytes Absolute Auto 1.4 10^3/uL (0.3-0.8); Monocytes Percent Auto 11.5 % (1.7-12.0); Neutrophils Absolute Auto 9.3 10^3/uL (1.4-6.5); Neutrophils Percent Auto 75.8 % (43.0-75.0); Platelet Count 186 10^3/uL (150-450); Red Blood Count 4.13 10^6/uL (4.20-5.40); Red Cell Distribution Width 13.1 % (11.0-15.0); White Blood Count 12.3 10^3/uL (4.0-11.0)
[2024-10-04 20:28] LABS: Influenza Virus A Antigen Negative; Influenza Virus B Antigen Negative; Internal Control Within Normal Limits; SARS-CoV-2 Ag NEGATIVE (NEGATIVE); Strep A Antigen Screen Negative
[2024-10-04 20:38] LABS: Anion Gap 13.7; BUN Creatinine Ratio 17.4; Calcium 9.3 mg/dL (8.5-10.1); Carbon Dioxide 28.5 mmol/L (21.0-32.0); Chloride 103 mmol/L (98-107); Estimated GFR (African America 44 (>=60 mL/min/1.73m^2); Estimated GFR (Non-African Ame 36 (>=60 mL/min/1.73m^2); Glucose 145 mg/dL (74-106); Potassium 4.2 mmol/L (3.5-5.1); Sodium 141 mmol/L (136-145); Troponin I High Sensitivity 5.2 pg/mL (4.0-51.3)
--- NOTE | 2024-10-04 20:43 | PC.NURSE ---
Coarse with exp. faint exp.wheeze
[2024-10-04 20:55] VITALS: PULSE 65; O2SAT 94
[2024-10-04] MEDS: ALBUTEROL SULFATE 2.5 MG/3 ML VIAL NEB IH (20:57)
[2024-10-04 21:26] VITALS: BP 164/48; PULSE 71; O2SAT 100
== END 2024-10-04 21:28 | disposition home or self-care (01) ==
PROVIDERS: Emergency Provider Emergency Medicine; PCP Internal Medicine
DX: J06.9 Acute upper respiratory infection, unspecified (principal); J02.9 Acute pharyngitis, unspecified; I10 Essential (primary) hypertension; R06.02 Shortness of breath; Z96.642 Presence of left artificial hip joint
CPT/HCPCS: 36415; 71045; 80048; 83880; 84484; 85025; 87070; 87804; 87811; 87880; 93005; 94640; 99285

== ENCOUNTER 2024-10-09 10:08 | Emergency (ER) | payer MEDICARE, SELFPAY ==
[2024-10-09 10:13] VITALS: BP 184/60; PULSE 78; TEMP 36.8; O2SAT 94; BMI 34.8
--- NOTE | 2024-10-09 10:32 | ED.GENADUL1 ---
HPI HPI - General Adult General Chief complaint: Shortness of Breath/Dyspnea Stated complaint: SHORT OF BREATH Time Seen by Provider: 10/09/24 10:23 Source: patient Mode of arrival: Wheelchair Limitations: no limitations History of Present Illness HPI narrative: This 84-year-old female presents to the emergency department with chief complaint shortness of breath of several months duration. She states her symptoms are getting much worse now. Walking to the bathroom makes her short of breath and she breaks out in a sweat. She is scheduled for an outpatient echocardiogram tomorrow and cardiac cath in mid November. In 2019 she had 1 coronary artery stented and states that there was 70% narrowing of her other coronaries. She is a past smoker and was following up with a general manager food for possible COPD. She states she was fine recently and was told that her symptoms were not caused by lung disease. Patient has a history of cancer of the right breast. She states that she developed breast abscess and had to have multiple surgeries for that also. Related Data Home Medications ?Medication ?Instructions ?Recorded ?Confirmed acetaminophen 500 mg capsule 1,000 mg PO Q6H PRN pain 01/18/23 10/09/24 albuterol sulfate 90 mcg/actuation 2 inh inhalation Q6H PRN shortness 01/18/23 10/09/24 aerosol inhaler of breath or wheezing amlodipine 10 mg tablet 10 mg PO DAILY 01/18/23 10/09/24 aspirin 81 mg tablet,delayed 81 mg PO DAILY 01/18/23 10/09/24 release (Adult Aspirin Regimen) atorvastatin 40 mg tablet 40 mg PO QPM 01/18/23 10/09/24 calcium 600 mg (as 1 tab PO DAILY 01/18/23 10/09/24 carbonate)-vitamin D3 5 mcg (200 unit) tablet cyanocobalamin (vitamin B-12) 500 mcg IM .monthly 01/18/23 10/09/24 1,000 mcg/mL injection solution docusate sodium 100 mg capsule 100 mg PO DAILY PRN constipation 01/18/23 10/09/24 (Colace) fluticasone fur. 200 mcg-umeclid 1 inh inhalation DAILY 01/18/23 10/09/24 62.5 mcg-vilant 25 mcg inhalat.powder (Trelegy Ellipta) inulin 2 gram chewable tablet 5 g PO BID 01/18/23 10/09/24 (Fiber Gummies) isosorbide mononitrate 60 mg 90 mg PO DAILY 01/18/23 10/09/24 tablet,extended release 24 hr levothyroxine 88 mcg tablet 88 mcg PO DAILY 01/18/23 10/09/24 (Euthyrox) lisinopril 20 mg tablet 20 mg PO BID 01/18/23 10/09/24 temazepam 30 mg capsule (Restoril) 30 mg PO QPM 01/18/23 10/09/24 doxazosin 2 mg tablet 4 mg PO DAILY 10/04/24 10/09/24 metoprolol succinate 25 mg 12.5 mg PO DAILY 10/04/24 10/09/24 tablet,extended release 24 hr isosorbide mononitrate 30 mg 30 mg PO DAILY 10/09/24 10/09/24 tablet,extended release 24 hr Previous Rx's ?Medication ?Instructions ?Recorded pantoprazole 40 mg tablet,delayed 40 mg PO DAILY 6 weeks #42 tabs 10/09/24 release (Protonix) Allergies Allergy/AdvReac Type Severity Reaction Status Date / Time Penicillins Allergy Hives Verified 10/04/24 19:56 Sulfa (Sulfonamide Allergy Rash Verified 10/04/24 19:56 Antibiotics) Opioid HPI Opioid Management Most Recent Opioid Data: Last Pain Scale 1 03/20/23, 11:20 Review of Systems ROS Status of ROS 10 or more systems reviewed and unremarkable except as noted in history and below [facility] Medical History Plantar fasciitis ?M72.2 - Plantar fascial fibromatosis (ICD-10) Skin cancer ?C44.90 - Unspecified malignant neoplasm of skin, unspecified (ICD-10) Wound infection (~2014) ?T14.8XXA - Other injury of unspecified body region, initial encounter (ICD-10) ?L08.9 - Local infection of the skin and subcutaneous tissue, unspecified (ICD-10) Complication of artery associated with surgical procedure (06/01/14) ?I97.89 - Other postprocedural complications and disorders of the circulatory system, not elsewhere classified (ICD-10) Difficult intravenous access ?Z78.9 - Other specified health status (ICD-10) Breast cancer ?C50.919 - Malignant neoplasm of unspecified site of unspecified female breast (ICD-10) Arthritis ?M19.90 - Unspecified osteoarthritis, unspecified site (ICD-10) Anemia ?D64.9 - Anemia, unspecified (ICD-10) Pneumonia ?J18.9 - Pneumonia, unspecified organism (ICD-10) Chronic obstructive pulmonary disease ?J44.9 - Chronic obstructive pulmonary disease, unspecified (ICD-10) Extremity edema ?R60.0 - Localized edema (ICD-10) Dyspnea on exertion ?R06.09 - Other forms of dyspnea (ICD-10) High cholesterol ?E78.00 - Pure hypercholesterolemia, unspecified (ICD-10) Coronary artery disease ?I25.10 - Atherosclerotic heart disease of [place] coronary artery without angina pectoris (ICD-10) Hypertension ?I10 - Essential (primary) hypertension (ICD-10) Hypothyroidism ?E03.9 - Hypothyroidism, unspecified (ICD-10) Postoperative nausea and vomiting ?R11.2 - Nausea with vomiting, unspecified (ICD-10) ?Z98.890 - Other specified postprocedural states (ICD-10) Breast wound ?S21.009A - Unspecified open wound of unspecified breast, initial encounter (ICD-10) Surgical History History of incision and drainage (01/31/23) ?Z98.890 - Other specified postprocedural states (ICD-10) Hx of local excision of skin lesion (10/14/19) ?Z98.890 - Other specified postprocedural states (ICD-10) S/P skin biopsy (09/30/19) ?Z98.890 - Other specified postprocedural states (ICD-10) 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) ?Z96.642 - Presence of left artificial hip joint (ICD-10) H/O colonoscopy (03/31/15) ?Z98.890 - Other specified postprocedural states (ICD-10) H/O exploratory laparotomy (~06/01/14) ?Z98.890 - Other specified postprocedural states (ICD-10) H/O toe surgery (04/19/12) ?Z98.890 - Other specified postprocedural states (ICD-10) S/P left knee arthroscopy (04/22/08) ?Z98.890 - Other specified postprocedural states (ICD-10) H/O left breast biopsy (01/02/06) ?Z98.890 - Other specified postprocedural states (ICD-10) H/O lumbosacral spine surgery (04/23/98) ?Z98.890 - Other specified postprocedural states (ICD-10) H/O cervical spine surgery (07/09/97) ?Z98.890 - Other specified postprocedural states (ICD-10) History of surgery on arm (02/04/97) ?Z98.890 - Other specified postprocedural states (ICD-10) History of cervical spinal surgery (04/07/96) ?Z98.890 - Other specified postprocedural states (ICD-10) H/O shoulder surgery (04/07/96) ?Z98.890 - Other specified postprocedural states (ICD-10) H/O dilation and curettage (02/16/1962) ?Z98.890 - Other specified postprocedural states (ICD-10) H/O cervical spine surgery (07/19/95) ?Z98.890 - Other specified postprocedural states (ICD-10) H/O exploratory laparotomy (~1970) ?Z98.890 - Other specified postprocedural states (ICD-10) History of hysterectomy (~1970) ?Z90.710 - Acquired absence of both cervix and uterus (ICD-10) History of colostomy reversal (04/14/15) ?Z98.890 - Other specified postprocedural states (ICD-10) History of colostomy (07/07/14) History of esophagogastroduodenoscopy (EGD) ?Z98.890 - Other specified postprocedural states (ICD-10) History of colonoscopy (07/01/14) ?Z98.890 - Other specified postprocedural states (ICD-10) History of tonsillectomy (~1940) ?Z90.89 - Acquired absence of other organs (ICD-10) History of breast biopsy ?Z98.890 - Other specified postprocedural states (ICD-10) H/O lumpectomy (10/28/14) ?Z98.890 - Other specified postprocedural states (ICD-10) S/P cataract extraction and insertion of intraocular lens (~2006) ?Z98.49 - Cataract extraction status, unspecified eye (ICD-10) ?Z96.1 - Presence of intraocular lens (ICD-10) History of heart artery stent (09/03/18) ?Z95.5 - Presence of coronary angioplasty implant and graft (ICD-10) History of cardiac catheterization (09/03/18) ?Z98.890 - Other specified postprocedural states (ICD-10) History of total hip arthroplasty (10/25/10) ?Z96.649 - Presence of unspecified artificial hip joint (ICD-10) History of arthroplasty of knee (12/09/13) ?Z96.659 - Presence of unspecified artificial knee joint (ICD-10) Family History Other Family history of lung cancer Social History Within the past year, how often did you have a drink containing alcohol: never Score interpretation: A score less than 3 is consistent with normal alcohol consumption. Smoking status: Former smoker Non-prescribed substance use: denies use Previous occupational history: RETIRED Highest level of school completed/degree received: high school graduate Little interest or pleasure in doing things: not at all Feeling down, depressed, or hopeless: not at all Exam Narrative Exam Narrative: Patient is mildly dyspneic at rest. Her heart rate is in the 80s and blood pressure 164/68. Oxygen saturation on room air is 95%. She looks pale but not icteric. HEENT exam is normal to inspection. Neck is supple. Lung sounds are clear to auscultation bilaterally with good air entry. Heart has regular rate and rhythm. Abdomen is protuberant, soft and nontender. Lower extremities are warm and dry. There is mild ankle edema but she does not have unilateral leg swelling or calf tenderness. Speech and mentation are clear and intact. There is no facial asymmetry. She moves all extremities actively. Constitutional Vital Signs, click to edit/add: Last Vital Signs Temp 98.3 F 10/09/24 10:13 Pulse 86 10/09/24 12:28 Resp 18 10/09/24 12:28 BP 164/68 H 10/09/24 12:28 Pulse Ox 95 10/09/24 12:28 O2 Del Method Room Air 10/09/24 11:04 Course Vital Signs Vital signs: Vital Signs Temperature 98.3 F 10/09/24 10:13 Pulse Rate 78 10/09/24 10:13 Respiratory Rate 22 H 10/09/24 10:13 Blood Pressure 184/60 H 10/09/24 10:13 Pulse Oximetry 94 L 10/09/24 10:13 Oxygen Delivery Method Room Air 10/09/24 10:13 Temperature 98.3 F 10/09/24 10:13 Pulse Rate 86 10/09/24 12:28 Respiratory Rate 18 10/09/24 12:28 Blood Pressure 164/68 H 10/09/24 12:28 Pulse Oximetry 95 10/09/24 12:28 Oxygen Delivery Method Room Air 10/09/24 11:04 Medical Decision Making [facility] Narrative Medical decision making narrative: Twelve-lead EKG is interpreted by me and shows sinus rhythm with a rate of 73 beats a minute. The axis is normal. There is nonspecific T wave flattening but no acute ST elevation. There is incomplete right bundle branch block pattern. Patient had an elevated dimer. Her sed rate is also elevated at 120 and will need further evaluation by PCP. CT angiogram of the chest was obtained which shows mild atypical lung infection and findings suggested above esophagitis. There is no pulmonary embolus. Patient is currently on Zithromax day 3 with 2 more days of antibiotics left. I am placing him on Protonix for her esophagitis. We were able to update her 2D echocardiogram that was done in the ER today. She can follow-up with her biometric screener for the results of this echo study. Follow-up as advised at the PCP and she is to return for worsening symptoms. Lab Data Labs: Lab Results 10/09/24 Range/Units 10:47 WBC 12.1 H (4.0-11.0) 10^3/uL RBC 4.02 L (4.20-5.40) 10^6/uL Hgb 12.0 (12.0-16.0) g/dL Hct 36.7 (36.0-48.0) % MCV 91.3 (81.0-99.0) fL MCH 29.9 (26.7-34.0) pg MCHC 32.7 (29.9-35.2) g/dL RDW 12.7 (11.0-15.0) % Plt Count 240 (150-450) 10^3/uL MPV 10.4 (9.5-13.5) fL Neut % (Auto) 81.1 H (43.0-75.0) % Lymph % (Auto) 7.5 L (20.5-60.0) % [place] % (Auto) 8.9 (1.7-12.0) % Eos % (Auto) 1.8 (0.9-7.0) % Baso % (Auto) 0.3 (0.2-2.0) % Neut # (Auto) 9.8 H (1.4-6.5) 10^3/uL Lymph # (Auto) 0.9 L (1.2-3.8) 10^3/uL [place] # (Auto) 1.1 H (0.3-0.8) 10^3/uL Eos # (Auto) 0.2 (0.0-0.7) 10^3/uL Baso # (Auto) 0.0 (0.0-0.1) 10^3/uL Abs Immat Gran (auto) 0.05 H (0.00-0.03) 10^3/uL Imm/Tot Granulo (auto) 0.4 (0.0-0.5) % ESR 120 H (<=30) mm/hr D-Dimer 1.17 H* (<=0.59) mg/L FEU VBG pH 7.429 (7.330-7.430) VBG pCO2 38.8 L (40.0-52.0) mmHg Sodium 148 H (136-145) mmol/L Potassium 4.4 (3.5-5.1) mmol/L Chloride 110 H (98-107) mmol/L Carbon Dioxide 27.5 (21.0-32.0) mmol/L Anion Gap 14.9 BUN 22.0 H (7.0-18.0) mg/dL Creatinine 1.09 H (0.55-1.02) mg/dL Est GFR ( Amer) 58 L (>=60 mL/min/1.73m^2) Est GFR (Non-Af Amer) 48 L (>=60 mL/min/1.73m^2) BUN/Creatinine Ratio 20.2 Glucose 117 H (74-106) mg/dL Calcium 8.7 (8.5-10.1) mg/dL Magnesium 1.9 (1.8-2.4) mg/dL Total Bilirubin 0.5 (0.2-1.0) mg/dL AST 25 (15-37) U/L ALT 28 (14-59) U/L Alkaline Phosphatase 95 (46-116) U/L Troponin I High Sens 8.0 (4.0-51.3) pg/mL NT-Pro-B Natriuret Pep 1102.0 (<=1800.0) pg/mL Total Protein 7.3 (6.4-8.2) g/dL Albumin 3.0 L (3.4-5.0) g/dL Globulin 4.3 g/dL Albumin/Globulin Ratio 0.7 Discharge Plan Discharge Chief Complaint: Shortness of Breath/Dyspnea Clinical Impression: Dyspnea, Atypical pneumonia, Esophagitis Patient Disposition: Home, Self-Care Time of Disposition Decision: 13:26 Condition: Fair Mode of Transportation: Private Vehicle Prescriptions / Home Meds: New pantoprazole [Protonix] 40 mg tablet,delayed release (DR/EC) 40 mg PO DAILY 42 Days Qty: 42 0RF No Action doxazosin 2 mg tablet 4 mg PO DAILY Rx Instructions: HS metoprolol succinate 25 mg tablet extended release 24 hr 12.5 mg PO DAILY isosorbide mononitrate 30 mg tablet extended release 24 hr 30 mg PO DAILY lisinopril 20 mg tablet 20 mg PO BID amlodipine 10 mg tablet 10 mg PO DAILY levothyroxine [Euthyrox] 88 mcg tablet 88 mcg PO DAILY isosorbide mononitrate 60 mg tablet extended release 24 hr 90 mg PO DAILY aspirin [Adult Aspirin Regimen] 81 mg tablet,delayed release (DR/EC) 81 mg PO DAILY Fiber Gummies 2 gram tablet,chewable 5 g PO BID Rx Instructions: 5 mg calcium carbonate-vitamin D3 600 mg-5 mcg (200 unit) tablet 1 tab PO DAILY Rx Instructions: 2000 mg plus Vitamin D Trelegy Ellipta 200-62.5-25 mcg blister with device 1 inh inhalation DAILY atorvastatin 40 mg tablet 40 mg PO QPM temazepam [Restoril] 30 mg capsule 30 mg PO QPM cyanocobalamin (vitamin B-12) 1,000 mcg/mL solution 500 mcg IM .monthly acetaminophen 500 mg capsule 1,000 mg PO Q6H PRN (Reason: pain) albuterol sulfate 90 mcg/actuation HFA aerosol inhaler 2 inh inhalation Q6H PRN (Reason: shortness of breath or wheezing) docusate sodium [Colace] 100 mg capsule 100 mg PO DAILY PRN (Reason: constipation) Print Language: [place] Instructions: Community Acquired Pneumonia (ED), Dyspnea (ED) Additional Instructions: Finish out your current antibiotic. Protonix as directed. Follow-up with your PCP in biometric screener early next week. Return for worsening symptoms. Referrals: Noble Ferguson DO [Primary Care Provider, Internal Medicine] - 1 week Discharge Date/Time: 10/09/24 13:43
--- NOTE | 2024-10-09 10:36 | ECG_ITS ---
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 Measurements Intervals [place] Rate: 73 P: 63 WY: 194 QRS: 64 QRSD: 78 T: 46 QT: 368 QTc: 393 Interpretive Statements 1100 Sinus rhythm 4068 Nonspecific Twave abnormality Abnormal ECG Compared to ECG 10/04/2024 19:50:02 No significant changes Electronically Signed On 10-09-2024 23:24:23 EDT by BALA ROBLES M.D.
[2024-10-09 11:03] LABS: Basophils Percent Auto 0.3 % (0.2-2.0); Eosinophils Absolute Auto 0.2 10^3/uL (0.0-0.7); Eosinophils Percent Auto 1.8 % (0.9-7.0); Hematocrit 36.7 % (36.0-48.0); Immature Granulocytes Abs Auto 0.05 10^3/uL (0.00-0.03); Immature Granulocytes Pct Auto 0.4 % (0.0-0.5); Lymphocytes Absolute Auto 0.9 10^3/uL (1.2-3.8); Lymphocytes Percent Auto 7.5 % (20.5-60.0); Mean Corpuscular HGB Conc 32.7 g/dL (29.9-35.2); Mean Corpuscular Hemoglobin 29.9 pg (26.7-34.0); Mean Corpuscular Volume 91.3 fL (81.0-99.0); Mean Platelet Volume 10.4 fL (9.5-13.5); Monocytes Absolute Auto 1.1 10^3/uL (0.3-0.8); Monocytes Percent Auto 8.9 % (1.7-12.0); Neutrophils Absolute Auto 9.8 10^3/uL (1.4-6.5); Neutrophils Percent Auto 81.1 % (43.0-75.0); Platelet Count 240 10^3/uL (150-450); Red Blood Count 4.02 10^6/uL (4.20-5.40); Red Cell Distribution Width 12.7 % (11.0-15.0); White Blood Count 12.1 10^3/uL (4.0-11.0)
[2024-10-09 11:04] VITALS: O2SAT 93
[2024-10-09 11:05] LABS: PCO2 VBG 38.8 mmHg (40.0-52.0); pH VBG 7.429 (7.330-7.430)
[2024-10-09 11:17] LABS: Erythrocyte Sedimentation Rate 120 mm/hr (<=30)
[2024-10-09 11:34] LABS: Alanine Aminotransferase 28 U/L (14-59); Albumin Globulin Ratio 0.7; Alkaline Phosphatase 95 U/L (46-116); Anion Gap 14.9; Aspartate Amino Transferase 25 U/L (15-37); BUN Creatinine Ratio 20.2; Bilirubin Total 0.5 mg/dL (0.2-1.0); Calcium 8.7 mg/dL (8.5-10.1); Carbon Dioxide 27.5 mmol/L (21.0-32.0); Chloride 110 mmol/L (98-107); Estimated GFR (African America 58 (>=60 mL/min/1.73m^2); Estimated GFR (Non-African Ame 48 (>=60 mL/min/1.73m^2); Globulin 4.3 g/dL; Glucose 117 mg/dL (74-106); Potassium 4.4 mmol/L (3.5-5.1); Sodium 148 mmol/L (136-145); Total Protein 7.3 g/dL (6.4-8.2)
[2024-10-09 11:41] LABS: Magnesium 1.9 mg/dL (1.8-2.4)
[2024-10-09 11:45] LABS: D Dimer 1.17 mg/L FEU (<=0.59)
[2024-10-09] MEDS: 0.9 % SODIUM CHLORIDE 1,000 ML 100 ML IV (12:14)
--- NOTE | 2024-10-09 12:14 | CA_ITS ---
Patient Name: LAWSON GIBBS MR#: [id number] : 1940 Exam Date: 10/09/2024 Ordering Doctor: KRISHNA PENN ECHOCARDIOGRAM REPORT PROCEDURE: CA ECHO DOPPLER COMPLETE INDICATIONS: shortness of breath, congestive heart failure, coronary artery disease COMPARISON: None. DESCRIPTION: COMPLETE ECHOCARDIOGRAM Real-time transthoracic echocardiography with 2D, M-mode, spectral and color flow Doppler performed. QUALITY: Technical quality was adequate. LEFT VENTRICLE: Normal chamber size. Mild concentric left ventricular hypertrophy. Normal systolic function. LV EF: Normal left ventricular ejection fraction, (60-65%). DIASTOLIC: Normal diastolic function. ATRIAL SEPTUM: LEFT ATRIUM: Normal chamber size. RIGHT ATRIUM: Mild dilatation. RIGHT VENTRICLE: Normal chamber size. Normal right ventricular systolic function. TRICUSPID VALVE: Normal mobility and thickness. No stenosis with trivial regurgitation. No evidence of pulmonary hypertension. RVSP 33 mmHg MITRAL VALVE: Normal mobility and thickness. No evidence of mitral valve stenosis. There is no mitral annular calcification. Trivial mitral regurgitation. AORTIC VALVE: Normal trileaflet appearance. No visible sclerosis. Normal leaflet mobility. No evidence of aortic valve stenosis. No aortic regurgitation. AORTIC ROOT: Normal diameter and appearance, measuring 3.4 cm. Ascending aorta is normal in size (3.1 cm). PULMONIC VALVE: Not well visualized. No stenosis. No regurgitation. PERICARDIUM: No evidence of pericardial effusion. IVC: Collapses with inspirations. IVC is normal in size. PLEURA: CONCLUSION: 1. Mild concentric hypertrophy with normal systolic function. LVEF is estimated at 60-65%. 2. Normal right ventricular size and systolic function. 3. Normal diastolic function. 4. No significant valvular dysfunction. 5. Normal right sided pressures. Adult Echocardiography Procedure Report Left Ventricle LVEDD (3.7 - 5.6 cm): 3.49 cm LVESD (2.2 - 4.0 cm): 2.06 cm LVIVS thickness (0.6 - 1.2 cm): 1.44 cm LVPW thickness (0.5 - 1.0 cm): 1.14 cm e': 0.09 m/s E - e': 8.64 LVOT Max Gradient: 4.41 mm[Hg] LVOT Area (cm2): 1.05 m/s Peak Velocity (LVOT): 1.05 m/s Mean Velocity (LVOT): 0.74 m/s LVOT Diameter 1.93 cm Left Atrium LA Volume Index (2D A2C): 28.00 ml/m2 Left Atrium Systolic Dimension: 2.79 cm Mitral Valve MV E to A Ratio: 0.84 Mitral Valve A-Wave Peak Velocity: 0.88 m/s Mitral Valve E-Wave Peak Velocity: 0.74 m/s Right Ventricle Aorta AO Root Diam: 3.37 cm Ascending Ao Diam: 3.11 cm Aortic Valve AoV Area (Peak Martin): 2.42 cm2, 2.42 cm2 AoV Area (VTI): 2.56 cm2, 2.56 cm2 Peak Velocity(Antegrade Flow): 1.26 m/s Peak Gradient(Antegrade Flow): 6.40 mm[Hg] Mean Velocity(Antegrade Flow): 0.83 m/s Mean Gradient(Antegrade Flow): 3.09 mm[Hg] Velocity Time Integral: 29.26 cm Tricuspid Valve Peak Velocity (Regurgitant Flow): 2.76 m/s Pulmonic Valve Peak Velocity: 1.03 m/s Peak Gradient: 4.27 mm[Hg] Right Atrium Right Atrium Systolic Pressure: 65.76 ml, 65.76 ml Dictated by: Juan F Zepeda M.D. on 10/09/2024 at 18:16 Approved by: Juan F Zepeda M.D. on 10/09/2024 at 18:20
[2024-10-09 12:28] VITALS: BP 164/68; PULSE 86; O2SAT 95
== END 2024-10-09 13:43 | disposition home or self-care (01) ==
PROVIDERS: Emergency Provider Emergency Medicine; PCP Internal Medicine
DX: J18.9 Pneumonia, unspecified organism (principal); K20.90 Esophagitis, unspecified without bleeding; R06.02 Shortness of breath; R06.00 Dyspnea, unspecified; Z95.5 Presence of coronary angioplasty implant and graft; Z87.891 Personal history of nicotine dependence; Z85.3 Personal history of malignant neoplasm of breast; Z96.642 Presence of left artificial hip joint; Z90.710 Acquired absence of both cervix and uterus; Z96.659 Presence of unspecified artificial knee joint; R79.89 Other specified abnormal findings of blood chemistry
CPT/HCPCS: 36415; 71275; 80053; 82800; 83735; 83880; 84484; 85025; 85378; 85652; 93005; 93306; 99285; Q9967

== ENCOUNTER 2024-11-14 11:37 | Outpatient (OUT) | payer MEDICARE, SELFPAY ==
[2024-11-14 12:28] LABS: BUN Creatinine Ratio 22.2; Calcium 9.5 mg/dL (8.5-10.1); Chloride 107 mmol/L (98-107); Estimated GFR (African America 58 (>=60 mL/min/1.73m^2); Estimated GFR (Non-African Ame 48 (>=60 mL/min/1.73m^2); Glucose 139 mg/dL (74-106); Sodium 143 mmol/L (136-145)
[2024-11-14 12:44] LABS: Basophils Percent Auto 0.4 % (0.2-2.0); Eosinophils Absolute Auto 0.3 10^3/uL (0.0-0.7); Eosinophils Percent Auto 4.6 % (0.9-7.0); Hematocrit 37.3 % (36.0-48.0); Hemoglobin 12.3 g/dL (12.0-16.0); Immature Granulocytes Abs Auto 0.02 10^3/uL (0.00-0.03); Immature Granulocytes Pct Auto 0.3 % (0.0-0.5); Lymphocytes Absolute Auto 1.2 10^3/uL (1.2-3.8); Lymphocytes Percent Auto 18.2 % (20.5-60.0); Mean Corpuscular Hemoglobin 30.2 pg (26.7-34.0); Mean Corpuscular Volume 91.6 fL (81.0-99.0); Mean Platelet Volume 11.7 fL (9.5-13.5); Monocytes Absolute Auto 0.7 10^3/uL (0.3-0.8); Monocytes Percent Auto 10.4 % (1.7-12.0); Neutrophils Absolute Auto 4.5 10^3/uL (1.4-6.5); Neutrophils Percent Auto 66.1 % (43.0-75.0); Platelet Count 184 10^3/uL (150-450); Red Blood Count 4.07 10^6/uL (4.20-5.40); Red Cell Distribution Width 13.4 % (11.0-15.0); White Blood Count 6.8 10^3/uL (4.0-11.0)
== END 2024-11-14 11:38 | disposition home or self-care (01) ==
LOC: LAB 11:39
PROVIDERS: PCP Internal Medicine; Visit Provider Internal Medicine Interventional Cardiology
DX: R06.02 Shortness of breath (principal); I25.118 Atherosclerotic heart disease of native coronary artery with other forms of angina pectoris
CPT/HCPCS: 36415; 80048; 85025

== ENCOUNTER 2024-12-18 13:19 | Outpatient (OUT) | payer MEDICARE, SELFPAY ==
--- OUTSIDE RECORDS SUMMARY | 2024-06-24 09:00 | XMS_ITS ---
Author Organization [facility] in [place] Address [address] [place] [address] Care Team Providers Care Sander And Buffer Name Role Phone Noble Ferguson DO Primary Care Provider Marleny Moore Unavailable [phone] REASON FOR VISIT Nail Care Encounters Encounter Location Date Provider Diagnosis [facility] (PODIATRY) [address] [place] [address] [place] [address] 06/24/2024 Marleny Adler Plan Of Treatment No Information Progress Notes * Nora PARNELL LDOB:[birth year] (84 yo F)Acc No.[id number]:06/24/2024 UNLOCKED PROGRESS NOTE Nurse Visit Patient: Nora GOTTI Provider: Marina Adler PA-C :1940 A ge:84 Y S ex:Female Date:06/24/2024 Address:[address] [place] [address] [id number] Pcp:Noble Ferguson DO Subjective: * Chief Complaints: * 1 . Nail Care. * Medical History: Objective: * Vitals: Assessment: Plan: * Treatment: * * Electronic signature of Kiara Adler PA-C on 12/18/2024 at 01:22 PM EDT Sign off status: Pending Visit Status: C ANC (Cancelled) * Provider: Marina Adler PA-C Date: 0 06/24/2024 Generated for Printi ng/Faxing/eTransmitting on: 0 12/18/2024 01:22 PM EDT
--- OUTSIDE RECORDS SUMMARY | 2024-09-08 07:14 | XMS_ITS ---
Author Organization [facility] in [place] Address [address] [place] [address] Care Team Providers Care Fishing Tackle Repairer Name Role Phone Marty Noble VILLALTA Primary Care Provider Vickey Dotson Unavailable [phone] REASON FOR VISIT TECHNICAL ADMINISTRATOR-Referral Appt. Encounters Encounter Location Date Provider Diagnosis [facility] [address] [place] [address] 09/08/2024 Vickey Waldrop Plan Of Treatment No Information Progress Notes * Nora GIBBS LDOB:[birth year] (84 yo F)Acc No.[id number]:09/08/2024 Patient: Mary Lou RHOADES Nora Lopes :1940 A ge:84 Y S ex:Female Address:[address] [place] [address], [phone] * true * Date: Generated for Latha wolf/Mariana/eTransmitting on: 0 12/18/2024 01:21 PM EDT
--- OUTSIDE RECORDS SUMMARY | 2024-09-22 07:00 | XMS_ITS ---
Author Organization [facility] Ma in [place] Address [address] [place] [address] Care Team Providers Care Nurse Monitoring Name Role Phone Marty Noble VILLALTA Primary Care Provider Vickey Dotson Unavailable [phone] Allergies Allergen (clinical drug ingredient) Drug/Non Drug Allergy documented on EMR Reaction Allergy Type Onset Date Status Substance with sulfonamide structure and antibacterial mechanism of action (substance) Sulfa Antibiotics hives Drug Allergy Active Penicillin anaphylaxis Drug Allergy Acti ve REASON FOR VISIT COPD/SEEN BY IN 2019 Medications Medication SIG (Take, Route, Frequency, Duration) Notes Start Date End Date Status Trelegy Ellipta 200-62.5-25 MCG/ACT 1 puff Inhalation Once a day Active Temazepam 30 MG 1 capsule at bedtime as needed Orally Once a day Active Metoprolol Succinate ER 25 MG TAKE 1/2 TABLET BY MOUTH DAILY DIRECTED Oral for 30 Days Active Lisinopril 20 MG Oral for 30 Days Active Doxazosin Mesylate 2 MG TAKE 1.5 TABLETS (3 MG) BY MOUTH AT BEDTIME. Oral for 30 Days Active Atorvastatin Calcium 40 MG TAKE 1 TABLET (40 MG) BY MOUTH IN THE MORNING. Oral for 30 Days Active Levothyroxine Sodium 88 MCG TAKE ONE TAB LET BY MOUTH ONCE DAILY ON AN EMPTY STOMACH Oral for 30 Days Active Isosorbide Mononitrate ER 60 MG Oral for 30 Days Active Isosorbide Mononitrate ER 30 MG Oral for 30 Days Active amLODIPine Besylate 10 MG 1 tablet Orall y Once a day Active Albuterol Sulfate HFA 108 (90 Base) MCG/ACT 2 PUFF INHALED EVERY 4-6 HOURS NEEDED FOR SHORTNESS OF BREATH FOR 30 DAYS Inhalation for 30 Days Active Multi Adult Gummies - as directed Orally Active Aspirin 81 MG 1 tablet Orally Once a day Active Social History Tobacco Use: Social History Observation Description Date Details (start date - stop date) Former Smoker NA - NA Tobacco Control (Standard) Question Answer Notes Tobacco use: Former smoker How long has it been since y ou last smoked? Greater than 10 years Additional Findings: Tobacco non-user Ex-heavy c igarette smoker (20-30/day) Problems Problem Type SNOMED Code ICD Code Onset Dates Problem Status W/U Status Risk Notes Problem COPD - Chronic obstructive pulmonary disease (36015976) COPD (chronic obstructive pulmonary disease) (J44.9) Active confirmed Problem Coronary artery disease (37981176) CAD (coronary artery disease) (I25.10) Active confirmed Problem Diastolic heart failure (469637674) Heart failure with preserved left ventricular function (HFpEF) (I50.30) Active confirmed Problem Pernicious anemia (26185592) Pernicious anemia (D51.0) Active confirmed Problem Malignant neoplasm of female breast (943000611) Adenocarcinoma of right breast (C50.911) Active confirmed Problem Ex-tobacco user (finding) (260863233) History of tobacco abuse (Z87.891) Active confirmed Problem Restrictive lung disease (05735366) Restrictive lung disease (J98.4) Active confirmed Vital Signs Temperature 96.8 degrees Fahrenheit 09/23/19 25 Blood pressure systolic 191 mm Hg 09/23/19 25 Blood pressure diastolic 98 mm Hg 025 Heart Rate 65 /min 09/22/2024 Respiratory Rate 18 /min 09/22/2024 Height 61 in 09/22/2024 Weight 187.6 lbs 09/22/2024 BMI 35.44 kg/m2 09/22/2024 Oximetry 94 % 09/22/2024 Encounters Encounter Location Date Provider Diagnosis Pulmonary Medicine [address] [address] 09/22/2024 Vickey Waldrop COPD (chronic obstructive pulmonary disease) J44.9 ; Restrictive lung disease J98.4 ; Adenocarcinoma of right breast C50.911 ; CAD (coronary artery disease) I25.10 ; Pernicious anemia D51.0 ; Heart failure with preserved left ventricular function (HFpEF) I50.30 and History of tobacco abuse Z87.891 Assessments Encounter Date Diagnosis (ICD Code) Assessment Notes Treatment Notes Treatment Clinical Notes Section Notes 09/22/2024 COPD (chronic obstructive pulmonary disease) (ICD-10 - J44.9) History of COPD. Has been on triple inhaled therapy (ICS/LABA/LAMA) for years, with worsening dyspnea over past year. Repeat spirometry showed actual improvement from 2023 compared to 2018 - this argues against COPD as the main cause for her dyspnea. She has developed a concomitant restriction (TLC dropped to ~77%) - there is no evidence of ILD on chest imaging, so this would be best explained by underying cardivascular disease. There is also an issue with cost - she is subsiding on [employer] samples, something I am unable to do (I cannot give patients samples for long-term maintenance). Explained she is already on triple inhaled therapy - anything beyond his would be even more expensive (e.g. Ohtuvayre, Dupixent). I suggested the patient revisit cardiology to see if a repeat cardiac catheterization is a possibility - she has known CAD. Weight loss is another consideration. I recommended pulmonary rehabilitation, but she refused this. Also discussed that she is 84, and she may simply be unable to keep up with activities which she was previously able to perform. Due to inability to afford further treatments and refusal to enrol in pulmonary rehabilitation, I have nothing further to recommend - she may return PRN. 09/22/2024 Restrictive lung disease (ICD-10 - J98.4) TLC has dropped from 96% to 77% from 2018 to 2023. She has only had a 14# weight gain from 05/19/2019 (174#) to today (188#) - a 14# weight gain would not cause this much of a change. DLCO is very low at 32%, but she was unable to perform it up to ATS standards, and previously could not do it at all. The restrictive pattern of low TLC and DLCO is generally seen in either ILD or cardiopulmonary vascular diseases. There is no evidence of ILD or pulmonary fibrosis on chest CTA 11/30/2023, so this would be most consistent with underlying CAD which could be progressing since last cardiac catheterization 5+ years ago. I suggested the patient return to cardiology for an opinion whether or not repeating a cardiac catheterization (even in the presence of unremarkable stress testing) is warranted. 09/22/2024 Adenocarcinoma of right breast (ICD-10 - C50.911) s/p lumpectomy and radiation. No evidence of radiation pneumonitis on chest CTA 11/30/2023. 09/22/2024 CAD (coronary artery disease) (ICD-10 - I25.10) 09/22/2024 Pernicious anemia (ICD-10 - D51.0) 09/22/2024 Heart failure with preserved left ventricular function (HFpEF) (ICD-10 - I50.30) 09/22/2024 History of tobacco abuse (ICD-10 - Z87.891) 1.5ppd x 54 years (81 pack-year history), quit 2007. This patient does not meet current LDCT criteria (e.g. age, time from cessation, # pack-years). Plan Of Treatment Treatment Notes Assessment Notes COPD (chronic obstructive pu lmonary disease) History of COPD. Has been on triple inhaled therapy (ICS/LABA/LAMA) for years, with worsening dyspnea over past year. Repeat spirometry showed actual improvement from 2023 compared to 2018 - this argues against COPD as the main cause for her dyspnea. She has developed a concomitant restriction (TLC dropped to ~77%) - there is no evidence of ILD on chest imaging, so this would be best explained by underying cardivascular disease. There is also an issue with cost - she is subsiding on [employer] samples, something I am unable to do (I cannot give patients samples for long-term maintenance). Explained she is already on triple inhaled therapy - anything beyond his would be even more expensive (e.g. Ohtuvayre, Dupixent). I suggested the patient revisit cardiology to see if a repeat cardiac catheterization is a possibility - she has known CAD. Weight loss is another consideration. I recommended pulmonary rehabilitation, but she refused this. Also discussed that she is 84, and she may simply be unable to keep up with activities which she was previously able to perform. Due to inability to afford further treatments and refusal to enrol in pulmonary rehabilitation, I have nothing further to recommend - she may return PRN. Restrictive lung disease TLC has dropped from 96% to 77% from 2018 to 2023. She has only had a 14# weight gain from 05/19/2019 (174#) to today (188#) - a 14# weight gain would not cause this much of a change. DLCO is very low at 32%, but she was unable to perform it up to ATS standards, and previously could not do it at all. The restrictive pattern of low TLC and DLCO is generally seen in either ILD or cardiopulmonary vascular diseases. There is no evidence of ILD or pulmonary fibrosis on chest CTA 11/30/2023, so this would be most consistent with underlying CAD which could be progressing since last cardiac catheterization 5+ years ago. I suggested the patient return to cardiology for an opinion whether or not repeating a cardiac catheterization (even in the presence of unremarkable stress testing) is warranted. Adenocarcinoma of right breast s/p lumpectomy and radiation. No evidence of radiation pneumonitis on chest CTA 11/30/2023. History of tobacco abuse 1.5ppd x 54 years (81 pack-year history), quit 2007. This patient does not meet current LDCT criteria (e.g. age, time from cessation, # pack-years). Next Appt Details Follow Up: PRN, Reason: Procedure Notes * Category Sub-Category Detail Notes PFT Data: 02/25/2024-FEV1/F VC: 74%-FEV1: 63%-FVC: 62%-BDB97-33%: 70%-Bronchodilator response: None-RV: 84%-T%-DLCO: 32%11/19/2017-FEV1/FVC: 70%-FEV1: 49%-FVC: 51%-GOM09-09%: 41%-Bronchodilator response: Positive-RV: 124%-T%-DLCO: Unable to perform Progress Notes * Nora GIBBS LDOB:[birth year] (84 yo F)Acc No.[id number]:09/22/2024 Follow Up Patient: Nora GOTTI Provider: Tatum Waldrop DO :1940 A ge:84 Y S ex:Female Date:09/22/2024 Address:[address] [place], [place] [id number] Pcp:Noble Ferguson, Check In:10:46 AM ESTCheck O ut:11:22 AM EST Subjective: * Chief Complaints: * C OPD/SEEN BY IN 2019 * HPI: G eneral: RE-ESTABLISHING Patient was last seen by me on 05/19/2019. She was on Trelegy at that time, previously was Symbicort + Spiriva but stopped Spiriva d/t dry mouth. S he was complaining about the cost of medications (Trelegy was $85/month at that time). She cancelled her visit on 11/18/2019 and was lost to F/U. She states since then, Dr. Ferguson has been supplying her with Trelegy samples on a regular basis (24 samples/year???). Her breathing was controlled up until last year. She was admitted to [facility] 11/30/2023 with dyspnea and chest pain. Testing was unremarkable for any acute cardiac issues, though since last seen, she now has been diagnosed with HFpEF. Chest CTA 11/30/2023 only noted bilateral trace pleural effusions. PFT was repeated 02/2024 which showed actual i mprovementin spirometry compared to 11/2017, though TLC has dropped significantly; DLCO was extremely low. MA Intake Comments:. Patient is referred back from for COPD. Patient was seen by in 2019. Patient complains of SOB with exertion. Patient is not using Oxygen/PAP Therapy at this time. Patient states has been filling her Trelegy. Patient reports minimal benefit with Trelegy. P atient reports using her rescue inhaler twice per week. Patient denies a cough or chest pain. Patient is under the care of [facility] Cardiology. Patient had a 6MW performed on 03/05/2024 and a PFT on 02/25/2024 at [facility]. * ROS: G eneral/Constitutional: Fever or sweats d enies. C hange of appetite d enies. C hills d enies. W eight Change d enies. H EENT: Dry mouth d enies. S ore throat d enies. O ral Ulcers d enies. P ost Nasal Drip D enies. C ongestion D enies. H oarseness?Denies. C ardiovascular: Tachycardia d enies. E kwasi D enies. C hest pain d enies. P alpitations d enies. R espiratory: Chest tightness d enies. P leurisy D enies. D yspnea w ith exertion. C ough d enies. H emoptysis d enies. W heezing d enies. G astrointestinal: Acid Reflux/GERD/Heartburn d enies. D ysphagia d enies. M usculoskeletal: Arthralgias/joint pain D enies. S kin: Easy bruising d enies. R edgardo d enies. ? N eurologic: Seizures d enies. T remor d enies. H ematology: Abnormal Bleeding d enies. P sychiatric: Anxiety d enies. * Active Problem List J44.9 COPD (chronic obstru ctive pulmonary disease) Modified On:09/22/2024 Status:confirmed I25.10 CAD (coronary artery disease) Modified On:09/22/2024 Status:confirmed D51.0 Pernicious anemia Modified On:09/22/2024 Status:confirmed J98.4 Restrictive lung dis ease Modified On:09/22/2024U Status:confirmed Z87.891 History of tobacco a buse Modified On:09/22/2024 Status:confirmed C50.911 Adenocarcinoma of ri ght breast Modified On:09/22/2024 Status:confirmed I50.30 Heart failure with p reserved left ventricular function (HFpEF) Modified On:09/22/2024 Status:confirmed * Medical History: * Surgical History: r ight breast I&D 3punch biopsy right breast 09/08/2022right breast lumpectomy 2016colostomy and reversal of colostomy due to bowel obstruction 2016joint replacements -- left knee, left hip, right hip I&D right gluteal coronary angioplasty stent appendectomy cataract removal hysterectomy cervical fusion/laminectomy ventral hernia repair tonsillectomy and adenoidectomy * Hospitalization/Major Diagno stic Procedure: s ee above * Family History: Sue burns(s): stroke. S ister(s): breast cancer, dementia, diagnosed with Unspecified heart disease. S on(s): Lung cancer. F ather: diagnosed with Unspecified heart disease. M other: diagnosed with Colon cancer. * Social History: T obacco Use: T obacco Control (Standard) T obacco use: F ormer smoker H ow long has it been since you last smoked??Greater than 10 years A dditional Findings: Tobacco non-user E x-heavy cigarette smoker (20-30/day) Electronic Cigarette use C urrent user N o LM: Additional Tobacco Questions N umber of Years Pt Smoked: 5 4 ; Quit 2007 N umber of Packs per Day: 1 .5 = 81 pack-years When did you stop smokin. 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 D rugs/Alcohol: D rugs H ave you used drugs other than those for medical reasons in the past 12 months? N o D oes the Patient have a History of Drug Abuse in the Past? N o Caffeine I ntake: 1 -2 cups per day Coffee Do you drink alcohol?: No. Do you smoke marijuana?: Denies. * Medications: T akingAlbuterol Sulfate HFA 108 (90 Base) MCG/ACT Aerosol Solution 2 PUFF INHALED EVERY 4-6 HOURS NEEDED FOR SHORTNESS OF BREATH FOR 30 DAYS Inhalation amLODIPine Besylate 10 MG Tablet 1 tablet Orally Once a day Aspirin 81 MG Tablet Delayed Release 1 tablet Orally Once a day Atorvastatin Calcium 40 MG Tablet TAKE 1 TABLET (40 MG) BY MOUTH IN THE MORNING. Oral Doxazosin Mesylate 2 MG Tablet TAKE 1.5 TABLETS (3 MG) BY MOUTH AT BEDTIME. Oral Isosorbide Mononitrate ER 30 MG Tablet Extended Release 24 Hour Oral Isosorbide Mononitrate ER 60 MG Tablet Extended Release 24 Hour Oral Levothyroxine Sodium 88 MCG Tablet TAKE ONE TABLET BY MOUTH ONCE DAILY ON AN EMPTY STOMACH Oral Lisinopril 20 MG Tablet Oral Metoprolol Succinate ER 25 MG Tablet Extended Release 24 Hour TAKE 1/2 TABLET BY MOUTH DAILY DIRECTED Oral Multi Adult Gummies(Multiple Vitamins-Minerals) - Tablet Chewable as directed Orally Temazepam 30 MG Capsule 1 capsule at bedtime as needed Orally Once a day Trelegy Ellipta(Byaardixyms-Pngvdiuue-Lflmco) 200-62.5-25 MCG/ACT Aerosol Powder Breath Activated 1 puff Inhalation Once a day Taking Albuterol Sulfate HFA 108 (90 Base) MCG/ACT Aerosol Solution 2 PUFF INHALED EVERY 4-6 HOURS NEEDED FOR SHORTNESS OF BREATH FOR 30 DAYS Inhalation Taking amLODIPine Besylate 10 MG Tablet 1 tablet Orally Once a day Taking Aspirin 81 MG Tablet Delayed Release 1 tablet Orally Once a day Taking Atorvastatin Calcium 40 MG Tablet TAKE 1 TABLET (40 MG) BY MOUTH IN THE MORNING. Oral Taking Doxazosin Mesylate 2 MG Tablet TAKE 1.5 TABLETS (3 MG) BY MOUTH AT BEDTIME. Oral Taking Isosorbide Mononitrate ER 30 MG Tablet Extended Release 24 Hour Oral Taking Isosorbide Mononitrate ER 60 MG Tablet Extended Release 24 Hour Oral Taking Levothyroxine Sodium 88 MCG Tablet TAKE ONE TABLET BY MOUTH ONCE DAILY ON AN EMPTY STOMACH Oral Taking Lisinopril 20 MG Tablet Oral Taking Metoprolol Succinate ER 25 MG Tablet Extended Release 24 Hour TAKE 1/2 TABLET BY MOUTH DAILY DIRECTED Oral Taking Multi Adult Gummies(Multiple Vitamins-Minerals) - Tablet Chewable as directed Orally Taking Temazepam 30 MG Capsule 1 capsule at bedtime as needed Orally Once a day Taking Trelegy Ellipta(Dskzbejywqc-Dhlmnkxft-Cpogfd) 200-62.5-25 MCG/ACT Aerosol Powder Breath Activated 1 puff Inhalation Once a day DiscontinuedBumetanide 0.5 MG Tablet 1 tablet Orally Once a day Medication List reviewed and reconciled with the patientDiscontinued Bumetanide 0.5 MG Tablet 1 tablet Orally Once a day Medication List reviewed and reconciled with the patient * Allergies: S ulfa Antibiotics: hivesPenicillin: anaphylaxis Objective: * Vitals: W t:187.6lbs, Ht: 61 in, BP:sittin/98mm Hg, Temp:Forehead:96.8F, HR:65/min, RR:18/min, BMI:35.44Index, Oxygen sat %:Room Air:94%, Ht-cm: 154.94 cm, Wt-k.09 kg. * Examination: E xam: GENERAL APPEARANCE: A ppears stated age. Skin N ormal. Mouth P ink and moist. Trachea M idline. Chest N ormal. Respiratory Normal M ovements, E ffort N ormal. Auscultation D iminished breath sounds. Cardiac R egular rate and rhythm. Gastrointestinal N ormal. Vascular N o edema. Musculoskeletal N ormal posture. Neurological F ocal, intact. Psychiatric A lert and oriented x3. Mentation/Cognition N ormal. Assessment: * Assessment: 1. C OPD (chronic obstructive pulmonary disease) - J44.9 (Primary) 2 . R estrictive lung disease - J98.4 3 . A denocarcinoma of right breast - C50.911 4 . C AD (coronary artery disease) - I25.10 5 . P ernicious anemia - D51.0 6 . H eart failure with preserved left ventricular function (HFpEF) - I50.30 7 . H istory of tobacco abuse - Z87.891 Plan: * Treatment: 2. R estrictive lung disease Notes: TLC has dropped from 96% to 77% from 2017 to 2023. She has only had a 14# weight gain from 05/19/2019 (174#) to today (188#) - a 14# weight gain would not cause this much of a change. DLCO is very low at 32%, but she was unable to perform it up to ATS standards, and previously could not do it at all. The restrictive pattern of low TLC and DLCO is generally seen in either ILD or cardiopulmonary vascular diseases. There is no evidence of ILD or pulmonary fibrosis on chest CTA 11/30/2023, so this would be most consistent with underlying CAD which could be progressing since last cardiac catheterization 5+ years ago. I suggested the patient return to cardiology for an opinion whether or not repeating a cardiac catheterization (even in the presence of unremarkable stress testing) is warranted.? 3. A denocarcinoma of right breast Notes: s/p lumpectomy and radiation. No evidence of radiation pneumonitis on chest CTA 11/30/2023. 4. H istory of tobacco abuse Notes: 1.5ppd x 54 years (81 pack-year history), quit 2007. This patient does not meet current LDCT criteria (e.g. age, time from cessation, # pack-years).? * Procedures: P FT: Data: 02/25/2024 -FEV1/FVC: 74% -FEV1: 63% -FVC: 62% -SQS35-96%: 70% -Bronchodilator response: None -RV: 84% -T% -DLCO: 32% 11/19/2017 -FEV1/FVC: 70% -FEV1: 49% -FVC: 51% -XNU27-99%: 41% -Bronchodilator response: Positive -RV: 124% -T% -DLCO: Unable to perform. * Procedure Codes: * Preventive Medicine: COVID Vaccination: H as patient had COVID Vaccination? COVID Vaccination Y es 03/07/2021 Immunization Status: I ingris 0 02/19/2024. Screenings/Counseling: F ALL RISK SCREENING Fall Risk Assessment: N o falls in the past year Are you afraid of falling? N o T OBACCO ACTION PLAN Patient counselled on the dangers of tobacco use and urged to quit. 0 09/22/2024 Former Education on smoking effects provided?09/22/2024 Former B HI ACTION PLAN Above Normal BMI Follow-up D ietary management education, guidance, and counseling * Follow Up: P RN * * Sign off status: Completed Visit Status: C HK (Check Out) true * Provider: Tatum Waldrop DO Date: 0 09/22/2024 Generated for Latha wolf/Mariana/eTransmitting on: 0 12/18/2024 01:22 PM EDT History and Physical Notes * HPI (History of Present Illness) Category Sub-Category Detail Notes Category Not es General Patient is refe rred back from for COPD. Patient was seen by in 2019. Patient complains of SOB with exertion. Patient is not using Oxygen/PAP Therapy at this time. Patient states has been filling her Trelegy. Patient reports minimal benefit with Trelegy. Patient reports using her rescue inhaler twice per week. Patient denies a cough or chest pain. Patient is under the care of [facility] Cardiology. Patient had a 6MW performed on 03/05/2024 and a PFT on 02/25/2024 at [facility]. Examination Category Sub-Category Detail Notes Category Not es Exam GENERAL APPEARANCE: Appears stated age Skin Normal Mouth [place] and moist Trachea Midline Chest Normal Respiratory Normal Movements, Ef fort Normal Auscultation Diminished breath so unds Cardiac Regular rate and rhy thm Gastrointestinal Normal Vascular No edema Musculoskeletal Normal posture Neurological Focal, intact Psychiatric Alert and oriented x 3 Mentation/Cognition Normal
--- OUTSIDE RECORDS SUMMARY | 2024-12-18 13:21 | XMS_ITS | Encounter Summary ---
Author Organization [facility] Address [address] [place] [address] Care Team Providers Care Tank Washer Name Role Phone Noble Ferguson DO Primary Care Provider [phone] Encounter Details Date Type Department Care Team (Late st Contact Info) Description 06/12/[address] [facility] [address] [facility] [address] [place] [id number] Luis Angel Saucedo MD [address] [facility] [address] [place] [address] Social History Tobacco Use Types Packs/Day Years Used Date Smoking Tobacco: Former Cigarettes Q uit: 2008 Alcohol Use Standard Drinks/Week Comments Not Currently 0 (1 standard drink = 0.6 oz pur e alcohol) Comments Unknown Sex and Gender Information Value Date Recorded Sex Assigned at Not on file Legal Sex Female 7:21 PM EDT Gender Identity Not on file Sexual Orientation Not on file documented as of this encounter Plan of Treatment Not on file documented as of this encounter Visit Diagnoses Not on filedocumented in this encounter Care Teams Tank Washer Relationship Specialty Start Date End Date Noble Ferguson DO PCP - General Internal Medicine 04/16/23 documented as of this encounter
--- OUTSIDE RECORDS SUMMARY | 2024-12-18 13:21 | XMS_ITS | Encounter Summary ---
Author Organization [facility] Address [address] [facility] [place] [address] Care Team Providers Care Social Service Technician Name Role Phone Noble Ferguson DO Primary Care Provider [phone] Encounter Details Date Type Department Care Team (Late st Contact Info) Description 07/02/[address] [address] [facility] [address] [place] [id number] Luis Angel Saucedo MD [address] [facility] [address] [place] [address] Social History Tobacco Use Types [...] on filedocumented in this encounter Care Teams Social Service Technician Relationship Specialty Start Date End Date Noble Ferguson DO PCP - General Internal Medicine 04/16/23 documented as of this encounter
--- OUTSIDE RECORDS SUMMARY | 2024-12-18 13:22 | XMS_ITS | Encounter Summary ---
Author Organization [facility] Address [address] [place] [address] Care Team Providers Care Associate Professor Computer Science Name Role Phone Noble Ferguson DO Primary Care Provider [phone] Reason for Visit * Reason Comments Med Refill Encounter Details Date Type Department Care Team (Late st Contact Info) Description 08/09/2022 Refill [facility] [address] [place] [phone] Juan F Zepeda MD [address] [place] [phone] Coronary artery disease, unspecified vessel or lesion type, unspecified whether angina present, unspecified whether [place] or transplanted heart Social History Tobacco Use Types Packs/Day Years Used Date Smoking Tobacco: Never Assessed Comments Unknown Sex and Gender Information Value Date Recorded Sex Assigned at Female 11/21/2024 11:45 AM EDT Legal Sex Female 12:13 AM EDT Gender Identity Female 11/21/2024 11:45 AM EDT Sexual Orientation Heterosexual or Straight 11/09 11:45 AM EDT documented as of this encounter Plan of Treatment Upcoming Encounters Date Type Department Care Team (Late st Contact Info) Description 12/29/2024 1:00 PM EDT Follow-Up [facility] [address] [place] [phone] Juan F Zepeda MD [address] [place] [address] documented as of this encounter Visit Diagnoses Diagnosis Coronary artery disease, unspecified vessel or lesion type, unspecified whether angina present, unspecified whether [place] or transplanted heart documented in this encounter Care Teams Associate Professor Computer Science Relationship Specialty Start Date End Date Noble Ferguson DO [address] [place] [address] PCP - General 04/10/23 documented as of this encounter
--- OUTSIDE RECORDS SUMMARY | 2024-12-18 13:22 | XMS_ITS | Encounter Summary ---
Author Organization [facility] Address [address] [place] [address] Care Team Providers Care Habilitative Interventionist Name Role Phone Noble Ferguson DO Primary Care Provider [phone] Reason for Visit * Reason Comments Med Refill Encounter Details Date Type Department Care Team (Late st Contact Info) Description 07/04/2023 Refill [facility] [address] [place] [phone] Juan F Zepeda MD [address] [place] [phone] Chest pain, unspecified type Social History Tobacco Use Types Packs/Day Years Used Date Smoking Tobacco: Former Cigarettes Q uit: 2008 Smokeless Tobacco: Never Alcohol Use Standard Drinks/Week Comments Never 0 (1 standard drink = 0.6 oz [...] Info) Description 12/29/2024 1:00 PM EDT Follow-Up [facility] [address] [place] [phone] Juan F Zepeda MD [address] [place] [phone] documented as of this encounter Visit Diagnoses Diagnosis Chest pain, unspecified type documented in this encounter Care Teams Habilitative Interventionist Relationship Specialty Start Date End Date Noble Ferguson DO [address] [place] [phone] PCP - General 04/10/23 documented as of this encounter
--- OUTSIDE RECORDS SUMMARY | 2024-12-18 13:22 | XMS_ITS ---
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 Statin therapy for life. -Follow-up A1c and lipids Former tobacco use 09/26/2024 Restrictive lung disease 09/26/2024 Chronic diastolic congestive heart failure 09/26 Assessment & Plan (11/22/2024 1:44 AM EDT): Not in exacerbation Shortness of breath 09/26/2024 Chest pain 12/31/2023 Disorder of nail 12/31/2023 Heart failure with preserved ejection fraction, borderline, class III 12/31/2023 Lower extremity edema 12/31/2023 Acute on chronic heart failu re with preserved ejection fraction (HFpEF) 11/23/2023 Edema 11/23/2023 History of radiation exposure 11/23/2023 Hypothyroidism 11/23/2023 Assessment & Plan (11/22/2024 1:44 AM EDT): Continue Synthroid Nonhealing surgical wound 11/23/2023 Pernicious anemia 11/23/2023 Insomnia 11/23/2023 Stage 3a chronic kidney disease 11/23/2023 Open wound of right breast 04/18/2023 Hx of heart artery stent 04/11/2023 Arthritis 08/30/2022 04/11/2023 Bowel obstruction 08/30/2022 04/11/2023 Coronary artery disease 08/30/2022 Hyperlipidemia 08/30/2022 04/11/2023 Hypertension 08/30/2022 04/11/2023 Breast cancer 08/30/2022 04/11/2023 Necrotizing fasciitis 11/16/2021 04/11/2023 Dyspnea on exertion 06/20/2019 04/11/2023 Status post percutaneous transluminal coronary a ngioplasty 06/20/2019 04/11/2023 Chronic obstructive lung disease 08/26/2018 04/11/2023 Assessment & Plan (11/22/2024 1:44 AM EDT): - Not in exacerbation, continue home inhalers History of breast cancer 10/19/2015 023 Current Treatment and Therapy Plans No current plan information found. Past Treatment and Therapy Plans No past plan information found. Lifetime Dose Tracking * Chemical Lifetime Dose Automatic Entry Manual Entr y Fluoro Time 26.34 minutes 0 minutes 26.34 minutes Air Kerma 1,712.73 mGy 0 mGy 1,712.73 mGy
--- OUTSIDE RECORDS SUMMARY | 2024-12-18 13:22 | XMS_ITS | Clinical Summary ---
Author Organization [facility] Address [address] [place] [address] Phone Care Team Providers Care Telephone Order Dispatcher Name Role Phone Noble Ferguson DO Primary Care Provider [phone] Social History Tobacco Use Types Packs/Day Years Used Date Smoking Tobacco: Never Assessed Comments Unknown Sex and Gender Information Value Date Recorded Sex Assigned at Not on file Legal Sex Female 10:40 AM EDT Gender Identity Not on file Sexual Orientation Not on file Plan of Treatment Health Maintenance Due Date Last Done Comments Bone Density Scan 1940 Lipid Panel 1940 Medicare Annual Wellness Vis it (AWV) 1940 DTaP/Tdap/Td Vaccines (1 - Tdap) 1960 Pneumococcal Vaccine (1 of 1 - PCV) 1988 Zoster Vaccines (1 of 2) 1988 RSV High Risk: (Elderly (60+ ) or Population) (1 - 1-dose 75+ series) 2013 COVID-19 Vaccine (1 - 2023-2 5 season) 2024 Influenza Vaccine (#1) 2025 HIB Vaccines Aged Out No longer eligi ble based on patient's age to complete this topic HPV Vaccines (No Doses Required) Completed Hepatitis A Vaccines Aged Out No long er eligible based on patient's age to complete this topic Hepatitis B Vaccines Aged Out No long er eligible based on patient's age to complete this topic IPV Vaccines Aged Out No longer eligi ble based on patient's age to complete this topic Meningococcal Vaccine Aged Out No vianey mariela eligible based on patient's age to complete this topic Rotavirus Vaccines Aged Out No longer eligible based on patient's age to complete this topic Insurance MEDICARE PART A AND B [facility] MEDICARE PART A AND B [facility] Member Subscriber Plan / Payer (Ef fective 2023-Present) Name:Nora Parnell Relation to Subscriber:Self Name:Nora Parnell Payer ID:Not on file Group ID:Not on file Type:Not on file Address: [facility] [address] [place] [phone] Care Teams Telephone Order Dispatcher Relationship Specialty Start Date End Date Noble Ferguson DO [address] [place] [address] PCP - General Internal Medicine 12/03/23
--- OUTSIDE RECORDS SUMMARY | 2024-12-18 13:22 | XMS_ITS | Encounter Summary ---
Author Organization [facility] Address [address] [place] [address] Care Team Providers Care Electronic Intelligence Officer Name Role Phone Noble Ferguson DO Primary Care Provider [phone] Encounter Details Date Type Department Care Team (Late st Contact Info) Description 05/17/2023 External Result Encounter [facility] External Department Unsolicited Luis Angel Saucedo MD [address] [address] Social History Tobacco Use Types Packs/Day [...] on file documented as of this encounter Procedures Procedure Name Priority Date/Time Associated Diagnosis Comments ECG 12-LEAD 05/17/2023 11:17 AM EST documented in this encounter Results * ECG 12 lead (05/17/2023 11:17 AM EST) 05/17/2023 11:1 7 AM EST [facility] - 05/18/2023 12:[address] [facility] [address] [address] Electrocardiograph Report Signed Patient: Nora Parnell MR#: [id number] : 1940 Acct:[id number] Age/Sex: 83 / F ADM Date: 05/17/23 Loc: PS Room: Type: REG CLI Attending Dr: Luis Angel Saucedo MD Ordering [...] No significant change was found Confirmed by LARY RECINOS MD, FACC ([id number]) on 05/17/2023 3:19:51 PM Referred By: DIANA Electronically Signed By:LARY RECINOS MD [facility] Transcribed By: MUS Signed By Lary Recinos MD, [facility] 05/17/23 1519 Procedure Note Lary Recinos MD - 05/18/2023 [facility] [address] Electrocardiograph Report Signed Patient: Nora Parnell LMR#: [id number] : 8Acct:[id number] Age/Sex: 83 / FADM Date: 05/17/23 Loc: PS Room:Type: REG CLI Attending Dr: Luis Angel Saucedo MD Ordering [...] No significant change was found Confirmed by LARY RECINOS MD, FACC ([id number]) on 05/17/2023 3:19:51 PM Referred By: DIANA Electronically Signed By:LARY RECINOS [facility] Transcribed By: ANI Signed By Lary Recinos MD, [facility] 05/17/23 2349 us Luis Angel Andrews MD ECG ORDERABLES Final Result Performing Organization Address [facility]/State/[facility] Co de Phone Number [address] [address], documented in this encounter Visit Diagnoses Not on filedocumented in this encounter Care Teams Electronic Intelligence Officer Relationship Specialty Start Date End Date Noble Ferguson DO PCP - General Internal Medicine 04/16/23 documented as of this encounter
--- OUTSIDE RECORDS SUMMARY | 2024-12-18 13:22 | XMS_ITS | Encounter Summary ---
Author Organization [facility] Address [address] [place] [address] Care Team Providers Care Bond Runner Name Role Phone Noble Ferguson DO Primary Care Provider [phone] Reason for Visit * Reason Comments Med Refill Encounter Details Date Type Department Care Team (Late st Contact Info) Description 02/01/2023 Refill [facility] [address] [place] [phone] Juan F Zepeda MD [address] [place] [phone] Primary hypertension Social History Tobacco Use Types Packs/Day Years [...] Info) Description 12/29/2024 1:00 PM EDT Follow-Up [facility] [address] [place] [address] Juan F Zepeda MD [address] [place] [phone] documented as of this encounter Visit Diagnoses Diagnosis Primary hypertension Unspecified essential hypertension documented in this encounter Care Teams Bond Runner Relationship Specialty Start Date End Date Noble Ferguson DO [address] [place] [address] PCP - General 04/10/23 documented as of this encounter
--- OUTSIDE RECORDS SUMMARY | 2024-12-18 13:22 | XMS_ITS | Encounter Summary ---
Author Organization [facility] Address [address] [place] [address] Phone Care Team Providers Care Grain Elevator Motor Starter Name Role Phone Noble Ferguson DO Primary Care Provider [phone] Encounter Details Date Type Department Care Team (Late st Contact Info) Description 11/30/2023 Scanned Document [facility] [address] [place] [phone] Scanning, Generic Provider Social History Tobacco Use Types Packs/Day Years [...] Procedure Name Priority Date/Time Associated Diagnosis Comments ECHOCARDIOGRAM 11/30/2023 documented in this encounter Results * Echocardiogram (11/30/2023) Narrative 11/30/2023 Ordered by an unspecified provider. us Generic Provider Scanning CV ECHO PROCEDURES Fin al Result documented in this encounter Visit Diagnoses Not on filedocumented in this encounter Care Teams Grain Elevator Motor Starter Relationship Specialty Start Date End Date Noble Ferguson DO [address] [place] [address] PCP - General Internal Medicine 12/03/23 documented as of this encounter
--- OUTSIDE RECORDS SUMMARY | 2024-12-18 13:22 | XMS_ITS | Encounter Summary ---
Author Organization [facility] Address [address] [place] [address] Care Team Providers Care Nurse First Assist Name Role Phone Noble Ferguson DO Primary Care Provider Reason for Visit * Reason Comments Med Refill Encounter Details Date Type Department Care Team (Late st Contact Info) Description 01/04/2023 Refill [facility] [address] [place] [phone] Adry Hatfield, COMMERCIAL DRONE SOFTWARE DEVELOPER [address] [place] [phone] Coronary artery disease, unspecified vessel or lesion type, unspecified whether angina present, unspecified whether [place] or transplanted heart Social History Tobacco Use Types Packs/Day Years Used Date Smoking Tobacco: Never Assessed Comments Unknown Sex and Gender Information Value Date Recorded Sex Assigned at Female 11/21/2024 11:45 AM EDT Legal Sex Female 12:13 AM EDT Gender Identity Female 11/21/2024 11:45 AM EDT Sexual Orientation Heterosexual or Straight 11/09 11:45 AM EDT documented as of this encounter Miscellaneous Notes * Telephone Encounter - Radha Gamboa MA - 01/04/2023 3:23 PM EDT Patient needs an appointment documented in this encounter Plan of Treatment Upcoming Encounters Date Type Department Care Team (Late st Contact Info) Description 12/29/2024 1:00 PM EDT Follow-Up [facility] [address] [place] [address] Juan F Zepeda MD [address] [facility] [address] [place] [address] documented as of this encounter Visit Diagnoses Diagnosis Coronary artery disease, unspecified vessel or lesion type, unspecified whether angina present, unspecified whether [place] or transplanted heart documented in this encounter Care Teams Nurse First Assist Relationship Specialty Start Date End Date Noble Ferguson DO [address] [facility] [place] [address] [place] [address] PCP - General 04/10/23 documented as of this encounter
--- OUTSIDE RECORDS SUMMARY | 2024-12-18 13:22 | XMS_ITS | Encounter Summary ---
Author Organization [facility] Address [address] [place] [address] Care Team Providers Care Orchard Manager Name Role Phone Noble Ferguson DO Primary Care Provider [phone] Reason for Visit * Reason Comments Med Refill Encounter Details Date Type Department Care Team (Late st Contact Info) Description 01/29/2023 Refill [facility] [address] [place] [phone] Adry Hatfield, TYRE FITTER [address] [place] [address] Coronary artery disease, unspecified vessel or lesion type, unspecified whether angina present, unspecified whether [place] or transplanted heart Social History Tobacco Use [...] Info) Description 12/29/2024 1:00 PM EDT Follow-Up [facility] [address] [place] [address] Juan F Zepeda MD [address] [facility] [address] [facility] [place] [phone] documented as of this encounter Visit Diagnoses Diagnosis Coronary artery disease, unspecified vessel or lesion type, unspecified whether angina present, unspecified whether [place] or transplanted heart documented in this encounter Care Teams Orchard Manager Relationship Specialty [place] [address] [place] [phone] PCP - General 04/10/23 documented as of this encounter
--- OUTSIDE RECORDS SUMMARY | 2024-12-18 13:22 | XMS_ITS | Clinical Summary ---
Author Organization [facility] Address [address] [place] [address] Care Team Providers Care Didactic Program In Dietetics Director Name Role Phone Noble Ferguson DO Primary Care Provider [phone] Allergies Active Allergy Reactions Criticality Noted Date Comments Penicillins Anaphylaxis,Hives,Ot her,U nknown High 11/12/2014 Sulfa (Sulfonamide Antibiotics) Hives,Other,Rash,Unknown Low 11/12/2014 Medications levothyroxine (Synthroid, Levoxyl) 88 mcg tablet 1 (one) time each day at the same time. Active aspirin 81 mg EC tablet Take 1 tablet by mouth in the morning. Active fluticasone-umec lidin-vilanter 200-62.5-25 mcg blister with device INHALE 1 PUFF ONCE DAILY 08/10/19 23 Active temazepam (Restoril) 30 mg capsule TAKE ONE CAPSULE BY MOUTH ONCE DAILY AT BEDTIME 09/25/19 21 Active atorvastatin (Lipitor) 40 mg tabletIndication s:Coronary artery disease, unspecified vessel or lesion type, unspecified whether angina present, unspecified whether cachil dehe or transplanted heart Take 1 tablet (40 mg) by mouth in the morning. 90 tablet 3 01/28/20 24 025 Active cyanocobalamin (Vitamin B-12) 1,000 mcg/mL oral liquid 1 (one) time. Active isosorbide mononitrate ER (Imdur) 30 mg 24 hr tabletIndication s:Dyspnea on exertion,Coronar y artery disease involving cachil dehe coronary artery of cachil dehe heart without angina pectoris TAKE 1 TABLET (30 MG) BY MOUTH IN THE MORNING. TAKE 60MG +30MG TO EQUAL 90MG. DO NOT CRUSH OR CHEW. 30 tablet 5 07/30/19 25 025 Active lisinopril 20 mg tabletIndication s:Benign hypertensive heart disease with heart failure (CMS/HCC) Take 1 tablet (20 mg) by mouth in the morning and at bedtime. 180 tablet 3 08/28/19 25 026 Active albuterol 90 mcg/actuation inhaler Inhale 1 puff in the morning, afternoon, and at bedtime. 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 98 tablet 11/24/19 25 025 Active doxazosin (Cardura) 4 mg tabletIndication s:Primary hypertension Take 2 tablets (8 mg) by mouth at bedtime. 180 tablet 3 12/17/19 25 026 Active furosemide (Lasix) 20 mg tabletIndication s:Chronic diastolic congestive heart failure (CMS/HCC) Take 1 tablet (20 mg) by mouth in the morning and at bedtime. 180 tablet 3 12/31/19 24 025 Discontinued(St op Taking at Discharge) isosorbide mononitrate ER (Imdur) 60 mg 24 hr tabletIndication s:Chest pain, unspecified type TAKE 1 TABLET (60 MG) BY MOUTH IN THE MORNING. 30 tablet 11 06/26/19 25 025 Discontinued(St op Taking at Discharge) amLODIPine (Norvasc) 10 mg tablet Take 10 mg by mouth in the morning. 025 Discontinued(St op Taking at Discharge) torsemide (Demadex) 20 mg tablet Take 20 mg by mouth in the morning. 11/19/19 24 025 Discontinued(St op Taking at Discharge) doxazosin (Cardura) 4 mg tabletIndication s:Primary hypertension Take 1 tablet (4 mg) by mouth at bedtime. 90 tablet 3 10/24/19 25 025 Discontinued doxazosin (Cardura) 4 mg tabletIndication s:Primary hypertension Take 2 tablets (8 mg) by mouth at bedtime. 60 tablet 11/23/19 25 025 Discontinued(Re order) Active Problems Problem Noted Date Diagnosed Date CAD in cachil dehe artery 11/21/2024 Assessment & Plan (11/22/2024 1:44 [...] inhalers History of breast cancer 10/19/2015 023 Encounters Date Type Department Care Team Description 12/16/[address] 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 11/21/2024 1:30 PM EDT - 11/21/2024 2:30 PM EDT Surgery [facility] Vascular Lab [address] [place] [address] Juan F Zepeda MD Coronary angiography [46621 (CPT )] 11/21/2024 11:47 AM EDT - 11/22/2024 2:43 PM EDT Hospital Encounter [facility] [address] [place] [address] Juan F Zepeda MD Iqbal, Amna, MD Horani, Omar, MD CAD in cachil dehe artery (Primary Dx); 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 [address] [place] [address] Juan F Zepeda MD 11/14/2024 Travel 11/13/2024 Orders Only [facility] Vascular Lab [address] [place] [phone] Domenica Leon RN Hypertension (Primary Dx) 10/23/[address] [facility] [address] [facility] [place] [address] Aura Candelario MA Primary hypertension 10/23/[address] 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 (Primary Dx); Primary hypertension; Shortness of breath; Chronic diastolic congestive heart failure (CMS/HCC); Mixed hyperlipidemia; Status post insertion of drug eluting coronary artery stent from Last 3 Months Family History Medical History Relation Name Comments Hypertension Brother No Known Problems Father No Known Problems Mother Relation Name Status Comments Brother Father Mother Social History Tobacco Use Types Packs/Day Years Used Date Smoking Tobacco: Former Cigarettes Q uit: 2008 Smokeless Tobacco: Never Tobacco Cessation:Counseling Given: Not Answered Alcohol Use Standard Drinks/Week Comments Never 0 (1 standard drink = 0.6 oz pur e alcohol) [facility] Utilities Answer Date Recorded In the past 12 months has e [employer], gas, oil, or water [employer] threatened to shut off services in your home? No 11/21/2024 Humiliation, Afraid, Rape, and Kick questionnair e Answer Date Recorded Within the last year, have y ou been afraid of your partner or ex-partner? No 11/21/2024 Emotionally Abused Not on file 11/21/2024 Physically Abused Not on file 11/21/2024 Sexually Abused Not on file 11/21/2024 Overall Financial Resource Strain (CARDIA) Answe r Date Recorded How hard is it for you to pa y for the very basics like food, housing, medical care, and heating? Somewhat hard 11/21/2024 Transportation Answer Date Recorded In the past 12 months, has l ack of transportation kept you from medical appointments or from getting medications? No 11/21/2024 Lack of Transportation (Non-Medical) Not on file 11/21/2024 Housing Stability Vital Sign Answer Sidney e Recorded In the last 12 months, was t here a time when you were not able to pay the mortgage or rent on time? No 11/21/2024 Number of Times Moved in the Last Year Not on fi le 11/21/2024 At any time in the past 12 m ont, were you homeless or living in a penitentiary (including now)? No 11/21/2024 Hunger Vital Sign Answer Date Recorded Within the past 12 months, y ou worried that your food would run out before you got the money to buy more. Never true 11/22/19 25 Ran Out of Food in the Last Year Not on file 11/21/2024 Comments Unknown Sex and Gender Information Value Date Recorded Sex Assigned at Female 11/21/2024 11:45 AM EDT Legal Sex Female 12:13 AM EDT Gender Identity Female 11/21/2024 11:45 AM EDT Sexual Orientation Heterosexual or Straight 11/09 11:45 AM EDT Last Filed Vital Signs Vital Sign Reading Time Taken Comments Blood Pressure 135/50 11/22/2024 8:00 AM EDT Pulse 55 11/22/2024 8:00 AM EDT Temperature 36.3 C (97.3 F) 11/22/2024 8:00 AM EDT Respiratory Rate 21 11/22/2024 8:00 AM EDT Oxygen Saturation 92% 11/22/2024 8:00 AM EDT Inhaled Oxygen Concentration - - Weight 82.2 kg (181 lb 3.2 oz) 11/22/2024 3:41 A M EDT Height 154.9 cm (5' 1 ) 11/21/2024 8:32 PM EDT Body Mass Index 34.24 11/21/2024 8:32 PM EDT Plan of Treatment Upcoming Encounters Date Type Department Care Team (Late st Contact Info) Description 12/29/2024 1:00 PM EDT Follow-Up [facility] at [facility] [address] [place] [address] Juan F Zepeda MD [address] [facility] [address] [facility] [place] [address] Health Maintenance Due Date Last Done Comments Medicare Annual Wellness (AWV) 1940 Depression Screening 1950 Pneumococcal Vaccine: 50+ Years (1 of 2 - PCV) 1957 Adult Tetanus 1960 Zoster Vaccines (1 of 2) 1988 COVID-19 Vaccine ( season) 2024 03/07/2021, 09/07/2020, 08/16/2020 Influenza Vaccine (#1) 2025 , 03/06/2022, 03/11/2018, Additional history exists Fall Risk Screening 11/22/2025 11/22/2024 HIB Vaccines Aged Out No longer eligi ble based on patient's age to complete this topic HPV Vaccines Aged Out No longer eligi ble based on patient's age to complete this topic IPV Vaccines Aged Out No longer eligi ble based on patient's age to complete this topic Meningococcal B Vaccine Aged Out No l onger eligible based on patient's age to complete this topic Meningococcal Vaccine Aged Out No vianey mariela eligible based on patient's age to complete this topic Rotavirus Vaccines Aged Out No longer eligible based on patient's age to complete this topic Medical Devices Implanted Type Area Optical Lathe Operator Device Identifier Shelf Expiration Date Model / Serial / Lot Stent,Synergy Mr 2.25 X 24 - [id number] Implanted:Qty : 1 on 11/21/2024 by Juan F Zepeda MD at [facility] Drug Eluting Stent Left: Heart [employer] [id number] 2026 [id number] / / [id number] Procedures Procedure Name Priority Date/Time Associated Diagnosis Comments APOLIPOPROTEIN B-100 Routine 11/22/2024 12:08 PM EDT LIPID PANEL Add-On 11/22/2024 4:07 AM EDT CBC Routine 11/22/2024 4:07 AM EDT BASIC METABOLIC PANEL Routine 11/22/2024 4:07 AM EDT ECG 12-LEAD Today 11/21/2024 11:18 PM EDT CBC STAT 11/21/2024 9:05 PM EDT BASIC METABOLIC PANEL STAT 11/21/2024 9:04 PM EDT PERC CORONARY INTERVENTION Routine 11/21/2024 6:24 PM EDT 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 angina pectoris Chronic diastolic congestive heart failure (CMS/HCC) Shortness of breath INSTANT WAVE FREE RATIO (IFR) Routine 11/21/2024 6:24 PM EDT 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 angina pectoris Chronic diastolic congestive heart failure (CMS/HCC) Shortness of breath RIGHT HEART CATH Routine 11/21/2024 6:24 PM EDT 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 angina pectoris Chronic diastolic congestive heart failure (CMS/HCC) Shortness of breath CORONARY ANGIOGRAPHY Routine 11/21/2024 6:24 PM EDT 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 angina pectoris Chronic diastolic congestive heart failure (CMS/HCC) Shortness of breath POCT ACT Routine 11/21/2024 6:23 PM EDT POCT ACT Routine 11/21/2024 6:08 PM EDT POCT ACT Routine 11/21/2024 5:29 PM EDT POCT ACT Routine 11/21/2024 5:22 PM EDT POCT ACT Routine 11/21/2024 5:16 PM EDT POCT HBO2% Routine 11/21/2024 4:41 PM EDT ECG 12-LEAD Routine 11/21/2024 2:09 PM EDT BASIC METABOLIC PANEL Routine 11/14/2024 1:10 PM EDT CBC Routine 11/14/2024 1:10 PM EDT from Last 3 Months Results * (ABNORMAL) Apolipoprotein B-100 (11/22/2024 12:08 PM EDT) [facility] Apolipoprotein B 49(L) 60 - 117 mg/dL 11/23/2024 12:09 PM EDT [facility]) Comment: REFERENCE INTERVAL: Apolipoprotein B A desirable fasting serum Apo B concentration for the prevention of atherosclerotic cardiovascular disease in adults is less than 90 mg/dL. A fasting serum Apo B concentration of 130 mg/dL or greater corresponds to a LDL cholesterol concentration greater than 160 mg/dL and constitutes a risk enhancing factor for atherosclerotic cardiovascular disease in adults. Performed By: [facility] [address] [place] [id number] Marketing Assistant Retail Division: Paulino العراقي MD, PhD CLIA Number: [id number] Blood Venous blood specimen / Unknown Venipuncture / Unknown 11/22/2024 12:08 PM EDT 11/22/2024 12:28 PM EDT Zaina Jeffrey PA-C LAB BLOOD ORDERABLES Final R esult [facility]) [address] [place] [address] * (ABNORMAL) CBC (11/22/2024 4:07 AM EDT) Only the most recent of3 resultswithin the time period is included. [facility] Auto WBC 7.46 4.00 - 10.60 10*3/uL 11/22/2024 4:25 AM EDT [facility] ([facility]) RBC 3.50(L) 3.80 - 5.00 10*6/uL 11/22/2024 4:25 AM EDT [facility] ([facility]) Hemoglobin 10.5(L) 12.0 - 15.0 g/dL 11/22/2024 4:25 AM EDT [facility] ([facility]) Hematocrit 31.8(L) 36.0 - 45.0 % 11/22/2024 4:25 AM EDT [facility] ([facility]) MCV 90.9 82.0 - 98.0 fL 11/22/2024 4:25 AM EDT [facility] ([facility]) MCH 30.0 27.0 - 33.0 pg 11/22/2024 4:25 AM EDT [facility] ([facility]) MCHC 33.0 32.0 - 35.0 g/dL 11/22/2024 4:25 AM EDT [facility] ([facility]) RDW 13.6 11.5 - 15.0 % 11/22/2024 4:25 AM EDT [facility] ([facility]) Platelets 163 150 - 400 10*3/uL 11/22/2024 4:25 AM EDT [facility] ([facility]) Blood Venous blood specimen / Unknown Venipuncture / Unknown 11/22/2024 4:07 AM EDT 11/22/2024 4:18 AM EDT us Jarrell Agosto PA-C LAB BLOOD ORDERABLES Final Res ult [facility]) [address] [place] [address] * (ABNORMAL) Lipid panel (11/22/2024 4:07 AM EDT) [facility] Triglycerides 106 <150 mg/dL 11/22/2024 11:16 AM EDT [facility] ([facility]) Comment: TRIGLYCERIDE REFERENCE RANGE: 20 YEARS AND OLDER CARDIOVASCULAR RISK LESS THAN 150 mg/dL LOW RISK 150 TO 199 mg/dL BORDERLINE RISK 200 mg/dL AND GREATER HIGH RISK Cholesterol 91(L) 120 - 200 mg/dL 11/22/2024 11:16 AM EDT [facility] ([facility]) LDL Calculated 29 0 - 160 mg/dL 11/22/2024 11:16 AM EDT [facility] ([facility]) HDL 41 23 - 92 mg/dL 11/22/2024 11:16 AM EDT [facility] ([facility]) Non HDL Cholesterol 50 11/22/2024 11:16 AM EDT [facility] ([facility]) Total VLDL-C 21 0 - 40 mg/dL 11/22/2024 11:16 AM EDT [facility] ([facility]) Cholesterol/HDL Ratio 2.2 mg/dL 11/22/2024 11:16 AM EDT [facility] ([facility]) Blood Venous blood specimen / Unknown Venipuncture / Unknown 11/22/2024 4:07 AM EDT 11/22/2024 4:17 AM EDT us Zaina CAMPOS-Adrianne LAB BLOOD ORDERABLES Final R esult [facility] ([facility]) [address], [place] [id number] * (ABNORMAL) Basic metabolic panel (11/22/2024 4:07 AM EDT) Only the most recent of3 resultswithin the time period is included. Sodium 141 136 - 145 mmol/L 11/22/2024 4:43 AM EDT [facility] ([facility]) Potassium 4.0 3.5 - 5.1 mmol/L 11/22/2024 4:43 AM EDT [facility] ([facility]) Chloride 109(H) 98 - 107 mmol/L 11/22/2024 4:43 AM EDT [facility] ([facility]) CO2 26 21 - 31 mmol/L 11/22/2024 4:43 AM EDT [facility] ([facility]) BUN 23 7 - 25 mg/dL 11/22/2024 4:43 AM EDT [facility] ([facility]) Creatinine 0.98 0.60 - 1.20 mg/dL 11/22/2024 4:43 AM EDT [facility] ([facility]) Glucose 115(H) 70 - 100 mg/dL 11/22/2024 4:43 AM EDT [facility] ([facility]) Calcium 8.5(L) 8.6 - 10.3 mg/dL 11/22/2024 4:43 AM EDT [facility] ([facility]) Anion Gap 10 7 - 20 mmol/L 11/22/2024 4:43 AM EDT [facility] ([facility]) eGFR 56.2(L) >60.0 mL/min/1. 73m*2 11/22/2024 4:43 AM EDT [facility] ([facility]) Comment:The [facility] s estimated glomerular filtration rate (eGFR) will no longer include consideration of race in its calculation. The National [employer] s eGFR Task Force developed new recommendations for the estimation of the glomerular filtration rate in the [place] They recommend immediate implementation of the new equation refit without the race variable in all laboratories because the calculation does not include race. In addition to not including race in the calculation and reporting, it included diversity in its development, and has acceptable performance characteristics and potential consequences that do not disproportionately affect any one group of individuals. BUN/Creatinine Ratio 23.5 11/09 4:43 AM EDT [facility] ([facility]) Blood Venous blood specimen / Unknown Venipuncture / Unknown 11/22/2024 4:07 AM EDT 11/22/2024 4:17 AM EDT us Jarrell Agosto PA-C LAB BLOOD ORDERABLES Final Res ult [facility] ([facility]) [address] [place] [address] * ECG 12 lead (11/21/2024 11:18 PM EDT) Only the most recent of2 resultswithin the time period is included. Ventricular Rate 59 BPM GE MUSE Atrial Rate 59 BPM GE MUSE UT Interval 184 ms GE MUSE QRS DURATION 92 ms GE MUSE QT Interval 344 ms GE MUSE QTC CALCULATION(BAZE TT) 340 ms GE MUSE P [place] 58 degrees GE MUSE R-[place] 63 degrees GE MUSE T Wave [place] 62 degrees GE MUSE 11/21/2024 11:1 3 PM EDT 11/22/2024 10:20 AM EDT Impressions GE MUSE - 11/22/2024 10:20 AM EDT Sinus bradycardia RSR prime pattern Nonspecific T wave abnormality Abnormal ECG When compared with ECG of 21-NOV-2024 13:38, Nonspecific T wave abnormality now evident in Anterolateral leads QT has shortened Confirmed by MD HUNT EHAB ([id number]) on 11/22/2024 10:20:22 AM Narrative Procedure Note Marilee Hunt MD - 11/22/2024 IMPRESSION: Sinus bradycardia RSR prime pattern Nonspecific T wave abnormality Abnormal ECG When compared with ECG of 21-NOV-2024 13:38, Nonspecific T wave abnormality now evident in Anterolateral leads QT has shortened Confirmed by MD HUNT EHAB ([id number]) on 11/22/2024 10:20:22 AM Amanda Sol MD ECG ORDERABLES Final Result GE MUSE * CORONARY ANGIOGRAPHY, RIGHT HEART CATH, INSTANT WAVE FREE RATIO (IFR), PERC CORONARY INTERVENTION (11/21/2024 6:24 PM EDT) Anatomical Region Laterality Modality Other Narrative 11/21/2024 7:21 PM EDT PROCEDURE PHYSICIAN: Juan F Zepeda MD . Indications: Nora Parnell is a 84 y.o. female With history of coronary disease status post stenting of the RCA in the past. She was evaluated in cardiology clinic repeatedly because of ongoing symptoms of shortness of breath with minimal exertion suggestive of angina. She is on maximal antianginal therapy. She was evaluated by pulmonary and no pulmonary cause of shortness of breath was found. She was referred for cardiac catheterization. Assistants: Dr Diamond Saenz. Dr Aliyah Nolan. Procedure Performed: Bilateral selective coronary angiogram. Right heart catheterization. IFR assessment of the LAD. IFR assessment of the RCA. Successful balloon angioplasty and drug eluting stenting of 80% stenosis in the mid circumflex coronary artery, with reduction of the stenosis to 0% by a Synergy XD 2.25 x 24 mm drug eluting stent. Administration of intracoronary nitroglycerin. Access into the right common femoral artery and common femoral vein under ultrasound guidance. Limited right common femoral angiogram. Deployment of 5F MynxGrip vascular closure device in the right common femoral artery [failed to achieve hemostasis, so manual compression was applied for hemostasis]. Methods: Procedure was explained to the patient with risks and benefits; she signed informed consent. she was brought to the component lab tech in a fasting state. The right groin area was prepped and draped in usual fashion. Micropuncture technique was used under ultrasound guidance for access in the right common femoral artery. Inner cannular angiography was performed followed by upsizing to a 4-Haitian x 11 cm sheath. Micropuncture technique was used under ultrasound guidance for access in the right common femoral vein and a 6-Haitian x 11 cm sheath was placed. A 6-Haitian Lee catheter was used for right heart catheterization and measurement of pressures and calculation of cardiac output using the estimated Patricia method. Lee catheter was removed. Bilateral selective coronary angiography was then performed using 4-Haitian JL4 and JR4 diagnostic catheters. Note that initial advancement of the catheters across the aortoiliac bifurcation required the use of an angled Glidewire. Catheters were removed. The right common femoral arterial sheath was upsized to a 5-Haitian x 11 cm sheath. Heparin was administered intravenously and therapeutic ACT was confirmed during the rest of the procedure. A 5-Haitian JR4 guiding catheter was advanced and used to engage the right coronary ostium. A Chopra Omni pressure wire was advanced and equalization of pressures made outside of the guiding catheter. The wire was then advanced into the distal RCA. Intracoronary nitroglycerin 150 micrograms was administered followed by performance of IFR measurement which was 0.94 indicating a hemodynamically non-significant stenosis. The wire and guiding catheter were retracted. A 5-Haitian XB 3.0 LBT guiding catheter was advanced and used to engage the left coronary ostium. A Chopra Omni pressure wire was advanced and equalization of pressures made outside of the guiding catheter. The wire was then advanced into the distal LAD. Intracoronary nitroglycerin 200 micrograms was administered followed by performance of IFR measurement which was 0.92 indicating a hemodynamically non-significant stenosis. Baseline TAVO flow was 3. A Betterment coronary guide wire was advanced to the distal circumflex coronary artery. The IFR wire was retracted. A NC Emerge 2.0 x 15 mm balloon was advanced and used to performed balloon angioplasty at the site of the stenosis with inflations up to 14 Umair. The balloon was retracted. Angiography was performed. A Synergy XD 2.25 x 24 mm drug-eluting stent was advanced and deployed at 11 Umair across the stenosis with repeated inflations. Intracoronary nitroglycerin was administered followed by angiography which revealed excellent result with reduction of the stenosis to 0%, no evidence of dissection or perforation and TAVO 3 flow in the coronary artery and branches. The guiding catheter and wire were removed. The patient was loaded with clopidogrel 600 mg at the end of the procedure. A 5 Haitian minx crimping press operator device was used to manage the right common femoral arteriotomy however this failed. Therefore hemostasis was achieved by manual compression for both the femoral artery and vein. she tolerated the procedure well and was transferred back to the cardiovascular recovery area. Hemodynamic Data: RA: 3 RV: 37/-3, 7 PA: 36/9 (16) PCWP: 6 CO: 4.13 CI: 2.26 O2 Sat: PA sat: 63%, AO sat: 96% AO: 175/55 (97) RFA: 142/50 (84) Coronary angiography: This is a right-dominant circulation. Left Main: This arises from the left coronary cusp. It bifurcates into left anterior descending and circumflex vessels. This has mild luminal irregularities but no obstructive lesions. Left anterior descending: It is a large vessel. There is a 40% proximal stenosis. A large diagonal branch has 20 to 30% diffuse mid segment stenosis. The mid to distal LAD has diffuse 20% stenosis. The apical LAD has a 50% stenosis. iFR assessment of the LAD was 0.92 indicating nonhemodynamically significant stenosis. Circumflex: This is a non-dominant vessel. It is a large vessel. The proximal segment has mild disease. It gives rise to a large obtuse marginal branch which has minimal luminal irregularities. The mid circumflex after the origin of the obtuse marginal branch has 2 tandem 80% stenoses. Those were reduced to 0% by balloon angioplasty and a drug-eluting stent. The distal circumflex has mild disease. Right coronary artery: This arises from the right coronary cusp. It is a dominant vessel. A previously placed stent in the mid segment is patent. Beyond the stent there is an area of 50% stenosis. The distal RCA has mild disease. iFR assessment was 0.94 indicating nonhemodynamically significant stenosis. Limited right common femoral angiography: This showed access to be in the superficial femoral artery with no obstructive lesions seen in the common femoral artery and its proximal branches. The common femoral bifurcation was high. Impression/Findings: Moderate nonhemodynamically significant stenoses in the LAD and RCA Patent RCA stent Severe 80% stenosis in the mid circumflex reduced to 0% by a Synergy XD drug-eluting stent Normal right heart pressures. Reduced cardiac output and cardiac index. Uncontrolled systemic hypertension. Possible significant right common iliac artery stenosis based on difficulty advancing a J tipped wire across the aortoiliac bifurcation and the presence of significant pressure difference between the central aorta and the right common femoral artery. Plan: Medical therapy for coronary artery disease. Aspirin 81 mg daily for life. Dual antiplatelet therapy with Clopidogrel 75 mg daily for 12 months. Statin therapy for life. Follow up in Cardiology Clinic. Juan F Zepeda MD Study Details 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 angina pectoris [I25.118]Chronic diastolic congestive heart failure (CMS/HCC) [I50.32]Shortness of breath [R06.02] us Juan F Zepeda MD CV CARDIAC CATH PROCEDURES F inal Result * (ABNORMAL) POC Activated Clotting Time (11/21/2024 6:23 PM EDT) Only the most recent of5 resultswithin the time period is included. Pathologist [facility] [place] POCT ACT 295(A) 82 - 152 seconds QC Pass/Fail Passed QC LOT # 8 QC Expiration Date 73,125 Blood Venous blood specimen / Unknown 11/21/2024 6:23 PM EDT Narrative Forest Gonzalez [place] - 11/24/2024 11:43 AM EDT Qc lot [id number]; oper [id number] Juan F Zepeda MD POINT OF CARE TEST ENTER/BHAVIK T ORDERABLES Final Result * (ABNORMAL) POC Hb02% (11/21/2024 4:41 PM EDT) [id number] 63.1(A) 90 - 95 % QC Pass/Fail Passed QC LOT # [id number] QC Expiration Date 73,126 SAMPLESITE nl Blood Venous blood specimen / Unknown 11/21/2024 4:41 PM EDT Narrative Forest Gonzalez, [place] - 11/24/2024 8:05 AM EDT Oper [id number] Juan F Zepeda MD POINT OF CARE TEST ENTER/BHAVIK T ORDERABLES Final Result from Last 3 Months Insurance MEDICARE [facility] Advance Directives * Full Code (Latest Code Status on File) Date Activated Date Inactivated Comments 11/21/2024 9:51 PM 11/22/2024 4:43 PM Care Teams Didactic Program In Dietetics Director Relationship Specialty Start Date End Date Noble Ferguson DO [address] [facility] [place] [address] [place] [id number] PCP - General 04/10/23
--- OUTSIDE RECORDS SUMMARY | 2024-12-18 13:22 | XMS_ITS | Encounter Summary ---
Author Organization [facility] Address [address] [place] [address] Care Team Providers Care Chairman Emeritus Name Role Phone Noble Ferguson DO Primary Care Provider [phone] Reason for Visit * Reason Onset Date Comments Med Refill 12/16/2024 Encounter Details Date Type Department Care Team (Late st Contact Info) Description 12/16/2024 Refill [facility] [address] [place] [address] Aura Candelario MA Primary hypertension Social History Tobacco Use Types Packs/Day Years Used Date Smoking Tobacco: Former Cigarettes Q uit: 2008 Smokeless Tobacco: Never Alcohol Use Standard Drinks/Week Comments Never 0 (1 standard drink = 0.6 oz pur e alcohol) [facility] Utilities Answer Date Recorded In the past 12 months has th e electric, gas, oil, or water company threatened to shut off services in your [...] any time in the past 12 m [facility], were you homeless or living in a intermediate (including now)? No 11/21/2024 Hunger Vital Sign [...] Info) Description 12/29/2024 1:00 PM EDT Follow-Up [facility] [address] [place] [address] Juan F Zepeda MD [address] [facility] [address] [facility] [place] [id number] documented as of this encounter Visit Diagnoses Diagnosis Primary hypertension Unspecified essential hypertension documented in this encounter Care Teams Chairman Emeritus Relationship Specialty Start Date End Date Noble Ferguson DO [address] [facility] [place] [address] PCP - General 04/10/23 documented as of this encounter
--- OUTSIDE RECORDS SUMMARY | 2024-12-18 13:23 | XMS_ITS | Patient Health Record ---
Author Organization [facility] [place] Address [address] [place] [address] Care Team Providers Care Railway Signalling Engineer Name Role Phone Noble Ferguson DO Primary Care Provider Marleny Moore Unavailable [phone] Vickey Waldrop Unavailable [phone] Allergies Allergen (clinical drug ingredient) Drug/Non Drug Allergy documented on EMR Reaction Allergy Type Onset Date Status Substance with sulfonamide structure and antibacterial mechanism of action (substance) Sulfa Antibiotics hives Drug Allergy Active Penicillin anaphylaxis Drug Allergy Acti ve Results Component Value Reference Range Notes ITP Reviewed date:12/04/2024 04:04:56 PM Interpretation: Performing Lab: Notes/Report: Source Facility: [place] [address] Cardiac Rehab Report Signed Patient: NORA GIBBS MR#: [id number] : 1940 Acct:[id number] Age/Sex: 84 / F ADM Date: 12/03/24 Loc: CR Attending Dr: BALA ROBLES Ordering Physician: Vickey Waldrop D.O. Date of Service: 12/03/24 Procedure(s): ITP Accession Number(s): [id number] cc: [facility] Test Date: 2024-12-03 Pat Name: NORA GIBBS Department: Room: - Gender: Female Clay Washer: : 1940 Requested By: Vickey Waldrop Order Number: [id number] Reading MD: Vickey Waldrop Interpretive Statements Okay to proceed with outlined treatment plan. Electronically Signed On 12-04-2024 15:30:39 EDT by Vickey Waldrop Dictated By: Vickey Waldrop D.O. Signed By: 12/04/24153012/04/241530 DD/ 24 TD/TT: [facility] W[facility] Tender: [place] [address] Cardiac Rehab Report Signed Patient: EYAD GIBBS MR#: [id number] : 1940 Acct:[id number] Age/Sex: 84 / F ADM Date: 12/03/24 Loc: CR Attending Dr: BALA ROBLES Ordering Physician: Vickey Waldrop D.O. Date of Service: 12/03/24 Procedure(s): ITP Accession Number(s): [id number] cc: [facility] Test Date: 2024-12-03 Pat Name: NORA LAZO IBIS Department: Room: - Gender: Female Clay Washer: : 1940 Requ ested By: Vickey Waldrop Order Number: [id number] Reading MD: Vickey Waldrop Interpretive Statements Okay to proceed with outlined treatment plan. Electronically Bernadine d On 12-04-2024 15:30:39 EDT by Vickey Waldrop Dictated By: Vickey Waldrop D.O. Signed By: 12/04/24153012/04/241530 DD/ 24 TD/TT: Loom Winder Tender: Reason For Referral No Information Medications Medication SIG (Take, Route, Frequency, Duration) Notes Start Date End Date Status amLODIPine Besylate 10 MG 1 tablet Orall y Once a day Active Albuterol Sulfate HFA 108 (90 Base) MCG/ACT 2 PUFF INHALED EVERY 4-6 HOURS NEEDED FOR SHORTNESS OF BREATH FOR 30 DAYS Inhalation for 30 Days Active Trelegy Ellipta 200-62.5-25 MCG/ACT 1 puff Inhalation Once a day Active Multi Adult Gummies - as directed Orally Active Temazepam 30 MG 1 capsule at bedtime as needed Orally Once a day Active Metoprolol Succinate ER 25 MG TAKE 1/2 TABLET BY MOUTH DAILY DIRECTED Oral for 30 Days Active Doxazosin Mesylate 2 MG TAKE 1.5 TABLETS (3 MG) BY MOUTH AT BEDTIME. Oral for 30 Days Active Atorvastatin Calcium 40 MG TAKE 1 TABLET (40 MG) BY MOUTH IN THE MORNING. Oral for 30 Days Active Aspirin 81 MG 1 tablet Orally Once a day Active Lisinopril 20 MG Oral for 30 Days Active Levothyroxine Sodium 88 MCG TAKE ONE TAB LET BY MOUTH ONCE DAILY ON AN EMPTY STOMACH Oral for 30 Days Active Isosorbide Mononitrate ER 60 MG Oral for 30 Days Active Isosorbide Mononitrate ER 30 MG Oral for 30 Days Active Immunizations Vaccine Route Administration Date Status Comme nts Flu, Fluad (72608) 65 yrs + High Dose Seasonal (1270-7871) Unknown 02/19/2024 Administered SARS-COV-2 (COVID 19 Pfizer 30mcg/0.3mL) Unknown 03/07/2021 Administered Social History Tobacco Use: Social History Observation [...] Problem COPD - Chronic obstructive pulmonary disease (30481999) COPD (chronic obstructive pulmonary disease) (J44.9) Active confirmed Problem Coronary artery disease (14964230) CAD (coronary artery disease) (I25.10) Active confirmed Problem Pernicious anemia (04077270) Pernicious anemia (D51.0) Active confirmed Problem Restrictive lung disease (17862080) Restrictive lung disease (J98.4) Active confirmed Problem Ex-tobacco user (finding) (517675154) History of tobacco abuse (Z87.891) Active confirmed Problem Malignant neoplasm of female breast (570727426) Adenocarcinoma of right breast (C50.911) Active confirmed Problem Diastolic heart failure (451385655) Heart failure with preserved left ventricular function (HFpEF) (I50.30) Active confirmed Vital Signs Heart Rate 65 /min 09/22/2024 Temperature 96.8 degrees Fahrenheit 09/22/2024 Respiratory Rate 18 /min 09/22/2024 Blood pressure diastolic 98 mm Hg 09/22/2024 Oximetry 94 % 09/22/2024 Height 61 in 09/22/2024 Blood pressure systolic 191 mm Hg 09/22/2024 Weight 187.6 lbs 09/22/2024 BMI 35.44 kg/m2 09/22/2024 Encounters Encounter Location Date Provider Diagnosis [facility] [address] [place] [address] 09/22/2024 Vickey Waldrop COPD (chronic obstructive pulmonary disease) J44.9 ; Restrictive lung disease J98.4 ; Adenocarcinoma of right breast C50.911 ; CAD (coronary artery disease) I25.10 ; Pernicious anemia D51.0 ; Heart failure with preserved left ventricular function (HFpEF) I50.30 and History of tobacco abuse Z87.891 [facility] [address] [place] [address] [place] [address] 12/24/2023 Marleny [place] Nail abnormalities L60.9 [facility] [address] [place] [address] [place] [address] 03/24/2024 Marleny [place] Nail abnormalities L60.9 ; Delayed surgical wound healing T81.89XA ; Pain in right toe(s) M79.674 and Pain in left toe(s) M79.675 [facility] [address] [place] [address] 09/08/2024 Vickey Waldrop Assessments Encounter Date Diagnosis (ICD Code) Assessment Notes Treatment Notes Treatment Clinical Notes Section Notes 12/24/2023 Nail abnormalities (ICD-10 - L60.9) 03/24/2024 Nail abnormalities (ICD-10 - L60.9) 03/24/2024 Delayed surgical wound healing (ICD-10 - T81.89XA) 09/22/2024 COPD (chronic obstructive pulmonary disease) (ICD-10 [...] with cost - she is subsiding on Trelegy samples, something I am unable to do [...] of radiation pneumonitis on chest CTA 11/30/2023. 03/24/2024 Pain in right toe(s) (ICD-10 - M79.674) 03/24/2024 Pain in left toe(s) (ICD-10 - M79.675) 09/22/2024 CAD (coronary artery disease) (ICD-10 - I25.10) 09/22/2024 Pernicious anemia (ICD-10 - D51.0) 09/22/2024 Heart failure with preserved left ventricular function (HFpEF) (ICD-10 - I50.30) 09/22/2024 History of tobacco abuse (ICD-10 - Z87.891) 1.5ppd x 54 years (81 pack-year history), quit 2007. This patient does not meet current LDCT criteria (e.g. age, time from cessation, # pack-years). Plan Of Treatment No Information Insurance Providers Payer Name Payer Address Payer Phone Subscriber Number Group Number Insured Name Patient Relationship to Insured Coverage Start Date Coverage End Date [place] [address] [place] [address] [id number] Nora Gibbs Self - patient is the insured 7 [facility] [address] [place] [address] [phone] [id number] Nora Gibbs Self - patient is the insured Medical (General) History Medical History History ICD Code COPD (chronic obstructive pulmonary dise ase) J44.9 CAD (coronary artery disease) I25.10 Heart failure with preserved left ventri cular function (HFpEF) I50.30 Pernicious anemia D51.0 Chronic kidney disease, stage 3a N18.31 Spondylolysis, 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, 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, 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 Vitamin D deficiency E55.9 Osteoporosis M81.0 OA (osteoarthritis) M19.90 HLD (hyperlipidemia) E78.5 Chronic venous insufficiency I87.2 Fibrocystic breast disease N60.19 Irritable bowel syndrome with diarrhea K 58.0 Adenocarcinoma of right breast C50.911 Hypothyroidism E03.9 Diverticulosis K57.90 HTN (hypertension) I10 History of abdominal abscess Z87.898 History of tobacco abuse Z87.891 Restrictive lung disease J98.4 Surgical History Surgery Date(Month/Year) right breast lumpectomy 2016 right breast I&D 01/31/2023 punch biopsy right breast 09/08/2022 colostomy and reversal of colostomy due to bowel obstruction 2016 cervical fusion/laminectomy ventral hernia repair joint replacements -- left knee, left hi p, right hip I&D right gluteal coronary angioplasty stent appendectomy cataract removal hysterectomy tonsillectomy and adenoidectomy Hospitalization History Reason Date(Month/Year) see above
--- NOTE | 2024-12-18 13:48 | PM.WCHP ---
Wound Care H&P: HPI History of Present Illness Narrative: Nora is a pleasant 84-year-old female who presents for routine nail care. She has history of coronary artery disease and peripheral arterial disease. She uses a cane for ambulation. She has a painful left hallux toenail. [facility] Medical History Plantar fasciitis ?M72.2 - Plantar fascial fibromatosis (ICD-10) Skin cancer ?C44.90 - Unspecified malignant neoplasm of skin, unspecified (ICD-10) Wound infection (~2014) ?T14.8XXA - Other injury of unspecified body region, initial encounter (ICD-10) ?L08.9 - Local infection of the skin and subcutaneous tissue, unspecified (ICD-10) Complication of artery associated with surgical procedure (06/01/14) ?I97.89 - Other postprocedural complications and disorders of the circulatory system, not elsewhere classified (ICD-10) Difficult intravenous access ?Z78.9 - Other specified health status (ICD-10) Breast cancer ?C50.919 - Malignant neoplasm of unspecified site of unspecified female breast (ICD-10) Arthritis ?M19.90 - Unspecified osteoarthritis, unspecified site (ICD-10) Anemia ?D64.9 - Anemia, unspecified (ICD-10) Pneumonia ?J18.9 - Pneumonia, unspecified organism (ICD-10) Chronic obstructive pulmonary disease ?J44.9 - Chronic obstructive pulmonary disease, unspecified (ICD-10) Extremity edema ?R60.0 - Localized edema (ICD-10) Dyspnea on exertion ?R06.09 - Other forms of dyspnea (ICD-10) High cholesterol ?E78.00 - Pure hypercholesterolemia, unspecified (ICD-10) Coronary artery disease ?I25.10 - Atherosclerotic heart disease of resighini coronary artery without angina pectoris (ICD-10) Hypertension ?I10 - Essential (primary) hypertension (ICD-10) Hypothyroidism ?E03.9 - Hypothyroidism, unspecified (ICD-10) Postoperative nausea and vomiting ?R11.2 - Nausea with vomiting, unspecified (ICD-10) ?Z98.890 - Other specified postprocedural states (ICD-10) Breast wound ?S21.009A - Unspecified open wound of unspecified breast, initial encounter (ICD-10) Surgical History History of incision and drainage (01/31/23) ?Z98.890 - Other specified postprocedural states (ICD-10) Hx of local excision of skin lesion (10/14/19) ?Z98.890 - Other specified postprocedural states (ICD-10) S/P skin biopsy (09/30/19) ?Z98.890 - Other specified postprocedural states (ICD-10) 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) ?Z96.642 - Presence of left artificial hip joint (ICD-10) H/O colonoscopy (03/31/15) ?Z98.890 - Other specified postprocedural states (ICD-10) H/O exploratory laparotomy (~06/01/14) ?Z98.890 - Other specified postprocedural states (ICD-10) H/O toe surgery (04/19/12) ?Z98.890 - Other specified postprocedural states (ICD-10) S/P left knee arthroscopy (04/22/08) ?Z98.890 - Other specified postprocedural states (ICD-10) H/O left breast biopsy (01/02/06) ?Z98.890 - Other specified postprocedural states (ICD-10) H/O lumbosacral spine surgery (04/23/98) ?Z98.890 - Other specified postprocedural states (ICD-10) H/O cervical spine surgery (07/09/97) ?Z98.890 - Other specified postprocedural states (ICD-10) History of surgery on arm (02/04/97) ?Z98.890 - Other specified postprocedural states (ICD-10) History of cervical spinal surgery (04/07/96) ?Z98.890 - Other specified postprocedural states (ICD-10) H/O shoulder surgery (04/07/96) ?Z98.890 - Other specified postprocedural states (ICD-10) H/O dilation and curettage (02/16/1962) ?Z98.890 - Other specified postprocedural states (ICD-10) H/O cervical spine surgery (07/19/95) ?Z98.890 - Other specified postprocedural states (ICD-10) H/O exploratory laparotomy (~1970) ?Z98.890 - Other specified postprocedural states (ICD-10) History of hysterectomy (~1970) ?Z90.710 - Acquired absence of both cervix and uterus (ICD-10) History of colostomy reversal (04/14/15) ?Z98.890 - Other specified postprocedural states (ICD-10) History of colostomy (07/07/14) History of esophagogastroduodenoscopy (EGD) ?Z98.890 - Other specified postprocedural states (ICD-10) History of colonoscopy (07/01/14) ?Z98.890 - Other specified postprocedural states (ICD-10) History of tonsillectomy (~1940) ?Z90.89 - Acquired absence of other organs (ICD-10) History of breast biopsy ?Z98.890 - Other specified postprocedural states (ICD-10) H/O lumpectomy (10/28/14) ?Z98.890 - Other specified postprocedural states (ICD-10) S/P cataract extraction and insertion of intraocular lens (~2006) ?Z98.49 - Cataract extraction status, unspecified eye (ICD-10) ?Z96.1 - Presence of intraocular lens (ICD-10) History of heart artery stent (09/03/18) ?Z95.5 - Presence of coronary angioplasty implant and graft (ICD-10) History of cardiac catheterization (09/03/18) ?Z98.890 - Other specified postprocedural states (ICD-10) History of total hip arthroplasty (10/25/10) ?Z96.649 - Presence of unspecified artificial hip joint (ICD-10) History of arthroplasty of knee (12/09/13) ?Z96.659 - Presence of unspecified artificial knee joint (ICD-10) Family History Other Family history of lung cancer Social History Within the past year, how often did you have a drink containing alcohol: never Score interpretation: A score less than 3 is consistent with normal alcohol consumption. Smoking status: Former smoker Non-prescribed substance use: denies use Previous occupational history: RETIRED Highest level of school completed/degree received: high school graduate Little interest or pleasure in doing things: not at all Feeling down, depressed, or hopeless: not at all Meds Home Medications and Allergies Home Medications ?Medication ?Instructions ?Recorded ?Confirmed ?Type acetaminophen 500 mg capsule 1,000 mg PO Q6H PRN pain 01/18/23 10/09/24 History albuterol sulfate 90 mcg/actuation 2 inh inhalation Q6H PRN shortness 01/18/23 10/09/24 History aerosol inhaler of breath or wheezing amlodipine 10 mg tablet 10 mg PO DAILY 01/18/23 10/09/24 History aspirin 81 mg tablet,delayed 81 mg PO DAILY 01/18/23 10/09/24 History release (Adult Aspirin Regimen) atorvastatin 40 mg tablet 40 mg PO QPM 01/18/23 10/09/24 History calcium 600 mg (as 1 tab PO DAILY 01/18/23 10/09/24 History carbonate)-vitamin D3 5 mcg (200 unit) tablet cyanocobalamin (vitamin B-12) 500 mcg IM .monthly 01/18/23 10/09/24 History 1,000 mcg/mL injection solution docusate sodium 100 mg capsule 100 mg PO DAILY PRN constipation 01/18/23 10/09/24 History (Colace) fluticasone fur. 200 mcg-umeclid 1 inh inhalation DAILY 01/18/23 10/09/24 History 62.5 mcg-vilant 25 mcg inhalat.powder (Trelegy Ellipta) inulin 2 gram chewable tablet 5 g PO BID 01/18/23 10/09/24 History (Fiber Gummies) isosorbide mononitrate 60 mg 90 mg PO DAILY 01/18/23 10/09/24 History tablet,extended release 24 hr levothyroxine 88 mcg tablet 88 mcg PO DAILY 01/18/23 10/09/24 History (Euthyrox) lisinopril 20 mg tablet 20 mg PO BID 01/18/23 10/09/24 History temazepam 30 mg capsule (Restoril) 30 mg PO QPM 01/18/23 10/09/24 History doxazosin 2 mg tablet 4 mg PO DAILY 10/04/24 10/09/24 History metoprolol succinate 25 mg 12.5 mg PO DAILY 10/04/24 10/09/24 History tablet,extended release 24 hr isosorbide mononitrate 30 mg 30 mg PO DAILY 10/09/24 10/09/24 History tablet,extended release 24 hr pantoprazole 40 mg tablet,delayed 40 mg PO DAILY 6 weeks #42 tabs 10/09/24 Rx release (Protonix) Allergies Allergy/AdvReac Type Severity Reaction Status Date / Time Penicillins Allergy Hives Verified 10/04/24 19:56 Sulfa (Sulfonamide Allergy Rash Verified 10/04/24 19:56 Antibiotics) Exam Narrative: Exam Narrative: Dermatologic: Fungal/mycotic toenails with a spiral left hallux toenail. The left hallux toenail is ingrown on both borders without evidence of paronychia. No ulcerative or preulcerative lesions noted. Skin is dry and shiny. Vascular: PT pulses are 1/4 bilaterally, dorsalis pedis pulses nonpalpable bilaterally. Capillary refill is less than 3 seconds. Superficial varicosities are noted. There is nonpitting edema of the feet and ankles bilaterally. Skin is cool to the touch. Digital hair is absent bilaterally. Neuro: Vibratory sensation intact bilaterally, Achilles deep tendon reflexes 1+ bilaterally, monofilament testing was absent to all 4 tested areas on the right and present in 2/4 areas on the left MSK: Strength 5/5 in all planes, contractures of the lesser toes noted Assessment and Plan Assessment and Plan (1) Nail dystrophy: Plan Routine nail care performed. Follow-up in 3 months Acute Procedures Podiatry Nail Debridement Class B Findings Advanced trophic changes as evidenced by any three of the following: decreased hair growth, nail changes (thickening) and skin texture (thin or shiny) Absent dorsalis pedis pulse: bilateral Class C Findings Claudication: No Temperature changes: Yes Edema: Yes Nail debridement paresthesia (abnormal spontaneous sensations in the feet): No Burning: No Qualifies If: Qualifiers If:: A patient qualifies for nail debridement if they have: 1 class A finding (Q7) 2 class B findings (Q8) OR 1 class B & 2 class C findings in addition to a primary condition (Q9) Nail Procedure Nail Procedure Time out: Yes Nail procedure: other (Sharp debridement of toenails 1 through 10) Number of affected nails: 10 Location (toes): left and right Procedure successful: Yes Patient tolerated procedure: well and no complications Additional comments: Toenails 1 through 10 were sharply debrided with nail nippers without incident
== END 2024-12-18 13:20 | disposition home or self-care (01) ==
LOC: WC 13:20
PROVIDERS: PCP Internal Medicine Interventional Cardiology; Visit Provider Physician Assistant
DX: L60.3 Nail dystrophy (principal); I25.10 Atherosclerotic heart disease of native coronary artery without angina pectoris; I73.9 Peripheral vascular disease, unspecified; B35.1 Tinea unguium; L60.0 Ingrowing nail
CPT/HCPCS: 11721

== ENCOUNTER 2024-12-31 07:13 | Outpatient (RCR) | payer MEDICARE, SELFPAY ==
--- NOTE | 2024-12-03 14:33 | CR1_ITS ---
The [facility] Test Date: 2024-12-03 Pat Name: LAWSON GIBBS Department: Room: - Gender: Female [place] Supervisor: : 1940 Requested By: Vickey Waldrop Order Number: [id number] Chase MD: Vickey Waldrop Interpretive Statements Okay to proceed with outlined treatment plan. Electronically Signed On 12-04-2024 15:30:39 EDT by Vickey Waldrop
--- NOTE | 2024-12-09 14:36 | CR1_ITS ---
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 Order Number: [id number] Chase MD: Vickey Waldrop Interpretive Statements Okay to proceed with outlined treatment plan. Electronically Signed On 12-17-2024 10:13:01 EDT by Vickey Waldrop
--- NOTE | 2024-12-29 11:24 | CR1_ITS ---
[facility] Test Date: 2024-12-29 Pat Name: LAWSON GIBBS Department: Room: - Gender: Female Report Specialist: : 1940 Requested By: KARLY GÓMEZ Order Number: [id number] [place] MD: BALA ROBLES M.D. Interpretive Statements Patient may continue cardiac rehab as outlined in the treatment plan. Electronically Signed On 01-16-2025 10:16:53 EDT by BALA ROBLES M.D.
--- NOTE | 2025-01-26 08:33 | CR1_ITS ---
[facility] Test Date: 2025-01-26 Pat Name: LAWSON GIBBS Department: Room: - Gender: Female Pulling Unit Floorhand: : 1940 Requested By: BALA ROBLES M.D. Order Number: [id number] Chase MD: Amanda Sol Interpretive Statements Session Date: Electronically Signed On 02-06-2025 13:28:04 EDT by Amanda Sol
--- NOTE | 2025-02-11 07:59 | PC.NURSE ---
evelia rosa spoke with patient last week re returning to rehab. she had taken a break due to hip pain short term outreach letter sent today
--- NOTE | 2025-02-25 09:25 | PC.NURSE ---
penitentiary outreach letter sent, patient has until march 13 to return communication or be discharged from the program per the attendance form. We would love to see the patient return and hope to hear from them soon.
--- NOTE | 2025-02-26 09:17 | CR1_ITS ---
[facility] Test Date: 2025-02-26 Pat Name: LAWSON GIBBS Department: Room: - Gender: Female Personal Care Attendant: : 1940 Requested By: BALA ROBLES M.D. Order Number: [id number] Chase MD: BALA ROBLES M.D. Interpretive Statements Patient may continue cardiac rehab as outlined in the treatment plan. Electronically Signed On 02-26-2025 18:18:27 EDT by BALA ROBLSE M.D.
--- NOTE | 2025-03-10 14:22 | CR1_ITS ---
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 Order Number: [id number] [place] MD: BALA ROBLES M.D. Interpretive Statements Electronically Signed On 03-10-2025 20:05:41 EDT by BALA ROBLES M.D.
== END 2025-03-10 14:14 | disposition home or self-care (01) ==
LOC: CR 07:13
PROVIDERS: PCP Internal Medicine Interventional Cardiology; Visit Provider Internal Medicine Interventional Cardiology
DX: Z95.5 Presence of coronary angioplasty implant and graft (principal); I50.9 Heart failure, unspecified
CPT/HCPCS: 93798

== ENCOUNTER 2025-01-27 09:58 | Outpatient (OUT) | payer MEDICARE, SELFPAY ==
--- NOTE | 2025-01-27 | XR_ITS ---
[address] [address] Patient Name: LAWSON GIBBS MRN: [id number] date: 1940 Sex: F Assigned Patient Location: [facility] Current Patient Location: [facility] Accession/Order Number: [id number] Exam Date: 01/27/2025 11:57 Report Date: 01/27/2025 11:59 At the request of: SARAH PRADHAN MD Procedure: XR hip BI w PEL 1V 2 views both hips with single view pelvis plain film COMPARISON: 10/31/2021 HISTORY: Chronic right hip pain. Left hip pain. ACUTE FINDINGS: None DEGENERATIVE CHANGE: Unremarkable SOFT TISSUE FINDINGS: Unremarkable JOINT EFFUSION: None POSTOP CHANGES: Bilateral hip arthroplasties. Adequate hardware. No complication. Pelvic surgical clips BONY MINERALIZATION: Adequate XR/XR hip BI w PEL 1V IMPRESSION: Uncomplicated bilateral hip arthroplasties Impression dictated by: Mahendra Chandler M.D. 01/27/2025 11:59 AM Dictation [facility] Electronically authenticated by: [id number] Y Date: 01/27/2025 11:59
--- OUTSIDE RECORDS SUMMARY | 2025-01-27 10:00 | XMS_ITS | Encounter Summary ---
Author Organization [facility] Address [address] [place] [address] Care Team Providers Care Head Of History Name Role Phone Noble Ferguson DO Primary Care Provider [phone] Reason for Visit * Reason Comments Med Refill Encounter Details Date Type Department Care Team (Late st Contact Info) Description 01/29/[address] [facility] [address] [place] [phone] Adry Hatfield, SALVAGE CLERK [address] [place] [phone] Coronary artery disease, unspecified vessel or lesion type, unspecified whether angina present, unspecified whether [place] or transplanted heart Social History Tobacco Use [...] type, unspecified whether angina present, unspecified whether [place] or transplanted heart documented in this encounter Care Teams Head Of History Relationship Specialty Start Date End Date Noble Ferguson DO [address] [place] [address] [id number] PCP - General 04/10/23 documented as of this encounter
--- OUTSIDE RECORDS SUMMARY | 2025-01-27 10:00 | XMS_ITS | Encounter Summary ---
Author Organization [facility] Address [address] [place] [address] Care Team Providers Care Heel Sewer Name Role Phone Noble Ferguson DO Primary Care Provider [phone] Reason for Visit * Reason Comments Med Refill Encounter Details Date Type Department Care Team (Late st Contact Info) Description 08/09/2022 Refill [facility] [address] [place] [phone] Juan F Zepeda MD [address] [facility] [place] [phone] Coronary artery disease, unspecified vessel or lesion type, unspecified whether angina present, unspecified whether [place] or transplanted heart Social History Tobacco Use [...] type, unspecified whether angina present, unspecified whether [place] or transplanted heart documented in this encounter Care Teams Heel Sewer Relationship Specialty Start Date End Date Noble Ferguson DO [address] [facility] [place] [address] [address] [place] [phone] PCP - General 04/10/23 documented as of this encounter
--- OUTSIDE RECORDS SUMMARY | 2025-01-27 10:00 | XMS_ITS | Encounter Summary ---
Author Organization [employer] Address [facility] [id number] [address] [place] [address] Care Team Providers Care Follow Up Clerk Name Role Phone Noble eFrguson DO Primary Care Provider [phone] Encounter Details Date Type Department Care Team ([facility] st Contact Info) Description 11/16/2021 Orders Only [employer] [address] [place] [address] Transcribe, Orders Support User Pain (Primary Dx) Social History Tobacco Use Types Packs/Day Years Used Date Smoking Tobacco: Former Cigarettes Q uit: 2006 Smokeless Tobacco: Never Alcohol Use Standard Drinks/Week Comments Not Currently 0 (1 standard drink = 0.6 oz pur e alcohol) Childcare Answer Date Recorded Childcare Unknown 11/20/2018 Employment Answer Date Recorded Employment Unknown 11/20/2018 Comments No Sex and Gender Information Value Date Recorded Sex Assigned at Not on file Legal Sex Female 11:52 AM EDT Gender Identity Not on file Sexual Orientation Not on file COVID-19 Exposure Response Date Recorded In the last 10 days, have yo u been in contact with someone who was confirmed or suspected to have Coronavirus/COVID-19? No / Unsure 11/16/2021 1:58 PM EDT documented as of this encounter Mental Status * Question Answer Entry Date Author Overall Cognitive Status WFL 11/18/2021 2:54 PM EDT Shashank Hutchins PT documented in this encounter Plan of Treatment Not on file documented as of this encounter Goals Goal Patient Goal Type Associated Problems Recent Progress Patient-Stated? Author <enter goal here> General Yes Yanna Joe, EXERCISE EQUIPMENT SPECIALIST Note: Evaluation of progress towards goal: discharge home vs SNF. documented as of this encounter Results * CT abdomen and pelvis with contrast (11/15/2021 5:25 PM EDT) us Scanning Provider External IMG CT ORDERABLES Fin al Result * X-ray chest 1 view (11/15/2021 4:10 PM EDT) us Scanning Provider External IMG DIAGNOSTIC IMAGIN G ORDERABLES Final Result documented in this encounter Visit Diagnoses Diagnosis Pain- Primary Generalized pain documented in this encounter Additional Health Concerns Infection Onset Date Last Indicated Resolved Time Enteric Rule-Out 11/20/2021 11/20/2021 11/20/2021 11:06 AM EDT documented as of this encounter Care Teams Follow Up Clerk Relationship Specialty Start Date End Date Noble Ferguson DO [address] [place] [address] PCP - General Internal Medicine 06/11/21 documented as of this encounter
--- OUTSIDE RECORDS SUMMARY | 2025-01-27 10:00 | XMS_ITS | Encounter Summary ---
Author Organization [facility] Address [address] [place] [address] Care Team Providers Care Pineapple Plantation Manager Name Role Phone Noble Ferguson DO Primary Care Provider [phone] Reason for Visit * Reason Comments Med Refill Encounter Details Date Type Department Care Team (Late st Contact Info) Description 01/04/2023 Refill [facility] [address] [place] [phone] Adry Hatfield, INDUSTRIAL WASTE INSPECTOR [address] [place] [phone] Coronary artery disease, unspecified vessel or lesion type, unspecified whether angina present, unspecified whether [place] or transplanted heart Social History Tobacco Use [...] type, unspecified whether angina present, unspecified whether [place] or transplanted heart documented in this encounter Care Teams Pineapple Plantation Manager Relationship Specialty Start Date End Date Noble Ferguson DO [address] [facility] [place] [address] PCP - General 04/10/23 documented as of this encounter
--- OUTSIDE RECORDS SUMMARY | 2025-01-27 10:01 | XMS_ITS | Clinical Summary ---
Author Organization [facility] Address [address] [place] [address] Care Team Providers Care Green Tire Inspector Name Role Phone Noble Ferguson DO Primary Care Provider [phone] Allergies Active Allergy Reactions Criticality Noted Date Comments Penicillins Unknown 11/12/2014 Sulfa (Sulfonamide Antibiotics) Unknown 09/2014 Medications lisinopril (ZESTRIL, PRINIVIL) 20 mg tablet Take 20 mg by mouth once daily. Active albuterol HFA (VENTOLIN HFA) 90 mcg/actuation inhaler Ventolin HFA 90 mcg/actuation aerosol inhaler Active aspirin, enteric coated (ASPIRIN, ENTERIC COATED) 81 mg EC tablet Take 81 mg by mouth q 24 HR. Active atorvastatin (LIPITOR) 40 mg tablet Take 40 mg by mouth once daily. Active amLODIPine (NORVASC) 10 mg tablet Take 10 mg by mouth once daily. Active Levothyroxine 100 mcg cap Take 75 mcg by mouth once daily. Active temazepam (RESTORIL) 30 mg cap Take 30 mg by mouth daily at bedtime. 1 Active ketoconazole (NIZORAL) 2 % shampoo APPLY WASH TO SCALP EVERY OTHER DAY. LET SIT FOR 5 MINUTES BEFORE RINSING. 1 Active fluocinonide (LIDEX) 0.05 % external solution APPLY TO SCALP NEEDED FOR ITCHINESS 1 Active inulin (FIBER GUMMIES ORAL) Take by mouth. A ctive acetaminophen (TYLENOL EXTRA STRENGTH) 500 mg tablet Take 500 mg by mouth every 6 hours as needed. Active budesonide (PULMICORT) 0.5 mg/2 mL nebulizer solution USE 2ML IN NEBULIZER TWICE A DAY 2 Active ipratropium-albu terol (DUONEB) 0.5 mg-3 mg(2.5 mg base)/3 mL nebu USE 1 VIAL IN NEBULIZER EVERY 6 HOURS NEEDED 2 Active CALCIUM ORAL Take 1,200 mg by mouth once daily. Active isosorbide mononitrate ER (IMDUR) 60 mg 24 hr tablet Take 60 mg by mouth once daily. Active Active Problems Problem Noted Date Diagnosed Date History of breast cancer 10/19/2015 Malignant neoplasm of right female breast 2014 Malignant neoplasm of female breast 11/18/2014 Immunizations Immunization Administration Dates Next Due COVID-19 original vaccine, a ge 12+ yr, monovalent (Canvace - PURPLE TOP) 03/07/2021,09/07/2020,08/16/2020 influenza (HD-IIV3) vaccine, age 65+ yr, high dose, trivalent, PF (FLUZONE HIGH-DOSE) 03/27/2017,03/21/2016 influenza (aIIV3) vaccine, a ge 65+ yr, trivalent, PF (FLUAD) 03/11/2018 Social History Tobacco Use Types Packs/Day Years Used Date Smoking Tobacco: Former Cigarettes 1 55 Smokeless Tobacco: Never Alcohol Use Standard Drinks/Week Comments No 0 (1 standard drink = 0.6 oz pur e alcohol) PHQ-2 Answer Date Recorded PHQ-2 score 0 10/19/2021 Area Deprivation Index Answer Date Clarence rded National Score (1-100), lower number is lower ri sk 91 07/05/2022 State Score (1-10), lower number is lower risk N ot on file 07/05/2022 Data from: https://www.neighborhoodatlas.medicine[facility].edu/. Last address used for calculation [address] 07/05/2022 Comments No Sex and Gender Information Value Date Recorded Sex Assigned at Not on file Legal Sex Female 9:14 AM EST Gender Identity Not on file Sexual Orientation Not on file Last Filed Vital Signs Vital Sign Reading Time Taken Comments Blood Pressure 164/52 10/19/2021 12:57 PM EDT Pulse 69 10/19/2021 12:57 PM EDT Temperature 36.5 C (97.7 F) 10/19/2021 12:57 PM EDT Respiratory Rate 18 10/19/2021 12:57 PM EDT Oxygen Saturation 94% 10/19/2021 12:57 PM EDT Inhaled Oxygen Concentration - - Weight 83.3 kg (183 lb 9.6 oz) 10/19/2021 12:57 PM EDT Height 157.5 cm (5' 2.01 ) 10/19/2021 12:57 PM E DT Body Mass Index 33.57 10/19/2021 12:57 PM EDT Plan of Treatment Health Maintenance Due Date Last Done Comments Anxiety Screening 1958 Depression Screening 1958 DTaP,Tdap,Td Vaccine (1 - Tdap) 1957 Pneumococcal Vaccine: 50+ (1 of 1 - PCV) 1988 Shingrix Vaccine (1 of 2) 1988 Bone Density Screening 2003 RSV Vaccine (1 - 1-dose 75+ series) 2013 Diabetes Screening 04/14/2022 04/14/2019, 0 10/17/2017, 04/18/2017, Additional history exists Advance Directive Discussion 06/11/2024 Influenza Vaccine (#1) 2025 8, 03/27/2017, 03/21/2016 Procedures Procedure Name Priority Date/Time Associated Diagnosis Comments BASIC METABOLIC PANEL Routine 04/14/2019 10:54 AM EST 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 The ADA defines fasting as no caloric intake for at least 8 hours. Fasting plasma glucose results between 100 to 125 mg/dL indicate increased risk for diabetes (prediabetes). Fasting plasma glucose results greater than or equal to 126 mg/dL meet the criteria for diagnosis of diabetes. In the absence of unequivocal hyperglycemia, results should be confirmed by repeat testing. In a patient with classic symptoms of hyperglycemia or hyperglycemic crisis, random plasma glucose results greater than or equal to 200 mg/dL meet the criteria for diagnosis of diabetes. Reference: Standards of Medical Care in Diabetes 2016, [place] Diabetes Association. Diabetes Care. 2016.39(Suppl 1). BUN 21 7 - 21 mg/dL 04/14/2019 11:25 AM [facility] Creatinine 0.92 0.58 - 0.96 mg/dL 04/14/2019 11:25 AM [facility] Sodium 142 136 - 144 mmol/L 04/14/2019 11:25 AM [facility] Potassium 4.5 3.7 - 5.1 mmol/L 04/14/2019 11:25 AM [facility] Chloride 107(H) 97 - 105 mmol/L 04/14/2019 11:25 AM [facility] CO2 21(L) 22 - 30 mmol/L 04/14/2019 11:25 AM [facility] Anion Gap 14 9 - 18 mmol/L 04/14/2019 11:25 AM [facility] Calcium 9.7 8.5 - 10.2 mg/dL 04/14/2019 11:25 AM [facility] eGFR- >60 04/14/2019 11:25 AM [facility] eGFR-All Other Races 59 . 04/14/2019 11:25 AM [facility] Comment: eGFR (Estimated GFR) Units of measure: mL/min/1.73 meters squared eGFR is derived from the reexpressed MDRD Study equation using the following parameters: serum creatinine, age, gender and race. The creatinine assay has been calibrated to be traceable to IDMS. An eGFR <60 mL/min/1.73m2 for >3 months is consistent with chronic kidney disease. Refer to KDOQI guidelines for clinical interpretation. In patients with unstable renal function, e.g. those with acute kidney injury, the eGFR may not accurately reflect actual GFR. Blood specimen (specimen) 04/14/2019 10:54 AM EST 04/14/2019 10:56 AM EST Samuel Pepe DO LABORATORY Final Res ult [facility] [place] [address] [place] [address] [facility] [address] [place], [place] from Last 3 Months or Most Recently Relevant to Health Maintenance Insurance [facility] MEDICARE Care Teams Green Tire Inspector Relationship Specialty Start Date End Date Noble Ferguson DO PCP - General Internal Medicine 11/09/14
--- OUTSIDE RECORDS SUMMARY | 2025-01-27 10:01 | XMS_ITS | Encounter Summary ---
Author Organization [facility] Address [address] [place] [address] Care Team Providers Care Audiovisual Technician Name Role Phone Noble Ferguson DO Primary Care Provider [phone] Source Comments In the event this information is protected by the Federal Confidentiality of Alcohol and Drug AbusePatient Records regulations: The Federal rules restrict any use of the information to criminally investigate or prosecute any alcohol or drug abuse patient.[facility] Encounter Details Date Type Department Care Team (Late st Contact Info) Description 06/06/2023 Lab Requisition [facility] [address] [place] [address] Provider, External Social History Tobacco Use Types Packs/Day Years [...] N ot on file 07/05/2022 Data from: https://www.neighborhoodatlas.medicine.[facility].edu/. Last address used for calculation [address] [facility] 07/05/2022 Comments No Sex and Gender Information Value Date Recorded Sex Assigned at Not on file Legal Sex Female 9:14 AM EST Gender Identity Not on file Sexual Orientation Not on file documented as of this encounter Functional Status * Are you deaf or do you have serious difficulty hearing? Answer Date of Assessment Author No 01/12/2015 11:11 AM EDT Marina Moreno * Are you blind or do you have serious difficulty seeing, even when wearing glasses? Answer Date of Assessment Author No 01/12/2015 11:11 AM EDT Marina Moreno * Do you have serious difficulty walking or climbing stairs? Answer Date of Assessment Author Yes 01/12/2015 11:11 AM EDT Marina Moreno * Do you have difficulty dressing or bathing? Answer Date of Assessment Author No 01/12/2015 11:11 AM EDMarina Watts * Because of a physical, mental, or emotional condition, do you have difficulty doing errands alone such as visiting a doctor's office or shopping? Answer Date of Assessment Author No 01/12/2015 11:11 AM Marina Salazar documented as of this encounter Mental Status * Because of a physical, mental, or emotional condition, do you have serious difficulty concentrating, remembering, or making decisions? 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 RUSTY M Beta-Lactamase Neg Performed By: locr [address] [place] [address] Water Operator: Paulino العراقي MD, PhD CLIA Number: [id number] Micro Specimen SPECIMEN FROM BREAST / Unknown 05/28/2023 12:55 PM EST 06/06/2023 4:45 AM EST External Provider LABORATORY Final Result Performing Organization Address [facility] Co de Phone Number [employer] [address] [place] [phone] * (ABNORMAL) ORGANISM BETTYE (05/28/2023 12:55 PM EST) Culture, Organism BETTYE Result Prevotella bergensis(A) MINIMUM INHIBITORY CONCENTRATION ([place]) 06/26/2023 1:46 PM EST [facility] Comment:Susceptibility resul ts have been completed by [employer]. Beta Lactamase Negative 06/26/2023 1:46 PM EST [facility] Micro Specimen SPECIMEN FROM BREAST / Unknown 05/28/2023 12:55 PM EST 06/06/2023 4:45 AM EST External Provider LABORATORY Final Result Performing Organization Address City/[facility]/ZIP Co de Phone Number [facility] [address] * (ABNORMAL) ORGANISM ID ANAEROBE (05/28/2023 12:55 PM EST) Culture, Organism ID Anaerobe Prevotella bergensis(A) 06/08/2023 8:47 AM EST [facility] Micro Specimen SPECIMEN FROM BREAST / Unknown 05/28/2023 12:55 PM EST 06/06/2023 4:45 AM EST Narrative [facility] - 06/08/2023 8:47 AM EST This test was developed and its performance characteristics determined by the [facility]ology [facility] Medicine [place] ([facility]). It has not been cleared or approved by the FDA. -[facility] is regulated under CLIA as qualified to perform high-complexity testing. This test is used for clinical purposes. It should not be regarded as investigational or for research. us External Provider LABORATORY Final Result Performing Organization Address City/State/[facility] Co de Phone Number [facility] [address] documented in this encounter Visit Diagnoses Not on filedocumented in this encounter Care Teams Audiovisual Technician Relationship Specialty Start Date End Date Noble Ferguson DO PCP - General Internal Medicine 11/09/14 documented as of this encounter
--- OUTSIDE RECORDS SUMMARY | 2025-01-27 10:01 | XMS_ITS | Encounter Summary ---
Author Organization [facility] Address [address] [place] [address] Care Team Providers Care Packaging Manager Name Role Phone Noble Ferguson DO Primary Care Provider [phone] Encounter Details Date Type Department Care Team (Late st Contact Info) Description 05/17/2023 External Result Encounter [facility] External Department Unsolicited Luis Angel Saucedo MD [address] [address] Social History Tobacco Use Types [...] AM EST) 05/17/2023 11:1 7 AM EST [facility] - 05/18/2023 12:02 PM EST [facility] Main [address] [address] Electrocardiograph Report Signed Patient: Nora Parnell MR#: [id number] : 1940 Acct:[id number] Age/Sex: 83 / F ADM Date: 05/17/23 [...] By: DIANA Electronically Signed By:LARY RECINOS MD [facility] Transcribed By: MUS Signed By Lary Recinos MD, [facility] 05/17/23 1519 Procedure Note Lary Recinos MD - 05/18/2023 [facility] [place] [address] Electrocardiograph Report Signed Patient: Nora Parnell LMR#: [id number] : 8Acct:[id number] Age/Sex: 83 / FADM Date: 05/17/23 Loc: [...] Referred By: DIANA Electronically Signed By:[facility] Transcribed By: ANI Signed By Lary Recinos MD, [facility] 05/17/23 3089 us Luis Angel Andrews MD ECG ORDERABLES Final Result Performing Organization Address [facility]/State/[facility] Co de Phone Number [address] [address], documented in this encounter Visit Diagnoses Not on filedocumented in this encounter Care Teams Packaging Manager Relationship Specialty Start Date End Date Noble Ferguson DO PCP - General Internal Medicine 04/16/23 documented as of this encounter
--- OUTSIDE RECORDS SUMMARY | 2025-01-27 10:01 | XMS_ITS | Clinical Summary ---
Author Organization [facility] Address [address] [place] [address] Phone Care Team Providers Care Kiln Puller Name Role Phone Noble Ferguson DO Primary Care Provider [phone] Social History Tobacco Use Types Packs/Day Years Used Date Smoking Tobacco: Never Assessed Comments Unknown Sex and Gender Information Value Date Recorded Sex Assigned at Not on file Legal Sex Female 10:40 AM EDT Gender Identity Not on file Sexual Orientation Not on file Plan of Treatment Health Maintenance Due Date Last Done Comments Lipid Panel 1940 Medicare Annual Wellness Vis it (AWV) 1940 DTaP/Tdap/Td Vaccines (1 - Tdap) 1960 Pneumococcal Vaccine (1 of 1 - PCV) 1988 Zoster Vaccines (1 of 2) 1988 Bone Density Scan 2003 RSV High Risk: (Elderly (60+ ) or Population) (1 - 1-dose 75+ series) 2013 COVID-19 Vaccine ( - 2023-2 5 season) 2024 Influenza Vaccine (#1) 2025 HIB Vaccines Aged Out No longer eligi ble based on patient's age to complete this topic HPV Vaccines Aged Out No longer eligi ble based on patient's age to complete this topic Hepatitis A Vaccines Aged Out No long [...] topic Insurance MEDICARE PART A AND B [facility] MEDICARE PART A AND B [facility] Care Teams Kiln Puller Relationship Specialty Start Date End Date Noble Ferguson DO [address] [place] [place] [address] PCP - General Internal Medicine 12/03/23
--- OUTSIDE RECORDS SUMMARY | 2025-01-27 10:01 | XMS_ITS | Clinical Summary ---
Author Organization [facility] Address [address] [place] [address] Care Team Providers Care Door Repairer Bus Name Role Phone Noble Ferguson DO Primary Care Provider [phone] Allergies Active Allergy Reactions Criticality Noted Date Comments Penicillins Anaphylaxis,Hives,Ot her,U nknown High 11/12/2014 Sulfa (Sulfonamide Antibiotics) Hives,Other,Rash,Unknown Low 11/12/2014 Medications levothyroxine (Synthroid, Levoxyl) 88 mcg tablet 1 (one) time each day at the same time. Active aspirin 81 mg EC tablet Take 1 tablet by mouth in the morning. Active fluticasone-umec lidin-vilanter 200-62.5-25 mcg blister with device INHALE 1 PUFF ONCE DAILY 3 Active temazepam (Restoril) 30 mg capsule TAKE ONE CAPSULE BY MOUTH ONCE DAILY AT BEDTIME 1 Active cyanocobalamin (Vitamin B-12) 1,000 mcg/mL oral liquid 1 (one) time. Active lisinopril 20 mg tabletIndication s:Benign hypertensive heart disease with heart failure (CMS/HCC) Take 1 tablet (20 mg) by mouth in the morning and at bedtime. 180 tablet 3 5 08/28/19 26 Active albuterol 90 mcg/actuation inhaler Inhale 1 puff in the morning, afternoon, and at bedtime. Active metoprolol succinate XL (Toprol-XL) 25 mg 24 hr tabletIndication s:Coronary artery disease involving [place] coronary artery of [place] heart without angina pectoris TAKE 1/2 TABLET BY MOUTH DAILY DIRECTED 15 tablet 10 5 Active doxazosin (Cardura) 4 mg tabletIndication s:Primary hypertension Take 2 tablets (8 mg) by mouth at bedtime. 180 tablet 5 12/17/19 26 Active atorvastatin (Lipitor) 40 mg tabletIndication s:Coronary artery disease, unspecified vessel or lesion type, unspecified whether angina present, unspecified whether [place] or transplanted heart TAKE 1 TABLET (40 MG) BY MOUTH IN THE MORNING. 30 tablet 5 12/26/19 26 Active isosorbide mononitrate ER (Imdur) 120 mg 24 hr tabletIndication s:Coronary artery disease involving [place] coronary artery of [place] heart without angina pectoris,Primary hypertension Take 1 tablet (120 mg) by mouth in the morning. Do not crush or chew. 90 tablet 5 12/30/19 26 Active pantoprazole (ProtoNix) 20 mg EC tabletIndication s:Coronary artery disease involving [place] coronary artery of [place] heart without angina pectoris Take 1 tablet (20 mg) by mouth before breakfast. Do not crush, chew, or split. 90 tablet 5 12/30/19 26 Active isosorbide mononitrate ER (Imdur) 30 mg 24 hr tabletIndication s:Chest pain, unspecified type Take 1 tablet (30 mg) by mouth in the morning. Do not crush or chew. To be taken with a 60mg tablet for a total of 90mg daily 90 tablet 5 01/10/20 Active isosorbide mononitrate ER (Imdur) 60 mg 24 hr tabletIndication s:Chest pain, unspecified type Take 1 tablet (60 mg) by mouth in the morning. Do not crush or chew. To be taking w a 30 mg tablet for a total of 90mg daily 90 tablet 5 01/10/20 26 Active clopidogrel (Plavix) 75 mg tabletIndication s:CAD in [place] artery Take 1 tablet (75 mg) by mouth in the morning. 90 tablet 5 01/24/20 26 Active isosorbide mononitrate ER (Imdur) 30 mg 24 hr tabletIndication s:Dyspnea on exertion,Coronar y artery disease involving [place] coronary artery of [place] heart without angina pectoris TAKE 1 TABLET (30 MG) BY MOUTH IN THE MORNING. TAKE 60MG +30MG TO EQUAL 90MG. DO NOT CRUSH OR CHEW. 30 tablet 5 5 12/30/19 25 Discontinu ed(Dose adjustment ) clopidogrel (Plavix) 75 mg tabletIndication s:CAD in [place] artery Take 1 tablet (75 mg) by mouth in the morning for 98 doses. 98 tablet 5 01/24/20 25 Discontinu ed(Reorder ) Active Problems Problem Noted Date Diagnosed Date CAD in [place] artery 11/21/2024 Assessment & Plan (11/22/2024 1:44 [...] Encounters Date Type Department Care Team Description 01/23/[address] [phone] Aura Candelario MA CAD in [place] artery 01/08/[address] [phone] Diana Miller MA 12/29/2024 1:00 PM EDT Follow-Up [address] [phone] Juan F Zepeda MD Coronary artery disease involving [place] coronary artery of [place] heart without angina pectoris (Primary Dx); Primary hypertension; Mixed hyperlipidemia; Status post insertion of drug eluting coronary artery stent; PAD (peripheral artery disease) 12/24/2024 Refill [facility] [address] [place] [address] Adry Hatfield CNP Coronary artery disease, unspecified vessel or lesion type, unspecified whether angina present, unspecified whether [place] or transplanted heart (Primary Dx) 12/16/[address] [phone] Aura Candelario MA Primary hypertension 11/22/2024 Orders Only [facility] [address] [place] [address] Zaina Jeffrey PA-C Hx of heart artery stent (Primary Dx); Coronary artery disease involving [place] coronary artery of [place] heart with other form of angina pectoris 11/21/2024 1:30 PM EDT - 11/21/2024 2:30 PM EDT Surgery [facility] Heart [facility] [address] [facility] [place] [address] Juan F Zepeda MD Coronary angiography [[id number] (CPT )] 11/21/2024 11:47 AM EDT - 11/22/2024 2:43 PM EDT Hospital Encounter [facility] [address] [place] [address] Juan F Zepeda MD Iqbal, Amna, MD Horani, Omar, MD CAD in [place] artery (Primary Dx); Coronary artery disease involving [place] coronary artery of [place] heart with other form of angina pectoris; Chronic diastolic congestive heart failure (CMS/HCC); Shortness of breath; Benign hypertensive heart disease with heart failure (CMS/HCC); Dyspnea on exertion; Coronary artery disease involving [place] coronary artery of [place] heart without angina pectoris; Primary hypertension Discharge Disposition: Home or Self Care () 11/21/2024 Travel 11/14/2024 Orders Only [facility] [place] [address] [place] [address] Juan F Zepeda MD 11/14/2024 Travel 11/13/2024 Orders Only [facility] [address] [place] [address] Domenica Leon, RN Hypertension (Primary Dx) from Last 3 Months Family History Medical History Relation Name Comments Hypertension Brother No Known Problems Father No Known Problems Mother Relation Name Status Comments Brother Father Mother Social History Tobacco Use Types Packs/Day Years Used Date Smoking Tobacco: Former Cigarettes Q uit: 2007 Smokeless Tobacco: Never Tobacco Cessation:Counseling Given: Not Answered Alcohol Use Standard Drinks/Week Comments Never 0 (1 standard drink = 0.6 oz pur e alcohol) [facility] Utilities Answer Date Recorded In the [...] any time in the past [address] [facility], were you homeless or living in a custodial (including now)? No 11/21/2024 Hunger Vital Sign [...] Sign Reading Time Taken Comments Blood Pressure 152/64 12/29/2024 1:09 PM EDT Pulse 53 12/29/2024 1:09 PM EDT Temperature 36.3 C (97.3 F) 11/22/2024 8:00 AM EDT Respiratory Rate 21 11/22/2024 8:00 AM EDT Oxygen Saturation 95% 12/29/2024 1:09 PM EDT Inhaled Oxygen Concentration - - Weight 81.6 kg (180 lb) 12/29/2024 1:09 PM EDT Height 154.9 cm (5' 1 ) 12/29/2024 1:09 PM EDT Body Mass Index 34.01 12/29/2024 1:09 PM EDT Plan of Treatment Health Maintenance Due Date Last Done Comments Medicare Annual Wellness (AWV) 1938 Depression Screening 1950 Pneumococcal Vaccine: 50+ Years (1 of 2 - PCV) 1957 Adult Tetanus 1960 Zoster Vaccines (1 of 2) 1988 COVID-19 Vaccine ( - season) 2024 03/07/2021, 09/07/2020, 08/16/2020 Influenza Vaccine [...] this topic Medical Devices Implanted Type Area Automatic Door Mechanic Device Identifier Shelf Expiration Date Model / Serial / Lot Stent,Synergy Mr 2.25 X 24 - [id number] Implanted:Qty : 1 on 11/21/2024 by Juan F Zepeda MD at [facility] Drug Eluting Stent Left: Heart Sp[employer] [id number] 2026 [id number] / / [id number] Procedures Procedure Name Priority Date/Time Associated Diagnosis [...] 6:24 PM EDT Coronary artery disease involving [place] coronary artery of [place] heart with other form of angina pectoris Chronic diastolic congestive heart failure (CMS/HCC) Shortness of breath INSTANT WAVE FREE RATIO (IFR) Routine 11/21/2024 6:24 PM EDT Coronary artery disease involving [place] coronary artery of [place] heart with other form of angina pectoris Chronic diastolic congestive heart failure (CMS/HCC) Shortness of breath RIGHT HEART CATH Routine 11/21/2024 6:24 PM EDT Coronary artery disease involving [place] coronary artery of [place] heart with other form of angina pectoris Chronic diastolic congestive heart failure (CMS/HCC) Shortness of breath CORONARY ANGIOGRAPHY Routine 11/21/2024 6:24 PM EDT Coronary artery disease involving [place] coronary artery of [place] heart with other form of angina pectoris [...] (ABNORMAL) Apolipoprotein B-100 (11/22/2024 12:08 PM EDT) [facility] Apolipoprotein B 49(L) 60 - 117 mg/dL 11/23/2024 12:09 PM EDT [facility] ([place]) Comment: REFERENCE INTERVAL: Apolipoprotein B A desirable fasting serum Apo B concentration for the prevention of atherosclerotic cardiovascular disease in adults is less than 90 mg/dL. A fasting serum Apo B concentration of 130 mg/dL or greater corresponds to a LDL cholesterol concentration greater than 160 mg/dL and constitutes a risk enhancing factor for atherosclerotic cardiovascular disease in adults. Performed By: [email or web address] [address] [place] [address] Tool Planer Set Up Operator: Paulino العراقي MD, PhD CLIA Number: [id number] Blood Venous blood specimen / Unknown Venipuncture / Unknown 11/22/2024 12:08 PM EDT 11/22/2024 12:28 PM EDT Zaina Jeffrey PA-C LAB BLOOD ORDERABLES Final R esult [facility] [employer]) [address] [place] [address] * (ABNORMAL) CBC (11/22/2024 4:07 AM EDT) Only the most recent of3 resultswithin the time period is included. Pathologist [facility] Auto WBC 7.46 4.00 - 10.60 10*3/uL 11/22/2024 4:25 AM EDT [facility] ([place]) RBC 3.50(L) 3.80 - 5.00 10*6/uL 11/22/2024 4:25 AM EDT [facility] ([facility] Hemoglobin 10.5(L) 12.0 - 15.0 g/dL 11/22/2024 4:25 AM EDT [facility] ([facility] Hematocrit 31.8(L) 36.0 - 45.0 % 11/22/2024 4:25 AM EDT [facility] ([facility] MCV 90.9 82.0 - 98.0 fL 11/22/2024 4:25 AM EDT [facility] ([facility] MCH 30.0 27.0 - 33.0 pg 11/22/2024 4:25 AM EDT [facility] ([facility] MCHC 33.0 32.0 - 35.0 g/dL 11/22/2024 4:25 AM EDT [facility] ([facility] RDW 13.6 11.5 - 15.0 % 11/22/2024 4:25 AM EDT [facility] ([facility] Platelets 163 150 - 400 10*3/uL 11/22/2024 4:25 AM EDT [facility] ([facility] Blood Venous blood specimen / Unknown Venipuncture / Unknown 11/22/2024 4:07 AM EDT 11/22/2024 4:18 AM EDT us Jarrell Agosto PA-C LAB BLOOD ORDERABLES Final Res ult [facility] ([facility] [address] [place], [place] [id number] * (ABNORMAL) Lipid panel (11/22/2024 4:07 AM EDT) Triglycerides 106 <150 mg/dL 11/22/2024 11:16 AM EDT [facility] ([facility] Comment: TRIGLYCERIDE REFERENCE RANGE: 20 YEARS AND OLDER CARDIOVASCULAR RISK LESS THAN 150 mg/dL LOW RISK 150 TO 199 mg/dL BORDERLINE RISK 200 mg/dL AND GREATER HIGH RISK Cholesterol 91(L) 120 - 200 mg/dL 11/22/2024 11:16 AM EDT [facility] ([facility] LDL Calculated 29 0 - 160 mg/dL 11/22/2024 11:16 AM EDT [facility] ([facility] HDL 41 23 - 92 mg/dL 11/22/2024 11:16 AM EDT [facility] ([facility] Non HDL Cholesterol 50 11/22/2024 11:16 AM EDT [facility] ([facility] Total VLDL-C 21 0 - 40 mg/dL 11/22/2024 11:16 AM EDT [facility] ([facility] Cholesterol/HDL Ratio 2.2 mg/dL 11/22/2024 11:16 AM EDT [facility] ([facility] Blood Venous blood specimen / Unknown Venipuncture / Unknown 11/22/2024 4:07 AM EDT 11/22/2024 4:17 AM EDT Zaina Jeffrey PA-C LAB BLOOD ORDERABLES Final R esult [facility] ([facility] [address] [place] [address] * (ABNORMAL) Basic metabolic panel (11/22/2024 4:07 AM EDT) Only the most recent of3 resultswithin the time period is included. Sodium 141 136 - 145 mmol/L 11/22/2024 4:43 AM EDT [facility] ([facility] Potassium 4.0 3.5 - 5.1 mmol/L 11/22/2024 4:43 AM EDT [facility] ([facility] Chloride 109(H) 98 - 107 mmol/L 11/22/2024 4:43 AM EDT [facility] ([facility] CO2 26 21 - 31 mmol/L 11/22/2024 4:43 AM EDT [facility] ([facility] BUN 23 7 - 25 mg/dL 11/22/2024 4:43 AM EDT [facility] ([facility] Creatinine 0.98 0.60 - 1.20 mg/dL 11/22/2024 4:43 AM EDT [facility] ([facility] Glucose 115(H) 70 - 100 mg/dL 11/22/2024 4:43 AM EDT [facility] ([facility] Calcium 8.5(L) 8.6 - 10.3 mg/dL 11/22/2024 4:43 AM EDT [facility] ([facility] Anion Gap 10 7 - 20 mmol/L 11/22/2024 4:43 AM EDT [facility] ([facility] eGFR 56.2(L) >60.0 mL/min/1. 73m*2 11/22/2024 4:43 AM EDT [facility] ([facility] Comment:[facility] s estimated glomerular filtration rate (eGFR) will [...] BUN/Creatinine Ratio 23.5 11/09 4:43 AM EDT [facility] ([facility] Blood Venous blood specimen / Unknown Venipuncture / Unknown 11/22/2024 4:07 AM EDT 11/22/2024 4:17 AM EDT us Jarrell Agosto PA-C LAB BLOOD ORDERABLES Final Res ult [facility] ([place]) [address] [place], [place] [id number] * ECG 12 lead (11/21/2024 11:18 PM EDT) Only the most recent of2 resultswithin the time period is included. Ventricular Rate 59 BPM GE MUSE Atrial Rate 59 BPM GE MUSE NE Interval 184 ms GE MUSE QRS DURATION 92 ms GE MUSE QT Interval 344 ms GE MUSE QTC CALCULATION(BAZE TT) 340 ms GE MUSE P [place] 58 degrees GE MUSE R-[place] 63 degrees GE MUSE T Wave [place] 62 degrees GE MUSE 11/21/2024 11:1 3 [...] informed consent. she was brought to the labor relations analyst in a fasting state. The right groin area was prepped and draped in usual fashion. Micropuncture technique was used under ultrasound guidance for access in the right common femoral artery. Inner cannular angiography was performed followed by upsizing to a 4-Cameroonian x 11 cm sheath. Micropuncture technique was used under ultrasound guidance for access in the right common femoral vein and a 6-[place]onian x 11 cm sheath was placed. A 6-Cam[place]onian Lee catheter was used for right heart catheterization and measurement of pressures and calculation of cardiac output using the estimated Patricia method. Lee catheter was removed. Bilateral selective coronary angiography was then performed using 4-[place]onian JL4 and JR4 diagnostic catheters. Note that initial advancement of the catheters across the aortoiliac bifurcation required the use of an angled Glidewire. Catheters were removed. The right common femoral arterial sheath was upsized to a 5-[place]onian x 11 cm sheath. Heparin was administered intravenously and therapeutic ACT was confirmed during the rest of the procedure. A 5-Cam[place]onian JR4 guiding catheter was advanced and used [...] wire and guiding catheter were retracted. A 5-[place]onian XB 3.0 LBT guiding catheter was advanced [...] stenosis. Baseline TAVO flow was 3. A [place] coronary guide wire was advanced to the [...] the end of the procedure. A 5 [place]onian minx rf technician device was used to manage the right [...] MD Study Details Coronary artery disease involving [place] coronary artery of [place] heart with other form of angina pectoris [I25.118]Chronic diastolic congestive heart failure (CMS/HCC) [I50.32]Shortness of breath [R06.02] Juan F Zepeda MD CV CARDIAC CATH PROCEDURES F inal Result * (ABNORMAL) POC Activated Clotting Time (11/21/2024 6:23 PM EDT) Only the most recent of5 resultswithin the time period is included. [facility] POCT ACT 295(A) 82 - 152 seconds QC Pass/Fail Passed QC LOT # 8 QC Expiration Date 73,125 Blood Venous blood specimen / Unknown 11/21/2024 6:23 PM EDT Narrative Forest Gonzalez [place] - 11/24/2024 11:43 AM EDT Qc lot [id number]; oper 1321 Juan F Zepeda MD POINT OF CARE TEST ENTER/BHAVIK T ORDERABLES Final Result * (ABNORMAL) POC Hb02% (11/21/2024 4:41 PM EDT) [facility] [id number]% 63.1(A) 90 - 95 % QC Pass/Fail Passed QC LOT # [id number] QC Expiration Date 73,126 SAMPLESITE nl Blood Venous blood specimen / Unknown 11/21/2024 4:41 PM EDT Narrative Forest Gonzalez, [place] - 11/24/2024 8:05 AM EDT Oper 9701 Juan F Zepeda MD POINT OF CARE TEST ENTER/BHAVIK T ORDERABLES Final Result from Last 3 Months Insurance MEDICARE Member Subscriber Plan / Payer (Ef fective 1996-Present) Name:Nora Parnell Marianne Member ID:[id number] Relation to Subscriber:Self Name:Nora Parnell Marianne Subscriber ID:[id number] Payer ID:[id number] Group ID:Not on file Type:Medicare Address: [facility] [id number] [facility] Advance Directives * Full Code (Latest Code Status on File) Date Activated Date Inactivated Comments 11/21/2024 9:51 PM 11/22/2024 4:43 PM Care Teams Door Repairer Bus Relationship Specialty Start Date End Date Noble Ferguson DO [address] [facility] [place] [address] PCP - General 04/10/23
--- OUTSIDE RECORDS SUMMARY | 2025-01-27 10:01 | XMS_ITS | Encounter Summary ---
Author Organization [facility] Address [address] [place] [address] Care Team Providers Care String Studies Director Name Role Phone Noble Ferguson DO Primary Care Provider [phone] Reason for Visit * Reason Comments Med Refill Encounter Details Date Type Department Care Team (Late st Contact Info) Description 07/04/2023 Refill [facility] [address] [place] [phone] Juan F Zepeda MD [address] [facility] [place] [phone] Chest pain, unspecified type Social History Tobacco [...] type documented in this encounter Care Teams String Studies Director Relationship Specialty Start Date End Date Noble Ferguson DO [address] [facility] [place] [phone] PCP - General 04/10/23 documented as of this encounter
--- OUTSIDE RECORDS SUMMARY | 2025-01-27 10:01 | XMS_ITS | Encounter Summary ---
Author Organization [facility] Address [address] [place] [address] Phone Care Team Providers Care Certified Shorthand Reporter Name Role Phone Noble Ferguson DO Primary Care Provider [phone] Encounter Details Date Type Department Care Team (Late st Contact Info) Description 11/30/2023 Scanned Document [facility] [address] [place] [phone] Scanning, Generic Provider Social History Tobacco Use [...] on filedocumented in this encounter Care Teams Certified Shorthand Reporter Relationship Specialty Start Date End Date Noble Ferguson DO [address] [place] [address] PCP - General Internal Medicine 12/03/23 documented as of this encounter
--- OUTSIDE RECORDS SUMMARY | 2025-01-27 10:01 | XMS_ITS | Encounter Summary ---
Author Organization [facility] Address [address] [place] [address] Care Team Providers Care Sanitation Truck Cleaner Name Role Phone Noble Ferguson DO Primary Care Provider [phone] Reason for Visit * Reason Comments Med Refill Encounter Details Date Type Department Care Team (Late st Contact Info) Description 02/01/2023 Refill [facility] [address] [place] [phone] Juan F Zepeda MD [address] [facility] [place] [phone] Primary hypertension Social History Tobacco Use Types [...] hypertension documented in this encounter Care Teams Sanitation Truck Cleaner Relationship Specialty Start Date End Date Noble Ferguson DO [address] [facility] [place] [address] PCP - General 04/10/23 documented as of this encounter
--- OUTSIDE RECORDS SUMMARY | 2025-01-27 10:01 | XMS_ITS | Encounter Summary ---
Author Organization [facility] Address [address] [facility] [place] [address] Care Team Providers Care Clinical Interviewer Name Role Phone Noble Ferguson DO Primary Care Provider [phone] Encounter Details Date Type Department Care Team (Late st Contact Info) Description 07/02/2023 Abstract [facility] [address] [facility] [address] [place] [phone] Luis Angel Saucedo MD [address] [facility] [address] [place] [address] Social History Tobacco Use Types [...] on filedocumented in this encounter Care Teams Clinical Interviewer Relationship Specialty Start Date End Date Noble Ferguson DO PCP - General Internal Medicine 04/16/23 documented as of this encounter
--- OUTSIDE RECORDS SUMMARY | 2025-01-27 10:01 | XMS_ITS ---
Author Organization [facility] Address [address] [place] [address] Care Team Providers Care Oil And Gas Exploration Technician Name Role Phone Noble Ferguson DO Primary Care Provider [phone] Active Problems Problem Noted Date Diagnosed Date CAD in [place] artery 11/21/2024 Assessment & Plan (11/22/2024 1:44 [...]
--- OUTSIDE RECORDS SUMMARY | 2025-01-27 10:01 | XMS_ITS | Encounter Summary ---
Author Organization [facility] Address [address] [place] [address] Care Team Providers Care Commercial Review Appraiser Name Role Phone Noble Ferguson DO Primary Care Provider [phone] Reason for Visit * Reason Onset Date Comments Med Refill 01/23/2025 Encounter Details Date Type Department Care Team (Late st Contact Info) Description 01/23/2025 Refill [facility] [address] [place] [address] Aura Candelario MA CAD in [place] artery Social History Tobacco Use Types Packs/Day Years Used Date Smoking Tobacco: Former Cigarettes Q uit: 2008 Smokeless Tobacco: Never Alcohol Use Standard Drinks/Week Comments Never 0 (1 standard drink = 0.6 oz pur e alcohol) [facility] Utilities Answer Date Recorded In the [...] any time in the past 12 m [facility], were you homeless or living in a chcf (including now)? No 11/21/2024 Hunger Vital Sign [...] as of this encounter Visit Diagnoses Diagnosis CAD in [place] artery documented in this encounter Care Teams Commercial Review Appraiser Relationship Specialty Start Date End Date Noble Ferguson DO [address] [place] [phone] PCP - General 04/10/23 documented as of this encounter
--- OUTSIDE RECORDS SUMMARY | 2025-01-27 10:01 | XMS_ITS | Clinical Summary ---
Author Organization [facility] Address [address] [place] [address] Care Team Providers Care Administrative Technician Name Role Phone Noble Ferguson DO Primary Care Provider [phone] Allergies Active Allergy Reactions Criticality Noted Date Comments Penicillins 04/18/2023 Sulfa Antibiotics 04/18/2023 Medications amLODIPine (Norvasc) 10 MG tablet Take 10 mg by mouth in the morning. 04/04/2023 Active atorvastatin (Lipitor) 40 MG tablet Take 40 mg by mouth in the morning. 04/04/2023 Active Trelegy Ellipta 200-62.5-25 MCG/ACT aerosol powder INHALE 1 PUFF ONCE DAILY FOR 30 DAYS 12/07/2022 Active isosorbide mononitrate ER (Imdur) 60 MG 24 hr tablet Take 60 mg by mouth in the morning. 04/04/2023 Active levothyroxine (Synthroid, Levoxyl) 88 MCG tablet TAKE ONE TABLET BY MOUTH ONCE DAILY ON AN EMPTY STOMACH 04/04/2023 Active lisinopril 20 MG tablet Take 20 mg by mouth in the morning. 04/04/2023 Active temazepam (Restoril) 30 MG capsule TAKE ONE CAPSULE BY MOUTH ONCE DAILY AT BEDTIME 30 04/04/2023 Active aspirin 81 MG EC tablet Take 81 mg by mouth in the morning. Active UNABLE TO FIND Med Name: Fiber gummies 5g Active calcium carbonate (Os-Oracio) 1250 (500 Ca) MG tablet Take by mouth Daily. Active UNABLE TO FIND Med Name: Biotin Active cyanocobalamin (Vitamin B-12) 100 MCG tablet Take 100 mcg by mouth in the morning. Active acetaminophen (Tylenol) 500 MG tablet Take by mouth. Active ipratropium-albu terol (Combivent Respimat) 20-100 MCG/ACT inhaler Inhale 1 puff in the morning and 1 puff at noon and 1 puff in the evening and 1 puff before bedtime. Active docusate sodium (Colace) 50 MG capsule Take 50 mg by mouth in the morning and 50 mg before bedtime. Active Active Problems Problem Noted Date Diagnosed Date Open wound of right breast 04/18/2023 Immunizations Immunization Administration Dates Next Due Influenza, High Dose Seasonal, Preservative Free 03/27/2017,03/21/2016 Influenza, Seasonal, Quadrivalent, Adjuvanted Influenza, trivalent, adjuvanted 03/11/2018 Family History Relation Name Status Comments Father Mother Social History Tobacco Use Types Packs/Day Years Used Date Smoking Tobacco: Former Cigarettes Q uit: 2007 Alcohol Use Standard Drinks/Week Comments Not Currently 0 (1 standard drink = 0.6 oz pur e alcohol) Comments Unknown Sex and Gender Information Value Date Recorded Sex Assigned at Not on file Legal Sex Female 7:21 PM EDT Gender Identity Not on file Sexual Orientation Not on file Last Filed Vital Signs Vital Sign Reading Time Taken Comments Blood Pressure 154/76 04/18/2023 1:27 PM EST Pulse - - Temperature - - Respiratory Rate - - Oxygen Saturation - - Inhaled Oxygen Concentration - - Weight 81.6 kg (180 lb) 04/18/2023 1:27 PM EST Height 152.4 cm (5') 04/18/2023 1:27 PM EST Body Mass Index 35.15 04/18/2023 1:27 PM EST Plan of Treatment Health Maintenance Due Date Last Done Comments Influenza Vaccine (#1) 2025 3, 03/06/2022, 03/01/2021, Additional history exists Pneumococcal Vaccine: 65+ Years Completed 5, 04/28/2009 Insurance # [place] [id number] MEDICARE [employer] Care Teams Administrative Technician Relationship Specialty Start Date End Date Noble Ferguson DO PCP - General Internal Medicine 04/16/23
--- OUTSIDE RECORDS SUMMARY | 2025-01-27 10:01 | XMS_ITS | Clinical Summary ---
Author Organization [facility] Address [id number] [address] [place] [address] Care Team Providers Care Human Resources Director Name Role Phone Noble Ferguson Primary Care Provider [phone] Allergies Active Allergy Reactions Criticality Noted Date Comments Penicillins Anaphylaxis,Hives High 11/16/2021 Sulfa (Sulfonamide Antibiotics) Rash Low 09/2014 Medications lisinopriL (PRINIVIL,ZESTRI L) 20 mg tablet Take 1 tablet (20 mg total) by mouth in the morning. Active amLODIPine (NORVASC) 10 mg tablet Take 1 tablet (10 mg total) by mouth in the morning. Active levothyroxine (SYNTHROID, LEVOTHROID) 75 MCG tablet Take 1 tablet (75 mcg total) by mouth in the morning. Active isosorbide mononitrate (IMDUR) 60 mg 24 hr tablet Take 1 tablet (60 mg total) by mouth daily. Active aspirin 81 mg Take 1 tablet (81 mg total) by mouth in the morning. Active atorvastatin (LIPITOR) 40 mg tablet Take 1 tablet (40 mg total) by mouth nightly. Active temazepam (RESTORIL) 30 mg capsule Take 1 capsule (30 mg total) by mouth nightly. Active inulin (FIBER GUMMIES) 2 gram tablet,chewable Chew 1 tablet and swallow daily. Active albuterol (PROVENTIL HFA;VENTOLIN HFA) 90 mcg/actuation inhaler Inhale 2 puffs every 6 (six) hours as needed for wheezing. Active acetaminophen (TYLENOL EXTRA STRENGTH) 500 mg tablet Take 2 tablets (1,000 mg total) by mouth every 6 (six) hours as needed for pain. Active calcium carb and citrate-vitD3 (CITRACAL SLOW RELEASE) 600 mg calcium- 500 units tablet extended release Take 2 tablets by mouth in the morning. Active MECOBALAMIN, VITAMIN B12, INJ Inject 1 INJECTION as directed every 30 (thirty) days. Active vitamin C/biotin (QRLW-CRLD-CJJHL , VIT C-BIOTIN, ORAL) Take 2 tablets by mouth daily. Active TRELEGY ELLIPTA 200-62.5-25 mcg blister with device Inhale 1 puff in the morning. 3 Active Active Problems Problem Noted Date Diagnosed Date Arthritis 08/30/2022 Bowel obstruction 08/30/2022 Breast cancer 08/30/2022 Coronary artery disease 08/30/2022 Hyperlipidemia 08/30/2022 Hypertension 08/30/2022 Necrotizing fasciitis 11/16/2021 Immunizations Immunization Administration Dates Next Due Influenza High Dose Preservative Free IM 017,03/21/2016 Influenza, Trivalent, Adjuvanted 03/11/2018 Family History Medical History Relation Name Comments Stroke Brother Heart attack Father Colon cancer Mother Breast cancer Sister 1 Dementia Sister 1 Breast cancer Sister 2 Heart disease Sister 2 Cancer Son Lung cancer Son Relation Name Status Comments Brother Other Father Mother Sister 1 Alive Sister 2 Alive Son (Age 58) Social History Tobacco Use Types Packs/Day Years [...] Sign Reading Time Taken Comments Blood Pressure 138/58 10/06/2022 10:58 AM EDT Pulse 114 10/06/2022 10:55 AM EDT Temperature 36.8 C (98.2 F) 11/21/2021 12:35 PM EDT Respiratory Rate 18 11/21/2021 12:35 PM EDT Oxygen Saturation 94% 11/21/2021 12:35 PM EDT Inhaled Oxygen Concentration - - Weight 83 kg (183 lb) 10/06/2022 10:55 AM EDT Height 154.9 cm (5' 1 ) 10/06/2022 10:55 AM EDT Body Mass Index 34.58 10/06/2022 10:55 AM EDT Plan of Treatment Health Maintenance Due Date Last Done Comments Depression Screening 1952 Tobacco Screening 1952 DTaP,Tdap and Td Vaccines (1 - Tdap) 1957 Zoster (Shingles) Vaccine (1 of 2) 1957 Fall Risk Screening 2003 COVID-19 Vaccine (4 - 2023-2 5 season) 2024 03/07/2021, 09/07/2020, 08/16/2020 Influenza Vaccine 02/09/2025 03/06/2022, , 03/27/2017, Additional history exists Goals Goal Patient Goal Type Associated Problems Recent Progress Patient-Stated? Author <enter goal here> General Yes Yanna Joe LSW Note: Evaluation of progress towards goal: discharge home vs SNF. Medical Devices Not on file Insurance MEDICARE [facility] Advance Directives * Full Code (Latest Code Status on File) Date Activated Date Inactivated Comments 11/16/2021 2:53 AM 11/21/2021 7:25 PM Care Teams Human Resources Director Relationship Specialty Start Date End Date Noble Ferguson DO [address] [place] [address] PCP - General Internal Medicine 06/11/21
--- OUTSIDE RECORDS SUMMARY | 2025-01-27 10:01 | XMS_ITS | Encounter Summary ---
Author Organization [facility] Address [address] [place] [address] Care Team Providers Care English Composition Teacher Name Role Phone Noble Ferguson DO Primary Care Provider [phone] Encounter Details Date Type Department Care Team (Late st Contact Info) Description 06/12/2023 Abstract [facility] [address] [facility] [address] [place] [id number] Luis Angel Saucedo MD [address] [facility] [address] [place] [address] Social History Tobacco Use Types [...] on filedocumented in this encounter Care Teams English Composition Teacher Relationship Specialty Start Date End Date Noble Ferguson DO PCP - General Internal Medicine 04/16/23 documented as of this encounter
--- OUTSIDE RECORDS SUMMARY | 2025-01-27 12:14 | XMS_ITS | CCD ---
Author Organization [facility] Care Team Providers Care Merchandise Supervisor Name Role Phone PHYSICIAN, DEFAULT Admitting Unavailable PHYSICIAN, DEFAULT Attending Unavailable UNKNOWN, PROVIDER Admitting Unavailable UNKNOWN, PROVIDER Attending Unavailable SELF, REFERRED Referring Unavailable SELF, REFERRED Primary Care Unavailable Marty DONoble Primary Care Provider Gayle Wade Unavailable Checo RODRIGEZ Attending Unavailable BALL, NOBLE Referring Unavailable Ball, Noble Unavailable TAMLYN ., RITU Attending Unavailable TAMLYN ., RITU Admitting Unavailable BALL, DR NEWSOME Primary Care Unavailable TAMLYN ., RITU Attending Unavailable TAMLYN ., RIUT Admitting Unavailable BALL, DR NEWSOME Primary Care [...] Provider MD Luis Angel Saucedo Attending Provider [phone] DO Noble Hayes Primary Care Provider MD Luis Angel Saucedo Attending Provider BrownDO Nika Emergency Provider DO Noble Hayes Primary Care Provider DO Jim Clay Admit Provider DO Jim Clay Attending Provider Luis Angel Saucedo Admitting Unavailable Luis Angel Saucedo Attending Unavailable Noble Hayes Primary Care Unavailable Lewis, Luis Angel Admitting Unavailable Lewis Luis Angel Attending Unavailable Noble Hayes Primary Care Unavailable Jim Clay Admitting Unavailable Jim Clay Attending Unavailable Noble Hayes Primary Care Unavailable Lewis Luis Angel Admitting Unavailable Lewis Luis Angel Attending Unavailable Noble Hayes Primary Care Unavailable Nobel Hayes DO Primary Care Provider Danyel Randle DO Attending Provider Ly Sexton CMA Attending Provider Unavaila Noble Gomes DO Attending Provider [phone] Drake ELLSWORTH, Laender Attending Provider [phone] Bala Zepeda MD, V Attending Provider STEFANIE HUTCHINS Attending Unavailable BALA ZEPEDA Attending Unavailable BALA ZEPEDA Attending Unavailable BALA ZEPEDA Attending Unavailable CK, HUANG Admitting Unavailable DUKE, BILLIE Attending Unavailable BALA ZEPEDA Referring Unavailable SPENCER, SAMLOLA Referring Unavailable Allergies Allergy Classification Reported Allergen(s) Allergy Type Date of Onset Reaction(s) Facility penicillAMINE (3 sources) penicillAMINE Drug Allergy 08-10-19 24 [facility] Penicillins (antibiotic) (3 sources) Penicillins Drug Allergy 08-10-19 24 [facility] Sulfonamides (antibiotic) (6 sources) Sulfonamides (Antibiotic) Drug Allergy 08-10-19 24 [facility] Sulfur (3 sources) Sulfur Drug Allergy 08-10-19 24 [facility] (20 sources) Penicillins; 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: [PENICILLINS] Drug allergy (disorder) 04-28-20 14 [facility] Comment on above: Onset Date: 05/15/20 14 (20 sources) Sulfonamides (Antibiotic); 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: [SULFA (SULFONAMIDE ANTIBIOTICS)] Drug allergy (disorder) 06-11-18 94 [facility] Comment on above: Onset Date: 05/15/20 14 (17 sources) Penicillins Drug Allergy 05-15-20 14 Unknown [facility] (17 sources) Sulfonamides (Antibiotic) Drug Allergy 05-15-20 14 Unknown [facility] (20 sources) guaiFENesin Drug Allergy Unknown [facility] Other (20 sources) penicillAMINE Drug Allergy 08-10-19 24 Unknown, [facility] (20 sources) Sulfacetamide / Sulfur Drug Allergy Unknown [facility] Other (15 sources) Dextromethorphan Drug Allergy 07-22-19 14 Unknown [facility] Other (15 sources) guaiFENesin Drug Allergy 07-22-19 14 Unknown [facility] Other (1 source) Penicillin Drug Allergy Unknown [facility] Other (15 sources) Sulf-10 Drug allergy Unknown [facility] Other (1 source) patient allergy list reviewed by nurse or physicia Propensity to adverse reactions 05-09-20 13 Comment:Done [facility] Other (1 source) Allergies Reconciled Propensity to adverse reactions Unknown [facility] Other (20 sources) Sulfacetamide; 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: [sulfacetamide] Drug Allergy 08-10-19 24 [facility] (20 sources) Sulfur; 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: [sulfur] Drug Allergy 08-10-19 24 [facility] (1 source) penicillAMINE Drug Allergy 11-30-19 [facility] Repository (1 source) Penicillins Drug allergy (disorder) 11-30-19 [facility] Repository (1 source) Sulfonamides (Antibiotic) Drug allergy (disorder) 11-30-19 [facility] Repository Medications Current Medications Medication Drug Class(es) [...] a day for 30 days Nov, Active [id number] 200 actuat albuterol 0.09 mg/actuat metered dose inhaler (20 sources) beta2-Adrenergic Agonist Start: 02-19-2024 take 1 puff(s) by inhalation every four to six hours as needed Start: 05-17-2023 End: 02-19-2024 Albuterol Sulfate 90 mcg/act uation HFA aerosol inhaler Discontinued 2 PUFF INHALATION As Directed as needed for Shortness Of Breath 8.5 30 February 19, 2024 10:45am February 19, 2024 12:49pm take 1 puff(s) by in halation every [...] Aggregation Inhibitor, Nonsteroidal Anti-inflammatory Drug Start: take 1 tablet by mouth once daily take 1 tablet by [facility] every twenty-four hours aspirin, enteric coated (ASPIRIN, ENTERIC COATED) 81 mg EC tablet Take 81 mg by mouth q 24 HR. 0 Active Comment on above: Take 81 mg by mouth q 24 HR. atorvastatin 40 mg oral tablet (20 sources) HMG-CoA Reductase Inhibitor Start: 04-24-2023 take 1 tablet by mouth once daily Comment on above: Take 40 mg by mouth once daily. Wgciwg-Bbgpghpe-Zgx C-E-Herbal (15 sources) Start: 04-24-2023 take 2 tablets by mouth once daily Yavkoq-Tnfrwgmz-S it C-E-Herbal Active 2 TAB PO Daily after supper April 24, 2023 1:00am Start: 04-24-2023 take 2 tablets by [facility] once daily Vlwklm-Xyonuohv-Xkg C-E-Herbal Active 2 TAB PO Daily after supper April 24, 2023 12:00am Pqtlzm-Hnxigugf-Zca C-E-Herb al 1,250 mcg-50 mg -67.5 mg-15 mg Tablet,Chewable (9 sources) Start: 04-24-2023 take 2 tablets by [facility] once daily Start: 04-24-2023 take 2 tablets by [facility] once daily Fjujjr-Mqyioghl-Ghd C-E-Herbal 1,250 mcg-50 mg -67.5 mg-15 mg Tablet,Chewable Active 2 TAB PO Daily after supper April 24, 2023 1:00am Start: 04-24-2023 take 2 tablets by [facility] once daily Glnfmr-Ugwcmcmb-Ycn C-E-Herbal 1,250 mcg-50 mg -67.5 mg-15 mg Tablet,Chewable Active 2 TAB PO Daily after supper April 24, 2023 12:00am bumetanide 0.5 mg oral tablet (4 sources) Loop Diuretic Start: 12-26-2022 take 1 tablet by mouth every twenty-four hours Bumetanide 0.5 MG 1 tablet Orally Once a day for 5 days Dec, Active calcium carbonate 1500 mg / cholecalciferol 0.01 mg oral tablet (20 sources) Vitamin D Start: 04-24-2023 take 1 tablet by mouth once daily Calcium-Vitamin D 500 MG (20 sources) take 1 tablet by eveline twice daily at mealtime Calcium-Vitamin D 500 MG 1 tablet with f ood Orally Twice a day Active clopidogrel 75 mg oral tablet (1 source) P2Y12 Platelet Inhibitor Start: 11-23-2024 take 1 tablet by mouth once daily doxazosin 4 mg oral tablet (20 sources) alpha-Adrenergic Melanie Start: 11-23-2024 take 2 tablets by mouth once daily at bedtime Start: 08-22-2024 End: 11-23-2024 take 3 mg by mouth once daily at bedtime Doxazosin 2 mg tablet Discontinued 3 MG PO Daily at bedtime August 22, 2024 12:01pm November 23, 2024 3:40pm Start: 11-26-2023 End: 08-22-2024 take 1 tablet by mouth once daily at bedtime Doxazosin 2 mg tablet Discontinued 2 MG PO Daily at bedtime November 30, 2023 12:00am August 22, 2024 12:02pm doxycycline hyclate 100 mg oral capsule (20 sources) Tetracycline-class Drug Start: 04-10-2023 take 1 capsule by mouth every twelve hours Doxycycline Hyclate 100 MG 1 capsule Orally Twice a day for 10 days Mar, Active Start: 08-10-2022 take 1 capsule by mo [facility] twice daily Doxycycline Hyclate 100 MG 1 capsule Orally twice daily for 7 days Aug, Active Fiber (20 sources) Fiber - as direc katia Orally Active Yhuebszpsyn-Hqpdymjqx-Zrtlkr er (20 sources) Start: 10-29-2024 Start: 10-29-2024 Fluticasone-Um eclidin-Vilanter (Trelegy Ellipta) 200-62.5-25 mcg blister with device Active 1 INH INHALATION Daily 60 October 29, 2024 12:00am Start: 04-24-2023 End: 10-29-2024 Tucipwuigsa-Quvmywlqn-Ykfszr er (Trelegy Ellipta) 200-62.5-25 mcg Blister With Device Discontinued 1 INH INHALATION Daily April 24, 2023 1:00am October 29, 2024 1:02pm Start: 04-24-2023 Fluticasone-Um eclidin-Vilanter (Trelegy Ellipta) 200-62.5-25 mcg Blister With Device Active 1 INH INHALATION Daily April 24, 2023 1:00am Start: 04-24-2023 Fluticasone-Um eclidin-Vilanter (Trelegy Ellipta) 200-62.5-25 mcg Blister With Device Active 1 INH INHALATION Daily April 24, 2023 12:00am inulin 2000 mg chewable tabl et (20 sources) Start: 04-24-2023 take 1 tablet by eveline th twice daily inulin (FIBER MMIES ORAL) Take by mouth. 0 Active Comment on above: Take by mouth. 24 hr isosorbide mononitrate 120 mg extended release oral tablet (20 sources) Nitrate Vasodilator Start: 12-30-2024 take 1 tablet by mouth once daily in the morning, then take 4 tablets by mouth every twenty-four hours Start: 03-20-2024 End: 12-30-2024 take 1 tablet by mouth once daily in the morning, then take 1 tablet by mouth every twenty-four hours Isosorbide Mononitrate 30 mg tablet extended release 24 hr Discontinued 30 MG PO Daily November 24, 2024 11:01am December 30, 2024 7:59pm take 30mg in the morning; take 60+30mg to EQUAL 90mg Start: 04-24-2023 End: 11-23-2024 take 1 tablet by mouth once daily in the morning, then take 1 tablet by mouth every twenty-four hours Isosorbide Mononitrate 60 mg tablet extended release 24 hr Discontinued 60 MG PO Every morning April 24, 2023 1:00am November 23, 2024 3:40pm Comment on above: Take 60 mg by mouth once daily. levothyroxine sodium 0.088 mg oral tablet (20 sources) l-Thyroxine Start: 01-29-2024 End: 12-24-2024 take 1 tablet by mouth once daily Start: 01-29-2024 take 1 tablet by eveline th once daily Levothyroxine 88 mcg tablet Active 0 .ROUTE .COMPLEX 30 Peter 20th, 2024 1:10pm TAKE ONE TABLET BY MOUTH ONCE DAILY ON AN EMPTY STOMACH Start: 01-29-2024 take 1 tablet by eveline th once daily Levothyroxine 88 mcg tablet Active [...] take 1 tablet by mouth twice daily Start: 03-19-2024 End: 03-20-2024 take 1 tablet by mouth once daily Lisinopril 40 mg tablet Discontinued 40 MG PO Daily March 19, 2024 6:05pm March 20, 2024 2:30pm Start: 02-19-2024 End: 03-19-2024 Lisinopril 40 mg tablet Disc ontinued 30 MG PO Daily February 19, 2024 12:46pm March 19, 2024 6:05pm Start: 02-19-2024 take 30 mg by mouth once daily Lisinopril Active 30 MG PO Daily February 19, 2024 12:46pm Start: 02-19-2024 End: 02-19-2024 take 1 tablet by mouth once daily Lisinopril 40 mg tablet Discontinued 40 MG PO Daily February 19, 2024 10:49am February 19, 2024 12:46pm Start: 12-10-2023 End: 03-19-2024 take 1 tablet by mouth once daily Lisinopril 30 mg tablet Discontinued 30 MG PO Daily February 19, 2024 12:00am March 19, 2024 6:05pm Start: 12-10-2023 End: 01-03-2024 take 2 tablets by mouth once daily, then take 3 tablets by mouth once daily Lisinopril 10 mg tablet Discontinued 10 MG PO Daily December 10, [...] succinate 25 mg extended release oral tablet (16 sources) beta-Adrenergic Melanie Start: 12-01-2023 take 2 tablets by mouth once daily Start: 12-01-2023 take 12.5 mg by mout h once daily Metoprolol Succinate Active 12.5 MG PO Daily December 01, 2023 12:00am pantoprazole 20 mg delayed release oral tablet (1 source) Proton Pump Inhibitor Start: 12-30-2024 take 1 tablet by mouth once daily trelegy ellipta 200-62.5-25 mcg/act aerosol powder breath activated (5 sources) Start: 12-06-2022 take 1 puff(s) by inhalation once daily Trelewilly Ellipta 200-62.5-25 MCG/ACT 1 puff Inhalation Once a day Nov, Active vitamin b12 1 mg/ml injectable solution (20 sources) Vitamin B12 Start: 05-17-2023 inject 1000 ug by intramuscular injection every month Start: 05-17-2023 inject 1000 ug by in [...] as needed for Pain May 17, 2023 1:00am March 20, 2024 2:29pm take 1 capsule by mouth every si [...] NEBULI ZER EVERY 6 HOURS NEEDED amLODIPine 2.5 mg oral tablet (20 sources) Dihydropyridine Calcium Channel Melanie Start: 05-27-20 End: 08-23-19 take 1 tablet by mouth once daily Amlodipine 2.5 mg tablet Discontinued 2.5 MG PO Daily May 27, 2024 1:00am August 22, 2024 12:20pm Start: 04-24-2023 End: 11-26-2023 take 1 tablet by mouth once daily in the morning Amlodipine 10 mg tablet Discontinued 10 MG PO Every morning April 24, 2023 1:00am November 26, 2023 4:11pm Comment on above: Take 10 mg by mouth once daily. azithromycin 250 mg oral tablet (3 sources) Macrolide Antimicrobial Start: 10-06-2024 End: 11-24-2024 Azithromycin 250 mg tablet Discontinued 250 MG PO .COMPLEX 6 October 06, 2024 12:00am November 24, 2024 11:00am 2 tabs on first day followed by 1 tab on days 2-5 B-12 - up to 1000 mcg (20 [...] (Vitamin B-12) (Vitamin B-12) 100 mcg/mL Solution (20 sources) Start: 04-24-2023 End: 05-17-2023 Cyanocobalamin (Vitamin B-12) (Vitamin B-12) 100 mcg/mL Solution Discontinued 100 MCG April 24, 2023 1:00am May 17, 2023 [...] FOR ITCHINESS furosemide 20 mg oral tablet (20 sources) Loop Diuretic Start: 11-19-2024 End: 11-24-2024 take 1 tablet by mouth once daily Furosemide 20 mg tablet Discontinued 20 MG PO Daily November 19, 2024 12:00am November 24, 2024 11:00am Start: 03-20-2024 End: 05-27-2024 take 1 tablet by mouth twice daily Furosemide 20 mg tablet Discontinued 20 MG PO Twice daily March 20, 2024 12:00am May 27, 2024 4:20pm Start: 01-01-2024 End: 02-19-2024 take 1 tablet by mouth twice daily Furosemide 20 mg tablet Discontinued 20 MG PO Twice daily 60 January 01, 2024 12:00am February 19, 2024 10:25am ketoconazole 20 mg/ml medicated shampoo (2 sources) Azole Antifungal Start: 08-27-2020 ketoconazole (NIZORAL) 2 % shampoo APPLY WASH TO SCALP EVERY OTHER DAY. LET SIT FOR 5 MINUTES BEFORE RINSING. 0 08/27/2020 Active Comment on above: APPLY WASH TO SCALP EVERY OTHER DAY. LET SIT FOR 5 MINUTES BEFORE RINSING. ondansetron 4 mg disintegrating oral tablet (2 sources) Serotonin-3 Receptor Antagonist Start: 10-08-2024 End: 11-23-2024 take 1 tablet by mouth every eight hours as needed for nausea and vomiting Ondansetron 4 mg tablet,disintegrati ng Discontinued 4 MG PO Every 8 hours as needed for nausea and vomiting 10 October 08, 2024 12:00am November 23, 2024 3:40pm spironolactone 25 mg oral tablet (16 sources) Aldosterone Antagonist Start: 12-01-2023 End: 02-19-2024 take 1 tablet by mouth once daily Spironolactone 25 mg Tablet Discontinued 25 MG PO Daily December 01, 2023 12:00am February 19, 2024 12:45pm temazepam 30 mg oral capsule (20 sources) Benzodiazepine Start: 02-01-2023 End: 06-26-2024 take 1 capsule by mouth once daily [...] at bedtime. torsemide 20 mg oral tablet (18 sources) Loop Diuretic Start: 11-19-19 End: 11-30-19 [...] Date Documented Da te Episodic/Chronic Acute bronchitis (6 sources) Acute bronchitis; 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: [Acute bronchitis, unspecified] 10-06-2024 Episodic Anal and rectal conditions (20 sources) [...] chronic bronchitis] Onset: 09-03-2018 Resolved: 03-01-2021 Chronic Comment on above: PFT: mild obstructiv e defect, mild restrictive defect, decreased DLCO - 02/2024,CTA chest: negative - 11/2023 Complications of surgical procedures or medical care (20 sources) Other complications of procedures, not elsewhere classified, initial encounter; 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: [Non-healing surgical wound] Onset: 11-02-2022 Episodic Congestive heart failure; nonhypertensive (20 sources) Acute exacerbation of chronic congestive heart failure; 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: [Acute on chronic diastolic (congestive) heart failure] Onset: 11-30-2023 11-19-2023 Chronic Comment on above: Echo: LVEF 55%, mild , normal RV size/function - 11/2023 Echo: LVEF 55%, mild , normal RV size/function - 11/2023,Echo: LVEF 60%, KAREEM, normal RV size/function, RVSP 33 - 10/2024 Coronary atherosclerosis and other heart disease (20 sources) Atherosclerotic heart disease of [place] coronary artery with unstable angina pectoris; 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: [Coronary arteriosclerosis] Onset: 09-03-2018 Chronic Comment on above: Stress testing w/o i schemia - 11/2023 [facility]: PCI/stent RCA, 70% LCx, 70% distal LAD - 08/2018,Stress testing w/o ischemia - 11/2023 [facility]: PCI/stent RCA, 70% LCx, 70% distal LAD - 08/2018,Stress testing w/o ischemia - 11/2023,PCI/stent mid LCx - 11/2024 Deficiency and other anemia (2 sources) Anemia [...] Episodic Hypertension with complications and secondary hypertension (6 sources) Chronic kidney disease due to hypertension; 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: [Hypertensive chronic kidney disease with stage 1 through stage 4 chronic kidney disease, or unspecified chronic kidney disease] Onset: 03-19-2024 10-06-2024 Chronic Immunizations and screening for infectious disease (2 sources) Vaccination given; 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: [Encounter for immunization] Episodic Miscellaneous mental health disorders (20 sources) Primary insomnia; Translations: [Primary insomnia] 08-03-2023 [...] pathological fracture] Chronic Other aftercare (1 source) 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; 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] Onset: 09-03-2018 Episodic Other aftercare (2 sources) Long-term current use of drug therapy; Translations: [Other [place] [facility]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] Episodic Other circulatory disease [...] Onset: 09-03-2018 Episodic Other lower respiratory disease (12 sources) Dyspnea; Translations: [Other forms of dyspnea] Onset: 04-16-2018 02-27-2024 Episodic Other nervous system disorders (18 sources) [...] Episodic Other nutritional; endocrine; and metabolic disorders (14 sources) Obesity; Translations: [Obesity, unspecified] 02-19-2024 Chronic [...] Chronic Other nutritional; endocrine; and metabolic disorders (11 sources) Obesity, unspecified; Translations: [Obesity, unspecified] 02-19-2024 Chronic Other screening for suspected conditions (not mental disorders or infectious disease) (20 sources) Abnormal result of other cardiovascular function study; Translations: [Patient encounter status] Onset: 09-21-2014 Episodic Peripheral and visceral atherosclerosis (2 sources) Peripheral vascular disease, unspecified; Translations: [Peripheral vascular disease, unspecified] Onset: 12-29-2024 Chronic Pneumonia (except that caused by tuberculosis or [...] unspecified; Translations: [Insomnia] Episodic Residual codes; unclassified (20 sources) H/O: radiation exposure; Translations: [Personal history of irradiation] 04-24-2023 Episodic Residual codes; unclassified (7 sources) Personal history of irradiation; Translations: [Personal history of irradiation, presenting hazards to health] 05-15-2023 Episodic Residual codes; unclassified (18 sources) Edema; Translations: [Edema, unspecified] 11-19-2023 Episodic [...] of coronary angioplasty implant and graft] Onset: 07-21-2024 Episodic Deficiency and other anemia (2 sources) [...] 05-01-2013 Resolved: 11-28-2019 Episodic Nonspecific chest pain (20 sources) Chest pain; Translations: [Chest pain, unspecified] Onset: 07-25-2018 11-30-2023 Episodic Other aftercare (1 source) Other [place] [facility] (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; Translations: [OTH SOLDERER CURRENT DRUG THERAPY] Onset: 01-27-2022 Episodic Other gastrointestinal disorders (1 source) Digestive symptom; Translations: [Other symptoms involving digestive system] Onset: 08-30-2015 Episodic Other lower respiratory disease (3 sources) Other forms of dyspnea; Translations: [Other forms of dyspnea] Onset: 04-11-2023 Episodic Other skin disorders (1 source) Sebaceous [...] Test Name Value Interpretation Reference Range Facility 36 01-08-2025 36 Patient called stati ng since isosorbide was increased from 90mg to 120mg daily she's had LE edema. No increased SOB. Said her BP has been good. Any recommendations? She wanted to know if she can go back down to the 90mg daily? Please advise. Thanks. [facility] Follow-Upon 12-29-2024 Follow-Up [id number] Clari Gibbs 1940 F Date Provider Department Center 12/29/2024 BALA MORGAN [facility] Family History Problem Relation Age of Onset No Known Problems Mother No Known Problems Father Hypertension Brother Family Status - Relation Status Age at Mother Father Brother Level of Service:57519 MD OFFICE/OUTPATIENT ESTABLISHED MOD MDM 30 MIN [facility] 30on 11-22-2024 30 The patient is Moder ately Stable - Low risk of patient condition declining or worsening The patient's goals for the shift include comfort The clinical goals for the shift include VSS, safety Normal [facility] 30 The patient is Moder ately Stable - Low risk of patient condition declining or worsening The patient's goals for the shift include rest, comfort The clinical goals for the shift include vss [facility] APOLIPOPROTEIN B-100on 11-22 Magnesium [Mass/Vol] 49 mg/dL Low 60-117 [facility] Comment on above: Result Comment: REFE RENCE INTERVAL: Apolipoprotein B A desirable fasting serum Apo B concentration for the prevention of atherosclerotic cardiovascular disease in adults is less than 90 mg/dL. A fasting serum Apo B concentration of 130 mg/dL or greater corresponds to a LDL cholesterol concentration greater than 160 mg/dL and constitutes a risk enhancing factor for atherosclerotic cardiovascular disease in adults. Performed By: [facility] [address] [place] [address] Manager University: Paulino العراقي MD, PhD CLIA Number: [id number] Performed By: #### L [id number] #### [facility] ([facility]) [address] [place] [address] BASIC METABOLIC PANELon 11-09 Anion gap [Moles/Vol] 10 mmol/L Normal 7-20 [facility] Comment on above: Performed By: #### L [id number] #### [facility] ([facility]) [address] [place] [address] Calcium [Mass/Vol] 8.5 mg/dL Low 8.6-10.3 [facility] Comment on above: Performed By: #### L [id number] #### [facility] ([facility]) [address] [place] [address] Chloride [Moles/Vol] 109 mmol/L High 98-107 [facility] Comment on above: Performed By: #### L [id number] #### [facility] ([facility]) [address] [place] [address] CO2 [Moles/Vol] 26 mmol/L Normal 21-31 [facility] Comment on above: Performed By: #### L [id number] #### [facility] ([facility]) [address] [place] [address] Creatinine [Mass/Vol] 0.98 mg/dL Normal 0.60-1.20 [facility] Comment on above: Performed By: #### L [id number] #### [facility] ([facility]) [address] [place] [address] GLOMERULAR FILTRATION RATE ML/MIN/1.73 SQ M.PREDICTED 56.2 mL/min/1.73m*2 Low >60.0 [facility] Comment on above: Result Comment: The [facility]???s estimated glomerular filtration rate (eGFR) will no longer include consideration of race in its calculation. The National Kid[employer] Foundation???s eGFR Task Force developed new recommendations for [...] disproportionately affect any one group of individuals. Performed By: #### L [id number] #### [facility] ([facility]) [address] [place] [address] Glucose [Mass/Vol] 115 mg/dL High 70-100 [facility] Comment on above: Performed By: #### L [id number] #### [facility] ([facility]) [address] [place] [address] Potassium [Moles/Vol] 4.0 mmol/L Normal 3.5-5.1 [facility] Comment on above: Performed By: #### L [id number] #### [facility] ([facility]) [address] [place] [address] Sodium [Moles/Vol] 141 mmol/L Normal 136-145 [facility] Comment on above: Performed By: #### L [id number] #### [facility] [address] [place] [address] Urea nitrogen [Mass/Vol] 23 mg/dL Normal 7-25 [facility] Comment on above: Performed By: #### L [id number] #### [facility] ([facility]) [address] [place] [address] UREA NITROGEN/CREATININE (MASS RATIO) IN SER/PLAS 23.5 Normal [facility] Comment on above: Performed By: #### L [id number] #### [facility] ([facility]) [address] [place] [address] CBCon 11-22-2024 Erythrocyte distribution width (RBC) [Ratio] 13.6 % Normal 11.5-15.0 [facility] Comment on above: Performed By: #### L [id number] #### [facility] ([facility]) [address] [place] [address] ERYTHROCYTE MEAN CORPUSCULAR HEMOGLOBIN CONCENTRATION (G/DL) BY AUTOMATED 33.0 g/dL Normal 32.0-35.0 [facility] Comment on above: Performed By: #### L [id number] #### [facility] ([facility]) [address] [place] [address] Hematocrit (Bld) [Volume fraction] 31.8 % Low 36.0-45.0 [facility] Comment on above: Performed By: #### L [id number] #### [facility] ([facility]) [address] [place] [address] Hemoglobin (Bld) [Mass/Vol] 10.5 g/dL Low 12.0-15.0 [facility] Comment on above: Performed By: #### L [id number] #### [facility] ([facility]) [address] [place] [address] MCH (RBC) [Entitic mass] 30.0 pg Normal 27.0-33.0 [facility] Comment on above: Performed By: #### L [id number] #### [facility] ([facility]) [address] [place] [address] MCV (RBC) [Entitic vol] 90.9 fL Normal 82.0-98.0 [facility] Comment on above: Performed By: #### L [id number] #### [facility] ([facility]) [address] [place] [address] PLATELETS (10*3/UL) IN BLOOD AUTOMATED COUNT 163 10*3/uL Normal 150-400 [facility] Comment on above: Performed By: #### L [id number] #### [facility] ([facility]) [address] [place] [address] RBC (Bld) [#/Vol] 3.50 10*6/uL Low 3.80-5.00 [facility] Comment on above: Performed By: #### L [id number] #### [facility] ([facility]) [address] [place] [address] WBC (Bld) [#/Vol] 7.46 10*3/uL Normal 4.00-10.60 [facility] Comment on above: Performed By: #### L [id number] #### [facility] ([facility]) [address] [place] [address] LIPID PANELon 11-22-2024 CHOL/HDL 2.2 mg/dL Normal [facility] Comment on above: Performed By: #### L [id number] ####[facility] ([facility])[address] [place] [address] Cholesterol [Mass/Vol] 91 mg/dL Low 120-200 [facility] Comment on above: Performed By: #### L [id number] ####[facility] ([facility])[address] [place] [address] Magnesium [Mass/Vol] 106 mg/dL Normal <150 [facility] Comment on above: Result Comment: TRIG LYCERIDE REFERENCE RANGE: 20 YEARS AND OLDER CARDIOVASCULAR RISK LESS THAN 150 mg/dL LOW RISK 150 TO 199 mg/dL BORDERLINE RISK 200 mg/dL AND GREATER HIGH RISK Performed By: #### L [id number] ####[facility] ([facility])[address] [place] [address] Magnesium [Mass/Vol] 29 mg/dL Normal 0-160 [facility] Comment on above: Performed By: #### L [id number] ####[facility] ([facility])[address] [place] [address] Magnesium [Mass/Vol] 41 mg/dL Normal 23-92 [facility] Comment on above: Performed By: #### L [id number] ####[facility] ([facility])[address] [place] [address] NON HDL CHOL. (LDL+VLDL) 50 Normal [facility] Comment on above: Performed By: #### L [id number] ####[facility] ([facility])[address] [place] [address] TOTAL VLDL-C 21 mg/dL Normal 0-40 [facility] Comment on above: Performed By: #### L [id number] ####[facility] ([facility])[address] [place] [address] NURSNOTEon 11-22-2024 NURSNOTE Pt discharged with belongings including AVS with family Normal [facility] Orders Onlyon 11-22-2024 Orders Only [id number] Clari Gibbs L 1940 F Date Provider Department Center 11/22/2024 [id number] [facility] Family History Problem Relation Age of Onset No Known Problems Mother No Known Problems Father Hypertension Brother Family Status - Relation Status Age at Mother Father Brother Normal [facility] BASIC METABOLIC PANELon 11-09 Anion gap [Moles/Vol] 12 mmol/L Normal 7-20 [facility] Comment on above: Performed By: #### L [id number] ####[facility] ([facility])[address] [place] [address] Calcium [Mass/Vol] 8.9 mg/dL Normal 8.6-10.3 [facility] Comment on above: Performed By: #### L [id number] ####[facility] ([facility])[address] [place] [address] Chloride [Moles/Vol] 108 mmol/L High 98-107 [facility] Comment on above: Performed By: #### L [id number] ####[facility] ([facility])[address] [place] [address] CO2 [Moles/Vol] 23 mmol/L Normal 21-31 [facility] Comment on above: Performed By: #### L [id number] ####[facility] ([facility])[address] [place] [address] Creatinine [Mass/Vol] 0.91 mg/dL Normal 0.60-1.20 [facility] Comment on above: Performed By: #### L [id number] ####[facility] ([facility])[address] [place] [address] GLOMERULAR FILTRATION RATE ML/MIN/1.73 SQ M.PREDICTED 61.4 mL/min/1.73m*2 Normal >60.0 [facility] Comment on above: Result Comment: The [facility]???s estimated glomerular filtration rate (eGFR) will no longer include consideration of race in its calculation. The National Kidney Foundation???s eGFR Task Force developed new recommendations for [...] disproportionately affect any one group of individuals. Performed By: #### L [id number] ####[facility] ([facility])[address] [place] [address] Glucose [Mass/Vol] 113 mg/dL High 70-100 [facility] Comment on above: Performed By: #### L [id number] ####[facility] ([facility])[address] [place] [address] Potassium [Moles/Vol] 4.2 mmol/L Normal 3.5-5.1 [facility] Comment on above: Performed By: #### L [id number] ####[facility] ([facility])[address] [place] [address] Sodium [Moles/Vol] 139 mmol/L Normal 136-145 [facility] Comment on above: Performed By: #### L [id number] ####[facility] ([facility])[address] [place] [address] Urea nitrogen [Mass/Vol] 22 mg/dL Normal 7-25 [facility] Comment on above: Performed By: #### L [id number] ####[facility] ([facility])[address] [place] [address] UREA NITROGEN/CREATININE (MASS RATIO) IN SER/PLAS 24.2 Normal [facility] Comment on above: Performed By: #### L [id number] ####[facility] ([facility])[address] [place] [address] CBCon 11-21-2024 Erythrocyte distribution width (RBC) [Ratio] 13.6 % Normal 11.5-15.0 [facility] Comment on above: Performed By: #### L [id number] #### [facility] ([facility]) [address] [place] [address] ERYTHROCYTE MEAN CORPUSCULAR HEMOGLOBIN CONCENTRATION (G/DL) BY AUTOMATED 32.0 g/dL Normal 32.0-35.0 [facility] Comment on above: Performed By: #### L [id number] #### [facility] ([facility]) [address] [place] [address] Hematocrit (Bld) [Volume fraction] 35.3 % Low 36.0-45.0 [facility] Comment on above: Performed By: #### L [id number] #### [facility] ([facility]) [address] [place] [address] Hemoglobin (Bld) [Mass/Vol] 11.3 g/dL Low 12.0-15.0 [facility] Comment on above: Performed By: #### L [id number] #### [facility] ([facility]) [address] [place] [address] MCH (RBC) [Entitic mass] 29.7 pg Normal 27.0-33.0 [facility] Comment on above: Performed By: #### L [id number] #### [facility] ([facility]) [address] [place] [address] MCV (RBC) [Entitic vol] 92.7 fL Normal 82.0-98.0 [facility] Comment on above: Performed By: #### L [id number] #### [facility] ([facility]) [address] [place] [address] PLATELETS (10*3/UL) IN BLOOD AUTOMATED COUNT 186 10*3/uL Normal 150-400 [facility] Comment on above: Performed By: #### L [id number] #### [facility] ([facility]) [address] [place] [address] RBC (Bld) [#/Vol] 3.81 10*6/uL Normal 3.80-5.00 [facility] Comment on above: Performed By: #### L [id number] #### [facility] ([facility]) [address] [place] [address] WBC (Bld) [#/Vol] 11.10 10*3/uL High 4.00-10.60 [facility] Comment on above: Performed By: #### L [id number] #### [facility] ([facility]) [address] [place] [address] HPon 11-21-2024 History Of Present Illness Nora Gibbs is a 84 y.o. female presenting for coronary angiogram. She had dyspnea with exertion occasional palpitations and lots of fatigue. She has history of COPD and coronary artery disease status post stenting of the RCA in 2019. At that time she had moderate disease in the circumflex and apical LAD. This has been managed medically. Past Medical History She has a past medical history of Cancer ([facility]), COPD (chronic obstructive pulmonary disease) ([facility]), Coronary artery disease, and Hypertension. Surgical History She has a past surgical history that includes Cardiac catheterization; Coronary stent placement; Breast surgery; and Colon surgery. Social History She reports that she quit smoking about 17 years ago. Her smoking use included cigarettes. She has never used smokeless tobacco. She reports that she does not drink alcohol and does not use drugs. Allergies Penicillins and Sulfa (sulfonamide antibiotics) Medications Prescriptions Prior to Admission[1] Review of Systems Constitutional: Positive for malaise/fatigue. Cardiovascular: Positive for chest pain (heaviness), dyspnea on exertion and palpitations (occasional). Negative for leg swelling. Musculoskeletal: Positive for arthritis, back pain, joint pain and myalgias. All other systems reviewed and are negative. Physical Exam Constitutional: Appearance: She is well-developed. [...] swelling. Cervical back: Neck supple. Right lower leg: No edema. Left lower leg: No edema. Skin: General: Skin is warm and dry. Neurological: General: No focal deficit present. Mental Status: She is alert and oriented to person, place, and time. Psychiatric: Mood and Affect: Mood normal. Behavior: Behavior is cooperative. Judgment: Judgment normal. Last Recorded Vitals Blood pressure (!) 178/47, pulse 58, resp. rate 16, SpO2 97%. Relevant Results Imaging and other tests 6-minute walk test 03/05/2024: No ambulatory desaturations, excellent walk distance but patient voiced severe symptomatic dyspnea during the study without any correlation to her oxygenation. Recommendation: No supplemental oxygen required. Clinical correlation required. PFTs 02/25/2024: Mild obstructive defect without significant bronchodilator response. Decreased TLC consistent with mild restrictive defect. Decreased DLCO consider ILD, pulmonary hypertension, chronic PE. Stress test 12/06/2023: Small fixed defect mid anterior wall, LAD distribution. Breast attenuation artifact is favored. Normal exercise stress test. LVEF 88%. Echocardiogram 11/30/2023: Left regular size, thickness and function are normal. Ejection fraction equal 65-70%. Trivial valvular aortic stenosis. Trace tricuspid regurgitation. Normal right ventricular size and function. CTA chest 11/30/2023: No acute pulmonary embolus, mild atelectasis, trace pleural effusion blunting the posterior costophrenic angle. Left lower extremity duplex ultrasound 06/14/2023: No deep or superficial vein thrombus identified in the left leg. Cardiac cath 09/03/2018: 1. 90% mid RCA stenosis reduced to 0% by a Synergy drug-eluting stent. 2. 70% stenosis in the mid circumflex. 3. Mild disease in the proximal to mid LAD and 70% stenosis in the apical LAD. 4. Normal filling pressures. 5. Normal pulmonary arterial pressures. 6. Preserved cardiac output and cardiac index. ECG 08/12/2018: sinus rhythm with non specific ST changes. Echocardiogram 08/06/2018: normal systolic function, no valvular dysfunction, mildly elevated right sided pressures. Carotid duplex 07/19/2018: within normal. Stress test 08/15/2018: Lexiscan was injected, [address] depression in inferior leads and V4-6 that persisted about 4 minutes and resolved spontaneously. Perfusion images: fixed perfusion defect vs. artifact of the anterior septal wall. EF 89%. Assessment/Plan Active Problems: Coronary artery disease Chronic diastolic congestive heart failure (CMS/HCC) Shortness of breath Coronary artery disease involving [place] coronary artery of [place] heart with other form of an (more content not included)... Normal [facility] Basophils Auto (Bld) [#/Vol] on 11-14-2024 Basophils (Bld) [#/Vol] Automated basophil count 0.0-0.1 [facility] Basophils (Bld) [#/Vol] 0.0 10 3/uL 0.0-0.1 [facility] Basophils/100 WBC Auto (Bld) on 11-14-2024 Basophils/100 WBC (Bld) Automated basophil % 0.2-2.0 [facility] Basophils/100 WBC (Bld) 0.4 % 0.2-2.0 [facility] Eosinophils/100 WBC Auto (Bl d)on 11-14-2024 Eosinophils/100 WBC (Bld) Automated eosinophil % 0.9-7.0 [facility] Eosinophils/100 WBC (Bld) 4.6 % 0.9-7.0 [facility] Erythrocyte distribution wid th Auto (RBC) [Ratio]on 11-14-2024 Erythrocyte distribution width (RBC) [Ratio] Erythrocyte distribution width [Ratio] by Automated count 11.0-15.0 [facility] Erythrocyte distribution width (RBC) [Ratio] 13.4 % 11.0-15.0 [facility] Estimated glomerular filtrat ion rate (GFR) non- Americanon 11-14-2024 GFR/1.73 sq M.predicted among non-blacks MDRD (S/P/Bld) [Vol rate/Area] Estimated glomerular filtration rate (GFR) non- Low >=60 mL/min/1.7 3m 2 [facility] GFR/1.73 sq M.predicted among non-blacks MDRD (S/P/Bld) [Vol rate/Area] 48 mL/min/{1.73_m2} Low >=60 mL/min/1.7 3m 2 [facility] Hematocrit Auto (Bld) [Volum e fraction]on 11-14-2024 Hematocrit (Bld) [Volume fraction] Hematocrit [Volume Fraction] of Blood by Automated count 36.0-48.0 [facility] Hematocrit (Bld) [Volume fraction] 37.3 % 36.0-48.0 [facility] Hemoglobin [Mass/volume] in Bloodon 11-14-2024 Hemoglobin (Bld) [Mass/Vol] Hemoglobin [Mass/volume] in Blood 12.0-16.0 [facility] Hemoglobin (Bld) [Mass/Vol] 12.3 g/dL 12.0-16.0 [facility] Laboratory - Chemistry and C hemistry - challengeon 11-14-2024 Calcium [Mass/Vol] 9.5 mg/dL 8.5-10.1 [facility] Chloride [Moles/Vol] 107 mmol/L 98-107 [facility] CO2 [Moles/Vol] 27.0 mmol/L 21.0-32.0 [facility] Creatinine [Mass/Vol] 1.08 mg/dL High 0.55-1.02 [facility] GFR/1.73 sq M.predicted MDRD (S/P/Bld) [Vol rate/Area] 58 mL/min/{1.73_m2} Low >=60 mL/min/1.7 3m 2 [facility] Glucose [Mass/Vol] 139 mg/dL High 74-106 [facility] Potassium [Moles/Vol] 4.0 mmol/L 3.5-5.1 [facility] Sodium [Moles/Vol] 143 mmol/L 136-145 [facility] Urea nitrogen [Mass/Vol] 24.0 mg/dL High 7.0-18.0 [facility] Urea nitrogen/Creatinine [Mass ratio] 22.2 mg/mg [facility] Laboratory - Hematology and Cell countson 11-14-2024 Immature granulocytes/100 WBC (Bld) 0.3 % 0.0-0.5 [facility] Leukocytes [#/volume] correc katia for nucleated erythrocytes in Blood by Automated counon 11-14-2024 WBC corrected for nucl RBC Auto (Bld) [#/Vol] Leukocytes [#/volume] corrected for nucleated erythrocytes in Blood by Automated coun 4.0-11.0 [facility] WBC corrected for nucl RBC Auto (Bld) [#/Vol] 6.8 10 3/uL 4.0-11.0 [facility] Lymphocytes Auto (Bld) [#/Vo l]on 11-14-2024 Lymphocytes (Bld) [#/Vol] Lymphocytes [#/volume] in Blood by Automated count 1.2-3.8 [facility] Lymphocytes (Bld) [#/Vol] 1.2 10 3/uL 1.2-3.8 [facility] Lymphocytes/100 WBC Auto (Bl d)on 11-14-2024 Lymphocytes/100 WBC (Bld) Lymphocytes/100 leukocytes in Blood by Automated count Low 20.5-60.0 [facility] Lymphocytes/100 WBC (Bld) 18.2 % Low 20.5-60.0 [facility] MCH Auto (RBC) [Entitic mass ]on 11-14-2024 MCH (RBC) [Entitic mass] MCH [Entitic mass] by Automated count 26.7-34.0 [facility] MCH (RBC) [Entitic mass] 30.2 pg 26.7-34.0 [facility] MCHC Auto (RBC) [Mass/Vol]on 11-14-2024 MCHC (RBC) [Mass/Vol] MCHC [Mass/volume] by Automated count 29.9-35.2 [facility] MCHC (RBC) [Mass/Vol] 33.0 g/dL 29.9-35.2 [facility] MCV Auto (RBC) [Entitic vol] on 11-14-2024 MCV (RBC) [Entitic vol] MCV [Entitic volume] by Automated count 81.0-99.0 [facility] MCV (RBC) [Entitic vol] 91.6 fL 81.0-99.0 [facility] Monocytes Auto (Bld) [#/Vol] on 11-14-2024 Monocytes (Bld) [#/Vol] Automated blood monocyte count 0.3-0.8 [facility] Monocytes (Bld) [#/Vol] 0.7 10 3/uL 0.3-0.8 [facility] Monocytes/100 WBC Auto (Bld) on 11-14-2024 Monocytes/100 WBC (Bld) Automated monocyte % 1.7-12.0 [facility] Monocytes/100 WBC (Bld) 10.4 % 1.7-12.0 [facility] Neutrophils Auto (Bld) [#/Vo l]on 11-14-2024 Neutrophils (Bld) [#/Vol] Neutrophils [#/volume] in Blood by Automated count 1.4-6.5 [facility] Neutrophils (Bld) [#/Vol] 4.5 10 3/uL 1.4-6.5 [facility] Neutrophils/100 WBC Auto (Bl d)on 11-14-2024 Neutrophils/100 WBC (Bld) Automated neutrophil % 43.0-75.0 [facility] Neutrophils/100 WBC (Bld) 66.1 % 43.0-75.0 [facility] No Panel Informationon 11-14 Eosinophils # (Auto) 0.3 10 3/uL 0.0-0.7 [facility] Immature Granulocyte # (Auto) 0.02 10 3/uL 0.00-0.03 [facility] Orders Onlyon 11-14-2024 Orders Only [id number] Clari Gibbs 1940 F Date Provider Department Center 11/14/2024 BALA MORGAN CARD [facility] Family History Problem Relation Age of Onset No Known Problems Mother No Known Problems Father Hypertension Brother Family Status - Relation Status Age at Mother Father Brother Normal [facility] Platelet mean volume Auto (B ld) [Entitic vol]on 11-14-2024 Platelet mean volume (Bld) [Entitic vol] Platelet mean volume [Entitic volume] in Blood by Automated count 9.5-13.5 [facility] Platelet mean volume (Bld) [Entitic vol] 11.7 fL 9.5-13.5 [facility] Platelets Auto (Bld) [#/Vol] on 11-14-2024 Platelets (Bld) [#/Vol] Platelets [#/volume] in Blood by Automated count 150-450 [facility] Platelets (Bld) [#/Vol] 184 10 3/uL 150-450 [facility] RBC Auto (Bld) [#/Vol]on RBC (Bld) [#/Vol] Erythrocytes [#/volu me] in Blood by Automated count Low 4.20-5.40 [facility] RBC (Bld) [#/Vol] 4.07 10 6/uL Low 4.20-5.40 [facility] Serum or plasma anion gap de terminationon 11-14-2024 Anion gap [Moles/Vol] Serum or plasma an ion gap determination [facility] Anion gap [Moles/Vol] 13.0 mmol/L Fi [facility] Orders Onlyon 11-13-2024 Orders Only [id number] Clari Gibbs 1940 F Date Provider Department Center 11/13/2024 JANY PHIPPS [facility] Family History Problem Relation Age of Onset No Known Problems Mother No Known Problems Father Hypertension Brother Family Status - Relation Status Age at Mother Father Brother [facility] 3610-15-2024 36 Patient called me roland marquez to say she feels better and is breathing better, but still SOB. I could tell on the phone that she sounded less SOB. I LM with Marita in the lab to see if Dr. Zepeda had any openings for cath sooner than her originally scheduled cath on 11/21/2024. Told patient I would let her know if we could move her up. [facility] 3610-13-2024 36 Patient called c/o S OB. She could barely speak on the phone. Says she's been to [facility] ED twice the past 2 weeks and tests have been ok. Says they don't do anything for her in the ED. I recommended she go back and she refuses. I saw in Dr. Zepeda's office note from Jul 2024, it says she's taking furosemide PRN. Then from note in September 2024, says she's taking torsemide 20mg daily. Patient tells me now on the phone that she is not taking either of these, not even prn, because she has no LE edema. She was able to locate a bottle of furosemide 20mg tablets while we were on the phone. I asked her to take 2 of them right now, 1 tomorrow, and 1 on Sunday. I asked patient to call me back on Sunday to let me know if this has helped her breathing. I will see if her cath scheduled in November [address] Zepeda overheard this conversation with Nora and he is ok with this. Normal [facility] Telephoneon 10-13-2024 Telephone [id number] Clari Gibbs 1940 F Date Provider Department Center 10/13/2024 Gregorio-VIRI MAZARIEGOS Mone Jacques Family History Problem Relation Age of Onset No Known Problems Mother No Known Problems Father Hypertension Brother Family Status - Relation Status Age at Mother Father Brother Normal [facility] Basophils Auto (Bld) [#/Vol] on 10-09-2024 Basophils (Bld) [#/Vol] Automated basophil count 0.0-0.1 [facility] Basophils (Bld) [#/Vol] 0.0 10 3/uL 0.0-0.1 [facility] Basophils/100 WBC Auto (Bld) on 10-09-2024 Basophils/100 WBC (Bld) Automated basophil % 0.2-2.0 [facility] Basophils/100 WBC (Bld) 0.3 % 0.2-2.0 [facility] Eosinophils/100 WBC Auto (Bl d)on 10-09-2024 Eosinophils/100 WBC (Bld) Automated eosinophil % 0.9-7.0 [facility] Eosinophils/100 WBC (Bld) 1.8 % 0.9-7.0 [facility] Erythrocyte distribution wid th Auto (RBC) [Ratio]on 10-09-2024 Erythrocyte distribution width (RBC) [Ratio] Erythrocyte distribution width [Ratio] by Automated count 11.0-15.0 [facility] Erythrocyte distribution width (RBC) [Ratio] 12.7 % 11.0-15.0 [facility] Estimated glomerular filtrat ion rate (GFR) non- Americanon 10-09-2024 GFR/1.73 sq M.predicted among non-blacks MDRD (S/P/Bld) [Vol rate/Area] 48 mL/min/{1.73_m2} Low >=60 mL/min/1.7 3m 2 [facility] Fibrin D-dimer [Presence] in Platelet poor plasma by Latex agglutinationon 10-09-2024 Fibrin D-dimer LA Ql (PPP) Fibrin D-dimer [Presence] in Platelet poor plasma by Latex agglutination Critically high <=0.59 [facility] Comment on above: RESULTS CALLED TO DR Redd Winkler in D-Dimer concentration observed withthromboembolic events can be variable due to localization,size, and age of the thrombus. Therefore, a thromboembolicevent cannot be diagnosed with certainty on the basis of thereference range. D-Dimers may also be elevated for a varietyof disorders including advanced age, , coronarydisease, cancer, liver disease, infection, inflammation,hematoma, DIC, trauma, post-surgery, diabetes, thrombolyticor anticoagulant therapy, stress, and generalizedhospitalization. Fibrin D-dimer LA Ql (PPP) 1.17 mg/L FEU Critically high <=0.59 [facility] Comment on above: RESULTS CALLED TO DR Redd Winkler in D-Dimer concentration observed withthromboembolic events can be variable due to localization,size, and age of the thrombus. Therefore, a thromboembolicevent cannot be diagnosed with certainty on the basis of thereference range. D-Dimers may also be elevated for a varietyof disorders including advanced age, , coronarydisease, cancer, liver disease, infection, inflammation,hematoma, DIC, trauma, post-surgery, diabetes, thrombolyticor anticoagulant therapy, stress, and generalizedhospitalization. Globulin Calc (S) [Mass/Vol] on 10-09-2024 Globulin (S) [Mass/Vol] 4.3 g/dL [facility] Hematocrit Auto (Bld) [Volum e fraction]on 10-09-2024 Hematocrit (Bld) [Volume fraction] Hematocrit [Volume Fraction] of Blood by Automated count 36.0-48.0 [facility] Hematocrit (Bld) [Volume fraction] 36.7 % 36.0-48.0 [facility] Hemoglobin [Mass/volume] in Bloodon 10-09-2024 Hemoglobin (Bld) [Mass/Vol] Hemoglobin [Mass/volume] in Blood 12.0-16.0 [facility] Hemoglobin (Bld) [Mass/Vol] 12.0 g/dL 12.0-16.0 [facility] Laboratory - Chemistry and C hemistry - challengeon 10-09-2024 Albumin [Mass/Vol] 3.0 g/dL Low 3.4-5.0 [facility] ALP [Catalytic activity/Vol] 95 U/L 46-116 [facility] ALT [Catalytic activity/Vol] 28 U/L 14-59 [facility] AST [Catalytic activity/Vol] 25 U/L 15-37 [facility] Bilirubin [Mass/Vol] 0.5 mg/dL 0.2-1.0 [facility] Calcium [Mass/Vol] 8.7 mg/dL 8.5-10.1 [facility] Chloride [Moles/Vol] 110 mmol/L High 98-107 [facility] CO2 [Moles/Vol] 27.5 mmol/L 21.0-32.0 [facility] Creatinine [Mass/Vol] 1.09 mg/dL High 0.55-1.02 [facility] GFR/1.73 sq M.predicted MDRD (S/P/Bld) [Vol rate/Area] 58 mL/min/{1.73_m2} Low >=60 mL/min/1.7 3m 2 [facility] Glucose [Mass/Vol] 117 mg/dL High 74-106 [facility] Magnesium [Mass/Vol] 1.9 mg/dL 1.8-2.4 [facility] Natriuretic peptide B (Bld) [Mass/Vol] 1102.0 pg/mL <=1800.0 [facility] Potassium [Moles/Vol] 4.4 mmol/L 3.5-5.1 [facility] Protein [Mass/Vol] 7.3 g/dL 6.4-8.2 [facility] Sodium [Moles/Vol] 148 mmol/L High 136-145 [facility] Urea nitrogen [Mass/Vol] 22.0 mg/dL High 7.0-18.0 [facility] Urea nitrogen/Creatinine [Mass ratio] 20.2 mg/mg [facility] Laboratory - Hematology and Cell countson 10-09-2024 ESR (Bld) [Velocity] 120 mm/h High <=30 [facility] Immature granulocytes/100 WBC (Bld) 0.4 % 0.0-0.5 [facility] Leukocytes [#/volume] correc katia for nucleated erythrocytes in Blood by Automated counon 10-09-2024 WBC corrected for nucl RBC Auto (Bld) [#/Vol] Leukocytes [#/volume] corrected for nucleated erythrocytes in Blood by Automated coun High 4.0-11.0 [facility] WBC corrected for nucl RBC Auto (Bld) [#/Vol] 12.1 10 3/uL High 4.0-11.0 [facility] Lymphocytes Auto (Bld) [#/Vo l]on 10-09-2024 Lymphocytes (Bld) [#/Vol] Lymphocytes [#/volume] in Blood by Automated count Low 1.2-3.8 [facility] Lymphocytes (Bld) [#/Vol] 0.9 10 3/uL Low 1.2-3.8 [facility] Lymphocytes/100 WBC Auto (Bl d)on 10-09-2024 Lymphocytes/100 WBC (Bld) Lymphocytes/100 leukocytes in Blood by Automated count Low 20.5-60.0 [facility] Lymphocytes/100 WBC (Bld) 7.5 % Low 20.5-60.0 [facility] MCH Auto (RBC) [Entitic mass ]on 10-09-2024 MCH (RBC) [Entitic mass] MCH [Entitic mass] by Automated count 26.7-34.0 [facility] MCH (RBC) [Entitic mass] 29.9 pg 26.7-34.0 [facility] MCHC Auto (RBC) [Mass/Vol]on 10-09-2024 MCHC (RBC) [Mass/Vol] MCHC [Mass/volume] by Automated count 29.9-35.2 [facility] MCHC (RBC) [Mass/Vol] 32.7 g/dL 29.9-35.2 [facility] MCV Auto (RBC) [Entitic vol] on 10-09-2024 MCV (RBC) [Entitic vol] MCV [Entitic volume] by Automated count 81.0-99.0 [facility] MCV (RBC) [Entitic vol] 91.3 fL 81.0-99.0 [facility] Monocytes Auto (Bld) [#/Vol] on 10-09-2024 Monocytes (Bld) [#/Vol] Automated blood monocyte count High 0.3-0.8 [facility] Monocytes (Bld) [#/Vol] 1.1 10 3/uL High 0.3-0.8 [facility] Monocytes/100 WBC Auto (Bld) on 10-09-2024 Monocytes/100 WBC (Bld) Automated monocyte % 1.7-12.0 [facility] Monocytes/100 WBC (Bld) 8.9 % 1.7-12.0 [facility] Neutrophils Auto (Bld) [#/Vo l]on 10-09-2024 Neutrophils (Bld) [#/Vol] Neutrophils [#/volume] in Blood by Automated count High 1.4-6.5 [facility] Neutrophils (Bld) [#/Vol] 9.8 10 3/uL High 1.4-6.5 [facility] Neutrophils/100 WBC Auto (Bl d)on 10-09-2024 Neutrophils/100 WBC (Bld) Automated neutrophil % High 43.0-75.0 [facility] Neutrophils/100 WBC (Bld) 81.1 % High 43.0-75.0 [facility] No Panel Informationon 10-09 Eosinophils # (Auto) 0.2 10 3/uL 0.0-0.7 [facility] Immature Granulocyte # (Auto) 0.05 10 3/uL High 0.00-0.03 [facility] Troponin I High Sensitivity 8.0 pg/mL 4.0-51.3 [facility] Comment on above: CUT-OFF POINTS HAVE BEEN ESTABLISHED BASED ON THE FOURTHUNIVERSAL DEFINITION OF MYOCARDIAL INFARCTION. THE UPPERREFERENCE LIMIT (URL) OF TROPONIN, DEFINED THE 99THPERCENTILE OF cTnI DISTRIBUTION IN A REFERENCE POPULATION,HAS BEEN CONFIRMED THE DECISION THRESHOLD FOR MIDIAGNOSIS.99TH PERCENTILE = 51.4 PG/MLNOTE: HIGH-SENSITIVITY TROPONIN ASSAY IS NOT INTENDED TO BEUSED IN ISOLATION BUT SHOULD BE INTERPRETED IN CONJUNCTIONWITH OTHER DIAGNOSTIC AND CLINICAL INFORMATION. Venous Blood Partial Pressure CO2 38.8 mm[Hg] Low 40.0-52.0 [facility] Venous Blood pH 7.429 7.330-7.43 0 [facility] Platelet mean volume Auto (B ld) [Entitic vol]on 10-09-2024 Platelet mean volume (Bld) [Entitic vol] Platelet mean volume [Entitic volume] in Blood by Automated count 9.5-13.5 [facility] Platelet mean volume (Bld) [Entitic vol] 10.4 fL 9.5-13.5 [facility] Platelets Auto (Bld) [#/Vol] on 10-09-2024 Platelets (Bld) [#/Vol] Platelets [#/volume] in Blood by Automated count 150-450 [facility] Platelets (Bld) [#/Vol] 240 10 3/uL 150-450 [facility] RBC Auto (Bld) [#/Vol]on RBC (Bld) [#/Vol] Erythrocytes [#/volu me] in Blood by Automated count Low 4.20-5.40 [facility] RBC (Bld) [#/Vol] 4.02 10 6/uL Low 4.20-5.40 [facility] Serum or plasma albumin/glob ulin mass ratioon 10-09-2024 Albumin/Globulin [Mass ratio] 0.7 {ratio} [facility] Serum or plasma anion gap de terminationon 10-09-2024 Anion gap [Moles/Vol] 14.9 [facility] Basophils Auto (Bld) [#/Vol] on 10-04-2024 Basophils (Bld) [#/Vol] Automated basophil count 0.0-0.1 [facility] Basophils (Bld) [#/Vol] 0.0 10 3/uL 0.0-0.1 [facility] Basophils/100 WBC Auto (Bld) on 10-04-2024 Basophils/100 WBC (Bld) Automated basophil % 0.2-2.0 [facility] Basophils/100 WBC (Bld) 0.2 % 0.2-2.0 [facility] Eosinophils/100 WBC Auto (Bl d)on 10-04-2024 Eosinophils/100 WBC (Bld) Automated eosinophil % 0.9-7.0 [facility] Eosinophils/100 WBC (Bld) 1.5 % 0.9-7.0 [facility] Erythrocyte distribution wid th Auto (RBC) [Ratio]on 10-04-2024 Erythrocyte distribution width (RBC) [Ratio] Erythrocyte distribution width [Ratio] by Automated count 11.0-15.0 [facility] Erythrocyte distribution width (RBC) [Ratio] 13.1 % 11.0-15.0 [facility] Estimated glomerular filtrat ion rate (GFR) non- Americanon 10-04-2024 GFR/1.73 sq M.predicted among non-blacks MDRD (S/P/Bld) [Vol rate/Area] Estimated glomerular filtration rate (GFR) non- Low >=60 mL/min/1.7 3m 2 [facility] GFR/1.73 sq M.predicted among non-blacks MDRD (S/P/Bld) [Vol rate/Area] 36 mL/min/{1.73_m2} Low >=60 mL/min/1.7 3m 2 [facility] Hematocrit Auto (Bld) [Volum e fraction]on 10-04-2024 Hematocrit (Bld) [Volume fraction] Hematocrit [Volume Fraction] of Blood by Automated count 36.0-48.0 [facility] Hematocrit (Bld) [Volume fraction] 38.3 % 36.0-48.0 [facility] Hemoglobin [Mass/volume] in Bloodon 10-04-2024 Hemoglobin (Bld) [Mass/Vol] Hemoglobin [Mass/volume] in Blood 12.0-16.0 [facility] Hemoglobin (Bld) [Mass/Vol] 12.4 g/dL 12.0-16.0 [facility] Laboratory - Chemistry and C hemistry - challengeon 10-04-2024 Calcium [Mass/Vol] 9.3 mg/dL 8.5-10.1 [facility] Chloride [Moles/Vol] 103 mmol/L 98-107 [facility] CO2 [Moles/Vol] 28.5 mmol/L 21.0-32.0 [facility] Creatinine [Mass/Vol] 1.38 mg/dL High 0.55-1.02 [facility] GFR/1.73 sq M.predicted MDRD (S/P/Bld) [Vol rate/Area] 44 mL/min/{1.73_m2} Low >=60 mL/min/1.7 3m 2 [facility] Glucose [Mass/Vol] 145 mg/dL High 74-106 [facility] Natriuretic peptide B (Bld) [Mass/Vol] 496.0 pg/mL <=1800.0 [facility] Potassium [Moles/Vol] 4.2 mmol/L 3.5-5.1 [facility] Sodium [Moles/Vol] 141 mmol/L 136-145 [facility] Urea nitrogen [Mass/Vol] 24.0 mg/dL High 7.0-18.0 [facility] Urea nitrogen/Creatinine [Mass ratio] 17.4 mg/mg [facility] Laboratory - Hematology and Cell countson 10-04-2024 Immature granulocytes/100 WBC (Bld) 0.3 % 0.0-0.5 [facility] Laboratory - Microbiology an d Antimicrobial susceptibilityon 10-04-2024 S. pyogenes Ag Ql (Unsp spec) Negative [facility] SARS-CoV-2 (COVID-19) RNA TOMMY+probe Ql (Unsp spec) Negative NEGATIVE [facility] Comment on above: This test has not be en FDA cleared or approved, but has beenauthorized by the FDA under an Emergency Use Authorization(EUA) for use by authorized laboratories certified underIA that meet the requirements to perform moderate or highcomplexity testing. This test has been authorized only forthe detection of proteins from SARS-CoV-2, not for any otherviruses or pathogens. The emergency use of this test isauthorized for the duration of the declaration thatcircumstances exist justifying the authorization ofemergency use of in vitro diagnostic tests for detectionand/or diagnosis of Covid-19 under section 564(b)(1) of theAct, 21 U.S.C. 360bbb-3(b)(1), unless the declaration isterminated or authorization is revoked sooner. Leukocytes [#/volume] correc katia for nucleated erythrocytes in Blood by Automated counon 10-04-2024 WBC corrected for nucl RBC Auto (Bld) [#/Vol] Leukocytes [#/volume] corrected for nucleated erythrocytes in Blood by Automated coun High 4.0-11.0 [facility] WBC corrected for nucl RBC Auto (Bld) [#/Vol] 12.3 10 3/uL High 4.0-11.0 [facility] Lymphocytes Auto (Bld) [#/Vo l]on 10-04-2024 Lymphocytes (Bld) [#/Vol] Lymphocytes [#/volume] in Blood by Automated count 1.2-3.8 [facility] Lymphocytes (Bld) [#/Vol] 1.3 10 3/uL 1.2-3.8 [facility] Lymphocytes/100 WBC Auto (Bl d)on 10-04-2024 Lymphocytes/100 WBC (Bld) Lymphocytes/100 leukocytes in Blood by Automated count Low 20.5-60.0 [facility] Lymphocytes/100 WBC (Bld) 10.7 % Low 20.5-60.0 [facility] MCH Auto (RBC) [Entitic mass ]on 10-04-2024 MCH (RBC) [Entitic mass] MCH [Entitic mass] by Automated count 26.7-34.0 [facility] MCH (RBC) [Entitic mass] 30.0 pg 26.7-34.0 [facility] MCHC Auto (RBC) [Mass/Vol]on 10-04-2024 MCHC (RBC) [Mass/Vol] MCHC [Mass/volume] by Automated count 29.9-35.2 [facility] MCHC (RBC) [Mass/Vol] 32.4 g/dL 29.9-35.2 [facility] MCV Auto (RBC) [Entitic vol] on 10-04-2024 MCV (RBC) [Entitic vol] MCV [Entitic volume] by Automated count 81.0-99.0 [facility] MCV (RBC) [Entitic vol] 92.7 fL 81.0-99.0 [facility] Monocytes Auto (Bld) [#/Vol] on 10-04-2024 Monocytes (Bld) [#/Vol] Automated blood monocyte count High 0.3-0.8 [facility] Monocytes (Bld) [#/Vol] 1.4 10 3/uL High 0.3-0.8 [facility] Monocytes/100 WBC Auto (Bld) on 10-04-2024 Monocytes/100 WBC (Bld) Automated monocyte % 1.7-12.0 [facility] Monocytes/100 WBC (Bld) 11.5 % 1.7-12.0 [facility] Neutrophils Auto (Bld) [#/Vo l]on 10-04-2024 Neutrophils (Bld) [#/Vol] Neutrophils [#/volume] in Blood by Automated count High 1.4-6.5 [facility] Neutrophils (Bld) [#/Vol] 9.3 10 3/uL High 1.4-6.5 [facility] Neutrophils/100 WBC Auto (Bl d)on 10-04-2024 Neutrophils/100 WBC (Bld) Automated neutrophil % High 43.0-75.0 [facility] Neutrophils/100 WBC (Bld) 75.8 % High 43.0-75.0 [facility] No Panel Informationon 10-04 Bedside Influenza Type A Antigen Negative [facility] Comment on above: Negative for Flu A p rotein antigen. Infection due to Flu Acannot be ruled out. Flu A antigen in the sample may bebelow the detection limit of the test. Bedside Influenza Type B Antigen Negative [facility] Comment on above: Negative for Flu B p rotein antigen. Infection due to Flu Bcannot be ruled out. Flu B antigen in the sample may bebelow the detection limit of the test. Eosinophils # (Auto) 0.2 10 3/uL 0.0-0.7 [facility] Immature Granulocyte # (Auto) 0.04 10 3/uL High 0.00-0.03 [facility] Troponin I High Sensitivity 5.2 pg/mL 4.0-51.3 [facility] Comment on above: CUT-OFF POINTS HAVE BEEN ESTABLISHED BASED ON THE FOURTHUNIVERSAL DEFINITION OF MYOCARDIAL INFARCTION. THE UPPERREFERENCE LIMIT (URL) OF TROPONIN, DEFINED THE 99THPERCENTILE OF cTnI DISTRIBUTION IN A REFERENCE POPULATION,HAS BEEN CONFIRMED THE DECISION THRESHOLD FOR MIDIAGNOSIS.99TH PERCENTILE = 51.4 PG/MLNOTE: HIGH-SENSITIVITY TROPONIN ASSAY IS NOT INTENDED TO BEUSED IN ISOLATION BUT SHOULD BE INTERPRETED IN CONJUNCTIONWITH OTHER DIAGNOSTIC AND CLINICAL INFORMATION. Platelet mean volume Auto (B ld) [Entitic vol]on 10-04-2024 Platelet mean volume (Bld) [Entitic vol] Platelet mean volume [Entitic volume] in Blood by Automated count 9.5-13.5 [facility] Platelet mean volume (Bld) [Entitic vol] 11.5 fL 9.5-13.5 [facility] Platelets Auto (Bld) [#/Vol] on 10-04-2024 Platelets (Bld) [#/Vol] Platelets [#/volume] in Blood by Automated count 150-450 [facility] Platelets (Bld) [#/Vol] 186 10 3/uL 150-450 [facility] RBC Auto (Bld) [#/Vol]on RBC (Bld) [#/Vol] Erythrocytes [#/volu me] in Blood by Automated count Low 4.20-5.40 [facility] RBC (Bld) [#/Vol] 4.13 10 6/uL Low 4.20-5.40 [facility] Serum or plasma anion gap de terminationon 10-04-2024 Anion gap [Moles/Vol] Serum or plasma an ion gap determination [facility] Anion gap [Moles/Vol] 13.7 mmol/L [facility] Office Visiton 09-26-2024 Follow-up visit [id number] Clari Gibbs ty L 1940 F Date Provider Department Center 09/26/2024 BALA MORGAN EMIL Jacques Family History Problem Relation Age of Onset No Known Problems Mother No Known Problems Father Hypertension Brother Family Status - Relation Status Age at Mother Father Brother Level of Service:08574 MD OFFICE/OUTPATIENT ESTABLISHED HIGH MDM 40 MIN Normal [facility] Office Visiton 07-21-2024 Follow-up visit [id number] Clari Gibbs ty L 1940 F Date Provider Department Center 07/21/2024 BALA MORGAN Family History Problem Relation Age of Onset No Known Problems Mother No Known Problems Father Family Status - Relation Status Age at Mother Father Level of Service:75590 MD OFFICE/OUTPATIENT ESTABLISHED MOD MDM 30 MIN Normal [facility] Basophils Auto (Bld) [#/Vol] on 05-27-2024 Basophils (Bld) [#/Vol] Automated basophil count 0.0-0.1 [facility] Basophils/100 WBC Auto (Bld) on 05-27-2024 Basophils/100 WBC (Bld) Automated basophil % 0.2-2.0 [facility] Cholesterol in LDL Calc [Mas s/Vol]on 05-27-2024 Cholesterol in LDL [Mass/Vol] Cholesterol in LDL [Mass/volume] in Serum or Plasma by calculation [facility] Comment on above: <100 mg/dl [id number] 0-129 mg/dl NEAR OR ABOVE [id number] mg/dl BORDERLINE [id number] mg/dl HIGH>190 mg/dl VERY HIGH Cholesterol in VLDL Calc [Ma ss/Vol]on 05-27-2024 Cholesterol in VLDL [Mass/Vol] Cholesterol in VLDL [Mass/volume] in Serum or Plasma by calculation [facility] Eosinophils/100 WBC Auto (Bl d)on 05-27-2024 Eosinophils/100 WBC (Bld) Automated eosinophil % 0.9-7.0 [facility] Erythrocyte distribution wid th Auto (RBC) [Ratio]on 05-27-2024 Erythrocyte distribution width (RBC) [Ratio] Erythrocyte distribution width [Ratio] by Automated count 11.0-15.0 [facility] Estimated glomerular filtrat ion rate (GFR) non- Americanon 05-27-2024 GFR/1.73 sq M.predicted among non-blacks MDRD (S/P/Bld) [Vol rate/Area] Estimated glomerular filtration rate (GFR) non- Low >=60 mL/min/1.7 3m 2 [facility] Globulin Calc (S) [Mass/Vol] on 05-27-2024 Globulin (S) [Mass/Vol] Serum globulin measurement by calculation (mass/volume) [facility] Hematocrit Auto (Bld) [Volum e fraction]on 05-27-2024 Hematocrit (Bld) [Volume fraction] Hematocrit [Volume Fraction] of Blood by Automated count 36.0-48.0 [facility] Hemoglobin [Mass/volume] in Bloodon 05-27-2024 Hemoglobin (Bld) [Mass/Vol] Hemoglobin [Mass/volume] in Blood 12.0-16.0 [facility] Laboratory - Chemistry and C hemistry - challengeon 05-27-2024 Albumin [Mass/Vol] 3.4 g/dL 3.4-5.0 [facility] ALP [Catalytic activity/Vol] 103 U/L 46-116 [facility] ALT [Catalytic activity/Vol] 24 U/L 14-59 [facility] AST [Catalytic activity/Vol] 25 U/L 15-37 [facility] Bilirubin [Mass/Vol] 0.3 mg/dL 0.2-1.0 [facility] Calcium [Mass/Vol] 9.1 mg/dL 8.5-10.1 [facility] Chloride [Moles/Vol] 108 mmol/L High 98-107 [facility] Cholesterol [Mass/Vol] 122 mg/dL <=200 [facility] Cholesterol in HDL [Mass/Vol] 58 mg/dL 40-60 [facility] Comment on above: > or =60 mg/dl - LOW CARDIOVASCULAR RISK<40 mg/dl - HIGH CARDIOVASCULAR RISK CO2 [Moles/Vol] 26.2 mmol/L 21.0-32.0 [facility] Creatinine [Mass/Vol] 1.16 mg/dL High 0.55-1.02 [facility] GFR/1.73 sq M.predicted MDRD (S/P/Bld) [Vol rate/Area] 54 mL/min/{1.73_m2} Low >=60 mL/min/1.7 3m 2 [facility] Glucose [Mass/Vol] 105 mg/dL 74-106 [facility] Potassium [Moles/Vol] 4.2 mmol/L 3.5-5.1 [facility] Protein [Mass/Vol] 7.0 g/dL 6.4-8.2 [facility] Sodium [Moles/Vol] 142 mmol/L 136-145 [facility] Triglyceride [Mass/Vol] 154 mg/dL High <=150 [facility] TSH Qn 0.650 m[IU]/L 0.358-3.74 0 [facility] Urea nitrogen [Mass/Vol] 15.0 mg/dL 7.0-18.0 [facility] Urea nitrogen/Creatinine [Mass ratio] 12.9 mg/mg [facility] Laboratory - Hematology and Cell countson 05-27-2024 Immature granulocytes/100 WBC (Bld) 0.2 % 0.0-0.5 [facility] Leukocytes [#/volume] correc katia for nucleated erythrocytes in Blood by Automated counon 05-27-2024 WBC corrected for nucl RBC Auto (Bld) [#/Vol] Leukocytes [#/volume] corrected for nucleated erythrocytes in Blood by Automated coun 4.0-11.0 [facility] Lymphocytes Auto (Bld) [#/Vo l]on 05-27-2024 Lymphocytes (Bld) [#/Vol] Lymphocytes [#/volume] in Blood by Automated count 1.2-3.8 [facility] Lymphocytes/100 WBC Auto (Bl d)on 05-27-2024 Lymphocytes/100 WBC (Bld) Lymphocytes/100 leukocytes in Blood by Automated count Low 20.5-60.0 [facility] MCH Auto (RBC) [Entitic mass ]on 05-27-2024 MCH (RBC) [Entitic mass] MCH [Entitic mass] by Automated count 26.7-34.0 [facility] MCHC Auto (RBC) [Mass/Vol]on 05-27-2024 MCHC (RBC) [Mass/Vol] MCHC [Mass/volume] by Automated count 29.9-35.2 [facility] MCV Auto (RBC) [Entitic vol] on 05-27-2024 MCV (RBC) [Entitic vol] MCV [Entitic volume] by Automated count 81.0-99.0 [facility] Monocytes Auto (Bld) [#/Vol] on 05-27-2024 Monocytes (Bld) [#/Vol] Automated blood monocyte count High 0.3-0.8 [facility] Monocytes/100 WBC Auto (Bld) on 05-27-2024 Monocytes/100 WBC (Bld) Automated monocyte % 1.7-12.0 [facility] Neutrophils Auto (Bld) [#/Vo l]on 05-27-2024 Neutrophils (Bld) [#/Vol] Neutrophils [#/volume] in Blood by Automated count 1.4-6.5 [facility] Neutrophils/100 WBC Auto (Bl d)on 05-27-2024 Neutrophils/100 WBC (Bld) Automated neutrophil % 43.0-75.0 [facility] No Panel Informationon 05-27 Eosinophils # (Auto) 0.2 10 3/uL 0.0-0.7 [facility] Immature Granulocyte # (Auto) 0.02 10 3/uL 0.00-0.03 [facility] Platelet mean volume Auto (B ld) [Entitic vol]on 05-27-2024 Platelet mean volume (Bld) [Entitic vol] Platelet mean volume [Entitic volume] in Blood by Automated count 9.5-13.5 [facility] Platelets Auto (Bld) [#/Vol] on 05-27-2024 Platelets (Bld) [#/Vol] Platelets [#/volume] in Blood by Automated count 150-450 [facility] RBC Auto (Bld) [#/Vol]on RBC (Bld) [#/Vol] Erythrocytes [#/volu me] in Blood by Automated count Low 4.20-5.40 [facility] Serum or plasma albumin/glob ulin mass ratioon 05-27-2024 Albumin/Globulin [Mass ratio] Serum or plasma albumin/globulin mass ratio [facility] Serum or plasma anion gap de terminationon 05-27-2024 Anion gap [Moles/Vol] Serum or plasma an ion gap determination [facility] Serum or plasma total choles terol/high density lipoprotein (HDL) cholesterol mass bernie 05-27-2024 Cholesterol.total/Chol esterol in HDL [Mass ratio] Serum or plasma total cholesterol/high density lipoprotein (HDL) cholesterol mass rat [facility] Comment on above: 3.3 - 4.4 LOW RISK4. 4 - 7.1 AVERAGE RISK7.1 - 11.0 MODERATE RISK>11.0 HIGH RISK Office Visiton 03-19-2024 Follow-up visit [id number] Clari Gibbs 1940 F Date Provider Department Center 03/19/2024 STEFANIE RUIZ C[facility] Family History Problem Relation Age of Onset No Known Problems Mother No Known Problems Father Family Status - Relation Status Age at Mother Father Level of Service:55022 MD OFFICE/OUTPATIENT ESTABLISHED MOD MDM 30 MIN Reason for Visit and Comments: Coronary Artery Disease [187] Congestive Heart Failure [127] Hypertension [598555] Normal [facility] Hemoglobin [Mass/volume] in Bloodon 02-25-2024 Hemoglobin (Bld) [Mass/Vol] 12.6 g/dL 12.0-16.0 [facility] Hemoglobin (Bld) [Mass/Vol] Hemoglobin [Mass/volume] in Blood 12.0-16.0 [facility] Estimated glomerular filtrat ion rate (GFR) non- Americanon 01-24-2024 GFR/1.73 sq M.predicted among non-blacks MDRD (S/P/Bld) [Vol rate/Area] 48 mL/min/{1.73_m2} Low >=60 [facility] Laboratory - Chemistry and C hemistry - challengeon 01-24-2024 Calcium [Mass/Vol] 9.4 mg/dL 8.5-10.1 [facility] Chloride [Moles/Vol] 109 mmol/L High 98-107 [facility] CO2 [Moles/Vol] 22.4 mmol/L 21.0-32.0 [facility] Creatinine [Mass/Vol] 1.09 mg/dL High 0.55-1.02 [facility] GFR/1.73 sq M.predicted MDRD (S/P/Bld) [Vol rate/Area] 58 mL/min/{1.73_m2} Low >=60 [facility] Glucose [Mass/Vol] 97 mg/dL 74-106 [facility] Potassium [Moles/Vol] 4.6 mmol/L 3.5-5.1 [facility] Sodium [Moles/Vol] 143 mmol/L 136-145 [facility] Urea nitrogen [Mass/Vol] 23.0 mg/dL High 7.0-18.0 [facility] Urea nitrogen/Creatinine [Mass ratio] 21.1 mg/mg [facility] Serum or plasma anion gap de terminationon 01-24-2024 Anion gap [Moles/Vol] 16.2 mmol/L [facility] 2901-23-2024 29 Addended by: VIRI MAZARIEGOS on: 01/23/2024 04:03 PM Modules accepted: Orders [facility] 3601-23-2024 36 Spoke with patient a nd made her aware. She will have repeat BMP within the next few days. Order faxed to [facility]. Normal [facility] 36on 01-17-2024 36 I reviewed the blood pressure readings and the blood test from 01/17/2024. Blood pressure is better. Renal function is improving. Still not at baseline. Please ask her to continue to hold diuretics. She should get BMP in 1 week. [facility] Estimated glomerular filtrat ion rate (GFR) non- Americanon 01-17-2024 GFR/1.73 sq M.predicted among non-blacks MDRD (S/P/Bld) [Vol rate/Area] 36 mL/min/{1.73_m2} Low >=60 [facility] Laboratory - Chemistry and C hemistry - challengeon 01-17-2024 Calcium [Mass/Vol] 9.5 mg/dL 8.5-10.1 [facility] Chloride [Moles/Vol] 108 mmol/L High 98-107 [facility] CO2 [Moles/Vol] 22.3 mmol/L 21.0-32.0 [facility] Creatinine [Mass/Vol] 1.40 mg/dL High 0.55-1.02 [facility] GFR/1.73 sq M.predicted MDRD (S/P/Bld) [Vol rate/Area] 43 mL/min/{1.73_m2} Low >=60 [facility] Glucose [Mass/Vol] 133 mg/dL High 74-106 [facility] Potassium [Moles/Vol] 4.8 mmol/L 3.5-5.1 [facility] Sodium [Moles/Vol] 141 mmol/L 136-145 [facility] Urea nitrogen [Mass/Vol] 55.0 mg/dL High 7.0-18.0 [facility] Urea nitrogen/Creatinine [Mass ratio] 39.3 mg/mg [facility] Serum or plasma anion gap de terminationon 01-17-2024 Anion gap [Moles/Vol] 15.5 mmol/L [facility] Telephoneon 01-17-2024 Telephone [id number] Clari Gibbs L 1940 F Date Provider Department [place] 01/17/2024 Cherelle-BALA ZEPEDA CARD [facility] Family History Problem Relation Age of Onset No Known Problems Mother No Known Problems Father Family Status - Relation Status Age at Mother Father [facility] 36on 01-15-2024 36 Spoke with patient a nd told her I faxed BMP order to [facility]. She will have it drawn on she said. Normal [facility] Estimated glomerular filtrat ion rate (GFR) non- Americanon 01-14-2024 GFR/1.73 sq M.predicted among non-blacks MDRD (S/P/Bld) [Vol rate/Area] 22 mL/min/{1.73_m2} Low >=60 [facility] Laboratory - Chemistry and C hemistry - challengeon 01-14-2024 Calcium [Mass/Vol] 9.2 mg/dL 8.5-10.1 [facility] Chloride [Moles/Vol] 105 mmol/L 98-107 [facility] CO2 [Moles/Vol] 22.6 mmol/L 21.0-32.0 [facility] Creatinine [Mass/Vol] 2.10 mg/dL High 0.55-1.02 [facility] GFR/1.73 sq M.predicted MDRD (S/P/Bld) [Vol rate/Area] 27 mL/min/{1.73_m2} Low >=60 [facility] Glucose [Mass/Vol] 126 mg/dL High 74-106 [facility] Potassium [Moles/Vol] 5.2 mmol/L High 3.5-5.1 [facility] Sodium [Moles/Vol] 140 mmol/L 136-145 [facility] Urea nitrogen [Mass/Vol] 76.0 mg/dL High 7.0-18.0 [facility] Comment on above: RESULTS CALLED TO AN ELENO MANDEL @BY Gemini Carpenter at 1334 Urea nitrogen/Creatinine [Mass ratio] 36.2 mg/mg [facility] Serum or plasma anion gap de terminationon 01-14-2024 Anion gap [Moles/Vol] 17.6 mmol/L [facility] Telephoneon 01-14-2024 Telephone [id number] Clari Gibbs 1940 F Date Provider Department Center 01/14/2024 SONA LINDER CARD [facility] Family History Problem Relation Age of Onset No Known Problems Mother No Known Problems Father Family Status - Relation Status Age at Mother Father Normal [facility] US venous duplex LE BIon US venous duplex LE BI [facility] [place] [address] Ultrasound Report Signed Patient: Nora Gibbs MR#: [id number] : 1940 Acct:[id number] Age/Sex: 83 / F ADM Date: 11/30/23 Loc: Room: [address] [place] [address] Type: DIS INOo Attending Dr: Jim Clay [...] Joe Moscoso MD12/03/2023 3:59 PM Dictation Location: [place] [address] Tech: Bettycolumba Mccarty Transcribed By: ALEXANDER 12/03/231558 Dictated By: Joe Moscoso MD 12/03/231557 Signed By: 12/03/231558 Normal [facility] A1C with Estimated Average G gary 12-01-2023 Glucose [Mass/Vol] 137 mg/dL Normal [facility] Comment on above: Result Comment: PERF ORMED BY: [place] [address] PATHOLOGIST HANDLE AND VENT MACHINE OPERATOR JUDY RASMUSSEN M.D. Performed By: #### L IPID, HS TROP, A1C WTH eA, MG, BMP, CBC ####[place] [id number] [facility] Automated basophil %Ordered By: Jim Clay on 12-01-2023 Basophils/100 WBC (Bld) 0.8 % . [facility] Comment on above: Performed By: #### L IPID, HS TROP, A1C WTH eA, MG, BMP, CBC ####[place] [id number] [facility] Automated basophil countOrde red By: Jim Clay on 12-01-2023 Basophils (Bld) [#/Vol] 0.0 10*3/uL 0.0-0.2 [facility] Comment on above: Result Comment: PERF ORMED BY: [facility] [address] [place] [address] PATHOLOGIST HANDLE AND VENT MACHINE OPERATOR JUDY RASMUSSEN M.D. Performed By: #### L IPID, HS TROP, A1C WTH eA, MG, BMP, CBC ####[place] [id number] [facility] Automated blood monocyte cou ntOrdered By: Jim Clay on 12-01-2023 Monocytes (Bld) [#/Vol] 0.7 10*3/uL 0.0-0.8 [facility] Comment on above: Performed By: #### L IPID, HS TROP, A1C WTH eA, MG, BMP, CBC ####[address] [address] [place] Automated eosinophil %Ordere d By: Jim Clay on 12-01-2023 Eosinophils/100 WBC (Bld) 2.8 % . [facility] Comment on above: Performed By: #### L IPID, HS TROP, A1C WTH eA, MG, BMP, CBC ####[address] Automated eosinophil countOr dered By: Jim Clay on 12-01-2023 Eosinophils (Bld) [#/Vol] 0.2 10*3/uL 0.0-0.45 [facility] Comment on above: Performed By: #### L IPID, HS TROP, A1C WTH eA, MG, BMP, CBC ####[address] Automated monocyte %Ordered By: Jim Clay on 12-01-2023 Monocytes/100 WBC (Bld) 11.5 % . [facility] Comment on above: Performed By: #### L IPID, HS TROP, A1C WTH eA, MG, BMP, CBC ####[address] Automated neutrophil %Ordere d By: Jim Clay on 12-01-2023 Neutrophils/100 WBC (Bld) 62.6 % . [facility] Comment on above: Performed By: #### L IPID, HS TROP, A1C WTH eA, MG, BMP, CBC ####[address] Basic Metabolic Panelon 11-10 Creatinine Clr Calc Pharmacy 47.06 Normal [facility] Comment on above: Performed By: #### L IPID, HS TROP, A1C WTH eA, MG, BMP, CBC ####[address] GFR/1.73 sq M.predicted MDRD (S/P/Bld) [Vol rate/Area] mL/min/{1.73_m2} Normal [facility] Comment on above: Performed By: #### L IPID, HS TROP, A1C WTH eA, MG, BMP, CBC ####[address] [address] [place] Calcium [Mass/volume] in Ser um or PlasmaOrdered By: Jim Clay on 12-01-2023 Calcium [Mass/Vol] 8.7 mg/dL 8.6-10.3 [facility] Comment on above: Performed By: #### L IPID, HS TROP, A1C WTH eA, MG, BMP, CBC ####[address] [address] [facility] Carbon dioxide, total [Moles /volume] in Serum or PlasmaOrdered By: Jim Clay on 12-01-2023 CO2 [Moles/Vol] 22.8 mmol/L 21.0-31.0 [facility] Comment on above: Performed By: #### L IPID, HS TROP, A1C WTH eA, MG, BMP, CBC ####[place] [id number] [place] Chloride [Moles/volume] in S tyron or PlasmaOrdered By: Jim Clay on 12-01-2023 Chloride [Moles/Vol] 112 mmol/L High 98-107 [facility] Comment on above: Performed By: #### L IPID, HS TROP, A1C WTH eA, MG, BMP, CBC ####[place] [id number] [facility] Cholesterol [Mass/volume] in Serum or PlasmaOrdered By: Jim Clay on 12-01-2023 Cholesterol [Mass/Vol] 109 mg/dL Low 140-200 [facility] Comment on above: Chol less than 200 m g/dl low riskChol 201-239 mg/dl borderline riskChol 240 mg/dl and greater high risk Result Comment: Chol less than 200 mg/dl low risk Chol 201-239 mg/dl borderline risk Chol 240 mg/dl and greater high risk Performed By: #### L IPID, HS TROP, A1C WTH eA, MG, BMP, CBC ####[place] [id number] [place] Cholesterol in LDL Calc [Mas s/Vol]Ordered By: Jim Clay on 12-01-2023 Cholesterol in LDL [Mass/Vol] 37 mg/dL 0-100 [facility] Comment on above: LDL ATP III CLASSIFI CATIONLDL less than 100 mg/dL OptimalLDL 100-129 mg/dL Near or above optimalLDL 130-159 mg/dL Borderline highLDL 160-189 mg/dL HighLDL greater than 189 mg/dL Very high Cholesterol in VLDL Calc [Ma ss/Vol]Ordered By: Jim lCay on 12-01-2023 Cholesterol in VLDL [Mass/Vol] 34 mg/dL [facility] Complete Blood Count Auto Di ffon 12-01-2023 Mean Corpuscular HGB Conc 33.4 g/dL Normal 32.0-35.0 [facility] Comment on above: Performed By: #### L IPID, HS TROP, A1C WTH eA, MG, BMP, CBC ####[facility] [address] [place] [address] [facility] NRBC% 0.1 /100{WBC} Normal 0-0.5 [facility] Comment on above: Performed By: #### L IPID, HS TROP, A1C WTH eA, MG, BMP, CBC ####[place] [address] [place] [address] [facility] Creatinine [Mass/volume] in Serum or PlasmaOrdered By: Jim Clay on 12-01-2023 Creatinine [Mass/Vol] 0.84 mg/dL 0.60-1.20 [facility] Comment on above: Performed By: #### L IPID, HS TROP, A1C WTH eA, MG, BMP, CBC ####[facility] [place] [address] [facility] ECH echo transthoracicon ECH echo transthoracic [facility] [address] [place] [address] [place] [id number] Echocardiogram Signed Patient: Nora Gibbs MR#: [id number] 464 : 1940 Acct:[id number] Age/Sex: 83 / F ADM Date: 11/30/23 Loc: Room: [address] [place] [address] Type: ADM INOo Attending Dr: Jim Clay [...] V1 max: 116.9 cm/sec (0.7-1.7m/s)MV E max ksuhal: 68.9 cm/sec(0.8-1.3m/s) MV A max kushal: 84.2 [...] Margarito Ballesteros MD 12/01/23 1449 Normal [facility] Erythrocyte distribution wid th [Ratio] by Automated countOrdered By: Jim Clay on 12-01-2023 Erythrocyte distribution width (RBC) [Ratio] 13.4 % 11.9-15.3 [facility] Comment on above: Performed By: #### L IPID, HS TROP, A1C WTH eA, MG, BMP, CBC ####[facility] [id number] Erythrocytes [#/volume] in B lood by Automated countOrdered By: Jim Clay on 12-01-2023 RBC (Bld) [#/Vol] 3.81 10*6/uL 3.60-5.00 [facility] Comment on above: Performed By: #### L IPID, HS TROP, A1C WTH eA, MG, BMP, CBC ####[facility] [id number] [place] [id number] [place] Glucose [Mass/volume] in Ser um or PlasmaOrdered By: Jim Clay on 12-01-2023 Glucose [Mass/Vol] 100 mg/dL 70-100 [facility] Comment on above: ADA recommended refe rence rangeRandom Glucose Reference Range is dependent on time and content of last meal. Glucose of more than 200 mg/dL in a nonstressed, ambulatory subject supports the diagnosis of Diabetes Mellitus. Result Comment: [facility] Glucose Reference Range is dependent on time and content of last meal. Glucose of more than 200 mg/dL in a nonstressed, ambulatory subject supports the diagnosis of Diabetes Mellitus. ADA recommended reference range Performed By: #### L IPID, HS TROP, A1C WTH eA, MG, BMP, CBC ####[facility] [place] [id number] [facility] Glucose mean value [Mass/vol ume] in Blood Estimated from glycated hemoglobinOrdered By: Jim Clay on 12-01-2023 Average glucose Estimated from glycated hemoglobin (Bld) [Mass/Vol] 137 mg/dL [facility] Hematocrit [Volume Fraction] of Blood by Automated countOrdered By: Jim Clay on 12-01-2023 Hematocrit (Bld) [Volume fraction] 34.9 % 34.0-46.4 [facility] Comment on above: Performed By: #### L IPID, HS TROP, A1C WTH eA, MG, BMP, CBC ####[place] [address] [place] [id number] [facility] Hemoglobin A1c percentageOrd ered By: Jim Clay on 12-01-2023 HbA1c (Bld) [Mass fraction] 6.4 % High 4.3-5.6 [facility] Comment on above: Increased risk for d iabetes: 5.7 - 6.4diabetes: >6.4glycemic control for adults with diabetes: <7.0 Result Comment: Incr eased risk for diabetes: 5.7 - 6.4 diabetes: >6.4 glycemic control for adults with diabetes: <7.0 Performed By: #### L IPID, HS TROP, A1C WTH eA, MG, BMP, CBC ####[facility] [place] [id number] [facility] Hemoglobin [Mass/volume] in BloodOrdered By: Jim Clay on 12-01-2023 Hemoglobin (Bld) [Mass/Vol] 11.7 g/dL Low 11.8-15.4 [facility] Comment on above: Performed By: #### L IPID, HS TROP, A1C WTH eA, MG, BMP, CBC ####[facility] Leukocytes [#/volume] correc katia for nucleated erythrocytes in Blood by Automated counOrdered By: Jim Clay on 12-01-2023 WBC corrected for nucl RBC Auto (Bld) [#/Vol] 6.4 10*3/uL 3.8-11.6 [facility] Leukocytes [#/volume] in Blo od by Automated countOrdered By: Jim Clay on 12-01-2023 WBC (Bld) [#/Vol] 6.4 10*3/uL 3.8-11.6 [facility] Comment on above: Performed By: #### L IPID, HS TROP, A1C WTH eA, MG, BMP, CBC ####[facility] [place] [id number] [facility] Lipid Panelon 12-01-2023 LDL Cholesterol,Calculated 37 mg/dL Normal 0-100 [facility] Comment on above: Result Comment: LDL ATP III CLASSIFICATION LDL less than 100 mg/dL Optimal LDL 100-129 mg/dL Near or above optimal LDL 130-159 mg/dL Borderline high LDL 160-189 mg/dL High LDL greater than 189 mg/dL Very high Performed By: #### L IPID, HS TROP, A1C WTH eA, MG, BMP, CBC ####[facility] Triglyceride w/Reflex 171 mg/dL High 0-149 [facility] Comment on above: Result Comment: TRIG ATP III CLASSIFICATION TRIG less than 150 mg/dL Normal TRIG 150-199 mg/dL Borderline high TRIG 200-500 mg/dL High TRIG greater than 500 mg/dL Very high Standard traceable to the Center for Disease Conrtrol and Prevention (CDC) test method. Performed By: #### L IPID, HS TROP, A1C WTH eA, MG, BMP, CBC ####[facility] [place] [address] [facility] VLDL CHOLESTEROL 34 mg/dL Normal [facility] Comment on above: Performed By: #### L IPID, HS TROP, A1C WTH eA, MG, BMP, CBC ####[address] Lymphocytes [#/volume] in Bl ood by Automated countOrdered By: Jim Clay on 12-01-2023 Lymphocytes (Bld) [#/Vol] 1.4 10*3/uL 1.00-4.8 [facility] Comment on above: Performed By: #### L IPID, HS TROP, A1C WTH eA, MG, BMP, CBC ####[address] Lymphocytes/100 leukocytes i n Blood by Automated countOrdered By: Jim Clay on 12-01-2023 Lymphocytes/100 WBC (Bld) 22.3 % . [facility] Comment on above: Performed By: #### L IPID, HS TROP, A1C WTH eA, MG, BMP, CBC ####[address] MCH [Entitic mass] by Automa katia countOrdered By: Jim Clay on 12-01-2023 MCH (RBC) [Entitic mass] 30.5 pg 24.7-34.3 [facility] Comment on above: Performed By: #### L IPID, HS TROP, A1C WTH eA, MG, BMP, CBC ####[address] MCHC Auto (RBC) [Mass/Vol]Or dered By: Jim Clay on 12-01-2023 MCHC (RBC) [Mass/Vol] 33.4 g/dL 32.0-35.0 [facility] MCV [Entitic volume] by Auto mated countOrdered By: Jim Clay on 12-01-2023 MCV (RBC) [Entitic vol] 91.5 fL 80-100 [facility] Comment on above: Performed By: #### L IPID, HS TROP, A1C WTH eA, MG, BMP, CBC ####[address] Magnesium [Mass/volume] in S tyron or PlasmaOrdered By: Jim Clay on 12-01-2023 Magnesium [Mass/Vol] 1.7 mg/dL Low 1.9-2.7 [facility] Comment on above: Performed By: #### L IPID, HS TROP, A1C WTH eA, MG, BMP, CBC ####[facility] [id number] Neutrophils [#/volume] in Bl ood by Automated countOrdered By: Jim Clay on 12-01-2023 Neutrophils (Bld) [#/Vol] 4.0 10*3/uL 1.8-7.7 [facility] Comment on above: Performed By: #### L IPID, HS TROP, A1C WTH eA, MG, BMP, CBC ####[facility] [id number] No Panel InformationOrdered By: Jim Clay on 12-01-2023 Estimated GFR (CKD-EPI) > 60.0 mL/Min [facility] Creatinine Clearance (Chem 47.06 [facility] Nucleated erythrocytes [Pres ence] in Blood by Automated countOrdered By: Jim Clay on 12-01-2023 Nucleated RBC Auto Ql (Bld) 0.1 /100{WBC} 0-0.5 [facility] Platelet mean volume [Entiti c volume] in Blood by Automated countOrdered By: Jim Clay on 12-01-2023 Platelet mean volume (Bld) [Entitic vol] 10.0 fL 6.3-10.7 [facility] Comment on above: Performed By: #### L IPID, HS TROP, A1C WTH eA, MG, BMP, CBC ####[facility] [id number] Platelets [#/volume] in Bloo d by Automated countOrdered By: Jim Clay on 12-01-2023 Platelets (Bld) [#/Vol] 203 10*3/uL 150-450 [facility] Comment on above: Performed By: #### L IPID, HS TROP, A1C WTH eA, MG, BMP, CBC ####[place] [address] [place] [id number] [facility] Potassium [Moles/volume] in Serum or PlasmaOrdered By: Jim Clay on 12-01-2023 Potassium [Moles/Vol] 4.3 mmol/L 3.5-5.1 [facility] Comment on above: Performed By: #### L IPID, HS TROP, A1C WTH eA, MG, BMP, CBC ####[place] [address] [place] [id number] [facility] Serum or plasma anion gap de terminationOrdered By: Jim Clay on 12-01-2023 Anion gap [Moles/Vol] 11.5 mmol/L 6.0-15.0 [facility] Comment on above: Performed By: #### L IPID, HS TROP, A1C WTH eA, MG, BMP, CBC ####[address] Serum or plasma high density lipoprotein (HDL) cholesterol measurementOrdered By: Jim Clay on 12-01-2023 Cholesterol in HDL [Mass/Vol] 38 mg/dL 23- [facility] Comment on above: HDL CHOL ATP-III CLA SSIFICATION Cardiovascular RiskHDL > or equal to 60 mg/dL LOWHDL < 40 mg/dL HIGH Result Comment: HDL CHOL ATP-III CLASSIFICATION Cardiovascular Risk HDL > or equal to 60 mg/dL LOW HDL < 40 mg/dL HIGH Performed By: #### L IPID, HS TROP, A1C WTH eA, MG, BMP, CBC ####[place] [id number] [facility] Serum or plasma total choles terol/high density lipoprotein (HDL) cholesterol mass ratOrdered By: Jim Clay on 12-01-2023 Cholesterol.total/Chol esterol in HDL [Mass ratio] 2.9 {ratio} <5.0 [facility] Comment on above: Result Comment: PERF ORMED BY: [facility] [address] [place] [address] PATHOLOGIST HANDLE AND VENT MACHINE OPERATOR JIANLAN SUN M.D. Performed By: #### L IPID, HS TROP, A1C WTH eA, MG, BMP, CBC ####[place] [address] [place] [id number] [facility] Sodium [Moles/volume] in Ser um or PlasmaOrdered By: Jim Clay on 12-01-2023 Sodium [Moles/Vol] 142 mmol/L 136-145 [facility] Comment on above: Performed By: #### L IPID, HS TROP, A1C WTH eA, MG, BMP, CBC ####[facility] [place] [id number] [facility] Triglyceride [Mass/volume] i n Serum or PlasmaOrdered By: Jim Clay on 12-01-2023 Triglyceride [Mass/Vol] 171 mg/dL High 0-149 [facility] Comment on above: TRIG ATP III CLASSIF ICATIONTRIG less than 150 mg/dL NormalTRIG 150-199 mg/dL Borderline highTRIG 200-500 mg/dL High TRIG greater than 500 mg/dL Very highStandard traceable to the Center for Disease Conrtrol and Prevention (CDC) test method. Troponin I High Sensitivityo n 12-01-2023 Troponin I High Sensitivity 9.5 pg/mL Normal 0.0-15.0 [facility] Comment on above: Result Comment: PERF ORMED BY: [facility] [address] [place] [address] PATHOLOGIST HANDLE AND VENT MACHINE OPERATOR JUDY RASMUSSEN M.D. Performed By: #### L IPID, HS TROP, A1C WTH eA, MG, BMP, CBC ####[place] [address] [place] [id number] [facility] Troponin I.cardiac [Mass/vol ume] in Serum or Plasma by Detection limit <= 0.01 ng/Ordered By: Jim Clay on 12-01-2023 Troponin I.cardiac DL <= 0.01 ng/mL [Mass/Vol] 9.5 pg/mL 0.0-15.0 [facility] Urea nitrogen [Mass/volume] in Serum or PlasmaOrdered By: Jim Clay on 12-01-2023 Urea nitrogen [Mass/Vol] 21 mg/dL 7-25 [facility] Comment on above: Performed By: #### L IPID, HS TROP, A1C WTH eA, MG, BMP, CBC ####[facility] [id number] [place] [address] [place] Activated partial thrombopla stin time (aPTT) in platelet poor plasma by coagulation aOrdered By: Nika Fagan on 11-30-2023 aPTT Coag (PPP) [Time] 29.1 s 25.1-36.5 [facility] Comment on above: A hematocrit value g reater than 55% may lead to inaccurate results in coagulation testing. Patients having hematocrit values >55% require a special collection tube for coagulation studies. Please contact the laboratory at [phone] for redraw instructions. Alanine aminotransferase [En zymatic activity/volume] in Serum or PlasmaOrdered By: Nika Fagan on 11-30-2023 ALT [Catalytic activity/Vol] 20 U/L [facility] Comment on above: Performed By: #### C BC, BNP, PTT, DDIMER, HS TROP, PT, CMP #### [facility] [address] [place] [address] [place] Albumin [Mass/volume] in Ser um or Plasma by Bromocresol green (BCG) dye binding methoOrdered By: Nika Fagan on 11-30-2023 Albumin BCG dye [Mass/Vol] 4.1 g/dL 3.5-5.7 [facility] Alkaline phosphatase [Enzyma tic activity/volume] in Serum or PlasmaOrdered By: Nika Fagan on 11-30-2023 ALP [Catalytic activity/Vol] 89 U/L 34-104 [facility] Comment on above: Performed By: #### C BC, BNP, PTT, DDIMER, HS TROP, PT, CMP #### [facility] [address] [place] [address] [place] Aspartate aminotransferase [ Enzymatic activity/volume] in Serum or PlasmaOrdered By: Nika Fagan on 11-30-2023 AST [Catalytic activity/Vol] 25 U/L 13-39 [facility] Comment on above: Performed By: #### C BC, BNP, PTT, DDIMER, HS TROP, PT, CMP #### [address] Automated basophil %Ordered By: Nika Fagan on 11-30-2023 Basophils/100 WBC (Bld) 0.6 % Normal . [facility] Comment on above: Performed By: #### C BC, BNP, PTT, DDIMER, HS TROP, PT, CMP #### [address] Automated basophil countOrde red By: Nika Fagan on 11-30-2023 Basophils (Bld) [#/Vol] 0.0 10*3/uL Normal 0.0-0.2 [facility] Comment on above: Result Comment: PERF ORMED BY: [place] [address] PATHOLOGIST HANDLE AND VENT MACHINE OPERATOR JUDY RASMUSSEN M.D. Performed By: #### C BC, BNP, PTT, DDIMER, HS TROP, PT, CMP #### [address] Automated blood monocyte cou ntOrdered By: Nkia Fagan on 11-30-2023 Monocytes (Bld) [#/Vol] 0.6 10*3/uL Normal 0.0-0.8 [facility] Comment on above: Performed By: #### C BC, BNP, PTT, DDIMER, HS TROP, PT, CMP #### [address] Automated eosinophil %Ordere d By: Nika Fagan on 11-30-2023 Eosinophils/100 WBC (Bld) 2.8 % Normal . [facility] Comment on above: Performed By: #### C BC, BNP, PTT, DDIMER, HS TROP, PT, CMP #### [address] Automated eosinophil countOr dered By: Nika Fagan on 11-30-2023 Eosinophils (Bld) [#/Vol] 0.2 10*3/uL Normal 0.0-0.45 [facility] Comment on above: Performed By: #### C BC, BNP, PTT, DDIMER, HS TROP, PT, CMP #### [address] Automated monocyte %Ordered By: Nika Fagan on 11-30-2023 Monocytes/100 WBC (Bld) 9.8 % Normal . [facility] Comment on above: Performed By: #### C BC, BNP, PTT, DDIMER, HS TROP, PT, CMP #### [address] Automated neutrophil %Ordere d By: Nika Fagan on 11-30-2023 Neutrophils/100 WBC (Bld) 66.7 % Normal . [facility] Comment on above: Performed By: #### C BC, BNP, PTT, DDIMER, HS TROP, PT, CMP #### [address] BNP ser/plasOrdered By: Mono Fagan on 11-30-2023 Natriuretic peptide B (Bld) [Mass/Vol] 274.0 pg/mL High 5-100 [facility] Comment on above: Result Comment: PERF ORMED BY: [place] [address] PATHOLOGIST HANDLE AND VENT MACHINE OPERATOR JUDY RASMUSSEN M.D. Performed By: #### C BC, BNP, PTT, DDIMER, HS TROP, PT, CMP #### [address] Bilirubin.total [Mass/volume ] in Serum or PlasmaOrdered By: Nika Fagan on 11-30-2023 Bilirubin [Mass/Vol] 0.5 mg/dL 0.3-1.0 [facility] Comment on above: Performed By: #### C BC, BNP, PTT, DDIMER, HS TROP, PT, CMP #### [address] angio chest PE protocolon 11-30-2023 CT angio chest PE protocol [facility] [place] [address] [place] [address] CT Scan Report Signed Patient: Nora Gibbs MR#: [id number] : 1940 Acct:[id number] Age/Sex: 83 / F ADM Date: 11/30/23 Loc: ER Room: Type: [facility] ER Attending Dr: Copies to: [...] Mahendra Chandler M.D.11/30/2023 12:06 PM Dictation Location: [place] [address] Transcribed By: [facility] 11/30/23 1206 Dictated By: Mahendra Chandler DO 11/30/23 1200 Signed By: 11/30/23 1206 Normal [facility] Calcium [Mass/volume] in Ser um or PlasmaOrdered By: Nika Fagan on 11-30-2023 Calcium [Mass/Vol] 9.4 mg/dL Normal 8.6-10.3 [facility] Comment on above: Performed By: #### C BC, BNP, PTT, DDIMER, HS TROP, PT, CMP #### [address] Carbon dioxide, total [Moles /volume] in Serum or PlasmaOrdered By: Nika Fagan on 11-30-2023 CO2 [Moles/Vol] 20.0 mmol/L Low 21.0-31.0 [facility] Comment on above: Performed By: #### C BC, BNP, PTT, DDIMER, HS TROP, PT, CMP #### [address] Chloride [Moles/volume] in S tyron or PlasmaOrdered By: Nika Fagan on 11-30-2023 Chloride [Moles/Vol] 111 mmol/L High 98-107 [facility] Comment on above: Performed By: #### C BC, BNP, PTT, DDIMER, HS TROP, PT, CMP #### [address] Complete Blood Count Auto Di ffon 11-30-2023 Mean Corpuscular HGB Conc 33.0 g/dL Normal 32.0-35.0 [facility] Comment on above: Performed By: #### C BC, BNP, PTT, DDIMER, HS TROP, PT, CMP #### [address] Monocytes/100 WBC (Bld) 16.37 % Normal 0.00-20.00 [facility] Comment on above: Performed By: #### C BC, BNP, PTT, DDIMER, HS TROP, PT, CMP #### [address] NRBC% 0.1 /100{WBC} Normal 0-0.5 [facility] Comment on above: Performed By: #### C BC, BNP, PTT, DDIMER, HS TROP, PT, CMP #### [address] Comprehensive Metabolic Pane ventura 11-30-2023 Albumin [Mass/Vol] 4.1 g/dL Normal 3.5-5.7 [facility] Comment on above: Performed By: #### C BC, BNP, PTT, DDIMER, HS TROP, PT, CMP #### [address] Creatinine Clr Calc Pharmacy 43.90 Normal [facility] Comment on above: Result Comment: PERF ORMED BY: [place] [address] PATHOLOGIST HANDLE AND VENT MACHINE OPERATOR JUDY RASMUSSEN M.D. Performed By: #### C BC, BNP, PTT, DDIMER, HS TROP, PT, CMP #### [address] GFR/1.73 sq M.predicted MDRD (S/P/Bld) [Vol rate/Area] mL/min/{1.73_m2} Normal [facility] Comment on above: Performed By: #### C BC, BNP, PTT, DDIMER, HS TROP, PT, CMP #### [address] Creatinine [Mass/volume] in Serum or PlasmaOrdered By: Nika Fagan on 11-30-2023 Creatinine [Mass/Vol] 0.91 mg/dL Normal 0.60-1.20 [facility] Comment on above: Performed By: #### C BC, BNP, PTT, DDIMER, HS TROP, PT, CMP #### [address] D-Dimer High Sensitivityon 0 11-30-2023 D-Dimer High Sensitivity 734 ng/mL High 0-243 [facility] Comment on above: Result Comment: [...] coagulation studies. Please contact the laboratory at [phone] for redraw instructions. PERFORMED BY: [place] [address] PATHOLOGIST HANDLE AND VENT MACHINE OPERATOR JUDY RASMUSSEN M.D. Performed By: #### C BC, BNP, PTT, DDIMER, HS TROP, PT, CMP ####[facility] [id number] [place] [address] [facility] ECG 12 lead ECGon 11-30-2023 ECG 12 lead ECG [facility] [place] [address] [place] [address] Electrocardiograph Report Signed Patient: Nroa Gibbs MR#: [id number] : 1940 Acct:[id number] Age/Sex: 83 / F ADM Date: 11/30/23 Loc: Room: [address] [place] [address] Type: ADM INOo Attending Dr: Jim Clay [...] Lateral leads Confirmed by Kole Damon DO ([id number]) on 11/30/2023 3:08:44 PM Referred By: Electronically Signed By:Kole Damon DO Transcribed By: MUS Signed By Kole Damon DO 4 1509 Normal [facility] Erythrocyte distribution wid th [Ratio] by Automated countOrdered By: Nika Fagan on 11-30-2023 Erythrocyte distribution width (RBC) [Ratio] 13.4 % Normal 11.9-15.3 [facility] Comment on above: Performed By: #### C BC, BNP, PTT, DDIMER, HS TROP, PT, CMP #### [facility] [address] Erythrocytes [#/volume] in B lood by Automated countOrdered By: Nika Fagan on 11-30-2023 RBC (Bld) [#/Vol] 4.17 10*6/uL Normal 3.60-5.00 [facility] Comment on above: Performed By: #### C BC, BNP, PTT, DDIMER, HS TROP, PT, CMP #### [facility] [address] Fibrin D-dimer [Presence] in Platelet poor plasma by Latex agglutinationOrdered By: Nika Fagan on 11-30-2023 Fibrin D-dimer LA Ql (PPP) 734 ng/mL High 0-243 [facility] Comment on above: The reference range for [...] coagulation studies. Please contact the laboratory at [phone] for redraw instructions. Glucose [Mass/volume] in Ser um or PlasmaOrdered By: Nika Fagan on 11-30-2023 Glucose [Mass/Vol] 121 mg/dL High 70-100 [facility] Comment on above: ADA recommended refe rence rangeRandom Glucose Reference Range is dependent on time and content of last meal. Glucose of more than 200 mg/dL in a nonstressed, ambulatory subject supports the diagnosis of Diabetes Mellitus. Result Comment: [facility] Glucose Reference Range is dependent on time and content of last meal. Glucose of more than 200 mg/dL in a nonstressed, ambulatory subject supports the diagnosis of Diabetes Mellitus. ADA recommended reference range Performed By: #### C BC, BNP, PTT, DDIMER, HS TROP, PT, CMP #### [address] Hematocrit [Volume Fraction] of Blood by Automated countOrdered By: Nika Fagan on 11-30-2023 Hematocrit (Bld) [Volume fraction] 37.9 % Normal 34.0-46.4 [facility] Comment on above: Performed By: #### C BC, BNP, PTT, DDIMER, HS TROP, PT, CMP #### [address] Hemoglobin [Mass/volume] in BloodOrdered By: Nika Fagan on 11-30-2023 Hemoglobin (Bld) [Mass/Vol] 12.5 g/dL Normal 11.8-15.4 [facility] Comment on above: Performed By: #### C BC, BNP, PTT, DDIMER, HS TROP, PT, CMP #### [address] INR in Platelet poor plasma by Coagulation assayOrdered By: Nika Fagan on 11-30-2023 INR Coag (PPP) [Relative time] 1.0 {INR} [facility] Comment on above: INR Therapeutic Rang e [...] PTT, DDIMER, HS TROP, PT, CMP #### [address] Leukocytes [#/volume] correc katia for nucleated erythrocytes in Blood by Automated counOrdered By: Nika Fagan on 11-30-2023 WBC corrected for nucl RBC Auto (Bld) [#/Vol] 6.1 10*3/uL 3.8-11.6 [facility] Leukocytes [#/volume] in Blo od by Automated countOrdered By: Nika Fagan on 11-30-2023 WBC (Bld) [#/Vol] 6.1 10*3/uL Normal 3.8-11.6 [facility] Comment on above: Performed By: #### C BC, BNP, PTT, DDIMER, HS TROP, PT, CMP #### [facility] [address] [place] [address] Lymphocytes [#/volume] in Bl ood by Automated countOrdered By: Nika Fagan on 11-30-2023 Lymphocytes (Bld) [#/Vol] 1.2 10*3/uL Normal 1.00-4.8 [facility] Comment on above: Performed By: #### C BC, BNP, PTT, DDIMER, HS TROP, PT, CMP #### [facility] [address] [place] [address] [place] Lymphocytes/100 leukocytes i n Blood by Automated countOrdered By: Nika Fagan on 11-30-2023 Lymphocytes/100 WBC (Bld) 20.1 % Normal . [facility] Comment on above: Performed By: #### C BC, BNP, PTT, DDIMER, HS TROP, PT, CMP #### [place] [address] [place] MCH [Entitic mass] by Automa katia countOrdered By: Nika Fagan on 11-30-2023 MCH (RBC) [Entitic mass] 30.0 pg Normal 24.7-34.3 [facility] Comment on above: Performed By: #### C BC, BNP, PTT, DDIMER, HS TROP, PT, CMP #### [facility] [address] MCHC Auto (RBC) [Mass/Vol]Or dered By: Nika Fagan on 11-30-2023 MCHC (RBC) [Mass/Vol] 33.0 g/dL 32.0-35.0 [facility] MCV [Entitic volume] by Auto mated countOrdered By: Nika Fagan on 11-30-2023 MCV (RBC) [Entitic vol] 90.9 fL Normal 80-100 [facility] Comment on above: Performed By: #### C BC, BNP, PTT, DDIMER, HS TROP, PT, CMP #### [facility] [address] [place] [address] Monocyte distribution width [Entitic volume] in Blood by AutomatedOrdered By: Nika Fagan on 11-30-2023 Monocyte distribution width Auto (Bld) [Entitic vol] 16.37 % 0.00-20.00 [facility] Neutrophils [#/volume] in Bl ood by Automated countOrdered By: Nika Fagan on 11-30-2023 Neutrophils (Bld) [#/Vol] 4.1 10*3/uL Normal 1.8-7.7 [facility] Comment on above: Performed By: #### C BC, BNP, PTT, DDIMER, HS TROP, PT, CMP #### [facility] [address] [place] [address] No Panel InformationOrdered By: Nika Fagan on 11-30-2023 Estimated GFR (CKD-EPI) > 60.0 mL/Min [facility] Creatinine Clearance (Chem 43.90 [facility] Nucleated erythrocytes [Pres ence] in Blood by Automated countOrdered By: Nika Fagan on 11-30-2023 Nucleated RBC Auto Ql (Bld) 0.1 /100{WBC} 0-0.5 [facility] Partial Thromboplastin Timeo n 11-30-2023 aPTT Coag (Bld) [Time] 29.1 s Normal 25.1-36.5 [facility] Comment on above: Result Comment: A he matocrit value greater than 55% may lead to inaccurate results in coagulation testing. Patients having hematocrit values >55% require a special collection tube for coagulation studies. Please contact the laboratory at [phone] for redraw instructions. Performed By: #### C BC, BNP, PTT, DDIMER, HS TROP, PT, CMP #### [facility] [address] [place] [address] [place] Platelet mean volume [Entiti c volume] in Blood by Automated countOrdered By: Nika Fagan on 11-30-2023 Platelet mean volume (Bld) [Entitic vol] 9.3 fL Normal 6.3-10.7 [facility] Comment on above: Performed By: #### C BC, BNP, PTT, DDIMER, HS TROP, PT, CMP #### [place] [address] [place] Platelets [#/volume] in Bloo d by Automated countOrdered By: Nika Fagan on 11-30-2023 Platelets (Bld) [#/Vol] 195 10*3/uL Normal 150-450 [facility] Comment on above: Performed By: #### C BC, BNP, PTT, DDIMER, HS TROP, PT, CMP #### [place] [address] [place] Potassium [Moles/volume] in Serum or PlasmaOrdered By: Nika Fagan on 11-30-2023 Potassium [Moles/Vol] 4.1 mmol/L Normal 3.5-5.1 [facility] Comment on above: Performed By: #### C BC, BNP, PTT, DDIMER, HS TROP, PT, CMP #### [facility] [address] [place] [address] [place] Protein [Mass/volume] in Ser um or PlasmaOrdered By: Nika Fagan on 11-30-2023 Protein [Mass/Vol] 6.9 g/dL 6.4-8.9 [facility] Comment on above: Performed By: #### C BC, BNP, PTT, DDIMER, HS TROP, PT, CMP #### [address] Prothrombin time (PT)Ordered By: Nika Fagan on 11-30-2023 PT Coag (PPP) [Time] 11.6 s 9.0-12.9 [facility] Comment on above: A hematocrit value g reater than 55% may lead to inaccurate results in coagulation testing. Patients having hematocrit values >55% require a special collection tube for coagulation studies. Please contact the laboratory at [phone] for redraw instructions. Result Comment: A he matocrit value greater than 55% may lead to inaccurate results in coagulation testing. Patients having hematocrit values >55% require a special collection tube for coagulation studies. Please contact the laboratory at [phone] for redraw instructions. Performed By: #### C BC, BNP, PTT, DDIMER, HS TROP, PT, CMP #### [address] Serum globulin measurement b y calculation (mass/volume)Ordered By: Nika Fagan on 11-30-2023 Globulin (S) [Mass/Vol] 2.8 g/dL [facility] Comment on above: Performed By: #### C BC, BNP, PTT, DDIMER, HS TROP, PT, CMP #### [address] Serum or plasma albumin/glob ulin mass ratioOrdered By: Nika Fagan on 11-30-2023 Albumin/Globulin [Mass ratio] 1.5 {ratio} [facility] Comment on above: Performed By: #### C BC, BNP, PTT, DDIMER, HS TROP, PT, CMP #### [address] Serum or plasma anion gap de terminationOrdered By: Nika Fagan on 11-30-2023 Anion gap [Moles/Vol] 14.1 mmol/L Normal 6.0-15.0 [facility] Comment on above: Performed By: #### C BC, BNP, PTT, DDIMER, HS TROP, PT, CMP #### [address] Sodium [Moles/volume] in Ser um or PlasmaOrdered By: Nika Fagan on 11-30-2023 Sodium [Moles/Vol] 141 mmol/L Normal 136-145 [facility] Comment on above: Performed By: #### C BC, BNP, PTT, DDIMER, HS TROP, PT, CMP #### [facility] [address] [place] [address] Troponin I High Sensitivityo n 11-30-2023 Troponin I High Sensitivity 15.3 pg/mL High 0.0-15.0 [facility] Comment on above: Result Comment: PERF ORMED BY: [place] [address] PATHOLOGIST HANDLE AND VENT MACHINE OPERATOR JUDY RASMUSSEN M.D. Performed By: #### H S TROP ####[address] Troponin I High Sensitivity 8.5 pg/mL Normal 0.0-15.0 [facility] Comment on above: Result Comment: PERF ORMED BY: [place] [address] PATHOLOGIST HANDLE AND VENT MACHINE OPERATOR JUDY RASMUSSEN M.D. Performed By: #### H S TROP ####[address] Troponin I High Sensitivity 6.9 pg/mL Normal 0.0-15.0 [facility] Comment on above: Result Comment: PERF ORMED BY: [place] [address] PATHOLOGIST HANDLE AND VENT MACHINE OPERATOR JUDY RASMUSSEN M.D. Performed By: #### C BC, BNP, PTT, DDIMER, HS TROP, PT, CMP #### [facility] [address] [place] [address] Troponin I.cardiac [Mass/vol ume] in Serum or Plasma by Detection limit <= 0.01 ng/Ordered By: Nika Fagan on 11-30-2023 Troponin I.cardiac DL <= 0.01 ng/mL [Mass/Vol] 8.5 pg/mL 0.0-15.0 [facility] Urea nitrogen [Mass/volume] in Serum or PlasmaOrdered By: Nika Fagan on 11-30-2023 Urea nitrogen [Mass/Vol] 24 mg/dL Normal 7- [facility] Comment on above: Performed By: #### C BC, BNP, PTT, DDIMER, HS TROP, PT, CMP #### [facility] [address] XR chest 2V*on 11-30-2023 XR chest 2V* [facility] [address] [place] [address] XRay Report Signed Patient: Nora Gibbs MR#: [id number] : 1940 Acct:[id number] Age/Sex: 83 / F ADM Date: 11/30/23 Loc: ER Room: Type: [facility] ER Attending Dr: Copies to: [...] Mathew Morton M.D.11/30/2023 11:41 AM Dictation Location: [place] [address] Transcribed By: [facility] 11/30/23 1141 Dictated By: Mathew Morton II, MD 11/30/23 1139 Signed By: 11/30/23 1141 Normal [facility] Basophils Auto (Bld) [#/Vol] on 11-20-2023 Basophils (Bld) [#/Vol] 0.1 10 3/uL 0.0-0.1 [facility] Basophils/100 WBC Auto (Bld) on 11-20-2023 Basophils/100 WBC (Bld) 0.6 % 0.2-2.0 [facility] Eosinophils/100 WBC Auto (Bl d)on 11-20-2023 Eosinophils/100 WBC (Bld) 2.4 % 0.9-7.0 [facility] Erythrocyte distribution wid th Auto (RBC) [Ratio]on 11-20-2023 Erythrocyte distribution width (RBC) [Ratio] 13.2 % 11.0-15.0 [facility] Estimated glomerular filtrat ion rate (GFR) non- Americanon 11-20-2023 GFR/1.73 sq M.predicted among non-blacks MDRD (S/P/Bld) [Vol rate/Area] 46 mL/min/{1.73_m2} Low >=60 [facility] Hematocrit Auto (Bld) [Volum e fraction]on 11-20-2023 Hematocrit (Bld) [Volume fraction] 41.6 % 36.0-48.0 [facility] Hemoglobin [Mass/volume] in Bloodon 11-20-2023 Hemoglobin (Bld) [Mass/Vol] 13.2 g/dL 12.0-16.0 [facility] Laboratory - Chemistry and C hemistry - challengeon 11-20-2023 Calcium [Mass/Vol] 9.4 mg/dL 8.5-10.1 [facility] Chloride [Moles/Vol] 106 mmol/L 98-107 [facility] CO2 [Moles/Vol] 26.3 mmol/L 21.0-32.0 [facility] Creatinine [Mass/Vol] 1.12 mg/dL High 0.55-1.02 [facility] GFR/1.73 sq M.predicted MDRD (S/P/Bld) [Vol rate/Area] 56 mL/min/{1.73_m2} Low >=60 [facility] Glucose [Mass/Vol] 108 mg/dL High 74-106 [facility] Natriuretic peptide B (Bld) [Mass/Vol] 491.0 pg/mL <=1800.0 [facility] Potassium [Moles/Vol] 4.2 mmol/L 3.5-5.1 [facility] Sodium [Moles/Vol] 141 mmol/L 136-145 [facility] TSH Qn 0.205 m[IU]/L Low 0.358-3.74 0 [facility] Urea nitrogen [Mass/Vol] 20.0 mg/dL High 7.0-18.0 [facility] Urea nitrogen/Creatinine [Mass ratio] 17.9 mg/mg [facility] [facility]ology and Cell countson 11-20-2023 Immature granulocytes/100 WBC (Bld) 0.1 % 0.0-0.5 [facility] Leukocytes [#/volume] correc katia for nucleated erythrocytes in Blood by Automated counon 11-20-2023 WBC corrected for nucl RBC Auto (Bld) [#/Vol] 8.0 10 3/uL 4.0-11.0 [facility] Lymphocytes Auto (Bld) [#/Vo l]on 11-20-2023 Lymphocytes (Bld) [#/Vol] 1.8 10 3/uL 1.2-3.8 [facility] Lymphocytes/100 WBC Auto (Bl d)on 11-20-2023 Lymphocytes/100 WBC (Bld) 22.3 % 20.5-60.0 [facility] MCH Auto (RBC) [Entitic mass ]on 11-20-2023 MCH (RBC) [Entitic mass] 29.3 pg 26.7-34.0 [facility] MCHC Auto (RBC) [Mass/Vol]on 11-20-2023 MCHC (RBC) [Mass/Vol] 31.7 g/dL 29.9-35.2 [facility] MCV Auto (RBC) [Entitic vol] on 11-20-2023 MCV (RBC) [Entitic vol] 92.4 fL 81.0-99.0 [facility] Monocytes Auto (Bld) [#/Vol] on 11-20-2023 Monocytes (Bld) [#/Vol] 0.9 10 3/uL High 0.3-0.8 [facility] Monocytes/100 WBC Auto (Bld) on 11-20-2023 Monocytes/100 WBC (Bld) 11.2 % 1.7-12.0 [facility] Neutrophils Auto (Bld) [#/Vo l]on 11-20-2023 Neutrophils (Bld) [#/Vol] 5.1 10 3/uL 1.4-6.5 [facility] Neutrophils/100 WBC Auto (Bl d)on 11-20-2023 Neutrophils/100 WBC (Bld) 63.4 % 43.0-75.0 [facility] No Panel Informationon 11-19 Eosinophils # (Auto) 0.2 10 3/uL 0.0-0.7 [facility] Immature Granulocyte # (Auto) 0.01 10 3/uL 0.00-0.03 [facility] Platelet mean volume Auto (B ld) [Entitic vol]on 11-20-2023 Platelet mean volume (Bld) [Entitic vol] 11.3 fL 9.5-13.5 [facility] Platelets Auto (Bld) [#/Vol] on 11-20-2023 Platelets (Bld) [#/Vol] 255 10 3/uL 150-450 [facility] RBC Auto (Bld) [#/Vol]on RBC (Bld) [#/Vol] 4.50 10 6/uL 4.20-5.40 [facility] Serum or plasma anion gap de terminationon 11-20-2023 Anion gap [Moles/Vol] 12.9 mmol/L [facility] ANTIMICROBIAL SUSCEPT-ANAERO BEon 05-28-2023 FINAL REPORT SEE NOTE Normal [facility] Comment on above: Order Comment: Speci men Type: MICROBIAL ISOLATE Ordering Facility: [facility] Address: [address] [place] [phone] Result Comment: Prev otella bergensis Organism identified [...] method. RUSTY M Beta-Lactamase Neg Performed By: [facility] [address] [place] [address] Manager University: Paulino العراقي MD, PhD CLIA Number: [id number] Performed By: #### S USANA #### [facility] CLIA [id number] [address] [place], [place] [id number] #### [id number] #### [facility] CLIA [id number] [address] [place] [address] [place] Aerobic Cultureon 05-28-2023 Aerobic Culture Comment Tissue C S R breast Light Normal Skin Aries 2 Days Comment Tissue C S R breast ORGANISM: Prevotella bergensis (O:PREBER) Comments Sent to [facility] for Testing Quantity of Growth Light Growth Antimicrobial susceptibility testing could not be completed due to poor organism growth using the CLSI approved test method. Please see scanned report located in the Laboratory/Scanned Reports section of the EMR. Comment Tissue C S R breast Gram Stain Result No Bacteria Seen PERFORMED BY: [place] [address] PATHOLOGIST HANDLE AND VENT MACHINE OPERATOR JUDY RASMUSSEN M.D. Normal [facility] Comment on above: Performed By: #### A ERC ####[facility] [address] [id number] [facility] Bacterial susceptibility weller el BETTYE (Isol)on 05-28-2023 BLACT Negative Normal [facility] Comment on above: Order Comment: Speci men Type: MICROBIAL ISOLATE Ordering Facility: [facility] Address: [address] [place] [address] Performed By: #### S USANA #### [facility] CLIA [id number] [address] [place] [id number] #### [id number] #### [facility] CLIA [id number] [address] [place] [address] [place] Microorganism identified Cx Nom (Unsp spec) [id number] Abnormal [facility] Comment on above: Order Comment: Speci men Type: MICROBIAL ISOLATE Ordering Facility: [facility] Address: [address] [place], [place] [phone] Result Comment: Prev otella bergensis Susceptibility results have been completed by FRANKLYN. Performed By: #### S USANA #### [facility] CLIA [id number] [address] [place] [address] #### [id number] #### [facility] CLIA [id number] [address] [facility] [address] [address] [place] Basic Metabolic Panelon 05-11 Creatinine Clr Calc Pharmacy 44.56 Normal [facility] Comment on above: Result Comment: PERF ORMED BY: [place] [address] PATHOLOGIST HANDLE AND VENT MACHINE OPERATOR JUDY RASMUSSEN M.D. Performed By: #### B MP #### [address] GFR/1.73 sq M.predicted MDRD (S/P/Bld) [Vol rate/Area] mL/min/{1.73_m2} Normal [facility] Comment on above: Performed By: #### B MP #### [address] Calcium [Mass/volume] in Ser um or PlasmaOrdered By: Shine Lea on 05-28-2023 Calcium [Mass/Vol] 9.3 mg/dL Normal 8.6-10.3 [facility] Comment on above: Performed By: #### B MP #### [facility] [address] [place] [address] [place] Carbon dioxide, total [Moles /volume] in Serum or PlasmaOrdered By: Shine Lea on 05-28-2023 CO2 [Moles/Vol] 22.9 mmol/L Normal 21.0-31.0 [facility] Comment on above: Performed By: #### B MP #### [place] [address] [place] Chloride [Moles/volume] in S tyron or PlasmaOrdered By: Shine Loenora on 05-28-2023 Chloride [Moles/Vol] 109 mmol/L High 98-107 [facility] Comment on above: Performed By: #### B MP #### [facility] [address] Creatinine [Mass/volume] in Serum or PlasmaOrdered By: Shine Verduzcoain on 05-28-2023 Creatinine [Mass/Vol] 0.89 mg/dL Normal 0.60-1.20 [facility] Comment on above: Performed By: #### B MP #### [facility] [address] Glucose [Mass/volume] in Ser um or PlasmaOrdered By: Shine Lea on 05-28-2023 Glucose [Mass/Vol] 113 mg/dL High 70-100 [facility] Comment on above: ADA recommended refe rence rangeRandom Glucose Reference Range is dependent on time and content of last meal. Glucose of more than 200 mg/dL in a nonstressed, ambulatory subject supports the diagnosis of Diabetes Mellitus. Result Comment: [place] om Glucose Reference Range is dependent on time and content of last meal. Glucose of more than 200 mg/dL in a nonstressed, ambulatory subject supports the diagnosis of Diabetes Mellitus. ADA recommended reference range Performed By: #### B MP #### [facility] [address] [place] [id number] [facility] [place] 05-28-2023 L ----- Specimen: [id number] Received: 05/28/23 Status: HAMZAH Dunbar Num: [id number] Spec Type: Surgical Subm Dr: Luis Angel Saucedo MD Tissues: A Debridement-Skin/Other Than Skin (POD RT BRST) Procedures: HE, Gross/Micro L3 Age/ Patient Sex Location Account Attending Physician Nora Gibbs 83/F [place] [id number] Luis Angel Saucedo MD SPEC NUM: [id number] RECD: 05/28/23 STATUS: RACHEALKarel DUNBAR NUM: [id number] NEDA: 05/28/[address] [facility] [address]: Luis Angel Saucedo MD ENTERED: 05/28/[address] [facility] DR: DELMIS TYPE: Surgical DEPT: S ENTERED BY: [id number] RECV BY: [id number] ORDERED: ISIDORO, Gross/Micro L3 ORDERED: HE, Gross/Micro L3 Pathological [...] The microscopic examination confirms the diagnosis. Specimen: [id number] Received: 05/28/23 Status: HAMZAH Dunbar Num: [id number] Spec Type: Surgical Subm Dr: Luis Angel Saucedo MD Tissues: A Debridement-Skin/Other Than Skin (POD RT BRST) Procedures: ISIDORO, Gross/Savanna L3 Patient: Nora Gibbs [id number] (Continued) Specimen: [id number] Received: 05/28/23 (Continued) Signed (signature on file) Zacarias Hunt MD 05/29/23 1548 Specimen: [id number] Received: 05/28/23 Status: HAMZAH Dunbar Num: [id number] Spec Type: Surgical Subm Dr: Luis Angel Saucedo MD Tissues: A Debridement-Skin/Other Than Skin (POD RT BRST) Procedures: ISIDORO, Gross/Savanna L3 Patient: Nora Gibbs [id number] (Continued) Specimen: [id number] Received: 05/28/23 (Continued) CPT Codes 59928 Specimen: [id number] Received: 05/28/23 Status: HAMZAH Dunbar Num: [id number] Spec Type: Surgical Subm Dr: Luis Angel Saucedo MD Tissues: A Debridement-Skin/Other Than Skin (POD RT BRST) Procedures: HE, Gross/Micro L3 Patient: Nora Gibbs [id number] (Continued) Signed (signature on file) Zacarias Hunt MD 05/29/23 1542 Normal [facility] Microorganism identified Cx Nom (Unsp spec)on 05-28-2023 CULTURE, ORGANISM ID ANAEROBE [id number] Abnormal [facility] Comment on above: Order Comment: Speci men Type: MICROBIAL ISOLATE Ordering Facility: [facility] Address: [address] [place] [phone] Result Comment: Prev otella bergensis Performed By: #### 1 1475-1 #### [facility] CLIA [id number] [address] [place] [address] [address] [place] No Panel InformationOrdered By: Shine Lea on 05-28-2023 Estimated GFR (CKD-EPI) > 60.0 mL/Min [facility] Creatinine Clearance (Chem 44.56 [facility] Potassium [Moles/volume] in Serum or PlasmaOrdered By: Shine Verduzcoain on 05-28-2023 Potassium [Moles/Vol] 4.1 mmol/L Normal 3.5-5.1 [facility] Comment on above: Performed By: #### B MP #### [address] Serum or plasma anion gap de terminationOrdered By: Shine Verduzcoain on 05-28-2023 Anion gap [Moles/Vol] 12.2 mmol/L Normal 6.0-15.0 [facility] Comment on above: Performed By: #### B MP #### [address] Sodium [Moles/volume] in Ser um or PlasmaOrdered By: Shine Leonora on 05-28-2023 Sodium [Moles/Vol] 140 mmol/L Normal 136-145 [facility] Comment on above: Performed By: #### B MP #### [address] Urea nitrogen [Mass/volume] in Serum or PlasmaOrdered By: Shine Leonora on 05-28-2023 Urea nitrogen [Mass/Vol] 25 mg/dL Normal 7-25 [facility] Comment on above: Performed By: #### B MP #### [address] Automated basophil %Ordered By: Luis Angel Saucedo on 05-17-2023 Basophils/100 WBC (Bld) 0.7 % Normal . [facility] Comment on above: Performed By: #### C BC, BMP ####[facility] [address] [place] [address] Automated basophil countOrde red By: Luis Angel Saucedo on 05-17-2023 Basophils (Bld) [#/Vol] 0.1 10*3/uL Normal 0.0-0.2 [facility] Comment on above: Result Comment: PERF ORMED BY: [facility] [address] [place] [address] PATHOLOGIST HANDLE AND VENT MACHINE OPERATOR JUDY RASMUSSEN M.D. Performed By: #### C BC, BMP ####[place] [address] [address] Automated blood monocyte cou ntOrdered By: Luis Angel Saucedo on 05-17-2023 Monocytes (Bld) [#/Vol] 1.0 10*3/uL High 0.0-0.8 [facility] Comment on above: Performed By: #### C BC, BMP ####[address] Automated eosinophil %Ordere d By: Luis Angel Saucedo on 05-17-2023 Eosinophils/100 WBC (Bld) 1.6 % Normal . [facility] Comment on above: Performed By: #### C TRACY, BMP ####[address] Automated eosinophil countOr dered By: Luis Angel Saucedo on 05-17-2023 Eosinophils (Bld) [#/Vol] 0.2 10*3/uL Normal 0.0-0.45 [facility] Comment on above: Performed By: #### C BC, BMP ####[place] [id number] [facility] Automated monocyte %Ordered By: Luis Angel Saucedo on 05-17-2023 Monocytes/100 WBC (Bld) 10.3 % Normal . [facility] Comment on above: Performed By: #### C BC, BMP ####[place] [address] [facility] Automated neutrophil %Ordere d By: Luis Angel Saucedo on 05-17-2023 Neutrophils/100 WBC (Bld) 72.8 % Normal . [facility] Comment on above: Performed By: #### C BC, BMP ####[place] [id number] [facility] Basic Metabolic Panelon 12-0 Anion gap [Moles/Vol] Not performed Normal 6.0-15.0 [facility] Comment on above: Performed By: #### C BC, BMP ####[address] [address] [facility] GFR/1.73 sq M.predicted MDRD (S/P/Bld) [Vol rate/Area] 55.878 mL/min/{1.73_m2} Normal [facility] Comment on above: Performed By: #### C BC, BMP ####[address] [address] [facility] Potassium Normal 3.5-5.1 [facility] Comment on above: Result Comment: Spec imen hemolyzed, callback initiated if needed Performed By: #### C BC, BMP ####[address] [address] [facility] Calcium [Mass/volume] in Ser um or PlasmaOrdered By: Luis Angel Saucedo on 05-17-2023 Calcium [Mass/Vol] 9.8 mg/dL Normal 8.6-10.3 [facility] Comment on above: Result Comment: PERF ORMED BY: [facility] [address] [place] [address] PATHOLOGIST HANDLE AND VENT MACHINE OPERATOR JUDY RASMUSSEN M.D. Performed By: #### C BC, BMP ####[address] [address] [facility] Carbon dioxide, total [Moles /volume] in Serum or PlasmaOrdered By: Luis Angel Saucedo on 05-17-2023 CO2 [Moles/Vol] 25.5 mmol/L Normal 21.0-31.0 [facility] Comment on above: Performed By: #### C BC, BMP ####[place] [id number] [place] Chloride [Moles/volume] in S tyron or PlasmaOrdered By: Luis Angel Saucedo on 05-17-2023 Chloride [Moles/Vol] 108 mmol/L High 98-107 [facility] Comment on above: Performed By: #### C BC, BMP ####[place] [address] [place] [id number] [facility] Complete Blood Count Auto Di ffon 05-17-2023 Mean Corpuscular HGB Conc 33.3 g/dL Normal 32.0-35.0 [facility] Comment on above: Performed By: #### C BC, BMP ####[place] [address] [place] [address] [facility] NRBC% 0.1 /100{WBC} Normal 0-0.5 [facility] Comment on above: Performed By: #### C BC, BMP ####[place] [address] [place] [id number] [facility] Creatinine [Mass/volume] in Serum or PlasmaOrdered By: Luis Angel Saucedo on 05-17-2023 Creatinine [Mass/Vol] 0.99 mg/dL Normal 0.60-1.20 [facility] Comment on above: Performed By: #### C TRACY, BMP ####[place] [address] [place] [id number] [facility] ECG 12 lead ECGon 05-17-2023 ECG 12 lead ECG [facility] [address] [place] [address] Electrocardiograph Report Signed Patient: Nora Gibbs MR#: [id number] : 1940 Acct:[id number] Age/Sex: 83 / F ADM Date: 05/17/23 Loc: Room: Type: [facility] Attending Dr: Luis Angel Saucedo MD [...] change was found Confirmed by ARPAN [facility], STEFANIE (137) on 05/17/2023 3:19:51 PM Referred By: LEWIS Electronically Signed By:STEFANIE ANTONY MD [facility] Transcribed By: ANI Signed By Stefanie Antony MD, [facility] 05/17/23 1519 Normal [facility] Erythrocyte distribution wid th [Ratio] by Automated countOrdered By: Luis Angel Saucedo on 05-17-2023 Erythrocyte distribution width (RBC) [Ratio] 14.3 % Normal 11.9-15.3 [facility] Comment on above: Performed By: #### C BC, BMP ####[place] [address] [place] [id number] [facility] Erythrocytes [#/volume] in B lood by Automated countOrdered By: Luis Angel Saucedo on 05-17-2023 RBC (Bld) [#/Vol] 4.16 10*6/uL Normal 3.60-5.00 [facility] Comment on above: Performed By: #### C BC, BMP ####[place] [id number] [facility] Glucose [Mass/volume] in Ser um or PlasmaOrdered By: Luis Angel Saucedo on 05-17-2023 Glucose [Mass/Vol] 101 mg/dL High 70-100 [facility] Comment on above: ADA recommended refe rence rangeRandom Glucose Reference Range is dependent on time and content of last meal. Glucose of more than 200 mg/dL in a nonstressed, ambulatory subject supports the diagnosis of Diabetes Mellitus. Result Comment: [place] Glucose Reference Range is dependent on time and content of last meal. Glucose of more than 200 mg/dL in a nonstressed, ambulatory subject supports the diagnosis of Diabetes Mellitus. ADA recommended reference range Performed By: #### C BC, BMP ####[place] [address] [place] [id number] [facility] Hematocrit [Volume Fraction] of Blood by Automated countOrdered By: Luis Angel Saucedo on 05-17-2023 Hematocrit (Bld) [Volume fraction] 36.6 % Normal 34.0-46.4 [facility] Comment on above: Performed By: #### C BC, BMP ####[place] [id number] [facility] Hemoglobin [Mass/volume] in BloodOrdered By: Luis Angel Saucedo on 05-17-2023 Hemoglobin (Bld) [Mass/Vol] 12.2 g/dL Normal 11.8-15.4 [facility] Comment on above: Performed By: #### C , BMP ####[place] [address] [facility] Leukocytes [#/volume] correc katia for nucleated erythrocytes in Blood by Automated counOrdered By: Luis Angel Saucedo on 05-17-2023 WBC corrected for nucl RBC Auto (Bld) [#/Vol] 10.1 10*3/uL 3.8-11.6 [facility] Leukocytes [#/volume] in Blo od by Automated countOrdered By: Luis Angel Saucedo on 05-17-2023 WBC (Bld) [#/Vol] 10.1 10*3/uL Normal 3.8-11.6 [facility] Comment on above: Performed By: #### C , BMP ####[place] [address] [facility] Lymphocytes [#/volume] in Bl ood by Automated countOrdered By: Luis Angel Saucedo on 05-17-2023 Lymphocytes (Bld) [#/Vol] 1.5 10*3/uL Normal 1.00-4.8 [facility] Comment on above: Performed By: #### C TRACY, BMP ####[place] [id number] [facility] Lymphocytes/100 leukocytes i n Blood by Automated countOrdered By: Luis Angel Saucedo on 05-17-2023 Lymphocytes/100 WBC (Bld) 14.6 % Normal . [facility] Comment on above: Performed By: #### C , BMP ####[place] [address] [facility] MCH [Entitic mass] by Automa katia countOrdered By: Luis Angel Saucedo on 05-17-2023 MCH (RBC) [Entitic mass] 29.4 pg Normal 24.7-34.3 [facility] Comment on above: Performed By: #### C TRACY, BMP ####[place] [address] MCHC Auto (RBC) [Mass/Vol]Or dered By: Luis Angel Saucedo on 05-17-2023 MCHC (RBC) [Mass/Vol] 33.3 g/dL 32.0-35.0 [facility] MCV [Entitic volume] by Auto mated countOrdered By: Luis Angel Saucedo on 05-17-2023 MCV (RBC) [Entitic vol] 88.1 fL Normal 80-100 [facility] Comment on above: Performed By: #### C TRACY, BMP ####[address] Neutrophils [#/volume] in Bl ood by Automated countOrdered By: Luis Angel Saucedo on 05-17-2023 Neutrophils (Bld) [#/Vol] 7.3 10*3/uL Normal 1.8-7.7 [facility] Comment on above: Performed By: #### C TRACY, BMP ####[address] No Panel InformationOrdered By: Luis Angel Saucedo on 05-17-2023 Estimated GFR (CKD-EPI) 55.878 mL/Min [facility] Creatinine Clearance (Chem N/A [facility] Nucleated erythrocytes [Pres ence] in Blood by Automated countOrdered By: Luis Angel Saucedo on 05-17-2023 Nucleated RBC Auto Ql (Bld) 0.1 /100{WBC} 0-0.5 [facility] Platelet mean volume [Entiti c volume] in Blood by Automated countOrdered By: Luis Angel Saucedo on 05-17-2023 Platelet mean volume (Bld) [Entitic vol] 10.6 fL Normal 6.3-10.7 [facility] Comment on above: Performed By: #### C TRACY, BMP ####[address] Platelets [#/volume] in Bloo d by Automated countOrdered By: Luis Angel Saucedo on 05-17-2023 Platelets (Bld) [#/Vol] 228 10*3/uL Normal 150-450 [facility] Comment on above: Performed By: #### C TRACY, BMP ####[facility] [id number] [place] [address] [facility] Potassium [Moles/volume] in Serum or PlasmaOrdered By: Luis Angel Saucedo on 05-17-2023 Potassium [Moles/Vol] See comment 3.5-5.1 [facility] Comment on above: Specimen hemolyzed, callback initiated if needed Serum or plasma anion gap de terminationOrdered By: Luis Angel Saucedo on 05-17-2023 Anion gap [Moles/Vol] TNP [facility] Comment on above: Test not performed Sodium [Moles/volume] in Ser um or PlasmaOrdered By: Luis Angel Saucedo on 05-17-2023 Sodium [Moles/Vol] 141 mmol/L Normal 136-145 [facility] Comment on above: Performed By: #### C TRACY, BMP ####[place] [address] [place] [address] [facility] Urea nitrogen [Mass/volume] in Serum or PlasmaOrdered By: Luis Angel Saucedo on 05-17-2023 Urea nitrogen [Mass/Vol] 19 mg/dL Normal 7-25 [facility] Comment on above: Performed By: #### C TRACY, BMP ####[place] [address] [place] [address] [facility] Physician Referralon [facility] Physician Referral [phone] [phone] [id number] Normal [facility] CULTURE WOUNDon 08-17-2022 CULTURE WOUND Culture Observations : LIGHT GROWTH OF NORMAL SKIN ARIES. Culture Observations: NO GROWTH OF ANAEROBES AT 72 HOURS. Normal [facility] Comment on above: Performed By: #### W OUNDCX #### [facility] [address] [address] [address] Michael Hunt MG MAMM DIAGNOSTIC 3D GERARDO CA Don 08-17-2022 MG MAMM DIAGNOSTIC 3D GERARDO CAD Patient: NORA GIBBS Exam Date: 08/17/2022 : 1940 Gender:F Ordering : DR NOBLE HAYES D.O. Admission #: [id number] Family : Order #: [id number] CLICK HERE TO VIEW EXAM RADIOLOGY REPORT [...] liver/uterine cancer at age 62. LOCATION: [facility] BREAST COMPOSITION: Scattered areas fibroglandular density. [...] MD on 08/17/2022 at 14:32 Normal [facility] US BREAST RIGHT LIMITEDon US BREAST RIGHT LIMITED Patient: NORA GIBBS Exam Date: 08/17/2022 : 1940 Gender:F Ordering : DR NOBLE HAYES D.O. Admission #: [id number] Family : Order #: [id number] CLICK HERE TO VIEW EXAM RADIOLOGY REPORT PROCEDURE: MAMMOGRAM DIAGNOSTIC 3D BILATERAL CAD, 08/17/2022, 13:48 ULTRASOUND BREAST RIGHT LIMITED, 08/17/2022, 13:27 COMPARISON: MG MAMM DIAGNOSTIC 3D GERARDO CAD, 10/11/2020. MG MAMM SCREEN 3D GERARDO CAD, 10/12/2021. INDICATIONS: Abscess of breast Calculator Name [facility] Breast Cancer Risk Assessment Tool 5 Year Breast Cancer Risk n/a% Lifetime Breast Cancer Risk n/a% Personal Breast Cancer Yes, right side breast CA, 75 Personal Ovarian Cancer No Treatments lumpectomy, radiation therapy Family Cancers Sister with breast cancer at age 60; Sister with breast cancer at age 61; Mother with liver/uterine cancer at age 64. LOCATION: [facility] BREAST COMPOSITION: Scattered areas fibroglandular density. [...] Lopez MD on 08/17/2022 at 14:32 Normal [facility] US BREAST RIGHT LIMITED [employer] Other CBC AUTO DIFFon 01-26-2022 BASO # 0.1 103/ul Normal 0.0-0.1 [facility] Comment on above: Performed By: #### C BC #### [facility] [address] [address] [address] Michael Hunt Basophils/100 WBC (Bld) 0.4 % Normal 0.2-2.0 [facility] Comment on above: Performed By: #### C BC #### [facility] [address] [address] [address] Michael Hunt EO # 0.3 103/ul Normal 0.0-0.7 [facility] Comment on above: Performed By: #### C BC #### [facility] [address] [address] [address] Michael Hunt Eosinophils/100 WBC (Bld) 2.5 % Normal 0.9-7.0 [facility] Comment on above: Performed By: #### C BC #### [facility] [address] [place] [address] Dr. Michael Hunt Erythrocyte distribution width (RBC) [Ratio] 14.9 % Normal 11.0-15.0 [facility] Comment on above: Performed By: #### C BC #### [facility] [address] [place] [address] Dr. Michael Hunt Hematocrit (Bld) [Volume fraction] 37.0 % Normal 36.0-48.0 [facility] Comment on above: Performed By: #### C BC #### [facility] [address] [place] [address] Dr. Michael Hunt Hemoglobin (Bld) [Mass/Vol] 11.9 g/dL Critically low 12.0-16.0 [facility] Comment on above: Performed By: #### C BC #### [facility] [address] [address] [address] Michael Hunt IG # 0.06 10e3/ul Critically high 0.00-0.03 [facility] Comment on above: Performed By: #### C BC #### [facility] [address] [address] [address] Michael Hunt IG % 0.5 % Normal 0.0-0.5 [facility] Comment on above: Performed By: #### C BC #### [facility] [address] [address] [address] Michael Hunt LYMPH # 1.7 103/ul Normal 1.2-3.8 [facility] Comment on above: Performed By: #### C BC #### [facility] [address] [place] [address] Dr. Michael Hunt Lymphocytes/100 WBC (Bld) 15.5 % Critically low 20.5-60.0 [facility] Comment on above: Performed By: #### C BC #### [facility] [address] [place] [address] Dr. Michael Hunt MANUAL DIFF REQ NO Normal [facility] Comment on above: Performed By: #### C BC #### [facility] [address] [place] [address] Dr. Michael Hunt MCH (RBC) [Entitic mass] 29.2 pg Normal 26.7-34.0 [facility] Comment on above: Performed By: #### C BC #### [facility] [address] [place] [address] Dr. Michael Hunt MCHC (RBC) [Mass/Vol] 32.2 g/dL Normal 29.9-35.2 [facility] Comment on above: Performed By: #### C BC #### [facility] [address] [place] [address] Dr. Michael Hunt MCV (RBC) [Entitic vol] 90.9 fL Normal 81.0-99.0 [facility] Comment on above: Performed By: #### C BC #### [facility] [address] [place] [address] Dr. Michael Hunt MONO # 1.2 103/ul Critically high 0.3-0.[address] [facility] Comment on above: Performed By: #### C BC #### [facility] [address] [place] [address] Dr. Michael Hunt Monocytes/100 WBC (Bld) 11.0 % Normal 1.7-12.0 [facility] Comment on above: Performed By: #### C BC #### [facility] [address] [address] [address] Michael Hunt NEUT # 7.8 103/ul Critically high 1.4-6.5 [facility] Comment on above: Performed By: #### C BC #### [facility] [address] [address] [address] Michael Hunt Neutrophils/100 WBC (Bld) 70.1 % Normal 43.0-75.0 [facility] Comment on above: Performed By: #### C BC #### [facility] [address] [address] [address] Michael Hunt Platelet mean volume (Bld) [Entitic vol] 10.2 fL Normal 9.5-13.5 [facility] Comment on above: Performed By: #### C BC #### [facility] [address] [place] [address] Dr. Michael Hunt PLT 245 103/ul Normal 150-450 [facility] Comment on above: Performed By: #### C BC #### [facility] [address] [address] [address] Michael Hunt RBC 4.07 106/ul Critically low 4.20-5.[address] [facility] Comment on above: Performed By: #### C BC #### [facility] [address] [place] [address] Dr. Michael Hunt WBC 11.1 103/ul Critically high 4.0-11.0 [facility] Comment on above: Performed By: #### C BC #### [facility] [address] [place] [address] Dr. Michael Hunt LIPID PROFILEon 01-26-2022 CHOL-HDL RATIO NORM SEE BELOW Normal [facility] Comment on above: Result Comment: 3.3 - 4.4 LOW RISK 4.4 - 7.1 AVERAGE RISK 7.1 - 11.0 MODERATE RISK >11.0 HIGH RISK Performed By: #### L IPID, ALT, TSH, BMP #### [facility] [address] [address] [address] Michael Hunt Cholesterol [Mass/Vol] 132 mg/dL Normal <=200 [facility] Comment on above: Performed By: #### L IPID, ALT, TSH, BMP #### [facility] [address] [address] [address] Michael Hunt Cholesterol in HDL [Mass/Vol] 53 mg/dL Normal 40-60 [facility] Comment on above: Performed By: #### L IPID, ALT, TSH, BMP #### [facility] [address] [address] [address] Michael Hunt Cholesterol in LDL [Mass/Vol] 43.0 mg/dL Normal [facility] Comment on above: Performed By: #### L IPID, ALT, TSH, BMP #### [facility] [address] [place] [address] Dr. Michael Hunt Cholesterol.total/Chol esterol in HDL [Mass ratio] 2.5 {ratio} Normal [facility] Comment on above: Performed By: #### L IPID, ALT, TSH, BMP #### [facility] [address] [address] [address] Michael Hunt HDL NORMAL > or = 60 mg/dl - LO W CARDIOVASCULAR RISK <40 mg/dl - HIGH CARDIOVASCULAR RISK Normal [facility] Comment on above: Performed By: #### L IPID, ALT, TSH, BMP #### [facility] [address] [address] [address] Michael Hunt LDL CALC NORMAL SEE BELOW Normal [facility] Comment on above: Result Comment: <100 mg/dl OPTIMAL 100 - 129 mg/dl NEAR OR ABOVE OPTIMAL 130 - 159 mg/dl BORDERLINE HIGH 160 - 189 mg/dl HIGH >190 mg/dl VERY HIGH Performed By: #### L IPID, ALT, TSH, BMP #### [facility] [address] [address] [address] Michael Hunt Triglyceride [Mass/Vol] 180 mg/dL Critically high <=150 [facility] Comment on above: Performed By: #### L IPID, ALT, TSH, BMP #### [facility] [address] [address] [address] Michael Hunt VLDL CALC 36.0 mg/dL Normal [facility] Comment on above: Performed By: #### L IPID, ALT, TSH, BMP #### [facility] [address] [place] [address] Dr. Michael Hunt PROF CHEM 8 (BAS METB)on Anion gap [Moles/Vol] 13.2 mmol/L Normal [facility] Comment on above: Performed By: #### L IPID, ALT, TSH, BMP #### [facility] [address] [place] [address] Dr. Michael Hunt Calcium [Mass/Vol] 9.3 mg/dL Normal 8.5-10.1 [facility] Comment on above: Performed By: #### L IPID, ALT, TSH, BMP #### [facility] [address] [place] [address] Dr. Michael Hunt Chloride [Moles/Vol] 104 mmol/L Normal 98-107 [facility] Comment on above: Performed By: #### L IPID, ALT, TSH, BMP #### [facility] [address] [place] [address] Dr. Michael Hunt CO2 [Moles/Vol] 24.7 mmol/L Normal 21.0-32.0 [facility] Comment on above: Performed By: #### L IPID, ALT, TSH, BMP #### [facility] [address] [place] [address] Dr. Michael Hunt Creatinine [Mass/Vol] 1.20 mg/dL Critically high 0.55-1.02 [facility] Comment on above: Performed By: #### L IPID, ALT, TSH, BMP #### [facility] [address] [address] [address] Michael Hunt EGFR-AF MICRONESIAN 52 mL/min/1.73m2 Critically low >=60 [facility] Comment on above: Performed By: #### L IPID, ALT, TSH, BMP #### [facility] [address] [address] [address] Michael Hunt EGFR-NON AF MICRONESIAN 43 mL/min/1.73m2 Critically low >=60 [facility] Comment on above: Performed By: #### L IPID, ALT, TSH, BMP #### [facility] [address] [address] [address] Michael Hunt Glucose [Mass/Vol] 99 mg/dL Normal 74-106 [facility] Comment on above: Performed By: #### L IPID, ALT, TSH, BMP #### [facility] [address] [place] [address] Dr. Michael Hunt Potassium [Moles/Vol] 4.9 mmol/L Normal 3.5-5.1 [facility] Comment on above: Performed By: #### L IPID, ALT, TSH, BMP #### [facility] [address] [place] [address] Dr. Michael Hunt Sodium [Moles/Vol] 137 mmol/L Normal 136-145 [facility] Comment on above: Performed By: #### L IPID, ALT, TSH, BMP #### [facility] [address] [place] [address] Dr. Michael Hunt Urea nitrogen [Mass/Vol] 30.0 mg/dL Critically high 7.0-18.0 [facility] Comment on above: Performed By: #### L IPID, ALT, TSH, BMP #### [facility] [address] [place] [address] Dr. Michael Hunt Urea nitrogen/Creatinine [Mass ratio] 25.0 mg/mg Normal [facility] Comment on above: Performed By: #### L IPID, ALT, TSH, BMP #### [facility] [address] [place] [address] Dr. Michael Hnut SGPTon 01-26-2022 ALT [Catalytic activity/Vol] 54 U/L Normal 14-59 [facility] Comment on above: Performed By: #### L IPID, ALT, TSH, BMP #### [facility] [address] [place] [address] Dr. Michael Hunt TSHon 01-26-2022 TSH 5.136 uIU/mL Critically high 0.358-3.74 0 [facility] Comment on above: Performed By: #### L IPID, ALT, TSH, BMP #### [facility] [address] [place], [place] [address] Dr. Michael Hunt Cardiovascular Lab Reporton 09-03-2018 Cardiovascular Lab Report [facility] Patient Name: So[facility]ila [facility] Marianne MR #: [id number] Department of Physician: Bala Zepeda M.D. Division of Service Date: 09/03/2018 Cardiology Birthdate: 1940 Adult Cardiovascular Room #: [facility] [address] [place], [place] [address] Cardiovascular Laboratory Report INDICATION: The patient is [...] informed consent. 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 The right groin area was prepped and draped in usual fashion. Using micropuncture technique, the right common femoral artery was accessed. The inner cannula was advanced and right femoral angiography was performed followed by upsizing to a 6-[place]er x 11 cm sheath. Access was also obtained using the same technique in the right common femoral vein and a 6-[place]er x 11 cm sheath was placed. A 6-[place]er Lee catheter was used for right heart catheterization with measurement of pressures and calculation of cardiac output using the estimated Patricia method. Lee catheter was removed. Bilateral selective coronary angiography was then performed using 6-[place] JL4 and JR4 diagnostic catheters. Catheters were removed. Heparin was administered intravenously and therapeutic ACT confirmed during the rest of the procedure and additional heparin given as needed. A 6-[place]er JR4 guiding catheter was advanced and used to engage the right coronary ostium. A [employer] wire was advanced into the distal RCA. Balloon angioplasty in the mid RCA was performed using Emerge 2.5 x 8 mm balloon inflated at 12 atmospheres. Angiography revealed suboptimal results. This was treated using a Synergy 3.0 x 12 mm drug-eluting stent deployed at 11 atmospheres and post dilated using [employer] [place] 3.0 x 8 mm noncompliant balloon inflated [...] P/Bala Zepeda M.D. Date Trans: 09/03/2018 02:15 P/surjito [id number] Normal [facility] Vital Signs Date Time Vital Sign Value Performing Clinician Facility 11-26-2024 11:49-0400 Body height 154.94 cm [employer] DO Work Phone: [facility] 11-26-2024 11:49-0400 Body mass index (BMI) [Ratio] 34.4 kg/m2 [employer] DO Work Phone: [facility] 11-26-2024 11:49-0400 Body weight 82.55 kg [employer] DO Work Phone: [facility] 11-26-2024 11:49-0400 Diastolic blood pressure 89 mm[Hg] [employer] DO Work Phone: [facility] 11-26-2024 11:49-0400 Heart rate 56 /min [employer] DO Work Phone: [facility] 11-26-2024 11:49-0400 SaO2% (BldA) [Mass fraction] 97 % [employer] DO Work Phone: [facility] 11-26-2024 11:49-0400 Systolic blood pressure 139 mm[Hg] Noble Ball DO Work Phone: [facility] 11-19-2024 13:48-0400 Body height 154.94 cm [facility] 11-19-2024 13:48-0400 Body mass index (BMI) [Ratio] 34.5 kg/m2 [facility] 11-19-2024 13:48-0400 Body weight 83 kg [facility] 11-19-2024 13:48-0400 Diastolic blood pressure 69 mm[Hg] [facility] 11-19-2024 13:48-0400 Heart rate 56 /min [facility] 11-19-2024 13:48-0400 Respiratory rate 12 /min [facility] 11-19-2024 13:48-0400 Systolic blood pressure 158 mm[Hg] [facility] 10-06-2024 13:34-0400 Body height 154.94 cm [facility] 10-06-2024 13:34-0400 Body mass index (BMI) [Ratio] 34.6 kg/m2 [facility] 10-06-2024 13:34-0400 Body weight 83.17 kg [facility] 10-06-2024 13:34-0400 Diastolic blood pressure 68 mm[Hg] [facility] 10-06-2024 13:34-0400 Heart rate 85 /min [facility] 10-06-2024 13:34-0400 Respiratory rate 24 /min [facility] 10-06-2024 13:34-0400 SaO2% (BldA) [Mass fraction] 93 % [facility] 10-06-2024 13:34-0400 Systolic blood pressure 113 mm[Hg] [facility] 08-22-2024 12:02-0400 Body height 154.94 cm [facility] 08-22-2024 12:02-0400 Body mass index (BMI) [Ratio] 34.9 kg/m2 [facility] 08-22-2024 12:02-0400 Body weight 84.02 kg [facility] 08-22-2024 12:02-0400 Diastolic blood pressure 74 mm[Hg] [facility] 08-22-2024 12:02-0400 Heart rate 54 /min [facility] 08-22-2024 12:02-0400 Respiratory rate 16 /min [facility] 08-22-2024 12:02-0400 Systolic blood pressure 163 mm[Hg] [facility] 05-27-2024 14:59-0500 Body height 154.94 cm [facility] 05-27-2024 14:59-0500 Body mass index (BMI) [Ratio] 35.2 kg/m2 [facility] 05-27-2024 14:59-0500 Body weight 84.48 kg [facility] 05-27-2024 14:59-0500 Diastolic blood pressure 71 mm[Hg] [facility] 05-27-2024 14:59-0500 Heart rate 62 /min [facility] 05-27-2024 14:59-0500 Respiratory rate 12 /min [facility] 05-27-2024 14:59-0500 Systolic blood pressure 156 mm[Hg] [facility] 02-19-2024 10:27-0400 Body height 154.94 cm DO Nika Brown Work Phone: [facility] 02-19-2024 10:27-0400 Body mass index (BMI) [Ratio] 34.7 kg/m2 DO Nika Brown Work Phone: [facility] 02-19-2024 10:27-0400 Body weight 83.46 kg DO Nika Brown Work Phone: [facility] 02-19-2024 10:27-0400 Diastolic blood pressure 66 mm[Hg] DO Nika Brown Work Phone: [facility] 02-19-2024 10:27-0400 Heart rate 60 /min DO Nika Brown Work Phone: [facility] 02-19-2024 10:27-0400 Respiratory rate 20 /min DO Nika Brown Work Phone: [facility] 02-19-2024 10:27-0400 Systolic blood pressure 170 mm[Hg] DO Nika Brown Work Phone: [facility] 12-07-2023 11:49-0400 Body height 154.94 cm DO Nika Brown Work Phone: [facility] 12-07-2023 11:49-0400 Body mass index (BMI) [Ratio] 34.2 kg/m2 DO Nika Brown Work Phone: [facility] 12-07-2023 11:49-0400 Body weight 82.15 kg DO Nika Brown Work Phone: [facility] 12-07-2023 11:49-0400 Diastolic blood pressure 72 mm[Hg] DO Nika Brown Work Phone: [facility] 12-07-2023 11:49-0400 Heart rate 69 /min DO Nika Brown Work Phone: [facility] 12-07-2023 11:49-0400 Respiratory rate 20 /min DO Nika Brown Work Phone: [facility] 12-07-2023 11:49-0400 SaO2% (BldA) [Mass fraction] 98 % DO Nika Brown Work Phone: [facility] 12-07-2023 11:49-0400 Systolic blood pressure 150 mm[Hg] DO Nika Brown Work Phone: [facility] 12-01-2023 15:17-0400 Diastolic blood pressure 72 mm[Hg] DO Nika Brown Work Phone: [facility] 12-01-2023 15:17-0400 Heart rate 60 /min DO Nika Brown Work Phone: [facility] 12-01-2023 15:17-0400 Respiratory rate 20 /min DO Nika Brown Work Phone: [facility] 12-01-2023 15:17-0400 SaO2% (BldA) [Mass fraction] 96 % DO Nika Brown Work Phone: [facility] 12-01-2023 15:17-0400 Systolic blood pressure 137 mm[Hg] DO Nika Brown Work Phone: [facility] 12-01-2023 11:55-0400 Body temperature 97.4 [degF] DO Nika Brown Work Phone: [facility] 12-01-2023 06:08-0400 Body weight 80.5 kg DO Nika Brown Work Phone: [facility] 11-30-2023 15:41-0400 Body height 154.94 cm DO Nika Brown Work Phone: [facility] 11-30-2023 14:47-0400 Diastolic blood pressure 76 mm[Hg] DO Nika Brown Work Phone: [facility] 11-30-2023 14:47-0400 Heart rate 65 /min DO Nika Brown Work Phone: [facility] 11-30-2023 14:47-0400 Respiratory rate 16 /min DO Nika Brown Work Phone: [facility] 11-30-2023 14:47-0400 SaO2% (BldA) [Mass fraction] 97 % DO Nika Brown Work Phone: [facility] 11-30-2023 14:47-0400 Systolic blood pressure 191 mm[Hg] DO Nika Brown Work Phone: [facility] 11-30-2023 10:13-0400 Body height 154.94 cm DO Nika Brown Work Phone: [facility] 11-30-2023 10:13-0400 Body weight 82.1 kg DO Nika Brown Work Phone: [facility] 11-30-2023 10:12-0400 Body temperature 98.6 [degF] DO Nika Fagan Work Phone: [facility] 11-19-2023 11:24-0400 Body height 152.4 cm DO Noble Ball Work Phone: [facility] 11-19-2023 11:24-0400 Body mass index (BMI) [Ratio] 35.9 kg/m2 DO Noble Ball Work Phone: [facility] 11-19-2023 11:24-0400 Body weight 83.51 kg DO Noble Ball Work Phone: [facility] 11-19-2023 11:24-0400 Diastolic blood pressure 76 mm[Hg] DO Noble Ball Work Phone: [facility] 11-19-2023 11:24-0400 Heart rate 67 /min DO Noble Ball Work Phone: [facility] 11-19-2023 11:24-0400 Respiratory rate 12 /min DO Noble Ball Work Phone: [facility] 11-19-2023 11:24-0400 SaO2% (BldA) [Mass fraction] 97 % DO Noble Ball Work Phone: [facility] 11-19-2023 11:24-0400 Systolic blood pressure 142 mm[Hg] DO Noble Ball Work Phone: [facility] 08-28-2023 09:48-0400 Body height 152.4 cm DO Noble Ball Work Phone: [facility] 08-28-2023 09:48-0400 Body mass index (BMI) [Ratio] 35.2 kg/m2 DO Noble Ball Work Phone: [facility] 08-28-2023 09:48-0400 Body weight 81.64 kg DO Noble Ball Work Phone: [facility] 08-28-2023 09:24-0400 Body temperature 96.6 [degF] DO Noble Ball Work Phone: [facility] 08-28-2023 09:24-0400 Diastolic blood pressure 57 mm[Hg] DO Noble Ball Work Phone: [facility] 08-28-2023 09:24-0400 Heart rate 65 /min DO Noble Ball Work Phone: [facility] 08-28-2023 09:24-0400 Respiratory rate 18 /min DO Noble Ball Work Phone: [facility] 08-28-2023 09:24-0400 Systolic blood pressure 161 mm[Hg] DO Noble Ball Work Phone: [facility] 08-10-2023 13:57-0500 Body height 152.4 cm DO Noble Ball Work Phone: [facility] 08-10-2023 13:57-0500 Body mass index (BMI) [Ratio] 35.4 kg/m2 DO Noble Ball Work Phone: [facility] 08-10-2023 13:57-0500 Body weight 82.27 kg DO Noble Ball Work Phone: [facility] 08-10-2023 13:57-0500 Diastolic blood pressure 70 mm[Hg] DO Noble Ball Work Phone: [facility] 08-10-2023 13:57-0500 Heart rate 73 /min DO Noble Ball Work Phone: [facility] 08-10-2023 13:57-0500 Respiratory rate 12 /min DO Noble Ball Work Phone: [facility] 08-10-2023 13:57-0500 Systolic blood pressure 150 mm[Hg] DO Noble Ball Work Phone: [facility] 08-07-2023 09:54-0500 Body height 152.4 cm DO Noble Ball Work Phone: [facility] 08-07-2023 09:54-0500 Body mass index (BMI) [Ratio] 35.2 kg/m2 DO Noble Ball Work Phone: [facility] 08-07-2023 09:54-0500 Body weight 81.64 kg DO Noble Ball Work Phone: [facility] 07-16-2023 11:30-0500 Body height 154.94 cm Noble Ball Other [employer] Other 07-16-2023 11:30-0500 Body mass index (BMI) [Ratio] 33.74 kg/m2 Noble Ball Other [employer] [facility] [employer] Other 07-16-2023 11:30-0500 Body weight 81.01 kg Noble Ball Other [employer] [facility] [employer] Other 07-16-2023 11:30-0500 Diastolic blood pressure 72 mm[Hg] Noble Ball Other [facility] [employer] Other 07-16-2023 11:30-0500 Respiratory rate 12 /min Noble Ball Other [employer] Other 07-16-2023 11:30-0500 Systolic blood pressure 133 mm[Hg] Noble Ball Other [employer] Other 05-28-2023 14:28-0500 Diastolic blood pressure 63 mm[Hg] DO Noble Ball Work Phone: [facility] 05-28-2023 14:28-0500 Heart rate 58 /min DO Noble Ball Work Phone: [facility] 05-28-2023 14:28-0500 Respiratory rate 16 /min DO Noble Ball Work Phone: [facility] 05-28-2023 14:28-0500 SaO2% (BldA) [Mass fraction] 94 % DO Noble Ball Work Phone: [facility] 05-28-2023 14:28-0500 Systolic blood pressure 116 mm[Hg] DO Noble Ball Work Phone: [facility] 05-28-2023 13:22-0500 Inhaled oxygen flow rate 6 L/min DO Noble Ball Work Phone: [facility] 05-28-2023 13:07-0500 Body temperature 97.4 [degF] DO Noble Ball Work Phone: [facility] [facility] 05-28-2023 12:32-0500 Body height 154.94 cm DO Noble Ball Work Phone: [facility] 05-28-2023 12:32-0500 Body mass index (BMI) [Ratio] 33.7 kg/m2 DO Noble Ball Work Phone: [facility] 05-28-2023 12:32-0500 Body weight 81 kg DO Noble Ball Work Phone: [facility] 05-15-2023 09:57-0500 Body height 152.4 cm DO Noble Ball Work Phone: [facility] 05-15-2023 09:57-0500 Body mass index (BMI) [Ratio] 35.2 kg/m2 DO Noble Ball Work Phone: [facility] 05-15-2023 09:57-0500 Body weight 81.64 kg DO Noble Ball Work Phone: [facility] 05-15-2023 09:12-0500 Body temperature 98.1 [degF] DO Noble Ball Work Phone: [facility] 05-15-2023 09:12-0500 Diastolic blood pressure 69 mm[Hg] DO Noble Ball Work Phone: [facility] 05-15-2023 09:12-0500 Heart rate 68 /min DO Noble Ball Work Phone: [facility] 05-15-2023 09:12-0500 Respiratory rate 18 /min DO Noble Ball Work Phone: [facility] 05-15-2023 09:12-0500 Systolic blood pressure 168 mm[Hg] DO Noble Ball Work Phone: [facility] 03-13-2023 14:30-0400 Body height 154.94 cm Noble Ball Other [employer] Other 03-13-2023 14:30-0400 Body mass index (BMI) [Ratio] 34.01 kg/m2 Noble Ball Other [employer] Other 03-13-2023 14:30-0400 Body weight 81.65 kg Noble Ball Other [employer] Other 03-13-2023 14:30-0400 Diastolic blood pressure 62 mm[Hg] Noble Ball Other [employer] Other 03-13-2023 14:30-0400 Systolic blood pressure 122 mm[Hg] Noble Ball Other [employer] Other 12-25-2022 15:45-0400 Body height 154.94 cm Noble Ball Other [employer] Other 12-25-2022 15:45-0400 Body mass index (BMI) [Ratio] 33.97 kg/m2 Noble Ball Other [employer] Other 12-25-2022 15:45-0400 Body weight 81.56 kg Noble Ball Other [employer] Other 12-25-2022 15:45-0400 Diastolic blood pressure 70 mm[Hg] Noble Ball Other [employer] Other 12-25-2022 15:45-0400 Respiratory rate 12 /min Noble Ball Other [employer] Other 12-25-2022 15:45-0400 Systolic blood pressure 147 mm[Hg] Noble Ball Other [employer] Other 09-27-2022 12:00-0400 Body height 154.94 cm Noble Ball Other [employer] Other 09-27-2022 12:00-0400 Body mass index (BMI) [Ratio] 34.5 kg/m2 Noble Ball Other [employer] Other 09-27-2022 12:00-0400 Body weight 82.83 kg Noble Ball Other [employer] Other 09-27-2022 12:00-0400 Diastolic blood pressure 86 mm[Hg] Noble Ball Other [employer] Other 09-27-2022 12:00-0400 Respiratory rate 12 /min Noble Ball Other [employer] Other 09-27-2022 12:00-0400 Systolic blood pressure 122 mm[Hg] Noble Ball Other [employer] Other 08-17-2022 10:15-0500 Body height 154.94 cm Noble Ball Other [employer] Other 08-17-2022 10:15-0500 Body mass index (BMI) [Ratio] 34.91 kg/m2 Noble Ball Other [employer] Other 08-17-2022 10:15-0500 Body weight 83.83 kg Noble Ball Other [employer] Other 08-17-2022 10:15-0500 Diastolic blood pressure 78 mm[Hg] Noble Ball Other [employer] Other 08-17-2022 10:15-0500 Respiratory rate 12 /min Noble Ball Other [employer] Other 08-17-2022 10:15-0500 Systolic blood pressure 116 mm[Hg] Noble Ball Other [employer] Other 08-10-2022 10:15-0500 Body height 154.94 cm Noble Ball Other [employer] Other 08-10-2022 10:15-0500 Body mass index (BMI) [Ratio] 34.91 kg/m2 Noble Ball Other [employer] Other 08-10-2022 10:15-0500 Body weight 83.83 kg Noble Ball Other [employer] Other 08-10-2022 10:15-0500 Diastolic blood pressure 76 mm[Hg] Noble Ball Other [employer] Other 08-10-2022 10:15-0500 Respiratory rate 12 /min Noble Ball Other [employer] Other 08-10-2022 10:15-0500 Systolic blood pressure 112 mm[Hg] Noble Ball Other [employer] Other 10-19-2021 12:57-0400 Body height 157.5 cm Genny Vianey PA-C Work Phone: [facility] 10-19-2021 12:57-0400 Body temperature 97.7 [degF] Genny Vianey PA-C Work Phone: [facility] 10-19-2021 12:57-0400 Body weight 83.28 kg Genny Vianey PA-C Work Phone: [facility] 10-19-2021 12:57-0400 Diastolic blood pressure 52 mm[Hg] Genny Vianey PA-C Work Phone: [facility] 10-19-2021 12:57-0400 Heart rate 69 /min Genny Vianey PA-C Work Phone: [facility] 10-19-2021 12:57-0400 Respiratory rate 18 /min Genny Vianey PA-C Work Phone: [facility] 10-19-2021 12:57-0400 SaO2% (BldA) [Mass fraction] 94 % Genny Vianey PA-C Work Phone: [facility] 10-19-2021 12:57-0400 Systolic blood pressure 164 mm[Hg] Genny Vianey PA-C Work Phone: [facility] Encounters Encounter Date Encounter Type Care Provider Facility Start: 12-31-2024 End: 12-31-2024 ambulatory Noble Hayes DO Work Phone: [facility] Work Phone: Start: 12-31-2024 End: 12-31-2024 Patient encounter procedure Noble Hayes DO -[facility] Work Phone: Start: 12-29-2024 End: 12-29-2024 ambulatory [facility] Start: 12-01-2024 End: 12-01-2024 Patient encounter procedure Noble Hayes DO -[facility] Work Phone: Start: 11-26-2024 End: 11-26-2024 Patient encounter procedure Noble Hayes DO -[facility] Work Phone: Start: 11-24-2024 Non-patient / Non-visit Ly Pollock BUFFER CHROME -[facility] Work Phone: Start: 11-21-2024 Evaluation and manag ement of inpatient [facility] Start: 11-21-2024 ambulatory [facility] Start: 11-21-2024 End: 11-22-2024 Evaluation and management of inpatient HUANG [facility] Start: 11-19-2024 End: 11-19-2024 ambulatory [facility] Work Phone: Start: 11-19-2024 End: 11-19-2024 Patient encounter procedure [facility] Work Phone: Start: 11-14-2024 Non-patient / Non-visit [facility] Work Phone: Start: 10-29-2024 End: 10-29-2024 Patient encounter procedure [facility] Work Phone: Start: 10-09-2024 Non-patient / Non-visit [facility] Work Phone: Start: 10-06-2024 End: 10-06-2024 ambulatory [facility] Work Phone: Start: 10-06-2024 End: 10-06-2024 Patient encounter procedure [facility] Work Phone: Start: 10-06-2024 Non-patient / Non-visit [facility] Work Phone: Start: 10-04-2024 Non-patient / Non-visit [facility] Work Phone: Start: 09-29-2024 End: 09-29-2024 ambulatory [facility] Work Phone: Start: 09-29-2024 End: 09-29-2024 Patient encounter procedure [facility] Work Phone: Start: 09-26-2024 End: 09-26-2024 ambulatory [facility] Start: 08-27-2024 End: 08-27-2024 ambulatory [facility] Work Phone: Start: 08-27-2024 End: 08-27-2024 Patient encounter procedure [facility] Work Phone: Start: 08-22-2024 End: 08-22-2024 ambulatory [facility] Work Phone: Start: 08-22-2024 End: 08-22-2024 Patient encounter procedure [facility] Work Phone: Start: 07-28-2024 End: 07-28-2024 ambulatory [facility] Work Phone: Start: 07-28-2024 End: 07-28-2024 Patient encounter procedure [facility] Work Phone: Start: 07-21-2024 End: 07-21-2024 ambulatory [facility] Start: 06-23-2024 End: 06-23-2024 ambulatory [facility] Work Phone: Start: 06-23-2024 End: 06-23-2024 Patient encounter procedure [facility] Work Phone: Start: 05-30-2024 Non-patient / Non-visit [facility] Work Phone: Start: 05-27-2024 End: 05-27-2024 Patient encounter procedure [facility] Work Phone: Start: 05-25-2024 Patient encounter procedure [facility] Start: 05-21-2024 End: 05-21-2024 Patient encounter procedure [facility] Work Phone: Start: 04-21-2024 End: 04-21-2024 ambulatory [facility] Work Phone: Start: 04-21-2024 End: 04-21-2024 Patient encounter procedure [facility] Work Phone: Start: 03-19-2024 End: 03-19-2024 ambulatory [facility] Work Phone: Start: 03-19-2024 End: 03-19-2024 Patient encounter procedure [facility] Work Phone: Start: 03-19-2024 End: 03-19-2024 ambulatory [facility] Start: 02-26-2024 Non-patient / Non-visit [facility] Work Phone: Start: 02-25-2024 Non-patient / Non-visit [facility] Work Phone: Start: 02-19-2024 End: 02-19-2024 ambulatory DO Nika Fagan Work Phone: [facility] Work Phone: Start: 02-19-2024 End: 02-19-2024 Patient encounter procedure DO Nika Fagan Work Phone: [facility] Work Phone: Start: 02-15-2024 End: 02-15-2024 ambulatory DO Nika Fagan Work Phone: [facility] Work Phone: Start: 02-15-2024 End: 02-15-2024 Patient encounter procedure DO Nika Fagan Work Phone: [facility] Work Phone: Start: 01-24-2024 Non-patient / Non-visit DO Paulina janelle Fagan Work Phone: [facility] Work Phone: Start: 01-17-2024 Non-patient / Non-visit DO Paulina janelle Fagan Work Phone: [facility] Work Phone: Start: 01-14-2024 End: 01-14-2024 ambulatory DO Nika Fagan Work Phone: [facility] Work Phone: Start: 01-14-2024 End: 01-14-2024 Patient encounter procedure DO Nika Fagan Work Phone: [facility] Work Phone: Start: 12-10-2023 End: 12-10-2023 ambulatory DO Nika Fagan Work Phone: [facility] Work Phone: Start: 12-10-2023 End: 12-10-2023 Patient encounter procedure DO Nika Fagan Work Phone: [facility] Work Phone: Start: 12-07-2023 End: 12-07-2023 ambulatory DO Nika Fagan Work Phone: [facility] Work Phone: Start: 12-07-2023 End: 12-07-2023 Patient encounter procedure DO Nika Fagan Work Phone: [facility] Work Phone: Start: 12-03-2023 Non-patient / Non-visit DO Paulina Fagan Work Phone: [facility] Work Phone: Start: 11-30-2023 End: 12-01-2023 Evaluation and management of inpatient DO Nika Fagan Work Phone: [facility] [place] [facility] Work Phone: Start: 11-30-2023 End: 12-01-2023 observation encounter DO Nika Fagan Work Phone: [facility] Work Phone: Start: 11-30-2023 End: 12-01-2023 ambulatory Jim Clay Facility:[facility] Start: 11-20-2023 Non-patient / Non-visit DO Paulina Fagan Work Phone: [facility] Work Phone: Start: 11-19-2023 End: 11-19-2023 ambulatory DO Noble Ball Work Phone: [facility] Work Phone: Start: 11-19-2023 End: 11-19-2023 Patient encounter procedure DO Noble Ball Work Phone: [facility] Work Phone: Start: 11-08-2023 End: 11-08-2023 ambulatory DO Noble Ball Work Phone: [facility] Work Phone: Start: 11-08-2023 End: 11-08-2023 Patient encounter procedure DO Noble Ball Work Phone: [facility] Work Phone: Start: 10-08-2023 End: 10-08-2023 ambulatory DO Noble Ball Work Phone: [facility] Work Phone: Start: 10-08-2023 End: 10-08-2023 Patient encounter procedure DO Noble Ball Work Phone: [facility] Work Phone: Start: 09-06-2023 End: 09-06-2023 ambulatory DO Noble Ball Work Phone: [facility] Work Phone: Start: 09-06-2023 End: 09-06-2023 Patient encounter procedure DO Noble Ball Work Phone: [facility] Work Phone: Start: 08-28-2023 End: 08-28-2023 ambulatory DO Noble Ball Work Phone: [facility] Work Phone: Start: 08-28-2023 End: 08-28-2023 Discharged Recurring DO Noble Hayes Work Phone: [facility] Work Phone: Start: 08-10-2023 End: 08-10-2023 Patient encounter procedure DO Nobel Hayes Work Phone: [facility] Work Phone: Start: 08-06-2023 End: 08-06-2023 Patient encounter procedure DO Noble Hayes Work Phone: [facility] Work Phone: Start: 08-06-2023 Non-patient / Non-visit DO Prasanna Hayes Work Phone: [facility] Work Phone: Start: 07-16-2023 End: 07-16-2023 ambulatory Noble Ball Other [employer] Other Start: 07-16-2023 Office outpatient vi sit 25 minutes Noble Marty [facility] Start: 07-13-2023 End: 07-13-2023 ambulatory Noble Ball Other [employer] Other Start: 07-13-2023 Telephone encounter Noble TALAVERA [facility] Start: 07-04-2023 End: 07-04-2023 ambulatory Noble Ball Other [employer] Other Start: 07-04-2023 Nursing evaluation o f patient and report Noble Hayes [facility] Start: 05-30-2023 End: 05-30-2023 ambulatory Noble Ball Other [employer] Other Start: 05-30-2023 Nursing evaluation o f patient and report Noble Hayes [facility] Start: 05-28-2023 Telephone encounter Noble Ball [facility] Start: 05-28-2023 End: 05-28-2023 Admission to same day surgery center DO Noble Hayes Work Phone: [facility] [place] Start: 05-28-2023 End: 05-28-2023 ambulatory DO Noble Hayes Work Phone: [facility] Work Phone: Start: 05-17-2023 End: 05-17-2023 Patient encounter procedure DO Noble Hayes Work Phone: [facility]-Pre-Surgical Testing Work Phone: Start: 05-17-2023 End: 05-17-2023 ambulatory DO Noble Hayes Work Phone: [facility] Work Phone: Start: 05-15-2023 Registered Recurring DO Rajni in Ball Work Phone: [facility] [place] Work Phone: Start: 04-26-2023 End: 04-26-2023 ambulatory Gayle Wade Other [employer] Other Start: 04-26-2023 Nursing evaluation o f patient and report Gayle Wade [facility] Start: 04-10-2023 End: 04-10-2023 ambulatory Noble Hayes Other [employer] Other Start: 04-10-2023 Telephone encounter Noble [facility]ALAVERA [facility] Start: 03-13-2023 End: 03-13-2023 ambulatory Noble Hayes Other [employer] Other Start: 03-13-2023 Patient encounter procedure Noble Hayes [facility] Start: 02-15-2023 End: 02-15-2023 ambulatory Noble Hayes Other [employer] Other Start: 02-15-2023 Nursing evaluation o f patient and report Noble Hayes [facility] Start: 01-26-2023 End: 01-26-2023 ambulatory Noble Hayes Other [employer] Other Start: 01-26-2023 Telephone encounter Noble Hayes [facility] Start: 01-21-2023 End: 01-21-2023 ambulatory Noble Hayes Other [employer] Other Start: 01-21-2023 Telephone encounter Noble Hayes [facility] Start: 01-17-2023 End: 01-17-2023 ambulatory Noble Hayes Other [employer] Other Start: 01-17-2023 Telephone encounter Noble Hayes [facility] Start: 01-15-2023 End: 01-15-2023 ambulatory Noble Hayes Other [employer] Other Start: 01-15-2023 Nursing evaluation o f patient and report Noble Hayes [facility] Start: 01-02-2023 End: 01-02-2023 ambulatory Noble Hayes Other [employer] Other Start: 01-02-2023 Telephone encounter Noble Hayes [facility] Start: 12-27-2022 End: 12-27-2022 ambulatory Noble Hayes Other [employer] Other Start: 12-27-2022 Telephone encounter Noble Ball [facility] Start: 12-26-2022 End: 12-26-2022 ambulatory Noble Hayes Other [employer] Other Start: 12-26-2022 Telephone encounter Noble Hayes [facility] Start: 12-25-2022 End: 12-25-2022 ambulatory Noble Ball Other [employer] Other Start: 12-25-2022 Office outpatient vi sit 25 minutes Noble Hayes [facility] Start: 12-14-2022 End: 12-14-2022 ambulatory Noble Hayes Other [employer] Other Start: 12-14-2022 Nursing evaluation o f patient and report Noble Hayes [facility] Start: 11-13-2022 End: 11-13-2022 ambulatory Noble Hayes Other [employer] Other Start: 11-13-2022 Nursing evaluation o f patient and report Noble Hayes [facility] Start: 11-09-2022 ambulatory RITU TAMLYN . Facility: [facility] Start: 11-07-2022 ambulatory RITU TAMLYN . Facility: [facility] Start: 11-02-2022 End: 11-03-2022 ambulatory NOBLE HAYES Facility:[facility] Start: 10-30-2022 End: 10-31-2022 [...] o f patient and report Noble Hayes [facility] Start: 10-12-2022 End: 10-13-2022 ambulatory RITU TAMLYN . [employer] Other Start: 09-27-2022 End: 09-27-2022 ambulatory Noble Hayes Other [employer] Other Start: 09-27-2022 Office outpatient vi sit 25 minutes Noble Hayes [facility] Start: 09-12-2022 End: 09-12-2022 ambulatory Noble Hayes Other [employer] Other Start: 09-12-2022 Nursing evaluation o f patient and report Noble Hayes [facility] Start: 08-23-2022 End: 08-23-2022 ambulatory Noble Hayes Other [employer] Other Start: 08-23-2022 Telephone encounter Noble TALAVERA [facility] Start: 08-22-2022 ambulatory Checo Rojas ELIA Facility :[facility] Start: 08-17-2022 End: 08-18-[address] NOBLE HAYES [employer] Other Start: 08-17-2022 Office outpatient vi sit 15 minutes Noble Hayes [facility] Start: 08-17-2022 Telephone encounter Noble TALAVERA [facility] Start: 08-10-2022 End: 08-10-2022 ambulatory Noble Hayes Other [employer] Other Start: 08-10-2022 Office outpatient vi sit 15 minutes Noble Hayes [facility] Start: 07-11-2022 End: 07-11-2022 ambulatory Gayle Wade Other [employer] Other Start: 07-11-2022 Nursing evaluation o f patient and report Gayle Sheri [facility] Start: 01-26-2022 End: 01-27-[address] NOBLE HAYES Facility: Start: 01-24-2022 Adult health examination Solomon Hayes Other [employer] Other Start: 10-19-2021 End: 10-19-2021 ambulatory Genny Winters PA-C Work Phone: Hematology/Oncology Comment on above: Encounter for screen ing mammogram for malignant neoplasm of breast (Primary Dx) Start: 10-19-2021 End: 10-19-2021 Patient encounter procedure Genny Winters PA-C Work Phone: [facility] Start: 09-22-2021 Telephone encounter Stephen jimenes MD Work Phone: Hematology/Oncology Comment on above: Orders Start: 05-20-2019 Preoperative cardiovascular examination Noble Hayes Other [employer] Other Start: 09-03-2018 End: 09-04-2018 Patient encounter procedure PROVIDER UNKNOWN Facility:[facility] Start: 08-08-2018 End: 08-09-2018 Patient encounter procedure DEFAULT PHYSICIAN Facility:[facility] Procedures Date Procedure Procedure Detail Performing Clinician Start: 11-30-2023 Duplex scan of lower limb veins DO Nika [facility] Work Phone: Start: 11-30-2023 CT angiography of thorax DO Nika Rec[facility] Phone: Start: 11-30-2023 Plain chest X-ray DO Alberto saldivar [facility] Phone: Start: 05-28-2023 Debridement DO Olivia Hayes Work Phone: Start: 10-05-2018 Screening mammography B enaida Hayes Other Start: 01-05-2016 Pre-surgery evaluation Noble Hayes Other Start: 01-05-2016 Preoperative cardiov ascular examination Noble Hayes Other Depression screening Olivia Hayes Other Plan of Treatment Date Care Activity Detail Author Start: 12-01-2023 End: 12-01-2023 [facility] Start: 11-30-2023 Duplex scan of lower limb veins US venous duplex LE BI [facility] Start: 11-30-2023 US Lower extremity v ein - bilateral [facility] Start: 11-30-2023 End: 11-30-2023 [facility] Start: 11-30-2023 Hospital admission [facility] Start: 05-28-2023 Aerobic Culture Aerobic Culture [facility] Start: 05-28-2023 Anaerobic Culture Anaerobic Culture [facility] Start: 05-28-2023 Microscopic observat ion [Identifier] in Unspecified specimen by Gram stain [facility] Start: 05-28-2023 End: 05-28-2023 [facility] Start: 04-14-2022 DIABET[facility] SCREEN [facility] Start: 02-09-2022 Influenza vaccination INFLUENZ A (Season Ended) [facility] Start: 07-07-2021 COVID-19 VACCINE (4 - Booster for Pfizer series) COVID-19 VACCINE (4 - Booster for Pfizer series) [facility] Start: 06-11-2021 ADVANCE DIRECTIVE DISCUSSION ADVANCE DIRECTIVE DISCUSSION [facility] Start: 2003 BONE DENSITY BONE DENSITY [facility] Start: 2003 PNEUMOVAX AGE 65 AND OVER WITH 5YR LOOKBACK (#1) PNEUMOVAX AGE 65 AND OVER WITH 5YR LOOKBACK (#1) [facility] Start: 1988 SHINGRIX VACCINE (1 of 2) SHINGRIX VACCINE (1 of 2) [facility] Start: 1957 SHINGRIX VACCINE (1 of 2) SHINGRIX VACCINE (1 of 2) [facility] Start: 1957 Urine microalbumin profile DTAP,TDAP,TD (1 - Tdap) [facility] Start: 1944 PNEUMOCOCCAL: 65+ (1 - PCV) PNEUMOCOCCAL: 65+ (1 - PCV) [facility] Bacteria identified in Unspecified specimen by Aerobe culture [facility] Bacteria identified in Unspecified specimen by Anaerobe culture [facility] Comprehensive metabo lic 2000 panel - Serum or Plasma [facility] Patient Education [facility] Work Phone: Patient referral [facility] Work Phone: End: 11-18-2022 Screening mammography bi 2-view breast inc cad KAREN SCREENING Radiology Routine Encounter for screening mammogram for malignant neoplasm of breast 1 Occurrences starting 10/19/2021 until 11/18/2022 [facility] Work Phone: Comment on above: 1 Occurrences starti ng 10/19/2021 until 11/18/2022 [facility] Immunizations Immunization Date Immunization Notes Care Provider Sukhwinder plata 02-19-2024 influenza, high dose seasonal, preservative-free DO Nika Fagan Work Phone: [facility] 03-26-2023 influenza virus vaccine, unspecified formulation DO Noble Hayes Work Phone: [facility] 03-26-2023 influenza, high dose seasonal, preservative-free Noble Hayes Other [facility] [employer] Other 03-06-2022 influenza virus vaccine, split virus (incl. purified surface antigen) Noble Hayes Other [employer] Other 03-06-2022 influenza virus vaccine, unspecified formulation DO Noble Hayes Work Phone: [facility] 03-07-2021 COVID-19 vaccine, ag e 12+ yr (PFIZER-BIONTECH - PURPLE TOP) Genny Winters PA-C Work Phone: [facility] 03-01-2021 influenza virus vaccine, split virus (incl. purified surface antigen) Noble Hayes Other [employer] Other 03-01-2021 influenza virus vaccine, unspecified formulation DO Noble Hayes Work Phone: [facility] 09-07-2020 COVID-19 vaccine, ag e 12+ yr (PFIZER-BIONTECH - PURPLE TOP) Genny Vianey PA-C Work Phone: [facility] 08-16-2020 COVID-19 vaccine, ag e 12+ yr (PFIZER-BIONTECH - PURPLE TOP) Genny Seguraer PA-C Work Phone: [facility] 03-01-2020 influenza virus vaccine, split virus (incl. purified surface antigen) Noble Hayes Other [employer] [facility] [employer] Other 03-01-2020 influenza virus vaccine, unspecified formulation DO Noble Hayes Work Phone: [facility] 03-18-2019 influenza virus vaccine, split virus (incl. purified surface antigen) Noble Hayes Other [employer] Other 03-18-2019 influenza virus vaccine, unspecified formulation DO Noble Hayes Work Phone: [facility] 03-11-2018 influenza virus vaccine, split virus (incl. purified surface antigen) Noble Hayes Other [facility] [employer] Other 03-11-2018 influenza virus vaccine, unspecified formulation DO Noble Hayes Work Phone: [facility] 03-11-2018 Seasonal trivalent influenza vaccine, adjuvanted, preservative free Genny Vianey PA-C Work Phone: [facility] 03-27-2017 influenza virus vaccine, split virus (incl. purified surface antigen) Noble Hayes Other [facility] [employer] Other 03-27-2017 influenza virus vaccine, unspecified formulation DO Noble Hayes Work Phone: [facility] 03-27-2017 influenza, high dose seasonal, preservative-free Genny Vianey PA-C Work Phone: [facility] 03-21-2016 influenza virus vaccine, split virus (incl. purified surface antigen) Noble Hayes Other [facility] [employer] Other 03-21-2016 influenza virus vaccine, unspecified formulation DO Noble Hayes Work Phone: [facility] 03-21-2016 influenza, high dose seasonal, preservative-free Genny Vianey PA-C Work Phone: [facility] 03-24-2015 influenza virus vaccine, split virus (incl. purified surface antigen) Noble Hayes Other [facility] [employer] Other 03-24-2015 influenza virus vaccine, unspecified formulation DO Noble Hayes Work Phone: [facility] 03-24-2015 pneumococcal conjuga te vaccine, 13 valent Noble Hayes Other [facility] 03-24-2015 pneumococcal Conjuga te, unspecified formulation; Translations: [Need for prophylactic vaccination against Streptococcus pneumoniae (pneumococcus)] Noble Hayes Other [employer] Other 04-22-2013 tetanus and diphther ia toxoids, adsorbed, preservative free, for adult use (5 Lf of tetanus toxoid and 2 Lf of diphtheria toxoid) Noble Hayes Other [facility] 04-28-2009 pneumococcal polysaccharide vaccine, 23 valent Noble Hayes Other [facility] Payers Date Payer Category Payer Self-pay [id number] 2014 Private Health Insurance [facility] AARP SUPPLEMENT [id number] 2014-Present [phone] [address] [place] [address] Indemnity [id number] 1996 Medicare MEDICARE MEDICAR E A AND B [id number] 1996-Present [phone] [address] [address] [place] [address] Medicare [id number] 1959 Medicare [id number] 1959 Unknown [id number] 1938 Unknown [id number] [id number] .647 1938 Unknown [id number] 2.16.840.1.601651.3.579.2 .647 1938 Unknown [id number] 2.16.840.1.928884.3.579.2 .727 1938 Unknown [id number] 2.16.840.1.708284.3.579.2 .593 1938 Unknown [id number] 2.16.840.1.616219.3.579.2 .593 1938 Unknown [id number] 2.16.840.1.341049.3.579.2 .593 1938 Unknown [id number] 2.16.840.1.867628.3.579.2 .593 1938 Unknown [id number] 2.16.840.1.453826.3.579.2 .593 1938 Unknown [id number] 2.16.840.1.128746.3.579.2 .593 1938 Unknown [id number] 2.16.840.1.839491.3.579.2 .593 1938 Unknown [id number] 2.16.840.1.258571.3.579.2 .593 1938 Unknown [id number] 2.16.840.1.276902.3.579.2 .593 1938 Unknown [id number] 2.16.840.1.889065.3.579.2 .593 1938 Unknown [id number] 2.16.840.1.792680.3.579.2 .593 1938 Unknown [id number] 2.16.840.1.755595.3.579.2 .593 1938 Unknown [id number] 2.16.840.1.198946.3.579.2 .593 Unknown Unknown [id number] 2.16.840.1.022984.3.579.2 .531 Unknown [id number] 2.16.840.1.321983.3.579.2 .531 Unknown [id number] 2.16.840.1.262134.3.579.2 .531 Unknown [id number] 2.16.840.1.209063.3.579.2 .531 Social History Date Type Detail Facility Start: 11-12-2014 End: 11-30-2023 Tobacco smoking status NHIS Ex-smoker [facility] History of tobacco use Cigarette Smoker C [facility] Start: 11-12-2014 Cigarettes smoked current (pack per day) - Reported 1 [facility] Start: 11-12-2014 Tobacco use and exposure Smokeless tobacco non-user [facility] Start: 10-19-2020 End: 10-19-2021 Alcohol intake Current non-drinker of alcohol (finding) [facility] Start: 1940 Sex Assigned At Not on file C [facility] Start: 10-09-2021 End: 10-19-2021 Exposure to SARS-CoV-2 (event) Not sure [facility] End: 11-10-2007 Sex Assigned At [facility] [employer] Other Start: 1940 Sex Assigned At Female F [facility] Start: 04-21-2024 End: 11-19-2024 Sex Female (finding) [facility] Goals Date Patient Goal Desired Activity /State Functional Status Date Assessment Result Facility 12-01-2023 Functional status Patient at Baseline [facility] Work Phone: 11-30-2023 Functional status Patient at Baseline [facility] Work Phone: Mental Status Date Assessment Result Facility 12-01-2023 Cognitive function Cognitive Sta tus Patient at Baseline [facility] Work Phone: 11-30-2023 Cognitive function Cognitive Sta tus Patient at Baseline [facility] Work Phone: Clinical Notes 09-22-2021 to 12-29-2024 Note Date & Type Note Facility 12-29-2024 Note [place] Cardiology - [facility] Subjective Nora Gibbs is a 84 y.o. year old female patient being seen for follow up heart cath performed on 11/21/2024. Says her SOB isn't much better. She had to stop going to cardiac rehab due to hip pain/swelling. Chest pain is much better. Says her BP is so high when she wakes up in the mornings before medications. She also checks awhile after taking them and says BP sometimes goes down. Has some LE edema that she says just started recently for her. 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 She is an 84-year-old woman with history of COPD and coronary [...] was admitted to the emergency room at [facility] with chest pain, And shortness of breath. [...] 12/06/2023 and showed no evidence of ischemia. At visit of 12/31/2023 I added furosemide 20 mg daily due to shortness of breath and increased BNP level to intensify treatment for diastolic heart failure. Following that she has worsening of renal function and I held spironolactone and Lasix. I changed Lasix to as needed. She was evaluated in our office on 03/19/2024 by AUTOMATIC OPERATOR Stefanie Hutchins and Imdur was increased to 90 mg daily due to elevated blood pressure and to help with symptoms of shortness of breath in case they were related to coronary ischemia. I saw her in the office on 07/21/2024. Due to continuous symptom of shortness of breath on exertion I referred her to Dr. Fontana from pulmonary. She was reviewed at the pulmonary clinic and Dr. Waldrop did not believe that the lung abnormality on PFTs is enough to explain the symptoms of shortness of breath. He referred her back to me now for consideration of further investigation of a cardiac etiology. I last saw her on 09/26/2024 and due to continued symptoms I proceeded with cardiac catheterization on 11/21/2024 that showed severe stenosis in the circumflex that was treated with a drug-eluting stent. There was nonobstructive disease in the LAD and left main and RCA. Following the procedure she is maintained on dual antiplatelet therapy with aspirin and Plavix. She reports no more chest pain but her shortness of breath is still present. She proceeded with cardiac rehab and underwent 4 sessions but had to stop due to hip discomfort and lower extremity edema. Her blood pressure has been elevated in the mornings with readings up to 170 according to her blood pressure monitoring at home. Review of Systems Constitutional: Positive for malaise/fatigue. Cardiovascular: Positive for dyspnea on exertion and leg swelling. Muscul (more content not included)... [facility] 11-22-2024 Note c [facility] 11-22-2024 Note Hospital Medicine Discharge Summary Final Discharge Diagnosis: Coronary artery disease s/p drug-eluting stent to mid circumflex, previous PCI to RCA COPD, not in exacerbation History of breast cancer Hypothyroidism Chronic heart failure with preserved ejection fraction, NYHA class I Admission Diagnosis: Coronary artery disease involving [place] coronary artery of [place] heart with other form of angina pectoris [I25.118] Chronic diastolic congestive heart failure (CMS/HCC) [I50.32] Shortness of breath [R06.02] CAD in [place] artery [I25.10] Hospital course: Nora Gibbs is an 84 y.o. female w a PMH CAD s/p stent, HTN, and HFpEF who came from home for elective cath today. Patient was reporting an intermittent, pressure like chest pain to cardiology team. Given history of previous stent to the RCA, patient was scheduled for cardiac cath which demonstrated 80% stenosis to the mid circumflex and drug-eluting stent was placed. Admission was requested by cardiology team due to increased bleeding post cath and concern for monitoring for hematoma development. Patient denies pain reports feeling well. No chest pain or shortness of breath. Patient was evaluated the next day. No concern for bleeding or hematoma formation at the cath site. Education suggested. Patient discharged home in stable condition, advised close follow-up with cardiology after discharge. Surgical, Invasive or Diagnostic Procedures Done During Admission: Cardiac Cath Consultations During Admission: Cardiology Dear DO Marty Nora is advised to follow up with you within 1-2 weeks. Items to follow up in ambulatory setting: None Follow-up with: Cardiology Scheduled appointments: Future Appointments Date Time Provider Department Center 12/29/2024 1:00 PM Bala Zepeda MD [facility] Your medication list START taking these medications Instructions Last Dose Given Next Dose Due clopidogrel 75 mg tablet Commonly known as: Plavix Start taking on: November 23, 2024 Take 1 tablet (75 mg) by mouth in the morning for 98 doses. CHANGE how you take these medications Instructions Last Dose Given Next Dose Due doxazosin 4 mg tablet Commonly known as: Cardura What changed: how much to take Take 2 tablets (8 mg) by mouth at bedtime. isosorbide mononitrate ER 30 mg 24 hr tablet Commonly known as: Imdur What changed: Another medication with the same name was removed. Continue taking this medication, and follow the directions you see here. TAKE 1 TABLET (30 MG) BY MOUTH IN THE MORNING. TAKE 60MG +30MG TO EQUAL 90MG. DO NOT CRUSH OR CHEW. CONTINUE taking these medications Instructions Last Dose Given Next Dose Due albuterol 90 mcg/actuation inhaler aspirin 81 mg EC tablet atorvastatin 40 mg tablet Commonly known as: Lipitor Take 1 tablet (40 mg) by mouth in the morning. cyanocobalamin 1,000 mcg/mL oral liquid Commonly known as: Vitamin B-12 yrqyfcsfaam-amoqnkyoq-owfydxhg 200-62.5-25 mcg blister with device Commonly known as: Trelegy Ellipta levothyroxine 88 mcg tablet Commonly known as: Synthroid, Levoxyl lisinopril 20 mg tablet Take 1 tablet (20 mg) by mouth in the morning and at bedtime. metoprolol succinate XL 25 mg 24 hr tablet Commonly known as: Toprol-XL TAKE 1/2 TABLET BY MOUTH DAILY DIRECTED temazepam 30 mg capsule Commonly known as: Restoril STOP taking these medications amLODIPine 10 mg tablet Commonly known as: Norvasc furosemide 20 mg tablet Commonly known as: Lasix torsemide 20 mg tablet Commonly known as: Demadex Where to Get Your Medications These medications were sent to [facility] - [address] [place] [address] [address] [facility] [place] [address], [facility] [address] clopidogrel 75 mg tablet doxazosin 4 mg tablet Nora is allergic to penicillins and sulfa (sulfonamide antibiotics). Disposition: Home or Self Care () Discharge Condition: Good Code Status: Full Code Diagnostic Results Hematology: Results from last 7 days Lab Units 11/22/24 0407 11/21/24 2105 WBC AUTO 10*3/uL 7.46 11.10* HEMOGLOBIN g/dL 10.5* 11.3* HEMATOCRIT % 31.8* 35.3* MCV fL 90.9 92.7 PLATELETS AUTO 10*3/uL 163 186 Chemistry: Results from last 7 days Lab Units 11/22/24 0407 11/21/24 2104 SODIUM mmol/L 141 139 POTASSIUM mmol/L 4.0 4.2 CHLORIDE mmol/L 109* 108* CO2 mmol/L 26 23 BUN mg/dL 23 22 CREATININE mg/dL 0.98 0.91 GLUCOSE mg/dL 115* 113* CALCIUM mg/dL 8.5* 8.9 No lab exists for component: AFIO2 , APHT , APCOT , APOT , ATCO2 , CK , ALB , IBILI Test Results Pending At Discharge: Pending Labs Order Current Status Apolipoprotein B-100 In process Diet at the time of discharge: regular diet and cardiac diet Nutrition Screen Activity: Patient currently has no discharge activity orders Objective Blood pressure 135/50, pulse 55, temperature 36.3 ???C (more content not included)... [facility] 11-22-2024 Note [facility] CARDIOLOGY INPAT IENT PROGRESS NOTE Reason for follow up: CAD s/p stent and post procedure hematoma, HTN HPI: Nora Gibbs is a 84 y.o. female with history of COPD and CAD s/p PIYUSH of the RCA in 2019 with moderate disease in the LCX and apical LAD that was managed medically. On 11/21/24 had LHC for dyspnea that was suspected to be angina equivalent, found significant stenoses of mid LCX treated with PIYUSH. Found patent RCA stent and moderate disease of LAD and RCA non hymodynamically significant per FFR. Also noted uncontrolled systemic hypertension and possibly significant right TAMELA stenosis. Started Plavix for 1 year and ongoing ASA for life. 09/26/[address] Zepeda as outpatient: being seen per Dr. Waldrop for SOB. she is no longer taking Trelegy due to making her blood pressure high and causing her SOB. She does have shortness of breath which could be an anginal equivalent. I had sent her to pulmonary but they did not believe that the shortness of breath is from a lung etiology. Her prior stress test in November 2023 did not show ischemia. It is still possible that she progressed her coronary artery disease. She is currently on multiple antianginal medications. Diastolic heart failure, chronic: This is evidenced by the symptoms, and prior increased BNP level. She did not do well with spironolactone and furosemide due to RHONDA. I reviewed the recent labs and the renal function has returned to baseline after stopping spironolactone and furosemide. She is taking furosemide on an as neededbasis and I will continue the same. Hypertension: Elevated blood pressure. I will increase doxazosin at night to 4 mg daily (she has the 2 mg pills). I asked her to continue to monitor. Plan to check an echocardiogram and proceed with cardiac catheterization [right heart catheterization and coronary angiography. 11/21/24 admitted for elective left and right HC. Found significant stenoses of mid LCX treated with PIYUSH. Found patent RCA stent and moderate disease of LAD and RCA non hymodynamically significant per FFR. Also noted uncontrolled systemic hypertension and possibly significant right TAMELA stenosis. Started Plavix for 1 year and ongoing ASA for life. A 5 [place] minx film writer device was used to manage the right common femoral arteriotomy however this failed. Therefore hemostasis was achieved by manual compression for both the femoral artery and vein. She tolerated the procedure well and was transferred back to the cardiovascular recovery area. Subjective Today patient is resting in bed with family present. Says right groin femoral site is minimally tender, has been out of bed to the bathroom with no chest pain, index dyspnea, lightheadedness, palpitations, abdominal discomfort, GI issues or lower extremity edema. She has blood pressure machine at home and professes low-sodium diet. Discussed findings on coronary angiogram and stent with findings of uncontrolled hypertension and importance of risk factor reduction. To her current regimen will increase home doxazosin to 8 mg nightly. Reviewed absolute importance of none interrupted dual anti-platelet therapy with aspirin and Plavix for at least 6 months and aspirin for life. Questions were answered. Reviewed usual care of femoral site after angiogram with written instructions printing with AVS. Questions were answered Tele: Sinus rhythm ALLERGIES Allergies[1] Allergies Reviewed by Lesly Blankenship RN on 11/21/2024 Severity Reactions Comments Penicillins High Anaphylaxis, Hives, Other, Unknown Sulfa (sulfonamide Antibiotics) Low Hives, Other, Rash, Unknown CURRENT MEDS aspirin, 81 mg, oral, q AM atorvastatin, 40 mg, oral, Daily clopidogrel, 75 mg, oral, Daily doxazosin, 4 mg, oral, Nightly heparin (porcine), 5,000 Units, subcutaneous, q8h JADEN isosorbide mononitrate ER, 30 mg, oral, Daily levothyroxine, 88 mcg, oral, Daily lisinopril, 20 mg, oral, Daily metoprolol succinate XL, 12.5 mg, oral, Daily mometasone-formoterol, 2 puff, inhalation, BID And umeclidinium, 1 puff, inhalation, Daily temazepam, 30 mg, oral, Nightly PRN medications: acetaminophen, albuterol, melatonin, ondansetron ODT OR ondansetron Objective Patient Vitals for the past 24 hrs: BP Temp Temp src Pulse Resp SpO2 Height Weight 11/22/24 0800 135/50 36.3 ???C (97.3 ???F) Temporal 55 21 92 % -- -- 11/22/24 0600 (!) 122/46 -- -- 53 19 98 % -- -- 11/22/24 0341 -- -- -- -- -- -- -- 82.2 kg (181 lb 3.2 oz) 11/22/24 0300 121/51 -- -- 55 23 90 % -- -- 11/22/24 0200 (!) 127/46 -- -- 56 24 91 % -- -- 11/22/24 0100 (!) 150/49 -- -- 58 25 -- -- -- 11/22/24 0000 144/71 -- -- 66 16 -- -- -- 11/21/24 2300 (!) 149/44 -- -- 59 17 -- -- -- 11/21/24 2200 (!) 144/47 -- -- 56 15 -- -- -- 11/21/24 2132 140/62 -- -- 56 16 92 % -- -- 11/21/24 2100 (!) 148/44 -- -- 56 16 94 % -- -- 11/21/24 2032 -- -- -- -- -- -- 1.549 m (5' 1 ) -- 11/21/24 2030 144/63 -- -- 57 22 9 (more content not included)... [facility] 11-22-2024 Note Case was discussed w ith the FER on 11/21/2024. I agree with the history, physical, assessment, and plan of care. I discussed the findings and therapeutic plan. I agree with the documentation, except for any updates below. Bianca Pierre MD [facility] 11-22-2024 Note Not in exacerbation [facility] 11-22-2024 Note - Not in exacerbatio n, continue home inhalers [facility] 11-22-2024 Note Continue Synthroid [facility] 11-22-2024 Note - Severe 80% stenosi s in the mid circumflex reduced to 0% by a Synergy XD drug-eluting stent -Previous stent to the RCA - DAPT for 12 months, then aspirin 81 mg daily for life. Statin therapy for life. -Follow-up A1c and lipids [facility] 11-22-2024 Note Hospital Medicine History and Physical 11/22/2024 1:13 AM THE HOSPITALIST TEAM PREFERS TO USE [email or web address] FOR NON-URGENT COMMUNICATION 7AM-7PM. IF I DO NOT RESPOND WITHIN 20 MINUTES OR URGENT MATTERS, PLEASE CALL THROUGH THE CLIENT SERVICES VICE PRESIDENT. FROM 7PM-7AM, PLEASE PAGE [phone](COVR). Chief Complaint No chief complaint on file. History of Present Illness Nora Gibbs is an 84 y.o. female w a PMH CAD s/p stent, HTN, and HFpEF who came from home for elective cath today. Patient was reporting an intermittent, pressure like chest pain to cardiology team. Given history of previous stent to the RCA, patient was scheduled for cardiac cath which demonstrated 80% stenosis to the mid circumflex and drug-eluting stent was placed. Admission was requested by cardiology team due to increased bleeding post cath and concern for monitoring for hematoma development. Patient denies pain reports feeling well. No chest pain or shortness of breath. Review of System and Physical Exam Temp: [36.5 ???C (97.7 ???F)] 36.5 ???C (97.7 ???F) Heart Rate: [52-66] 58 Resp: [10-25] 25 BP: (104-178)/(44-89) 150/49 Physical Exam Vitals and nursing note reviewed. Constitutional: General: She is not in acute distress. Appearance: Normal appearance. She is obese. She is not ill-appearing. HENT: Head: Normocephalic. Mouth/Throat: Mouth: Mucous membranes are moist. Eyes: Conjunctiva/sclera: Conjunctivae normal. Cardiovascular: Rate and Rhythm: Normal rate and regular rhythm. Pulses: Normal pulses. Heart sounds: Normal heart sounds. No murmur heard. No friction rub. No gallop. Pulmonary: Effort: Pulmonary effort is normal. No respiratory distress. Breath sounds: Normal breath sounds. No wheezing, rhonchi or rales. Abdominal: General: Abdomen is flat. Bowel sounds are normal. There is no distension. Palpations: Abdomen is soft. There is no mass. Tenderness: There is no abdominal tenderness. There is no guarding. Musculoskeletal: General: No swelling, tenderness or deformity. Normal range of motion. Right lower leg: No edema. Left lower leg: No edema. Skin: General: Skin is warm. Capillary Refill: Capillary refill takes less than 2 seconds. Coloration: Skin is not jaundiced. Findings: No erythema, lesion or rash. Neurological: General: No focal deficit present. Mental Status: She is alert and oriented to person, place, and time. Mental status is at baseline. Cranial Nerves: No cranial nerve deficit. Sensory: No sensory deficit. Motor: No weakness. Psychiatric: Mood and Affect: Mood normal. Behavior: Behavior normal. Thought Content: Thought content normal. Judgment: Judgment normal. Review of Systems Constitutional: Negative for chills, diaphoresis, fatigue and fever. HENT: Negative for trouble swallowing. Eyes: Negative for visual disturbance. Respiratory: Negative for cough and shortness of breath. Cardiovascular: Negative for chest pain and leg swelling. Gastrointestinal: Negative for abdominal distention, abdominal pain, blood in stool, constipation, diarrhea, nausea and vomiting. Musculoskeletal: Negative for arthralgias and joint swelling. Skin: Negative for rash. Neurological: Negative for dizziness, tremors, syncope and numbness. All other systems reviewed and are negative. Assessment and Plan Assessment & Plan CAD in [place] artery - Severe 80% stenosis in the mid circumflex reduced to 0% by a Synergy XD drug-eluting stent -Previous stent to the RCA - DAPT for 12 months, then aspirin 81 mg daily for life. Statin therapy for life. -Follow-up A1c and lipids Chronic obstructive lung disease ([facility]) - Not in exacerbation, continue home inhalers History of breast cancer Hypothyroidism Continue Synthroid Chronic diastolic congestive heart failure ([facility]/HCC) Not in exacerbation VTE Prophylaxis: Subcutaneous heparin ----- Focus of this inpatient stay will remain on problems that need acute care setting for care. We will review available studies and will order additional labs, imaging and other studies as appropriate. As needed medicines are ordered as appropriate. VTE Prophylaxis will be ordered as appropriate. Please see above for management plan for individual hospital problems. Home medications are reviewed and will be continued as appropriate. Patient will be continued to be followed during this hospital stay by a member of [facility] Medicine. Past Medical History Medical History[1] Past Surgical History Surgical History[2] Social History Social History Socioeconomic History Marital status: Spouse name: Not on file Number of children: Not on file Years of education: Not on file Highest education level: Not on file Occupational History Not on file Tobacco Use Smoking status: Former Current packs/day: 0.00 Types: Cigarettes Quit date: 2007 Years since quittin.4 Smokeless tobacco: Neve (more content not included)... [facility] 11-21-2024 Note Patient: Nora mcintosh Procedure Information Date/Time: 11/21/24 1330 Procedures: Coronary angiography - NPCR Right heart cath Location: [facility] FINANCIAL REPORTING DIRECTOR 3 / [facility] HV VASCULAR LAB (Cath) Providers: Bala Zepeda MD Clinical information reviewed: Allergies Meds Physical Exam Airway Mallampati: III TM distance: >3 FB Cardiovascular Dental Pulmonary Neurological Abdominal Anesthesia Plan ASA 3 other (Moderate sedation ) Additional Equipment Requests [facility] 10-06-2024 Evaluation note Diagnosis Onset Date Resolution ASHD (arteriosclerotic heart disease) acute October 06, 2024 1:19pm Chronic bronchitis acute October 06, 2024 1:19pm Hypertension acute October 06, 2024 1:19pm Hypertensive chronic kidney disease acute October 06, 2024 1:19pm Chronic obstructive pulmonary disease with (acute) lower respiratory infection noneactive September 1:19pm Acute exacerbation of chronic obstructive airways disease noneactive October 06, 2024 1:19pm (HFpEF) heart failure with preserved ejection fraction acute November 19, 2024 1:43pm ASHD (arteriosclerotic heart disease) acute November 19, 2024 1:43pm Chronic bronchitis acute November 092024 1:43pm Hypertension acute November 19, 2 025 1:43pm Hypothyroidism acute November 19, 2024 1:43pm Nicotine dependence, cigarettes, in remission acute November 192024 1:43pm Obesity acute November 19 1:43pm (HFpEF) heart failure with preserved ejection fraction acute November 26, 2024 11:12am ASHD (arteriosclerotic heart disease) acute November 26, 2024 11:12am Chronic bronchitis acute November 092024 11:12am Hypertension acute November 26, 2 025 11:12am Nicotine dependence, cigarettes, in remission acute November 262024 11:12am Obesity acute November 26 11:12am [facility] Work Phone: 1(575) 361-367104-18-2025 NoteUT Cardiology - [facility] Subjective Nora Gibbs is a 84 y.o. year old female patient being seen per Dr. Waldrop for SOB. Patient states every once in awhile she get pain, patient states she has a constant heaviness under her left breast feels like something is laying on her. Patient states she had dyspnea with exertion occasional palpitations and lots of fatigue. Patient states the chest heaviness has been on going since she seen Dr. Waldrop. Patient denies leg swelling, palpitations, or abnormal bruising/bleeding. Patient states she is no longer taking Trelegy due to making her blood pressure high and causing her SOB. Patient Active Problem List Diagnosis Arthritis [...] borderline, class III (CMS/HCC) Lower extremity edema Former tobacco use Restrictive lung disease Family History Problem Relation Name Age of Onset No Known Problems Mother No Known Problems Father Hypertension Brother Social History Tobacco Use Smoking status: Former Current packs/day: 0.00 Types: Cigarettes Quit date: 2007 Years since quittin.3 Smokeless tobacco: Never Substance Use Topics Alcohol use: Never Drug use: Never HPI Nora is seen in follow-up. She is an 84-year-old woman with history of COPD and coronary [...] was admitted to the emergency room at [facility] with chest pain, And shortness of breath. [...] 12/06/2023 and showed no evidence of ischemia. At visit of 12/31/2023 I added furosemide 20 mg daily due to shortness of breath and increased BNP level to intensify treatment for diastolic heart failure. Following that she has worsening of renal function and I held spironolactone and Lasix. I changed Lasix to as needed. She was evaluated in our office on 03/19/2024 by NILTON Hutchins and Imdur was increased to 90 mg daily due to elevated blood pressure and to help with symptoms of shortness of breath in case they were related to coronary ischemia. I saw her in the office on 07/21/2024. Due to continuous symptom of shortness of breath on exertion I referred her to Dr. Fontana from pulmonary. She was reviewed at the pulmonary clinic and Dr. Waldrop did not believe that the lung abnormality on PFTs is enough to explain the symptoms of shortness of breath. He referred her back to me now for consideration of further investigation of a cardiac etiology. Today she reports that she continues to have significant symptoms of shortness of breath on exertion NYHA class III, limiting her ability to do her daily activities. The symptom requires her to rest in order to be able to resume activities afterwards. Her blood pressure is mildly elevated but better than before. She denies chest pain but she has heaviness. Review of Systems Constitutional: Positive for malaise/fatigue. Cardiovascular: Positive for chest pain (heaviness), dyspnea on exertion and palpitations (occasional). Negative for leg swelling. Musculoskeletal: Positive for arthritis, back pain, joint pain and myalgias. All other systems reviewed and are negative. Objective Visit Vitals BP 154/60 (BP Location: Left arm, Patient Position: Sitting) Pulse 60 Ht 1.549 m (5' 1 ) (more content not included)...[facility]03-14-2025 Evaluation note* Diagnosis Onset Date Resolution Status Admit Date (HFpEF) heart failure with preserved ejection fraction acute Celestino h 2024 11:22am ASHD (arteriosclerotic heart disease) acute August 22, 2024 11:22am Chronic bronchitis acute August 22, 2024 11:22am Hypertension acute August 22, 2024 11:22am Hypothyroidism acute August 11:22am Nicotine dependence, cigaret shawn, in remission acute August 22, 2024 11:22am Obesity acute August 22 11:22am Stage 3a chronic kidney disease acut e August 22, 2024 11:22am [facility] Work Phone: 1(898) 495-729603-14-2025 Evaluation note* Diagnosis Onset Date Resolution Status Admit Date (HFpEF) heart failure with preserved ejection fraction acute Celestino h 2024 11:22am ASHD (arteriosclerotic heart disease) acute August 22, 2024 11:22am Chronic bronchitis acute August 22, 2024 11:22am Hypertension acute August 22, 2024 11:22am Hypothyroidism acute August 11:22am Nicotine dependence, cigarettes, in remission acute August 092024 11:22am Obesity acute August 22 11:22am Stage 3a chronic kidney disease sheyla katia August 22, 2024 11:22am ASHD (arteriosclerotic heart disease) acute October 06, 2024 1:19pm Chronic bronchitis acute October 06, 2024 1:19pm Hypertension acute October 06, 2024 1:19pm Hypertensive chronic kidney disease acute October 06, 2024 1:19pm Chronic obstructive pulmonar y disease with (acute) lower respiratory infection noneactive September 1:19pm Acute exacerbation of chroni c obstructive airways disease noneactive Apri l 2024 1:19pm (HFpEF) heart failure with preserved ejection fraction acute November 19, 2024 1:43pm ASHD (arteriosclerotic heart disease) acute November 19, 2024 1:43pm Chronic bronchitis acute November 092024 1:43pm Hypertension acute November 19, 2 025 1:43pm Hypothyroidism acute November 19, 2024 1:43pm Nicotine dependence, cigarettes, in remission acute November 192024 1:43pm Obesity acute November 19 1:43pm [facility] Work Phone: 1(269) 871-789402-10-2025 [facility] Cardiology - [facility] Subjective Nora Gibbs is a 84 y.o. year old female patient being seen for 4 mo follow up. Bp HIGH IN THE AM. Patient Active Problem List Diagnosis Arthritis Bowel [...] Social History Tobacco Use Smoking status: Former Current packs/day: 0.00 Types: Cigarettes Quit date: 2007 Years since quittin.1 Smokeless tobacco: Never Substance Use Topics Alcohol use: Never HPI Nora is seen in follow-up. She is an 84-year-old woman with history of COPD and coronary [...] was admitted to the emergency room at [facility] with chest pain, And shortness of breath. [...] 12/06/2023 and showed no evidence of ischemia. At visit of 12/31/2023 I added furosemide 20 mg daily due to shortness of breath and increased BNP level to intensify treatment for diastolic heart failure. Following that she has worsening of renal function and I held spironolactone and Lasix. I changed Lasix to as needed. She was evaluated in our office on 03/19/2024 by NILTON Hutchins and Imdur was increased to 90 mg daily due to elevated blood pressure and to help with symptoms of shortness of breath in case they were related to coronary ischemia. Today she reports that she continues to have symptoms of shortness of breath on exertion with lower extremity edema. NYHA class II symptoms. No chest pain. No palpitations. Her blood pressure is elevated in the morning and can reach 170 or higher. Review of Systems Cardiovascular: Positive for dyspnea on exertion. Negative for leg swelling and palpitations ( once in awhile ). Musculoskeletal: Positive for arthritis, back pain, joint pain and myalgias. All other systems reviewed and are negative. Objective Visit Vitals BP 134/76 (BP Location: Left arm, Patient Position: Sitting) Pulse 59 Wt 84.8 kg (187 lb) SpO2 98% BMI 35.33 kg/m??? Smoking Status Former BSA 1.91 m??? Physical Exam Constitutional: Appearance: She is [...] General: Skin is warm and dry. Neurological: Gene (more content not included)...[facility] Evaluation note* Diagnosis Onset Date Resolution Status Admit Date (HFpEF) heart failure with preserved ejection fraction acute Dece mber 2023 2:50pm ASHD (arteriosclerotic heart disease) acute May 27, 2 024 2:50pm Chronic bronchitis acute Decemb er 2023 2:50pm Hypertension acute May 2:50pm Hypothyroidism acute May 112023 2:50pm Medicare annual wellness vis it, subsequent acute May 27, 2 024 2:50pm Nicotine dependence, cigarettes, in remission acute Decembe r 2023 2:50pm Obesity acute May 27, 2024 2:50pm Screening mammogram for [address] cancer acute May 27, 2 024 2:50pm Stage 3a chronic kidney disease acut e May 27, 2024 2:50pm [facility] Work Phone: 1(551) 215-706512-17-2024 Evaluation note* Diagnosis Onset Date Resolution Status Admit Date (HFpEF) heart failure with preserved ejection fraction acute Dece mber 2023 2:50pm ASHD (arteriosclerotic heart disease) acute May 27, 2 024 2:50pm Chronic bronchitis acute Decemb er 2023 2:50pm Hypertension acute May 2:50pm Hypothyroidism acute May 112023 2:50pm Medicare annual wellness vis it, subsequent acute May 27, 2 024 2:50pm Nicotine dependence, cigarettes, in remission acute Decembe r 2023 2:50pm Obesity acute May 27, 2024 2:50pm Screening mammogram for l[address] cancer acute May 27, 2 024 2:50pm Stage 3a chronic kidney disease acut e May 27, 2024 2:50pm (HFpEF) heart failure with preserved ejection fraction acute Celestino h 2024 11:22am ASHD (arteriosclerotic heart disease) acute August 22, 2024 11:22am Chronic bronchitis acute August 22, 2024 11:22am Hypertension acute August 22, 2024 11:22am Hypothyroidism acute August 11:22am Nicotine dependence, cigarettes, in remission acute August 092024 11:22am Obesity acute August 22 11:22am Stage 3a chronic kidney disease acut e August 22, 2024 11:22am [facility] Work Phone: 1(396) 150-841310-09-2024 NoteCardiovascular Medicine [facility] SUBJECTIVE Chief Complaint Patient presents with Coronary Artery Disease Congestive Heart Failure Hypertension Nora Gibbs is a 84 y.o. female here for routine follow-up. HPI PMHx: CAD s/p PCI to RCA in 2018, HTN, HLD, COPD, HFpEF Patient here for [...] borderline, class III (CMS/HCC) Lower extremity edema Past Medical History: Diagnosis Date Cancer (CMS/HCC) [...] at bedtime., Disp: 90 tablet, Rfl: 3 aqnwehqdfze-dybcqsucx-uetnfpux 200-62.5-25 mcg blister with device, INHALE 1 [...] Movements: Extraocular movements intac (more content not included)...[facility]10[facility]24 NotePatient here for 3 mo follow up CAD, [...] myalgias. All other systems reviewed and are negative.[facility] 02-19-2024 Evaluation note* Diagnosis Onset Date Resolution Status Admit Date (HFpEF) heart failure with preserved ejection fraction acute Feb 10:17am ASHD (arteriosclerotic heart disease) acute February 19, 2024 10:17am Chronic bronchitis acute brandi 2023 10:17am Hypothyroidism acute February 19, 2024 10:17am Nicotine dependence, cigarettes, in remission acute er 2023 10:17am Obesity acute February 10:17am Stage 3a chronic kidney disease acut e February 19, 2024 10:17am [facility] Work Phone: 1(450) 443-244109-10-2024 Evaluation note* Diagnosis Onset Date Resolution Status Chest pain resolved ASHD (arteriosclerotic heart disease) acute Stage 3a chronic kidney disease acute Chest pain resolved (HFpEF) heart failure with preserved ejection fraction acute ASHD (arteriosclerotic heart disease) acute Stage 3a chronic kidney disease acute [facility] Work Phone: 1(853) 127-415009-06-2024 Evaluation note* Diagnosis Onset Date Resolution Status ASHD (arteriosclerotic heart disease) acute Chronic bronchitis acute History of breast cancer acu te Hypothyroidism acute Pernicious anemia acute Stage 3a chronic kidney disease acute Chest pain resolved Acute on chronic heart failu re with preserved ejection fraction (HFpEF) acute ASHD (arteriosclerotic heart disease) acute Stage 3a chronic kidney disease acute Chest pain resolved [facility] Work Phone: 1(206) 427-285608-05-2024 Evaluation note* Diagnosis Onset Date Resolution Status ASHD (arteriosclerotic heart disease) acute Chronic bronchitis acute History of breast cancer acu te Hypothyroidism acute Pernicious anemia acute Stage 3a chronic kidney disease acute Chest pain resolved Acute on chronic heart failu re with preserved ejection fraction (HFpEF) acute ASHD (arteriosclerotic heart disease) acute Stage 3a chronic kidney disease acute Chest pain resolved [facility] Work Phone: 1(691) 731-660407-01-2024 Evaluation note* Diagnosis Onset Date Resolution Status ASHD (arteriosclerotic heart disease) acute Chronic bronchitis acute History of breast cancer acu te Hypothyroidism acute Pernicious anemia acute Stage 3a chronic kidney disease acute Chest pain resolved Acute on chronic heart failu re with preserved ejection fraction (HFpEF) acute ASHD (arteriosclerotic heart disease) acute Stage 3a chronic kidney disease acute Chest pain resolved [facility] Work Phone: 1(342) 490-312206-21-2024 History and physical note Author Jim Clay [facility] November 30, 2023 5:16pm Note Date/Time November 30, 2023 3:48 pm [facility] [address] [place] [address] Hospitalist H&P Signed Patient: Nora Gibbs MR#: [id number] : 1940 Acct:[id number] Age/Sex: 83 / F Adm Date: 4 Loc: Room: [address] [place] [address] Type: ADM INOo Attending Dr: Jim Clay [...] and started torsemide. She recently saw her radiologic technologist chief who recommended an echocardiogram and a stress [...] negative unless noted below or in HPI [facility] Medical History (Updated 11/30/23 @ 13:34 by [...] % (Auto) 20.1 % (.) 11/30/23 10:25 Branch % (Auto) 9.8 % (.) 11/30/23 10:25 Eos % (Auto) 2.8 % (.) 11/30/23 10:25 Baso % (Auto) 0.6 % (.) 11/30/23 10:25 Nucleat RBC Rel Count 0.1 /100 WBC (0-0.5) 11/30/23 10:25 Neut # (Auto) 4.1 x10E3/uL (1.8-7.7) 11/30/23 10:25 Lymph # (Auto) 1.2 x10E3/uL (1.00-4.8) 11/30/23 10:25 Branch # (Auto) 0.6 x10E3/uL (0.0-0.8) 11/30/23 10:25 [...] <Electronically signed by Jim Clay DO> 11/30/23 3315 [facility] Work Phone: 1(331) 501-990502-27-2024 Progress note Author Luis Angel Saucedo [facility] August 07, 2023 9:59am Note Date/Time August 07, 2023 9:54am [facility] [address] [place] [address] Wound Center Provider Note Signed Patient: Nora Gibbs MR#: [id number] : 1940 Acct:[id number] Age/Sex: 83 / F Copies to: MD [...] hematoma. She did see her surgeon in [place] who did her previous surgery. Patient had some punch biopsies performed to rule out cancer which apparently did not show any cancer. She did develop nonhealing wound at this site. She underwent a couple debridements and closures in [place] but each time, the wound did open up and start draining. The last debridement was last month. The surgeon who did her previous surgerieshas since left and the patient did see Dr. Kurtz last week. He did remove some remaining sutures and the patient was then referred here. Patient is currently having dressing changes performed at the [facility]. She has an open right breast wound [...] did wound start?: 08/2022 Mode of Arrival/ Residential Leasing Agent: Personal vehicle Lives with:: Alone Appetite Description: Within Normal Limits Who helps w/ dressing change?: Home Health and Wound Care Dept Why Do You Need Help?: Can't Reach Ulcer Smoking Status: Former smoker Constitutional Constitutional: Denies fever(s) Integumentary/Breasts Skin/Breast: Reports wounds [facility] Medical History (Updated 08/06/23 @ 13:22 by [...] 0.1 CM Sq: 0.010 Surrounding Tissue Appearance: [place] Surrounding Tissue Temp: Warm Drainage Amount: None [...] by MD Luis Angel Saucedo> 08/07/23 0959 [facility] Work Phone: 1(930) 122-822502-06-2024 Progress note Author Luis Angel Saucedo [facility] July 17, 2023 9:52am Note Date/Time July 17, 2023 9 :52am [facility] [address] [place] [address] Wound Center Provider Note Signed Patient: Nora Gibbs MR#: [id number] : 1940 Acct:[id number] Age/Sex: 83 / F Copies to: MD [...] hematoma. She did see her surgeon in [place] who did her previous surgery. Patient had some punch biopsies performed to rule out cancer which apparently did not show any cancer. She did develop nonhealing wound at this site. She underwent a couple debridements and closures in [place] but each time, the wound did open up and start draining. The last debridement was last month. The surgeon who did her previous surgerieshas since left and the patient did see Dr. Kurtz last week. He did remove some remaining sutures and the patient was then referred here. Patient is currently having dressing changes performed at the [facility] infusion center. She has an open [...] did wound start?: 08/2022 Mode of Arrival/ Residential Leasing Agent: Personal vehicle Lives with:: Alone Appetite Description: Within Normal Limits Who helps w/ dressing change?: Infusion Center and Wound Care Dept Why Do You Need Help?: Can't Reach Ulcer Smoking Status: Former smoker Constitutional Constitutional: Denies fever(s) Gastrointestinal Gastrointestinal: Denies abdominal pain Integumentary/Breasts Skin/Breast: Reports wounds Neurologic Neurologic: Denies syncope [facility] Medical History CAD (coronary artery disease) Osteoporosis [...] Right Breast: Bed Appearance: Beefy Red, Devitalized, [place] and Yellow Percent of Wound Bed Granulated/Red: 60 Percent of Devitalized: 40 Length (cm): 1.0 Width (cm): 2 Depth (cm): 0.9 CM Sq: 2.000 Surrounding Tissue Appearance: [place] Surrounding Tissue Temp: Warm Drainage Amount: Small [...] signed by MD Luis Angel Saucedo> 07/17/23 9249 [facility] Work Phone: 1(838) 772-663602-05-2024 Evaluation note* Encounter Date Diagnosis Assessment Notes [...] abstinence. Not a candidate for yearly LDCT [facility] Other 01-24-2024 Evaluation note* Encounter Date Diagnosis Assessment Notes Treatment Notes Treatment Clinical Notes Jun, Pernicious anemia (ICD-10 - D51.0) [facility] Other 01-23-2024 Progress note Author Luis Angel Saucedo [facility] July 03, 2023 12:04pm Note Date/Time July 03, 2023 1 2:04pm [facility] [address] [place] [address] Wound Center Provider Note Signed Patient: Nora Gibbs MR#: [id number] : 1940 Acct:[id number] Age/Sex: 83 / F Copies to: MD [...] hematoma. She did see her surgeon in [place] who did her previous surgery. Patient had some punch biopsies performed to rule out cancer which apparently did not show any cancer. She did develop nonhealing wound at this site. She underwent a couple debridements and closures in [place] but each time, the wound did open up and start draining. The last debridement was last month. The surgeon who did her previous surgerieshas since left and the patient did see Dr. Kurtz last week. He did remove some remaining sutures and the patient was then referred here. Patient is currently having dressing changes performed at the [facility]. She has an open right breast wound [...] did wound start?: 08/2022 Mode of Arrival/ Residential Leasing Agent: Personal vehicle Lives with:: Alone Appetite Description: [...] Right Breast: Bed Appearance: Beefy Red, Devitalized, [place] and Yellow Percent of Wound Bed Granulated/Red: 10 Percent of Devitalized: 90 Length (cm): 0.8 Width (cm): 2 Depth (cm): 1 CM Sq: 1.600 Surrounding Tissue Appearance: [place] Surrounding Tissue Temp: Warm Drainage Amount: Small [...] by MD Luis Angel Saucedo> 07/03/23 1204 [facility] Work Phone: 1(261) 831-871201-02-2024 Progress note Author Luis Angel Saucedo [facility] June 12, 2023 9:26am Note Date/Time June 12, 2023 9: 26am [facility] [address] [place] [address] Wound Center Provider Note Signed Patient: Nora Gibbs MR#: [id number] : 1940 Acct:[id number] Age/Sex: 83 / F Copies to: MD Noble West DO~ HPI Date of Visit Date of Visit: Date of Service: 06/12/2023 Time of Service: 09:23 Narrative HPI: Patient is status post debridement of her right breast wound. Pathology showed chronic wound changes. No mention of malignancy. Cultures grew normal skin aries. There was an anaerobe identified [place]. [place] was started on negative pressure [...] hematoma. She did see her surgeon in [place] who did her previous surgery. Patient had some punch biopsies performed to rule out cancer which apparently did not show any cancer. She did develop nonhealing wound at this site. She underwent a couple debridements and closures in [place] but each time, the wound did open up and start draining. The last debridement was last month. The surgeon who did her previous surgerieshas since left and the patient did see Dr. Kurtz last week. He did remove some remaining sutures and the patient was then referred here. Patient is currently having dressing changes performed at the [facility] infusion center. She has an open [...] did wound start?: 08/2022 Mode of Arrival/ Residential Leasing Agent: Personal vehicle Lives with:: Alone Appetite Description: Within Normal Limits Who helps w/ dressing change?: Infusion Center and Wound Care Dept Why Do You Need Help?: Can't Reach Ulcer Smoking Status: Former smoker Constitutional Constitutional: Denies fever(s) Integumentary/Breasts Skin/Breast: Reports wounds [facility] Medical History Breast cancer right CAD (coronary [...] 10:29) Hives Wound/Ulcer Right Breast: Bed Appearance: [place] and Yellow Percent of Wound Bed Granulated/Red: 10 Percent of Devitalized: 90 Length (cm): 1.2 Width (cm): 2.9 Depth (cm): 2.5 CM Sq: 3.480 Surrounding Tissue Appearance: [place] Surrounding Tissue Temp: Warm Drainage Amount: Small [...] signed by MD Luis Angel Saucedo> 06/12/23925 [facility] Work Phone: 1(357) 581-278412-20-2023 Evaluation note* Encounter Date Diagnosis Assessment Notes Treatment Notes Treatment Clinical Notes May, Pernicious anemia (ICD-10 - D51.0) [facility] Other 12-18-2023 Hospital Discharge instructions Additional Instructions Initiate negative pressure wound therapy using black foam at 125 mmHg continuous. Change 3 times a week. In the meantime, perform dressing changes daily. Remove packing, irrigate with saline/Vashe and repack with saline moistened 4 x 4 gauze and cover with dry dressing.[facility] Work Phone: 1(193) 639-117712-05-2023 Progress note Author Luis Angel Saucedo [facility] May 15, 2023 9:57am Note Date/Time May 15, 2023 9 :57am [facility] [address] [place] [address] Wound Center Provider Note Signed Patient: Nora Gibbs MR#: [id number] : 1940 Acct:[id number] Age/Sex: 83 / F Copies to: MD [...] hematoma. She did see her surgeon in [place] who did her previous surgery. Patient had some punch biopsies performed to rule out cancer which apparently did not show any cancer. She did develop nonhealing wound at this site. She underwent a couple debridements and closures in [place] but each time, the wound did open up and start draining. The last debridement was last month. The surgeon who did her previous surgerieshas since left and the patient did see Dr. Kurtz last week. He did remove some remaining sutures and the patient was then referred here. Patient is currently having dressing changes performed at the [place] [facility] infusion center. She has an open [...] did wound start?: 08/2022 Mode of Arrival/ Residential Leasing Agent: Personal vehicle Lives with:: Alone Appetite Description: Within Normal Limits Who helps w/ dressing change?: Infusion Center and Wound Care Dept Why Do You Need Help?: Can't Reach Ulcer Smoking Status: Former smoker Constitutional Constitutional: Denies fever(s) Cardiovascular Cardiovascular: Denies chest pain Respiratory Respiratory: Denies dyspnea Integumentary/Breasts Skin/Breast: Reports wounds [facility] Medical History (Updated 04/24/23 @ 11:09 by [...] by MD Luis Angel Saucedo> 05/15/23 0957 [facility] Work Phone: [phone]) 988-795811-16-2023 Evaluation note* Encounter Date Diagnosis Assessment Notes Treatment Notes Treatment Clinical Notes Apr, Pernicious anemia (ICD-10 - D51.0) [facility] Other 11-14-2023 Progress note Author Luis Angel Saucedo [facility] April 24, 2023 11:12am Note Date/Time April 24, 2023 10:46am [facility] [address] [place] [address] Wound Center Provider Note Signed Patient: Nora Gibbs MR#: [id number] : 1940 Acct:[id number] Age/Sex: 83 / F Copies to: MD [...] hematoma. She did see her surgeon in [place] who did her previous surgery. Patient had some punch biopsies performed to rule out cancer which apparently did not show any cancer. She did develop nonhealing wound at this site. She underwent a couple debridements and closures in [place] but each time, the wound did open up and start draining. The last debridement was last month. The surgeon who did her previous surgerieshas since left and the patient did see Dr. Kurtz last week. He did remove some remaining sutures and the patient was then referred here. Patient is currently having dressing changes performed at the [facility] infusion lancing. She has an open right breast wound [...] did wound start?: 08/2022 Mode of Arrival/ Residential Leasing Agent: Personal vehicle Lives with:: Alone Appetite Description: Within Normal Limits Who helps w/ dressing change?: Infusion Center and Wound Care Dept Why Do You Need Help?: Can't Reach Ulcer Smoking Status: Former smoker Constitutional Constitutional: Denies fever(s) Cardiovascular Cardiovascular: Denies chest pain Respiratory Respiratory: Denies dyspnea Gastrointestinal Gastrointestinal: Denies abdominal pain Integumentary/Breasts Skin/Breast: Reports wounds Neurologic Neurologic: Denies syncope [facility] Medical History (Updated 04/24/23 @ 11:09 by [...] Breast: Bed Appearance: Epithelial Tissue or [place], [place] and Yellow Percent of Wound Bed Granulated/Red: [...] be done daily. Patient goes to the [facility] for this. Patient follow-up here in 3 [...] by MD Luis Angel Saucedo> 04/24/23 1112 [facility] Work Phone: [phone]) 650-580910-03-2023 Evaluation note* Encounter Date Diagnosis Assessment Notes [...] patient on monthly SBE and yearly mammograms. [facility] Other 09-07-2023 Evaluation note* Encounter Date Diagnosis Assessment Notes Treatment Notes Treatment Clinical Notes Feb, Pernicious anemia (ICD-10 - D51.0) [facility] Other 08-09-2023 Evaluation note* Encounter Date Diagnosis Assessment Notes Treatment Notes Treatment Clinical Notes Jan, Lower extremity edema (ICD-10 - R60.0) Jan, ASHD (arteriosclerotic heart disease) (ICD-10 - I25.10) Jan, HEIN (dyspnea on exertion) (ICD-10 - R06.09) [facility] Other 08-07-2023 Evaluation note* Encounter Date Diagnosis Assessment Notes Treatment Notes Treatment Clinical Notes Jan, Pernicious anemia (ICD-10 - D51.0) [facility] Other 07-25-2023 Evaluation note* Encounter Date Diagnosis Assessment Notes Treatment Notes Treatment Clinical Notes Dec, Lower extremity edema (ICD-10 - R60.0) [facility] Other 07-18-2023 Evaluation note* Encounter Date Diagnosis Assessment Notes Treatment Notes Treatment Clinical Notes Dec, Lower extremity edema (ICD-10 - R60.0) [facility] Other 07-17-2023 Evaluation note* Encounter Date Diagnosis [...] factors Dec, Elevated d-dimer (ICD-10 - R79.89) [facility] Other 07-06-2023 Evaluation note* Encounter Date Diagnosis Assessment Notes Treatment Notes Treatment Clinical Notes Dec, Pernicious anemia (ICD-10 - D51.0) [facility] Other 06-05-2023 Evaluation note* Encounter Date Diagnosis Assessment Notes Treatment Notes Treatment Clinical Notes Nov, Pernicious anemia (ICD-10 - D51.0) [facility] Other 05-04-2023 Evaluation note* Encounter Date Diagnosis Assessment Notes Treatment Notes Treatment Clinical Notes October, Pernicious anemia (ICD-10 - D51.0) [facility] Other 04-19-2023 Evaluation note* Encounter Date Diagnosis [...] mammogram in 6mo SBE monthly f/u Surgery [facility] Other 04-04-2023 Evaluation note* Encounter Date Diagnosis Assessment Notes Treatment Notes Treatment Clinical Notes Sep, Pernicious anemia (ICD-10 - D51.0) [facility] Other 03-09-2023 Evaluation note* Encounter Date Diagnosis Assessment Notes Treatment Notes Treatment Clinical Notes Aug, Local infection of the skin and subcutaneous tissue, unspecified (ICD-10 - L08.9) Aug, Other injury of unspecified body region, initial encounter (ICD-10 - T14.8XXA) [facility] Other 03-09-2023 Evaluation note* Encounter Date Diagnosis Assessment Notes Treatment Notes Treatment Clinical Notes Aug, Cellulitis of female breast (ICD-10 - N61.0) Aug, Breast abscess of female (ICD-10 - N61.1) Warm compresses, continue antibiotic coverage. Schedule breast US Refer to Surgery Aug, Hx of breast cancer (ICD-10 - Z85.3) [facility] Other 03-02-2023 Evaluation note* Encounter Date Diagnosis [...] Hx of breast cancer (ICD-10 - Z85.3) [facility] Other 01-31-2023 Evaluation note* Encounter Date Diagnosis Assessment Notes Treatment Notes Treatment Clinical Notes Jun, Pernicious anemia (ICD-10 - D51.0) [facility] Other 05-11-2022 History of Present illness Narrative* Genny Winters PA-C - 10/19/2021 1:30 PM EDT PATIENT NAME: Nora Lopes [facility] NO.: [id number] ATTENDING PHYSICIAN: Stephen Caballero MD DATE OF SERVICE: October 19, 2021 (Elements copied from Dr. Caballero's note dated October 19, 2020, have been reviewed and updated where appropriate, and all reflect current assessment and medical decision making during today's encounter, October 19, 2021) CC: Follow up Diagnosis: 1. Right breast cancer, invasive lobular carcinoma, HER-2/suresh negative ER and MD strongly positive at 95%, diagnosed 2014 Treatment History: 1. Lumpectomy plus sentinel lymph node biopsy October 28, 2014. Invasive lobular carcinoma, 2.2 cm. 2 sentinel lymph nodes negative for involvement. ER MD 95% positive, HER-2/suresh negative. 2. Right breast [...] Date Arthritis Breast cancer (HCC) Right; T2N0M0; ER/MD+ HER2 COPD (chronic obstructive pulmonary disease) (HCC) [...] 2.2 cm, invasive lobular carcinoma, ER and MD 95% positive, HER-2/suresh negative status post lumpectomy [...] CC: Noble Hayes MD documented [facility] Miscellaneous Notes* Telephone Encounter - Stephen Caballero MD - 09/22/2021 1:41 PM EDT Screening is fine. She is 7 years out * Telephone Encounter - Adalgisa Beck RN - 09/22/2021 12:14 PM EDT Patient is scheduled for a screening mammogram on 10/09/21 at [facility]. The diagnosis of malignant neoplasm will not work for a screening mammogram. Patient is 7 years from diagnosis. Would you like to continue with a screening mamm and change the diagnosis to personal history of breast cancer or change the order to a diagnostic mamm? Thanks Sierra Beck RN [facility] summary Author Jim Clay [facility] December 01, 2023 3:07pm Note Date/Time December 01, 2023 3:07 pm [facility] [address] [place] [address] Discharge Summary Signed Patient: Nora Gibbs MR#: [id number] : 1940 Acct:[id number] Age/Sex: 83 / F Adm Date: 4 Loc: Room: [address] [place] [address]: Jim Clay DO Copies to: [...] and stress test thisupcoming week with her radiologic technologist chief in [place]. She was self admitted to hospital for [...] The patient was instructed to see her radiologic technologist chief this upcoming week for her stress test [...] Blister With Device 1 inh INHALATION DAILY vebioz-njcdrigs-sgv C-E-herbal 1,250 mcg-50 mg -67.5 mg-15 mg [...] % (Auto) 62.6, Lymph % (Auto) 22.3, Branch % (Auto) 11.5, Eos % (Auto) 2.8, Baso % (Auto) 0.8, Nucleat RBC Rel Count 0.1, Neut # (Auto) 4.0, Lymph # (Auto) 1.4, Branch # (Auto) 0.7, Eos # (Auto) 0.2, [...] High Sens 15.3 H Documented By: Jim Clay, 12/01/23 1503 Signed By: <Electronically signed by Jim Clay, DO> 12/01/23 1507 [facility] Work Phone: Evaluation note* Diagnosis Encounter for screening mammogram for malignant neoplasm of breast- Primary Other screening mammogram [facility] encounter [facility] [employer] Other Evaluation note* Diagnosis Onset Date Resolution Status History of breast cancer acu te History of radiation exposure acute Nonhealing surgical wound ac [place] [facility] Work Phone: Evaluation note* Diagnosis Onset Date Resolution Status Essential hypertension acute Cerumen impaction noneactive History of breast cancer acu te History of radiation exposure acute Nonhealing surgical wound [place] [facility] Work Phone: Evaluation note* Diagnosis Onset Date Resolution Status History of breast cancer acu te History of radiation exposure acute Nonhealing surgical wound ac [place] ASHD (arteriosclerotic heart disease) acute Chronic bronchitis acute Edema acute Essential hypertension acute History of breast cancer acu te Hypothyroidism acute Pernicious anemia acute Stage 3a chronic kidney disease acute [facility] Work Phone: Evaluation note* Diagnosis Onset Date Resolution Status ASHD (arteriosclerotic heart disease) acute Chronic bronchitis acute Essential hypertension acute History of breast cancer acu te Hypothyroidism acute Lower extremity edema acute Pernicious anemia acute Stage 3a chronic kidney disease acute Chest pain acute Essential hypertension acute [facility] Work Phone: Evaluation note* Diagnosis Onset Date Resolution Status ASHD (arteriosclerotic heart disease) acute Chronic bronchitis acute Essential hypertension acute History of breast cancer acu te Hypothyroidism acute Lower extremity edema acute Pernicious anemia acute Stage 3a chronic kidney disease acute Chest pain acute Essential hypertension acute Lower extremity edema acute [facility] Work Phone: Evaluation note* Diagnosis Onset [...] acute Stage 3a chronic kidney disease acute [facility] Work Phone: Evaluation note* Diagnosis Onset Date Resolution Status (HFpEF) heart failure with preserved ejection fraction acute ASHD (arteriosclerotic heart disease) acute Chronic bronchitis acute Hypothyroidism acute Nicotine dependence, cigarettes, in remission acute Obesity acute Stage 3a chronic kidney disease acute [facility] Work Phone: History general Narrative - [...] cell skin cancer Hospitalization History SEE ABOVE [facility] Other [employer] general Narrative - Reported* Type Description Date [...] History SEE ABOVE Hospitalization History SEE ABOVE [facility] Other History general Narrative - ReportedNoBumpr Other [employer] general Narrative - Reported* Type Description Date [...] cell skin cancer Hospitalization History SEE ABOVE [facility] Other Hisx[employer] general Narrative - Reported* Type Description Date [...] ulcera tion 01/2023 Hospitalization History SEE ABOVE [facility] Other History general Narrative - Reported* Type [...] ulcera tion 05/2023 Hospitalization History SEE ABOVE [facility] Other Progress note Author Luis Angel Saucedo [facility] August 28, 2023 9:48am Note Date/Time August 28, 2023 9:4 8am [facility] [address] [place] [address] Wound Center Provider Note Signed Patient: Nora Gibbs MR#: [id number] : 1940 Acct:[id number] Age/Sex: 83 / F Copies to: MD [...] hematoma. She did see her surgeon in [place] who did her previous surgery. Patient had some punch biopsies performed to rule out cancer which apparently did not show any cancer. She did develop nonhealing wound at this site. She underwent a couple debridements and closures in [place] but each time, the wound did open up and start draining. The last debridement was last month. The surgeon who did her previous surgerieshas since left and the patient did see Dr. Kurtz last week. He did remove some remaining sutures and the patient was then referred here. Patient is currently having dressing changes performed at the [facility] center. She has an open right breast [...] did wound start?: 08/2022 Mode of Arrival/ Residential Leasing Agent: Personal vehicle Lives with:: Alone Appetite Description: Within Normal Limits Who helps w/ dressing change?: Home Health and Wound Care Dept Why Do You Need Help?: Can't Reach Ulcer Smoking Status: Former smoker Constitutional Constitutional: Denies fever(s) [facility] Medical History Stage 3a chronic kidney disease [...] 0 CM Sq: 0.000 Surrounding Tissue Appearance: [place] Surrounding Tissue Temp: Warm Drainage Amount: None [...] by MD Luis Angel Saucedo> 08/28/23 0948 [facility] Work Phone: Reason for referral (narrative)* Diagnostic Procedure Only (Routine) - Pending Review Specialty Diagnoses / Procedures Referred By Contac t Referred To Contact [facility] Diagnoses Encounter for screening mammogram for malignant neoplasm of breast Procedures KAREN SCREENING SCREENING MAMMOGRAPHY BI 2-VIEW BREAST INC Genny Pitts, LASHAY [address] [place] [address] [place] [address] [facility] [address] [place] [address] Referral ID Status Reason Start Date Expiration Date Visits Requested Visits Authorized [id number] Pending Review Auto-Generat ed Referral 10/19/2021 11/18/2022 1 1 [facility] for referral (narrative)* Reason *FU 09/04 Referral for right breast abscess Diagnosis 1 Breast abscess of fe male (N61.1) Referral Organization [facility] roma Referring Provider First Name Noble Referring Provider Last Name Marty Referring Provider Specialty Internal Me brooks Referred Organization Unknown Facility Referred Provider Checo Reis Referred Provider Specialty Surgery Referral Priority Routine General Notes Kelly Gilbert 01:34:05 PM >received today, notes locked, and referral faxed Kelly Gilbert 08/28/2022 12:05:49 PM >FAXED FIRST ATTEMPT LETTER Clinical Notes . . [facility] Other Reason for referral (narrative)No reason for referral [facility]German [facility] Work Phone: Summary Purpose Family History No Family History [...] 10:17am Stage 3a chronic kidney disease Septembe 2023 10:17am Chief Complaint Admit Date B12 April 21, 2024 10:54am B12 Shot May 21, 2024 1:12pm wellness May 27, 2024 2:50pm CC Adult Risk Stratification May 302023 10:30am b12 shot June 23, 2024 1 :34pm Reason for Visit Admit Date (HFpEF) heart failure with preserved eje ction fraction May 27, 2024 2:50pm ASHD (arteriosclerotic heart disease) 2023 2:50pm Chronic bronchitis May 27, 2024 2:50pm Hypertension May 27, 2024 2:50pm Hypothyroidism May 27, 2024 2:50pm Medicare annual wellness visit, subseque nt May 27, 2024 2:50pm Nicotine dependence, cigarettes, in [place] ssion May 27, 2024 2:50pm Obesity May 27, 2024 2:50pm Screening mammogram for breast cancer 2023 2:50pm Stage 3a chronic kidney disease May 27, 2024 2:50pm Chief Complaint Admit Date B12 Shot May 21, 2024 1:12pm wellness May 27, 2024 2:50pm CC Adult Risk Stratification May 302023 10:30am b12 shot June 23, 2024 1 :34pm b12 shot July 28, 2024 1:15pm Chief Complaint Admit Date wellness May 27, 2024 2:50pm CC Adult Risk Stratification May 302023 10:30am b12 shot June 23, 2024 1 :34pm b12 shot July 28, 2024 1:15pm 3 month f/u August 22, 2024 11: 22am Reason for Visit Admit Date (HFpEF) heart failure with preserved eje ction fraction May 27, 2024 2:50pm ASHD (arteriosclerotic heart disease) 2023 2:50pm Chronic bronchitis May 27, 2024 2:50pm Hypertension May 27, 2024 2:50pm Hypothyroidism May 27, 2024 2:50pm Medicare annual wellness visit, subseque nt May 27, 2024 2:50pm Nicotine dependence, cigarettes, in ruth ssion May 27, 2024 2:50pm Obesity May 27, 2024 2:50pm Screening mammogram for breast cancer 2023 2:50pm Stage 3a chronic kidney disease May 27, 2024 2:50pm (HFpEF) heart failure with preserved eje ction fraction August 22, 2024 11:22am ASHD (arteriosclerotic heart disease) [facility] 2024 11:22am Chronic bronchitis August 22, 2024 11: 22am Hypertension August 22, 2024 11: 22am Hypothyroidism August 22, 2024 11: 22am Nicotine dependence, cigarettes, in ruth ssion August 22, 2024 11:22am Obesity August 22, 2024 11: 22am Stage 3a chronic kidney disease August 222024 11:22am Chief Complaint Admit Date CC Adult Risk Stratification May 302023 10:30am b12 shot June 23, 2024 1 :34pm b12 shot July 28, 2024 1:15pm 3 month f/u August 22, 2024 11: 22am b12 shot August 27, 2024 1:2 5pm Reason for Visit Admit Date (HFpEF) heart failure with preserved eje ction fraction August 22, 2024 11:22am ASHD (arteriosclerotic heart disease) [facility] 2024 11:22am Chronic bronchitis August 22, 2024 11: 22am Hypertension August 22, 2024 11: 22am Hypothyroidism August 22, 2024 11: 22am Nicotine dependence, cigarettes, in ruth ssion August 22, 2024 11:22am Obesity August 22, 2024 11: 22am Stage 3a chronic kidney disease August 222024 11:22am Chief Complaint Admit Date b12 shot July 28, 2024 1:15pm 3 month f/u August 22, 2024 11: 22am b12 shot August 27, 2024 1:2 5pm B12 Shot September 29, 2024 1:2 2pm Chief Complaint Admit Date b12 shot July 28, 2024 1:15pm 3 month f/u August 22, 2024 11: 22am b12 shot August 27, 2024 1:2 5pm B12 Shot September 29, 2024 1:2 2pm Amb Documentation October 06, 2024 10: 31am [facility] ER; cough/SOB October 06, 2024 1:1 9pm Chief Complaint Admit Date 3 month f/u August 22, 2024 11: 22am b12 shot August 27, 2024 1:2 5pm B12 Shot September 29, 2024 1:2 2pm Amb Documentation October 06, 2024 10: 31am [facility] ER; cough/SOB October 06, 2024 1:1 9pm b12 shot October 29, 2024 10:52 am 3 month f/u November 19, 2024 1:43 pm Reason for Visit Admit Date (HFpEF) heart failure with preserved eje ction fraction August 22, 2024 11:22am ASHD (arteriosclerotic heart disease) [facility] 2024 11:22am Chronic bronchitis August 22, 2024 11: 22am Hypertension August 22, 2024 11: 22am Hypothyroidism August 22, 2024 11: 22am Nicotine dependence, cigarettes, in ruth ssion August 22, 2024 11:22am Obesity August 22, 2024 11: 22am Stage 3a chronic kidney disease August 222024 11:22am ASHD (arteriosclerotic heart disease) [facility] 2024 1:19pm Chronic bronchitis October 06, 2024 1:1 9pm Hypertension October 06, 2024 1:1 9pm Hypertensive chronic kidney disease [facility] 2024 1:19pm Chronic obstructive pulmonar y disease with (acute) lower respiratory infection October 06, 2024 1:19pm Acute exacerbation of chronic obstructiv e airways disease October 06, 2024 1:19pm (HFpEF) heart failure with preserved eje ction fraction November 19, 2024 1:43pm ASHD (arteriosclerotic heart disease) [facility] 2024 1:43pm Chronic bronchitis November 19, 2024 1:43 pm Hypertension November 19, 2024 1:43 pm Hypothyroidism November 19, 2024 1:43 pm Nicotine dependence, cigarettes, in ruth ssion November 19, 2024 1:43pm Obesity November 19, 2024 1:43 pm Chief Complaint Admit Date Amb Documentation October 06, 2024 10: 31am [facility] ER; cough/SOB October 06, 2024 1:1 9pm b12 shot October 29, 2024 10:52 am 3 month f/u November 19, 2024 1:43 pm Amb Documentation November 24, 2024 10:5 5am IP heart cath [facility] November 26, 2024 11:1 2am B12 shot December 01, 2024 12:0 3pm B12 shot December 31, 2024 11:1 8am Reason for Visit Admit Date ASHD (arteriosclerotic heart disease) [facility] 2024 1:19pm Chronic bronchitis October 06, 2024 1:1 9pm Hypertension October 06, 2024 1:1 9pm Hypertensive chronic kidney disease Apri [facility] 2024 1:19pm Chronic obstructive pulmonar y disease with (acute) lower respiratory infection October 06, 2024 1:19pm Acute exacerbation of chronic obstructiv e airways disease October 06, 2024 1:19pm (HFpEF) heart failure with preserved eje ction fraction November 19, 2024 1:43pm ASHD (arteriosclerotic heart disease) Ju ne 2024 1:43pm Chronic bronchitis November 19, 2024 1:43 pm Hypertension November 19, 2024 1:43 pm Hypothyroidism November 19, 2024 1:43 pm Nicotine dependence, cigarettes, in ruth ssion November 19, 2024 1:43pm Obesity November 19, 2024 1:43 pm (HFpEF) heart failure with preserved eje ction fraction November 26, 2024 11:12am ASHD (arteriosclerotic heart disease) Ju ne 2024 11:12am Chronic bronchitis November 26, 2024 11:1 2am Hypertension November 26, 2024 11:1 2am Nicotine dependence, cigarettes, in ruth ssion November 26, 2024 11:12am Obesity November 26, 2024 11:1 2am Additional Source Comments INFORMATION SOURCE (unrecogn ized section and content) DATE CREATED AUTHOR 09/16/2018 [facility] DATE CREATED AUTHOR AUTHOR'S ORGANIZ ATION 08/23/2022 [facility] DATE CREATED AUTHOR AUTHOR'S ORGANIZ ATION 11/17/2022 [facility] DATE CREATED AUTHOR AUTHOR'S ORGANIZ ATION 06/27/2023 [facility] DATE CREATED AUTHOR AUTHOR'S ORGANIZ ATION 12/11/2023 [facility] DATE CREATED AUTHOR AUTHOR'S ORGANIZ ATION 01/10/2025 [facility] Source Comments (unrecognize d section and content) In the event this informatio n is protected by the Federal Confidentiality of Alcohol and Drug Abuse Patient Records regulations: The Federal rules restrict any use of the information to criminally investigate or prosecute any alcohol or drug abuse patient.[facility] the event this information is protected by the Federal Confidentiality of Alcohol and Drug Abuse Patient Records regulations: The Federal rules restrict any use of the information to criminally investigate or prosecute any alcohol or drug abuse patient.[facility] Reason for Visit (unrecogniz ed section and content) Reason Comments Breast Cancer 1 year follow up Reason Comments Orders Care Teams (unrecognized sec tion and content) Team Status: Active Member Role Status Dates Noble Hayes , DO Primary Care Provider Active Team Status: Active Member Role Status Dates Noble Hayes DO Primary Care Provider Active Start: October 04, 2024 Danyel Randle DO Attending Provider Active Start: October 04, 2024 Team Status: Active Member Role Status Dates Noble Hayes DO Primary Care Provider Active Start: October 06, 2024 Ly Sexton CMA Attending Provider Active Start: October 06, 2024 Team Status: Inactive Member Role Status Dates Noble Hayes DO Primary Care Provider Active Start: October 06, 2024 End: October 06, 2024 Noble Hayes , DO Attending Provider Active Sta rt: October 06, 2024 End: October 06, 2024 Team Status: Active Member Role Status Dates Noble Hayes DO Primary Care Provider Active Start: October 09, 2024 Leander Juan MD Attending Provider Active Start : October 09, 2024 Team Status: Inactive Member Role Status Dates Noble Hayes DO Primary Care Provider Active Start: October 29, 2024 End: October 29, 2024 Noble Hayes , DO Attending Provider Active Sta rt: October 29, 2024 End: October 29, 2024 Team Status: Active Member Role Status Dates Noble Hayes DO Primary Care Provider Active Start: November 14, 2024 Bala Zepeda MD Attending Provider Active Start: November 14, 2024 Team Status: Inactive Member Role Status Dates Noble Hayes DO Primary Care Provider Active Start: November 19, 2024 End: November 19, 2024 Noble Hayes , DO Attending Provider Active Sta rt: November 19, 2024 End: November 19, 2024 Team Status: Active Member Role Status Dates Noble Hayes DO Primary Care Provider Active Start: November 24, 2024 Ly Sexton CMA Attending Provider Active Start: November 24, 2024 Team Status: Inactive Member Role Status Dates Noble Hayes DO Primary Care Provider Active Start: November 26, 2024 End: November 26, 2024 Noble Hayes , DO Attending Provider Active Sta rt: November 26, 2024 End: November 26, 2024 Team Status: Inactive Member Role Status Dates Noble Hayes DO Primary Care Provider Active Start: December 01, 2024 End: December 01, 2024 Noble Hayes , DO Attending Provider Active Sta rt: December 01, 2024 End: December 01, 2024 Team Status: Inactive Member Role Status Dates Noble Hayes DO Primary Care Provider Active Start: December 31, 2024 End: December 31, 2024 Noble Hayes , DO Attending Provider Active Sta rt: December 31, 2024 End: December 31, 2024 Team Status: Inactive Member Role Status Rick Hayes DO Primary Care Provide r, Attending Provider Active Start: July 28, 2024 End: July 28, 2024 Team Status: Inactive Member Role Status Rick Hayes DO Primary Care Provide r, Attending Provider Active Start: August 22, 2024 End: August 22, 2024 Team Status: Inactive Member Role Status Rick Hayes DO Primary Care Provide r, Attending Provider Active Start: August 27, 2024 End: August 27, 2024 Team Status: Inactive Member Role Status Rick Hayes DO Primary Care Provide r, Attending Provider Active Start: September 29, 2024 End: September 29, 2024 Team Status: Active Member Role Status Rick Hayes DO Primary Care Provide r, Attending Provider Active Start: May 30, 2024 Team Status: Inactive Member Role Status Rick Hayes DO Primary Care Provide r, Attending Provider Active Start: June 23, 2024 End: June 23, 2024 Team Status: Inactive Member Role Status Rick Hayes DO Primary Care Provide r, Attending [...] End: September 06, 2023 Lesly Dye APRN AUTOMATIC OPERATOR-C Attending Provider Act wyatt Start: September 06, 2023 End: September 06, 2023 Team Status: Inactive Member Role Status Rick Hayes DO Primary Care Provide r, Attending Provider Active Start: October 08, 2023 End: October 08, 2023 Team Status: Inactive Member Role Status Rick Hayes DO Primary Care Provide r, Attending Provider Active Start: November 08, 2023 End: November 08, 2023 Merchandise Supervisor Relationship Specialty Start Date End Date Noble Hayes DO PCP - General Internal Medicine 11/09/14 Merchandise Supervisor Relationship Specialty Start Date End Date Noble Hayes DO PCP - General Internal Medicine 11/09/14 Team Status: Active Member Role Status Rick Hayes DO Primary Care Provider Active Luis Angel Saucedo MD Attending Provider Active Team Status: Inactive Member Role Status Rick Hayes DO Primary Care Provider Active Luis Angel Saucedo MD Attending Provider Active Team Status: Active Member Role Status Rick Hayes DO Primary Care Provider Active Start: August 06, 2023 RADHA Swan Attending Provider Active Start : August 06, 2023 Team Status: Inactive Member Role Status Rick Hayes DO Primary Care Provide r, Attending Provider Active Start: August 06, 2023 End: August 06, 2023 Team Status: Inactive Member Role Status Rick Hayes DO Primary Care Provide r, Attending Provider Active Start: November 19, 2023 End: November 19, 2023 Team Status: Active Member Role Status Rick Hayes DO Primary Care Provide r, Attending [...] 2023 Team Status: Inactive Member Role Status Rick Hayes DO Primary Care Provide r, Attending Provider Active Start: December 07, 2023 End: December 07, 2023 Team Status: Inactive Member Role Status Rick Hayes DO Primary Care Provide r, Attending Provider Active Start: December 10, 2023 End: December 10, 2023 Team Status: Inactive Member Role Status Rick Hayes DO Primary Care Provide r, Attending Provider Active Start: January 14, 2024 End: January 14, 2024 Team Status: Active Member Role Status Rick Hayes DO Primary Care Provider Active Start: January 17, 2024 Bala Zepeda MD Attending Provider Active Start: January 17, 2024 Team Status: Active Member Role Status Rick Hayes DO Primary Care Provider Active Start: January 24, 2024 Bala Zepeda MD Attending Provider Active Start: January 24, 2024 Team Status: Inactive Member Role Status Dates Noble Hayes DO Primary Care Provide r, Attending Provider Active Start: February 15, 2024 End: February 15, 2024 Team Status: Inactive Member Role Status Rick Hayes DO Primary Care Provide r, Attending Provider Active Start: February 19, 2024 End: February 19, 2024 Team Status: Active Member Role Status Rick Hayes DO Primary Care Provide r, Attending Provider Active Start: February 25, 2024 Team Status: Inactive Member Role Status Rick Hayes DO Primary Care Provide r, Attending [...] April 21, 2024 End: April 21, 2024 Team Status: Inactive Member Role Status Dates Noble Hayes , DO Primary Care Provide r, Attending Provider Active Start: May 21, 2024 End: May 21, 2024 Team Status: Inactive Member Role Status Dates Noble Hayes , DO Primary Care Provide r, Attending Provider Active Start: May 27, 2024 End: May 27, 2024 Team Status: Inactive Member Role Status Rick Hayes , DO Primary Care Provide r, Attending Provider Active Start: October 06, 2024 End: October 06, 2024 Team Status: Inactive Member Role Status Rick Hayes , DO Primary Care Provide r, Attending Provider Active Start: October 29, 2024 End: October 29, 2024 Team Status: Inactive Member Role Status Rick Hayes , DO Primary Care Provide r, Attending Provider Active Start: November 19, 2024 End: November 19, 2024 Goals (unrecognized section and content) [...] BE BASED ON THE PRIMARY CLINICAL RECORDS. [facility]. provides no warranty or guarantee of the accuracy or completeness of information in this document.
== END 2025-01-27 09:59 | disposition home or self-care (01) ==
LOC: RAD 09:58
PROVIDERS: PCP Internal Medicine Interventional Cardiology; Visit Provider Orthopaedic Surgery
DX: M25.551 Pain in right hip (principal); M25.552 Pain in left hip; Z96.643 Presence of artificial hip joint, bilateral
CPT/HCPCS: 73523

== ENCOUNTER 2025-02-27 14:02 | Outpatient (OUT) | payer MEDICARE, SELFPAY ==
--- OUTSIDE RECORDS SUMMARY | 2025-02-23 10:15 | XMS_ITS | Continuity of Care Document ---
Author Organization [facility] Address [address] [place] [address] Phone Care Team Providers Care Stem Mounter Name Role Phone Marty Noble VILLALTA Primary Care Provider Noble Ferguson DO Attending Provider [phone] Bobby Blood II, MD Attending Provider [phone] Care Teams Patient Care Team Team Status: Active Member Role Status Dates Noble Ferguson DO Primary Care Provider Active Visit Care Team Team Status: Inactive Member Role Status Dates Noble Ferguson DO Primary Care Provider Active Start: November 26, 2024 End: November 26, 2024 Noble Ferguson DO Attending Provider Active Sta rt: November 26, 2024 End: November 26, 2024 Visit Care Team Team Status: Inactive Member Role Status Dates Noble Ferguson DO Primary Care Provider Active Start: December 01, 2024 End: December 01, 2024 Noble Ferguson DO Attending Provider Active Sta rt: December 01, 2024 End: December 01, 2024 Visit Care Team Team Status: Inactive Member Role Status Dates Noble Ferguson DO Primary Care Provider Active Start: December 31, 2024 End: December 31, 2024 Noble Ferguson DO Attending Provider Active Sta rt: December 31, 2024 End: December 31, 2024 Visit Care Team Team Status: Inactive Member Role Status Dates Noble Ferguson DO Primary Care Provider Active Start: January 27, 2025 End: January 27, 2025 Bobby Blood II, MD Attending Provider Active Start: January 27, 2025 End: January 27, 2025 Visit Care Team Team Status: Inactive Member Role Status Dates Noble Ferguson DO Primary Care Provider Active Start: February 02, 2025 End: February 02, 2025 Noble Ferguson DO Attending Provider Active Sta rt: February 02, 2025 End: February 02, 2025 Patient Care Team Team Status: Inactive Member Role Status Dates Noble Ferguson DO Primary Care Provider Active Start: February 23, 2025 End: February 23, 2025 Noble Ferguson DO Attending Provider Active Sta rt: February 23, 2025 End: February 23, 2025 Chief Complaint and Reason for Visit Chief Complaint Admit Date IP heart cath [facility] November 26, 2024 11:1 2am B12 shot December 01, 2024 12:0 3pm B12 shot December 31, 2024 11:1 8am [facility] NX PREV JRB KRISTA Jan ust 2024 9:48am B12 shot February 02, 2025 1: 05pm 3 month f/u February 23, 2025 1:21pm Reason for Visit Admit Date (HFpEF) heart failure with preserved eje ction fraction November 26, 2024 11:12am ASHD (arteriosclerotic heart disease) Ju 2024 11:12am Chronic bronchitis November 26, 2024 11:1 2am Hypertension November 26, 2024 11:1 2am Nicotine dependence, cigarettes, in ruth ssion November 26, 2024 11:12am Obesity November 26, 2024 11:1 2am Greater trochanteric bursitis of left hi p January 27, 2025 9:48am Greater trochanteric bursitis of right h ip January 27, 2025 9:48am (HFpEF) heart failure with preserved eje ction fraction February 23, 2025 1:21pm ASHD (arteriosclerotic heart disease) Se ptember 2024 1:21pm Chronic bronchitis February 23, 2025 1:21pm Chronic kidney disease February 23, 2 025 1:21pm History of breast cancer February 23, 2025 1:21pm Hypertension February 23, 2025 1:21pm Hypothyroidism February 23, 2025 1:21pm Nicotine dependence, cigarettes, in ruth ssion February 23, 2025 1:21pm Obesity February 23, 2025 1:21pm Allergies, Adverse Reactions, Alerts Allergen Type Severity Reaction Last Updated Verified Status Comments penicillamine Allergy Unknown Hives February 23, 2025 1:24pm Yes Active Penicillins Allergy Unknown Hives February 23, 2025 1:24pm Yes Active Onset Date: 05/15/2014 Sulfa (Sulfonamide Antibiotics) Allergy Unknown Hives February 23, 2025 1:24pm Yes Active Onset Date: 05/15/2014 sulfacetamide Allergy Unknown Rash February 23, 2025 1:24pm Yes Active sulfur Allergy Unknown Rash February 23, 2025 1:24pm Yes Active Social History Smoking Status Status Start Date End Date Date of Observa tion Ex-smoker (finding) November 10, 2007 November 102023 2:53pm Observation Status Observation Response Date of Response Legal Sex Female (finding) Sex Assigned At Female March h, 89 Family History Relationship Condition Age at Onset Recorded Date/T nithin father Myocardial infarction Unknown sister Malignant neoplasm Unknown father Unknown mother Unknown Problems Active Problems Medical Problem Onset Date Status Comments Medicare annual wellness vis it, subsequent Unknown Active Primary insomnia Unknown Active Greater trochanteric bursiti s of left hip Unknown Active Greater trochanteric bursiti s of right hip Unknown Active Nicotine dependence, cigaret shawn, in remission Unknown Active Screening mammogram for l[address] st cancer Unknown Active History of breast cancer Unknown Active (HFpEF) heart failure with preserved ejection fraction Unknown Active Echo: LVEF 5 5%, mild , normal RV size/function - 11/2023,Echo: LVEF 60%, KAREEM, normal RV size/function, RVSP 33 - 10/2024 Pernicious anemia Unknown Active Dyspnea Unknown Active Edema Unknown Active Hypothyroidism Unknown Active Chronic kidney disease Unknown Active Pulmonary nodules Unknown Active Bilateral hip pain Unknown Active History of radiation exposure Unknown Active Chronic bronchitis Unknown Active PFT: mild obstructive defect, mild restrictive defect, decreased DLCO - 02/2024,CTA chest: negative - 11/2023 Hypertension Unknown Active Obesity Unknown Active ASHD (arteriosclerotic heart disease) Unknown Active LHC: PCI/stent RCA, 70% LCx, 70% distal LAD - 08/2018,Stress testing w/o ischemia - 11/2023,PCI/stent mid LCx - 11/2024 Inactive/Resolved Problems Medical Problem Onset Date Status Comments Lower extremity edema Unknown Resolved Essential hypertension Unknown Resolved Chest pain Unknown Resolved Medications Medication Status Dose Units Route Directions Qty Days St art Date Stop Date End Date Instructions Adherence Temazepam 30 mg capsule Discont inued 30 MG PO Daily at bedtime 2023 10:00a m Augus 2023 9:00p m Lisinopril 20 mg tablet Discont inued 0 .ROUTE .COMPLEX August 30, 2023 3:12pm December 07, 2023 6:33p m TAKE ONE TABLET BY MOUTH DAILY Doxazosin 2 mg tablet Discont inued 2 MG PO Daily at bedtime November 26, 2023 12:00a m November 30, 2023 2:24p m Furosemide 20 mg tablet Discont inued 20 MG PO Twice daily January 01, 2024 12:00a m [facility] 2023 10:25 am Lisinopril 30 mg tablet Discont inued 30 MG PO Daily January 03, 2024 11:34a m [facility] 2023 11:02 am Temazepam 30 mg capsule Discont inued 30 MG PO Daily at bedtime January 28, 2024 9:00pm 2024 2:13p m Levothyroxi ne 88 mcg tablet Discont inued 0 .ROUTE .COMPLEX January 29, 2024 1:10pm December 24, 2024 10:08 pm TAKE ONE TABLET BY MOUTH ONCE DAILY ON AN EMPTY STOMACH Furosemide 20 mg tablet Discont inued 20 MG PO Twice daily [facility] 2023 12:00a m Dece 2023 4:20p m Isosorbide Mononitrate 30 mg tablet extended release 24 hr Discont inued 30 MG PO Daily [facility] 2023 12:00a m November 24, 2024 11:02 am Lisinopril 20 mg tablet Active 20 MG PO Twice daily [facility] 2023 12:00a m Complies with drug therapy Temazepam 30 mg capsule Discont inued 30 MG PO Daily at bedtime 2024 2:12pm [facility] 2024 5:52p m Ondansetron 4 mg tablet,disi ntegrating Discont inued 4 MG PO Every 8 hours as needed for nausea and vomiting 03 15October 08, 2024 12:00a m November 23, 2024 3:40p m Clopidogrel 75 mg tablet Active 75 MG PO Daily November 23, 2024 12:00a m Complies with drug therapy Doxazosin 4 mg tablet Discont inued 8 MG PO Daily at bedtime 60 November 23, 2024 3:39pm [facility] 2024 1:29p m Isosorbide Mononitrate 30 mg tablet extended release 24 hr Discont inued 30 MG PO Daily November 24, 2024 11:01a m December 30, 2024 7:59p m take 30mg in the morning; take 60+30mg to EQUAL 90mg Levothyroxi ne 88 mcg tablet Active 0 .ROUTE .COMPLEX December 24, 2024 10:08p m TAKE ONE TABLET BY MOUTH ONCE DAILY ON AN EMPTY STOMACH Complies with drug therapy Isosorbide Mononitrate 120 mg tablet extended release 24 hr Discont inued 30 MG PO Daily December 30, 2024 7:58pm [facility] 2024 1:44p m take 30mg in the morning; take 60+30mg to EQUAL 90mg Pantoprazol e 20 mg tablet,jason yed release (DR/EC) Active 20 MG PO Daily December 30, 2024 12:00a m Complies with drug therapy Temazepam 30 mg capsule Active 30 MG PO Daily at bedtime January 22, 2025 5:52pm Complies with drug therapy Atorvastati n 40 mg tablet Active 40 MG PO Daily [facility] 2022 1:00am Complies with drug therapy Lisinopril 20 mg tablet Discont inued 20 MG PO Every morning [facility] 2022 1:00am August 30, 2023 3:12p m Cyanocobala min (Vitamin B-12) (Vitamin B-12) 100 mcg/mL Solution Discont inued 100 MCG [facility] 2022 1:00am [facility] 2022 11:42 am Isosorbide Mononitrate 60 mg tablet extended release 24 hr Discont inued 60 MG PO Every morning [facility] 2022 1:00am November 23, 2024 3:40p m Levothyroxi ne 88 mcg tablet Discont inued 88 MCG PO Every morning [facility] 2022 1:00am Aug[facility] t 2023 1:10p m Temazepam 30 mg capsule Discont inued 30 MG PO [facility] Feb[facility] 2023 10:01 am Amlodipine 10 mg tablet Discont inued 10 MG PO [facility] 1:00am November 26, 2023 4:11p m Aspirin 81 mg Tablet,Chew able Active 81 MG PO Daily Nove[facility] er 2022 1:00am Complies with drug therapy Calcium Carbonate-V itamin D3 (Calcium 600 + D(3)) 600 mg-10 mcg (400 unit) Tablet Active 1 TAB PO Daily Novemb er 2022 1:00am Complies with drug therapy Inulin (Fiber Gummies) 2 gram Tablet,Chew able Active 2 GM PO Twice daily [facility] 2022 1:00am Complies with drug therapy Fluticasone -Umeclidin- Vilanter (Trelegy Ellipta) 200-62.5-25 mcg Blister With Device Discont inued 1 INH INHALA TION Daily [facility] er 2022 1:00am October 29, 2024 1:02p m Biotin-Julian agen-Vit C-E-Herbal 1,250 mcg-50 mg -67.5 mg-15 mg Tablet,Chew able Active 2 TAB PO Daily [facility] 1:00am Complies with drug therapy Doxazosin 2 mg tablet Discont inued 2 MG PO Daily at bedtime November 30, 2023 12:00a m August 22, 2024 12:02 pm Spironolact one 25 mg Tablet Discont inued 25 MG PO Daily December 01, 2023 12:00a m [facility] 2023 12:45 pm Metoprolol Succinate 25 mg Tablet Extended Release 24 Hr Active 12.5 MG PO Daily December 01, 2023 12:00a m Complies with drug therapy Doxazosin 2 mg tablet Discont inued 3 MG PO Daily at bedtime August 22, 2024 12:01p m November 23, 2024 3:40p m Acetaminoph en 500 mg Tablet Discont inued 500 MG PO Q6H as needed for Pain Decemb er 2022 1:00am Octob er 2023 2:29p m Cyanocobala min (Vitamin B-12) 1,000 mcg/mL Solution Active 1000 MCG IM every month [facility] er 2022 1:00am Complies with drug therapy Albuterol Sulfate 90 mcg/actuati on Hfa Aerosol Inhaler Discont inued 2 PUFF INHALA TION As Directed as needed for Shortness Of Breath Decemb er 2022 1:00am Septe mber 2023 10:46 am Torsemide 20 mg tablet Discont inued 20 MG PO Every morning 7 November 19, 2023 12:00a m November 30, 2023 3:03p m Albuterol Sulfate 90 mcg/actuati on HFA aerosol inhaler Discont inued 2 PUFF INHALA TION As Directed as needed for Shortness Of Breath 8.5 30 Septem brandi 2023 10:45a m Septe mber 2023 12:49 pm Lisinopril 40 mg tablet Discont inued 40 MG PO Daily Septem brandi 2023 10:49a m Septe mber 2023 12:46 pm Lisinopril 40 mg tablet Discont inued 30 MG PO Daily Septem brandi 2023 12:46p m Octob er 2023 6:05p m Lisinopril 30 mg tablet Discont inued 30 MG PO Daily Septem brandi 2023 12:00a m Octob er 2023 6:05p m Albuterol Sulfate 90 mcg/actuati on HFA aerosol inhaler Active 2 PUFF INHALA TION EVERY 4-6 HOURS as needed for Shortness Of Breath 8.5 30 Septem brandi 2023 12:49p m Complies with drug therapy Lisinopril 40 mg tablet Discont inued 40 MG PO Daily Octobe r 2023 6:05pm Octob er 2023 2:30p m Furosemide 20 mg tablet Discont inued 20 MG PO Daily November 19, 2024 12:00a m November 24, 2024 11:00 am Fluticasone -Umeclidin- Vilanter (Trelegy Ellipta) 200-62.5-25 mcg blister with device Active 1 INH INHALA TION Daily October 29, 2024 12:00a m Complies with drug therapy Doxazosin 4 mg tablet Active 4 MG PO Daily 2024 12:00a m Complies with drug therapy Isosorbide Mononitrate 30 mg tablet extended release 24 hr Active MG PO January 27, 2025 12:00a m Complies with drug therapy Isosorbide Mononitrate 60 mg tablet extended release 24 hr Active MG PO January 27, 2025 12:00a m Complies with drug therapy Lisinopril 30 mg tablet Discont inued 30 MG PO Daily December 07, 2023 12:30p m December 10, 2023 4:47p m Add to Lisinopril 20mg (total 30mg/day) Lisinopril 10 mg tablet Discont inued 10 MG PO Daily December 10, 2023 12:00a m January 03, 2024 11:35 am Take w/ 20mg Lisinopril for total of 30mg qd Lisinopril 30 mg tablet Discont inued 30 MG PO Daily December 10, 2023 4:47pm January 03, 2024 11:36 am Amlodipine 2.5 mg tablet Discont inued 2.5 MG PO Daily Dece 2023 1:00am August 22, 2024 12:20 pm Azithromyci n 250 mg tablet Discont inued 250 MG PO .COMPLEX 6 5 October 06, 2024 12:00a m November 24, 2024 11:00 am 2 tabs on first day followed by 1 tab on days 2-5 Immunizations Immunization Event Date Not Given Reason Dose Number [employer] Lot Number Vaccine Information Statement (VIS) Detail Administration Location COVID-19 mRNA, Comirnaty ([employer]) August 16, 2020 COVID-19 mRNA, Comirnaty ([employer]) September 07, 2020 COVID-19 mRNA, Comirnaty ([employer]) March 07, 2021 Fluzone TIV High-Dose 65YR+ February 19, 2024 [id number] [facility] Fluzone TIV High-Dose 65YR+ February 23, 2025 [id number] [facility] influenza, unspecified formulation March 24, 2015 influenza, unspecified formulation March 21, 2016 influenza, unspecified formulation March 27, 2017 influenza, unspecified formulation March 11, 2018 influenza, unspecified formulation March 18, 2019 influenza, unspecified formulation March 01, 2020 influenza, unspecified formulation March 01, 2021 influenza, unspecified formulation March 06, 2022 influenza, unspecified formulation March 26, 2023 Pneumococcal Conjugate Vaccine, 13 valent March 24, 2015 Pneumococcal Polysacc. Vaccine, 23 valent April 28, 2009 Tetanus, Diphtheria adult, 5 Lf pres free abs April 22, 2013 Vital Signs Vital Reading Result Reference Range Collection Date/Time Height 61 [in_i] November 26, 2024 11:49am Weight 82.55 kg November 26, 2024 11:49am Heart Rate 56 /min 60-100 November 26, 2024 11:49am Oxygen saturation by Pulse oximetry 97 % 95-100 November 26, 2024 11:4 9am BP Systolic 139 mm[Hg] 100-140 November 26, 2024 11:49am BP Diastolic 89 mm[Hg] 60-100 November 26, 2024 11:49am BMI (Body Mass Index) 34.4 kg/m2 November 092024 11:49am Height 61 [in_i] January 27 10:24am Weight 82.10 kg January 27 10:24am BP Systolic 134 mm[Hg] 100-140 January 27 10:24am BP Diastolic 84 mm[Hg] 60-100 January 27 10:24am BMI (Body Mass Index) 34.2 kg/m2 January 27, 2025 10:24am Height 61 [in_i] February 23, 2025 1:29pm Weight 81.41 kg February 23, 2025 1:29pm Heart Rate 66 /min 60-100 February 23, 2025 1:29pm Respiratory rate 24 /min 12-24 February 092024 1:29pm BP Systolic 151 mm[Hg] 100-140 February 23, 2025 1:29pm BP Diastolic 72 mm[Hg] 60-100 February 23, 2025 1:29pm BMI (Body Mass Index) 33.9 kg/m2 Sept2024 1:29pm Advance Directives Advance Directive Response Recorded Date/ Time Advance Directives No November 26 8:48am Insurance Providers Guarantor Nora Rodriguezjoe Address [address] [facility] [phone] Contact Info. Home Phone: Payer Policy Id Subscriber's Name Subscriber Id Effectiv e Date Expiration Date Medicare [id number] Nora Rodriguezjoe [id number] [facility] Health Claims [id number] Nora Parnell [id number] Encounters Encounter Location(s) Arrival/Admit Date Discharge/Depart Date Provider(s) Departed Physician/Prov ider Office Visit -[facility] November 26, 2024 11:12am November 26, 2024 12:31pm Noble Ferguson DO Departed Physician/Prov ider Office Visit -[facility] December 01, 2024 12:03pm December 01, 2024 12:21pm Noble Ferguson DO Departed Physician/Prov ider Office Visit -[facility] December 31, 2024 11:18am December 31, 2024 11:34am Noble Ferguson DO Departed Physician/Prov ider Office Visit -[facility] [place] January 27, 2025 9:48am January 27, 2025 11:24am Vernon Sewell MD Departed Physician/Prov ider Office Visit -[facility] February 02, 2025 1:05pm February 02, 2025 1:18pm Noble Ferguson DO Departed Physician/Prov ider Office Visit -[facility] February 23, 2025 1:21pm February 23, 2025 2:14pm Noble Ferguson DO Recent Diagnosis Onset Date Admit Date (HFpEF) heart failure with p reserved ejection fraction Unknown November 26, 2024 11:12am ASHD (arteriosclerotic heart disease) Unknown November 26, 2024 11:12am Chronic bronchitis Unknown November 26 11:12am Hypertension Unknown November 26, 2024 11:12am Nicotine dependence, cigarettes, in remission Un known November 26, 2024 11:12am Obesity Unknown November 26, 2024 11:12am Greater trochanteric bursitis of left hip Unknow n January 27, 2025 9:48am Greater trochanteric bursitis of right hip Unkno wn January 27, 2025 9:48am (HFpEF) heart failure with p reserved ejection fraction Unknown February 23, 2025 1:21pm ASHD (arteriosclerotic heart disease) Unknown February 23, 2025 1:21pm Chronic bronchitis Unknown February 1:21pm Chronic kidney disease Unknown February 23, 2025 1:21pm History of breast cancer Unknown er 2024 1:21pm Hypertension Unknown February 23, 2025 1:21pm Hypothyroidism Unknown February 23, 2025 1:21pm Nicotine dependence, cigarettes, in remission Un known February 23, 2025 1:21pm Obesity Unknown February 23, 2025 1:21pm Assessments Diagnosis Onset Date Resolution Status Admit Date (HFpEF) heart failure with preserved ejection fraction acute November 26, 2024 11:12am ASHD (arteriosclerotic heart disease) acute November 26, 2024 11:12am Chronic bronchitis acute November 092024 11:12am Hypertension acute November 26, 025 11:12am Nicotine dependence, cigarettes, in remission acute November 262024 11:12am Obesity acute November 26 11:12am Greater trochanteric bursiti s of left hip acute January 27 9:48am Greater trochanteric bursiti s of right hip acute January 27 9:48am (HFpEF) heart failure with preserved ejection fraction acute Feb emb2024 1:21pm ASHD (arteriosclerotic heart disease) acute February 23, 2025 1:21pm Chronic bronchitis acute 2024 1:21pm Chronic kidney disease acute Se ptember 2024 1:21pm History of breast cancer acute February 23, 2025 1:21pm Hypertension acute February 232024 1:21pm Hypothyroidism acute February 23, 2025 1:21pm Nicotine dependence, cigarettes, in remission acute er 2024 1:21pm Obesity acute February 1:21pm Plan of Treatment Author [facility] Authored February 20, 2025 7:37am This patient is stable witho ut activity related chest pain, dyspnea or lightheadedness. I instructed them to continue exercise at least 3x weekly and consume a low salt, low fat, high fiber diet. I instructed them to continue secondary prevention measures in reducing risks for recurrent events. LHC: PCI/stent RCA, 70% LCx, 70% distal LAD - 08/2018, Stress testing w/o ischemia - 11/2023, PCI/stent mid LCx - 11/2024 RHC w/ normal pressures - 11/2024 Continue Imdur, Metoprolol, Lisinopril without interruption I have instructed this patient on a low salt diet, exercise and daily weights. I have instructed them to notify the office for any on any unexpected weight gain > 3lbs and /or increased dyspnea on exertion, difficulty breathing during sleep, worsening lower extremity swelling, chest pain or lightheadedness. I have reviewed the GDMT with beta blockers, SHAHID/ARB or ARNI, MRA and a SGLT-2i. Echo: LVEF 55%, mild , normal RV size/function - 11/2023, Echo: LVEF 60%, KAREEM, normal RV size/function, RVSP 33 - 10/2024 Optimize GDMT - continue BB and SHAHID - cardiology increased Doxazosin Continue triple therapy w/ Trelegy 200 Restart TUAN as needed every 4-6 hours. PFT: mild obstructive defect, mild restrictive defect, decreased TLC and DLCO - 02/2024 - consistent w/ cardiovascular disease CTA chest: negative - 11/2023 - no findings to suggest ILD 6 min walk w/o desaturation Continue triple therapy despite minimal improvement in symptoms I have instructed this patient to consume a healthy, low-fat, low-salt diet. I have also encouraged them to continue exercise with weight loss to achieve/maintain a BMI < 30. I have instructed this patient on the correct procedure for obtaining home BP measurements: - rest for 5 minutes w/o talking. - positioned w/ feet on floor and arms supported. - average best 2/3 readings w/ goal < 135/85. - update office w/ home readings in 2 weeks. Continue Imdur, Lisinopril, Metoprolol and Doxazosin without interruption Low dose Amlodipine resulted in edema Instructed to continue abstinence. They are aware of the hazards associated with tobacco use, including but not limited to respiratory infections, vascular disease and cancers. She is not a candidate for LDCT. I have instructed this patient on a low-fat, high-fiber diet. I have also instructed them to reduce calories, portions sizes, sweet drinks and snacks. I have also recommended they exercise for 30 minutes, 3-5 times weekly. They are aware of the comorbid conditions associated with excessive weight: Diabetes, HTN, Hyperlipidemia, CAD and arthritis. Clinically euthyroid, monitor yearly TSH I instructed this patient on the benefits of adequate control of hypertension and diabetes, if appropriate. I have also instructed them to avoid use of NSAIDs due to the adverse effects on renal function. I instructed them on adequate fluid balance and to consume at least 48 oz of fluids daily. I also instructed them to monitor for an unexplained increase in weight and lower extremity edema. They have been instructed to notify the office for any changes or concerns. s/p lumpectomy followed by radiation therapy Author [facility] Authored November 26, 2024 12:3 4pm Continue triple therapy w/ T relegy 200 Restart TUAN as needed every 4-6 hours. PFT: mild obstructive defect, mild restrictive defect, decreased TLC and DLCO - 02/2024 - consistent w/ cardiovascular disease CTA chest: negative - 11/2023 - no findings to suggest ILD 6 min walk w/o desaturation Continue triple therapy despite minimal improvement in symptoms This patient is stable without activity related chest pain, dyspnea or lightheadedness. I instructed them to continue exercise at least 3x weekly and consume a low salt, low fat, high fiber diet. I instructed them to continue secondary prevention measures in reducing risks for recurrent events. LHC: PCI/stent RCA, 70% LCx, 70% distal LAD - 08/2018, Stress testing w/o ischemia - 11/2023, PCI/stent mid LCx - 11/2024 RHC w/ normal pressures - 11/2024 Continue Imdur, Metoprolol, Lisinopril without interruption I have instructed this patient on a low salt diet, exercise and daily weights. I have instructed them to notify the office for any on any unexpected weight gain > 3lbs and /or increased dyspnea on exertion, difficulty breathing during sleep, worsening lower extremity swelling, chest pain or lightheadedness. I have reviewed the GDMT with beta blockers, SHAHID/ARB or ARNI, MRA and a SGLT-2i. Echo: LVEF 55%, mild , normal RV size/function - 11/2023, Echo: LVEF 60%, KAREEM, normal RV size/function, RVSP 33 - 10/2024 Optimize GDMT - continue BB and SHAHID - cardiology increased Doxazosin I have instructed this patient to consume a healthy, low-fat, low-salt diet. I have also encouraged them to continue exercise with weight loss to achieve/maintain a BMI < 30. I have instructed this patient on the correct procedure for obtaining home BP measurements: - rest for 5 minutes w/o talking. - positioned w/ feet on floor and arms supported. - average best 2/3 readings w/ goal < 135/85. - update office w/ home readings in 2 weeks. Continue Imdur, Lisinopril, Metoprolol and Doxazosin without interruption Low dose Amlodipine resulted in edema Instructed to continue abstinence. They are aware of the hazards associated with tobacco use, including but not limited to respiratory infections, vascular disease and cancers. She is not a candidate for LDCT. I have instructed this patient on a low-fat, high-fiber diet. I have also instructed them to reduce calories, portions sizes, sweet drinks and snacks. I have also recommended they exercise for 30 minutes, 3-5 times weekly. They are aware of the comorbid conditions associated with excessive weight: Diabetes, HTN, Hyperlipidemia, CAD and arthritis. Future Tests Future scheduled test information is unavailable Pending Tests Test Name Ordered Date Scheduled Date CT chest wo con February 23, 2025 2:14pm XR hip BI w PEL1V January 26, 2025 8:17am Future Visits Future appointment information is unavailable Referrals to Other Providers Referral information is unavailable Future Procedures Future procedure information is unavailable Future Medications Future medication information is unavailable Patient Instructions Patient instructions are unavailable
--- OUTSIDE RECORDS SUMMARY | 2025-02-27 14:06 | XMS_ITS | Clinical Summary ---
Author Organization [facility] Address [address] [place] [address] Care Team Providers Care Diagnostic Imaging Manager Name Role Phone Noble Ferguson DO Primary Care Provider [phone] Allergies Active Allergy Reactions Criticality Noted Date [...] Years Completed 5, 04/28/2009 Insurance # [place] [address] MEDICARE AAR Care Teams Diagnostic Imaging Manager Relationship Specialty Start Date End Date Noble Ferguson DO PCP - General Internal Medicine 04/16/23
--- OUTSIDE RECORDS SUMMARY | 2025-02-27 14:06 | XMS_ITS | Encounter Summary ---
Author Organization [facility] Address [address] [place] [address] Phone Care Team Providers Care Color Maker Dyer Name Role Phone Noble Ferguson DO Primary Care Provider [phone] Encounter Details Date Type Department Care Team (Late st Contact Info) Description 11/30/2023 Scanned Document [facility] [address] [place] [phone] Scanning, Generic Provider Social History Tobacco Use [...] on filedocumented in this encounter Care Teams Color Maker Dyer Relationship Specialty Start Date End Date Noble Ferguson DO [address] [place] [address] PCP - General Internal Medicine 12/03/23 documented as of this encounter
--- OUTSIDE RECORDS SUMMARY | 2025-02-27 14:06 | XMS_ITS | Encounter Summary ---
Author Organization [facility] Address [address] [place] [address] Care Team Providers Care Associate Professor Of Art History Name Role Phone Noble Ferguson DO Primary Care Provider [phone] Encounter Details Date Type Department Care Team (Late st Contact Info) Description 07/02/2023 Abstract [facility] [address] [facility] [address] [place] [phone] Luis Angel Saucedo MD [address] [facility] [address] [place] [address] Social History Tobacco Use Types [...] on filedocumented in this encounter Care Teams Associate Professor Of Art History Relationship Specialty Start Date End Date Noble Ferguson DO PCP - General Internal Medicine 04/16/23 documented as of this encounter
--- OUTSIDE RECORDS SUMMARY | 2025-02-27 14:06 | XMS_ITS | Encounter Summary ---
Author Organization [facility] Address [address] [place] [address] Care Team Providers Care Water Systems Engineer Name Role Phone Noble Ferguson DO Primary Care Provider [phone] Reason for Visit * Reason Comments Med Refill Encounter Details Date Type Department Care Team (Late st Contact Info) Description 01/29/2023 Refill [facility] [address] [place] [phone] Adry Hatfield, BRAKE LINING MAKER [address] [place] [phone] Coronary artery disease, unspecified vessel or lesion type, unspecified whether angina present, unspecified whether [place] or transplanted heart Social History Tobacco Use [...] type, unspecified whether angina present, unspecified whether [place] or transplanted heart documented in this encounter Care Teams Water Systems Engineer Relationship Specialty Start Date End Date Noble Ferguson DO [address] [place] [address] PCP - General 04/10/23 documented as of this encounter
--- OUTSIDE RECORDS SUMMARY | 2025-02-27 14:06 | XMS_ITS | Encounter Summary ---
Author Organization [facility] Address [address] [place] [address] Care Team Providers Care Trash Collector Name Role Phone Noble Ferguson DO Primary Care Provider [phone] Reason for Visit * Reason Comments Med Refill Encounter Details Date Type Department Care Team (Late st Contact Info) Description 08/09/2022 Refill [facility] [address] [place] [phone] Juan F Zepeda MD [address] [place] [phone] Coronary artery disease, unspecified vessel or lesion type, unspecified whether angina present, unspecified whether [place] or transplanted heart Social History Tobacco Use [...] type, unspecified whether angina present, unspecified whether [place] or transplanted heart documented in this encounter Care Teams Trash Collector Relationship Specialty Start Date End Date Noble Ferguson DO [address] [facility] [place] [phone] PCP - General 04/10/23 documented as of this encounter
--- OUTSIDE RECORDS SUMMARY | 2025-02-27 14:06 | XMS_ITS | Encounter Summary ---
Author Organization [employer] Address [id number] [address] [place] [address] Care Team Providers Care Material Engineer Name Role Phone Noble Ferguson DO Primary Care Provider [phone] Encounter Details Date Type Department Care Team ([facility] st Contact Info) Description 11/16/2021 Orders Only [facility] [address] [place] [address] Transcribe, Orders Support User Pain [...] <enter goal here> General Yes Yanna Joe, ANIMAL KEEPER Note: Evaluation of progress towards goal: discharge [...] documented as of this encounter Care Teams Material Engineer Relationship Specialty Start Date End Date Noble Ferguson DO [address] [place] [address] PCP - General Internal Medicine 06/11/21 documented as of this encounter
--- OUTSIDE RECORDS SUMMARY | 2025-02-27 14:06 | XMS_ITS | Encounter Summary ---
Author Organization [facility] Address [address] [facility] [place] [address] Care Team Providers Care Flat Sheet Maker Name Role Phone Noble Ferguson DO Primary Care Provider [phone] Encounter Details Date Type Department Care Team (Late st Contact Info) Description 06/12/2023 Abstract [facility] [address] [facility] 150 [place] [phone] Luis Angel Saucedo MD 703 [facility] [address] [place] [address] Social History Tobacco Use Types [...] on filedocumented in this encounter Care Teams Flat Sheet Maker Relationship Specialty Start Date End Date Noble Ferguson DO PCP - General Internal Medicine 04/16/23 documented as of this encounter
--- OUTSIDE RECORDS SUMMARY | 2025-02-27 14:06 | XMS_ITS | Encounter Summary ---
Author Organization [facility] Address [address] [place] [address] Care Team Providers Care Brick Veneer Maker Name Role Phone Noble Ferguson DO Primary Care Provider [phone] Source Comments In the event this information is protected by the Federal Confidentiality of Alcohol and Drug AbusePatient Records regulations: The Federal rules restrict any use of the information to criminally investigate or prosecute any alcohol or drug abuse patient.[facility] Encounter Details Date Type Department Care Team (Late st Contact Info) Description 06/06/[address] [facility] [address] [place] [address] Provider, External Social History Tobacco Use Types [...] N ot on file 07/05/2022 Data from: [email or web address] Last address used for calculation [address] [facility] 07/05/2022 Comments No Sex and Gender [...] Report SEE NOTE 06/23/2023 3:41 PM EST [facility] Comment: Prevotella bergensis Organism identified by [...] method. RUSTY M Beta-Lactamase Neg Performed By: [employer] [address] [place] [address] Blade Groover: Paulino العراقي MD, PhD CLIA Number: [id number] Micro Specimen SPECIMEN FROM BREAST / Unknown 05/28/2023 12:55 PM EST 06/06/2023 4:45 AM EST External Provider LABORATORY Final Result Performing Organization Address [facility] Co de Phone Number [employer] [address] [place] [address] * (ABNORMAL) ORGANISM BETTYE (05/28/2023 12:55 PM EST) Culture, Organism BETTYE Result Prevotella bergensis(A) MINIMUM INHIBITORY CONCENTRATION ([place]) 06/26/2023 1:46 PM EST [facility] Comment:Susceptibility resul ts have been completed by [employer]. Beta Lactamase Negative 06/26/2023 1:46 PM EST [facility] Micro Specimen SPECIMEN FROM BREAST / Unknown 05/28/2023 12:55 PM EST 06/06/2023 4:45 AM EST External Provider LABORATORY Final Result Performing Organization Address City/[facility] Care [facility]/ZIP Co de Phone Number [facility] [address] * (ABNORMAL) ORGANISM ID ANAEROBE (05/28/2023 12:55 PM EST) Culture, Organism ID Anaerobe Prevotella bergensis(A) 06/08/2023 8:47 AM EST [facility] Micro Specimen SPECIMEN FROM BREAST / Unknown 05/28/2023 12:55 PM EST 06/06/2023 4:45 AM EST Narrative [facility] - 06/08/2023 8:47 AM EST This test was developed and its performance characteristics determined by the [facility]'s [facility] [place] ([facility] [[email or web address]]PLMI). It has not been cleared or approved by the FDA. -[facility] is regulated under CLIA as qualified to perform high-complexity testing. This test is used for clinical purposes. It should not be regarded as investigational or for research. us External Provider LABORATORY Final Result Performing Organization Address City/State/[facility] Co de Phone Number [facility] [address] documented in this encounter Visit Diagnoses Not on filedocumented in this encounter Care Teams Brick Veneer Maker Relationship Specialty Start Date End Date Noble Ferguson DO PCP - General Internal Medicine 11/09/14 documented as of this encounter
--- OUTSIDE RECORDS SUMMARY | 2025-02-27 14:06 | XMS_ITS | Clinical Summary ---
Author Organization [facility] Address [address] [place] [address] Phone Care Team Providers Care Spindle Sander Name Role Phone Noble Ferguson DO Primary Care Provider [phone] Social History Tobacco Use Types Packs/Day Years [...] COVID-19 Vaccine ( - 2023-2 5 season) 2025 Influenza Vaccine (#1) 2025 HIB Vaccines Aged [...] topic Insurance MEDICARE PART A AND B [facility] MEDICARE PART A AND B [facility] Care Teams Spindle Sander Relationship Specialty Start Date End Date Noble Ferguson DO [address] [place] [address] PCP - General Internal Medicine 12/03/23
--- OUTSIDE RECORDS SUMMARY | 2025-02-27 14:06 | XMS_ITS ---
Author Organization [facility] Address [address] [place] [address] Care Team Providers Care Celery Cutter Name Role Phone Noble Ferguson DO Primary Care Provider [phone] Active Problems Problem Noted Date Diagnosed Date CAD in [place] artery 11/21/2024 Assessment & Plan (11/22/2024 1:44 [...]
--- OUTSIDE RECORDS SUMMARY | 2025-02-27 14:06 | XMS_ITS | Encounter Summary ---
Author Organization [facility] Address [address] [place] [address] Care Team Providers Care Gleason Gear Generator Name Role Phone Noble Ferguson DO Primary Care Provider [phone] Reason for Visit * Reason Comments Med Refill Encounter Details Date Type Department Care Team (Late st Contact Info) Description 01/04/2023 Refill [facility] [address] [place] [phone] Adry Hatfield, BLIND AIDE [address] [place] [phone] Coronary artery disease, unspecified vessel or lesion type, unspecified whether angina present, unspecified whether [place] or transplanted heart Social History Tobacco Use [...] type, unspecified whether angina present, unspecified whether [place] or transplanted heart documented in this encounter Care Teams Gleason Gear Generator Relationship Specialty Start Date End Date Noble Ferguson DO [address] [facility] [place] [address] PCP - General 04/10/23 documented as of this encounter
--- OUTSIDE RECORDS SUMMARY | 2025-02-27 14:06 | XMS_ITS | Encounter Summary ---
Author Organization [facility] Address [address] [place] [address] Care Team Providers Care Assistant Professor Of Music Name Role Phone Noble Ferguson DO Primary Care Provider [phone] Reason for Visit * Reason Comments Med Refill Encounter Details Date Type Department Care Team (Late st Contact Info) Description 07/04/2023 Refill [facility] [address] [place] [phone] Juan F Zepeda MD [address] [facility] [place] [phone] Chest pain, unspecified type Social History Tobacco [...] type documented in this encounter Care Teams Assistant Professor Of Music Relationship Specialty Start Date End Date Noble Ferguson DO [address] [facility] [place] [phone] PCP - General 04/10/23 documented as of this encounter
--- OUTSIDE RECORDS SUMMARY | 2025-02-27 14:06 | XMS_ITS | Encounter Summary ---
Author Organization [facility] Address [address] [place] [address] Care Team Providers Care Mold Clamper Name Role Phone Noble Ferguson DO Primary Care Provider [phone] Encounter Details Date Type Department Care Team (Late st Contact Info) Description 05/17/2023 External Result Encounter [facility] External Department Unsolicited Luis Angel Saucedo MD [address] [address] Social History Tobacco Use Types [...] AM EST) 05/17/2023 11:1 7 AM EST [facility] - 05/18/2023 12:02 PM EST [facility] Main [address] [address] Electrocardiograph Report Signed Patient: Nora Parnell MR#: [id number] : 1940 Acct:[id number] Age/Sex: 83 / F ADM Date: 05/17/23 [...] By: DIANA Electronically Signed By:LARY RECINOS MD [facility] Transcribed By: MUS Signed By Lary Recinos MD, [facility] 05/17/23 1519 Procedure Note Lary Recinos MD - 05/18/2023 [facility] [place] [address] Electrocardiograph Report Signed Patient: Nora Parnell LMR#: [id number] : 8Acct:[id number] Age/Sex: 83 / FADM Date: 05/17/23 Loc: [...] Referred By: DIANA Electronically Signed By:LARY [facility]OS [facility] Transcribed By: ANI Signed By Lary Recinos MD, [facility] 05/17/23 8849 us Luis Angel Andrews MD ECG ORDERABLES Final Result Performing Organization Address [facility]/State/[facility] Co de Phone Number [address] [address], documented in this encounter Visit Diagnoses Not on filedocumented in this encounter Care Teams Mold Clamper Relationship Specialty Start Date End Date Noble Ferguson DO PCP - General Internal Medicine 04/16/23 documented as of this encounter
--- OUTSIDE RECORDS SUMMARY | 2025-02-27 14:06 | XMS_ITS | Clinical Summary ---
Author Organization [employer] Address [id number] [address] [place] [address] Care Team Providers Care Collet Making Machine Operator Name Role Phone Noble Ferguson Primary Care Provider [phone] Allergies Active Allergy Reactions Criticality Noted Date [...] every 30 (thirty) days. Active vitamin C/biotin ([id number] , VIT C-BIOTIN, ORAL) Take 2 tablets [...] Risk Screening 2003 COVID-19 Vaccine (4 - 2024-2 6 season) 2025 03/07/2021, 09/07/2020, 08/16/2020 Influenza Vaccine 02/09/2025 03/06/2022, , 03/27/2017, Additional history exists Goals Goal Patient Goal Type Associated Problems Recent Progress Patient-Stated? Author <enter goal here> General Yes Yanna Joe LSW Note: Evaluation of progress towards goal: discharge home vs SNF. Medical Devices Not on file Insurance MEDICARE [facility] Advance Directives * Full Code (Latest Code Status on File) Date Activated Date Inactivated Comments 11/16/2021 2:53 AM 11/21/2021 7:25 PM Care Teams Collet Making Machine Operator Relationship Specialty Start Date End Date Noble Ferguson DO [address] [place] [address] PCP - General Internal Medicine 06/11/21
--- OUTSIDE RECORDS SUMMARY | 2025-02-27 14:06 | XMS_ITS | Encounter Summary ---
Author Organization [facility] Address [address] [place] [address] Care Team Providers Care Wharf Hand Name Role Phone Noble Ferguson DO Primary Care Provider [phone] Reason for Visit * Reason Comments Med Refill Encounter Details Date Type Department Care Team (Late st Contact Info) Description 02/01/2023 Refill [facility] Clinic [address] [place] [phone] Juan F Zepeda MD [address] [facility] [place] [phone] Primary hypertension Social History Tobacco Use Types [...] hypertension documented in this encounter Care Teams Wharf Hand Relationship Specialty Start Date End Date Noble Ferguson DO [address] [place] [address] PCP - General 04/10/23 documented as of this encounter
--- OUTSIDE RECORDS SUMMARY | 2025-02-27 14:06 | XMS_ITS | Clinical Summary ---
Author Organization [facility] Address [address] [place] [address] Care Team Providers Care Passenger Service Supervisor Name Role Phone Noble Ferguson DO Primary Care Provider [phone] Allergies Active Allergy Reactions Criticality Noted Date Comments Penicillins Anaphylaxis,Hives,Ot her,U nknown High 11/12/2014 Sulfa (Sulfonamide Antibiotics) Hives,Other,Rash,Unknown Low 11/12/2014 Medications levothyroxine (Synthroid, Levoxyl) 88 mcg tablet 1 (one) time each day at the same time. Active aspirin 81 mg EC tablet Take 1 tablet by mouth in the morning. Active fluticasone-umecl idin-vilanter 200-62.5-25 mcg blister with device INHALE 1 PUFF ONCE DAILY 3 Active temazepam (Restoril) 30 mg capsule TAKE ONE CAPSULE BY MOUTH ONCE DAILY AT BEDTIME 1 Active cyanocobalamin (Vitamin B-12) 1,000 mcg/mL oral liquid 1 (one) time. 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 180 tablet 3 5 08/28/19 26 Active albuterol 90 mcg/actuation inhaler Inhale 1 puff in the morning, afternoon, and at bedtime. Active metoprolol succinate XL (Toprol-XL) 25 mg 24 hr tabletIndications :Coronary artery disease involving nikolski coronary artery of nikolski heart without angina pectoris TAKE 1/2 TABLET BY MOUTH DAILY DIRECTED 15 tablet 10 5 Active doxazosin (Cardura) 4 mg tabletIndications :Primary hypertension Take 2 tablets (8 mg) by mouth at bedtime. 180 tablet 5 12/17/19 Active atorvastatin (Lipitor) 40 mg tabletIndications :Coronary artery disease, unspecified vessel or lesion type, unspecified whether angina present, unspecified whether nikolski or transplanted heart TAKE 1 TABLET (40 MG) BY MOUTH IN THE MORNING. 30 tablet 5 12/26/19 Active isosorbide mononitrate ER (Imdur) 120 mg 24 hr tabletIndications :Coronary artery disease involving nikolski coronary artery of nikolski heart without angina pectoris,Primary hypertension Take 1 tablet (120 mg) by mouth in the morning. Do not crush or chew. 90 tablet 5 12/30/19 Active pantoprazole (ProtoNix) 20 mg EC tabletIndications :Coronary artery disease involving nikolski coronary artery of nikolski heart without angina pectoris Take 1 tablet (20 mg) by mouth before breakfast. Do not crush, chew, or split. 90 tablet 12/30/19 Active isosorbide mononitrate ER (Imdur) 30 mg 24 hr tabletIndications :Chest pain, unspecified type Take 1 tablet (30 mg) by mouth in the morning. Do not crush or chew. To be taken with a 60mg tablet for a total of 90mg daily 90 tablet 5 01/10/20 Active isosorbide mononitrate ER (Imdur) 60 mg 24 hr tabletIndications :Chest pain, unspecified type Take 1 tablet (60 mg) by mouth in the morning. Do not crush or chew. To be taking w a 30 mg tablet for a total of 90mg daily 90 tablet 5 01/10/20 Active clopidogrel (Plavix) 75 mg tabletIndications :CAD in nikolski artery Take 1 tablet (75 mg) by mouth in the morning. 90 tablet 5 01/24/20 Active Active Problems Problem Noted Date Diagnosed Date CAD in nikolski artery 11/21/2024 Assessment & Plan (11/22/2024 1:44 [...] Type Department Care Team Description 01/23/[address] [address] Aura Candelario MA CAD in nikolski artery 01/08/[address] 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 [address] [place] [phone] Adry Hatfield CNP Coronary artery disease, unspecified vessel or lesion type, unspecified whether angina present, unspecified whether nikolski or transplanted heart (Primary Dx) 12/16/[address] [address] Aura Candelario MA Primary hypertension from Last 3 Months Family History Medical [...] drink = 0.6 oz pur e alcohol) [facility] Utilities Answer Date Recorded In the past 12 months has e [employer], gas, oil, or water [employer] threatened to shut off services in your [...] any time in the past 12 m [facility], were you homeless or living in a [...] Vaccines (1 of 2) 1988 COVID-19 Vaccine (4 - season) 2025 03/07/2021, 09/07/2020, 08/16/2020 Influenza Vaccine (#1) 2025 [...] this topic Medical Devices Implanted Type Area Tower Watchman Device Identifier Shelf Expiration Date Model / Serial / Lot Stent,Marylin Mr 2.25 X 24 - [id number] Implanted:Qty : 1 on 11/21/2024 by Juan F Zepeda MD at [facility] Drug Eluting Stent Left: [employer] [id number] 2026 [id number] / / [id number] Insurance MEDICARE AARP Advance Directives * Full Code (Latest Code Status on File) Date Activated Date Inactivated Comments 11/21/2024 9:51 PM 11/22/2024 4:43 PM Care Teams Passenger Service Supervisor Relationship Specialty Start Date End Date Noble Ferguson DO [address] [place] [id number] PCP - General 04/10/23
--- OUTSIDE RECORDS SUMMARY | 2025-02-27 14:07 | XMS_ITS | Clinical Summary ---
Author Organization [facility] Address [address] [place] [id number] Care Team Providers Care Electronics Research Engineer Name Role Phone Noble Ferguson DO Primary Care Provider [phone] Allergies Active Allergy Reactions Criticality Noted Date [...] original vaccine, a ge 12+ yr, monovalent (Dandelion - PURPLE TOP) 03/07/2021,09/07/2020,08/16/2020 influenza (HD-IIV3) vaccine, [...] N ot on file 07/05/2022 Data from: [email or web address]/. Last address used for calculation [address] [...] - 99 mg/dL 04/14/2019 11:25 AM EST [facility] Comment: The [place] Diabetes Association (ADA) provides guidance for cutoff [...] Standards of Medical Care in Diabetes 2016, [place] [employer]. Diabetes Care. 2016.39(Suppl 1). BUN 21 7 - 21 mg/dL 04/14/2019 11:25 AM [facility] Creatinine 0.92 0.58 - 0.96 mg/dL 04/14/2019 11:25 AM [facility] Sodium 142 136 - 144 mmol/L 04/14/2019 11:25 AM [facility] Potassium 4.5 3.7 - 5.1 mmol/L 04/14/2019 11:25 AM [facility] Chloride 107(H) 97 - 105 mmol/L 04/14/2019 11:25 AM [facility] CO2 21(L) 22 - 30 mmol/L 04/14/2019 11:25 AM [facility] Anion Gap 14 9 - 18 mmol/L 04/14/2019 11:25 AM [facility] Calcium 9.7 8.5 - 10.2 mg/dL 04/14/2019 11:25 AM [facility] eGFR- >60 04/14/2019 11:25 AM [facility] eGFR-All Other Races 59 . 04/14/2019 11:25 AM [facility] Comment: eGFR (Estimated GFR) Units of measure: [...] Samuel Pepe DO LABORATORY Final Res ult [facility] [address] [place] [address] [facility] [address] [place], [place] from Last 3 Months or Most Recently Relevant to Health Maintenance Insurance [facility] MEDICARE Care Teams Electronics Research Engineer Relationship Specialty Start Date End Date Noble Ferguson DO PCP - General Internal Medicine 11/09/14
--- OUTSIDE RECORDS SUMMARY | 2025-02-27 14:10 | XMS_ITS | CCD ---
Author Organization [facility] Care Team Providers Care Manufacturing Job Titles Name Role Phone PHYSICIAN, DEFAULT Admitting Unavailable PHYSICIAN, DEFAULT Attending Unavailable UNKNOWN, PROVIDER Admitting Unavailable UNKNOWN, PROVIDER Attending Unavailable SELF, REFERRED Referring Unavailable SELF, REFERRED Primary Care Unavailable Ball DONoble E Primary Care Provider Gayle Wade Unavailable [...] TAMLYN ., RITU Admitting Unavailable BALL, DR NEWSMOE Primary Care Unavailable TAMLYN ., RITU Attending [...] RITU Attending Unavailable RITU TAYLOR Admitting Unavailable ABIGAIL, DR NEWSOME Primary Care Unavailable DO Noble Hayes Primary Care Provider MD Luis Angel Saucedo Attending Provider [phone] DO Noble Hayes Primary Care Provider MD Luis Angel Saucedo Attending Provider BrownDO Nika Emergency Provider DO Noble Hayes Primary Care Provider DO Jim Clay Admit Provider DO Jim Clay Attending Provider Lewis Luis Angel Admitting Unavailable Saucedo, Luis Angel Attending Unavailable Noble Hayes Primary Care Unavailable Saucedo, Luis Angel Admitting Unavailable Lewis, Luis Angel Attending Unavailable Noble Hayes Primary Care Unavailable Jim Clay Admitting Unavailable Jim Clay Attending Unavailable Noble Hayes Primary Care Unavailable Saucedo, Luis Angel Admitting Unavailable Saucedo, Luis Angel Attending Unavailable Noble Hayes Primary Care Unavailable Noble Hayes DO Primary Care Provider Danyel Randle DO Attending Provider Ly Sexton CMA Attending Provider UnavailNoble Barahona DO Attending Provider Leander Juan MD Attending Provider [phone] Bala Zepeda MD, V Attending Provider STEFANIE HUTCHINS Attending Unavailable BALA ZEPEDA Attending Unavailable BALA ZEPEDA Attending Unavailable BALA ZEPEDA Attending Unavailable TABBYANI, HUANG Admitting Unavailable DUKE, BILLIE Attending Unavailable BALA ZEPEDA Referring Unavailable SPENCER, SAMLOLA Referring Unavailable Noble Hayes DO Primary Care Provider Noble Hayes DO Attending Provider Ly Sexton CMA Attending Provider UnavailBobby Alvarado MD Attending Provider [phone] Noble Hayes DO Primary Care Provider Noble Hayes DO Attending Provider [phone] Noble Hayes DO Primary Care Provider Noble Hayes DO Attending Provider Allergies Allergy Classification Reported Allergen(s) Allergy Type Date of Onset Reaction(s) Facility penicillAMINE (3 sources) penicillAMINE Drug Allergy 08-10-19 24 [facility] Penicillins (antibiotic) (3 sources) Penicillins Drug Allergy 08-10-19 24 [facility] Sulfonamides (antibiotic) (6 sources) Sulfonamides (Antibiotic) Drug Allergy 08-10-19 24 [facility] Sulfur (3 sources) Sulfur Drug Allergy 08-10-19 24 [facility] (20 sources) Penicillins; Translations: [PENICILLINS] Drug allergy (disorder) 04-28-20 14 [facility] Repository Comment on above: Onset Date: 05/15/20 14 (20 sources) Sulfonamides (Antibiotic); Translations: [SULFA (SULFONAMIDE ANTIBIOTICS)] Drug allergy (disorder) 06-11-18 94 [facility] Repository Comment on above: Onset Date: 05/15/20 14 (17 sources) Penicillins Drug Allergy 05-15-20 14 Unknown [facility] (17 sources) Sulfonamides (Antibiotic) Drug Allergy 05-15-20 14 Unknown [facility] (20 sources) guaiFENesin Drug Allergy Unknown [facility] Other (20 sources) penicillAMINE Drug Allergy 08-10-19 24 Unknown, [facility] (20 sources) Sulfacetamide / Sulfur Drug Allergy Unknown [facility] Other (15 sources) Dextromethorphan Drug Allergy 07-22-19 14 Unknown [facility] Other (15 sources) guaiFENesin Drug Allergy 07-22-19 14 Unknown [facility] Other (1 source) Penicillin Drug Allergy Unknown [facility] Other (15 sources) Sulf-10 Drug allergy Unknown [facility] Other (1 source) patient allergy list reviewed by nurse or physicia Propensity to adverse reactions 05-09-20 13 Comment:Done [facility] Other (1 source) Allergies Reconciled Propensity to adverse reactions Unknown [facility] Other (20 sources) Sulfacetamide; Translations: [sulfacetamide] Drug Allergy 08-10-19 [facility] (20 sources) Sulfur; Translations: [sulfur] Drug Allergy 08-10-19 [facility] (1 source) penicillAMINE Drug Allergy 11-30-19 [facility] (1 source) Penicillins Drug allergy (disorder) 11-30-19 [facility] (1 source) Sulfonamides (Antibiotic) Drug allergy (disorder) 11-30-19 [facility] Repository Medications Current Medications Medication Drug Class(es) [...] a day for 30 days Nov, Active [id number] 200 actuat albuterol 0.09 mg/actuat metered dose inhaler (20 sources) beta2-Adrenergic Agonist Start: 02-19-2024 take 1 puff(s) by inhalation every four to six hours as needed Albuterol Sulfate 90 mcg/actuation HFA aerosol inhaler Active 2 PUFF INHALATION EVERY 4-6 HOURS as needed for Shortness Of Breath 8.5 February 19, 2024 12:49pm Complies with drug therapy Start: 05-17-2023 End: 02-19-2024 Albuterol Sulfate 90 [...] MG PO Daily April 24, 2023 1:00am Complies with drug therapy take 1 tablet by [facility] every twenty-four hours aspirin, enteric coated (ASPIRIN, [...] MG PO Daily April 24, 2023 1:00am Complies with drug therapy Comment on above: Take 40 mg by mouth once daily. Xltcxa-Babcytyp-Zmq C-E-Herbal (15 sources) Start: 3 take 2 tablets by mouth once daily Rtiidc-Svarebse-Iys C-E-Herbal Active 2 TAB PO Daily after supper April 24, 2023 1:00am Start: 04-24-2023 take 2 tablets by mo [facility] once daily Zvipuy-Euztvtgm-Iod C-E-Herbal Active 2 TAB PO Daily after supper April 24, 2023 12:00am Ocbnlz-Uimpysxv-Uan C-E-Herbal 1,250 mcg-50 mg -67.5 mg-15 mg Tablet,Chewable (12 sources) Start: 04-24-2023 take 2 tablets by mouth once daily Bjfpyf-Jkvlxmux-Rmx C-E-Herbal 1,250 mcg-50 mg -67.5 mg-15 mg Tablet,Chewable Active 2 TAB PO Daily after supper April 24, 2023 1:00am Complies with drug therapy Start: 04-24-2023 take 2 tablets by [facility] once daily Start: 04-24-2023 take 2 tablets by [facility] once daily Hditwu-Sdyssykp-Ftq C-E-Herbal 1,250 mcg-50 mg -67.5 mg-15 mg Tablet,Chewable Active 2 TAB PO Daily after supper April 24, 2023 1:00am Start: 04-24-2023 take 2 tablets by [facility] once daily Ggagul-Snbafxai-Xug C-E-Herbal 1,250 mcg-50 mg -67.5 mg-15 mg [...] TAB PO Daily April 24, 2023 1:00am Complies with drug therapy Calcium-Vitamin D 500 MG (20 sources) [facility] Calcium-Vitamin D 500 MG 1 tablet with f ood Orally Twice a day Active clopidogrel 75 mg oral tablet (4 sources) P2Y12 Platelet Inhibitor Start: 11-23-2024 take 1 tablet by mouth once daily Clopidogrel 75 mg tablet Active 75 MG PO Daily November 23, 2024 12:00am Complies with drug therapy doxazosin 4 mg oral tablet (20 sources) alpha-Adrenergic Melanie Start: 02-23-2025 take 1 tablet by mouth once daily Doxazosin 4 mg tablet Active 4 MG PO Daily February 23, 2025 12:00am Complies with drug therapy Start: 11-23-2024 End: 02-23-2025 take 2 tablets by mouth once daily at bedtime Doxazosin 4 mg tablet Discontinued 8 MG PO Daily at bedtime 60 November 23, 2024 3:39pm February 23, 2025 1:29pm Start: 08-22-2024 End: 11-23-2024 take 3 mg [...] Active Start: 08-10-2022 take 1 capsule by [facility] twice daily Doxycycline Hyclate 100 MG 1 capsule Orally twice daily for 7 days Aug, Active Fiber (20 sources) Fiber - as direc katia Orally Active Hnqnbfmbfxl-Jpanduhxn-Giwzqn er (20 sources) Start: 10-29-2024 Xqtdmtrponm-Nulwvxuum-Aeplkz er (Trelegy Ellipta) 200-62.5-25 mcg blister with device Active 1 INH INHALATION Daily 60 October 29, 2024 12:00am Complies with drug therapy Start: 10-29-2024 Start: 10-29-2024 Fluticasone-Um eclidin-Vilanter (Trelegy Ellipta) 200-62.5-25 mcg blister with device Active 1 INH INHALATION Daily 60 October 29, 2024 12:00am Start: 04-24-2023 End: 10-29-2024 Xngsujovtpk-Ysjlbipmk-Yvdfqq er (Trelegy Ellipta) 200-62.5-25 mcg Blister With [...] 2023 12:00am inulin 2000 mg chewable tablet (20 sources) Start: 04-24-2023 take 1 tablet by mouth twice daily Inulin (Fiber Gummies) 2 gram Tablet,Chewable Active 2 GM PO Twice daily April 24, 2023 1:00am Complies with drug therapy inulin (FIBER MMIES ORAL) Take by mouth. 0 Active Comment on above: Take by mouth. 24 hr isosorbide mononitrate 30 mg extended release oral tablet (20 sources) Nitrate Vasodilator Start: take 1 tablet by mouth every twenty-four hours Isosorbide Mononitrate 30 mg tablet extended release 24 hr Active MG PO January 27, 2025 12:00am Complies with drug therapy Start: 01-27-2025 take 1 tablet by eveline th every twenty-four hours Isosorbide Mononitrate 60 mg tablet extended release 24 hr Active MG PO January 27, 2025 12:00am Complies with drug therapy Start: 12-30-2024 End: 02-23-2025 take 1 tablet by mouth once daily in the morning, then take 4 tablets by mouth every twenty-four hours Isosorbide Mononitrate 120 mg tablet extended release 24 hr Discontinued 30 MG PO Daily December 30, 2024 7:58pm February 23, 2025 1:44pm take 30mg in the morning; take 60+30mg to EQUAL 90mg Start: 03-20-2024 End: 12-30-2024 take 1 tablet [...] mg oral tablet (20 sources) l-Thyroxine Start: End: take 1 tablet by mouth once daily Levothyroxine 88 mcg tablet Active 0 .ROUTE .COMPLEX December 24, 2024 10:08pm TAKE ONE TABLET BY MOUTH ONCE DAILY ON AN EMPTY STOMACH Complies with drug therapy Start: 01-29-2024 take 1 tablet by eveline [...] Active 20 MG PO Twice daily March 20, 2024 12:00am Complies with drug therapy Start: 03-19-2024 End: 03-20-2024 take 1 tablet [...] succinate 25 mg extended release oral tablet (19 sources) beta-Adrenergic Melanie Start: 12-01-2023 take 2 tablets by mouth once daily Metoprolol Succinate 25 mg Tablet Extended Release 24 Hr Active 12.5 MG PO Daily December 01, 2023 12:00am Complies with drug therapy Start: 12-01-2023 take 12.5 mg by mout h once daily Metoprolol Succinate Active 12.5 MG PO Daily December 01, 2023 12:00am pantoprazole 20 mg delayed release oral tablet (4 sources) Proton Pump Inhibitor Start: 12-30-2024 take 1 tablet by mouth once daily Pantoprazole 20 mg tablet,delayed release (DR/EC) Active 20 MG PO Daily December 30, 2024 12:00am Complies with drug therapy trelegy ellipta 200-62.5-25 mcg/act aerosol powder breath [...] IM every month May 17, 2023 1:00am Complies with drug therapy Start: 05-17-2023 inject 1000 ug by in [...] once daily. azithromycin 250 mg oral tablet (6 sources) Macrolide Antimicrobial Start: 10-06-2024 End: 11-24-2024 Azithromycin 250 mg tablet Discontinued 250 MG PO .COMPLEX 6 5 October 06, 2024 12:00am November 24, 2024 [...] mg tablet Discontinued 20 MG PO Daily 30 November 19, 2024 12:00am November 24, 2024 11:00am Start: 03-20-2024 End: 05-27-2024 take 1 tablet by mouth twice daily Furosemide 20 mg tablet Discontinued 20 MG PO Twice daily March 20, 2024 12:00am May 27, 2024 4:20pm Start: 01-01-2024 End: 02-19-2024 take 1 tablet by mouth twice daily Furosemide 20 mg tablet Discontinued 20 MG PO Twice daily January [...] RINSING. ondansetron 4 mg disintegrating oral tablet (5 sources) Serotonin-3 Receptor Antagonist Start: 10-08-2024 End: 11-23-2024 take 1 tablet by mouth every eight hours as needed for nausea and vomiting Ondansetron 4 mg tablet,disintegrati ng Discontinued 4 MG PO Every 8 hours as needed for nausea and vomiting 10 October 08, 2024 12:00am November 23, 2024 3:40pm spironolactone 25 mg oral tablet (19 sources) Aldosterone Antagonist Start: 12-01-2023 End: 02-19-2024 take 1 tablet by mouth once daily Spironolactone 25 mg Tablet Discontinued 25 MG PO Daily December 01, 2023 12:00am February 19, 2024 12:45pm temazepam 30 mg oral capsule (20 sources) Benzodiazepine Start: 02-01-2023 End: 01-22-2025 take 1 capsule by mouth once daily [...] at bedtime. torsemide 20 mg oral tablet (20 sources) Loop Diuretic Start: 11-19-19 End: 11-30-19 take 1 tablet by mouth once daily in the morning Torsemide 20 mg tablet Discontinued 20 MG PO Every morning 12 15November 19, 2023 12:00am November 30, 2023 3:03pm Triamcinolone (20 sources) Corticosteroid Start: 12-30-19 Start: 12-29-2020 Kenalog -40 mg Dec, 40 mg Start: 11-27-2019 Start: 11-27-2019 Kenalog -40 mg Nov, 40 mg Problems Active Problems Problem Classification Problem Date Documented Da te Episodic/Chronic Acute bronchitis (8 sources) Acute bronchitis; Translations: [Acute bronchitis, unspecified] [...] disease (20 sources) Atherosclerotic heart disease of [place] coronary artery with unstable angina pectoris; Translations: [...] Episodic Hypertension with complications and secondary hypertension (8 sources) Chronic kidney disease due to hypertension; [...] pathological fracture] Chronic Other aftercare (1 source) termination clerk (current) use of aspirin; Translations: [CORRECTION (CURRENT) USE OF ASPIRIN] Onset: 09-03-2018 Episodic Other aftercare (2 sources) Long-term current use of drug therapy; Translations: [Other [facility]p (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] Episodic Other circulatory disease [...] [Necrotizing fasciitis] Episodic Other connective tissue disease (12 sources) Trochanteric bursitis; Translations: [Trochanteric bursitis, left hip] 01-27-2025 Episodic Other diseases of veins and lymphatics [...] Onset: 09-03-2018 Episodic Other lower respiratory disease (15 sources) Dyspnea; Translations: [Other forms of dyspnea] Onset: 04-16-2018 02-27-2024 Episodic Other lower respiratory disease (1 source) Multiple nodules of lung; Translations: [Other nonspecific abnormal finding of lung field] 02-23-2025 Episodic Other nervous system disorders (18 sources) [...] Translations: [Pain in right hip] Episodic Other non-traumatic joint disorders (3 sources) Hip pain; Translations: [Pain in right hip] 01-26-2025 Episodic Other nutritional; endocrine; and metabolic disorders (20 sources) Obesity; Translations: [Obesity, unspecified] 02-19-2024 Chronic [...] to health] 05-15-2023 Episodic Residual codes; unclassified (20 sources) Edema; Translations: [Edema, unspecified] 11-19-2023 Episodic [...] 11-28-2019 Episodic Other aftercare (1 source) Other mcfp (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; Translations: [OTH DIETARY AID CURRENT DRUG THERAPY] Onset: 01-27-2022 Episodic Other [...] Test Name Value Interpretation Reference Range Facility [facility] 01-08-2025 36 Patient called stati ng since isosorbide was increased from 90mg to 120mg daily she's had LE edema. No increased SOB. Said her BP has been good. Any recommendations? She wanted to know if she can go back down to the 90mg daily? Please advise. Thanks. [facility] Follow-Upon 12-29-2024 Follow-Up [id number] Clari Gibbs 1940 F Date Provider Department Center 12/29/2024 BALA MORGAN [facility] Family History Problem Relation Age of Onset No Known Problems Mother No Known Problems Father Hypertension Brother Family Status - Relation Status Age at Mother Father Brother Level of Service:44549 CO OFFICE/OUTPATIENT ESTABLISHED MOD MDM 30 MIN Normal [facility] 30on 11-22-2024 30 The patient is Moder ately Stable - Low risk of patient condition declining or worsening The patient's goals for the shift include comfort The clinical goals for the shift include VSS, safety Normal [facility] 30 The patient is Moder ately Stable - Low risk of patient condition declining or worsening The patient's goals for the shift include rest, comfort The clinical goals for the shift include vss Normal [facility] APOLIPOPROTEIN B-100on 11-22 Magnesium [Mass/Vol] 49 mg/dL Low 60-117 [facility] Comment on above: Result Comment: REFE RENCE [...] atherosclerotic cardiovascular disease in adults. Performed By: [employer] [address] [place] [address] Office Machine Inspector: Paulino العراقي MD, PhD CLIA Number: [id number] Performed By: #### L [id number] #### [facility] ([facility]) [address] [place] [address] BASIC METABOLIC PANELon 11-09 Anion gap [Moles/Vol] 10 mmol/L Normal 7-20 [facility] Comment on above: Performed By: #### L [id number] #### [facility]) [address] [place] [address] Calcium [Mass/Vol] 8.5 mg/dL Low 8.6-10.[address] [facility] Comment on above: Performed By: #### L [id number] #### [facility] [address] [place] [address] Chloride [Moles/Vol] 109 mmol/L High 98-107 [facility] Comment on above: Performed By: #### L [id number] #### [facility] ([facility]) [address] [place] [address] CO2 [Moles/Vol] 26 mmol/L Normal 21-31 [facility] Comment on above: Performed By: #### L [id number] #### [facility] ([facility]) [address] [place] [address] Creatinine [Mass/Vol] 0.98 mg/dL Normal 0.60-1.20 [facility] Comment on above: Performed By: #### L [id number] #### [facility] ([facility]) [address] [place] [address] GLOMERULAR FILTRATION RATE ML/MIN/1.73 SQ M.PREDICTED 56.2 mL/min/1.73m*2 Low >60.0 [facility] Comment on above: Result Comment: [facility]???s estimated glomerular filtration rate (eGFR) will no [...] individuals. Performed By: #### L [id number] #### [facility] ([facility]) [address] [place] [address] Glucose [Mass/Vol] 115 mg/dL High 70-[address] [facility] Comment on above: Performed By: #### L [id number] #### [facility] ([facility]) [address] [place] [address] Potassium [Moles/Vol] 4.0 mmol/L Normal 3.5-5.1 [facility] Comment on above: Performed By: #### L [id number] #### [facility] ([facility]) [address] [place] [address] Sodium [Moles/Vol] 141 mmol/L Normal 136-[address] [facility] Comment on above: Performed By: #### L [id number] #### [facility] ([facility]) [address] [place] [address] Urea nitrogen [Mass/Vol] 23 mg/dL Normal 7-25 [facility] Comment on above: Performed By: #### L [id number] #### [facility] ([facility]) [address] [address] UREA NITROGEN/CREATININE (MASS RATIO) IN SER/PLAS 23.5 Normal [facility] Comment on above: Performed By: #### L [id number] #### [facility] ([facility]) [address] [place] [address] CBCon 11-22-2024 Erythrocyte distribution width (RBC) [Ratio] 13.6 % Normal 11.5-15.0 [facility] Comment on above: Performed By: #### L [id number] #### [facility] ([facility]) [address] [place] [address] ERYTHROCYTE MEAN CORPUSCULAR HEMOGLOBIN CONCENTRATION (G/DL) BY AUTOMATED 33.0 g/dL Normal 32.0-35.0 [facility] Comment on above: Performed By: #### L [id number] #### [facility] ([facility]) [address] [place] [address] Hematocrit (Bld) [Volume fraction] 31.8 % Low 36.0-45.0 [facility] Comment on above: Performed By: #### L [id number] #### [facility] ([facility]) [address] [place] [place] [address] Hemoglobin (Bld) [Mass/Vol] 10.5 g/dL Low 12.0-15.0 [facility] Comment on above: Performed By: #### L [id number] #### [facility] ([facility]) [address] [address] MCH (RBC) [Entitic mass] 30.0 pg Normal 27.0-33.0 [facility] Comment on above: Performed By: #### L [id number] #### [facility] ([facility]) [address] [place] [address] MCV (RBC) [Entitic vol] 90.9 fL Normal 82.0-98.0 [facility] Comment on above: Performed By: #### L [id number] #### [facility] ([facility]) [address] [place] [address] PLATELETS (10*3/UL) IN BLOOD AUTOMATED COUNT 163 10*3/uL Normal 150-400 [facility] Comment on above: Performed By: #### L [id number] #### [facility] ([facility]) [address] [place] [address] RBC (Bld) [#/Vol] 3.50 10*6/uL Low 3.80-5.00 [facility] Comment on above: Performed By: #### L [id number] #### [facility] ([facility]) [address] [place] [address] WBC (Bld) [#/Vol] 7.46 10*3/uL Normal 4.00-10.60 [facility] Comment on above: Performed By: #### L [id number] #### [facility] ([facility]) [address] [place] [address] LIPID PANELon 11-22-2024 CHOL/HDL 2.2 mg/dL Normal [facility] Comment on above: Performed By: #### L [id number] ####[facility] ([facility])[address] [place] [address] Cholesterol [Mass/Vol] 91 mg/dL Low 120-200 [facility] Comment on above: Performed By: #### L [id number] ####[facility] ([facility])[address] [place] [address] Magnesium [Mass/Vol] 106 mg/dL Normal <150 [facility] Comment on above: Result Comment: TRIG LYCERIDE REFERENCE RANGE: 20 YEARS AND OLDER CARDIOVASCULAR RISK LESS THAN 150 mg/dL LOW RISK 150 TO 199 mg/dL BORDERLINE RISK 200 mg/dL AND GREATER HIGH RISK Performed By: #### L [id number] ####[facility] ([facility])[address] [place] [address] Magnesium [Mass/Vol] 29 mg/dL Normal 0-160 [facility] Comment on above: Performed By: #### L [id number] ####[facility] ([facility])[address] [place] [address] Magnesium [Mass/Vol] 41 mg/dL Normal 23-92 [facility] Comment on above: Performed By: #### L [id number] ####[facility] ([facility])[address] [place] [address] NON HDL CHOL. (LDL+VLDL) 50 Normal [facility] Comment on above: Performed By: #### L [id number] ####[facility] ([facility])[address] [place] [address] TOTAL VLDL-C 21 mg/dL Normal 0-40 [facility] Comment on above: Performed By: #### L [id number] ####[facility] ([facility])[address] [place] [address] NURSNOTEon 11-22-2024 NURSNOTE Pt discharged with belongings including AVS with family Normal [facility] Orders Onlyon 11-22-2024 Orders Only [id number] Clari Gibbs L 1940 F Date Provider Department Center 11/22/2024 [id number] [place] [facility] Family History Problem Relation Age of Onset No Known Problems Mother No Known Problems Father Hypertension Brother Family Status - Relation Status Age at Mother Father Brother Normal [facility] BASIC METABOLIC PANELon 11-09 Anion gap [Moles/Vol] 12 mmol/L Normal 7-20 [facility] Comment on above: Performed By: #### L [id number] ####[facility] ([facility])[address] [place] [address] Calcium [Mass/Vol] 8.9 mg/dL Normal 8.6-10.[address] [facility] Comment on above: Performed By: #### L [id number] ####[facility] ([facility])[address] [place] [address] Chloride [Moles/Vol] 108 mmol/L High 98-107 [facility] Comment on above: Performed By: #### L [id number] ####[facility] ([facility])[address] [place] [address] CO2 [Moles/Vol] 23 mmol/L Normal 21-31 [facility] Comment on above: Performed By: #### L [id number] ####[facility] ([facility])[address] [place] [address] Creatinine [Mass/Vol] 0.91 mg/dL Normal 0.60-1.20 [facility] Comment on above: Performed By: #### L [id number] ####[facility] ([facility])[address] [place] [address] GLOMERULAR FILTRATION RATE ML/MIN/1.73 SQ M.PREDICTED 61.4 mL/min/1.73m*2 Normal >60.0 [facility] Comment on above: Result Comment: [facility]???s estimated glomerular filtration rate (eGFR) will no [...] of individuals. Performed By: #### L [id number] ####[facility] ([facility])[address] [place] [address] Glucose [Mass/Vol] 113 mg/dL High 70-[address] [facility] Comment on above: Performed By: #### L [id number] ####[facility] ([facility])[address] [place] [address] Potassium [Moles/Vol] 4.2 mmol/L Normal 3.5-5.1 [facility] Comment on above: Performed By: #### L [id number] ####[facility] ([facility])[address] [place] [address] Sodium [Moles/Vol] 139 mmol/L Normal 136-[address] [facility] Comment on above: Performed By: #### L [id number] ####[facility] ([facility])[address] [place] [address] Urea nitrogen [Mass/Vol] 22 mg/dL Normal 7-25 [facility] Comment on above: Performed By: #### L [id number] ####[facility] ([facility])[address] [place] [address] UREA NITROGEN/CREATININE (MASS RATIO) IN SER/PLAS 24.2 Normal [facility] Comment on above: Performed By: #### L [id number] ####[facility] ([facility])[address] [place] [address] CBCon 11-21-2024 Erythrocyte distribution width (RBC) [Ratio] 13.6 % Normal 11.5-15.0 [facility] Comment on above: Performed By: #### L [id number] #### [facility] ([facility]) [address] [place] [address] ERYTHROCYTE MEAN CORPUSCULAR HEMOGLOBIN CONCENTRATION (G/DL) BY AUTOMATED 32.0 g/dL Normal 32.0-35.0 [facility] Comment on above: Performed By: #### L [id number] #### [facility] ([facility]) [address] [place] [address] Hematocrit (Bld) [Volume fraction] 35.3 % Low 36.0-45.0 [facility] Comment on above: Performed By: #### L [id number] #### [facility] ([facility]) [address] [place] [address] Hemoglobin (Bld) [Mass/Vol] 11.3 g/dL Low 12.0-15.0 [facility] Comment on above: Performed By: #### L [id number] #### [facility] ([facility]) [address] [place] [address] MCH (RBC) [Entitic mass] 29.7 pg Normal 27.0-33.0 [facility] Comment on above: Performed By: #### L [id number] #### [facility] ([facility]) [address] [place] [address] MCV (RBC) [Entitic vol] 92.7 fL Normal 82.0-98.0 [facility] Comment on above: Performed By: #### L [id number] #### [facility] ([facility]) [address] [place] [address] PLATELETS (10*3/UL) IN BLOOD AUTOMATED COUNT 186 10*3/uL Normal 150-400 [facility] Comment on above: Performed By: #### L [id number] #### [facility] ([facility]) [address] [place] [address] RBC (Bld) [#/Vol] 3.81 10*6/uL Normal 3.80-5.00 [facility] Comment on above: Performed By: #### L [id number] #### [facility] ([facility]) [address] [place] [address] WBC (Bld) [#/Vol] 11.10 10*3/uL High 4.00-10.60 [facility] Comment on above: Performed By: #### L [id number] #### [facility] ([facility]) [address] [place] [address] HPon 11-21-2024 History Of Present Illness Nora [...] has a past medical history of Cancer ([facility]), COPD (chronic obstructive pulmonary disease) ([facility]), Coronary artery disease, and Hypertension. Surgical History [...] Shortness of breath Coronary artery disease involving [place] coronary artery of akut[place] heart with other form of an (more content not included)... Normal [facility] Basophils Auto (Bld) [#/Vol] on 11-14-2024 Basophils (Bld) [#/Vol] Automated basophil count 0.0-0.1 [facility] Basophils (Bld) [#/Vol] 0.0 10 3/uL 0.0-0.1 [facility] Basophils/100 WBC Auto (Bld) on 11-14-2024 Basophils/100 WBC (Bld) Automated basophil % 0.2-2.0 [facility] Basophils/100 WBC (Bld) 0.4 % 0.2-2.0 [facility] Eosinophils/100 WBC Auto (Bl d)on 11-14-2024 Eosinophils/100 WBC (Bld) Automated eosinophil % 0.9-7.0 [facility] Eosinophils/100 WBC (Bld) 4.6 % 0.9-7.0 [facility] Erythrocyte distribution wid th Auto (RBC) [Ratio]on 11-14-2024 Erythrocyte distribution width (RBC) [Ratio] Erythrocyte distribution width [Ratio] by Automated count 11.0-15.0 [facility] Erythrocyte distribution width (RBC) [Ratio] 13.4 % 11.0-15.0 [facility] Estimated glomerular filtrat ion rate (GFR) non- Americanon 11-14-2024 GFR/1.73 sq M.predicted among non-blacks MDRD (S/P/Bld) [Vol rate/Area] Estimated glomerular filtration rate (GFR) non- Low >=60 mL/min/1.7 3m 2 [facility] GFR/1.73 sq M.predicted among non-blacks MDRD (S/P/Bld) [Vol rate/Area] 48 mL/min/{1.73_m2} Low >=60 mL/min/1.7 3m 2 [facility] Hematocrit Auto (Bld) [Volum e fraction]on 11-14-2024 Hematocrit (Bld) [Volume fraction] Hematocrit [Volume Fraction] of Blood by Automated count 36.0-48.0 [facility] Hematocrit (Bld) [Volume fraction] 37.3 % 36.0-48.0 [facility] Hemoglobin [Mass/volume] in Bloodon 11-14-2024 Hemoglobin (Bld) [Mass/Vol] Hemoglobin [Mass/volume] in Blood 12.0-16.0 [facility] Hemoglobin (Bld) [Mass/Vol] 12.3 g/dL 12.0-16.0 [facility] Laboratory - Chemistry and C hemistry - challengeon 11-14-2024 Calcium [Mass/Vol] 9.5 mg/dL 8.5-10.1 [facility] Chloride [Moles/Vol] 107 mmol/L 98-107 [facility] CO2 [Moles/Vol] 27.0 mmol/L 21.0-32.0 [facility] Creatinine [Mass/Vol] 1.08 mg/dL High 0.55-1.02 [facility] GFR/1.73 sq M.predicted MDRD (S/P/Bld) [Vol rate/Area] 58 mL/min/{1.73_m2} Low >=60 mL/min/1.7 3m 2 [facility] Glucose [Mass/Vol] 139 mg/dL High 74-106 [facility] Potassium [Moles/Vol] 4.0 mmol/L 3.5-5.1 [facility] Sodium [Moles/Vol] 143 mmol/L 136-145 [facility] Urea nitrogen [Mass/Vol] 24.0 mg/dL High 7.0-18.0 [facility] Urea nitrogen/Creatinine [Mass ratio] 22.2 mg/mg [facility] Laboratory - Hematology and Cell countson 11-14-2024 Immature granulocytes/100 WBC (Bld) 0.3 % 0.0-0.5 [facility] Leukocytes [#/volume] correc katia for nucleated erythrocytes in Blood by Automated counon 11-14-2024 WBC corrected for nucl RBC Auto (Bld) [#/Vol] Leukocytes [#/volume] corrected for nucleated erythrocytes in Blood by Automated coun 4.0-11.0 [facility] WBC corrected for nucl RBC Auto (Bld) [#/Vol] 6.8 10 3/uL 4.0-11.0 [facility] Lymphocytes Auto (Bld) [#/Vo l]on 11-14-2024 Lymphocytes (Bld) [#/Vol] Lymphocytes [#/volume] in Blood by Automated count 1.2-3.8 [facility] Lymphocytes (Bld) [#/Vol] 1.2 10 3/uL 1.2-3.8 [facility] Lymphocytes/100 WBC Auto (Bl d)on 11-14-2024 Lymphocytes/100 WBC (Bld) Lymphocytes/100 leukocytes in Blood by Automated count Low 20.5-60.0 [facility] Lymphocytes/100 WBC (Bld) 18.2 % Low 20.5-60.0 [facility] MCH Auto (RBC) [Entitic mass ]on 11-14-2024 MCH (RBC) [Entitic mass] MCH [Entitic mass] by Automated count 26.7-34.0 [facility] MCH (RBC) [Entitic mass] 30.2 pg 26.7-34.0 [facility] MCHC Auto (RBC) [Mass/Vol]on 11-14-2024 MCHC (RBC) [Mass/Vol] MCHC [Mass/volume] by Automated count 29.9-35.2 [facility] MCHC (RBC) [Mass/Vol] 33.0 g/dL 29.9-35.2 [facility] MCV Auto (RBC) [Entitic vol] on 11-14-2024 MCV (RBC) [Entitic vol] MCV [Entitic volume] by Automated count 81.0-99.0 [facility] MCV (RBC) [Entitic vol] 91.6 fL 81.0-99.0 [facility] Monocytes Auto (Bld) [#/Vol] on 11-14-2024 Monocytes (Bld) [#/Vol] Automated blood monocyte count 0.3-0.8 [facility] Monocytes (Bld) [#/Vol] 0.7 10 3/uL 0.3-0.8 [facility] Monocytes/100 WBC Auto (Bld) on 11-14-2024 Monocytes/100 WBC (Bld) Automated monocyte % 1.7-12.0 [facility] Monocytes/100 WBC (Bld) 10.4 % 1.7-12.0 [facility] Neutrophils Auto (Bld) [#/Vo l]on 11-14-2024 Neutrophils (Bld) [#/Vol] Neutrophils [#/volume] in Blood by Automated count 1.4-6.5 [facility] Neutrophils (Bld) [#/Vol] 4.5 10 3/uL 1.4-6.5 [facility] Neutrophils/100 WBC Auto (Bl d)on 11-14-2024 Neutrophils/100 WBC (Bld) Automated neutrophil % 43.0-75.0 [facility] Neutrophils/100 WBC (Bld) 66.1 % 43.0-75.0 [facility] No Panel Informationon 11-14 Eosinophils # (Auto) 0.3 10 3/uL 0.0-0.7 [facility] Immature Granulocyte # (Auto) 0.02 10 3/uL 0.00-0.03 [facility] Orders Onlyon 11-14-2024 Orders Only [id number] Clari Gibbs L 1940 F Date Provider Department Center 11/14/2024 BALA MORGAN [facility] Family History Problem Relation Age of Onset No Known Problems Mother No Known Problems Father Hypertension Brother Family Status - Relation Status Age at Mother Father Brother Normal [facility] Platelet mean volume Auto (B ld) [Entitic vol]on 11-14-2024 Platelet mean volume (Bld) [Entitic vol] Platelet mean volume [Entitic volume] in Blood by Automated count 9.5-13.5 [facility] Platelet mean volume (Bld) [Entitic vol] 11.7 fL 9.5-13.5 [facility] Platelets Auto (Bld) [#/Vol] on 11-14-2024 Platelets (Bld) [#/Vol] Platelets [#/volume] in Blood by Automated count 150-450 [facility] Platelets (Bld) [#/Vol] 184 10 3/uL 150-450 [facility] RBC Auto (Bld) [#/Vol]on RBC (Bld) [#/Vol] Erythrocytes [#/volu me] in Blood by Automated count Low 4.20-5.40 [facility] RBC (Bld) [#/Vol] 4.07 10 6/uL Low 4.20-5.40 [facility] Serum or plasma anion gap de terminationon 11-14-2024 Anion gap [Moles/Vol] Serum or plasma an ion gap determination [facility] Anion gap [Moles/Vol] 13.0 mmol/L [facility] Orders Onlyon 11-13-2024 Orders Only [id number] MeaganestebanjoeClari ty L 1940 F Date Provider Department Center 11/13/2024 CherylBereniceHaiderRICHARDANDREWA [facility] Family History Problem Relation Age of Onset No Known Problems Mother No Known Problems Father Hypertension Brother Family Status - Relation Status Age at Mother Father Brother [facility] 3610-15-2024 34 Patient called me roland marquez [...] know if we could move her up. [facility] 10-13-2024 34 Patient called c/o S OB. She could barely speak on the phone. Says she's been to [facility] twice the past 2 weeks [...] Nora and he is ok with this. [facility] Telephoneon 10-13-2024 Telephone [phone] Clari Gibbs ty L 1940 F Date Provider Department Center 10/13/2024 Mike8-VIRI MAZARIEGOS CARD [facility] Family History Problem Relation Age of Onset No Known Problems Mother No Known Problems Father Hypertension Brother Family Status - Relation Status Age at Mother Father Brother Normal [facility] Basophils Auto (Bld) [#/Vol] on 10-09-2024 Basophils (Bld) [#/Vol] Automated basophil count 0.0-0.1 [facility] [place] Basophils (Bld) [#/Vol] 0.0 10 3/uL 0.0-0.1 [facility] Basophils/100 WBC Auto (Bld) on 10-09-2024 Basophils/100 WBC (Bld) Automated basophil % 0.2-2.0 [facility] Basophils/100 WBC (Bld) 0.3 % 0.2-2.0 [facility] Eosinophils/100 WBC Auto (Bl d)on 10-09-2024 Eosinophils/100 WBC (Bld) Automated eosinophil % 0.9-7.0 [facility] Eosinophils/100 WBC (Bld) 1.8 % 0.9-7.0 [facility] Erythrocyte distribution wid th Auto (RBC) [Ratio]on 10-09-2024 Erythrocyte distribution width (RBC) [Ratio] Erythrocyte distribution width [Ratio] by Automated count 11.0-15.0 [facility] Erythrocyte distribution width (RBC) [Ratio] 12.7 % 11.0-15.0 [facility] Estimated glomerular filtrat ion rate (GFR) non- Americanon 10-09-2024 GFR/1.73 sq M.predicted among non-blacks MDRD (S/P/Bld) [Vol rate/Area] 48 mL/min/{1.73_m2} Low >=60 mL/min/1.7 3m 2 [facility] Fibrin D-dimer [Presence] in Platelet poor plasma by Latex agglutinationon 10-09-2024 Fibrin D-dimer LA Ql (PPP) Fibrin D-dimer [Presence] in Platelet poor plasma by Latex agglutination Critically high <=0.59 [facility] Comment on above: RESULTS CALLED TO DR . HUSAINIncreases in D-Dimer concentration observed withthromboembolic events can [...] (PPP) 1.17 mg/L FEU Critically high <=0.59 [facility] Comment on above: RESULTS CALLED TO DR Redd Clayases in D-Dimer concentration observed withthromboembolic events can [...] on 10-09-2024 Globulin (S) [Mass/Vol] 4.3 g/dL [facility] Hematocrit Auto (Bld) [Volum e fraction]on 10-09-2024 Hematocrit (Bld) [Volume fraction] Hematocrit [Volume Fraction] of Blood by Automated count 36.0-48.0 [facility] Hematocrit (Bld) [Volume fraction] 36.7 % 36.0-48.0 [facility] Hemoglobin [Mass/volume] in Bloodon 10-09-2024 Hemoglobin (Bld) [Mass/Vol] Hemoglobin [Mass/volume] in Blood 12.0-16.0 [facility] Hemoglobin (Bld) [Mass/Vol] 12.0 g/dL 12.0-16.0 [facility] Laboratory - Chemistry and C hemistry - challengeon 10-09-2024 Albumin [Mass/Vol] 3.0 g/dL Low 3.4-5.0 [facility] ALP [Catalytic activity/Vol] 95 U/L 46-116 [facility] ALT [Catalytic activity/Vol] 28 U/L 14-59 [facility] AST [Catalytic activity/Vol] 25 U/L 15-37 [facility] Bilirubin [Mass/Vol] 0.5 mg/dL 0.2-1.0 [facility] Calcium [Mass/Vol] 8.7 mg/dL 8.5-10.1 [facility] Chloride [Moles/Vol] 110 mmol/L High 98-107 [facility] CO2 [Moles/Vol] 27.5 mmol/L 21.0-32.0 [facility] Creatinine [Mass/Vol] 1.09 mg/dL High 0.55-1.02 [facility] GFR/1.73 sq M.predicted MDRD (S/P/Bld) [Vol rate/Area] 58 mL/min/{1.73_m2} Low >=60 mL/min/1.7 3m 2 [facility] Glucose [Mass/Vol] 117 mg/dL High 74-106 [facility] Magnesium [Mass/Vol] 1.9 mg/dL 1.8-2.4 [facility] Natriuretic peptide B (Bld) [Mass/Vol] 1102.0 pg/mL <=1800.0 [facility] Potassium [Moles/Vol] 4.4 mmol/L 3.5-5.1 [facility] Protein [Mass/Vol] 7.3 g/dL 6.4-8.2 [facility] Sodium [Moles/Vol] 148 mmol/L High 136-145 [facility] Urea nitrogen [Mass/Vol] 22.0 mg/dL High 7.0-18.0 [facility] Urea nitrogen/Creatinine [Mass ratio] 20.2 mg/mg [facility] Laboratory - Hematology and Cell countson 10-09-2024 ESR (Bld) [Velocity] 120 mm/h High <=30 [facility] Immature granulocytes/100 WBC (Bld) 0.4 % 0.0-0.5 [facility] Leukocytes [#/volume] correc katia for nucleated erythrocytes in Blood by Automated counon 10-09-2024 WBC corrected for nucl RBC Auto (Bld) [#/Vol] Leukocytes [#/volume] corrected for nucleated erythrocytes in Blood by Automated coun High 4.0-11.0 [facility] WBC corrected for nucl RBC Auto (Bld) [#/Vol] 12.1 10 3/uL High 4.0-11.0 [facility] Lymphocytes Auto (Bld) [#/Vo l]on 10-09-2024 Lymphocytes (Bld) [#/Vol] Lymphocytes [#/volume] in Blood by Automated count Low 1.2-3.8 [facility] Lymphocytes (Bld) [#/Vol] 0.9 10 3/uL Low 1.2-3.8 [facility] Lymphocytes/100 WBC Auto (Bl d)on 10-09-2024 Lymphocytes/100 WBC (Bld) Lymphocytes/100 leukocytes in Blood by Automated count Low 20.5-60.0 [facility] Lymphocytes/100 WBC (Bld) 7.5 % Low 20.5-60.0 [facility] MCH Auto (RBC) [Entitic mass ]on 10-09-2024 MCH (RBC) [Entitic mass] MCH [Entitic mass] by Automated count 26.7-34.0 [facility] MCH (RBC) [Entitic mass] 29.9 pg 26.7-34.0 [facility] MCHC Auto (RBC) [Mass/Vol]on 10-09-2024 MCHC (RBC) [Mass/Vol] MCHC [Mass/volume] by Automated count 29.9-35.2 [facility] MCHC (RBC) [Mass/Vol] 32.7 g/dL 29.9-35.2 [facility] MCV Auto (RBC) [Entitic vol] on 10-09-2024 MCV (RBC) [Entitic vol] MCV [Entitic volume] by Automated count 81.0-99.0 [facility] MCV (RBC) [Entitic vol] 91.3 fL 81.0-99.0 [facility] Monocytes Auto (Bld) [#/Vol] on 10-09-2024 Monocytes (Bld) [#/Vol] Automated blood monocyte count High 0.3-0.8 [facility] Monocytes (Bld) [#/Vol] 1.1 10 3/uL High 0.3-0.8 [facility] Monocytes/100 WBC Auto (Bld) on 10-09-2024 Monocytes/100 WBC (Bld) Automated monocyte % 1.7-12.0 [facility] Monocytes/100 WBC (Bld) 8.9 % 1.7-12.0 [facility] Neutrophils Auto (Bld) [#/Vo l]on 10-09-2024 Neutrophils (Bld) [#/Vol] Neutrophils [#/volume] in Blood by Automated count High 1.4-6.5 [facility] Neutrophils (Bld) [#/Vol] 9.8 10 3/uL High 1.4-6.5 [facility] Neutrophils/100 WBC Auto (Bl d)on 10-09-2024 Neutrophils/100 WBC (Bld) Automated neutrophil % High 43.0-75.0 [facility] Neutrophils/100 WBC (Bld) 81.1 % High 43.0-75.0 [facility] No Panel Informationon 10-09 Eosinophils # (Auto) 0.2 10 3/uL 0.0-0.7 [facility] Immature Granulocyte # (Auto) 0.05 10 3/uL High 0.00-0.03 [facility] Troponin I High Sensitivity 8.0 pg/mL 4.0-51.3 [facility] Comment on above: CUT-OFF POINTS HAVE BEEN [...] Partial Pressure CO2 38.8 mm[Hg] Low 40.0-52.0 [facility] Venous Blood pH 7.429 7.330-7.43 0 [facility] Platelet mean volume Auto (B ld) [Entitic vol]on 10-09-2024 Platelet mean volume (Bld) [Entitic vol] Platelet mean volume [Entitic volume] in Blood by Automated count 9.5-13.5 [facility] Platelet mean volume (Bld) [Entitic vol] 10.4 fL 9.5-13.5 [facility] Platelets Auto (Bld) [#/Vol] on 10-09-2024 Platelets (Bld) [#/Vol] Platelets [#/volume] in Blood by Automated count 150-450 [facility] Platelets (Bld) [#/Vol] 240 10 3/uL 150-450 [facility] RBC Auto (Bld) [#/Vol]on RBC (Bld) [#/Vol] Erythrocytes [#/volu me] in Blood by Automated count Low 4.20-5.40 [facility] RBC (Bld) [#/Vol] 4.02 10 6/uL Low 4.20-5.40 [facility] Serum or plasma albumin/glob ulin mass ratioon 10-09-2024 Albumin/Globulin [Mass ratio] 0.7 {ratio} [facility] Serum or plasma anion gap de terminationon 10-09-2024 Anion gap [Moles/Vol] 14.9 mmol/L [facility] Basophils Auto (Bld) [#/Vol] on 10-04-2024 Basophils (Bld) [#/Vol] Automated basophil count 0.0-0.1 [facility] Basophils (Bld) [#/Vol] 0.0 10 3/uL 0.0-0.1 [facility] Basophils/100 WBC Auto (Bld) on 10-04-2024 Basophils/100 WBC (Bld) Automated basophil % 0.2-2.0 [facility] Basophils/100 WBC (Bld) 0.2 % 0.2-2.0 [facility] Eosinophils/100 WBC Auto (Bl d)on 10-04-2024 Eosinophils/100 WBC (Bld) Automated eosinophil % 0.9-7.0 [facility] Eosinophils/100 WBC (Bld) 1.5 % 0.9-7.0 [facility] Erythrocyte distribution wid th Auto (RBC) [Ratio]on 10-04-2024 Erythrocyte distribution width (RBC) [Ratio] Erythrocyte distribution width [Ratio] by Automated count 11.0-15.0 [facility] Erythrocyte distribution width (RBC) [Ratio] 13.1 % 11.0-15.0 [facility] Estimated glomerular filtrat ion rate (GFR) non- Americanon 10-04-2024 GFR/1.73 sq M.predicted among non-blacks MDRD (S/P/Bld) [Vol rate/Area] Estimated glomerular filtration rate (GFR) non- Low >=60 mL/min/1.7 3m 2 [facility] GFR/1.73 sq M.predicted among non-blacks MDRD (S/P/Bld) [Vol rate/Area] 36 mL/min/{1.73_m2} Low >=60 mL/min/1.7 3m 2 [facility] Hematocrit Auto (Bld) [Volum e fraction]on 10-04-2024 Hematocrit (Bld) [Volume fraction] Hematocrit [Volume Fraction] of Blood by Automated count 36.0-48.0 [facility] Hematocrit (Bld) [Volume fraction] 38.3 % 36.0-48.0 [facility] Hemoglobin [Mass/volume] in Bloodon 10-04-2024 Hemoglobin (Bld) [Mass/Vol] Hemoglobin [Mass/volume] in Blood 12.0-16.0 [facility] Hemoglobin (Bld) [Mass/Vol] 12.4 g/dL 12.0-16.0 [facility] Laboratory - Chemistry and C hemistry - challengeon 10-04-2024 Calcium [Mass/Vol] 9.3 mg/dL 8.5-10.1 [facility] Chloride [Moles/Vol] 103 mmol/L 98-107 [facility] CO2 [Moles/Vol] 28.5 mmol/L 21.0-32.0 [facility] Creatinine [Mass/Vol] 1.38 mg/dL High 0.55-1.02 [facility] GFR/1.73 sq M.predicted MDRD (S/P/Bld) [Vol rate/Area] 44 mL/min/{1.73_m2} Low >=60 mL/min/1.7 3m 2 [facility] Glucose [Mass/Vol] 145 mg/dL High 74-106 [facility] Natriuretic peptide B (Bld) [Mass/Vol] 496.0 pg/mL <=1800.0 [facility] Potassium [Moles/Vol] 4.2 mmol/L 3.5-5.1 [facility] Sodium [Moles/Vol] 141 mmol/L 136-145 [facility] Urea nitrogen [Mass/Vol] 24.0 mg/dL High 7.0-18.0 [facility] Urea nitrogen/Creatinine [Mass ratio] 17.4 mg/mg [facility] Laboratory - Hematology and Cell countson 10-04-2024 Immature granulocytes/100 WBC (Bld) 0.3 % 0.0-0.5 [facility] - Microbiology an d Antimicrobial susceptibilityon 10-04-2024 S. pyogenes Ag Ql (Unsp spec) Negative [facility] SARS-CoV-2 (COVID-19) RNA TOMMY+probe Ql (Unsp spec) Negative NEGATIVE [facility] Comment on above: This test has not [...] in Blood by Automated coun High 4.0-11.0 [facility] WBC corrected for nucl RBC Auto (Bld) [#/Vol] 12.3 10 3/uL High 4.0-11.0 [facility] Lymphocytes Auto (Bld) [#/Vo l]on 10-04-2024 Lymphocytes (Bld) [#/Vol] Lymphocytes [#/volume] in Blood by Automated count 1.2-3.8 [facility] Lymphocytes (Bld) [#/Vol] 1.3 10 3/uL 1.2-3.8 [facility] Lymphocytes/100 WBC Auto (Bl d)on 10-04-2024 Lymphocytes/100 WBC (Bld) Lymphocytes/100 leukocytes in Blood by Automated count Low 20.5-60.0 [facility] Lymphocytes/100 WBC (Bld) 10.7 % Low 20.5-60.0 [facility] MCH Auto (RBC) [Entitic mass ]on 10-04-2024 MCH (RBC) [Entitic mass] MCH [Entitic mass] by Automated count 26.7-34.0 [facility] MCH (RBC) [Entitic mass] 30.0 pg 26.7-34.0 [facility] MCHC Auto (RBC) [Mass/Vol]on 10-04-2024 MCHC (RBC) [Mass/Vol] MCHC [Mass/volume] by Automated count 29.9-35.2 [facility] MCHC (RBC) [Mass/Vol] 32.4 g/dL 29.9-35.2 [facility] MCV Auto (RBC) [Entitic vol] on 10-04-2024 MCV (RBC) [Entitic vol] MCV [Entitic volume] by Automated count 81.0-99.0 [facility] MCV (RBC) [Entitic vol] 92.7 fL 81.0-99.0 [facility] Monocytes Auto (Bld) [#/Vol] on 10-04-2024 Monocytes (Bld) [#/Vol] Automated blood monocyte count High 0.3-0.8 [facility] Monocytes (Bld) [#/Vol] 1.4 10 3/uL High 0.3-0.8 [facility] Monocytes/100 WBC Auto (Bld) on 10-04-2024 Monocytes/100 WBC (Bld) Automated monocyte % 1.7-12.0 [facility] Monocytes/100 WBC (Bld) 11.5 % 1.7-12.0 [facility] Neutrophils Auto (Bld) [#/Vo l]on 10-04-2024 Neutrophils (Bld) [#/Vol] Neutrophils [#/volume] in Blood by Automated count High 1.4-6.5 [facility] Neutrophils (Bld) [#/Vol] 9.3 10 3/uL High 1.4-6.5 [facility] Neutrophils/100 WBC Auto (Bl d)on 10-04-2024 Neutrophils/100 WBC (Bld) Automated neutrophil % High 43.0-75.0 [facility] Neutrophils/100 WBC (Bld) 75.8 % High 43.0-75.0 [facility] No Panel Informationon 10-04 Bedside Influenza Type A Antigen Negative [facility] Comment on above: Negative for Flu A p rotein antigen. Infection due to Flu Acannot be ruled out. Flu A antigen in the sample may bebelow the detection limit of the test. Bedside Influenza Type B Antigen Negative [facility] Comment on above: Negative for Flu B p rotein antigen. Infection due to Flu Bcannot be ruled out. Flu B antigen in the sample may bebelow the detection limit of the test. Eosinophils # (Auto) 0.2 10 3/uL 0.0-0.7 [facility] Immature Granulocyte # (Auto) 0.04 10 3/uL High 0.00-0.03 [facility] Troponin I High Sensitivity 5.2 pg/mL 4.0-51.3 [facility] Comment on above: CUT-OFF POINTS HAVE BEEN [...] volume] in Blood by Automated count 9.5-13.5 [facility] Platelet mean volume (Bld) [Entitic vol] 11.5 fL 9.5-13.5 [facility] Platelets Auto (Bld) [#/Vol] on 10-04-2024 Platelets (Bld) [#/Vol] Platelets [#/volume] in Blood by Automated count 150-450 [facility] Platelets (Bld) [#/Vol] 186 10 3/uL 150-450 [facility] RBC Auto (Bld) [#/Vol]on RBC (Bld) [#/Vol] Erythrocytes [#/volu me] in Blood by Automated count Low 4.20-5.40 [facility] RBC (Bld) [#/Vol] 4.13 10 6/uL Low 4.20-5.40 [facility] Serum or plasma anion gap de terminationon 10-04-2024 Anion gap [Moles/Vol] Serum or plasma an ion gap determination [facility] Anion gap [Moles/Vol] 13.7 mmol/L [facility] Office Visiton 09-26-2024 Follow-up visit [id number] Clari Gibbs ty L 1940 F Date Provider Department Center 09/26/2024 BALA MORGAN EMIL Jacques Family History Problem Relation Age of Onset No Known Problems Mother No Known Problems Father Hypertension Brother Family Status - Relation Status Age at Mother Father Brother Level of Service:06880 CO OFFICE/OUTPATIENT ESTABLISHED HIGH MDM 40 MIN Normal [facility] Office Visiton 07-21-2024 Follow-up visit [id number] Clari Gibbs ty L 1940 F Date Provider Department Center 07/21/2024 BALA MORGAN Family History Problem Relation Age of Onset No Known Problems Mother No Known Problems Father Family Status - Relation Status Age at Mother Father Level of Service:59620 CO OFFICE/OUTPATIENT ESTABLISHED MOD MDM 30 MIN Normal [facility] Basophils Auto (Bld) [#/Vol] on 05-27-2024 Basophils (Bld) [#/Vol] Automated basophil count 0.0-0.1 [facility] [place] Basophils/100 WBC Auto (Bld) on 05-27-2024 Basophils/100 WBC (Bld) Automated basophil % 0.2-2.0 [facility] Cholesterol in LDL Calc [Mas s/Vol]on 05-27-2024 Cholesterol in LDL [Mass/Vol] Cholesterol in LDL [Mass/volume] in Serum or Plasma by calculation [facility] Comment on above: <100 mg/dl [id number] 0-129 mg/dl NEAR OR ABOVE [id number] mg/dl BORDERLINE [id number] mg/dl HIGH>190 mg/dl VERY HIGH Cholesterol in VLDL Calc [Ma ss/Vol]on 05-27-2024 Cholesterol in VLDL [Mass/Vol] Cholesterol in VLDL [Mass/volume] in Serum or Plasma by calculation [facility] Eosinophils/100 WBC Auto (Bl d)on 05-27-2024 Eosinophils/100 WBC (Bld) Automated eosinophil % 0.9-7.0 [facility] Erythrocyte distribution wid th Auto (RBC) [Ratio]on 05-27-2024 Erythrocyte distribution width (RBC) [Ratio] Erythrocyte distribution width [Ratio] by Automated count 11.0-15.0 [facility] Estimated glomerular filtrat ion rate (GFR) non- Americanon 05-27-2024 GFR/1.73 sq M.predicted among non-blacks MDRD (S/P/Bld) [Vol rate/Area] Estimated glomerular filtration rate (GFR) non- Low >=60 mL/min/1.7 3m 2 [facility] Globulin Calc (S) [Mass/Vol] on 05-27-2024 Globulin (S) [Mass/Vol] Serum globulin measurement by calculation (mass/volume) [facility] Hematocrit Auto (Bld) [Volum e fraction]on 05-27-2024 Hematocrit (Bld) [Volume fraction] Hematocrit [Volume Fraction] of Blood by Automated count 36.0-48.0 [facility] Hemoglobin [Mass/volume] in Bloodon 05-27-2024 Hemoglobin (Bld) [Mass/Vol] Hemoglobin [Mass/volume] in Blood 12.0-16.0 [facility] Laboratory - Chemistry and C hemistry - challengeon 05-27-2024 Albumin [Mass/Vol] 3.4 g/dL 3.4-5.0 [facility] ALP [Catalytic activity/Vol] 103 U/L 46-116 [facility] ALT [Catalytic activity/Vol] 24 U/L 14-59 [facility] AST [Catalytic activity/Vol] 25 U/L 15-37 [facility] Bilirubin [Mass/Vol] 0.3 mg/dL 0.2-1.0 [facility] Calcium [Mass/Vol] 9.1 mg/dL 8.5-10.1 [facility] Chloride [Moles/Vol] 108 mmol/L High 98-107 [facility] Cholesterol [Mass/Vol] 122 mg/dL <=200 [facility] Cholesterol in HDL [Mass/Vol] 58 mg/dL 40-60 [facility] Comment on above: > or =60 mg/dl - LOW CARDIOVASCULAR RISK<40 mg/dl - HIGH CARDIOVASCULAR RISK CO2 [Moles/Vol] 26.2 mmol/L 21.0-32.0 [facility] Creatinine [Mass/Vol] 1.16 mg/dL High 0.55-1.02 [facility] GFR/1.73 sq M.predicted MDRD (S/P/Bld) [Vol rate/Area] 54 mL/min/{1.73_m2} Low >=60 mL/min/1.7 3m 2 [facility] Glucose [Mass/Vol] 105 mg/dL 74-106 [facility] Potassium [Moles/Vol] 4.2 mmol/L 3.5-5.1 [facility] Protein [Mass/Vol] 7.0 g/dL 6.4-8.2 [facility] Sodium [Moles/Vol] 142 mmol/L 136-145 [facility] Triglyceride [Mass/Vol] 154 mg/dL High <=150 [facility] TSH Qn 0.650 m[IU]/L 0.358-3.74 0 [facility] Urea nitrogen [Mass/Vol] 15.0 mg/dL 7.0-18.0 [facility] Urea nitrogen/Creatinine [Mass ratio] 12.9 mg/mg [facility] Laboratory - Hematology and Cell countson 05-27-2024 Immature granulocytes/100 WBC (Bld) 0.2 % 0.0-0.5 [facility] Leukocytes [#/volume] correc katia for nucleated erythrocytes in Blood by Automated counon 05-27-2024 WBC corrected for nucl RBC Auto (Bld) [#/Vol] Leukocytes [#/volume] corrected for nucleated erythrocytes in Blood by Automated coun 4.0-11.0 [facility] Lymphocytes Auto (Bld) [#/Vo l]on 05-27-2024 Lymphocytes (Bld) [#/Vol] Lymphocytes [#/volume] in Blood by Automated count 1.2-3.8 [facility] Lymphocytes/100 WBC Auto (Bl d)on 05-27-2024 Lymphocytes/100 WBC (Bld) Lymphocytes/100 leukocytes in Blood by Automated count Low 20.5-60.0 [facility] MCH Auto (RBC) [Entitic mass ]on 05-27-2024 MCH (RBC) [Entitic mass] MCH [Entitic mass] by Automated count 26.7-34.0 [facility] MCHC Auto (RBC) [Mass/Vol]on 05-27-2024 MCHC (RBC) [Mass/Vol] MCHC [Mass/volume] by Automated count 29.9-35.2 [facility] MCV Auto (RBC) [Entitic vol] on 05-27-2024 MCV (RBC) [Entitic vol] MCV [Entitic volume] by Automated count 81.0-99.0 [facility] Monocytes Auto (Bld) [#/Vol] on 05-27-2024 Monocytes (Bld) [#/Vol] Automated blood monocyte count High 0.3-0.8 [facility] Monocytes/100 WBC Auto (Bld) on 05-27-2024 Monocytes/100 WBC (Bld) Automated monocyte % 1.7-12.0 [facility] Neutrophils Auto (Bld) [#/Vo l]on 05-27-2024 Neutrophils (Bld) [#/Vol] Neutrophils [#/volume] in Blood by Automated count 1.4-6.5 [facility] Neutrophils/100 WBC Auto (Bl d)on 05-27-2024 Neutrophils/100 WBC (Bld) Automated neutrophil % 43.0-75.0 [facility] No Panel Informationon 05-27 Eosinophils # (Auto) 0.2 10 3/uL 0.0-0.7 [facility] Immature Granulocyte # (Auto) 0.02 10 3/uL 0.00-0.03 [facility] Platelet mean volume Auto (B ld) [Entitic vol]on 05-27-2024 Platelet mean volume (Bld) [Entitic vol] Platelet mean volume [Entitic volume] in Blood by Automated count 9.5-13.5 [facility] Platelets Auto (Bld) [#/Vol] on 05-27-2024 Platelets (Bld) [#/Vol] Platelets [#/volume] in Blood by Automated count 150-450 [facility] RBC Auto (Bld) [#/Vol]on RBC (Bld) [#/Vol] Erythrocytes [#/volu me] in Blood by Automated count Low 4.20-5.40 [facility] Serum or plasma albumin/glob ulin mass ratioon 05-27-2024 Albumin/Globulin [Mass ratio] Serum or plasma albumin/globulin mass ratio [facility] Serum or plasma anion gap de terminationon 05-27-2024 Anion gap [Moles/Vol] Serum or plasma an ion gap determination [facility] Serum or plasma total choles terol/high density lipoprotein (HDL) cholesterol mass bernie 05-27-2024 Cholesterol.total/Chol esterol in HDL [Mass ratio] Serum or plasma total cholesterol/high density lipoprotein (HDL) cholesterol mass rat [facility] Comment on above: 3.3 - 4.4 LOW RISK4. 4 - 7.1 AVERAGE RISK7.1 - 11.0 MODERATE RISK>11.0 HIGH RISK Office Visiton 03-19-2024 Follow-up visit [id number] Clari Gibbs 1940 F Date Provider Department Center 03/19/2024 Zaida-STEFANIE HUTCHINS [facility] Family History Problem Relation Age of Onset No Known Problems Mother No Known Problems Father Family Status - Relation Status Age at Mother Father Level of Service:22926 CO OFFICE/OUTPATIENT ESTABLISHED MOD MDM 30 MIN Reason for Visit and Comments: Coronary Artery Disease [187] Congestive Heart Failure [127] Hypertension [506131] Normal [facility] Hemoglobin [Mass/volume] in Bloodon 02-25-2024 Hemoglobin (Bld) [Mass/Vol] 12.6 g/dL 12.0-16.0 [facility] Hemoglobin (Bld) [Mass/Vol] Hemoglobin [Mass/volume] in Blood 12.0-16.0 [facility] Estimated glomerular filtrat ion rate (GFR) non- Americanon 01-24-2024 GFR/1.73 sq M.predicted among non-blacks MDRD (S/P/Bld) [Vol rate/Area] 48 mL/min/{1.73_m2} Low >=60 [facility] Laboratory - Chemistry and C hemistry - challengeon 01-24-2024 Calcium [Mass/Vol] 9.4 mg/dL 8.5-10.1 [facility] Chloride [Moles/Vol] 109 mmol/L High 98-107 [facility] CO2 [Moles/Vol] 22.4 mmol/L 21.0-32.0 [facility] Creatinine [Mass/Vol] 1.09 mg/dL High 0.55-1.02 [facility] GFR/1.73 sq M.predicted MDRD (S/P/Bld) [Vol rate/Area] 58 mL/min/{1.73_m2} Low >=60 [facility] Glucose [Mass/Vol] 97 mg/dL 74-106 [facility] Potassium [Moles/Vol] 4.6 mmol/L 3.5-5.1 [facility] Sodium [Moles/Vol] 143 mmol/L 136-145 [facility] Urea nitrogen [Mass/Vol] 23.0 mg/dL High 7.0-18.0 [facility] Urea nitrogen/Creatinine [Mass ratio] 21.1 mg/mg [facility] Serum or plasma anion gap de terminationon 01-24-2024 Anion gap [Moles/Vol] 16.2 mmol/L [facility] 2901-23-2024 29 Addended by: VIRI MAZARIEGOS on: 01/23/2024 04:03 PM Modules accepted: Orders [facility] 01-23-2024 36 Spoke with patient a nd made her aware. She will have repeat BMP within the next few days. Order faxed to [facility]. Normal [facility] 01-17-2024 36 I reviewed the blood pressure readings and the blood test from 01/17/2024. Blood pressure is better. Renal function is improving. Still not at baseline. Please ask her to continue to hold diuretics. She should get BMP in 1 week. [facility] Estimated glomerular filtrat ion rate (GFR) non- Americanon 01-17-2024 GFR/1.73 sq M.predicted among non-blacks MDRD (S/P/Bld) [Vol rate/Area] 36 mL/min/{1.73_m2} Low >=60 [facility] Laboratory - Chemistry and C hemistry - challengeon 01-17-2024 Calcium [Mass/Vol] 9.5 mg/dL 8.5-10.1 [facility] Chloride [Moles/Vol] 108 mmol/L High 98-107 [facility] CO2 [Moles/Vol] 22.3 mmol/L 21.0-32.0 [facility] Creatinine [Mass/Vol] 1.40 mg/dL High 0.55-1.02 [facility] GFR/1.73 sq M.predicted MDRD (S/P/Bld) [Vol rate/Area] 43 mL/min/{1.73_m2} Low >=60 [facility] Glucose [Mass/Vol] 133 mg/dL High 74-106 [facility] Potassium [Moles/Vol] 4.8 mmol/L 3.5-5.1 [facility] Sodium [Moles/Vol] 141 mmol/L 136-145 [facility] Urea nitrogen [Mass/Vol] 55.0 mg/dL High 7.0-18.0 [facility] Urea nitrogen/Creatinine [Mass ratio] 39.3 mg/mg [facility] Serum or plasma anion gap de terminationon 01-17-2024 Anion gap [Moles/Vol] 15.5 mmol/L [facility] Telephoneon 01-17-2024 Telephone [id number] Clari Gibbs 1940 F Date Provider Department Center 01/17/2024 BALA MORGAN CARD [facility] Family History Problem Relation Age of Onset No Known Problems Mother No Known Problems Father Family Status - Relation Status Age at Mother Father [facility] 36on 01-15-2024 36 Spoke with patient a nd told her I faxed BMP order to [facility]. She will have it drawn on she said. [facility] Estimated glomerular filtrat ion rate (GFR) non- Americanon 01-14-2024 GFR/1.73 sq M.predicted among non-blacks MDRD (S/P/Bld) [Vol rate/Area] 22 mL/min/{1.73_m2} Low >=60 [facility] Laboratory - Chemistry and C hemistry - challengeon 01-14-2024 Calcium [Mass/Vol] 9.2 mg/dL 8.5-10.1 [facility] Chloride [Moles/Vol] 105 mmol/L 98-107 [facility] CO2 [Moles/Vol] 22.6 mmol/L 21.0-32.0 [facility] Creatinine [Mass/Vol] 2.10 mg/dL High 0.55-1.02 [facility] GFR/1.73 sq M.predicted MDRD (S/P/Bld) [Vol rate/Area] 27 mL/min/{1.73_m2} Low >=60 [facility] Glucose [Mass/Vol] 126 mg/dL High 74-106 [facility] Potassium [Moles/Vol] 5.2 mmol/L High 3.5-5.1 [facility] Sodium [Moles/Vol] 140 mmol/L 136-145 [facility] Urea nitrogen [Mass/Vol] 76.0 mg/dL High 7.0-18.0 [facility] Comment on above: RESULTS CALLED TO AN NE MINISTERIO @BY Gemini Carpenter at 1334 Urea nitrogen/Creatinine [Mass ratio] 36.2 mg/mg [facility] Serum or plasma anion gap de terminationon 01-14-2024 Anion gap [Moles/Vol] 17.6 mmol/L [facility] Telephoneon 01-14-2024 Telephone [id number] Clari Gibbs 1940 F Date Provider Department Center 01/14/2024 SONA LINDER CARD [facility] Family History Problem Relation Age of Onset No Known Problems Mother No Known Problems Father Family Status - Relation Status Age at Mother Father Normal [facility] US venous duplex LE BIon US venous duplex LE BI [facility] Main [place] [id number] Ultrasound Report Signed Patient: Nora Gibbs MR#: [id number] 464 : 1940 Acct:[id number] Age/Sex: 83 / F ADM Date: 11/30/23 Loc: Room: [address] [place] [address] Type: DIS INOo Attending Dr: Jim Clay [...] Joe Moscoso MD12/03/2023 3:59 PM Dictation Location: [place] [address] Tech: Betty Mccarty Transcribed By: ALEXANDER 12/03/23 1886 Dictated By: Joe Moscoso MD 12/03/23 1558 Signed By: 12/03/23 1559 Normal [facility] A1C with Estimated Average [place] 12-01-2023 Glucose [Mass/Vol] 137 mg/dL Normal [facility] Comment on above: Result Comment: PERF ORMED BY: [facility] [address] [place] [address] PATHOLOGIST [employer] JUDY RASMUSSEN M.D. Performed By: #### L IPID, HS TROP, A1C WTH eA, MG, BMP, CBC ####[address] Automated basophil %Ordered By: Jim Clay on 12-01-2023 Basophils/100 WBC (Bld) 0.8 % . [facility] Comment on above: Performed By: #### L IPID, HS TROP, A1C WTH eA, MG, BMP, CBC ####[place] [id number] [facility] Automated basophil countOrde red By: Jim Clay on 12-01-2023 Basophils (Bld) [#/Vol] 0.0 10*3/uL 0.0-0.2 [facility] Comment on above: Result Comment: PERF ORMED BY: [facility] [address] [place] [id number] PATHOLOGIST [employer] JUDY RASMUSSEN M.D. Performed By: #### L IPID, HS TROP, A1C WTH eA, MG, BMP, CBC ####[place] [id number] [facility] Automated blood monocyte cou ntOrdered By: Jim Clay on 12-01-2023 Monocytes (Bld) [#/Vol] 0.7 10*3/uL 0.0-0.8 [facility] Comment on above: Performed By: #### L IPID, HS TROP, A1C WTH eA, MG, BMP, CBC ####[place] [id number] [facility] Automated eosinophil %Ordere d By: Jim Clay on 12-01-2023 Eosinophils/100 WBC (Bld) 2.8 % . [facility] Comment on above: Performed By: #### L IPID, HS TROP, A1C WTH eA, MG, BMP, CBC ####[place] [address] [address] Automated eosinophil countOr dered By: Jim Clay on 12-01-2023 Eosinophils (Bld) [#/Vol] 0.2 10*3/uL 0.0-0.45 [facility] Comment on above: Performed By: #### L IPID, HS TROP, A1C WTH eA, MG, BMP, CBC ####[address] Automated monocyte %Ordered By: Jim Clay on 12-01-2023 Monocytes/100 WBC (Bld) 11.5 % . [facility] Comment on above: Performed By: #### L IPID, HS TROP, A1C WTH eA, MG, BMP, CBC ####[address] Automated neutrophil %Ordere d By: Jim Clay on 12-01-2023 Neutrophils/100 WBC (Bld) 62.6 % . [facility] Comment on above: Performed By: #### L IPID, HS TROP, A1C WTH eA, MG, BMP, CBC ####[address] Basic Metabolic Panelon 11-10 Creatinine Clr Calc Pharmacy 47.06 Normal [facility] Comment on above: Performed By: #### L IPID, HS TROP, A1C WTH eA, MG, BMP, CBC ####[place] [id number] [facility] GFR/1.73 sq M.predicted MDRD (S/P/Bld) [Vol rate/Area] mL/min/{1.73_m2} Normal [facility] Comment on above: Performed By: #### L IPID, HS TROP, A1C WTH eA, MG, BMP, CBC ####[address] [address] [facility] Calcium [Mass/volume] in Ser um or PlasmaOrdered By: Jim Clay on 12-01-2023 Calcium [Mass/Vol] 8.7 mg/dL 8.6-10.3 [facility] Comment on above: Performed By: #### L IPID, HS TROP, A1C WTH eA, MG, BMP, CBC ####[place] [address] [place] [address] [facility] Carbon dioxide, total [Moles /volume] in Serum or PlasmaOrdered By: Jim Clay on 12-01-2023 CO2 [Moles/Vol] 22.8 mmol/L 21.0-31.0 [facility] Comment on above: Performed By: #### L IPID, HS TROP, A1C WTH eA, MG, BMP, CBC ####[address] [address] [place] Chloride [Moles/volume] in S tyron or PlasmaOrdered By: Jim Clay on 12-01-2023 Chloride [Moles/Vol] 112 mmol/L High 98-107 [facility] Comment on above: Performed By: #### L IPID, HS TROP, A1C WTH eA, MG, BMP, CBC ####[address] [address] [facility] Cholesterol [Mass/volume] in Serum or PlasmaOrdered By: Jim Clay on 12-01-2023 Cholesterol [Mass/Vol] 109 mg/dL Low 140-200 [facility] Comment on above: Chol less than 200 m g/dl low riskChol 201-239 mg/dl borderline riskChol 240 mg/dl and greater high risk Result Comment: Chol less than 200 mg/dl low risk Chol 201-239 mg/dl borderline risk Chol 240 mg/dl and greater high risk Performed By: #### L IPID, HS TROP, A1C WTH eA, MG, BMP, CBC ####[address] [address] [place] Cholesterol in LDL Calc [Mas s/Vol]Ordered By: Jim Clay on 06-22-2024 Cholesterol in LDL [Mass/Vol] 37 mg/dL 0-100 [facility] Comment on above: LDL ATP III CLASSIFI CATIONLDL less than 100 mg/dL OptimalLDL 100-129 mg/dL Near or above optimalLDL 130-159 mg/dL Borderline highLDL 160-189 mg/dL HighLDL greater than 189 mg/dL Very high Cholesterol in VLDL Calc [Ma ss/Vol]Ordered By: Jim Clay on 12-01-2023 Cholesterol in VLDL [Mass/Vol] 34 mg/dL [facility] Complete Blood Count Auto Di ffon 12-01-2023 Mean Corpuscular HGB Conc 33.4 g/dL Normal 32.0-35.0 [facility] Comment on above: Performed By: #### L IPID, HS TROP, A1C WTH eA, MG, BMP, CBC ####[facility] [id number] NRBC% 0.1 /100{WBC} Normal 0-0.[address] [facility] Comment on above: Performed By: #### L IPID, HS TROP, A1C WTH eA, MG, BMP, CBC ####[facility] [id number] [place] [id number] [facility] Creatinine [Mass/volume] in Serum or PlasmaOrdered By: Jim Clay on 12-01-2023 Creatinine [Mass/Vol] 0.84 mg/dL 0.60-1.20 [facility] Comment on above: Performed By: #### L IPID, HS TROP, A1C WTH eA, MG, BMP, CBC ####[facility] [id number] [place] [address] [facility] ECH echo transthoracicon ECH echo transthoracic [facility] [address] [place] [address] [place] [address] Echocardiogram Signed Patient: Nora Gibbs MR#: [id number] 464 : 1940 Acct:[id number] Age/Sex: 83 / F ADM Date: 11/30/23 Loc: Room: [address] [place] [address] Type: ADM INOo Attending Dr: Jim Clay DO Ordering Provider: Jim Clay DO Date of Service: 12/01/23 [facility] echo transthoracic: chest pain Copies to: DO [...] Margarito Ballesteros MD 12/01/23 1449 Normal [facility] Erythrocyte distribution wid th [Ratio] by Automated countOrdered By: Jim Clay on 12-01-2023 Erythrocyte distribution width (RBC) [Ratio] 13.4 % 11.9-15.3 [facility] Comment on above: Performed By: #### L IPID, HS TROP, A1C WTH eA, MG, BMP, CBC ####[facility] [id number] [place] [address] [facility] Erythrocytes [#/volume] in B lood by Automated countOrdered By: Jim Clay on 12-01-2023 RBC (Bld) [#/Vol] 3.81 10*6/uL 3.60-5.00 [facility] Comment on above: Performed By: #### L IPID, HS TROP, A1C WTH eA, MG, BMP, CBC ####[facility] [id number] [place] [address] [facility] Glucose [Mass/volume] in Ser um or PlasmaOrdered By: Jim Clay on 12-01-2023 Glucose [Mass/Vol] 100 mg/dL 70-100 [facility] Comment on above: ADA recommended refe rence rangeRandom Glucose Reference Range is dependent on time and content of last meal. Glucose of more than 200 mg/dL in a nonstressed, ambulatory subject supports the diagnosis of Diabetes Mellitus. Result Comment: [place] Glucose Reference Range is dependent on time and content of last meal. Glucose of more than 200 mg/dL in a nonstressed, ambulatory subject supports the diagnosis of Diabetes Mellitus. ADA recommended reference range Performed By: #### L IPID, HS TROP, A1C WTH eA, MG, BMP, CBC ####[facility] Glucose mean value [Mass/vol ume] in Blood Estimated from glycated hemoglobinOrdered By: Jim Clay on 12-01-2023 Average glucose Estimated from glycated hemoglobin (Bld) [Mass/Vol] 137 mg/dL [facility] Hematocrit [Volume Fraction] of Blood by Automated countOrdered By: Jim Clay on 12-01-2023 Hematocrit (Bld) [Volume fraction] 34.9 % 34.0-46.4 [facility] Comment on above: Performed By: #### L IPID, HS TROP, A1C WTH eA, MG, BMP, CBC ####[place] [id number] [address] Hemoglobin A1c percentageOrd ered By: Jim Clay on 12-01-2023 HbA1c (Bld) [Mass fraction] 6.4 % High 4.3-5.6 [facility] Comment on above: Increased risk for d iabetes: 5.7 - 6.4diabetes: >6.4glycemic control for adults with diabetes: <7.0 Result Comment: Incr eased risk for diabetes: 5.7 - 6.4 diabetes: >6.4 glycemic control for adults with diabetes: <7.0 Performed By: #### L IPID, HS TROP, A1C WTH eA, MG, BMP, CBC ####[place] [id number] [facility] Hemoglobin [Mass/volume] in BloodOrdered By: Jim Clay on 12-01-2023 Hemoglobin (Bld) [Mass/Vol] 11.7 g/dL Low 11.8-15.4 [facility] Comment on above: Performed By: #### L IPID, HS TROP, A1C WTH eA, MG, BMP, CBC ####[address] [place] [address] [facility] Leukocytes [#/volume] correc katia for nucleated erythrocytes in Blood by Automated counOrdered By: Jim Clay on 12-01-2023 WBC corrected for nucl RBC Auto (Bld) [#/Vol] 6.4 10*3/uL 3.8-11.6 [facility] Leukocytes [#/volume] in Blo od by Automated countOrdered By: Jim Clay on 12-01-2023 WBC (Bld) [#/Vol] 6.4 10*3/uL 3.8-11.6 [facility] Comment on above: Performed By: #### L IPID, HS TROP, A1C WTH eA, MG, BMP, CBC ####[facility] [place] [address] [facility] Lipid Panelon 12-01-2023 LDL Cholesterol,Calculated 37 mg/dL Normal 0-100 [facility] Comment on above: Result Comment: LDL ATP III CLASSIFICATION LDL less than 100 mg/dL Optimal LDL 100-129 mg/dL Near or above optimal LDL 130-159 mg/dL Borderline high LDL 160-189 mg/dL High LDL greater than 189 mg/dL Very high Performed By: #### L IPID, HS TROP, A1C WTH eA, MG, BMP, CBC ####[place] [address] [place] [id number] [facility] Triglyceride w/Reflex 171 mg/dL High 0-149 [facility] Comment on above: Result Comment: TRIG ATP III CLASSIFICATION TRIG less than 150 mg/dL Normal TRIG 150-199 mg/dL Borderline high TRIG 200-500 mg/dL High TRIG greater than 500 mg/dL Very high Standard traceable to the Center for Disease Conrtrol and Prevention (CDC) test method. Performed By: #### L IPID, HS TROP, A1C WTH eA, MG, BMP, CBC ####[facility] [place] [address] [facility] VLDL CHOLESTEROL 34 mg/dL Normal [facility] Comment on above: Performed By: #### L IPID, HS TROP, A1C WTH eA, MG, BMP, CBC ####[address] Lymphocytes [#/volume] in Bl ood by Automated countOrdered By: Jim Clay on 12-01-2023 Lymphocytes (Bld) [#/Vol] 1.4 10*3/uL 1.00-4.8 [facility] Comment on above: Performed By: #### L IPID, HS TROP, A1C WTH eA, MG, BMP, CBC ####[address] Lymphocytes/100 leukocytes i n Blood by Automated countOrdered By: Jim Clay on 12-01-2023 Lymphocytes/100 WBC (Bld) 22.3 % . [facility] Comment on above: Performed By: #### L IPID, HS TROP, A1C WTH eA, MG, BMP, CBC ####[address] MCH [Entitic mass] by Automa katia countOrdered By: Jim Clay on 12-01-2023 MCH (RBC) [Entitic mass] 30.5 pg 24.7-34.3 [facility] Comment on above: Performed By: #### L IPID, HS TROP, A1C WTH eA, MG, BMP, CBC ####[address] MCHC Auto (RBC) [Mass/Vol]Or dered By: Jim Clay on 12-01-2023 MCHC (RBC) [Mass/Vol] 33.4 g/dL 32.0-35.0 [facility] MCV [Entitic volume] by Auto mated countOrdered By: Jim Clay on 12-01-2023 MCV (RBC) [Entitic vol] 91.5 fL 80-100 [facility] Comment on above: Performed By: #### L IPID, HS TROP, A1C WTH eA, MG, BMP, CBC ####[address] Magnesium [Mass/volume] in S tyron or PlasmaOrdered By: Jim Clay on 12-01-2023 Magnesium [Mass/Vol] 1.7 mg/dL Low 1.9-2.7 [facility] Comment on above: Performed By: #### L IPID, HS TROP, A1C WTH eA, MG, BMP, CBC ####[place] [address] [address] Neutrophils [#/volume] in Bl ood by Automated countOrdered By: Jim Clay on 12-01-2023 Neutrophils (Bld) [#/Vol] 4.0 10*3/uL 1.8-7.7 [facility] Comment on above: Performed By: #### L IPID, HS TROP, A1C WTH eA, MG, BMP, CBC ####[address] No Panel InformationOrdered By: Jim Clay on 12-01-2023 Estimated GFR (CKD-EPI) > 60.0 mL/Min [facility] Creatinine Clearance (Chem 47.06 [facility] Nucleated erythrocytes [Pres ence] in Blood by Automated countOrdered By: Jim Clay on 12-01-2023 Nucleated RBC Auto Ql (Bld) 0.1 /100{WBC} 0-0.5 [facility] Platelet mean volume [Entiti c volume] in Blood by Automated countOrdered By: Jim Clay on 12-01-2023 Platelet mean volume (Bld) [Entitic vol] 10.0 fL 6.3-10.7 [facility] Comment on above: Performed By: #### L IPID, HS TROP, A1C WTH eA, MG, BMP, CBC ####[place] [address] Platelets [#/volume] in Bloo d by Automated countOrdered By: Jim Clay on 12-01-2023 Platelets (Bld) [#/Vol] 203 10*3/uL 150-450 [facility] Comment on above: Performed By: #### L IPID, HS TROP, A1C WTH eA, MG, BMP, CBC ####[address] Potassium [Moles/volume] in Serum or PlasmaOrdered By: Jim Clay on 12-01-2023 Potassium [Moles/Vol] 4.3 mmol/L 3.5-5.1 [facility] Comment on above: Performed By: #### L IPID, HS TROP, A1C WTH eA, MG, BMP, CBC ####[facility] Serum or plasma anion gap de terminationOrdered By: Jim Clay on 12-01-2023 Anion gap [Moles/Vol] 11.5 mmol/L 6.0-15.0 [facility] Comment on above: Performed By: #### L IPID, HS TROP, A1C WTH eA, MG, BMP, CBC ####[facility] Serum or plasma high density lipoprotein (HDL) cholesterol measurementOrdered By: Jim Clay on 12-01-2023 Cholesterol in HDL [Mass/Vol] 38 mg/dL [facility] Comment on above: HDL CHOL ATP-III CLA SSIFICATION Cardiovascular RiskHDL > or equal to 60 mg/dL LOWHDL < 40 mg/dL HIGH Result Comment: HDL CHOL ATP-III CLASSIFICATION Cardiovascular Risk HDL > or equal to 60 mg/dL LOW HDL < 40 mg/dL HIGH Performed By: #### L IPID, HS TROP, A1C WTH eA, MG, BMP, CBC ####[place] [address] Serum or plasma total choles terol/high density lipoprotein (HDL) cholesterol mass ratOrdered By: Jim Clay on 12-01-2023 Cholesterol.total/Chol esterol in HDL [Mass ratio] 2.9 {ratio} <5.0 [facility] Comment on above: Result Comment: PERF ORMED BY: [facility] [address] [place] [address] PATHOLOGIST [employer] JUDY RASMUSSEN M.D. Performed By: #### L IPID, HS TROP, A1C WTH eA, MG, BMP, CBC ####[facility] [place] [address] [facility] Sodium [Moles/volume] in Ser um or PlasmaOrdered By: Jim Clay on 12-01-2023 Sodium [Moles/Vol] 142 mmol/L 136-145 [facility] Comment on above: Performed By: #### L IPID, HS TROP, A1C WTH eA, MG, BMP, CBC ####[place] [address] [place] [address] [facility] Triglyceride [Mass/volume] i n Serum or PlasmaOrdered By: Jim Clay on 12-01-2023 Triglyceride [Mass/Vol] 171 mg/dL High 0-149 [facility] Comment on above: TRIG ATP III CLASSIF ICATIONTRIG less than 150 mg/dL NormalTRIG 150-199 mg/dL Borderline highTRIG 200-500 mg/dL High TRIG greater than 500 mg/dL Very highStandard traceable to the Center for Disease Conrtrol and Prevention (CDC) test method. Troponin I High Sensitivityo n 12-01-2023 Troponin I High Sensitivity 9.5 pg/mL Normal 0.0-15.0 [facility] Comment on above: Result Comment: PERF ORMED BY: [facility] [address] [place] [address] PATHOLOGIST [employer] JUDY RASMUSSEN M.D. Performed By: #### L IPID, HS TROP, A1C WTH eA, MG, BMP, CBC ####[place] [address] [place] [address] [facility] Troponin I.cardiac [Mass/vol ume] in Serum or Plasma by Detection limit <= 0.01 ng/Ordered By: Jim Clay on 12-01-2023 Troponin I.cardiac DL <= 0.01 ng/mL [Mass/Vol] 9.5 pg/mL 0.0-15.0 [facility] Urea nitrogen [Mass/volume] in Serum or PlasmaOrdered By: Jim Clay on 12-01-2023 Urea nitrogen [Mass/Vol] 21 mg/dL 7-25 [facility] Comment on above: Performed By: #### L IPID, HS TROP, A1C WTH eA, MG, BMP, CBC ####[facility] [id number] [place] [address] [place] Activated partial thrombopla stin time (aPTT) in platelet poor plasma by coagulation aOrdered By: Nika Fagan on 11-30-2023 aPTT Coag (PPP) [Time] 29.1 s 25.1-36.5 [facility] Comment on above: A hematocrit value g reater than 55% may lead to inaccurate results in coagulation testing. Patients having hematocrit values >55% require a special collection tube for coagulation studies. Please contact the laboratory at [phone] for redraw instructions. Alanine aminotransferase [En zymatic activity/volume] in Serum or PlasmaOrdered By: Nika Fagan on 11-30-2023 ALT [Catalytic activity/Vol] 20 U/L 7-52 [facility] Comment on above: Performed By: #### C BC, BNP, PTT, DDIMER, HS TROP, PT, CMP #### [facility] [address] [place] [address] [place] Albumin [Mass/volume] in Ser um or Plasma by Bromocresol green (BCG) dye binding methoOrdered By: Nika Fagan on 11-30-2023 Albumin BCG dye [Mass/Vol] 4.1 g/dL 3.5-5.7 [facility] Alkaline phosphatase [Enzyma tic activity/volume] in Serum or PlasmaOrdered By: Nika Fagan on 11-30-2023 ALP [Catalytic activity/Vol] 89 U/L 34-104 [facility] Comment on above: Performed By: #### C BC, BNP, PTT, DDIMER, HS TROP, PT, CMP #### [facility] [address] [place] [id number] [place] Aspartate aminotransferase [ Enzymatic activity/volume] in Serum or PlasmaOrdered By: Nika Fagan on 11-30-2023 AST [Catalytic activity/Vol] 25 U/L 13-39 [facility] Comment on above: Performed By: #### C BC, BNP, PTT, DDIMER, HS TROP, PT, CMP #### [facility] [address] [place] [address] [place] Automated basophil %Ordered By: Nika Fagan on 11-30-2023 Basophils/100 WBC (Bld) 0.6 % Normal . [facility] Comment on above: Performed By: #### C BC, BNP, PTT, DDIMER, HS TROP, PT, CMP #### [address] Automated basophil countOrde red By: Nika Fagan on 11-30-2023 Basophils (Bld) [#/Vol] 0.0 10*3/uL Normal 0.0-0.2 [facility] Comment on above: Result Comment: PERF ORMED BY: [place] [address] PATHOLOGIST [employer] JUDY RASMUSSEN M.D. Performed By: #### C BC, BNP, PTT, DDIMER, HS TROP, PT, CMP #### [address] Automated blood monocyte cou ntOrdered By: Nika Fagan on 11-30-2023 Monocytes (Bld) [#/Vol] 0.6 10*3/uL Normal 0.0-0.8 [facility] Comment on above: Performed By: #### C BC, BNP, PTT, DDIMER, HS TROP, PT, CMP #### [address] Automated eosinophil %Ordere d By: Nika Fagan on 11-30-2023 Eosinophils/100 WBC (Bld) 2.8 % Normal . [facility] Comment on above: Performed By: #### C BC, BNP, PTT, DDIMER, HS TROP, PT, CMP #### [address] Automated eosinophil countOr dered By: Nika Fagan on 11-30-2023 Eosinophils (Bld) [#/Vol] 0.2 10*3/uL Normal 0.0-0.45 [facility] Comment on above: Performed By: #### C BC, BNP, PTT, DDIMER, HS TROP, PT, CMP #### [address] Automated monocyte %Ordered By: Nika Fagan on 11-30-2023 Monocytes/100 WBC (Bld) 9.8 % Normal . [facility] Comment on above: Performed By: #### C BC, BNP, PTT, DDIMER, HS TROP, PT, CMP #### [facility] [address] [place] [address] Automated neutrophil %Ordere d By: Nika Fagan on 11-30-2023 Neutrophils/100 WBC (Bld) 66.7 % Normal . [facility] Comment on above: Performed By: #### C BC, BNP, PTT, DDIMER, HS TROP, PT, CMP #### [facility] [address] [place] [address] BNP ser/plasOrdered By: Mono Fagan on 11-30-2023 Natriuretic peptide B (Bld) [Mass/Vol] 274.0 pg/mL High 5-100 [facility] Comment on above: Result Comment: PERF ORMED BY: [place] [address] PATHOLOGIST [employer] JUDY RASMUSSEN M.D. Performed By: #### C BC, BNP, PTT, DDIMER, HS TROP, PT, CMP #### [address] Bilirubin.total [Mass/volume ] in Serum or PlasmaOrdered By: Nika Fagan on 11-30-2023 Bilirubin [Mass/Vol] 0.5 mg/dL 0.3-1.0 [facility] Comment on above: Performed By: #### C BC, BNP, PTT, DDIMER, HS TROP, PT, CMP #### [facility] [address] [place] [address] CT angio chest PE protocolon 11-30-2023 CT angio chest PE protocol [facility] [place] [address] [place] [address] CT Scan Report Signed Patient: Nora Gibbs MR#: [id number] : 1940 Acct:[id number] Age/Sex: 83 / F ADM Date: 11/30/23 Loc: ER Room: Type: [facility] ER Attending Dr: Copies to: Nika [...] Mahendra Chandler M.D.11/30/2023 12:06 PM Dictation Location: [place] [address] Transcribed By: [facility] 11/30/23 1206 Dictated By: Mahendra Chandler DO 11/30/23 1200 Signed By: 11/30/23 1206 Normal [facility] Calcium [Mass/volume] in Ser um or PlasmaOrdered By: Nika Fagan on 11-30-2023 Calcium [Mass/Vol] 9.4 mg/dL Normal 8.6-10.3 [facility] Comment on above: Performed By: #### C BC, BNP, PTT, DDIMER, HS TROP, PT, CMP #### [address] Carbon dioxide, total [Moles /volume] in Serum or PlasmaOrdered By: Nika Fagan on 11-30-2023 CO2 [Moles/Vol] 20.0 mmol/L Low 21.0-31.0 [facility] Comment on above: Performed By: #### C BC, BNP, PTT, DDIMER, HS TROP, PT, CMP #### [address] Chloride [Moles/volume] in S tyron or PlasmaOrdered By: Nika Fagan on 11-30-2023 Chloride [Moles/Vol] 111 mmol/L High 98-107 [facility] Comment on above: Performed By: #### C BC, BNP, PTT, DDIMER, HS TROP, PT, CMP #### [address] Complete Blood Count Auto Di ffon 11-30-2023 Mean Corpuscular HGB Conc 33.0 g/dL Normal 32.0-35.0 [facility] Comment on above: Performed By: #### C BC, BNP, PTT, DDIMER, HS TROP, PT, CMP #### [address] Monocytes/100 WBC (Bld) 16.37 % Normal 0.00-20.00 [facility] Comment on above: Performed By: #### C BC, BNP, PTT, DDIMER, HS TROP, PT, CMP #### [address] NRBC% 0.1 /100{WBC} Normal 0-0.[address] [facility] Comment on above: Performed By: #### C BC, BNP, PTT, DDIMER, HS TROP, PT, CMP #### [address] Comprehensive Metabolic Pane ventura 11-30-2023 Albumin [Mass/Vol] 4.1 g/dL Normal 3.5-5.7 [facility] Comment on above: Performed By: #### C BC, BNP, PTT, DDIMER, HS TROP, PT, CMP #### [facility] [address] Creatinine Clr Calc Pharmacy 43.90 Normal [facility] Comment on above: Result Comment: PERF ORMED BY: [address] [place] [address] PATHOLOGIST [employer] JUDY RASMUSSEN M.D. Performed By: #### C BC, BNP, PTT, DDIMER, HS TROP, PT, CMP #### [address] GFR/1.73 sq M.predicted MDRD (S/P/Bld) [Vol rate/Area] mL/min/{1.73_m2} Normal [facility] Comment on above: Performed By: #### C BC, BNP, PTT, DDIMER, HS TROP, PT, CMP #### [address] Creatinine [Mass/volume] in Serum or PlasmaOrdered By: Nika Fagan on 11-30-2023 Creatinine [Mass/Vol] 0.91 mg/dL Normal 0.60-1.20 [facility] Comment on above: Performed By: #### C BC, BNP, PTT, DDIMER, HS TROP, PT, CMP #### [address] D-Dimer High Sensitivityon 0 11-30-2023 D-Dimer High Sensitivity 734 ng/mL High 0-243 [facility] Comment on above: Result [...] coagulation studies. Please contact the laboratory at [phone] for redraw instructions. PERFORMED BY: [place] [id number] PATHOLOGIST [employer]IDE MAKER JUDY RASMUSSEN M.D. Performed By: #### C BC, BNP, PTT, DDIMER, HS TROP, PT, CMP ####[facility] [id number] [place] [address] [facility] ECG 12 lead ECGon 11-30-2023 ECG 12 lead ECG [facility] [place] [address] [place] [address] Electrocardiograph Report Signed Patient: Nora Gibbs MR#: [id number] : 1940 Acct:[id number] Age/Sex: 83 / F ADM Date: 11/30/23 Loc: Room: [address] [place] [address] Type: ADM INOo Attending Dr: Jim Clay [...] Lateral leads Confirmed by Kole Damon DO ([id number]) on 11/30/2023 3:08:44 PM Referred By: Electronically Signed By:Kole Damon DO Transcribed By: MUS Signed By Kole Damon DO 4 1509 Normal [facility] Erythrocyte distribution wid th [Ratio] by Automated countOrdered By: Nika Fagan on 11-30-2023 Erythrocyte distribution width (RBC) [Ratio] 13.4 % Normal 11.9-15.3 [facility] Comment on above: Performed By: #### C BC, BNP, PTT, DDIMER, HS TROP, PT, CMP #### [facility] [address] [place] [id number] [place] Erythrocytes [#/volume] in B lood by Automated countOrdered By: Nika Fagan on 11-30-2023 RBC (Bld) [#/Vol] 4.17 10*6/uL Normal 3.60-5.00 [facility] Comment on above: Performed By: #### C BC, BNP, PTT, DDIMER, HS TROP, PT, CMP #### [facility] [address] [place] [address] [facility] Fibrin D-dimer [Presence] in Platelet poor plasma by Latex agglutinationOrdered By: Nika Fagan on 11-30-2023 Fibrin D-dimer LA Ql (PPP) 734 ng/mL High 0-243 [facility] Comment on above: The reference range for [...] coagulation studies. Please contact the laboratory at [phone] for redraw instructions. Glucose [Mass/volume] in Ser um or PlasmaOrdered By: Nika Fagan on 11-30-2023 Glucose [Mass/Vol] 121 mg/dL High 70-100 [facility] Comment on above: ADA recommended refe rence rangeRandom Glucose Reference Range is dependent on time and content of last meal. Glucose of more than 200 mg/dL in a nonstressed, ambulatory subject supports the diagnosis of Diabetes Mellitus. Result Comment: Gordon om Glucose Reference Range is dependent on time and content of last meal. Glucose of more than 200 mg/dL in a nonstressed, ambulatory subject supports the diagnosis of Diabetes Mellitus. ADA recommended reference range Performed By: #### C BC, BNP, PTT, DDIMER, HS TROP, PT, CMP #### [facility] [address] Hematocrit [Volume Fraction] of Blood by Automated countOrdered By: Nika Fagan on 11-30-2023 Hematocrit (Bld) [Volume fraction] 37.9 % Normal 34.0-46.4 [facility] Comment on above: Performed By: #### C BC, BNP, PTT, DDIMER, HS TROP, PT, CMP #### [address] Hemoglobin [Mass/volume] in BloodOrdered By: Nika Fagan on 11-30-2023 Hemoglobin (Bld) [Mass/Vol] 12.5 g/dL Normal 11.8-15.4 [facility] Comment on above: Performed By: #### C BC, BNP, PTT, DDIMER, HS TROP, PT, CMP #### [facility] [address] INR in Platelet poor plasma by Coagulation assayOrdered By: Nika Fagan on 11-30-2023 INR Coag (PPP) [Relative time] 1.0 {INR} [facility] Comment on above: INR Therapeutic Rang e [...] DDIMER, HS TROP, PT, CMP #### [address] Leukocytes [#/volume] correc katia for nucleated erythrocytes in Blood by Automated counOrdered By: Nika Fagan on 11-30-2023 WBC corrected for nucl RBC Auto (Bld) [#/Vol] 6.1 10*3/uL 3.8-11.6 [facility] Leukocytes [#/volume] in Blo od by Automated countOrdered By: Nika Fagan on 11-30-2023 WBC (Bld) [#/Vol] 6.1 10*3/uL Normal 3.8-11.6 [facility] Comment on above: Performed By: #### C BC, BNP, PTT, DDIMER, HS TROP, PT, CMP #### [address] Lymphocytes [#/volume] in Bl ood by Automated countOrdered By: Nika Fagan on 11-30-2023 Lymphocytes (Bld) [#/Vol] 1.2 10*3/uL Normal 1.00-4.8 [facility] Comment on above: Performed By: #### C BC, BNP, PTT, DDIMER, HS TROP, PT, CMP #### [place] [address] [place] Lymphocytes/100 leukocytes i n Blood by Automated countOrdered By: Nika Fagan on 11-30-2023 Lymphocytes/100 WBC (Bld) 20.1 % Normal . [facility] Comment on above: Performed By: #### C BC, BNP, PTT, DDIMER, HS TROP, PT, CMP #### [place] [address] [place] MCH [Entitic mass] by Automa katia countOrdered By: Nika Fagan on 11-30-2023 MCH (RBC) [Entitic mass] 30.0 pg Normal 24.7-34.3 [facility] Comment on above: Performed By: #### C BC, BNP, PTT, DDIMER, HS TROP, PT, CMP #### [address] [place] [address] [place] MCHC Auto (RBC) [Mass/Vol]Or dered By: Nika Fagan on 11-30-2023 MCHC (RBC) [Mass/Vol] 33.0 g/dL 32.0-35.0 [facility] MCV [Entitic volume] by Auto mated countOrdered By: Nika Fagan on 11-30-2023 MCV (RBC) [Entitic vol] 90.9 fL Normal 80-100 [facility] Comment on above: Performed By: #### C BC, BNP, PTT, DDIMER, HS TROP, PT, CMP #### [facility] [address] Monocyte distribution width [Entitic volume] in Blood by AutomatedOrdered By: Nika Fagan on 11-30-2023 Monocyte distribution width Auto (Bld) [Entitic vol] 16.37 % 0.00-20.00 [facility] Neutrophils [#/volume] in Bl ood by Automated countOrdered By: Nika Fagan on 11-30-2023 Neutrophils (Bld) [#/Vol] 4.1 10*3/uL Normal 1.8-7.7 [facility] Comment on above: Performed By: #### C BC, BNP, PTT, DDIMER, HS TROP, PT, CMP #### [facility] [address] No Panel InformationOrdered By: Nika Fagan on 11-30-2023 Estimated GFR (CKD-EPI) > 60.0 mL/Min [facility] Creatinine Clearance (Chem 43.90 [facility] Nucleated erythrocytes [Pres ence] in Blood by Automated countOrdered By: Nika Fagan on 11-30-2023 Nucleated RBC Auto Ql (Bld) 0.1 /100{WBC} 0-0.5 [facility] Partial Thromboplastin Timeo n 11-30-2023 aPTT Coag (Bld) [Time] 29.1 s Normal 25.1-36.5 [facility] Comment on above: Result Comment: A he matocrit value greater than 55% may lead to inaccurate results in coagulation testing. Patients having hematocrit values >55% require a special collection tube for coagulation studies. Please contact the laboratory at [phone] for redraw instructions. Performed By: #### C BC, BNP, PTT, DDIMER, HS TROP, PT, CMP #### [facility] [address] Platelet mean volume [Entiti c volume] in Blood by Automated countOrdered By: Nika Fagan on 11-30-2023 Platelet mean volume (Bld) [Entitic vol] 9.3 fL Normal 6.3-10.7 [facility] Comment on above: Performed By: #### C BC, BNP, PTT, DDIMER, HS TROP, PT, CMP #### [address] Platelets [#/volume] in Bloo d by Automated countOrdered By: Nika Fagan on 11-30-2023 Platelets (Bld) [#/Vol] 195 10*3/uL Normal 150-450 [facility] Comment on above: Performed By: #### C BC, BNP, PTT, DDIMER, HS TROP, PT, CMP #### [address] Potassium [Moles/volume] in Serum or PlasmaOrdered By: Nika Fagan on 11-30-2023 Potassium [Moles/Vol] 4.1 mmol/L Normal 3.5-5.1 [facility] Comment on above: Performed By: #### C BC, BNP, PTT, DDIMER, HS TROP, PT, CMP #### [address] Protein [Mass/volume] in Ser um or PlasmaOrdered By: Nika Fagan on 11-30-2023 Protein [Mass/Vol] 6.9 g/dL 6.4-8.9 [facility] Comment on above: Performed By: #### C BC, BNP, PTT, DDIMER, HS TROP, PT, CMP #### [address] Prothrombin time (PT)Ordered By: Nika Fagan on 11-30-2023 PT Coag (PPP) [Time] 11.6 s 9.0-12.9 [facility] Comment on above: A hematocrit value g reater than 55% may lead to inaccurate results in coagulation testing. Patients having hematocrit values >55% require a special collection tube for coagulation studies. Please contact the laboratory at [phone] for redraw instructions. Result Comment: A he matocrit value greater than 55% may lead to inaccurate results in coagulation testing. Patients having hematocrit values >55% require a special collection tube for coagulation studies. Please contact the laboratory at [phone] for redraw instructions. Performed By: #### C BC, BNP, PTT, DDIMER, HS TROP, PT, CMP #### [address] Serum globulin measurement b y calculation (mass/volume)Ordered By: Nika Fagan on 11-30-2023 Globulin (S) [Mass/Vol] 2.8 g/dL [facility] Comment on above: Performed By: #### C BC, BNP, PTT, DDIMER, HS TROP, PT, CMP #### [facility] [address] [place] [address] Serum or plasma albumin/glob ulin mass ratioOrdered By: Nika Fagan on 11-30-2023 Albumin/Globulin [Mass ratio] 1.5 {ratio} [facility] Comment on above: Performed By: #### C BC, BNP, PTT, DDIMER, HS TROP, PT, CMP #### [facility] [address] [place] [address] Serum or plasma anion gap de terminationOrdered By: Nika Fagan on 11-30-2023 Anion gap [Moles/Vol] 14.1 mmol/L Normal 6.0-15.0 [facility] Comment on above: Performed By: #### C BC, BNP, PTT, DDIMER, HS TROP, PT, CMP #### [address] Sodium [Moles/volume] in Ser um or PlasmaOrdered By: Nika Fagan on 11-30-2023 Sodium [Moles/Vol] 141 mmol/L Normal 136-145 [facility] Comment on above: Performed By: #### C BC, BNP, PTT, DDIMER, HS TROP, PT, CMP #### [facility] [address] [place] [address] Troponin I High Sensitivityo n 11-30-2023 Troponin I High Sensitivity 15.3 pg/mL High 0.0-15.0 [facility] Comment on above: Result Comment: PERF ORMED BY: [place] [address] PATHOLOGIST SLIDE MAKER JUDY RASMUSSEN M.D. Performed By: #### H S TROP ####[address] Troponin I High Sensitivity 8.5 pg/mL Normal 0.0-15.0 [facility] Comment on above: Result Comment: PERF ORMED BY: [place] [address] PATHOLOGIST SLIDE MAKER JUDY RASMUSSEN M.D. Performed By: #### H S TROP ####[address] Troponin I High Sensitivity 6.9 pg/mL Normal 0.0-15.0 [facility] Comment on above: Result Comment: PERF ORMED BY: [place] [address] PATHOLOGIST SLIDE MAKER JUDY RASMUSSEN M.D. Performed By: #### C BC, BNP, PTT, DDIMER, HS TROP, PT, CMP #### [facility] [address] [place] [address] Troponin I.cardiac [Mass/vol ume] in Serum or Plasma by Detection limit <= 0.01 ng/Ordered By: Nika Fagan on 11-30-2023 Troponin I.cardiac DL <= 0.01 ng/mL [Mass/Vol] 8.5 pg/mL 0.0-15.0 [facility] Urea nitrogen [Mass/volume] in Serum or PlasmaOrdered By: Nika Fagan on 06-21-2024 Urea nitrogen [Mass/Vol] 24 mg/dL Normal 7-25 [facility] Comment on above: Performed By: #### C BC, BNP, PTT, DDIMER, HS TROP, PT, CMP #### [facility] [address] XR chest 2V*on 11-30-2023 XR chest 2V* [facility] [place] [address] [place] [address] XRay Report Signed Patient: Nora Gibbs MR#: [id number] : 1940 Acct:[id number] Age/Sex: 83 / F ADM Date: 11/30/23 Loc: ER Room: Type: [facility] ER Attending Dr: Copies to: Nika [...] Mathew Morton M.D.11/30/2023 11:41 AM Dictation Location: [place] [address] Transcribed By: [facility] 11/30/23 1141 Dictated By: Mathew Morton II, MD 11/30/23 1139 Signed By: 11/30/23 1141 Normal [facility] Basophils Auto (Bld) [#/Vol] on 11-20-2023 Basophils (Bld) [#/Vol] 0.1 10 3/uL 0.0-0.1 [facility] Basophils/100 WBC Auto (Bld) on 11-20-2023 Basophils/100 WBC (Bld) 0.6 % 0.2-2.0 [facility] Eosinophils/100 WBC Auto (Bl d)on 11-20-2023 Eosinophils/100 WBC (Bld) 2.4 % 0.9-7.0 [facility] Erythrocyte distribution wid th Auto (RBC) [Ratio]on 11-20-2023 Erythrocyte distribution width (RBC) [Ratio] 13.2 % 11.0-15.0 [facility] Estimated glomerular filtrat ion rate (GFR) non- Americanon 11-20-2023 GFR/1.73 sq M.predicted among non-blacks MDRD (S/P/Bld) [Vol rate/Area] 46 mL/min/{1.73_m2} Low >=60 [facility] Hematocrit Auto (Bld) [Volum e fraction]on 11-20-2023 Hematocrit (Bld) [Volume fraction] 41.6 % 36.0-48.0 [facility] Hemoglobin [Mass/volume] in Bloodon 11-20-2023 Hemoglobin (Bld) [Mass/Vol] 13.2 g/dL 12.0-16.0 [facility] Laboratory - Chemistry and C hemistry - challengeon 11-20-2023 Calcium [Mass/Vol] 9.4 mg/dL 8.5-10.1 [facility] Chloride [Moles/Vol] 106 mmol/L 98-107 [facility] CO2 [Moles/Vol] 26.3 mmol/L 21.0-32.0 [facility] Creatinine [Mass/Vol] 1.12 mg/dL High 0.55-1.02 [facility] GFR/1.73 sq M.predicted MDRD (S/P/Bld) [Vol rate/Area] 56 mL/min/{1.73_m2} Low >=60 [facility] Glucose [Mass/Vol] 108 mg/dL High 74-106 [facility] Natriuretic peptide B (Bld) [Mass/Vol] 491.0 pg/mL <=1800.0 [facility] Potassium [Moles/Vol] 4.2 mmol/L 3.5-5.1 [facility] Sodium [Moles/Vol] 141 mmol/L 136-145 [facility] TSH Qn 0.205 m[IU]/L Low 0.358-3.74 0 [facility] Urea nitrogen [Mass/Vol] 20.0 mg/dL High 7.0-18.0 [facility] Urea nitrogen/Creatinine [Mass ratio] 17.9 mg/mg [facility] Laboratory - Hematology and Cell countson 11-20-2023 Immature granulocytes/100 WBC (Bld) 0.1 % 0.0-0.5 [facility] Leukocytes [#/volume] correc katia for nucleated erythrocytes in Blood by Automated counon 11-20-2023 WBC corrected for nucl RBC Auto (Bld) [#/Vol] 8.0 10 3/uL 4.0-11.0 [facility] Lymphocytes Auto (Bld) [#/Vo l]on 11-20-2023 Lymphocytes (Bld) [#/Vol] 1.8 10 3/uL 1.2-3.8 [facility] Lymphocytes/100 WBC Auto (Bl d)on 11-20-2023 Lymphocytes/100 WBC (Bld) 22.3 % 20.5-60.0 [facility] MCH Auto (RBC) [Entitic mass ]on 11-20-2023 MCH (RBC) [Entitic mass] 29.3 pg 26.7-34.0 [facility] MCHC Auto (RBC) [Mass/Vol]on 11-20-2023 MCHC (RBC) [Mass/Vol] 31.7 g/dL 29.9-35.2 [facility] MCV Auto (RBC) [Entitic vol] on 11-20-2023 MCV (RBC) [Entitic vol] 92.4 fL 81.0-99.0 [facility] Monocytes Auto (Bld) [#/Vol] on 11-20-2023 Monocytes (Bld) [#/Vol] 0.9 10 3/uL High 0.3-0.8 [facility] Monocytes/100 WBC Auto (Bld) on 06-11-2024 Monocytes/100 WBC (Bld) 11.2 % 1.7-12.0 [facility] Neutrophils Auto (Bld) [#/Vo l]on 11-20-2023 Neutrophils (Bld) [#/Vol] 5.1 10 3/uL 1.4-6.5 [facility] Neutrophils/100 WBC Auto (Bl d)on 11-20-2023 Neutrophils/100 WBC (Bld) 63.4 % 43.0-75.0 [facility] No Panel Informationon 11-19 Eosinophils # (Auto) 0.2 10 3/uL 0.0-0.7 [facility] Immature Granulocyte # (Auto) 0.01 10 3/uL 0.00-0.03 [facility] Platelet mean volume Auto (B ld) [Entitic vol]on 11-20-2023 Platelet mean volume (Bld) [Entitic vol] 11.3 fL 9.5-13.5 [facility] Platelets Auto (Bld) [#/Vol] on 11-20-2023 Platelets (Bld) [#/Vol] 255 10 3/uL 150-450 [facility] RBC Auto (Bld) [#/Vol]on RBC (Bld) [#/Vol] 4.50 10 6/uL 4.20-5.40 [facility] Serum or plasma anion gap de terminationon 11-20-2023 Anion gap [Moles/Vol] 12.9 mmol/L [facility] ANTIMICROBIAL SUSCEPT-ANAERO BEon 05-28-2023 FINAL REPORT SEE NOTE Normal [facility] Comment on above: Order Comment: Speci men Type: MICROBIAL ISOLATE Ordering Facility: [facility] Address: [address] [place] [phone] Result Comment: Prev otella bergensis Organism identified [...] method. RUSTY M Beta-Lactamase Neg Performed By: [employer] [address] [place] [address] Office Machine Inspector: Paulino العراقي MD, PhD CLIA Number: [id number] Performed By: #### S USANA #### [facility] CLIA [id number] [address] [place] [address] #### [id number] #### [facility] CLIA [id number] [address] [place] [address] [place] Aerobic Cultureon 05-28-2023 Aerobic Culture Comment Tissue C S R breast Light Normal Skin Aries 2 Days Comment Tissue C S R breast ORGANISM: Prevotella bergensis (O:PREBER) Comments Sent to [facility] for Testing Quantity of Growth Light Growth Antimicrobial susceptibility testing could not be completed due to poor organism growth using the CLSI approved test method. Please see scanned report located in the Laboratory/Scanned Reports section of the EMR. Comment Tissue C S R breast Gram Stain Result No Bacteria Seen PERFORMED BY: [place] [address] PATHOLOGIST SLIDE MAKER JUDY RASMUSSEN M.D. Normal [facility] Comment on above: Performed By: #### A ERC ####[facility] [address]pm[address] Bacterial susceptibility weller el BETTYE (Isol)on 05-28-2023 BLACT Negative Normal [facility] Comment on above: Order Comment: Speci men Type: MICROBIAL ISOLATE Ordering Facility: [facility] Address: [address] [place] [phone] Performed By: #### S USANA #### [facility] CLIA [id number] [address] [place] [address] #### [id number] #### [facility] CLIA [id number] [address] [place] [address] [place] Microorganism identified Cx Nom (Unsp spec) [id number] Abnormal [facility] Comment on above: Order Comment: Speci men Type: MICROBIAL ISOLATE Ordering Facility: [facility] Address: [address] [place] [phone] Result Comment: Prev otella bergensis Susceptibility results have been completed by FRANKLYN. Performed By: #### S USANA #### [facility] CLIA [id number] [address] [place] [address] #### [id number] #### [facility] CLIA [id number] [address] [facility] [id number] [place] [address] [place] Basic Metabolic Panelon - Creatinine Clr Calc Pharmacy 44.56 Normal [facility] Comment on above: Result Comment: PERF ORMED BY: [place] [address] PATHOLOGIST SLIDE MAKER JUDY RASMUSSEN M.D. Performed By: #### B MP #### [address] GFR/1.73 sq M.predicted MDRD (S/P/Bld) [Vol rate/Area] mL/min/{1.73_m2} Normal [facility] Comment on above: Performed By: #### B MP #### [place] [address] [place] Calcium [Mass/volume] in Ser um or PlasmaOrdered By: Shine Lea on 05-28-2023 Calcium [Mass/Vol] 9.3 mg/dL Normal 8.6-10.3 [facility] Comment on above: Performed By: #### B MP #### [facility] [address] [place] [address] [place] Carbon dioxide, total [Moles /volume] in Serum or PlasmaOrdered By: Shine Lea on 05-28-2023 CO2 [Moles/Vol] 22.9 mmol/L Normal 21.0-31.0 [facility] Comment on above: Performed By: #### B MP #### [facility] [address] [place] [address] [place] Chloride [Moles/volume] in S tyron or PlasmaOrdered By: Shine Lea on 05-28-2023 Chloride [Moles/Vol] 109 mmol/L High 98-107 [facility] Comment on above: Performed By: #### B MP #### [facility] [address] Creatinine [Mass/volume] in Serum or PlasmaOrdered By: Shine Lea on 05-28-2023 Creatinine [Mass/Vol] 0.89 mg/dL Normal 0.60-1.20 [facility] Comment on above: Performed By: #### B MP #### [facility] [address] Glucose [Mass/volume] in Ser um or PlasmaOrdered By: Shine Lea on 05-28-2023 Glucose [Mass/Vol] 113 mg/dL High 70-100 [facility] Comment on above: ADA recommended refe rence rangeRandom Glucose Reference Range is dependent on time and content of last meal. Glucose of more than 200 mg/dL in a nonstressed, ambulatory subject supports the diagnosis of Diabetes Mellitus. Result Comment: Gordon om Glucose Reference Range is dependent on time and content of last meal. Glucose of more than 200 mg/dL in a nonstressed, ambulatory subject supports the diagnosis of Diabetes Mellitus. ADA recommended reference range Performed By: #### B MP #### [facility] [address] [place] 05-28-2023 L ----- Specimen: [id number] Received: 05/28/23 Status: HAMZAH Barajas Num: [id number] Spec Type: Surgical Subm Dr: Luis Angel Saucedo MD Tissues: A Debridement-Skin/Other Than Skin (POD RT BRST) Procedures: HE, Gross/Micro L3 Age/ Patient Sex Location Account Attending Physician Nora Gibbs 83/F [place] [id number] Luis Angel Saucedo MD SPEC NUM: [id number] RECD: 05/28/23 STATUS: HAMZAH MONREALMarsha NUM: [id number] NEDA: 05/28/[address] [facility] [address]: Luis Angel Saucedo MD ENTERED: 05/28/[address] [facility] [address]: DELMIS TYPE: Surgical DEPT: S ENTERED BY: [id number] RECV BY: [id number] ORDERED: HE, Gross/Micro L3 ORDERED: HE, Gross/Micro [...] The microscopic examination confirms the diagnosis. Specimen: [id number] Received: 05/28/23 Status: HAMZAH Barajas Num: [id number] Spec Type: Surgical Subm Dr: Luis Angel Saucedo MD Tissues: A Debridement-Skin/Other Than Skin (POD RT BRST) Procedures: ISIDORO, Gross/Micro L3 Patient: Nora Gibbs [id number] (Continued) Specimen: [id number] Received: 05/28/23 (Continued) Signed (signature on file) Zacarias Hunt MD 05/29/23 1548 Specimen: [id number] Received: 05/28/23 Status: HAMZAH Barajas Num: [id number] Spec Type: Surgical Subm Dr: Luis Angel Saucedo MD Tissues: A Debridement-Skin/Other Than Skin (POD RT BRST) Procedures: ISIDORO, Jay/Savanna L3 Patient: Nora Gibbs [id number] (Continued) Specimen: [id number] Received: 05/28/23 (Continued) CPT Codes 55433 Specimen: [id number] Received: 05/28/23 Status: HAMZAH Barajas Num: [id number] Spec Type: Surgical Subm Dr: Luis Angel Saucedo MD Tissues: A Debridement-Skin/Other Than Skin (POD RT BRST) Procedures: ISIDORO, Gross/Savanna L3 Patient: Nora Gibbs Marianne [id number] (Continued) Signed (signature on file) Zacarias Hunt MD 05/29/23 1548 Normal [facility] Microorganism identified Cx Nom (Unsp spec)on 05-28-2023 CULTURE, ORGANISM ID ANAEROBE [id number] Abnormal [facility] Comment on above: Order Comment: Speci men Type: MICROBIAL ISOLATE Ordering Facility: [facility] Address: [address] [place] [phone] Result Comment: Prev otella bergensis Performed By: #### 1 1475-1 #### [facility] CLIA [id number] [address] [place] [address] [address] [place] No Panel InformationOrdered By: Shine Lea on 05-28-2023 Estimated GFR (CKD-EPI) > 60.0 mL/Min [facility] Creatinine Clearance (Chem 44.56 [facility] Potassium [Moles/volume] in Serum or PlasmaOrdered By: Shine Verduzcoain on 05-28-2023 Potassium [Moles/Vol] 4.1 mmol/L Normal 3.5-5.1 [facility] Comment on above: Performed By: #### B MP #### [facility] [address] Serum or plasma anion gap de terminationOrdered By: Shine Verduzcoain on 05-28-2023 Anion gap [Moles/Vol] 12.2 mmol/L Normal 6.0-15.0 [facility] Comment on above: Performed By: #### B MP #### [facility] [address] Sodium [Moles/volume] in Ser um or PlasmaOrdered By: Shine Verduzcoain on 05-28-2023 Sodium [Moles/Vol] 140 mmol/L Normal 136-145 [facility] Comment on above: Performed By: #### B MP #### [facility] [address] Urea nitrogen [Mass/volume] in Serum or PlasmaOrdered By: Shine Verduzcoain on 05-28-2023 Urea nitrogen [Mass/Vol] 25 mg/dL Normal 7-25 [facility] Comment on above: Performed By: #### B MP #### [facility] [address] [place] [address] Automated basophil %Ordered By: Luis Angel Saucedo on 05-17-2023 Basophils/100 WBC (Bld) 0.7 % Normal . [facility] Comment on above: Performed By: #### C BC, BMP ####[facility] Ezl[address] Automated basophil countOrde red By: Luis Angel Saucedo on 05-17-2023 Basophils (Bld) [#/Vol] 0.1 10*3/uL Normal 0.0-0.2 [facility] Comment on above: Result Comment: PERF ORMED BY: [facility] [address] [facility] [place] [address] PATHOLOGIST SLIDE MAKER JUDY RASMUSSEN M.D. Performed By: #### C BC, BMP ####[address] Automated blood monocyte cou ntOrdered By: Luis Angel Saucedo on 05-17-2023 Monocytes (Bld) [#/Vol] 1.0 10*3/uL High 0.0-0.8 [facility] Comment on above: Performed By: #### C BC, BMP ####[address] Automated eosinophil %Ordere d By: Luis Angel Saucedo on 05-17-2023 Eosinophils/100 WBC (Bld) 1.6 % Normal . [facility] Comment on above: Performed By: #### C BC, BMP ####[address] Automated eosinophil countOr dered By: Luis Angel Saucedo on 05-17-2023 Eosinophils (Bld) [#/Vol] 0.2 10*3/uL Normal 0.0-0.45 [facility] Comment on above: Performed By: #### C TRACY, BMP ####[address] Automated monocyte %Ordered By: Luis Angel Saucedo on 05-17-2023 Monocytes/100 WBC (Bld) 10.3 % Normal . [facility] Comment on above: Performed By: #### C BC, BMP ####[address] Automated neutrophil %Ordere d By: Luis Angel Saucedo on 05-17-2023 Neutrophils/100 WBC (Bld) 72.8 % Normal . [facility] Comment on above: Performed By: #### C BC, BMP ####[address] Basic Metabolic Panelon 12- Anion gap [Moles/Vol] Not performed Normal 6.0-15.0 [facility] Comment on above: Performed By: #### C BC, BMP ####[place] [address] [place] [address] [facility] GFR/1.73 sq M.predicted MDRD (S/P/Bld) [Vol rate/Area] 55.878 mL/min/{1.73_m2} Normal [facility] Comment on above: Performed By: #### C BC, BMP ####[place] [id number] [facility] Potassium Normal 3.5-5.1 [facility] Comment on above: Result Comment: Spec imen hemolyzed, callback initiated if needed Performed By: #### C BC, BMP ####[place] [address] [place] [id number] [facility] Calcium [Mass/volume] in Ser um or PlasmaOrdered By: Luis Angel Saucedo on 05-17-2023 Calcium [Mass/Vol] 9.8 mg/dL Normal 8.6-10.3 [facility] Comment on above: Result Comment: PERF ORMED BY: [facility] [address] [place] [id number] PATHOLOGIST SLIDE MAKER JUDY RASMUSSEN M.D. Performed By: #### C BC, BMP ####[place] [id number] [facility] Carbon dioxide, total [Moles /volume] in Serum or PlasmaOrdered By: Luis Angel Saucedo on 05-17-2023 CO2 [Moles/Vol] 25.5 mmol/L Normal 21.0-31.0 [facility] Comment on above: Performed By: #### C BC, BMP ####[place] [address] [place] [address] [facility] Chloride [Moles/volume] in S tyron or PlasmaOrdered By: Luis Angel Saucedo on 05-17-2023 Chloride [Moles/Vol] 108 mmol/L High 98-107 [facility] Comment on above: Performed By: #### C BC, BMP ####[place] [id number] [facility] Complete Blood Count Auto Di ffon 05-17-2023 Mean Corpuscular HGB Conc 33.3 g/dL Normal 32.0-35.0 [facility] Comment on above: Performed By: #### C TRACY, BMP ####[place] [address] NRBC% 0.1 /100{WBC} Normal 0-0.[address] [facility] Comment on above: Performed By: #### C TRACY, BMP ####[place] [address] Creatinine [Mass/volume] in Serum or PlasmaOrdered By: Luis Angel Saucedo on 05-17-2023 Creatinine [Mass/Vol] 0.99 mg/dL Normal 0.60-1.20 [facility] Comment on above: Performed By: #### C TRACY, BMP ####[address] ECG 12 lead ECGon 05-17-2023 ECG 12 lead ECG [facility] [place] [address] [place] [address] Electrocardiograph Report Signed Patient: Nora Gibbs MR#: [id number] : 1940 Acct:[id number] Age/Sex: 83 / F ADM Date: 05/17/23 Loc: Room: Type: [facility] Attending Dr: Luis Angel Saucedo MD [...] change was found Confirmed by [facility] ([id number]) on 05/17/2023 3:19:51 PM Referred By: LEWIS Electronically Signed By:STEFANIE ANTONY MD [facility] Transcribed By: MUS Signed By Stefanie Antony MD, [facility] 05/17/23 1519 Normal [facility] Erythrocyte distribution wid th [Ratio] by Automated countOrdered By: Luis Angel Saucedo on 05-17-2023 Erythrocyte distribution width (RBC) [Ratio] 14.3 % Normal 11.9-15.3 [facility] Comment on above: Performed By: #### C BC, BMP ####[place] [address] [place] [id number] [facility] Erythrocytes [#/volume] in B lood by Automated countOrdered By: Luis Angel Saucedo on 05-17-2023 RBC (Bld) [#/Vol] 4.16 10*6/uL Normal 3.60-5.00 [facility] Comment on above: Performed By: #### C TRACY, BMP ####[place] [address] [place] [address] [facility] Glucose [Mass/volume] in Ser um or PlasmaOrdered By: Luis Angel Saucedo on 05-17-2023 Glucose [Mass/Vol] 101 mg/dL High 70-100 [facility] Comment on above: ADA recommended refe rence rangeRandom Glucose Reference Range is dependent on time and content of last meal. Glucose of more than 200 mg/dL in a nonstressed, ambulatory subject supports the diagnosis of Diabetes Mellitus. Result Comment: Gordon om Glucose Reference Range is dependent on time and content of last meal. Glucose of more than 200 mg/dL in a nonstressed, ambulatory subject supports the diagnosis of Diabetes Mellitus. ADA recommended reference range Performed By: #### C BC, BMP ####[place] [address] [place] [address] [facility] Hematocrit [Volume Fraction] of Blood by Automated countOrdered By: Luis Angel Saucedo on 05-17-2023 Hematocrit (Bld) [Volume fraction] 36.6 % Normal 34.0-46.4 [facility] Comment on above: Performed By: #### C BC, BMP ####[place] [address] [place] [address] [facility] Hemoglobin [Mass/volume] in BloodOrdered By: Luis Angel Saucedo on 05-17-2023 Hemoglobin (Bld) [Mass/Vol] 12.2 g/dL Normal 11.8-15.4 [facility] Comment on above: Performed By: #### C TRACY, BMP ####[facility] [place], [place] [id number] [facility] Leukocytes [#/volume] correc katia for nucleated erythrocytes in Blood by Automated counOrdered By: Luis Angel Saucedo on 05-17-2023 WBC corrected for nucl RBC Auto (Bld) [#/Vol] 10.1 10*3/uL 3.8-11.6 [facility] Leukocytes [#/volume] in Blo od by Automated countOrdered By: Luis Angel Saucedo on 05-17-2023 WBC (Bld) [#/Vol] 10.1 10*3/uL Normal 3.8-11.6 [facility] Comment on above: Performed By: #### C TRACY, BMP ####[place] [id number] [facility] Lymphocytes [#/volume] in Bl ood by Automated countOrdered By: Luis Angel Saucedo on 05-17-2023 Lymphocytes (Bld) [#/Vol] 1.5 10*3/uL Normal 1.00-4.8 [facility] Comment on above: Performed By: #### C TRACY, BMP ####[place] [id number] [facility] Lymphocytes/100 leukocytes i n Blood by Automated countOrdered By: Luis Angel Saucedo on 05-17-2023 Lymphocytes/100 WBC (Bld) 14.6 % Normal . [facility] Comment on above: Performed By: #### C TRACY, BMP ####[place] [id number] [place] MCH [Entitic mass] by Automa katia countOrdered By: Luis Angel Saucedo on 05-17-2023 MCH (RBC) [Entitic mass] 29.4 pg Normal 24.7-34.3 [facility] Comment on above: Performed By: #### C TRACY, BMP ####[place] [address] [place] [id number] [facility] MCHC Auto (RBC) [Mass/Vol]Or dered By: Luis Angel Saucedo on 05-17-2023 MCHC (RBC) [Mass/Vol] 33.3 g/dL 32.0-35.0 [facility] MCV [Entitic volume] by Auto mated countOrdered By: Luis Angel Saucedo on 05-17-2023 MCV (RBC) [Entitic vol] 88.1 fL Normal 80-100 [facility] Comment on above: Performed By: #### C TRACY, BMP ####[place] [address] Neutrophils [#/volume] in Bl ood by Automated countOrdered By: Luis Angel Saucedo on 05-17-2023 Neutrophils (Bld) [#/Vol] 7.3 10*3/uL Normal 1.8-7.7 [facility] Comment on above: Performed By: #### C TRACY, BMP ####[address] No Panel InformationOrdered By: Luis Angel Saucedo on 05-17-2023 Estimated GFR (CKD-EPI) 55.878 mL/Min [facility] Creatinine Clearance (Chem N/A [facility] Nucleated erythrocytes [Pres ence] in Blood by Automated countOrdered By: Luis Angel Saucedo on 05-17-2023 Nucleated RBC Auto Ql (Bld) 0.1 /100{WBC} 0-0.5 [facility] Platelet mean volume [Entiti c volume] in Blood by Automated countOrdered By: Luis Angel Saucedo on 05-17-2023 Platelet mean volume (Bld) [Entitic vol] 10.6 fL Normal 6.3-10.7 [facility] Comment on above: Performed By: #### C TRACY, BMP ####[place] [address] Platelets [#/volume] in Bloo d by Automated countOrdered By: Luis Angel Saucedo on 05-17-2023 Platelets (Bld) [#/Vol] 228 10*3/uL Normal 150-450 [facility] Comment on above: Performed By: #### C TRACY, BMP ####[address] [place] [address] [facility] Potassium [Moles/volume] in Serum or PlasmaOrdered By: Luis Angel Saucedo on 05-17-2023 Potassium [Moles/Vol] See comment 3.5-5.1 [facility] Comment on above: Specimen hemolyzed, callback initiated if needed Serum or plasma anion gap de terminationOrdered By: Luis Angel Saucedo on 05-17-2023 Anion gap [Moles/Vol] TNP [facility] Comment on above: Test not performed Sodium [Moles/volume] in Ser um or PlasmaOrdered By: Luis Angel Saucedo on 05-17-2023 Sodium [Moles/Vol] 141 mmol/L Normal 136-145 [facility] Comment on above: Performed By: #### C TRACY, BMP ####[address] [place] [id number] [facility] Urea nitrogen [Mass/volume] in Serum or PlasmaOrdered By: Luis Angel Saucedo on 05-17-2023 Urea nitrogen [Mass/Vol] 19 mg/dL Normal 7-25 [facility] Comment on above: Performed By: #### C TRACY, BMP ####[address] [place] [address] [facility] Physician Referralon 023 Physician Referral [phone] [id number] Normal [facility] CULTURE WOUNDon 08-17-2022 CULTURE WOUND Culture Observations : LIGHT GROWTH OF NORMAL SKIN ARIES. Culture Observations: NO GROWTH OF ANAEROBES AT 72 HOURS. Normal [facility] Comment on above: Performed By: #### W OUNDCX #### [facility] [address] [address] [address] Michael Hunt MG MAMM DIAGNOSTIC 3D GERARDO CA Don 08-17-2022 MG MAMM DIAGNOSTIC 3D GERARDO CAD Patient: NORA GIBBS Exam Date: 08/17/2022 : 1940 Gender:F Ordering : DR NOBLE HAYES D.O. Admission #: [id number] Family : Order #: [id number] CLICK HERE TO VIEW EXAM RADIOLOGY REPORT [...] liver/uterine cancer at age 62. LOCATION: [facility] BREAST COMPOSITION: Scattered areas fibroglandular [...] MD on 08/17/2022 at 14:32 Normal [facility] US BREAST RIGHT LIMITEDon US BREAST RIGHT LIMITED Patient: NORA GIBBS Exam Date: 08/17/2022 : 1940 Gender:F Ordering : DR NOBLE HAYES D.O. Admission #: [id number] Family : Order #: [id number] CLICK HERE TO VIEW EXAM RADIOLOGY REPORT [...] liver/uterine cancer at age 62. LOCATION: [facility] BREAST COMPOSITION: Scattered areas fibroglandular [...] MD on 08/17/2022 at 14:32 Normal [facility] US BREAST RIGHT LIMITED [employer] Other CBC AUTO DIFFon 01-26-2022 BASO # 0.1 103/ul Normal 0.0-0.1 [facility] Comment on above: Performed By: #### C BC #### [facility] [address] [place] [address] Dr. Michael Hunt Basophils/100 WBC (Bld) 0.4 % Normal 0.2-2.0 [facility] Comment on above: Performed By: #### C BC #### [facility] [address] [place] [address] Dr. Michael Hunt EO # 0.3 103/ul Normal 0.0-0.7 [facility] Comment on above: Performed By: #### C BC #### [facility] [address] [place] [address] Dr. Michael Hunt Eosinophils/100 WBC (Bld) 2.5 % Normal 0.9-7.0 [facility] Comment on above: Performed By: #### C BC #### [facility] [address] [place] [address] Dr. Michael Hunt Erythrocyte distribution width (RBC) [Ratio] 14.9 % Normal 11.0-15.0 [facility] Comment on above: Performed By: #### C BC #### [facility] [address] [place] [address] Dr. Michael Hunt Hematocrit (Bld) [Volume fraction] 37.0 % Normal 36.0-48.0 [facility] Comment on above: Performed By: #### C BC #### [facility] [address] [place] [address] Dr. Michael Hunt Hemoglobin (Bld) [Mass/Vol] 11.9 g/dL Critically low 12.0-16.0 [facility] Comment on above: Performed By: #### C BC #### [facility] [address] [place] [address] Dr. Michael Hunt IG # 0.06 10e3/ul Critically high 0.00-0.03 [facility] Comment on above: Performed By: #### C BC #### [facility] [address] [place] [address] Dr. Michael Hunt IG % 0.5 % Normal 0.0-0.5 [facility] Comment on above: Performed By: #### C BC #### [facility] [address] [place] [address] Dr. Michael Hunt LYMPH # 1.7 103/ul Normal 1.2-3.8 [facility] Comment on above: Performed By: #### C BC #### [facility] [address] [place] [address] Dr. Michael Hunt Lymphocytes/100 WBC (Bld) 15.5 % Critically low 20.5-60.0 [facility] Comment on above: Performed By: #### C BC #### [facility] [address] [place] [address] Dr. Michael Hunt MANUAL DIFF REQ NO Normal [facility] Comment on above: Performed By: #### C BC #### [facility] [address] [place] [address] Dr. Michael Hunt MCH (RBC) [Entitic mass] 29.2 pg Normal 26.7-34.0 [facility] Comment on above: Performed By: #### C BC #### [facility] [address] [place] [address] Dr. Michael Hunt MCHC (RBC) [Mass/Vol] 32.2 g/dL Normal 29.9-35.2 [facility] Comment on above: Performed By: #### C BC #### [facility] [address] [place] [address] Dr. Michael Hunt MCV (RBC) [Entitic vol] 90.9 fL Normal 81.0-99.0 [facility] Comment on above: Performed By: #### C BC #### [facility] [address] [place] [address] Dr. Michael Hunt MONO # 1.2 103/ul Critically high 0.3-0.8 [facility] Comment on above: Performed By: #### C BC #### [facility] [address] [place] [address] Dr. Michael Hunt Monocytes/100 WBC (Bld) 11.0 % Normal 1.7-12.0 [facility] Comment on above: Performed By: #### C BC #### [facility] [address] [place] [address] Dr. Michael Hunt NEUT # 7.8 103/ul Critically high 1.4-6.[address] [facility] Comment on above: Performed By: #### C BC #### [facility] [address] [place] [address] Dr. Michael Hunt Neutrophils/100 WBC (Bld) 70.1 % Normal 43.0-75.0 [facility] Comment on above: Performed By: #### C BC #### [facility] [address] [place] [address] Dr. Michael Hunt Platelet mean volume (Bld) [Entitic vol] 10.2 fL Normal 9.5-13.5 [facility] Comment on above: Performed By: #### C BC #### [facility] [address] [place] [address] Dr. Michael Hunt PLT 245 103/ul Normal 150-450 [facility] Comment on above: Performed By: #### C BC #### [facility] [address] [place] [address] Dr. Michael Hunt RBC 4.07 106/ul Critically low 4.20-5.[address] [facility] Comment on above: Performed By: #### C BC #### [facility] [address] [place] [address] Dr. Michael Hunt WBC 11.1 103/ul Critically high 4.0-11.0 [facility] Comment on above: Performed By: #### C BC #### [facility] [address] [place] [address] Dr. Michael Hunt LIPID PROFILEon 01-26-2022 CHOL-HDL RATIO NORM SEE BELOW Normal [facility] Comment on above: Result Comment: 3.3 - 4.4 LOW RISK 4.4 - 7.1 AVERAGE RISK 7.1 - 11.0 MODERATE RISK >11.0 HIGH RISK Performed By: #### L IPID, ALT, TSH, BMP #### [facility] [address] [place] [address] Dr. Michael Hunt Cholesterol [Mass/Vol] 132 mg/dL Normal <=200 [facility] Comment on above: Performed By: #### L IPID, ALT, TSH, BMP #### [facility] [address] [address] [address] Michael Hunt Cholesterol in HDL [Mass/Vol] 53 mg/dL Normal 40-60 [facility] Comment on above: Performed By: #### L IPID, ALT, TSH, BMP #### [facility] [address] [address] [address] Michael Hunt Cholesterol in LDL [Mass/Vol] 43.0 mg/dL Normal [facility] Comment on above: Performed By: #### L IPID, ALT, TSH, BMP #### [facility] [address] [address] [address] Michael Hunt Cholesterol.total/Chol esterol in HDL [Mass ratio] 2.5 {ratio} Normal [facility] Comment on above: Performed By: #### L IPID, ALT, TSH, BMP #### [facility] [address] [address] [address] Michael Hunt HDL NORMAL > or = 60 mg/dl - LO W CARDIOVASCULAR RISK <40 mg/dl - HIGH CARDIOVASCULAR RISK Normal [facility] Comment on above: Performed By: #### L IPID, ALT, TSH, BMP #### [facility] [address] [place] [address] Dr. Michale Hunt LDL CALC NORMAL SEE BELOW Normal [facility] Comment on above: Result Comment: <100 mg/dl OPTIMAL 100 - 129 mg/dl NEAR OR ABOVE OPTIMAL 130 - 159 mg/dl BORDERLINE HIGH 160 - 189 mg/dl HIGH >190 mg/dl VERY HIGH Performed By: #### L IPID, ALT, TSH, BMP #### [facility] [address] [address] [address] Michael Hunt Triglyceride [Mass/Vol] 180 mg/dL Critically high <=150 [facility] Comment on above: Performed By: #### L IPID, ALT, TSH, BMP #### [facility] [address] [address] [address] Michael Hunt VLDL CALC 36.0 mg/dL Normal [facility] Comment on above: Performed By: #### L IPID, ALT, TSH, BMP #### [facility] [address] [place] [address] Dr. Michael Hunt PROF CHEM 8 (BAS METB)on Anion gap [Moles/Vol] 13.2 mmol/L Normal [facility] Comment on above: Performed By: #### L IPID, ALT, TSH, BMP #### [facility] [address] [place] [address] Dr. Michael Hunt Calcium [Mass/Vol] 9.3 mg/dL Normal 8.5-10.1 [facility] Comment on above: Performed By: #### L IPID, ALT, TSH, BMP #### [facility] [address] [place] [address] Dr. Michael Hunt Chloride [Moles/Vol] 104 mmol/L Normal 98-107 [facility] Comment on above: Performed By: #### L IPID, ALT, TSH, BMP #### [facility] [address] [place] [address] Dr. Michael Hunt CO2 [Moles/Vol] 24.7 mmol/L Normal 21.0-32.0 [facility] Comment on above: Performed By: #### L IPID, ALT, TSH, BMP #### [facility] [address] [place] [address] Dr. Michael Hunt Creatinine [Mass/Vol] 1.20 mg/dL Critically high 0.55-1.02 [facility] Comment on above: Performed By: #### L IPID, ALT, TSH, BMP #### [facility] [address] [place] [address] Dr. Michael Hunt EGFR-AF YEMENI 52 mL/min/1.73m2 Critically low >=60 [facility] Comment on above: Performed By: #### L IPID, ALT, TSH, BMP #### [facility] [address] [place] [address] Dr. Michael Hunt EGFR-NON AF YEMENI 43 mL/min/1.73m2 Critically low >=60 [facility] Comment on above: Performed By: #### L IPID, ALT, TSH, BMP #### [facility] [address] [place] [address] Dr. Michael Hunt Glucose [Mass/Vol] 99 mg/dL Normal 74-106 [facility] Comment on above: Performed By: #### L IPID, ALT, TSH, BMP #### [facility] [address] [place] [address] Dr. Michael Hunt Potassium [Moles/Vol] 4.9 mmol/L Normal 3.5-5.1 [facility] Comment on above: Performed By: #### L IPID, ALT, TSH, BMP #### [facility] [address] [place] [address] Dr. Michael Hunt Sodium [Moles/Vol] 137 mmol/L Normal 136-145 [facility] Comment on above: Performed By: #### L IPID, ALT, TSH, BMP #### [facility] [address] [place] [address] Dr. Michael Hunt Urea nitrogen [Mass/Vol] 30.0 mg/dL Critically high 7.0-18.0 [facility] Comment on above: Performed By: #### L IPID, ALT, TSH, BMP #### [facility] [address] [place] [address] Dr. Michael Hunt Urea nitrogen/Creatinine [Mass ratio] 25.0 mg/mg Normal [facility] Comment on above: Performed By: #### L IPID, ALT, TSH, BMP #### [facility] [address] [place] [address] Dr. Michael Hunt SGPTon 01-26-2022 ALT [Catalytic activity/Vol] 54 U/L Normal 14-59 [facility] Comment on above: Performed By: #### L IPID, ALT, TSH, BMP #### [facility] [address] [place] [address] Dr. Michael Hunt TSHon 01-26-2022 TSH 5.136 uIU/mL Critically high 0.358-3.74 0 [facility] Comment on above: Performed By: #### L IPID, ALT, TSH, BMP #### [facility] [address] [place], [place] [id number] Dr. Michael Hunt Cardiovascular Lab Reporton 09-03-2018 Cardiovascular Lab Report [facility] MR #: [id number] Department of Physician: Bala Zepeda M.D. Division of Service Date: 09/03/2018 Cardiology Birthdate: 1940 Adult Cardiovascular Room #: [facility] [address] [facility]. [address] [place] [address] Cardiovascular Laboratory Report INDICATION: The patient is [...] informed consent. She was brought to the label maker in a fasting state. The right groin area was prepped and draped in usual fashion. Using micropuncture technique, the right common femoral artery was accessed. The inner cannula was advanced and right femoral angiography was performed followed by upsizing to a 6-Cypriot x 11 cm sheath. Access was also obtained using the same technique in the right common femoral vein and a 6-Cypriot x 11 cm sheath was placed. A 6-Cypriot Lee catheter was used for right heart catheterization with measurement of pressures and calculation of cardiac output using the estimated Patricia method. Lee catheter was removed. Bilateral selective coronary angiography was then performed using 6-Cypriot JL4 and JR4 diagnostic catheters. Catheters were removed. Heparin was administered intravenously and therapeutic ACT confirmed during the rest of the procedure and additional heparin given as needed. A 6-Cypriot JR4 guiding catheter was advanced and used [...] atmospheres and post dilated using [place] [employer] [place] 3.0 x 8 mm noncompliant balloon inflated [...] Zepeda M.D. Date Trans: 09/03/2018 02:15 P/jaswinder [id number] Normal [facility] Vital Signs Date Time Vital Sign Value Performing Clinician Facility 02-23-2025 13:29-0400 Body height 154.94 cm ATEME DO Work Phone: [facility] 02-23-2025 13:29-0400 Body mass index (BMI) [Ratio] 33.9 kg/m2 ATEME DO Work Phone: [facility] 02-23-2025 13:29-0400 Body weight 81.41 kg ATEME DO Work Phone: [facility] 02-23-2025 13:29-0400 Diastolic blood pressure 72 mm[Hg] ATEME DO Work Phone: [facility] 02-23-2025 13:29-0400 Heart rate 66 /min ATEME DO Work Phone: [facility] 02-23-2025 13:29-0400 Respiratory rate 24 /min ATEME DO Work Phone: [facility] 02-23-2025 13:29-0400 Systolic blood pressure 151 mm[Hg] ATEME DO Work Phone: [facility] 01-27-2025 10:24-0400 Body height 154.94 cm Noble Ball DO Work Phone: [facility] 01-27-2025 10:24-0400 Body mass index (BMI) [Ratio] 34.2 kg/m2 Noble Ball DO Work Phone: [facility] 01-27-2025 10:24-0400 Body weight 82.1 kg Noble Ball DO Work Phone: [facility] 01-27-2025 10:24-0400 Diastolic blood pressure 84 mm[Hg] Noble Ball DO Work Phone: [facility] 01-27-2025 10:24-0400 Systolic blood pressure 134 mm[Hg] Noble Ball DO Work Phone: [facility] 11-26-2024 11:49-0400 Body height 154.94 cm Noble Ball DO Work Phone: [facility] 11-26-2024 11:49-0400 Body mass index (BMI) [Ratio] 34.4 kg/m2 Noble Ball DO Work Phone: [facility] 11-26-2024 11:49-0400 Body weight 82.55 kg Noble Ball DO Work Phone: [facility] 11-26-2024 11:49-0400 Diastolic blood pressure 89 mm[Hg] Noble Ball DO Work Phone: [facility] 11-26-2024 11:49-0400 Heart rate 56 /min Noble Ball DO Work Phone: [facility] 11-26-2024 11:49-0400 SaO2% (BldA) [Mass fraction] 97 % Noble Ball DO Work Phone: [facility] 11-26-2024 11:49-0400 Systolic blood pressure 139 mm[Hg] Noble Ball DO Work Phone: [facility] 11-19-2024 13:48-0400 Body height 154.94 cm [facility] 11-19-2024 13:48-0400 Body mass index (BMI) [Ratio] 34.5 kg/m2 [facility] 11-19-2024 13:48-0400 Body weight 83 kg [facility] 11-19-2024 13:48-0400 Diastolic blood pressure 69 mm[Hg] [facility] 11-19-2024 13:48-0400 Heart rate 56 /min [facility] 11-19-2024 13:48-0400 Respiratory rate 12 /min [place] 11-19-2024 13:48-0400 Systolic blood pressure 158 mm[Hg] [facility] 10-06-2024 13:34-0400 Body height 154.94 cm [facility] 10-06-2024 13:34-0400 Body mass index (BMI) [Ratio] 34.6 kg/m2 [facility] 10-06-2024 13:34-0400 Body weight 83.17 kg [facility] 10-06-2024 13:34-0400 Diastolic blood pressure 68 mm[Hg] [facility] 10-06-2024 13:34-0400 Heart rate 85 /min [facility] 10-06-2024 13:34-0400 Respiratory rate 24 /min [place] 10-06-2024 13:34-0400 SaO2% (BldA) [Mass fraction] 93 % [facility] 10-06-2024 13:34-0400 Systolic blood pressure 113 mm[Hg] [facility] 08-22-2024 12:02-0400 Body height 154.94 cm [facility] 08-22-2024 12:02-0400 Body mass index (BMI) [Ratio] 34.9 kg/m2 [facility] 08-22-2024 12:02-0400 Body weight 84.02 kg [facility] 08-22-2024 12:02-0400 Diastolic blood pressure 74 mm[Hg] [facility] 08-22-2024 12:02-0400 Heart rate 54 /min [facility] 08-22-2024 12:02-0400 Respiratory rate 16 /min [place] 08-22-2024 12:02-0400 Systolic blood pressure 163 mm[Hg] [facility] 05-27-2024 14:59-0500 Body height 154.94 cm [facility] 05-27-2024 14:59-0500 Body mass index (BMI) [Ratio] 35.2 kg/m2 [facility] 05-27-2024 14:59-0500 Body weight 84.48 kg [facility] 05-27-2024 14:59-0500 Diastolic blood pressure 71 mm[Hg] [facility] 05-27-2024 14:59-0500 Heart rate 62 /min [facility] 05-27-2024 14:59-0500 Respiratory rate 12 /min [place] 05-27-2024 14:59-0500 Systolic blood pressure 156 mm[Hg] [facility] 02-19-2024 10:27-0400 Body height 154.94 cm DO Nika Brown Work Phone: [facility] 02-19-2024 10:27-0400 Body mass index (BMI) [Ratio] 34.7 kg/m2 DO Nika Brown Work Phone: [facility] 02-19-2024 10:27-0400 Body weight 83.46 kg DO Nika Brown Work Phone: [facility] 02-19-2024 10:27-0400 Diastolic blood pressure 66 mm[Hg] DO Nika Brown Work Phone: [facility] 02-19-2024 10:27-0400 Heart rate 60 /min DO Nika Brown Work Phone: [facility] 02-19-2024 10:27-0400 Respiratory rate 20 /min DO Nika Brown Work Phone: [facility] 02-19-2024 10:27-0400 Systolic blood pressure 170 mm[Hg] DO Nika Brown Work Phone: [facility] 12-07-2023 11:49-0400 Body height 154.94 cm DO Nika Brown Work Phone: [facility] 12-07-2023 11:49-0400 Body mass index (BMI) [Ratio] 34.2 kg/m2 DO Nika Brown Work Phone: [facility] 12-07-2023 11:49-0400 Body weight 82.15 kg DO Nika Brown Work Phone: [facility] 12-07-2023 11:49-0400 Diastolic blood pressure 72 mm[Hg] DO Nika Brown Work Phone: [facility] 12-07-2023 11:49-0400 Heart rate 69 /min DO Nika Brown Work Phone: [facility] 12-07-2023 11:49-0400 Respiratory rate 20 /min DO Nika Brown Work Phone: [facility] 12-07-2023 11:49-0400 SaO2% (BldA) [Mass fraction] 98 % DO Nika Brown Work Phone: [facility] 12-07-2023 11:49-0400 Systolic blood pressure 150 mm[Hg] DO Nika Brown Work Phone: [facility] 12-01-2023 15:17-0400 Diastolic blood pressure 72 mm[Hg] DO Nika Brown Work Phone: [facility] 12-01-2023 15:17-0400 Heart rate 60 /min DO Nika Brown Work Phone: [facility] 12-01-2023 15:17-0400 Respiratory rate 20 /min DO Nika Brown Work Phone: [facility] 12-01-2023 15:17-0400 SaO2% (BldA) [Mass fraction] 96 % DO Nika Brown Work Phone: [facility] 12-01-2023 15:17-0400 Systolic blood pressure 137 mm[Hg] DO Nika Brown Work Phone: [facility] 12-01-2023 11:55-0400 Body temperature 97.4 [degF] DO Nika Brown Work Phone: [facility] 12-01-2023 06:08-0400 Body weight 80.5 kg DO Nika Brown Work Phone: [facility] 11-30-2023 15:41-0400 Body height 154.94 cm DO Nika Brown Work Phone: [facility] 11-30-2023 14:47-0400 Diastolic blood pressure 76 mm[Hg] DO Nika Brown Work Phone: [facility] 11-30-2023 14:47-0400 Heart rate 65 /min DO Nika Brown Work Phone: [facility] 11-30-2023 14:47-0400 Respiratory rate 16 /min DO Nika Brown Work Phone: [facility] 11-30-2023 14:47-0400 SaO2% (BldA) [Mass fraction] 97 % DO Nika Brown Work Phone: [facility] 11-30-2023 14:47-0400 Systolic blood pressure 191 mm[Hg] DO Nika Brown Work Phone: [facility] 11-30-2023 10:13-0400 Body height 154.94 cm DO Nika Brown Work Phone: [facility] 11-30-2023 10:13-0400 Body weight 82.1 kg DO Nika Brown Work Phone: [facility] 11-30-2023 10:12-0400 Body temperature 98.6 [degF] DO Nika Brown Work Phone: [facility] 11-19-2023 11:24-0400 Body height 152.4 cm DO Noble Ball Work Phone: [facility] 11-19-2023 11:24-0400 Body mass index (BMI) [Ratio] 35.9 kg/m2 DO Noble Ball Work Phone: [facility] 11-19-2023 11:24-0400 Body weight 83.51 kg DO Noble Ball Work Phone: [facility] 11-19-2023 11:24-0400 Diastolic blood pressure 76 mm[Hg] DO Noble Ball Work Phone: [facility] 11-19-2023 11:24-0400 Heart rate 67 /min DO Noble Ball Work Phone: [facility] 11-19-2023 11:24-0400 Respiratory rate 12 /min DO Noble Ball Work Phone: [facility] 11-19-2023 11:24-0400 SaO2% (BldA) [Mass fraction] 97 % DO Noble Ball Work Phone: [facility] 11-19-2023 11:24-0400 Systolic blood pressure 142 mm[Hg] DO Noble Ball Work Phone: [facility] 08-28-2023 09:48-0400 Body height 152.4 cm DO Noble Ball Work Phone: [facility] 08-28-2023 09:48-0400 Body mass index (BMI) [Ratio] 35.2 kg/m2 DO Noble Ball Work Phone: [facility] 08-28-2023 09:48-0400 Body weight 81.64 kg DO Noble Ball Work Phone: [facility] 08-28-2023 09:24-0400 Body temperature 96.6 [degF] DO Noble Ball Work Phone: [facility] 08-28-2023 09:24-0400 Diastolic blood pressure 57 mm[Hg] DO Noble Ball Work Phone: [facility] 08-28-2023 09:24-0400 Heart rate 65 /min DO Noble Ball Work Phone: [facility] 08-28-2023 09:24-0400 Respiratory rate 18 /min DO Noble Ball Work Phone: [facility] 08-28-2023 09:24-0400 Systolic blood pressure 161 mm[Hg] DO Noble Ball Work Phone: [facility] 08-10-2023 13:57-0500 Body height 152.4 cm DO Noble Ball Work Phone: [facility] 08-10-2023 13:57-0500 Body mass index (BMI) [Ratio] 35.4 kg/m2 DO Noble Ball Work Phone: [facility] 08-10-2023 13:57-0500 Body weight 82.27 kg DO Noble Ball Work Phone: [facility] 08-10-2023 13:57-0500 Diastolic blood pressure 70 mm[Hg] DO Noble Ball Work Phone: [facility] 08-10-2023 13:57-0500 Heart rate 73 /min DO Noble Ball Work Phone: [facility] 08-10-2023 13:57-0500 Respiratory rate 12 /min DO Noble Ball Work Phone: [facility] 08-10-2023 13:57-0500 Systolic blood pressure 150 mm[Hg] DO Noble Ball Work Phone: [facility] 08-07-2023 09:54-0500 Body height 152.4 cm DO Noble Ball Work Phone: [facility] 08-07-2023 09:54-0500 Body mass index (BMI) [Ratio] 35.2 kg/m2 DO Noble Ball Work Phone: [facility] 08-07-2023 09:54-0500 Body weight 81.64 kg DO Noble Ball Work Phone: [facility] 07-16-2023 11:30-0500 Body height 154.94 cm Noble Ball Other [employer] Other 07-16-2023 11:30-0500 Body mass index (BMI) [Ratio] 33.74 kg/m2 Noble Ball Other [employer] Other 07-16-2023 11:30-0500 Body weight 81.01 kg Noble Ball Other [employer] Other 07-16-2023 11:30-0500 Diastolic blood pressure 72 mm[Hg] Noble Ball Other [employer] Other 07-16-2023 11:30-0500 Respiratory rate 12 /min Noble Ball Other [employer] Other 07-16-2023 11:30-0500 Systolic blood pressure 133 mm[Hg] Noble Ball Other [employer] Other 05-28-2023 14:28-0500 Diastolic blood pressure 63 mm[Hg] DO Noble Ball Work Phone: [facility] 05-28-2023 14:28-0500 Heart rate 58 /min DO Noble Ball Work Phone: [facility] 05-28-2023 14:28-0500 Respiratory rate 16 /min DO Noble Ball Work Phone: [facility] 05-28-2023 14:28-0500 SaO2% (BldA) [Mass fraction] 94 % DO Noble Ball Work Phone: [facility] 05-28-2023 14:28-0500 Systolic blood pressure 116 mm[Hg] DO Noble Ball Work Phone: [facility] 05-28-2023 13:22-0500 Inhaled oxygen flow rate 6 L/min DO Noble Ball Work Phone: [facility] 05-28-2023 13:07-0500 Body temperature 97.4 [degF] DO Noble Ball Work Phone: [facility] 05-28-2023 12:32-0500 Body height 154.94 cm DO Noble Ball Work Phone: [facility] 05-28-2023 12:32-0500 Body mass index (BMI) [Ratio] 33.7 kg/m2 DO Noble Ball Work Phone: [facility] 05-28-2023 12:32-0500 Body weight 81 kg DO Noble Ball Work Phone: [facility] 05-15-2023 09:57-0500 Body height 152.4 cm DO Noble Ball Work Phone: [facility] 05-15-2023 09:57-0500 Body mass index (BMI) [Ratio] 35.2 kg/m2 DO Noble Ball Work Phone: [facility] 05-15-2023 09:57-0500 Body weight 81.64 kg DO Noble Ball Work Phone: [facility] 05-15-2023 09:12-0500 Body temperature 98.1 [degF] DO Noble Ball Work Phone: [facility] 05-15-2023 09:12-0500 Diastolic blood pressure 69 mm[Hg] DO Nbole Ball Work Phone: [facility] 05-15-2023 09:12-0500 Heart rate 68 /min DO Noble Ball Work Phone: [facility] 05-15-2023 09:12-0500 Respiratory rate 18 /min DO Noble Ball Work Phone: [facility] 05-15-2023 09:12-0500 Systolic blood pressure 168 mm[Hg] DO Noble Ball Work Phone: [facility] 03-13-2023 14:30-0400 Body height 154.94 cm Noble Ball Other [employer] Other 03-13-2023 14:30-0400 Body mass index (BMI) [Ratio] 34.01 kg/m2 Noble Ball Other [employer] Other 03-13-2023 14:30-0400 Body weight 81.65 kg Noble Ball Other [employer] Other 03-13-2023 14:30-0400 Diastolic blood pressure 62 mm[Hg] Noble Ball Other [employer] Other 03-13-2023 14:30-0400 Systolic blood pressure 122 mm[Hg] Noble Ball Other [employer] Other 12-25-2022 15:45-0400 Body height 154.94 cm Noble Ball Other [employer] Other 12-25-2022 15:45-0400 Body mass index (BMI) [Ratio] 33.97 kg/m2 Noble Ball Other [employer] Other 12-25-2022 15:45-0400 Body weight 81.56 kg Noble Ball Other [employer] Other 12-25-2022 15:45-0400 Diastolic blood pressure 70 mm[Hg] Noble Ball Other [employer] Other 12-25-2022 15:45-0400 Respiratory rate 12 /min Noble Ball Other [employer] Other 12-25-2022 15:45-0400 Systolic blood pressure 147 mm[Hg] Noble Ball Other [employer] Other 09-27-2022 12:00-0400 Body height 154.94 cm Noble Ball Other [employer] Other 09-27-2022 12:00-0400 Body mass index (BMI) [Ratio] 34.5 kg/m2 Noble Ball Other [employer] Other 09-27-2022 12:00-0400 Body weight 82.83 kg Noble Ball Other [employer] Other 09-27-2022 12:00-0400 Diastolic blood pressure 86 mm[Hg] Noble Ball Other [employer] Other 09-27-2022 12:00-0400 Respiratory rate 12 /min Noble Ball Other [employer] Other 09-27-2022 12:00-0400 Systolic blood pressure 122 mm[Hg] Noble Ball Other [employer] Other 08-17-2022 10:15-0500 Body height 154.94 cm Noble Ball Other [employer] Other 08-17-2022 10:15-0500 Body mass index (BMI) [Ratio] 34.91 kg/m2 Noble Ball Other [employer] Other 08-17-2022 10:15-0500 Body weight 83.83 kg Noble Ball Other [employer] Other 08-17-2022 10:15-0500 Diastolic blood pressure 78 mm[Hg] Noble Ball Other [employer] Other 08-17-2022 10:15-0500 Respiratory rate 12 /min Noble Ball Other [employer] Other 08-17-2022 10:15-0500 Systolic blood pressure 116 mm[Hg] Noble Ball Other [employer] Other 08-10-2022 10:15-0500 Body height 154.94 cm Noble Ball Other [employer] Other 08-10-2022 10:15-0500 Body mass index (BMI) [Ratio] 34.91 kg/m2 Noble Ball Other [employer] Other 08-10-2022 10:15-0500 Body weight 83.83 kg Noble Ball Other [employer] Other 08-10-2022 10:15-0500 Diastolic blood pressure 76 mm[Hg] Noble Ball Other [employer] Other 08-10-2022 10:15-0500 Respiratory rate 12 /min Noble Ball Other [employer] Other 08-10-2022 10:15-0500 Systolic blood pressure 112 mm[Hg] Noble Ball Other [employer] Other 10-19-2021 12:57-0400 Body height 157.5 cm Genny Vianey PA-C Work Phone: [facility] 10-19-2021 12:57-0400 Body temperature 97.7 [degF] Genny Vianey PA-C Work Phone: [facility] 10-19-2021 12:57-0400 Body weight 83.28 kg Genny Vianey PA-C Work Phone: [facility] 10-19-2021 12:57-0400 Diastolic blood pressure 52 mm[Hg] Genny Vianey PA-C Work Phone: [facility] 10-19-2021 12:57-0400 Heart rate 69 /min Genny Seguraer PA-C Work Phone: [facility] 10-19-2021 12:57-0400 Respiratory rate 18 /min Genny Seguraer PA-C Work Phone: [facility] 10-19-2021 12:57-0400 SaO2% (BldA) [Mass fraction] 94 % Genny Seguraer PA-C Work Phone: [facility] 10-19-2021 12:57-0400 Systolic blood pressure 164 mm[Hg] Genny Seguraer PA-C Work Phone: [facility] Encounters Encounter Date Encounter Type Care Provider Facility Start: 02-23-2025 End: 02-23-2025 ambulatory Noble Ball DO Work Phone: [facility] Work Phone: Start: 02-23-2025 End: 02-23-2025 Patient encounter procedure Noble Ball DO -[facility] Work Phone: Start: 02-02-2025 End: 02-02-2025 ambulatory Noble Ball DO Work Phone: [facility] Work Phone: Start: 02-02-2025 End: 02-02-2025 Patient encounter procedure Noble Ball DO -[facility] Work Phone: Start: 01-27-2025 End: 01-27-2025 ambulatory Noble Ball DO Work Phone: [facility] Work Phone: Start: 01-27-2025 End: 01-27-2025 Patient encounter procedure Bobby Junior MD -[facility] [place] Work Phone: Start: 12-31-2024 End: 12-31-2024 ambulatory Noble Ball DO Work Phone: [facility] Work Phone: Start: 12-31-2024 End: 12-31-2024 Patient encounter procedure Noble Ball DO -[facility] Work Phone: Start: 12-29-2024 End: 12-29-2024 ambulatory [facility] Start: 12-01-2024 End: 12-01-2024 Patient encounter procedure Noble Hayes DO -[facility] Work Phone: Start: 11-26-2024 End: 11-26-2024 Patient encounter procedure Noble Hayes DO -[facility] Work Phone: Start: 11-24-2024 Non-patient / Non-visit Ly Salas michelle [employer] -[facility] Work Phone: Start: 11-21-2024 Evaluation and manag ement of inpatient [facility] Start: 11-21-2024 ambulatory [facility] Start: 11-21-2024 End: 11-22-2024 Evaluation and management of inpatient [facility] Start: 11-19-2024 End: 11-19-2024 ambulatory [facility] Work Phone: Start: 11-19-2024 End: 11-19-2024 [facility] Work Phone: Start: 11-14-2024 Non-patient / [facility]visit [facility] Work Phone: Start: 10-29-2024 End: 10-29-2024 Patient encounter procedure [facility] Work Phone: Start: 10-09-2024 Non-patient / [facility]-visit [facility] Work Phone: Start: 10-06-2024 End: 10-06-[address] [facility] Work Phone: Start: 10-06-2024 End: 10-06-2024 Patient encounter procedure [facility] Work Phone: Start: 10-06-2024 Non-patient / [facility]visit [facility] Work Phone: Start: 10-04-2024 Non-patient / Non-visit [facility] Work Phone: Start: 09-29-2024 End: 09-29-2024 ambulatory [facility] Work Phone: Start: 09-29-2024 End: 09-29-2024 [facility] encounter [facility] Work Phone: Start: 09-26-2024 End: 09-26-2024 ambulatory [facility] Start: 08-27-2024 End: 08-27-2024 ambulatory [facility] Work Phone: Start: 08-27-2024 End: 08-27-2024 [facility] Work Phone: Start: 08-22-2024 End: 08-22-2024 ambulatory [facility] Work Phone: Start: 08-22-2024 End: 08-22-2024 [facility] Work Phone: Start: 07-28-2024 End: 07-28-[address] [facility] Work Phone: Start: 07-28-2024 End: 07-28-2024 [facility] Work Phone: Start: 07-21-2024 End: 07-21-2024 ambulatory [facility] Start: 06-23-2024 End: 06-23-[address] [facility] Work Phone: Start: 06-23-2024 End: 06-23-2024 [facility] Work Phone: Start: 05-30-2024 Non-patient / Non-visit [facility] Work Phone: Start: 05-27-2024 End: 05-27-2024 [facility] Work Phone: Start: 05-25-2024 Patient encounter procedure [facility] Start: 05-21-2024 End: 05-21-2024 [facility] Work Phone: Start: 04-21-2024 End: 04-21-2024 ambulatory [facility] Work Phone: Start: 04-21-2024 End: 04-21-2024 [facility] Work Phone: Start: 03-19-2024 End: 03-19-2024 ambulatory [facility] Work Phone: Start: 03-19-2024 End: 03-19-2024 [facility] Work Phone: Start: 03-19-2024 End: 03-19-2024 ambulatory [facility] Start: 02-26-2024 Non-patient / [facility]-visit [facility] Work Phone: Start: 02-25-2024 Non-patient / Non-visit [facility] Work Phone: Start: 02-19-2024 End: 02-19-2024 ambulatory DO Nika Fagan Work Phone: [facility] Work Phone: Start: 02-19-2024 End: 02-19-2024 Patient encounter procedure DO Nika Fagan Work Phone: [facility] Work Phone: Start: 02-15-2024 End: 02-15-2024 ambulatory DO Nika Fagan Work Phone: [facility] Work Phone: Start: 02-15-2024 End: 02-15-2024 Patient encounter procedure DO Nika Fagan Work Phone: [facility] Work Phone: Start: 01-24-2024 Non-patient / Non-visit DO Paulina Faagn Work Phone: [facility] Work Phone: Start: 01-17-2024 Non-patient / Non-visit DO Paulina Fagan Work Phone: [facility] Work Phone: Start: 01-14-2024 End: 01-14-2024 ambulatory DO Nika Fagan Work Phone: [facility] Work Phone: Start: 01-14-2024 End: 01-14-2024 Patient encounter procedure DO Nika Fagan Work Phone: [facility] Work Phone: Start: 12-10-2023 End: 12-10-2023 ambulatory DO Nika Fagan Work Phone: [facility] Work Phone: Start: 12-10-2023 End: 12-10-2023 Patient encounter procedure DO Nika Fagan Work Phone: [facility] Work Phone: Start: 12-07-2023 End: 12-07-2023 ambulatory DO Nika Fagan Work Phone: [facility] Work Phone: Start: 12-07-2023 End: 12-07-2023 Patient encounter procedure DO Nika Fagan Work Phone: [facility] Work Phone: Start: 12-03-2023 Non-patient / Non-visit DO Paulina Fagan Work Phone: [facility] Work Phone: Start: 11-30-2023 End: 12-01-2023 Evaluation and management of inpatient DO Nika Fagan Work Phone: [facility] [place] [facility] Work Phone: Start: 11-30-2023 End: 12-01-2023 observation encounter DO Nika Fagan Work Phone: [facility] Work Phone: Start: 11-30-2023 End: 12-01-2023 ambulatory Jim Clay Facility:[facility] Start: 11-20-2023 Non-patient / Non-visit DO Paulina Fagan Work Phone: [facility] Work Phone: Start: 11-19-2023 End: 11-19-2023 ambulatory DO Noble Ball Work Phone: [facility] Work Phone: Start: 11-19-2023 End: 11-19-2023 Patient encounter procedure DO Noble Ball Work Phone: [facility] Work Phone: Start: 11-08-2023 End: 11-08-2023 ambulatory DO Noble Ball Work Phone: [facility] Work Phone: Start: 11-08-2023 End: 11-08-2023 Patient encounter procedure DO Noble Ball Work Phone: [facility] Work Phone: Start: 10-08-2023 End: 10-08-2023 ambulatory DO Noble Ball Work Phone: [facility] Work Phone: Start: 10-08-2023 End: 10-08-2023 Patient encounter procedure DO Noble Ball Work Phone: [facility] Work Phone: Start: 09-06-2023 End: 09-06-2023 ambulatory DO Noble Ball Work Phone: [facility] Work Phone: Start: 09-06-2023 End: 09-06-2023 Patient encounter procedure DO Noble Ball Work Phone: [facility] Work Phone: Start: 08-28-2023 End: 08-28-2023 ambulatory DO Noble Ball Work Phone: [facility] Work Phone: Start: 08-28-2023 End: 08-28-2023 Discharged Recurring DO Noble Ball Work Phone: [facility] [place] Work Phone: Start: 08-10-2023 End: 08-10-2023 Patient encounter procedure DO Noble Ball Work Phone: [facility] Work Phone: Start: 08-06-2023 End: 08-06-2023 Patient encounter procedure DO Noble Ball Work Phone: [facility] Work Phone: Start: 08-06-2023 Non-patient / Non-visit DO Prasanna Hayes Work Phone: [facility] [place] Work Phone: Start: 07-16-2023 End: 07-16-2023 [address] Hayes [address] [facility] [employer] Other Start: 07-16-2023 Office outpatient vi sit 25 minutes Noble Ball [facility] Start: 07-13-2023 End: 07-13-2023 ambulatory Noble Hayes Other [employer] Other Start: 07-13-2023 Telephone encounter Noble Hayes [facility] Start: 07-04-2023 End: 07-04-2023 ambulatory Noble Hayes Other [employer] Other Start: 07-04-2023 Nursing evaluation o f patient and report Noble Hayes [facility] Start: 05-30-2023 End: 05-30-2023 ambulatory Noble Hayes Other [employer] Other Start: 05-30-2023 Nursing evaluation o f patient and report Noble Hayes [facility] Start: 05-28-2023 Telephone encounter Noble Hayes [facility] Start: 05-28-2023 End: 05-28-2023 Admission to same day surgery center DO Noble Hayes Work Phone: [facility] [place] Start: 05-28-2023 End: 05-28-2023 ambulatory DO Noble Hayes Work Phone: [facility] Work Phone: Start: 05-17-2023 End: 05-17-2023 Patient encounter procedure DO Noble Hayes Work Phone: [facility] Work Phone: Start: 05-17-2023 End: 05-17-2023 ambulatory DO Noble Hayes Work Phone: [facility] Work Phone: Start: 05-15-2023 Registered Recurring DO Rajni in Ball Work Phone: [facility] [place] Work Phone: Start: 04-26-2023 End: 04-26-2023 ambulatory Gayle Wade Other [employer] Other Start: 04-26-2023 Nursing evaluation o f patient and report Gayle Wade [facility] Start: 04-10-2023 End: 04-10-2023 ambulatory Noble Hayes Other [employer] Other Start: 04-10-2023 Telephone encounter Noble Hayes [facility] Start: 03-13-2023 End: 03-13-2023 ambulatory Noble Hayes Other [employer] Other Start: 03-13-2023 Patient encounter procedure Noble Hayes [facility] Start: 02-15-2023 End: 02-15-2023 ambulatory Noble Hayes Other [employer] Other Start: 02-15-2023 Nursing evaluation o f patient and report Noble Hayes [facility] Start: 01-26-2023 End: 01-26-2023 ambulatory Noble Hayes Other [employer] Other Start: 01-26-2023 Telephone encounter Noble Hayes FP [facility] Start: 01-21-2023 End: 01-21-2023 ambulatory Noble Hayes Other [employer] Other Start: 01-21-2023 Telephone encounter Noble Hayes FP [facility] Start: 01-17-2023 End: 01-17-2023 ambulatory Noble Hayes Other [employer] Other Start: 01-17-2023 Telephone encounter Noble Ball FP [facility] Start: 01-15-2023 End: 01-15-2023 ambulatory Noble Ball Other [employer] Other Start: 01-15-2023 Nursing evaluation o f patient and report Noble Hayes [facility] Start: 01-02-2023 End: 01-02-2023 ambulatory Noble Ball Other [employer] Other Start: 01-02-2023 Telephone encounter Noble Abigail FP [facility] Start: 12-27-2022 End: 12-27-2022 ambulatory Noble Hayes Other [employer] Other Start: 12-27-2022 Telephone encounter Noble TALAVERA G [facility] Start: 12-26-2022 End: 12-26-2022 ambulatory Noble Hayes Other [employer] Other Start: 12-26-2022 Telephone encounter Noble TALAVERA [facility] Start: 12-25-2022 End: 12-25-2022 ambulatory Noble Hayes Other [employer] Other Start: 12-25-2022 Office outpatient vi sit 25 minutes Noble Hayes [facility] Start: 12-14-2022 End: 12-14-2022 ambulatory Noble Hayes Other [employer] Other Start: 12-14-2022 Nursing evaluation o f patient and report Noble Hayes [facility] Start: 11-13-2022 End: 11-13-2022 ambulatory Noble Hayes Other [employer] Other Start: 11-13-2022 Nursing evaluation o f patient and report Noble Hayes [facility] Start: 11-09-2022 ambulatory RITU DOS SANTOS [...] o f patient and report Noble Hayes [facility] Start: 10-12-2022 End: 10-13-2022 ambulatory RITU DOS SANTOS . [employer] Other Start: 09-27-2022 End: 09-27-2022 ambulatory Noble Hayes Other [employer] Other Start: 09-27-2022 Office outpatient vi sit 25 minutes Noble Hayes [facility] Start: 09-12-2022 End: 09-12-2022 ambulatory Noble Hayes Other [employer] Other Start: 09-12-2022 Nursing evaluation o f patient and report Noble Hayes [facility] Start: 08-23-2022 End: 08-23-2022 ambulatory Noble Hayes Other [employer] Other Start: 08-23-2022 Telephone encounter Noble TALAVERA [facility] Start: 08-22-2022 ambulatory Checo RODRIGEZ Facility : [facility] Start: 08-17-2022 End: 08-18-[address] NOBLE HAYES [employer] Other Start: 08-17-2022 Office outpatient vi sit 15 minutes Noble Abigail [facility] Start: 08-17-2022 Telephone encounter Noble TALAVEAR [facility] Start: 08-10-2022 End: 08-10-2022 ambulatory Noble Hayes Other [employer] Other Start: 08-10-2022 Office outpatient vi sit 15 minutes Noble Abigail [facility] Start: 07-11-2022 End: 07-11-2022 ambulatory Gayle Wade Other [employer] Other Start: 07-11-2022 Nursing evaluation o f patient and report [facility] Start: 01-26-2022 End: 01-27-[address] NOBLE HAYES Facility: Start: 01-24-2022 Adult health examination Solomon Hayes Other [employer] Other Start: 10-19-2021 End: 10-19-2021 ambulatory Genny CAMPOS-C Work Phone: Hematology/Oncology Comment on above: Encounter for screen ing mammogram for malignant neoplasm of breast (Primary Dx) Start: 10-19-2021 End: 10-19-2021 Patient encounter procedure Genny CAMPOS-C Work Phone: [facility] Start: 09-22-2021 Telephone encounter Stephen jimenes MD Work Phone: Hematology/Oncology Comment on above: Orders Start: 05-20-2019 Preoperative cardiovascular examination Noble Hayes Other [employer] Other Start: 09-03-2018 End: 09-04-2018 Patient encounter procedure PROVIDER UNKNOWN Facility:[facility] Start: 08-08-2018 End: 08-09-2018 Patient encounter procedure DEFAULT PHYSICIAN Facility:[facility] Procedures Date Procedure Procedure Detail Performing Clinician Start: 11-30-2023 Duplex scan of lower limb veins DO Nika Fagan Work Phone: Start: 11-30-2023 CT angiography of thorax DO Nika Fagan Work Phone: Start: 11-30-2023 Plain chest X-ray DO Alberto janna Fagan Work Phone: Start: 05-28-2023 Debridement DO Olivia Hayes Work Phone: Start: 10-05-2018 Screening mammography B geraldine Hayes Other Start: 01-05-2016 Pre-surgery evaluation Noble Hayes Other Start: 01-05-2016 Preoperative cardiov ascular examination Noble Hayes Other Depression screening Olivia Hayes Other Plan of Treatment Date Care Activity Detail Author Start: 12-01-2023 End: 12-01-2023 [facility] Start: 11-30-2023 Duplex scan of lower limb veins US venous duplex LE BI [facility] Start: 11-30-2023 US Lower extremity v ein - bilateral [facility] Start: 11-30-2023 End: 11-30-2023 [facility] Start: 11-30-2023 Hospital admission [facility] Start: 05-28-2023 Aerobic Culture Aerobic Culture [facility] Start: 05-28-2023 Anaerobic Culture Anaerobic Culture [facility] Start: 05-28-2023 Microscopic observat ion [Identifier] in Unspecified specimen by Gram stain [facility] Start: 05-28-2023 End: 05-28-2023 [facility] Start: 04-14-2022 DIABETES SCREEN DIABETES SCREEN [facility] Start: 02-09-2022 Influenza vaccination INFLUENZ A (Season Ended) [facility] Start: 07-07-2021 COVID-19 VACCINE (4 - Booster for Pfizer series) COVID-19 VACCINE (4 - Booster for Pfizer series) [facility] Start: 06-11-2021 ADVANCE DIRECTIVE DISCUSSION ADVANCE DIRECTIVE DISCUSSION [facility] Start: 2003 BONE DENSITY BONE DENSITY [facility] Start: 2003 PNEUMOVAX AGE 65 AND OVER WITH 5YR LOOKBACK (#1) PNEUMOVAX AGE 65 AND OVER WITH 5YR LOOKBACK (#1) [facility] Start: 1988 SHINGRIX VACCINE (1 of 2) SHINGRIX VACCINE (1 of 2) [facility] Start: 1957 SHINGRIX VACCINE (1 of 2) SHINGRIX VACCINE (1 of 2) [facility] Start: 1957 Urine microalbumin profile DTAP,TDAP,TD (1 - Tdap) [facility] Start: 1944 PNEUMOCOCCAL: 65+ (1 - PCV) PNEUMOCOCCAL: 65+ (1 - PCV) [facility] Bacteria identified in Unspecified specimen by Aerobe culture [facility] Bacteria identified in Unspecified specimen by Anaerobe culture [facility] Comprehensive metabo lic 2000 panel - Serum or Plasma [facility] CT Chest WO contrast [facility] Patient Education [facility] Work Phone: Patient referral [facility] Work Phone: End: 11-18-2022 Screening mammography bi 2-view breast inc cad KAREN SCREENING Radiology Routine Encounter for screening mammogram for malignant neoplasm of breast 1 Occurrences starting 10/19/2021 until 11/18/2022 [facility] Work Phone: Comment on above: 1 Occurrences starti ng 10/19/2021 until 11/18/2022 XR Pelvis and Hip - bilateral Views [facility] Immunizations Immunization Date Immunization Notes Care Provider Sukhwinder plata 02-23-2025 influenza, high dose seasonal, preservative-free Noble Hayes DO Work Phone: [facility] 02-19-2024 influenza, high dose seasonal, preservative-free DO Nika Fagan Work Phone: [facility] 03-26-2023 influenza virus vaccine, unspecified formulation DO Noble Hayes Work Phone: [facility] 03-26-2023 influenza, high dose seasonal, preservative-free Noble Hayes Other [facility] [employer] Other 03-06-2022 influenza virus vaccine, split virus (incl. purified surface antigen) Noble Hayes Other [facility] [employer] Other 03-06-2022 influenza virus vaccine, unspecified formulation DO Noble Hayes Work Phone: [facility] 03-07-2021 COVID-19 vaccine, ag e 12+ yr (Intoo-Timescape - PURPLE TOP) Genny Winters PA-C Work Phone: [facility] 03-01-2021 influenza virus vaccine, split virus (incl. purified surface antigen) Noble Hayes Other [facility] [employer] Other 03-01-2021 influenza virus vaccine, unspecified formulation DO Noble Hayes Work Phone: [facility] 09-07-2020 COVID-19 vaccine, ag e 12+ yr (PFIZER-BIONTECH - PURPLE TOP) Genny Winters PA-C Work Phone: [facility] 08-16-2020 COVID-19 vaccine, ag e 12+ yr (PFIZER-BIONTECH - PURPLE TOP) Genny Seguraer PA-C Work Phone: [facility] 03-01-2020 influenza virus vaccine, split virus (incl. purified surface antigen) Noble Hayes Other [facility] [employer] Other 03-01-2020 influenza virus vaccine, unspecified formulation DO Noble Hayes Work Phone: [facility] 03-18-2019 influenza virus vaccine, split virus (incl. purified surface antigen) Noble Hayes Other [facility] [employer] Other 03-18-2019 influenza virus vaccine, unspecified formulation DO Noble Hayes Work Phone: [facility] 03-11-2018 influenza virus vaccine, split virus (incl. purified surface antigen) Noble Hayes Other [facility] [employer] Other 03-11-2018 influenza virus vaccine, unspecified formulation DO Noble Hayes Work Phone: [facility] 03-11-2018 Seasonal trivalent influenza vaccine, adjuvanted, preservative free Genny Winters PA-C Work Phone: [facility] 03-27-2017 influenza virus vaccine, split virus (incl. purified surface antigen) Noble Hayes Other [facility] [employer] Other 03-27-2017 influenza virus vaccine, unspecified formulation DO Noble Hayes Work Phone: [facility] 03-27-2017 influenza, high dose seasonal, preservative-free Genny Vianey PA-C Work Phone: [facility] 03-21-2016 influenza virus vaccine, split virus (incl. purified surface antigen) Noble Hayes Other [facility] [employer] Other 03-21-2016 influenza virus vaccine, unspecified formulation DO Noble Hayes Work Phone: [facility] 03-21-2016 influenza, high dose seasonal, preservative-free Genny Vianey PA-C Work Phone: [facility] 03-24-2015 influenza virus vaccine, split virus (incl. purified surface antigen) Noble Hayes Other [facility] [employer] Other 03-24-2015 influenza virus vaccine, unspecified formulation DO Noble Hayes Work Phone: [facility] 03-24-2015 pneumococcal conjuga te vaccine, 13 valent Noble Hayes Other [facility] 03-24-2015 pneumococcal Conjuga te, unspecified formulation; Translations: [Need for prophylactic vaccination against Streptococcus pneumoniae (pneumococcus)] Noble Hayes Other [facility] [employer] Other 04-22-2013 tetanus and diphther ia toxoids, adsorbed, preservative free, for adult use (5 Lf of tetanus toxoid and 2 Lf of diphtheria toxoid) Noble Hayes Other [facility] 04-28-2009 pneumococcal polysaccharide vaccine, 23 valent Noble Hayes Other [facility] Payers Date Payer Category Payer Self-pay [id number] 2014 Private Health Insurance [facility] AARP SUPPLEMENT [id number] 2014-Present [phone] [address] [place] [address] Indemnity [id number] 1996 Medicare MEDICARE MEDICAR E A AND B [id number] 1996-Present [phone] [facility] [address] [place] [address] Medicare [id number] 1959 Medicare [id number] 1959 Unknown [id number] 1938 Unknown [id number] 2.16.840.1.241129.3.579.2 .647 1938 Unknown [id number] 2.16.840.1.862483.3.579.2 .647 1938 Unknown [id number] 2.16.840.1.733140.3.579.2 .727 1938 Unknown [id number] 2.16.840.1.692668.3.579.2 .593 1938 Unknown [id number] 2.16.840.1.192347.3.579.2 .593 1938 Unknown [id number] 2.16.840.1.262628.3.579.2 .593 1938 Unknown [id number] 2.16.840.1.686097.3.579.2 .593 1938 Unknown [id number] 2.16.840.1.502057.3.579.2 .593 1938 Unknown [id number] 2.16.840.1.007637.3.579.2 .593 1938 Unknown [id number] 2.16.840.1.779406.3.579.2 .593 1938 Unknown [id number] 2.16.840.1.546904.3.579.2 .593 1938 Unknown [id number] 2.16.840.1.316613.3.579.2 .593 1938 Unknown [id number] 2.16.840.1.237302.3.579.2 .593 1938 Unknown [id number] 2.16.840.1.581977.3.579.2 .593 1938 Unknown [id number] 2.16.840.1.056547.3.579.2 .593 1938 Unknown [id number] 2.16.840.1.084707.3.579.2 .593 Unknown Unknown [id number] 2.16.840.1.974279.3.579.2 .531 Unknown [id number] 2.16.840.1.094198.3.579.2 .531 Unknown [id number] 2.16.840.1.985700.3.579.2 .531 Unknown [id number] 2.16.840.1.700296.3.579.2 .531 Social History Date Type Detail Facility Start: 11-12-2014 End: 11-30-2023 Tobacco smoking status NHIS Ex-smoker [facility] History of tobacco use [facility] Start: 11-12-2014 Cigarettes smoked current (pack per day) - Reported 1 [facility] Start: 11-12-2014 Tobacco use and exposure Smokeless tobacco non-user [facility] Start: 10-19-2020 End: 10-19-2021 Alcohol intake Current non-drinker of alcohol (finding) [facility] Start: 1940 Sex Assigned At Not on file C [facility] Start: 10-09-2021 End: 10-19-2021 Exposure to SARS-CoV-2 (event) Not sure [facility] End: 11-10-2007 Sex Assigned At [facility] Other Start: 1940 Sex Assigned At Female F [facility] Start: 04-21-2024 End: 11-19-2024 Sex Female (finding) [facility] Goals Date Patient Goal Desired Activity /State Functional Status Date Assessment Result Facility 12-01-2023 Functional status Patient at Baseline [facility] Work Phone: 11-30-2023 Functional status Patient at Baseline [facility] Work Phone: Mental Status Date Assessment Result Facility 12-01-2023 Cognitive function Cognitive Sta tus Patient at Baseline [facility] Work Phone: 11-30-2023 Cognitive function Cognitive Sta tus Patient at Baseline [facility] Work Phone: Clinical Notes 09-22-2021 to 12-29-2024 Note Date & Type Note Facility 12-29-2024 Note [place] [facility] Subjective Nora Gibbs is a 84 [...] failure (CMS/HCC) Shortness of breath CAD in akutan artery Family History Problem Relation Name Age [...] was admitted to the emergency room at [facility] with chest pain, And shortness of breath. [...] leg swelling. Muscul (more content not included)... [facility] 11-26-2024 Evaluation note Diagnosis Onset Date Resolution (HFpEF) heart failure with preserved ejection fraction acute November 26, 2024 11:12am ASHD (arteriosclerotic heart disease) acute November 26, 2024 11:12am Chronic bronchitis acute November 092024 11:12am Hypertension acute November 26, 11:12am Nicotine dependence, cigarettes, in remission acute November 262024 11:12am Obesity acute November 26 11:12am Greater trochanteric bursitis of left hip acute January 9:48am Greater trochanteric bursitis of right hip acute January 9:48am (HFpEF) heart failure with preserved ejection fraction acute February 23, 2025 1:21pm ASHD (arteriosclerotic heart disease) acute February 23, 2025 1:21pm Chronic bronchitis acute 2024 1:21pm Chronic kidney disease acute Se ptember 2024 1:21pm History of breast cancer acute February 23, 2025 1:21pm Hypertension acute February 232024 1:21pm Hypothyroidism acute February 23, 2025 1:21pm Nicotine dependence, cigarettes, in remission acute 2024 1:21pm Obesity acute February 1:21pm [facility] Work Phone: 1(399) 808-371206-14-2025 [facility] 11-22-2024 NoteHospital Medicine Discharge Summary Final Discharge Diagnosis: Coronary artery disease s/p drug-eluting stent to mid circumflex, previous PCI to RCA COPD, not in exacerbation History of breast cancer Hypothyroidism Chronic heart failure with preserved ejection fraction, NYHA class I Admission Diagnosis: Coronary artery disease involving akutan coronary artery of akutan heart with other form of angina pectoris [I25.118] Chronic diastolic congestive heart failure (CMS/HCC) [I50.32] Shortness of breath [R06.02] CAD in akutan artery [I25.10] Hospital course: Nora Gibbs is an 84 y.o. female w a H CAD s/p stent, HTN, and HFpEF who [...] Cath Consultations During Admission: Cardiology Dear DO Abigail Nora is advised to follow up with [...] doxazosin 4 mg tablet Commonly known as: Dawood What changed: how much to take Take [...] oral liquid Commonly known as: Vitamin B-12 phymdmlrbfe-eguuthnlh-jlwnjvuw 200-62.5-25 mcg blister with device Commonly known [...] Medications These [facility] [address] [facility] [address] [place] [address], [facility] [id number] clopidogrel 75 mg tablet doxazosin 4 mg [...] 55, temperature 36.3 ???C (more content not included)...[facility]06-14-2025 NoteUTP CARDIOLOGY INPATIENT PROGRESS NOTE Reason for follow up: CAD s/p stent and post procedure hematoma, HTN HPI: Nora Gibbs is a 84 y.o. female with history of COPD and CAD s/p PIYUSH of the RCA in 2018 with moderate disease in the LCX and [...] and ongoing ASA for life. A 5 Cypriot minx capacitor pack press operator device was used to manage [...] -- 56 16 94 % -- -- 11/21/242 -- -- -- -- -- -- 1.549 m (5' 1 ) -- 11/21/242029 144/63 -- -- 57 22 9 (more content not included)...[facility]06-14-2025 NoteCase was discussed with the FER on 11/21/2024. I agree with the history, physical, assessment, and plan of care. I discussed the findings and therapeutic plan. I agree with the documentation, except for any updates below. Bianca Pierre MDUnFayette County Memorial Hospital06-14-2025 NoteNot in exacerbationUnFayette County Memorial Hospital06-14-2025 Note- Not in exacerbation, continue home inhalersUnFayette [facility] Memorial Hospital 11-22-2024 NoteContinue SynthroidUnFayette County Memorial Hospital06-14-2025 Note- Severe 80% stenosis in the mid circumflex reduced to 0% by a Synergy XD drug-eluting stent -Previous stent to the RCA - DAPT for 12 months, then aspirin 81 mg daily for life. Statin therapy for life. -Follow-up A1c and lipidsUnFayette County Memorial Hospital06-14-2025 Note Hospital Medicine History and Physical 11/22/2024 1:13 AM THE HOSPITALIST TEAM PREFERS TO USE [employer] FOR NON-URGENT COMMUNICATION 7AM-7PM. IF I DO NOT RESPOND WITHIN 20 MINUTES OR URGENT MATTERS, PLEASE CALL THROUGH THE SEED DISTRICT SALES MANAGER. FROM 7PM-7AM, PLEASE PAGE [phone](COVR). Chief Complaint No chief complaint on file. [...] and Plan Assessment & Plan CAD in akutan artery - Severe 80% stenosis in the mid circumflex reduced to 0% by a Synergy XD drug-eluting stent -Previous stent to the RCA - DAPT for 12 months, then aspirin 81 mg daily for life. Statin therapy for life. -Follow-up A1c and lipids Chronic obstructive lung disease (CMS/HCC) - Not in exacerbation, continue home inhalers History of breast cancer Hypothyroidism Continue Synthroid Chronic diastolic congestive heart failure (CMS/HCC) Not in exacerbation VTE Prophylaxis: Subcutaneous heparin [...] this hospital stay by a member of [facility]. Past Medical History Medical History[1] [...] quittin.4 Smokeless tobacco: Neve (more content not included)...[facility]06-13-2025 NotePatient: Nora Gibbs Procedure Information Date/Time: 11/21/24 1330 Procedures: Coronary angiography - NPCR Right heart cath Location: [facility] 3 / [facility] (Cath) Providers: Bala Zepeda MD Clinical information reviewed: Allergies Meds Physical Exam Airway Mallampati: III TM distance: >3 FB Cardiovascular Dental Pulmonary Neurological Abdominal Anesthesia Plan ASA 3 other (Moderate sedation ) Additional Equipment RequestsMercy [facility] Hospital06-11-2025 Evaluation note* Diagnosis Onset Date Resolution Status Admit Date (HFpEF) heart failure with preserved ejection fraction acute November 19, 2024 1:43pm ASHD (arteriosclerotic heart disease) acute November 19, 2024 1:43pm Chronic bronchitis acute November 092024 1:43pm Hypertension acute November 19 025 1:43pm Hypothyroidism acute November 19, 2024 1:43pm Nicotine dependence, cigaret shawn, in remission acute November 19, 2024 1:43pm Obesity acute November 19 1:43pm (HFpEF) heart failure with preserved ejection fraction acute November 26, 2024 11:12am ASHD (arteriosclerotic heart disease) acute November 26, 2024 11:12am Chronic bronchitis acute November 092024 11:12am Hypertension acute November 26, 2 025 11:12am Nicotine dependence, cigaret shawn, in remission acute November 26, 2024 11:12am Obesity acute November 26 11:12am Greater trochanteric bursiti s of left hip acute January 27 9:48am Greater trochanteric bursiti s of right hip acute January 27 9:48am [facility] Work Phone: 1(282) 555-833004-28-2025 Evaluation note* Diagnosis Onset Date Resolution Status Admit Date ASHD (arteriosclerotic heart disease) acute October 06, 2024 1:19pm Chronic bronchitis acute October 06, 2024 1:19pm Hypertension acute October 06, 2024 1:19pm Hypertensive chronic kidney disease acute October 06, 2024 1:19pm Chronic obstructive pulmonar y disease with (acute) lower respiratory infection noneactive September 1:19pm Acute exacerbation of chroni c obstructive airways disease noneactive Apr2024 1:19pm (HFpEF) heart failure with preserved ejection fraction acute November 19, 2024 1:43pm ASHD (arteriosclerotic heart disease) acute November 19, 2024 1:43pm Chronic bronchitis acute November 092024 1:43pm Hypertension acute November 19, 025 1:43pm Hypothyroidism acute November 19, 2024 [...] 262024 11:12am Obesity acute November 26 11:12am [facility] Work Phone: 1(693) 760-903004-18-2025 NoteUT Cardiology - [facility] Subjective Nora Gibbs is a 84 [...] was admitted to the emergency room at [facility] with chest pain, And shortness of breath. [...] evaluated in our office on 03/19/2024 by CYTOMETRY TECHNOLOGIST Stefanie Hutchins and Imdur was increased to [...] m (5' 1 ) (more content not included)...[facility]03-14-2025 Evaluation note* Diagnosis Onset Date Resolution Status Admit Date (HFpEF) heart failure with preserved ejection fraction acute 2024 11:22am ASHD (arteriosclerotic heart disease) acute August 22, 2024 11:22am Chronic bronchitis acute August 22, 2024 11:22am Hypertension acute August 22, 2024 11:22am Hypothyroidism acute August 11:22am Nicotine dependence, cigaret shawn, in remission acute August 22, 2024 11:22am Obesity acute August 22 11:22am Stage 3a chronic kidney disease acut e August 22, 2024 11:22am [facility] Work Phone: 1(480) 122-640203-14-2025 Evaluation note* Diagnosis Onset Date Resolution Status Admit Date (HFpEF) heart failure with preserved ejection fraction acute Celestino 2024 11:22am ASHD (arteriosclerotic heart disease) acute [...] 192024 1:43pm Obesity acute November 19 1:43pm [facility] Work Phone: 1(931) 329-826802-10-2025 NoteUT Cardiology - [facility] Subjective Nora Gibbs is a 84 [...] was admitted to the emergency room at [facility] with chest pain, And shortness of breath. [...] and dry. Neurological: Gene (more content not included)...[facility]12-17-2024 Evaluation note* Diagnosis Onset Date Resolution Status [...] 2:50pm Nicotine dependence, cigarettes, [facility] Obesity acute May 27, 2024 2:50pm Screening mammogram for láz[facility] cancer acute May 27, 2 024 2:50pm Stage 3a chronic kidney disease acut e May 27, 2024 2:50pm [facility] Work Phone: 1(550) 353-356812-17-2024 Evaluation note* Diagnosis Onset Date Resolution Status [...] 2:50pm Nicotine dependence, cigarettes, in [facility] 2:50[facility] Obesity acute May 27, 2024 2:50pm Screening mammogram for láz[address] [facility] cancer acute May 27, 2 024 2:50pm Stage 3a chronic kidney disease acut e May 27, 2024 2:50pm (HFpEF) heart failure with preserved ejection fraction acute Celestino 2024 11:22am ASHD (arteriosclerotic heart disease) acute August 22, 2024 11:22am Chronic bronchitis acute August 22, 2024 11:22am Hypertension acute August 22, 2024 11:22am Hypothyroidism acute August 11:22am Nicotine dependence, cigarettes, in remission acute August 092024 11:22am Obesity acute August 22 11:22am Stage 3a chronic kidney disease acut e August 22, 2024 11:22am [facility] Work Phone: 1(986) 202-518810-09-2024 NoteCardiovascular Medicine [facility] SUBJECTIVE Chief Complaint Patient presents with [...] edema Past Medical History: Diagnosis Date Cancer ([facility]) COPD (chronic obstructive pulmonary disease) ([facility]) Coronary artery disease Hypertension Family History Problem [...] at bedtime., Disp: 90 tablet, Rfl: 3 nkurnzrwnge-wmsnbpkzz-nnkzksuf 200-62.5-25 mcg blister with device, INHALE 1 [...] Movements: Extraocular movements intac (more content not included)...[facility]10-09-2024 NotePatient here for 3 mo follow up [...] myalgias. All other systems reviewed and are negative.[facility] 02-19-2024 Evaluation note* Diagnosis Onset Date Resolution Status Admit Date (HFpEF) heart failure with preserved ejection fraction acute Feb 10:17am ASHD (arteriosclerotic heart disease) acute February 19, 2024 10:17am Chronic bronchitis acute Septem brandi 2023 10:17am Hypothyroidism acute February 19, 2024 10:17am Nicotine dependence, cigarettes, in remission acute Septemb er 2023 10:17am Obesity acute February 10:17am Stage 3a chronic kidney disease acut e February 19, 2024 10:17am [facility] Work Phone: 1(644) 997-977609-10-2024 Evaluation note* Diagnosis Onset Date Resolution Status Chest pain resolved ASHD (arteriosclerotic heart disease) acute Stage 3a chronic kidney disease acute Chest pain resolved (HFpEF) heart failure with preserved ejection fraction acute ASHD (arteriosclerotic heart disease) acute Stage 3a chronic kidney disease acute [facility] Work Phone: 1(274) 503-722609-06-2024 Evaluation note* Diagnosis Onset Date Resolution Status ASHD (arteriosclerotic heart disease) acute Chronic bronchitis acute History of breast cancer acu te Hypothyroidism acute Pernicious anemia acute Stage 3a chronic kidney disease acute Chest pain resolved Acute on chronic heart failu re with preserved ejection fraction (HFpEF) acute ASHD (arteriosclerotic heart disease) acute Stage 3a chronic kidney disease acute Chest pain resolved [facility] Work Phone: 1(924) 362-164108-05-2024 Evaluation note* Diagnosis Onset Date Resolution Status ASHD (arteriosclerotic heart disease) acute Chronic bronchitis acute History of breast cancer acu te Hypothyroidism acute Pernicious anemia acute Stage 3a chronic kidney disease acute Chest pain resolved Acute on chronic heart failu re with preserved ejection fraction (HFpEF) acute ASHD (arteriosclerotic heart disease) acute Stage 3a chronic kidney disease acute Chest pain resolved [facility] Work Phone: 1(248) 674-331107-01-2024 Evaluation note* Diagnosis Onset Date Resolution Status ASHD (arteriosclerotic heart disease) acute Chronic bronchitis acute History of breast cancer acu te Hypothyroidism acute Pernicious anemia acute Stage 3a chronic kidney disease acute Chest pain resolved Acute on chronic heart failu re with preserved ejection fraction (HFpEF) acute ASHD (arteriosclerotic heart disease) acute Stage 3a chronic kidney disease acute Chest pain resolved [facility] Work Phone: 1(521) 893-942306-21-2024 History and physical note Author Jim Clay [facility] November 30, 2023 5:16pm Note Date/Time November 30, 2023 3:[address] [facility] [address] [place] [address] Hospitalist H&P Signed Patient: Nora Gibbs MR#: [id number] : 1940 Acct:[id number] Age/Sex: 83 / F Adm Date: 4 Loc: Room: [address] [place] [address] Type: ADM INOo Attending Dr: Jim Clay [...] and started torsemide. She recently saw her kosher dietary service manager who recommended an echocardiogram and a stress [...] negative unless noted below or in HPI [facility] Medical History (Updated 11/30/23 @ 13:34 [...] % (Auto) 20.1 % (.) 11/30/23 10:25 [place] % (Auto) 9.8 % (.) 11/30/23 10:25 Eos % (Auto) 2.8 % (.) 11/30/23 10:25 Baso % (Auto) 0.6 % (.) 11/30/23 10:25 Nucleat RBC Rel Count 0.1 /100 WBC (0-0.5) 11/30/23 10:25 Neut # (Auto) 4.1 x10E3/uL (1.8-7.7) 11/30/23 10:25 Lymph # (Auto) 1.2 x10E3/uL (1.00-4.8) 11/30/23 10:25 [place] # (Auto) 0.6 x10E3/uL (0.0-0.8) 11/30/23 10:25 [...] <Electronically signed by Jim Clay DO> 11/30/23 1710 [facility] Work Phone: 1(120) 557-184802-27-2024 Progress note Author Luis Angel Saucedo [facility] August 07, 2023 9:59am Note Date/Time August 07, 2023 9:54am [facility] [address] [place] [address] Wound Center Provider Note Signed Patient: Nora Gibbs MR#: [id number] : 1940 Acct:[id number] Age/Sex: 83 / F Copies to: MD [...] hematoma. She did see her surgeon in [place] who did her previous surgery. Patient had some punch biopsies performed to rule out cancer which apparently did not show any cancer. She did develop nonhealing wound at this site. She underwent a couple debridements and closures in [place] but each time, the wound did open up and start draining. The last debridement was last month. The surgeon who did her previous surgerieshas since left and the patient did see Dr. Kurtz last week. He did remove some remaining sutures and the patient was then referred here. Patient is currently having dressing changes performed at the [facility]. She has an open right [...] did wound start?: 08/2022 Mode of Arrival/ Design Director: Personal vehicle Lives with:: Alone Appetite Description: Within Normal Limits Who helps w/ dressing change?: Home Health and Wound Care Dept Why Do You Need Help?: Can't Reach Ulcer Smoking Status: Former smoker Constitutional Constitutional: Denies fever(s) Integumentary/Breasts Skin/Breast: Reports wounds [facility] Medical History (Updated 08/06/23 @ 13:22 [...] 0.1 CM Sq: 0.010 Surrounding Tissue Appearance: [place] Surrounding Tissue Temp: Warm Drainage Amount: None [...] by MD Luis Angel Saucedo> 08/07/23 0959 [facility] Work Phone: 1(290) 566-289902-06-2024 Progress note Author Luis Angel Saucedo [facility] July 17, 2023 9:52am Note Date/Time July 17, 2023 9 :52am [facility] [address] [place] [address] Wound Center Provider Note Signed Patient: Nora Gibbs MR#: [id number] : 1940 Acct:[id number] Age/Sex: 83 / F Copies to: MD [...] hematoma. She did see her surgeon in [place] who did her previous surgery. Patient had some punch biopsies performed to rule out cancer which apparently did not show any cancer. She did develop nonhealing wound at this site. She underwent a couple debridements and closures in [place] but each time, the wound did open up and start draining. The last debridement was last month. The surgeon who did her previous surgerieshas since left and the patient did see Dr. Kurtz last week. He did remove some remaining sutures and the patient was then referred here. Patient is currently having dressing changes performed at the [facility] infusion center. She has an [...] did wound start?: 08/2022 Mode of Arrival/ Design Director: Personal vehicle Lives with:: Alone Appetite Description: Within Normal Limits Who helps w/ dressing change?: Infusion Center and Wound Care Dept Why Do You Need Help?: Can't Reach Ulcer Smoking Status: Former smoker Constitutional Constitutional: Denies fever(s) Gastrointestinal Gastrointestinal: Denies abdominal pain Integumentary/Breasts Skin/Breast: Reports wounds Neurologic Neurologic: Denies syncope [facility] Medical History CAD (coronary artery disease) [...] Right Breast: Bed Appearance: Beefy Red, Devitalized, [place] and Yellow Percent of Wound Bed Granulated/Red: 60 Percent of Devitalized: 40 Length (cm): 1.0 Width (cm): 2 Depth (cm): 0.9 CM Sq: 2.000 Surrounding Tissue Appearance: [place] Surrounding Tissue Temp: Warm Drainage Amount: Small [...] by MD Luis Angel Saucedo> 07/17/23 0952 [facility] Work Phone: 1([phone]) 936-202902-05-2024 Evaluation note* Encounter Date Diagnosis Assessment Notes [...] abstinence. Not a candidate for yearly LDCT [facility] [employer] Other 01-24-2024 Evaluation note* Encounter Date Diagnosis Assessment Notes Treatment Notes Treatment Clinical Notes Jun, Pernicious anemia (ICD-10 - D51.0) [facility] [employer] Other 01-23-2024 Progress note Author Luis Angel Saucedo [facility] July 03, 2023 12:04pm Note Date/Time July 03, 2023 1 2:04pm [facility] [address] [place] [address] Wound Center Provider Note Signed Patient: Nora Gibbs MR#: [id number] : 1940 Acct:[id number] Age/Sex: 83 / F Copies to: MD Noble West,~ HPI Date of Visit Date of Visit: [...] hematoma. She did see her surgeon in [place] who did her previous surgery. Patient had some punch biopsies performed to rule out cancer which apparently did not show any cancer. She did develop nonhealing wound at this site. She underwent a couple debridements and closures in [place] but each time, the wound did open up and start draining. The last debridement was last month. The surgeon who did her previous surgerieshas since left and the patient did see Dr. Kurtz last week. He did remove some remaining sutures and the patient was then referred here. Patient is currently having dressing changes performed at the [facility] infusion center. She has an [...] did wound start?: 08/2022 Mode of Arrival/ Design Director: Personal vehicle Lives with:: Alone Appetite Description: Within Normal Limits Who helps w/ dressing change?: Infusion Center and Wound Care Dept Why Do You Need Help?: Can't Reach Ulcer Smoking Status: Former smoker Constitutional Constitutional: Denies fever(s) Integumentary/Breasts Skin/Breast: Reports wounds [facility] Medical History CAD (coronary artery disease) Osteoporosis [...] Right Breast: Bed Appearance: Beefy Red, Devitalized, [place] and Yellow Percent of Wound Bed Granulated/Red: 10 Percent of Devitalized: 90 Length (cm): 0.8 Width (cm): 2 Depth (cm): 1 CM Sq: 1.600 Surrounding Tissue Appearance: [place] Surrounding Tissue Temp: Warm Drainage Amount: Small [...] by MD Luis Angel Saucedo> 07/03/23 1204 [facility] Work Phone: 1(315) 650-791701-02-2024 Progress note Author Luis Angel Saucedo [facility] June 12, 2023 9:26am Note Date/Time June 12, 2023 9: 26am [facility] [address] [place] [address] Wound Center Provider Note Signed Patient: Nora Gibbs MR#: [id number] : 1940 Acct:[id number] Age/Sex: 83 / F Copies to: MD Noble WestDO~ HPI Date of Visit Date of Visit: Date of Service: 06/12/2023 Time of Service: 09:23 Narrative HPI: Patient is status post debridement of her right breast wound. Pathology showed chronic wound changes. No mention of malignancy. Cultures grew normal skin aries. There was an anaerobe [place]. [place] was started on negative pressure [...] hematoma. She did see her surgeon in [place] who did her previous surgery. Patient had some punch biopsies performed to rule out cancer which apparently did not show any cancer. She did develop nonhealing wound at this site. She underwent a couple debridements and closures in [place] but each time, the wound did open up and start draining. The last debridement was last month. The surgeon who did her previous surgerieshas since left and the patient did see Dr. Kurtz last week. He did remove some remaining sutures and the patient was then referred here. Patient is currently having dressing changes performed at the [facility] infusion center. She has an [...] did wound start?: 08/2022 Mode of Arrival/ Design Director: Personal vehicle Lives with:: Alone Appetite Description: [...] 10:29) Hives Wound/Ulcer Right Breast: Bed Appearance: [place] and Yellow Percent of Wound Bed Granulated/Red: 10 Percent of Devitalized: 90 Length (cm): 1.2 Width (cm): 2.9 Depth (cm): 2.5 CM Sq: 3.480 Surrounding Tissue Appearance: [place] Surrounding Tissue Temp: Warm Drainage Amount: Small [...] signed by MD Luis Angel Saucedo> 06/12/23925 [facility] Work Phone: 1(457) 994-938912-20-2023 Evaluation note* Encounter Date Diagnosis Assessment Notes Treatment Notes Treatment Clinical Notes May, Pernicious anemia (ICD-10 - D51.0) [employer] Other 12-18-2023 Hospital Discharge instructions Additional Instructions Initiate negative pressure wound therapy using black foam at 125 mmHg continuous. Change 3 times a week. In the meantime, perform dressing changes daily. Remove packing, irrigate with saline/Vashe and repack with saline moistened 4 x 4 gauze and cover with dry dressing.[facility] Work Phone: 1([phone]) 108-132612-05-2023 Progress note Author Luis Angel Saucedo [facility] May 15, 2023 9:57am Note Date/Time May 15, 2023 9 :57am [facility] [address] [place] [address] Wound Center Provider Note Signed Patient: Nora Gibbs MR#: [id number] : 1940 Acct:[id number] Age/Sex: 83 / F Copies to: MD [...] hematoma. She did see her surgeon in [place] who did her previous surgery. Patient had some punch biopsies performed to rule out cancer which apparently did not show any cancer. She did develop nonhealing wound at this site. She underwent a couple debridements and closures in [place] but each time, the wound did open up and start draining. The last debridement was last month. The surgeon who did her previous surgerieshas since left and the patient did see Dr. Kurtz last week. He did remove some remaining sutures and the patient was then referred here. Patient is currently having dressing changes performed at the [facility] center. She has an open [...] did wound start?: 08/2022 Mode of Arrival/ Design Director: Personal vehicle Lives with:: Alone Appetite Description: Within Normal Limits Who helps w/ dressing change?: Infusion Center and Wound Care Dept Why Do You Need Help?: Can't Reach Ulcer Smoking Status: Former smoker Constitutional Constitutional: Denies fever(s) Cardiovascular Cardiovascular: Denies chest pain Respiratory Respiratory: Denies dyspnea Integumentary/Breasts Skin/Breast: Reports wounds [facility] Medical History (Updated 04/24/23 @ 11:09 [...] by MD Luis Angel Saucedo> 05/15/23 0957 [facility] Work Phone: 1([phone]) 526-664011-16-2023 Evaluation note* Encounter Date Diagnosis Assessment Notes Treatment Notes Treatment Clinical Notes Apr, Pernicious anemia (ICD-10 - D51.0) [employer] Other 11-14-2023 Progress note Author Luis Angel Saucedo [facility] April 24, 2023 11:12am Note Date/Time April 24, 2023 10:46am [facility] [address] [place] [address] Wound Center Provider Note Signed Patient: Nora Gibbs MR#: [id number] : 1940 Acct:[id number] Age/Sex: 83 / F Copies to: MD [...] hematoma. She did see her surgeon in [place] who did her previous surgery. Patient had some punch biopsies performed to rule out cancer which apparently did not show any cancer. She did develop nonhealing wound at this site. She underwent a couple debridements and closures in [place] but each time, the wound did open up and start draining. The last debridement was last month. The surgeon who did her previous surgerieshas since left and the patient did see Dr. Kurtz last week. He did remove some remaining sutures and the patient was then referred here. Patient is currently having dressing changes performed at the [facility] infusion center. She has an [...] did wound start?: 08/2022 Mode of Arrival/ Design Director: Personal vehicle Lives with:: Alone Appetite Description: Within Normal Limits Who helps w/ dressing change?: Infusion Center and Wound Care Dept Why Do You Need Help?: Can't Reach Ulcer Smoking Status: Former smoker Constitutional Constitutional: Denies fever(s) Cardiovascular Cardiovascular: Denies chest pain Respiratory Respiratory: Denies dyspnea Gastrointestinal Gastrointestinal: Denies abdominal pain Integumentary/Breasts Skin/Breast: Reports wounds Neurologic Neurologic: Denies syncope [facility] Medical History (Updated 04/24/23 @ 11:09 [...] Breast: Bed Appearance: Epithelial Tissue or Bridge, [place] and Yellow Percent of Wound Bed Granulated/Red: [...] be done daily. Patient goes to the [facility] for this. Patient follow-up here [...] by MD Luis Angel Saucedo> 04/24/23 1112 [facility] Work Phone: 1(366) 680-349910-03-2023 Evaluation note* Encounter Date Diagnosis Assessment Notes [...] patient on monthly SBE and yearly mammograms. [employer] Other 09-07-2023 Evaluation note* Encounter Date Diagnosis Assessment Notes Treatment Notes Treatment Clinical Notes Feb, Pernicious anemia (ICD-10 - D51.0) [employer] Other 08-09-2023 Evaluation note* Encounter Date Diagnosis Assessment Notes Treatment Notes Treatment Clinical Notes Jan, Lower extremity edema (ICD-10 - R60.0) Jan, ASHD (arteriosclerotic heart disease) (ICD-10 - I25.10) Jan, HEIN (dyspnea on exertion) (ICD-10 - R06.09) [employer] Other 08-07-2023 Evaluation note* Encounter Date Diagnosis Assessment Notes Treatment Notes Treatment Clinical Notes Jan, Pernicious anemia (ICD-10 - D51.0) [employer] Other 07-25-2023 Evaluation note* Encounter Date Diagnosis Assessment Notes Treatment Notes Treatment Clinical Notes Dec, Lower extremity edema (ICD-10 - R60.0) [employer] Other 07-18-2023 Evaluation note* Encounter Date Diagnosis Assessment Notes Treatment Notes Treatment Clinical Notes Dec, Lower extremity edema (ICD-10 - R60.0) [employer] Other 07-17-2023 Evaluation note* Encounter Date Diagnosis [...] factors Dec, Elevated d-dimer (ICD-10 - R79.89) [employer] Other 07-06-2023 Evaluation note* Encounter Date Diagnosis Assessment Notes Treatment Notes Treatment Clinical Notes Dec, Pernicious anemia (ICD-10 - D51.0) [employer] Other 06-05-2023 Evaluation note* Encounter Date Diagnosis Assessment Notes Treatment Notes Treatment Clinical Notes Nov, Pernicious anemia (ICD-10 - D51.0) [employer] Other 05-04-2023 Evaluation note* Encounter Date Diagnosis Assessment Notes Treatment Notes Treatment Clinical Notes October, Pernicious anemia (ICD-10 - D51.0) [employer] Other 04-19-2023 Evaluation note* Encounter Date Diagnosis [...] mammogram in 6mo SBE monthly f/u Surgery [employer] Other 04-04-2023 Evaluation note* Encounter Date Diagnosis Assessment Notes Treatment Notes Treatment Clinical Notes Sep, Pernicious anemia (ICD-10 - D51.0) [employer] Other 03-09-2023 Evaluation note* Encounter Date Diagnosis Assessment Notes Treatment Notes Treatment Clinical Notes Aug, Local infection of the skin and subcutaneous tissue, unspecified (ICD-10 - L08.9) Aug, Other injury of unspecified body region, initial encounter (ICD-10 - T14.8XXA) [employer] Other 03-09-2023 Evaluation note* Encounter Date Diagnosis Assessment Notes Treatment Notes Treatment Clinical Notes Aug, Cellulitis of female breast (ICD-10 - N61.0) Aug, Breast abscess of female (ICD-10 - N61.1) Warm compresses, continue antibiotic coverage. Schedule breast US Refer to Surgery Aug, Hx of breast cancer (ICD-10 - Z85.3) [employer] Other 03-02-2023 Evaluation note* Encounter Date Diagnosis [...] Hx of breast cancer (ICD-10 - Z85.3) [employer] Other 01-31-2023 Evaluation note* Encounter Date Diagnosis Assessment Notes Treatment Notes Treatment Clinical Notes Jun, Pernicious anemia (ICD-10 - D51.0) [employer] Other 05-11-2022 History of Present illness Narrative* Genny Winters PA-C - 10/19/2021 1:30 PM EDT PATIENT NAME: Nora L [facility] NO.: [id number] ATTENDING PHYSICIAN: Stephen Caballero MD DATE OF SERVICE: October 19, 2021 (Elements copied from Dr. Caballero's note dated October 19, 2020, have been reviewed and updated where appropriate, and all reflect current assessment and medical decision making during today's encounter, October 19, 2021) CC: Follow up Diagnosis: 1. Right breast cancer, invasive lobular carcinoma, HER-2/suresh negative ER and CO strongly positive at 95%, diagnosed 2014 Treatment History: 1. Lumpectomy plus sentinel lymph node biopsy October 28, 2014. Invasive lobular carcinoma, 2.2 cm. 2 sentinel lymph nodes negative for involvement. ER CO 95% positive, HER-2/suresh negative. 2. Right breast [...] Date Arthritis Breast cancer (HCC) Right; T2N0M0; ER/CO+ HER2 COPD (chronic obstructive pulmonary disease) (HCC) [...] 2.2 cm, invasive lobular carcinoma, ER and CO 95% positive, HER-2/suresh negative status post lumpectomy [...] CC: Noble Hayes MD documented in this encounterTri[facility]04-14-2022 Miscellaneous Notes* Telephone Encounter - Stephen Caballero MD - 09/22/2021 1:41 PM EDT Screening is fine. She is 7 years out * Telephone Encounter - Adalgisa Beck RN - 09/22/2021 12:14 PM EDT Patient is scheduled for a screening mammogram on 10/09/21 at [facility]. The diagnosis of malignant neoplasm will not work for a screening mammogram. Patient is 7 years from diagnosis. Would you like to continue with a screening mamm and change the diagnosis to personal history of breast cancer or change the order to a diagnostic mamm? Thanks Sierra Beck RN documented in this encounterTrihealth Bethesda Butler HospitalDischarge summary Author Jim Clay [facility] December 01, 2023 3:07pm Note Date/Time December 01, 2023 3:[address] [facility] [address] [place] [address] Discharge Summary Signed Patient: Nora Gibbs MR#: [id number] : 1940 Acct:[id number] Age/Sex: 83 / F Adm Date: 4 Loc: 3T Room: [address] [place] [address]: Jim Clay DO Copies to: [...] and stress test thisupcoming week with her kosher dietary service manager in [place]. She was self admitted to hospital for [...] The patient was instructed to see her kosher dietary service manager this upcoming week for her stress test [...] Blister With Device 1 inh INHALATION DAILY [id number] C-E-herbal 1,250 mcg-50 mg -67.5 mg-15 mg [...] % (Auto) 62.6, Lymph % (Auto) 22.3, [place] % (Auto) 11.5, Eos % (Auto) 2.8, Baso % (Auto) 0.8, Nucleat RBC Rel Count 0.1, Neut # (Auto) 4.0, Lymph # (Auto) 1.4, [place] # (Auto) 0.7, Eos # (Auto) 0.2, [...] H Documented By: Jim Clay DO 12/01/23 1504 Signed By: <Electronically signed by Jim Clay DO> 12/01/23 1507 [facility] Work Phone: Evaluation note* Diagnosis Encounter for screening mammogram for malignant neoplasm of breast- Primary Other screening mammogram documented in this encounter [facility] HospitalEvaluation noteNo [facility] Other Evaluation note* Diagnosis Onset Date Resolution Status History of breast cancer acu te History of radiation exposure acute Nonhealing surgical wound ac [facility] Work Phone: evaluation note* Diagnosis Onset Date Resolution Status Essential hypertension acute Cerumen impaction noneactive History of breast cancer acu te History of radiation exposure acute Nonhealing surgical wound ac [facility] Work Phone: Evaluation note* Diagnosis Onset Date Resolution Status History of breast cancer acu te History of radiation exposure acute Nonhealing surgical wound ac [employer] ASHD (arteriosclerotic heart disease) acute Chronic bronchitis acute Edema acute Essential hypertension acute History of breast cancer acu te Hypothyroidism acute Pernicious anemia acute Stage 3a chronic kidney disease acute [facility] Work Phone: Evaluation note* Diagnosis Onset Date Resolution Status ASHD (arteriosclerotic heart disease) acute Chronic bronchitis acute Essential hypertension acute History of breast cancer acu te Hypothyroidism acute Lower extremity edema acute Pernicious anemia acute Stage 3a chronic kidney disease acute Chest pain acute Essential hypertension acute [facility] Work Phone: Evaluation note* Diagnosis Onset Date Resolution Status ASHD (arteriosclerotic heart disease) acute Chronic bronchitis acute Essential hypertension acute History of breast cancer acu te Hypothyroidism acute Lower extremity edema acute Pernicious anemia acute Stage 3a chronic kidney disease acute Chest pain acute Essential hypertension acute Lower extremity edema acute [facility] Work Phone: Evaluation note* Diagnosis Onset Date [...] acute Stage 3a chronic kidney disease acute [facility] Work Phone: Evaluation note* Diagnosis Onset Date Resolution Status (HFpEF) heart failure with preserved ejection fraction acute ASHD (arteriosclerotic heart disease) acute Chronic bronchitis acute Hypothyroidism acute Nicotine dependence, cigarettes, in remission acute Obesity acute Stage 3a chronic kidney disease acute [facility] Work Phone: Hisvqxs general Narrative - Reported* Type Description Date [...] cell skin cancer Hospitalization History SEE ABOVE [employer] Other [place] general Narrative - Reported* Type Description Date [...] History SEE ABOVE Hospitalization History SEE ABOVE [employer] Other History general [facility]ative - [facility] [employer] Other History general Narrative - Reported* Type [...] cell skin cancer Hospitalization History SEE ABOVE [employer] Other History general Narrative - Reported* Type [...] ulcera tion 01/2023 Hospitalization History SEE ABOVE [facility] Other History general Narrative - Reported* Type [...] ulcera tion 05/2023 Hospitalization History SEE ABOVE [employer] Other Progress note Author Luis Angel Saucedo [facility] August 28, 2023 9:48am Note Date/Time August 28, 2023 9:[address] [facility] [address] [place] [address] Wound Center Provider Note Signed Patient: Nora Gibbs MR#: [id number] : 1940 Acct:[id number] Age/Sex: 83 / F Copies to: MD [...] hematoma. She did see her surgeon in [place] who did her previous surgery. Patient had some punch biopsies performed to rule out cancer which apparently did not show any cancer. She did develop nonhealing wound at this site. She underwent a couple debridements and closures in [place] but each time, the wound did open up and start draining. The last debridement was last month. The surgeon who did her previous surgerieshas since left and the patient did see Dr. Kurtz last week. He did remove some remaining sutures and the patient was then referred here. Patient is currently having dressing changes performed at the [facility]. She has an open right [...] did wound start?: 08/2022 Mode of Arrival/ Design Director: Personal vehicle Lives with:: Alone Appetite Description: Within Normal Limits Who helps w/ dressing change?: [facility] Why Do You Need Help?: Can't Reach Ulcer Smoking Status: Former smoker Constitutional Constitutional: Denies fever(s) [facility] Medical History Stage 3a chronic kidney [...] 0 CM Sq: 0.000 Surrounding Tissue Appearance: [place] Surrounding Tissue Temp: Warm Drainage Amount: None [...] by MD Luis Angel Saucedo> 08/28/23 0948 [facility] Work Phone: Reason for referral (narrative)* Diagnostic Procedure Only (Routine) - Pending Review Specialty Diagnoses / Procedures Referred By Jann caraballo Referred To Contact [facility] Diagnoses Encounter for screening mammogram for malignant neoplasm of breast Procedures KAREN SCREENING SCREENING MAMMOGRAPHY BI 2-VIEW BREAST INC Genny Pitts PA-C [address] [place] [address] [place] [address] [facility] [address] [place] [address] Referral ID Status Reason Start Date Expiration Date Visits Requested Visits Authorized [id number] Pending Review Auto-Generat ed Referral 10/19/2021 11/18/2022 1 1 [facility] for referral (narrative)* Reason *FU 09/04 Referral for right breast abscess Diagnosis 1 Breast abscess of fe male (N61.1) Referral Organization [facility] Referring Provider First Name Noble Referring Provider Last Name Abigail Referring Provider Specialty Internal Me dicine Referred Organization Unknown Facility Referred Provider Checo Reis Referred Provider Specialty Surgery Referral Priority Routine General Notes Kelly Gilbert 01:34:05 PM >received today, notes locked, and referral faxed Kelly Gilbert 08/28/2022 12:05:49 PM >FAXED FIRST ATTEMPT LETTER Clinical Notes . . [facility] [employer] Other Reason for referral (narrative)No reason for referral [facility] Work [facility]: Summary Purpose Family History Relationship Condition Age [...] 2024 10:17am ASHD (arteriosclerotic heart disease) Se ptember 2023 10:17am Chronic bronchitis February 19, 2024 10:17am Hypothyroidism February 19, 2024 10:17am Nicotine dependence, cigarettes, in ruth ssion February 19, 2024 10:17am Obesity February 19, 2024 10:17am Stage 3a chronic kidney disease Septembe r 2023 10:17am Chief Complaint Admit Date B12 [...] 22, 2024 11:22am ASHD (arteriosclerotic heart disease) [facility] 2024 11:22am Chronic bronchitis August 22, 2024 [...] 22, 2024 11:22am ASHD (arteriosclerotic heart disease) [facility] 2024 11:22am Chronic bronchitis August 22, 2024 [...] 22, 2024 11:22am ASHD (arteriosclerotic heart disease) [facility] 2024 11:22am Chronic bronchitis August 22, 2024 [...] Amb Documentation October 06, 2024 10: 31am [facility]; cough/SOB October 06, 2024 1:1 9pm [...] 2024 1:43pm [facility] (arteriosclerotic heart disease) [facility] 1:43pm Chronic bronchitis November 19, 2024 [...] 11:12am Obesity November 26, 2024 11:1 2am Chief Complaint Admit Date b12 shot October 29, 2024 10:52 am 3 month f/u November 19, 2024 1:43 pm Amb Documentation November 24, 2024 10:5 5am IP heart cath [facility] November 26, 2024 11:1 2am B12 shot December 01, 2024 12:0 3pm B12 shot December 31, 2024 11:1 8am [facility] PREV JRB KRISTA Jan ust 2024 9:48am Reason for Visit Admit Date (HFpEF) heart failure with preserved eje ction fraction November 19, 2024 1:43pm ASHD (arteriosclerotic heart disease) [facility] 1:43pm Chronic bronchitis November 19, 2024 [...] right h ip January 27, 2025 9:48am Chief Complaint Admit Date 3 month f/u November 19, 2024 1:43 pm Amb Documentation November 24, 2024 10:5 5am IP heart cath [facility] November 26, 2024 11:1 2am B12 shot December 01, 2024 12:0 3pm B12 shot December 31, 2024 11:1 8am [facility] NX PREV JRB KRISTA Jan ust 2024 9:48am B12 shot February 02, 2025 1: 05pm Chief Complaint Admit Date IP heart cath [facility] November 26, 2024 11:1 2am B12 shot December 01, 2024 12:0 3pm B12 shot December 31, 2024 11:1 8am [facility] NX PREV JRB KRISTA Jan us2024 9:48am B12 shot February 02, 2025 1: [...] 2025 1:21pm Obesity February 23, 2025 1:21pm Additional Source Comments INFORMATION SOURCE (unrecogn ized section and content) DATE CREATED AUTHOR 09/16/2018 [facility] DATE CREATED AUTHOR AUTHOR'S ORGANIZ ATION 08/23/2022 [facility] DATE CREATED AUTHOR AUTHOR'S ORGANIZ ATION 11/17/2022 [facility] DATE CREATED AUTHOR AUTHOR'S ORGANIZ ATION 06/27/2023 [facility] DATE CREATED AUTHOR AUTHOR'S ORGANIZ ATION 12/11/2023 [facility] DATE CREATED AUTHOR AUTHOR'S ORGANIZ ATION 01/10/2025 [facility] Source Comments (unrecognize d section and content) In the event this informatio n is protected by the Federal Confidentiality of Alcohol and Drug Abuse Patient Records regulations: The Federal rules restrict any use of the information to criminally investigate or prosecute any alcohol or drug abuse patient.[facility] the event this information is protected by the Federal Confidentiality of Alcohol and Drug Abuse Patient Records regulations: The Federal rules restrict any use of the information to criminally investigate or prosecute any alcohol or drug abuse patient.[facility] Reason for Visit (unrecogniz ed section [...] 2024 End: November 26, 2024 Noble Hayes DO Attending Provider Active Sta rt: November 26, 2024 End: November 26, 2024 Team Status: Inactive Member Role Status Dates Noble Hayes DO Primary Care Provider Active Start: December 01, 2024 End: December 01, 2024 Noble Hayes , Attending Provider Active Sta rt: December 01, 2024 End: December 01, 2024 Team Status: Inactive Member Role Status Dates Noble Hayes DO Primary Care Provider Active Start: December 31, 2024 End: December 31, 2024 Noble Hayes , Attending Provider Active Sta rt: December 31, 2024 End: December 31, 2024 Team Status: Inactive Member Role Status Dates Noble Hayes DO Primary Care Provider Active Start: January 27, 2025 End: January 27, 2025 Bobby Blood II, MD Attending Provider Active Start: January 27, 2025 End: January 27, 2025 Team Status: Inactive Member Role Status Dates Noble Hayes DO Primary Care Provider Active Start: February 02, 2025 End: February 02, 2025 Noble Hayes , Attending Provider Active Sta rt: February 02, 2025 End: February 02, 2025 Team Status: Inactive Member Role Status Dates Noble Hayes DO Primary Care Provider Active Start: February 23, 2025 End: February 23, 2025 Noble Hayes , Attending Provider Active Sta rt: February 23, 2025 End: February 23, 2025 Team Status: Active Member Role Status Rick Hayes DO Primary Care Provider Active Team Status: Active Member Role Status Rick Hayes DO Primary Care Provider Active Start: November 14, 2024 Bala Zepeda MD Attending Provider Active Start: November 14, 2024 Team Status: Inactive Member Role Status Dates Noble Hayes DO Primary Care Provider Active Start: November 19, 2024 End: November 19, 2024 Noble Hayes DO Attending Provider Active Sta rt: November [...] 2024 End: November 26, 2024 Noble Hayes DO Attending Provider Active Sta rt: November [...] January 27, 2025 End: January 27, 2025 Team Status: Inactive Member Role Status Dates Noble Hayes DO Primary Care Provider Active Start: February 02, 2025 End: February 02, 2025 Noble Hayes , DO Attending Provider Active Sta rt: February 02, 2025 End: February 02, 2025 Team Status: Inactive Member Role Status Dates [...] 28, 2023 End: August 28, 2023 Luis Angle Saucedo MD Attending Provider Active Sta rt: August 28, 2023 End: August 28, 2023 Team Status: Inactive Member Role Status Rick Hayes DO Primary Care Provider Active Start: September 06, 2023 End: September 06, 2023 Lesly Dye APRN [employer]CH[employer]IST-C Attending Provider Act wyatt Start: September 06, 2023 End: September 06, 2023 Team Status: Inactive Member Role Status Rick Hayes DO Primary Care Provide r, Attending Provider Active Start: October 08, 2023 End: October 08, 2023 Team Status: Inactive Member Role Status Rick Hayes DO Primary Care Provide r, Attending Provider Active Start: November 08, 2023 End: November 08, 2023 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 [facility], [facility]. provides no warranty or guarantee of the accuracy or completeness of information in this document.
--- NOTE | 2025-02-27 14:15 | CT_ITS ---
The [address] [address] Patient Name: LAWSON GIBBS MRN: [id number] date: 1940 Sex: F Assigned Patient Location: CT Current Patient Location: CT Accession/Order Number: [id number] Exam Date: 02/27/2025 14:20 Report Date: 02/27/2025 17:14 At the request of: MERCEDEZ HAYES DO Procedure: CT chest wo con CT Chest without contrast TECHNIQUE: Axial imaging with 2-D reconstruction. The CT exam was performed using one or more the following dose reduction techniques: Automated exposure control, adjustment of the MA and/or Kv according to patient size, or use of the iterative reconstruction technique. History: Shortness of breath. History of COPD. COMPARISON: 10/09/2024 THYROID: Unremarkable TRACHEA AND BRONCHI: Patent ESOPHAGUS: Continued esophageal wall thickening. HEART: Within normal limits PERICARDIAL EFFUSION: None CORONARY ARTERY CALCIFICATION: Present MEDIASTINUM: No adenopathy. No pneumoperitoneum. No mediastinal hematoma. PULMONARY WEN: No hilar mass or adenopathy is seen. THORACIC AORTA atherosclerosis. No aneurysm. LUNG NODULE resolution of inflammatory nodules. There are no lung nodules identified. LUNGS: Lungs are clear PLEURAL EFFUSION: None PNEUMOTHORAX: No pneumothorax seen. CHEST WALL: No abnormality AXILLA:Unremarkable BONY STRUCTURES degenerative changes UPPER ABDOMEN: Images of the upper abdomen are noncontributory. CT/CT chest wo con IMPRESSION: Resolution of inflammatory nodules continued esophageal wall thickening. Underdistention versus esophagitis. Impression dictated by: Mahendra Chandler M.D. 02/27/2025 5:14 PM Dictation Location: [facility] Electronically authenticated by: [id number] Y Date: 02/27/2025 17:14
== END 2025-02-27 14:03 | disposition home or self-care (01) ==
PROVIDERS: PCP Internal Medicine Interventional Cardiology; Visit Provider Internal Medicine
DX: R91.8 Other nonspecific abnormal finding of lung field (principal)
CPT/HCPCS: 71250

== ENCOUNTER 2025-03-19 10:44 | Outpatient (RCR) | payer MEDICARE, SELFPAY | END 2025-05-01 11:05 | disposition home or self-care (01) | LOC: PT 10:44 | PROVIDERS: PCP Internal Medicine Interventional Cardiology; Visit Provider Orthopaedic Surgery | DX: M70.62 Trochanteric bursitis, left hip (principal); M70.61 Trochanteric bursitis, right hip | CPT/HCPCS: 97035; 97110; 97140; 97161 ==

== ENCOUNTER 2025-03-19 12:44 | Outpatient (OUT) | payer MEDICARE, SELFPAY ==
--- OUTSIDE RECORDS SUMMARY | 2025-03-19 12:55 | XMS_ITS | CCD ---
Author Organization [facility] Care Team Providers Care Cab Supervisor Name Role Phone PHYSICIAN, DEFAULT Admitting Unavailable PHYSICIAN, DEFAULT Attending Unavailable UNKNOWN, PROVIDER Admitting Unavailable UNKNOWN, PROVIDER Attending Unavailable SELF, REFERRED Referring Unavailable SELF, REFERRED Primary Care Unavailable Abigail DO, Noble E Primary Care Provider Gayle Wade Unavailable Checo RODRIGEZ Attending Unavailable BALLNOBLE Referring Unavailable Ball, Noble Unavailable TAMLYN ., RITU Attending Unavailable TAMLYN ., RITU Admitting Unavailable BALL, DR DICKEY Primary Care Unavailable TAMLYN ., RITU Attending Unavailable TAMLYN ., RITU Admitting Unavailable BALL, DR DICKEY Primary Care Unavailable BALL, DR DICKEY Primary Care Unavailable HIGHLANDER, LOREN Abad Admitting Unavailable HIGHLANDER, LOREN Abad Attending Unavailable TAMLYN ., RITU Attending Unavailable TAMLYN ., RITU Admitting Unavailable BALL, DR DICKEY Primary Care Unavailable TAMLYN ., RITU Attending Unavailable TAMLYN ., RITU Admitting Unavailable BALL, DR DICKEY Primary Care Unavailable TAMLYN ., RITU Attending Unavailable BALL, DR DICKEY Primary Care Unavailable TAMLYN ., RITU Admitting Unavailable TAMLYN ., RITU Attending Unavailable BALL, DR DICKEY Primary Care Unavailable TAMLYN ., RITU Admitting Unavailable TAMLYN ., RITU Attending Unavailable TAMLYN ., RITU Admitting Unavailable BALL, DR DICKEY Primary Care Unavailable TAMLYN ., RITU Attending Unavailable TAMLYN ., RITU Admitting Unavailable BALL, DR DICKEY Primary Care Unavailable BALL, DR DICKEY Primary Care Unavailable BALL, DR DICKEY Consulting Unavailable BALL, DR DICKEY Attending Unavailable BALL, DR DICKEY Admitting Unavailable WEST, DR MARGIE Andrews Consulting Unavailable BALL, DR DICKEY Primary Care Unavailable BALL, DR DICKEY Consulting Unavailable BALL, DR DICKEY Attending Unavailable BALL, DR DICKEY Admitting Unavailable TAMLYN ., RITU Attending Unavailable TAMLYN ., RITU Admitting Unavailable BALL, DR DICKEY Primary Care Unavailable TAMLYN ., RITU Attending Unavailable RITU TAYLOR Admitting Unavailable DR NOBLE HAYES Primary Care Unavailable DO Noble Hayes Primary Care Provider MD Luis Angel Saucedo Attending Provider Abigail, DO Dickey Primary Care Provider MD Luis Angel Saucedo Attending Provider BrownDO iNka Emergency Provider DO Noble Hayes Primary Care Provider DO Jim Clya Admit Provider [phone] DO Jim Clay Attending Provider [phone] Lewis Luis Angel Admitting Unavailable SaucedoLuis Angel Attending Unavailable Noble Hayes Primary Care Unavailable Saucedo, Luis Angel Admitting Unavailable Luis Angel Saucedo Attending Unavailable Noble Hayes Primary Care Unavailable Jim Clay Admitting Unavailable Jim Clay Attending Unavailable Noble Hayes Primary Care Unavailable Saucedo, Luis Angel Admitting Unavailable Saucedo, Luis Angel Attending Unavailable Noble Hayes Primary Care Unavailable Noble Hayes DO Primary Care Provider Danyel Randle DO Attending Provider [phone] Ly Sexton CMA Attending Provider UnavailNoble Barahona DO Attending Provider Leander Juan MD Attending Provider Bala Zepeda MD, V Attending Provider STEFANIE HUTCHINS Attending Unavailable BALA ZEPEDA Attending Unavailable BALA ZEPEDA Attending Unavailable BALA ZEPEDA Attending Unavailable TABBYANI, HUANG Admitting Unavailable DUKE, BILLIE Attending Unavailable BALA ZEPEDA Referring Unavailable SPENCER, SAMAR Referring Unavailable Noble Hayes DO Primary Care Provider Noble Hayes DO Attending Provider [phone] Ly Sexton CMA Attending Provider UnavailBobby Alvarado MD Attending Provider [phone] Noble Hayes DO Primary Care Provider Noble Hayes DO Attending Provider Noble Hayes DO Primary Care Provider [phone] Noble Hayes DO Attending Provider [phone] Noble Hayes DO Primary Care Provider Noble Hayes DO Attending Provider NOBLE HAYES Primary Care Unavailable ABIGAILNOBLE Primary Care Unavailable NOBLE HAYES Primary Care Unavailable DAINA MONTELONGO Attending Unavailable Allergies Allergy Classification Reported Allergen(s) Allergy Type Date of Onset Reaction(s) Facility penicillAMINE (3 sources) penicillAMINE Drug Allergy 08-10-19 24 [facility] Penicillins (antibiotic) (3 sources) Penicillins Drug Allergy 08-10-19 24 [facility] Sulfonamides (antibiotic) (6 sources) Sulfonamides (Antibiotic) Drug Allergy 08-10-19 24 [facility] Sulfur (3 sources) Sulfur Drug Allergy 08-10-19 24 [facility] (20 sources) Penicillins; Translations: [PENICILLINS] Drug allergy (disorder) 04-28-20 14 [facility] Repository Comment on above: Onset Date: 05/15/20 14 (20 sources) Sulfonamides (Antibiotic); Translations: [SULFA (SULFONAMIDE ANTIBIOTICS)] Drug allergy (disorder) 06-11-18 94 [facility] Repository Comment on above: Onset Date: 05/15/20 14 (17 sources) Penicillins Drug Allergy 05-15-20 14 Unknown [facility] (17 sources) Sulfonamides (Antibiotic) Drug Allergy 05-15-20 14 Unknown [facility] (20 sources) guaiFENesin Drug Allergy Unknown [facility] (app) Other (20 sources) penicillAMINE Drug Allergy 08-10-19 24 Unknown, [facility] (20 sources) Sulfacetamide / Sulfur Drug Allergy Unknown [facility] (app) Other (15 sources) Dextromethorphan Drug Allergy 07-22-19 14 Unknown [facility] ([facility]) Other (15 sources) guaiFENesin Drug Allergy 07-22-19 14 Unknown [facility] ([facility]) Other (1 source) Penicillin Drug Allergy Unknown [facility] (app) Other (15 sources) Sulf-10 Drug allergy Unknown [facility] (app) Other (1 source) patient allergy list reviewed by nurse or physicia Propensity to adverse reactions 05-09-20 13 Comment:Done [facility] (app) Other (1 source) Allergies Reconciled Propensity to adverse reactions Unknown [facility] (app) Other (20 sources) Sulfacetamide; Translations: [sulfacetamide] Drug Allergy 08-10-19 [facility] (20 sources) Sulfur; Translations: [sulfur] Drug Allergy 08-10-19 [facility] (1 source) penicillAMINE Drug Allergy 11-30-19 [facility] Repository (1 source) Penicillins Drug allergy (disorder) 11-30-19 [facility] (1 source) Sulfonamides (Antibiotic) Drug allergy (disorder) 11-30-19 [facility] Rep[facility] Medications Current Medications Medication Drug [...] a day for 30 days Nov, Active [id number] actuat albuterol 0.09 mg/actuat metered dose [...] mouth once daily take 1 tablet by eveline every twenty-four [...] Take 40 mg by mouth once daily. Pgseoz-Gdgtwmta-Tii C-E-Herbal (15 sources) Start: 04-24-2023 take 2 tablets by mouth once daily Ousnyw-Fggmxdrx-A it C-E-Herbal Active 2 TAB PO Daily after supper April 24, 2023 1:00am Start: 04-24-2023 take 2 tablets by mo [facility] once daily Rbxlrw-Xpkawsjk-Nda C-E-Herbal Active 2 TAB PO Daily after supper April 24, 2023 12:00am Vfdaws-Knsnhzpi-Fmu C-E-Herbal 1,250 mcg-50 mg -67.5 mg-15 mg Tablet,Chewable (13 sources) Start: 04-24-2023 take 2 tablets by mouth once daily Buyczs-Dwqkxjfl-Jwq C-E-Herbal 1,250 mcg-50 mg -67.5 mg-15 mg Tablet,Chewable Active 2 TAB PO Daily after supper April 24, 2023 1:00am Complies with drug therapy Start: 04-24-2023 take 2 tablets by [facility] once daily Start: 04-24-2023 take 2 tablets by [facility] once daily Fjzmio-Lzwcctel-Byq C-E-Herbal 1,250 mcg-50 mg -67.5 mg-15 mg Tablet,Chewable Active 2 TAB PO Daily after supper April 24, 2023 1:00am Start: 04-24-2023 take 2 tablets by [facility] once daily Okustf-Ehvsajtw-Imm C-E-Herbal 1,250 mcg-50 mg -67.5 mg-15 mg [...] MG (20 sources) take 1 tablet by [facility] twice daily at mealtime Calcium-Vitamin D 500 MG 1 tablet with f ood Orally Twice a day Active clopidogrel 75 mg oral tablet (5 sources) P2Y12 Platelet Inhibitor Start: 11-23-2024 take 1 tablet by mouth once daily doxazosin 4 mg oral tablet (20 sources) alpha-Adrenergic Melanie Start: 02-23-2025 take 1 tablet by mouth once daily Start: 11-23-2024 End: 02-23-2025 take 2 tablets by mouth once daily at bedtime Doxazosin 4 mg tablet Discontinued 8 MG PO Daily at bedtime 60 30 November 23, 2024 3:39pm February 23, 2025 [...] Fiber - as direc katia Orally Active Tebhdumelpe-Rugwmnsxm-Rydepu er (20 sources) Start: 10-29-2024 Vfubyeeindb-Awonjkssn-Foyadb er (Trelegy Ellipta) 200-62.5-25 mcg blister with device Active 1 INH INHALATION Daily 60 October 29, 2024 12:00am Complies with drug therapy Start: 10-29-2024 Start: 10-29-2024 Fluticasone-Um eclidin-Vilanter (Trelegy Ellipta) 200-62.5-25 mcg blister with device Active 1 INH INHALATION Daily 60 October 29, 2024 12:00am Start: 04-24-2023 End: 10-29-2024 Gctaatzrtxh-Helkgcmqw-Xzajqz er (Trelegy Ellipta) 200-62.5-25 mcg Blister With [...] oral tablet (20 sources) Nitrate Vasodilator Start: 01-27-2025 take 1 tablet by mouth every twenty-four hours Start: 01-27-2025 take 1 tablet by eveline th every twenty-four hours Start: 12-30-2024 End: 02-23-2025 take 1 tablet [...] succinate 25 mg extended release oral tablet (20 sources) beta-Adrenergic Melanie Start: 12-01-2023 take 2 tablets by mouth once daily Start: 12-01-2023 take 12.5 mg by mout h once daily Metoprolol Succinate Active 12.5 MG PO Daily December 01, 2023 12:00am pantoprazole 20 mg delayed release oral tablet (5 sources) Proton Pump Inhibitor Start: 12-30-2024 take [...] once daily. azithromycin 250 mg oral tablet (7 sources) Macrolide Antimicrobial Start: 10-06-2024 End: 11-24-2024 [...] RINSING. ondansetron 4 mg disintegrating oral tablet (6 sources) Serotonin-3 Receptor Antagonist Start: 10-08-2024 End: 11-23-2024 take 1 tablet by mouth every eight hours as needed for nausea and vomiting Ondansetron 4 mg tablet,disintegrati ng Discontinued 4 MG PO Every 8 hours as needed for nausea and vomiting 10 October 08, 2024 12:00am November 23, 2024 3:40pm spironolactone 25 mg oral tablet (20 sources) Aldosterone Antagonist Start: 12-01-2023 End: 02-19-2024 [...] 10:01am Start: 09-07-2022 take 1 capsule by [facility] once daily at bedtime Temazepam 30 mg TAKE ONE CAPSULE BY MOUTH ONCE DAILY AT BEDTIME for Aug, Active Start: 09-24-2020 take 1 capsule by [facility] once daily at bedtime temazepam (RESTORIL) 30 [...] disease (20 sources) Atherosclerotic heart disease of [place] coronary artery with unstable angina pectoris; Translations: [...] pathological fracture] Chronic Other aftercare (1 source) alf (current) use of aspirin; Translations: [CUSTODIAL (CURRENT) USE OF ASPIRIN] Onset: 09-03-2018 Episodic Other aftercare (2 sources) Long-term current use of drug therapy; Translations: [Other residential (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] Episodic Other circulatory disease [...] [Necrotizing fasciitis] Episodic Other connective tissue disease (16 sources) Trochanteric bursitis; Translations: [Trochanteric bursitis, left [...] Onset: 09-03-2018 Episodic Other lower respiratory disease (16 sources) Dyspnea; Translations: [Other forms of dyspnea] Onset: 04-16-2018 02-27-2024 Episodic Other lower respiratory disease (4 sources) Other forms of dyspnea; Translations: [Other forms of dyspnea] Onset: 04-11-2023 Episodic Other lower respiratory disease (2 sources) Multiple nodules of lung; Translations: [Other nonspecific [...] right hip] Episodic Other non-traumatic joint disorders (4 sources) Hip pain; Translations: [Pain in right [...] of mental health and substance abuse codes (5 sources) Personal history of nicotine dependence; Translations: [...] 11-28-2019 Episodic Other aftercare (1 source) 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 terminal 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 operator (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; 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] Onset: 01-27-2022 Episodic Other gastrointestinal disorders (1 source) Digestive symptom; Translations: [Other symptoms involving digestive system] Onset: 08-30-2015 Episodic Other skin disorders (1 source) Sebaceous [...] Test Name Value Interpretation Reference Range Facility [facility] 03-10-2025 CNOV Office Visit (PULSAN ) ----- NORA GIBBS ([id number]) 1940 F Date Time Provider Department 03/10/25 1:00 PM DAINA MONTELONGO During your visit today, we recorded the following information about you: Temperature Pulse Respiration Blood pressure 97.1 degrees 59/minute 20/minute 188/75 Weight 78.6 kg Daina Montelongo MD 03/10/2025 1:58 PM Signed NEW PATIENT OFFICE VISIT Nora Gibbs is a 84 year old female who presents for evaluation of shortness of breath. Nora reports dyspnea with minimal exertion, such as pushing a vacuum fish cleaner a few times, necessitating rest. This has been ongoing for years but has progressively worsened. She reports being mostly sedentary during the day. She denies cough or sputum production, but endorses wheezing. She experiences sneezing spells in the morning, but denies known allergies or daytime sinus or allergy symptoms. She denies dizziness, lightheadedness, or chest pain associated with dyspnea. She notes occasional LE edema. Nora was diagnosed with COPD and has been on Trelegy since 2018, which she takes daily without noticing improvement. She also uses albuterol as needed, particularly after activities like shopping, which provides relief. Nora finds Trelegy expensive, paying $139 after a $400 deductible. She denies any episodes of COPD exacerbations. She has a history of recurrent pneumonia and bronchitis while smoking, but has not had these issues since quitting. She was hospitalized for pneumonia a couple of years ago, but has had no episodes since. Nora has a significant smoking history, having smoked approximately 1 pack per day for over 50 years before quitting 17 years ago. Nora has a history of coronary artery disease. She had a stent placed several years ago and then another stent placed this November. She has not noticed any change in dyspnea since the stent was placed. She tried to participate in cardiac rehab but this was limited due to knee issues. She has received injections on 01/27 for this and was referred to physical therapy but not yet started the PT. Nora has no pets and denies exposure to birds, farm animals, water damage, mold, or regular use of a hot tub. She has a history of radiation therapy for breast cancer in 2016. She denies family history of lung issues, but her and son of lung cancer. PMH, FAMH, SOCIAL History AND Allergies were verified and updated, and medications were reconciled with the patient at this visit. PAST MEDICAL HISTORY Diagnosis Date Arthritis Breast cancer (HCC) Right; T2N0M0; ER/PA+ HER2 COPD (chronic obstructive pulmonary disease) (HCC) Hypertension Hypothyroidism : PAST SURGICAL HISTORY Procedure Laterality Date ARTHRP KNE CONDYLEANDPLATU MEDIALANDLAT COMPARTMENTS BREAST BIOPSY CARPAL TUNNEL COLOSTOMY/SKIN LEVEL CECOSTOMY EXCISION MAL LESION TRUNK/ARM/LEG 2.1-3.0 CM 10/14/2019 MASTECTOMY PARTIAL PRQ CARDIAC STENT W/ANGIO 1 VSL SENT LYMPH NODE BIOPSY STENT PLACEMENT : History reviewed. No pertinent family history.: SOCIAL HISTORY[1] Allergies: ALLERGIES Allergen Reactions Penicillins Unknown Sulfa (Sulfonamide * Unknown Current Medications: Current Outpatient Medications Medication Sig Dispense Refill clopidogrel (PLAVIX) 75 mg tablet take 1 tablet (75 mg) by mouth in the morning. pantoprazole DR (PROTONIX) 20 mg tablet TAKE 1 TABLET (20 MG) BY MOUTH BEFORE BREAKFAST. DO NOT CRUSH, CHEW, OR SPLIT. metoprolol succinate ER (TOPROL XL) 25 mg 24 hr tablet TAKE 1/2 TABLET BY MOUTH DAILY DIRECTED levothyroxine (SYNTHROID) 88 mcg tablet Take 88 mcg by mouth daily before breakfast. cyanocobalamin (VITAMIN B-12) 100 mcg tab Take 100 mcg by mouth. ascorbic acid/vitamin E/biotin (HAIR, SKIN, NAILS WITH BIOTIN PO) Take by mouth. CALCIUM ORAL Take 1,200 mg by mouth once daily. isosorbide mononitrate ER (IMDUR) 60 mg 24 hr tablet Take 60 mg by mouth once daily. (Patient taking differently: Take 90 mg by mouth once daily.) temazepam (RESTORIL) 30 mg cap Take 30 mg by mouth daily at bedtime. inulin (FIBER GUMMIES ORAL) Take by mouth. acetaminophen (TYLENOL EXTRA STRENGTH) 500 mg tablet Take 500 mg by mouth every 6 hours as needed. albuterol HFA (VENTOLIN HFA) 90 mcg/actuation inhaler Ventolin HFA 90 mcg/actuation aerosol inhaler aspirin, enteric coated (ASPIRIN, ENTERIC COATED) 81 mg EC tablet Take 81 mg by mouth q 24 HR. atorvastatin (LIPITOR) 40 mg tablet Take 40 mg by mouth once daily. lisinopril (ZESTRIL, PRINIVIL) 20 mg tablet Take 20 mg by mouth once daily. glycopyrrolate-formoterol (BEVESPI AEROSPHERE) 9-4.8 mcg Inhale 2 puffs as instructed two times a day. 1 each 11 ketoconazole (NIZORAL) 2 % shampoo APPLY WASH TO SCALP EVERY OTHER DAY. LET SIT FOR 5 MINUTES BEFORE RINSING. (Patient not taking: APPLY WASH TO SCALP EVERY OTHER DAY. LET (more content not included)... Normal [facility] SPIROMETRY WITH DILATOR IF O BSTRUCTEDon 03-10-2025 SPIROMETRY WITH DILATOR IF OBSTRUCTED [address] 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 Start of test and EOFE criteria met. Medications and Allergies were reviewed for possible drug interactions per policy. No contraindications or sensitivities were noted. Meds taken: Trelegy Ellipta, 27.5 hours before testing. 4 puffs Albuterol (360 mcg) delivered by MDI via holding chamber. HR pre = 54 /min, HR post = 55 /min. //LW IMPRESSION: Spirometry indicates moderately severe obstruction. There is no significant bronchodilator response. Electronically Signed On 03-11-2025 11:01:02 EDT by Sadie Duke MD ID: [id number] Name: NORA GIBBS Race: White Ht: 60.08 in Wt: 173.28 lbs Age: 84 Gender: Female : 1940 Dx: Other forms of dyspnea Smoking Hx: Non-smoker Doctor: DAINA MONTELONGO Test Date: 03/10/2025 Site: [facility] Tech: Ngoc Zepeda PRE-BRONCH POST-BRONCH Kan LLN Pred ULN %Pred ZScore Kan %Pred %Chg ZScore SPIROMETRY FVC 1.62 1.40 2.06 2.75 78 -1.11 1.63 79 0 -1.06 FEV1 0.87 1.04 1.57 2.06 55 -2.15 0.87 55 0 -2.14 FEV1/FVC 0.54 0.64 0.78 0.90 69 -2.56 0.53 68 0 -2.60 FEFMax 3.32 1.98 3.49 5.00 95 -0.19 2.88 82 -13 -0.66 FEF50 0.34 0.77 2.37 3.98 14 -2.08 0.34 14 0 -2.08 FIF50 2.29 1.76 -22 FEF50/FIF50 0.15 90-100 0.19 29 FIVC 1.53 1.44 -5 MRX88-50 0.24 0.49 1.26 2.48 18 -2.53 0.25 19 5 -2.48 ExpiredTime 11.32 12.09 6 TimeToFEFMax 0.10 0.07 -32 ROSALINDA 0.05 0.04 -31 VolExtrap% 3 2 -32 Comments: PRE and POST BD: Current ATS/ERS acceptability and repeatability standards for spirometry met. Start of test and EOFE criteria met. Medications and Allergies were reviewed for possible drug interactions per policy. No contraindications or sensitivities were noted. Meds taken: Trelegy Ellipta, 27.5 hours before testing. 4 puffs Albuterol (360 mcg) delivered by MDI via holding chamber. HR pre = 54 /min, HR post = 55 /min. //LW FVC_PRE (L) : 1.62 L FVC_POST (L) : 1.63 L FVC_PRED (L) : 2.06 L FVC_LLN (L) : 1.40 L FVC_ULN (L) : 2.75 L FEV1_PRE (L) : 0.87 L FEV1_POST (L) : 0.87 L FEV1_PRED (L) : 1.57 L FEV1_LLN (L) : 1.04 L FEV1_ULN (L) : 2.06 L FEV1/FVC_PRE (%) : 54 % FEV1/FVC_POST (%) : 53 % FEV1/FVC_PRED (%) : 78 % FEV1/FVC_LLN (%) : 64 % CHW63_EGQ (L/S) : 1.63 L/S WLX91_HFTU (L/S) : 1.55 L/S YJU07_DNF (L/S) : 0.09 L/S LDV40_NHYX (L/S) : 0.09 L/S SVF02_APLR (L/S) : 0.25 L/S PMU29_BYV (L/S) : 0.08 L/S JTP43_HEN (L/S) : 0.81 L/S PAB42-34%_PRE (L/S) : 0.24 L/S PVW08-73%_POST (L/S) : 0.25 L/S GHW30-27%_PRED (L/S) : 1.26 L/S TFO59-23%_LLN (L/S) : 0.49 L/S PEF_PRE (L/S) : 3.32 L/S PEF_POST (L/S) : 2.88 L/S PEFMAX_LLN (L/S) : 1.98 L/S PEFMAX_ULN (L/S) : 5.00 L/S FET_PRE (S) : 11.32 S FET_POST (S) : 12.09 S Normal [facility] XR CHEST 2V FRONTAL/LATon XR CHEST 2V FRONTAL/LAT * * *Final Report* * * DATE OF EXAM: Mar 10 2025 11:23AM NRX [id number] - XR CHEST 2V FRONTAL/LAT / PROCEDURE REASON: Dyspnea on exertion * * * * Physician Interpretation * * * * RESULT: FRONTAL AND LATERAL CHEST RADIOGRAPHS HISTORY: Dyspnea on exertion . TECHNIQUE: Frontal and lateral views of the chest were obtained. COMPARISON: Chest CT outside hospital 02/27/2025 RESULT: Cardiomediastinal silhouette is enlarged. No consolidative opacity. No pleural effusion or pneumothorax. Pulmonary vasculature is unremarkable. IMPRESSION: No acute cardiopulmonary process. Transcribe Date/Time: Mar 10 2025 1:35P Dictated by: MALACHI MURPHY MD This examination was interpreted and the report reviewed and electronically signed by: MALACHI MURPHY MD on Mar 10 2025 1:43PM EST Thank you for allowing us to participate in the care of your patient. Should there be any questions regarding this interpretation, please call [phone]. If you are unable to reach us at the number above, please feel free to contact [facility]iology at [phone]. [id number] Normal [facility] 36on 01-08-2025 36 Patient called gabriela wolf since isosorbide was increased from 90mg to 120mg daily she's had LE edema. No increased SOB. Said her BP has been good. Any recommendations? She wanted to know if she can go back down to the 90mg daily? Please advise. Thanks. Normal [facility] Follow-Upon 12-29-2024 Follow-Up [id number] Clari Gibbs 1940 F Date Provider Department Center 12/29/2024 BALA MORGAN CARD [facility] Family History Problem Relation Age of Onset No Known Problems Mother No Known Problems Father Hypertension Brother Family Status - Relation Status Age at Mother Father Brother Level of Service:70212 PA OFFICE/OUTPATIENT ESTABLISHED MOD MDM 30 MIN Normal [facility] 3011-22-2024 30 The patient is Moder ately Stable - Low risk of patient condition declining or worsening The patient's goals for the shift include comfort The clinical goals for the shift include VSS, safety [facility] 30 The patient is Moder ately Stable - Low risk of patient condition declining or worsening The patient's goals for the shift include rest, comfort The clinical goals for the shift include vss Normal [facility] APOLIPOPROTEIN B-100on 11-22 Magnesium [Mass/Vol] 49 mg/dL Low 60-117 [facility] Comment on above: Result Comment: REFE RENCE [...] atherosclerotic cardiovascular disease in adults. Performed By: [place] [address] Dining Room Hostess: Paulino العراقي MD, PhD CLIA Number: [id number] Performed By: #### L [id number] #### [facility] ([facility] [address] [place] [address] BASIC METABOLIC PANELon 06- Anion gap [Moles/Vol] 10 mmol/L Normal 7-20 [facility] Comment on above: Performed By: #### L AB15 #### [facility] (BEAK[facility]) [address] [place] [address] Calcium [Mass/Vol] 8.5 mg/dL Low 8.6-10.3 [facility] Comment on above: Performed By: #### L AB15 #### [facility] (BEAK[facility]) [address] [place] [address] Chloride [Moles/Vol] 109 mmol/L High 98-107 [facility] Comment on above: Performed By: #### L AB15 #### [facility] ([facility]AK[facility]) [address] [place] [address] CO2 [Moles/Vol] 26 mmol/L Normal 21-31 [facility] Comment on above: Performed By: #### L AB15 #### [facility] (BEAKER) [address] [place] [address] Creatinine [Mass/Vol] 0.98 mg/dL Normal 0.60-1.20 [facility] Comment on above: Performed By: #### L AB15 #### [facility] (BEAK[facility]) [address] [place] [address] GLOMERULAR FILTRATION RATE ML/MIN/1.73 SQ M.PREDICTED 56.2 mL/min/1.73m*2 Low >60.0 [facility] Comment on above: Result Comment: The [facility]???s estimated glomerular filtration rate (eGFR) will no [...] individuals. Performed By: #### L [id number] #### [facility] ([facility]) [address] [place] [address] Glucose [Mass/Vol] 115 mg/dL High 70-100 [facility] Comment on above: Performed By: #### L [id number] #### [facility] ([facility]) [address] [place] [address] Potassium [Moles/Vol] 4.0 mmol/L Normal 3.5-5.1 [facility] Comment on above: Performed By: #### L [id number] #### [facility] ([facility]) [address] [place] [address] Sodium [Moles/Vol] 141 mmol/L Normal 136-145 [facility] Comment on above: Performed By: #### L [id number] #### [facility] ([facility]) [address] [address] Urea nitrogen [Mass/Vol] 23 mg/dL Normal 7-25 [facility] Comment on above: Performed By: #### L [id number] #### [facility] ([facility]) [address] [place] [address] UREA NITROGEN/CREATININE (MASS RATIO) IN SER/PLAS 23.5 Normal [facility] Comment on above: Performed By: #### L [id number] #### [facility] ([facility]) [address] [place] [address] CBCon 11-22-2024 Erythrocyte distribution width (RBC) [Ratio] 13.6 % Normal 11.5-15.0 [facility] Comment on above: Performed By: #### L [id number] #### [facility] ([facility]) [address] [place] [address] ERYTHROCYTE MEAN CORPUSCULAR HEMOGLOBIN CONCENTRATION (G/DL) BY AUTOMATED 33.0 g/dL Normal 32.0-35.0 [facility] Comment on above: Performed By: #### L [id number] #### [facility] [address] [place] [address] Hematocrit (Bld) [Volume fraction] 31.8 % Low 36.0-45.0 [facility] Comment on above: Performed By: #### L [id number] #### [facility] [address] [place] [address] Hemoglobin (Bld) [Mass/Vol] 10.5 g/dL Low 12.0-15.0 [facility] Comment on above: Performed By: #### L [id number] #### [facility] [address] [place] [address] MCH (RBC) [Entitic mass] 30.0 pg Normal 27.0-33.0 [facility] Comment on above: Performed By: #### L [id number] #### [facility] ([facility]) [address] [place] [address] MCV (RBC) [Entitic vol] 90.9 fL Normal 82.0-98.0 [facility] Comment on above: Performed By: #### L [id number] #### [facility] [address] [place] [address] PLATELETS (10*3/UL) IN BLOOD AUTOMATED COUNT 163 10*3/uL Normal 150-400 [facility] Comment on above: Performed By: #### L [id number] #### [facility] ([facility] [address] [place] [address] RBC (Bld) [#/Vol] 3.50 10*6/uL Low 3.80-5.00 [facility] Comment on above: Performed By: #### L [id number] #### [facility] ([facility] [address] [place] [address] WBC (Bld) [#/Vol] 7.46 10*3/uL Normal 4.00-10.60 [facility] Comment on above: Performed By: #### L [id number] #### [facility] ([facility] [address] [place] [address] LIPID PANELon 11-22-2024 CHOL/HDL 2.2 mg/dL Normal [facility] Comment on above: Performed By: #### L [id number] ####[facility] ([facility])[address] [place] [address] Cholesterol [Mass/Vol] 91 mg/dL Low 120-200 [facility] Comment on above: Performed By: #### L [id number] ####[facility] ([facility])[address] [place] [address] Magnesium [Mass/Vol] 106 mg/dL Normal <150 [facility] Comment on above: Result Comment: TRIG LYCERIDE REFERENCE RANGE: 20 YEARS AND OLDER CARDIOVASCULAR RISK LESS THAN 150 mg/dL LOW RISK 150 TO 199 mg/dL BORDERLINE RISK 200 mg/dL AND GREATER HIGH RISK Performed By: #### L [id number] ####[facility] ([facility])[address] [place] [address] Magnesium [Mass/Vol] 29 mg/dL Normal 0-160 [facility] Comment on above: Performed By: #### L [id number] ####[facility] ([facility] [place] [address] Magnesium [Mass/Vol] 41 mg/dL Normal 23-92 [facility] Comment on above: Performed By: #### L [id number] ####[facility] ([facility] [place] [address] NON HDL CHOL. (LDL+VLDL) 50 Normal [facility] Comment on above: Performed By: #### L [id number] ####[facility] ([facility])[address] [place] [address] TOTAL VLDL-C 21 mg/dL Normal 0-40 [facility] Comment on above: Performed By: #### L [id number] ####[facility] ([facility] [place] [address] NURSNOTEon 11-22-2024 NURSNOTE Pt discharged with belongings including AVS with family Normal [facility] Orders Onlyon 11-22-2024 Orders Only [id number] Clari Gibbs ty L 1940 F Date Provider Department [place] 11/22/2024 [id number], [facility] Family History Problem Relation Age of Onset No Known Problems Mother No Known Problems Father Hypertension Brother Family Status - Relation Status Age at Mother Father Brother Normal [facility] BASIC METABOLIC PANELon 11-09 Anion gap [Moles/Vol] 12 mmol/L Normal 7-20 [facility] Comment on above: Performed By: #### L [id number] ####[facility] ([facility] [place] [address] Calcium [Mass/Vol] 8.9 mg/dL Normal 8.6-10.3 [facility] Comment on above: Performed By: #### L [id number] ####[facility] ([facility] [place] [address] Chloride [Moles/Vol] 108 mmol/L High 98-107 [facility] Comment on above: Performed By: #### L [id number] ####[facility] [place] [address] CO2 [Moles/Vol] 23 mmol/L Normal 21-31 [facility] Comment on above: Performed By: #### L [id number] ####[facility] ([facility])[address] [place] [address] Creatinine [Mass/Vol] 0.91 mg/dL Normal 0.60-1.20 [facility] Comment on above: Performed By: #### L [id number] ####[facility] ([facility] [place] [address] GLOMERULAR FILTRATION RATE ML/MIN/1.73 SQ M.PREDICTED 61.4 mL/min/1.73m*2 Normal >60.0 [facility] Comment on above: Result Comment: The [facility]???s estimated glomerular filtration rate (eGFR) will no [...] of individuals. Performed By: #### L [id number] ####[facility] ([facility])[address] [place] [address] Glucose [Mass/Vol] 113 mg/dL High 70-100 [facility] Comment on above: Performed By: #### L [id number] ####[facility] ([facility])[address] [place] [address] Potassium [Moles/Vol] 4.2 mmol/L Normal 3.5-5.1 [facility] Comment on above: Performed By: #### L [id number] ####[facility] ([facility])[address] [place] [address] Sodium [Moles/Vol] 139 mmol/L Normal 136-145 [facility] Comment on above: Performed By: #### L [id number] ####[facility] [place] [address] Urea nitrogen [Mass/Vol] 22 mg/dL Normal 7-25 [facility] Comment on above: Performed By: #### L [id number] ####[facility] ([facility])[address] [place] [address] UREA NITROGEN/CREATININE (MASS RATIO) IN SER/PLAS 24.2 Normal [facility] Comment on above: Performed By: #### L [id number] ####[facility] ([facility])[address] [place] [address] CBCon 11-21-2024 Erythrocyte distribution width (RBC) [Ratio] 13.6 % Normal 11.5-15.0 [facility] Comment on above: Performed By: #### L [id number] #### [facility] ([facility]) [address] [place] [address] ERYTHROCYTE MEAN CORPUSCULAR HEMOGLOBIN CONCENTRATION (G/DL) BY AUTOMATED 32.0 g/dL Normal 32.0-35.0 [facility] Comment on above: Performed By: #### L [id number] #### [facility] ([facility]) [address] [place] [address] Hematocrit (Bld) [Volume fraction] 35.3 % Low 36.0-45.0 [facility] Comment on above: Performed By: #### L [id number] #### [facility] ([facility]) [address] [place] [address] Hemoglobin (Bld) [Mass/Vol] 11.3 g/dL Low 12.0-15.0 [facility] Comment on above: Performed By: #### L [id number] #### [facility] ([facility]) [address] [place] [address] MCH (RBC) [Entitic mass] 29.7 pg Normal 27.0-33.0 [facility] Comment on above: Performed By: #### L [id number] #### [facility] ([facility]) [address] [place] [address] MCV (RBC) [Entitic vol] 92.7 fL Normal 82.0-98.0 [facility] Comment on above: Performed By: #### L [id number] #### [facility] ([facility]) [address] [place] [address] PLATELETS (10*3/UL) IN BLOOD AUTOMATED COUNT 186 10*3/uL Normal 150-400 [facility] Comment on above: Performed By: #### L [id number] #### [facility] ([facility]) [address] [place] [address] RBC (Bld) [#/Vol] 3.81 10*6/uL Normal 3.80-5.00 [facility] Comment on above: Performed By: #### L [id number] #### [facility] ([facility]) [address] [place] [address] WBC (Bld) [#/Vol] 11.10 10*3/uL High 4.00-10.60 [facility] Comment on above: Performed By: #### L [id number] #### [facility] ([facility]) [address] [place] [address] HPon 11-21-2024 History Of Present Illness Nora [...] has a past medical history of Cancer ([facility]), COPD (chronic obstructive pulmonary disease) ([facility]), Coronary artery disease, and Hypertension. Surgical History [...] Shortness of breath Coronary artery disease involving gila river coronary artery of gila river heart with other form of an (more content not included)... Normal [facility] Basophils Auto (Bld) [#/Vol] on 11-14-2024 Basophils (Bld) [#/Vol] Automated basophil count 0.0-0.1 [facility] Basophils (Bld) [#/Vol] 0.0 10 3/uL 0.0-0.1 [facility] Basophils/100 WBC Auto (Bld) on 11-14-2024 Basophils/100 WBC (Bld) Automated basophil % 0.2-2.0 [facility] Basophils/100 WBC (Bld) 0.4 % 0.2-2.0 [facility] Eosinophils/100 WBC Auto (Bl d)on 11-14-2024 Eosinophils/100 WBC (Bld) Automated eosinophil % 0.9-7.0 [facility] Eosinophils/100 WBC (Bld) 4.6 % 0.9-7.0 [facility] Erythrocyte distribution wid th Auto (RBC) [Ratio]on 11-14-2024 Erythrocyte distribution width (RBC) [Ratio] Erythrocyte distribution width [Ratio] by Automated count 11.0-15.0 [facility] Erythrocyte distribution width (RBC) [Ratio] 13.4 % 11.0-15.0 [facility] Estimated glomerular filtrat ion rate (GFR) non- Americanon 11-14-2024 GFR/1.73 sq M.predicted among non-blacks MDRD (S/P/Bld) [Vol rate/Area] Estimated glomerular filtration rate (GFR) non- Low >=60 mL/min/1.[address] [facility] GFR/1.73 sq M.predicted among non-blacks MDRD (S/P/Bld) [Vol rate/Area] 48 mL/min/{1.73_m2} Low >=60 mL/min/1.[address] [facility] Hematocrit Auto (Bld) [Volum e fraction]on 11-14-2024 Hematocrit (Bld) [Volume fraction] Hematocrit [Volume Fraction] of Blood by Automated count 36.0-48.0 [facility] Hematocrit (Bld) [Volume fraction] 37.3 % 36.0-48.0 [facility] Hemoglobin [Mass/volume] in Bloodon 11-14-2024 Hemoglobin (Bld) [Mass/Vol] Hemoglobin [Mass/volume] in Blood 12.0-16.0 [facility] Hemoglobin (Bld) [Mass/Vol] 12.3 g/dL 12.0-16.0 [facility] Laboratory - Chemistry and C hemistry - challengeon 11-14-2024 Calcium [Mass/Vol] 9.5 mg/dL 8.5-10.1 [facility] Chloride [Moles/Vol] 107 mmol/L 98-107 [facility] CO2 [Moles/Vol] 27.0 mmol/L 21.0-32.0 [facility] Creatinine [Mass/Vol] 1.08 mg/dL High 0.55-1.02 [facility] GFR/1.73 sq M.predicted MDRD (S/P/Bld) [Vol rate/Area] 58 mL/min/{1.73_m2} Low >=60 mL/min/1.[address] [facility] Glucose [Mass/Vol] 139 mg/dL High 74-106 [facility] Potassium [Moles/Vol] 4.0 mmol/L 3.5-5.1 [facility] Sodium [Moles/Vol] 143 mmol/L 136-145 [facility] Urea nitrogen [Mass/Vol] 24.0 mg/dL High 7.0-18.0 [facility] Urea nitrogen/Creatinine [Mass ratio] 22.2 mg/mg [facility] Laboratory - Hematology and Cell countson 11-14-2024 Immature granulocytes/100 WBC (Bld) 0.3 % 0.0-0.5 [facility] Leukocytes [#/volume] correc katia for nucleated erythrocytes in Blood by Automated counon 11-14-2024 WBC corrected for nucl RBC Auto (Bld) [#/Vol] Leukocytes [#/volume] corrected for nucleated erythrocytes in Blood by Automated coun 4.0-11.0 [facility] WBC corrected for nucl RBC Auto (Bld) [#/Vol] 6.8 10 3/uL 4.0-11.0 [facility] Lymphocytes Auto (Bld) [#/Vo l]on 11-14-2024 Lymphocytes (Bld) [#/Vol] Lymphocytes [#/volume] in Blood by Automated count 1.2-3.8 [facility] Lymphocytes (Bld) [#/Vol] 1.2 10 3/uL 1.2-3.8 [facility] Lymphocytes/100 WBC Auto (Bl d)on 11-14-2024 Lymphocytes/100 WBC (Bld) Lymphocytes/100 leukocytes in Blood by Automated count Low 20.5-60.0 [facility] Lymphocytes/100 WBC (Bld) 18.2 % Low 20.5-60.0 [facility] MCH Auto (RBC) [Entitic mass ]on 11-14-2024 MCH (RBC) [Entitic mass] MCH [Entitic mass] by Automated count 26.7-34.0 [facility] MCH (RBC) [Entitic mass] 30.2 pg 26.7-34.0 [facility] MCHC Auto (RBC) [Mass/Vol]on 11-14-2024 MCHC (RBC) [Mass/Vol] MCHC [Mass/volume] by Automated count 29.9-35.2 [facility] MCHC (RBC) [Mass/Vol] 33.0 g/dL 29.9-35.2 [facility] MCV Auto (RBC) [Entitic vol] on 11-14-2024 MCV (RBC) [Entitic vol] MCV [Entitic volume] by Automated count 81.0-99.0 [facility] MCV (RBC) [Entitic vol] 91.6 fL 81.0-99.0 [facility] Monocytes Auto (Bld) [#/Vol] on 11-14-2024 Monocytes (Bld) [#/Vol] Automated blood monocyte count 0.3-0.8 [facility] Monocytes (Bld) [#/Vol] 0.7 10 3/uL 0.3-0.8 [facility] Monocytes/100 WBC Auto (Bld) on 11-14-2024 Monocytes/100 WBC (Bld) Automated monocyte % 1.7-12.0 [facility] Monocytes/100 WBC (Bld) 10.4 % 1.7-12.0 [facility] Neutrophils Auto (Bld) [#/Vo l]on 11-14-2024 Neutrophils (Bld) [#/Vol] Neutrophils [#/volume] in Blood by Automated count 1.4-6.5 [facility] Neutrophils (Bld) [#/Vol] 4.5 10 3/uL 1.4-6.5 [facility] Neutrophils/100 WBC Auto (Bl d)on 11-14-2024 Neutrophils/100 WBC (Bld) Automated neutrophil % 43.0-75.0 [facility] Neutrophils/100 WBC (Bld) 66.1 % 43.0-75.0 [facility] No Panel Informationon 11-14 Eosinophils # (Auto) 0.3 10 3/uL 0.0-0.7 [facility] Immature Granulocyte # (Auto) 0.02 10 3/uL 0.00-0.03 [facility] Orders Onlyon 11-14-2024 Orders Only [id number] Clari Gibbs ty L 1940 F Date Provider Department Center 11/14/2024 [facility] Family History Problem Relation Age of Onset No Known Problems Mother No Known Problems Father Hypertension Brother Family Status - Relation Status Age at Mother Father Brother Normal [facility] Platelet mean volume Auto (B ld) [Entitic vol]on 11-14-2024 Platelet mean volume (Bld) [Entitic vol] Platelet mean volume [Entitic volume] in Blood by Automated count 9.5-13.5 [facility] Platelet mean volume (Bld) [Entitic vol] 11.7 fL 9.5-13.5 [facility] Platelets Auto (Bld) [#/Vol] on 11-14-2024 Platelets (Bld) [#/Vol] Platelets [#/volume] in Blood by Automated count 150-450 [facility] Platelets (Bld) [#/Vol] 184 10 3/uL 150-450 [facility] RBC Auto (Bld) [#/Vol]on RBC (Bld) [#/Vol] Erythrocytes [#/volu me] in Blood by Automated count Low 4.20-5.40 [facility] RBC (Bld) [#/Vol] 4.07 10 6/uL Low 4.20-5.40 [facility] Serum or plasma anion gap de terminationon 11-14-2024 Anion gap [Moles/Vol] Serum or plasma an ion gap determination [facility] Anion gap [Moles/Vol] 13.0 mmol/L [facility] 11-13-2024 Orders Only [id number] Clari Gibbs L 1940 F Date Provider Department Center 11/13/2024 JANY [facility]IP[facility] Family History Problem Relation Age of Onset No Known Problems Mother No Known Problems Father Hypertension Brother Family Status - Relation Status Age at Mother Father Brother [facility] 3610-15-2024 34 Patient called me roland [...] know if we could move her up. [facility] 10-13-2024 34 Patient called c/o S OB. She could barely speak on the phone. Says she's been to [facility] ED twice the past 2 weeks [...] and he is ok with this. Normal [facility] Telephoneon 10-13-2024 Telephone [id number] Clari Gibbs Marianne 1940 F Date Provider Department Center 10/13/2024 [id number] MAZARIEGOS Family History Problem Relation Age of Onset No Known Problems Mother No Known Problems Father Hypertension Brother Family Status - Relation Status Age at Mother Father Brother [facility] Basophils Auto (Bld) [#/Vol] on 10-09-2024 Basophils (Bld) [#/Vol] Automated basophil count 0.0-0.1 [facility] Basophils (Bld) [#/Vol] 0.0 10 3/uL 0.0-0.1 [facility] Basophils/100 WBC Auto (Bld) on 10-09-2024 Basophils/100 WBC (Bld) Automated basophil % 0.2-2.0 [facility] Basophils/100 WBC (Bld) 0.3 % 0.2-2.0 [facility] Eosinophils/100 WBC Auto (Bl d)on 10-09-2024 Eosinophils/100 WBC (Bld) Automated eosinophil % 0.9-7.0 [facility] Eosinophils/100 WBC (Bld) 1.8 % 0.9-7.0 [facility] Erythrocyte distribution wid th Auto (RBC) [Ratio]on 10-09-2024 Erythrocyte distribution width (RBC) [Ratio] Erythrocyte distribution width [Ratio] by Automated count 11.0-15.0 [facility] Erythrocyte distribution width (RBC) [Ratio] 12.7 % 11.0-15.0 [facility] Estimated glomerular filtrat ion rate (GFR) non- Americanon 10-09-2024 GFR/1.73 sq M.predicted among non-blacks MDRD (S/P/Bld) [Vol rate/Area] 48 mL/min/{1.73_m2} Low >=60 mL/min/1.[address] [facility] Fibrin D-dimer [Presence] in Platelet poor plasma by Latex agglutinationon 10-09-2024 Fibrin D-dimer LA Ql (PPP) Fibrin D-dimer [Presence] in Platelet poor plasma by Latex agglutination Critically high <=0.59 [facility] Comment on above: RESULTS CALLED TO DR [...] (PPP) 1.17 mg/L FEU Critically high <=0.59 [facility] Comment on above: RESULTS CALLED TO DR [...] on 10-09-2024 Globulin (S) [Mass/Vol] 4.3 g/dL [facility] Hematocrit Auto (Bld) [Volum e fraction]on 10-09-2024 Hematocrit (Bld) [Volume fraction] Hematocrit [Volume Fraction] of Blood by Automated count 36.0-48.0 [facility] Hematocrit (Bld) [Volume fraction] 36.7 % 36.0-48.0 [facility] Hemoglobin [Mass/volume] in Bloodon 10-09-2024 Hemoglobin (Bld) [Mass/Vol] Hemoglobin [Mass/volume] in Blood 12.0-16.0 [facility] Hemoglobin (Bld) [Mass/Vol] 12.0 g/dL 12.0-16.0 [facility] Laboratory - Chemistry and C hemistry - challengeon 10-09-2024 Albumin [Mass/Vol] 3.0 g/dL Low 3.4-5.0 [facility] ALP [Catalytic activity/Vol] 95 U/L 46-116 [facility] ALT [Catalytic activity/Vol] 28 U/L 14-59 [facility] AST [Catalytic activity/Vol] 25 U/L 15-37 [facility] Bilirubin [Mass/Vol] 0.5 mg/dL 0.2-1.0 [facility] Calcium [Mass/Vol] 8.7 mg/dL 8.5-10.1 [facility] Chloride [Moles/Vol] 110 mmol/L High 98-107 [facility] CO2 [Moles/Vol] 27.5 mmol/L 21.0-32.0 [facility] Creatinine [Mass/Vol] 1.09 mg/dL High 0.55-1.02 [facility] GFR/1.73 sq M.predicted MDRD (S/P/Bld) [Vol rate/Area] 58 mL/min/{1.73_m2} Low >=60 mL/min/1.[address] [facility] Glucose [Mass/Vol] 117 mg/dL High 74-106 [facility] Magnesium [Mass/Vol] 1.9 mg/dL 1.8-2.4 [facility] Natriuretic peptide B (Bld) [Mass/Vol] 1102.0 pg/mL <=1800.0 [facility] Potassium [Moles/Vol] 4.4 mmol/L 3.5-5.1 [facility] Protein [Mass/Vol] 7.3 g/dL 6.4-8.2 [facility] Sodium [Moles/Vol] 148 mmol/L High 136-145 [facility] Urea nitrogen [Mass/Vol] 22.0 mg/dL High 7.0-18.0 [facility] Urea nitrogen/Creatinine [Mass ratio] 20.2 mg/mg [facility] Laboratory - Hematology and Cell countson 10-09-2024 ESR (Bld) [Velocity] 120 mm/h High <=30 [facility] Immature granulocytes/100 WBC (Bld) 0.4 % 0.0-0.5 [facility] Leukocytes [#/volume] correc katia for nucleated erythrocytes in Blood by Automated counon 10-09-2024 WBC corrected for nucl RBC Auto (Bld) [#/Vol] Leukocytes [#/volume] corrected for nucleated erythrocytes in Blood by Automated coun High 4.0-11.0 [facility] WBC corrected for nucl RBC Auto (Bld) [#/Vol] 12.1 10 3/uL High 4.0-11.0 [facility] Lymphocytes Auto (Bld) [#/Vo l]on 10-09-2024 Lymphocytes (Bld) [#/Vol] Lymphocytes [#/volume] in Blood by Automated count Low 1.2-3.8 [facility] Lymphocytes (Bld) [#/Vol] 0.9 10 3/uL Low 1.2-3.8 [facility] Lymphocytes/100 WBC Auto (Bl d)on 10-09-2024 Lymphocytes/100 WBC (Bld) Lymphocytes/100 leukocytes in Blood by Automated count Low 20.5-60.0 [facility] Lymphocytes/100 WBC (Bld) 7.5 % Low 20.5-60.0 [facility] MCH Auto (RBC) [Entitic mass ]on 10-09-2024 MCH (RBC) [Entitic mass] MCH [Entitic mass] by Automated count 26.7-34.0 [facility] MCH (RBC) [Entitic mass] 29.9 pg 26.7-34.0 [facility] MCHC Auto (RBC) [Mass/Vol]on 10-09-2024 MCHC (RBC) [Mass/Vol] MCHC [Mass/volume] by Automated count 29.9-35.2 [facility] MCHC (RBC) [Mass/Vol] 32.7 g/dL 29.9-35.2 [facility] MCV Auto (RBC) [Entitic vol] on 10-09-2024 MCV (RBC) [Entitic vol] MCV [Entitic volume] by Automated count 81.0-99.0 [facility] MCV (RBC) [Entitic vol] 91.3 fL 81.0-99.0 [facility] Monocytes Auto (Bld) [#/Vol] on 10-09-2024 Monocytes (Bld) [#/Vol] Automated blood monocyte count High 0.3-0.8 [facility] Monocytes (Bld) [#/Vol] 1.1 10 3/uL High 0.3-0.8 [facility] Monocytes/100 WBC Auto (Bld) on 10-09-2024 Monocytes/100 WBC (Bld) Automated monocyte % 1.7-12.0 [facility] Monocytes/100 WBC (Bld) 8.9 % 1.7-12.0 [facility] Neutrophils Auto (Bld) [#/Vo l]on 10-09-2024 Neutrophils (Bld) [#/Vol] Neutrophils [#/volume] in Blood by Automated count High 1.4-6.5 [facility] Neutrophils (Bld) [#/Vol] 9.8 10 3/uL High 1.4-6.5 [facility] Neutrophils/100 WBC Auto (Bl d)on 10-09-2024 Neutrophils/100 WBC (Bld) Automated neutrophil % High 43.0-75.0 [facility] Neutrophils/100 WBC (Bld) 81.1 % High 43.0-75.0 [facility] No Panel Informationon 10-09 Eosinophils # (Auto) 0.2 10 3/uL 0.0-0.7 Fir [facility] Immature Granulocyte # (Auto) 0.05 10 3/uL High 0.00-0.03 [facility] Troponin I High Sensitivity 8.0 pg/mL 4.0-51.3 [facility] Comment on above: CUT-OFF POINTS HAVE BEEN [...] Partial Pressure CO2 38.8 mm[Hg] Low 40.0-52.0 [facility] Venous Blood pH 7.429 7.330-7.[address] [facility] Platelet mean volume Auto (B ld) [Entitic vol]on 10-09-2024 Platelet mean volume (Bld) [Entitic vol] Platelet mean volume [Entitic volume] in Blood by Automated count 9.5-13.5 [facility] Platelet mean volume (Bld) [Entitic vol] 10.4 fL 9.5-13.5 [facility] Platelets Auto (Bld) [#/Vol] on 10-09-2024 Platelets (Bld) [#/Vol] Platelets [#/volume] in Blood by Automated count 150-450 [facility] Platelets (Bld) [#/Vol] 240 10 3/uL 150-450 [facility] RBC Auto (Bld) [#/Vol]on RBC (Bld) [#/Vol] Erythrocytes [#/volu me] in Blood by Automated count Low 4.20-5.40 [facility] RBC (Bld) [#/Vol] 4.02 10 6/uL Low 4.20-5.40 [facility] Serum or plasma albumin/glob ulin mass ratioon 10-09-2024 Albumin/Globulin [Mass ratio] 0.7 {ratio} [facility] Serum or plasma anion gap de terminationon 10-09-2024 Anion gap [Moles/Vol] 14.9 mmol/L [facility] Basophils Auto (Bld) [#/Vol] on 10-04-2024 Basophils (Bld) [#/Vol] Automated basophil count 0.0-0.1 [facility] Basophils (Bld) [#/Vol] 0.0 10 3/uL 0.0-0.1 [facility] Basophils/100 WBC Auto (Bld) on 10-04-2024 Basophils/100 WBC (Bld) Automated basophil % 0.2-2.0 [facility] Basophils/100 WBC (Bld) 0.2 % 0.2-2.0 [facility] Eosinophils/100 WBC Auto (Bl d)on 10-04-2024 Eosinophils/100 WBC (Bld) Automated eosinophil % 0.9-7.0 [facility] Eosinophils/100 WBC (Bld) 1.5 % 0.9-7.0 [facility] Erythrocyte distribution wid th Auto (RBC) [Ratio]on 10-04-2024 Erythrocyte distribution width (RBC) [Ratio] Erythrocyte distribution width [Ratio] by Automated count 11.0-15.0 [facility] Erythrocyte distribution width (RBC) [Ratio] 13.1 % 11.0-15.0 [facility] Estimated glomerular filtrat ion rate (GFR) non- Americanon 10-04-2024 GFR/1.73 sq M.predicted among non-blacks MDRD (S/P/Bld) [Vol rate/Area] Estimated glomerular filtration rate (GFR) non- Low >=60 mL/min/1.[address] [facility] GFR/1.73 sq M.predicted among non-blacks MDRD (S/P/Bld) [Vol rate/Area] 36 mL/min/{1.73_m2} Low >=60 mL/min/1.[address] [facility] Hematocrit Auto (Bld) [Volum e fraction]on 10-04-2024 Hematocrit (Bld) [Volume fraction] Hematocrit [Volume Fraction] of Blood by Automated count 36.0-48.0 [facility] Hematocrit (Bld) [Volume fraction] 38.3 % 36.0-48.0 [facility] Hemoglobin [Mass/volume] in Bloodon 10-04-2024 Hemoglobin (Bld) [Mass/Vol] Hemoglobin [Mass/volume] in Blood 12.0-16.0 [facility] Hemoglobin (Bld) [Mass/Vol] 12.4 g/dL 12.0-16.0 [facility] Laboratory - Chemistry and C hemistry - challengeon 10-04-2024 Calcium [Mass/Vol] 9.3 mg/dL 8.5-10.1 [facility] Chloride [Moles/Vol] 103 mmol/L 98-107 [facility] CO2 [Moles/Vol] 28.5 mmol/L 21.0-32.0 [facility] Creatinine [Mass/Vol] 1.38 mg/dL High 0.55-1.02 [facility] GFR/1.73 sq M.predicted MDRD (S/P/Bld) [Vol rate/Area] 44 mL/min/{1.73_m2} Low >=60 mL/min/1.[address] [facility] Glucose [Mass/Vol] 145 mg/dL High 74-106 [facility] Natriuretic peptide B (Bld) [Mass/Vol] 496.0 pg/mL <=1800.0 [facility] Potassium [Moles/Vol] 4.2 mmol/L 3.5-5.1 [facility] Sodium [Moles/Vol] 141 mmol/L 136-145 [facility] Urea nitrogen [Mass/Vol] 24.0 mg/dL High 7.0-18.0 [facility] Urea nitrogen/Creatinine [Mass ratio] 17.4 mg/mg [facility] Laboratory - Hematology and Cell countson 10-04-2024 Immature granulocytes/100 WBC (Bld) 0.3 % 0.0-0.5 [facility] Laboratory - Microbiology an d Antimicrobial susceptibilityon 10-04-2024 S. pyogenes Ag Ql (Unsp spec) Negative [facility] SARS-CoV-2 (COVID-19) RNA TOMMY+probe Ql (Unsp spec) Negative NEGATIVE [facility] Comment on above: This test has not [...] in Blood by Automated coun High 4.0-11.0 [facility] WBC corrected for nucl RBC Auto (Bld) [#/Vol] 12.3 10 3/uL High 4.0-11.0 [facility] Lymphocytes Auto (Bld) [#/Vo l]on 10-04-2024 Lymphocytes (Bld) [#/Vol] Lymphocytes [#/volume] in Blood by Automated count 1.2-3.8 [facility] Lymphocytes (Bld) [#/Vol] 1.3 10 3/uL 1.2-3.8 [facility] Lymphocytes/100 WBC Auto (Bl d)on 10-04-2024 Lymphocytes/100 WBC (Bld) Lymphocytes/100 leukocytes in Blood by Automated count Low 20.5-60.0 [facility] Lymphocytes/100 WBC (Bld) 10.7 % Low 20.5-60.0 [facility] MCH Auto (RBC) [Entitic mass ]on 10-04-2024 MCH (RBC) [Entitic mass] MCH [Entitic mass] by Automated count 26.7-34.0 [facility] MCH (RBC) [Entitic mass] 30.0 pg 26.7-34.0 [facility] MCHC Auto (RBC) [Mass/Vol]on 10-04-2024 MCHC (RBC) [Mass/Vol] MCHC [Mass/volume] by Automated count 29.9-35.2 [facility] MCHC (RBC) [Mass/Vol] 32.4 g/dL 29.9-35.2 [facility] MCV Auto (RBC) [Entitic vol] on 10-04-2024 MCV (RBC) [Entitic vol] MCV [Entitic volume] by Automated count 81.0-99.0 [facility] MCV (RBC) [Entitic vol] 92.7 fL 81.0-99.0 [facility] Monocytes Auto (Bld) [#/Vol] on 10-04-2024 Monocytes (Bld) [#/Vol] Automated blood monocyte count High 0.3-0.8 [facility] Monocytes (Bld) [#/Vol] 1.4 10 3/uL High 0.3-0.8 [facility] Monocytes/100 WBC Auto (Bld) on 10-04-2024 Monocytes/100 WBC (Bld) Automated monocyte % 1.7-12.0 [facility] Monocytes/100 WBC (Bld) 11.5 % 1.7-12.0 [facility] Neutrophils Auto (Bld) [#/Vo l]on 10-04-2024 Neutrophils (Bld) [#/Vol] Neutrophils [#/volume] in Blood by Automated count High 1.4-6.5 [facility] Neutrophils (Bld) [#/Vol] 9.3 10 3/uL High 1.4-6.5 [facility] Neutrophils/100 WBC Auto (Bl d)on 10-04-2024 Neutrophils/100 WBC (Bld) Automated neutrophil % High 43.0-75.0 [facility] Neutrophils/100 WBC (Bld) 75.8 % High 43.0-75.0 [facility] No Panel Informationon 10-04 Bedside Influenza Type A Antigen Negative [facility] Comment on above: Negative for Flu A p rotein antigen. Infection due to Flu Acannot be ruled out. Flu A antigen in the sample may bebelow the detection limit of the test. Bedside Influenza Type B Antigen Negative [facility] Comment on above: Negative for Flu B p rotein antigen. Infection due to Flu Bcannot be ruled out. Flu B antigen in the sample may bebelow the detection limit of the test. Eosinophils # (Auto) 0.2 10 3/uL 0.0-0.7 [facility] Immature Granulocyte # (Auto) 0.04 10 3/uL High 0.00-0.03 [facility] Troponin I High Sensitivity 5.2 pg/mL 4.0-51.3 [facility] Comment on above: CUT-OFF POINTS HAVE BEEN [...] volume] in Blood by Automated count 9.5-13.5 [facility] Platelet mean volume (Bld) [Entitic vol] 11.5 fL 9.5-13.5 [facility] Platelets Auto (Bld) [#/Vol] on 10-04-2024 Platelets (Bld) [#/Vol] Platelets [#/volume] in Blood by Automated count 150-450 [facility] Platelets (Bld) [#/Vol] 186 10 3/uL 150-450 [facility] RBC Auto (Bld) [#/Vol]on RBC (Bld) [#/Vol] Erythrocytes [#/volu me] in Blood by Automated count Low 4.20-5.40 [facility] RBC (Bld) [#/Vol] 4.13 10 6/uL Low 4.20-5.40 [facility] Serum or plasma anion gap de terminationon 10-04-2024 Anion gap [Moles/Vol] Serum or plasma an ion gap determination [facility] Anion gap [Moles/Vol] 13.7 mmol/L [facility] Office Visiton 09-26-2024 Follow-up visit [id number] Clari Gibbs ty L 1940 F Date Provider Department Center 09/26/2024 BALA MORGAN [facility] Family History Problem Relation Age of Onset No Known Problems Mother No Known Problems Father Hypertension Brother Family Status - Relation Status Age at Mother Father Brother Level of Service:31592 PA OFFICE/OUTPATIENT ESTABLISHED HIGH MDM 40 MIN Normal [facility] Office Visiton 07-21-2024 Follow-up visit [id number] SaiClari ty L 1940 F Date Provider Department Center 07/21/2024 [facility] Family History Problem Relation Age of Onset No Known Problems Mother No Known Problems Father Family Status - Relation Status Age at Mother Father Level of Service:47789 PA OFFICE/OUTPATIENT ESTABLISHED MOD MDM 30 MIN Normal [facility] Basophils Auto (Bld) [#/Vol] on 05-27-2024 Basophils (Bld) [#/Vol] Automated basophil count 0.0-0.1 [facility] Basophils/100 WBC Auto (Bld) on 05-27-2024 Basophils/100 WBC (Bld) Automated basophil % 0.2-2.0 [facility] Cholesterol in LDL Calc [Mas s/Vol]on 05-27-2024 Cholesterol in LDL [Mass/Vol] Cholesterol in LDL [Mass/volume] in Serum or Plasma by calculation [facility] Comment on above: <100 mg/dl [id number] 0-129 mg/dl NEAR OR ABOVE [id number] mg/dl BORDERLINE [id number] mg/dl HIGH>190 mg/dl VERY HIGH Cholesterol in VLDL Calc [Ma ss/Vol]on 05-27-2024 Cholesterol in VLDL [Mass/Vol] Cholesterol in VLDL [Mass/volume] in Serum or Plasma by calculation [facility] Eosinophils/100 WBC Auto (Bl d)on 05-27-2024 Eosinophils/100 WBC (Bld) Automated eosinophil % 0.9-7.0 [facility] Erythrocyte distribution wid th Auto (RBC) [Ratio]on 05-27-2024 Erythrocyte distribution width (RBC) [Ratio] Erythrocyte distribution width [Ratio] by Automated count 11.0-15.0 [facility] Estimated glomerular filtrat ion rate (GFR) non- Americanon 05-27-2024 GFR/1.73 sq M.predicted among non-blacks MDRD (S/P/Bld) [Vol rate/Area] Estimated glomerular filtration rate (GFR) non- Low >=60 mL/min/1.[address] [facility] Globulin Calc (S) [Mass/Vol] on 05-27-2024 Globulin (S) [Mass/Vol] Serum globulin measurement by calculation (mass/volume) [facility] Hematocrit Auto (Bld) [Volum e fraction]on 05-27-2024 Hematocrit (Bld) [Volume fraction] Hematocrit [Volume Fraction] of Blood by Automated count 36.0-48.0 [facility] Hemoglobin [Mass/volume] in Bloodon 05-27-2024 Hemoglobin (Bld) [Mass/Vol] Hemoglobin [Mass/volume] in Blood 12.0-16.0 [facility] Laboratory - Chemistry and C hemistry - challengeon 05-27-2024 Albumin [Mass/Vol] 3.4 g/dL 3.4-5.0 [facility] ALP [Catalytic activity/Vol] 103 U/L 46-116 [facility] ALT [Catalytic activity/Vol] 24 U/L 14-59 [facility] AST [Catalytic activity/Vol] 25 U/L 15-37 [facility] Bilirubin [Mass/Vol] 0.3 mg/dL 0.2-1.0 [facility] Calcium [Mass/Vol] 9.1 mg/dL 8.5-10.1 [facility] Chloride [Moles/Vol] 108 mmol/L High 98-107 [facility] Cholesterol [Mass/Vol] 122 mg/dL <=200 [facility] Cholesterol in HDL [Mass/Vol] 58 mg/dL 40-60 [facility] Comment on above: > or =60 mg/dl - LOW CARDIOVASCULAR RISK<40 mg/dl - HIGH CARDIOVASCULAR RISK CO2 [Moles/Vol] 26.2 mmol/L 21.0-32.0 [facility] Creatinine [Mass/Vol] 1.16 mg/dL High 0.55-1.02 [facility] GFR/1.73 sq M.predicted MDRD (S/P/Bld) [Vol rate/Area] 54 mL/min/{1.73_m2} Low >=60 mL/min/1.[address] [facility] Glucose [Mass/Vol] 105 mg/dL 74-106 [facility] Potassium [Moles/Vol] 4.2 mmol/L 3.5-5.1 [facility] Protein [Mass/Vol] 7.0 g/dL 6.4-8.2 [facility] Sodium [Moles/Vol] 142 mmol/L 136-145 [facility] Triglyceride [Mass/Vol] 154 mg/dL High <=150 [facility] TSH Qn 0.650 m[IU]/L 0.358-3.[address] [facility] Urea nitrogen [Mass/Vol] 15.0 mg/dL 7.0-18.0 [facility] Urea nitrogen/Creatinine [Mass ratio] 12.9 mg/mg [facility] Laboratory - Hematology and Cell countson 05-27-2024 Immature granulocytes/100 WBC (Bld) 0.2 % 0.0-0.5 [facility] Leukocytes [#/volume] correc katia for nucleated erythrocytes in Blood by Automated counon 05-27-2024 WBC corrected for nucl RBC Auto (Bld) [#/Vol] Leukocytes [#/volume] corrected for nucleated erythrocytes in Blood by Automated coun 4.0-11.0 [facility] Lymphocytes Auto (Bld) [#/Vo l]on 05-27-2024 Lymphocytes (Bld) [#/Vol] Lymphocytes [#/volume] in Blood by Automated count 1.2-3.8 [facility] Lymphocytes/100 WBC Auto (Bl d)on 05-27-2024 Lymphocytes/100 WBC (Bld) Lymphocytes/100 leukocytes in Blood by Automated count Low 20.5-60.0 [facility] MCH Auto (RBC) [Entitic mass ]on 05-27-2024 MCH (RBC) [Entitic mass] MCH [Entitic mass] by Automated count 26.7-34.0 [facility] MCHC Auto (RBC) [Mass/Vol]on 05-27-2024 MCHC (RBC) [Mass/Vol] MCHC [Mass/volume] by Automated count 29.9-35.2 [facility] MCV Auto (RBC) [Entitic vol] on 05-27-2024 MCV (RBC) [Entitic vol] MCV [Entitic volume] by Automated count 81.0-99.0 [facility] Monocytes Auto (Bld) [#/Vol] on 05-27-2024 Monocytes (Bld) [#/Vol] Automated blood monocyte count High 0.3-0.8 [facility] Monocytes/100 WBC Auto (Bld) on 05-27-2024 Monocytes/100 WBC (Bld) Automated monocyte % 1.7-12.0 [facility] Neutrophils Auto (Bld) [#/Vo l]on 05-27-2024 Neutrophils (Bld) [#/Vol] Neutrophils [#/volume] in Blood by Automated count 1.4-6.5 [facility] Neutrophils/100 WBC Auto (Bl d)on 05-27-2024 Neutrophils/100 WBC (Bld) Automated neutrophil % 43.0-75.0 [facility] No Panel Informationon 05-27 Eosinophils # (Auto) 0.2 10 3/uL 0.0-0.7 [facility] Immature Granulocyte # (Auto) 0.02 10 3/uL 0.00-0.03 [facility] Platelet mean volume Auto (B ld) [Entitic vol]on 05-27-2024 Platelet mean volume (Bld) [Entitic vol] Platelet mean volume [Entitic volume] in Blood by Automated count 9.5-13.5 [facility] Platelets Auto (Bld) [#/Vol] on 05-27-2024 Platelets (Bld) [#/Vol] Platelets [#/volume] in Blood by Automated count 150-450 [facility] RBC Auto (Bld) [#/Vol]on RBC (Bld) [#/Vol] Erythrocytes [#/volu me] in Blood by Automated count Low 4.20-5.40 [facility] Serum or plasma albumin/glob ulin mass ratioon 05-27-2024 Albumin/Globulin [Mass ratio] Serum or plasma albumin/globulin mass ratio [facility] Serum or plasma anion gap de terminationon 05-27-2024 Anion gap [Moles/Vol] Serum or plasma an ion gap determination [facility] Serum or plasma total choles terol/high density lipoprotein (HDL) cholesterol mass bernie 05-27-2024 Cholesterol.total/Chol esterol in HDL [Mass ratio] Serum or plasma total cholesterol/high density lipoprotein (HDL) cholesterol mass rat [facility] Comment on above: 3.3 - 4.4 LOW RISK4. 4 - 7.1 AVERAGE RISK7.1 - 11.0 MODERATE RISK>11.0 HIGH RISK Office Visiton 03-19-2024 Follow-up visit [id number] Clari Gibbs 1940 F Date Provider Department Center 03/19/2024 STEFANIE RUIZ EMIL [facility] Family History Problem Relation Age of Onset No Known Problems Mother No Known Problems Father Family Status - Relation Status Age at Mother Father Level of Service:37389 PA OFFICE/OUTPATIENT ESTABLISHED MOD MDM 30 MIN Reason for Visit and Comments: Coronary Artery Disease [187] Congestive Heart Failure [127] Hypertension [412629] Normal [facility] Hemoglobin [Mass/volume] in Bloodon 02-25-2024 Hemoglobin (Bld) [Mass/Vol] 12.6 g/dL 12.0-16.0 [facility] Hemoglobin (Bld) [Mass/Vol] Hemoglobin [Mass/volume] in Blood 12.0-16.0 [facility] Estimated glomerular filtrat ion rate (GFR) non- Americanon 01-24-2024 GFR/1.73 sq M.predicted among non-blacks MDRD (S/P/Bld) [Vol rate/Area] 48 mL/min/{1.73_m2} Low >=60 [facility] Laboratory - Chemistry and C hemistry - challengeon 01-24-2024 Calcium [Mass/Vol] 9.4 mg/dL 8.5-10.1 [facility] Chloride [Moles/Vol] 109 mmol/L High 98-107 [facility] CO2 [Moles/Vol] 22.4 mmol/L 21.0-32.0 [facility] Creatinine [Mass/Vol] 1.09 mg/dL High 0.55-1.02 [facility] GFR/1.73 sq M.predicted MDRD (S/P/Bld) [Vol rate/Area] 58 mL/min/{1.73_m2} Low >=60 [facility] Glucose [Mass/Vol] 97 mg/dL 74-106 [facility] Potassium [Moles/Vol] 4.6 mmol/L 3.5-5.1 [facility] Sodium [Moles/Vol] 143 mmol/L 136-145 [facility] Urea nitrogen [Mass/Vol] 23.0 mg/dL High 7.0-18.0 [facility] Urea nitrogen/Creatinine [Mass ratio] 21.1 mg/mg [facility] Serum or plasma anion gap de termination01-24-2024 Anion gap [Moles/Vol] 16.2 mmol/L [facility] 01-23-2024 29 Addended by: VIRI MAZARIEGOS on: 01/23/2024 04:03 PM Modules accepted: Orders [facility] 01-23-2024 36 Spoke with patient a nd made her aware. She will have repeat BMP within the next few days. Order faxed to [facility]. [facility] 01-17-2024 36 I reviewed the blood pressure readings and the blood test from 01/17/2024. Blood pressure is better. Renal function is improving. Still not at baseline. Please ask her to continue to hold diuretics. She should get BMP in 1 week. [facility] Estimated glomerular filtrat ion rate (GFR) non- Americanon 01-17-2024 GFR/1.73 sq M.predicted among non-blacks MDRD (S/P/Bld) [Vol rate/Area] 36 mL/min/{1.73_m2} Low >=60 [facility] Laboratory - Chemistry and C hemistry - challengeon 01-17-2024 Calcium [Mass/Vol] 9.5 mg/dL 8.5-10.1 [facility] Chloride [Moles/Vol] 108 mmol/L High 98-107 [facility] CO2 [Moles/Vol] 22.3 mmol/L 21.0-32.0 [facility] Creatinine [Mass/Vol] 1.40 mg/dL High 0.55-1.02 [facility] GFR/1.73 sq M.predicted MDRD (S/P/Bld) [Vol rate/Area] 43 mL/min/{1.73_m2} Low >=60 [facility] Glucose [Mass/Vol] 133 mg/dL High 74-106 [facility] Potassium [Moles/Vol] 4.8 mmol/L 3.5-5.1 [facility] Sodium [Moles/Vol] 141 mmol/L 136-145 [facility] Urea nitrogen [Mass/Vol] 55.0 mg/dL High 7.0-18.0 [facility] Urea nitrogen/Creatinine [Mass ratio] 39.3 mg/mg [facility] Serum or plasma anion gap de terminationon 01-17-2024 Anion gap [Moles/Vol] 15.5 mmol/L [facility] Telephoneon 01-17-2024 Telephone [id number] Clari Gibbs 1940 F Date Provider Department Center 01/17/2024 BALA MORGAN CARD [facility] Family History Problem Relation Age of Onset No Known Problems Mother No Known Problems Father Family Status - Relation Status Age at Mother Father [facility] 36on 01-15-2024 36 Spoke with patient a nd told her I faxed BMP order to [facility]. She will have it drawn on she said. [facility] Estimated glomerular filtrat ion rate (GFR) non- Americanon 01-14-2024 GFR/1.73 sq M.predicted among non-blacks MDRD (S/P/Bld) [Vol rate/Area] 22 mL/min/{1.73_m2} Low >=60 [facility] Laboratory - Chemistry and C hemistry - challengeon 01-14-2024 Calcium [Mass/Vol] 9.2 mg/dL 8.5-10.1 [facility] Chloride [Moles/Vol] 105 mmol/L 98-107 [facility] CO2 [Moles/Vol] 22.6 mmol/L 21.0-32.0 [facility] Creatinine [Mass/Vol] 2.10 mg/dL High 0.55-1.02 [facility] GFR/1.73 sq M.predicted MDRD (S/P/Bld) [Vol rate/Area] 27 mL/min/{1.73_m2} Low >=60 [facility] Glucose [Mass/Vol] 126 mg/dL High 74-106 [facility] Potassium [Moles/Vol] 5.2 mmol/L High 3.5-5.1 [facility] Sodium [Moles/Vol] 140 mmol/L 136-145 [facility] Urea nitrogen [Mass/Vol] 76.0 mg/dL High 7.0-18.0 [facility] Comment on above: RESULTS CALLED TO AN ELENO MANDEL @BY Gemini Carpenter at 1334 Urea nitrogen/Creatinine [Mass ratio] 36.2 mg/mg [facility] Serum or plasma anion gap de terminationon 01-14-2024 Anion gap [Moles/Vol] 17.6 mmol/L [facility] Telephoneon 01-14-2024 Telephone [id number] Clari Gibbs 1940 F Date Provider Department Center 01/14/2024 SONA LINDER CARD [facility] Family History Problem Relation Age of Onset No Known Problems Mother No Known Problems Father Family Status - Relation Status Age at Mother Father Normal [facility] US venous duplex LE BIon US venous duplex LE BI [facility] Main [address] [address] Ultrasound Report Signed Patient: Nora Gibbs MR#: [id number] : 1940 Acct:[id number] Age/Sex: 83 / F ADM Date: 11/30/23 Loc: Room: [address] [place] [address] Type: DIS INOo Attending Dr: Jim Clay [...] Joe Moscoso MD12/03/2023 3:59 PM Dictation Location: [place] [address] Tech: Betty Mccarty Transcribed By: ALEXANDER 12/03/23 1559 Dictated By: Joe Moscoso MD 12/03/23 1558 Signed By: 12/03/23 1559 Normal [facility] A1C with Estimated Average G gary 12-01-2023 Glucose [Mass/Vol] 137 mg/dL Normal [facility] Comment on above: Result Comment: PERF ORMED BY: [facility] [address] [place] [id number] PATHOLOGIST [employer] WRITING INSTRUCTOR JUDY RASMUSSEN M.D. Performed By: #### L IPID, HS TROP, A1C WTH eA, MG, BMP, CBC ####[facility] [address] [place] [address] [facility] Automated basophil %Ordered By: Jim Clay on 12-01-2023 Basophils/100 WBC (Bld) 0.8 % . [facility] Comment on above: Performed By: #### L IPID, HS TROP, A1C WTH eA, MG, BMP, CBC ####[facility] [place] [place] [address] [facility] Automated basophil countOrde red By: Jim Clay on 12-01-2023 Basophils (Bld) [#/Vol] 0.0 10*3/uL 0.0-0.2 [facility] Comment on above: Result Comment: PERF ORMED BY: [facility] [address] [place] [address] PATHOLOGIST [employer]JUNCT WRITING INSTRUCTOR JUDY RASMUSSEN M.D. Performed By: #### L IPID, HS TROP, A1C WTH eA, MG, BMP, CBC ####[address] Automated blood monocyte cou ntOrdered By: Jim Clay on 12-01-2023 Monocytes (Bld) [#/Vol] 0.7 10*3/uL 0.0-0.8 [facility] Comment on above: Performed By: #### L IPID, HS TROP, A1C WTH eA, MG, BMP, CBC ####[address] Automated eosinophil %Ordere d By: Jim Clay on 12-01-2023 Eosinophils/100 WBC (Bld) 2.8 % . [facility] Comment on above: Performed By: #### L IPID, HS TROP, A1C WTH eA, MG, BMP, CBC ####[address] Automated eosinophil countOr dered By: Jim Clay on 12-01-2023 Eosinophils (Bld) [#/Vol] 0.2 10*3/uL 0.0-0.45 [facility] Comment on above: Performed By: #### L IPID, HS TROP, A1C WTH eA, MG, BMP, CBC ####[address] Automated monocyte %Ordered By: Jim Clay on 12-01-2023 Monocytes/100 WBC (Bld) 11.5 % . [facility] Comment on above: Performed By: #### L IPID, HS TROP, A1C WTH eA, MG, BMP, CBC ####[address] [place] [address] [facility] Automated neutrophil %Ordere d By: Jim Clay on 12-01-2023 Neutrophils/100 WBC (Bld) 62.6 % . [facility] Comment on above: Performed By: #### L IPID, HS TROP, A1C WTH eA, MG, BMP, CBC ####[address] [address] [facility] Basic Metabolic Panelon 11-10 Creatinine Clr Calc Pharmacy 47.06 Normal [facility] Comment on above: Performed By: #### L IPID, HS TROP, A1C WTH eA, MG, BMP, CBC ####[place] [id number] [place] GFR/1.73 sq M.predicted MDRD (S/P/Bld) [Vol rate/Area] mL/min/{1.73_m2} Normal [facility] Comment on above: Performed By: #### L IPID, HS TROP, A1C WTH eA, MG, BMP, CBC ####[place] [id number] [facility] Calcium [Mass/volume] in Ser um or PlasmaOrdered By: Jim Clay on 12-01-2023 Calcium [Mass/Vol] 8.7 mg/dL 8.6-10.3 [facility] Comment on above: Performed By: #### L IPID, HS TROP, A1C WTH eA, MG, BMP, CBC ####[place] [id number] [place] Carbon dioxide, total [Moles /volume] in Serum or PlasmaOrdered By: Jim Clay on 12-01-2023 CO2 [Moles/Vol] 22.8 mmol/L 21.0-31.0 [facility] Comment on above: Performed By: #### L IPID, HS TROP, A1C WTH eA, MG, BMP, CBC ####[address] [address] [place] Chloride [Moles/volume] in S tyron or PlasmaOrdered By: Jim Clay on 12-01-2023 Chloride [Moles/Vol] 112 mmol/L High 98-107 [facility] Comment on above: Performed By: #### L IPID, HS TROP, A1C WTH eA, MG, BMP, CBC ####[facility] [id number] [address] Cholesterol [Mass/volume] in Serum or PlasmaOrdered By: Jim Clay on 12-01-2023 Cholesterol [Mass/Vol] 109 mg/dL Low 140-200 [facility] Comment on above: Chol less than 200 m g/dl low riskChol 201-239 mg/dl borderline riskChol 240 mg/dl and greater high risk Result Comment: Chol less than 200 mg/dl low risk Chol 201-239 mg/dl borderline risk Chol 240 mg/dl and greater high risk Performed By: #### L IPID, HS TROP, A1C WTH eA, MG, BMP, CBC ####[place] [id number] [address] Cholesterol in LDL Calc [Mas s/Vol]Ordered By: Jim Clay on 12-01-2023 Cholesterol in LDL [Mass/Vol] 37 mg/dL 0-100 [facility] Comment on above: LDL ATP III CLASSIFI CATIONLDL less than 100 mg/dL OptimalLDL 100-129 mg/dL Near or above optimalLDL 130-159 mg/dL Borderline highLDL 160-189 mg/dL HighLDL greater than 189 mg/dL Very high Cholesterol in VLDL Calc [Ma ss/Vol]Ordered By: Jim Clay on 12-01-2023 Cholesterol in VLDL [Mass/Vol] 34 mg/dL [facility] Complete Blood Count Auto Di ffon 12-01-2023 Mean Corpuscular HGB Conc 33.4 g/dL Normal 32.0-35.0 [facility] Comment on above: Performed By: #### L IPID, HS TROP, A1C WTH eA, MG, BMP, CBC ####[facility] [place] [place] [id number] [facility] NRBC% 0.1 /100{WBC} Normal 0-0.[address] [facility] Comment on above: Performed By: #### L IPID, HS TROP, A1C WTH eA, MG, BMP, CBC ####[facility] [place] [place] [id number] [facility] Creatinine [Mass/volume] in Serum or PlasmaOrdered By: Jim Clay on 12-01-2023 Creatinine [Mass/Vol] 0.84 mg/dL 0.60-1.20 [facility] Comment on above: Performed By: #### L IPID, HS TROP, A1C WT eA, MG, BMP, CBC ####[facility] [id number] [place] [address] [facility] ECH echo transthoracicon ECH echo transthoracic [facility] Main [address] [place] [address] Echocardiogram Signed Patient: Nora Gibbs MR#: [id number] : 1940 Acct:[id number] Age/Sex: 83 / F ADM Date: 11/30/23 Loc: Room: [address] [place] [address] Type: ADM INOo Attending Dr: Jim Clay [...] Margarito Ballesteros MD 12/01/23 1449 Normal [facility] Erythrocyte distribution wid th [Ratio] by Automated countOrdered By: Jim Clay on 12-01-2023 Erythrocyte distribution width (RBC) [Ratio] 13.4 % 11.9-15.3 [facility] Comment on above: Performed By: #### L IPID, HS TROP, A1C WTH eA, MG, BMP, CBC ####[facility] [place] [place] [address] [facility] Erythrocytes [#/volume] in B lood by Automated countOrdered By: Jim Clay on 12-01-2023 RBC (Bld) [#/Vol] 3.81 10*6/uL 3.60-5.00 [facility] Comment on above: Performed By: #### L IPID, HS TROP, A1C WTH eA, MG, BMP, CBC ####[place] [id number] [place] [address] [facility] Glucose [Mass/volume] in Ser um or PlasmaOrdered By: Jim Clay on 12-01-2023 Glucose [Mass/Vol] 100 mg/dL 70-100 [facility] Comment on above: ADA recommended refe rence rangeRandom Glucose Reference Range is dependent on time and content of last meal. Glucose of more than 200 mg/dL in a nonstressed, ambulatory subject supports the diagnosis of Diabetes Mellitus. Result Comment: [place] om Glucose Reference Range is dependent on time and content of last meal. Glucose of more than 200 mg/dL in a nonstressed, ambulatory subject supports the diagnosis of Diabetes Mellitus. ADA recommended reference range Performed By: #### L IPID, HS TROP, A1C WTH eA, MG, BMP, CBC ####[facility] [place] [place] [address] [facility] Glucose mean value [Mass/vol ume] in Blood Estimated from glycated hemoglobinOrdered By: Jim Clay on 12-01-2023 Average glucose Estimated from glycated hemoglobin (Bld) [Mass/Vol] 137 mg/dL [facility] Hematocrit [Volume Fraction] of Blood by Automated countOrdered By: Jim Clay on 12-01-2023 Hematocrit (Bld) [Volume fraction] 34.9 % 34.0-46.4 [facility] Comment on above: Performed By: #### L IPID, HS TROP, A1C WTH eA, MG, BMP, CBC ####[facility] [place] [place] [address] Hemoglobin A1c percentageOrd ered By: Jim Clay on 12-01-2023 HbA1c (Bld) [Mass fraction] 6.4 % High 4.3-5.6 [facility] Comment on above: Increased risk for d iabetes: 5.7 - 6.4diabetes: >6.4glycemic control for adults with diabetes: <7.0 Result Comment: Incr eased risk for diabetes: 5.7 - 6.4 diabetes: >6.4 glycemic control for adults with diabetes: <7.0 Performed By: #### L IPID, HS TROP, A1C WTH eA, MG, BMP, CBC ####[facility] [id number] Hemoglobin [Mass/volume] in BloodOrdered By: Jim Clay on 12-01-2023 Hemoglobin (Bld) [Mass/Vol] 11.7 g/dL Low 11.8-15.4 [facility] Comment on above: Performed By: #### L IPID, HS TROP, A1C WTH eA, MG, BMP, CBC ####[facility] [id number] [address] Leukocytes [#/volume] correc katia for nucleated erythrocytes in Blood by Automated counOrdered By: Jim Clay on 12-01-2023 WBC corrected for nucl RBC Auto (Bld) [#/Vol] 6.4 10*3/uL 3.8-11.6 [facility] Leukocytes [#/volume] in Blo od by Automated countOrdered By: Jim Clay on 12-01-2023 WBC (Bld) [#/Vol] 6.4 10*3/uL 3.8-11.6 [facility] Comment on above: Performed By: #### L IPID, HS TROP, A1C WTH eA, MG, BMP, CBC ####[facility] [id number] Lipid Panelon 12-01-2023 LDL Cholesterol,Calculated 37 mg/dL Normal 0-100 [facility] Comment on above: Result Comment: LDL ATP III CLASSIFICATION LDL less than 100 mg/dL Optimal LDL 100-129 mg/dL Near or above optimal LDL 130-159 mg/dL Borderline high LDL 160-189 mg/dL High LDL greater than 189 mg/dL Very high Performed By: #### L IPID, HS TROP, A1C WTH eA, MG, BMP, CBC ####[place] [address] [place] [id number] [facility] Triglyceride w/Reflex 171 mg/dL High 0-149 [facility] Comment on above: Result Comment: TRIG ATP III CLASSIFICATION TRIG less than 150 mg/dL Normal TRIG 150-199 mg/dL Borderline high TRIG 200-500 mg/dL High TRIG greater than 500 mg/dL Very high Standard traceable to the Center for Disease Conrtrol and Prevention (CDC) test method. Performed By: #### L IPID, HS TROP, A1C WTH eA, MG, BMP, CBC ####[address] VLDL CHOLESTEROL 34 mg/dL Normal [facility] Comment on above: Performed By: #### L IPID, HS TROP, A1C WTH eA, MG, BMP, CBC ####[place] [id number] [facility] Lymphocytes [#/volume] in Bl ood by Automated countOrdered By: Jim Clay on 12-01-2023 Lymphocytes (Bld) [#/Vol] 1.4 10*3/uL 1.00-4.8 [facility] Comment on above: Performed By: #### L IPID, HS TROP, A1C WTH eA, MG, BMP, CBC ####[place] [id number] [facility] Lymphocytes/100 leukocytes i n Blood by Automated countOrdered By: Jim Clay on 12-01-2023 Lymphocytes/100 WBC (Bld) 22.3 % . [facility] Comment on above: Performed By: #### L IPID, HS TROP, A1C WTH eA, MG, BMP, CBC ####[place] [id number] [facility] MCH [Entitic mass] by Automa katia countOrdered By: Jim Clay on 12-01-2023 MCH (RBC) [Entitic mass] 30.5 pg 24.7-34.3 [facility] Comment on above: Performed By: #### L IPID, HS TROP, A1C WTH eA, MG, BMP, CBC ####[address] MCHC Auto (RBC) [Mass/Vol]Or dered By: Jim Clay on 12-01-2023 MCHC (RBC) [Mass/Vol] 33.4 g/dL 32.0-35.0 [facility] MCV [Entitic volume] by Auto mated countOrdered By: Jim Clay on 12-01-2023 MCV (RBC) [Entitic vol] 91.5 fL 80-100 [facility] Comment on above: Performed By: #### L IPID, HS TROP, A1C WTH eA, MG, BMP, CBC ####[address] Magnesium [Mass/volume] in S tyron or PlasmaOrdered By: Jim Clay on 12-01-2023 Magnesium [Mass/Vol] 1.7 mg/dL Low 1.9-2.7 [facility] Comment on above: Performed By: #### L IPID, HS TROP, A1C WTH eA, MG, BMP, CBC ####[address] Neutrophils [#/volume] in Bl ood by Automated countOrdered By: Jim Clay on 12-01-2023 Neutrophils (Bld) [#/Vol] 4.0 10*3/uL 1.8-7.7 [facility] Comment on above: Performed By: #### L IPID, HS TROP, A1C WTH eA, MG, BMP, CBC ####[address] No Panel InformationOrdered By: Jim Clay on 12-01-2023 Estimated GFR (CKD-EPI) > 60.0 mL/Min [facility] Creatinine Clearance (Chem 47.06 [facility] Nucleated erythrocytes [Pres ence] in Blood by Automated countOrdered By: Jim Clay on 12-01-2023 Nucleated RBC Auto Ql (Bld) 0.1 /100{WBC} 0-0.5 [facility] Platelet mean volume [Entiti c volume] in Blood by Automated countOrdered By: Jim Clay on 12-01-2023 Platelet mean volume (Bld) [Entitic vol] 10.0 fL 6.3-10.7 [facility] Comment on above: Performed By: #### L IPID, HS TROP, A1C WTH eA, MG, BMP, CBC ####[place] [id number] Platelets [#/volume] in Bloo d by Automated countOrdered By: Jim Clay on 12-01-2023 Platelets (Bld) [#/Vol] 203 10*3/uL 150-450 [facility] Comment on above: Performed By: #### L IPID, HS TROP, A1C WTH eA, MG, BMP, CBC ####[facility] [id number] [place], [place] [id number] [facility] Potassium [Moles/volume] in Serum or PlasmaOrdered By: Jim Clay on 12-01-2023 Potassium [Moles/Vol] 4.3 mmol/L 3.5-5.1 [facility] Comment on above: Performed By: #### L IPID, HS TROP, A1C WTH eA, MG, BMP, CBC ####[place] [id number] [facility] Serum or plasma anion gap de terminationOrdered By: Jim Clay on 12-01-2023 Anion gap [Moles/Vol] 11.5 mmol/L 6.0-15.0 [facility] Comment on above: Performed By: #### L IPID, HS TROP, A1C WTH eA, MG, BMP, CBC ####[facility] [id number] [place], [place] [id number] [facility] Serum or plasma high density lipoprotein (HDL) cholesterol measurementOrdered By: Jim Clay on 12-01-2023 Cholesterol in HDL [Mass/Vol] 38 mg/dL 23- [facility] Comment on above: HDL CHOL ATP-III CLA SSIFICATION Cardiovascular RiskHDL > or equal to 60 mg/dL LOWHDL < 40 mg/dL HIGH Result Comment: HDL CHOL ATP-III CLASSIFICATION Cardiovascular Risk HDL > or equal to 60 mg/dL LOW HDL < 40 mg/dL HIGH Performed By: #### L IPID, HS TROP, A1C WTH eA, MG, BMP, CBC ####[place] [address] [place] [address] [facility] Serum or plasma total choles terol/high density lipoprotein (HDL) cholesterol mass ratOrdered By: Jim Clay on 12-01-2023 Cholesterol.total/Chol esterol in HDL [Mass ratio] 2.9 {ratio} <5.0 [facility] Comment on above: Result Comment: PERF ORMED BY: [facility] [address] [place] [address] PATHOLOGIST ADJUNCT WRITING INSTRUCTOR JUDY RASMUSSEN M.D. Performed By: #### L IPID, HS TROP, A1C WTH eA, MG, BMP, CBC ####[place] [address] [place] [address] [facility] Sodium [Moles/volume] in Ser um or PlasmaOrdered By: Jim Clay on 12-01-2023 Sodium [Moles/Vol] 142 mmol/L 136-145 [facility] Comment on above: Performed By: #### L IPID, HS TROP, A1C WTH eA, MG, BMP, CBC ####[place] [id number] [facility] Triglyceride [Mass/volume] i n Serum or PlasmaOrdered By: Jim Clay on 12-01-2023 Triglyceride [Mass/Vol] 171 mg/dL High 0-149 [facility] Comment on above: TRIG ATP III CLASSIF ICATIONTRIG less than 150 mg/dL NormalTRIG 150-199 mg/dL Borderline highTRIG 200-500 mg/dL High TRIG greater than 500 mg/dL Very highStandard traceable to the Center for Disease Conrtrol and Prevention (CDC) test method. Troponin I High Sensitivityo n 12-01-2023 Troponin I High Sensitivity 9.5 pg/mL Normal 0.0-15.0 [facility] Comment on above: Result Comment: PERF ORMED BY: [facility] [address] [place] [address] PATHOLOGIST ADJUNCT WRITING INSTRUCTOR JUDY RASMUSSEN M.D. Performed By: #### L IPID, HS TROP, A1C WTH eA, MG, BMP, CBC ####[facility] [place] Troponin I.cardiac [Mass/vol ume] in Serum or Plasma by Detection limit <= 0.01 ng/Ordered By: Jim Clay on 12-01-2023 Troponin I.cardiac DL <= 0.01 ng/mL [Mass/Vol] 9.5 pg/mL 0.0-15.0 [facility] Urea nitrogen [Mass/volume] in Serum or PlasmaOrdered By: Jim Clay on 12-01-2023 Urea nitrogen [Mass/Vol] 21 mg/dL 01-02 [facility] Comment on above: Performed By: #### L IPID, HS TROP, A1C WTH eA, MG, BMP, CBC ####[facility] [place] [place] [id number] [place] Activated partial thrombopla stin time (aPTT) in platelet poor plasma by coagulation aOrdered By: Nika Fagan on 11-30-2023 aPTT Coag (PPP) [Time] 29.1 s 25.1-36.5 [facility] Comment on above: A hematocrit value g reater than 55% may lead to inaccurate results in coagulation testing. Patients having hematocrit values >55% require a special collection tube for coagulation studies. Please contact the laboratory at [phone] for redraw instructions. Alanine aminotransferase [En zymatic activity/volume] in Serum or PlasmaOrdered By: Nika Fagan on 11-30-2023 ALT [Catalytic activity/Vol] 20 U/L [facility] Comment on above: Performed By: #### C BC, BNP, PTT, DDIMER, HS TROP, PT, CMP #### [facility] [address] [place] [id number] [facility] Albumin [Mass/volume] in Ser um or Plasma by Bromocresol green (BCG) dye binding methoOrdered By: Nika Fagan on 11-30-2023 Albumin BCG dye [Mass/Vol] 4.1 g/dL 3.5-5.7 [facility] Alkaline phosphatase [Enzyma tic activity/volume] in Serum or PlasmaOrdered By: Nika Fagan on 11-30-2023 ALP [Catalytic activity/Vol] 89 U/L 34-104 [facility] Comment on above: Performed By: #### C BC, BNP, PTT, DDIMER, HS TROP, PT, CMP #### [address] Aspartate aminotransferase [ Enzymatic activity/volume] in Serum or PlasmaOrdered By: Nika Fagan on 11-30-2023 AST [Catalytic activity/Vol] 25 U/L 13-39 [facility] Comment on above: Performed By: #### C BC, BNP, PTT, DDIMER, HS TROP, PT, CMP #### [address] Automated basophil %Ordered By: Nika Fagan on 11-30-2023 Basophils/100 WBC (Bld) 0.6 % Normal . [facility] Comment on above: Performed By: #### C BC, BNP, PTT, DDIMER, HS TROP, PT, CMP #### [address] Automated basophil countOrde red By: Nika Fagan on 11-30-2023 Basophils (Bld) [#/Vol] 0.0 10*3/uL Normal 0.0-0.2 [facility] Comment on above: Result Comment: PERF ORMED BY: [place] [address] PATHOLOGIST ADJUNCT WRITING INSTRUCTOR JUDY RASMUSSEN M.D. Performed By: #### C BC, BNP, PTT, DDIMER, HS TROP, PT, CMP #### [address] Automated blood monocyte cou ntOrdered By: Nika Fagan on 11-30-2023 Monocytes (Bld) [#/Vol] 0.6 10*3/uL Normal 0.0-0.8 [facility] Comment on above: Performed By: #### C BC, BNP, PTT, DDIMER, HS TROP, PT, CMP #### [facility] [address] Automated eosinophil %Ordere d By: Nika Fagan on 11-30-2023 Eosinophils/100 WBC (Bld) 2.8 % Normal . [facility] Comment on above: Performed By: #### C BC, BNP, PTT, DDIMER, HS TROP, PT, CMP #### [facility] [address] [place] [address] Automated eosinophil countOr dered By: Nika Fagan on 11-30-2023 Eosinophils (Bld) [#/Vol] 0.2 10*3/uL Normal 0.0-0.45 [facility] Comment on above: Performed By: #### C BC, BNP, PTT, DDIMER, HS TROP, PT, CMP #### [address] Automated monocyte %Ordered By: Nika Fagan on 11-30-2023 Monocytes/100 WBC (Bld) 9.8 % Normal . [facility] Comment on above: Performed By: #### C BC, BNP, PTT, DDIMER, HS TROP, PT, CMP #### [facility] [address] [place] [address] Automated neutrophil %Ordere d By: Nika Fagan on 11-30-2023 Neutrophils/100 WBC (Bld) 66.7 % Normal . [facility] Comment on above: Performed By: #### C BC, BNP, PTT, DDIMER, HS TROP, PT, CMP #### [facility] [address] [place] [address] BNP ser/plasOrdered By: Mono Fagan on 11-30-2023 Natriuretic peptide B (Bld) [Mass/Vol] 274.0 pg/mL High 5-100 [facility] Comment on above: Result Comment: PERF ORMED BY: [address] [address] PATHOLOGIST ADJUNCT WRITING INSTRUCTOR JUDY RASMUSSEN M.D. Performed By: #### C BC, BNP, PTT, DDIMER, HS TROP, PT, CMP #### [facility] [address] Bilirubin.total [Mass/volume ] in Serum or PlasmaOrdered By: Nika Fagan on 11-30-2023 Bilirubin [Mass/Vol] 0.5 mg/dL 0.3-1.0 [facility] Comment on above: Performed By: #### C BC, BNP, PTT, DDIMER, HS TROP, PT, CMP #### [facility] [address] angio chest PE protocolon 11-30-2023 CT angio chest PE protocol [facility] Main [address] [place] [address] CT Scan Report Signed Patient: Nora Gibbs MR#: [id number] : 1940 Acct:[id number] Age/Sex: 83 / F ADM Date: 11/30/23 Loc: ER Room: Type: [facility] ER Attending Dr: Copies to: [...] Mahendra Chandler M.D.11/30/2023 12:06 PM Dictation Location: [place] [address] Transcribed By: [facility] 11/30/23 1206 Dictated By: Mahendra Chandler DO 11/30/23 1200 Signed By: 11/30/23 1206 Normal [facility] Calcium [Mass/volume] in Ser um or PlasmaOrdered By: Nika Fagan on 11-30-2023 Calcium [Mass/Vol] 9.4 mg/dL Normal 8.6-10.3 [facility] Comment on above: Performed By: #### C BC, BNP, PTT, DDIMER, HS TROP, PT, CMP #### [facility] [address] Carbon dioxide, total [Moles /volume] in Serum or PlasmaOrdered By: Nika Fagan on 11-30-2023 CO2 [Moles/Vol] 20.0 mmol/L Low 21.0-31.0 [facility] Comment on above: Performed By: #### C BC, BNP, PTT, DDIMER, HS TROP, PT, CMP #### [facility] [address] [place] [address] [place] Chloride [Moles/volume] in S tyron or PlasmaOrdered By: Nika Fagan on 11-30-2023 Chloride [Moles/Vol] 111 mmol/L High 98-107 [facility] Comment on above: Performed By: #### C BC, BNP, PTT, DDIMER, HS TROP, PT, CMP #### [facility] [address] [place] [id number] [place] Complete Blood Count Auto Di ffon 11-30-2023 Mean Corpuscular HGB Conc 33.0 g/dL Normal 32.0-35.0 [facility] Comment on above: Performed By: #### C BC, BNP, PTT, DDIMER, HS TROP, PT, CMP #### [address] Monocytes/100 WBC (Bld) 16.37 % Normal 0.00-20.00 [facility] Comment on above: Performed By: #### C BC, BNP, PTT, DDIMER, HS TROP, PT, CMP #### [address] NRBC% 0.1 /100{WBC} Normal 0-0.[address] [facility] Comment on above: Performed By: #### C BC, BNP, PTT, DDIMER, HS TROP, PT, CMP #### [address] Comprehensive Metabolic Pane ventura 11-30-2023 Albumin [Mass/Vol] 4.1 g/dL Normal 3.5-5.7 [facility] Comment on above: Performed By: #### C BC, BNP, PTT, DDIMER, HS TROP, PT, CMP #### [address] Creatinine Clr Calc Pharmacy 43.90 Normal [facility] Comment on above: Result Comment: PERF ORMED BY: [place] [address] PATHOLOGIST ADJUNCT WRITING INSTRUCTOR JUDY RASMUSSEN M.D. Performed By: #### C BC, BNP, PTT, DDIMER, HS TROP, PT, CMP #### [address] GFR/1.73 sq M.predicted MDRD (S/P/Bld) [Vol rate/Area] mL/min/{1.73_m2} Normal [facility] Comment on above: Performed By: #### C BC, BNP, PTT, DDIMER, HS TROP, PT, CMP #### [address] Creatinine [Mass/volume] in Serum or PlasmaOrdered By: Nika Fagan on 11-30-2023 Creatinine [Mass/Vol] 0.91 mg/dL Normal 0.60-1.20 [facility] Comment on above: Performed By: #### C BC, BNP, PTT, DDIMER, HS TROP, PT, CMP #### [facility] [address] [place] [id number] [facility] D-Dimer High Sensitivityon 0 11-30-2023 D-Dimer High Sensitivity 734 ng/mL High 0-243 [facility] Comment on [...] coagulation studies. Please contact the laboratory at [phone] for redraw instructions. PERFORMED BY: [place] [address] PATHOLOGIST ADJUNCT WRITING INSTRUCTOR JUDY RASMUSSEN M.D. Performed By: #### C BC, BNP, PTT, DDIMER, HS TROP, PT, CMP ####[facility] [place] [place] [id number] [facility] ECG 12 lead ECGon 11-30-2023 ECG 12 lead ECG [facility] Main [employer] [address] [place], [place] [id number] Electrocardiograph Report Signed Patient: Nora Gibbs MR#: [id number] : 1940 Acct:[id number] Age/Sex: 83 / F ADM Date: 11/30/23 Loc: Room: [address] [place] [address] Type: ADM INOo Attending Dr: Jim Clay [...] Lateral leads Confirmed by Kole Damon DO ([id number]) on 11/30/2023 3:08:44 PM Referred By: Electronically Signed By:Kole Damon DO Transcribed By: MUS Signed By Kole Damon DO 4 1509 Normal [facility] Erythrocyte distribution wid th [Ratio] by Automated countOrdered By: Nika Fagan on 11-30-2023 Erythrocyte distribution width (RBC) [Ratio] 13.4 % Normal 11.9-15.3 [facility] Comment on above: Performed By: #### C BC, BNP, PTT, DDIMER, HS TROP, PT, CMP #### [facility] [address] Erythrocytes [#/volume] in B lood by Automated countOrdered By: Nika Fagan on 11-30-2023 RBC (Bld) [#/Vol] 4.17 10*6/uL Normal 3.60-5.00 [facility] Comment on above: Performed By: #### C BC, BNP, PTT, DDIMER, HS TROP, PT, CMP #### [facility] [address] Fibrin D-dimer [Presence] in Platelet poor plasma by Latex agglutinationOrdered By: Nika Fagan on 11-30-2023 Fibrin D-dimer LA Ql (PPP) 734 ng/mL High 0-243 [facility] Comment on above: The reference range [...] coagulation studies. Please contact the laboratory at [phone] for redraw instructions. Glucose [Mass/volume] in Ser um or PlasmaOrdered By: Nika Fagan on 11-30-2023 Glucose [Mass/Vol] 121 mg/dL High 70-100 [facility] Comment on above: ADA recommended refe rence rangeRandom Glucose Reference Range is dependent on time and content of last meal. Glucose of more than 200 mg/dL in a nonstressed, ambulatory subject supports the diagnosis of Diabetes Mellitus. Result Comment: [place] Glucose Reference Range is dependent on time and content of last meal. Glucose of more than 200 mg/dL in a nonstressed, ambulatory subject supports the diagnosis of Diabetes Mellitus. ADA recommended reference range Performed By: #### C BC, BNP, PTT, DDIMER, HS TROP, PT, CMP #### [facility] [address] Hematocrit [Volume Fraction] of Blood by Automated countOrdered By: Nika Fagan on 11-30-2023 Hematocrit (Bld) [Volume fraction] 37.9 % Normal 34.0-46.4 [facility] Comment on above: Performed By: #### C BC, BNP, PTT, DDIMER, HS TROP, PT, CMP #### [facility] [address] Hemoglobin [Mass/volume] in BloodOrdered By: Nika Fagan on 11-30-2023 Hemoglobin (Bld) [Mass/Vol] 12.5 g/dL Normal 11.8-15.4 [facility] Comment on above: Performed By: #### C BC, BNP, PTT, DDIMER, HS TROP, PT, CMP #### [facility] [address] INR in Platelet poor plasma by Coagulation assayOrdered By: Nika Fagan on 11-30-2023 INR Coag (PPP) [Relative time] 1.0 {INR} [facility] Comment on above: INR Therapeutic Rang [...] PTT, DDIMER, HS TROP, PT, CMP #### [facility] [address] [place] [address] Leukocytes [#/volume] correc katia for nucleated erythrocytes in Blood by Automated counOrdered By: Nika Fagan on 11-30-2023 WBC corrected for nucl RBC Auto (Bld) [#/Vol] 6.1 10*3/uL 3.8-11.6 [facility] Leukocytes [#/volume] in Blo od by Automated countOrdered By: Nika Fagan on 11-30-2023 WBC (Bld) [#/Vol] 6.1 10*3/uL Normal 3.8-11.6 [facility] Comment on above: Performed By: #### C BC, BNP, PTT, DDIMER, HS TROP, PT, CMP #### [facility] [address] [place] [address] [place] Lymphocytes [#/volume] in Bl ood by Automated countOrdered By: Nika Fagan on 11-30-2023 Lymphocytes (Bld) [#/Vol] 1.2 10*3/uL Normal 1.00-4.8 [facility] Comment on above: Performed By: #### C BC, BNP, PTT, DDIMER, HS TROP, PT, CMP #### [facility] [address] Lymphocytes/100 leukocytes i n Blood by Automated countOrdered By: Nika Fagan on 11-30-2023 Lymphocytes/100 WBC (Bld) 20.1 % Normal . [facility] Comment on above: Performed By: #### C BC, BNP, PTT, DDIMER, HS TROP, PT, CMP #### [facility] [address] MCH [Entitic mass] by Automa katia countOrdered By: Nika Fagan on 11-30-2023 MCH (RBC) [Entitic mass] 30.0 pg Normal 24.7-34.3 [facility] Comment on above: Performed By: #### C BC, BNP, PTT, DDIMER, HS TROP, PT, CMP #### [facility] [address] [place] [address] MCHC Auto (RBC) [Mass/Vol]Or dered By: Nika Fagan on 11-30-2023 MCHC (RBC) [Mass/Vol] 33.0 g/dL 32.0-35.0 [facility] MCV [Entitic volume] by Auto mated countOrdered By: Nika Fagan on 11-30-2023 MCV (RBC) [Entitic vol] 90.9 fL Normal 80-100 [facility] Comment on above: Performed By: #### C BC, BNP, PTT, DDIMER, HS TROP, PT, CMP #### [facility] [address] [place] [address] Monocyte distribution width [Entitic volume] in Blood by AutomatedOrdered By: Nika Fagan on 11-30-2023 Monocyte distribution width Auto (Bld) [Entitic vol] 16.37 % 0.00-20.00 [facility] Neutrophils [#/volume] in Bl ood by Automated countOrdered By: Nika Fagan on 11-30-2023 Neutrophils (Bld) [#/Vol] 4.1 10*3/uL Normal 1.8-7.7 [facility] Comment on above: Performed By: #### C BC, BNP, PTT, DDIMER, HS TROP, PT, CMP #### [facility] [address] No Panel InformationOrdered By: Nika Fagan on 11-30-2023 Estimated GFR (CKD-EPI) > 60.0 mL/Min [facility] Creatinine Clearance (Chem 43.90 [facility] Nucleated erythrocytes [Pres ence] in Blood by Automated countOrdered By: Nika Fagan on 11-30-2023 Nucleated RBC Auto Ql (Bld) 0.1 /100{WBC} 0-0.5 [facility] Partial Thromboplastin Timeo n 11-30-2023 aPTT Coag (Bld) [Time] 29.1 s Normal 25.1-36.5 [facility] Comment on above: Result Comment: A he matocrit value greater than 55% may lead to inaccurate results in coagulation testing. Patients having hematocrit values >55% require a special collection tube for coagulation studies. Please contact the laboratory at [phone] for redraw instructions. Performed By: #### C BC, BNP, PTT, DDIMER, HS TROP, PT, CMP #### [facility] [address] Platelet mean volume [Entiti c volume] in Blood by Automated countOrdered By: Nika Fagan on 11-30-2023 Platelet mean volume (Bld) [Entitic vol] 9.3 fL Normal 6.3-10.7 [facility] Comment on above: Performed By: #### C BC, BNP, PTT, DDIMER, HS TROP, PT, CMP #### [facility] [address] [place] [address] [place] Platelets [#/volume] in Bloo d by Automated countOrdered By: Nika Fagan on 11-30-2023 Platelets (Bld) [#/Vol] 195 10*3/uL Normal 150-450 [facility] Comment on above: Performed By: #### C BC, BNP, PTT, DDIMER, HS TROP, PT, CMP #### [facility] [address] Potassium [Moles/volume] in Serum or PlasmaOrdered By: Nika Fagan on 11-30-2023 Potassium [Moles/Vol] 4.1 mmol/L Normal 3.5-5.1 [facility] Comment on above: Performed By: #### C BC, BNP, PTT, DDIMER, HS TROP, PT, CMP #### [facility] [address] Protein [Mass/volume] in Ser um or PlasmaOrdered By: Nika Fagan on 11-30-2023 Protein [Mass/Vol] 6.9 g/dL 6.4-8.9 [facility] Comment on above: Performed By: #### C BC, BNP, PTT, DDIMER, HS TROP, PT, CMP #### [facility] [address] Prothrombin time (PT)Ordered By: Nika Fagan on 11-30-2023 PT Coag (PPP) [Time] 11.6 s 9.0-12.9 [facility] Comment on above: A hematocrit value g reater than 55% may lead to inaccurate results in coagulation testing. Patients having hematocrit values >55% require a special collection tube for coagulation studies. Please contact the laboratory at [phone] for redraw instructions. Result Comment: A he matocrit value greater than 55% may lead to inaccurate results in coagulation testing. Patients having hematocrit values >55% require a special collection tube for coagulation studies. Please contact the laboratory at [phone] for redraw instructions. Performed By: #### C BC, BNP, PTT, DDIMER, HS TROP, PT, CMP #### [facility] [address] Serum globulin measurement b y calculation (mass/volume)Ordered By: Nika Fagan on 11-30-2023 Globulin (S) [Mass/Vol] 2.8 g/dL [facility] Comment on above: Performed By: #### C BC, BNP, PTT, DDIMER, HS TROP, PT, CMP #### [facility] [address] Serum or plasma albumin/glob ulin mass ratioOrdered By: Nika Fagan on 11-30-2023 Albumin/Globulin [Mass ratio] 1.5 {ratio} [facility] Comment on above: Performed By: #### C BC, BNP, PTT, DDIMER, HS TROP, PT, CMP #### [facility] [address] Serum or plasma anion gap de terminationOrdered By: Nika Fagan on 11-30-2023 Anion gap [Moles/Vol] 14.1 mmol/L Normal 6.0-15.0 [facility] Comment on above: Performed By: #### C BC, BNP, PTT, DDIMER, HS TROP, PT, CMP #### [facility] [address] [place] [address] Sodium [Moles/volume] in Ser um or PlasmaOrdered By: Nika Fagan on 11-30-2023 Sodium [Moles/Vol] 141 mmol/L Normal 136-145 [facility] Comment on above: Performed By: #### C BC, BNP, PTT, DDIMER, HS TROP, PT, CMP #### [address] Troponin I High Sensitivityo n 11-30-2023 Troponin I High Sensitivity 15.3 pg/mL High 0.0-15.0 [facility] Comment on above: Result Comment: PERF ORMED BY: [place] [address] PATHOLOGIST ADJUNCT WRITING INSTRUCTOR JUDY RASMUSSEN M.D. Performed By: #### H S TROP ####[address] Troponin I High Sensitivity 8.5 pg/mL Normal 0.0-15.0 [facility] Comment on above: Result Comment: PERF ORMED BY: [place] [address] PATHOLOGIST ADJUNCT WRITING INSTRUCTOR JUDY RASMUSSEN M.D. Performed By: #### H S TROP ####[facility] Troponin I High Sensitivity 6.9 pg/mL Normal 0.0-15.0 [facility] Comment on above: Result Comment: PERF ORMED BY: [place] [address] PATHOLOGIST ADJUNCT WRITING INSTRUCTOR JUDY RASMUSSEN M.D. Performed By: #### C BC, BNP, PTT, DDIMER, HS TROP, PT, CMP #### [facility] [address] Troponin I.cardiac [Mass/vol ume] in Serum or Plasma by Detection limit <= 0.01 ng/Ordered By: Nika Fagan on 11-30-2023 Troponin I.cardiac DL <= 0.01 ng/mL [Mass/Vol] 8.5 pg/mL 0.0-15.0 [facility] Urea nitrogen [Mass/volume] in Serum or PlasmaOrdered By: Nika Fagan on 11-30-2023 Urea nitrogen [Mass/Vol] 24 mg/dL Normal 7-25 [facility] Comment on above: Performed By: #### C BC, BNP, PTT, DDIMER, HS TROP, PT, CMP #### [facility] [address] [place], [place] [id number] [place] XR chest 2V*on 11-30-2023 XR chest 2V* [facility] Main [employer] [address] [place] [address] XRay Report Signed Patient: Nora Gibbs MR#: [id number] : 1940 Acct:[id number] Age/Sex: 83 / F ADM Date: 11/30/23 Loc: ER Room: Type: [facility] ER Attending Dr: Copies to: [...] edema and effusion. Impression dictated by: Mathew oMrton M.D.11/30/2023 11:41 AM Dictation Location: [place] [address] Transcribed By: ALEXANDER 11/30/23 1141 Dictated By: Mathew Morton II, MD 11/30/23 1139 Signed By: 11/30/23 1141 Normal [facility] Basophils Auto (Bld) [#/Vol] on 11-20-2023 Basophils (Bld) [#/Vol] 0.1 10 3/uL 0.0-0.1 [facility] Basophils/100 WBC Auto (Bld) on 11-20-2023 Basophils/100 WBC (Bld) 0.6 % 0.2-2.0 [facility] Eosinophils/100 WBC Auto (Bl d)on 11-20-2023 Eosinophils/100 WBC (Bld) 2.4 % 0.9-7.0 [facility] Erythrocyte distribution wid th Auto (RBC) [Ratio]on 11-20-2023 Erythrocyte distribution width (RBC) [Ratio] 13.2 % 11.0-15.0 [facility] Estimated glomerular filtrat ion rate (GFR) non- Americanon 11-20-2023 GFR/1.73 sq M.predicted among non-blacks MDRD (S/P/Bld) [Vol rate/Area] 46 mL/min/{1.73_m2} Low >=60 [facility] Hematocrit Auto (Bld) [Volum e fraction]on 11-20-2023 Hematocrit (Bld) [Volume fraction] 41.6 % 36.0-48.0 [facility] Hemoglobin [Mass/volume] in Bloodon 11-20-2023 Hemoglobin (Bld) [Mass/Vol] 13.2 g/dL 12.0-16.0 [facility] Laboratory - Chemistry and C hemistry - challengeon 11-20-2023 Calcium [Mass/Vol] 9.4 mg/dL 8.5-10.1 [facility] Chloride [Moles/Vol] 106 mmol/L 98-107 [facility] CO2 [Moles/Vol] 26.3 mmol/L 21.0-32.0 [facility] Creatinine [Mass/Vol] 1.12 mg/dL High 0.55-1.02 [facility] GFR/1.73 sq M.predicted MDRD (S/P/Bld) [Vol rate/Area] 56 mL/min/{1.73_m2} Low >=60 [facility] Glucose [Mass/Vol] 108 mg/dL High 74-106 [facility] Natriuretic peptide B (Bld) [Mass/Vol] 491.0 pg/mL <=1800.0 [facility] Potassium [Moles/Vol] 4.2 mmol/L 3.5-5.1 [facility] Sodium [Moles/Vol] 141 mmol/L 136-145 [facility] TSH Qn 0.205 m[IU]/L Low 0.358-3.[address] [facility] Urea nitrogen [Mass/Vol] 20.0 mg/dL High 7.0-18.0 [facility] Urea nitrogen/Creatinine [Mass ratio] 17.9 mg/mg [facility] - Hematology and Cell countson 11-20-2023 Immature granulocytes/100 WBC (Bld) 0.1 % 0.0-0.5 [facility] Leukocytes [#/volume] correc katia for nucleated erythrocytes in Blood by Automated counon 11-20-2023 WBC corrected for nucl RBC Auto (Bld) [#/Vol] 8.0 10 3/uL 4.0-11.0 [facility] Lymphocytes Auto (Bld) [#/Vo l]on 11-20-2023 Lymphocytes (Bld) [#/Vol] 1.8 10 3/uL 1.2-3.8 [facility] Lymphocytes/100 WBC Auto (Bl d)on 11-20-2023 Lymphocytes/100 WBC (Bld) 22.3 % 20.5-60.0 [facility] MCH Auto (RBC) [Entitic mass ]on 11-20-2023 MCH (RBC) [Entitic mass] 29.3 pg 26.7-34.0 [facility] MCHC Auto (RBC) [Mass/Vol]on 11-20-2023 MCHC (RBC) [Mass/Vol] 31.7 g/dL 29.9-35.2 [facility] MCV Auto (RBC) [Entitic vol] on 11-20-2023 MCV (RBC) [Entitic vol] 92.4 fL 81.0-99.0 [facility] Monocytes Auto (Bld) [#/Vol] on 11-20-2023 Monocytes (Bld) [#/Vol] 0.9 10 3/uL High 0.3-0.8 [facility] Monocytes/100 WBC Auto (Bld) on 11-20-2023 Monocytes/100 WBC (Bld) 11.2 % 1.7-12.0 [facility] Neutrophils Auto (Bld) [#/Vo l]on 11-20-2023 Neutrophils (Bld) [#/Vol] 5.1 10 3/uL 1.4-6.5 [facility] Neutrophils/100 WBC Auto (Bl d)on 11-20-2023 Neutrophils/100 WBC (Bld) 63.4 % 43.0-75.0 [facility] No Panel Informationon 11-19 Eosinophils # (Auto) 0.2 10 3/uL 0.0-0.7 [facility] Immature Granulocyte # (Auto) 0.01 10 3/uL 0.00-0.03 [facility] Platelet mean volume Auto (B ld) [Entitic vol]on 11-20-2023 Platelet mean volume (Bld) [Entitic vol] 11.3 fL 9.5-13.5 [facility] Platelets Auto (Bld) [#/Vol] on 11-20-2023 Platelets (Bld) [#/Vol] 255 10 3/uL 150-450 [facility] RBC Auto (Bld) [#/Vol]on RBC (Bld) [#/Vol] 4.50 10 6/uL 4.20-5.40 [facility] Serum or plasma anion gap de terminationon 11-20-2023 Anion gap [Moles/Vol] 12.9 mmol/L [facility] Aerobic Cultureon 05-28-2023 Aerobic Culture Comment Tissue C S R breast Light Normal Skin Aries 2 Days Comment Tissue C S R breast ORGANISM: Prevotella bergensis (O:PREBER) Comments Sent to [facility] for Testing Quantity of Growth Light Growth Antimicrobial susceptibility testing could not be completed due to poor organism growth using the CLSI approved test method. Please see scanned report located in the Laboratory/Scanned Reports section of the EMR. Comment Tissue C S R breast Gram Stain Result No Bacteria Seen PERFORMED BY: [place] [address] PATHOLOGIST ADJUNCT WRITING INSTRUCTOR JUDY RASMUSSEN M.D. Normal [facility] Comment on above: Performed By: #### A ERC ####[place] [id number] [place] [address] [facility] Basic Metabolic Panelon 05-11 Creatinine Clr Calc Pharmacy 44.56 Normal [facility] Comment on above: Result Comment: PERF ORMED BY: [place] [address] PATHOLOGIST ADJUNCT WRITING INSTRUCTOR JUDY RASMUSSEN M.D. Performed By: #### B MP #### [facility] [address] [place] [address] [place] GFR/1.73 sq M.predicted MDRD (S/P/Bld) [Vol rate/Area] mL/min/{1.73_m2} Normal [facility] Comment on above: Performed By: #### B MP #### [address] [address] [facility] Calcium [Mass/volume] in Ser um or PlasmaOrdered By: Shine Lea on 05-28-2023 Calcium [Mass/Vol] 9.3 mg/dL Normal 8.6-10.3 [facility] Comment on above: Performed By: #### B MP #### [address] Carbon dioxide, total [Moles /volume] in Serum or PlasmaOrdered By: Shine Lea on 05-28-2023 CO2 [Moles/Vol] 22.9 mmol/L Normal 21.0-31.0 [facility] Comment on above: Performed By: #### B MP #### [place] [address] [place] Chloride [Moles/volume] in S tyron or PlasmaOrdered By: Shine Verduzcoain on 05-28-2023 Chloride [Moles/Vol] 109 mmol/L High 98-107 [facility] Comment on above: Performed By: #### B MP #### [address] Creatinine [Mass/volume] in Serum or PlasmaOrdered By: Shine Verduzcoain on 05-28-2023 Creatinine [Mass/Vol] 0.89 mg/dL Normal 0.60-1.20 [facility] Comment on above: Performed By: #### B MP #### [address] Glucose [Mass/volume] in Ser um or PlasmaOrdered By: Shine Lea on 05-28-2023 Glucose [Mass/Vol] 113 mg/dL High 70-100 [facility] Comment on above: ADA recommended refe rence rangeRandom Glucose Reference Range is dependent on time and content of last meal. Glucose of more than 200 mg/dL in a nonstressed, ambulatory subject supports the diagnosis of Diabetes Mellitus. Result Comment: [place] Glucose Reference Range is dependent on time and content of last meal. Glucose of more than 200 mg/dL in a nonstressed, ambulatory subject supports the diagnosis of Diabetes Mellitus. ADA recommended reference range Performed By: #### B MP #### [place] [id number] [place] 05-28-2023 L ----- Specimen: [id number] Received: 05/28/23 Status: HAMZAH Dunbar Num: [id number] Spec Type: Surgical Subm Dr: Luis Angel Saucedo MD Tissues: A Debridement-Skin/Other Than Skin (POD RT BRST) Procedures: Jay CHAUDHRY/Savanna L3 Age/ Patient Sex Location Account Attending Physician Nora Gibbs 83/F [place] [id number] Luis Angel Saucedo MD SPEC NUM: [id number] RECD: 05/28/23 STATUS: HAMZAH DUNBAR NUM: [id number] NEDA: 05/28/[address] [facility] [address]: Luis Angel Saucedo MD ENTERED: 05/28/23 [facility] DR: SPEC TYPE: Surgical DEPT: S ENTERED BY: [id number] RECV BY: [id number] ORDERED: ISIDORO Gross/Micro L3 ORDERED: Jay CHAUDHRY/Micro [...] The microscopic examination confirms the diagnosis. Specimen: [id number] Received: 05/28/23 Status: HAMZAH Jenn Num: [id number] Spec Type: Surgical Subm Dr: Luis Angel Saucedo MD Tissues: A Debridement-Skin/Other Than Skin (POD RT BRST) Procedures: Jay CHAUDHRY/Savanna L3 Patient: MeaganjackNroa Marianne [id number] (Continued) Specimen: [id number] Received: 05/28/23 (Continued) Signed (signature on file) Zacarias Hunt MD 05/29/23 1548 Specimen: [id number] Received: 05/28/23 Status: HAMZAH Dunbar Num: [id number] Spec Type: Surgical Subm Dr: Luis Angel Saucedo MD Tissues: A Debridement-Skin/Other Than Skin (POD RT BRST) Procedures: Jay CHAUDHRY/[place] L3 Patient: Nora Gibbs [id number] (Continued) Specimen: [id number] Received: 05/28/23 (Continued) CPT Codes 34815 Specimen: [id number] Received: 05/28/23 Status: HAMZAH Jenn Num: [id number] Spec Type: Surgical Subm Dr: Luis Angel Saucedo MD Tissues: A Debridement-Skin/Other Than Skin (POD RT BRST) Procedures: Jay CHAUDHRY/Savanna L3 Patient: Nora Gibbs [id number] (Continued) Signed (signature on file) Zacarias Hunt MD 05/29/23 4137 Normal [facility] No Panel InformationOrdered By: Shine Lea on 05-28-2023 Estimated GFR (CKD-EPI) > 60.0 mL/Min [facility] Creatinine Clearance (Chem 44.56 [facility] Potassium [Moles/volume] in Serum or PlasmaOrdered By: Shine Lea on 05-28-2023 Potassium [Moles/Vol] 4.1 mmol/L Normal 3.5-5.1 [facility] Comment on above: Performed By: #### B MP #### [facility] [address] Serum or plasma anion gap de terminationOrdered By: Shine Verduzcoain on 05-28-2023 Anion gap [Moles/Vol] 12.2 mmol/L Normal 6.0-15.0 [facility] Comment on above: Performed By: #### B MP #### [address] Sodium [Moles/volume] in Ser um or PlasmaOrdered By: Shine Leonora on 05-28-2023 Sodium [Moles/Vol] 140 mmol/L Normal 136-145 [facility] Comment on above: Performed By: #### B MP #### [address] Urea nitrogen [Mass/volume] in Serum or PlasmaOrdered By: Shine Verduzcoain on 05-28-2023 Urea nitrogen [Mass/Vol] 25 mg/dL Normal 7-25 [facility] Comment on above: Performed By: #### B MP #### [address] Automated basophil %Ordered By: Luis Angel Saucedo on 05-17-2023 Basophils/100 WBC (Bld) 0.7 % Normal . [facility] Comment on above: Performed By: #### C BC, BMP ####[facility] [id number] [place] [address] Automated basophil countOrde red By: Luis Angel Saucedo on 05-17-2023 Basophils (Bld) [#/Vol] 0.1 10*3/uL Normal 0.0-0.2 [facility] Comment on above: Result Comment: PERF ORMED BY: [facility] [address] [place] [address] PATHOLOGIST ADJUNCT WRITING INSTRUCTOR JUDY RASMUSSEN M.D. Performed By: #### C BC, BMP ####[place] [id number] Automated blood monocyte cou ntOrdered By: Luis Angel Saucedo on 05-17-2023 Monocytes (Bld) [#/Vol] 1.0 10*3/uL High 0.0-0.8 [facility] Comment on above: Performed By: #### C BC, BMP ####[address] Automated eosinophil %Ordere d By: Luis Angel Saucedo on 05-17-2023 Eosinophils/100 WBC (Bld) 1.6 % Normal . [facility] Comment on above: Performed By: #### C BC, BMP ####[address] Automated eosinophil countOr dered By: Luis Angel Saucedo on 05-17-2023 Eosinophils (Bld) [#/Vol] 0.2 10*3/uL Normal 0.0-0.45 [facility] Comment on above: Performed By: #### C BC, BMP ####[address] Automated monocyte %Ordered By: Lius Angel Saucedo on 05-17-2023 Monocytes/100 WBC (Bld) 10.3 % Normal . [facility] Comment on above: Performed By: #### C BC, BMP ####[place] [id number] [facility] Automated neutrophil %Ordere d By: Luis Angel Saucedo on 05-17-2023 Neutrophils/100 WBC (Bld) 72.8 % Normal . [facility] Comment on above: Performed By: #### C BC, BMP ####[place] [id number] [facility] Basic Metabolic Panelon 12-0 Anion gap [Moles/Vol] Not performed Normal 6.0-15.0 [facility] Comment on above: Performed By: #### C BC, BMP ####[place] [id number] [facility] GFR/1.73 sq M.predicted MDRD (S/P/Bld) [Vol rate/Area] 55.878 mL/min/{1.73_m2} Normal [facility] Comment on above: Performed By: #### C BC, BMP ####[place] [id number] [facility] Potassium Normal 3.5-5.1 [facility] Comment on above: Result Comment: Spec imen hemolyzed, callback initiated if needed Performed By: #### C TRACY, BMP ####[place] [id number] [facility] Calcium [Mass/volume] in Ser um or PlasmaOrdered By: Luis Angel Saucedo on 05-17-2023 Calcium [Mass/Vol] 9.8 mg/dL Normal 8.6-10.3 [facility] Comment on above: Result Comment: PERF ORMED BY: [facility] [address] [address] PATHOLOGIST ADJUNCT WRITING INSTRUCTOR JUDY RASMUSSEN M.D. Performed By: #### C TRACY, BMP ####[place] [id number] [facility] Carbon dioxide, total [Moles /volume] in Serum or PlasmaOrdered By: Luis Angel Saucedo on 05-17-2023 CO2 [Moles/Vol] 25.5 mmol/L Normal 21.0-31.0 [facility] Comment on above: Performed By: #### C BC, BMP ####[place] [id number] [place] Chloride [Moles/volume] in S tyron or PlasmaOrdered By: Luis Angel Saucedo on 05-17-2023 Chloride [Moles/Vol] 108 mmol/L High 98-107 [facility] Comment on above: Performed By: #### C BC, BMP ####[facility] [place] [id number] [facility] Complete Blood Count Auto Di ffon 05-17-2023 Mean Corpuscular HGB Conc 33.3 g/dL Normal 32.0-35.0 [facility] Comment on above: Performed By: #### C BC, BMP ####[place] [address] [place] [id number] [facility] NRBC% 0.1 /100{WBC} Normal 0-0.[address] [facility] Comment on above: Performed By: #### C BC, BMP ####[place] [address] [place] [id number] [facility] Creatinine [Mass/volume] in Serum or PlasmaOrdered By: Luis Angel Saucedo on 05-17-2023 Creatinine [Mass/Vol] 0.99 mg/dL Normal 0.60-1.20 [facility] Comment on above: Performed By: #### C TRACY, BMP ####[place] [address] [place] [id number] [facility] ECG 12 lead ECGon 05-17-2023 ECG 12 lead ECG [facility] [address] [place] [address] Electrocardiograph Report Signed Patient: Nora Gibbs MR#: [id number] : 1940 Acct:[id number] Age/Sex: 83 / F ADM Date: 05/17/23 Loc: Room: Type: [facility] Attending Dr: Luis Angel Saucedo MD [...] change was found Confirmed by ARPAN ELLSWORTH [facility], STEFANIE ([id number]) on 05/17/2023 3:19:51 PM Referred By: LEWIS Electronically Signed By:STEFANIE ANTONY MD [facility] Transcribed By: ANI Signed By Stefanie Antony MD, [facility] 05/17/23 1519 Normal [facility] Erythrocyte distribution wid th [Ratio] by Automated countOrdered By: Luis Angel Saucedo on 05-17-2023 Erythrocyte distribution width (RBC) [Ratio] 14.3 % Normal 11.9-15.3 [facility] Comment on above: Performed By: #### C BC, BMP ####[id number] [place] [address] [facility] Erythrocytes [#/volume] in B lood by Automated countOrdered By: Luis Angel Saucedo on 05-17-2023 RBC (Bld) [#/Vol] 4.16 10*6/uL Normal 3.60-5.00 [facility] Comment on above: Performed By: #### C TRACY, BMP ####[address] [id number] [place] [id number] [facility] Glucose [Mass/volume] in Ser um or PlasmaOrdered By: Luis Angel Saucedo on 05-17-2023 Glucose [Mass/Vol] 101 mg/dL High 70-100 [facility] Comment on above: ADA recommended refe rence rangeRandom Glucose Reference Range is dependent on time and content of last meal. Glucose of more than 200 mg/dL in a nonstressed, ambulatory subject supports the diagnosis of Diabetes Mellitus. Result Comment: [place] Glucose Reference Range is dependent on time and content of last meal. Glucose of more than 200 mg/dL in a nonstressed, ambulatory subject supports the diagnosis of Diabetes Mellitus. ADA recommended reference range Performed By: #### C BC, BMP ####[place] [id number] [facility] Hematocrit [Volume Fraction] of Blood by Automated countOrdered By: Luis Angel Saucedo on 05-17-2023 Hematocrit (Bld) [Volume fraction] 36.6 % Normal 34.0-46.4 [facility] Comment on above: Performed By: #### C BC, BMP ####[place] [id number] [facility] Hemoglobin [Mass/volume] in BloodOrdered By: Luis Angel Saucedo on 05-17-2023 Hemoglobin (Bld) [Mass/Vol] 12.2 g/dL Normal 11.8-15.4 [facility] Comment on above: Performed By: #### C TRACY, BMP ####[address] Leukocytes [#/volume] correc katia for nucleated erythrocytes in Blood by Automated counOrdered By: Luis Angel Saucedo on 05-17-2023 WBC corrected for nucl RBC Auto (Bld) [#/Vol] 10.1 10*3/uL 3.8-11.6 [facility] Leukocytes [#/volume] in Blo od by Automated countOrdered By: Luis Angel Saucedo on 05-17-2023 WBC (Bld) [#/Vol] 10.1 10*3/uL Normal 3.8-11.6 [facility] Comment on above: Performed By: #### C TRACY, BMP ####[address] Lymphocytes [#/volume] in Bl ood by Automated countOrdered By: Luis Angel Saucedo on 05-17-2023 Lymphocytes (Bld) [#/Vol] 1.5 10*3/uL Normal 1.00-4.8 [facility] Comment on above: Performed By: #### C TRACY, BMP ####[place] [id number] [facility] Lymphocytes/100 leukocytes i n Blood by Automated countOrdered By: Luis Angel Saucedo on 05-17-2023 Lymphocytes/100 WBC (Bld) 14.6 % Normal . [facility] Comment on above: Performed By: #### C TRACY, BMP ####[place] [id number] [facility] MCH [Entitic mass] by Automa katia countOrdered By: Luis Angel Saucedo on 05-17-2023 MCH (RBC) [Entitic mass] 29.4 pg Normal 24.7-34.3 [facility] Comment on above: Performed By: #### C TRACY, BMP ####[place] [id number] MCHC Auto (RBC) [Mass/Vol]Or dered By: Luis Angel Saucedo on 05-17-2023 MCHC (RBC) [Mass/Vol] 33.3 g/dL 32.0-35.0 [facility] MCV [Entitic volume] by Auto mated countOrdered By: Luis Angel Saucedo on 05-17-2023 MCV (RBC) [Entitic vol] 88.1 fL Normal 80-100 [facility] Comment on above: Performed By: #### C TRACY, BMP ####[address] Neutrophils [#/volume] in Bl ood by Automated countOrdered By: Luis Angel Saucedo on 05-17-2023 Neutrophils (Bld) [#/Vol] 7.3 10*3/uL Normal 1.8-7.7 [facility] Comment on above: Performed By: #### C TRACY, BMP ####[address] No Panel InformationOrdered By: Luis Angel Saucedo on 05-17-2023 Estimated GFR (CKD-EPI) 55.878 mL/Min [facility] Creatinine Clearance (Chem N/A [facility] Nucleated erythrocytes [Pres ence] in Blood by Automated countOrdered By: Luis Angel Saucedo on 05-17-2023 Nucleated RBC Auto Ql (Bld) 0.1 /100{WBC} 0-0.5 [facility] Platelet mean volume [Entiti c volume] in Blood by Automated countOrdered By: Luis Angel Saucedo on 05-17-2023 Platelet mean volume (Bld) [Entitic vol] 10.6 fL Normal 6.3-10.7 [facility] Comment on above: Performed By: #### C TRACY, BMP ####[address] Platelets [#/volume] in Bloo d by Automated countOrdered By: Luis Angel Saucedo on 05-17-2023 Platelets (Bld) [#/Vol] 228 10*3/uL Normal 150-450 [facility] Comment on above: Performed By: #### C TRACY, BMP ####[facility] [address] [place] [address] [facility] Potassium [Moles/volume] in Serum or PlasmaOrdered By: Luis Angel Saucedo on 05-17-2023 Potassium [Moles/Vol] See comment 3.5-5.1 [facility] Comment on above: Specimen hemolyzed, callback initiated if needed Serum or plasma anion gap de terminationOrdered By: Luis Angel Saucedo on 05-17-2023 Anion gap [Moles/Vol] TNP [facility] Comment on above: Test not performed Sodium [Moles/volume] in Ser um or PlasmaOrdered By: Luis Angel Saucedo on 05-17-2023 Sodium [Moles/Vol] 141 mmol/L Normal 136-145 [facility] Comment on above: Performed By: #### C TRACY, BMP ####[facility] [place] [place] [address] [facility] Urea nitrogen [Mass/volume] in Serum or PlasmaOrdered By: Luis Angel Saucedo on 05-17-2023 Urea nitrogen [Mass/Vol] 19 mg/dL Normal 7-25 [facility] Comment on above: Performed By: #### C TRACY, BMP ####[facility] [place] [place] [address] [facility] Physician Referralon formerly [facility] Physician Referral [phone] [id number] Normal [facility] CULTURE WOUNDon 08-17-2022 CULTURE WOUND Culture Observations : LIGHT GROWTH OF NORMAL SKIN ARIES. Culture Observations: NO GROWTH OF ANAEROBES AT 72 HOURS. Normal [facility] Comment on above: Performed By: #### W OUNDCX #### [facility] [address] [address] [address] Michael Hunt MG MAMM DIAGNOSTIC 3D GERARDO CA Don 08-17-2022 MG MAMM DIAGNOSTIC 3D GERARDO CAD Patient: NORA GIBBS Exam Date: 08/17/2022 : 1940 Gender:F Ordering : DR NOBLE HAYES D.O. Admission #: [id number] Family : Order #: [id number] CLICK HERE TO VIEW EXAM RADIOLOGY REPORT [...] liver/uterine cancer at age 62. LOCATION: [facility] BREAST COMPOSITION: Scattered areas fibroglandular density. FINDINGS: [...] MD on 08/17/2022 at 14:32 Normal [facility] US BREAST RIGHT LIMITEDon US BREAST RIGHT LIMITED Patient: NORA GIBBS Exam Date: 08/17/2022 : 1940 Gender:F Ordering : DR NOBLE HAYES D.O. Admission #: [id number] Family : Order #: [id number] CLICK HERE TO VIEW EXAM RADIOLOGY REPORT [...] liver/uterine cancer at age 62. LOCATION: [facility] BREAST COMPOSITION: Scattered areas fibroglandular density. FINDINGS: [...] on 08/17/2022 at 14:26 Approved by: Margie Loepz MD on 08/17/2022 at 14:32 Normal [facility] US BREAST RIGHT LIMITED Chance (app) Other CBC AUTO DIFFon 01-26-2022 BASO # 0.1 103/ul Normal 0.0-0.1 [facility] Comment on above: Performed By: #### C BC #### [facility] [address] [address] [address] Michael Hunt Basophils/100 WBC (Bld) 0.4 % Normal 0.2-2.0 [facility] Comment on above: Performed By: #### C BC #### [facility] [address] [address] [address] Michael Hunt EO # 0.3 103/ul Normal 0.0-0.7 [facility] Comment on above: Performed By: #### C BC #### [facility] [address] [address] [address] Michael Hunt Eosinophils/100 WBC (Bld) 2.5 % Normal 0.9-7.0 [facility] Comment on above: Performed By: #### C BC #### [facility] [address] [place] [address] Dr. Michael Hunt Erythrocyte distribution width (RBC) [Ratio] 14.9 % Normal 11.0-15.0 [facility] Comment on above: Performed By: #### C BC #### [facility] [address] [address] [address] Michael Hunt Hematocrit (Bld) [Volume fraction] 37.0 % Normal 36.0-48.0 [facility] Comment on above: Performed By: #### C BC #### [facility] [address] [address] [address] Michael Hunt Hemoglobin (Bld) [Mass/Vol] 11.9 g/dL Critically low 12.0-16.0 [facility] Comment on above: Performed By: #### C BC #### [facility] [address] [address] [address] Michael Hunt IG # 0.06 10e3/ul Critically high 0.00-0.03 [facility] Comment on above: Performed By: #### C BC #### [facility] [address] [address] [address] Michael Hunt IG % 0.5 % Normal 0.0-0.5 [facility] Comment on above: Performed By: #### C BC #### [facility] [address] [address] [address] Michael Hunt LYMPH # 1.7 103/ul Normal 1.2-3.8 [facility] Comment on above: Performed By: #### C BC #### [facility] [address] [place] [address] Dr. Michael Hunt Lymphocytes/100 WBC (Bld) 15.5 % Critically low 20.5-60.0 [facility] Comment on above: Performed By: #### C BC #### [facility] [address] [place] [address] Dr. Michael Hunt MANUAL DIFF REQ NO Normal [facility] Comment on above: Performed By: #### C BC #### [facility] [address] [place] [address] Dr. Michael Hunt MCH (RBC) [Entitic mass] 29.2 pg Normal 26.7-34.0 [facility] Comment on above: Performed By: #### C BC #### [facility] [address] [place] [address] Dr. Michael Hunt MCHC (RBC) [Mass/Vol] 32.2 g/dL Normal 29.9-35.2 [facility] Comment on above: Performed By: #### C BC #### [facility] [address] [place] [address] Dr. Michael Hunt MCV (RBC) [Entitic vol] 90.9 fL Normal 81.0-99.0 [facility] Comment on above: Performed By: #### C BC #### [facility] [address] [place] [address] Dr. Michael Hunt MONO # 1.2 103/ul Critically high 0.3-0.8 [facility] Comment on above: Performed By: #### C BC #### [facility] [address] [place] [address] Dr. Michael Hunt Monocytes/100 WBC (Bld) 11.0 % Normal 1.7-12.0 [facility] Comment on above: Performed By: #### C BC #### [facility] [address] [address] [address] Michael Hunt NEUT # 7.8 103/ul Critically high 1.4-6.5 [facility] Comment on above: Performed By: #### C BC #### [facility] [address] [address] [address] Michael Hunt Neutrophils/100 WBC (Bld) 70.1 % Normal 43.0-75.0 [facility] Comment on above: Performed By: #### C BC #### [facility] [address] [address] [address] Michael Hunt Platelet mean volume (Bld) [Entitic vol] 10.2 fL Normal 9.5-13.5 [facility] Comment on above: Performed By: #### C BC #### [facility] [address] [place] [address] Dr. Michael Hunt PLT 245 103/ul Normal 150-450 [facility] Comment on above: Performed By: #### C BC #### [facility] [address] [address] [address] Michael Hunt RBC 4.07 106/ul Critically low 4.20-5.40 [facility] Comment on above: Performed By: #### C BC #### [facility] [address] [place] [address] Dr. Michael Hunt WBC 11.1 103/ul Critically high 4.0-11.0 [facility] Comment on above: Performed By: #### C BC #### [facility] [address] [place] [address] Dr. Michael Hunt LIPID PROFILEon 01-26-2022 CHOL-HDL RATIO NORM SEE BELOW Normal [facility] Comment on above: Result Comment: 3.3 - 4.4 LOW RISK 4.4 - 7.1 AVERAGE RISK 7.1 - 11.0 MODERATE RISK >11.0 HIGH RISK Performed By: #### L IPID, ALT, TSH, BMP #### [facility] [address] [address] [address] Michael Hunt Cholesterol [Mass/Vol] 132 mg/dL Normal <=200 Th e [facility] Comment on above: Performed By: #### L IPID, ALT, TSH, BMP #### [facility] [address] [address] [address] Michael Hunt Cholesterol in HDL [Mass/Vol] 53 mg/dL Normal 40-60 [facility] Comment on above: Performed By: #### L IPID, ALT, TSH, BMP #### [facility] [address] [address] [address] Michael Hunt Cholesterol in LDL [Mass/Vol] 43.0 mg/dL Normal [facility] Comment on above: Performed By: #### L IPID, ALT, TSH, BMP #### [facility] [address] [place] [address] Dr. Michael Hunt Cholesterol.total/Chol esterol in HDL [Mass ratio] 2.5 {ratio} Normal [facility] Comment on above: Performed By: #### L IPID, ALT, TSH, BMP #### [facility] [address] [place] [address] Dr. Michael Hunt HDL NORMAL > or = 60 mg/dl - LO W CARDIOVASCULAR RISK <40 mg/dl - HIGH CARDIOVASCULAR RISK Normal [facility] Comment on above: Performed By: #### L IPID, ALT, TSH, BMP #### [facility] [address] [place] [address] Dr. Michael Hunt LDL CALC NORMAL SEE BELOW Normal [facility] Comment on above: Result Comment: <100 mg/dl OPTIMAL 100 - 129 mg/dl NEAR OR ABOVE OPTIMAL 130 - 159 mg/dl BORDERLINE HIGH 160 - 189 mg/dl HIGH >190 mg/dl VERY HIGH Performed By: #### L IPID, ALT, TSH, BMP #### [facility] [address] [place] [address] Dr. Michael Hunt Triglyceride [Mass/Vol] 180 mg/dL Critically high <=150 [facility] Comment on above: Performed By: #### L IPID, ALT, TSH, BMP #### [facility] [address] [place] [address] Dr. Michael Hunt VLDL CALC 36.0 mg/dL Normal [facility] Comment on above: Performed By: #### L IPID, ALT, TSH, BMP #### [facility] [address] [place] [address] Dr. Michael Hunt PROF CHEM 8 (BAS METB)on Anion gap [Moles/Vol] 13.2 mmol/L Normal [facility] Comment on above: Performed By: #### L IPID, ALT, TSH, BMP #### [facility] [address] [place] [address] Dr. Michael Hunt Calcium [Mass/Vol] 9.3 mg/dL Normal 8.5-10.1 [facility] Comment on above: Performed By: #### L IPID, ALT, TSH, BMP #### [facility] [address] [place] [address] Dr. Michael Hunt Chloride [Moles/Vol] 104 mmol/L Normal 98-107 [facility] Comment on above: Performed By: #### L IPID, ALT, TSH, BMP #### [facility] [address] [place] [address] Dr. Michael Hunt CO2 [Moles/Vol] 24.7 mmol/L Normal 21.0-32.0 [facility] Comment on above: Performed By: #### L IPID, ALT, TSH, BMP #### [facility] [address] [place] [address] Dr. Michael Hunt Creatinine [Mass/Vol] 1.20 mg/dL Critically high 0.55-1.02 [facility] Comment on above: Performed By: #### L IPID, ALT, TSH, BMP #### [facility] [address] [place] [address] Dr. Michael Hunt EGFR-AF PRYDEINIG 52 mL/min/1.73m2 Critically low >=60 [facility] Comment on above: Performed By: #### L IPID, ALT, TSH, BMP #### [facility] [address] [place] [address] Dr. Michael Hunt EGFR-NON AF PRYDEINIG 43 mL/min/1.73m2 Critically low >=60 [facility] Comment on above: Performed By: #### L IPID, ALT, TSH, BMP #### [facility] [address] [place] [address] Dr. Michael Hunt Glucose [Mass/Vol] 99 mg/dL Normal 74-106 [facility] Comment on above: Performed By: #### L IPID, ALT, TSH, BMP #### [facility] [address] [place] [address] Dr. Michael Hunt Potassium [Moles/Vol] 4.9 mmol/L Normal 3.5-5.1 [facility] Comment on above: Performed By: #### L IPID, ALT, TSH, BMP #### [facility] [address] [place] [address] Dr. Michael Hunt Sodium [Moles/Vol] 137 mmol/L Normal 136-145 [facility] Comment on above: Performed By: #### L IPID, ALT, TSH, BMP #### [facility] [address] [place] [address] Dr. Michael Hunt Urea nitrogen [Mass/Vol] 30.0 mg/dL Critically high 7.0-18.0 [facility] Comment on above: Performed By: #### L IPID, ALT, TSH, BMP #### [facility] [address] [place] [address] Dr. Michael Hunt Urea nitrogen/Creatinine [Mass ratio] 25.0 mg/mg Normal [facility] Comment on above: Performed By: #### L IPID, ALT, TSH, BMP #### [facility] [address] [place] [address] Dr. Michael Hunt SGPTon 01-26-2022 ALT [Catalytic activity/Vol] 54 U/L Normal 14-59 [facility] Comment on above: Performed By: #### L IPID, ALT, TSH, BMP #### [facility] [address] [place] [address] Dr. Michael Hunt TSHon 01-26-2022 TSH 5.136 uIU/mL Critically high 0.358-3.74 0 [facility] Comment on above: Performed By: #### L IPID, ALT, TSH, BMP #### [facility] [address] [place], [place] [address] Dr. Michael Hunt Cardiovascular Lab Reporton 09-03-2018 Cardiovascular Lab Report [facility] Patient Name: Sai [facility] Marianne MR #: [id number] Department of Physician: [facility] Julia Zepeda M.D. Division of Service Date: 09/03/2018 Cardiology Birthdate: 1940 Adult Cardiovascular Room #: [facility] [address] [facility] [place] [address] Cardiovascular Laboratory Report INDICATION: The patient is [...] informed consent. She was brought to the biology laboratory assistant in a fasting state. The right groin area was prepped and draped in usual fashion. Using micropuncture technique, the right common femoral artery was accessed. The inner cannula was advanced and right femoral angiography was performed followed by upsizing to a 6-Indian x 11 cm sheath. Access was also obtained using the same technique in the right common femoral vein and a 6-Indian x 11 cm sheath was placed. A 6-Indian Lee catheter was used for right heart catheterization with measurement of pressures and calculation of cardiac output using the estimated Patricia method. Lee catheter was removed. Bilateral selective coronary angiography was then performed using 6-Indian JL4 and JR4 diagnostic catheters. Catheters were removed. Heparin was administered intravenously and therapeutic ACT confirmed during the rest of the procedure and additional heparin given as needed. A 6-Indian JR4 guiding catheter was advanced and used [...] atmospheres and post dilated using NC Quantum Upham 3.0 x 8 mm noncompliant balloon inflated [...] Zepeda M.D. Date Trans: 09/03/2018 02:15 P/jaswinder [id number] Normal [facility] Vital Signs Date Time Vital Sign Value Performing Clinician Facility 02-23-2025 13:29-0400 Body height 154.94 cm [facility] [employer] SARL DO Work Phone: [facility] 02-23-2025 13:29-0400 Body mass index (BMI) [Ratio] 33.9 kg/m2 [facility] [employer] SARL DO Work Phone: [facility] 02-23-2025 13:29-040 Body weight 81.41 kg [facility] [employer] SARL DO Work Phone: [facility] 02-23-2025 13:29-0400 Diastolic blood pressure 72 mm[Hg] [place] Ball DO Work Phone: [facility] 02-23-2025 13:29-0400 Diastolic blood pressure 89 mm[Hg] [place] Ball DO Work Phone: [facility] 02-23-2025 13:29-0400 Heart rate 66 /min [facility] [employer] SARL DO Work Phone: [facility] 02-23-2025 13:29-0400 Respiratory rate 24 /min [place] Ball DO Work Phone: [facility] 02-23-2025 13:29-0400 Systolic blood pressure 151 mm[Hg] [place] Ball DO Work Phone: [facility] 02-23-2025 13:29-0400 Systolic blood pressure 139 mm[Hg] [place] Ball DO Work Phone: [facility] 01-27-2025 10:24-0400 Body height 154.94 cm [place] Ball DO Work Phone: [facility] 01-27-2025 10:24-0400 Body mass index (BMI) [Ratio] 34.2 kg/m2 [place] Ball DO Work Phone: [facility] 01-27-2025 10:24-0400 Body weight 82.1 kg [place] Ball DO Work Phone: [facility] 01-27-2025 10:24-0400 Diastolic blood pressure 84 mm[Hg] [place] Ball DO Work Phone: [facility] 01-27-2025 10:24-0400 Systolic blood pressure 134 mm[Hg] [place] Ball DO Work Phone: [facility] 11-26-2024 11:49-0400 Body height 154.94 cm [place] Ball DO Work Phone: [facility] 11-26-2024 11:49-0400 Body mass index (BMI) [Ratio] 34.4 kg/m2 [place] Ball DO Work Phone: [facility] 11-26-2024 11:49-0400 Body weight 82.55 kg [place] Ball DO Work Phone: [facility] 11-26-2024 11:49-0400 Diastolic blood pressure 89 mm[Hg] [place] Ball DO Work Phone: [facility] 11-26-2024 11:49-0400 Heart rate 56 /min [place] Ball DO Work Phone: [facility] 11-26-2024 11:49-0400 SaO2% (BldA) [Mass fraction] 97 % [place] Ball DO Work Phone: [facility] 11-26-2024 11:49-0400 Systolic blood pressure 139 mm[Hg] [place] Hayes DO Work Phone: [facility] 11-19-2024 13:48-0400 Body height 154.94 cm [facility] 11-19-2024 13:48-0400 Body mass index (BMI) [Ratio] 34.5 kg/m2 [facility] 11-19-2024 13:48-0400 Body weight 83 kg [facility] 11-19-2024 13:48-0400 Diastolic blood pressure 69 mm[Hg] [facility] 11-19-2024 13:48-0400 Heart rate 56 /min [facility] 11-19-2024 13:48-0400 Respiratory rate 12 /min [facility] 11-19-2024 13:48-0400 Systolic blood pressure 158 mm[Hg] [facility] 10-06-2024 13:34-0400 Body height 154.94 cm [facility] 10-06-2024 13:34-0400 Body mass index (BMI) [Ratio] 34.6 kg/m2 [facility] 10-06-2024 13:34-0400 Body weight 83.17 kg [facility] 10-06-2024 13:34-0400 Diastolic blood pressure 68 mm[Hg] [facility] 10-06-2024 13:34-0400 Heart rate 85 /min [facility] 10-06-2024 13:34-0400 Respiratory rate 24 /min [facility] 10-06-2024 13:34-0400 SaO2% (BldA) [Mass fraction] 93 % [facility] 10-06-2024 13:34-0400 Systolic blood pressure 113 mm[Hg] [facility] 08-22-2024 12:02-0400 Body height 154.94 cm [facility] 08-22-2024 12:02-0400 Body mass index (BMI) [Ratio] 34.9 kg/m2 [facility] [facility] 08-22-2024 12:02-0400 Body weight 84.02 kg [facility] 08-22-2024 12:02-0400 Diastolic blood pressure 74 mm[Hg] [facility] 08-22-2024 12:02-0400 Heart rate 54 /min [facility] 08-22-2024 12:02-0400 Respiratory rate 16 /min [facility] 08-22-2024 12:02-0400 Systolic blood pressure 163 mm[Hg] [facility] 05-27-2024 14:59-0500 Body height 154.94 cm [facility] 05-27-2024 14:59-0500 Body mass index (BMI) [Ratio] 35.2 kg/m2 [facility] 05-27-2024 14:59-0500 Body weight 84.48 kg [facility] 05-27-2024 14:59-0500 Diastolic blood pressure 71 mm[Hg] [facility] 05-27-2024 14:59-0500 Heart rate 62 /min [facility] 05-27-2024 14:59-0500 Respiratory rate 12 /min [facility] 05-27-2024 14:59-0500 Systolic blood pressure 156 mm[Hg] [facility] 02-19-2024 10:27-0400 Body height 154.94 cm DO Nika Brown Work Phone: [facility] 02-19-2024 10:27-0400 Body mass index (BMI) [Ratio] 34.7 kg/m2 DO Nika Brown Work Phone: [facility] 02-19-2024 10:27-0400 Body weight 83.46 kg DO Nika Brown Work Phone: [facility] 02-19-2024 10:27-0400 Diastolic blood pressure 66 mm[Hg] DO Nika Brown Work Phone: [facility] 02-19-2024 10:27-0400 Heart rate 60 /min DO Nika Brown Work Phone: [facility] 02-19-2024 10:27-0400 Respiratory rate 20 /min DO Nika Brown Work Phone: [facility] 02-19-2024 10:27-0400 Systolic blood pressure 170 mm[Hg] DO Nika Brown Work Phone: [facility] 12-07-2023 11:49-0400 Body height 154.94 cm DO Nika Brown Work Phone: [facility] 12-07-2023 11:49-0400 Body mass index (BMI) [Ratio] 34.2 kg/m2 DO Nika Brown Work Phone: [facility] 12-07-2023 11:49-0400 Body weight 82.15 kg DO Nika Brown Work Phone: [facility] 12-07-2023 11:49-0400 Diastolic blood pressure 72 mm[Hg] DO Nika Brown Work Phone: [facility] 12-07-2023 11:49-0400 Heart rate 69 /min DO Nika Brown Work Phone: [facility] 12-07-2023 11:49-0400 Respiratory rate 20 /min DO Nika Brown Work Phone: [facility] 12-07-2023 11:49-0400 SaO2% (BldA) [Mass fraction] 98 % DO Nika Brown Work Phone: [facility] 12-07-2023 11:49-0400 Systolic blood pressure 150 mm[Hg] DO Nika Brown Work Phone: [facility] 12-01-2023 15:17-0400 Diastolic blood pressure 72 mm[Hg] DO Nika Brown Work Phone: [facility] 12-01-2023 15:17-0400 Heart rate 60 /min DO Nika Brown Work Phone: [facility] 12-01-2023 15:17-0400 Respiratory rate 20 /min DO Nika Brown Work Phone: [facility] 12-01-2023 15:17-0400 SaO2% (BldA) [Mass fraction] 96 % DO Nika Brown Work Phone: [facility] 12-01-2023 15:17-0400 Systolic blood pressure 137 mm[Hg] DO Nika Brown Work Phone: [facility] 12-01-2023 11:55-0400 Body temperature 97.4 [degF] DO Nika Brown Work Phone: [facility] 12-01-2023 06:08-0400 Body weight 80.5 kg DO Nika Brown Work Phone: [facility] 11-30-2023 15:41-0400 Body height 154.94 cm DO Nika Brown Work Phone: [facility] 11-30-2023 14:47-0400 Diastolic blood pressure 76 mm[Hg] DO Nika Brown Work Phone: [facility] 11-30-2023 14:47-0400 Heart rate 65 /min DO Nika Brown Work Phone: [facility] 11-30-2023 14:47-0400 Respiratory rate 16 /min DO Nika Brown Work Phone: [facility] 11-30-2023 14:47-0400 SaO2% (BldA) [Mass fraction] 97 % DO Nika Brown Work Phone: [facility] 11-30-2023 14:47-0400 Systolic blood pressure 191 mm[Hg] DO Nika Brown Work Phone: [facility] 11-30-2023 10:13-0400 Body height 154.94 cm DO Nika Brown Work Phone: [facility] 11-30-2023 10:13-0400 Body weight 82.1 kg DO Nika Brown Work Phone: [facility] 11-30-2023 10:12-0400 Body temperature 98.6 [degF] DO Nika Brown Work Phone: [facility] 11-19-2023 11:24-0400 Body height 152.4 cm DO Noble Ball Work Phone: [facility] 11-19-2023 11:24-0400 Body mass index (BMI) [Ratio] 35.9 kg/m2 DO Noble Ball Work Phone: [facility] 11-19-2023 11:24-0400 Body weight 83.51 kg DO Noble Ball Work Phone: [facility] 11-19-2023 11:24-0400 Diastolic blood pressure 76 mm[Hg] DO Noble Ball Work Phone: [facility] 11-19-2023 11:24-0400 Heart rate 67 /min DO Noble Ball Work Phone: [facility] 11-19-2023 11:24-0400 Respiratory rate 12 /min DO Noble Ball Work Phone: [facility] 11-19-2023 11:24-0400 SaO2% (BldA) [Mass fraction] 97 % DO Noble Ball Work Phone: [facility] 11-19-2023 11:24-0400 Systolic blood pressure 142 mm[Hg] DO Noble Ball Work Phone: [facility] 08-28-2023 09:48-0400 Body height 152.4 cm DO Noble Ball Work Phone: [facility] 08-28-2023 09:48-0400 Body mass index (BMI) [Ratio] 35.2 kg/m2 DO Noble Ball Work Phone: [facility] 08-28-2023 09:48-0400 Body weight 81.64 kg DO Noble Ball Work Phone: [facility] 08-28-2023 09:24-0400 Body temperature 96.6 [degF] DO Noble Ball Work Phone: [facility] 08-28-2023 09:24-0400 Diastolic blood pressure 57 mm[Hg] DO Noble Ball Work Phone: [facility] 08-28-2023 09:24-0400 Heart rate 65 /min DO Noble Ball Work Phone: [facility] 08-28-2023 09:24-0400 Respiratory rate 18 /min DO Noble Ball Work Phone: [facility] 08-28-2023 09:24-0400 Systolic blood pressure 161 mm[Hg] DO Noble Ball Work Phone: [facility] 08-10-2023 13:57-0500 Body height 152.4 cm DO Noble Ball Work Phone: [facility] 08-10-2023 13:57-0500 Body mass index (BMI) [Ratio] 35.4 kg/m2 DO Noble Ball Work Phone: [facility] 08-10-2023 13:57-0500 Body weight 82.27 kg DO Noble Ball Work Phone: [facility] 08-10-2023 13:57-0500 Diastolic blood pressure 70 mm[Hg] DO Noble Ball Work Phone: [facility] 08-10-2023 13:57-0500 Heart rate 73 /min DO Noble Ball Work Phone: [facility] 08-10-2023 13:57-0500 Respiratory rate 12 /min DO Noble Ball Work Phone: [facility] 08-10-2023 13:57-0500 Systolic blood pressure 150 mm[Hg] DO Noble Ball Work Phone: [facility] 08-07-2023 09:54-0500 Body height 152.4 cm DO Noble Ball Work Phone: [facility] 08-07-2023 09:54-0500 Body mass index (BMI) [Ratio] 35.2 kg/m2 DO Noble Ball Work Phone: [facility] 08-07-2023 09:54-0500 Body weight 81.64 kg DO Noble Ball Work Phone: [facility] 07-16-2023 11:30-0500 Body height 154.94 cm Noble Ball Other [facility] [employer] Other 07-16-2023 11:30-0500 Body mass index (BMI) [Ratio] 33.74 kg/m2 Noble Ball Other [facility] [employer] Other 07-16-2023 11:30-0500 Body weight 81.01 kg Noble Ball Other [facility] [employer] Other 07-16-2023 11:30-0500 Diastolic blood pressure 72 mm[Hg] Noble Ball Other [facility] [employer] Other 07-16-2023 11:30-0500 Respiratory rate 12 /min Noble Ball Other [facility] [employer] Other 07-16-2023 11:30-0500 Systolic blood pressure 133 mm[Hg] Noble Ball Other [facility] [employer] Other 05-28-2023 14:28-0500 Diastolic blood pressure 63 mm[Hg] DO Noble Ball Work Phone: [facility] 05-28-2023 14:28-0500 Heart rate 58 /min DO Noble Ball Work Phone: [facility] 05-28-2023 14:28-0500 Respiratory rate 16 /min DO Noble Ball Work Phone: [facility] 05-28-2023 14:28-0500 SaO2% (BldA) [Mass fraction] 94 % DO Noble Ball Work Phone: [facility] 05-28-2023 14:28-0500 Systolic blood pressure 116 mm[Hg] DO Noble Ball Work Phone: [facility] 05-28-2023 13:22-0500 Inhaled oxygen flow rate 6 L/min DO Noble Ball Work Phone: [facility] 05-28-2023 13:07-0500 Body temperature 97.4 [degF] DO Noble Ball Work Phone: [facility] 05-28-2023 12:32-0500 Body height 154.94 cm DO Noble Ball Work Phone: [facility] 05-28-2023 12:32-0500 Body mass index (BMI) [Ratio] 33.7 kg/m2 DO Noble Ball Work Phone: [facility] 05-28-2023 12:32-0500 Body weight 81 kg DO Noble Ball Work Phone: [facility] 05-15-2023 09:57-0500 Body height 152.4 cm DO Noble Ball Work Phone: [facility] 05-15-2023 09:57-0500 Body mass index (BMI) [Ratio] 35.2 kg/m2 DO Noble Ball Work Phone: [facility] 05-15-2023 09:57-0500 Body weight 81.64 kg DO Noble Ball Work Phone: [facility] 05-15-2023 09:12-0500 Body temperature 98.1 [degF] DO Noble Ball Work Phone: [facility] 05-15-2023 09:12-0500 Diastolic blood pressure 69 mm[Hg] DO Noble Ball Work Phone: [facility] 05-15-2023 09:12-0500 Heart rate 68 /min DO Noble Ball Work Phone: [facility] 05-15-2023 09:12-0500 Respiratory rate 18 /min DO Noble Ball Work Phone: [facility] 05-15-2023 09:12-0500 Systolic blood pressure 168 mm[Hg] DO Noble Ball Work Phone: [facility] 03-13-2023 14:30-0400 Body height 154.94 cm Noble Ball Other [facility] [employer] Other 03-13-2023 14:30-0400 Body mass index (BMI) [Ratio] 34.01 kg/m2 Noble Ball Other [employer] Other 03-13-2023 14:30-0400 Body weight 81.65 kg Noble Ball Other [employer] Other 03-13-2023 14:30-0400 Diastolic blood pressure 62 mm[Hg] Noble Ball Other [employer] Other 03-13-2023 14:30-0400 Systolic blood pressure 122 mm[Hg] Noble Ball Other [employer] Other 12-25-2022 15:45-0400 Body height 154.94 cm Noble Ball Other [employer] Other 12-25-2022 15:45-0400 Body mass index (BMI) [Ratio] 33.97 kg/m2 Noble Ball Other [employer] Other 12-25-2022 15:45-0400 Body weight 81.56 kg Noble Ball Other [employer] Other 12-25-2022 15:45-0400 Diastolic blood pressure 70 mm[Hg] Noble Ball Other [employer] Other 12-25-2022 15:45-0400 Respiratory rate 12 /min Noble Ball Other [employer] Other 12-25-2022 15:45-0400 Systolic blood pressure 147 mm[Hg] Noble Ball Other [employer] Other 09-27-2022 12:00-0400 Body height 154.94 cm Noble Ball Other [employer] Other 09-27-2022 12:00-0400 Body mass index (BMI) [Ratio] 34.5 kg/m2 Noble Ball Other [employer] Other 09-27-2022 12:00-0400 Body weight 82.83 kg Noble Ball Other [employer] Other 09-27-2022 12:00-0400 Diastolic blood pressure 86 mm[Hg] Noble Ball Other [employer] Other 09-27-2022 12:00-0400 Respiratory rate 12 /min Noble Ball Other [employer] Other 09-27-2022 12:00-0400 Systolic blood pressure 122 mm[Hg] Noble Ball Other [employer] Other 08-17-2022 10:15-0500 Body height 154.94 cm Noble Ball Other [employer] Other 08-17-2022 10:15-0500 Body mass index (BMI) [Ratio] 34.91 kg/m2 Noble Ball Other [employer] Other 08-17-2022 10:15-0500 Body weight 83.83 kg Noble Ball Other [employer] Other 08-17-2022 10:15-0500 Diastolic blood pressure 78 mm[Hg] Noble Ball Other [employer] Other 08-17-2022 10:15-0500 Respiratory rate 12 /min Noble Ball Other [employer] Other 08-17-2022 10:15-0500 Systolic blood pressure 116 mm[Hg] Noble Ball Other [employer] Other 08-10-2022 10:15-0500 Body height 154.94 cm Noble Ball Other [employer] Other 08-10-2022 10:15-0500 Body mass index (BMI) [Ratio] 34.91 kg/m2 Noble Ball Other [employer] Other 08-10-2022 10:15-0500 Body weight 83.83 kg Noble Ball Other [employer] Other 08-10-2022 10:15-0500 Diastolic blood pressure 76 mm[Hg] Noble Ball Other [employer] Other 08-10-2022 10:15-0500 Respiratory rate 12 /min Noble Ball Other [employer] Other 08-10-2022 10:15-0500 Systolic blood pressure 112 mm[Hg] Noble Ball Other [employer] Other 10-19-2021 12:57-0400 Body height 157.5 cm Genny Seguraer PA-C Work Phone: [facility] 10-19-2021 12:57-0400 Body temperature 97.7 [degF] Genny Vianey PA-C Work Phone: [facility] 10-19-2021 12:57-0400 Body weight 83.28 kg Genny Vianey PA-C Work Phone: [facility] 10-19-2021 12:57-0400 Diastolic blood pressure 52 mm[Hg] Genny Vianey PA-C Work Phone: [facility] 10-19-2021 12:57-0400 Heart rate 69 /min Genny Vianey PA-C Work Phone: [facility] 10-19-2021 12:57-0400 Respiratory rate 18 /min Genny Vianey PA-C Work Phone: [facility] 10-19-2021 12:57-0400 SaO2% (BldA) [Mass fraction] 94 % Genny Vianey PA-C Work Phone: [facility] 10-19-2021 12:57-0400 Systolic blood pressure 164 mm[Hg] Genny Vianey PA-C Work Phone: [facility] Encounters Encounter Date Encounter Type Care Provider Facility Start: 03-11-2025 End: 03-11-2025 ambulatory Noble Hayes DO Work Phone: [facility] Work Phone: Start: 03-11-2025 End: 03-11-2025 Patient encounter procedure Noble Hayes DO -[facility] Work Phone: Start: 03-10-2025 End: 03-10-2025 ambulatory NOBLE HAYES Facility:[facility] Start: 03-10-2025 End: 03-10-2025 ambulatory NOBLE HAYES Facility:[facility] Start: 02-23-2025 End: 02-23-2025 ambulatory Noble Hayes DO Work Phone: [facility] Work Phone: Start: 02-23-2025 End: 02-23-2025 Patient encounter procedure Noble Hayes DO -[facility] Work Phone: Start: 02-02-2025 End: 02-02-2025 ambulatory Noble Ball DO Work Phone: [facility] Work Phone: Start: 02-02-2025 End: 02-02-2025 Patient encounter procedure Noble Ball DO -[facility] Work Phone: Start: 01-27-2025 End: 01-27-2025 ambulatory Noble Ball DO Work Phone: [facility] Work Phone: Start: 01-27-2025 End: 01-27-2025 Patient encounter procedure Bobby Junior MD -[facility] Work Phone: Start: 12-31-2024 End: 12-31-2024 ambulatory Noble Ball DO Work Phone: [facility] Work Phone: Start: 12-31-2024 End: 12-31-2024 Patient encounter procedure Noble Ball DO -[facility] Work Phone: Start: 12-29-2024 End: 12-29-2024 ambulatory [facility] Start: 12-01-2024 End: 12-01-2024 Patient encounter procedure Noble Ball DO -[facility] Work Phone: Start: 11-26-2024 End: 11-26-2024 Patient encounter procedure Noble Ball DO -[facility] Work Phone: Start: 11-24-2024 Non-patient / Non-visit Ly Pollock [employer] -[facility] Work Phone: Start: 11-21-2024 Evaluation and manag ement of inpatient [facility] Start: 11-21-[address] [facility] Start: 11-21-2024 End: 11-22-2024 Evaluation and management of inpatient [facility] Start: 11-19-2024 End: 11-19-2024 ambulatory [facility] Work Phone: Start: 11-19-2024 End: 11-19-2024 Patient encounter procedure [facility] Work Phone: Start: 11-14-2024 Non-patient / Non-visit [facility] Work Phone: Start: 10-29-2024 End: 10-29-2024 Patient encounter procedure [facility] Work Phone: Start: 10-09-2024 Non-patient / Non-visit [facility] Work Phone: Start: 10-06-2024 End: 10-06-2024 ambulatory [facility] Work Phone: Start: 10-06-2024 End: 10-06-2024 Patient encounter procedure [facility] Work Phone: Start: 10-06-2024 Non-patient / Non-visit [facility] Work Phone: Start: 10-04-2024 Non-patient / Non-visit [facility] Work Phone: Start: 09-29-2024 End: 09-29-2024 ambulatory [facility] Work Phone: Start: 09-29-2024 End: 09-29-2024 Patient encounter procedure [facility] Work Phone: Start: 09-26-2024 End: 09-26-2024 ambulatory [facility] Start: 08-27-2024 End: 08-27-2024 ambulatory [facility] Work Phone: Start: 08-27-2024 End: 08-27-2024 Patient encounter procedure [facility] Work Phone: Start: 08-22-2024 End: 08-22-2024 ambulatory [facility] Work Phone: Start: 08-22-2024 End: 08-22-2024 Patient encounter procedure [facility] Work Phone: Start: 07-28-2024 End: 07-28-2024 ambulatory [facility] Work Phone: Start: 07-28-2024 End: 07-28-2024 Patient encounter procedure [facility] Work Phone: Start: 07-21-2024 End: 07-21-2024 ambulatory [facility] Start: 06-23-2024 End: 06-23-2024 ambulatory [facility] Work Phone: Start: 06-23-2024 End: 06-23-2024 Patient encounter procedure [facility] Work Phone: Start: 05-30-2024 Non-patient / Non-visit [facility] Work Phone: Start: 05-27-2024 End: 05-27-2024 Patient encounter procedure [facility] Work Phone: Start: 05-25-[address] [facility] Start: 05-21-2024 End: 05-21-2024 Patient encounter procedure [facility] Work Phone: Start: 04-21-2024 End: 04-21-2024 ambulatory [facility] Work Phone: Start: 04-21-2024 End: 04-21-2024 Patient encounter procedure [facility] Work Phone: Start: 03-19-2024 End: 03-19-2024 ambulatory [facility] Work Phone: Start: 03-19-2024 End: 03-19-2024 Patient encounter procedure [facility] Work Phone: Start: 03-19-2024 End: 03-19-2024 ambulatory [facility] Start: 02-26-2024 Non-patient / Non-visit [facility] Work Phone: Start: 02-25-2024 Non-patient / Non-visit [facility] Work Phone: Start: 02-19-2024 End: 02-19-2024 ambulatory DO Nika Fagan Work Phone: [facility] Work Phone: Start: 02-19-2024 End: 02-19-2024 Patient encounter procedure DO Nika Fagan Work Phone: [facility] Work Phone: Start: 02-15-2024 End: 02-15-2024 ambulatory DO Nika Fagan Work Phone: [facility] Work Phone: Start: 02-15-2024 End: 02-15-2024 Patient encounter procedure DO Nika Fagan Work Phone: [facility] Work Phone: Start: 01-24-2024 Non-patient / Non-visit DO Paulina mcleanndra Fagan Work Phone: [facility] Work Phone: Start: 01-17-2024 Non-patient / Non-visit DO Paulina Fagan Work Phone: [facility] Work Phone: Start: 01-14-2024 End: 01-14-2024 ambulatory DO Nika Fagan Work Phone: [facility] Work Phone: Start: 01-14-2024 End: 01-14-2024 Patient encounter procedure DO Nika Fagan Work Phone: [facility] Work Phone: Start: 12-10-2023 End: 12-10-2023 ambulatory DO Nika Fagan Work Phone: [facility] Work Phone: Start: 12-10-2023 End: 12-10-2023 Patient encounter procedure DO Nika Fagan Work Phone: [facility] Work Phone: Start: 12-07-2023 End: 12-07-2023 ambulatory DO Nika Fagan Work Phone: [facility] Work Phone: Start: 12-07-2023 End: 12-07-2023 Patient encounter procedure DO Nika Fagan Work Phone: [facility] Work Phone: Start: 12-03-2023 Non-patient / Non-visit DO Paulina Fagan Work Phone: [facility] Work Phone: Start: 11-30-2023 End: 12-01-2023 Evaluation and management of inpatient DO Nika Fagan Work Phone: [facility] Work Phone: Start: 11-30-2023 End: 12-01-2023 observation encounter DO Nika Fagan Work Phone: [facility] Work Phone: Start: 11-30-2023 End: 12-01-2023 ambulatory Jim Clay Facility:[facility] Start: 11-20-2023 Non-patient / Non-visit DO Paulina Fagan Work Phone: [facility] Work Phone: Start: 11-19-2023 End: 11-19-2023 ambulatory DO Noble Ball Work Phone: [facility] Work Phone: Start: 11-19-2023 End: 11-19-2023 Patient encounter procedure DO Noble Ball Work Phone: [facility] Work Phone: Start: 11-08-2023 End: 11-08-2023 ambulatory DO Noble Ball Work Phone: [facility] Work Phone: Start: 11-08-2023 End: 11-08-2023 Patient encounter procedure DO Noble Ball Work Phone: [facility] Work Phone: Start: 10-08-2023 End: 10-08-2023 ambulatory DO Noble Ball Work Phone: [facility] Work Phone: Start: 10-08-2023 End: 10-08-2023 Patient encounter procedure DO Noble Ball Work Phone: [facility] Work Phone: Start: 09-06-2023 End: 09-06-2023 ambulatory DO Noble Ball Work Phone: [facility] Work Phone: Start: 09-06-2023 End: 09-06-2023 Patient encounter procedure DO Noble Ball Work Phone: [facility] Work Phone: Start: 08-28-2023 End: 08-28-2023 ambulatory DO Noble Ball Work Phone: [facility] [place] Work Phone: Start: 08-28-2023 End: 08-28-2023 Discharged Recurring DO Noble Ball Work Phone: [facility] [place] Work Phone: Start: 08-10-2023 End: 08-10-2023 Patient encounter procedure DO Noble Hayes Work Phone: [facility] Work Phone: Start: 08-06-2023 End: 08-06-2023 Patient encounter procedure DO Noble Hayes Work Phone: [facility] Work Phone: Start: 08-06-2023 Non-patient / Non-visit DO Prasanna Hayes Work Phone: [facility] [employer] Work Phone: Start: 07-16-2023 End: 07-16-2023 ambulatory Noble Hayes Other [employer] Other Start: 07-16-2023 Office outpatient vi sit 25 minutes Noble Hayes [facility] Start: 07-13-2023 End: 07-13-2023 ambulatory Noble Hayes Other [employer] Other Start: 07-13-2023 Telephone encounter Noble Hayes [facility] Start: 07-04-2023 End: 07-04-2023 ambulatory Noble Hayes Other [employer] Other Start: 07-04-2023 Nursing evaluation o f patient and report Noble Hayes [facility] Start: 05-30-2023 End: 05-30-2023 ambulatory Noble Hayes Other [employer] Other Start: 05-30-2023 Nursing evaluation o f patient and report Noble Hayes [facility] Start: 05-28-2023 Telephone encounter Noble Hayes [facility] Start: 05-28-2023 End: 05-28-2023 Admission to same day surgery center DO Noble Hayes Work Phone: [facility] Start: 05-28-2023 End: 05-28-2023 ambulatory DO Noble Hayes Work Phone: [facility] Work Phone: Start: 05-17-2023 End: 05-17-2023 Patient encounter procedure DO Noble Hayes Work Phone: [facility] [place]Pre[facility]Surgical [facility] Work Phone: Start: 05-17-2023 End: 05-17-2023 ambulatory DO Noble Hayes Work Phone: [facility] Work Phone: Start: 05-15-2023 Registered Recurring DO Rajni in [facility] Work Phone: [facility] [facility] Work Phone: Start: 04-26-2023 End: 04-26-2023 ambulatory Gayle Wade Other [facility] (app) Other Start: 04-26-2023 Nursing evaluation o f patient and report Gayle Wade [facility] Start: 04-10-2023 End: 04-10-2023 ambulatory Noble Hayes Other [facility] (app) Other Start: 04-10-2023 Telephone encounter Noble Hayes [facility] Start: 03-13-2023 End: 03-13-2023 ambulatory Noble Ball Other [facility] (app) Other Start: 03-13-2023 Patient encounter procedure Noble Hayes [facility] Start: 02-15-2023 End: 02-15-2023 ambulatory Noble Ball Other [facility] ([facility]) Other Start: 02-15-2023 Nursing evaluation o f patient and report Noble Hayes [facility] Start: 01-26-2023 End: 01-26-2023 ambulatory Noble Ball Other [facility] ([facility]) Other Start: 01-26-2023 Telephone encounter Noble Ball [facility] Start: 01-21-2023 End: 01-21-2023 ambulatory Noble Ball Other [facility]) Other Start: 01-21-2023 Telephone encounter Noble Ball [facility] Start: 01-17-2023 End: 01-17-2023 ambulatory Noble Ball Other [facility]) Other Start: 01-17-2023 Telephone encounter Noble Ball [facility] Start: 01-15-2023 End: 01-15-2023 ambulatory Noble Ball Other [facility] ([facility]) Other Start: 01-15-2023 Nursing evaluation o f patient and report Noble Ball [facility] Start: 01-02-2023 End: 01-02-2023 ambulatory Nbole Ball Other [facility] ([facility]) Other Start: 01-02-2023 Telephone encounter Noble Ball [facility] Start: 12-27-2022 End: 12-27-2022 ambulatory Noble Ball Other [facility]) Other Start: 12-27-2022 Telephone encounter Noble Ball [facility] Start: 12-26-2022 End: 12-26-2022 ambulatory Noble Ball Other [facility]) Other Start: 12-26-2022 Telephone encounter Noble Ball [facility] Start: 12-25-2022 End: 12-25-2022 ambulatory Noble Ball Other [facility]) Other Start: 12-25-2022 Office outpatient vi sit 25 minutes Noble Ball [facility] Start: 12-14-2022 End: 12-14-2022 ambulatory Noble Ball Other [facility] ([facility]) Other Start: 12-14-2022 Nursing evaluation o f patient and report Noble Ball [facility] Start: 11-13-2022 End: 11-13-2022 ambulatory Noble Abigail Other [facility] ([facility]) Other Start: 11-13-2022 Nursing evaluation o f patient and report Noble Hayes [facility] Start: 11-09-2022 ambulatory RITU TAMLYN . [...] o f patient and report Noble Hayes [facility] Start: 10-12-2022 End: 10-13-2022 ambulatory RITU TAMLYN . [facility]) Other Start: 09-27-2022 End: 09-27-2022 ambulatory Noble Hayes Other [facility]) Other Start: 09-27-2022 Office outpatient vi sit 25 minutes Noble Hayes [facility] Start: 09-12-2022 End: 09-12-2022 ambulatory Noble Abigail Other [facility] ([facility]) Other Start: 09-12-2022 Nursing evaluation o f patient and report Noble Hayes [facility] Start: 08-23-2022 End: 08-23-2022 ambulatory Noble Hayes Other [facility] ([facility]) Other Start: 08-23-2022 Telephone encounter Noble TALAVERA [facility] Start: 08-22-2022 ambulatory Checo RODRIGEZ Facility : [facility] Start: 08-17-2022 End: 08-18-[address] NOBLE HAYES [facility] ([facility]) Other Start: 08-17-2022 Office outpatient vi sit 15 minutes Noble Hayes [facility] Start: 08-17-2022 Telephone encounter Noble TALAVERA [facility] Start: 08-10-2022 End: 08-10-2022 ambulatory Noble Hayes Other [facility] ([facility]) Other Start: 08-10-2022 Office outpatient vi sit 15 minutes Noble Hayes [facility] Start: 07-11-2022 End: 07-11-2022 ambulatory Gayle Wade Other [facility] ([facility]) Other Start: 07-11-2022 Nursing evaluation o f patient and report Gayle Wade [facility] Start: 01-26-2022 End: 01-27-[address] NOBLE HAYES Facility: Start: 01-24-2022 Adult health examination Solomontrung Hayes Other [facility] ([facility]) Other Start: 10-19-2021 End: 10-19-2021 ambulatory Genny Winters PA-C Work Phone: Hematology/Oncology Comment on above: Encounter for screen ing mammogram for malignant neoplasm of breast (Primary Dx) Start: 10-19-2021 End: 10-19-2021 Patient encounter procedure Genny Winters PA-C Work Phone: [facility] Start: 09-22-2021 Telephone encounter Stephen jimenes MD Work Phone: Hematology/Oncology Comment on above: Orders Start: 05-20-2019 Preoperative cardiovascular examination Noble Hayes Other [facility]) Other Start: 09-03-2018 End: 09-04-2018 Patient encounter procedure PROVIDER UNKNOWN Facility:[facility] Start: 08-08-2018 End: 08-09-2018 Patient encounter procedure DEFAULT PHYSICIAN Facility:[facility] Procedures Date Procedure Procedure Detail Performing Clinician Start: 02-23-2025 CT chest wo con Olivia Hayes DO Work Phone: Start: 11-30-2023 Duplex scan of lower limb veins DO Nika [employer] Phone: Start: 11-30-2023 CT angiography of thorax DO Nika Brown Work Phone: Start: 11-30-2023 Plain chest X-ray DO Al janna [employer] Phone: Start: 05-28-2023 Debridement DO Olivia Hayes Work Phone: Start: 10-05-2018 Screening mammography B enaida Hayes Other Start: 01-05-2016 Pre-surgery evaluation Noble Abigail Other Start: 01-05-2016 Preoperative cardiov ascular examination Noble Hayes Other Depression screening Olivia Hayes Other Plan of Treatment Date Care Activity Detail Author Start: 12-01-2023 End: 12-01-2023 [facility] Start: 11-30-2023 Duplex scan of lower limb veins US venous duplex LE BI [facility] Start: 11-30-2023 US Lower extremity v ein - bilateral [facility] Start: 11-30-2023 End: 11-30-2023 [facility] Start: 11-30-2023 Hospital admission [facility] Start: 05-28-2023 Aerobic Culture Aerobic Culture [facility] Start: 05-28-2023 Anaerobic Culture Anaerobic Culture [facility] Start: 05-28-2023 Microscopic observat ion [Identifier] in Unspecified specimen by Gram stain [facility] Start: 05-28-2023 End: 05-28-2023 [facility] Start: 04-14-2022 DIABETES SCREEN DIABETES SCREEN [facility] Start: 02-09-2022 Influenza vaccination INFLUENZ A (Season Ended) [facility] Start: 07-07-2021 COVID-19 VACCINE (4 - Booster for Pfizer series) COVID-19 VACCINE (4 - Booster for Pfizer series) [facility] Start: 06-11-2021 ADVANCE DIRECTIVE DISCUSSION ADVANCE DIRECTIVE DISCUSSION [facility] Start: 2003 BONE DENSITY BONE DENSITY [facility] Start: 2003 PNEUMOVAX AGE 65 AND OVER WITH 5YR LOOKBACK (#1) PNEUMOVAX AGE 65 AND OVER WITH 5YR LOOKBACK (#1) [facility] Start: 1988 SHINGRIX VACCINE (1 of 2) SHINGRIX VACCINE (1 of 2) [facility] Start: 1957 SHINGRIX VACCINE (1 of 2) SHINGRIX VACCINE (1 of 2) [facility] Start: 1957 Urine microalbumin profile DTAP,TDAP,TD (1 - Tdap) [facility] Start: 1944 PNEUMOCOCCAL: 65+ (1 - PCV) PNEUMOCOCCAL: 65+ (1 - PCV) [facility] Bacteria identified in Unspecified specimen by Aerobe culture [facility] Bacteria identified in Unspecified specimen by Anaerobe culture [facility] Comprehensive metabo lic 2000 panel - Serum or Plasma [facility] CT Chest WO contrast [facility] Patient Education [facility] Work Phone: Patient referral [facility] Work Phone: End: 11-18-2022 Screening mammography bi 2-view breast inc cad KAREN SCREENING Radiology Routine Encounter for screening mammogram for malignant neoplasm of breast 1 Occurrences starting 10/19/2021 until 11/18/2022 [facility] Work Phone: Comment on above: 1 Occurrences starti ng 10/19/2021 until 11/18/2022 XR Pelvis and Hip - bilateral Views [facility] Immunizations Immunization Date Immunization Notes Care Provider Sukhwinder plata 02-23-2025 influenza, high dose seasonal, preservative-free Noble Hayes DO Work Phone: [facility] 02-19-2024 influenza, high dose seasonal, preservative-free DO Nika Fagan Work Phone: [facility] 03-26-2023 influenza virus vaccine, unspecified formulation DO Noble Hayes Work Phone: [facility] 03-26-2023 influenza, high dose seasonal, preservative-free Noble Hayes Other [facility] [employer] Other 03-06-2022 influenza virus vaccine, split virus (incl. purified surface antigen) Noble Hayes Other [facility] [employer] Other 03-06-2022 influenza virus vaccine, unspecified formulation DO Noble Hayes Work Phone: [facility] 03-07-2021 COVID-19 vaccine, ag e 12+ yr (PFIZER-BIONTECH - PURPLE TOP) Genny Winters PA-C Work Phone: [facility] 03-01-2021 influenza virus vaccine, split virus (incl. purified surface antigen) Noble Hayes Other [employer] [facility] [employer] Other 03-01-2021 influenza virus vaccine, unspecified formulation DO Noble Hayes Work Phone: [facility] 09-07-2020 COVID-19 vaccine, ag e 12+ yr (PFIZER-BIONTECH - PURPLE TOP) Genny CAMPOS-Adrianne Work Phone: [facility] 08-16-2020 COVID-19 vaccine, ag e 12+ yr (PFIZER-BIONTECH - PURPLE TOP) Genny CAMPOS-C Work Phone: [facility] 03-01-2020 influenza virus vaccine, split virus (incl. purified surface antigen) Noble Abigail Other [facility] [employer] Other 03-01-2020 influenza virus vaccine, unspecified formulation DO Noble Hayes Work Phone: [facility] 03-18-2019 influenza virus vaccine, split virus (incl. purified surface antigen) Noble Hayes Other [facility] [employer] Other 03-18-2019 influenza virus vaccine, unspecified formulation DO Noble Hayes Work Phone: [facility] 03-11-2018 influenza virus vaccine, split virus (incl. purified surface antigen) Noble Hayes Other [facility] [employer] Other 03-11-2018 influenza virus vaccine, unspecified formulation DO Noble Hayes Work Phone: [facility] 03-11-2018 Seasonal trivalent influenza vaccine, adjuvanted, preservative free Genny Vianey PA-C Work Phone: [facility] 03-27-2017 influenza virus vaccine, split virus (incl. purified surface antigen) Noble Hayes Other [facility] [employer] Other 03-27-2017 influenza virus vaccine, unspecified formulation DO Noble Hayes Work Phone: [facility] 03-27-2017 influenza, high dose seasonal, preservative-free Genny Vianey PA-C Work Phone: [facility] 03-21-2016 influenza virus vaccine, split virus (incl. purified surface antigen) Noble Hayes Other [facility] [employer] Other 03-21-2016 influenza virus vaccine, unspecified formulation DO Noble Hayes Work Phone: [facility] 03-21-2016 influenza, high dose seasonal, preservative-free Genny Vianey PA-C Work Phone: [facility] 03-24-2015 influenza virus vaccine, split virus (incl. purified surface antigen) Noble Hayes Other [facility] [employer] Other 03-24-2015 influenza virus vaccine, unspecified formulation DO Noble Hayes Work Phone: [facility] 03-24-2015 pneumococcal conjuga te vaccine, 13 valent Noble Hayes Other [facility] 03-24-2015 pneumococcal Conjuga te, unspecified formulation; Translations: [Need for prophylactic vaccination against Streptococcus pneumoniae (pneumococcus)] Noble Hayes Other [employer] Other 04-22-2013 tetanus and diphther ia toxoids, adsorbed, preservative free, for adult use (5 Lf of tetanus toxoid and 2 Lf of diphtheria toxoid) Noble Hayes Other [facility] 04-28-2009 pneumococcal polysaccharide vaccine, 23 valent Noble Hayes Other [facility] Payers Date Payer Category Payer Self-pay [id number] 2014 Private Health Insurance [facility] AARP SUPPLEMENT [id number] 2014-Present [phone] [address] [place] [address] Indemnity [id number] 1996 Medicare MEDICARE MEDICAR E A AND B [id number] 1996-Present [phone] [address] [address] [place] [address] Medicare [id number] 1959 Medicare [id number] 1959 Unknown [id number] 1938 Unknown [id number] [id number] .647 1938 Unknown [id number] 2.16.840.1.231181.3.579.2 .647 1938 Unknown [id number] 2.16.840.1.595071.3.579.2 .727 1938 Unknown [id number] 2.16.840.1.144623.3.579.2 .593 1938 Unknown [id number] 2.16.840.1.378880.3.579.2 .593 1938 Unknown [id number] 2.16.840.1.452557.3.579.2 .593 1938 Unknown [id number] 2.16.840.1.342273.3.579.2 .593 1938 Unknown [id number] 2.16.840.1.051166.3.579.2 .593 1938 Unknown [id number] 2.16.840.1.112116.3.579.2 .593 1938 Unknown [id number] 2.16.840.1.732698.3.579.2 .593 1938 Unknown [id number] 2.16.840.1.321894.3.579.2 .593 1938 Unknown [id number] 2.16.840.1.113686.3.579.2 .593 1938 Unknown [id number] 2.16.840.1.969475.3.579.2 .593 1938 Unknown [id number] 2.16.840.1.191813.3.579.2 .593 1938 Unknown [id number] 2.16.840.1.130931.3.579.2 .593 1938 Unknown [id number] 2.16.840.1.951919.3.579.2 .593 Unknown Unknown [id number] 2.16.840.1.691607.3.579.2 .531 Unknown [id number] 2.16.840.1.842957.3.579.2 .531 Unknown [id number] 2.16.840.1.881322.3.579.2 .531 Unknown [id number] 2.16.840.1.453430.3.579.2 .531 Social History Date Type Detail Facility Start: 11-12-2014 End: 11-30-2023 Tobacco smoking status NHIS Ex-smoker [facility] History of tobacco use Cigarette Smoker C [facility] Start: 11-12-2014 Cigarettes smoked current (pack per day) - Reported 1 [facility] Start: 11-12-2014 Tobacco use and exposure Smokeless tobacco non-user [facility] Start: 10-19-2020 End: 10-19-2021 Alcohol intake Current non-drinker of alcohol (finding) [facility] Start: 1940 Sex Assigned At Not on file C [facility] Start: 10-09-2021 End: 10-19-2021 Exposure to SARS-CoV-2 (event) Not sure [facility] End: 11-10-2007 Sex Assigned At [facility] [employer] Other Start: 1940 Sex Assigned At Female F [facility] Start: 04-21-2024 End: 11-19-2024 Sex Female (finding) [facility] Goals Date Patient Goal Desired Activity /State Functional Status Date Assessment Result Facility 12-01-2023 Functional status Patient at [facility] Work Phone: 11-30-2023 Functional status Patient at [facility] Work Phone: Mental Status Date Assessment Result Facility 12-01-2023 Cognitive function Cognitive Sta tus Patient at Baseline [facility] [place] Work Phone: 11-30-2023 Cognitive function Cognitive Sta tus Patient at Baseline [facility] [place] Work Phone: Clinical Notes 09-22-2021 to 03-10-2025 Note Date & Type Note Facility 03-10-2025 Note HNO ID: [id number] Author: DAINA MONTELONGO MD Service: ? Author Type: Physician Type: Progress Notes Filed: 03/10/2025 13:58 Note Text: NEW PATIENT OFFICE VISIT Nora Gibbs is a 84 year old female who presents for evaluation of shortness of breath. Nora reports dyspnea with minimal exertion, such as pushing a vacuum fish cleaner a few times, necessitating rest. This has been ongoing for years but has progressively worsened. She reports being mostly sedentary during the day. She denies cough or sputum production, but endorses wheezing. She experiences sneezing spells in the morning, but denies known allergies or daytime sinus or allergy symptoms. She denies dizziness, lightheadedness, or chest pain associated with dyspnea. She notes occasional LE edema. Nora was diagnosed with COPD and has been on Trelegy since 2018, which she takes daily without noticing improvement. She also uses albuterol as needed, particularly after activities like shopping, which provides relief. Nora finds Trelegy expensive, paying $139 after a $400 deductible. She denies any episodes of COPD exacerbations. She has a history of recurrent pneumonia and bronchitis while smoking, but has not had these issues since quitting. She was hospitalized for pneumonia a couple of years ago, but has had no episodes since. Nora has a significant smoking history, having smoked approximately 1 pack per day for over 50 years before quitting 17 years ago. Nora has a history of coronary artery disease. She had a stent placed several years ago and then another stent placed this November. She has not noticed any change in dyspnea since the stent was placed. She tried to participate in cardiac rehab but this was limited due to knee issues. She has received injections on 01/27 for this and was referred to physical therapy but not yet started the PT. Nora has no pets and denies exposure to birds, farm animals, water damage, mold, or regular use of a hot tub. She has a history of radiation therapy for breast cancer in 2016. She denies family history of lung issues, but her and son of lung cancer. PMH, FAMH, SOCIAL History AND Allergies were verified and updated, and medications were reconciled with the patient at this visit. PAST MEDICAL HISTORY Diagnosis Date Arthritis Breast cancer (HCC) Right; T2N0M0; ER/PA+ HER2 COPD (chronic obstructive pulmonary disease) (HCC) Hypertension Hypothyroidism : PAST SURGICAL HISTORY Procedure Laterality Date ARTHRP KNE CONDYLEANDPLATU MEDIALANDLAT COMPARTMENTS BREAST BIOPSY CARPAL TUNNEL COLOSTOMY/SKIN LEVEL CECOSTOMY EXCISION MAL LESION TRUNK/ARM/LEG 2.1-3.0 CM 10/14/2019 MASTECTOMY PARTIAL PRQ CARDIAC STENT W/ANGIO 1 VSL SENT LYMPH NODE BIOPSY STENT PLACEMENT : History reviewed. No pertinent family history.: SOCIAL HISTORY[1] Allergies: ALLERGIES Allergen Reactions Penicillins Unknown Sulfa (Sulfonamide * Unknown Current Medications: Current Outpatient Medications Medication Sig Dispense Refill clopidogrel (PLAVIX) 75 mg tablet take 1 tablet (75 mg) by mouth in the morning. pantoprazole DR (PROTONIX) 20 mg tablet TAKE 1 TABLET (20 MG) BY MOUTH BEFORE BREAKFAST. DO NOT CRUSH, CHEW, OR SPLIT. metoprolol succinate ER (TOPROL XL) 25 mg 24 hr tablet TAKE 1/2 TABLET BY MOUTH DAILY DIRECTED levothyroxine (SYNTHROID) 88 mcg tablet Take 88 mcg by mouth daily before breakfast. cyanocobalamin (VITAMIN B-12) 100 mcg tab Take 100 mcg by mouth. ascorbic acid/vitamin E/biotin (HAIR, SKIN, NAILS WITH BIOTIN PO) Take by mouth. CALCIUM ORAL Take 1,200 mg by mouth once daily. isosorbide mononitrate ER (IMDUR) 60 mg 24 hr tablet Take 60 mg by mouth once daily. (Patient taking differently: Take 90 mg by mouth once daily.) temazepam (RESTORIL) 30 mg cap Take 30 mg by mouth daily at bedtime. inulin (FIBER GUMMIES ORAL) Take by mouth. acetaminophen (TYLENOL EXTRA STRENGTH) 500 mg tablet Take 500 mg by mouth every 6 hours as needed. albuterol HFA (VENTOLIN HFA) 90 mcg/actuation inhaler Ventolin HFA 90 mcg/actuation aerosol inhaler aspirin, enteric coated (ASPIRIN, ENTERIC COATED) 81 mg EC tablet Take 81 mg by mouth q 24 HR. atorvastatin (LIPITOR) 40 mg tablet Take 40 mg by mouth once daily. lisinopril (ZESTRIL, PRINIVIL) 20 mg tablet Take 20 mg by mouth once daily. glycopyrrolate-formoterol (BEVESPI AEROSPHERE) 9-4.8 mcg Inhale 2 puffs as instructed two times a day. 1 each 11 ketoconazole (NIZORAL) 2 % shampoo APPLY WASH TO SCALP EVERY OTHER DAY. LET SIT FOR 5 MINUTES BEFORE RINSING. (Patient not taking: APPLY WASH TO SCALP EVERY OTHER DAY. LET SIT FOR 5 MINUTES BEFORE RINSING.) fluocinonide (LIDEX) 0.05 % external solution APPLY TO SCALP NEEDED FOR ITCHINESS (Patient not taking: APPLY TO SCALP NEEDED FOR ITCHINESS) amLODIPine (NORVASC) 10 mg tablet Take 10 mg by mouth once daily. No current facility-administered medication (more content not included)... [facility] 03-10-2025 Note HNO ID: [id number] Author: DOUG TOBAR RT(R) Service: ? Author Type: Technologist Type: Progress Notes Filed: 03/10/2025 11:23 Note Text: Radiology Service Progress Note PATIENT NAME: Nora Gibbs DATE OF SERVICE: March 10, 2025 TIME: 11:22 AM PATIENT IDENTITY VERIFICATION COMPLETED USING TWO (2) IDENTIFIERS: Name and Date of confirmed by patient verbally. FALL SCREENING: Has the patient had 2 falls in the last year or 1 fall with injury or currently using an Ambulatory Assistive Device (Walker, Cane, Wheelchair, Crutches, etc.)? No PATIENT GENDER DATA: Assigned female at . status: : No status: NO. PATIENT RELEVANT IMPLANT DATA REVIEWED: Not Applicable PATIENT PRESENTS WITH AN IMPLANTABLE OR ATTACHED LOADING AND UNLOADING SUPERVISOR: No RADIOLOGY DEPARTMENT: General X-ray: Exam(s) Completed: Chest X-Ray PERIPHERAL IV DATA: Not applicable SIGNED BY: RT Kat(R) March 10, 2025 11:22 AM [facility] 01-27-2025 Evaluation note Diagnosis Onset Date Resolution Greater trochanteric bursitis of left hip acute January 9:48am Greater trochanteric bursitis of right hip acute January 9:48am (HFpEF) heart failure with preserved ejection fraction acute February 23, 2025 1:21pm ASHD (arteriosclerotic heart disease) acute February 23, 2025 1:21pm Chronic bronchitis acute brandi 2024 1:21pm Chronic kidney disease acute Se ptember 2024 1:21pm History of breast cancer acute February 23, 2025 1:21pm Hypertension acute February 232024 1:21pm Hypothyroidism acute February 23, 2025 1:21pm Nicotine dependence, cigarettes, in remission acute Septemb er 2024 1:21pm Obesity acute February 1:21pm [facility] Work Phone: 1(998) 245-320907-21-2025 NoteUT Cardiology - [facility] Subjective Nora Gibbs is a 84 [...] failure (CMS/HCC) Shortness of breath CAD in [place] artery Family History Problem Relation Name Age [...] was admitted to the emergency room at [facility] with chest pain, And shortness of [...] and leg swelling. Muscul (more content not included)...[facility] 11-26-2024 Evaluation note* Diagnosis Onset Date Resolution Status [...] failure with preserved ejection fraction acute Feb 1:21pm ASHD (arteriosclerotic heart disease) acute February 23, 2025 1:21pm Chronic bronchitis acute 2024 1:21pm Chronic kidney disease acute Se ptember 2024 1:21pm History of breast cancer acute February 23, 2025 1:21pm Hypertension acute February 232024 1:21pm Hypothyroidism acute February 23, 2025 1:21pm Nicotine dependence, cigarettes, in remission acute 2024 1:21pm Obesity acute February 1:21pm [facility] Work Phone: 1(851) 250-644006-14-2025 [facility] NoteHospital Medicine Discharge Summary Final Discharge Diagnosis: Coronary artery disease s/p drug-eluting stent to mid circumflex, previous PCI to RCA COPD, not in exacerbation History of breast cancer Hypothyroidism Chronic heart failure with preserved ejection fraction, NYHA class I Admission Diagnosis: Coronary artery disease involving [place] coronary artery of [place] heart with other form of angina pectoris [I25.118] Chronic diastolic congestive heart failure (CMS/HCC) [I50.32] Shortness of breath [R06.02] CAD in [place] artery [I25.10] Hospital course: Nora Gibbs is [...] Cath Consultations During Admission: Cardiology Dear DO Hayes Betty is advised to follow up with you [...] oral liquid Commonly known as: Vitamin B-12 ovdyqhqvrmh-ugkdtrurs-igewxskk 200-62.5-25 mcg blister with device Commonly known [...] medications were sent to [facility] - [place], [place] - [address] [place], [place] [address] [place] [address] [place] [address], [facility] [address] clopidogrel 75 mg tablet doxazosin 4 mg [...] 55, temperature 36.3 ???C (more content not included)...[place] [address]-14-2025 NoteUTP CARDIOLOGY INPATIENT PROGRESS NOTE Reason for [...] and ongoing ASA for life. A 5 [employer] program management manager device was used to manage the right [...] -- -- 56 15 -- -- -- 11/21/242131 140/62 -- -- 56 16 92 % -- -- 11/21/24 2100 (!) 148/44 -- -- 56 16 94 % -- -- 11/21/242031 -- -- -- -- -- -- 1.549 m (5' 1 ) -- 11/21/242029 144/63 -- -- 57 22 9 (more content not included)...[facility]06-14-2025 NoteCase was discussed with the FER on 11/21/2024. I agree with the history, physical, assessment, and plan of care. I discussed the findings and therapeutic plan. I agree with the documentation, except for any updates below. Bianca Pierre MDUnOhioHealth [facility]06-14-2025 NoteNot in exacerbationUnOhioHealth [facility] Hospital06-14-2025 Note- Not in exacerbation, continue home inhalersUnOhioHealth [facility] Hospital 11-22-2024 NoteContinue SynthroidUnOhioHealth Dublin [facility] Hospital06-14-2025 Note- Severe 80% stenosis in the mid circumflex reduced to 0% by a Synergy XD drug-eluting stent -Previous stent to the RCA - DAPT for 12 months, then aspirin 81 mg daily for life. Statin therapy for life. -Follow-up A1c and lipidsUnOhioHealth Dublin Methodist Hospital06-14-2025 Note Hospital Medicine History and Physical 11/22/2024 1:13 AM THE HOSPITALIST TEAM PREFERS TO USE [employer] FOR NON-URGENT COMMUNICATION 7AM-7PM. IF I DO NOT RESPOND WITHIN 20 MINUTES OR URGENT MATTERS, PLEASE CALL THROUGH THE ENSEMBLE MEMBER. FROM 7PM-7AM, PLEASE PAGE [phone](COVR). Chief Complaint No chief complaint on file. [...] and Plan Assessment & Plan CAD in [place] artery - Severe 80% stenosis in the mid circumflex reduced to 0% by a Synergy XD drug-eluting stent -Previous stent to the RCA - DAPT for 12 months, then aspirin 81 mg daily for life. Statin therapy for life. -Follow-up A1c and lipids Chronic obstructive lung disease ([facility]) - Not in exacerbation, continue home inhalers History of breast cancer Hypothyroidism Continue Synthroid Chronic diastolic congestive heart failure ([facility]) Not in exacerbation VTE Prophylaxis: Subcutaneous heparin [...] this hospital stay by a member of [facility] Hospital Medicine. Past Medical History Medical History[1] [...] quittin.4 Smokeless tobacco: Neve (more content not included)...[facility]06-13-2025 NotePatient: Nora Gibbs Procedure Information Date/Time: 11/21/24 1330 Procedures: Coronary angiography - NPCR Right heart cath Location: [facility] 3 / [facility] (Cath) Providers: Bala Zepeda MD Clinical information reviewed: Allergies Meds Physical Exam Airway Mallampati: III TM distance: >3 FB Cardiovascular Dental Pulmonary Neurological Abdominal Anesthesia Plan ASA 3 other (Moderate sedation ) Additional Equipment RequestsSelect [facility] [place]2025 Evaluation note* Diagnosis Onset Date Resolution Status [...] of right hip acute January 27 9:48am [facility] Work Phone: 1(310) 917-659204-28-2025 Evaluation note* Diagnosis Onset Date Resolution Status [...] acute November 092024 11:12am Hypertension acute November 26 025 11:12am Nicotine dependence, cigarettes, in remission acute November 262024 11:12am Obesity acute November 26 11:12am [facility] Work Phone: 1(209) 951-610204-18-2025 NoteUT Cardiology - [facility] Subjective Nora Gibbs is a 84 [...] was admitted to the emergency room at [facility] with chest pain, And shortness of [...] m (5' 1 ) (more content not included)...[facility]03-14-2025 Evaluation note* Diagnosis Onset Date Resolution Status [...] disease acut e August 22, 2024 11:22am [facility] Work Phone: 1(457) 477-430203-14-2025 Evaluation note* Diagnosis Onset Date Resolution Status [...] chroni c obstructive airways disease noneactive Apri 2024 1:19pm (HFpEF) heart failure with preserved ejection fraction acute November 19, 2024 1:43pm ASHD (arteriosclerotic heart disease) acute November 19, 2024 1:43pm Chronic bronchitis acute November 092024 1:43pm Hypertension acute November 19, 2 025 1:43pm Hypothyroidism acute November 19, 2024 1:43pm Nicotine dependence, cigarettes, in remission acute November 192024 1:43pm Obesity acute November 19 1:43pm [facility] Work Phone: 1([phone]) 343-662702-10-2025 NoteUT Cardiology - [facility] Subjective Nora Gibbs is a 84 [...] was admitted to the emergency room at [facility] with chest pain, And shortness of [...] and dry. Neurological: Gene (more content not included)...[facility]12-17-2024 Evaluation note* Diagnosis Onset Date Resolution Status [...] disease acut e May 27, 2024 2:50pm [facility] Work Phone: 1([phone]) 454-423812-17-2024 Evaluation note* Diagnosis Onset Date Resolution Status [...] disease acut e August 22, 2024 11:22am [facility] Work Phone: 1([phone]) [phone] NoteCardiovascular Medicine [place] [facility] SUBJECTIVE Chief Complaint Patient presents with [...] at bedtime., Disp: 90 tablet, Rfl: 3 eckhkrrhxqo-ctpwnahnp-ahxaxuks 200-62.5-25 mcg blister with device, INHALE 1 [...] Movements: Extraocular movements intac (more content not included)...[facility]10-09-2024 NotePatient here for 3 mo follow up [...] myalgias. All other systems reviewed and are negative.[facility] 02-19-2024 Evaluation note* Diagnosis Onset Date Resolution Status Admit Date (HFpEF) heart failure with preserved ejection fraction acute Feb ember 2023 10:17am ASHD (arteriosclerotic heart disease) acute February 19, 2024 10:17am Chronic bronchitis acute Septem brandi 2023 10:17am Hypothyroidism acute February 19, 2024 10:17am Nicotine dependence, cigarettes, in remission acute Septemb er 2023 10:17am Obesity acute February 10:17am Stage 3a chronic kidney disease acut e February 19, 2024 10:17am [facility] Work Phone: 1([phone]) [phone] Evaluation note* Diagnosis Onset Date Resolution Status Chest pain resolved ASHD (arteriosclerotic heart disease) acute Stage 3a chronic kidney disease acute Chest pain resolved (HFpEF) heart failure with preserved ejection fraction acute ASHD (arteriosclerotic heart disease) acute Stage 3a chronic kidney disease acute [facility] Work Phone: 1([phone]) 165-583909-06-2024 Evaluation note* Diagnosis Onset Date Resolution Status ASHD (arteriosclerotic heart disease) acute Chronic bronchitis acute History of breast cancer acu te Hypothyroidism acute Pernicious anemia acute Stage 3a chronic kidney disease acute Chest pain resolved Acute on chronic heart failu re with preserved ejection fraction (HFpEF) acute ASHD (arteriosclerotic heart disease) acute Stage 3a chronic kidney disease acute Chest pain resolved [facility] Work Phone: 1(401) 175-777408-05-2024 Evaluation note* Diagnosis Onset Date Resolution Status ASHD (arteriosclerotic heart disease) acute Chronic bronchitis acute History of breast cancer acu te Hypothyroidism acute Pernicious anemia acute Stage 3a chronic kidney disease acute Chest pain resolved Acute on chronic heart failu re with preserved ejection fraction (HFpEF) acute ASHD (arteriosclerotic heart disease) acute Stage 3a chronic kidney disease acute Chest pain resolved [facility] Work Phone: 1([phone]) 949-324507-01-2024 Evaluation note* Diagnosis Onset Date Resolution Status ASHD (arteriosclerotic heart disease) acute Chronic bronchitis acute History of breast cancer acu te Hypothyroidism acute Pernicious anemia acute Stage 3a chronic kidney disease acute Chest pain resolved Acute on chronic heart failu re with preserved ejection fraction (HFpEF) acute ASHD (arteriosclerotic heart disease) acute Stage 3a chronic kidney disease acute Chest pain resolved [facility] Work Phone: 1([phone]) 366-171606-21-2024 History and physical note Author Jim Clay [facility] November 30, 2023 5:16pm Note Date/Time November 30, 2023 3:48 pm [facility] [address] [place] [address] Hospitalist H&P Signed Patient: Nora Gibbs MR#: [id number] : 1940 Acct:[id number] Age/Sex: 83 / F Adm Date: 4 Loc: Room: [address] [place] [address] Type: ADM INOo Attending Dr: Jim Clay [...] and started torsemide. She recently saw her making line worker who recommended an echocardiogram and a stress [...] negative unless noted below or in HPI [facility] Medical History (Updated 11/30/23 [...] % (Auto) 20.1 % (.) 11/30/23 10:25 [place] % (Auto) 9.8 % (.) 11/30/23 10:25 Eos % (Auto) 2.8 % (.) 11/30/23 10:25 Baso % (Auto) 0.6 % (.) 11/30/23 10:25 Nucleat RBC Rel Count 0.1 /100 WBC (0-0.5) 11/30/23 10:25 Neut # (Auto) 4.1 x10E3/uL (1.8-7.7) 11/30/23 10:25 Lymph # (Auto) 1.2 x10E3/uL (1.00-4.8) 11/30/23 10:25 [place] # (Auto) 0.6 x10E3/uL (0.0-0.8) 11/30/23 10:25 [...] <Electronically signed by Jim Clay DO> 11/30/23 1716 [facility] Work Phone: 1(439) 544-692602-27-2024 Progress note Author Luis Angel Saucedo [facility] August 07, 2023 9:59am Note Date/Time August 07, 2023 9:54am [facility] [address] [place] [address] Wound Center Provider Note Signed Patient: Nora Gibbs MR#: [id number] : 1940 Acct:[id number] Age/Sex: 83 / F Copies to: MD [...] hematoma. She did see her surgeon in [place] who did her previous surgery. Patient had some punch biopsies performed to rule out cancer which apparently did not show any cancer. She did develop nonhealing wound at this site. She underwent a couple debridements and closures in [place] but each time, the wound did open up and start draining. The last debridement was last month. The surgeon who did her previous surgerieshas since left and the patient did see Dr. Kurtz last week. He did remove some remaining sutures and the patient was then referred here. Patient is currently having dressing changes performed at the [facility]. She has an open right breast [...] did wound start?: 08/2022 Mode of Arrival/ Air Value Tester: Personal vehicle Lives with:: Alone Appetite Description: [...] 0.1 CM Sq: 0.010 Surrounding Tissue Appearance: [place] Surrounding Tissue Temp: Warm Drainage Amount: None [...] by MD Luis Angel Saucedo> 08/07/23 0959 [facility] Work Phone: 1([phone]) 108-944302-06-2024 Progress note Author Luis Angel Saucedo [facility] July 17, 2023 9:52am Note Date/Time July 17, 2023 9 :52am [facility] [address] [place] [address] Wound Center Provider Note Signed Patient: Nora Gibbs MR#: [id number] : 1940 Acct:[id number] Age/Sex: 83 / F Copies to: MD [...] hematoma. She did see her surgeon in [place] who did her previous surgery. Patient had some punch biopsies performed to rule out cancer which apparently did not show any cancer. She did develop nonhealing wound at this site. She underwent a couple debridements and closures in [place] but each time, the wound did open up and start draining. The last debridement was last month. The surgeon who did her previous surgerieshas since left and the patient did see Dr. Kurtz last week. He did remove some remaining sutures and the patient was then referred here. Patient is currently having dressing changes performed at the [facility]. She has an open right breast [...] did wound start?: 08/2022 Mode of Arrival/ Air Value Tester: Personal vehicle Lives with:: Alone Appetite Description: Within Normal Limits Who helps w/ dressing change?: [facility] Why Do You Need Help?: Can't Reach Ulcer Smoking Status: Former smoker Constitutional Constitutional: Denies fever(s) Gastrointestinal Gastrointestinal: Denies abdominal pain Integumentary/Breasts Skin/Breast: Reports wounds Neurologic Neurologic: Denies syncope [facility] Medical History CAD (coronary [...] Right Breast: Bed Appearance: Beefy Red, Devitalized, [place] and Yellow Percent of Wound Bed Granulated/Red: 60 Percent of Devitalized: 40 Length (cm): 1.0 Width (cm): 2 Depth (cm): 0.9 CM Sq: 2.000 Surrounding Tissue Appearance: [place] Surrounding Tissue Temp: Warm Drainage Amount: Small [...] by MD Luis Angel Saucedo> 07/17/23 0952 [facility] Work Phone: 1([phone]) [phone] Evaluation note* Encounter Date Diagnosis Assessment Notes [...] abstinence. Not a candidate for yearly LDCT Chance (app) Other 01-24-2024 Evaluation note* Encounter Date Diagnosis Assessment Notes Treatment Notes Treatment Clinical Notes Jun, Pernicious anemia (ICD-10 - D51.0) Chance (app) Other 01-23-2024 Progress note Author Luis Angel Saucedo [facility] July 03, 2023 12:04pm Note Date/Time July 03, 2023 1 2:04pm [facility] [address] [place] [address] Wound Center Provider Note Signed Patient: Nora Gibbs MR#: [id number] : 1940 Acct:[id number] Age/Sex: 83 / F Copies to: MD [...] hematoma. She did see her surgeon in [place] who did her previous surgery. Patient had some punch biopsies performed to rule out cancer which apparently did not show any cancer. She did develop nonhealing wound at this site. She underwent a couple debridements and closures in [place] but each time, the wound did open up and start draining. The last debridement was last month. The surgeon who did her previous surgerieshas since left and the patient did see Dr. Kurtz last week. He did remove some remaining sutures and the patient was then referred here. Patient is currently having dressing changes performed at the [facility] infusion center. She has an open right [...] did wound start?: 08/2022 Mode of Arrival/ Air Value Tester: Personal vehicle Lives with:: Alone Appetite Description: Within Normal Limits Who helps w/ dressing change?: [facility] Why Do You Need Help?: Can't Reach Ulcer Smoking Status: Former smoker Constitutional Constitutional: Denies fever(s) Integumentary/Breasts Skin/Breast: Reports wounds [facility] Medical History CAD (coronary [...] Right Breast: Bed Appearance: Beefy Red, Devitalized, [place] and Yellow Percent of Wound Bed Granulated/Red: 10 Percent of Devitalized: 90 Length (cm): 0.8 Width (cm): 2 Depth (cm): 1 CM Sq: 1.600 Surrounding Tissue Appearance: [place] Surrounding Tissue Temp: Warm Drainage Amount: Small [...] by MD Luis Angel Saucedo> 07/03/23 1204 [facility] Work Phone: 1(354) 521-398701-02-2024 Progress note Author Luis Angel Saucedo [facility] June 12, 2023 9:26am Note Date/Time June 12, 2023 9: 26am [facility] [address] [place] [address] Wound Center Provider Note Signed Patient: Nora Gibbs MR#: [id number] : 1940 Acct:[id number] Age/Sex: 83 / F Copies to: MD Noble West,DO~ HPI Date of Visit Date of Visit: Date of Service: 06/12/2023 Time of Service: 09:23 Narrative HPI: Patient is status post debridement of her right breast wound. Pathology showed chronic wound changes. No mention of malignancy. Cultures grew normal skin aries. There was an anaerobe identified and [facility]. Patient was started on negative pressure [...] hematoma. She did see her surgeon in [place] who did her previous surgery. Patient had some punch biopsies performed to rule out cancer which apparently did not show any cancer. She did develop nonhealing wound at this site. She underwent a couple debridements and closures in [place] but each time, the wound did open up and start draining. The last debridement was last month. The surgeon who did her previous surgerieshas since left and the patient did see Dr. Kurtz last week. He did remove some remaining sutures and the patient was then referred here. Patient is currently having dressing changes performed at the [facility]. She has an open right breast [...] did wound start?: 08/2022 Mode of Arrival/ Air Value Tester: Personal vehicle Lives with:: Alone Appetite Description: Within Normal Limits Who helps w/ dressing change?: [facility] Why Do You Need Help?: Can't Reach Ulcer Smoking Status: Former smoker Constitutional Constitutional: Denies fever(s) Integumentary/Breasts Skin/Breast: Reports wounds [facility] Medical History Breast cancer right CAD (coronary [...] 10:29) Hives Wound/Ulcer Right Breast: Bed Appearance: [place] and Yellow Percent of Wound Bed Granulated/Red: 10 Percent of Devitalized: 90 Length (cm): 1.2 Width (cm): 2.9 Depth (cm): 2.5 CM Sq: 3.480 Surrounding Tissue Appearance: [place] Surrounding Tissue Temp: Warm Drainage Amount: Small [...] signed by MD Luis Angel Saucedo> 06/12/23925 [facility] Work Phone: [phone]) 109-276812-20-2023 Evaluation note* Encounter Date Diagnosis Assessment Notes Treatment Notes Treatment Clinical Notes May, Pernicious anemia (ICD-10 - D51.0) Chance (app) Other 12-18-2023 Hospital Discharge instructions Additional Instructions Initiate negative pressure wound therapy using black foam at 125 mmHg continuous. Change 3 times a week. In the meantime, perform dressing changes daily. Remove packing, irrigate with saline/Vashe and repack with saline moistened 4 x 4 gauze and cover with dry dressing.[facility] Work Phone: 1([phone]) [phone] Progress note Author Luis Angel Saucedo [facility] May 15, 2023 9:57am Note Date/Time May 15, 2023 9 :57am [facility] [address] [place] [address] Wound Center Provider Note Signed Patient: Nora Gibbs MR#: [id number] : 1940 Acct:[id number] Age/Sex: 83 / F Copies to: MD [...] hematoma. She did see her surgeon in [place] who did her previous surgery. Patient had some punch biopsies performed to rule out cancer which apparently did not show any cancer. She did develop nonhealing wound at this site. She underwent a couple debridements and closures in [place] but each time, the wound did open up and start draining. The last debridement was last month. The surgeon who did her previous surgerieshas since left and the patient did see Dr. Kurtz last week. He did remove some remaining sutures and the patient was then referred here. Patient is currently having dressing changes performed at the [facility] infusion center. She has an open right [...] did wound start?: 08/2022 Mode of Arrival/ Air Value Tester: Personal vehicle Lives with:: Alone Appetite Description: Within Normal Limits Who helps w/ dressing change?: [facility] Why Do You Need Help?: Can't Reach Ulcer Smoking Status: Former smoker Constitutional Constitutional: Denies fever(s) Cardiovascular Cardiovascular: Denies chest pain Respiratory Respiratory: Denies dyspnea Integumentary/Breasts Skin/Breast: Reports wounds [facility] Medical History (Updated 04/24/23 [...] by MD Luis Angel Saucedo> 05/15/23 0957 [facility] Work Phone: 1([phone]) 541-270411-16-2023 Evaluation note* Encounter Date Diagnosis Assessment Notes Treatment Notes Treatment Clinical Notes Apr, Pernicious anemia (ICD-10 - D51.0) Chance (app) Other 11-14-2023 Progress note Author Luis Angel Saucedo [facility] April 24, 2023 11:12am Note Date/Time April 24, 2023 10:46am [facility] [address] [place] [address] Wound Center Provider Note Signed Patient: Nora Gibbs MR#: [id number] : 1940 Acct:[id number] Age/Sex: 83 / F Copies to: MD [...] hematoma. She did see her surgeon in [place] who did her previous surgery. Patient had some punch biopsies performed to rule out cancer which apparently did not show any cancer. She did develop nonhealing wound at this site. She underwent a couple debridements and closures in [place] but each time, the wound did open up and start draining. The last debridement was last month. The surgeon who did her previous surgerieshas since left and the patient did see Dr. Kurtz last week. He did remove some remaining sutures and the patient was then referred here. Patient is currently having dressing changes performed at the [facility] infusion center. She has an open right [...] did wound start?: 08/2022 Mode of Arrival/ Air Value Tester: Personal vehicle Lives with:: Alone Appetite Description: Within Normal Limits Who helps w/ dressing change?: [facility] Why Do You Need Help?: Can't Reach Ulcer Smoking Status: Former smoker Constitutional Constitutional: Denies fever(s) Cardiovascular Cardiovascular: Denies chest pain Respiratory Respiratory: Denies dyspnea Gastrointestinal Gastrointestinal: Denies abdominal pain Integumentary/Breasts Skin/Breast: Reports wounds Neurologic Neurologic: Denies syncope [facility] Medical History (Updated 04/24/23 [...] Breast: Bed Appearance: Epithelial Tissue or [place], [place] and Yellow Percent of Wound Bed Granulated/Red: [...] be done daily. Patient goes to the [facility] for this. Patient follow-up here in [...] by MD Luis Angel Saucedo> 04/24/23 1112 [facility] Work Phone: 1([phone]) 110-112010-03-2023 Evaluation note* Encounter Date Diagnosis Assessment Notes [...] patient on monthly SBE and yearly mammograms. [facility] (app) Other 09-07-2023 Evaluation note* Encounter Date Diagnosis Assessment Notes Treatment Notes Treatment Clinical Notes Feb, Pernicious anemia (ICD-10 - D51.0) [facility] (app) Other 08-09-2023 Evaluation note* Encounter Date Diagnosis Assessment Notes Treatment Notes Treatment Clinical Notes Jan, Lower extremity edema (ICD-10 - R60.0) Jan, ASHD (arteriosclerotic heart disease) (ICD-10 - I25.10) Jan, HEIN (dyspnea on exertion) (ICD-10 - R06.09) Chance (app) Other 08-07-2023 Evaluation note* Encounter Date Diagnosis Assessment Notes Treatment Notes Treatment Clinical Notes Jan, Pernicious anemia (ICD-10 - D51.0) Chance (app) Other 07-25-2023 Evaluation note* Encounter Date Diagnosis Assessment Notes Treatment Notes Treatment Clinical Notes Dec, Lower extremity edema (ICD-10 - R60.0) Chance (app) Other 07-18-2023 Evaluation note* Encounter Date Diagnosis Assessment Notes Treatment Notes Treatment Clinical Notes Dec, Lower extremity edema (ICD-10 - R60.0) Chance (app) Other 07-17-2023 Evaluation note* Encounter Date Diagnosis [...] factors Dec, Elevated d-dimer (ICD-10 - R79.89) Chance (app) Other 07-06-2023 Evaluation note* Encounter Date Diagnosis Assessment Notes Treatment Notes Treatment Clinical Notes Dec, Pernicious anemia (ICD-10 - D51.0) Chance (app) Other 06-05-2023 Evaluation note* Encounter Date Diagnosis Assessment Notes Treatment Notes Treatment Clinical Notes Nov, Pernicious anemia (ICD-10 - D51.0) Chance (app) Other 05-04-2023 Evaluation note* Encounter Date Diagnosis Assessment Notes Treatment Notes Treatment Clinical Notes October, Pernicious anemia (ICD-10 - D51.0) Chance (app) Other 04-19-2023 Evaluation note* Encounter Date Diagnosis [...] mammogram in 6mo SBE monthly f/u Surgery [facility] (app) Other 04-04-2023 Evaluation note* Encounter Date Diagnosis Assessment Notes Treatment Notes Treatment Clinical Notes Sep, Pernicious anemia (ICD-10 - D51.0) Chance (app) Other 03-09-2023 Evaluation note* Encounter Date Diagnosis Assessment Notes Treatment Notes Treatment Clinical Notes Aug, Local infection of the skin and subcutaneous tissue, unspecified (ICD-10 - L08.9) Aug, Other injury of unspecified body region, initial encounter (ICD-10 - T14.8XXA) Chance (app) Other 03-09-2023 Evaluation note* Encounter Date Diagnosis Assessment Notes Treatment Notes Treatment Clinical Notes Aug, Cellulitis of female breast (ICD-10 - N61.0) Aug, Breast abscess of female (ICD-10 - N61.1) Warm compresses, continue antibiotic coverage. Schedule breast US Refer to Surgery Aug, Hx of breast cancer (ICD-10 - Z85.3) Chance (app) Other 03-02-2023 Evaluation note* Encounter Date Diagnosis [...] Hx of breast cancer (ICD-10 - Z85.3) Chance (app) Other 01-31-2023 Evaluation note* Encounter Date Diagnosis Assessment Notes Treatment Notes Treatment Clinical Notes Jun, Pernicious anemia (ICD-10 - D51.0) Chance (app) Other 05-11-2022 History of Present illness Narrative* Genny Winters PA-C - 10/19/2021 1:30 PM EDT PATIENT NAME: Nora Lopes [facility] NO.: [id number] ATTENDING PHYSICIAN: Stephen Caballero MD DATE OF SERVICE: October 19, 2021 (Elements copied from Dr. Caballero's note dated October 19, 2020, have been reviewed and updated where appropriate, and all reflect current assessment and medical decision making during today's encounter, October 19, 2021) CC: Follow up Diagnosis: 1. Right breast cancer, invasive lobular carcinoma, HER-2/suresh negative ER and PA strongly positive at 95%, diagnosed 2014 Treatment History: 1. Lumpectomy plus sentinel lymph node biopsy October 28, 2014. Invasive lobular carcinoma, 2.2 cm. 2 sentinel lymph nodes negative for involvement. ER PA 95% positive, HER-2/suresh negative. 2. Right breast [...] Date Arthritis Breast cancer (HCC) Right; T2N0M0; ER/PA+ HER2 COPD (chronic obstructive pulmonary disease) (HCC) [...] 2.2 cm, invasive lobular carcinoma, ER and PA 95% positive, HER-2/suresh negative status post lumpectomy [...] CC: Noble Hayes MD documented in this encounterUniversity Hospitals [facility] Medical Center04-14-2022 Miscellaneous Notes* Telephone Encounter - Stephen Caballero MD - 09/22/2021 1:41 PM EDT Screening is fine. She is 7 years out * Telephone Encounter - Adalgisa Beck RN - 09/22/2021 12:14 PM EDT Patient is scheduled for a screening mammogram on 10/09/21 at [facility]. The diagnosis of malignant neoplasm will not work for a screening mammogram. Patient is 7 years from diagnosis. Would you like to continue with a screening mamm and change the diagnosis to personal history of breast cancer or change the order to a diagnostic mamm? Thanks Sierra Beck RN documented in this encounterUniversity Hospitals Cleveland Medical CenterDischarge summary Author Jim Clay [facility] December 01, 2023 3:07pm Note Date/Time December 01, 2023 3:07 pm [facility] [address] [place] [address] Discharge Summary Signed Patient: Nora Gibbs MR#: [id number] : 1940 Acct:[id number] Age/Sex: 83 / F Adm Date: 4 Loc: Room: [address] [place] [address]: Jim Clay DO Copies to: [...] and stress test thisupcoming week with her making line worker in [place]. She was self admitted to hospital for [...] The patient was instructed to see her making line worker this upcoming week for her stress test [...] Blister With Device 1 inh INHALATION DAILY xonxbf-noecnkpv-odn C-E-herbal 1,250 mcg-50 mg -67.5 mg-15 mg [...] % (Auto) 62.6, Lymph % (Auto) 22.3, [place] % (Auto) 11.5, Eos % (Auto) 2.8, Baso % (Auto) 0.8, Nucleat RBC Rel Count 0.1, Neut # (Auto) 4.0, Lymph # (Auto) 1.4, [place] # (Auto) 0.7, Eos # (Auto) 0.2, [...] signed by Jim Clay DO> 12/01/23 1507 [facility] Work Phone: Evaluation note* Diagnosis Encounter for screening mammogram for malignant neoplasm of breast- Primary Other screening mammogram documented in this encounter [facility] CenterEvaluation noteNo VerbalizeItGarfield [employer] Other Evaluation note* Diagnosis Onset Date Resolution Status History of breast cancer acu te History of radiation exposure acute Nonhealing surgical wound ac [facility] Work Phone: Evaluation note* Diagnosis Onset Date Resolution Status Essential hypertension acute Cerumen impaction noneactive History of breast cancer acu te History of radiation exposure acute Nonhealing surgical wound ac [facility] Work Phone: Evaluation note* Diagnosis Onset Date Resolution Status History of breast cancer acu te History of radiation exposure acute Nonhealing surgical wound ac [place] ASHD (arteriosclerotic heart disease) acute Chronic bronchitis acute Edema acute Essential hypertension acute History of breast cancer acu te Hypothyroidism acute Pernicious anemia acute Stage 3a chronic kidney disease acute [facility] Work Phone: Evaluation note* Diagnosis Onset Date Resolution Status ASHD (arteriosclerotic heart disease) acute Chronic bronchitis acute Essential hypertension acute History of breast cancer acu te Hypothyroidism acute Lower extremity edema acute Pernicious anemia acute Stage 3a chronic kidney disease acute Chest pain acute Essential hypertension acute [facility] Work Phone: Evaluation note* Diagnosis Onset Date Resolution Status ASHD (arteriosclerotic heart disease) acute Chronic bronchitis acute Essential hypertension acute History of breast cancer acu te Hypothyroidism acute Lower extremity edema acute Pernicious anemia acute Stage 3a chronic kidney disease acute Chest pain acute Essential hypertension acute Lower extremity edema acute [facility] Work Phone: Evaluation note* Diagnosis Onset Date [...] acute Stage 3a chronic kidney disease acute [facility] Work Phone: Evaluation note* Diagnosis Onset Date Resolution Status (HFpEF) heart failure with preserved ejection fraction acute ASHD (arteriosclerotic heart disease) acute Chronic bronchitis acute Hypothyroidism acute Nicotine dependence, cigarettes, in remission acute Obesity acute Stage 3a chronic kidney disease acute [facility] Work Phone: History general Narrative - [...] cell skin cancer Hospitalization History SEE ABOVE Chance (app) Other History general Narrative - Reported* Type [...] History SEE ABOVE Hospitalization History SEE ABOVE Chance (app) Other History general Narrative - ReportedNoHangar Seven Other History general Narrative - Reported* Type [...] cell skin cancer Hospitalization History SEE ABOVE Chance (app) Other History general Narrative - Reported* Type [...] ulcera tion 01/2023 Hospitalization History SEE ABOVE Chance (app) Other Hiskewv general Narrative - Reported* Type Description Date [...] ulcera tion 05/2023 Hospitalization History SEE ABOVE Chance (app) Other Progress note Author Luis Angel Saucedo [facility] August 28, 2023 9:48am Note Date/Time August 28, 2023 9:4 8am [facility] [address] [place] [address] Wound Center Provider Note Signed Patient: Nora Gibbs MR#: [id number] : 1940 Acct:[id number] Age/Sex: 83 / F Copies to: MD [...] hematoma. She did see her surgeon in [place] who did her previous surgery. Patient had some punch biopsies performed to rule out cancer which apparently did not show any cancer. She did develop nonhealing wound at this site. She underwent a couple debridements and closures in [place] but each time, the wound did open up and start draining. The last debridement was last month. The surgeon who did her previous surgerieshas since left and the patient did see Dr. Kurtz last week. He did remove some remaining sutures and the patient was then referred here. Patient is currently having dressing changes performed at the [facility]. She has an open right breast [...] did wound start?: 08/2022 Mode of Arrival/ Air Value Tester: Personal vehicle Lives with:: Alone Appetite Description: Within Normal Limits Who helps w/ dressing change?: Home Health and Wound Care Dept Why Do You Need Help?: Can't Reach Ulcer Smoking Status: Former smoker Constitutional Constitutional: Denies fever(s) [facility] Medical History Stage 3a [...] 0 CM Sq: 0.000 Surrounding Tissue Appearance: [place] Surrounding Tissue Temp: Warm Drainage Amount: None [...] <Electronically signed by MD Luis Angel Saucedo> 08/28/2348 [facility] Work Phone: Reason for referral (narrative)* Diagnostic Procedure Only (Routine) - Pending Review Specialty Diagnoses / Procedures Referred By Jann caraabllo Referred To Contact [facility] Diagnoses Encounter for screening mammogram for malignant neoplasm of breast Procedures KAREN SCREENING SCREENING MAMMOGRAPHY BI 2-VIEW BREAST INC CAD Genny Winters PA-C [address] [place] [address] [place] [address] [facility] [address] [place] [address] Referral ID Status Reason Start Date Expiration Date Visits Requested Visits Authorized [id number] Pending Review Auto-Generat ed Referral 10/19/2021 11/18/2022 1 1 [facility] for referral (narrative)* Reason *FU 09/04 Referral for right breast abscess Diagnosis 1 Breast abscess of fe male (N61.1) Referral Organization [facility] roma Referring Provider First Name Noble Referring Provider Last Name Abigail Referring Provider Specialty Internal Me dicine Referred Organization Unknown Facility Referred Provider Checo Reis Referred Provider Specialty Surgery Referral Priority Routine General Notes Kelly Gilbert 01:34:05 PM >received today, notes locked, and referral faxed Kelly Gilbert 08/28/2022 12:05:49 PM >FAXED FIRST ATTEMPT LETTER Clinical Notes . . Chance (app) Other Reason for referral (narrative)No reason for referral [facility]Bl[facility] Work Phone: Summary Purpose Family History [...] 22, 2024 11:22am ASHD (arteriosclerotic heart disease) [facility] 2024 11:22am Chronic bronchitis August 22, [...] 22, 2024 11:22am ASHD (arteriosclerotic heart disease) [facility] 2024 11:22am Chronic bronchitis August 22, [...] 22, 2024 11:22am ASHD (arteriosclerotic heart disease) [facility] 2024 11:22am Chronic bronchitis August 22, [...] HIP PAIN NX PREV JRB KRISTA Jan 9:48am Reason for Visit Admit Date (HFpEF) heart failure with preserved eje ction fraction November 19, 2024 1:43pm ASHD (arteriosclerotic heart disease) Ju 2024 1:43pm Chronic bronchitis November 19, 2024 1:43 pm Hypertension November 19, 2024 1:43 pm Hypothyroidism November 19, 2024 1:43 pm Nicotine dependence, cigarettes, in urth ssion November 19, 2024 1:43pm Obesity November 19, 2024 1:43 pm (HFpEF) heart failure with preserved eje ction fraction November 26, 2024 11:12am ASHD (arteriosclerotic heart disease) Ju ri 2024 11:12am Chronic bronchitis November 26, 2024 11:1 2am Hypertension November 26, 2024 11:1 2am Nicotine dependence, cigarettes, [facility] November 26, 2024 11:12am Obesity November 26, [...] HIP PAIN NX PREV JRB KRISTA Jan 9:48am B12 shot February 02, 2025 1: 05pm Chief Complaint Admit Date IP heart cath [facility] November 26, 2024 11:1 2am B12 shot December 01, 2024 12:0 3pm B12 shot December 31, 2024 11:1 8am [facility] HIP PA[facility] NX PREV JRB KRISTA Jan 9:48am B12 shot February 02, 2025 1: [...] 2025 1:21pm Obesity February 23, 2025 1:21pm Chief Complaint Admit Date B12 shot December 31, 2024 11:1 8am [facility] HIP PAIN NX PREV JRB KRISTA Jan 9:48am B12 shot February 02, 2025 1: 05pm 3 month f/u February 23, 2025 1:21pm B12 Shot March 11, 2025 10 :43am Reason for Visit Admit Date Greater trochanteric bursitis of left hi p January 27, 2025 9:48am Greater trochanteric bursitis of right h ip [place] 19th, 2025 9:48am (HFpEF) heart failure with preserved [...] and content) DATE CREATED AUTHOR 09/16/2018 [facility] DATE CREATED AUTHOR AUTHOR'S ORGANIZ ATION 08/23/2022 [facility] DATE CREATED AUTHOR AUTHOR'S ORGANIZ ATION 11/17/2022 [facility] [place] [facility] DATE CREATED AUTHOR AUTHOR'S ORGANIZ ATION 12/11/2023 [facility] DATE CREATED AUTHOR AUTHOR'S ORGANIZ ATION 01/10/[address] [facility] DATE CREATED AUTHOR AUTHOR'S ORGANIZ ATION 03/15/2025 [facility] Source Comments (unrecognize d section and content) In the event this informatio n is protected by the Federal Confidentiality of Alcohol and Drug Abuse Patient Records regulations: The Federal rules restrict any use of the information to criminally investigate or prosecute any alcohol or drug abuse patient.[facility] Medical CenterIn the event this information is protected by the Federal Confidentiality of Alcohol and Drug Abuse Patient Records regulations: The Federal rules restrict any use of the information to criminally investigate or prosecute any alcohol or drug abuse patient.[facility] Reason for Visit (unrecogniz ed [...] End: November 26, 2024 Noble Hayes , Attending Provider Active Sta rt: November 26, 2024 End: November 26, 2024 Team Status: Inactive Member Role Status Dates Noble Hayes DO Primary Care Provider Active Start: December 01, 2024 End: December 01, 2024 Noble Hayes DO Attending Provider Active Sta rt: December 01, 2024 End: December 01, 2024 Team Status: Inactive Member Role Status Dates Noble Hayes DO Primary Care Provider Active Start: December 31, 2024 End: December 31, 2024 Noble Hayes DO Attending Provider Active Sta rt: December [...] 2025 End: February 02, 2025 Noble Hayes DO Attending Provider Active [...] End: September 06, 2023 Lesly Dye APRN [employer]TEN[employer] MACHINE OPERATOR-C Attending Provider Act wyatt Start: September 06, 2023 End: September 06, 2023 Team Status: Inactive Member Role Status Rick Hayes DO Primary Care Provide r, Attending Provider Active Start: October 08, 2023 End: October 08, 2023 Team Status: Inactive Member Role Status Rick Hayes DO Primary Care Provide r, Attending Provider Active Start: November 08, 2023 End: November 08, 2023 Cab Supervisor Relationship Specialty Start Date End Date Noble Hayes DO PCP - General Internal Medicine 11/09/14 Cab Supervisor Relationship Specialty Start Date End Date [...] Status: Active Member Role Status Dates Noble Ball , [...] Status Rick Hayes , DO Primary Care Provider Active Start: March 11, 2025 End: March 11, 2025 Noble Hayes , DO Attending Provider Active Sta rt: March 11, 2025 End: March 11, 2025 Goals (unrecognized section and content) Goals [...] BE BASED ON THE PRIMARY CLINICAL RECORDS. [employer] [facility]. provides no warranty or guarantee of the accuracy or completeness of information in this document.
--- NOTE | 2025-03-19 13:47 | PM.WCHP ---
Wound Care H&P: HPI History of Present Illness Narrative: Nora is a pleasant 84-year-old female who presents for routine nail care. She has history of coronary artery disease and peripheral arterial disease. She uses a cane for ambulation. She has a painful left hallux toenail which is severely incurvated and snags on her socks. [facility] Medical History Plantar fasciitis ?M72.2 - Plantar fascial fibromatosis (ICD-10) Skin cancer ?C44.90 - Unspecified malignant neoplasm of skin, unspecified (ICD-10) Wound infection (~2014) ?T14.8XXA - Other injury of unspecified body region, initial encounter (ICD-10) ?L08.9 - Local infection of the skin and subcutaneous tissue, unspecified (ICD-10) Complication of artery associated with surgical procedure (06/01/14) ?I97.89 - Other postprocedural complications and disorders of the circulatory system, not elsewhere classified (ICD-10) Difficult intravenous access ?Z78.9 - Other specified health status (ICD-10) Breast cancer ?C50.919 - Malignant neoplasm of unspecified site of unspecified female breast (ICD-10) Arthritis ?M19.90 - Unspecified osteoarthritis, unspecified site (ICD-10) Anemia ?D64.9 - Anemia, unspecified (ICD-10) Pneumonia ?J18.9 - Pneumonia, unspecified organism (ICD-10) Chronic obstructive pulmonary disease ?J44.9 - Chronic obstructive pulmonary disease, unspecified (ICD-10) Extremity edema ?R60.0 - Localized edema (ICD-10) Dyspnea on exertion ?R06.09 - Other forms of dyspnea (ICD-10) High cholesterol ?E78.00 - Pure hypercholesterolemia, unspecified (ICD-10) Coronary artery disease ?I25.10 - Atherosclerotic heart disease of [place] coronary artery without angina pectoris (ICD-10) Hypertension ?I10 - Essential (primary) hypertension (ICD-10) Hypothyroidism ?E03.9 - Hypothyroidism, unspecified (ICD-10) Postoperative nausea and vomiting ?R11.2 - Nausea with vomiting, unspecified (ICD-10) ?Z98.890 - Other specified postprocedural states (ICD-10) Breast wound ?S21.009A - Unspecified open wound of unspecified breast, initial encounter (ICD-10) Surgical History History of incision and drainage (01/31/23) ?Z98.890 - Other specified postprocedural states (ICD-10) Hx of local excision of skin lesion (10/14/19) ?Z98.890 - Other specified postprocedural states (ICD-10) S/P skin biopsy (09/30/19) ?Z98.890 - Other specified postprocedural states (ICD-10) 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) ?Z96.642 - Presence of left artificial hip joint (ICD-10) H/O colonoscopy (03/31/15) ?Z98.890 - Other specified postprocedural states (ICD-10) H/O exploratory laparotomy (~06/01/14) ?Z98.890 - Other specified postprocedural states (ICD-10) H/O toe surgery (04/19/12) ?Z98.890 - Other specified postprocedural states (ICD-10) S/P left knee arthroscopy (04/22/08) ?Z98.890 - Other specified postprocedural states (ICD-10) H/O left breast biopsy (01/02/06) ?Z98.890 - Other specified postprocedural states (ICD-10) H/O lumbosacral spine surgery (04/23/98) ?Z98.890 - Other specified postprocedural states (ICD-10) H/O cervical spine surgery (07/09/97) ?Z98.890 - Other specified postprocedural states (ICD-10) History of surgery on arm (02/04/97) ?Z98.890 - Other specified postprocedural states (ICD-10) History of cervical spinal surgery (04/07/96) ?Z98.890 - Other specified postprocedural states (ICD-10) H/O shoulder surgery (04/07/96) ?Z98.890 - Other specified postprocedural states (ICD-10) H/O dilation and curettage (02/16/1962) ?Z98.890 - Other specified postprocedural states (ICD-10) H/O cervical spine surgery (07/19/95) ?Z98.890 - Other specified postprocedural states (ICD-10) H/O exploratory laparotomy (~1970) ?Z98.890 - Other specified postprocedural states (ICD-10) History of hysterectomy (~1970) ?Z90.710 - Acquired absence of both cervix and uterus (ICD-10) History of colostomy reversal (04/14/15) ?Z98.890 - Other specified postprocedural states (ICD-10) History of colostomy (07/07/14) History of esophagogastroduodenoscopy (EGD) ?Z98.890 - Other specified postprocedural states (ICD-10) History of colonoscopy (07/01/14) ?Z98.890 - Other specified postprocedural states (ICD-10) History of tonsillectomy (~1940) ?Z90.89 - Acquired absence of other organs (ICD-10) History of breast biopsy ?Z98.890 - Other specified postprocedural states (ICD-10) H/O lumpectomy (10/28/14) ?Z98.890 - Other specified postprocedural states (ICD-10) S/P cataract extraction and insertion of intraocular lens (~2006) ?Z98.49 - Cataract extraction status, unspecified eye (ICD-10) ?Z96.1 - Presence of intraocular lens (ICD-10) History of heart artery stent (09/03/18) ?Z95.5 - Presence of coronary angioplasty implant and graft (ICD-10) History of cardiac catheterization (09/03/18) ?Z98.890 - Other specified postprocedural states (ICD-10) History of total hip arthroplasty (10/25/10) ?Z96.649 - Presence of unspecified artificial hip joint (ICD-10) History of arthroplasty of knee (12/09/13) ?Z96.659 - Presence of unspecified artificial knee joint (ICD-10) Family History Other Family history of lung cancer Social History Within the past year, how often did you have a drink containing alcohol: never Score interpretation: A score less than 3 is consistent with normal alcohol consumption. Smoking status: Former smoker Non-prescribed substance use: denies use Previous occupational history: RETIRED Highest level of school completed/degree received: high school graduate Little interest or pleasure in doing things: not at all Feeling down, depressed, or hopeless: not at all Meds Home Medications and Allergies Home Medications ?Medication ?Instructions ?Recorded ?Confirmed ?Type acetaminophen 500 mg capsule 1,000 mg PO Q6H PRN pain 01/18/23 10/09/24 History albuterol sulfate 90 mcg/actuation 2 inh inhalation Q6H PRN shortness 01/18/23 10/09/24 History aerosol inhaler of breath or wheezing amlodipine 10 mg tablet 10 mg PO DAILY 01/18/23 10/09/24 History aspirin 81 mg tablet,delayed 81 mg PO DAILY 01/18/23 10/09/24 History release (Adult Aspirin Regimen) atorvastatin 40 mg tablet 40 mg PO QPM 01/18/23 10/09/24 History calcium 600 mg (as 1 tab PO DAILY 01/18/23 10/09/24 History carbonate)-vitamin D3 5 mcg (200 unit) tablet cyanocobalamin (vitamin B-12) 500 mcg IM .monthly 01/18/23 10/09/24 History 1,000 mcg/mL injection solution docusate sodium 100 mg capsule 100 mg PO DAILY PRN constipation 01/18/23 10/09/24 History (Colace) fluticasone fur. 200 mcg-umeclid 1 inh inhalation DAILY 01/18/23 10/09/24 History 62.5 mcg-vilant 25 mcg inhalat.powder (Trelegy Ellipta) inulin 2 gram chewable tablet 5 g PO BID 01/18/23 10/09/24 History (Fiber Gummies) isosorbide mononitrate 60 mg 90 mg PO DAILY 01/18/23 10/09/24 History tablet,extended release 24 hr levothyroxine 88 mcg tablet 88 mcg PO DAILY 01/18/23 10/09/24 History (Euthyrox) lisinopril 20 mg tablet 20 mg PO BID 01/18/23 10/09/24 History temazepam 30 mg capsule (Restoril) 30 mg PO QPM 01/18/23 10/09/24 History doxazosin 2 mg tablet 4 mg PO DAILY 10/04/24 10/09/24 History metoprolol succinate 25 mg 12.5 mg PO DAILY 10/04/24 10/09/24 History tablet,extended release 24 hr isosorbide mononitrate 30 mg 30 mg PO DAILY 10/09/24 10/09/24 History tablet,extended release 24 hr pantoprazole 40 mg tablet,delayed 40 mg PO DAILY 6 weeks #42 tabs 10/09/24 Rx release (Protonix) Allergies Allergy/AdvReac Type Severity Reaction Status Date / Time Penicillins Allergy Hives Verified 10/04/24 19:56 Sulfa (Sulfonamide Allergy Rash Verified 10/04/24 19:56 Antibiotics) Exam Narrative: Exam Narrative: Dermatologic: Fungal/mycotic toenails with a spiral left hallux toenail. The left hallux toenail is ingrown on both borders without evidence of paronychia. No ulcerative or preulcerative lesions noted. Skin is dry and shiny. Vascular: PT pulses are 1/4 bilaterally, dorsalis pedis pulses nonpalpable bilaterally. Capillary refill is less than 3 seconds. Superficial varicosities are noted. There is nonpitting edema of the feet and ankles bilaterally. Skin is cool to the touch. Digital hair is absent bilaterally. Neuro: Vibratory sensation intact bilaterally, Achilles deep tendon reflexes 1+ bilaterally, monofilament testing was absent to all 4 tested areas on the right and present in 2/4 areas on the left MSK: Strength 5/5 in all planes, contractures of the lesser toes noted Assessment and Plan Assessment and Plan (1) Nail dystrophy: (2) Tinea unguium: (3) Diminished pulses in lower extremity: (4) Disorder of nail due to another disorder: (5) Pain around toenail: Plan Routine nail care performed. Follow-up in 10-12 weeks. Acute Procedures Podiatry Nail Debridement Class B Findings Advanced trophic changes as evidenced by any three of the following: decreased hair growth, nail changes (thickening) and skin texture (thin or shiny) Absent dorsalis pedis pulse: bilateral Class C Findings Claudication: No Temperature changes: Yes Edema: Yes Nail debridement paresthesia (abnormal spontaneous sensations in the feet): No Burning: No Qualifies If: Qualifiers If:: A patient qualifies for nail debridement if they have: 1 class A finding (Q7) 2 class B findings (Q8) OR 1 class B & 2 class C findings in addition to a primary condition (Q9) Nail Procedure Nail Procedure Time out: Yes Nail procedure: other (Sharp debridement of toenails 1 through 10) Number of affected nails: 10 Location (toes): left and right Procedure successful: Yes Patient tolerated procedure: well and no complications Additional comments: Toenails 1 through 10 were sharply debrided with nail nippers without incident
== END 2025-03-19 12:45 | disposition home or self-care (01) ==
LOC: WC 12:45
PROVIDERS: PCP Internal Medicine Interventional Cardiology; Visit Provider Physician Assistant
DX: B35.1 Tinea unguium (principal); L60.3 Nail dystrophy; R09.89 Other specified symptoms and signs involving the circulatory and respiratory systems; L60.8 Other nail disorders; M79.675 Pain in left toe(s)
CPT/HCPCS: 11721

== ENCOUNTER 2025-04-15 14:19 | Outpatient (OUT) | payer MEDICARE, SELFPAY ==
--- OUTSIDE RECORDS SUMMARY | 2024-06-24 08:00 | XMS_ITS ---
Author Organization [facility] in [place] Address [address] [place] [address] Care Team Providers Care Guzzler Builder Name Role Phone Noble Ferguson DO Primary Care Provider UnavailMarleny Jules Unavailable [phone] REASON FOR VISIT Nail Care Encounters Encounter Location Date Provider Diagnosis [facility] (PODIATRY) [address] [place] [address] [place] [address] 06/24/2024 Marleny Adler Plan Of Treatment No Information Progress Notes * Nora GIBBS LDOB:[birth year] (85 yo F)Acc No.[id number]:06/24/2024 UNLOCKED PROGRESS NOTE Nurse Visit Patient: Clari GOTTIsuzanne Lopes :?ROCK HerreraCDOB:1940???Age:84 Y ???Sex:FemaleDate:06/24/2024Phone:[phone]:[address] [facility] ARACEL[address] [place] [id number]:Noble Ferguson DO Subjective: * Chief Complaints: * 1 . Nail Care. * Medical History: Objective: * Vitals: Assessment: Plan: * Treatment: * * Electronic signature of Marleny Adler PA-C on 04/15/2025 at 02:26 PM ESTSign off status: PendingVisit Status:?CANC (Cancelled) * Provider: Marina Adler PA-C Date: 0 06/24/2024 Generated for Printing/Faxing/eTransmitting on:?04/15/2025 02:26 PM EST
--- OUTSIDE RECORDS SUMMARY | 2025-04-14 11:20 | XMS_ITS | Continuity of Care Document ---
Author Organization [facility] Address [address] [place] [address] Phone Care Team Providers Care Chauffeur [employer] Name Role Phone Noble Ferguson DO Primary Care Provider Bobby Blood II, MD Attending Provider Noble Ferguson DO Attending Provider Care Teams Patient Care Team Team Status: Active Member Role/Relationship Status Dates Noble Ferguson DO Primary Care Provider Active Visit Care Team Team Status: Inactive Member Role/Relationship Status Dates Noble Ferguson DO Primary Care Provider Active Start: January 27, 2025 End: January 27, 2025Calista Bob II ProviderActiveStart: January 27, 2025 End: January 27, 2025 Visit Care Team Team Status: Inactive Member Role/Relationship Status Dates Noble Ferguson DO Primary Care Provider Active Start: February 02, 2025 End: February 02Primo Leone ProviderActiveStart: February 02, 2025 End: February 02, 2025 Visit Care Team Team Status: Inactive Member Role/Relationship Status Dates Noble Ferguson DO Primary Care Provider Active Start: February 23, 2025 End: February 23Primo Leone ProviderActiveStart: February 23, 2025 End: February 23, 2025 Visit Care Team Team Status: Inactive Member Role/Relationship Status Dates Noble Ferguson DO Primary Care Provider Active Start: March 11, 2025 End: March 11Primo Leone ProviderActiveStart: March 11, 2025 End: March 11, 2025 Patient Care Team Team Status: Inactive Member Role/Relationship Status Dates Noble Ferguson DO Primary Care Provider Active Start: April 14, 2025 End: April 14geraldine Ferguson DOAttending ProviderActiveStart: April 14, 2025 End: April 14, 2025 Chief Complaint and Reason for Visit Chief Complaint Admit Date [facility] NX PREV JRB KRISTA Aug ust 2024 9:48am B12 shot February 02, 2025 1: 05pm 3 month f/u February 23, 2025 1:21pm B12 Shot March 11, 2025 10 :43am B12 Shot, Poss Blood Clot April 14, 2025 3:01pm Reason for Visit Admit Date Greater trochanteric bursitis of left hi p January 27, 2025 9:48am Greater trochanteric bursitis of right h ip January 27, 2025 9:48am (HFpEF) heart failure with preserved eje ction fraction February 23, 2025 1:21pm ASHD (arteriosclerotic heart disease) Se pt2024 1:21pm Chronic bronchitis February 23, 2025 1:21pm [...] Verified Status Comments penicillamine Allergy Unknown Hives April 3:25pm Yes Active PenicillinsAllergyUnknowUTivesNew Horizons Medical Center 2024 3:25pmYesActiveOnset Date: 05/15/2014Sulfa (Sulfonamide Antibiotics)AllergyUnknownHivesNew Horizons Medical Center 2024 3:25pmYesActiveOnset Date: 05/15/2014sulfacetamideAllergyUnknowPutnam [facility]2024 3:25pmYesActivesulfurAllergyUnknowWest [facility] 2024 3:25pmYes Active Social History Smoking Status Status Start Date End Date Date of Observa tion Ex-smoker (finding) November 10, 2007Jun2023 2:53pm Observation Status Observation Response Date of Response Legal Sex Female (finding) Sex Assigned At BirthFemaleOctober 1939 Family History Relationship Condition Age at Onset Recorded Date/T nithin father Myocardial infarction Unknown sisterMalignant neoplasmUnknownfatherDeceasedUnknownmotherDeceasedUnknown Problems Active Problems Problem Diagnosis/Recorded Date Onset Date Status C ments Medicare annual wellness vis it, subsequent May 25, 2024 1:30pm Unknown Active Primary insomniaFebruary 2023 9:01amUnknownActiveGreater trochanteric bursitis of left hipAugust 2024 10:12amUnknownActiveGreater trochanteric bursitis of right hipAugust 2024 10:11amUnknownActiveNicotine dependence, cigarettes, in remissionFebruary 2023 9:31amUnknownActiveScreening mammogram for breast cancerDecember 2023 1:32pmUnknownActiveHistory of breast cancerNovember 2022 11:09amUnknownActive(HFpEF) heart failure with preserved ejection fractionSeptember 2023 5:00pmUnknownActiveEcho: LVEF 55%, mild , normal RV size/function - 11/2023,Echo: LVEF 60%, KAREEM, normal RV size/function, RVSP 33 - 10/2024Pernicious anemiaFebruary 2023 1:21pm UnknownActiveDyspneaSeptember 2023 7:46amUnknownActiveEdemaJune 2023 10:43amUnknownActiveHypothyroidismNovember 2022 9:30amUnknownActiveChronic kidney diseaseApril 2024 1:26pmUnknownActivePulmonary nodulesSeptember 2024 1:15pmUnknownActiveBilateral hip painAugust 2024 7:18amUnknown ActiveHistory of radiation exposureNovember 2022 11:09amUnknownActive Chronic bronchitisJune 2023 2:44pmUnknownActivePFT: mild obstructive defect, mild restrictive defect, decreased DLCO - 02/2024,CTA chest: negative - 11/2023HypertensionDecember 2023 3:48pmUnknownActiveObesitySept2023 7:52pmUnknownActiveASHD (arteriosclerotic heart disease)August 09, 2023 9:31amUnknownActiveLHC: PCI/stent RCA, 70% LCx, 70% distal LAD - 08/2018,Stress testing w/o ischemia - 11/2023,PCI/stentmid LCx - 11/2024Inactive/Resolved Problems Problem Diagnosis/Recorded Date Onset Date Status C omments Lower extremity edema November 19, 2023 7:44pm Unknown Re solved Essential hypertensionFebruary 2023 9:31amUnknownResolvedChest painJun2023 12:34pmUnknownResolved Medications Medication Status Dose Units Route Directions Qty Days Refills S tart Date Stop Date End Date Reason(s) Instructions Adherence Temazepam 30 mg capsule Discontinued 30 MG PO Daily at bedtime 30 30 5 August 03, 2023 9:00am January 28, 2024 8:00pmPrimary insomnia Primary insomniaLisinopril 20 mg tabletDiscontinued0.ROUTE.XXSVRIG6079Tutee 2023 2:12pmJune 2023 5:33pmTAKE ONE TABLET BY MOUTH DAILYDoxazosin 2 mg hntiqpIimjamqhkgxb6JZLWNzvpy at bedtimeJune 2023 11:00pmJune 2023 1:24pmFurosemide 20 mg uskxkuPyuqomwqvwve31IZLXLxjpn jrvcy00519Ifjc 2023 11:00pmSeptember 2023 9:25amLisinopril 30 mg zkjtrrRvofvtrhupeg20DCGKChwbc 380730Xssb 2023 10:34amSeptember 2023 10:02amTemazepam 30 mg capsule Nqjqxabwkoue12PUBHLucar at pgucuqu13881Dbubsp 2023 8:00pmJanuary 2024 1:13pmPrimary insomnia Primary insomniaLevothyroxine 88 mcg tabletDiscontinued0.ROUTE.OXNQXEI6471Rpabzg 2024 12:10pmJuly 2024 9:08pmTAKE ONE TABLET BY MOUTH ONCE DAILY ON AN EMPTY STOMACHFurosemide 20 mg yfnftkYtpasgkgfxvt23NNAUXunyw dailyOctober 2023 11:00pmDecember 2023 3:20pmIsosorbide Mononitrate 30 mg tablet extended release 24 kpZmoaneftlnog88LEFEEuzlrFejvpoo 2023 11:00pmJune 2024 10:02amLisinopril 20 mg ppavpcGpqsuv70FXAOBvhxa dailyOctober 2023 11:00pmComplies with drug therapyTemazepam 30 mg ywelvwkLlmpiubotufm66URLGApmvo at ickwqqs67080Xjddmls 2024 1:12pmAugust 2024 4:52pmPrimary insomnia Primary insomniaOndansetron 4 mg tablet,lyexywemndvvfyZigkvttupgdi4GOQASgwzj 8 hours as needed for nausea and kjqqvrew2497Lawcc 2024 11:00pmJune 2024 2:40pmClopidogrel 75 mg unlxivDolztz67UGDAWcfpk69215Gqdf 2024 11:00pm Complies with drug therapyDoxazosin 4 mg bczgcaOpwpplwupjpo7RFCBVrohs at bedtime 70966Anrw 2024 2:39pmSeptember 2024 12:29pmPrimary hypertension Essential (primary) hypertensionIsosorbide Mononitrate 30 mg tablet extended release 24 luUjijaeclbhrw96IRNILxjjvWxev 2024 10:01amJuly 2024 6:59pmtake 30mg in the morning; take 60+30mg to EQUAL 90mgLevothyroxine 88 mcg tabletActive0.ROUTE.SBJWMEH3853Jfpk2024 9:08pmTAKE ONE TABLET BY MOUTH ONCE DAILY ON AN EMPTY STOMACHComplies with drug therapyIsosorbide Mononitrate 120 mg tablet extended release 24 qaFvakihhitbbt26HKRUQvoiw292Uzgj 2024 6:58pmSeptember 2024 12:44pmtake 30mg in the morning; take 60+30mg to EQUAL 90mgPantoprazole 20 mg tablet,delayed release (DR/EC)Foqrwp15VALTWgjup810 December 29, 2024 11:00pmComplies with drug therapyTemazepam 30 mg repmtilWzvizw40 MGPODaily at mbglhdc75930Urqqrz 2024 4:52pmPrimary insomnia Primary insomniaComplies with drug therapyAtorvastatin 40 mg opnufzEtrxsu32SHJE DailyApril 24, 2023 12:00amComplies with drug therapyLisinopril 20 mg lpwnkkXjiiebgahypd61OYBZSqvmu 2022 12:00amMarch 2023 2:12pmCyanocobalamin (Vitamin B-12) (Vitamin B-12) 100 mcg/mL Solution Vxcldbpnukub994SPKFaicynzg 14th, 2023 12:00amDeceer 2022 10:42am Isosorbide Mononitrate 60 mg tablet extended release 24 pbXtgkfkojdnpy27WNYN Every morningApril 24, 2023 12:00amJune 2024 2:40pmLevothyroxine 88 mcg evocpaEnuvldntrtse06VYVSHCqbip 2022 12:00amAugust 2023 12:10pmTemazepam 30 mg pbfxmwlUxforkmhshin65GNJCQarpy at bedtime April 24, 2023 12:00amFebruary 2023 9:01amAmlodipine 10 mg tablet Gurkulqmkrgp35IJPWDfukq 2022 12:00amJune 2023 3:11pm Aspirin 81 mg Tablet,YlxvwtbwLrcfhz55UCGEVrgvtIzuaowls 14th, 2023 12:00am Complies with drug therapyCalcium Carbonate-Vitamin D3 (Calcium 600 + D(3)) 600 mg-10 mcg (400 unit) OszpsdDbrvse3DVKNKAhkemImtzkpwf 14th, 2023 12:00amComplies with drug therapyInulin (Fiber Gummies) 2 gram Tablet,YimjctrdNywycv0XJFRFkknn dailyApril 24, 2023 12:00amComplies with drug therapy Ulvsbmknesa-Aptmhvffw-Ejjuhjsb (Trelegy Ellipta) 200-62.5-25 mcg Blister With IhyxsnNtycnsblkdhi0GIRNRMGYMTWYTNxlnpNnsatnqj 14th, 2023 12:00amMay 2024 12:68wjPojjal-Wvjzjgfh-Pit C-E-Herbal 1,250 mcg-50 mg -67.5 mg-15 mg Tablet,WzoqczrzImrfwo9SSTHMAfqrv after supperApril 24, 2023 12:00amComplies with drug therapyDoxazosin 2 mg mpuhkhSqrqzwroroyg6MEFGCczdt at bedtimeNovember 29, 2023 11:00pmMarch 2024 11:02amPrimary hypertension Essential (primary) hypertensionSpironolactone 25 mg EpnevvEefofcpycwuh99QVVU Sziyo384RhpjNovember 30, 2023 11:00pmSept2023 11:45amMetoprolol Succinate 25 mg Tablet Extended Release 24 XvQqgbxk76.1FCZLVbknf10358Rgbk 21st, 2024 11:00pmComplies with drug therapyDoxazosin 2 mg dlctvzDdvuziazrnkt5PHVVIkyvf at bedtimeMed[facility] 2024 11:01amJune 2024 2:40pmPrimary hypertension Essential (primary) hypertensionAcetaminophen 500 mg TgesioQqoidfcrnzge590OCUP Q6H as needed for PainDeceer 2022 12:00amOctober 2023 1:29pm Cyanocobalamin (Vitamin B-12) 1,000 mcg/mL VywiveivPyzujw0719ITEPIhiipe month May 17, 2023 12:00amComplies with drug therapyAlbuterol Sulfate 90 mcg/actuation Hfa Aerosol ZedkleqDbuemiymfdhc0CSBVGPAYNKSLSMXr Directed as needed for Shortness Of BreathDeceer 2022 12:00amSeptember 2023 9:46amTorsemide 20 mg kqidsoZklvenuwqtwn87OLXYIiago oaymtco820Cgco2023 11:00pmJune 2023 2:03pmAlbuterol Sulfate 90 mcg/actuation HFA aerosol yqubainFcoxgqmzpemy6QPCMWCNBYVUJTJNm Directed as needed for Shortness Of Breath 8.5305September 2023 9:45amSeptember 2023 11:49amLisinopril 40 mg thasmyIfwncqllfsre34EEFZTlfjl623935Oljvuozzx 2023 9:49amSeptember 2023 11:46amLisinopril 40 mg yzznbzMhdkrpadjksd76RDXXKpeiwFcrlkvwml 10th, 2024 11:46amOctober 2023 5:05pmLisinopril 30 mg sgqjljXtgcwgxjgdxq73ZAZUPfcju Lissett 2023 11:00pmOctober 2023 5:05pmAlbuterol Sulfate 90 mcg/actuation HFA aerosol jpfffjkUqhyzy1PPJEZMDEKJIXVFXIOFQ 4-6 HOURS as needed for Shortness Of Breath8.5305September 2023 11:49amComplies with drug therapyLisinopril 40 mg glcozmApwmpvdxwzdx62PRBBGujqfClvwbyd 9th, 2024 5:05pm March 20, 2024 1:30pmFurosemide 20 mg sbxmmaVgduzxfbjepn63KILHLyklk36536Pdyo 2024 11:00pmJune 2024 10:20kfPjkutekrlsv-Ymbmlxkji-Adeigwsh (Trelegy Ellipta) 200-62.5-25 mcg blister with vondahBnkhvi7ZDNKCBYWWUEQHJkfja40950Rtq 2024 11:00pmComplies with drug therapyDoxazosin 4 mg bxclweImenoq3XTYZ Whinh141Hxorlvrrf 2024 11:00pmComplies with drug therapyIsosorbide Mononitrate 30 mg tablet extended release 24 hrActiveMGPOAugust 2024 11:00pmComplies with drug therapyIsosorbide Mononitrate 60 mg tablet extended release 24 hrActiveMGPOAugust 2024 11:00pmComplies with drug therapy Lisinopril 30 mg ofomqoIgpwxhzyngji70OAAVXlthi56607Iogo 2023 11:30amJuly 2023 3:47pmAdd to Lisinopril 20mg (total 30mg/day)Lisinopril 10 mg tablet Ajktzybsfych29KAADYtwzq57189Nlyc 2023 11:00pmJuly 2023 10:35amTake w/ 20mg Lisinopril for total of 30mg qdLisinopril 30 mg eqvmmpUiyrckvskpwd28YKPN Zosij29532Bsuh 2023 3:47pmJuly 2023 10:36amAmlodipine 2.5 mg tablet Discontinued2.9WBFHMtpwa47357Rgrrosud 2023 12:00amMarch 2024 11:20am Azithromycin 250 mg pgiczoFpiwywlugmxi040TPBN.FVTVIQW271Brxzc 2024 11:00pm November 24, 2024 10:00am2 tabs on first day followed by 1 tab on days 2-5 Immunizations Immunization Event Date Not Given Reason Dose Number Sales Account Director Lot Number Reason(s) Given Vaccine Information Statement (VIS) Detail Administration Location COVID-19 mRNA Digiboohossein (panOpen) August 16 COVID-19 mRNA TouchOne Technologyirhossein (panOpen)September 07OVID-19 mRNA [employer] - Amnio[employer] (panOpen)March 07, 2021Fluzone TIV High-Dose 65YR+February 19, 2024 [id number] [facility] AzleFluzone TIV High-Dose 65YR+February 23, 2025 [id number] [facility] Azleinfluenza, unspecified formulationOctober 2014influenza, unspecified formulationOcthighlands [facility] 2015influenza, unspecified formulationOctober 2016influenza, unspecified formulationOcthighlands ar[facility] 2017 influenza, unspecified formulationOcthighlands arh regional medical center 2018influenza, unspecified formulationSeptember 2019influenza, unspecified formulationSeptember 2020influenza, unspecified formulationSeptember 2021influenza, unspecified formulationOctober neumococcal Conjugate Vaccine, 13 valentOctober 2014Pneumococcal Polysacc. Vaccine, 23 valentNovember 2008Tetanus, Diphtheria adult, 5 Lf pres free absNovember 2012 Procedures Procedure Date Performed Status CT chest wo con February 23, 2025 1:14pm comp leted Vital Signs Vital Reading Result Reference Range Collection Date/Time Height 61 [in_i] January 27, 2025 9:35djXcqvjt83.10 kgAugust 2024 9:24amBP Dkyxgqow347 mm[Hg]100-140August 2024 9:24amBP Vpvigwvco80 mm[Hg]60-100August 2024 9:24amBMI (Body Mass Index)34.2 kg/f6Fwtggs 2024 9:14rtVwrgio94 [in_i]February 23, 2025 12:76sgLhshrq83.41 kgSeptember 2024 12:29pm Heart Rate66 /kvn44-191Okvxihgdz 2024 12:29pmRespiratory rate24 /zsf16-63 February 23, 2025 12:29pmBP Wavslffv907 mm[Hg]100-140September 2024 12:29pmBP Rxdzjhcee73 mm[Hg]60-100September 2024 12:29pmBMI (Body Mass Index)33.9 kg/n8Plcufjwka 2024 12:53suGaetsp92 [in_i]April 14, 2025 3:32jzBdmkkg37.33 kgNovember 2024 3:26pmHeart Rate65 /fru63-702Bejxywdr 4th, 2025 3:26pmRespiratory rate12 /pgq27-87Regksemw 4th, 2025 3:26pmBP Systolic 136 mm[Hg]100-140November 2024 3:26pmBP Qrngcoeqp56 mm[Hg]60-100November 2024 3:26pmBMI (Body Mass Index)33.8 kg/u1Xfpidbgr2024 3:26pm Advance Directives Advance Directive Response Recorded Date/ Time Advance Directives No November 26 7:48am Insurance Providers Guarantor Nora Marianne Parnell Address [address] [address]Tetknmr Info.Home Phone: Payer Group Member ID Coverage Type Subscriber Relationship to Subscriber Effective Date Expiration Date Medicare [id number] L Pfanner Id: [id number] [address] [address] [facility] [id number] L Pfanner Id: [id number] [address] [address] Home Phone: self Encounters Encounter Location(s) Arrival/Admit Date Discharge/Departure Date Discharge/Departure Disposition Provider(s) Departed Physician/ Provider Office Visit -[facility] [place] January 27, 2025 9:48am January 27, 2025 11:24am Discharged to home care or self care (routine discharge) Vernon Sewell MD Departed Physician/ Provider Office Visit -[facility] February 02, 2025 1:05pm February 02, 2025 1:18pm Discharged to home care or self care (routine discharge) Noble Ferguson DO Departed Physician/ Provider Office Visit -[facility] February 23, 2025 1:21pm February 23, 2025 2:14pm Discharged to home care or self care (routine discharge) Noble Ferguson DO Departed Physician/ Provider Office Visit -[facility] March 11, 2025 10:43am March 11, 2025 11:18am Discharged to home care or self care (routine discharge) Noble Ferguson DO Departed Physician/ Provider Office Visit -[facility] April 14, 2025 3:01pm April 14, 2025 4:19pm Discharged to home care or self care (routine discharge) Noble Ferguson DO Recent Diagnosis Onset Date Admit Date Greater trochanteric bursitis of left hip Unknow [...] 2025 1:21pm History of breast cancer Unknown 2024 1:21pm Hypertension Unknown February 23, 2025 1:21pm Hypothyroidism Unknown February 23, 2025 1:21pm Nicotine dependence, cigarettes, in remission Un known February 23, 2025 1:21pm Obesity Unknown February 23, 2025 1:21pm Assessments Diagnosis Onset Date Resolution Status Admit Date Greater trochanteric bursitis of left hi p acuteAugust 2024 9:48amGreater trochanteric bursitis of right hipacute January 27, 2025 9:48am(HFpEF) heart failure with preserved ejection fraction acuteSept2024 1:21pmASHD (arteriosclerotic heart disease)acute February 23, 2025 1:21pmChronic bronchitisacuteSept2024 1:21pm Chronic kidney diseaseacuteSept2024 1:21pmHistory of breast cancer acuteSept2024 1:21pmHypertensionacuteSept2024 1:21pm HypothyroidismacuteSept2024 1:21pmNicotine dependence, cigarettes, in remissionacutept2024 1:21pmObesityacuteSept2024 1:21pm Plan of Treatment Author Noble [facility] 8:41pmThis patient is stable without activity related chest pain, dyspnea or lightheadedness. I instructed them to continue exercise at least 3x weekly and consume a low salt, low fat, high fiber diet. I instructed them to continue secondary prevention measures in reducing risks for recurrent events. LHC: PCI/stent RCA, 70% LCx, 70% distal LAD - 08/2018, Stress testing w/o ischemia - 11/2023, LHC: PCI/stent mid LCx - 11/2024 RHC w/ normal pressures - 11/2024 Continue Imdur, Metoprolol, Lisinopril without interruption I have instructed this patient on a low salt diet, exercise and daily weights. I have instructed them to notify the office for any on any unexpected weight gain > 3lbs and /or increased dyspneaon exertion, difficulty breathing during sleep, worsening lower [...] the correct procedure for obtaining home BP measurements:? - rest for 5 minutes w/o talking. - positioned w/ feet on floor and arms supported. - average best 2/3 readings w/ goal < 135/85. - update office w/ home readings in 2 weeks. Continue Imdur, Lisinopril, Metoprolol and Doxazosin without interruption Low dose Amlodipine resulted in edema Reduced Doxazosin to 4mg due to night time urinary incontinence Instructed to continue abstinence. They are aware of the hazards associated with tobacco use, including but not limited to respiratory infections, vascular disease and cancers. She is not a candidate for LDCT. I have instructed this patient on a low-fat, high-fiber diet.?? I have also instructed them to reduce calories, portions sizes, sweet drinks and snacks.?? I have also recommended they exercise for [...] concerns. s/p lumpectomy followed by radiation therapy Future Tests Future scheduled test information is unavailable Pending Tests Test Name Ordered Date Scheduled Date XR hip BI w PEL1V January 26, 2025 7:17am Future Visits Future appointment information is unavailable Future Procedures Future procedure information is unavailable Future Medications Future medication information is unavailable Patient Instructions Patient instructions are unavailable
--- OUTSIDE RECORDS SUMMARY | 2025-04-15 14:27 | XMS_ITS | Clinical Summary ---
Author Organization [facility] Address [facility] [id number] [address] [place] [address] Care Team Providers Care Wedding Transportation Driver Name Role Phone Noble Ferguson DO Primary Care Provider [phone] Allergies Active AllergyReactionsCriticalityNoted DateCommentsPenicillinsAnaphylaxis,Hives High2Sulfa (Sulfonamide Antibiotics)ZyikBtn5611/12/2014 Medications MedicationSigDispense QuantityRefillsLast FilledStart DateEnd DateStatus lisinopriL (PRINIVIL,ZESTRIL) 20 mg tablet Take 1 tablet (20 mg total) by mouth in the morning.Active amLODIPine (NORVASC) 10 mg tablet Take 1 tablet (10 mg total) by mouth in the morning.Active levothyroxine (SYNTHROID, LEVOTHROID) 75 MCG tablet Take 1 tablet (75 mcg total) by mouth in the morning.Active isosorbide mononitrate (IMDUR) 60 mg 24 hr tablet Take 1 tablet (60 mg total) by mouth daily.Active aspirin 81 mg Take 1 tablet (81 mg total) by mouth in the morning.Active atorvastatin (LIPITOR) 40 mg tablet Take 1 tablet (40 mg total) by mouth nightly.Active temazepam (RESTORIL) 30 mg capsule Take 1 capsule (30 mg total) by mouth nightly.Active inulin (FIBER GUMMIES) 2 gram tablet,chewable Chew 1 tablet and swallow daily.Active albuterol (PROVENTIL HFA;VENTOLIN HFA) 90 mcg/actuation inhaler Inhale 2 puffs every 6 (six) hours as needed for wheezing.Active acetaminophen (TYLENOL EXTRA STRENGTH) 500 mg tablet Take 2 tablets (1,000 mg total) by mouth every 6 (six) hours as needed for pain. Active calcium carb and citrate-vitD3 (CITRACAL SLOW RELEASE) 600 mg calcium- 500 units tablet extended release Take 2 tablets by mouth in the morning.Active MECOBALAMIN, VITAMIN B12, INJ Inject 1 INJECTION as directed every 30 (thirty) days.Active vitamin C/biotin (RSCZ-RHYQ-YIRWK, VIT C-BIOTIN, ORAL) Take 2 tablets by mouth daily.Active TRELEGY ELLIPTA 200-62.5-25 mcg blister with device Inhale 1 puff in the morning.08/09/2022ctive Active Problems ProblemNoted DateDiagnosed FxczQzbkgnauo84/22/2023owel lfzhgngpysm44/22/2023 Breast jobkwl6008/30/2022oronary artery njxdvfg7908/30/20222957Cctjdkgdwfcosl25/22/2023 Higgrwqbxndb29/22/2023Necrotizing elhmpczsn12/08/2022 Immunizations ImmunizationAdministration DatesNext DueInfluenza High Dose Preservative Free IM 03/27/2017,03/21/2016Influenza, Trivalent, Bkyqphfcqn63/01/2018 Family History Medical HistoryRelationNameCommentsStrokeBrotherHeart attackFatherColon cancer MotherBreast cancerSister 1DementiaSister 1Breast cancerSister 2Heart disease Sister 2CancerSonLung cancerSonRelationNameStatusCommentsBrotherOtherFather DeceasedMotherDeceasedSister 1AliveSister 2AliveSonDeceased (Age 58) Social History Tobacco UseTypesPacks/DayYears UsedDateSmoking Tobacco: FormerCigarettesQuit: 2007Smokeless Tobacco: NeverAlcohol UseStandard Drinks/WeekCommentsNot Currently 0 (1 standard drink = 0.6 oz pure alcohol)ChildcareAnswerDate RecordedChildcare Cbwxlav1611/20/2018EmploymentAnswerDate NmfyhuwcBlnqrtpdllXtexpcz16/12/2019 CommentsNoSex and Gender InformationValueDate RecordedSex Assigned at BirthNot on fileLegal GdqHxffxa03/06/2015 11:52 AM EDTGender IdentityNot on file Sexual OrientationNot on file Last Filed Vital Signs Vital SignReadingTime TakenCommentsBlood Ftthaasv530/5804/ 10:58 AM EDT Pljjy71722/ 10:55 AM UNNKieiqggrciv15.8 ??C (98.2 ??F)11/21/2021 12:35 PM EDTRespiratory Vhmk989511/21/2021 12:35 PM EDTOxygen Hrrwuafoqy93%11/21/2021 12:35 PM EDTInhaled Oxygen Concentration--Fxhyae70 kg (183 lb)10/06/2022 10:55 AM EDT Dxawqc362.9 cm (5' 1 )10/06/2022 10:55 AM EDTBody Mass Index34.58010/06/2022 10:55 AM EDT Plan of Treatment Health MaintenanceDue DateLast DoneCommentsDepression Rvtqwduio64/07/1950Tobacco Syhajtdtf44/07/1950DTaP,Tdap and Td Vaccines (1 - Tdap)1957Zoster (Shingles) Vaccine (1 of 2)1957Fall Risk Dwpejvanv80/07/2003RSV ( or age 60+ yrs) (1 - 1-dose 75+ series)2013COVID-19 Vaccine ( - season)509/, 09/07/2020, 08/16/2020Influenza Yyczwom8202/09/2025 03/06/2022, 03/11/2018, 03/27/2017, Additional history exists Goals GoalPatient Goal TypeAssociated ProblemsRecent ProgressPatient-Stated?Author <enter goal here> Yanna Cortes LSW Note: Evaluation of progress towards goal: discharge home vs SNF. Medical Devices Not on file Insurance Advance Directives * Full Code (Latest Code Status on File) Date ActivatedDate InactivatedComments11/16/2021 2:53 AM11/21/2021 7:25 PM Care Teams Team MemberRelationshipSpecialtyStart [place] [address] [place] [id number] PCP - GeneralInternal Medicine06/11/21
--- OUTSIDE RECORDS SUMMARY | 2025-04-15 14:27 | XMS_ITS | Clinical Summary ---
Author Organization [facility] Address [address] [address] Care Team Providers Care Forestry Extension Specialist Name Role Phone Noble Ferguson DO Primary Care Provider [phone] Allergies Active AllergyReactionsCriticalityNoted DateCommentsPenicillinsAnaphylaxis,Hives ,Other,KesheflItwg23/04/2015Sulfa (Sulfonamide Antibiotics)Hives,Other,Rash, JdifbfcRac80/04/2015 Medications MedicationSigDispense QuantityRefillsLast FilledStart DateEnd DateStatus levothyroxine (Synthroid, Levoxyl) 88 mcg tablet 1 (one) time each day at the same time.Active aspirin 81 mg EC tablet Take 1 tablet by mouth in the morning.Active uctthttuwci-kcowmxcyl-lpuqeqtb 200-62.5-25 mcg blister with device INHALE 1 PUFF ONCE DAILY08/09/2022ctive temazepam (Restoril) 30 mg capsule TAKE ONE CAPSULE BY MOUTH ONCE DAILY AT XFZEGDT5309/24/2020ctive cyanocobalamin (Vitamin B-12) 1,000 mcg/mL oral liquid 1 (one) time.Active lisinopril 20 mg tablet Indications:Benign hypertensive heart disease with heart failure (CMS/HCC)Take 1 tablet (20 mg) by mouth in the morning and at bedtime. 180 tablet /ctive albuterol 90 mcg/actuation inhaler Inhale 1 puff in the morning, afternoon, and at bedtime.Active metoprolol succinate XL (Toprol-XL) 25 mg 24 hr tablet Indications:Coronary artery disease involving [place] coronary artery of [place] heart without angina pectorisTAKE 1/2 TABLET BY MOUTH DAILY DIRECTED 15 tablet 1005Active doxazosin (Cardura) 4 mg tablet Indications:Primary hypertensionTake 2 tablets (8 mg) by mouth at bedtime. 180 tablet ctive atorvastatin (Lipitor) 40 mg tablet Indications:Coronary artery disease, unspecified vessel or lesion type, unspecified whether angina present, unspecified whether [place] or transplanted heartTAKE 1 TABLET (40 MG) BY MOUTH IN THE MORNING. 30 tablet ctive isosorbide mononitrate ER (Imdur) 120 mg 24 hr tablet Indications:Coronary artery disease involving [place] coronary artery of [place] heart without angina pectoris,Primary hypertensionTake 1 tablet (120 mg) by mouth in the morning. Do not crush or chew. 90 tablet ctive pantoprazole (ProtoNix) 20 mg EC tablet Indications:Coronary artery disease involving [place] coronary artery of [place] heart without angina pectorisTake 1 tablet (20 mg) by mouth before breakfast. Do not crush, chew, or split. 90 tablet ctive isosorbide mononitrate ER (Imdur) 30 mg 24 hr tablet Indications:Chest pain, unspecified typeTake 1 tablet (30 mg) by mouth in the morning. Do not crush or chew. To be taken with a 60mg tabletfor a total of 90mg daily 90 tablet ctive isosorbide mononitrate ER (Imdur) 60 mg 24 hr tablet Indications:Chest pain, unspecified typeTake 1 tablet (60 mg) by mouth in the morning. Do not crush or chew. To be taking w a 30 mg tablet for a total of 90mg daily 90 tablet ctive clopidogrel (Plavix) 75 mg tablet Indications:CAD in [place] arteryTake 1 tablet (75 mg) by mouth in the morning. 90 tablet ctive Active Problems ProblemNoted DateDiagnosed DateCAD in [place] lietvw7311/21/2024 Assessment & Plan (11/22/2024 1:44 AM EDT): - Severe 80% stenosis in the mid circumflex reduced to 0% by a Synergy XD drug- eluting stent -Previous stent to the RCA - DAPT for 12 months, then aspirin 81 mg daily for life. Statin therapy for life. -Follow-up A1c and lipids Former tobacco use09/26/2024Restrictive lung edppews4609/26/2024hronic diastolic congestive heart ffkcmsf6809/26/2024 Assessment & Plan (11/22/2024 1:44 AM EDT): Not in exacerbation Shortness of aunmsa5209/26/2024hest pain12/31/2023isorder of nail12/31/2023Heart failure with preserved ejection fraction, borderline, class III12/31/2023Lower extremity edema12/31/2023cute on chronic heart failure with preserved ejection fraction (HFpEF)11/23/20232222Qjxto00/14/2024History of radiation knucsysq81/14/2024 Bfdxzspiivqbii93/14/2024 Assessment & Plan (11/22/2024 1:44 AM EDT): Continue Synthroid Nonhealing surgical wound11/23/2023ernicious qygvod1111/23/20233433Viaatdao91/14/2024 Stage 3a chronic kidney vlotjrk5711/23/2023Open wound of right qijeme0004/18/2023Hx of heart artery stent04/11/20236959Pqztovqrd25owel obstruction oronary artery egahxyi6108/30/20223664Ebtkfsbcailclb50/22/2023 04/11/20236067Mbnlvbdstabf64reast vqdodq56/06/2022 Necrotizing auwzccrtf85yspnea on dulgfvtq04/06/2022 Status post percutaneous transluminal coronary wysrfdqnubu46 Chronic obstructive lung Assessment & Plan (11/22/2024 1:44 AM EDT): - Not in exacerbation, continue home inhalers History of breast jbstly91 Encounters DateTypeDepartmentCare RzszImhfqepyfoa00/15/2025[facility] [address] [place] [address] Aura Candelario MA CAD in [place] arteryfrom Last 3 Months Family History Medical HistoryRelationNameCommentsHypertensionBrotherNo Known ProblemsFatherNo Known ProblemsMotherRelationNameStatusCommentsBrotherDeceasedFatherDeceased MotherDeceased Social History Tobacco UseTypesPacks/DayYears UsedDateSmoking Tobacco: FormerCigarettesQuit: 2008Smokeless Tobacco: Never Tobacco Cessation:Counseling Given: Not Answered Alcohol UseStandard Drinks/WeekCommentsNever0 (1 standard drink = 0.6 oz pure alcohol)[facility] UtilitiesAnswerDate RecordedIn the past 12 months has the electric, gas, oil, or water [employer] threatened to shut off services in your home?No 11/21/2024Humiliation, Afraid, Rape, and Kick questionnaireAnswerDate Recorded Within the last year, have you been afraid of your partner or ex-partner?No 11/21/2024Emotionally AbusedNot on file11/21/2024Physically AbusedNot on file 11/21/2024Sexually AbusedNot on file11/21/2024Overall Financial Resource Strain (CARDIA)AnswerDate RecordedHow hard is it for you to pay for the very basics like food, housing, medical care, and heating?Somewhat hard11/21/2024UT Safety & EnvironmentAnswerDate RecordedFear of Current or Ex-PartnerNot on file08/02/2023 Emotionally AbusedNot on file08/02/2023hysically AbusedNot on file08/02/2023 Sexually AbusedNot on file08/02/2023hysically or Sexually AbusedNot on file 08/02/2023TransportationAnswerDate RecordedIn the past 12 months, has lack of transportation kept you from medical appointments or from getting medications?No 11/21/2024Lack of Transportation (Non-Medical)Not on file11/21/2024Housing Stability Vital SignAnswerDate RecordedIn the last 12 months, was there a time when you were not able to pay the mortgage or rent on time?No11/21/2024Number of Times Moved in the Last YearNot on file11/21/2024t any time in the past 12 months, were you homeless or living in a custodial (including now)?No11/21/2024 Hunger Vital SignAnswerDate RecordedWithin the past 12 months, you worried that your food would run out before you got the money to buymore.Never true11/21/2024 Ran Out of Food in the Last YearNot on file11/21/2024CommentsUnknownSex and Gender InformationValueDate RecordedSex Assigned at IcyyoQnzknp42/13/2025 11:45 AM EDTLegal ZitTzekac05/30/2022 12:13 AM EDTGender IdentityFemale 11/21/2024 11:45 AM EDTSexual OrientationHeterosexual or Dmhaclnj10/13/2025 11:45 AM EDT Last Filed Vital Signs Vital SignReadingTime TakenCommentsBlood Yumlquvv765/64012/29/2024 1:09 PM EDT Nshth6874/21/2025 1:09 PM DJZMgvatjkguko08.3 ??C (97.3 ??F)11/22/2024 8:00 AM EDTRespiratory Kvkw282611/22/2024 8:00 AM EDTOxygen Jnayodavem57%12/29/2024 1:09 PM EDTInhaled Oxygen Concentration--Clatec63.6 kg (180 lb)12/29/2024 1:09 PM EDT Yljodu281.9 cm (5' 1 )12/29/2024 1:09 PM EDTBody Mass Index34.01012/29/2024 1:09 PM EDT Plan of Treatment Health MaintenanceDue DateLast DoneCommentsMedicare Annual Wellness (AWV) 1940Depression Qvbwulmpr32/07/1950Pneumococcal Vaccine: 50+ Years (1 of 2 - PCV)1957dult Mqnaywi2103/17/1960Zoster Vaccines (1 of 2)1988COVID- 19 Vaccine (4 - season)/, 09/07/2020, 08/16/2020 Influenza Vaccine (#1)/03/2024, 03/06/2022, 03/11/2018, Additional history existsFall Risk Bnqpomwym10/HIB VaccinesAged OutNo longer eligible based on patient's age to complete this topicHPV VaccinesAged OutNo longer eligible based on patient's age to complete this topicIPV Vaccines Aged OutNo longer eligible based on patient's age to complete this topic Meningococcal B VaccineAged OutNo longer eligible based on patient's age to complete this topicMeningococcal VaccineAged OutNo longer eligible based on patient's age to complete this topicRotavirus VaccinesAged OutNo longer eligible based on patient's age to complete this topic Medical Devices ImplantedTypeAreaManufacturerDevice IdentifierShelf Expiration DateModel / Serial / Marylin Issa Mr 2.25 X 24 - [id number] Implanted:Qty: 1 on 11/21/2024 by [facility] El[facility] Stent[facility]: [employer] [id number]/12/[id number] / / [id number] Insurance Advance Directives * Full Code (Latest Code Status on File) Date ActivatedDate InactivatedComments11/21/2024 9:51 PM11/22/2024 4:43 PM Care Teams Team MemberRelationshipSpecialtyStart DateEnd Date Noble Ferguson DO [address] [place] [address] PCP - Jqlyilr77/31/23
--- OUTSIDE RECORDS SUMMARY | 2025-04-15 14:27 | XMS_ITS ---
Author Organization [facility] Address [address] [address] Care Team Providers Care Sizing Machine And Drier Operator Name Role Phone Noble Ferguson DO Primary Care Provider [phone] Active Problems ProblemNoted DateDiagnosed DateCAD in [place] lreiqg6511/21/2024 Assessment & Plan (11/22/2024 1:44 AM EDT): - Severe 80% stenosis in the mid circumflex reduced to 0% by a Synergy XD drug- eluting stent -Previous stent to the RCA - DAPT for 12 months, then aspirin 81 mg daily for life. Statin therapy for life. -Follow-up A1c and lipids Former tobacco use09/26/2024Restrictive lung ndziuev7309/26/2024hronic diastolic congestive heart uycymed9009/26/2024 Assessment & Plan (11/22/2024 1:44 AM EDT): Not in exacerbation Shortness of oiofgb7409/26/2024hest pain12/31/2023isorder of nail12/31/2023Heart failure with preserved ejection fraction, borderline, class III12/31/2023Lower extremity edema12/31/2023cute on chronic heart failure with preserved ejection fraction (HFpEF)11/23/20231514Qagqo08/14/2024History of radiation ipzodfjs79/14/2024 Jzeiwqjbaealyl56/14/2024 Assessment & Plan (11/22/2024 1:44 AM EDT): Continue Synthroid Nonhealing surgical wound11/23/2023ernicious vfcpmn0111/23/20235184Dhudqkci06/14/2024 Stage 3a chronic kidney zmubdrd5611/23/2023Open wound of right xfxhij5404/18/2023Hx of heart artery stent04/11/20232517Byhumhvsc92owel obstruction oronary artery mbqrbvd2108/30/20220666Kbhrescppdfndg11/22/2023 04/11/20236206Ecntxbgoqker41reast woqxdc87 Necrotizing cepnhvvpc33yspnea on bybmzmde41 Status post percutaneous transluminal coronary qsobcxbdvud97 Chronic obstructive lung byytdum73 Assessment & Plan (11/22/2024 1:44 AM EDT): - Not in exacerbation, continue home inhalers History of breast yxmmsh46 Current Treatment and Therapy Plans No current plan information found. Past Treatment and Therapy Plans No past plan information found. Lifetime Dose Tracking * ChemicalLifetime DoseAutomatic EntryManual EntryFluoro Time26.34 minutes0 bdagcge77.34 minutesAir Kerma1,712.73 mGy0 mGy1,712.73 mGy
--- OUTSIDE RECORDS SUMMARY | 2025-04-15 14:27 | XMS_ITS | Clinical Summary ---
Author Organization [facility] Address [address] [place] [address] Phone Care Team Providers Care Manager Editorial Name Role Phone Noble Ferguson DO Primary Care Provider [phone] Social History Tobacco UseTypesPacks/DayYears UsedDateSmoking Tobacco: Never Assessed CommentsUnknownSex and Gender InformationValueDate RecordedSex Assigned at Not on fileLegal XnuFmgyif30/24/2024 10:40 AM EDTGender IdentityNot on file Sexual OrientationNot on file Plan of Treatment Health MaintenanceDue DateLast DoneCommentsLipid Panel1938Medicare Annual Wellness Visit (AWV)1938DTaP/Tdap/Td Vaccines (1 - Tdap)1960 Pneumococcal Vaccine (1 of 1 - PCV)1988Zoster Vaccines (1 of 2)1988 Bone Density Scan2003RSV High Risk: (Elderly (60+) or Population) (1 - 1-dose 75+ series)2013Influenza Vaccine (#1)5COVID-19 Vaccine (1 - 2024- season)2025HIB VaccinesAged OutNo longer eligible based on patient's age to complete this topicHPV VaccinesAged OutNo longer eligible based on patient's age to complete this topicHepatitis A VaccinesAged OutNo longer eligible based on patient's age to complete this topicHepatitis B VaccinesAged OutNo longer eligible based on patient's age to complete this topic IPV VaccinesAged OutNo longer eligible based on patient's age to complete this topicMeningococcal VaccineAged OutNo longer eligible based on patient's age to complete this topicRotavirus VaccinesAged OutNo longer eligible based on patient's age to complete this topic Insurance Care Teams Team MemberRelationshipSpecialtyStart DateEnd Date Noble Ferguson DO [address] [place] [address] PCP - GeneralInternal Medicine12/03/23
--- OUTSIDE RECORDS SUMMARY | 2025-04-15 14:28 | XMS_ITS | Patient Health Record ---
Author Organization [facility] [place] Address [address] [place] [address] Care Team Providers Care Continuous Improvement Analyst Name Role Phone Noble Ferguson DO Primary Care Provider Marleny Moore Unavailable [phone] Vickey Waldrop Unavailable [phone] Allergies Allergen (clinical drug ingredient) Drug/Non Drug Allergy documented on EMR Reaction Allergy Type Onset Date Status Substance with sulfonamide s tructure and antibacterial mechanism of action (substance) Sulfa Antibiotics hives Drug Allergy ActivePenicillinanaphylaxisDrug AllergyActive Results Component Value Reference Range Notes ITP Reviewed date:12/04/2024 04:04:56 PM Interpretation: Performing Lab: Notes/Report: Source Facility: [place] [address] Cardiac Rehab Report Signed Patient: NORA GIBBS MR#: [id number] : 1940 Acct:[id number] Age/Sex: 84 / F ADM Date: 12/03/24 Loc: CR Attending Dr: BALA ROBLES Ordering Physician: Vickey Waldrop D.O. Date of Service: 12/03/24 Procedure(s): ITP Accession Number(s): [id number] cc: [facility] Test Date: 2024-12-03 Pat Name: NORA GIBBS Department: Room: - Gender: Female Sales Trainee: : 1940 Requested By: Vickey Waldrop Order Number: [id number] Chase MD: Vickey Waldrop Interpretive Statements Okay to proceed with outlined treatment plan. Electronically Signed On 12-04-2024 15:30:39 EDT by Vickey Waldrop Dictated By: Vickey Waldrop D.O. Signed By: 12/04/24 1531 12/04/24 153 DD/ 1425 TD/TT: Cadastral Engineer: Reason For Referral No Information Medications Medication SIG (Take, Route, Frequency, Duration) Notes Start Date End Date Status amLODIPine Besylate 10 MG 1 tablet Orally Once a day ActiveAlbuterol Sulfate HFA 108 (90 Base) MCG/ACT2 PUFF INHALED EVERY 4-6 HOURS NEEDED FOR SHORTNESS OF BREATH FOR 30 DAYS Inhalation; Duration: 30 Days ActiveTrelegy Ellipta 200-62.5-25 MCG/ACT1 puff Inhalation Once a dayActiveMulti Adult Gummies -as directed OrallyActiveTemazepam 30 MG1 capsule at bedtime as needed Orally Once a dayActiveMetoprolol Succinate ER 25 MGTAKE 1/2 TABLET BY MOUTH DAILY DIRECTED Oral; Duration: 30 DaysActiveDoxazosin Mesylate 2 MGTAKE 1.5 TABLETS (3 MG) BY MOUTH AT BEDTIME. Oral; Duration: 30 DaysActive Atorvastatin Calcium 40 MGTAKE 1 TABLET (40 MG) BY MOUTH IN THE MORNING. Oral; Duration: 30 DaysActiveAspirin 81 MG1 tablet Orally Once a dayActiveLisinopril 20 MGOral; Duration: 30 DaysActiveLevothyroxine Sodium 88 MCGTAKE ONE TABLET BY MOUTH ONCE DAILY ON AN EMPTY STOMACH Oral; Duration: 30 DaysActiveIsosorbide Mononitrate ER 60 MGOral; Duration: 30 DaysActiveIsosorbide Mononitrate ER 30 MG Oral; Duration: 30 DaysActive Immunizations Vaccine Route Administration Date Status Comme nts Flu, Fluad (71427) 65 yrs + High Dose Seasonal (5125-8657) Unknown 02/19/2024 Administered SARS-COV-2 (COVID 19 Pfizer 30mcg/0.3mL)Uwfolut2603/07/2021dministered Social History Tobacco Use: Social History Observation Description Date Details (start date - stop date) Former Smoker NA - NA Tobacco Control (Standard) Question Answer Notes Tobacco use: Former smoker How long has it been since you last smoked?Greater than 10 yearsAdditional Findings: Tobacco pfc-bnfxDi-ialbj cigarette smoker (20-30/day) Problems Problem Type SNOMED Code ICD Code Onset Dates Problem Status W/U Status Risk Notes Problem COPD - Chronic obstr uctive pulmonary disease (67891645) COPD (chronic obstructive pulmonary disease) (J44.9) ActiveconfirmedProblemCoronary artery disease (13956607)CAD (coronary artery disease) (I25.10)ActiveconfirmedProblemPernicious anemia (33424552)Pernicious anemia (D51.0)ActiveconfirmedProblemRestrictive lung disease (58344934) Restrictive lung disease (J98.4)ActiveconfirmedProblemEx-tobacco user (finding) (824955685)History of tobacco abuse (Z87.891)ActiveconfirmedProblemMalignant neoplasm of female breast (995150418)Adenocarcinoma of right breast (C50.911) ActiveconfirmedProblemDiastolic heart failure (308381340)Heart failure with preserved left ventricular function (HFpEF) (I50.30)Activeconfirmed Vital Signs Heart Rate 65 /min 09/22/2024 Vopkseigeym73.8 degrees Rkdmpzhchx01/14/2025Respiratory Rate18 /min09/22/2024 Blood pressure hziqxwxfg10 mm Hg09/22/20240383Giotinrt37 %09/22/20240242Xhpmxo29 in 09/22/2024lood pressure xfiswhrx130 mm Hg09/22/20240217Ekeuhv248.6 lbs09/22/2024MI 35.44 kg/m209/22/2024 Encounters Encounter Location Date Provider Diagnosis [facility] [address] [place] [address] 09/22/2024 Vickey Waldrop COPD (chronic obstructive pulmonary disease) J44.9 ; Restrictive lung disease J98.4 ; Adenocarcinoma of right breast C50.911 ; CAD (coronary artery disease) I25.10 ; Pernicious anemia D51.0 ; Heart failure with preserved left ventricular function (HFpEF) I50.30 and History of tobacco abuse Z87.891 [facility] [address] [place] [address] 09/08/2024 Vickey Waldrop Assessments Encounter Date Diagnosis (ICD Code) Assessment Notes Treatment Notes Treatment Clinical Notes Section Notes 09/22/2024 COPD (chronic obstructive pulmon silvia disease) (ICD-10 - J44.9) History of COPD. Has been on triple inhaled therapy (ICS/LABA/LAMA) for years, with worsening dyspnea over past year. Repeat spirometry showed actual improvement from 2023 compared to 2018 - this argues against COPD as the main cause for her dyspnea. She has developed a concomitant restriction (TLCdropped to ~77%) - there is no evidence of ILD on chest imaging, so this would be best explained byunderying cardivascular disease. There is also an issue with cost - she is subsiding on [employer] samples, something I am unable to do(I cannot give patients samples for long-term maintenance). [...] to recommend - she may return PRN. 09/22/2024Restrictive lung disease (ICD-10 - J98.4) TLC has dropped from 96% to 77% from 2018 to 2023. She has only had a 14# weight gain from 05/19/2019 (174#) to today (188#) - a 14# weight gain would not cause this much of a change. DLCO is very lowat 32%, but she was unable to perform [...] presence of unremarkable stress testing) is warranted. 09/22/2024denocarcinoma of right breast (ICD-10 - C50.911) s/p lumpectomy and radiation. No evidence of radiation pneumonitis on chest CTA 11/30/2023. 09/22/2024AD (coronary artery disease) (ICD-10 - I25.10)09/22/2024Pernicious anemia (ICD-10 - D51.0)09/22/2024Heart failure with preserved left ventricular function (HFpEF) (ICD-10 - I50.30)09/22/2024History of tobacco abuse (ICD-10 - Z87.891) 1.5ppd [...] End Date [place]IC[place] [address] [place] [address] [id number] Evan Gibbsf - patient is the ufrpqzq85 [address] [address] [place] [id number], Betty Self - patient is the weqodlu87 2023 Medical (General) History Medical History History ICD [...] lung disease J98.4 Surgical History Surgery Date(Month/Year) hysterectomy cataract removalappendectomycoronary angioplasty stentI&D right glutealjoint replacements -- left knee, left hip, right hipright breast oscjpdskvx4078 tonsillectomy and adenoidectomyright breast I&D03punch biopsy right ymhnoe0109/08/2022olostomy and reversal of colostomy due to bowel fgvfolnupgv1270 cervical fusion/laminectomyventral hernia repairHospitalization History Reason Date(Month/Year) see above
--- OUTSIDE RECORDS SUMMARY | 2025-04-15 14:28 | XMS_ITS | Clinical Summary ---
Author Organization [facility] Address [facility] [place] [address] Care Team Providers Care Veneer Splicer Name Role Phone Noble Ferguson DO Primary Care Provider [phone] Allergies Active AllergyReactionsCriticalityNoted XxwmPcsfcabgFjwolkicyzpYublubt16/04/2015 Sulfa (Sulfonamide Antibiotics)Pmwghco3011/12/2014 Medications MedicationSigDispense QuantityRefillsLast FilledStart DateEnd DateStatus lisinopril (ZESTRIL, PRINIVIL) 20 mg tablet Take 20 mg by mouth once daily.Active albuterol HFA (VENTOLIN HFA) 90 mcg/actuation inhaler Ventolin HFA 90 mcg/actuation aerosol inhalerActive aspirin, enteric coated (ASPIRIN, ENTERIC COATED) 81 mg EC tablet Take 81 mg by mouth q 24 HR. Active atorvastatin (LIPITOR) 40 mg tablet Take 40 mg by mouth once daily. Active amLODIPine (NORVASC) 10 mg tablet Take 10 mg by mouth once daily.Active temazepam (RESTORIL) 30 mg cap Take 30 mg by mouth daily at bedtime.09/24/2020ctive ketoconazole (NIZORAL) 2 % shampoo APPLY WASH TO SCALP EVERY OTHER DAY. LET SIT FOR 5 MINUTES BEFORE RINSING. 08/27/2020ctive fluocinonide (LIDEX) 0.05 % external solution APPLY TO SCALP NEEDED FOR LWXKFAAHL70/19/2021ctive inulin (FIBER GUMMIES ORAL) Take by mouth.Active acetaminophen (TYLENOL EXTRA STRENGTH) 500 mg tablet Take 500 mg by mouth every 6 hours as needed.Active CALCIUM ORAL Take 1,200 mg by mouth once daily.Active isosorbide mononitrate ER (IMDUR) 60 mg 24 hr tablet Take 60 mg by mouth once daily.Active clopidogrel (PLAVIX) 75 mg tablet take 1 tablet (75 mg) by mouth in the morning.Active pantoprazole DR (PROTONIX) 20 mg tablet TAKE 1 TABLET (20 MG) BY MOUTH BEFORE BREAKFAST. DO NOT CRUSH, CHEW, OR SPLIT. Active metoprolol succinate ER (TOPROL XL) 25 mg 24 hr tablet TAKE 1/2 TABLET BY MOUTH DAILY DIRECTEDActive levothyroxine (SYNTHROID) 88 mcg tablet Take 88 mcg by mouth daily before breakfast.3Active cyanocobalamin (VITAMIN B-12) 100 mcg tab Take 100 mcg by mouth.Active ascorbic acid/vitamin E/biotin (HAIR, SKIN, NAILS WITH BIOTIN PO) Take by mouth.Active glycopyrrolate-formoterol (BEVESPI AEROSPHERE) 9-4.8 mcg Inhale 2 puffs as instructed two times a day. 1 each 5Active Active Problems ProblemNoted DateDiagnosed DateHistory of breast yycskl4210/19/2015Malignant neoplasm of right female owuvjg5104/14/2015Malignant neoplasm of female breast 11/18/2014 Encounters DateTypeDepartmentCare SctaTpmuqmjadsa17/30/2025 1:00 PM EDTOffice Visit PULMONARY [address] [place] [address] [place] [phone] Karlie Mendez MD Chronic obstructive pulmonary disease, unspecified COPD type (HCC) (Primary Dx); History of tobacco use03/10/2025 12:30 PM EDTProcedure PULMONARY [address] [place] [phone] Zpszyubodt92/30/2025 11:10 AM EDT - 03/10/2025 11:59 PM EDTHospital Encounter Radiology [address] [place] [address] [place] [address] Dyspnea on exertion [R06.09] Discharge Disposition: Home03/10/20254800Lrbkwa25/26/2025H&P External-NonCCF Provider, External, PAHaiderC 03/06/2025Orders Only Cancer Appts [address] [place] [address] Karlie Mendez MD Dyspnea on exertion (Primary Dx)from Last 3 Months Immunizations ImmunizationAdministration DatesNext DueCOVID-19 original vaccine, age 12+ yr, monovalent (Equidate - PURPLE TOP)03/07/2021,09/07/2020,08/16/2020 influenza (HD-IIV3) vaccine, age 65+ yr, high dose, trivalent, PF (FLUZONE HIGH-DOSE)03/27/2017,03/21/2016influenza (aIIV3) vaccine, age 65+ yr, trivalent, PF (FLUAD)03/11/2018 Social History Tobacco UseTypesPacks/DayYears UsedDateSmoking Tobacco: XkcxtxGejkasdkcv067 Smokeless Tobacco: Never Tobacco Cessation:Counseling Given: Not Answered Alcohol UseStandard Drinks/WeekCommentsNo0 (1 standard drink = 0.6 oz pure alcohol)PHQ-2AnswerDate RecordedPHQ-2 skfwu7572Area Deprivation Index AnswerDate RecordedNational Score (1-100), lower number is lower risk86 03/10/2025State Score (1-10), lower number is lower xrje63003/10/2025Data from: https://www.neighborhoodatlas.[facility]/. Last address used for kiscngysmwu[address]03/10/2025CommentsNoSex and Gender Information ValueDate RecordedSex Assigned at BirthNot on fileLegal FilUoekke11/02/2012 9:14 AM ESTGender IdentityNot on fileSexual OrientationNot on file Last Filed Vital Signs Vital SignReadingTime TakenCommentsBlood Edfgvexd878/75003/10/2025 1:04 PM EDT Tqwqe256703/10/2025 1:04 PM RDCEuoztpqledv91.2 ??C (97.1 ??F)03/10/2025 1:04 PM EDTRespiratory Hfai630503/10/2025 1:04 PM EDTOxygen Bzhxpbppgk16%03/10/2025 1:04 PM EDTInhaled Oxygen Concentration--Zxexqu54.6 kg (173 lb 4.5 oz)03/10/2025 1:04 PM EBDDsauiw469.5 cm (5' 2.01 )10/19/2021 12:57 PM EDTBody Mass Index31.69 10/19/2021 12:57 PM EDT Plan of Treatment DateTypeDepartmentCare Team (Latest Contact Info)Owkzjjmfvzz35/16/2025 11:45 AM ESTOffice Visit PULMONARY [address] [place] [address] [place] [address] [place] [address] 3 month follow upHealth MaintenanceDue DateLast DoneCommentsAnxiety Screening 1956Depression Gtwdwebmc47/07/1956DTaP,Tdap,Td Vaccine (1 - Tdap) 1957Pneumococcal Vaccine: 50+ (1 of 1 - PCV)1988Shingrix Vaccine (1 of 2)1988Medicare Annual Wellness Visit06/11/1996Bone Density Screening 2003RSV Vaccine (1 - 1-dose 75+ series)2013dvance Directive Gunozezgpz71/01/2025Covid-19 Vaccine ( - season)509/, 09/07/2020, 1Diabetes Imxzkclvp67/14/687025/, 11/21/2024, 05/17/2023, Additional history existsInfluenza SelfdqfDktkrkdmo12/15/2025, 02/19/2024, 03/06/2022, Additional history exists Procedures Procedure NamePriorityDate/TimeAssociated DiagnosisCommentsEXTERNAL CARDIOLOGY 03/18/2025 3:34 PM EDT SPIROMETRY WITH DILATOR IF LTMRCAAXSUYidpscd62/30/2025 12:38 PM EDT Dyspnea on exertion XR CHEST 2V FRONTAL/IHCLeymhrf27/30/2025 11:23 AM EDT Dyspnea on exertion EXTERNAL HCUDZRX8703/06/2025 3:24 PM EDT EXTERNAL PGRCKZCIB31/26/2025 3:[address] OUTSIDE CD DICOM HMISOV9702/27/2025 BASIC METABOLIC FBGRPKeaxcsn56/04/2019 10:54 AM EST 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, estrogen receptor positive, unspecified laterality, unspecified site of breast (HCC) from Last 3 Months or Most Recently Relevant to Health Maintenance Results * EXTERNAL CARDIOLOGY (03/18/2025 3:34 PM EDT) Narrative Authorizing ProviderResult TypeResult StatusExternal Provider PA-CCARDIOLOGY Final Result * SPIROMETRY WITH DILATOR IF OBSTRUCTED (03/10/2025 12:38 PM EDT)ComponentValue Ref RangeTest MethodAnalysis TimePerformed AtPathologist SignatureFVC PRE (L) 1.62LPULMONARY FUNCTION LABFVC POST (L)1.63LPULMONARY FUNCTION LABFVC PREDICTED (L)2.06LPULMONARY FUNCTION LABFVC LLN (L)1.40LPULMONARY FUNCTION LAB FVC ULN (L)2.75LPULMONARY FUNCTION LABFEV1 PRE (L)0.87LPULMONARY FUNCTION LAB FEV1_POST (L)0.87LPULMONARY FUNCTION LABFEV1 PREDICTED (L)1.57LPULMONARY FUNCTION LABFEV1 LLN (L)1.04LPULMONARY FUNCTION LABFEV1 ULN (L)2.06LPULMONARY FUNCTION LABFEV1/FVC PRE (%)54%PULMONARY FUNCTION LABFEV1/FVC POST (%)53% PULMONARY FUNCTION LABFEV1/FVC PREDICTED (%)78%PULMONARY FUNCTION LABFEV1/FVC LLN (%)64%PULMONARY FUNCTION NUVQCH11% PRE (L/S)1.63L/SPULMONARY FUNCTION LAB FEF25% POST (L/S)1.55L/SPULMONARY FUNCTION QCHGZC37% PRE (L/S00.09L/SPULMONARY FUNCTION KRZNVX82% POST (L/S)0.09L/SPULMONARY FUNCTION WMXWIH67% PREDICTED (L/S)0.25L/SPULMONARY FUNCTION PUGEYB65% LLN (L/S)0.08L/SPULMONARY FUNCTION HTXYHW13% ULN (L/S)0.81L/SPULMONARY FUNCTION ZMLFNM70-90% PRE (L/S)0.24L/S PULMONARY FUNCTION MWBBEZ08-92% POST (L/S)0.25L/SPULMONARY FUNCTION BHHHJO22- 75% PREDICTED (L/S)1.26L/SPULMONARY FUNCTION HFJHSL72-92% LLN (L/S)0.49L/S PULMONARY FUNCTION LABPEF PRE (L/S)3.32L/SPULMONARY FUNCTION LABPEF POST (L/S) 2.88L/SPULMONARY FUNCTION LABPEF LLN (L/S)1.98L/SPULMONARY FUNCTION LABPEF ULN (L/S)5.00L/SPULMONARY FUNCTION LABFET PRE (S)11.32SPULMONARY FUNCTION LABFET POST (S)12.09SPULMONARY FUNCTION LABSpecimen (Source)Anatomical Location / LateralityCollection Method / VolumeCollection TimeReceived Time03/10/2025 12:38 PM EDT Narrative PULMONARY FUNCTION LAB - 03/11/2025 11:01 AM EDT [facility] ? [address] [place] [address] [place] [address] ? Test Date: ? 2025-03-10 Pat Name: ?NORA GIBBS ? Department: ?Room: ? 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 : ? 1940 ?Requested By: ?? Order Number: ??[id number] ? Reading MD: ?Sadie Jones MD ? Interpretive Statements PRE and POST BD: Current ATS/ERS acceptability and repeatability standards for spirometry met. Start of test and EOFE criteria met. Medications and Allergies were reviewed for possible drug interactions per policy. No contraindications or sensitivities were noted. Meds taken: Trelegy Ellipta, 27.5 hours before testing. 4 puffs Albuterol (360 mcg) delivered by MDI via holding chamber. HR pre = ??54 /min, HR post = 55 /min. ??//LW IMPRESSION: Spirometry indicates moderately severe obstruction. There is no significant bronchodilator response. Electronically Signed On 03-11-2025 11:01:02 EDT by Sadie Jones MD ID: [id number] ?Name: NORA GIBBS ?Race: White Ht: 60.08 in ?Wt: 173.28 lbs ?Age: 84 Gender: Female ?: 1940 ?Dx: Other forms of dyspnea Smoking Hx: Non-smoker ?Doctor: KARLIE MENDEZ Test Date: 03/10/2025 ?Site: [facility] ?Tech: Ngoc Zepeda ?PRE-BRONCH ? POST-BRONCH ?Kan ?LLN ?? Pred ?ULN %Pred ZScore ?? Kan %Pred ??%Chg ZScore SPIROMETRY FVC ? 1.62 ?? 1.40 ?? 2.06 ?? 2.75 ?78 ??-1.11 ?? 1.63 ?79 ? 0 ??-1.06 FEV1 ?0.87 ?? 1.04 ?? 1.57 ?? 2.06 ?55 ??-2.15 ?? 0.87 ?55 ? 0 ??-2.14 FEV1/FVC ?0.54 ?? 0.64 ?? 0.78 ?? 0.90 ?69 ??-2.56 ?? 0.53 ?68 ? 0 ??-2.60 FEFMax ?3.32 ?? 1.98 ?? 3.49 ?? 5.00 ?95 ??-0.19 ?? 2.88 ?82 ?? -13 ??-0.66 FEF50 ? 0.34 ?? 0.77 ?? 2.37 ?? 3.98 ?14 ??-2.08 ?? 0.34 ?14 ? 0 ??-2.08 FIF50 ? 2.29 ? 1.76 ? -22 ? FEF50/FIF50 ? 0.15 ?90-100 ? 0.19 ?29 ? FIVC ?1.53 ? 1.44 ?-5 ? CPW81-39 ?0.24 ?? 0.49 ?? 1.26 ?? 2.48 ?18 ??-2.53 ?? 0.25 ?19 ? 5 ??-2.48 ExpiredTime ?11.32 ?12.09 ? 6 ? TimeToFEFMax ?0.10 ? 0.07 ? -32 ? ROSALINDA ? 0.05 ? 0.04 ? -31 ? VolExtrap% ? 3 ?2 ? -32 ? Comments: PRE and POST BD: Current ATS/ERS acceptability and repeatability standards for spirometry met. Start of test and EOFE criteria met. Medications and Allergies were reviewed for possible drug interactions per policy. No contraindications or sensitivities were noted. Meds taken: Trelegy Ellipta, 27.5 hours before testing. 4 puffs Albuterol (360 mcg) delivered by MDI via holding chamber. HR pre = ??54 /min, HR post = 55 /min. ??//LW Authorizing ProviderResult TypeResult StatusRenee Andrea MDSCHEDULED PROCEDURES Final ResultPerforming OrganizationAddressCity/State/ZIP CodePhone Number PULMONARY FUNCTION LAB [address] [place] [address] * XR CHEST 2V FRONTAL/LAT (03/10/2025 11:23 AM EDT)Anatomical RegionLaterality ModalityChestOtherSpecimen (Source)Anatomical Location / LateralityCollection Method / VolumeCollection TimeReceived Time03/10/2025 11:23 AM EDT Impressions 03/10/2025 1:46 PM EDT IMPRESSION: No acute cardiopulmonary process. Transcribe Date/Time: Mar 10 2025 ??1:35P Dictated by: MALACHI MURPHY MD This examination was interpreted and the report reviewed and electronically signed by: MALACHI MURPHY MD on Mar 10 2025 ??1:43PM ??EST Thank you for allowing us to participate in the care of your patient. Should there be any questions regarding this interpretation, please call [phone]. If you are unable to reach us at the number above, please feel free to contact [facility]iology at [phone]. Narrative 03/10/2025 1:46 PM EDT * * *Final Report* * * DATE OF EXAM: Mar 10 2025 11:23AM ?? NRX ?? [id number] ??- ??XR CHEST 2V FRONTAL/LAT ??/ PROCEDURE REASON: Dyspnea on exertion ? * * * * Physician Interpretation * * * * RESULT: FRONTAL AND LATERAL CHEST RADIOGRAPHS HISTORY: Dyspnea on exertion ?? . TECHNIQUE: Frontal and lateral views of the chest were obtained. COMPARISON: Chest CT outside hospital 02/27/2025 RESULT: Cardiomediastinal silhouette is enlarged. ??No consolidative opacity. No pleural effusion or pneumothorax. ??Pulmonary vasculature is unremarkable. Procedure Note Provider, [facility] [place] - 03/10/2025 * * *Final Report* * * DATE [...] No pleural effusion or pneumothorax. Pulmonary vasculature isunremarkable. IMPRESSION IMPRESSION: No acute cardiopulmonary process. Transcribe Date/Time: Mar 10 2025 1:35P Dictated by: MALACHI MURPHY MD This examination was interpreted and the report reviewed and electronically signed by: MALACHI MURPHY MD on Mar 10 2025 1:43PM EST Thank you for allowing us to participate in the care of your patient. Should there be any questions regarding this interpretation, please call [phone]. If you are unable to reach us at the number above, please feel free to contact [facility]iology at [phone]. Authorizing ProviderResult TypeResult StatusRenejhony Mendez MDRAD-PAMAFinal Result * EXTERNAL IMAGING (03/06/2025 3:24 PM EDT)Anatomical RegionLateralityModality Other Narrative Authorizing ProviderResult TypeResult StatusExternal Provider PA-CRADIOLOGYFinal Result * EXTERNAL PROCEDURE (03/06/2025 3:24 PM EDT) Narrative Authorizing ProviderResult TypeResult StatusExternal Provider PA-CPROCEDUREFinal Result * CT-CT CHEST WO CON IMPORT (02/27/2025)Anatomical RegionLateralityModalityOther Specimen (Source)Anatomical Location / LateralityCollection Method / Volume Collection TimeReceived Time02/27/2025 Narrative 03/09/2025 11:02 AM EDT Images were obtained outside of [facility] Procedure Note Provider, [facility] [place] - 03/09/2025 Images were obtained outside of [facility] Authorizing ProviderResult TypeResult StatusCcf ProviderRADIOLOGYFinal Result * (ABNORMAL) BASIC METABOLIC PNL (04/14/2019 10:54 AM EST)ComponentValueRef RangeTest MethodAnalysis TimePerformed AtPathologist AevoviexrQbmbjio151(H)74 - 99 mg/dL04/14/2019 11:25 AM ESTC[facility] Comment: The [place] Diabetes Association (ADA) provides guidance for cutoff [...] Standards of Medical Care in Diabetes 2016, [place] Diabetes Association. Diabetes Care. 2016.39(Suppl 1). UCP980 - 21 mg/dL04/14/2019 11:25 AM [facility] Creatinine0.920.58 - 0.96 mg/dL04/14/2019 11:25 AM [facility] QgpsMcazwf465320 - 144 mmol/L106/14/2018 11:25 AM [facility] CarePotassium4.53.7 - 5.1 mmol/L106/14/2018 11:25 AM [facility] DkaeWgtuctyn440(H)97 - 105 mmol/L 04/14/2019 11:25 AM [facility] YqkvYW924(L)22 - 30 mmol/L106/14/2018 11:25 AM [facility] CareAnion Gap14 9 - 18 mmol/L106/14/2018 11:25 AM [facility] Calcium9.78.5 - 10.2 mg/dL04/14/2019 11:25 AM [facility] CareeGFR->6004/14/2019 11:25 AM [facility] Cancer CareeGFR-All Other Races59.04/14/2019 11:25 AM [facility] Cancer CareComment: eGFR (Estimated GFR) Units of measure: mL/min/1.73 [...] eGFR may not accurately reflect actual GFR. Specimen (Source)Anatomical Location / LateralityCollection Method / Volume Collection TimeReceived TimeBlood specimen (specimen)04/14/2019 10:54 AM EST 04/14/2019 10:56 AM EST Narrative Authorizing ProviderResult TypeResult StatusSamuel Pepe DOLABORATORY Final ResultPerforming OrganizationAddressCity/State/ZIP CodePhone Number [facility] [place] [address] [place] [address] [facility] [address] [place] [address] from Last 3 Months or Most Recently Relevant to Health Maintenance Insurance Care Teams Team MemberRelationshipSpecialtyStart DateEnd Date Noble Ferguson DO PCP - GeneralInternal Medicine11/09/14
--- OUTSIDE RECORDS SUMMARY | 2025-04-15 14:34 | XMS_ITS | CCD ---
Author Organization [facility] [place] [facility] [facility] Care Team Providers Care Termite Helper Name Role Phone PHYSICIAN, DEFAULT Admitting Unavailable PHYSICIAN, DEFAULT Attending Unavailable UNKNOWN, PROVIDER Admitting Unavailable UNKNOWN, PROVIDER Attending Unavailable SELF, REFERRED Referring Unavailable SELF, REFERRED Primary Care Unavailable Ball DONoble Primary Care Provider Gayle Wade Unavailable [...] BALL, DR NEWSOME Admitting Unavailable TAMLYN ., RTIU Attending Unavailable TAMLYN ., RITU Admitting Unavailable [...] Care Provider DO Jim Clay Admit Provider [phone] DO Jim Clay Attending Provider Lewis Luis [...] ZEPEDA Attending Unavailable BALA ZEPEDA Attending Unavailable ABLA ZEPEDA Attending Unavailable TABBYANI, HUANG Admitting Unavailable DUKE, BILLIE Attending Unavailable BALA ZEPEDA Referring Unavailable SPENCER, SAMLOLA Referring Unavailable Noble Hayes DO Primary Care Provider Noble Hayes DO Attending Provider Ly Sexton CMA Attending Provider UnavailBobby Alvarado MD Attending Provider [phone] Noble Hayes DO Primary Care Provider Noble Hayes DO Attending Provider [phone] Noble Hayes DO Primary Care Provider [phone] Noble Hayes DO Attending Provider Noble Hayes DO Primary Care Provider Abigail VILLALTA, Noble Attending Provider [phone] ONBLE HAYES Primary Care Unavailable NOBLE HAYES E Primary Care Unavailable NOBLE HAYES E Primary Care Unavailable DAINA MONTELONGO Attending Unavailable Noble Hayes DO Primary Care Provider [phone] Bobby Blood MD Attending Provider Noble Hayes DO Attending Provider [phone] Allergies Allergy ClassificationReported Allergen(s)Allergy TypeDate of OnsetReaction(s) FacilitypenicillAMINE (3 sources)penicillAMINEDrug Iqtfsfw33-29-2548ArwutCgzqxzochProvidence HospitalPenicillins (antibiotic) (3 sources)PenicillinsDrug Ouykxuq91-98-3419VuggnLmlprwepgOhio State University Wexner Medical Centerulfonamides (antibiotic) (6 sources)Sulfonamides (Antibiotic)Drug Icwmeaq89-43-1415HxdlaRegional Medical Centerulfur (3 sources)SulfurDrug Exweonr44-02-8453FmfcRyukhcsecOhioHealth Van Wert Hospital (20 sources)Penicillins; Translations: [PENICILLINS]Drug allergy (disorder) 23-78-0337UfsmuXkzProMedica Toledo Hospital RepositoryComment on above:Onset Date: 05/15/2014 (20 sources)Sulfonamides (Antibiotic); Translations: [SULFA (SULFONAMIDE ANTIBIOTICS)]Drug allergy (disorder)81-84-7843VdxaqQuuProMedica Toledo Hospital RepositoryComment on above:Onset Date: 05/15/2014 (17 sources)PenicillinsDrug Kjwobib17-12-1099XergwblSsajipasg Clinic (17 sources)Sulfonamides (Antibiotic)Drug Kxnlsgg18-28-4418LysklzeJckmjkyrh Clinic (20 sources)guaiFENesinDrug AllergygroopifyWayside Emergency Hospital [employer] Other (20 sources)penicillAMINEDrug Rclvybq13-68-0158GvczhlfWestern Reserve Hospital (20 sources)Sulfacetamide / SulfurDrug AllergygroopifyHarry S. [facility] [employer] Other (15 sources)DextromethorphanDrug Ukaysdd17-19-1152AtbuvmhQmccd [employer] Other (15 sources)guaiFENesinDrug Haajhyq70-57-5754KwhrktwDuvej [employer] Other (1 source)PenicillinDrug AllergyHannibal Regional Hospital [employer] Other (15 sources)Sulf-10Drug allergyUnkSaint John's [facility] [employer] Other (1 source)patient allergy list reviewed by nurse or physiciaPropensity to adverse lhwohfxou28-85-9366Cdbfwie:[facility] [employer] Other (1 source)Allergies ReconciledPropensity to adverse reactionsHannibal Regional Hospital [employer] Other (20 sources)Sulfacetamide; Translations: [sulfacetamide]Drug Plmyron69-31-5860 [facility] (20 sources)Sulfur; Translations: [sulfur]Drug Axoqqrs04-76-5047SxpiQkuywifeaOhioHealth Van Wert Hospital (1 source)penicillAMINEDrug Glyfrbg68-14-1876PoczodktyKindred Healthcare Repository (1 source)PenicillinsDrug allergy (disorder)75-47-3986PryqzfaujKindred Healthcare Repository (1 source)Sulfonamides (Antibiotic)Drug allergy (disorder)79-90-8869AhxgfbovhKindred Healthcare Repository Medications Current Medications MedicationDrug Class(es)DatesSig (Normalized)Sig (Original)30 ACTUAT fluticasone furoate 0.2 MG/ACTUAT / umeclidinium 0.0625 MG/ACTUAT / vilanterol 0.025 MG/AC TUAT Dry Powder Inhaler [Trelegy] (14 sources)Start: 15-00-2410Mfglv: 43-74-5949xphg 1 puff(s) by inhalation once dailyTrelegy Ellipta 200-62.5-25 MCG/ACT 1 puff Inhalation Once a day Nov, ActiveStart: 71-34-7780bziv 1 puff(s) by inhalation once dailyTrelegy Ellipta 200-62.5-25 MCG/ACT 1 puff Inhalation Once a day for 30 days Nov, [id number] 200 actuat albuterol 0.09 mg/actuat metered dose inhaler (20 sources)beta2-Adrenergic AgonistStart: 07-16-1865ylll 1 puff(s) by inhalation every four to six hours as neededAlbuterol Sulfate 90 mcg/actuation HFA aerosol inhaler Active 2 PUFF INHALATION EVERY 4-6 HOURS as needed for Shortness Of Breath 8.5 30 February 19, 2024 11:49am Complies with drug therapyStart: 05-17-2023 End: 05-26-3191Flozdbjhf Sulfate 90 mcg/actuation HFA aerosol inhaler Discontinued 2 PUFF INHALATION As Directed as needed for Shortness Of Breath 8.5 30 February 19, 2024 9:45am February 19, 2024 11:49amtake 1 puff(s) by inhalation every four hours as neededAlbuterol Sulfate HFA 108 (90 Base) MCG/ACT 1 puff as needed Inhalation every 4 hrs Activetake 1 puff(s) by inhalation every four hours as neededAlbuterol Sulfate HFA 108 (90 Base) MCG/ACT 1 puff as needed Inhalation every 4 hrs Activetake 1 puff(s) by inhalation every four hours as neededAlbuterol Sulfate HFA 108 (90 Base) MCG/ACT 1 puff as needed Inhalation every 4 hrs Activealbuterol HFA (VENTOLIN HFA) 90 mcg/actuation inhaler Ventolin HFA 90 mcg/actuation aerosol inhaler0 ActiveComment on above: Ventolin HFA 90 mcg/actuation aerosol inhaleralendronic acid 70 mg oral tablet (15 sources)Bisphosphonatetake 1 tablet by mouth once dailyAlendronate Sodium 70 MG 1 tablet 30 minutes before the first food, beverage or medicine of the day with plain water Orally Activeaspirin 81 mg chewable tablet (20 sources)Platelet Aggregation Inhibitor, Nonsteroidal Anti-inflammatory Drug Start: 99-02-6438ldkr 1 tablet by mouth once dailyAspirin 81 mg Tablet,Chewable Active 81 MG PO Daily April 24, 2023 12:00am Complies with drug therapytake 1 tablet by mouth every twenty-four hoursaspirin, enteric coated (ASPIRIN, ENTERIC COATED) 81 mg EC tablet Take 81 mg by mouth q 24 HR. 0 ActiveComment on above:Take 81 mg by mouth q 24 HR. atorvastatin 40 mg oral tablet (20 sources)HMG-CoA Reductase InhibitorStart: 05-48-7497nvjo 1 tablet by mouth once dailyAtorvastatin 40 mg tablet Active 40 MG PO Daily April 24, 2023 12:00am Complies with drug therapyComment on above:Take 40 mg by mouth once daily. Joujfz-Ghcfdooa-Iwm C-E-Herbal (15 sources)Start: 01-39-9788zlsj 2 tablets by mouth once daily Fyqnaf-Hyfcijcj-Jmb C-E-Herbal Active 2 TAB PO Daily after supper April 24, 2023 1:00amStart: 53-83-8895kzad 2 tablets by mouth once daily Rjucxu-Odrijisq-Ses C-E-Herbal Active 2 TAB PO Daily after supper April 24, 2023 12:35aqJbhuyx-Uipmcjcr-Mdp C-E-Herbal 1,250 mcg-50 mg -67.5 mg-15 mg Tablet,Chewable (14 sources)Start: 62-05-3715ayqc 2 tablets by mouth once daily Wejlpa-Ekzuzkgt-Mtd C-E-Herbal 1,250 mcg-50 mg -67.5 mg-15 mg Tablet,Chewable Active 2 TAB PO Dailyafter supper April 24, 2023 12:00am Complies with drug therapyStart: 21-63-2654esxq 2 tablets by mouth once njcdvYgzkdh-Anfdsfcw-Xqe C-E-Herbal 1,250 mcg-50 mg -67.5 mg-15 mg Tablet,Chewable Active 2 TAB PO Daily after supper April 24, 2023 1:00am Complies with drug therapyStart: 00-43-1273xgmt 2 tablets by mouth once dailyStart: 93-28-3841nxzk 2 tablets by mouth once qrtdwDgtppl-Cudwkzon-Ykp C-E-Herbal 1,250 mcg-50 mg -67.5 mg-15 mg Tablet,Chewable Active 2 TAB PO Dailyafter supper April 24, 2023 1:00am Start: 67-01-4834hnbq 2 tablets by mouth once buchsPejqfr-Tmfgujhz-Sso C-E-Herbal 1,250 mcg-50 mg -67.5 mg-15 mg Tablet,Chewable Active 2 TAB PO Daily after supper April 24, 2023 12:00ambumetanide 0.5 mg oral tablet (4 sources)Loop DiureticStart: 27-43-3945kinp 1 tablet by mouth every twenty- four hoursBumetanide 0.5 MG 1 tablet Orally Once a day for 5 days Dec, Activecalcium carbonate 1500 mg / cholecalciferol 0.01 mg oral tablet (20 sources)Vitamin DStart: 92-90-9218zmaq 1 tablet by mouth once dailyCalcium Carbonate-Vitamin D3 (Calcium 600 + D(3)) 600 mg-10 mcg (400 unit) Tablet Active 1 TAB PO Daily April 24, 2023 12:00am Complies with drug therapyCalcium- Vitamin D 500 MG (20 sources)take 1 tablet by mouth twice daily at mealtimeCalcium-Vitamin D 500 MG 1 tablet with food Orally Twice a day Activeclopidogrel 75 mg oral tablet (6 sources)P2Y12 Platelet InhibitorStart: 87-39-2863xcul 1 tablet by mouth once dailyClopidogrel 75 mg tablet Active 75 MG PO Daily 30 30 0 November 22, 2024 11:00pm Complies with drug therapydoxazosin 4 mg oral tablet (20 sources)alpha-Adrenergic BlockerStart: 31-86-8778yjgs 1 tablet by mouth once dailyDoxazosin 4 mg tablet Active 4 MG PO Daily 30 0 February 22, 2025 11:00pm Complies with drug therapyStart: 11-23-2024 End: 73-26-3140lybv 2 tablets by mouth once daily at bedtimeDoxazosin 4 mg tablet Discontinued 8 MG PO Daily at bedtime 60 30 0 November 23, 2024 2:39pm February 23, 2025 12:29pm Primary hypertension Essential (primary) hypertensionStart: 08-22-2024 End: 95-27-6343uuwa 3 mg by mouth once daily at bedtimeDoxazosin 2 mg tablet Discontinued 3 MG PO Daily at bedtime August 22, 2024 11:01am November 23, 2024 2:40pm Primary hypertension Essential (primary) hypertensionStart: 11-26-2023 End: 52-55-4267rbxv 1 tablet by mouth once daily at bedtimeDoxazosin 2 mg tablet Discontinued 2 MG PO Daily at bedtime November 29, 2023 11:00pm August 22, 2024 11:02am Primary hypertension Essential (primary) hypertensiondoxycycline hyclate 100 mg oral capsule (20 sources)Tetracycline-class DrugStart: 11-71-5152xhjh 1 capsule by mouth every twelve hoursDoxycycline Hyclate 100 MG 1 capsule Orally Twice a day for 10 days Mar, ActiveStart: 13-93-8620oxpa 1 capsule by mouth twice daily Doxycycline Hyclate 100 MG 1 capsule Orally twice daily for 7 days Aug, ActiveFiber (20 sources)Fiber - as directed Orally IwexixUcteqnyeqhy-Wnqaszfmc-Zmtjgjjj (20 sources)Start: 84-40-3989Mzayxlnijby-Umeclidin-Vilanter (Trelegy Ellipta) 200-62.5-25 mcg blister with device Active 1 INH INHALATION Daily 30 October 28, 2024 11:00pm Complies with drug therapyStart: 10-29-2024 Lscjpmbcbir-Mudxczbmz-Ktxvsmns (Trelegy Ellipta) 200-62.5-25 mcg blister with device Active 1 INH INHALATION Daily October 29, 2024 12:00am Complies with drug therapyStart: 17-93-3864Sczpz: 73-90-7172Srtstzmkvqp-Umeclidin-Vilanter (Trelegy Ellipta) 200-62.5-25 mcg blister with device Active 1 INH INHALATION Daily October 29, 2024 12:00amStart: 04-24-2023 End: 86-53-7101Dqjngyvwpux-Umeclidin-Vilanter (Trelegy Ellipta) 200-62.5-25 mcg Blister With Device Discontinued 1INH INHALATION Daily April 24, 2023 12:00am October 29, 2024 12:02pmStart: 04-24-2023 End: 48-04-9670Uprauqwjdxa-Umeclidin-Vilanter (Trelegy Ellipta) 200-62.5-25 mcg Blister With Device Discontinued 1INH INHALATION Daily April 24, 2023 1:00am October 29, 2024 1:02pmStart: 45-41-2790Ceprvoubrzc-Umeclidin-Vilanter (Trelegy Ellipta) 200-62.5-25 mcg Blister With Device Active 1 INH INHALATION Daily April 24, 2023 1:00amStart: 72-86-9432Qhugeqmvzha-Umeclidin-Vilanter (Trelegy Ellipta) 200-62.5-25 mcg Blister With Device Active 1 INH INHALATION Daily April 24, 2023 12:00aminulin 2000 mg chewable tablet (20 sources)Start: 96-01-7706tchu 1 tablet by mouth twice dailyInulin (Fiber Gummies) 2 gram Tablet,Chewable Active 2 GM PO Twice daily April 24, 2023 12:00am Complies with drug therapyinulin (FIBER GUMMIES ORAL) Take by mouth. 0 ActiveComment on above:Take by mouth.24 hr isosorbide mononitrate 30 mg extended release oral tablet (20 sources)Nitrate VasodilatorStart: 11-49-3408zdlm 1 tablet by mouth every twenty-four hoursIsosorbide Mononitrate 30 mg tablet extended release 24 hr Active MG PO January 26, 2025 11:00pm Complies with drug therapyStart: 20-06-4012kdbs 1 tablet by mouth every twenty-four hoursIsosorbide Mononitrate 60 mg tablet extended release 24 hr Active MG PO January 26, 2025 11:00pm Co mplies with drug therapyStart: 12-30-2024 End: 03-20-0901cuak 1 tablet by mouth once daily in the morning, then take 4 tablets by mouth every twenty-four hoursIsosorbide Mononitrate 120 mg tablet extended release 24 hr Discontinued 30 MG PO Daily 30 0 December 30, 2024 6:58pm February 23, 2025 12:44pm take 30mg in the morning; take 60+30mg to EQUAL 90mgStart: 03-20-2024 End: 70-88-3222xpth 1 tablet by mouth once daily in the morning, then take 1 tablet by mouth every twenty-four hoursIsosorbide Mononitrate 30 mg tablet extended release 24 hr Discontinued 30 MG PO Daily November 24, 2024 10:01am December 30, 2024 6:59pm take 30mg in the morning; take 60+30mg to EQUAL 90mgStart: 04-24-2023 End: 33-71-5118kzjo 1 tablet by mouth once daily in the morning, then take 1 tablet by mouth every twenty-four hoursIsosorbide Mononitrate 60 mg tablet extended release 24 hr Discontinued 60 MG PO Every morning April 24, 2023 12:00am November 23, 2024 2:40pmComment on above:Take 60 mg by mouth once daily. levothyroxine sodium 0.088 mg oral tablet (20 sources)l-ThyroxineStart: 01-29-2024 End: 98-53-4741audt 1 tablet by mouth once dailyLevothyroxine 88 mcg tablet Active 0 .ROUTE .COMPLEX 10 05December 24, 2024 9:08pm TAKE ONE TABLET BY MOUTH ONCE DAILY ON AN EMPTY STOMACH Complies with drug therapyStart: 33-70-5465wwtp 1 tablet by mouth once dailyLevothyroxine 88 mcg tablet Active 0 .ROUTE .COMPLEX January 29, 2024 1:10pm TAKE ONE TABLET BYMOUTH ONCE DAILY ON AN EMPTY STOMACHStart: 73-22-7108ckvo 1 tablet by mouth once dailyLevothyroxine 88 mcg tablet Active 0 .ROUTE .COMPLEX January 29, 2024 12:10pm TAKE ONE TABLET BY MOUTH ONCE DAILY ON AN EMPTY STOMACHStart: 77-20-4873mywj 1 tablet by mouth once dailyLevothyroxine Active 0 .ROUTE .COMPLEX January 29, 2024 1:10pm TAKE ONE TABLET BY MOUTH ONCE DAILY ON AN EMPTY STOMACHStart: 04-24-2023 End: 41-55-0704ddsk 1 tablet by mouth once daily in the morningLevothyroxine 88 mcg tablet Discontinued 88 MCG PO Every morning April 24, 2023 12:00am 2023 12:10pmLevothyroxine Sodium 88 MCG TAKE 1 TABLET DAILY ON EMPTY STOMACH ActiveLevothyroxine 100 mcg cap Take 75 mcg by mouth once daily. 0 ActiveComment on above:Take 75 mcg by mouth once daily. lisinopril 20 mg oral tablet (20 sources)Angiotensin Converting Enzyme InhibitorStart: 40-89-5987ofqk 1 tablet by mouth twice dailyLisinopril 20 mg tablet Active 20 MG PO Twice daily March 19, 2024 11:00pm Complies with drug therapyStart: 03-19-2024 End: 39-92-6045hhsz 1 tablet by mouth once dailyLisinopril 40 mg tablet Discontinued 40 MG PO Daily March 19, 2024 5:05pm March 20, 2024 1:30pm Start: 02-19-2024 End: 15-94-5835Cgbeuvlnkk 40 mg tablet Discontinued 30 MG PO Daily February 19, 2024 11:46am March 19, 2024 5:05pmStart: 83-47-6712ygwx 30 mg by mouth once dailyLisinopril Active 30 MG PO Daily February 19, 2024 12:46pmStart: 02-19-2024 End: 17-30-2422xdqn 1 tablet by mouth once dailyLisinopril 40 mg tablet Discontinued 40 MG PO Daily February 19, 2024 9:49am February 19, 2024 11:46amStart: 12-10-2023 End: 28-59-2793nzmd 1 tablet by mouth once dailyLisinopril 30 mg tablet Discontinued 30 MG PO Daily February 18, 2024 11:00pm March 19, 2024 5:05pm Start: 12-10-2023 End: 16-58-8741yliq 2 tablets by mouth once daily, then take 3 tablets by mouth once dailyLisinopril 10 mg tablet Discontinued 10 MG PO Daily December 09, 2023 11:00pm January 020:35am Take w/ 20mg Lisinopril for total of 30mg qdStart: 12-10-2023 End: 21-79-4448jyup 20 mg by mouth once daily, then take 30 mg by mouth once dailyLisinopril Discontinued 10 MG PO Daily December 10, 2023 12:00am January 03, 2024 11:35am Take w/20mg Lisinopril for total of 30mg qdStart: 12-07-2023 End: 99-56-8146Oozeyxqedg 30 mg tablet Discontinued 30 MG PO Daily December 07, 2023 11:30am December 10, 2023 3:47pm Add to Lisinopril 20mg (total 30mg/day) Start: 08-30-2023 End: 83-18-0386nvms 1 tablet by mouth once dailyLisinopril 20 mg tablet Discontinued 0 .ROUTE .COMPLEX 30 August 30, 2023 2:12pm December 07, 2023 5:33pm TAKE ONE TABLET BY MOUTH DAILYStart: 04-24-2023 End: 11-03-3323yxit 1 tablet by mouth once daily in the morningLisinopril 20 mg tablet Discontinued 20 MG PO Every morning April 24, 2023 12:00am August 2:12pmComment on above:Take 20 mg by mouth once daily.24 hr metoprolol succinate 25 mg extended release oral tablet (20 sources)beta-Adrenergic BlockerStart: 84-49-1603dlhw 2 tablets by mouth once dailyMetoprolol Succinate 25 mg Tablet Extended Release 24 Hr Active 12.5 MG PO Daily November 11:00pm Complies with drug therapyStart: 72-00-5839wxph 12.5 mg by mouth once dailyMetoprolol Succinate Active 12.5 MG PO Daily December 01, 2023 12:00ampantoprazole 20 mg delayed release oral tablet (6 sources)Proton Pump InhibitorStart: 10-20-7120uznk 1 tablet by mouth once dailyPantoprazole 20 mg tablet,delayed release (DR/EC) Active 20 MG PO Daily December 29, 2024 11:00pm Complies with drug therapytrelegy ellipta 200-62.5-25 mcg/act aerosol powder breath activated (5 sources)Start: 03-00-4030ecrr 1 puff(s) by inhalation once dailyTrelegy Ellipta 200-62.5-25 MCG/ACT 1 puff Inhalation Once a day Nov, Active vitamin b12 1 mg/ml injectable solution (20 sources)Vitamin Y71Rzens: 45-46-8222beuudp 1000 ug by intramuscular injection every monthCyanocobalamin (Vitamin B-12) 1,000 mcg/mL Solution Active 1000 MCG IM every month May 17, 2023 12:00am Complies with drug therapy Start: 74-88-4320rsospv 1000 ug by intramuscular injection every month Cyanocobalamin (Vitamin B-12) Active 1000 MCG IM every month May 17, 2023 1:00amVitamin B12 3000 MCG/ML as directed Sublingual ActiveVitamin B12 3000 MCG/ML as directed Sublingual Active Completed/Discontinued Medications MedicationDrug Class(es)DatesSig (Normalized)Sig (Original)acetaminophen 500 mg oral tablet (20 sources)Start: 05-17-2023 End: 36-57-9046eudh 1 tablet by mouth every six hours as needed for pain Acetaminophen 500 mg Tablet Discontinued 500 MG PO Q6H as needed for Pain May 17, 2023 12:00am March 20, 2024 1:29pmtake 1 capsule by mouth every six hoursTylenol 325 MG 1 capsule as needed Orally every 6 hrs Activetake 1 tablet by mouth every six hours as neededacetaminophen (TYLENOL EXTRA STRENGTH) 500 mg tablet Take 500 mg by mouth every 6 hours as needed. 0 Active Comment on above:Take 500 mg by mouth every 6 hours as needed.albuterol 0.833 mg/ml / ipratropium bromide 0.167 mg/ml inhalation solution (11 sources)Anticholinergic, beta2-Adrenergic AgonistStart: 09-16-2021 ipratropium-albuterol (DUONEB) 0.5 mg-3 mg(2.5 mg base)/3 mL nebu USE 1 VIAL IN NEBULIZER EVERY 6 HOURS NEEDED 0 09/16/2021 Activetake 20-100 ug by inhalation every six hours as neededCombivent Respimat 20-100 MCG/ACT 1 puff as needed Inhalation every 6 hrs ActiveComment on above:USE 1 VIAL IN NEBULIZER EVERY 6 HOURS NEEDEDamLODIPine 2.5 mg oral tablet (20 sources)Dihydropyridine Calcium Channel BlockerStart: 05-27-2024 End: 46-30-8102djci 1 tablet by mouth once dailyAmlodipine 2.5 mg tablet Discontinued 2.5 MG PO Daily 30 30 0 May 27, 2024 12:00am August 22, 2024 11:20amStart: 04-24-2023 End: 73-05-5304ohdj 1 tablet by mouth once daily in the morningAmlodipine 10 mg tablet Discontinued 10 MG PO Every morning April 24, 2023 12:00am November 26, 2023 3:11pmComment on above:Take 10 mg by mouth once daily.azithromycin 250 mg oral tablet (8 sources)Macrolide AntimicrobialStart: 10-06-2024 End: 11-89-9155Qamoukekficq 250 mg tablet Discontinued 250 MG PO .COMPLEX 6 5 0 October 05, 2024 11:00pm November 24, 2024 10:00am 2 tabs on first day followed by 1 tab on days 2--12 - up to 1000 mcg (20 sources)Start: 96-99-7486J-12 - up to 1000 mcg Jun, 1000 mcgStart: 54-26-7252T-12 - up to 1000 mcg May, 1000 mcgStart: 24-39-0278Z-12 - up to 1000 mcg Apr, 1000 mcgStart: 92-34-8917L-12 - up to 1000 mcg Mar, 1000 mcgStart: 67-33-8578P-12 - up to 1000 mcg Feb, 1000 mcgStart: 10-37-6869M-12 - up to 1000 mcg Jan, 1000 mcgStart: 23-23-4582Fekoc: 04-83-1075Z-12 - up to 1000 mcg Dec, 1000 mcgStart: 04-01-2455Lkdeq: 45-94-0344N-12 - up to 1000 mcg Nov, 1000 mcgStart: 22-25-8205Sgsop: 91-24-5880K-12 - up to 1000 mcg October, 1000 mcgStart: 30-72-8600Xqipl: 63-88-0676L-12 - up to 1000 mcg Sep, 1000 mcgStart: 32-00-5360Breoi: 38-71-5535I-12 - up to 1000 mcg Aug, 1000 mcgStart: 05-45-5276Paerg: 38-21-2540W-12 - up to 1000 mcg Jun, 1000 mcgbudesonide 0.25 mg/ml inhalation suspension (1 source)CorticosteroidStart: 73-20-6223guyhhytjhg (PULMICORT) 0.5 mg/2 mL nebulizer solution USE 2ML IN NEBULIZER TWICE A DAY 0 09/21/2021ctiveComment on above:USE 2ML IN NEBULIZER TWICE A DAYCalcium (1 source)Phosphate Binder, Calciumtake 1200 mg by mouth once dailyCALCIUM ORAL Take 1,200 mg by mouth once daily. 0 ActiveComment on above:Take 1,200 mg by mouth once daily.Cyanocobalamin (Vitamin B-12) (Vitamin B-12) 100 mcg/mL Solution (20 sources)Start: 04-24-2023 End: 55-39-4486Nyaercxuaphljd (Vitamin B-12) (Vitamin B-12) 100 mcg/mL Solution Discontinued 100 MCG April 24, 2023 12:00am May 17, 2023 10:42am Start: 04-24-2023 End: 13-84-9255Ugykmpkxfswtth (Vitamin B-12) (Vitamin B-12) 100 mcg/mL Solution Discontinued 100 MCG April 24, 2023 1:00am May 17, 2023 11:42amStart: 04-24-2023 End: 83-01-4492Swwultoaauekhd (Vitamin B-12) (Vitamin B-12) 100 mcg/mL Solution Discontinued 100 MCG SOLUTION April 24, 2023 1:00am May 17, 2023 11:42amStart: 04-24-2023 End: 66-70-3037Ovkfmrhqkldtkp (Vitamin B-12) (Vitamin B-12) 100 mcg/mL Solution Discontinued 100 MCG SOLUTION April 24, 2023 12:00am May 17, 2023 10:42amfluocinonide 0.5 mg/ml topical solution (2 sources)CorticosteroidStart: 72-95-8939fptzrbqxgpnz (LIDEX) 0.05 % external solution APPLY TO SCALP NEEDED FOR ITCHINESS 0 08/27/2020 ActiveComment on above:APPLY TO SCALP NEEDED FOR ITCHINESSfurosemide 20 mg oral tablet (20 sources)Loop DiureticStart: 11-19-2024 End: 90-77-1858vufy 1 tablet by mouth once dailyFurosemide 20 mg tablet Discontinued 20 MG PO Daily 30 30 0 November 18, 2024 11:00pm November 24, 2024 10:00amStart: 03-20-2024 End: 46-43-1445gipy 1 tablet by mouth twice dailyFurosemide 20 mg tablet Discontinued 20 MG PO Twice daily March 19, 2024 11:00pm May 27, 2024 3:20pmStart: 01-01-2024 End: 33-74-2892eurz 1 tablet by mouth twice dailyFurosemide 20 mg tablet Discontinued 20 MG PO Twice daily 60 30 0 December 31, 2023 11:00pm 2023 9:25amketoconazole 20 mg/ml medicated shampoo (2 sources)Azole AntifungalStart: 04-50-6892wuvjdughmilj (NIZORAL) 2 % shampoo APPLY WASH TO SCALP EVERY OTHER DAY. LET SIT FOR 5 MINUTES BEFORE RINSING. 0 08/27/2020 ActiveComment on above:APPLY WASH TO SCALP EVERY OTHER DAY. LET SIT FOR 5 MINUTES BEFORE RINSING.ondansetron 4 mg disintegrating oral tablet (7 sources)Serotonin-3 Receptor AntagonistStart: 10-08-2024 End: 09-59-9347ydvj 1 tablet by mouth every eight hours as needed for nausea and vomitingOndansetron 4 mg tablet,disintegrating Discontinued 4 MG PO Every 8 hours as needed for nausea and vomiting 10 5 1 October 07, 2024 11:00pm November 23, 2024 2:40pmspironolactone 25 mg oral tablet (20 sources)Aldosterone AntagonistStart: 12-01-2023 End: 35-65-0243odxr 1 tablet by mouth once dailySpironolactone 25 mg Tablet Discontinued 25 MG PO Daily 30 0 November 30, 2023 11:00pm February 19, 2024 11:45amtemazepam 30 mg oral capsule (20 sources)BenzodiazepineStart: 02-01-2023 End: 28-88-5215tpvy 1 capsule by mouth once daily at bedtimeTemazepam 30 mg capsule Discontinued 30 MG PO Daily at bedtime April 24, 2023 12:00am 2023 9:01amStart: 91-97-2155fwmz 1 capsule by mouth once daily at bedtimeTemazepam 30 mg TAKE ONE CAPSULE BY MOUTH ONCE DAILY AT BEDTIME for 30 Aug, ActiveStart: 23-29-0978gwsb 1 capsule by mouth once daily at bedtime temazepam (RESTORIL) 30 mg cap Take 30 mg by mouth daily at bedtime. 0 09/24/2020 ActiveComment on above:Take 30 mg by mouth daily at bedtime.torsemide 20 mg oral tablet (20 sources)Loop DiureticStart: 11-19-2023 End: 24-33-5071nyfr 1 tablet by mouth once daily in the morningTorsemide 20 mg tablet Discontinued 20 MG PO Every morning 7 7 0 November 18, 2023 11:00pm November 30, 2023 2:03pmTriamcinolone (20 sources)CorticosteroidStart: 12-61-7057Ucuvt: 51-10-2520Pfywabi -40 mg Dec, 40 mgStart: 04-59-2833Gwuqa: 10-52-0931Jpdyjrf -40 mg Nov, 40 mg Problems Active Problems Problem ClassificationProblemDateDocumented DateEpisodic/ChronicAcute bronchitis (8 sources)Acute bronchitis; Translations: [Acute bronchitis, unspecified] 73-49-1056EhekkmstTlui and rectal conditions (20 sources)Perirectal abscess; Translations: [Rectal abscess]EpisodicCancer of breast (20 sources)Malignant neoplasm of female breast; Translations: [Malignant neoplasm of unspecified site of unspecified female breast]Onset: 11-18-2014 26-73-1229OegqtbpCnfxon of breast (20 sources)Personal history of malignant neoplasm of breast; Translations: [History of malignant neoplasm of breast]Onset: 889673-83-5743Qacwwcmk Chronic kidney disease (20 sources)Chronic kidney disease stage 3B ; Translations: [Stage 3b chronic kidney disease]06-88-9508TqtydpnZphqifl obstructive pulmonary disease and bronchiectasis (20 sources)Chronic obstructive pulmonary disease, unspecified; Translations: [Mucopurulent chronic bronchitis]Onset: 09-03-2018 Resolved: 67-73-4330QdqpsiyHzpprgp on above:PFT: mild obstructive defect, mild restrictive defect, decreased DLCO - 02/2024,CTA chest: negative - 11/2023 Complications of surgical procedures or medical care (20 sources)Other complications of procedures, not elsewhere classified, initial encounter; Translations: [Non-healing surgical wound]Onset: 61-78-9250Fvxrltzz Congestive heart failure; nonhypertensive (20 sources)Acute exacerbation of chronic congestive heart failure; Translations: [Acute on chronic diastolic (congestive) heart failure]Onset: 497697-74-6953GnsmkgoNddgsod on above:Echo: LVEF 55%, mild , normal RV size/function - 11/2023Echo: LVEF 55%, mild , normal RV size/function - 11/2023,Echo: LVEF 60%, KAREEM, normal RV size/function, RVSP 33 - oronary atherosclerosis and other heart disease (20 sources)Atherosclerotic heart disease of [place] coronary artery with unstable angina pectoris; Translations: [Coronary arteriosclerosis]Onset: 60-03-7741YxljgtgZncnghl on above:Stress testing w/o ischemia - 11/2023LHC: PCI/stent RCA, 70% LCx, 70% distal LAD - 08/2018,Stress testing w/o ischemia - 11/2023LHC: PCI/stent RCA, 70% LCx, 70% distal LAD - 08/2018,Stress testing w/o ischemia - 11/2023,PCI/stentmid LCx - 11/2024Deficiency and other anemia (2 sources)Anemia due to chronic blood loss; Translations: [Iron deficiency anemia secondary to blood loss (chronic)]Onset: 26-50-7022BagkxitRqcpjbvewj and other anemia (20 sources)Pernicious anemia; Translations: [Vitamin B12 deficiency anemia due to intrinsic factor deficiency]43-37-3830FtdeymvtJvlukbdmvx and other anemia (19 sources)Vitamin B12 deficiency anemia due to intrinsic factor deficiency; Translations: [Pernicious anemia]EpisodicDisorders of lipid metabolism (20 sources)Pure hypercholesterolemia; Translations: [Familial hypercholesterolemia]Onset: 07-45-3102GhmgmguYyzgoujilcewdr and diverticulitis (1 source)Diverticulitis of colon; Translations: [Diverticulitis of colon (without mention of hemorrhage)]Onset: 84-70-1707FodacoaNokgvbzrgk disorders (7 sources)Gastro-esophageal reflux disease with esophagitis; Translations: [Gastroesophageal reflux disease with esophagitis without hemorrhage]Chronic Essential hypertension (20 sources)Essential (primary) hypertension; Translations: [Essential hypertension]Onset: 31-94-2118EooqkwoAypmhhxzuhpbn symptoms and ill-defined conditions (20 sources)Polyuria; Translations: [Polyuria]Onset: 38-36-7665Nfaovuaw Hypertension with complications and secondary hypertension (8 sources)Chronic kidney disease due to hypertension; Translations: [Hypertensive chronic kidney disease withstage 1 through stage 4 chronic kidney disease, or unspecified chronic kidney disease]Onset: 992047-45-0296 ChronicImmunizations and screening for infectious disease (2 sources)Vaccination given; Translations: [Encounter for immunization]Episodic Miscellaneous mental health disorders (20 sources)Primary insomnia; Translations: [Primary insomnia]46-79-2422Vbadkpo Nonmalignant breast conditions (2 sources)Fibrocystic disease of breast; Translations: [Diffuse cystic mastopathy of unspecified breast]ChronicNonmalignant breast conditions (20 sources)Cellulitis of breast; Translations: [Mastitis without abscess]Onset: 93-65-9916DlxrqzsyNdtgyovnliu chest pain (20 sources)Chest pain; Translations: [Chest pain, unspecified]Onset: 07-25-2018 09-15-9864VraukfthUsicizyjtsi deficiencies (2 sources)Vitamin D deficiency; Translations: [Vitamin D deficiency, unspecified]Onset: 09-45-4422VqhofwnJxogrxhrpphtiq (20 sources)Osteoarthritis of right knee joint; Translations: [Unilateral primary osteoarthritis, right knee]Onset: 81-94-8836OvygaslPhslgjwaztzv (2 sources)Primary osteoporosis; Translations: [Age-related osteoporosis without current pathological fracture]ChronicOther aftercare (1 source)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; 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]Onset: 81-15-2602JotsejobKxbdq aftercare (2 sources)Long-term current use of drug therapy; Translations: [Other terminal system operator (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]EpisodicOther circulatory disease (20 sources)Carotid bruit; Translations: [Other specified symptoms and signs involving the circulatory and respiratory systems]EpisodicOther circulatory disease (3 sources)Cardiovascular symptoms; Translations: [Other symptoms involving cardiovascular system]EpisodicOther circulatory disease (2 sources)Other specified symptoms and signs involving the circulatory and respiratory systems; Translations:[Right carotid bruit]EpisodicOther connective tissue disease (20 sources)Radial styloid tenosynovitis; Translations: [Radial styloid tenosynovitis [de [place]]]EpisodicOther connective tissue disease (20 sources)Necrotizing fasciitis; Translations: [Necrotizing fasciitis]Episodic Other connective tissue disease (1 source)Necrotizing fasciitis; Translations: [Necrotizing fasciitis]Episodic Other connective tissue disease (20 sources)Trochanteric bursitis; Translations: [Trochanteric bursitis, left hip]78-94-8984UzcucyamCcbsz diseases of veins and lymphatics (14 sources)Peripheral venous insufficiency; Translations: [Unspecified venous (peripheral) insufficiency]Onset: 75-75-6770EelvzvjePwryf diseases of veins and lymphatics (2 sources)Venous insufficiency (chronic) (peripheral)EpisodicOther ear and sense organ disorders (4 sources)Impacted cerumen, unspecified ear; Translations: [Impacted cerumen] 54-13-5218VwkxbyvrRwutw female genital disorders (2 sources)Other specified conditions associated with female genital organs and menstrual cycle; Translations:[Oth cond assoc w female genital organs and menstrual cycle]EpisodicOther gastrointestinal disorders (2 sources)Irritable bowel syndrome with diarrhea; Translations: [Irritable bowel syndrome with diarrhea]Onset: 59-99-0178DbdeeshYnuks injuries and conditions due to external causes (1 source)Other injury of unspecified body region, initial encounterEpisodic Other injuries and conditions due to external causes (2 sources)History of fall; Translations: [History of falling]EpisodicOther lower respiratory disease (3 sources)Shortness of breath; Translations: [SHORTNESS OF BREATH]Onset: 79-72-5547MtijxzlrVkkba lower respiratory disease (17 sources)Dyspnea; Translations: [Other forms of dyspnea]Onset: 04-16-2018 12-46-2559JjumxlslUyszs lower respiratory disease (4 sources)Other forms of dyspnea; Translations: [Other forms of dyspnea]Onset: 09-41-8760PoakbrxpKyivl lower respiratory disease (3 sources)Multiple nodules of lung; Translations: [Other nonspecific abnormal finding of lung field]80-85-9790CbvvyencRilba nervous system disorders (18 sources)Abnormal sensation; Translations: [Other disturbances of skin sensation]EpisodicOther nervous system disorders (1 source)Other disturbances of skin sensationEpisodicOther non-epithelial cancer of skin (20 sources)Basal cell carcinoma of face; Translations: [Basal cell carcinoma of skin of unspecified parts of face]Onset: 86-94-9729YvoypocsIriqj non-traumatic joint disorders (2 sources)Pain in right hip joint; Translations: [Pain in right hip]Episodic Other non-traumatic joint disorders (5 sources)Hip pain; Translations: [Pain in right hip]69-81-4257HcivaakrXjfun nutritional; endocrine; and metabolic disorders (20 sources)Obesity; Translations: [Obesity, unspecified]34-30-3222WtshucyAmyse nutritional; endocrine; and metabolic disorders (2 sources)Simple obesity ; Translations: [Other obesity due to excess calories] Onset: 75-95-6812KmldzybMwpot nutritional; endocrine; and metabolic disorders (1 source)Obese class I; Translations: [Body mass index 32.0-32.9, adult]Onset: 86-99-6255MjdoxryBbxxd nutritional; endocrine; and metabolic disorders (1 source)Body mass index 30+ - obesity; Translations: [Body mass index 31.0- 31.9, adult]Onset: 17-55-8090SiqgymyHiwpj nutritional; endocrine; and metabolic disorders (11 sources)Obesity, unspecified; Translations: [Obesity, unspecified]02-19-2024 ChronicOther screening for suspected conditions (not mental disorders or infectious disease) (20 sources)Abnormal result of other cardiovascular function study; Translations: [Patient encounter status]Onset: 34-41-9915PulxhdhqNgdobyqiyl and visceral atherosclerosis (2 sources)Peripheral vascular disease, unspecified; Translations: [Peripheral vascular disease, unspecified]Onset: 13-71-0409TqqxkacQicwebdyc (except that caused by tuberculosis or sexually transmitted disease) (4 sources)Infective pneumonia; Translations: [Pneumonia due to other specified infectious organisms]Onset: 59-99-1809UctmcdeiFmmstzdk codes; unclassified (20 sources)Insomnia; Translations: [Insomnia, unspecified]98-89-1077Zlrungty Residual codes; unclassified (1 source)Family history of malignant neoplasm of breast; Translations: [FAMILY HX MALIG NEOPLASM OF BREAST]Onset: 71-57-9638LxkgampnEdenkskb codes; unclassified (1 source)Family history of malignant neoplasm of other organs or systems; Translations: [FAM HX MALIG NEOPLASM OTH ORGN/SYS]Onset: 13-18-5189Alzfbrrs Residual codes; unclassified (20 sources)Edema of lower extremity; Translations: [Localized edema]11-19-2023 EpisodicResidual codes; unclassified (11 sources)Localized edema; Translations: [Edema]Onset: 28-28-9983Srcbceko Residual codes; unclassified (1 source)Requires influenza virus vaccination; Translations: [Need for prophylactic vaccination and inoculation, Influenza]EpisodicResidual codes; unclassified (2 sources)Postmenopausal state; Translations: [Asymptomatic menopausal state] EpisodicResidual codes; unclassified (2 sources)Postprocedural state finding; Translations: [Other specified postprocedural states]EpisodicResidual codes; unclassified (2 sources)Insomnia, unspecified; Translations: [Insomnia]EpisodicResidual codes; unclassified (20 sources)H/O: radiation exposure; Translations: [Personal history of irradiation]98-89-8160WsvllxbwIomelgpy codes; unclassified (7 sources)Personal history of irradiation; Translations: [Personal history of irradiation, presenting hazardsto health]17-87-7356MgxjszgwAhxmqzwz codes; unclassified (20 sources)Edema; Translations: [Edema, unspecified]57-20-1859MhtnpkimWnzautiz codes; unclassified (1 source)Edema, unspecified; Translations: [Edema]50-20-5170VccxixizXualujfiu and history of mental health and substance abuse codes (5 sources)Personal history of nicotine dependence; Translations: [History of tobacco use]Onset: 19-33-2776GwfttepmTlsn and subcutaneous tissue infections (5 sources)Local infection of the skin and subcutaneous tissue, unspecified; Translations: [LOCAL INFECT SKIN SUBQ TISSUE UNS]Onset: 29-70-9806Mqeysvus Spondylosis; intervertebral disc disorders; other back problems (20 sources)Lumbar spondylosis; Translations: [Spondylosis without myelopathy or radiculopathy, lumbar region]ChronicSpondylosis; intervertebral disc disorders; other back problems (2 sources)Low back pain; Translations: [Low back pain, unspecified]Episodic Substance-related disorders (20 sources)Tobacco user; Translations: [Nicotine dependence, cigarettes, in remission]ChronicSystemic lupus erythematosus and connective tissue disorders (1 source)Autoimmune disease; Translations: [Autoimmune disease, not elsewhere classified]Onset: 17-76-7776FjuilvzHdqexrt disorders (20 sources)Hypothyroidism, unspecified; 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]Onset: 01-52-3099LrhbmmmDsdczeigmjqc (1 source)R94.39 ABNORMAL RESULT OF OTHER CARDIOVASCULAR FUNCTION STUDYOnset: 45-29-3204Mifqhfvbzgjh (1 source)R9439 ABNORMAL RESULT OF OTHER CARDIOVASCULAR FUNCTION STUDYOnset: 23-13-7163Zrifdbcdlfoq (1 source)Long-term current use of drug therapy; Translations: [Long-term (current) use of other medications]Onset: 55-70-7655Mppywtftesfu (1 source)Identification of preoperative respiratory status; Translations: [Encounter for preprocedural respiratory examination]Onset: 12-01-2013 Unclassified (1 source)Other complications of procedures, not elsewhere classified, initial encounter; Translations: [Other complications of procedures, not elsewhere classified, initial encounter]Onset: 63-66-1460Yyuozsokgbfu (1 source)Encounter for preprocedural laboratory examination; Translations: [Encounter for preprocedural laboratory examination]Onset: 05-17-2023 Past or Other Problems Problem ClassificationProblemDateDocumented DateEpisodic/ChronicAbdominal pain (2 sources)Left lower quadrant pain; Translations: [Left lower quadrant pain] Resolved: 96-34-9986YpnishczBdlmupj kidney disease (3 sources)Chronic kidney disease; Translations: [Stage 3a chronic kidney disease N18.31]Coronary atherosclerosis and other heart disease (2 sources)Presence of coronary angioplasty implant and graft; Translations: [Presence of coronary angioplastyimplant and graft]Onset: 98-75-2342Wgadbarl Deficiency and other anemia (2 sources)Anemia; Translations: [Anemia, unspecified]Onset: 33-95-2368Wgecwsmm Esophageal disorders (20 sources)Esophageal disorders; Translations: [Gastroesophageal reflux disease with esophagitis without hemorrhage]Malaise and fatigue (1 source)Malaise and fatigue; Translations: [Other malaise and fatigue]Onset: 95-48-1872PmjjluweCrxegtkyv of unspecified nature or uncertain behavior (4 sources)Neoplasm of uncertain behavior of skin; Translations: [Neoplasm of uncertain behavior of skin]Onset: 05-01-2013 Resolved: 18-23-2832RderauatWolfs aftercare (1 source)Other assisted (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; Translations: [[place] BUS DRIVER CURRENT DRUG THERAPY]Onset: 63-39-7956EgszobthQrhbi gastrointestinal disorders (1 source)Digestive symptom; Translations: [Other symptoms involving digestive system]Onset: 84-29-6682GwdrtpwtLctqp skin disorders (1 source)Sebaceous cyst; Translations: [Sebaceous cyst]Onset: 04-07-2015 EpisodicOther skin disorders (2 sources)Alopecia; Translations: [Nonscarring hair loss, unspecified] Resolved: 36-37-6218ZgxazhckMosxu upper respiratory infections (2 sources)Acute maxillary sinusitis; Translations: [Acute maxillary sinusitis, unspecified]Onset: 48-68-3591WkjxycklOznhcigtgji and intestinal abscess (1 source)Abscess of peritoneum; Translations: [Peritoneal abscess]Onset: 32-45-4239Eavpasmg Results Test NameValueInterpretationReference RangeFacilityCNOVon 39-18-7698KOOMHpcgne Visit (PULSAN) NORA GIBBS ([id number]) 1940 F Date Time Provider Department 03/10/25 [...] minimal exertion, such as pushing a vacuum glove cleaner a few times, necessitating rest. This [...] Date Arthritis Breast cancer (HCC) Right; T2N0M0; ER/AL+ HER2 COPD (chronic obstructive pulmonary disease) (HCC) [...] EVERY OTHER DAY. LET (more content not included)...NormalRegional Medical CenterSPIROMETRY WITH DILATOR IF OBSTRUCTEDon 26-70-9711QTJWNINDKH WITH DILATOR IF OBSTRUCTED[address] [place] [address] Test Date: 2025-03-10 Pat Name: NROA GIBBS Department: Room: Gender: Female [employer] Station Attendant: : 1940 Requested By: Order Number: [id number] Reading MD: Sadie Duke MD Interpretive Statements [...] 11:01:02 EDT by Sadie Duke MD ID: [id number] Name: NORA GIBBS Race: White Ht: 60.08 in Wt: 173.28 lbs Age: 84 Gender: Female : 1940 Dx: Other forms of dyspnea Smoking Hx: Non-smoker Doctor: DAINA MONTELONGO Test Date: 03/10/2025 Site: [facility] Tech: Ngoc Zepeda PRE-BRONCH POST-BRONCH [place] [...] 90-100 0.19 29 FIVC 1.53 1.44 -5 BFO17-70 0.24 0.49 1.26 2.48 18 -2.53 0.25 [...] 78 % FEV1/FVC_LLN (%) : 64 % SYI29_LKA (L/S) : 1.63 L/S OMU95_MEAW (L/S) : 1.55 L/S UZP24_HVM (L/S) : 0.09 L/S ZBV84_VPNB (L/S) : 0.09 L/S EKB02_LBXB (L/S) : 0.25 L/S XNE08_MBA (L/S) : 0.08 L/S HVE25_FQH (L/S) : 0.81 L/S VJI65-36%_PRE (L/S) : 0.24 L/S WPD57-36%_POST (L/S) : 0.25 L/S FOB83-40%_PRED (L/S) : 1.26 L/S KLM88-75%_LLN (L/S) : 0.49 L/S PEF_PRE (L/S) : 3.32 L/S PEF_POST (L/S) : 2.88 L/S PEFMAX_LLN (L/S) : 1.98 L/S PEFMAX_ULN (L/S) : 5.00 L/S FET_PRE (S) : 11.32 S FET_POST (S) : 12.09 ormalRegional Medical CenterXR CHEST 2V FRONTAL/LATon 40-67-1848DV CHEST 2V FRONTAL/LAT* * *Final Report* * * DATE OF [...] any questions regarding this interpretation, please call [phone]. If you are unable to reach us at the number above, please feel free to contact [facility] eRadiology at [phone]. [id number] Medical Center36on 69-46-095082Ijqpzdh called stating since isosorbide was increased from 90mg to 120mg daily she's had LE edema. No increased SOB. Said her BP has been good. Any recommendations? She wanted to know if she can go back down to the 90mg daily? Please advise. Thanks.NormalTrinity Health System East CampusFollow-Upon [id number] Nora Gibbs 1940 F Date Provider Department Center 12/29/2024 BALA MORGAN Family History Problem Relation Age of Onset No Known Problems Mother No Known Problems Father Hypertension Brother Family Status - Relation Status Age at Mother Father Brother Level of Service:78204 AL OFFICE/OUTPATIENT ESTABLISHED MOD MDM 30 [facility]30on 95-13-046032Qzu patient is Moderately Stable - Low risk of patient condition declining or worsening The patient's goals for the shift include comfort The clinical goals for the shift include VSS, safetyNormalUniversity of [facility]30The patient is Moderately Stable - Low risk of patient condition declining or worsening The patient's goals for the shift include rest, comfort The clinical goals for the shift include vssNormalUniversity [facility] Methodist HospitalAPOLIPOPROTEIN B-100on 31-16-4233Dowqhlmjp [Mass/Vol]49 mg/gVCym67-502 [facility] CampusComment on above:Result Comment: REFERENCE INTERVAL: Apolipoprotein B A desirable fasting serum Apo B concentration for the prevention of atherosclerotic cardiovascular disease in adults is less than 90 mg/dL. A fasting serum Apo B concentration of 130 mg/dL or greater corresponds to a LDL cholesterol concentration greater than 160 mg/dL and constitutes a risk enhancing factor for atherosclerotic cardiovascular disease in adults. Performed By: [employer] [address] [place] [address] Tile Installer: Paulino العراقي MD, PhD CLIA Number: [id number] By: #### [id number] #### [facility] (BEAKER) [address] [place], [place] [address]EDVQR METABOLIC PANELon 44-22-0692Nuhbe gap [Moles/Vol] 10 mmol/LNormal7-20UnMercy Health St. Charles HospitalComment on above:Performed By: #### [id number] #### [facility] (BEAKER) [address] [facility], [place] [address]Grgqffb [Mass/Vol]8.5 mg/dLLow8.6-10.3UnMercy Health St. Charles HospitalComment on above:Performed By: #### [id number] #### [facility] (BEAKER) [address] [place], [place] [address]Uxmidapr [Moles/Vol]109 mmol/CBzpu61-678BirpufzpfiMercy Health St. Charles HospitalComment on above:Performed By: #### [id number] #### [facility] (BEAKER) [address] [place], [place] [address]IO9 [Moles/Vol]26 mmol/KAxqhwr71-84EmjegjetaiMercy Health St. Charles HospitalComment on above:Performed By: #### [id number] #### [facility] ([facility]ANNER) [address] [place] [address]Lbmbfqpjrm [Mass/Vol]0.98 mg/dLNormal0.60-1.20UnMercy Health St. Charles HospitalComment on above:Performed By: #### [id number] #### [facility] ([facility]) [address] [place] [address]AMNBWBRHEF FILTRATION RATE ML/MIN/1.73 SQ M.QFBYUSFTC28.2 mL/min/1.73m*2Low>60.0UnMercy Health St. Charles HospitalComment on above:Result Comment: [facility]???s [...] potential consequences that do not disproportionately affect anyone group of individuals.Performed By: #### [id number] #### [facility] ([facility]) [address] [place] [address]Iupaukc [Mass/Vol]115 mg/uMNzyo44-967IsjuzcozwaMercy Health St. Charles HospitalComment on above:Performed By: #### [id number] #### [facility] ([facility]) [address] [place] [address]Nztypctgs [Moles/Vol]4.0 mmol/LNormal3.5-5.1UnMercy Health St. Charles HospitalComment on above:Performed By: #### [id number] #### [facility] ([facility]) [address] [place] [address]Vwtkee [Moles/Vol]141 mmol/CIkyfgw753-891LvobnpdfchMercy Health St. Charles HospitalComment on above:Performed By: #### [id number] #### [facility] ([facility]) [address] [place] [address]Hdsm nitrogen [Mass/Vol]23 mg/dLNormal7-25UnMercy Health St. Charles HospitalComment on above:Performed By: #### [id number] #### [facility] ([facility]) [address] [place] [address]YMLI NITROGEN/CREATININE (MASS RATIO) IN SER/PLAS23.5Normal [facility] East CampusComment on above:Performed By: #### [id number] #### [facility] ([facility]) [address] [place] [address]EROhw 52-12-7360Ptnlgseefbk distribution width (RBC) [Ratio]13.6 %Imkite22.5-15.0UnMercy Health St. Charles HospitalComment on above:Performed By: #### [id number] #### [facility] ([facility]) [address] [place] [address]ODGRDCTFZGV MEAN CORPUSCULAR HEMOGLOBIN CONCENTRATION (G/DL) BY RKPGOCARE04.0 g/lHEgrtrv26.0-35.0UnMercy Health St. Charles HospitalComment on above:Performed By: #### [id number] #### [facility] ([facility]) [address] [place], [place] [address]Tlgqwdwqbq (Bld) [Volume fraction]31.8 %Low36.0-45.0UnMercy Health St. Charles HospitalComment on above:Performed By: #### [id number] #### [facility] ([facility]) [address] [place], [place] [address]Naxgcobenq (Bld) [Mass/Vol]10.5 g/dLLow12.0-15.0UnMercy Health St. Charles HospitalComment on above:Performed By: #### [id number] #### [facility] ([facility]) [address] [place], [place] [address]LHR (RBC) [Entitic mass]30.0 jiNolkdf09.0-33.0UnMercy Health St. Charles HospitalComment on above:Performed By: #### [id number] #### [facility] ([facility]) [address] [place], [place] [address]UCU (RBC) [Entitic vol]90.9 jLUogwmq55.0-98.0UnMercy Health St[address] Charles HospitalComment on above:Performed By: #### [id number] #### [facility] ([facility]) [address] [place] [address]SXCIZLOTE (10*3/UL) IN BLOOD AUTOMATED HEEOX198 10*3/uLNormal 150-400UnMercy Health St. Charles HospitalComment on above:Performed By: #### [id number] #### [facility] ([facility]) [address] [place] [address]SPU (Bld) [#/Vol]3.50 10*6/uLLow3.80-5.00UnMercy Health St. Charles HospitalComment on above:Performed By: #### [id number] #### [facility] ([facility]) [address] [place] [address]PPC (Bld) [#/Vol]7.46 10*3/uLNormal4.00-10.60UnMercy Health St. Charles HospitalComment on above:Performed By: #### [id number] #### [facility] ([facility]) [address] [place] [address]EACIU PANELon 35-95-9336SAKF/HDL2.2 mg/dLNormalUniGlenbeigh HospitalComment on above:Performed By: #### [id number] ####[facility] ([facility])[address] [place] [address]Paufeprcmme [Mass/Vol]91 mg/dLLow 120-200UnMercy Health St. Charles HospitalComment on above:Performed By: #### [id number] ####[facility] ([facility])[address] [place] [address]Yvvqmtqep [Mass/Vol]106 mg/dLNormal<150UnMercy Health St. Charles HospitalComment on above:Result Comment: TRIGLYCERIDE REFERENCE RANGE: 20 YEARS AND OLDER CARDIOVASCULAR RISK LESS THAN 150 mg/dL LOW RISK 150 TO 199 mg/dL BORDERLINE RISK 200 mg/dL AND GREATER HIGH RISKPerformed By: #### [id number] ####[facility] [place] [address]Swigowfhh [Mass/Vol]29 mg/dLNormal 0-160UnMercy Health St. Charles HospitalComment on above:Performed By: #### [id number] ####[facility] ([facility] [place] [address]Eqwrnhsxe [Mass/Vol]41 mg/iZDigeka99-88MqqrtzzudkMercy Health St. Charles HospitalComment on above:Performed By: #### [id number] ####[facility] ([facility])[address] [place], [place] [address]IQG HDL CHOL. (LDL+VLDL)50NormalUniversCleveland ClinicComment on above:Performed By: #### [id number] ####[facility] ([facility])[address] [place] [address]DVCNL VLDL-C21 mg/dLNormal0-40 [facility] CampusComment on above:Performed By: #### [id number] ####[facility] ([facility])[address] [place] [address]XPEZXLHRpl 41-20-1674OKJEBHBQZl discharged with belongings including AVS with familyNormal [facility] CampusOrders Onlyon 54-09-1772Ldzffs [id number] Nora Gibbs 1940 F Date Provider Department Center 11/22/2024 ALISE LEVY [facility] [place] [facility] Family History Problem Relation Age of Onset No Known Problems Mother No Known Problems Father Hypertension Brother Family Status - Relation Status Age at Mother Father Brother DeceasedNormalUniversCleveland ClinicBASIC METABOLIC PANELon 93-29-6943Wnhdl gap [Moles/Vol]12 mmol/LNormal7-20UnMercy Health St. Charles HospitalComment on above:Performed By: #### [id number] ####[facility] ([facility] [place], [place] [address]Tmvkpbf [Mass/Vol]8.9 mg/dLNormal 8.6-10.3UnMercy Health St. Charles HospitalComment on above:Performed By: #### [id number] ####[facility] ([facility])[address] [place] [address]Ixgiswxz [Moles/Vol]108 mmol/FLxkw34-106WfivzgcthlMercy Health St. Charles HospitalComment on above:Performed By: #### [id number] ####[facility] ([facility])[address] [place] [address]WE7 [Moles/Vol]23 mmol/ZDzfbch03-55OvjbhmdmrmMercy Health St. Charles HospitalComment on above:Performed By: #### [id number] ####[facility] ([place])[address] [place] [address]Staivrchnk [Mass/Vol]0.91 mg/dLNormal 0.60-1.20UnMercy Health St. Charles HospitalComment on above:Performed By: #### [id number] ####[facility] ([place])[address] [place] [address]CLGWFJAUDQ FILTRATION RATE ML/MIN/1.73 SQ M.MFXIPLLPF86.4 mL/min/1.73m*2Normal>60.0 [facility] CampusComment on above:Result Comment: The [facility]???s estimated glomerular filtration rate (eG FR) will no longer include consideration of race [...] potential consequences that do not disproportionately affect anyone group of individuals. Performed By: #### [id number] ####[facility] ([facility])[address] [place] [address]Krruppg [Mass/Vol]113 mg/tYYtnx20-670TmijxklmhfMercy Health St. Charles HospitalComment on above:Performed By: #### [id number] ####[facility] ([facility])[address] [address]Guykyskkl [Moles/Vol]4.2 mmol/LNormal 3.5-5.1UnMercy Health St. Charles HospitalComment on above:Performed By: #### [id number] ####[facility] ([place])[address] [address]Mxyqap [Moles/Vol]139 mmol/PJzcnnb041-301XfyjnyfjihMercy Health St. Charles HospitalComment on above:Performed By: #### [id number] ####[facility] ([place])[address] [address]Nnzq nitrogen [Mass/Vol]22 mg/dLNormal7-25UnMercy Health St. Charles HospitalComment on above:Performed By: #### [id number] ####[facility] ([place])[address] [address]ZKYM NITROGEN/CREATININE (MASS RATIO) IN SER/PLAS24.2NormalUnMercy Health St. Charles HospitalComment on above: Performed By: #### [id number] ####[facility] ([place])[address] [address]TUPpn 57-71-9116Zeyjtlcdiyb distribution width (RBC) [Ratio]13.6 % Wmabvl03.5-15.0UnMercy Health St. Charles HospitalComment on above:Performed By: #### [id number] #### [facility] ([place]) [address] [address]COFXXGUXYQY MEAN CORPUSCULAR HEMOGLOBIN CONCENTRATION (G/DL) BY UOSHPZXVV51.0 g/vQHwawfz97.0-35.0UnMercy Health St. Charles HospitalComment on above:Performed By: #### [id number] #### [facility] ([place]) [address] [address]Xskefbmucu (Bld) [Volume fraction]35.3 %Low36.0-45.0UnMercy Health St. Charles HospitalComment on above:Performed By: #### [id number] #### [facility] ([place]) [address] [address]Bbslddgaze (Bld) [Mass/Vol]11.3 g/dLLow12.0-15.0UnMercy Health St. Charles HospitalComment on above:Performed By: #### [id number] #### [facility] ([place]) [address] [place], [place] [address]NMN (RBC) [Entitic mass]29.7 czHwazpg62.0-33.0UnMercy Health St. Charles HospitalComment on above:Performed By: #### [id number] #### [facility] ([place]) [address] [place], [place] [address]IIR (RBC) [Entitic vol]92.7 iTEwnvky24.0-98.0UnMercy Health St. Charles HospitalComment on above:Performed By: #### [id number] #### [facility] ([facility]) [address] [place], [place] [address]CNNFTGUDM (10*3/UL) IN BLOOD AUTOMATED YVLLY198 10*3/uLNormal 150-400UnMercy Health St. Charles HospitalComment on above:Performed By: #### [id number] #### [facility] ([place]) [address] [place], [place] [address]WHT (Bld) [#/Vol]3.81 10*6/uLNormal3.80-5.00UnMercy Health St. Charles HospitalComment on above:Performed By: #### [id number] #### [facility] ([place]) [address] [place], [place] [address]WZB (Bld) [#/Vol]11.10 10*3/uLHigh4.00-10.60UnMercy Health St. Charles HospitalComment on above:Performed By: #### [id number] #### [facility] ([place]) [address] [place], [place] [address]YGzb 12-07-6748XZMjinpwh Of Present Illness Nora Gibbs is a [...] has a past medical history of Cancer ([facility]), COPD (chronic obstructive pulmonary disease) ([facility]), Coronary artery disease, and Hypertension. [...] Shortness of breath Coronary artery disease involving modoc coronary artery of modoc heart with other form of an (more content not included)...NormalTrinity Health System East CampusBasophils Auto (Bld) [#/Vol]on 36-71-0137Iurlwqlsu (Bld) [#/Vol] Automated basophil count0.0-0.1FHighland District HospitalBasophils (Bld) [#/Vol]0.0 10 3/uL0.0-0.1FHighland District HospitalBasophils/100 WBC Auto (Bld)on 77-19-2521Rpykeesir/100 WBC (Bld)Automated basophil %0.2-2.0[facility]red HealthcareBasophils/100 WBC (Bld)0.4 %0.2-2.0[facility] HealthcareEosinophils/100 WBC Auto (Bld)on 35-89-3629Zvlvikrohud/100 WBC (Bld)Automated eosinophil %0.9-7.0[facility] Eosinophils/100 WBC (Bld)4.6 %0.9-7.0[facility] Erythrocyte distribution width Auto (RBC) [Ratio]on 38-22-3818Bnosmgwfxcm distribution width (RBC) [Ratio]Erythrocyte distribution width [Ratio] by Automated count11.0-15.0[facility]red HealthcareErythrocyte distribution width (RBC) [Ratio]13.4 %11.0-15.0[facility] Estimated glomerular filtration rate (GFR) non- Americanon 11-14-2024 GFR/1.73 sq M.predicted among non-blacks MDRD (S/P/Bld) [Vol rate/Area]Estimated glomerular filtration rate (GFR) non- AmericanLow>=60 mL/min/1.73m 2 [facility]red HealthcareGFR/1.73 sq M.predicted among non-blacks MDRD (S/P/Bld) [Vol rate/Area]48 mL/min/{1.73_m2}Low>=60 mL/min/1.73m 2FHighland District HospitalHematocrit Auto (Bld) [Volume fraction]on 11-14-2024 Hematocrit (Bld) [Volume fraction]Hematocrit [Volume Fraction] of Blood by Automated count36.0-48.0[facility]red HealthcareHematocrit (Bld) [Volume fraction]37.3 %36.0-48.0[facility] HealthcareHemoglobin [Mass/volume] in Bloodon 31-18-5163Asrquhfxfb (Bld) [Mass/Vol]Hemoglobin [Mass/volume] in Blood12.0-16.0[facility]red HealthcareHemoglobin (Bld) [Mass/Vol]12.3 g/dL12.0-16.0[facility] HealthcareLaboratory - Chemistry and Chemistry - challengeon 59-49-6566Doyeolv [Mass/Vol]9.5 mg/dL 8.5-10.1FHighland District HospitalChloride [Moles/Vol]107 mmol/L98-107 [facility] HealthcareCO2 [Moles/Vol]27.0 mmol/L21.0-32.0[facility] HealthcareCreatinine [Mass/Vol]1.08 mg/dLHigh0.55-1.02Kind[facility] HealthcareGFR/1.73 sq M.predicted MDRD (S/P/Bld) [Vol rate/Area]58 mL/min/{1.73_m2}Low>=60 mL/min/1.73m 2FHighland District HospitalGlucose [Mass/Vol]139 mg/rQOlri86-839GrxwtfhxaKindred HealthcarePotassium [Moles/Vol]4.0 mmol/L3.5-5.1FSt. Mary's Medical Centerodium [Moles/Vol] 143 mmol/B820-818HwpxqckuiKindred HealthcareUrea nitrogen [Mass/Vol]24.0 mg/dLHigh7.0-18.0[facility]red HealthcareUrea nitrogen/Creatinine [Mass ratio]22.2 mg/mgKindred HealthcareLaboratory - Hematology and Cell countson 16-24-9429Qeclirxr granulocytes/100 WBC (Bld)0.3 %0.0-0.5FHighland District HospitalLeukocytes [#/volume] corrected for nucleated erythrocytes in Blood by Automated counon 03-10-9856ECW corrected for nucl RBC Auto (Bld) [#/Vol]Leukocytes [#/volume] corrected for nucleated erythrocytes in Blood by Automated coun4.0-11.0[facility] HealthcareWBC corrected for nucl RBC Auto (Bld) [#/Vol]6.8 10 3/uL4.0-11.0[facility]red HealthcareLymphocytes Auto (Bld) [#/Vol]on 07-85-8206Iytldwtryfx (Bld) [#/Vol] Lymphocytes [#/volume] in Blood by Automated count1.2-3.8Kindred HealthcareLymphocytes (Bld) [#/Vol]1.2 10 3/uL1.2-3.8Kindred HealthcareLymphocytes/100 WBC Auto (Bld)on 32-45-6809Oejbzhxsfbg/100 WBC (Bld)Lymphocytes/100 leukocytes in Blood by Automated akqvaJjw49.5-60.0[facility]red HealthcareLymphocytes/100 WBC (Bld)18.2 %Low20.5-60.0St. [facility]'s Medical CenterH Auto (RBC) [Entitic mass]on 62-97-1281VJV (RBC) [Entitic mass]MCH [Entitic mass] by Automated count26.7-34.0[facility] (RBC) [Entitic mass]30.2 pg26.7-34.0St. Mary's Medical CenterHC Auto (RBC) [Mass/Vol]on 02-63-6425EPIE (RBC) [Mass/Vol]MCHC [Mass/volume] by Automated count29.9-35.2FTrinity Health System East CampusHC (RBC) [Mass/Vol]33.0 g/dL29.9-35.2FTrinity Health System East CampusV Auto (RBC) [Entitic vol]on 11-42-9103QTP (RBC) [Entitic vol]MCV [Entitic volume] by Automated count81.0-99.0St. Mary's Medical CenterV (RBC) [Entitic vol] 91.6 fL81.0-99.0[facility]red HealthcareMonocytes Auto (Bld) [#/Vol]on 20-08-0871Hjkasehge (Bld) [#/Vol]Automated blood monocyte count0.3-0.8Kindred HealthcareMonocytes (Bld) [#/Vol]0.7 10 3/uL0.3-0.8[facility]red HealthcareMonocytes/100 WBC Auto (Bld)on 71-61-9137Uiplacffk/100 WBC (Bld)Automated monocyte %1.7-12.0[facility] Monocytes/100 WBC (Bld)10.4 %1.7-12.0[facility] Neutrophils Auto (Bld) [#/Vol]on 12-38-4991Jcmpklyrobl (Bld) [#/Vol]Neutrophils [#/volume] in Blood by Automated count1.4-6.5FHighland District Hospital Neutrophils (Bld) [#/Vol]4.5 10 3/uL1.4-6.5FHighland District Hospital Neutrophils/100 WBC Auto (Bld)on 14-17-2664Xolxppwktmf/100 WBC (Bld)Automated neutrophil %43.0-75.0[facility]red HealthcareNeutrophils/100 WBC (Bld) 66.1 %43.0-75.0[facility] HealthcareNo Panel Informationon 43-26-9216Rnwdfoizuki # (Auto)0.3 10 3/uL0.0-0.7FHighland District HospitalImmature Granulocyte # (Auto)0.02 10 3/uL0.00-0.03Kindred HealthcareOrders Onlyon 69-24-3535Pcwrdr [id number] Nora Gibbs 1940 F Date Provider Department Center 11/14/2024 BALA MORGAN [facility]ARD [facility] Family History Problem Relation Age of Onset No Known Problems Mother No Known Problems Father Hypertension Brother Family Status - Relation Status Age at Mother Father Brother DeceasedNormalUniversity of North Central Baptist HospitalPlatelet mean volume Auto (Bld) [Entitic vol]on 99-95-7347Vtmrimgi mean volume (Bld) [Entitic vol] Platelet mean volume [Entitic volume] in Blood by Automated count9.5-13.5 Kindred HealthcarePlatelet mean volume (Bld) [Entitic vol]11.7 fL 9.5-13.5FHighland District HospitalPlatelets Auto (Bld) [#/Vol]on 83-57-6934Couvkfgpp (Bld) [#/Vol]Platelets [#/volume] in Blood by Automated rbilu853-240AhbcckihmKindred HealthcarePlatelets (Bld) [#/Vol]184 10 3/uL 150-450Kindred HealthcareRBC Auto (Bld) [#/Vol]on 76-04-8586TYQ (d) [#/Vol]Erythrocytes [#/volume] in Blood by Automated countLow4.20-5.40 [facility] HealthcareRBC (Bld) [#/Vol]4.07 10 6/uLLow4.20-5.40 [facility]cy Hospitalerum or plasma anion gap determinationon 09-32-5132Czvks gap [Moles/Vol]Serum or plasma anion gap determinationKindred HealthcareAnion gap [Moles/Vol]13.0 mmol/LFHighland District HospitalOrders Onlyon 28-59-1306Ctbhny [id number] MeaganNora mcintosh 1940 F Date Provider Department Center 11/13/2024 JANY PHIPPS [facility] [place] [facility] Family History Problem Relation Age of Onset No Known Problems Mother No Known Problems Father Hypertension Brother Family Status - Relation Status Age at Mother Father Brother DeceasedNormalUniGlenbeigh Hospital36 Patient called me back to say she feels better and is breathing better, but still SOB. I could tell on the phone that she sounded less SOB. I LM with Marita in the lab to see if Dr. Zepeda had any openings for cath sooner than her originally scheduled cath on 11/21/2024. Told patient I would let her know if we could move her up.[facility]36 Patient called c/o SOB. She could barely speak on the phone. Says she's been to [facility] ED twice the past 2 weeks and [...] with Nora and he is ok with this.[facility] HospitalTelephone on [id number] Nora Gibbs 1940 F Date Provider Department Center 10/13/2024 Mike8-VIRI MAZARIEGOS CARD [facility] Family History Problem Relation Age of Onset No Known Problems Mother No Known Problems Father Hypertension Brother Family Status - Relation Status Age at Mother Father Brother DeceasedNormalUniversity of North Central Baptist HospitalBasophils Auto (Bld) [#/Vol]on 61-47-6032Cvevhjlgw (Bld) [#/Vol]Automated basophil count0.0-0.1 [facility] HealthcareBasophils (Bld) [#/Vol]0.0 10 3/uL0.0-0.1 [facility] HealthcareBasophils/100 WBC Auto (Bld)on 10-09-2024 Basophils/100 WBC (Bld)Automated basophil %0.2-2.0[facility]red HealthcareBasophils/100 WBC (Bld)0.3 %0.2-2.0[facility] Eosinophils/100 WBC Auto (Bld)on 52-33-7578Txwvopzntwg/100 WBC (Bld)Automated eosinophil %0.9-7.0[facility] HealthcareEosinophils/100 WBC (Bld)1.8 %0.9-7.0[facility]red HealthcareErythrocyte distribution width Auto (RBC) [Ratio]on 45-34-7395Ywepepgsqwz distribution width (RBC) [Ratio] Erythrocyte distribution width [Ratio] by Automated count11.0-15.0[facility]red HealthcareErythrocyte distribution width (RBC) [Ratio]12.7 % 11.0-15.0[facility] HealthcareEstimated glomerular filtration rate (GFR) non- Americanon 92-06-8589ZPQ/1.73 sq M.predicted among non-blacks MDRD (S/P/Bld) [Vol rate/Area]48 mL/min/{1.73_m2}Low>=60 mL/min/1.73m 2FHighland District HospitalFibrin D-dimer [Presence] in Platelet poor plasma by Latex agglutinationon 40-07-4707Ieuupp D-dimer LA Ql (PPP)Fibrin D-dimer [Presence] in Platelet poor plasma by Latex agglutinationCritically high<=0.59 Kindred HealthcareComment on above:RESULTS CALLED TO DR. Winkler in D-Dimer concentration observed withthromboembolic events can be variable due to localization,size, and age of the thrombus. Therefore, a thromboembolicevent cannot be diagnosed with certainty on the basis of thereference range. D-Dimers may also be elevated for a varietyof disorders including advanced age, , coronarydisease, cancer, liver disease, infection, inflammation,hematoma, DIC, trauma, post-surgery, diabetes, thrombolyticor anticoagulanttherapy, stress, and generalizedhospitalization. Fibrin D-dimer LA Ql (PPP)1.17 mg/L FEUCritically high<=0.59Kindred HealthcareComment on above:RESULTS CALLED TO DR. Winkler in D-Dimer concentration observed withthromboembolic events can be variable due to localization,size, and age of the thrombus. Therefore, a thromboembolicevent ca nnot be diagnosed with certainty on the basis of thereference range. D-Dimers may also be elevated for a varietyof disorders including advanced age, , coronarydisease, cancer, liver disease,infection, inflammation,hematoma, DIC, trauma, post-surgery, diabetes, thrombolyticor anticoagulanttherapy, stress, and generalizedhospitalization.Globulin Calc (S) [Mass/Vol]on 61-85-5309Jczzrfcg (S) [Mass/Vol]4.3 g/dLKindred HealthcareHematocrit Auto (Bld) [Volume fraction]on 04-51-6193Fcimdauefb (Bld) [Volume fraction]Hematocrit [Volume Fraction] of Blood by Automated count 36.0-48.0Kindred HealthcareHematocrit (Bld) [Volume fraction]36.7 %36.0-48.0[facility]red HealthcareHemoglobin [Mass/volume] in Bloodon 61-39-0584Qusvusuvaj (Bld) [Mass/Vol]Hemoglobin [Mass/volume] in Blood12.0-16.0 [facility]red HealthcareHemoglobin (Bld) [Mass/Vol]12.0 g/dL12.0-16.0 [facility] HealthcareLaboratory - Chemistry and Chemistry - challengeon 02-53-8851Kkjvotg [Mass/Vol]3.0 g/dLLow3.4-5.0[facility]red HealthcareALP [Catalytic activity/Vol]95 U/U15-492EjcixbvxeKindred HealthcareALT [Catalytic activity/Vol]28 U/E10-36CbczrsylfKindred Healthcare AST [Catalytic activity/Vol]25 U/E27-27YknwouhieKindred Healthcare Bilirubin [Mass/Vol]0.5 mg/dL0.2-1.0[facility]red HealthcareCalcium [Mass/Vol]8.7 mg/dL8.5-10.1FHighland District HospitalChloride [Moles/Vol] 110 mmol/OAjly30-022AowetxaakKindred HealthcareCO2 [Moles/Vol]27.5 mmol/L 21.0-32.0[facility] HealthcareCreatinine [Mass/Vol]1.09 mg/dLHigh 0.55-1.02Kindred HealthcareGFR/1.73 sq M.predicted MDRD (S/P/Bld) [Vol rate/Area]58 mL/min/{1.73_m2}Low>=60 mL/min/1.73m 2FHighland District HospitalGlucose [Mass/Vol]117 mg/iCOfxn26-306IxxzoyqpqKindred HealthcareMagnesium [Mass/Vol]1.9 mg/dL1.8-2.4FHighland District Hospital Natriuretic peptide B (Bld) [Mass/Vol]1102.0 pg/mL<=1800.0Kindred HealthcarePotassium [Moles/Vol]4.4 mmol/L3.5-5.1FHighland District HospitalProtein [Mass/Vol]7.3 g/dL6.4-8.2FSt. Mary's Medical Centerodium [Moles/Vol]148 mmol/HFrcz842-740YmzcshutqKindred HealthcareUrea nitrogen [Mass/Vol]22.0 mg/dLHigh7.0-18.0Kindred HealthcareUrea nitrogen/Creatinine [Mass ratio]20.2 mg/mgKindred Healthcare Laboratory - Hematology and Cell countson 74-54-4459TFI (Bld) [Velocity]120 mm/h High<=30Kindred HealthcareImmature granulocytes/100 WBC (Bld)0.4 %0.0-0.5FHighland District HospitalLeukocytes [#/volume] corrected for nucleated erythrocytes in Blood by Automated counon 09-60-7838CZB corrected for nucl RBC Auto (Bld) [#/Vol]Leukocytes [#/volume] corrected for nucleated erythrocytes in Blood by Automated counHigh4.0-11.0[facility]red HealthcareWBC corrected for nucl RBC Auto (Bld) [#/Vol]12.1 10 3/uLHigh4.0-11.0 [facility]red HealthcareLymphocytes Auto (Bld) [#/Vol]on 10-09-2024 Lymphocytes (Bld) [#/Vol]Lymphocytes [#/volume] in Blood by Automated countLow 1.2-3.8Kindred HealthcareLymphocytes (Bld) [#/Vol]0.9 10 3/uLLow 1.2-3.8[facility]red HealthcareLymphocytes/100 WBC Auto (Bld)on 50-10-4881Bxyvdpumoch/100 WBC (Bld)Lymphocytes/100 leukocytes in Blood by Automated ydxynVbv83.5-60.0[facility]red HealthcareLymphocytes/100 WBC (Bld)7.5 %Low20.5-60.0Kindred HealthcareMCH Auto (RBC) [Entitic mass]on 62-71-4347ERS (RBC) [Entitic mass]MCH [Entitic mass] by Automated count 26.7-34.0Kindred HealthcareMCH (RBC) [Entitic mass]29.9 pg 26.7-34.0Kindred HealthcareMCHC Auto (RBC) [Mass/Vol]on 85-07-0043KUGL (RBC) [Mass/Vol]MCHC [Mass/volume] by Automated count29.9-35.2 Kindred HealthcareMCHC (RBC) [Mass/Vol]32.7 g/dL29.9-35.2 [facility] HealthcareMCV Auto (RBC) [Entitic vol]on 45-47-5020AHT (RBC) [Entitic vol]MCV [Entitic volume] by Automated count81.0-99.0St. Mary's Medical CenterV (RBC) [Entitic vol]91.3 fL81.0-99.0[facility]red HealthcareMonocytes Auto (Bld) [#/Vol]on 52-60-4404Kstjicunu (Bld) [#/Vol] Automated blood monocyte countHigh0.3-0.8[facility] Monocytes (Bld) [#/Vol]1.1 10 3/uLHigh0.3-0.8[facility] Monocytes/100 WBC Auto (Bld)on 67-76-3526Arvmrsxhp/100 WBC (Bld)Automated monocyte %1.7-12.0[facility]red HealthcareMonocytes/100 WBC (Bld)8.9 % 1.7-12.0[facility]red HealthcareNeutrophils Auto (Bld) [#/Vol]on 10-81-8100Wdynvoqpjul (Bld) [#/Vol]Neutrophils [#/volume] in Blood by Automated countHigh1.4-6.5FHighland District HospitalNeutrophils (Bld) [#/Vol]9.8 10 3/uLHigh1.4-6.5FHighland District HospitalNeutrophils/100 WBC Auto (Bld) on 00-91-0085Oirlqepnkam/100 WBC (Bld)Automated neutrophil %High43.0-75.0 Kindred HealthcareNeutrophils/100 WBC (Bld)81.1 %High43.0-75.0 [facility] HealthcareNo Panel Informationon 63-37-1069Dcysoivjfzk # (Auto)0.2 10 3/uL0.0-0.7FHighland District HospitalImmature Granulocyte # (Auto)0.05 10 3/uLHigh0.00-0.03Kindred HealthcareTroponin I High Sensitivity8.0 pg/mL4.0-51.3FHighland District HospitalComment on above: CUT-OFF POINTS HAVE BEEN ESTABLISHED BASED ON THE FOURTHUNIVERSAL DEFINITION OF MYOCARDIAL INFARCTION. THE UPPERREFERENCE LIMIT (URL) OF TROPONIN, DEFINED THE 99THPERCENTILE OF cTnI DISTRIBUTION IN A REFERENCE POPULATION,HAS BEEN CONFIRMED THE DECISION THRESHOLD FOR MIDIAGNOSIS.99TH PERCENTILE = 51.4 PG/MLNOTE: HIGH-SENSITIVITY TROPONIN ASSAY IS NOT INTENDED TO BEUSED IN ISOLATION BUT SHOULD BE INTERPRETED IN CONJUNCTIONWITH OTHER DIAGNOSTIC AND CLINICAL INFORMATION.Venous Blood Partial Pressure CO238.8 mm[Hg]Low40.0-52.0 Kindred HealthcareVenous Blood pH7.4297.330-7.430Kindred HealthcarePlatelet mean volume Auto (Bld) [Entitic vol]on 05-65-3173Krxkbkqa mean volume (Bld) [Entitic vol]Platelet mean volume [Entitic volume] in Blood by Automated count9.5-13.5FHighland District Hospital Platelet mean volume (Bld) [Entitic vol]10.4 fL9.5-13.5FHighland District HospitalPlatelets Auto (Bld) [#/Vol]on 18-50-4959Dscagdftd (Bld) [#/Vol] Platelets [#/volume] in Blood by Automated ndgne037-664TpskptzqaKindred HealthcarePlatelets (Bld) [#/Vol]240 10 3/pT667-230TyninpvnrKindred HealthcareRBC Auto (Bld) [#/Vol]on 44-91-1048DBD (Bld) [#/Vol]Erythrocytes [#/volume] in Blood by Automated countLow4.20-5.40Kindred HealthcareRBC (Bld) [#/Vol]4.02 10 6/uLLow4.20-5.40[facility] Serum or plasma albumin/globulin mass ratioon 25-34-8064Uymgmzi/Globulin [Mass ratio]0.7 {ratio}[facility]cy Hospitalerum or plasma anion gap determinationon 35-59-2933Mbemn gap [Moles/Vol]14.9 mmol/LFHighland District HospitalBasophils Auto (Bld) [#/Vol]on 96-72-2916Govxabchf (Bld) [#/Vol] Automated basophil count0.0-0.1FHighland District HospitalBasophils (Bld) [#/Vol]0.0 10 3/uL0.0-0.1FHighland District HospitalBasophils/100 WBC Auto (Bld)on 14-59-2033Kqhxzaown/100 WBC (Bld)Automated basophil %0.2-2.0[facility] HealthcareBasophils/100 WBC (Bld)0.2 %0.2-2.0[facility] HealthcareEosinophils/100 WBC Auto (Bld)on 52-62-3153Oiokvlbjbym/100 WBC (Bld)Automated eosinophil %0.9-7.0[facility] Eosinophils/100 WBC (Bld)1.5 %0.9-7.0[facility] Erythrocyte distribution width Auto (RBC) [Ratio]on 89-03-7636Tdoxbtfgcji distribution width (RBC) [Ratio]Erythrocyte distribution width [Ratio] by Automated count11.0-15.0[facility] HealthcareErythrocyte distribution width (RBC) [Ratio]13.1 %11.0-15.0[facility] Estimated glomerular filtration rate (GFR) non- Americanon 10-04-2024 GFR/1.73 sq M.predicted among non-blacks MDRD (S/P/Bld) [Vol rate/Area]Estimated glomerular filtration rate (GFR) non- AmericanLow>=60 mL/min/1.73m 2 [facility] HealthcareGFR/1.73 sq M.predicted among non-blacks MDRD (S/P/Bld) [Vol rate/Area]36 mL/min/{1.73_m2}Low>=60 mL/min/1.73m 2FNewark Hospital Medical CenterHematocrit Auto (Bld) [Volume fraction]on 10-04-2024 Hematocrit (Bld) [Volume fraction]Hematocrit [Volume Fraction] of Blood by Automated count36.0-48.0[facility] HealthcareHematocrit (Bld) [Volume fraction]38.3 %36.0-48.0[facility] HealthcareHemoglobin [Mass/volume] in Bloodon 88-44-3887Jbmutprhff (Bld) [Mass/Vol]Hemoglobin [Mass/volume] in Blood12.0-16.0[facility] HealthcareHemoglobin (Bld) [Mass/Vol]12.4 g/dL12.0-16.0[facility] HealthcareLaboratory - Chemistry and Chemistry - challengeon 23-40-5808Pxccsmf [Mass/Vol]9.3 mg/dL 8.5-10.1FHighland District HospitalChloride [Moles/Vol]103 mmol/L98-107 [facility] HealthcareCO2 [Moles/Vol]28.5 mmol/L21.0-32.0Kindred HealthcareCreatinine [Mass/Vol]1.38 mg/dLHigh0.55-1.02Kindred HealthcareGFR/1.73 sq M.predicted MDRD (S/P/Bld) [Vol rate/Area]44 mL/min/{1.73_m2}Low>=60 mL/min/1.73m 2FHighland District HospitalGlucose [Mass/Vol]145 mg/vGLqyw89-142RdpsacjkaKindred HealthcareNatriuretic peptide B (Bld) [Mass/Vol]496.0 pg/mL<=1800.0[facility] Potassium [Moles/Vol]4.2 mmol/L3.5-5.1FSt. Mary's Medical Centerodium [Moles/Vol]141 mmol/G242-863RdsbnpheuKindred HealthcareUrea nitrogen [Mass/Vol]24.0 mg/dLHigh7.0-18.0[facility]red HealthcareUrea nitrogen/Creatinine [Mass ratio]17.4 mg/mgKindred Healthcare Laboratory - Hematology and Cell countson 57-30-6320Zkhlrvsz granulocytes/100 WBC (Bld)0.3 %0.0-0.5FHighland District HospitalLaboratory - Microbiology and Antimicrobial susceptibilityon 10-04-2024S. pyogenes Ag Ql (Unsp spec) NegativeCleveland Clinic Mercy HospitalARS-CoV-2 (COVID-19) RNA TOMMY+probe Ql (Unsp spec)NegativeNEGATIVEKindred HealthcareComment on above: This test has not been FDA cleared or approved, but has beenauthorized [...] diagnosis of Covid-19 under section 564(b)(1) of the[facility], [place] 360bbb-3(b)(1), unless the declaration isterminated or authorization is revoked sooner.Leukocytes [#/volume] corrected for nucleated erythrocytes in Blood by Automated counon 77-76-7756GNT corrected for nucl RBC Auto (Bld) [#/Vol]Leukocytes [#/volume] corrected for nucleated erythrocytes in Blood by Automated counHigh4.0-11.0Kindred HealthcareWBC corrected for nucl RBC Auto (Bld) [#/Vol]12.3 10 3/uLHigh4.0-11.0 Kindred HealthcareLymphocytes Auto (Bld) [#/Vol]on 10-04-2024 Lymphocytes (Bld) [#/Vol]Lymphocytes [#/volume] in Blood by Automated count 1.2-3.8Kindred HealthcareLymphocytes (Bld) [#/Vol]1.3 10 3/uL 1.2-3.8Kindred HealthcareLymphocytes/100 WBC Auto (Bld)on 89-32-4799Ccdwggyelwh/100 WBC (Bld)Lymphocytes/100 leukocytes in Blood by Automated qxubgFwh95.5-60.0[facility]red HealthcareLymphocytes/100 WBC (Bld)10.7 %Low20.5-60.0[facility] Auto (RBC) [Entitic mass]on 76-68-8987UPQ (RBC) [Entitic mass]MCH [Entitic mass] by Automated count 26.7-34.0[facility] (RBC) [Entitic mass]30.0 pg 26.7-34.0St. Mary's Medical CenterHC Auto (RBC) [Mass/Vol]on 87-38-2498SOYG (RBC) [Mass/Vol]MCHC [Mass/volume] by Automated count29.9-35.2 [facility] CenterHC (RBC) [Mass/Vol]32.4 g/dL29.9-35.2 [facility] CenterV Auto (RBC) [Entitic vol]on 08-27-1871CKI (RBC) [Entitic vol]MCV [Entitic volume] by Automated count81.0-99.0St. [facility] Medical CenterV (RBC) [Entitic vol]92.7 fL81.0-99.0Kindred HealthcareMonocytes Auto (Bld) [#/Vol]on 41-47-6786Fhghzrzpo (Bld) [#/Vol] Automated blood monocyte countHigh0.3-0.8[facility] Monocytes (Bld) [#/Vol]1.4 10 3/uLHigh0.3-0.8[facility] Monocytes/100 WBC Auto (Bld)on 82-50-5069Ezrxrsoze/100 WBC (Bld)Automated monocyte %1.7-12.0Kindred HealthcareMonocytes/100 WBC (Bld)11.5 % 1.7-12.0Kindred HealthcareNeutrophils Auto (Bld) [#/Vol]on 48-16-9822Emshssejtxr (Bld) [#/Vol]Neutrophils [#/volume] in Blood by Automated countHigh1.4-6.5FHighland District HospitalNeutrophils (Bld) [#/Vol]9.3 10 3/uLHigh1.4-6.5FHighland District HospitalNeutrophils/100 WBC Auto (Bld) on 97-69-3478Sqfvknhinyf/100 WBC (Bld)Automated neutrophil %High43.0-75.0 Kindred HealthcareNeutrophils/100 WBC (Bld)75.8 %High43.0-75.0 [facility] HealthcareNo Panel Informationon 19-64-4030Krlycky Influenza Type A AntigenNegativeKindred HealthcareComment on above:Negative for Flu A protein antigen. Infection due to Flu Acannot be ruled out. Flu A antigen in thesample may bebelow the detection limit of the test. Bedside Influenza Type B AntigenNegativeKindred HealthcareComment on above:Negative for Flu B protein antigen. Infection due to Flu Bcannot be ruled out. Flu B antigen in thesample may bebelow the detection limit of the test.Eosinophils # (Auto)0.2 10 3/uL0.0-0.7FHighland District Hospital Immature Granulocyte # (Auto)0.04 10 3/uLHigh0.00-0.03Kindred HealthcareTroponin I High Sensitivity5.2 pg/mL4.0-51.3FHighland District HospitalComment on above:CUT-OFF POINTS HAVE BEEN ESTABLISHED BASED ON THE FOURTHUNIVERSAL DEFINITION OF MYOCARDIAL INFARCTION. THE UPPERREFERENCE LIMIT (URL) OF TROPONIN, DEFINED THE 99THPERCENTILE OF cTnI DISTRIBUTION IN A REFERENCE POPULATION,HAS BEEN CONFIRMED THE DECISION THRESHOLD FOR MIDIAGNOSIS.99TH PERCENTILE = 51.4 PG/MLNOTE: HIGH-SENSITIVITY TROPONIN ASSAY IS NOT INTENDED TO BEUSED IN ISOLATION BUT SHOULD BE INTERPRETED IN CONJUNCTIONWITH OTHER DIAGNOSTIC AND CLINICAL INFORMATION.Platelet mean volume Auto (Bld) [Entitic vol]on 15-81-1008Zdvabwii mean volume (Bld) [Entitic vol] Platelet mean volume [Entitic volume] in Blood by Automated count9.5-13.5 Kindred HealthcarePlatelet mean volume (Bld) [Entitic vol]11.5 fL 9.5-13.5FHighland District HospitalPlatelets Auto (Bld) [#/Vol]on 90-89-7769Ahrifbmil (Bld) [#/Vol]Platelets [#/volume] in Blood by Automated ecqfz342-254JdgbjihizKindred HealthcarePlatelets (Bld) [#/Vol]186 10 3/uL 150-450Kindred HealthcareRBC Auto (Bld) [#/Vol]on 78-23-4444FVU (Bld) [#/Vol]Erythrocytes [#/volume] in Blood by Automated countLow4.20-5.40 Kindred HealthcareRBC (Bld) [#/Vol]4.13 10 6/uLLow4.20-5.40 [facility] Hospitalerum or plasma anion gap determinationon 03-85-5117Buzlv gap [Moles/Vol]Serum or plasma anion gap determinationKindred HealthcareAnion gap [Moles/Vol]13.7 mmol/LFHighland District HospitalOffice Visiton 29-89-2614Puotrr-up [id number] Nora Gibbs 1940 F Date Provider Department Center 09/26/2024 BALA MORGAN EMIL Jacques Family History Problem Relation Age of Onset No Known Problems Mother No Known Problems Father Hypertension Brother Family Status - Relation Status Age at Mother Father Brother Level of Service:72985 [place] OFFICE/OUTPATIENT ESTABLISHED [facility]Office [facility]iton 41-07-1302Gzqkfo-up visit [id number] Nora Gibbs 1940 F Date Provider Department Center 07/21/2024 BALA MORGAN EMIL Jacques Family History Problem Relation Age of Onset No Known Problems Mother No Known Problems Father Family Status - Relation Status Age at Mother Father Level of Service:35947 [place] OFFICE/OUTPATIENT ESTABLISHED [facility] 30 [facility] HospitalBasophils Auto (Bld) [#/Vol]on 05-27-2024 Basophils (Bld) [#/Vol]Automated basophil count0.0-0.1FHighland District HospitalBasophils/100 WBC Auto (Bld)on 25-88-3383Ufiazeiqv/100 WBC (Bld)Automated basophil %0.2-2.0Kindred HealthcareCholesterol in LDL Calc [Mass/Vol]on 64-78-9582Unziqtcyido in LDL [Mass/Vol]Cholesterol in LDL [Mass/volume] in Serum or Plasma by calculationKindred Healthcare Comment on above:<100 mg/dl TSBCTSC554-014 mg/dl NEAR OR ABOVE DNPVBLE105-536 mg/dl BORDERLINE NJHB139-191 mg/dl HIGH>190 mg/dl VERY HIGHCholesterol in VLDL Calc [Mass/Vol]on 98-38-7225Jtvyxpotzqw in VLDL [Mass/Vol]Cholesterol in VLDL [Mass/volume] in Serum or Plasma by calculationKindred Healthcare Eosinophils/100 WBC Auto (Bld)on 51-97-2332Dihctqfnvzd/100 WBC (Bld)Automated eosinophil %0.9-7.0Kindred HealthcareErythrocyte distribution width Auto (RBC) [Ratio]on 84-70-4457Clquzmqeybq distribution width (RBC) [Ratio]Erythrocyte distribution width [Ratio] by Automated count11.0-15.0 [facility] HealthcareEstimated glomerular filtration rate (GFR) non- Americanon 76-14-9095TJJ/1.73 sq M.predicted among non-blacks MDRD (S/P/Bld) [Vol rate/Area]Estimated glomerular filtration rate (GFR) non- AmericanLow>=60 mL/min/1.73m 2FHighland District HospitalGlobulin Calc (S) [Mass/Vol]on 18-75-1721Pwyrkqsu (S) [Mass/Vol]Serum globulin measurement by calculation (mass/volume)Kindred HealthcareHematocrit Auto (Bld) [Volume fraction]on 29-76-0789Dscpapjifz (Bld) [Volume fraction]Hematocrit [Volume Fraction] of Blood by Automated count36.0-48.0Kindred HealthcareHemoglobin [Mass/volume] in Bloodon 92-85-9139Objigujbyp (Bld) [Mass/Vol] Hemoglobin [Mass/volume] in Blood12.0-16.0[facility] Laboratory - Chemistry and Chemistry - challengeon 34-61-6546Ezwwfnb [Mass/Vol] 3.4 g/dL3.4-5.0Kindred HealthcareALP [Catalytic activity/Vol]103 U/Q29-599QpekrvtseKindred HealthcareALT [Catalytic activity/Vol]24 U/L 14-59Kindred HealthcareAST [Catalytic activity/Vol]25 U/L15-37 Kindred HealthcareBilirubin [Mass/Vol]0.3 mg/dL0.2-1.0[facility]red HealthcareCalcium [Mass/Vol]9.1 mg/dL8.5-10.1FHighland District HospitalChloride [Moles/Vol]108 mmol/FHpzl69-304MxktbaykvKindred HealthcareCholesterol [Mass/Vol]122 mg/dL<=200[facility] Cholesterol in HDL [Mass/Vol]58 mg/qI32-46XqavkhowdKindred Healthcare Comment on above:> or =60 mg/dl - LOW CARDIOVASCULAR RISK<40 mg/dl - HIGH CARDIOVASCULAR RISKCO2 [Moles/Vol]26.2 mmol/L21.0-32.0[facility]red HealthcareCreatinine [Mass/Vol]1.16 mg/dLHigh0.55-1.02Kindred HealthcareGFR/1.73 sq M.predicted MDRD (S/P/Bld) [Vol rate/Area]54 mL/min/{1.73_m2} Low>=60 mL/min/1.73m 2FHighland District HospitalGlucose [Mass/Vol]105 mg/qR33-987RzurvfcisKindred HealthcarePotassium [Moles/Vol]4.2 mmol/L 3.5-5.1FHighland District HospitalProtein [Mass/Vol]7.0 g/dL6.4-8.2 [facility] Hospitalodium [Moles/Vol]142 mmol/R240-179MfkphhrwmKindred HealthcareTriglyceride [Mass/Vol]154 mg/dLHigh<=150Kindred HealthcareTSH Qn0.650 m[IU]/L0.358-3.740Kindred HealthcareUrea nitrogen [Mass/Vol]15.0 mg/dL7.0-18.0Kindred HealthcareUrea nitrogen/Creatinine [Mass ratio]12.9 mg/mgKindred HealthcareLaboratory - Hematology and Cell countson 72-88-9210Rijulqjb granulocytes/100 WBC (Bld)0.2 %0.0-0.5FHighland District Hospital Leukocytes [#/volume] corrected for nucleated erythrocytes in Blood by Automated counon 92-59-3632WJS corrected for nucl RBC Auto (Bld) [#/Vol]Leukocytes [#/volume] corrected for nucleated erythrocytes in Blood by Automated coun 4.0-11.0Kindred HealthcareLymphocytes Auto (Bld) [#/Vol]on 62-08-6127Zgaionzqvtl (Bld) [#/Vol]Lymphocytes [#/volume] in Blood by Automated count1.2-3.8Kindred HealthcareLymphocytes/100 WBC Auto (Bld)on 90-85-7715Lpbzgsdnysk/100 WBC (Bld)Lymphocytes/100 leukocytes in Blood by Automated laxsrXdw80.5-60.0[facility] CenterH Auto (RBC) [Entitic mass]on 23-85-0275XSV (RBC) [Entitic mass]MCH [Entitic mass] by Automated count26.7-34.0Kindred HealthcareMCHC Auto (RBC) [Mass/Vol]on 87-48-7634GNTU (RBC) [Mass/Vol]MCHC [Mass/volume] by Automated count29.9-35.2FHighland District HospitalMCV Auto (RBC) [Entitic vol]on 16-25-2841ICO (RBC) [Entitic vol]MCV [Entitic volume] by Automated count 81.0-99.0[facility]red HealthcareMonocytes Auto (Bld) [#/Vol]on 45-24-6467Kprpzfnch (Bld) [#/Vol]Automated blood monocyte countHigh0.3-0.8 [facility]red HealthcareMonocytes/100 WBC Auto (Bld)on 05-27-2024 Monocytes/100 WBC (Bld)Automated monocyte %1.7-12.0Kindred HealthcareNeutrophils Auto (Bld) [#/Vol]on 55-79-2029Keujgdxnexz (Bld) [#/Vol] Neutrophils [#/volume] in Blood by Automated count1.4-6.5FHighland District HospitalNeutrophils/100 WBC Auto (Bld)on 08-88-2745Dpyqgjavbri/100 WBC (Bld)Automated neutrophil %43.0-75.0Kindred HealthcareNo Panel Informationon 81-14-6528Pllkyuihyke # (Auto)0.2 10 3/uL0.0-0.7FHighland District HospitalImmature Granulocyte # (Auto)0.02 10 3/uL0.00-0.03Kindred HealthcarePlatelet mean volume Auto (Bld) [Entitic vol]on 73-00-7343Sxayrrxo mean volume (Bld) [Entitic vol]Platelet mean volume [Entitic volume] in Blood by Automated count9.5-13.5FHighland District Hospital Platelets Auto (Bld) [#/Vol]on 98-27-3623Qpsmzitdm (Bld) [#/Vol]Platelets [#/volume] in Blood by Automated qvuzy549-238PfldfeenkKindred Healthcare RBC Auto (Bld) [#/Vol]on 34-40-8194RGS (Bld) [#/Vol]Erythrocytes [#/volume] in Blood by Automated countLow4.20-5.40[facility] Hospitalerum or plasma albumin/globulin mass ratioon 37-33-1434Jptoyjs/Globulin [Mass ratio] Serum or plasma albumin/globulin mass ratioKindred Healthcare Serum or plasma anion gap determinationon 67-35-8632Zlimu gap [Moles/Vol]Serum or plasma anion gap determinationCleveland Clinic Mercy Hospitalerum or plasma total cholesterol/high density lipoprotein (HDL) cholesterol mass bernie 30-12-2286Bkmhlpieiyf.total/Cholesterol in HDL [Mass ratio]Serum or plasma total cholesterol/high density lipoprotein (HDL) cholesterol mass ratKindred HealthcareComment on above:3.3 - 4.4 LOW RISK4.4 - 7.1 AVERAGE RISK7.1 - 11.0 MODERATE RISK>11.0 HIGH RISKOffice Visiton 53-26-0708Cgpcwk-up [id number] Nora Gibbs 1940 F Date Provider Department Center 03/19/2024 STEFANIE RUIZ [facility]ARD [facility] Family History Problem Relation Age of Onset No Known Problems Mother No Known Problems Father Family Status - Relation Status Age at Mother Father Level of Service:39909 AL OFFICE/OUTPATIENT ESTABLISHED MOD MDM 30 MIN Reason for Visit and Comments: Coronary Artery Disease [187] Congestive Heart Failure [127] Hypertension [265923]NormalTrinity Health System East CampusHemoglobin [Mass/volume] in Bloodon 14-33-5183Qdcswkcjni (Bld) [Mass/Vol]12.6 g/dL12.0-16.0 [facility]red HealthcareHemoglobin (Bld) [Mass/Vol]Hemoglobin [Mass/volume] in Blood12.0-16.0[facility]red HealthcareEstimated glomerular filtration rate (GFR) non- Americanon 98-79-5671MOW/1.73 sq M.predicted among non-blacks MDRD (S/P/Bld) [Vol rate/Area]48 mL/min/{1.73_m2} Low>=60Kindred HealthcareLaboratory - Chemistry and Chemistry - challengeon 44-67-3093Yiuopwn [Mass/Vol]9.4 mg/dL8.5-10.1FHighland District HospitalChloride [Moles/Vol]109 mmol/PCqyp14-127QbxqfkyxaKindred HealthcareCO2 [Moles/Vol]22.4 mmol/L21.0-32.0[facility] Creatinine [Mass/Vol]1.09 mg/dLHigh0.55-1.02[facility] GFR/1.73 sq M.predicted MDRD (S/P/Bld) [Vol rate/Area]58 mL/min/{1.73_m2}Low>=60 Kindred HealthcareGlucose [Mass/Vol]97 mg/xY15-402MspgfmuxwKindred HealthcarePotassium [Moles/Vol]4.6 mmol/L3.5-5.1FSt. Mary's Medical Centerodium [Moles/Vol]143 mmol/S035-901GenzichbaKindred HealthcareUrea nitrogen [Mass/Vol]23.0 mg/dLHigh7.0-18.0[facility]red HealthcareUrea nitrogen/Creatinine [Mass ratio]21.1 mg/mgCleveland Clinic Mercy Hospitalerum or plasma anion gap determinationon 48-78-6747Dxczy gap [Moles/Vol] 16.2 mmol/LFHighland District Hospital29on 54-38-075227Etrewejd by: VIRI MAZARIEGOS on: 01/23/2024 04:03 PM Modules accepted: OrdersNormalUniversCleveland Clinic36on 01-23-2024 36Spoke with patient and made her aware. She will have repeat BMP within the next few days. Order faxed to [facility]36on 36-31-201701K reviewed the blood pressure readings and the blood test from 01/17/2024. Blood pressure is better. Renal function is improving. Still not at baseline. Please ask her to continue to hold diuretics. She should get BMP in 1 week. [facility] HospitalEstimated glomerular filtration rate (GFR) non- Americanon 64-73-9384BHU/1.73 sq M.predicted among non-blacks MDRD (S/P/Bld) [Vol rate/Area]36 mL/min/{1.73_m2}Low>=60Kindred HealthcareLaboratory - Chemistry and Chemistry - challengeon 01-17-2024 Calcium [Mass/Vol]9.5 mg/dL8.5-10.1FHighland District HospitalChloride [Moles/Vol]108 mmol/PFdpl26-708UjwmowfnbKindred HealthcareCO2 [Moles/Vol] 22.3 mmol/L21.0-32.0[facility]red HealthcareCreatinine [Mass/Vol]1.40 mg/dLHigh0.55-1.02Kindred HealthcareGFR/1.73 sq M.predicted MDRD (S/P/Bld) [Vol rate/Area]43 mL/min/{1.73_m2}Low>=60Kindred HealthcareGlucose [Mass/Vol]133 mg/qICeys49-359IppxkljewKindred Healthcare Potassium [Moles/Vol]4.8 mmol/L3.5-5.1FSt. Mary's Medical Centerodium [Moles/Vol]141 mmol/S753-455FalmosbckKindred HealthcareUrea nitrogen [Mass/Vol]55.0 mg/dLHigh7.0-18.0Kindred HealthcareUrea nitrogen/Creatinine [Mass ratio]39.3 mg/mgCleveland Clinic Mercy Hospitalerum or plasma anion gap determinationon 28-48-7700Sbfmu gap [Moles/Vol]15.5 mmol/L Kindred HealthcareTelephoneon [id number] Clari Gibbsty Marianne 1940 F Date Provider Department [place] 01/17/2024 BALA MORGAN CARD [facility] Family History Problem Relation Age of Onset No Known Problems Mother No Known Problems Father Family Status - Relation Status Age at Mother FatherNormalUniversCleveland Clinic36on 56-86-152252Lljgw with patient and told her I faxed BMP order to [facility]. She will have it drawn on she said.NormalUnMercy Health St. Charles HospitalEstimated glomerular filtration rate (GFR) non- Americanon 01-48-0917BMO/1.73 sq M.predicted among non-blacks MDRD (S/P/Bld) [Vol rate/Area]22 mL/min/{1.73_m2} Low>=60Kindred HealthcareLaboratory - Chemistry and Chemistry - challengeon 20-84-6163Qeheyvn [Mass/Vol]9.2 mg/dL8.5-10.1FHighland District HospitalChloride [Moles/Vol]105 mmol/B43-522LhrfqqyvaKindred HealthcareCO2 [Moles/Vol]22.6 mmol/L21.0-32.0[facility] Creatinine [Mass/Vol]2.10 mg/dLHigh0.55-1.02[facility] GFR/1.73 sq M.predicted MDRD (S/P/Bld) [Vol rate/Area]27 mL/min/{1.73_m2}Low>=60 [facility] HealthcareGlucose [Mass/Vol]126 mg/kWBsjl74-371OlbqjewxyKindred HealthcarePotassium [Moles/Vol]5.2 mmol/LHigh3.5-5.1FSt. Mary's Medical Centerodium [Moles/Vol]140 mmol/A327-137OsxiobvlqKindred HealthcareUrea nitrogen [Mass/Vol]76.0 mg/dLHigh7.0-18.0Kindred HealthcareComment on above:RESULTS CALLED TO ESA MANDEL @BY Gemini Carpenter at 1334Urea nitrogen/Creatinine [Mass ratio]36.2 mg/mgCleveland Clinic Mercy Hospitalerum or plasma anion gap determinationon 29-05-8912Tmlwc gap [Moles/Vol]17.6 mmol/LFHighland District HospitalTelephoneon [id number] Nora Gibbs 1940 F Date Provider Department Center 01/14/2024 SONA LINDER Family History Problem Relation Age of Onset No Known Problems Mother No Known Problems Father Family Status - Relation Status Age at Mother FatherNormalUniversity of North Central Baptist HospitalUS venous duplex LE BIo 71-22-2217KG venous duplex LE [facility] [place] [address] Ultrasound Report Signed Patient: Nora Gibbs MR#: [id number] : 1940 Acct:[id number] Age/Sex: 83 / F ADM Date: 11/30/23 Loc: Room: [address] [place] [address] Type: DIS INOo Attending Dr: Jim Clay [...] Joe Moscoso MD12/03/2023 3:59 PM Dictation Location: [place] [address] Tech: Betty Bibiana Transcribed By: ALEXANDER 12/03/23 1559 Dictated By: Joe Moscoso MD 12/03/23 1558 Signed By: 12/03/23 1559NoCrawley Memorial Hospital Physician WwwopA1G with Estimated Average Gluon 59-40-5742Aygypse [Mass/Vol]137 mg/dLHCA Florida Palms West Hospital Physician GroupComment on above:Result Comment: PERFORMED BY: [facility] [address] [place] [address] PATHOLOGIST FEATHER SAWYER JUDY RASMUSSEN M.D.Performed By: #### LIPID, HS TROP, A1C WTH eA, MG, BMP, CBC ####[place] [id number] [facility] Automated basophil %Ordered By: Jim Clay on 66-49-8304Rhqipsmcd/100 WBC (Bld)0.8 %.Kindred HealthcareComment on above:Performed By: #### LIPID, HS TROP, A1C WTH eA, MG, BMP, CBC ####[place] [id number] USAAutomated basophil countOrdered By: Jim Clay on 18-52-8510Hwagycsiq (Bld) [#/Vol]0.0 10*3/uL0.0-0.2FHighland District HospitalComment on above:Result Comment: PERFORMED BY: [address] [place] [id number] PATHOLOGIST FEATHER SAWYER JUDY RASMUSSEN M.D.Performed By: #### LIPID, HS TROP, A1C WTH eA, MG, BMP, CBC ####[place] [id number] [facility] Automated blood monocyte countOrdered By: Jim Clay on 40-20-4630Zzwfzcsfo (Bld) [#/Vol]0.7 10*3/uL0.0-0.8Kindred HealthcareComment on above:Performed By: #### LIPID, HS TROP, A1C WTH eA, MG, BMP, CBC ####[place] [id number] [place] [address] USAAutomated eosinophil %Ordered By: Jim Clay on 37-03-5281Qajfbdekthl/100 WBC (Bld)2.8 %.Kindred HealthcareComment on above:Performed By: #### LIPID, HS TROP, A1C WTH eA, MG, BMP, CBC ####[address] [address] USAAutomated eosinophil countOrdered By: Jim Clay on 31-65-4916Dbvflddhlxq (Bld) [#/Vol]0.2 10*3/uL0.0-0.45Kindred HealthcareComment on above:Performed By: #### LIPID, HS TROP, A1C WTH eA, MG, BMP, CBC ####[address] [address] USAAutomated monocyte %Ordered By: Jim Clay on 38-80-9307Piwtfilnk/100 WBC (Bld)11.5 %.Kindred HealthcareComment on above:Performed By: #### LIPID, HS TROP, A1C WTH eA, MG, BMP, CBC ####[address] [address] USAAutomated neutrophil %Ordered By: Jim Clay on 19-78-3144Uewkhghugmy/100 WBC (Bld)62.6 %.Kindred HealthcareComment on above:Performed By: #### LIPID, HS TROP, A1C WTH eA, MG, BMP, CBC ####[address] [address] USABasic Metabolic Panelon 94-04-6848Oclwviderb Clr Calc Jvefskmj80.06 NormalThe [facility] Mercy Physician GroupComment on above:Performed By: #### LIPID, HS TROP, A1C WTH eA, MG, BMP, CBC ####[address] [address] USAGFR/1.73 sq M.predicted MDRD (S/P/Bld) [Vol rate/Area]mL/min/{1.73_m2}NormalThe [facility] Health Mercy Physician GroupComment on above: Performed By: #### LIPID, HS TROP, A1C WTH eA, MG, BMP, CBC ####[facility] [address] [place] [address] USACalcium [Mass/volume] in Serum or PlasmaOrdered By: Jim Clay on 88-55-5109Naliexa [Mass/Vol]8.7 mg/dL8.6-10.3FHighland District HospitalComment on above:Performed By: #### LIPID, HS TROP, A1C WTH eA, MG, BMP, CBC ####[facility] [address] [place] [address] USACarbon dioxide, total [Moles/volume] in Serum or PlasmaOrdered By: Jim Clay on 10-54-1869YF7 [Moles/Vol]22.8 mmol/L21.0-31.0Kindred HealthcareComment on above:Performed By: #### LIPID, HS TROP, A1C WTH eA, MG, BMP, CBC ####[facility] [address] [place] [address] USAChloride [Moles/volume] in Serum or PlasmaOrdered By: Jim Clay on 96-59-8586Mbztoumv [Moles/Vol]112 mmol/LHigh 98-107Kindred HealthcareComment on above:Performed By: #### LIPID, HS TROP, A1C WTH eA, MG, BMP, CBC ####[facility] [address] [place] [address] USACholesterol [Mass/volume] in Serum or Plasma Ordered By: Jim Clay on 28-29-7842Rdrizlfoivs [Mass/Vol]109 mg/tJYbe277-679 Kindred HealthcareComment on above:Chol less than 200 mg/dl low riskChol 201-239 mg/dl borderline riskChol 240 mg/dl and greater high riskResult Comment: Chol less than 200 mg/dl low risk Chol 201-239 mg/dl borderline risk Chol 240 mg/dl and greater high riskPerformed By: #### LIPID, HS TROP, A1C WTH eA, MG, BMP, CBC ####[facility] [address] [place] [address] USACholesterol in LDL Calc [Mass/Vol]Ordered By: Jim Clay on 13-62-2418Defrblbowhl in LDL [Mass/Vol]37 mg/dL0-100Kindred HealthcareComment on above:LDL ATP III CLASSIFICATIONLDL less than 100 mg/dL OptimalLDL 100-129 mg/dL Near or above skwkaxdGKC977-006 mg/dL Borderline highLDL 160-189 mg/dL HighLDL greater than 189 mg/dL Very highCholesterol in VLDL Calc [Mass/Vol]Ordered By: Jim Clay on 98-94-1670Woqylhjihgf in VLDL [Mass/Vol]34 mg/dLKindred HealthcareComplete Blood Count Auto Diffon 26-89-4776Gyrx Corpuscular HGB Conc33.4 g/eGUvcyof64.0-35.0The [facility] Physician GroupComment on above:Performed By: #### LIPID, HS TROP, A1C WTH eA, MG, BMP, CBC ####[facility] [address] [place] [address] USANRBC%0.1 /100{WBC}Normal0-0.5The [facility] Mercy Physician GroupComment on above:Performed By: #### LIPID, HS TROP, A1C WTH eA, MG, BMP, CBC ####[facility] [id number] [place] [address] USACreatinine [Mass/volume] in Serum or PlasmaOrdered By: Jim Clay on 11-84-2020Kgmbryuxfm [Mass/Vol]0.84 mg/dL0.60-1.20Kindred HealthcareComment on above: Performed By: #### LIPID, HS TROP, A1C WTH eA, MG, BMP, CBC ####[facility] [id number] [place] [address] USAECH echo transthoracicon [id number] echo transthoracicWADSWOR[facility] [address] [place] [address] Echocardiogram Signed Patient: Nora Gibbs MR#: [id number] : 1940 Acct:[id number] Age/Sex: 83 / F ADM Date: 11/30/23 Loc: Room: [address] [place] [address] Type: ADM INOo Attending Dr: Jim Clay [...] cm TARIQ(I,D): 1.6 cm2 TARIQ(V,D): 2.2 cm2 Transcribed By: SCV Performed At: 12/01/23831 Signed By: Margarito Ballesteros MD 12/01/[address] [place] [address] Physician GroupErythrocyte distribution width [Ratio] by Automated countOrdered By: Jim Clay on [id number] distribution width (RBC) [Ratio]13.4 %11.9-15.3 Kindred HealthcareComment on above:Performed By: #### LIPID, HS TROP, A1C WTH eA, MG, BMP, CBC ####[facility] [address] [place] [address] USAErythrocytes [#/volume] in Blood by Automated count Ordered By: Jim Clay on 78-15-3506HUQ (Bld) [#/Vol]3.81 10*6/uL3.60-5.00 Kindred HealthcareComment on above:Performed By: #### LIPID, HS TROP, A1C WTH eA, MG, BMP, CBC ####[facility] [address] [place] [address] USAGlucose [Mass/volume] in Serum or PlasmaOrdered By: Jim Clay on 60-19-4448Fvalgzc [Mass/Vol]100 mg/eP36-901OlhkpqysrKindred HealthcareComment on above:ADA recommended reference rangeRandom Glucose Reference Range is dependent on time and content of last meal. Glucose of more than 200 mg/dL in a nonstressed, ambulatory subject supports the diagnosisof Diabetes Mellitus.Result Comment: Random Glucose Reference Range is dependent on time and content of last meal. Glucose of more than 200 mg/dL in a nonstressed, ambulatory subject supports the diagnosis of Diabetes Mellitus. ADA recommended reference rangePerformed By: #### LIPID, HS TROP, A1C WTH eA, MG, BMP, CBC ####[facility] [address] [place] [address] USAGlucose mean value [Mass/volume] in Blood Estimated from glycated hemoglobinOrdered By: Jim Clay on 64-56-9195Kgmzwpd glucose Estimated from glycated hemoglobin (Bld) [Mass/Vol]137 mg/dLKindred Healthcare Hematocrit [Volume Fraction] of Blood by Automated countOrdered By: Jim Clay on 76-92-4177Kolxxxzuqd (Bld) [Volume fraction]34.9 %34.0-46.4FHighland District HospitalComment on above:Performed By: #### LIPID, HS TROP, A1C WTH eA, MG, BMP, CBC ####[facility] [place] [address] USAHemoglobin A1c percentageOrdered By: Jim Clay on 74-80-3425TwJ5o (Bld) [Mass fraction]6.4 %High4.3-5.6FHighland District HospitalComment on above:Increased risk for diabetes: 5.7 - 6.4diabetes: >6.4glycemic control for adults with diabetes: <7.0Result Comment: Increased risk for diabetes: 5.7 - 6.4 diabetes: >6.4 glycemic control for adults with diabetes: <7.0Performed By: #### LIPID, HS TROP, A1C WTH eA, MG, BMP, CBC ####[facility] [place] [address] USAHemoglobin [Mass/volume] in BloodOrdered By: Jim Clay on 05-67-3188Wsyowvkown (Bld) [Mass/Vol]11.7 g/dLLow11.8-15.4FHighland District HospitalComment on above:Performed By: #### LIPID, HS TROP, A1C WTH eA, MG, BMP, CBC ####[facility] [place] [address] USALeukocytes [#/volume] corrected for nucleated erythrocytes in Blood by Automated counOrdered By: Jim Clay on 52-76-9539PWI corrected for nucl RBC Auto (Bld) [#/Vol]6.4 10*3/uL3.8-11.6FHighland District HospitalLeukocytes [#/volume] in Blood by Automated countOrdered By: Jim Clay on 24-89-9129VGO (Bld) [#/Vol]6.4 10*3/uL3.8-11.6FHighland District HospitalComment on above:Performed By: #### LIPID, HS TROP, A1C WTH eA, MG, BMP, CBC ####[facility] [place] [address] USALipid Panelon 72-13-8522QMB Cholesterol,Jwttjcewhk11 mg/dLNormal0-100 [facility] Physician GroupComment on above:Result Comment: LDL ATP III CLASSIFICATION LDL less than 100 mg/dL Optimal LDL 100-129 mg/dL Near or above optimal LDL 130-159 mg/dL Borderline high LDL 160-189 mg/dL High LDL greater than 189 mg/dL Very highPerformed By: #### LIPID, HS TROP, A1C WTH eA, MG, BMP, CBC ####[facility] [place] [address] USATriglyceride w/Cpqgfi851 mg/dLHigh0-149[facility] Comment on above:Result Comment: TRIG ATP III CLASSIFICATION TRIG less than 150 mg/dL Normal TRIG 150-199 mg/dL Borderline high TRIG 200-500 mg/dL High TRIG greater than 500 mg/dL Very high Standard traceable to the Center for Disease Conrtrol and Prevention (CDC) test method.Performed By: #### LIPID, HS TROP, A1C WTH eA, MG, BMP, CBC ####[facility] [place] [id number] USAVLDL APVJLAADRKM19 mg/dLNoCrawley Memorial Hospital Physician GroupComment on above: Performed By: #### LIPID, HS TROP, A1C WTH eA, MG, BMP, CBC ####[place] [id number] USALymphocytes [#/volume] in Blood by Automated countOrdered By: Jim Clay on 12-01-2023 Lymphocytes (Bld) [#/Vol]1.4 10*3/uL1.00-4.8[facility] Comment on above:Performed By: #### LIPID, HS TROP, A1C WTH eA, MG, BMP, CBC ####[facility] [address] [place], [place] [id number] [place] Lymphocytes/100 leukocytes in Blood by Automated countOrdered By: Jim Clay on 62-36-4385Pfnborxosvh/100 WBC (Bld)22.3 %.[facility] Comment on above:Performed By: #### LIPID, HS TROP, A1C WTH eA, MG, BMP, CBC ####[address] [address] [facility] [Entitic mass] by Automated countOrdered By: Jim Clay on 06-16-5060YGH (RBC) [Entitic mass]30.5 pg24.7-34.3FHighland District HospitalComment on above: Performed By: #### LIPID, HS TROP, A1C WTH eA, MG, BMP, CBC ####[facility] [address] [place] [address] [facility] Auto (RBC) [Mass/Vol]Ordered By: Jim Clay on 05-70-5420BNDM (RBC) [Mass/Vol]33.4 g/dL 32.0-35.0[facility] CenterV [Entitic volume] by Automated countOrdered By: Jim Clay on 16-34-0779NRP (RBC) [Entitic vol]91.5 oA66-703 Kindred HealthcareComment on above:Performed By: #### LIPID, HS TROP, A1C WTH eA, MG, BMP, CBC ####[place] [address] [place] [address] USAMagnesium [Mass/volume] in Serum or PlasmaOrdered By: Jim Clay on 27-41-3919Isevbotxv [Mass/Vol]1.7 mg/dLLow1.9-2.7FHighland District HospitalComment on above:Performed By: #### LIPID, HS TROP, A1C WTH eA, MG, BMP, CBC ####[place] [id number] USANeutrophils [#/volume] in Blood by Automated count Ordered By: Jim Clay on 03-31-1490Hlvmnckidvh (Bld) [#/Vol]4.0 10*3/uL 1.8-7.7FHighland District HospitalComment on above:Performed By: #### LIPID, HS TROP, A1C WTH eA, MG, BMP, CBC ####[place] [id number] USANo Panel InformationOrdered By: Jim Clay on 33-05-3380Kohzvqdrs GFR (CKD-EPI)> 60.0 mL/MinKindred HealthcarePharmacy Creatinine Clearance (Chem47.06[facility] Nucleated erythrocytes [Presence] in Blood by Automated countOrdered By: Jim Clay on 14-92-8582Kkhknfsor RBC Auto Ql (Bld)0.1 /100{WBC}0-0.5FHighland District HospitalPlatelet mean volume [Entitic volume] in Blood by Automated countOrdered By: Jim Clay on 97-49-4709Trmmouza mean volume (Bld) [Entitic vol]10.0 fL6.3-10.7FHighland District HospitalComment on above: Performed By: #### LIPID, HS TROP, A1C WTH eA, MG, BMP, CBC ####[place] [address] [place] [address] USAPlatelets [#/volume] in Blood by Automated countOrdered By: Jim Clay on 87-79-5712Ajyprywqj (Bld) [#/Vol]203 10*3/jZ175-035IbrybyeobKindred HealthcareComment on above: Performed By: #### LIPID, HS TROP, A1C WTH eA, MG, BMP, CBC ####[facility] [address] [place] [address] USAPotassium [Moles/volume] in Serum or PlasmaOrdered By: Jim Clay on 05-33-7770Tewsvohxq [Moles/Vol]4.3 mmol/L3.5-5.1FHighland District HospitalComment on above: Performed By: #### LIPID, HS TROP, A1C WTH eA, MG, BMP, CBC ####[facility] [address] [place] [address] USASerum or plasma anion gap determinationOrdered By: Jim Clay on 77-40-2691Zoboj gap [Moles/Vol] 11.5 mmol/L6.0-15.0Kindred HealthcareComment on above:Performed By: #### LIPID, HS TROP, A1C WTH eA, MG, BMP, CBC ####[facility] [address] [place] [address] USASerum or plasma high density lipoprotein (HDL) cholesterol measurementOrdered By: Jim Clay on 12-01-2023 Cholesterol in HDL [Mass/Vol]38 mg/iR82-65NuagakqjwKindred Healthcare Comment on above:HDL CHOL ATP-III CLASSIFICATION Cardiovascular RiskHDL > or equal to 60 mg/dL LOWHDL < 40 mg/dL HIGHResult Comment: HDL CHOL ATP-III CLASSIFICATION Cardiovascular Risk HDL > or equal to 60 mg/dL LOW HDL < 40 mg/dL HIGHPerformed By: #### LIPID, HS TROP, A1C WTH eA, MG, BMP, CBC ####[facility] [address] [place] [address] USASerum or plasma total cholesterol/high density lipoprotein (HDL) cholesterol mass rat Ordered By: Jim Clay on 87-01-1272Fynaokharcp.total/Cholesterol in HDL [Mass ratio]2.9 {ratio}<5.0Kindred HealthcareComment on above:Result Comment: PERFORMED BY: [facility] [address] [place] [address] PATHOLOGIST FEATHER SAWYER JUDY RASMUSSEN M.D.Performed By: #### LIPID, HS TROP, A1C WTH eA, MG, BMP, CBC ####[place] [address] [place] [address] USASodium [Moles/volume] in Serum or PlasmaOrdered By: Jim Clay on 25-70-6541Wdmfns [Moles/Vol]142 mmol/U351-877RcytwqwyrKindred HealthcareComment on above: Performed By: #### LIPID, HS TROP, A1C WTH eA, MG, BMP, CBC ####[place] [address] [place] [address] USATriglyceride [Mass/volume] in Serum or PlasmaOrdered By: Jim Clay on 12-01-2023 Triglyceride [Mass/Vol]171 mg/dLHigh0-149[facility] Comment on above:TRIG ATP III CLASSIFICATIONTRIG less than 150 mg/dL NormalTRIG 150-199 mg/dL Borderline highTRIG 200-500 mg/dL High TRIG greater than 500 mg/dL Very highStandard traceable to the Center for Disease Conrtrol and Prevention (CDC) test method.Troponin I High Sensitivityon 85-30-3938Xjwqmpfe I High Sensitivity9.5 pg/mLNormal0.0-15.0[facility] Physician GroupComment on above: Result Comment: PERFORMED BY: [facility] [address] [place] [address] PATHOLOGIST FEATHER SAWYER JUDY RASMUSSEN M.D.Performed By: #### LIPID, HS TROP, A1C WTH eA, MG, BMP, CBC ####[place] [address] [place] [address] [facility] Troponin I.cardiac [Mass/volume] in Serum or Plasma by Detection limit <= 0.01 ng/Ordered By: Jim Clay on 80-80-5602Buodahgb I.cardiac DL <= 0.01 ng/mL [Mass/Vol]9.5 pg/mL0.0-15.0Kindred HealthcareUrea nitrogen [Mass/volume] in Serum or PlasmaOrdered By: Jim Clay on 79-08-5768Vtrl nitrogen [Mass/Vol]21 mg/dL7-Kindred HealthcareComment on above:Performed By: #### LIPID, HS TROP, A1C WTH eA, MG, BMP, CBC ####[facility] [address] [place] [address] USAActivated partial thromboplastin time (aPTT) in platelet poor plasma by coagulation aOrdered By: Nika Fagan on 17-25-5722hWGD Coag (PPP) [Time]29.1 s25.1-36.5FHighland District HospitalComment on above:A hematocrit value greater than 55% may lead to inaccurate results in coagulation testing. Patientshaving hematocrit values >55% require a special collection tube for coagulation studies. Please c ontact the laboratory at [phone] for redraw instructions.Alanine aminotransferase [Enzymatic activity/volume] in Serum or PlasmaOrdered By: Nika Fagan on 88-68-5908OTF [Catalytic activity/Vol]20 U/L7-52Kindred HealthcareComment on above:Performed By: #### CBC, BNP, PTT, DDIMER, HS TROP, PT, CMP #### [facility] [address] [place] [id number] USAAlbumin [Mass/volume] in Serum or Plasma by Bromocresol green (BCG) dye binding methoOrdered By: Nika Fagan on 74-44-3197Sutxyar BCG dye [Mass/Vol]4.1 g/dL3.5-5.7FHighland District HospitalAlkaline phosphatase [Enzymatic activity/volume] in Serum or PlasmaOrdered By: Nika Fagan on 32-05-1125SVU [Catalytic activity/Vol]89 U/S22-506PefbyrcqgKindred HealthcareComment on above:Performed By: #### CBC, BNP, PTT, DDIMER, HS TROP, PT, CMP #### [facility] [address] [place] [address] USAAspartate aminotransferase [Enzymatic activity/volume] in Serum or PlasmaOrdered By: Nika Fagan on 14-48-5735FUA [Catalytic activity/Vol]25 U/O31-35CwvqjknzrKindred HealthcareComment on above: Performed By: #### CBC, BNP, PTT, DDIMER, HS TROP, PT, CMP #### [place] [address] USAAutomated basophil %Ordered By: Nika Fagan on 21-48-7393Bhngqfwea/100 WBC (Bld)0.6 %Normal.[facility] Comment on above:Performed By: #### CBC, BNP, PTT, DDIMER, HS TROP, PT, CMP #### [place] [address] USAAutomated basophil countOrdered By: Nika Fagan on 78-04-9388Gnutfmtcs (Bld) [#/Vol]0.0 10*3/uLNormal0.0-0.2FHighland District HospitalComment on above:Result Comment: PERFORMED BY: [place] [address] PATHOLOGIST FEATHER SAWYER JUDY RASMUSSEN M.D.Performed By: #### CBC, BNP, PTT, DDIMER, HS TROP, PT, CMP #### [place] [address] USAAutomated blood monocyte countOrdered By: Nika Fagan on 75-48-3213Mceoewfme (Bld) [#/Vol]0.6 10*3/uLNormal0.0-0.8Kindred HealthcareComment on above:Performed By: #### CBC, BNP, PTT, DDIMER, HS TROP, PT, CMP #### [place] [address] USAAutomated eosinophil %Ordered By: Nika Fagan on 04-17-2782Dirrffineyi/100 WBC (Bld)2.8 %Normal.[facility] Comment on above:Performed By: #### CBC, BNP, PTT, DDIMER, HS TROP, PT, CMP #### [place] [address] USAAutomated eosinophil countOrdered By: Nika Fagan on 07-22-9686Iwvlxanwkuw (Bld) [#/Vol]0.2 10*3/uLNormal0.0-0.45Kindred HealthcareComment on above:Performed By: #### CBC, BNP, PTT, DDIMER, HS TROP, PT, CMP #### [place] [address] USAAutomated monocyte %Ordered By: Nika Fagan on 36-93-0150Novyqgfhq/100 WBC (Bld)9.8 %Normal.[facility] Comment on above:Performed By: #### CBC, BNP, PTT, DDIMER, HS TROP, PT, CMP #### [place] [address] USAAutomated neutrophil %Ordered By: Nika Fagan on 53-79-1843Ecpxugvuciv/100 WBC (Bld)66.7 %Normal.Kindred HealthcareComment on above:Performed By: #### CBC, BNP, PTT, DDIMER, HS TROP, PT, CMP #### [place] [address] USABNP ser/plasOrdered By: Nika Fagan on 11-30-2023 Natriuretic peptide B (Bld) [Mass/Vol]274.0 pg/mLHigh5-100Kindred HealthcareComment on above:Result Comment: PERFORMED BY: [place] [address] PATHOLOGIST FEATHER SAWYER JUDY RASMUSSEN M.D.Performed By: #### CBC, BNP, PTT, DDIMER, HS TROP, PT, CMP #### [place] [address] USABilirubin.total [Mass/volume] in Serum or PlasmaOrdered By: Nika Fagan on 34-39-7594Ycfhohpmp [Mass/Vol]0.5 mg/dL0.3-1.0Kindred HealthcareComment on above:Performed By: #### CBC, BNP, PTT, DDIMER, HS TROP, PT, CMP #### [place] [address] USACT angio chest PE protocolon 43-47-5158ZL angio chest PE protocolWADSWORTH-RITTMAN [facility] [address] [place] [address] CT Scan Report Signed Patient: Nora Gibbs MR#: [id number] : 1940 Acct:[id number] Age/Sex: 83 / F ADM Date: 11/30/23 Loc: ER Room: Type: [facility] ER Attending Dr: Copies to: Nika [...] M.D.11/30/2023 12:06 PM Dictation Location: [place] [address] Transcribed By: [facility] 11/30/23 1206 Dictated By: Mahendra Chandler DO 11/30/23 1200 Signed By: 11/30/23 1206NoCrawley Memorial Hospital Physician GroupCalcium [Mass/volume] in Serum or PlasmaOrdered By: Nika Fagan on 41-39-3391Xggjkek [Mass/Vol]9.4 mg/dL Normal8.6-10.3FHighland District HospitalComment on above:Performed By: #### CBC, BNP, PTT, DDIMER, HS TROP, PT, CMP #### [facility] [address] [place] [address] USACarbon dioxide, total [Moles/volume] in Serum or Plasma Ordered By: Nika Fagan on 70-45-3824YJ1 [Moles/Vol]20.0 mmol/LLow21.0-31.0 Kindred HealthcareComment on above:Performed By: #### CBC, BNP, PTT, DDIMER, HS TROP, PT, CMP #### [facility] [address] [place] [address] USAChloride [Moles/volume] in Serum or PlasmaOrdered By: Nika Fagan on 32-01-6747Lnsyjjrz [Moles/Vol]111 mmol/NMdsp93-510KlqxljrolKindred HealthcareComment on above:Performed By: #### CBC, BNP, PTT, DDIMER, HS TROP, PT, CMP #### [facility] [address] [place] [address] USAComplete Blood Count Auto Diffon 60-05-8501Ofqa Corpuscular HGB Conc33.0 g/pEBohskv99.0-35.0The [facility] Physician GroupComment on above:Performed By: #### CBC, BNP, PTT, DDIMER, HS TROP, PT, CMP #### [facility] [address] [place] [address] USAMonocytes/100 WBC (Bld)16.37 %Normal0.00-20.00The [facility] Physician GroupComment on above:Performed By: #### CBC, BNP, PTT, DDIMER, HS TROP, PT, CMP #### [facility] [address] [place] [address] USANRBC%0.1 /100{WBC}Normal0-0.5[facility] Comment on above:Performed By: #### CBC, BNP, PTT, DDIMER, HS TROP, PT, CMP #### [place] [address] USAComprehensive Metabolic Panelon 64-38-6072Ajkqlec [Mass/Vol]4.1 g/dLNormal3.5-5.7The [facility] Physician GroupComment on above: Performed By: #### CBC, BNP, PTT, DDIMER, HS TROP, PT, CMP #### [place] [address] USACreatinine Clr Calc Jmsvaoox10.90NormalThe [facility] Physician [facility] HospitalComment on above:Result Comment: PERFORMED BY: [place] [address] PATHOLOGIST FEATHER SAWYER JUDY RASMUSSEN M.D.Performed By: #### CBC, BNP, PTT, DDIMER, HS TROP, PT, CMP #### [place] [address] USAGFR/1.73 sq M.predicted MDRD (S/P/Bld) [Vol rate/Area] mL/min/{1.73_m2}NormalThe [facility] Physician [facility] HospitalComment on above:Performed By: #### CBC, BNP, PTT, DDIMER, HS TROP, PT, CMP #### [place] [address] USACreatinine [Mass/volume] in Serum or PlasmaOrdered By: Nika Fagan on 23-78-5039Lsqhnjypox [Mass/Vol]0.91 mg/dLNormal0.60-1.20 Kindred HealthcareComment on above:Performed By: #### CBC, BNP, PTT, DDIMER, HS TROP, PT, CMP #### [place] [address] USAD-Dimer High Sensitivityon 27-90-4217A-Dimer High Mhayuhlkreu296 ng/mLHigh0-243[facility] Physician [facility] HospitalComment on above: Result Comment: The reference range [...] coagulation studies. Please contact the laboratory at [phone] for redraw instructions. PERFORMED BY: [place] [address] PATHOLOGIST FEATHER SAWYER JUDY RASMUSSEN M.D.Performed By: #### CBC, BNP, PTT, DDIMER, HS TROP, PT, CMP ####[facility] [address] [place] [address] USAECG 12 lead ECGon 87-58-1783HEW 12 lead ECGWADSWORTH-RITTMAN [facility]OSPITAL [address] [place] [address] [place], [place] [address] Electrocardiograph Report Signed Patient: Nora Gibbs MR#: [id number] : 1940 Acct:[id number] Age/Sex: 83 / F ADM Date: 11/30/23 Loc: Room: [address] [place] [address] Type: ADM INOo Attending Dr: Jim Clay [...] Lateral leads Confirmed by Kole Damon DO ([id number]) on 11/30/2023 3:08:44 PM Referred By: Electronically Signed By:Kole Damon DO Transcribed By: MUS Signed By Kole Damon DO 4 [address] Physician GroupErythrocyte distribution width [Ratio] by Automated countOrdered By: Nika Fagan on 23-84-8031Pfofpjrrxli distribution width (RBC) [Ratio]13.4 %Mbbvkm60.9-15.3FHighland District HospitalComment on above:Performed By: #### CBC, BNP, PTT, DDIMER, HS TROP, PT, CMP #### [facility] [address] [place] [address] USAErythrocytes [#/volume] in Blood by Automated countOrdered By: Nika Fagan on 57-42-3901WJP (Bld) [#/Vol]4.17 10*6/uLNormal3.60-5.00 [facility]red HealthcareComment on above:Performed By: #### CBC, BNP, PTT, DDIMER, HS TROP, PT, CMP #### [facility] [address] [place] [address] USAFibrin D-dimer [Presence] in Platelet poor plasma by Latex agglutinationOrdered By: Nika Fagan on 96-30-0789Fwaimi D-dimer LA Ql (PPP)734 ng/mLHigh0-243Kindred HealthcareComment on above:The reference range for D-dimer is <243 ng/mL D-dimer units.D-dimer results must be used in conjunction with a clinicalpretest probability (PTP) assessment model for deep veinthrombosis (DVT) and pulmonary embolism (PE). Results <230ng/mL d- dimer units can be used as a negative predictor inpatients with low or moderate probability for DVT/PE.Results above the exclusion threshold of 230 ng/ml D- dimerunits for DVT/PE may indicate the need for furtherdiagnostic testing.D- Dimer can be increased in hospitalized patients due toco-morbid conditions.A hematocrit value greater than 55% may lead to inaccurate results in coagulation testing. Patients having hematocrit values >55% require a special collection tube for coagulation studies. Please contact the laboratory at [phone] for redraw instructions.Glucose [Mass/volume] in Serum or PlasmaOrdered By: Nika Fagan on 12-44-9891Vmknski [Mass/Vol]121 mg/vGZjlu38-174TmskiaspeKindred HealthcareComment on above:ADA recommended reference rangeRandom Glucose Reference Range is dependent on time and content of last meal. Glucose of more than 200 mg/dL in a nonstressed, ambulatory subject supports the diagnosisof Diabetes Mellitus.Result Comment: Random Glucose Reference Range is dependent on time and content of last meal. Glucose of more than 200 mg/dL in a nonstressed, ambulatory subject supports the diagnosis of Diabetes Mellitus. ADA recommended reference rangePerformed By: #### CBC, BNP, PTT, DDIMER, HS TROP, PT, CMP #### [facility] [address] [place] [address] USAHematocrit [Volume Fraction] of Blood by Automated count Ordered By: Nika Fagan on 97-93-2997Mptegjdetd (Bld) [Volume fraction]37.9 %Isussd21.0-46.4FHighland District HospitalComment on above:Performed By: #### CBC, BNP, PTT, DDIMER, HS TROP, PT, CMP #### [facility] [address] [place] [address] USAHemoglobin [Mass/volume] in BloodOrdered By: Nika Fagan on 55-24-9746Fdyuvglyvv (Bld) [Mass/Vol]12.5 g/oVAwigxx13.8-15.4FHighland District HospitalComment on above:Performed By: #### CBC, BNP, PTT, DDIMER, HS TROP, PT, CMP #### [facility] [address] [place] [address] USAINR in Platelet poor plasma by Coagulation assayOrdered By: Nika Fagan on 85-37-9023DTI Coag (PPP) [Relative time]1.0 {INR} Kindred HealthcareComment on above:INR Therapeutic Range A) Pre- and Peroperative OAT started two weeks before surgery. NOT HIP SURGERY: 1.5 - 2.5 HIP SURGERY: 2 - 3B) Primary and secondary prevention of venous THROMBOSIS: 2 - 3C) Active venous thrombosis, pulmonary embolismand prevention of recurrent venous thrombosis: 2 - 3D) Prevention of arterial thromboembolismincluding patients with mechanical heart valves: 3 - 4.5Result Comment: INR Therapeutic Range A) Pre- and [...] patients with mechanical heart valves: 3 - 4.5Performed By: #### CBC, BNP, PTT, DDIMER, HS TROP, PT, CMP #### [facility] [address] [place] [address] USALeukocytes [#/volume] corrected for nucleated erythrocytes in Blood by Automated counOrdered By: Nika Fagan on 42-95-2155EPM corrected for nucl RBC Auto (Bld) [#/Vol]6.1 10*3/uL3.8-11.6FHighland District HospitalLeukocytes [#/volume] in Blood by Automated countOrdered By: Nika Fagan on 20-49-8416XCI (Bld) [#/Vol]6.1 10*3/uLNormal3.8-11.6FHighland District HospitalComment on above:Performed By: #### CBC, BNP, PTT, DDIMER, HS TROP, PT, CMP #### [place] [id number] USALymphocytes [#/volume] in Blood by Automated countOrdered By: Nika Fagan on 32-08-0219Eqeenajpabo (Bld) [#/Vol]1.2 10*3/uLNormal 1.00-4.8Kindred HealthcareComment on above:Performed By: #### CBC, BNP, PTT, DDIMER, HS TROP, PT, CMP #### [facility] [address] [place] [id number] USALymphocytes/100 leukocytes in Blood by Automated count Ordered By: Nika Fagan on 07-00-6685Tvafnshkvwe/100 WBC (Bld)20.1 %Normal. Kindred HealthcareComment on above:Performed By: #### CBC, BNP, PTT, DDIMER, HS TROP, PT, CMP #### [facility] [address] [Entitic mass] by Automated countOrdered By: Nika Fagan on 21-42-7979RQX (RBC) [Entitic mass]30.0 mfIlykpx26.7-34.3FHighland District HospitalComment on above:Performed By: #### CBC, BNP, PTT, DDIMER, HS TROP, PT, CMP #### [facility] [address] [place], [place] [address]HC Auto (RBC) [Mass/Vol]Ordered By: Nika Fagan on 87-05-9088NEFC (RBC) [Mass/Vol]33.0 g/dL32.0-35.0Kindred HealthcareMCV [Entitic volume] by Automated countOrdered By: Nika Fagan on 01-94-3835RFZ (RBC) [Entitic vol]90.9 qPHlzhit04-394MhyzzbfcqKindred HealthcareComment on above:Performed By: #### CBC, BNP, PTT, DDIMER, HS TROP, PT, CMP #### [facility] [address] [place] [address] USAMonocyte distribution width [Entitic volume] in Blood by AutomatedOrdered By: Nika Fagan on [id number] distribution width Auto (Bld) [Entitic vol]16.37 %0.00-20.00[facility] Neutrophils [#/volume] in Blood by Automated countOrdered By: Nika Fagan on 04-78-0617Ofiorstzshn (Bld) [#/Vol]4.1 10*3/uLNormal1.8-7.7FHighland District HospitalComment on above:Performed By: #### CBC, BNP, PTT, DDIMER, HS TROP, PT, CMP #### [facility] [address] [place] [address] USANo Panel InformationOrdered By: Nika Fagan on 92-34-3007Akhzxewue GFR (CKD-EPI)> 60.0 mL/MinKindred Healthcare Pharmacy Creatinine Clearance (Chem43.90[facility] Nucleated erythrocytes [Presence] in Blood by Automated countOrdered By: Nika Fagan on 87-93-9786Cqzomupyr RBC Auto Ql (Bld)0.1 /100{WBC}0-0.5 Kindred HealthcarePartial Thromboplastin Timeon 35-67-6067hLEM Coag (Bld) [Time]29.1 lJdchdg42.1-36.5The [facility] Mercy Physician GroupComment on above:Result Comment: A hematocrit value greater than 55% may lead to inaccurate results in coagulation testing. Patients having hematocrit values >55% require a special collection tube for coagulation studies. Please contact the laboratory at [phone] for redraw instructions.Performed By: #### CBC, BNP, PTT, DDIMER, HS TROP, PT, CMP #### [facility] [address] [place] [address] USAPlatelet mean volume [Entitic volume] in Blood by Automated countOrdered By: Nika Fagan on 41-46-7124Uchebugo mean volume (Bld) [Entitic vol]9.3 fLNormal6.3-10.7FHighland District HospitalComment on above:Performed By: #### CBC, BNP, PTT, DDIMER, HS TROP, PT, CMP #### [facility] [address] [place], [place] [address] USAPlatelets [#/volume] in Blood by Automated countOrdered By: Nika Fagan on 47-28-5255Mzjaezizr (Bld) [#/Vol]195 10*3/pNTmhosj332-821 Kindred HealthcareComment on above:Performed By: #### CBC, BNP, PTT, DDIMER, HS TROP, PT, CMP #### [facility] [address] [place] [address] USAPotassium [Moles/volume] in Serum or PlasmaOrdered By: Nika Fagan on 71-25-9422Svorrkgip [Moles/Vol]4.1 mmol/LNormal3.5-5.1 Kindred HealthcareComment on above:Performed By: #### CBC, BNP, PTT, DDIMER, HS TROP, PT, CMP #### [facility] [address] [place] [address] USAProtein [Mass/volume] in Serum or PlasmaOrdered By: Nika Fagan on 47-07-0867Hwlqmqd [Mass/Vol]6.9 g/dL6.4-8.9Kindred HealthcareComment on above:Performed By: #### CBC, BNP, PTT, DDIMER, HS TROP, PT, CMP #### [facility] [address] [place] [address] USAProthrombin time (PT)Ordered By: Nika Fagan on 65-44-1141ZU Coag (PPP) [Time]11.6 s9.0-12.9[facility] Comment on above:A hematocrit value greater than 55% may lead to inaccurate results in coagulation testing. Patientshaving hematocrit values >55% require a special collection tube for coagulation studies. Please contact the laboratory at [phone] for redraw instructions.Result Comment: A hematocrit value greater than 55% may lead to inaccurate results in coagulation testing. Patients having hematocrit values >55% require a special collection tube for coagulation studies. Please contact the laboratory at [phone] for redraw instructions.Performed By: #### CBC, BNP, PTT, DDIMER, HS TROP, PT, CMP #### [facility] [address] [place] [address] USASerum globulin measurement by calculation (mass/volume) Ordered By: Nika Fagan on 77-56-9979Ifvdovob (S) [Mass/Vol]2.8 g/dL Kindred HealthcareComment on above:Performed By: #### CBC, BNP, PTT, DDIMER, HS TROP, PT, CMP #### [facility] [address] [place] [address] USASerum or plasma albumin/globulin mass ratioOrdered By: Nika Fagan on 61-47-8294Ccjajpu/Globulin [Mass ratio]1.5 {ratio}Kindred HealthcareComment on above:Performed By: #### CBC, BNP, PTT, DDIMER, HS TROP, PT, CMP #### [facility] [address] [place] [address] USASerum or plasma anion gap determinationOrdered By: Nika Fagan on 79-03-1237Aodtw gap [Moles/Vol]14.1 mmol/LNormal6.0-15.0 Kindred HealthcareComment on above:Performed By: #### CBC, BNP, PTT, DDIMER, HS TROP, PT, CMP #### [facility] [address] [place] [address] USASodium [Moles/volume] in Serum or PlasmaOrdered By: Nika Fagan on 02-31-8462Qhlqmv [Moles/Vol]141 mmol/YFjsoxj571-803SvicturmaKindred HealthcareComment on above:Performed By: #### CBC, BNP, PTT, DDIMER, HS TROP, PT, CMP #### [facility] [address] [place], [place] [address] USATroponin I High Sensitivityon 77-63-6329Vcwvtxlh I High Orvryawswrz61.3 pg/mLHigh0.0-15.0The [facility]cy Physician GroupComment on above: Result Comment: PERFORMED BY: [place] [id number] PATHOLOGIST FEATHER SAWYER JUDY RASMUSSEN M.D.Performed By: #### HS TROP ####[address] [address] USATroponin I High Sensitivity8.5 pg/mL Normal0.0-15.0The [facility] Mercy Physician GroupComment on above:Result Comment: PERFORMED BY: [facility] [address] [place] [address] PATHOLOGIST FEATHER SAWYER JUDY RASMUSSEN M.D.Performed By: #### HS TROP ####[address] [address] USATroponin I High Sensitivity6.9 pg/mL Normal0.0-15.0The [facility] Mercy Physician GroupComment on above:Result Comment: PERFORMED BY: [facility] [address] [place] [address] PATHOLOGIST FEATHER SAWYER JUDY RASMUSSEN M.D.Performed By: #### CBC, BNP, PTT, DDIMER, HS TROP, PT, CMP #### [facility] [address] [place] [address] USATroponin I.cardiac [Mass/volume] in Serum or Plasma by Detection limit <= 0.01 ng/Ordered By: Nika Fagan on 57-23-7673Gwgmkfhb I.cardiac DL <= 0.01 ng/mL [Mass/Vol]8.5 pg/mL0.0-15.0Kindred HealthcareUrea nitrogen [Mass/volume] in Serum or PlasmaOrdered By: Nika Fagan on 36-43-4058[place]jai nitrogen [Mass/Vol]24 mg/dLNormal-Kindred HealthcareComment on above:Performed By: #### CBC, BNP, PTT, DDIMER, HS TROP, PT, CMP #### [address] [address] USAXR chest 2V*on 34-15-6151FO chest 2V*[facility] [address] [place] [address] [place] [address] XRay Report Signed Patient: Nora Gibbs MR#: [id number] : 1940 Acct:[id number] Age/Sex: 83 / F ADM Date: 11/30/23 Loc: ER Room: Type: [facility] ER Attending Dr: Copies to: Nika [...] Mathew Morton M.D.11/30/2023 11:41 AM Dictation Location: [place] [address] Transcribed By: ALEXANDER 11/30/23 1141 Dictated By: Mathew Morton II, MD 11/30/23 1139 Signed By: 11/30/23 1141[facility] Physician GroupBasophils Auto (Bld) [#/Vol]on 34-88-8014Zlsrpyqqm (Bld) [#/Vol]0.1 10 3/uL0.0-0.1FHighland District HospitalBasophils/100 WBC Auto (Bld)on 93-44-0726Dsidiainm/100 WBC (Bld)0.6 % 0.2-2.0[facility]red HealthcareEosinophils/100 WBC Auto (Bld)on 47-41-4431Qlfatobphlj/100 WBC (Bld)2.4 %0.9-7.0[facility] Erythrocyte distribution width Auto (RBC) [Ratio]on 24-11-7390Mmgjqclctdr distribution width (RBC) [Ratio]13.2 %11.0-15.0[facility] Estimated glomerular filtration rate (GFR) non- Americanon 11-20-2023 GFR/1.73 sq M.predicted among non-blacks MDRD (S/P/Bld) [Vol rate/Area]46 mL/min/{1.73_m2}Low>=60Kindred HealthcareHematocrit Auto (Bld) [Volume fraction]on 08-65-0267Jqamtofjvc (Bld) [Volume fraction]41.6 %36.0-48.0 [facility]red HealthcareHemoglobin [Mass/volume] in Bloodon 11-20-2023 Hemoglobin (Bld) [Mass/Vol]13.2 g/dL12.0-16.0[facility] Laboratory - Chemistry and Chemistry - challengeon 68-04-8915Epiwrao [Mass/Vol] 9.4 mg/dL8.5-10.1FHighland District HospitalChloride [Moles/Vol]106 mmol/L 98-107Kindred HealthcareCO2 [Moles/Vol]26.3 mmol/L21.0-32.0 [facility] HealthcareCreatinine [Mass/Vol]1.12 mg/dLHigh0.55-1.02 [facility] HealthcareGFR/1.73 sq M.predicted MDRD (S/P/Bld) [Vol rate/Area]56 mL/min/{1.73_m2}Low>=60Kindred HealthcareGlucose [Mass/Vol]108 mg/fFVeed71-095InqcfnfkvKindred HealthcareNatriuretic peptide B (Bld) [Mass/Vol]491.0 pg/mL<=1800.0[facility] Potassium [Moles/Vol]4.2 mmol/L3.5-5.1FSt. Mary's Medical Centerodium [Moles/Vol]141 mmol/F310-959SppwnmlktKindred HealthcareTSH Qn0.205 m[IU]/L Low0.358-3.740Kindred HealthcareUrea nitrogen [Mass/Vol]20.0 mg/dLHigh7.0-18.0Kindred HealthcareUrea nitrogen/Creatinine [Mass ratio]17.9 mg/mgKindred HealthcareLaboratory - Hematology and Cell countson 43-34-9434Nxbmniew granulocytes/100 WBC (Bld)0.1 %0.0-0.5FHighland District HospitalLeukocytes [#/volume] corrected for nucleated erythrocytes in Blood by Automated counon 63-19-8147IJF corrected for nucl RBC Auto (Bld) [#/Vol]8.0 10 3/uL4.0-11.0[facility] Lymphocytes Auto (Bld) [#/Vol]on 46-14-6858Kedqolvbgcy (Bld) [#/Vol]1.8 10 3/uL 1.2-3.8Kindred HealthcareLymphocytes/100 WBC Auto (Bld)on 23-62-2570Wfcnplyrwfc/100 WBC (Bld)22.3 %20.5-60.0St. Mary's Medical CenterH Auto (RBC) [Entitic mass]on 52-38-4886VSL (RBC) [Entitic mass]29.3 pg 26.7-34.0St. Mary's Medical CenterHC Auto (RBC) [Mass/Vol]on 03-33-4905MOZH (RBC) [Mass/Vol]31.7 g/dL29.9-35.2FHighland District HospitalMCV Auto (RBC) [Entitic vol]on 62-89-4846SED (RBC) [Entitic vol]92.4 fL 81.0-99.0Kindred HealthcareMonocytes Auto (Bld) [#/Vol]on 71-21-7868Yelqsemvw (Bld) [#/Vol]0.9 10 3/uLHigh0.3-0.8Kindred HealthcareMonocytes/100 WBC Auto (Bld)on 42-46-5679Oydbtlglp/100 WBC (Bld) 11.2 %1.7-12.0Kindred HealthcareNeutrophils Auto (Bld) [#/Vol]on 56-07-3609Lsgozpdsrqm (Bld) [#/Vol]5.1 10 3/uL1.4-6.5FHighland District HospitalNeutrophils/100 WBC Auto (Bld)on 19-02-5632Qcvoacngihu/100 WBC (Bld)63.4 % 43.0-75.0Kindred HealthcareNo Panel Informationon 11-20-2023 Eosinophils # (Auto)0.2 10 3/uL0.0-0.7FHighland District HospitalImmature Granulocyte # (Auto)0.01 10 3/uL0.00-0.03[facility] Platelet mean volume Auto (Bld) [Entitic vol]on 74-88-7208Ixzxowfl mean volume (Bld) [Entitic vol]11.3 fL9.5-13.5FHighland District HospitalPlatelets Auto (Bld) [#/Vol]on 38-69-5966Fenvukcog (Bld) [#/Vol]255 10 3/zM628-966 Kindred HealthcareRBC Auto (Bld) [#/Vol]on 26-00-8715BGC (Bld) [#/Vol]4.50 10 6/uL4.20-5.40[facility] Hospitalerum or plasma anion gap determinationon 55-94-0393Gnlrg gap [Moles/Vol]12.9 mmol/LFHighland District HospitalAerobic Cultureon 68-72-1780Rutsubh CultureComment Tissue C S R breast Light Normal Skin Aries 2 Days Comment Tissue C S R breast ORGANISM: Prevotella bergensis (O:PREBER) Comments Sent to [facility] for Testing Quantity of Growth Light Growth Antimicrobial susceptibility testing could not be completed due to poor organism growth using the CLSI approved test method. Please see scanned report located in the Laboratory/Scanned Reports section of the EMR. Comment Tissue C S R breast Gram Stain Result No Bacteria Seen PERFORMED BY: [address] [address] PATHOLOGIST FEATHER SAWYER JUDY RASMUSSEN M.D.NormalThe Atrium Health Mercy Physician GroupComment on above:Performed By: #### AERC ####[facility] [address] [place] [address] USABasic Metabolic Panelon 38-21-9740Ajfuuibkel Clr Calc Mmjtqevy42.56 NormalThe Atrium Health Mercy Physician GroupComment on above:Result Comment: PERFORMED BY: [address] [address] PATHOLOGIST FEATHER SAWYER JUDY RASMUSSEN M.D.Performed By: #### BMP #### [facility] [address] [place] [address] USAGFR/1.73 sq M.predicted MDRD (S/P/Bld) [Vol rate/Area] mL/min/{1.73_m2}NormalThe Atrium Health Mercy Physician GroupComment on above:Performed By: #### BMP #### [facility] [address] [place] [address] USACalcium [Mass/volume] in Serum or PlasmaOrdered By: Shine Lea on 70-98-2865Jcntelx [Mass/Vol]9.3 mg/dLNormal8.6-10.3FHighland District HospitalComment on above:Performed By: #### BMP #### [facility] [address] [place] [address] USACarbon dioxide, total [Moles/volume] in Serum or Plasma Ordered By: Shine Lea on 60-22-3718VI1 [Moles/Vol]22.9 mmol/PGiudsp03.0-31.0 Kindred HealthcareComment on above:Performed By: #### BMP #### [facility] [address] [place] [address] USAChloride [Moles/volume] in Serum or PlasmaOrdered By: Shine Lea on 55-89-4323Wosnxrpy [Moles/Vol]109 mmol/PBqvm07-100FlxvngxzoKindred HealthcareComment on above:Performed By: #### BMP #### [facility] [address] [place] [address] USACreatinine [Mass/volume] in Serum or PlasmaOrdered By: Shine Lea on 50-10-4255Asrmrzbauc [Mass/Vol]0.89 mg/dLNormal0.60-1.20Kindred HealthcareComment on above:Performed By: #### BMP #### [facility] [address] [place] [address] USAGlucose [Mass/volume] in Serum or PlasmaOrdered By: Shine Lea on 87-30-9791Ukwkskl [Mass/Vol]113 mg/mTVjox88-650JbwfyytvnKindred HealthcareComment on above:ADA recommended reference rangeRandom Glucose Reference Range is dependent on time and content of last meal. Glucose of more than 200 mg/dL in a nonstressed, ambulatory subject supports the diagnosisof Diabetes Mellitus.Result Comment: Random Glucose Reference Range is dependent on time and content of last meal. Glucose of more than 200 mg/dL in a nonstressed, ambulatory subject supports the diagnosis of Diabetes Mellitus. ADA recommended reference rangePerformed By: #### BMP #### [facility] [address] [place], [place] [address] USALon 05-28-2023L Specimen: [id number] Received: 05/28/23 Status: HAMZAH Dunbar Num: [id number] Spec Type: Surgical Subm Dr: Luis Angel Saucedo MD Tissues: A Debridement-Skin/Other Than Skin (POD RT BRST) Procedures: Jay CHAUDHRY/Savanna L3 Age/ Patient Sex Location Account Attending Physician Nora Gibbs 83/F [place] [id number] Luis Angel Saucedo MD SPEC NUM: [id number] RECD: 05/28/23 STATUS: HAMZAH DUNBAR NUM: [id number] NEDA: 05/28/[address] [facility] DR: Luis Angel Saucedo MD ENTERED: 05/28/23 [facility] DR: SPEC TYPE: Surgical DEPT: S ENTERED BY: [id number] RECV BY: [id number] ORDERED: ISIDORO Gross/Micro L3 ORDERED: Jay CHAUDHRY/Micro [...] The microscopic examination confirms the diagnosis. Specimen: [id number] Received: 05/28/23 Status: HAMZAH Jenn Num: [id number] Spec Type: Surgical Subm Dr: Luis Angel Saucedo MD Tissues: A Debridement-Skin/Other Than Skin (POD RT BRST) Procedures: Jay CHAUDHRY/Savanna L3 Patient: MeaganarnaldoNora Marianne [id number] (Continued) Specimen: [id number] Received: 05/28/23 (Continued) Signed (signature on file) Zacarias Hunt MD 05/29/23 1548 Specimen: [id number] Received: 05/28/23 Status: HAMZAH Dunbar Num: [id number] Spec Type: Surgical Subm Dr: Luis Angel Saucedo MD Tissues: A Debridement-Skin/Other Than Skin (POD RT BRST) Procedures: Jay CHAUDHRY/Savanna L3 Patient: Nora Gibbs [id number] (Continued) Specimen: [id number] Received: 05/28/23 (Continued) CPT Codes 16613 Specimen: [id number] Received: 05/28/23 Status: HAMZAH Jenn Num: [id number] Spec Type: Surgical Subm Dr: Luis Angel Saucedo MD Tissues: A Debridement-Skin/Other Than Skin (POD RT BRST) Procedures: Jay CHAUDHRY/Savanna L3 Patient: Nora Gibbs [id number] (Continued) Signed (signature on file) Zacarias Hunt MD 05/29/[address] [place] [address] Physician GroupNo Panel InformationOrdered By: Shine Leonora on 69-17-8069Fymtfgwyp GFR (CKD-EPI)> 60.0 mL/MinKindred HealthcarePharmacy Creatinine Clearance (Chem44.56Kindred HealthcarePotassium [Moles/volume] in Serum or PlasmaOrdered By: Shine [place]ora on 41-40-9250Kteknnvfb [Moles/Vol]4.1 mmol/LNormal3.5-5.1FHighland District HospitalComment on above:Performed By: #### BMP #### [facility] [address] [place] [address] USASerum or plasma anion gap determinationOrdered By: Shine Lea on 60-35-1555Ddugl gap [Moles/Vol]12.2 mmol/LNormal6.0-15.0Kindred HealthcareComment on above:Performed By: #### BMP #### [facility] [address] [place] [address] USASodium [Moles/volume] in Serum or PlasmaOrdered By: Shien Lea on 64-21-3384Dptdhx [Moles/Vol]140 mmol/OQjgpzx498-218LcjpwvtubKindred HealthcareComment on above:Performed By: #### BMP #### [facility] [address] [place] [address] USAUrea nitrogen [Mass/volume] in Serum or PlasmaOrdered By: Shine Lea on 87-80-0012Pkne nitrogen [Mass/Vol]25 mg/dLNormal7-25Kindred HealthcareComment on above:Performed By: #### BMP #### [facility] [address] [place] [address] USAAutomated basophil %Ordered By: Luis Angel Saucedo on 63-46-5008Bbdxmdovb/100 WBC (Bld)0.7 %Normal.[facility] Comment on above:Performed By: #### CBC, BMP ####[facility] [address] [place] [address] USAAutomated basophil countOrdered By: Luis Angel Saucedo on 74-89-4192Xiouoxgww (Bld) [#/Vol]0.1 10*3/uLNormal0.0-0.2 Kindred HealthcareComment on above:Result Comment: PERFORMED BY: [facility] [address] [place] [address] PATHOLOGIST FEATHER SAWYER JUDY RASMUSSEN M.D.Performed By: #### CBC, BMP ####[place] [address] USAAutomated blood monocyte countOrdered By: Luis Angel Saucedo on 38-40-9670Cyradjqox (Bld) [#/Vol]1.0 10*3/uLHigh0.0-0.8 Kindred HealthcareComment on above:Performed By: #### CBC, BMP ####[place] [address] [place] Automated eosinophil %Ordered By: Luis Angel Saucedo on 91-59-1217Pbeminnqekg/100 WBC (Bld)1.6 %Normal.Kindred HealthcareComment on above:Performed By: #### CBC, BMP ####[place] [address] USAAutomated eosinophil countOrdered By: Luis Angel Saucedo on 05-17-2023 Eosinophils (Bld) [#/Vol]0.2 10*3/uLNormal0.0-0.45Kindred HealthcareComment on above:Performed By: #### CBC, BMP ####[place] [address] USAAutomated monocyte %Ordered By: Luis Angel Saucedo on 84-99-7097Zxcxeavii/100 WBC (Bld)10.3 %Normal.Kindred HealthcareComment on above:Performed By: #### CBC, BMP ####[place] [address] [place] Automated neutrophil %Ordered By: Luis Angel Saucedo on 25-91-6138Rgmrydbwgzz/100 WBC (Bld)72.8 %Normal.Kindred HealthcareComment on above:Performed By: #### CBC, BMP ####[address] [place] [address] USABasic Metabolic Panelon 13-88-8227Slqjs gap [Moles/Vol]Not performed Normal6.0-15.0[facility] Physician [facility] HospitalComment on above:Performed By: #### CBC, BMP ####[address] [address] USAGFR/1.73 sq M.predicted MDRD (S/P/Bld) [Vol rate/Area]55.878 mL/min/{1.73_m2} NormalThe At[facility] Health Mercy Physician GroupComment on above:Performed By: #### CBC, BMP ####[address] [address] USA PotassiumNormal3.5-5.1[facility] Physician [facility] HospitalComment on above:Result Comment: Specimen hemolyzed, callback initiated if neededPerformed By: #### CBC, BMP ####[address] [address] [place] Calcium [Mass/volume] in Serum or PlasmaOrdered By: Luis Angel Saucedo on 05-17-2023 Calcium [Mass/Vol]9.8 mg/dLNormal8.6-10.3FHighland District Hospital Comment on above:Result Comment: PERFORMED BY: [facility] [address] [place] [address] PATHOLOGIST FEATHER SAWYER JUDY RASMUSSEN M.D.Performed By: #### CBC, BMP ####[address] [address] USACarbon dioxide, total [Moles/volume] in Serum or PlasmaOrdered By: Luis Angel Saucedo on 56-83-6317JF3 [Moles/Vol]25.5 mmol/PJmbrtt76.0-31.0Kindred HealthcareComment on above:Performed By: #### CBC, BMP ####[address] [address] USAChloride [Moles/volume] in Serum or PlasmaOrdered By: Luis Angel Saucedo on 81-70-1718Qplnbbfk [Moles/Vol]108 mmol/EYolz84-624LvtvtjqsvKindred HealthcareComment on above:Performed By: #### CBC, BMP ####[place] [address] [place] [address] USAComplete Blood Count Auto Diff on 35-88-4403Qugx Corpuscular HGB Conc33.3 g/rKYjtpzb97.0-35.0The [facility] Physician GroupComment on above:Performed By: #### CBC, BMP ####[place] [address] USANRBC%0.1 /100{WBC} Normal0-0.5[facility] Physician [facility] HospitalComment on above:Performed By: #### CBC, BMP ####[place] [address] [place] [address] [place] Creatinine [Mass/volume] in Serum or PlasmaOrdered By: Luis Angel Saucedo on 67-22-1613Ubelwaxker [Mass/Vol]0.99 mg/dLNormal0.60-1.20Kindred HealthcareComment on above:Performed By: #### CBC, BMP ####[place] [address] USAECG 12 lead ECGon 58-58-1051DTA 12 lead ECGWADSWORTH-[facility] [address] [place] [address] [place] [address] Electrocardiograph Report Signed Patient: Nora Gibbs MR#: [id number] : 1940 Acct:[id number] Age/Sex: 83 / F ADM Date: 05/17/23 [...] No significant change was found Confirmed by ARAPN ELLSWORTH [facility]ACEHEALTHSTEFANIE ([id number]) on 05/17/2023 3:19:51 PM Referred By: LEWIS Electronically Signed By:STEFANIE ANTONY MD [facility] Transcribed By: ANI Signed By Stefanie Antony MD, [facility] 05/17/[address] [place] [address] Physician GroupErythrocyte distribution width [Ratio] by Automated countOrdered By: Luis Angel Saucedo on 88-76-9350Cequitawass distribution width (RBC) [Ratio]14.3 %Brqpry06.9-15.3FHighland District HospitalComment on above:Performed By: #### CBC, BMP ####[place] [address] [place] [address] USAErythrocytes [#/volume] in Blood by Automated countOrdered By: Luis Angel Saucedo on 48-17-7623QWX (Bld) [#/Vol] 4.16 10*6/uLNormal3.60-5.00Kindred HealthcareComment on above: Performed By: #### CBC, BMP ####[place] [address] [place] [address] USAGlucose [Mass/volume] in Serum or PlasmaOrdered By: Luis Angel Saucedo on 07-28-2185Kwwgldn [Mass/Vol]101 mg/cJJebw89-781XobmyimuzKindred HealthcareComment on above:ADA recommended reference rangeRandom Glucose Reference Range is dependent on time and content of last meal. Glucose of more than 200 mg/dL in a nonstressed, ambulatory subject supports the diagnosisof Diabetes Mellitus.Result Comment: Random Glucose Reference Range is dependent on time and content of last meal. Glucose of more than 200 mg/dL in a nonstressed, ambulatory subject supports the diagnosis of Diabetes Mellitus. ADA recommended reference rangePerformed By: #### CBC, BMP ####[place] [address] [place] [address] USAHematocrit [Volume Fraction] of Blood by Automated countOrdered By: Luis Angel Saucedo on 05-17-2023 Hematocrit (Bld) [Volume fraction]36.6 %Ojrkjg05.0-46.4FHighland District HospitalComment on above:Performed By: #### CBC, BMP ####[place] [address] USAHemoglobin [Mass/volume] in BloodOrdered By: Luis Angel Saucedo on 79-55-6725Reuljajiyy (Bld) [Mass/Vol]12.2 g/zRCsiqmi87.8-15.4FHighland District HospitalComment on above:Performed By: #### CBC, BMP ####[place] [address] USALeukocytes [#/volume] corrected for nucleated erythrocytes in Blood by Automated counOrdered By: Luis Angel Saucedo on 05-17-2023 WBC corrected for nucl RBC Auto (Bld) [#/Vol]10.1 10*3/uL3.8-11.6FHighland District HospitalLeukocytes [#/volume] in Blood by Automated countOrdered By: Luis Angel Saucedo on 01-21-1344EJN (Bld) [#/Vol]10.1 10*3/uLNormal3.8-11.6 [facility]red HealthcareComment on above:Performed By: #### CBC, BMP ####[place] [address] [place] Lymphocytes [#/volume] in Blood by Automated countOrdered By: Luis Angel Saucedo on 08-97-5930Shixbbmdbpp (Bld) [#/Vol]1.5 10*3/uLNormal1.00-4.8Kindred HealthcareComment on above:Performed By: #### CBC, BMP ####[place] [address] USALymphocytes/100 leukocytes in Blood by Automated countOrdered By: Luis Angel Saucedo on 05-17-2023 Lymphocytes/100 WBC (Bld)14.6 %Normal.Kindred HealthcareComment on above:Performed By: #### CBC, BMP ####[address] [place] [address] [facility] [Entitic mass] by Automated countOrdered By: Luis Angel Saucedo on 38-29-8868FTY (RBC) [Entitic mass]29.4 wzIobomm03.7-34.3 Kindred HealthcareComment on above:Performed By: #### CBC, BMP ####[address] [address] [facility] Auto (RBC) [Mass/Vol]Ordered By: Luis Angel Saucedo on 46-94-6765ROET (RBC) [Mass/Vol]33.3 g/dL32.0-35.0St. [facility] CenterV [Entitic volume] by Automated countOrdered By: Luis Angel Saucedo on 57-13-7703QIE (RBC) [Entitic vol]88.1 hZOpzxjv58-735RbwdpgcwpKindred HealthcareComment on above:Performed By: #### CBC, BMP ####[place] [address] USANeutrophils [#/volume] in Blood by Automated count Ordered By: Luis Angel Saucedo on 69-70-0038Bhnzuabajsu (Bld) [#/Vol]7.3 10*3/uL Normal1.8-7.7FHighland District HospitalComment on above:Performed By: #### CBC, BMP ####[place] [id number] USANo Panel InformationOrdered By: Luis Angel Saucedo on 04-07-2181Uyduaowrh GFR (CKD-EPI)55.878 mL/MinKindred HealthcarePharmacy Creatinine Clearance (ChemN/AFHighland District HospitalNucleated erythrocytes [Presence] in Blood by Automated countOrdered By: Luis Angel Saucedo on 05-17-2023 Nucleated RBC Auto Ql (Bld)0.1 /100{WBC}0-0.5FHighland District Hospital Platelet mean volume [Entitic volume] in Blood by Automated countOrdered By: Luis Angel Saucedo on 28-60-0761Iwtkedad mean volume (Bld) [Entitic vol]10.6 fLNormal 6.3-10.7FHighland District HospitalComment on above:Performed By: #### CBC, BMP ####[address] [place] [address] USAPlatelets [#/volume] in Blood by Automated countOrdered By: Luis Angel Saucedo on 28-53-8935Ybjlefqer (Bld) [#/Vol]228 10*3/vUKorihw472-253SpwjomyzmKindred HealthcareComment on above:Performed By: #### CBC, BMP ####[address] [place] [address] USAPotassium [Moles/volume] in Serum or PlasmaOrdered By: Luis Angel Saucedo on 05-17-2023 Potassium [Moles/Vol]See comment3.5-5.1FHighland District HospitalComment on above:Specimen hemolyzed, callback initiated if neededSerum or plasma anion gap determinationOrdered By: Luis Angel Saucedo on 17-42-7757Mvrka gap [Moles/Vol]TNP Kindred HealthcareComment on above:Test not performedSodium [Moles/volume] in Serum or PlasmaOrdered By: Luis Angel Saucedo on 79-70-0208Wzhtqj [Moles/Vol]141 mmol/RXjairh197-111GlbafzcqtKindred HealthcareComment on above:Performed By: #### CBC, BMP ####[address] [place] [address] USAUrea nitrogen [Mass/volume] in Serum or Plasma Ordered By: Luis Angel Saucedo on 46-05-5410Emwa nitrogen [Mass/Vol]19 mg/dLNormal 7-25Kindred HealthcareComment on above:Performed By: #### CBC, BMP ####[address] [place] [address] [facility] Physician Referralon 04-69-0829Hwjkvzhqq Referral [id number]#1.00CD:127NoalOhio State Harding Hospital CenterCULTURE WOUNDon 91-84-5686PJGIAVN WOUNDCulture Observations: LIGHT GROWTH OF NORMAL SKIN ARIES. Culture Observations: NO GROWTH OF ANAEROBES AT [address] Charles HospitalComment on above: Performed By: #### WOUNDCX #### [facility] [address] Michael HuntMG MAMM DIAGNOSTIC 3D GERARDO CADon 10-71-5955MJ MAMM DIAGNOSTIC 3D GERARDO CADPatient: NORA GIBBS Exam Date: 08/17/2022 : 1940 Gender:F Ordering : DR NOBLE HAYES D.O. Admission #: [id number] Family : Order #: [id number] CLICK HERE TO VIEW EXAM RADIOLOGY REPORT [...] liver/uterine cancer at age 62. LOCATION: [facility] BREAST COMPOSITION: Scattered areas fibroglandular density. [...] by: Margie Lopez MD on 08/17/2022 at 14:32[facility] HospitalUS BREAST RIGHT LIMITEDon 12-33-1287IV BREAST RIGHT LIMITEDPatient: NORA IGBBS Exam Date: 08/17/2022 : 1940 Gender:F Ordering : DR NOBLE HAYES D.O. Admission #: [id number] Family : Order #: [id number] CLICK HERE TO VIEW EXAM RADIOLOGY REPORT [...] liver/uterine cancer at age 62. LOCATION: [facility] BREAST COMPOSITION: Scattered areas fibroglandular density. [...] by: Margie Lopez MD on 08/17/2022 at 14:32NormSelect Medical [facility] BREAST [facility] [employer] Other cb AUTO DIFFon 70-42-5363HTTA #0.1 103/ulNormal 0.0-0.1The [facility] Charles HospitalComment on above:Performed By: #### CBC #### [facility] [address] [address] [address] Michael HuntBasophils/100 WBC (Bld)0.4 %Normal0.2-2.0[facility] Comment on above:Performed By: #### CBC #### [facility] [address] [place] [address] Dr. Michael Hernández #0.3 103/ulNormal0.0-0.7The [facility] Charles HospitalComment on above: Performed By: #### CBC #### [facility] [address] [place] [address] Dr. Michael Daltonosinophils/100 WBC (Bld)2.5 %Normal0.9-7.0[facility] Comment on above:Performed By: #### CBC #### [facility] [address] [place] [address] Dr. Michael Daltonrythrocyte distribution width (RBC) [Ratio]14.9 %Suhmjl63.0-15.[address] Charles HospitalComment on above:Performed By: #### CBC #### [facility] [address] [place] [address] Dr. Michael HuntHematocrit (Bld) [Volume fraction]37.0 %Xtjysp89.0-48.0The [facility] Charles HospitalComment on above:Performed By: #### CBC #### [facility] [address] [place] [address] Dr. Michael HuntHemoglobin (Bld) [Mass/Vol]11.9 g/dLCritically low12.0-16.0The [facility] Charles HospitalComment on above:Performed By: #### CBC #### [facility] [address] [address] [address] Michael Das #0.06 10e3/ulCritically high0.00-0.03The [facility] Comment on above:Performed By: #### CBC #### [facility] [address] [place] [address] Dr. Michael Das %0.5 %Normal0.0-0.5The [facility] Charles HospitalComment on above: Performed By: #### CBC #### [facility] [address] [place] [address] Dr. Michael Ceja #1.7 103/ulNormal1.2-3.8The [facility] Charles HospitalComment on above:Performed By: #### CBC #### [facility] [address] [place] [address] Dr. Michael Crowderhocytes/100 WBC (Bld)15.5 %Critically low20.5-60.0The [facility] Charles HospitalComment on above:Performed By: #### CBC #### [facility] [address] [place] [address] Dr. Michael HuUAL DIFF REQNONormalThe [facility] St. Charles HospitalComment on above: Performed By: #### CBC #### [facility] [address] [place] [address] Dr. Michael Vásquez (RBC) [Entitic mass]29.2 koBoouaw07.7-34.0The [facility] Charles HospitalComment on above:Performed By: #### CBC #### [facility] [address] [place] [address] Dr. Michael Vásquez (RBC) [Mass/Vol]32.2 g/qUYhexem12.9-35.2The [facility] Charles HospitalComment on above:Performed By: #### CBC #### [facility] [address] [place] [address] Dr. Michael Vásquez (RBC) [Entitic vol]90.9 qEVdwnnm62.0-99.0The [facility] Charles HospitalComment on above:Performed By: #### CBC #### [facility] [address] [address] [address] Michael Martinez #1.2 103/ulCritically high0.3-0.8The [facility] Comment on above:Performed By: #### CBC #### [facility] [address] [address] [address] Michael Bowdenocytes/100 WBC (Bld)11.0 %Normal1.7-12.0The [facility] Comment on above:Performed By: #### CBC #### [facility] [address] [address] [address] Michael Nicolas #7.8 103/ulCritically high1.4-6.5The [facility] Comment on above:Performed By: #### CBC #### [facility] [address] [place] [address] Dr. Michael Paizutrophils/100 WBC (Bld)70.1 %Yzwaij67.0-75.0The [facility] Charles HospitalComment on above:Performed By: #### CBC #### [facility] [address] [place] [address] Dr. Michael Ronquillo mean volume (Bld) [Entitic vol]10.2 fLNormal9.5-13.5ThChildren's Hospital of ColumbusComment on above:Performed By: #### CBC #### [facility] [address] [place] [address] Dr. Michael HuntPLT245 103/ldHtnsoz248-027Icv [facility] Charles HospitalComment on above: Performed By: #### CBC #### [facility] [address] [place] [address] Dr. Michael HuntRBC4.07 106/ulCritically low4.20-5.40The [facility] Charles HospitalComment on above:Performed By: #### CBC #### [facility] [address] [place] [address] Dr. Michael HuntWBC11.1 103/ulCritically high4.0-11.0The [facility] Charles HospitalComment on above:Performed By: #### CBC #### [facility] [address] [address] [address] Michael DuttaID PROFILEon 21-12-3781KFBF-HDL RATIO NORMSUniversity Hospitals Parma Medical CenterComuniversity of michigan health on above:Result Comment: 3.3 - 4.4 LOW RISK 4.4 - 7.1 AVERAGE RISK 7.1 - 11.0 MODERATE RISK >11.0 HIGH RISKPerformed By: #### LIPID, ALT, TSH, BMP #### [facility] [address] [address] [address] Michael HuntCholesterol [Mass/Vol]132 mg/dLNormal<=200[facility] Comment on above:Performed By: #### LIPID, ALT, TSH, BMP #### [facility] [address] [place] [address] Dr. Michael Milleresterol in HDL [Mass/Vol]53 mg/jKKlsekq89-64Zvc [facility] HospitalComment on above:Performed By: #### LIPID, ALT, TSH, BMP #### [facility] [address] [address] [address] Michael Milleresterol in LDL [Mass/Vol]43.0 mg/dLHolmes County Joel Pomerene Memorial HospitalComuniversity of mich[facility] health on above:Performed By: #### LIPID, ALT, TSH, BMP #### [facility] [address] [address] [address] Michael Milleresterdanny.total/Cholesterol in HDL [Mass ratio]2.5 {ratio} NormalCleveland ClinicComment on above:Performed By: #### LIPID, ALT, TSH, BMP #### [facility] [address] [place] [address] Dr. Michael HuntHDL NORMAL> or = 60 mg/dl - LOW CARDIOVASCULAR RISK <40 mg/dl - HIGH CARDIOVASCULAR RISKHolmes County Joel Pomerene Memorial HospitalComuniversity of mich[facility] health on above:Performed By: #### LIPID, ALT, TSH, BMP #### [facility] [address] [place] [address] Dr. Michael HuntLDL CALC NORMALSEE [facility] Behavioral Medical CenterComment on above:Result Comment: <100 mg/dl OPTIMAL 100 - 129 mg/dl NEAR OR ABOVE OPTIMAL 130 - 159 mg/dl BORDERLINE HIGH 160 - 189 mg/dl HIGH >190 mg/dl VERY HIGH Performed By: #### LIPID, ALT, TSH, BMP #### [facility] [address] [address] [address] Michael HuntTriglyceride [Mass/Vol]180 mg/dLCritically high<=150The [facility] Charles HospitalComment on above:Performed By: #### LIPID, ALT, TSH, BMP #### [facility] [address] [address] [address] Michael HuntVLDL CALC36.0 mg/dLNormalThe [facility] Charles HospitalComment on above: Performed By: #### LIPID, ALT, TSH, BMP #### [facility] [address] [place] [address] Dr. Michael HuntPROF CHEM 8 (BAS METB)on 44-40-4542Spggr gap [Moles/Vol]13.2 mmol/LNormalThe [facility] Charles HospitalComment on above:Performed By: #### LIPID, ALT, TSH, BMP #### [facility] [address] [address] [address] Michael HuntCalcium [Mass/Vol]9.3 mg/dLNormal8.5-10.1[facility] Comment on above:Performed By: #### LIPID, ALT, TSH, BMP #### [facility] [address] [address] [address] Michael HuntChloride [Moles/Vol]104 mmol/JOtpkfz85-712Vou [facility] Comment on above:Performed By: #### LIPID, ALT, TSH, BMP #### [facility] [address] [address] [address] Michael HuntCO2 [Moles/Vol]24.7 mmol/VCoavcd24.0-32.0The [facility] Comment on above:Performed By: #### LIPID, ALT, TSH, BMP #### [facility] [address] [address] [address] Michael HuntCreatinine [Mass/Vol]1.20 mg/dLCritically high0.55-1.02[facility] ClinicComment on above:Performed By: #### LIPID, ALT, TSH, BMP #### [facility] [address] [place] [address] Dr. Michael DaltonGFR-AF XAJXJAOY70 mL/min/1.29h4Thfbypuosw low>=60The [facility] HospitalComment on above:Performed By: #### LIPID, ALT, TSH, BMP #### [facility] [address] [address] [address] Michael DaltonGFR-NON AF NMFCHXYM18 mL/min/1.05q0Txogazemjv low>=60The [facility] Charles HospitalComment on above:Performed By: #### LIPID, ALT, TSH, BMP #### [facility] [address] [place] [address] Dr. Michael HuntGlucose [Mass/Vol]99 mg/bALpuuip71-288MvzC[facility] Clinic Comment on above:Performed By: #### LIPID, ALT, TSH, BMP #### [facility] [address] [place] [address] Dr. Michael HuntPotassium [Moles/Vol]4.9 mmol/LNormal3.5-5.1[facility] Comment on above:Performed By: #### LIPID, ALT, TSH, BMP #### [facility] [address] [place] [address] Dr. Michael HuntSodium [Moles/Vol]137 mmol/IMkbpuo456-341Dvf [facility] Comment on above:Performed By: #### LIPID, ALT, TSH, BMP #### [facility] [address] [place] [address] Dr. Michael HuntUrea nitrogen [Mass/Vol]30.0 mg/dLCritically high7.0-18.0The [facility] Charles HospitalComment on above:Performed By: #### LIPID, ALT, TSH, BMP #### [facility] [address] [place] [address] Dr. Michael Gilman nitrogen/Creatinine [Mass ratio]25.0 mg/mgNormalThe [facility] Charles HospitalComment on above:Performed By: #### LIPID, ALT, TSH, BMP #### [facility] [address] [place], [place] [address] Dr. Michael Marie 86-42-8447JCG [Catalytic activity/Vol]54 U/OZxctce62-35Rif [facility] HospitalComment on above:Performed By: #### LIPID, ALT, TSH, BMP #### [facility] [address] Michael Love 07-60-9497HAM6.136 uIU/mLCritically high0.358-3.740The [facility] Charles HospitalComment on above:Performed By: #### LIPID, ALT, TSH, BMP #### [facility] [address] [address] [address] Michael HuntCardiovascular Lab Reporton 27-34-9598Nypxokugmhicye Lab Report [facility] Patient Name: [facility] L MR #: [id number] Department of Physician: [facility] Julia Zepeda M.D. Division of Service Date: 09/03/2018 Cardiology Birthdate: 1940 Adult Cardiovascular Room #: [facility] [address] [facility]. [address] [place] [address] Cardiovascular Laboratory Report INDICATION: The patient is [...] informed consent. She was brought to the laborer aquatic life in a fasting state. The right groin area was prepped and draped in usual fashion. Using micropuncture technique, the right common femoral artery was accessed. The inner cannula was advanced and right femoral angiography was performed followed by upsizing to a 6-Montenegrin x 11 cm sheath. Access was also obtained using the same technique in the right common femoral vein and a 6-Montenegrin x 11 cm sheath was placed. A 6-Montenegrin Lee catheter was used for right heart catheterization with measurement of pressures and calculation of cardiac output using the estimated Patricia method. Lee catheter was removed. Bilateral selective coronary angiography was then performed using 6-Montenegrin JL4 and JR4 diagnostic catheters. Catheters were removed. Heparin was administered intravenously and therapeutic ACT confirmed during the rest of the procedure and additional heparin given as needed. A 6-Montenegrin JR4 guiding catheter was advanced and used to engage the right coronary ostium. A Yammer wire was advanced into the distal RCA. Balloon angioplasty in the mid RCA was performed using Emerge 2.5 x 8 mm balloon inflated at 12 atmospheres. Angiography revealed suboptimal results. This was treated using a Synergy 3.0 x 12 mm drug-eluting stent deployed at 11 atmospheres and post dilated using NC Quantum Woody 3.0 x 8 mm noncompliant balloon inflated [...] Zepeda M.D. Date Trans: 09/03/2018 02:15 P/jaswinder DN_JN:[id number]'s Hospital for Rehabilitation Vital Signs Date TimeVital SignValuePerforming QwjkwvuluJwjjdjpr61-16-3478 15:26-0500Body ujljxk648.94 cmBenjamin Ball DO Work Phone: [facility]11-04-2025 15:26-0500 Body mass index (BMI) [Ratio]33.8 kg/y2Dfugqwfu Ball DO Work Phone: 1(419)483-[address] [place], [place] 1409811-04-2025 15:26-0500 Body qzdiqe67.33 kgBenjamin Ball DO Work Phone: [phone])572-[address] [place], [place] 1409811-04-2025 15:26-0500 Diastolic blood bfysdmps67 mm[Hg]Noble Ball DO Work Phone: 1419)[facility] [place], [place] 1409811-04-2025 15:26-0500 Heart rate65 /minBenjamin Ball DO Work Phone: 1419)[facility] [place], [place] 1409811-04-2025 15:26-0500 Respiratory rate12 /minBenjamin Ball DO Work Phone: [phone])[address] [place], [place] 5322711-04-2025 15:26-0500 Systolic blood uwfnltic208 mm[Hg]Noble Ball DO Work Phone: [phone])[address] [place], [place] 5322709-15-2025 13:29-0400 Body glddul352.94 cmBenjamin Ball DO Work Phone: [phone])[address] [place], [place] 5322709-15-2025 13:29-0400 Body mass index (BMI) [Ratio]33.9 kg/j6Mbhhxocf Ball DO Work Phone: 1(186)[address] [place], [place] 5322709-15-2025 13:29-0400 Body veqwue87.41 kgBenjamin Ball DO Work Phone: [phone])[address] [place], [place] 5322709-15-2025 13:29-0400 Diastolic blood gcvhzpod35 mm[Hg]Noble Ball DO Work Phone: 1(419)[address] [place], [place] 5322709-15-2025 13:29-0400 Diastolic blood glanacls92 mm[Hg]Noble Ball DO Work Phone: 1419)[facility] [place], [place] 1409809-15-2025 13:29-0400 Heart rate66 /minBenjamin Ball DO Work Phone: 1419)[facility] [place], [place] 1409809-15-2025 13:29-0400 Respiratory rate24 /minBenjamin Ball DO Work Phone: 1(458)[facility] [place], [place] 1409809-15-2025 13:29-0400 Systolic blood mm[Hg]Noble Ball DO Work Phone: 1(419)[address] [place], [place] 5322709-15-2025 13:29-0400 Systolic blood mm[Hg]Noble Ball DO Work Phone: 1(419)[address] [place], [place] 5322708-19-2025 10:24-0400 Body wukqhf558.94 cmBenjamin Ball DO Work Phone: 1(419)[address] [place], [place] 5322708-19-2025 10:24-0400 Body mass index (BMI) [Ratio]34.2 kg/l2Bnyeipvi Ball DO Work Phone: 1(419)[address] [place], [place] 5322708-19-2025 10:24-0400 Body qeilvc64.1 kgBenjamin Ball DO Work Phone: 1(419)[address] [place], [place] 5322708-19-2025 10:24-0400 Diastolic blood hlefzsqd50 mm[Hg]Noble Ball DO Work Phone: 1(419)[address] [place], [place] 5322708-19-2025 10:24-0400 Systolic blood yeersokf024 mm[Hg]Noble Ball DO Work Phone: 1(419)[address] [place], [place] 5322706-18-2025 11:49-0400 Body .94 cmBenjamin Ball DO Work Phone: 1(419)[address] [place], [place] 5322706-18-2025 11:49-0400 Body mass index (BMI) [Ratio]34.4 kg/q8Scqdymle Ball DO Work Phone: 1(419)[address] [place], [place] 5322706-18-2025 11:49-0400 Body .55 kgBenjamin Ball DO Work Phone: 1(419)[address] [place], [place] 5322706-18-2025 11:49-0400 Diastolic blood wreufokd32 mm[Hg]Noble Ball DO Work Phone: 1(419)[address] [place], [place] 5322706-18-2025 11:49-0400 Heart rate56 /minBenjamin Ball DO Work Phone: 1(419)[address] [place], [place] 5322706-18-2025 11:49-0400 SaO2% (BldA) [Mass fraction]97 %Noble Hayes DO Work Phone: [facility]06-18-2025 11:49-0400 Systolic blood repcjyon098 mm[Hg]Noble Hayes DO Work Phone: [facility]06-11-2025 13:48-0400 Body .94 cmKindred Healthcare06-11-2025 13:48-0400Body mass index (BMI) [Ratio]34.5 kg/w5BughbujezKindred Healthcare06-11-2025 13:48-0400Body upxubs08 kgKindred Healthcare06-11-2025 13:48-0400 Diastolic blood xjgwhyxo16 mm[Hg][facility]06-11-2025 13:48-0400Heart rate56 /[facility]06-11-2025 13:48-0400Respiratory rate12 /[facility]06-11-2025 13:48-0400Systolic blood geoexxae460 mm[Hg][facility] 10-06-2024 13:34-0400Body smlutd111.94 cmKindred Healthcare 10-06-2024 13:34-0400Body mass index (BMI) [Ratio]34.6 kg/j1AqttgugqwKindred Healthcare04-28-2025 13:34-0400Body nporcj58.17 kgKindred Healthcare04-28-2025 13:34-0400Diastolic blood jgvntszy96 mm[Hg][facility]04-28-2025 13:34-0400Heart rate85 /[facility]04-28-2025 13:34-0400Respiratory rate24 /[facility]04-28-2025 13:34-6869AqS7% (BldA) [Mass fraction]93 %[facility]04-28-2025 13:34-0400Systolic blood siokngii238 mm[Hg][facility]03-14-2025 12:02-0400Body fvomqz172.94 cmKindred Healthcare03-14-2025 12:02-0400Body mass index (BMI) [Ratio]34.9 kg/n4GmnghjmwnKindred Healthcare03-14-2025 12:02-0400Body ikktom25.02 kg [facility]03-14-2025 12:02-0400Diastolic blood slofsucu56 mm[Hg][facility]03-14-2025 12:02-0400Heart rate54 /min [facility]03-14-2025 12:02-0400Respiratory rate16 /min [facility]03-14-2025 12:02-0400Systolic blood mtquqtsh943 mm[Hg][facility]12-17-2024 14:59-0500Body xepxrw062.94 cmKindred Healthcare12-17-2024 14:59-0500Body mass index (BMI) [Ratio]35.2 kg/l1TzznkmpybKindred Healthcare12-17-2024 14:59-0500Body .48 kgKindred Healthcare12-17-2024 14:59-0500Diastolic blood ggawashd15 mm[Hg][facility]12-17-2024 14:59-0500 Heart rate62 [facility]12-17-2024 14:59-0500 Respiratory rate12 [facility]12-17-2024 14:59-0500 Systolic blood iditilzl931 mm[Hg][facility]09-10-2024 10:27-0400Body azsvlb448.94 cmDO Nika Fagan Work Phone: [facility]09-10-2024 10:27-0400 Body mass index (BMI) [Ratio]34.7 kg/m2DO Nika Fagan Work Phone: [facility]09-10-2024 10:27-0400 Body lkwfen22.46 kgDO Nika Fagan Work Phone: [facility]09-10-2024 10:27-0400 Diastolic blood kcybjtag50 mm[Hg]DO Nika Fagan Work Phone: 1(419)557-[address] [place], [place] 6052309-10-2024 10:27-0400 Heart rate60 /Truman Fagan Work Phone: 1(849)188-[address] [place], [place] 6052309-10-2024 10:27-0400 Respiratory rate20 /Truman Fagan Work Phone: [phone]09-10-2024 10:27-0400 Systolic blood bbcdjjje402 mm[Hg]DO Nika Fagan Work Phone: 1(490)415-[address] [place], [place] 6052306-28-2024 11:49-0400 Body gzenbj837.94 cmDO Nika Fagan Work Phone: 1(333)[address]06-28-2024 11:49-0400 Body mass index (BMI) [Ratio]34.2 kg/m2DO Nika Fagan Work Phone: 1(229)[address]06-28-2024 11:49-0400 Body .15 kgDO Nika Fagan Work Phone: 1(712)481-[address] [place], [place] 6052306-28-2024 11:49-0400 Diastolic blood msvpkjox82 mm[Hg]DO Nika Fagan Work Phone: 1(677)749-[address] [place], [place] 6052306-28-2024 11:49-0400 Heart rate69 /Truman Fagan Work Phone: 6(770)078-[address] [place], [place] 6052306-28-2024 11:49-0400 Respiratory rate20 /Truman Fagan Work Phone: 1(082)297-[address] [place], [place] 6052306-28-2024 11:49-0400 SaO2% (BldA) [Mass fraction]98 %DO Nika Fagan Work Phone: 3(526)509-[address] [place], [place] 6052306-28-2024 11:49-0400 Systolic blood mm[Hg]DO Nika Fagan Work Phone: 0(666)187-[address] [place], [place] 6052306-22-2024 15:17-0400 Diastolic blood pvkbcryt65 mm[Hg]DO Nika Fagan Work Phone: [facility]06-22-2024 15:17-0400 Heart rate60 /Truman Fagan Work Phone: [facility]06-22-2024 15:17-0400 Respiratory rate20 /Truman Fagan Work Phone: [facility]06-22-2024 15:17-0400 SaO2% (BldA) [Mass fraction]96 %DO Nika Fagan Work Phone: [facility]06-22-2024 15:17-0400 Systolic blood qdelxidi954 mm[Hg]DO Nika Fagan Work Phone: [phone]06-22-2024 11:55-0400 Body ufvxnfhrijc20.4 [degF]DO Nika Fagan Work Phone: [phone]06-22-2024 06:08-0400 Body tdyrpe69.5 kgDO Nika Fagan Work Phone: [phone]06-21-2024 15:41-0400 Body .94 cmDO Nika Fagan Work Phone: [facility]06-21-2024 14:47-0400 Diastolic blood oxpobame60 mm[Hg]DO Nika Fagan Work Phone: [facility]06-21-2024 14:47-0400 Heart rate65 /Truman Fagan Work Phone: [facility]06-21-2024 14:47-0400 Respiratory rate16 /Truman Fagan Work Phone: [facility]06-21-2024 14:47-0400 SaO2% (BldA) [Mass fraction]97 %DO Nika Fagan Work Phone: [facility]06-21-2024 14:47-0400 Systolic blood fgazwnev731 mm[Hg]DO Nika Fagan Work Phone: [facility]06-21-2024 10:13-0400 Body yiwrqt184.94 cmDO Nika Fagan Work Phone: [facility]06-21-2024 10:13-0400 Body .1 kgDO Nika Fagan Work Phone: [facility]06-21-2024 10:12-0400 Body ywzchfkevgu50.6 [degF]DO Nika Fagan Work Phone: [phone]06-10-2024 11:24-0400 Body .4 cmDO Noble Hayes Work Phone: [phone]06-10-2024 11:24-0400 Body mass index (BMI) [Ratio]35.9 kg/m2DO Noble Hayes Work Phone: [phone]06-10-2024 11:24-0400 Body .51 kgDO Noble Hayes Work Phone: [phone]06-10-2024 11:24-0400 Diastolic blood mm[Hg]DO Noble Hayes Work Phone: [phone]06-10-2024 11:24-0400 Heart rate67 /minDO Noble Ball Work Phone: [phone]06-10-2024 11:24-0400 Respiratory rate12 /minDO Noble Ball Work Phone: [phone]06-10-2024 11:24-0400 SaO2% (BldA) [Mass fraction]97 %DO Noble Ball Work Phone: [phone]06-10-2024 11:24-0400 Systolic blood wobroakw042 mm[Hg]DO Noble Ball Work Phone: [phone]03-19-2024 09:48-0400 Body ikgkyu225.4 cmDO Noble Ball Work Phone: [phone]03-19-2024 09:48-0400 Body mass index (BMI) [Ratio]35.2 kg/m2DO Noble Ball Work Phone: [phone]03-19-2024 09:48-0400 Body fofiin61.64 kgDO Noble Ball Work Phone: [phone]03-19-2024 09:24-0400 Body puixssjenwi01.6 [degF]DO Noble Ball Work Phone: 1(834)[address] [place], [place] 5322703-19-2024 09:24-0400 Diastolic blood xtymzsuo99 mm[Hg]DO Noble Ball Work Phone: 1(637)[address] [place], [place] 5322703-19-2024 09:24-0400 Heart rate65 /minDO Noble Ball Work Phone: [phone])[address]03-19-2024 09:24-0400 Respiratory rate18 /minDO Noble Ball Work Phone: [phone])[address]03-19-2024 09:24-0400 Systolic blood qqfjiepi979 mm[Hg]DO Noble Ball Work Phone: 1(819)[address] [place], [place] 5322703-01-2024 13:57-0500 Body kxzcag707.4 cmDO Noble Ball Work Phone: 1(028)[address] [place], [place] 5322703-01-2024 13:57-0500 Body mass index (BMI) [Ratio]35.4 kg/m2DO Noble Ball Work Phone: [phone]03-01-2024 13:57-0500 Body sokwfa42.27 kgDO Noble Ball Work Phone: 1(347)[address] [place], [place] 5322703-01-2024 13:57-0500 Diastolic blood nlqicprw82 mm[Hg]DO Noble Ball Work Phone: [phone](351)[address]03-01-2024 13:57-0500 Heart rate73 /minDO Noble Ball Work Phone: 1(654)[address] [place], [place] 5322703-01-2024 13:57-0500 Respiratory rate12 /minDO Noble Ball Work Phone: [facility]03-01-2024 13:57-0500 Systolic blood zpqlegzv646 mm[Hg]DO Noble Ball Work Phone: [facility]02-27-2024 09:54-0500 Body jtftdu815.4 cmDO Noble Ball Work Phone: [facility]02-27-2024 09:54-0500 Body mass index (BMI) [Ratio]35.2 kg/m2DO Noble Hayes Work Phone: [facility]02-27-2024 09:54-0500 Body .64 kgDO Noble Ball Work Phone: [facility]02-05-2024 11:30-0500 Body vwxxae495.94 cmBenjamin Ball Other [employer] Other 02-05-2024 11:30-0500Body mass index (BMI) [Ratio] 33.74 kg/k6Zlhzqmjv Ball Other [employer] Other 02-05-2024 11:30-0500Body .01 kgBenjamin Ball Other [employer] Other 02-05-2024 11:30-0500Diastolic blood hqehgnjc66 mm[Hg] Noble Ball Other [facility] [employer] Other 02-05-2024 11:30-0500Respiratory rate12 /minBenjamin Ball Other [employer] Other 02-05-2024 11:30-0500Systolic blood fuwtqzzz750 mm[Hg] Noble Ball Other [employer] Other 12-18-2023 14:28-0500Diastolic blood kytrtgtf43 mm[Hg] DO Noble Ball Work Phone: [phone] [place], [place] 1409812-18-2023 14:28-0500 Heart rate58 /minDO Noble Ball Work Phone: [phone])[phone] [place], [place] 1409812-18-2023 14:28-0500 Respiratory rate16 /minDO Noble Ball Work Phone: 1419)[facility] [place], [place] 1409812-18-2023 14:28-0500 SaO2% (BldA) [Mass fraction]94 %DO Noble Ball Work Phone: 1(526)[address] [place], [place] 5322712-18-2023 14:28-0500 Systolic blood mgecowzh353 mm[Hg]DO Noble Ball Work Phone: 1(265)[address] [place], [place] 5322712-18-2023 13:22-0500 Inhaled oxygen flow rate6 L/minDO Noble Ball Work Phone: 1(584)[address] [place], [place] 5322712-18-2023 13:07-0500 Body egvljogzuwg44.4 [degF]DO Noble Ball Work Phone: 1(313)[address] [place], [place] 5322712-18-2023 12:32-0500 Body mpmden222.94 cmDO Noble Ball Work Phone: 1(112)[address] [place], [place] 5322712-18-2023 12:32-0500 Body mass index (BMI) [Ratio]33.7 kg/m2DO Noble Ball Work Phone: 1(249)[address] [place], [place] 5322712-18-2023 12:32-0500 Body lolqxf09 kgDO Noble Ball Work Phone: 1(551)[address] [place], [place] 5322712-05-2023 09:57-0500 Body gsxuky951.4 cmDO Noble Ball Work Phone: 1(713)[address] [place], [place] 5322712-05-2023 09:57-0500 Body mass index (BMI) [Ratio]35.2 kg/m2DO Noble Ball Work Phone: 1(131)[address] [place], [place] 5322712-05-2023 09:57-0500 Body .64 kgDO Noble Ball Work Phone: [facility]12-05-2023 09:12-0500 Body oxlvazigpbn93.1 [degF]DO Noble Ball Work Phone: 1([phone])124-[facility]12-05-2023 09:12-0500 Diastolic blood dknunrgf12 mm[Hg]DO Noble Ball Work Phone: [phone]12-05-2023 09:12-0500 Heart rate68 /minDO Noble Ball Work Phone: [phone]12-05-2023 09:12-0500 Respiratory rate18 /minDO Noble Ball Work Phone: [phone]12-05-2023 09:12-0500 Systolic blood znccszla293 mm[Hg]DO Noble Ball Work Phone: [phone]10-03-2023 14:30-0400 Body bikack633.94 cmBenjamin Ball Other [employer] Other 10-03-2023 14:30-0400Body mass index (BMI) [Ratio] 34.01 kg/a2Vduynrxr Ball Other [employer] Other 10-03-2023 14:30-0400Body evpivq41.65 kgBenjamin Ball Other [employer] Other 10-03-2023 14:30-0400Diastolic blood bvtxeegs12 mm[Hg] Noble Ball Other [employer] Other 10-03-2023 14:30-0400Systolic blood mm[Hg] Noble Ball Other [employer] Other 07-17-2023 15:45-0400Body tpmpoq090.94 cmBenjamin Ball Other [employer] Other 07-17-2023 15:45-0400Body mass index (BMI) [Ratio] 33.97 kg/w8Xpqgbqww Ball Other [employer] Other 07-17-2023 15:45-0400Body jgdxwo80.56 kgBenjamin Ball Other [employer] Other 07-17-2023 15:45-0400Diastolic blood dqsrywxc07 mm[Hg] Noble Ball Other [employer] Other 07-17-2023 15:45-0400Respiratory rate12 /minBenjamin Ball Other [employer] Other 07-17-2023 15:45-0400Systolic blood mm[Hg] Noble Ball Other [employer] Other 04-19-2023 12:00-0400Body jidexw894.94 cmBenjamin Ball Other [employer] Other 04-19-2023 12:00-0400Body mass index (BMI) [Ratio]34.5 kg/u1Ssxanszu Ball Other [employer] Other 04-19-2023 12:00-0400Body fjuckn68.83 kgBenjamin Ball Other [employer] Other 04-19-2023 12:00-0400Diastolic blood chqsmtok92 mm[Hg] Noble Ball Other [employer] Other 04-19-2023 12:00-0400Respiratory rate12 /minBenjamin Ball Other [employer] Other 04-19-2023 12:00-0400Systolic blood davvwskz040 mm[Hg] Noble Ball Other [employer] Other 03-09-2023 10:15-0500Body klzeda111.94 cmBenjamin Ball Other [employer] Other 03-09-2023 10:15-0500Body mass index (BMI) [Ratio] 34.91 kg/a0Ofvdemat Ball Other [employer] Other 03-09-2023 10:15-0500Body .83 kgBenjamin Ball Other [employer] Other 03-09-2023 10:15-0500Diastolic blood joaeemew94 mm[Hg] Noble Ball Other [employer] Other 03-09-2023 10:15-0500Respiratory rate12 /minBenjamin Ball Other [employer] Other 03-09-2023 10:15-0500Systolic blood cegohphy608 mm[Hg] Noble Ball Other [employer] Other 03-02-2023 10:15-0500Body .94 cmBenjamin Ball Other [employer] Other 03-02-2023 10:15-0500Body mass index (BMI) [Ratio] 34.91 kg/e0Dwtxtqgw Ball Other [employer] Other 03-02-2023 10:15-0500Body xkaitb43.83 kgBenjamin Ball Other [facility] [employer] Other 03-02-2023 10:15-0500Diastolic blood mm[Hg] Noble Ball Other [facility] [employer] Other 03-02-2023 10:15-0500Respiratory rate12 /minBenjamin Ball Other [facility] [employer] Other 03-02-2023 10:15-0500Systolic blood jgevkole770 mm[Hg] Noble Ball Other [employer] Other 05-11-2022 12:57-0400Body undntm922.5 cmMindy Vianey PA-C Work Phone: [facility]05-11-2022 12:57-0400Body temperature 97.7 [degF]Genny Vianey PA-C Work Phone: [facility]05-11-2022 12:57-0400Body gtctec91.28 kgMindy Vianey PA-C Work Phone: [facility]05-11-2022 12:57-0400Diastolic blood mm[Hg]Genny Vianey PA-C Work Phone: [facility]05-11-2022 12:57-0400Heart rate69 /min Genny Vianey PA-C Work Phone: [facility]05-11-2022 12:57-0400Respiratory rate 18 /minMindy Vianey PA-C Work Phone: [facility]05-11-2022 12:57-0053ZbD4% (BldA) [Mass fraction]94 %Genny Vianey PA-C Work Phone: [facility]05-11-2022 12:57-0400Systolic blood qygnxicg090 mm[Hg]Genny Winters PA-C Work Phone: [facility] Encounters Encounter DateEncounter TypeCare ProviderFacilityStart: 04-14-2025 End: 06-06-7607oiskfjselhPzocqtvz Ball DO Work Phone: [facility]Start: 04-14[facility]2025 End: 64-96-5853Tgfeool encounter procedureBenjamin Ball DO-[facility] Work Phone: Start: 03-11-2025 End: 69-23-1210fyimkgpdtfVxkmmtfe Ball DO Work Phone: [facility] Work Phone: Start: 03-11-2025 End: 86-46-4950Ruqybct encounter procedureBenjamin Ball DO-[facility] Work Phone: Start: 03-10-2025 End: 39-27-8973yuqajndducWGPZLMUR E BALLFacility:[facility]: 03-10-2025 End: 89-46-3735gagcbwehmtYSIIXIRK E BALLFacility:[facility]tart: 02-23-2025 End: 63-26-5589uzirgahfhwIedognkg Ball DO Work Phone: [facility] Work Phone: Start: 02-23-2025 End: 50-89-8425Jebuvkj encounter procedureBenjamin Ball DO-[facility] Work Phone: Start: 02-02-2025 End: 09-77-0097csklelvgwaKosncxjm Ball DO Work Phone: [facility] Work Phone: Start: 02-02-2025 End: 48-19-1060Bebvonb encounter procedureBenjamin Ball DO-[facility] Work Phone: Start: 01-27-2025 End: 65-14-5901cgnrabdmplBsualjuf Ball DO Work Phone: [facility] Work Phone: Start: 01-27-2025 End: 69-36-5449Wdjdfij encounter procedureBobby Junior MD-[facility] Work Phone: Start: 12-31-2024 End: 17-75-3682xsjuxygbdwPaljlgfi Ball DO Work Phone: [facility] Work Phone: Start: 12-31-2024 End: 18-09-0876Fwekjwg encounter procedureBenaida Hayes DO-[facility] Work Phone: Start: 12-29-2024 End: 14-20-9195xxeabbvapkVBLOIMC[facility] Clinic [facility] Start: 12-01-2024 End: 17-78-4172Uaiqgwl encounter procedureBenaida Hayes DO-[facility] Work Phone: Start: 11-26-2024 End: 99-21-1579Zjthbxk encounter procedureBenaida Hayes DO-[facility] Work Phone: Start: 95-09-2116Cjx-patient / Non-visitCatherine Darshan [employer]-[facility] Work Phone: Start: 34-38-6937Fbmqfltrtt and management of inpatientSAMAR [facility]art: 11-21-2024 ambulatoryGEORUniversity Hospitals Parma Medical Centertart: 11-21-2024 End: 81-55-4112Stwdrvhrun and management of inpatientOMAR [facility] Hospitalt[facility]: 11-19-2024 End: 08-82-3068vzycaeeexnVvcwhqwboMarietta [facility] Work Phone: Start: 11-19-2024 End: 29-85-3167Lqhjxkv encounter procedureLakeshia Pierce-[facility] Work Phone: Start: 01-92-0627Rcs-patient / Non-visitFirelands Physician Group-[facility] Work Phone: Start: 10-29-2024 End: 85-12-6458Dajvpil encounter procedureFirelands Physician Group-[facility] Work Phone: Start: 67-99-7882Moq-patient / Non-visitFirelands Physician Group-[facility] Work Phone: Start: 10-06-2024 End: 21-71-2409qbehpgpsulVrkbunhceOhioHealth Hardin [facility] Hospital Work Phone: Start: 10-06-2024 End: 51-25-5431Sdrwwfr encounter procedureFirelands Physician Group-[facility] Work Phone: Start: 07-13-6024Cys-patient / Non-visitFirelands Physician Group-[facility] Work Phone: Start: 74-74-0197Qjo-patient / Non-visitFirelands Physician Group-[facility] Work Phone: Start: 09-29-2024 End: 18-97-9749rqiirxeekrXlyvyhhgvOhioHealth Hardin [facility] Hospital Work Phone: Start: 09-29-2024 End: 39-37-9256Ghrdieu encounter procedureFirelands Physician Group-[facility] Work Phone: Start: 09-26-2024 End: 69-05-5120nfnpbkzxdxBEYFRW CAJOAQUIMK[facility] Start: 08-27-2024 End: 83-89-5023mfvzoosqazSbqcwgscv [facility] Work Phone: Start: 08-27-2024 End: 62-05-7214Mouxase encounter procedureFirelands Physician Group-[facility] Work Phone: Start: 08-22-2024 End: 76-28-0425xhfrdgliefKrgekbiuc [facility] Work Phone: Start: 08-22-2024 End: 23-64-4617Lrdublq encounter procedureFirelands Physician Group-[facility] Work Phone: Start: 07-28-2024 End: 38-69-3853ydwjytkhjkZxnuerpuzOhioHealth [facility]in [facility] Hospital Work Phone: Start: 07-28-2024 End: 56-74-6812Kebrodb encounter procedureFirelands Physician Group-[facility] Work Phone: Start: 07-21-2024 End: 23-69-7763rdqtpvvqbeQFCJPECleveland Clinic [facility] Start: 06-23-2024 End: 62-14-5187xcctotpygoBnztrezwbOhioHealth [facility]in [facility] Hospital Work Phone: Start: 06-23-2024 End: 85-12-5350Rgitlac encounter procedureFirelands Physician Group-[facility] Work Phone: Start: 78-40-0498Pdg-patient / Non-visitFirelands Physician Group-[facility] Work Phone: Start: 05-27-2024 End: 48-27-6406Biemoni encounter procedureFirelands Physician Group-[facility] Work Phone: Start: 24-96-4378Wbkcmep encounter procedureCleveland Clinic Mercy Hospitaltart: 05-21-2024 End: 44-51-6802Zsxzddu encounter procedureFirelands Physician Group-[facility] Work Phone: Start: 04-21-2024 End: 19-87-4482uggoyrzedjIainsewjxOhioHealth Hardin [facility] Hospital Work Phone: Start: 04-21-2024 End: 38-86-7683Cmlrkjo encounter procedureFirelands Physician Group-[facility] Work Phone: Start: 03-19-2024 End: 25-51-2526iumrxasvcdIlqnamfxaOhioHealth [facility]in [facility] Hospital Work Phone: Start: 03-19-2024 End: 41-33-8078Pxizork encounter procedureFirsentara leigh hospital Physician [facility] Work Phone: Start: 03-19-2024 End: 67-32-4119fwglvvosemYGRJNSXAshtabula County Medical Centertart: 00-21-6652Amc-patient / Non-visitFirelands Physician Group-[facility] Work Phone: Start: 13-37-8859Mgh-patient / Non-visitFirmarlettes Physician Group-[facility] Work Phone: Start: 02-19-2024 End: 59-06-6364cgbonhmjtdHK Alexandra M [employer] Work Phone: [facility] Work Phone: Start: 02-19-2024 End: 18-31-9806Dfhjgue encounter procedureDO Nika [employer] Work Phone: [facility] Work Phone: Start: 02-15-2024 End: 34-09-1071eqydbliegmXA Alexandra M [employer] Work Phone: [facility] Work Phone: Start: 02-15-2024 End: 00-59-1808Bhyladg encounter procedureDO Nika [employer] Work Phone: [facility] Work Phone: Start: 43-43-1032Apv-patient / Non-visitDO Nika Fagan Work Phone: [facility] Work Phone: Start: 46-20-7500Ojy-patient / Non-visitDO Nika Fagan Work Phone: firmarletteoli [facility]ician [facility] Work Phone: start: 01-14-2024 End: 13-60-8653nfxnirhxemSP Alexandra M [employer] Work Phone: [facility] Work Phone: Start: 01-14-2024 End: 16-92-7984Jcsvise encounter procedureDO Nika Fagan Work Phone: [facility] Work Phone: Start: 12-10-2023 End: 98-06-4605xnsslmlnhiFO Nika Fagan Work Phone: [facility] Work Phone: Start: 12-10-2023 End: 21-32-4383Gjdxwxb encounter procedureDO Nika Fagan Work Phone: [facility] Work Phone: Start: 12-07-2023 End: 35-17-9586qkemdexmbnJK Nika Fagan Work Phone: [facility] Work Phone: Start: 12-07-2023 End: 16-25-1572Jggijfi encounter procedureDO Nika Fagan Work Phone: [facility] Work Phone: Start: 50-82-4989Toh-patient / Non-visitDO Nika Fagan Work Phone: [facility] Work Phone: Start: 11-30-2023 End: 89-86-2435Guqrjfalfa and management of inpatientDO Nika Fagan Work Phone: [facility] [place] [facility] Work Phone: Start: 11-30-2023 End: 38-07-6947jwgacwxswxq encounterDO Nika Fagan Work Phone: [facility] Work Phone: Start: 11-30-2023 End: 59-06-1025flwcrsbfhsYazmk J WarnerFacility:[facility] Hospitaltart: 52-92-8759Ems-patient / Non-visitDO Nika Fagan Work Phone: [facility]arlet[facility] Work Phone: Start: 11-19-2023 End: 12-64-3928dofjydkyioRB Noble [employer] Work Phone: [facility] Work Phone: Start: 11-19-2023 End: 39-71-8217Kovrvto encounter procedureDO Noble Hayes Work Phone: [facility] Work Phone: Start: 11-08-2023 End: 37-95-8144cjozgwaenePG Noble Hayes Work Phone: [facility] Work Phone: Start: 11-08-2023 End: 14-50-2765Sptnxgp encounter procedureDO Noble Hayes Work Phone: [facility] Work Phone: Start: 10-08-2023 End: 44-05-4718wtxjfoxdgtYA Noble Hayes Work Phone: [facility] Work Phone: Start: 10-08-2023 End: 29-61-7901Jawqwcu encounter procedureDO Noble Hayes Work Phone: [facility] Work Phone: Start: 09-06-2023 End: 22-86-8555bwpyhwabelWM Noble Hayes Work Phone: [facility] Work Phone: Start: 09-06-2023 End: 65-23-6811Usbedyq encounter procedureDO Noble Hayes Work Phone: [facility] Work Phone: Start: 08-28-2023 End: 35-81-9167lylltoeacmPQ Noble Hayes Work Phone: [facility] Work Phone: Start: 08-28-2023 End: 51-96-2349Tnwgvxymyz RecurringDO Noble Hayes Work Phone: [facility] Work Phone: Start: 08-10-2023 End: 36-66-2223Tffpcak encounter procedureDO Noble Hayes Work Phone: [facility] Work Phone: Start: 08-06-2023 End: 56-87-7006Wttuvls encounter procedureDO Noble Hayes Work Phone: [facility] Work Phone: Start: 76-46-6441Bsu-patient / Non-visitDO Noble Hayes Work Phone: [facility]-[employer] Work Phone: Start: 07-16-2023 End: 46-71-4745gukfqstsdrEtwmvdkw Ball Other [employer] Other Start: 57-31-9855Cjnard outpatient visit 25 minutes Noble [facility] ClinicStart: 07-13-2023 End: 38-53-9427eozafvhsrxGbmeeyfz Ball Other [employer] Other Start: 84-18-1795Ryxcvnpdg encounterBenaida Hayes Medical ClinicStart: 07-04-2023 End: 49-89-7424ooawdcloiwVnsjmjqn Ball Other [employer] Other Start: 44-20-3263Kvesgjb evaluation of patient and reportBeivetaida Hayes Medical ClinicStart: 05-30-2023 End: 64-35-1568dkjojhqrqtTqktafii Ball Other [employer] Other Start: 67-94-6981Pyemlkq evaluation of patient and reportBebecki Hayes Medical ClinicStart: 55-03-3872Ecqsgbeca encounter Noble [facility] ClinicStart: 05-28-2023 End: 00-23-8485Pfjnixfxk to same day surgery centerDO Noble Hayes Work Phone: [facility]-Surgery Center Main [place]Start: 05-28-2023 End: 47-02-3664pxqmklinkxTC Benjamin Ball Work Phone: [facility] Work Phone: Start: 05-17-2023 End: 14-04-6285Ustdyzw encounter procedureDO Noble Hayes Work Phone: [facility]-Pmw-Hfqtzdlw Testing Work Phone: Start: 05-17-2023 End: 49-69-5531nhyaedfprkJU Noble aHyes Work Phone: [facility] Work Phone: Start: 01-54-2753Cltnbhrdzo RecurringDO Noble Hayes Work Phone: [facility] [place] Work Phone: Start: 04-26-2023 End: 17-68-4192jtmwbfmwpoDiklmh Braun Other [employer] Other Start: 90-58-2148Ytzotwz evaluation of patient and reportGayle Hayes Medical ClinicStart: 04-10-2023 End: 71-82-7051jtmlzywknpThvekbmh Ball Other [employer] Other Start: 50-03-7365Yfzeuvzyl encounterBenjamin BallFPG [facility] ClinicStart: 03-13-2023 End: 53-17-3748hldjhrkfiqVhcrvlej Ball Other [employer] Other Start: 28-72-1150Lhxnzhm encounter procedureBenjamin BallFP[facility] ClinicStart: 02-15-2023 End: 72-71-3495qmgrwehraeCsehcfwk Ball Other [employer] Other Start: 55-02-0861Uffqnus evaluation of patient and reportBenjamin BallFPG [facility] ClinicStart: 01-26-2023 End: 96-18-4550acxwblaexrQxqhgoyl Ball Other [employer] Other Start: 71-03-6283Tzjniaqki encounterBenjamin BallFP[facility] ClinicStart: 01-21-2023 End: 01-55-6153gzgfpetmarKzjotguq Ball Other [employer] Other Start: 62-01-1431Njxlfxyht encounterBenjamin BallFP[facility] ClinicStart: 01-17-2023 End: 27-35-3254fnxkqxbdvzEakvgzvv Ball Other [employer] Other Start: 31-54-2620Tocgsjaji encounterBenjamin BallFP[facility] ClinicStart: 01-15-2023 End: 80-94-7159wloziybxtpMkkztljx Ball Other [employer] Other Start: 24-07-1249Mwguygx evaluation of patient and reportBenjamin BallFP[facility] ClinicStart: 01-02-2023 End: 94-01-1737gborrielfmEjrbzeta Ball Other [employer] Other start: 46-90-7385Yhjnvrqsq encounterBenjamin BallFP[facility] ClinicStart: 12-27-2022 End: 99-18-4894fbirohwfebYrnjlmru Ball Other [employer] Other Start: 74-10-4279Qudthxhcb encounterBenjamin BallFP[facility] ClinicStart: 12-26-2022 End: 99-98-2204ccvxuulwgrQsegcgbz Ball Other [employer] Other Start: 16-36-4070Iebftlkso encounterBenjamin BallFP[facility] ClinicStart: 12-25-2022 End: 32-12-7532nzybpxibijMorctbmi Ball Other [employer] Other Start: 81-19-2725Aouihp outpatient visit 25 minutes Noble BallFPG [facility] ClinicStart: 12-14-2022 End: 41-76-9659ybayihjntzUposgthk Ball Other [employer] Other Start: 10-57-5041Qeexpvb evaluation of patient and reportBenjamin BallFP[facility] ClinicStart: 11-13-2022 End: 32-74-4051wpguppvorbLmqntoqn Ball Other [employer] Other Start: 23-73-1073Wqhbrwe evaluation of patient and reportBenjamin BallFPG [facility] ClinicStart: 69-29-0341cjetgrsgmmFRAZ TAMLYN .Facility:E3Nmnvj: 22-25-6821xlizojtfaoIIYQ TAMLYN .Facility:X4Tbhzk: 11-02-2022 End: 59-22-1116nnrtswzxiuPG NOBLE BALLFacility:S8Lerdw: 10-30-2022 End: 63-63-6765uqbugkxdtrHKUY TAMLYN .Facility:A7Zurat: 10-27-2022 End: 11-67-0600ccpabudhnyLNRK TAMLYN .Facility:G4Dxqqc: 10-25-2022 End: 60-09-9605bqovvufemuAEHW TAMLYN .Facility:H9Blgnq: 10-23-2022 End: 38-78-9803bwfvgudjplIZLG TAMLYN .Facility:Q5Jdbkk: 10-20-2022 End: 02-02-8604otmwcixvxlESTJ TAMLYN .Facility:K5Omwow: 10-18-2022 End: 27-26-2503cfjmrxfxhcIUKY TAMLYN .Facility:B9Jqrlj: 10-16-2022 End: 79-19-8522ipltxplswqQHRJ TAMLYN .Facility:E6Gnvmj: 32-08-2404Jmdkagn evaluation of patient and reportBenaida PerezG [facility] ClinicStart: 10-12-2022 End: 66-10-6758nwzahjttomJWQR TAMLYN .[facility] [employer] Other Start: 09-27-2022 End: 06-22-0682kuizvduytwSxqnwvvv Ball Other [employer] Other Start: 58-84-5450Soqyvw outpatient visit 25 minutes Noble AnaG [facility]: [facility] End: 68-46-3934jrggmqoxxmBgzcqeby [facility] Other [employer] Other Start: 13-36-4555Xnvcfzu evaluation of patient and reportBenaida PerezG [facility]Start: 08-23-2022 End: 72-96-2426pviwnrexvqQhuyrvdo [facility] Other [employer] Other Start: 91-72-7966Oqsnmafdx encounterBenaida PerezG [facility] ClinicStart: 15-69-3803udyupqbhmyNhuhaif R NILLFacility:FARZANEH [place] Start: 08-17-2022 End: 03-62-1308xuceokzpmaNZ [facility] Other Start: 25-84-9772Bfbyzv outpatient visit 15 minutes [facility] ClinicStart: 31-29-9735Omdmrvizd encounterBebecki Hayes Medical ClinicStart: 08-10-2022 End: 59-55-3285tzeufulpyfAfqmgdzz Ball Other [facility] Other Start: 78-37-3284Zevego outpatient visit 15 minutes [facility] ClinicStart: 07-11-2022 End: 05-37-6503ksheayutyoXnjsfd Braun Other [facility] Other Start: 70-56-0345Xlrxlgt evaluation of patient and reportGayle Hayes Medical ClinicStart: 01-26-2022 End: 21-16-2894kxlcggkuojTK NOBLE BALLFacility:Y7Rfljd: 48-72-9121Jnpso health examinationNoble Hayes Other [facility] [employer] Other Start: 10-19-2021 End: 92-98-0843nlstsbevnwNciyd M Musser PA-C Work Phone: Hematology/OncologyComment on above:Encounter for screening mammogram for malignant neoplasm of breast (Primary Dx)Start: 10-19-2021 End: 62-00-6428Nmruzjx encounter procedureGenny Winters PA-C Work Phone: SANDUSKYStart: 10-73-0859Clrespgpe encounterStephen Caballero MD Work Phone: Hematology/OncologyComment on above:OrdersStart: 11-30-4219Talwforkfdsb cardiovascular examinationNoble Hayes Other [facility] Other Start: 09-03-2018 End: 67-95-4008Ecsyqrb encounter procedurePROVIDER UNKNOWNFacility:UTMCStart: 08-08-2018 End: 82-73-6357Tqdtxsd encounter procedureDEFAULT PHYSICIANFacility:[facility] Procedures DateProcedureProcedure DetailPerforming ClinicianStart: 96-63-5322VR chest wo conNoble Hayes DO Work Phone: Start: 64-83-1138Sgxcot scan of lower limb veinsDO Nika Fagan Work Phone: Start: 84-04-4550BY angiography of thoraxDO Nika Fagan Work Phone: Start: 36-73-4253Putad chest X-rayDO Nika Fagan Work Phone: Start: 37-34-5905VsxifmztvxfJS Noble Hayes Work Phone: Start: 11-07-4743Hpbpfrpqx mammographyBebecki Hayes Other Start: 20-36-4547Lrh-surgery evaluationBebecki Hayes Other Start: 74-55-4666Pbwvkrbtvnva cardiovascular examinationBenaida Hayes Other Depression screeningBebecki Hayes Other Plan of Treatment DateCare ActivityDetailAuthorStart: 12-01-2023 End: 42-43-4494FhtopklccCleveland Clinic Mercy Hospitaltart: 46-22-5026Ynlyih scan of lower limb veinsUS venous duplex LE BIFSt. Mary's Medical Centertart: 29-75-3775RZ Lower extremity vein - bilateralKindred Healthcare Start: 11-30-2023 End: 13-23-5593DbkjhztnsCleveland Clinic Mercy Hospitaltart: 09-77-2777Hagedura admissionCleveland Clinic Mercy Hospitaltart: 47-78-5866Xbugrql Culture Aerobic CultureCleveland Clinic Mercy Hospitaltart: 49-03-0601Qokozqtmf CultureAnaerobic CultureCleveland Clinic Mercy Hospitaltart: 05-28-2023 Microscopic observation [Identifier] in Unspecified specimen by Gram stain [facility] Hospitaltart: 05-28-2023 End: 85-80-5668NcezwrodlCleveland Clinic Mercy Hospitaltart: 30-36-7523CUUJSOOH SCREEN DIABETES SCREENRegional Medical Centertart: 85-35-9178Gfskmlaic vaccinationINFLUENZA (Season Ended)[facility]art: 57-28-1552CYAUR-19 VACCINE (4 - Booster for Pfizer series)COVID-19 VACCINE (4 - Booster for Pfizer series)[facility] Start: 53-93-9101KFNEAFO DIRECTIVE DISCUSSIONADVANCE DIRECTIVE DISCUSSION [facility]art: 06-29-2536TIEX DENSITYBONE DENSITYRegional Medical Centertart: 01-35-2948PYWZBNQQP AGE 65 AND OVER WITH 5YR LOOKBACK (#1)PNEUMOVAX AGE 65 AND OVER WITH 5YR LOOKBACK (#1)[facility]art: 57-57-9946BZKZNWOP VACCINE (1 of 2)SHINGRIX VACCINE (1 of 2)[facility] Cent[facility]art: 25-61-0840RNOZJFWK VACCINE (1 of 2)SHINGRIX VACCINE (1 of 2)[facility] Cent[facility]art: 53-23-2026Ctsii microalbumin profileDTAP,TDAP,TD (1 - Tdap)[facility] Centertart: 1946 PNEUMOCOCCAL: 65+ (1 - PCV)PNEUMOCOCCAL: 65+ (1 - PCV)[facility] HospitalBacteria identified in Unspecified specimen by Aerobe cultureKindred HealthcareBacteria identified in Unspecified specimen by Anaerobe cultureKindred HealthcareComprehensive metabolic 2000 panel - Serum or Plasma Kindred HealthcareCT Chest WO contrastKindred HealthcarePatient EducationMercy Health St. [facility] Ctr Work Phone: Patient referralMercy Health St. Anne Hospital Ctr Work Phone: End: 45-19-9498Luculoskg mammography bi 2-view breast inc cadJ[facility] SCREENING Radiology Routine Encounter for screening mammogram for malignant neoplasm of breast 1 Occurrences starting 10/19/2021 until 11/18/2022[facility] Work Phone: Comment on above:1 Occurrences starting 10/19/2021 until 11/18/2022XR Pelvis and Hip - bilateral ViewsKindred HealthcareXR Pelvis AP and Hip - bilateral GE 2 [facility]Asp[facility] Immunizations Immunization DateImmunizationNotesCare ZxvmhszbIcxhaidh36-43-2049vyvkvqocr, high dose seasonal, preservative-freeBenjamin Ball DO Work Phone: [facility]09-10-2024influenza, high dose seasonal, preservative-freeDO Nika Fagan Work Phone: [facility]10-16-2023influenza virus vaccine, unspecified formulationDO Noble Hayes Work Phone: [facility]10-16-2023influenza, high dose seasonal, preservative-freeBenjamin Ball Other [facility] Other 09-116977-22-4473eldlnkfkt virus vaccine, split virus (incl. purified surface antigen)Noble Hayes Other [facility] Other [id number] virus vaccine, unspecified formulationDO Noble Hayes Work Phone: [facility]09-27-2021COVID-19 vaccine, age 12+ yr (PFIZER-BIONTECH - PURPLE TOP)Genny Winters PA-C Work Phone: [facility] HospitalHecvue77-08-2888gyngmpois virus vaccine, split virus (incl. purified surface antigen)Noble Hayes Other [facility] Other [id number] virus vaccine, unspecified formulationDO Noble Hayes Work Phone: [facility]03-30-2021COVID-19 vaccine, age 12+ yr (PFIZER-BIONTECH - PURPLE TOP)Genny Winters PA-C Work Phone: [facility] HospitalOkzsex58-22-9158NRSKE-25 vaccine, age 12+ yr (PFIZER-Strateg[employer] BlueNTWirescan - [facility])Genny Vianey PA-C Work Phone: [facility] HospitalRdpono03-46-0437wgqimnkku virus vaccine, split virus (incl. purified surface antigen)Noble Hayes Other [facility] [employer] Other 09-578280-68-0802iixpwozih virus vaccine, unspecified formulationDO Noble Hayes Work Phone: [facility]10-08-2019influenza virus vaccine, split virus (incl. purified surface antigen)Noble Hayes Other [facility] [employer] Other [id number] virus vaccine, unspecified formulationDO Noble Hayes Work Phone: [facility]10-01-2018influenza virus vaccine, split virus (incl. purified surface antigen)Noble Hayes Other [facility] [employer] Other 10498128-18-1573zujnppfqp virus vaccine, unspecified formulationDO Noble Hayes Work Phone: [facility]10-01-2018Seasonal trivalent influenza vaccine, adjuvanted, preservative freeMindy Vianey PA-C Work Phone: [facility] HospitalVpcubz34-63-6255vfmcqzfek virus vaccine, split virus (incl. purified surface antigen)Noble Hayes Other [facility] [employer] Other 10806363-84-4668bpgrtsxcw virus vaccine, unspecified formulationDO Noble Hayes Work Phone: [facility]10-17-2017influenza, high dose seasonal, preservative-freeMindy Vianey PA-C Work Phone: [facility] HospitalEdwxkd20-18-2560pqeovsvpd virus vaccine, split virus (incl. purified surface antigen)Noble Hayes Other [employer] Other 10970009-79-6226rlbhuuqmp virus vaccine, unspecified formulationDO Noble Hayes Work Phone: [facility]10-11-2016influenza, high dose seasonal, preservative-freeGenny Winters PA-C Work Phone: [facility] HospitalQfljmq16-90-9741cidqnbyya virus vaccine, split virus (incl. purified surface antigen)Noble Hayes Other [employer] Other 10278154-28-7100hytdmawga virus vaccine, unspecified formulationDO Noble Hayes Work Phone: [facility]10-14-2015 pneumococcal conjugate vaccine, 13 valPete Abigail Other [facility]10-14-2015 pneumococcal Conjugate, unspecified formulation; Translations: [Need for prophylactic vaccination against Streptococcus pneumoniae (pneumococcus)] Noble Hayes Other [employer] Other 11908800-24-3622plwzgbp and diphtheria toxoids, adsorbed, preservative free, for adult use (5 Lf of tetanus toxoid and 2 Lf of diphtheria toxoid)Noble Hayes Other [facility]11-18-2009 pneumococcal polysaccharide vaccine, 23 valPete Hayes Other [facility] Payers DatePayer CategoryPayerPolicy [id number]-eog [id number] Health InsuranceC[facility] A[facility] SUPPLE[facility] [id number] 2014-Present [phone] [address] [place] [address] [id number] 1997MedicareMEDICARE MEDICARE A AND B [id number] 1996-Present [phone] [facility] [address] [place] [address] [id number] [id number] [id number] 2.16.840.1.111046.3.57[id number] 2.16.840.1.354780.3.57[id number] 2.16.840.1.841964.3.57[id number] 2.16.840.1.119437.3.57[id number] 2.16.840.1.680360.3.57[id number] 2.16.840.1.776487.3.57[id number] 2.16.840.1.286938.3.57[id number] 2.16.840.1.968919.3.57[id number] 2.16.840.1.573499.3.57[id number] 2.16.840.1.926679.3.57[id number] 2.16.840.1.387262.3.57[id number] 2.16.840.1.712997.3.57[id number] 2.16.840.1.180053.3.57[id number] 2.16.840.1.027579.3.57[id number] 2..840.1.460574.3.57[id number] 2.16.840.1.599012.[id number] 2.840.1.5[id number] 2.840.1.525635.3.579.2.531 [id number] 2.0.1.8[id number] 2.840.1.677584.3.579.2.531 Social History DateTypeDetailFacilityStart: 11-12-2014 End: 86-42-9334Vzzdfsw smoking status NHISEx-smokerOhio State Harding HospitalHistory of tobacco useCigarette SmokerRegional Medical Centertart: 83-70-4909Vhinmyqqjm smoked current (pack per day) - Ydfmqxxd1Mbphlmoxg ClinicStart: 07-90-9580Tnlajzq use and exposureSmokeless tobacco non-userRegional Medical Centertart: 10-19-2020 End: 11-15-1646Ktcjxpo intakeCurrent non-drinker of alcohol (finding)[facility] Centertart: 39-86-5411Fau Assigned At BirthNot on fileRegional Medical Centertart: 10-09-2021 End: 83-11-9820Tmsrhpbs to SARS-CoV-2 (event)Not sureOhio State Harding Hospital End: 48-32-1943Wka Assigned At [facility] [employer] Other Start: 18-22-2612Nnm [facility] At [facility]tart: 04-21-2024 End: 87-42-2638DocNfcsco (finding)[facility] Goals DatePatient GoalDesired Activity/State Functional Status HqkzTebmauztbdQvvzgrTbjjsxmi55-15-5983Jyqhfplrsw statusPatient at Baseline [facility] Work Phone: 1(746) 343-44560602060-78-2669Jkrccxfrzu statusPatient at Baseline [facility] Work Phone: Mental Status XtukIbrapbjfjuVwtvokDrvzqetm33-03-2604Flucakzem functionCognitive Status [facility] Work Phone: 1(933) 375-608606887740-53-9798Xclmmkhhf functionCognitive Status Patient at [facility] Work Phone: Clinical Notes 09-22-2021 to 03-10-2025 Note Date & GzzuScmpKzysslty17-21-4783 NoteHNO ID: [id number] Author: DAINA MONTELONGO MD Service: ? Author Type: Physician Type: Progress Notes Filed: 03/10/2025 13:58 Note Text: NEW PATIENT OFFICE VISIT Nora Gibbs is a 84 year old female who presents for evaluation of shortness of breath. Nora reports dyspnea with minimal exertion, such as pushing a vacuum glove cleaner a few times, necessitating rest. This [...] Date Arthritis Breast cancer (HCC) Right; T2N0M0; ER/AL+ HER2 COPD (chronic obstructive pulmonary disease) (HCC) [...] current facility-administered medication (more content not included)... [facility] NoteHNO ID: [id number] Author: DOUG WIN RT(R) Service: ? Author Type: Technologist Type: [...] PATIENT PRESENTS WITH AN IMPLANTABLE OR ATTACHED PATIENT SERVICES MANAGER: No RADIOLOGY DEPARTMENT: General X-ray: Exam(s) Completed: Chest X-Ray PERIPHERAL IV DATA: Not applicable SIGNED BY: Doug Win RT(R) March 10, 2025 11:22 [facility]08-19-2025 Evaluation note * Diagnosis Onset Date Resolution Status Admit Date Greater trochanteric bursitis of left hi p acuteAugust 2024 9:48amGreater trochanteric bursitis of right hipacute January 27, 2025 9:48am(HFpEF) heart failure with preserved ejection fraction acuteSept2024 1:21pmASHD (arteriosclerotic heart disease)acute February 23, 2025 1:21pmChronic bronchitisacuteSept2024 1:21pm Chronic kidney diseaseacuteSept2024 1:21pmHistory of breast cancer acuteSept2024 1:21pmHypertensionacuteSeptember 2024 1:21pm HypothyroidismacuteSept2024 1:21pmNicotine dependence, cigarettes, in remissionacuteSept2024 1:21pmObesityacuteSeptember 2024 1:21pm [facility] Work Phone: 1(217) 352-352207-21-2025 NoteUT Cardiology - [facility] Subjective Nora Gibbs is a 84 y.o. 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 [...] and leg swelling. Muscul (more content not included)...[facility] 11-26-2024 Evaluation note* Diagnosis Onset Date Resolution Status Admit Date (HFpEF) heart failure with preserved eje ction fraction acuteJune 2024 11:12amASHD (arteriosclerotic heart disease)acuteJune 2024 11:12amChronic bronchitisacuteJune 2024 11:12amHypertensionacuteJune 2024 11:12amNicotine dependence, cigarettes, in remissionacuteJune 2024 11:12amObesityacuteJune 2024 11:12amGreater trochanteric bursitis of left hipacuteAugust 2024 9:48amGreater trochanteric bursitis of right hip acuteAugust 2024 9:48am(HFpEF) heart failure with preserved ejection fractionacuteSeptember 2024 1:21pmASHD (arteriosclerotic heart disease) acuteSeptember 2024 1:21pmChronic bronchitisacuteSeptember 2024 1:21pmChronic kidney diseaseacuteSeptember 2024 1:21pmHistory of breast canceracuteSeptember 2024 1:21pmHypertensionacuteSeptember 2024 1:21pmHypothyroidismacuteSeptember 2024 1:21pmNicotine dependence, cigarettes, in remissionacuteSept2024 1:21pmObesityacuteSept2024 1:21pm [facility] Work Phone: 1(959) 346-122806-14-2025 [facility] NoteHospital Medicine Discharge Summary Final Discharge Diagnosis: Coronary artery disease s/p drug-eluting stent to mid circumflex, previous PCI to RCA COPD, not in exacerbation History of breast cancer Hypothyroidism Chronic heart failure with preserved ejection fraction, NYHA class I Admission Diagnosis: Coronary artery disease involving modoc coronary artery of modoc heart with other form of angina pectoris [I25.118] Chronic diastolic congestive heart failure (CMS/HCC) [I50.32] Shortness of breath [R06.02] CAD in modoc artery [I25.10] Hospital course: Nora Gibbs is [...] oral liquid Commonly known as: Vitamin B-12 xnnmccnuiqp-opigrnhxe-dlgsochy 200-62.5-25 mcg blister with device Commonly known [...] Medications These medications were sent to [facility] - [place], [place] - [address] [place] [address] [place] [address], [facility] [address] clopidogrel 75 mg tablet doxazosin 4 mg [...] 55, temperature 36.3 ???C (more content not included)...[facility]06-14-2025 NoteUTP CARDIOLOGY INPATIENT PROGRESS NOTE Reason for [...] uncontrolled systemic hypertension and possibly significant right JUVE stenosis. Started Plavix for 1 year and [...] uncontrolled systemic hypertension and possibly significant right JUVE stenosis. Started Plavix for 1 year and ongoing ASA for life. A 5 [employer] information security systems instructor device was used to manage the right [...] -- -- 59 17 -- -- -- 06/13/25 2200 (!) 144/47 -- -- 56 15 -- -- -- 11/21/242131 140/62 -- -- 56 16 92 % -- -- 11/21/24 2100 (!) 148/44 -- -- 56 16 94 % -- -- 11/21/242031 -- -- -- -- -- -- 1.549 m (5' 1 ) -- 11/21/242029 144/63 -- -- 57 22 9 (more content not included)...[facility]06-14-2025 NoteCase was discussed with the FER on 11/21/2024. I agree with the history, physical, assessment, and plan of care. I discussed the findings and therapeutic plan. I agree with the documentation, except for any updates below. Bianca Pierre MDUnMercy Health St. Charles Hospital06-14-[address]Mercy [address] Charles Hospital06-14-2025 Note- Not in exacerbation, continue home inhalersUnMercy Health St. Charles Hospital 11-22-[address] Charles Hospital06-14-2025 Note- Severe 80% stenosis in the mid circumflex reduced to 0% by a Synergy XD drug-eluting stent -Previous stent to the RCA - DAPT for 12 months, then aspirin 81 mg daily for life. Statin therapy for life. -Follow-up A1c and lipidsUnMercy Health St. Charles Hospital06-14-2025 Note Hospital Medicine History and Physical 11/22/2024 1:13 AM THE HOSPITALIST TEAM PREFERS TO USE [employer] CHAT FOR NON-URGENT COMMUNICATION 7AM-7PM. IF I DO NOT RESPOND WITHIN 20 MINUTES OR URGENT MATTERS, PLEASE CALL THROUGH THE [employer] SET UP OPERATOR. FROM 7PM-7AM, PLEASE PAGE [phone](COVR). Chief Complaint No chief complaint on file. [...] and Plan Assessment & Plan CAD in modoc artery - Severe 80% stenosis in the mid circumflex reduced to 0% by a Synergy XD drug-eluting stent -Previous stent to the RCA - DAPT for 12 months, then aspirin 81 mg daily for life. Statin therapy for life. -Follow-up A1c and lipids Chronic obstructive lung disease ([facility]) - Not in exacerbation, continue home inhalers History of breast cancer Hypothyroidism Continue Synthroid Chronic diastolic congestive heart failure ([facility]) Not in exacerbation VTE Prophylaxis: [...] this hospital stay by a member of [facility] Medicine. Past Medical History Medical History[1] [...] quittin.4 Smokeless tobacco: Neve (more content not included)...[facility]06-13-2025 NotePatient: Nora Lopes Soheila Procedure Information Date/Time: 11/21/24 1330 Procedures: Coronary angiography - NPCR Right heart cath Location: [facility] PACKAGING OPERATOR 3 / [facility] (Cath) Providers: Bala Zepeda MD Clinical information reviewed: Allergies Meds Physical Exam Airway Mallampati: III TM distance: >3 FB Cardiovascular Dental Pulmonary Neurological Abdominal Anesthesia Plan ASA 3 other (Moderate sedation ) Additional Equipment RequestsUnMercy Health St. Charles Hospital06-11-2025 Evaluation note* Diagnosis Onset Date Resolution Status Admit Date (HFpEF) heart failure with preserved eje ction fraction acuteJun2024 1:43pmASHD (arteriosclerotic heart disease)acuteJun2024 1:43pmChronic bronchitisacuteJun2024 1:43pmHypertensionacuteJune 2024 1:43pmHypothyroidismacuteJune 2024 1:43pmNicotine dependence, cigarettes, in remissionacuteNovember 19, 2024 1:43pmObesityacuteJune 2024 1:43pm(HFpEF) heart failure with preserved ejection fractionacuteJun2024 11:12amASHD (arteriosclerotic heart disease)acuteNovember 26, 2024 11:12amChronic bronchitisacuteJun2024 11:12amHypertensionacuteJune 2024 11:12am Nicotine dependence, cigarettes, in remissionacuteNovember 26, 2024 11:12amObesity acuteNovember 26, 2024 11:12amGreater trochanteric bursitis of left hipacuteAugust 2024 9:48amGreater trochanteric bursitis of right hipacuteAugust 2024 9:48am [facility] Work Phone: 1([phone]) 975-134404-28-2025 Evaluation note* Diagnosis Onset Date Resolution Status Admit Date ASHD (arteriosclerotic heart disease) acuteApril 2024 1:19pmChronic bronchitisacuteApril 2024 1:19pm HypertensionacuteApril 2024 1:19pmHypertensive chronic kidney diseaseacute October 06, 2024 1:19pmChronic obstructive pulmonary disease with (acute) lower respiratory infectionnoneactiveApril 2024 1:19pmAcute exacerbation of chronic obstructive airways diseasenoneactiveApril 2024 1:19pm(HFpEF) heart failure with preserved ejection fractionacuteJun2024 1:43pmASHD (arteriosclerotic heart disease)acuteJun2024 1:43pmChronic bronchitis acuteJun2024 1:43pmHypertensionacuteJune 5 1:43pmHypothyroidism acuteNovember 19, 2024 1:43pmNicotine dependence, cigarettes, in remissionacute November 19, 2024 1:43pmObesityacuteNovember 19, 2024 1:43pm(HFpEF) heart failure with preserved ejection fractionacuteNovember 26, 2024 11:12amASHD (arteriosclerotic heart disease)acuteNovember 26, 2024 11:12amChronic bronchitis acuteNovember 26, 2024 11:12amHypertensionacuteNovember 26, 2024 11:12amNicotine dependence, cigarettes, in remissionacuteNovember 26, 2024 11:12amObesityacuteNovember 26, 2024 11:12am [facility] Work Phone: 1([phone]) 375-908204-18-2025 NoteUT Cardiology - [facility] Subjective Nora Gibbs is a [...] was admitted to the emergency room at [facility] with chest pain, And shortness of breath. [...] heart failure with preserved eje ction fraction [facility]20[facility] 11:22amASHD (arteriosclerotic heart disease)acuteSaint [facility]2024 11:22amChronic bronchitisacuteMar2024 11:22amHypertension acuteSaint [facility] Hospital2024 11:22amHypothyroidismacuteSaint [facility] Hospital2024 11:22amNicotine dependence, cigarettes, in remissionacuteAugust 22, 2024 11:22amObesityacute August 22, 2024 11:22amStage 3a chronic kidney diseaseacuteSaint [facility] Hospital2024 11:22am [facility] Work Phone: 1(281) 150-262503-14-2025 Evaluation note* Diagnosis Onset Date Resolution Status Admit Date (HFpEF) heart failure with preserved eje ction fraction acuteSaint [facility]2024 11:22amASHD (arteriosclerotic heart disease)acuteSaint [facility]2024 11:22amChronic bronchitisacuteSaint [facility]2024 11:22amHypertension acuteGre[facility] 20[facility] 11:22amHypothyroidismacuteMarch 2024 11:22amNicotine dependence, cigarettes, in remissionacuteSaint [facility] Hospital2024 11:22amObesityacute August 22, 2024 11:22amStage 3a chronic kidney diseasedeletedMarch 2024 11:22amASHD (arteriosclerotic heart disease)acuteApril 2024 1:19pmChronic bronchitisacuteApril 2024 1:19pmHypertensionacuteApril 2024 1:19pm Hypertensive chronic kidney diseaseacuteApril 2024 1:19pmChronic obstructive pulmonary disease with (acute) lower respiratory infectionnoneactive October 06, 2024 1:19pmAcute exacerbation of chronic obstructive airways disease noneactiveApril 2024 1:19pm(HFpEF) heart failure with preserved ejection fractionacuteJune 2024 1:43pmASHD (arteriosclerotic heart disease)acute November 19, 2024 1:43pmChronic bronchitisacuteJune 2024 1:43pmHypertension acuteJune 2024 1:43pmHypothyroidismacuteJune 2024 1:43pmNicotine dependence, cigarettes, in remissionacuteJune 2024 1:43pmObesityacuteJune 2024 1:43pm [facility] Work Phone: 1(416) 696-141802-10-2025 NoteUT Cardiology - [facility] Subjective Nora Gibbs is a [...] was admitted to the emergency room at [facility] with chest pain, And shortness of breath. [...] heart failure with preserved eje ction fraction acuteDe2023 2:50pmASHD (arteriosclerotic heart disease)acute May 27, 2024 2:50pmChronic bronchitisacuteDece2023 2:50pm HypertensionacuteDe2023 2:50pmHypothyroidismacuteDece2023 2:50pmMedicare annual wellness visit, subsequentacuteMay 27, 2024 2:50pmNicotine dependence, cigarettes, in remissionacuteMay 27, 2024 2:50pmObesityacuteDecemb2023 2:50pmScreening mammogram for breast canceracuteMay 27, 2024 2:50pmStage 3a chronic kidney diseaseacute May 27, 2024 2:50pm [facility] Work Phone: 1(205) 299-816712-17-2024 Evaluation note* Diagnosis Onset Date Resolution Status Admit Date (HFpEF) heart failure with preserved eje ction fraction acuteMay 27, 2024 2:50pmASHD (arteriosclerotic heart disease)acute May 27, 2024 2:50pmChronic bronchitisacuteMay 27, 2024 2:50pm HypertensionacuteMay 27, 2024 2:50pmHypothyroidismacuteMay 27, 2024 2:50pmMedicare annual wellness visit, subsequentacuteMay 27, 2024 2:50pmNicotine dependence, cigarettes, in remissionacuteMay 27, 2024 2:50pmObesityacuteDece2023 2:50pmScreening mammogram for breast canceracuteMay 27, 2024 2:50pmStage 3a chronic kidney diseaseacute May 27, 2024 2:50pm(HFpEF) heart failure with preserved ejection fraction acuteMar2024 11:22amASHD (arteriosclerotic heart disease)acuteMar 2024 11:22amChronic bronchitisacuteMar 2024 11:22amHy[facility] 11:22amHypothyroidismacuteMar 2024 11:22amNicotine dependence, cigarettes, in remissionacuteMar 2024 11:22amObesityacute August 22, 2024 11:22amStage 3a [facility] 11:22am [facility] Work Phone: 1([phone]) 357-136210-09-2024 [facility] Chief Complaint Patient presents with [...] at bedtime., Disp: 90 tablet, Rfl: 3 rncepfwfeii-eblcjdhbj-nbvuoehv 200-62.5-25 mcg blister with device, INHALE 1 [...] heart failure with preserved eje ction fraction acuteSept2023 10:17amASHD (arteriosclerotic heart disease)acute February 19, 2024 10:17amChronic bronchitisacuteSept2023 10:17am HypothyroidismacuteSept2023 10:17amNicotine dependence, cigarettes, in remissionacuteSept2023 10:17amObesityacuteSept2023 10:17amStage 3a chronic kidney diseaseacuteSept2023 10:17am [facility] Work Phone: 1(609) 193-620409-10-2024 Evaluation note* Diagnosis Onset Date Resolution Status Chest pain resolvedASHD (arteriosclerotic heart disease)acuteStage 3a chronic kidney diseaseacuteChest painresolved(HFpEF) heart failure with preserved ejection fractionacuteASHD (arteriosclerotic heart disease)acuteStage 3a chronic kidney [facility]Joint [facility] Work Phone: 1(218) 210-794409-06-2024 Evaluation note* Diagnosis Onset Date Resolution Status ASHD (arteriosclerotic heart disease) acuteChronic bronchitisacuteHistory of breast canceracuteHypothyroidismacute Pernicious anemiaacuteStage 3a chronic kidney diseaseacuteChest painresolved Acute on chronic heart failure with preserved ejection fraction (HFpEF)acuteASHD (arteriosclerotic heart disease)acuteStage 3a chronic kidney diseaseacuteChest painresolved [facility] Work Phone: 1([phone]) 932-379708-05-2024 Evaluation note* Diagnosis Onset Date Resolution Status ASHD (arteriosclerotic heart disease) acuteChronic bronchitisacuteHistory of breast canceracuteHypothyroidismacute Pernicious anemiaacuteStage 3a chronic kidney diseaseacuteChest painresolved Acute on chronic heart failure with preserved ejection fraction (HFpEF)acuteASHD (arteriosclerotic heart disease)acuteStage 3a chronic kidney diseaseacuteChest painresolved [facility] Work Phone: 1(512) 837-385307-01-2024 Evaluation note* Diagnosis Onset Date Resolution Status ASHD (arteriosclerotic heart disease) acuteChronic bronchitisacuteHistory of breast canceracuteHypothyroidismacute Pernicious anemiaacuteStage 3a chronic kidney diseaseacuteChest painresolved Acute on chronic heart failure with preserved ejection fraction (HFpEF)acuteASHD (arteriosclerotic heart disease)acuteStage 3a chronic kidney diseaseacuteChest painresolved [facility] Work Phone: 1(131) 331-743506-21-2024 History and physical note Author Jim Clay [facility] November 30, 2023 5:16pmNote Date/TimeJune 2023 3:48pm[place] [address] Hospitalist H&P Signed Patient: Nora Gibbs MR#: [id number] : 1940 Acct:[id number] Age/Sex: 83 / F Adm Date: 4 Loc: Room: [address] [place] [address] Type: ADM INOo Attending Dr: Jim Clay DO Copies to: DO Jim Jean-Baptiste DO~ HPI DATE OF EXAMINATION: 11/30/23 CHIEF COMPLAINT: chest pain HISTORY OF PRESENT ILLNESS: Ms. Gibbs is a 83F with a history of previous CAD with stent in place and COPDwho presents to theED today with SOB and chest pain on exertion. She reports that she was SOB when she got up this morning and then started experiencing someleft chest pain when she was walking to the shower a few hours later. She reports that this pain was sharp at first and then felt more like pressure like she hadto burp but couldn't. She states that she [...] and started torsemide. She recently saw her dairy husbandry teacher who recommended an echocardiogram and a stress [...] Slightly elevated BNP of 274. Serial troponins inthe ED were negative. D-dimer 734. Chest x-ray [...] injection solution 1,000 mcg IM QMONTH 05/17/23 [HistoryConfirmed 11/30/23] temazepam 30 mg capsule 30 mg [...] % (Auto) 20.1 % (.) 11/30/23 10:25 Robertson % (Auto) 9.8 % (.) 11/30/23 10:25 Eos % (Auto) 2.8 % (.) 11/30/23 10:25 Baso % (Auto) 0.6 % (.) 11/30/23 10:25 Nucleat RBC Rel Count 0.1 /100 WBC (0-0.5) 11/30/23 10:25 Neut # (Auto) 4.1 x10E3/uL (1.8-7.7) 11/30/23 10:25 Lymph # (Auto) 1.2 x10E3/uL (1.00-4.8) 11/30/23 10:25 Robertson # (Auto) 0.6 x10E3/uL (0.0-0.8) 11/30/23 10:25 [...] explained to her is likely related to hersmall left pleural effusion. She does endorse dyspnea [...] <Electronically signed by Jim Clay DO> 11/30/23 1714 [facility] Work Phone: 1([phone]) 191-361702-27-2024 Progress note Author Luis Angel Saucedo [facility] August 07, 2023 9:59amNote Date/TimeFebruary 2023 9:54am[place] [address] Wound Center Provider Note Signed Patient: Nora Gibbs MR#: [id number] : 1940 Acct:[id number] Age/Sex: 83 / F Copies to: MD [...] of the wound. Thereis a small open areaat the base measuring about 1 mm in [...] hematoma. She did see her surgeon in [place] who did her previous surgery. Patient had some punch biopsies performed to rule out cancer which apparently did not show any cancer. She did develop nonhealing wound at this site. She underwent a couple debridements and closures in [place] but each time, the wound did open up and start draining. The last debridement was last month. The surgeon who did her previous surgerieshas since left and the patient did see Dr. Kurtz last week. He did remove some remaining sutures and the patient wasthen referred here. Patient is currently having dressing changes performed at the [facility]. She has an open right breast [...] did wound start?: 08/2022 Mode of Arrival/ Manager Organizational: Personal vehicle Lives with:: Alone Appetite Description: [...] injection solution 1,000 mcg IM QMONTH 05/17/23 [HistoryConfirmed 05/17/23] temazepam 30 mg capsule 30 mg [...] 0.1 CM Sq: 0.010 Surrounding Tissue Appearance: Argos Surrounding Tissue Temp: Warm Drainage Amount: None [...] by MD Luis Angel Saucedo> 08/07/23 0959 [facility] Work Phone: [phone]) [phone] Progress note Author Luis Angel Saucedo [facility] July 17, 2023 9:52amNote Date/TimeFebruary 2023 9:52am[place] [address] Wound Center Provider Note Signed Patient: Nora Gibbs MR#: [id number] : 1940 Acct:[id number] Age/Sex: 83 / F Copies to: MD [...] hematoma. She did see her surgeon in [place] who did her previous surgery. Patient had some punch biopsies performed to rule out cancer which apparently did not show any cancer. She did develop nonhealing wound at this site. She underwent a couple debridements and closures in [place] but each time, the wound did open up and start draining. The last debridement was last month. The surgeon who did her previous surgerieshas since left and the patient did see Dr. Kurtz last week. He did remove some remaining sutures and the patient wasthen referred here. Patient is currently having dressing changes performed at the [facility]. She has an open right breast [...] did wound start?: 08/2022 Mode of Arrival/ Manager Organizational: Personal vehicle Lives with:: Alone Appetite Description: [...] injection solution 1,000 mcg IM QMONTH 05/17/23 [HistoryConfirmed 12/07/23] Allergies Penicillins Adverse Reaction (Verified 05/17/23 10:29) Hives Sulfa (Sulfonamide Antibiotics) Adverse Reaction (Verified 05/17/23 10:29) Hives Wound/Ulcer Right Breast: Bed Appearance: Beefy Red, Devitalized, Argos and Yellow Percent of Wound Bed Granulated/Red: 60 Percent of Devitalized: 40 Length (cm): 1.0 Width (cm): 2 Depth (cm): 0.9 CM Sq: 2.000 Surrounding Tissue Appearance: Argos Surrounding Tissue Temp: Warm Drainage Amount: Small [...] by MD Luis Angel Saucedo> 07/17/[address] [facility] Work Phone: [phone] 463-602502-05-2024 Evaluation note* Encounter Date Diagnosis Assessment Notes Treatment Notes Treatment Clinical Notes Jul, ASHD (arteriosclerotic heart dis ease) (ICD-10 - I25.10) This patient is stable without activity related CP, dyspnea or lightheadedness. They are instructedto continue exercise and AHA diet plan. Continue secondary prevention measures. Jul,Stage 3a chronic kidney disease (ICD-10 - N18.31)The patient is instructed on adequate control of hypertension and diabetes, if appropriate. They are also educated on the associated risks of NSAIDs and PPI use with kidney disease. They were instructed on adequate fluid balance and to avoid dehydration. Jul,rimary hypertension (ICD-10 - I10)This patient is instructed to consume a healthy, low-fat, low-salt diet. They are also encouraged to continue exercise to achieve/maintain a normal BMI. Jul,hronic venous insufficiency (ICD-10 - I87.2)Avoid salt and elevate lower extremities, support stockings, inspect legs and feet daily for blisters and ulcerations. Jul,Hyperlipidemia type II (ICD-10 - E78.01)Instructed on diet and exercise with continued statin therapy.Discussed the beneficial effects of lo wering cholesterol in reducing the risk for cerebrovascular and cardiovascular disease. 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 UTD w/ vaccinations. Suggest receiving UTD boosters for COVID Holding on RSV this year. Jul,Nicotine dependence, cigarettes, in remission (ICD-10 - F17.211) Continue abstinence. Not a candidate for yearly LDCT [facility] Other 01-24-2024 Evaluation note* Encounter Date Diagnosis Assessment Notes Treatment Notes Treatment Clinical Notes Jun, Pernicious anemia (ICD-10 - D51. 0) [facility] Other 01-23-2024 Progress note Author Luis Angel Saucedo [facility] July 03, 2023 12:04pmNote Date/TimeJan2023 12:04pm[place] [address] Wound Center Provider Note Signed Patient: Nora Gibbs MR#: [id number] : 1940 Acct:[id number] Age/Sex: 83 / F Copies to: MD [...] hematoma. She did see her surgeon in [place] who did her previous surgery. Patient had some punch biopsies performed to rule out cancer which apparently did not show any cancer. She did develop nonhealing wound at this site. She underwent a couple debridements and closures in [place] but each time, the wound did open up and start draining. The last debridement was last month. The surgeon who did her previous surgerieshas since left and the patient did see Dr. Kurtz last week. He did remove some remaining sutures and the patient wasthen referred here. Patient is currently having dressing changes performed at the [facility] infusion center. She has an open [...] did wound start?: 08/2022 Mode of Arrival/ Manager Organizational: Personal vehicle Lives with:: Alone Appetite Description: Within Normal Limits Who helps w/ dressing change?: Infusion Center and Wound Care Dept Why Do You Need Help?: Can't Reach Ulcer Smoking Status: Former smoker Constitutional Constitutional: Denies fever(s) Integumentary/Breasts Skin/Breast: Reports wounds [facility] Medical History CAD (coronary [...] injection solution 1,000 mcg IM QMONTH 05/17/23 [HistoryConfirmed 05/17/23] Allergies Penicillins Adverse Reaction (Verified 05/17/23 10:29) Hives Sulfa (Sulfonamide Antibiotics) Adverse Reaction (Verified 05/17/23 10:29) Hives Wound/Ulcer Right Breast: Bed Appearance: Beefy Red, Devitalized, Argos and Yellow Percent of Wound Bed Granulated/Red: 10 Percent of Devitalized: 90 Length (cm): 0.8 Width (cm): 2 Depth (cm): 1 CM Sq: 1.600 Surrounding Tissue Appearance: Argos Surrounding Tissue Temp: Warm Drainage Amount: Small [...] by MD Luis Angel Saucedo> 07/03/23 1204 [facility] Work Phone: 1(806) 647-288101-02-2024 Progress note Author Luis Angel Saucedo [facility] June 12, 2023 9:26amNote Date/TimeJan2023 9:26am[place] [address] Wound Center Provider Note Signed Patient: Nora Gibbs MR#: [id number] : 1940 Acct:[id number] Age/Sex: 83 / F Copies to: MD Noble West DO~ HPI Date of Visit Date of Visit: Date of Service: 06/12/2023 Time of Service: 09:23 Narrative HPI: Patient is status post debridement of her right breast wound. Pathology showed chronic wound changes. No mention of malignancy. Cultures grew normal skin aries. There was an anaerobe identified and that has been [facility]. Patient was started on negative pressure [...] hematoma. She did see her surgeon in [place] who did her previous surgery. Patient had some punch biopsies performed to rule out cancer which apparently did not show any cancer. She did develop nonhealing wound at this site. She underwent a couple debridements and closures in [place] but each time, the wound did open up and start draining. The last debridement was last month. The surgeon who did her previous surgerieshas since left and the patient did see Dr. Kurtz last week. He did remove some remaining sutures and the patient wasthen referred here. Patient is currently having dressing changes performed at the [facility] infusion center. She has an open [...] did wound start?: 08/2022 Mode of Arrival/ Manager Organizational: Personal vehicle Lives with:: Alone Appetite Description: [...] injection solution 1,000 mcg IM QMONTH 05/17/23 [HistoryConfirmed 05/17/23] Allergies Penicillins Adverse Reaction (Verified 05/17/23 10:29) Hives Sulfa (Sulfonamide Antibiotics) Adverse Reaction (Verified 05/17/23 10:29) Hives Wound/Ulcer Right Breast: Bed Appearance: Argos and Yellow Percent of Wound Bed Granulated/Red: 10 Percent of Devitalized: 90 Length (cm): 1.2 Width (cm): 2.9 Depth (cm): 2.5 CM Sq: 3.480 Surrounding Tissue Appearance: Argos Surrounding Tissue Temp: Warm Drainage Amount: Small [...] signed by MD Luis Angel Saucedo> 06/12/[address] [facility] Work Phone: 1([phone]) [phone] Evaluation note* Encounter Date Diagnosis Assessment Notes Treatment Notes Treatment Clinical Notes May, Pernicious anemia (ICD-10 - D51. 0) [facility] Other 12-18-2023 Hospital Discharge instructions Additional Instructions Initiate negative pressure wound therapy using black foam at 125 mmHg continuous. Change 3 times a week. In the meantime, perform dressing changes daily. Remove packing, irrigate with saline/Vashe and repack with saline moistened 4 x 4 gauze and cover with dry dressing.[facility] Work Phone: 1([phone]) 238-165012-05-2023 Progress note Author Luis Angel Saucedo [facility] May 15, 2023 9:57amNote Date/TimeDece2022 9:57am[place] [address] Wound Center Provider Note Signed Patient: Nora Gibbs MR#: [id number] : 1940 Acct:[id number] Age/Sex: 83 / F Copies to: MD [...] hematoma. She did see her surgeon in [place] who did her previous surgery. Patient had some punch biopsies performed to rule out cancer which apparently did not show any cancer. She did develop nonhealing wound at this site. She underwent a couple debridements and closures in [place] but each time, the wound did open up and start draining. The last debridement was last month. The surgeon who did her previous surgerieshas since left and the patient did see Dr. Kurtz last week. He did remove some remaining sutures and the patient wasthen referred here. Patient is currently having dressing changes performed at the [facility]. She has an open right breast [...] did wound start?: 08/2022 Mode of Arrival/ Manager Organizational: Personal vehicle Lives with:: Alone Appetite Description: [...] by MD Luis Angel Saucedo> 05/15/23 0957 [facility] Work Phone: 1([phone]) [phone] Evaluation note* Encounter Date Diagnosis Assessment Notes Treatment Notes Treatment Clinical Notes Apr, Pernicious anemia (ICD-10 - D51. 0) [facility] Other 11-14-2023 Progress note Author Luis Angel Saucedo [facility] April 24, 2023 11:12amNote Date/TimeNov2022 10:46[place] [address] Wound Center Provider Note Signed Patient: Nora Gibbs MR#: [id number] : 1940 Acct:[id number] Age/Sex: 83 / F Copies to: MD [...] hematoma. She did see her surgeon in [place] who did her previous surgery. Patient had some punch biopsies performed to rule out cancer which apparently did not show any cancer. She did develop nonhealing wound at this site. She underwent a couple debridements and closures in [place] but each time, the wound did open up and start draining. The last debridement was last month. The surgeon who did her previous surgerieshas since left and the patient did see Dr. Kurtz last week. He did remove some remaining sutures and the patient wasthen referred here. Patient is currently having dressing changes performed at the [facility] infusion center. She has an open [...] did wound start?: 08/2022 Mode of Arrival/ Manager Organizational: Personal vehicle Lives with:: Alone Appetite Description: [...] Breast: Bed Appearance: Epithelial Tissue or Bridge, Argos and Yellow Percent of Wound Bed Granulated/Red: [...] be done daily. Patient goes to the [facility] center for this. Patient follow-up here [...] by MD Luis Angel Saucedo> 04/24/[address] [facility] Work Phone: 1([phone]) 130-371010-03-2023 Evaluation note* Encounter Date Diagnosis Assessment Notes [...] reviewed and amended by provider signed below. Mar,SHD (arteriosclerotic heart disease) (ICD-10 - I25.10)This patient is stable without activity related CP, dyspnea or lightheadedness. They are instructedto continue exercise and AHA diet plan. Continue secondary prevention measures. Mar,rimary hypertension (ICD-10 - I10)This patient is instructed to consume a healthy, low-fat, low-salt diet. They are also encouraged to continue exercise to achieve/maintain a normal BMI. Mar,Stage 3a chronic kidney disease (ICD-10 - N18.31)The patient is instructed on adequate control of hypertension and diabetes, if appropriate. They are also educated on the associated risks of NSAIDs and PPI use with kidney disease. They were instructed on adequate fluid balance and to avoid dehydration. Mar,hronic bronchitis, mucopurulent (ICD-10 - J41.1)Stable w/o recent visits for ER for AECOPD - rarely using rescue inhaler - continue triple therapy Mar,Hyperlipidemia type II (ICD-10 - E78.01)Instructed on diet and exercise with continued statin therapy.Discussed the beneficial effects of lo wering cholesterol in reducing the risk for cerebrovascular and cardiovascular disease. Mar,hronic venous insufficiency (ICD-10 - I87.2)Avoid salt and elevate lower extremities, support stockings, inspect legs and feet daily for blisters and ulcerations. 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 [facility] Other 09-07-2023 Evaluation note* Encounter Date Diagnosis Assessment Notes Treatment Notes Treatment Clinical Notes Feb, Pernicious anemia (ICD-10 - D51. 0) [facility] Other 08-09-2023 Evaluation note* Encounter Date Diagnosis Assessment Notes Treatment Notes Treatment Clinical Notes Jan, Lower extremity edema (ICD-10 - R60.0) Jan,SHD (arteriosclerotic heart disease) (ICD-10 - I25.10) Jan,OE (dyspnea on exertion) (ICD-10 - R06.09) [facility] Other 08-07-2023 Evaluation note* Encounter Date Diagnosis Assessment Notes Treatment Notes Treatment Clinical Notes Jan, Pernicious anemia (ICD-10 - D51. 0) [facility] Other 07-25-2023 Evaluation note* Encounter Date Diagnosis Assessment Notes Treatment Notes Treatment Clinical Notes Dec, Lower extremity edema (ICD-10 - R60.0) [facility] Other 07-18-2023 Evaluation note* Encounter Date Diagnosis Assessment Notes Treatment Notes Treatment Clinical Notes Dec, Lower extremity edema (ICD-10 - R60.0) [facility] Other 07-17-2023 Evaluation note* Encounter Date Diagnosis Assessment Notes Treatment Notes Treatment Clinical Notes Dec, Lower extremity edema (ICD-10 - R60.0) Avoid salt and elevate lower extremities, support stockings, inspect legs and feet daily for blisters and ulcerations. Discussed contributing factors: - medication: Amlodipine, NTG - systemic illness: hypothyroid, B12 deficiency - RHF/pulmonary HTN: COPD, ELPIDIO, LVD - CVI - CKD/nephrosis Dec,Stage 3b chronic kidney disease (ICD-10 - N18.32)The patient is instructed on adequate control of hypertension and diabetes, if appropriate. They are also educated on the associated risks of NSAIDs and PPI use with kidney disease. They were instructed on adequate fluid balance and to avoid dehydration. Dec,SHD (arteriosclerotic heart disease) (ICD-10 - I25.10)This patient is stable without activity related CP, dyspnea or lightheadedness. They are instructedto continue exercise and AHA diet plan. Dec,hronic bronchitis, mucopurulent (ICD-10 - J41.1)Continue triple therapy No ER visits for AE TUAN as needed Dec,ysesthesia (ICD-10 - R20.8)B12, Fe deficiency RLS? 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 They are also encouraged to continue exercise to achieve/maintain a normal BMI. Amlodipine/NTG as contributing factors Dec,Elevated d-dimer (ICD-10 - R79.89) [facility] Other 07-06-2023 Evaluation note* Encounter Date Diagnosis Assessment Notes Treatment Notes Treatment Clinical Notes Dec, Pernicious anemia (ICD-10 - D51. 0) [facility] Other 06-05-2023 Evaluation note* Encounter Date Diagnosis Assessment Notes Treatment Notes Treatment Clinical Notes Nov, Pernicious anemia (ICD-10 - D51. 0) [facility] Other 05-04-2023 Evaluation note* Encounter Date Diagnosis Assessment Notes Treatment Notes Treatment Clinical Notes October, Pernicious anemia (ICD-10 - D51. 0) [facility] Other 04-19-2023 Evaluation note* Encounter Date Diagnosis Assessment Notes Treatment Notes Treatment Clinical Notes Sep, Chronic bronchitis, mucopurulent (ICD-10 - J41.1) Continue triple therapy. TUAN as needed. No ER visits since previous OV Increase activity as tolerated Sep,SHD (arteriosclerotic heart disease) (ICD-10 - I25.10)This patient is stable without activity related CP, dyspnea or lightheadedness. They are instructedto continue exercise and AHA diet plan. Sep,Essential hypertension (ICD-10 - I10)This patient is instructed to consume a healthy, low-fat, low-salt diet. They are also encouraged to continue exercise to achieve/maintain a normal BMI. Sep,Hyperlipidemia type II (ICD-10 - E78.01)Diet and exercise with continued statin therapy. 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 0) [facility] Other 03-09-2023 Evaluation note* Encounter Date Diagnosis Assessment Notes Treatment Notes Treatment Clinical Notes Aug, Local infection of t he skin and subcutaneous tissue, unspecified (ICD-10 - L08.9) Aug,Other injury of unspecified body region, initial encounter (ICD-10 - T14.8XXA) [facility] Other 03-09-2023 Evaluation note* Encounter Date Diagnosis Assessment Notes Treatment Notes Treatment Clinical Notes Aug, 2022 Cellulitis of female breast (ICD -10 - N61.0) Aug, reast abscess of female (ICD-10 - N61.1)Warm compresses, continue antibiotic coverage. Schedule breast US Refer to Surgery Aug, 2022Hx of breast cancer (ICD-10 - Z85.3) [facility] Other 03-02-2023 Evaluation note* Encounter Date Diagnosis Assessment Notes Treatment Notes Treatment Clinical Notes Aug, Cyst of right breast (ICD-10 - N 60.01) After short treatment for possible infection, will schedule for breast US Aug, ellulitis of female breast (ICD-10 - N61.0)WArm compresses and antibiotics. Call w/ update in week Aug, ernicious anemia (ICD-10 - D51.0) Aug, 2022Hx of breast cancer (ICD-10 - Z85.3) [facility] Other 01-31-2023 Evaluation note* Encounter Date Diagnosis Assessment Notes Treatment Notes Treatment Clinical Notes Jun, Pernicious anemia (ICD-10 - D51. 0) [facility] Other 05-11-2022 History of Present illness Narrative* Genny Winters PA-C - 10/19/2021 1:30 PM EDT [id number] ATTENDING PHYSICIAN: Stephen Caballero MD DATE OF SERVICE: October 19, 2021 (Elements copied from Dr. Caballero's note dated October 19, 2020, have been reviewed and updated where appropriate, and all reflect current assessment and medical decision making during today's encounter, October 19, 2021) CC: Follow up Diagnosis: 1. Right breast cancer, invasive lobular carcinoma, HER-2/suresh negative ER and AL strongly positive at 95%, diagnosed 2014 Treatment History: 1. Lumpectomy plus sentinel lymph node biopsy October 28, 2014. Invasive lobular carcinoma, 2.2 cm. 2 sentinel lymph nodes negative for involvement. ER AL 95% positive, HER-2/suresh negative. 2. Right breast [...] Date Arthritis Breast cancer (HCC) Right; T2N0M0; ER/AL+ HER2 COPD (chronic obstructive pulmonary disease) (HCC) [...] 2.2 cm, invasive lobular carcinoma, ER and AL 95% positive, HER-2/suresh negative status post lumpectomy [...] CC: Noble Hayes MD documented in this encounterOhio [facility] Hospital04-14-2022 Miscellaneous Notes* Telephone Encounter - Stephen Caballero MD - 09/22/2021 1:41 PM EDT Screening is fine. She is 7 years out * Telephone Encounter - Adalgisa Beck RN - 09/22/2021 12:14 PM EDT Patient is scheduled for a screening mammogram on 10/09/21 at [facility]. The diagnosis of malignant neoplasm will not work for a screening mammogram. Patient is 7 years from diagnosis. Would you like to continue with a screening mamm and change the diagnosis to personal history of breast cancer or change the order to a diagnostic mamm? Thanks Sierra Beck RN documented in this encounterOhio State Harding HospitalDischarge summary Author Jim Clay [facility] December 01, 2023 3:07pmNote Date/TimeJune 2023 3:07pm[place] [address] Discharge Summary Signed Patient: Nora Gibbs MR#: [id number] : 1940 Acct:[id number] Age/Sex: 83 / F Adm Date: 4 Loc: 3T Room: [address] [place] [address]: Jim Clay DO Copies to: [...] Troponins were negative on admission, EKG was withoutany signs of injury ischemia or infarction hide patient does have a significant history positive for CAD status post stents in 2018, she is scheduled for an echocardiogram and stress test thisupcoming week with her dairy husbandry teacher in [place]. She was self admitted to hospital for [...] is currently on lisinopril and Imdur for bloodpressure, I did add spironolactone 25 mg daily and low-dose metoprolol 12.5 mg daily. The patient was instructed to see her dairy husbandry teacher this upcoming week for her stress test [...] Blister With Device 1 inh INHALATION DAILY rcnrmj-kucxpezm-nri C-E-herbal 1,250 mcg-50 mg -67.5 mg-15 mg [...] Neut % (Auto) 62.6, Lymph % (Auto) 22.3,Robertson % (Auto) 11.5, Eos % (Auto) 2.8, Baso % (Auto) 0.8, Nucleat RBC Rel Count 0.1, Neut # (Auto) 4.0, Lymph # (Auto) 1.4, Robertson # (Auto) 0.7, Eos # (Auto) 0.2, Baso # (Auto) 0.0, PHA Creatinine Clear47.06, Sodium 142, Potassium 4.3, Chloride 112 H, Carbon Dioxide 22.8, Anion Gap 11.5, BUN 21, Creatinine 0.84, Est GFR (CKD-EPI) > 60.0, Glucose 100, Estimat Average Glucose 137, Hemoglobin A1c 6.4 H, Calcium 8.7, Magnesium 1.7 L,Troponin I High Sens 9.5, Triglycerides 171 H, Cholesterol 109 L,LDL Cholesterol, Calc 37, VLDL Cholesterol 34, HDL Cholesterol 38, Cholesterol/HDL Ratio 2.9 11/30/23 15:36: Troponin I High Sens 15.3 H Documented By: Jim Clay DO 12/01/23 1504 Signed By: <Electronically signed by Jim Clay DO> 12/01/23 1501 [facility] Work Phone: Evaluation note* Diagnosis Encounter for screening mammogram for malignant neoplasm of breast- Primary Other screening mammogram documented in this encounter [facility] HospitalEvaluation noteNo [facility] Other Evaluation note* Diagnosis Onset Date Resolution Status History of breast cancer acuteHistory of radiation exposureacuteNonhealing surgical woundacute [facility] Work Phone: Evaluation note* Diagnosis Onset Date Resolution Status Essential hypertension acuteCerumen impactionnoneactiveHistory of breast canceracuteHistory of radiation exposureacuteNonhealing surgical woundacute [facility] Work Phone: Evaluation note* Diagnosis Onset Date Resolution Status History of breast cancer acuteHistory of radiation exposureacuteNonhealing surgical woundacuteASHD (arteriosclerotic heart disease)acuteChronic bronchitisacuteEdemaacuteEssential hypertensionacuteHistory of breast canceracuteHypothyroidismacutePernicious anemiaacuteStage 3a chronic kidney diseaseacute [facility] Work Phone: Evaluation note* Diagnosis Onset Date Resolution Status ASHD (arteriosclerotic heart disease) acuteChronic bronchitisacuteEssential hypertensionacuteHistory of breast cancer acuteHypothyroidismacuteLower extremity edemaacutePernicious anemiaacuteStage 3a chronic kidney diseaseacuteChest painacuteEssential hypertensionacute [facility] Work Phone: Evaluation note* Diagnosis Onset Date Resolution Status ASHD (arteriosclerotic heart disease) acuteChronic bronchitisacuteEssential hypertensionacuteHistory of breast cancer acuteHypothyroidismacuteLower extremity edemaacutePernicious anemiaacuteStage 3a chronic kidney diseaseacuteChest painacuteEssential hypertensionacuteLower extremity edemaacute [facility] Work Phone: Evaluation note* Diagnosis Onset Date Resolution Status ASHD (arteriosclerotic heart disease) acuteChronic bronchitisacuteEssential hypertensionacuteHistory of breast cancer acuteHypothyroidismacuteLower extremity edemaacutePernicious anemiaacuteStage 3a chronic kidney diseaseacuteChest painacuteEssential hypertensionacuteLower extremity edemaacuteASHD (arteriosclerotic heart disease)acuteChronic bronchitis acuteEssential hypertensionacuteLower extremity edemaacuteStage 3a chronic kidney diseaseacute [facility] Work Phone: Evaluation note* Diagnosis Onset Date Resolution Status (HFpEF) heart failure with preserved eje ction fraction acuteASHD (arteriosclerotic heart disease)acuteChronic bronchitisacute HypothyroidismacuteNicotine dependence, cigarettes, in remissionacuteObesity acuteStage 3a chronic kidney diseaseacute [facility] Work Phone: History general Narrative - Reported* Type Description Date Medical History high blood pressure Medical Historythyroid diseaseMedical Historyheart diseaseMedical Historyacid refluxMedical HistoryCOPDMedical HistoryBasal cell carcinoma of faceMedical HistoryHx of breast cancerMedical HistoryNicotine dependence, cigarettes, in remissionMedical HistoryEssential hypertensionMedical HistoryHyperlipidemia type IIMedical HistoryGastroesophageal reflux disease with esophagitis without hemorrhageMedical HistoryAutoimmune hypothyroidismMedical HistoryChronic bronchitis, mucopurulentMedical HistoryASHD (arteriosclerotic heart disease) Medical HistoryDe Quervain's tenosynovitisMedical HistoryPerirectal abscess Medical HistoryNecrotizing fasciitisMedical HistoryLumbar spondylosisMedical HistoryRight carotid bruitMedical HistoryInsomniaMedical HistoryPolyuriaMedical HistoryBreast cancer, rightSurgical Historytonsillectomy and adenoidectomy Surgical HistoryHYSTERECTOMYSurgical Historyheart stentSurgical HistoryD&C Surgical Historyshoulder arthroscopySurgical Historycervical biopsySurgical HistorylaminectomySurgical HistorybiopsySurgical HistorycataractSurgical History knee arthroscopySurgical Historyright hip replacementSurgical HistorySHOT IN LEFT KNEESurgical HistoryREMOVAL OF NAIL BED RIGHT TOESurgical Historyknee replacementSurgical Historyovarian cystSurgical HistorycolonoscopySurgical Historybreast cancerSurgical Historycolon resectionSurgical Historyleft hip replacementSurgical HistoryBasal cell skin cancerHospitalization HistorySEE ABOVE [facility] Other History general Narrative - Reported* Type Description Date Medical History high blood pressure Medical Historythyroid diseaseMedical Historyheart diseaseMedical Historyacid refluxMedical HistoryCOPDMedical HistoryBasal cell carcinoma of faceMedical HistoryHx of breast cancerMedical HistoryNicotine dependence, cigarettes, in remissionMedical HistoryEssential hypertensionMedical HistoryHyperlipidemia type IIMedical HistoryGastroesophageal reflux disease with esophagitis without hemorrhageMedical HistoryAutoimmune hypothyroidismMedical HistoryChronic bronchitis, mucopurulentMedical HistoryASHD (arteriosclerotic heart disease) Medical HistoryDe Quervain's tenosynovitisMedical HistoryPerirectal abscess Medical HistoryNecrotizing fasciitisMedical HistoryLumbar spondylosisMedical HistoryRight carotid bruitMedical HistoryInsomniaMedical HistoryPolyuriaMedical HistoryBreast cancer, rightSurgical Historytonsillectomy and adenoidectomy Surgical HistoryHYSTERECTOMYSurgical Historyheart stentSurgical HistoryD&C Surgical Historyshoulder arthroscopySurgical Historycervical biopsySurgical HistorylaminectomySurgical HistorybiopsySurgical HistorycataractSurgical History knee arthroscopySurgical Historyright hip replacementSurgical HistorySHOT IN LEFT KNEESurgical HistoryREMOVAL OF NAIL BED RIGHT TOESurgical Historyknee replacementSurgical Historyovarian cystSurgical HistorycolonoscopySurgical Historybreast cancerSurgical Historycolon resectionSurgical Historyleft hip replacementSurgical HistoryBasal cell skin cancerHospitalization HistorySEE ABOVEHospitalization HistorySEE ABOVE [facility] [employer] Other History general Narrative - ReportedNoP[facility] [employer] Other History general Narrative - Reported* Type Description Date Medical History high blood pressure Medical Historythyroid diseaseMedical Historyheart diseaseMedical Historyacid refluxMedical HistoryCOPDMedical HistoryBasal cell carcinoma of faceMedical HistoryHx of breast cancerMedical HistoryNicotine dependence, cigarettes, in remissionMedical HistoryEssential hypertensionMedical HistoryHyperlipidemia type IIMedical HistoryGastroesophageal reflux disease with esophagitis without hemorrhageMedical HistoryAutoimmune hypothyroidismMedical HistoryChronic bronchitis, mucopurulentMedical HistoryASHD (arteriosclerotic heart disease) Medical HistoryDe Quervain's tenosynovitisMedical HistoryPerirectal abscess Medical HistoryNecrotizing fasciitisMedical HistoryLumbar spondylosisMedical HistoryRight carotid bruitMedical HistoryInsomniaMedical HistoryPolyuriaMedical HistoryBreast cancer, rightSurgical Historytonsillectomy and adenoidectomy Surgical HistoryHYSTERECTOMYSurgical HistoryLHC, PCI/stent [id number] HistoryD&CSurgical Historyshoulder arthroscopySurgical Historycervical biopsy Surgical HistorylaminectomySurgical HistorybiopsySurgical Historycataract Surgical Historyknee arthroscopySurgical Historyright hip replacementSurgical HistorySHOT IN LEFT KNEESurgical HistoryREMOVAL OF NAIL BED RIGHT TOESurgical Historyknee replacementSurgical Historyovarian cystSurgical Historycolonoscopy Surgical Historybreast cancerSurgical Historycolon resectionSurgical Historyleft hip replacementSurgical HistoryBasal cell skin cancerHospitalization HistorySEE ABOVE [facility] Other History general Narrative - Reported* Type Description Date Medical History high blood pressure Medical Historythyroid diseaseMedical Historyheart diseaseMedical Historyacid refluxMedical HistoryCOPDMedical HistoryBasal cell carcinoma of faceMedical HistoryHx of breast cancerMedical HistoryNicotine dependence, cigarettes, in remissionMedical HistoryEssential hypertensionMedical HistoryHyperlipidemia type IIMedical HistoryGastroesophageal reflux disease with esophagitis without hemorrhageMedical HistoryAutoimmune hypothyroidismMedical HistoryChronic bronchitis, mucopurulentMedical HistoryASHD (arteriosclerotic heart disease) Medical HistoryDe Quervain's tenosynovitisMedical HistoryPerirectal abscess Medical HistoryNecrotizing fasciitisMedical HistoryLumbar spondylosisMedical HistoryRight carotid bruitMedical HistoryInsomniaMedical HistoryPolyuriaMedical HistoryBreast cancer, rightSurgical Historytonsillectomy and adenoidectomy Surgical HistoryHYSTERECTOMYSurgical HistoryLHC, PCI/stent [id number] HistoryD&CSurgical Historyshoulder arthroscopySurgical Historycervical biopsy Surgical HistorylaminectomySurgical HistorybiopsySurgical Historycataract Surgical Historyknee arthroscopySurgical Historyright hip replacementSurgical HistorySHOT IN LEFT KNEESurgical HistoryREMOVAL OF NAIL BED RIGHT TOESurgical Historyknee replacementSurgical Historyovarian cystSurgical Historycolonoscopy Surgical Historybreast cancerSurgical Historycolon resectionSurgical Historyleft hip replacementSurgical HistoryBasal cell skin cancerSurgical HistoryDebridement right breast ulceration01/2023Hospitalization HistorySEE ABOVE [facility] Other History general Narrative - Reported* Type Description Date Medical History high blood pressure Medical Historythyroid diseaseMedical Historyheart diseaseMedical Historyacid refluxMedical HistoryCOPDMedical HistoryBasal cell carcinoma of faceMedical HistoryHx of breast cancerMedical HistoryNicotine dependence, cigarettes, in remissionMedical HistoryEssential hypertensionMedical HistoryHyperlipidemia type IIMedical HistoryGastroesophageal reflux disease with esophagitis without hemorrhageMedical HistoryAutoimmune hypothyroidismMedical HistoryChronic bronchitis, mucopurulentMedical HistoryASHD (arteriosclerotic heart disease) Medical HistoryDe Quervain's tenosynovitisMedical HistoryPerirectal abscess Medical HistoryNecrotizing fasciitisMedical HistoryLumbar spondylosisMedical HistoryRight carotid bruitMedical HistoryInsomniaMedical HistoryPolyuriaMedical HistoryBreast cancer, rightSurgical Historytonsillectomy and adenoidectomy Surgical HistoryHYSTERECTOMYSurgical HistoryLHC, PCI/stent [id number] HistoryD&CSurgical Historyshoulder arthroscopySurgical Historycervical biopsy Surgical HistorylaminectomySurgical HistorybiopsySurgical Historycataract Surgical Historyknee arthroscopySurgical Historyright hip replacementSurgical HistorySHOT IN LEFT KNEESurgical HistoryREMOVAL OF NAIL BED RIGHT TOESurgical Historyknee replacementSurgical Historyovarian cystSurgical Historycolonoscopy Surgical Historybreast cancerSurgical Historycolon resectionSurgical Historyleft hip replacementSurgical HistoryBasal cell skin cancerSurgical HistoryDebridement right breast ulceration01/2023Surgical HistoryDebridement right breast ulceration 05/2023Hospitalization HistorySEE ABOVE [facility] Other Progress note Author Luis Angel Saucedo [facility] August 28, 2023 9:48amNote Date/TimeMarch 2023 9:48am[place] [address] Wound Center Provider Note Signed Patient: Nora Gibbs MR#: [id number] : 1940 Acct:[id number] Age/Sex: 83 / F Copies to: MD [...] hematoma. She did see her surgeon in [place] who did her previous surgery. Patient had some punch biopsies performed to rule out cancer which apparently did not show any cancer. She did develop nonhealing wound at this site. She underwent a couple debridements and closures in [place] but each time, the wound did open up and start draining. The last debridement was last month. The surgeon who did her previous surgerieshas since left and the patient did see Dr. Kurtz last week. He did remove some remaining sutures and the patient wasthen referred here. Patient is currently having dressing changes performed at the [facility]. She has an open right breast [...] did wound start?: 08/2022 Mode of Arrival/ Manager Organizational: Personal vehicle Lives with:: Alone Appetite Description: [...] injection solution 1,000 mcg IM QMONTH 05/17/23 [HistoryConfirmed 08/28/23] temazepam 30 mg capsule 30 mg [...] 0 CM Sq: 0.000 Surrounding Tissue Appearance: [place] Surrounding Tissue Temp: Warm Drainage Amount: None [...] concerned about wound healing problems if she hudson d any more surgery to the area. However, if the patient does develop problems such as recurrent infections of the area, we can discuss this. Otherwise, patient will be discharged from the office and continue to follow with her other physicians. See Instructions for Orders See Instructions for Orders See Wound Discharge Instructions for Orders: Dictated By: LuisA ngel Saucedo MD DD/ [id number] Signed By: <Electronically signed by MD Luis Angel Saucedo> 08/28/[address] [facility] Work Phone: Reason for referral (narrative)* Diagnostic Procedure Only (Routine) - Pending ReviewSpecialtyDiagnoses / ProceduresReferred By ContactReferred To ContactBR IMAGING Diagnoses Encounter for screening mammogram for malignant neoplasm of breast Procedures KAREN SCREENING SCREENING MAMMOGRAPHY BI 2-VIEW BREAST INC Genny Pitts, LASHAY [address] [place] [address] [place] [address] [facility] [address] [place] [address] Referral IDStatusReasonStart DateExpiration DateVisits RequestedVisits [id number] Auto-Generated Referral / [facility] HospitalReason for referral (narrative)* Reason *FU 09/04 Referral for right breast abscess Diagnosis 1 Breast abscess of fe male (N61.1) Referral Organization [facility] roma Referring Provider First Name Noble Referring Provider Last Name Abigail Referring Provider Specialty Internal Me brooks Referred Organization Unknown Facility Referred Provider Checo Reis Referred Provider Specialty Surgery Referral Priority Routine General Notes Kelly Gilbert 01:34:05 PM >received today, notes locked, and referral faxed Kelly Gilbert 08/28/2022 12:05:49 PM >FAXED FIRST ATTEMPT LETTERClinical NotesPhone: . . [facility] Other Reason for referral (narrative)No reason for referral information availableTwin City Hospital Work Phone: Summary Purpose Family History Relationship Condition Age at Onset Recorded Date/T nithin father Myocardial infarction Unknown sisterMalignant neoplasmUnknown Relationship Condition Age at Onset Recorded Date/T nithin father Myocardial infarction Unknown sisterMalignant neoplasmUnknownfatherDeceasedUnknownNot SpecifiedDeceasedUnknown Relationship Condition Age at Onset Recorded Date/T nithin father Myocardial infarction Unknown sisterMalignant neoplasmUnknownfatherDeceasedUnknownmotherDeceasedUnknown Advance Directives Advance Directive Response Recorded Date/ Time Advance Directives No November 26 7:48am Advance Directive Response Recorded Date/ Time Advance Directives No November 26 8:48am Chief Complaint and Reason for Visit Chief Complaint Open Wound - post op Right Breast WoundReason for VisitHistory of breast cancer History of radiation exposure Nonhealing surgical wound Chief Complaint Open Wound - post op Right Breast Wound Right Breast WoundReason for VisitHistory of breast cancer History of radiation exposure Nonhealing surgical wound Chief Complaint Amb Documentation B-12 SHOT ear [place] Open WoundReason for VisitEssential hypertension Cerumen impaction History of breast cancer History of radiation exposure Nonhealing surgical wound Chief Complaint Amb Documentation B-12 SHOT ear [place] Open Wound [id number] for VisitEssential hypertension Cerumen impaction History of breast cancer History of radiation exposure Nonhealing surgical wound Chief Complaint Amb Documentation B-12 SHOT ear [place] Open Wound b12 [id number] for VisitEssential hypertension Cerumen impaction History of breast cancer History of radiation exposure Nonhealing surgical wound Chief Complaint ear flushing Open Wound b12 b12 B12 shotReason for VisitEssential hypertension Cerumen impaction History of breast cancer History of radiation exposure Nonhealing surgical wound Chief Complaint Open Wound b12 b12 B12 shot 4 month follow upReason for VisitHistory of breast cancer History of radiation exposure Nonhealing surgical wound ASHD (arteriosclerotic heart disease) Chronic bronchitis Edema Essential hypertension History of breast cancer Hypothyroidism Pernicious anemia Stage 3a chronic kidney disease Chief Complaint b12 b12 B12 shot 4 month follow up Chest PainReason for VisitASHD (arteriosclerotic heart disease) Chronic bronchitis Essential hypertension History of breast cancer Hypothyroidism Lower extremity edema Pernicious anemia Stage 3a chronic kidney disease Chest pain Essential hypertension Chief Complaint b12 b12 B12 shot 4 month follow up Chest PainReason for VisitASHD (arteriosclerotic heart disease) Chronic bronchitis Essential hypertension History of breast cancer Hypothyroidism Lower extremity edema Pernicious anemia Stage 3a chronic kidney disease Chest pain Essential hypertension Lower extremity edema Chief Complaint b12 B12 shot 4 month follow up Chest Pain Amb Documentation ER follow upReason for VisitASHD (arteriosclerotic heart disease) Chronic bronchitis Essential hypertension History of breast cancer Hypothyroidism Lower extremity edema Pernicious anemia Stage 3a chronic kidney disease Chest pain Essential hypertension Lower extremity edema ASHD (arteriosclerotic heart disease) Chronic bronchitis Essential hypertension Lower extremity edema Stage 3a chronic kidney disease Chief Complaint b12 B12 shot 4 month follow up Chest Pain Amb Documentation ER follow up b12 ShotReason for VisitASHD (arteriosclerotic heart disease) Chronic bronchitis History of breast cancer Hypothyroidism Pernicious anemia Stage 3a chronic kidney disease Chest pain Acute on chronic heart failure with preserved ejection fraction (HFpEF) ASHD (arteriosclerotic heart disease) Stage 3a chronic kidney disease Chest pain Chief Complaint B12 shot 4 month follow up Chest Pain Amb Documentation ER follow up b12 Shot B12 ShotReason for VisitASHD (arteriosclerotic heart disease) Chronic bronchitis History of breast cancer Hypothyroidism Pernicious anemia Stage 3a chronic kidney disease Chest pain Acute on chronic heart failure with preserved ejection fraction (HFpEF) ASHD (arteriosclerotic heart disease) Stage 3a chronic kidney disease Chest pain Chief Complaint 4 month follow up Chest Pain Amb Documentation ER follow up b12 Shot B12 Shot B12 ShotReason for VisitASHD (arteriosclerotic heart disease) Chronic bronchitis History of breast cancer Hypothyroidism Pernicious anemia Stage 3a chronic kidney disease Chest pain Acute on chronic heart failure with preserved ejection fraction (HFpEF) ASHD (arteriosclerotic heart disease) Stage 3a chronic kidney disease Chest pain Chief Complaint Chest Pain Amb Documentation ER follow up b12 Shot B12 Shot B12 Shot 3 month follow upReason for VisitChest pain ASHD (arteriosclerotic heart disease) Stage 3a chronic kidney disease Chest pain (HFpEF) heart failure with preserved ejection fraction ASHD (arteriosclerotic heart disease) Stage 3a chronic kidney disease Chief Complaint B12 Shot B12 Shot 3 month follow up B12 shotReason for Visit(HFpEF) heart failure with preserved ejection fraction ASHD [...] 27, 2024 2:50pm ASHD (arteriosclerotic heart disease) De cember 2023 2:50pm Chronic bronchitis May 27, 2024 [...] 27, 2024 2:50pm ASHD (arteriosclerotic heart disease) [facility] [email or web address] Chronic bronchitis May 27, 2024 2:50pm [...] 22, 2024 11:22am ASHD (arteriosclerotic heart disease) [facility] 2024 11:22am Chronic bronchitis August 22, 2024 [...] 22, 2024 11:22am ASHD (arteriosclerotic heart disease) [facility] 2024 11:22am Chronic bronchitis August 22, 2024 [...] 22, 2024 11:22am ASHD (arteriosclerotic heart disease) [facility] 2024 11:22am Chronic bronchitis August 22, 2024 11: 22am Hypertension August 22, 2024 11: 22am Hypothyroidism August 22, 2024 11: 22am Nicotine dependence, cigarettes, in ruth ssion August 22, 2024 11:22am Obesity August 22, 2024 11: 22am Stage 3a chronic kidney disease August 222024 11:22am ASHD (arteriosclerotic heart disease) [facility] 2024 1:19pm Chronic bronchitis October 06, 2024 [...] 19, 2024 1:43pm ASHD (arteriosclerotic heart disease) [place] 2024 1:43pm Chronic bronchitis November 19, 2024 1:43 pm Hypertension November 19, 2024 1:43 pm Hypothyroidism November 19, 2024 1:43 pm Nicotine dependence, cigarettes, in ruth ssion November 19, 2024 1:43pm Obesity November 19, 2024 1:43 pm Chief Complaint Admit Date Amb Documentation October 06, 2024 10: 31am TB ER; cough/SOB October 06, 2024 1:1 9pm [...] 23, 2025 1:21pm Chief Complaint Admit Date [facility] PREV JRB KRISTA Aug ust 2024 9:48am B12 shot February 02, 2025 1: 05pm 3 month f/u February 23, 2025 1:21pm B12 Shot March 11, 2025 10 :43am B12 Shot, Poss Blood Clot April 14, 2025 3:01pm Additional Source Comments INFORMATION SOURCE (unrecogn ized section and content) DATE CREATED AUTHOR 09/16/2018 [facility] DATE CREATED AUTHOR AUTHOR'S ORGANIZ ATION 08/23/2022 [facility] DATE CREATED AUTHOR AUTHOR'S ORGANIZ ATION 11/17/2022 [facility] DATE CREATED AUTHOR AUTHOR'S ORGANIZ ATION 12/11/2023 [facility] DATE CREATED AUTHOR AUTHOR'S ORGANIZ ATION 01/10/2025 [facility] DATE CREATED AUTHOR AUTHOR'S ORGANIZ ATION 03/15/2025 [facility] Source Comments (unrecognize d section and content) In the event this informatio n is protected by the Federal Confidentiality of Alcohol and Drug Abuse Patient Records regulations: The Federal rules restrict any use of the information to criminally investigate or prosecute any alcohol or drug abuse patient.[facility] the event this information is protected by the Federal Confidentiality of Alcohol and Drug Abuse Patient Records regulations: The Federal rules restrict any use of the information to criminally investigate or prosecute any alcohol or drug abuse patient.[facility] Reason for Visit (unrecogniz ed section and content) ReasonCommentsBreast Cancer1 year follow upReasonCommentsOrders Care Teams (unrecognized sec tion and content) Team Status: Active Member Role Status Dates Noble Hayes DO Primary Care Provider Active Team Status: Inactive Member Role Status Dates Noble Hayes DO Primary Care Provider Active Start: November 26, 2024 End: November 26Primo Leone ProviderActiveStart: November 26, 2024 End: November 26, 2024 Team Status: Inactive Member Role Status Dates Noble Hayes DO Primary Care Provider Active Start: December 01, 2024 End: December 01Primo Leone ProviderActiveStart: December 01, 2024 End: December 01, 2024 Team Status: Inactive Member Role Status Dates Noble Hayes DO Primary Care Provider Active Start: December 31, 2024 End: December 31geraldine Hayes , DOAttending ProviderActiveStart: December 31, 2024 End: December 31, 2024 Team Status: Inactive Member Role Status Dates Noble Hayes DO Primary Care Provider Active Start: January 27, 2025 End: January 27, 2025Bobby Blood II, MDAttending ProviderActiveStart: January 27, 2025 End: January 27, 2025 Team Status: Inactive Member Role Status Dates Noble Hayes DO Primary Care Provider Active Start: February 02, 2025 End: February 02geraldine Hayes , DOAttending ProviderActiveStart: February 02, 2025 End: February 02, 2025 Team Status: Inactive Member Role Status Rick Hayes DO Primary Care Provider Active Start: February 23, 2025 End: February 23geraldine Hayes , DOAttending ProviderActiveStart: February 23, 2025 End: February 23, 2025 Team Status: Active Member Role Status Rick Hayes DO Primary Care Provider Active Start: November 14, 2024 Bala Zepeda , MDAttending ProviderActiveStart: November 14, 2024 Team Status: Inactive Member Role Status Rick Hayes DO Primary Care Provider Active Start: November 19, 2024 End: November 19geraldine Hayes DOAttending ProviderActiveStart: November 19, 2024 End: November 19, 2024 Team Status: Active Member Role Status Rick Hayes DO Primary Care Provider Active Start: November 24, 2024 Ly Sexton CMAAttending ProviderActiveStart: November 24, 2024 Team Status: Inactive Member Role Status Rick Hayes DO Primary Care Provider Active Start: October 29, 2024 End: October 29geraldine Hayes DOAttending ProviderActiveStart: October 29, 2024 End: October 29, 2024 Team Status: Active Member Role Status Rick Hayes DO Primary Care Provider Active Start: October 04, 2024 Danyel Randle DOAttending ProviderActiveStart: October 04, 2024 Team Status: Active Member Role Status Dates Noble Hayes DO Primary Care Provider Active Start: October 06, 2024 Ly Sexton CMAAttending ProviderActiveStart: October 06, 2024 Team Status: Inactive Member Role Status Rick Hayes DO Primary Care Provider Active Start: October 06, 2024 End: October 06geraldine Hayes DOAttending ProviderActiveStart: October 06, 2024 End: October 06, 2024 Team Status: Active Member Role Status Rick Hayes DO Primary Care Provider Active Start: October 09, 2024 Calista Hamm ProviderActiveStart: October 09, 2024 Team Status: Inactive Member [...] Active Start: August 28, 2023 End: August 27Calista Borden ProviderActiveStart: August 28, 2023 End: August 28, 2023 Team Status: Inactive Member Role Status Rick Hayes DO Primary Care Provider Active Start: September 06, 2023 End: September 06, 2023Lesly Dye APRN SOIL CONSERVATION TECHNICIAN-CAttending ProviderActive Start: September 06, 2023 End: September 06, 2023 Team Status: Inactive Member Role Status Rick Hayes DO Primary Care Provide r, Attending Provider Active Start: October 08, 2023 End: October 08, 2023 Team Status: Inactive Member Role Status Dates Noble Hayes DO Primary Care Provide r, Attending Provider Active Start: November 08, 2023 End: November 08, 2023Team MemberRelationshipSpecialtyStart DateEnd Date Noble Hayes DO PCP - GeneralInternal Medicine11/09/14Team MemberRelationshipSpecialtyStart Date End Date Noble Hayes DO [facility]CP - [facility]nal [facility]11/09/14 Team Status: Active Member Role Status Dates Noble Hayes DO Primary Care Provider Active Calista Escobedo ProviderActive Team Status: Inactive Member Role Status Dates Noble Hayes DO Primary Care Provider Active Calista Escobedo ProviderActive Team Status: Active Member Role Status Dates Noble Hayes DO Primary Care Provider Active Start: August 06, 2023 David Swan ProviderActiveStart: August 06, 2023 Team Status: Inactive Member [...] Emergency Provider Active Start: November 30, 2023 Wojciech Jean-[place]aptist[place] Care ProviderActiveStart: November 30, 2023 Kalyan Arroyoit Provider, Attending ProviderActiveStart: November 30, 2023 Team Status: Inactive Member Role Status Dates Nika Fagan DO Emergency Provider Active Start: November 30, 2023 End: November 30BETY Leoneridarwiny Care ProviderActiveStart: November 30, 2023 End: December 01, 2023Kalyan Arroyoit Provider, Attending ProviderActive Start: November 30, 2023 End: December 01, 2023 Team Status: Active Member Role Status Dates Noble Hayes , DO Primary Care Provider Active Start: December 03, 2023 Rose Saldana David ProviderActiveStart: December 03, 2023 Team Status: Inactive Member [...] Care Provider Active Start: January 17, 2024 Calista Alarcon ProviderActiveStart: January 17, 2024 Team Status: Active Member Role Status Rick Hayes DO Primary Care Provider Active Start: January 24, 2024 Calista Alarcon ProviderActiveStart: January 24, 2024 Team Status: Inactive Member [...] Hayes DO Primary Care Provider Active Start: March 11, 2025 End: March 11geraldine Hayes DOAttending ProviderActiveStart: March 11, 2025 End: March 11, 2025 Team Status: Active Member Role/Relationship Status Rick Hayes DO Primary Care Provider Active Team Status: Inactive Member Role/Relationship Status Rick Hayes DO Primary Care Provider Active Start: January 27, 2025 End: January 27, 2025Robcoretta Blood II, MDAttending ProviderActiveStart: January 27, 2025 End: January 27, 2025 Team Status: Inactive Member Role/Relationship Status Rick Hayes DO Primary Care Provider Active Start: February 02, 2025 End: February 02enaida Hayes , DOAttending ProviderActiveStart: February 02, 2025 End: February 02, 2025 Team Status: Inactive Member Role/Relationship Status Rick Hayes DO Primary Care Provider Active Start: February 23, 2025 End: February 23geraldine Hayes , DOAttending ProviderActiveStart: February 23, 2025 End: February 23, 2025 Team Status: Inactive Member Role/Relationship Status Dates Noble Hayes DO Primary Care Provider Active Start: March 11, 2025 End: March 11geraldine Hayes DOAttending ProviderActiveStart: March 11, 2025 End: March 11, 2025 Team Status: Inactive Member Role/Relationship Status Rick Hayes DO Primary Care Provider Active Start: April 14, 2025 End: April 14geraldine Hayes , DOAttending ProviderActiveStart: April 14, 2025 End: April 14, 2025 Goals (unrecognized section and content) Goals [...] BE BASED ON THE PRIMARY CLINICAL RECORDS. [facility]. provides no warranty or guarantee of the accuracy or completeness of information in this document.
== END 2025-04-15 14:20 | disposition home or self-care (01) ==
PROVIDERS: PCP Internal Medicine Interventional Cardiology; Visit Provider Internal Medicine
DX: M79.605 Pain in left leg (principal); M79.89 Other specified soft tissue disorders
CPT/HCPCS: 93971

== ENCOUNTER 2025-05-28 09:07 | Outpatient (OUT) | payer MEDICARE, SELFPAY ==
--- OUTSIDE RECORDS SUMMARY | 2024-06-24 08:00 | XMS_ITS ---
Author Organization [facility] in [place] Address [address] [place] [address] Care Team Providers Care Botany Teacher Name Role Phone Noble Ferguson DO Primary Care Provider UnavailMarleny Jules Unavailable [phone] REASON FOR VISIT Nail Care Encounters Encounter Location Date Provider Diagnosis [facility] (PODIATRY) [address] [place] [address] [place] [address] 06/24/2024 Marleny Adler Plan Of Treatment No Information Progress Notes * Nora GIBBS LDOB:[birth year] (85 yo F)Acc No.[id number]:06/24/2024 UNLOCKED PROGRESS NOTE Nurse Visit Patient: Nora GOTTI Marianne :?ROCK HerreraCDOB:1940???Age:84 Y ???Sex:FemaleDate:06/24/2024Phone:[phone]:[address] [facility] [place] [place] [id number]:Noble Ferguson DO Subjective: * Chief Complaints: * 1 . Nail Care. * Medical History: Objective: * Vitals: Assessment: Plan: * Treatment: * * Electronic signature of Marleny Adler PA-C on 05/28/2025 at 09:13 AM ESTSign off status: PendingVisit Status:?CANC (Cancelled) * Provider: Marina Adler PA-C Date: 0 06/24/2024 Generated for Printing/Faxing/eTransmitting on:?05/28/2025 09:13 AM EST
--- OUTSIDE RECORDS SUMMARY | 2025-05-26 11:45 | XMS_ITS | Encounter Summary ---
Author Organization [facility] Address [address] [place] [address] Care Team Providers Care Agency Operator Name Role Phone Noble Ferguson DO Primary Care Provider [phone] Source Comments In the event this information is protected by the Federal Confidentiality of Alcohol and Drug AbusePatient Records regulations: The Federal rules restrict any use of the information to criminally investigate or prosecute any alcohol or drug abuse patient.[facility] Reason for Referral * Outpatient Procedure (Routine) - AuthorizedSpecialtyDiagnoses / Procedures Referred By ContactReferred To [facility] Diagnoses Chronic obstructive pulmonary disease, unspecified COPD type (HCC) Dyspnea and respiratory abnormalities Procedures LUNG DIFFUSION CAPACITY (DLCO) [place] [address] [place] [address] Phone: tel: [facility] [address] [place] [address] Referral IDStatusReasonStart DateExpiration DateVisits RequestedVisits [id number] Auto-Generated Referral / * Outpatient Procedure (Routine) - AuthorizedSpecialtyDiagnoses / Procedures Referred By ContactReferred To [facility] Diagnoses Chronic obstructive pulmonary disease, unspecified COPD type (HCC) Dyspnea and respiratory abnormalities Procedures [place] [address] [place] [address] Phone: tel: [address] [address] Referral IDStatusReasonStart DateExpiration DateVisits RequestedVisits [id number] Auto-Generated Referral * Outpatient Procedure (Routine) - AuthorizedSpecialtyDiagnoses / Procedures Referred By ContactReferred To [facility] Diagnoses Chronic obstructive pulmonary disease, unspecified COPD type (HCC) Dyspnea and respiratory abnormalities Procedures OXIMETRY WITH AMBULATION NONINVASIVE EAR/PULSE OXIMETRY MULTIPLE DETER Daina Mendez [place] [id number] [place] [address] Phone: tel: [address] [address] Referral IDStatusReasonStart DateExpiration DateVisits RequestedVisits [id number] Auto-Generated Referral * Outpatient Procedure (Routine) - AuthorizedSpecialtyDiagnoses / Procedures Referred By ContactReferred To [facility] Diagnoses Chronic obstructive pulmonary disease, unspecified COPD type (HCC) Dyspnea and respiratory abnormalities Procedures SPIROMETRY WITH DILATOR IF OBSTRUCTED BRNCDILAT RSPSE SPMTRY PRE&POST-[place] [address] [place] [address] Phone: tel: [facility] [address] [place] [address] Referral IDStatusReasonStart DateExpiration DateVisits RequestedVisits [id number] Auto-Generated Referral / Reason for Visit * ReasonCommentsEstablished PatientCOPDShortness of Breath Encounter Details DateTypeDepartmentCare Team (Latest Contact Info)Dpqwflyfyto66/ 11:45 AM ESTOffice Visit PULMONARY [address] [place] [address] [place] [address] [place] [address] Chronic obstructive pulmonary disease, unspecified COPD type (HCC) (Primary Dx); History of tobacco use; Dyspnea and respiratory abnormalities; Non-seasonal allergic rhinitis, unspecified trigger Social History Tobacco UseTypesPacks/DayYears UsedDateSmoking Tobacco: KzledoPwqovfunnt659 Smokeless Tobacco: NeverAlcohol UseStandard Drinks/WeekCommentsNo0 (1 standard drink = 0.6 oz pure alcohol)PHQ-2AnswerDate RecordedPHQ-2 dkika550rea Deprivation IndexAnswerDate RecordedNational Score (1-100), lower number is lower jgod673503/10/2025State Score (1-10), lower number is lower owqk65803/10/2025 Data from: https://www.neighborhoodatlas.[facility]/. Last address used for sog[address]/10/2025CommentsNoSex and Gender InformationValueDate RecordedSex Assigned at BirthNot on fileLegal SexFemale 05/12/2012 9:14 AM ESTGender IdentityNot on fileSexual OrientationNot on file documented as of this encounter Last Filed Vital Signs Vital SignReadingTime TakenCommentsBlood Rrnqamfs658/7605/26/2025 11:55 AM EST Owosy174105/26/2025 11:55 AM HSTEiuebqtbxwv29.6 ??C (97.8 ??F)05/26/2025 11:55 AM ESTRespiratory Grvd407607/27/2024 11:55 AM ESTOxygen Cjqzrcdxzx63%05/26/2025 11:55 AM ESTInhaled Oxygen Concentration--Fharsa25.6 kg (180 lb)05/26/2025 11:55 AM ESTHeight--Body Mass Index32.9105 12:57 PM EDTdocumented in this encounter Functional Status * Are you deaf or do you have serious difficulty hearing?AnswerDate of WbrxbzubedXwstppEu89/04/2015 11:11 AM Clarisse Newby * Are you blind or do you have serious difficulty seeing, even when wearing glasses?AnswerDate of NnnwfrzurnMvdydgFj93/04/2015 11:11 AM Clarisse Newby * Do you have serious difficulty walking or climbing stairs?AnswerDate of JyulplnwrbGhmvtoQhs22/04/2015 11:11 AM Clarisse Newby * Do you have difficulty dressing or bathing?AnswerDate of AssessmentAuthorNo 01/12/2015 11:11 AM Clarisse Newby * Because of a physical, mental, or emotional condition, do you have difficulty doing errands alone such as visiting a doctor's office or shopping?AnswerDate of CtambyizihAbwnqpWm25/04/2015 11:11 AM Clarisse Newby documented as of this encounter Mental Status * Because of a physical, mental, or emotional condition, do you have serious difficulty concentrating, remembering, or making decisions?AnswerEntry Date TzmcnhYn11/04/2015 11:11 AM Clarisse Newby documented in this encounter Progress Notes * Daina Mendez MD - 05/26/2025 11:21 AM EST . FOLLOW UP OFFICE VISIT Nora Parnell is a 85 year old female who presents for follow up of COPD and dyspnea. Last visit trelegy was changed to bevespi due to cost. She reports today worsening dyspnea with minimal exertion, including walking around her room to make her bed. She endorses dyspnea with vacuuming and shopping. She states, I can't do anything, and describes huffing and puffing with activities. She also experiences dyspnea when getting up at night to use the bathroom, but denies orthopnea. She denies chest pain, pressure, dizziness, or lightheadedness. Nora reports increased cough and wheezing, which she believes has worsened since discontinuing Trelegy. She is currently using Bevespi. She has albuterol at home, which she uses infrequently, and did not have it available during recent episodes of cough and wheeze. She reports that albuterol provides minimal to no relief with her dyspnea. She has had no respiratory infections or AECOPD since her last visit. She reports bilateral lower extremity swelling, which she attributes to bursitis and arthritis. She also reports high blood pressure readings at home, particularly in the mornings. She endorses rhinorrhea and frequent sneezing in the mornings. PMH, FAMH, SOCIAL History & Allergies were verified and updated, and medications were reconciled with the patient at this visit. PAST MEDICAL HISTORY Diagnosis Date Arthritis Breast cancer (HCC) Right; T2N0M0; ER/TX+ HER2 COPD (chronic obstructive pulmonary disease) ([facility]) Hypertension Hypothyroidism : PAST SURGICAL HISTORY Procedure Laterality Date ARTHRP KNE CONDYLE&PLATU MEDIAL&LAT COMPARTMENTS BREAST BIOPSY CARPAL TUNNEL COLOSTOMY/SKIN LEVEL CECOSTOMY EXCISION MAL LESION TRUNK/ARM/LEG 2.1-3.0 CM 10/14/2019 MASTECTOMY PARTIAL PRQ CARDIAC STENT W/ANGIO 1 VSL SENT LYMPH NODE BIOPSY STENT PLACEMENT : No family history on file.: Social History[1] Allergies: Allergies Allergen Reactions Penicillins Unknown Sulfa (Sulfonamide Antibiotics) Unknown Current Medications: Current Outpatient Medications Medication [...] NAILS WITH BIOTIN PO) Take by mouth. glycopyrrolate-formoterol (BEVESPI AEROSPHERE) 9-4.8 mcg Inhale 2 puffs as instructed two times a day. 1 each 11 CALCIUM ORAL Take 1,200 mg by mouth once daily. isosorbide mononitrate ER (IMDUR) 60 mg 24 hr tablet Take 60 mg by mouth once daily. temazepam (RESTORIL) 30 mg cap Take 30 mg by mouth daily at bedtime. inulin (FIBER GUMMIES ORAL) Take by mouth. acetaminophen (TYLENOL EXTRA STRENGTH) 500 mg tablet Take 500 mg by mouth every 6 hours as needed. amLODIPine (NORVASC) 10 mg tablet Take 10 mg by mouth once daily. albuterol HFA (VENTOLIN HFA) 90 mcg/actuation inhaler Ventolin HFA 90 mcg/actuation aerosol inhaler aspirin, enteric coated (ASPIRIN, ENTERIC COATED) 81 mg EC tablet Take 81 mg by mouth q 24 HR. atorvastatin (LIPITOR) 40 mg tablet Take 40 mg by mouth once daily. lisinopril (ZESTRIL, PRINIVIL) 20 mg tablet Take 20 mg by mouth once daily. fluocinonide (LIDEX) 0.05 % external solution APPLY TO SCALP NEEDED FOR ITCHINESS (Patient not taking: APPLY TO SCALP NEEDED FOR ITCHINESS) No current facility-administered medications for this visit. ROS as per HPI. PHYSICAL EXAM: BP 210/76 Pulse 59 Temp (Src) 97.8 (Temporal) Resp 16 Wt 180 lb (81.6kg) SpO2 94% General appearance: well appearing, in no acute distress, alert Skin: skin color normal, no rashes or lesions Eyes: Anicteric sclera. Neck: Supple, no adenopathy Respiratory: lungs clear to auscultation, no wheezing or rhonchi, normal work of breathing, good air movement Cardiovascular: S1, S2. RRR without murmur. 2+ bilateral lower extremity edema. Musculoskeletal: Extremities normal. No digital clubbing. Neuro/PSY: Normal mood and affect. Data Review: I personally reviewed, interpreted, and discussed the labs, PFTs and radiographs with the patient as noted below: Echocardiogram 11/2023: Normal biventricular systolic function. RV and RA size normal. No significant valvular disease. RVSP not estimated. Assessment/Plan: 1) COPD, moderate/Gold stage 2. Feeling worse without ICS. Will change bevespi to breztri. She will continue to abstain from smoking. Continue albuterol prn. Full PFTs and walk test ordered. Will check eosinophil level and IgE. I recommend staying up to date on preventive vaccinations - pneumonia vaccinations, annual influenza vaccinations, and covid boosters. I recommend masking when in public during cold and flu season. 2) Dyspnea. With edema on exam today, significantly elevated blood pressure, and no response to albuterol I am more concerned her dyspnea is cardiac in nature. Deconditioning also plays a role. She will follow up with cardiology as scheduled. I will again try to obtain her most recent echo results from this year. TSH ordered as well. 3) History of tobacco use. She will continue to abstain. She is out of the window for lung CA screening The above plan was discussed with the patient and all questions were answered. I will see Ms. Parnell for follow-up in 4-6 weeks or sooner if needed. Daina Mendez MD Pulmonary and Critical Care Medicine [facility] [place] May 26, 2025 Recording using LaunchPoint software for draft documentation of the visit was discussed with the patient/authorized healthcare sales representative; all questions welcomed and answered. Patient/authorized healthcare sales representative agreed to proceed [1] Social History Tobacco Use Smoking status: Former Current packs/day: 1.00 Average packs/day: 1 pack/day for 55.0 years (55.0 ttl pk-yrs) Types: Cigarettes Smokeless tobacco: Never Substance Use Topics Alcohol use: No Drug use: No documented in this encounter Plan of Treatment DateTypeDepartmentCare Team (Latest Contact Info)Bttwfahsgrx44/17/2026 9:00 AM ESTProcedure PULMONARY [address] [facility] [place] [address] Follow up after tszdzae1607/28/2025 9:15 AM ESTProcedure PULMONARY [address] [place] [address] Follow up after gwyppyi6907/28/2025 9:30 AM ESTProcedure PULMONARY [address] [place] [address] Follow up after khpjsdp2607/28/2025 10:00 AM ESTProcedure PULMONARY [address] [place] [address] Follow up after kejbaow4707/28/2025 10:30 AM ESTOffice Visit PULMONARY [address] [facility] [place] [address] [place] [address] [place] [address] Follow up after testingNameTypePriorityAssociated DiagnosesOrder ScheduleTHYROID STIMULATING HORMONELabRoutine Dyspnea and respiratory abnormalities Expected: 05/26/2025, Expires: 08/25/2025OMPLETE BLOOD COUNT AND DIFFERENTIAL LabRoutine Chronic obstructive pulmonary disease, unspecified COPD type (HCC) Dyspnea and respiratory abnormalities Expected: 05/26/2025, Expires: 08/25/2025IMMUNOGLOBULIN ELabRoutine Non-seasonal allergic rhinitis, unspecified trigger Expected: 05/26/2025, Expires: 08/25/2025SPIROMETRY WITH DILATOR IF OBSTRUCTED PFTRoutine Chronic obstructive pulmonary disease, unspecified COPD type (HCC) Dyspnea and respiratory abnormalities 1 Occurrences starting 05/26/2025 until 06/25/2026OXIMETRY WITH AMBULATIONPFT Routine Chronic obstructive pulmonary disease, unspecified COPD type (HCC) Dyspnea and respiratory abnormalities 1 Occurrences starting 05/26/2025 until 06/25/2026LUNG VOLUMESPFTRoutine Chronic obstructive pulmonary disease, unspecified COPD type (HCC) Dyspnea and respiratory abnormalities 1 Occurrences starting 05/26/2025 until 06/25/2026LUNG DIFFUSION CAPACITY (DLCO) PFTRoutine Chronic obstructive pulmonary disease, unspecified COPD type (HCC) Dyspnea and respiratory abnormalities 1 Occurrences starting 05/26/2025 until 06/25/2026documented as of this encounter Visit Diagnoses Diagnosis Chronic obstructive pulmonary disease, unspecified COPD type (HCC)- Primary History of tobacco use Personal history of tobacco use, presenting hazards to health Dyspnea and respiratory abnormalities Other dyspnea and respiratory abnormality Non-seasonal allergic rhinitis, unspecified trigger documented in this encounter Care Teams Team MemberRelationshipSpecialtyStart DateEnd Date Noble Ferguson DO PCP - GeneralInternal Medicine11/09/14documented as of this encounter
--- OUTSIDE RECORDS SUMMARY | 2025-05-27 09:28 | XMS_ITS | Continuity of Care Document ---
Author Organization [facility] Address [address] [place] [address] Phone Care Team Providers Care Silverlight Developer Name Role Phone Noble Ferguson DO Primary Care Provider Noble Ferguson DO Attending Provider [phone] Care Teams Patient Care Team Team Status: Active Member Role/Relationship Status Dates Noble Ferguson DO Primary Care Provider Active Visit Care Team Team Status: Inactive Member Role/Relationship Status Dates Noble Ferguson DO Primary Care Provider Active Start: March 11, 2025 End: March 11geraldine Ferguson DOAttnida ProviderActiveStart: March 11, 2025 End: March 11, 2025 Visit Care Team Team Status: Inactive Member Role/Relationship Status Dates Noble Ferguson DO Primary Care Provider Active Start: April 14, 2025 End: April 14geraldine Ferguson DOAttnida ProviderActiveStart: April 14, 2025 End: April 14, 2025 Patient Care Team Team Status: Inactive Member Role/Relationship Status Dates Noble Ferguson DO Primary Care Provider Active Start: May 27, 2025 End: May 27geraldine Ferguson DOAttnida ProviderActiveStart: May 27, 2025 End: May 27, 2025 Chief Complaint and Reason for Visit Chief Complaint Admit Date B12 Shot March 11, 2025 10 :43am B12 Shot, Poss Blood Clot April 14, 2025 3:01pm 3 month/B12 Shot May 27, 2025 1:12pm Reason for Visit Admit Date ASHD (arteriosclerotic heart disease) No vem2024 3:01pm Greater trochanteric bursitis of left hi p April 14, 2025 3:01pm Pain and swelling of left lower extremit y April 14, 2025 3:01pm (HFpEF) heart failure with preserved eje ction fraction May 27, 2025 1:12pm ASHD (arteriosclerotic heart disease) 2024 1:12pm Chronic bronchitis May 27, 2025 1:12pm Chronic kidney disease May 27 1:12pm History of breast cancer May 27, 2025 1:12pm Hypercholesterolemia May 27, 2025 1:12pm Hypertension May 27, 2025 1:12pm Hypothyroidism May 27, 2025 1:12pm Medicare annual wellness visit, subseque nt May 27, 2025 1:12pm Nicotine dependence, cigarettes, in ruth ssion May 27, 2025 1:12pm Obesity May 27, 2025 1:12pm Screening mammogram for breast cancer 2024 1:12pm Allergies, Adverse Reactions, Alerts Allergen Type Severity Reaction Last Updated Verified Status Comments penicillamine Allergy Unknown Hives May 272024 1:30pm Yes Active PenicillinsAllergyUnknownHivesDeceer 2024 1:30pmYesActiveOnset Date: 05/15/2014Sulfa (Sulfonamide Antibiotics)AllergyUnknownHivesDeencompass health [facility] 2024 1:30pmYesActiveOnset Date: 05/15/2014sulfacetamideAllergyUnknownRashNew [facility]ec[facility] 2024 1:30pmYesActivesulfurAllergyUnknownRashNew Lifecare [facility] 2024 1:30pmYes Active Social History Smoking Status Status Start Date End Date Date of Observa tion Ex-smoker (finding) November 10, 2007Jun2023 2:53pm Observation Status Observation Response Date of Response Legal Sex Female (finding) [facility] 1939 Family History Relationship Condition Age at Onset Recorded Date/T nithin father Myocardial infarction Unknown sisterMalignant neoplasmUnknownfatherDeceasedUnknownmotherDeceasedUnknown Problems Active Problems Problem Diagnosis/Recorded Date Onset Date Status C omments Medicare annual wellness vis it, subsequent May [...] anemiaFebruary 2023 1:21pm UnknownActiveDyspneaSeptember 2023 7:46amUnknownActiveEdemaJune 2023 10:43amUnknownActiveHypercholesterolemiaDecember 2024 2:19pmUnknownActive HypothyroidismNovember 2022 9:30amUnknownActiveChronic kidney diseaseApril 2024 1:26pmUnknownActivePain and swelling of left lower extremityNovember 2024 4:20pmUnknownActivePulmonary nodulesSeptember 2024 1:15pmUnknown ActiveBilateral hip painAugust 2024 7:18amUnknownActiveHistory of radiation exposureNovember 2022 11:09amUnknownActiveChronic bronchitisJune 2023 2:44pmUnknownActivePFT: mild obstructive defect, mild restrictive defect, decreased DLCO - 02/2024,CTA chest: negative - 11/2023HypertensionDecember 2023 3:48pmUnknownActiveObesitySeptember 2023 7:52pmUnknownActive ASHD (arteriosclerotic heart disease)August 09, 2023 9:31amUnknownActiveLHC: PCI/stent [...] Discontinued 30 MG PO Daily at bedtime 5 August 03, 2023 9:00am January 28, 2024 8:00pmPrimary insomnia Primary insomniaLisinopril 20 mg tabletDiscontinued0.ROUTE.SJRJCPP4520Wtwxy 2023 2:12pmJune 2023 5:33pmTAKE ONE TABLET BY MOUTH DAILYDoxazosin 2 mg gptjivUiyrmdpbioyo4REEXGlmwb at bedtimeJune 2023 11:00pmJune 2023 1:24pmFurosemide 20 mg jpqdklRlvtyyrqghax35KJPIPrklt fbngh13993Yqqt 2023 11:00pmSeptember 2023 9:25amLisinopril 30 mg ekdpirOdgawtdjghhy77ATNIVysjj 909606Vztq 2023 10:34amSeptember 2023 10:02amTemazepam 30 mg capsule Psatimtraeqa18CBNOOwraw at xmkeivl61923Yzvpnz 2023 8:00pmJanuary 2024 1:13pmPrimary insomnia Primary insomniaLevothyroxine 88 mcg tabletDiscontinued0.ROUTE.PCPXEZK7109Dfxajc 2023 12:10pmJuly 2024 9:08pmTAKE ONE TABLET BY MOUTH ONCE DAILY ON AN EMPTY STOMACHFurosemide 20 mg fpvtuwKdbnzldngzyr51CZCPMhiyn dailyOctober 2023 11:00pmDecember 2023 3:20pmIsosorbide Mononitrate 30 mg tablet extended release 24 iwQnnxsiojephd74RCGQJtmdcCdupabp 2023 11:00pmJune 2024 10:02amLisinopril 20 mg tmaxzmXqospa46IIHJQpaer dailyOctober 2023 11:00pmComplies with drug therapyTemazepam 30 mg uxaanfxBbccfmshynvm17GOLICyzvr at nbnicof23499Nckvlgy 2024 1:12pmAugust 2024 4:52pmPrimary insomnia Primary insomniaOndansetron 4 mg tablet,wocrxoeferygarWdmdaccjjfkl7EFYWQqbac 8 hours as needed for nausea and tnmvuqgj4015Jgish 2024 11:00pmJune 2024 2:40pmClopidogrel 75 mg gdrctiBtmpju54FLFDTcxfj56945Jjcl 2024 11:00pm Complies with drug therapyDoxazosin 4 mg yhjotsWlgdvxgtgvbi7ANWNWzynh at bedtime 09356Gpda2024 2:39pmSeptember 2024 12:29pmPrimary hypertension Essential (primary) hypertensionIsosorbide Mononitrate 30 mg tablet extended release 24 hbGzlwpoqtvzae97TZWFCijphRhdl 2024 10:01amJuly 2024 6:59pmtake 30mg in the morning; take 60+30mg to EQUAL 90mgLevothyroxine 88 mcg tabletActive0.ROUTE.IALJSLG6767Wcas 2024 9:08pmTAKE ONE TABLET BY MOUTH ONCE DAILY ON AN EMPTY STOMACHComplies with drug therapyIsosorbide Mononitrate 120 mg tablet extended release 24 fmHaewtzkozqek08TBBHKwudu108Jlce 2024 6:58pmSeptember 2024 12:44pmtake 30mg in the morning; take 60+30mg to EQUAL 90mgPantoprazole 20 mg tablet,delayed release (DR/EC)Mfqkmp94TFIGZsnrg328 December 29, 2024 11:00pmComplies with drug therapyTemazepam 30 mg kvmvsbzSgcbgk81 MGPODaily at mkqcobz70630Saeuie 2024 4:52pmPrimary insomnia Primary insomniaComplies with drug therapyAtorvastatin 40 mg xvgwwvWqiltm30JFCX DailyApril 24, 2023 12:00amComplies with drug therapyLisinopril 20 mg qgsmzhJkrzjogrdzhf14IYVQUcwdf 2022 12:00amMarc 2023 2:12pmCyanocobalamin (Vitamin B-12) (Vitamin B-12) 100 mcg/mL Solution Hdlmllkdomzi176PKXHzitrzpo 14th, 2023 12:00amDeceer 2022 10:42am Isosorbide Mononitrate 60 mg tablet extended release 24 ewEajhjeurdqxi46RLPR Every morningApril 24, 2023 12:00amJune 2024 2:40pmLevothyroxine 88 mcg bnnqxxPxpfbeokarea69FZBDPLqngm 2022 12:00amAugust 2023 12:10pmTemazepam 30 mg fgyyxkmKhykrkweikcw21TCMSVybip at bedtime April 24, 2023 12:00amFebruary 2023 9:01amAmlodipine 10 mg tablet Cbmyzsxepmjy54IYAFRlyjf2022 12:00amJune 2023 3:11pm Aspirin 81 mg Tablet,TtmvweihCzoumv30SWOWAojvvEwawehlh 14th, 2023 12:00am Complies with drug therapyCalcium Carbonate-Vitamin D3 (Calcium 600 + D(3)) 600 mg-10 mcg (400 unit) YwolhgJiqdzc2WQENREoahfFzwsmgzq 14th, 2023 12:00amComplies with drug therapyInulin (Fiber Gummies) 2 gram Tablet,IocjxwcyZgmian7VYYZKwgke dailyApril 24, 2023 12:00amComplies with drug therapy Hhacoibojpm-Vpihzmttp-Jxeohpcq (Trelegy Ellipta) 200-62.5-25 mcg Blister With ZfvygkUsydnnslypoy0OWJLQSYNPCVCBPrjgkYfqqzlmr 14th, 2023 12:00amMay 2024 12:98vkEdrbfz-Izbvlpah-Uwj C-E-Herbal 1,250 mcg-50 mg -67.5 mg-15 mg Tablet,TyujmelkEyrunm1LXSMEDxqsg after supperNovember 2022 12:00amComplies with drug therapyDoxazosin 2 mg hfnkjnAeoprfxjobjr8RQKUJaepv at bedtimeNovember 29, 2023 11:00pmMarch 2024 11:02amPrimary hypertension Essential (primary) hypertensionSpironolactone 25 mg IdjmuuHviswjvlhsbr60FKXR Hmutx931Jjae 21st, 2024 11:00pmSeptember 2023 11:45amMetoprolol Succinate 25 mg Tablet Extended Release 24 McTnravc31.7RILEIpyoj14376Bnpn 21st, 2024 11:00pmComplies with drug therapyDoxazosin 2 mg ubexkvWmorouqrabnu0PRPKIvsuh at bedtimeMer[facility] 2024 11:01amJune 2024 2:40pmPrimary hypertension Essential (primary) hypertensionAcetaminophen 500 mg BcbrjdDzecrkklkvsw796RINS Q6H as needed for PainDeceer 2022 12:00amOctober 2023 1:29pm Cyanocobalamin (Vitamin B-12) 1,000 mcg/mL SnprnpkiTkhedp4881SCILBpdgav month May 17, 2023 12:00amComplies with drug therapyAlbuterol Sulfate 90 mcg/actuation Hfa Aerosol RzvuphwIgwowvvtarsd5BHEZARQYAYEGONBv Directed as needed for Shortness Of BreathDeencompass health [facility] 2022 12:00amSeptember 2023 9:46amTorsemide 20 mg ziziusWjseuvatprow14JBJMCmpti wuwxtze786Vtpq 9th, 2024 11:00pmJune 2023 2:03pmAlbuterol Sulfate 90 mcg/actuation HFA aerosol xzkckzlNeixwngtwsww9TGOIXPMXSOOTHRWy Directed as needed for Shortness Of Breath 8.5305September 2023 9:45amSeptember 2023 11:49amLisinopril 40 mg ytjbgvFlbewhucjoza92VWCSUrkzn775141Rpbeuakzj 2023 9:49amSeptember 2023 11:46amLisinopril 40 mg zvfatkHblvnntirpbf84TLRNIgcdlCwforyqts 2023 11:46amOctober 2023 5:05pmLisinopril 30 mg qsjrcoDmxymowykgdg43KMTBDkdmc February 18, 2024 11:00pmOctober 2023 5:05pmAlbuterol Sulfate 90 mcg/actuation HFA aerosol foaqxanCdwynu8VTSYJBPQPSQKDNBZSTK 4-6 HOURS as needed for Shortness Of Breath8.5305Sept2023 11:49amComplies with drug therapyLisinopril 40 mg hawfscEdcxjgodejml14TVBATnqwfYmzecuk 9th, 2024 5:05pm March 20, 2024 1:30pmFurosemide 20 mg bebxsiNwpxwuddgigi14OHAISmuvv50489Mitr 2024 11:00pmJune 2024 10:82bhXvwobvalbxh-Plnwehhet-Ntbnydsf (Trelegy Ellipta) 200-62.5-25 mcg blister with ldaukxCgravjeinfki1ZSRVRPMORHOJOHelpi09415 October 28, 2024 11:00pmDecemb2024 1:36pmDoxazosin 4 mg tablet Updwmvycheip5ULCKDboqz076Hsvpdrods 2024 11:00pmDecember 2024 1:54pm Isosorbide Mononitrate 30 mg tablet extended release 24 hrActiveMGPOAugust 2024 11:00pmComplies with drug therapyIsosorbide Mononitrate 60 mg tablet extended release 24 hrActiveMGPOAugust 2024 11:00pmComplies with drug rsddyocCqcbsylmlp-Jrjhnvbm-Fvihqrpjtd (Breztri Aerosphere) 160-9-4.8 mcg/actuation HFA aerosol ccyxynsInotrr8JDEOJYIDZXADYWcmwr dailyMay 27, 2025 12:00amComplies with drug therapyHydralazine 10 mg aselwbYxgavi04MKTXIonns times elpsh81413IkmycjpwMay 27, 2025 12:00amComplies with drug therapyLisinopril 30 mg hbdfgcElvlyifhauur24UIQZFzfwz07272Tutm 2023 11:30amJuly 2023 3:47pmAdd to Lisinopril 20mg (total 30mg/day)Lisinopril 10 mg tabletDiscontinued 82YOEFPpcux97234Aqrl 2023 11:00pmJuly 2023 10:35amTake w/ 20mg Lisinopril for total of 30mg qdLisinopril 30 mg ccnjdrPeuutpyxocqq00IIRHGbdlp44 305July 2023 3:47pmJuly 2023 10:36amAmlodipine 2.5 mg tablet Discontinued2.2KAZUDysna71824Hchyblhb 2023 12:00amMarch 2024 11:20am Azithromycin 250 mg rtungzDidhypxbnrbl156PKMW.AGDHDJP149Bdqva 2024 11:00pm November 24, 2024 10:00am2 tabs on first day followed by 1 tab on days 2-5 Immunizations Immunization Event Date Not Given Reason Dose Number Ethylene Compressor Operator Lot Number Reason(s) Given Vaccine Information Statement (VIS) Detail Administration Location COVID-19 mRNA Comirnatmeg (Metabolomx) August 16 COVID-19 mRNA, Comirnaty (Metabolomx)September 07OVID-19 mRNA, Comirnaty (Metabolomx)March 07, 2021Fluzone TIV High-Dose 65YR+February 19, 2024 [id number] [facility]-Dose 65YR+February 23, 2025 [id number] [facility]influenza, unspecified formulationOctober 2014influenza, [facility] 2015influenza, unspecified formulationOctway[facility] 2016influenza, unspecified formulationOctober 2017 influenza, unspecified formulationOctober 2018influenza, unspecified formulationSeptember 2019influenza, unspecified formulationSeptember 2020influenza, unspecified formulationSeptember 2021influenza, unspecified formulationOctober neumococcal Conjugate Vaccine, 13 valentOctober 2014Pneumococcal Polysacc. Vaccine, 23 valentNovember 2008Tetanus, Diphtheria adult, 5 Lf pres free absNovember 2012 Procedures Procedure Date Performed Status US venous duplex LE LT April 14, 2025 4:19pm completed Vital Signs Vital Reading Result Reference Range Collection Date/Time Height 61 [in_i] April 14, 2025 3:37hzSopqoy66.33 kgNov2024 3:26pmHeart Rate65 /edf16-556Ebxqcqzv 4th, 2025 3:26pmRespiratory rate12 /rch80-49Wkizyecu 4th, 2025 3:26pmBP Fidjymsx204 mm[Hg]100-140Nov2024 3:26pmBP Skywfbrbh66 mm[Hg]60-100Nov2024 3:26pmBMI (Body Mass Index)33.8 kg/v4AmkdzxjrApril 14, 2025 3:30wpOvsdqg25 [in_i]May 27, 2025 1:30phZlsopt17.32 kgDeceer 2024 1:36pmHeart Rate66 /vau14-143Oaivcyzm 2024 1:36pmRespiratory rate12 /stl72-43Lwlqgabh 2024 1:36pmBP Qbhuepiq278 mm[Hg]100-140[facility]ceb[facility] 2024 1:36pmBP Amnfdakjl54 mm[Hg]60-100December 2024 1:36pmBMI (Body Mass Index)34.2 kg/n1Vvwjfara 2024 1:36pm Advance Directives Advance Directive Response Recorded Date/ Time Advance Directives No November 26 7:48am Insurance Providers Guarantor Nora Marianne Parnell Address [address] [id number] Info.Home Phone: Payer Group Member ID Coverage Type Subscriber Relationship to Subscriber Effective Date Expiration Date Medicare [id number] L Pfanner Id: [id number] [address] [facility] [address] Home Phone: SelfAARP Health Claims [id number] L Pfanner Id: [id number] [address] [facility] [address] Home Phone: Self Encounters Encounter Location(s) Arrival/Admit Date Discharge/Departure Date Discharge/Departure Disposition Provider(s) Departed Physician/ Provider Office Visit -[facility] March 11, 2025 10:43am March 11, 2025 11:18am Discharged to home care or self care (routine discharge) Noble Ferguson DO Departed Physician/ Provider Office Visit -[facility] April 14, 2025 3:01pm April 14, 2025 4:19pm Discharged to home care or self care (routine discharge) Noble Ferguson DO Departed Physician/ Provider Office Visit -[facility] May 27, 2025 1:12pm May 27, 2025 2:27pm Discharged to home care or self care (routine discharge) oNble Ferguson DO Recent Diagnosis Onset Date Admit Date ASHD (arteriosclerotic heart disease) Unknown April 14, 2025 3:01pm Greater trochanteric bursitis of left hip Unknow n April 14, 2025 3:01pm Pain and swelling of left lower extremity Unknow n April 14, 2025 3:01pm (HFpEF) heart failure with p reserved ejection fraction Unknown May 27, 2025 1:12pm ASHD (arteriosclerotic heart disease) Unknown May 27, 2025 1:12pm Chronic bronchitis Unknown May 1:12pm Chronic kidney disease Unknown May 27, 2025 1:12pm History of breast cancer Unknown Decembe r 2024 1:12pm Hypercholesterolemia Unknown May 272024 1:12pm Hypertension Unknown May 27, 025 1:12pm Hypothyroidism Unknown May 27 025 1:12pm Medicare annual wellness visit, subsequent Unkno wn May 27, 2025 1:12pm Nicotine dependence, cigarettes, in remission Un known May 27, 2025 1:12pm Obesity Unknown May 27 025 1:12pm Screening mammogram for breast cancer Unknown May 27, 2025 1:12pm Assessments Diagnosis Onset Date Resolution Status Admit Date ASHD (arteriosclerotic heart disease) acuteApril 14, 2025 3:01pmGreater trochanteric bursitis of left hipacute April 14, 2025 3:01pmPain and swelling of left lower extremityacuteApril 14, 2025 3:01pm(HFpEF) heart failure with preserved ejection fractionacute May 27, 2025 1:12pmASHD (arteriosclerotic heart disease)acuteMay 27, 2025 1:12pmChronic bronchitisacuteMay 27, 2025 1:12pmChronic kidney diseaseacuteMay 27, 2025 1:12pmHistory of breast canceracuteMay 27, 2025 1:12pmHypercholesterolemiaacuteMay 27, 2025 1:12pmHypertension acuteMay 27, 2025 1:12pmHypothyroidismacuteMay 27, 2025 1:12pm Medicare annual wellness visit, subsequentacuteMay 27, 2025 1:12pm Nicotine dependence, cigarettes, in remissionacuteMay 27, 2025 1:12pm ObesityacuteMay 27, 2025 1:12pmScreening mammogram for breast canceracute May 27, 2025 1:12pm Plan of Treatment Author Noble Ferguson [facility] HospitalAuthoredMay 24, 2025 8:52pmThis patient is stable without activity related chest pain, dyspnea or lightheadedness. I instructed them to continue exercise at least 3x weekly and consume a low salt, low fat, high fiber diet. I instructed them to continue secondary prevention measures in reducing risks for recurrent events. LHC: PCI/stent RCA, 70% LCx, 70% distal LAD - 08/2018 Lexiscan w/o ST/T wave changes but objective symptoms of SSCP radiating to the jaw w/ dyspnea, required 2 SL NTG - 11/2023 Cardiolite images w/ fixed anterior wall defect suspected to be breast artifact - 11/2023 Echo: LVEF 65%, LVH, KAREEM, RV normal size/function, RVSP 33 - 10/2024 LHC: PCI/stent LCx - 11/2024 RHC w/ normal pressure - 11/2024 Continue Imdur, Metoprolol, Lisinopril without [...] BB and SHAHID - cardiology increased Doxazosin Completed referral to [facility] Restart TUAN as needed every 4-6 hours. Changed Trelegy to Bevespi for cost. - CTA: negative for thrombus, infiltrate, fluid or mass: 11/2023 - PFT: FEV1/FVC 74, FEV1 63%, UMK02-97 70%, TLC 77%, RV/TLC 50%, DLCO 32% - 02/2024 - Walk Test: no desaturations - 02/2024 - CTA: negative for PE but noted to have small pleural effusions, B/L nodular opacities - 10/2024 Continue triple therapy despite minimal improvement in [...] 4mg due to night time urinary incontinence I instructed this patient on the benefits [...] the office for any changes or concerns. Instructed to continue abstinence. They are aware [...] and arthritis. Clinically euthyroid, monitor yearly TSH s/p lumpectomy followed by radiation therapy I have instructed this patient on the recommended lifestyle changes, which includes a low fat, high fiber diet along with a regular exercise routine. I have also reviewed the recommended age-appropriate preventive testing for this patient. I have also reviewed the recommended vaccines for their age and risk factors. I have instructed this patient on monthly SBE and recommended yearly mammograms. Author Noble Ferguson [facility] HospitalAuthoredNovember 2024 5:28pmDAPT required after recent PCI/stent placement in the LCx 11/2024 s/p Trochanteric bursa injection w/ temporary relief of pain. Holding PT but can use heat/ice and Voltaren Gel Instructed to avoid salt, elevate legs and take Tylenol for pain. She was instructed to continue DAPT for now. Schedule lower extremity venous US Future Tests Future scheduled test information is unavailable Pending Tests Test Name Ordered Date Scheduled Date Comprehensive Metabolic Panel May 27 2:10pm Future Visits Future appointment information is unavailable Future Procedures Procedure Name Ordered Date Scheduled Date Complete Blood Count Auto Diff May 27 2:10pm Lipid PanelDecember 2024 2:10pmThyroid Stimulating HormoneDecember 2024 2:12pm Future Medications Future medication information is unavailable Patient Instructions Patient instructions are unavailable
--- OUTSIDE RECORDS SUMMARY | 2025-05-28 09:13 | XMS_ITS | Patient Health Record ---
Author Organization [facility] in [place] Address [address] [place] [address] Care Team Providers Care Glass Finisher Name Role Phone Noble Ferguson DO Primary Care Provider Marleny Moore Unavailable [phone] Vickey Waldrop Unavailable [phone] Allergies Allergen (clinical drug ingredient) Drug/Non Drug Allergy documented on EMR Reaction Allergy Type Onset Date Status Substance with sulfonamide s tructure and antibacterial mechanism of action (substance) Sulfa Antibiotics hives Drug Allergy ActivePenicillinanaphylaxisDrug AllergyActive Results Component Value Reference Range Notes ITP Reviewed date:12/04/2024 04:04:56 PM Interpretation: Performing Lab: Notes/Report: Source Facility: [place] [address] Cardiac Rehab Report Signed Patient: NORA GIBBS MR#: [id number] : 1940 Acct:[id number] Age/Sex: 84 / F ADM Date: 12/03/24 Loc: CR Attending Dr: BALA ROBLES Ordering Physician: Vickey Waldrop D.O. Date of Service: 12/03/24 Procedure(s): ITP Accession Number(s): [id number] cc: [facility] Test Date: 2024-12-03 Pat Name: NORA GIBBS Department: Room: - Gender: Female German Instructor: : 1940 Requested By: Vickey Waldrop Order Number: [id number] Chase MD: Vickey Waldrop Interpretive Statements Okay to proceed with outlined treatment plan. Electronically Signed On 12-04-2024 15:30:39 EDT by Vickey Waldrop Dictated By: Vickey Waldrop D.O. Signed By: 12/04/24 1531 12/04/24 153 DD/ 1425 TD/TT: Blind Installer: Reason For Referral No Information Medications Medication [...] Administration Date Status Comme nts Flu, Fluad (58273) 65 yrs + High Dose Seasonal (8591-6070) Unknown 02/19/2024 Administered SARS-COV-2 (COVID 19 Pfizer 30mcg/0.3mL)Hwnrwxc2003/07/2021dministered Social History Tobacco Use: Social History Observation Description Date Details (start date - stop date) Former Smoker NA - NA Tobacco Control (Standard) Question Answer Notes Tobacco use: Former smoker How long has it been since you last smoked?Greater than 10 yearsAdditional Findings: Tobacco vpx-wwkqGp-yegpm cigarette smoker (20-30/day) Problems Problem Type SNOMED Code ICD Code Onset Dates Problem Status W/U Status Risk Notes Problem COPD - Chronic obstr uctive pulmonary disease (66773990) COPD (chronic obstructive pulmonary disease) (J44.9) ActiveconfirmedProblemCoronary artery disease (17561376)CAD (coronary artery disease) (I25.10)ActiveconfirmedProblemPernicious anemia (83040932)Pernicious anemia (D51.0)ActiveconfirmedProblemRestrictive lung disease (17193357) Restrictive lung disease (J98.4)ActiveconfirmedProblemEx-tobacco user (finding) (843225820)History of tobacco abuse (Z87.891)ActiveconfirmedProblemMalignant neoplasm of female breast (001451385)Adenocarcinoma of right breast (C50.911) ActiveconfirmedProblemDiastolic heart failure (023313874)Heart failure with preserved left ventricular function (HFpEF) (I50.30)Activeconfirmed Vital Signs Heart Rate 65 /min 09/22/2024 Edfsjnvqlgw58.8 degrees Pdsqyajswt91/14/2025Respiratory Rate18 /min09/22/2024 Blood pressure dlnkkwtok28 mm Hg09/22/20243234Eqxmcrtx72 %09/22/20246173Rprrdg66 in 09/22/2024lood pressure mm Hg09/22/20242734Hjstef691.6 lbs09/22/2024MI 35.44 kg/m209/22/2024 Encounters Encounter Location Date Provider Diagnosis [facility] [place] [address] [place] [address] 09/22/2024 Vickey Waldrop COPD (chronic obstructive pulmonary disease) J44.9 ; Restrictive lung disease J98.4 ; Adenocarcinoma of right breast C50.911 ; CAD (coronary artery disease) I25.10 ; Pernicious anemia D51.0 ; Heart failure with preserved left ventricular function (HFpEF) I50.30 and History of tobacco abuse Z87.891 [facility] [place] [address] [place] [address] 09/08/2024 Vickey Waldrop Assessments Encounter Date Diagnosis [...] with cost - she is subsiding on REES46gy samples, something I am unable to do(I [...] End Date MEDICARE [place] [address] [place] [address] [id number] Evan Gibbsf - patient is the [id number] [address] [address] [place] [id number], Betty Self - patient is the [id number] 2023 Medical (General) History Medical History History [...] J98.4 Surgical History Surgery Date(Month/Year) right breast I&D 01/31/2023 punch biopsy right breast 09/08/2022 colostomy and reversal of colostomy due to bowel obstruction 2015 cervical fusion/laminectomy ventral hernia repairtonsillectomy and adenoidectomyright breast fxieipckkz4740 joint replacements -- left knee, left hip, right hipI&D right glutealcoronary angioplasty stentappendectomycataract removalhysterectomyHospitalization History Reason Date(Month/Year) see above
--- OUTSIDE RECORDS SUMMARY | 2025-05-28 09:13 | XMS_ITS ---
Author Organization [facility] Address [address] [place] [address] Care Team Providers Care Mental Health Therapist Name Role Phone Noble Ferguson DO Primary Care Provider [phone] Active Problems ProblemNoted DateDiagnosed DateCAD in [place] lfzjuz1811/21/2024 Assessment & Plan (11/22/2024 1:44 AM EDT): - Severe 80% stenosis in the mid circumflex reduced to 0% by a Synergy XD drug- eluting stent -Previous stent to the RCA - DAPT for 12 months, then aspirin 81 mg daily for life. Statin therapy for life. -Follow-up A1c and lipids Former tobacco use09/26/2024Restrictive lung gmaydis5709/26/2024hronic diastolic congestive heart lslhdky9409/26/2024 Assessment & Plan (11/22/2024 1:44 AM EDT): Not in exacerbation Shortness of fymmaf8209/26/2024hest pain12/31/2023isorder of nail12/31/2023Heart failure with preserved ejection fraction, borderline, class III12/31/2023Lower extremity edema12/31/2023cute on chronic heart failure with preserved ejection fraction (HFpEF)11/23/20236600Xahck40/14/2024History of radiation /14/2024 Rborumjinxglcj25/14/2024 Assessment & Plan (11/22/2024 1:44 AM EDT): Continue Synthroid Nonhealing surgical wound11/23/2023ernicious tttdvu6911/23/20236950Bpcqrofy75/14/2024 Stage 3a chronic kidney ajngnzi8811/23/2023Open wound of right aodlec7404/18/2023Hx of heart artery stent04/11/20237529Asjkczefz08owel obstruction oronary artery isxowmq1208/30/20229784Itzxfvsesnqsft57/22/2023 04/11/20237608Bhbjazkxbmcu53reast emkmzw21 Necrotizing zdlrtquiu98yspnea on dggervhz03 Status post percutaneous transluminal coronary oitckejegoy04 Chronic obstructive lung vsqzxvi40 Assessment & Plan (11/22/2024 1:44 AM EDT): - Not in exacerbation, continue home inhalers History of breast ritlan92 Current Treatment and Therapy Plans No current plan information found. Past Treatment and Therapy Plans No past plan information found. Lifetime Dose Tracking * ChemicalLifetime DoseAutomatic EntryManual EntryFluoro Time26.34 minutes0 .34 minutesAir Kerma1,712.73 mGy0 mGy1,712.73 mGyDose Area Product 151,743 mGy-cm20 mGy-lv9660,743 mGy-cm2
--- OUTSIDE RECORDS SUMMARY | 2025-05-28 09:13 | XMS_ITS | Encounter Summary ---
Author Organization [facility] Address [facility] [place] [address] Care Team Providers Care Patient Relations Liaison Name Role Phone Noble Ferguson DO Primary Care Provider [phone] Source Comments In the event this information is protected by the Federal Confidentiality of Alcohol and Drug AbusePatient Records regulations: The Federal rules restrict any use of the information to criminally investigate or prosecute any alcohol or drug abuse patient.[facility] Encounter Details DateTypeDepartmentCare Team (Latest Contact Info)Ipgphnzmwjp48/16/2025Travel Social History Tobacco UseTypesPacks/DayYears UsedDateSmoking Tobacco: JbbzxbQfluyhswcj101 Smokeless Tobacco: NeverAlcohol UseStandard Drinks/WeekCommentsNo0 (1 standard drink = 0.6 oz pure alcohol)PHQ-2AnswerDate RecordedPHQ-2 xfiao833rea Deprivation IndexAnswerDate RecordedNational Score (1-100), lower number is lower lepd457703/10/2025State Score (1-10), lower number is lower cshu75403/10/2025 Data from: https://www.neighborhoodatlas.medicine.[facility].edu/. Last address used for ok[address]utctqdp[address]/10/2025CommentsNoSex and Gender InformationValueDate RecordedSex Assigned at BirthNot on fileLegal SexFemale 05/12/2012 9:14 AM ESTGender IdentityNot on fileSexual OrientationNot on file documented as of this encounter Functional Status * Are you deaf or do you have serious difficulty hearing?AnswerDate of OfxvctgiudPiiucjWe84/04/2015 11:11 AM Clarisse Newby * Are you blind or do you have serious difficulty seeing, even when wearing glasses?AnswerDate of VbpnblbjzaFalrolEw06/04/2015 11:11 AM Clarisse Newby * Do you have serious difficulty walking or climbing stairs?AnswerDate of XienrdljriJuriqvDfi49/04/2015 11:11 AM Clarisse Newby * Do you have difficulty dressing or bathing?AnswerDate of AssessmentAuthorNo 01/12/2015 11:11 AM Clarisse Newby * Because of a physical, mental, or emotional condition, do you have difficulty doing errands alone such as visiting a doctor's office or shopping?AnswerDate of LhzxgjdxmoCtmqhhVa83/04/2015 11:11 AM Clarisse Newby documented as of this encounter Mental Status * Because of a physical, mental, or emotional condition, do you have serious difficulty concentrating, remembering, or making decisions?AnswerEntry Date WiubcpLl37/04/2015 11:11 AM Clarisse Newby documented in this encounter Plan of Treatment DateTypeDepartmentCare Team (Latest Contact Info)Bmzgfnzskoj63/17/2026 9:00 AM ESTProcedure PULMONARY [address] [place] [address] Follow up after tcpfpxq0807/28/2025 9:15 AM ESTProcedure PULMONARY [address] [place] [address] Follow up after rxxanqi3707/28/2025 9:30 AM ESTProcedure PULMONARY [address] [place] [address] Follow up after wybsavv2007/28/2025 10:00 AM ESTProcedure PULMONARY [address] [place] [address] Follow up after jaogekb9607/28/2025 10:30 AM ESTOffice Visit PULMONARY [address] [place] [address] [place] [address] [place] [address] Follow up after testingdocumented as of this encounter Visit Diagnoses Not on filedocumented in this encounter Care Teams Team MemberRelationshipSpecialtyStart DateEnd Date Noble Ferguson DO PCP - GeneralInternal Medicine11/09/14documented as of this encounter
--- OUTSIDE RECORDS SUMMARY | 2025-05-28 09:13 | XMS_ITS | Clinical Summary ---
Author Organization [facility] Address [facility] [place] [address] Care Team Providers Care Academic Hospitalist Name Role Phone Noble Ferguson DO Primary Care Provider [phone] Allergies Active AllergyReactionsCriticalityNoted XsbmFvgpjwdqSvfvqffpqipTobsfeq25/04/2015 Sulfa (Sulfonamide Antibiotics)Zaaxlxp4111/12/2014 Medications MedicationSigDispense QuantityRefillsLast FilledStart DateEnd DateStatus lisinopril [...] 30 mg by mouth daily at bedtime.09/24/2020ctive fluocinonide (LIDEX) 0.05 % external solution APPLY TO SCALP NEEDED FOR ARMOBDXXM67/19/2021ctive inulin (FIBER GUMMIES ORAL) Take by mouth.Active [...] Take 88 mcg by mouth daily before breakfast.04/04/2023ctive cyanocobalamin (VITAMIN B-12) 100 mcg tab Take 100 mcg by mouth.Active ascorbic acid/vitamin E/biotin (HAIR, SKIN, NAILS WITH BIOTIN PO) Take by mouth.Active haxvdccfzx-qfjkicui-umrbrprzvz (BREZTRI AEROSPHERE) 160-9-4.8 mcg/actuation HFA aerosol inhaler Inhale 2 puffs as instructed two times a day. 1 each tive ketoconazole (NIZORAL) 2 % shampoo APPLY WASH TO SCALP EVERY OTHER DAY. LET SIT FOR 5 MINUTES BEFORE RINSING. Discontinued(Discontinued by Patient) glycopyrrolate-formoterol (BEVESPI AEROSPHERE) 9-4.8 mcg Inhale 2 puffs as instructed two times a day. 1 each Discontinued(Course of therapy completed) Active Problems ProblemNoted DateDiagnosed DateHistory of breast goehhb3510/19/2015Malignant neoplasm of right female mywduc3604/14/2015Malignant neoplasm of female breast 11/18/2014 Encounters DateTypeDepartmentCare IrliLsqmpklmklc05/16/2025 11:45 AM ESTOffice Visit PULMONARY [address] [place] [address] [place] [address] Karlie Mendez MD Chronic obstructive pulmonary disease, unspecified COPD type (HCC) (Primary Dx); History of tobacco use; Dyspnea and respiratory abnormalities; Non-seasonal allergic rhinitis, unspecified pmcolpo8505/26/20254620Ehsdub91/30/2025 1:00 PM EDTOffice Visit PULMONARY [address] [place] [address] [place] [phone] Karlie Mendez MD Chronic obstructive pulmonary disease, unspecified COPD type (HCC) (Primary Dx); History of tobacco use03/10/2025 12:30 PM EDTProcedure PULMONARY [address] [place] [address] [place] [address] Mswpgstfek64/30/2025 11:10 AM EDT - 03/10/2025 11:59 PM EDTHospital Encounter Radiology [address] [place] [address] Dyspnea on exertion [R06.09] Discharge Disposition: Home03/10/20259580Wzrcvq52/26/2025H&P External-NonCCF Provider, External, [facility] 03/06/2025Orders Only Cancer Appts [address] [place] [address] Karlie Mendez MD Dyspnea on exertion (Primary Dx)from Last 3 Months Immunizations ImmunizationAdministration DatesNext DueCOVID-19 original vaccine, age 12+ yr, monovalent (PFI[employer]ER[employer] - PURPLE TOP)03/07/2021,09/07/2020,08/16/2020 influenza (HD-IIV3) vaccine, age 65+ yr, high dose, trivalent, PF (FLUZONE HIGH-DOSE)03/27/2017,03/21/2016influenza (aIIV3) vaccine, age 65+ yr, trivalent, PF (FLUAD)03/11/2018 Social History Tobacco UseTypesPacks/DayYears UsedDateSmoking Tobacco: RdoshyFratfuxolg655 Smokeless Tobacco: NeverAlcohol UseStandard Drinks/WeekCommentsNo0 (1 standard drink = 0.6 oz pure alcohol)PHQ-2AnswerDate RecordedPHQ-2 kalqn547rea Deprivation IndexAnswerDate RecordedNational Score (1-100), lower number is lower wfgf031003/10/2025State Score (1-10), lower number is lower injw05203/10/2025 Data from: https://www.neighborhoodatlas.medicine.[facility].edu/. Last address used for mosgoceffks[address]03/10/[address]CommentsNoSex and Gender InformationValueDate RecordedSex Assigned at BirthNot on fileLegal SexFemale 05/12/2012 9:14 AM ESTGender IdentityNot on fileSexual OrientationNot on file Last Filed Vital Signs Vital SignReadingTime TakenCommentsBlood Mfhdcard231/7612/ 11:55 AM EST Hfiwg909705/26/2025 11:55 AM BQVLzcpdkbttqy66.6 ??C (97.8 ??F)05/26/2025 11:55 AM ESTRespiratory Ckkd395707/27/2024 11:55 AM ESTOxygen Cjppotkevu97%05/26/2025 11:55 AM ESTInhaled Oxygen Concentration--Ggioot89.6 kg (180 lb)05/26/2025 11:55 AM ZBPKpmdve471.5 cm (5' 2.01 )10/19/2021 12:57 PM EDTBody Mass Index32.91 10/19/2021 12:57 PM EDT Plan of Treatment DateTypeDepartmentCare Team (Latest Contact Info)Yrhrzquobpf31/17/2026 9:00 AM ESTProcedure PULMONARY [address] [place] [address] Follow up after lbrkbce7207/28/2025 9:15 AM ESTProcedure PULMONARY [address] [place] [address] Follow up after skdkdoz3207/28/2025 9:30 AM ESTProcedure PULMONARY [address] [facility] [facility] [place] [address] Follow up after ysvzcml6007/28/2025 10:00 AM ESTProcedure PULMONARY [address] [place] [address] Follow up after vjjtelx8807/28/2025 10:30 AM ESTOffice Visit PULMONARY [address] [place] [address] [place] [address] [place] [address] Follow up after testingHealth MaintenanceDue DateLast DoneCommentsAnxiety Mbbxdtkjb09/07/1956Depression Rpcqmowvt94/07/1956Shingrix Vaccine (1 of 2) 1988Medicare Annual Wellness Visit06/11/1996Bone Density Screening 2003RSV Vaccine (1 - 1-dose 75+ series)2013DTaP,Tdap,Td Vaccine (1 - Tdap)dvance Directive Lggbmfkawo14/01/2025Covid-19 Vaccine ( season)509/, 09/07/2020, 1Diabetes Pgellfzrn44/14/124926/, 11/21/2024, 05/17/2023, Additional history exists Pneumococcal Vaccine: 50+Wbysvfxni32/14/2015, 04/28/2009Influenza Vaccine Buotgwxyi20/15/2025, 02/19/2024, 03/26/2023, Additional history exists Procedures Procedure NamePriorityDate/TimeAssociated DiagnosisCommentsEXTERNAL CARDIOLOGY 05/27/2025 8:57 AM EST EXTERNAL MUGKBZOOOE41/17/2025 8:57 AM EST EXTERNAL YADUNYMPMX69/08/2025 3:34 PM EDT SPIROMETRY WITH DILATOR IF QFHASLIMZDPwtctxq35/30/2025 12:38 PM EDT Dyspnea on exertion XR CHEST 2V FRONTAL/NKLAemnxao48/30/2025 11:23 AM EDT Dyspnea on exertion EXTERNAL NUENTIO3703/06/2025 3:24 PM EDT EXTERNAL HCLWPATRZ56/26/2025 3:[address] OUTSIDE CD DICOM KUIRIA2602/27/2025 BASIC METABOLIC SEUSWTazhoqj46/04/2019 10:54 AM EST 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, estrogen receptor positive, unspecified laterality, unspecified site of breast (HCC) from Last 3 Months or Most Recently Relevant to Health Maintenance Results * EXTERNAL CARDIOLOGY (05/27/2025 8:57 AM EST) Narrative Authorizing ProviderResult TypeResult StatusExternal Provider PA-CCARDIOLOGY Final Result * EXTERNAL CARDIOLOGY (05/27/2025 8:57 AM EST) Narrative Authorizing ProviderResult TypeResult StatusExternal Provider PA-CCARDIOLOGY Final Result * EXTERNAL CARDIOLOGY (03/18/2025 3:34 PM EDT) [...] PREDICTED (%)78%PULMONARY FUNCTION LABFEV1/FVC LLN (%)64%PULMONARY FUNCTION AMGLOW98% PRE (L/S)1.63L/SPULMONARY FUNCTION LAB FEF25% POST (L/S)1.55L/SPULMONARY FUNCTION ZDTJCI01% PRE (L/S00.09L/SPULMONARY FUNCTION SAGQOH03% POST (L/S)0.09L/SPULMONARY FUNCTION WJCBFM66% PREDICTED (L/S)0.25L/SPULMONARY FUNCTION OZISGU47% LLN (L/S)0.08L/SPULMONARY FUNCTION RWIDNS15% ULN (L/S)0.81L/SPULMONARY FUNCTION GXTPQV03-13% PRE (L/S)0.24L/S PULMONARY FUNCTION SJFMUA82-90% POST (L/S)0.25L/SPULMONARY FUNCTION AUBRPN62- 75% PREDICTED (L/S)1.26L/SPULMONARY FUNCTION OIMOMM87-99% LLN (L/S)0.49L/S PULMONARY FUNCTION LABPEF PRE (L/S)3.32L/SPULMONARY FUNCTION LABPEF POST (L/S) 2.88L/SPULMONARY FUNCTION LABPEF LLN (L/S)1.98L/SPULMONARY FUNCTION LABPEF ULN (L/S)5.00L/SPULMONARY FUNCTION LABFET PRE (S)11.32SPULMONARY FUNCTION LABFET POST (S)12.09SPULMONARY FUNCTION LABSpecimen (Source)Anatomical Location / LateralityCollection Method / VolumeCollection TimeReceived Time03/10/2025 12:38 PM EDT Narrative PULMONARY FUNCTION LAB - 03/11/2025 11:01 AM EDT [facility] ? [address] [place] [address] [place] [address] ? Test Date: ? 2025-03-10 Pat Name: ?NORA GIBBS ? Department: ?Room: ? Gender: ?Female ?Feed Blender: ? : ? 1940 ?Requested By: ?? Order Number: ??[id number] ? Reading MD: ?Sadie Jones MD ? [...] 11:01:02 EDT by Sadie Jones MD ID: [id number] ?Name: NORA GIBBS ?Race: White Ht: 60.08 in ?Wt: 173.28 lbs ?Age: 84 Gender: Female ?: 1940 ?Dx: Other forms of dyspnea Smoking Hx: Non-smoker ?Doctor: KARLIE MENDEZ Test Date: 03/10/2025 ?Site: [facility] ?Tech: [employer] ?PRE-BRONCH ? POST-BRONCH ?[place] ?LLN ?? Pred [...] ? FIVC ?1.53 ? 1.44 ?-5 ? VLK88-89 ?0.24 ?? 0.49 ?? 1.26 ?? 2.48 [...] OrganizationAddressCity/State/ZIP CodePhone Number PULMONARY FUNCTION LAB [address] [place] [address] * XR CHEST 2V FRONTAL/LAT (03/10/2025 11:23 [...] any questions regarding this interpretation, please call [phone]. If you are unable to reach us at the number above, please feel free to contact [facility] at [phone]. Narrative 03/10/2025 1:46 PM EDT * * [...] ??Pulmonary vasculature is unremarkable. Procedure Note Provider, [facility] - 03/10/2025 * * *Final Report* * [...] any questions regarding this interpretation, please call [phone]. If you are unable to reach us at the number above, please feel free to contact [facility] eRadiology at [phone]. Authorizing ProviderResult TypeResult StatusRenee Andrea MDRAD-PAMAFinal Result * EXTERNAL IMAGING (03/06/2025 3:24 PM EDT)Anatomical RegionLateralityModality Other Narrative Authorizing ProviderResult TypeResult StatusExternal Provider PA-CRADIOLOGYFinal Result * EXTERNAL PROCEDURE (03/06/2025 3:24 PM EDT) Narrative Authorizing ProviderResult TypeResult StatusExternal Provider PA-CPROCEDUREFinal Result * CT-CT CHEST WO CON IMPORT (02/27/2025)Anatomical RegionLateralityModalityOther Specimen (Source)Anatomical Location / LateralityCollection Method / Volume Collection TimeReceived Time02/27/2025 Narrative 03/09/2025 11:02 AM EDT Images were obtained outside of [facility] Procedure Note Provider, [facility] - 03/09/2025 Images were obtained outside of [facility] Authorizing ProviderResult TypeResult StatusCcf ProviderRADIOLOGYFinal Result * (ABNORMAL) BASIC METABOLIC PNL (04/14/2019 10:54 AM EST)ComponentValueRef RangeTest MethodAnalysis TimePerformed AtPathologist AuqhcmyyhVnowsjc591(H)74 - 99 mg/dL04/14/2019 11:25 AM ESTOhiohealth [facility] Comment: The [place] Diabetes Association (ADA) provides guidance for cutoff [...] Standards of Medical Care in Diabetes 2016, [place] Diabetes Association. Diabetes Care. 2016.39(Suppl 1). HNX410 - 21 mg/dL04/14/2019 11:25 AM [facility] Creatinine0.920.58 - 0.96 mg/dL04/14/2019 11:25 AM [facility] JmqmCzyszg695403 - 144 mmol/L106/14/2018 11:25 AM [facility] Cancer CarePotassium4.53.7 - 5.1 mmol/L106/14/2018 11:25 AM [facility] FvngQwkurngq874(H)97 - 105 mmol/L 04/14/2019 11:25 AM [facility] HusnAA620(L)22 - 30 mmol/L106/14/2018 11:25 AM [facility] Cancer CareAnion Gap14 9 - 18 mmol/L106/14/2018 11:25 AM [facility] Care Calcium9.78.5 - 10.2 mg/dL04/14/2019 11:25 AM [facility] Cancer CareeGFR->6004/14/2019 11:25 AM [facility] Cancer CareeGFR-All Other Races59.04/14/2019 11:25 AM [facility] Cancer CareComment: eGFR (Estimated GFR) Units of [...] 10:56 AM EST Narrative Authorizing ProviderResult TypeResult StatusTimdarlene Pepe DOLABORATORY Final ResultPerforming OrganizationAddressCity/State/ZIP CodePhone Number [facility] [address] [place] [address] [facility] [address], [place] from Last 3 Months or Most Recently Relevant to Health Maintenance Insurance Care Teams Team MemberRelationshipSpecialtyStart DateEnd Noble Ferguson DO PCP - GeneralInternal Medicine11/09/14
--- OUTSIDE RECORDS SUMMARY | 2025-05-28 09:13 | XMS_ITS | Clinical Summary ---
Author Organization [facility] Address [address] [place] [address] Care Team Providers Care Luncheonette Manager Name Role Phone Noble Ferguson DO Primary Care Provider [phone] Allergies Active AllergyReactionsCriticalityNoted NviiLzmcndokRprhgouyykl00/08/2023Sulfa Byugywqdpkg98/08/2023 Medications MedicationSigDispense QuantityRefillsLast FilledStart DateEnd DateStatus amLODIPine (Norvasc) 10 MG tablet Take 10 mg by mouth in the morning.04/04/2023ctive atorvastatin (Lipitor) 40 MG tablet Take 40 mg by mouth in the morning.04/04/2023ctive Trelegy Ellipta 200-62.5-25 MCG/ACT aerosol powder INHALE 1 PUFF ONCE DAILY FOR 30 DAYS12/07/2022ctive isosorbide mononitrate ER (Imdur) 60 MG 24 hr tablet Take 60 mg by mouth in the morning.04/04/2023ctive levothyroxine (Synthroid, Levoxyl) 88 MCG tablet TAKE ONE TABLET BY MOUTH ONCE DAILY ON AN EMPTY HYOSOLY1104/04/2023ctive lisinopril 20 MG tablet Take 20 mg by mouth in the morning.04/04/2023ctive temazepam (Restoril) 30 MG capsule TAKE ONE CAPSULE BY MOUTH ONCE DAILY AT BEDTIME ctive aspirin 81 MG EC tablet Take 81 mg by mouth in the morning.Active UNABLE TO FIND Med Name: Fiber gummies 5gActive calcium carbonate (Os-Oracio) 1250 (500 Ca) MG tablet Take by mouth Daily.Active UNABLE TO FIND Med Name: BiotinActive cyanocobalamin (Vitamin B-12) 100 MCG tablet Take 100 mcg by mouth in the morning.Active acetaminophen (Tylenol) 500 MG tablet Take by mouth.Active ipratropium-albuterol (Combivent Respimat) 20-100 MCG/ACT inhaler Inhale 1 puff in the morning and 1 puff at noon and 1 puff in the evening and 1 puff before bedtime.Active docusate sodium (Colace) 50 MG capsule Take 50 mg by mouth in the morning and 50 mg before bedtime.Active Active Problems ProblemNoted DateDiagnosed DateOpen wound of right reovku3204/18/2023 Immunizations ImmunizationAdministration DatesNext DueInfluenza, High Dose Seasonal, Preservative Free03/27/2017,03/21/2016Influenza, Seasonal, Quadrivalent, Neypvpcrzv33/26/2022Influenza, trivalent, fypjvmacvp68/01/2018 Family History RelationNameStatusCommentsFatherDeceasedMotherDeceased Social History Tobacco UseTypesPacks/DayYears UsedDateSmoking Tobacco: FormerCigarettesQuit: 2008Alcohol UseStandard Drinks/WeekCommentsNot Currently0 (1 standard drink = 0.6 oz pure alcohol)CommentsUnknownSex and Gender InformationValueDate RecordedSex Assigned at BirthNot on fileLegal YfnNunseq72/15/2023 7:21 PM EDT Gender IdentityNot on fileSexual OrientationNot on file Last Filed Vital Signs Vital SignReadingTime TakenCommentsBlood Jfrktmtq924/7604/18/2023 1:27 PM EST Pulse--Temperature--Respiratory Rate--Oxygen Saturation--Inhaled Oxygen Concentration--Jglozc22.6 kg (180 lb)04/18/2023 1:27 PM ZQUUqaefd526.4 cm (5') 04/18/2023 1:27 PM ESTBody Mass Index35.15106/18/2022 1:27 PM EST Plan of Treatment Not on file Insurance # [place] [address] Care Teams Team MemberRelationshipSpecialtyStart DateEnd Noble Ferguson DO PCP - GeneralInternal Iavayxuk45/6/23
--- OUTSIDE RECORDS SUMMARY | 2025-05-28 09:13 | XMS_ITS | Clinical Summary ---
Author Organization [facility] Address [address] [place] [address] Care Team Providers Care Service Promoter Salesperson Name Role Phone Noble Ferguson DO Primary Care Provider [phone] Allergies Active AllergyReactionsCriticalityNoted DateCommentsPenicillinsAnaphylaxis,Hives ,Other,JhftrhdFihp66/04/2015Sulfa (Sulfonamide Antibiotics)Hives,Other,Rash, JxyjgzyOlh54/04/2015 Medications MedicationSigDispense QuantityRefillsLast FilledStart DateEnd DateStatus levothyroxine (Synthroid, Levoxyl) 88 mcg tablet 1 (one) time each day at the same time.Active aspirin 81 mg EC tablet Take 1 tablet by mouth in the morning.Active digvvyigwgk-zbxpnyvbe-fdwvhdqw 200-62.5-25 mcg blister with device INHALE 1 PUFF ONCE DAILY08/09/2022ctive temazepam (Restoril) 30 mg capsule TAKE ONE CAPSULE BY MOUTH ONCE DAILY AT PPEUNXE8709/24/2020ctive cyanocobalamin (Vitamin B-12) 1,000 mcg/mL oral liquid [...] 24 hr tablet Indications:Coronary artery disease involving sleetmute coronary artery of sleetmute heart without angina pectorisTAKE 1/2 TABLET BY MOUTH DAILY DIRECTED 15 tablet 1005Active doxazosin (Cardura) 4 mg tablet Indications:Primary hypertensionTake 2 tablets (8 mg) by mouth at bedtime. 180 tablet ctive atorvastatin (Lipitor) 40 mg tablet Indications:Coronary artery disease, unspecified vessel or lesion type, unspecified whether angina present, unspecified whether sleetmute or transplanted heartTAKE 1 TABLET (40 MG) BY MOUTH IN THE MORNING. 30 tablet ctive isosorbide mononitrate ER (Imdur) 120 mg 24 hr tablet Indications:Coronary artery disease involving sleetmute coronary artery of sleetmute heart without angina pectoris,Primary hypertensionTake 1 tablet (120 mg) by mouth in the morning. Do not crush or chew. 90 tablet ctive pantoprazole (ProtoNix) 20 mg EC tablet Indications:Coronary artery disease involving sleetmute coronary artery of sleetmute heart without angina pectorisTake 1 tablet (20 [...] clopidogrel (Plavix) 75 mg tablet Indications:CAD in sleetmute arteryTake 1 tablet (75 mg) by mouth in the morning. 90 tablet ctive Active Problems ProblemNoted DateDiagnosed DateCAD in sleetmute btdbpe3511/21/2024 Assessment & Plan (11/22/2024 1:44 AM EDT): - Severe 80% stenosis in the mid circumflex reduced to 0% by a Synergy XD drug- eluting stent -Previous stent to the RCA - DAPT for 12 months, then aspirin 81 mg daily for life. Statin therapy for life. -Follow-up A1c and lipids Former tobacco use09/26/2024Restrictive lung djzreqx9809/26/2024hronic diastolic congestive heart ystcoeb2209/26/2024 Assessment & Plan (11/22/2024 1:44 AM EDT): Not in exacerbation Shortness of ubnvxe1709/26/2024hest pain12/31/2023isorder of nail12/31/2023Heart failure with preserved ejection fraction, borderline, class III12/31/2023Lower extremity edema12/31/2023cute on chronic heart failure with preserved ejection fraction (HFpEF)11/23/20234208Bbfoy70/14/2024History of radiation /14/2024 Trdpdvisstjhht23/14/2024 Assessment & Plan (11/22/2024 1:44 AM EDT): Continue Synthroid Nonhealing surgical wound11/23/2023ernicious thnwwr9211/23/20237098Nttvlgze74/14/2024 Stage 3a chronic kidney olujskv1011/23/2023Open wound of right pzwnvk6004/18/2023Hx of heart artery stent04/11/20232015Otycpfetl54owel obstruction oronary artery ggxalre8208/30/20227649Hsfpkgwyqwwfjp78/22/2023 04/11/20233701Sctqhwsdduuo48reast glnyto37/06/2022 Necrotizing voneqzgwa98yspnea on ntqdrbpy93/06/2022 Status post percutaneous transluminal coronary wsazcluoyup33 Chronic obstructive lung Assessment & Plan (11/22/2024 1:44 AM EDT): - Not in exacerbation, continue home inhalers History of breast ajtpio15 Family History Medical HistoryRelationNameCommentsHypertensionBrotherNo Known ProblemsFatherNo Known ProblemsMotherRelationNameStatusCommentsBrotherDeceasedFatherDeceased MotherDeceased Social History Tobacco UseTypesPacks/DayYears UsedDateSmoking Tobacco: FormerCigarettesQuit: 2008Smokeless Tobacco: Never Tobacco Cessation:Counseling Given: Not Answered Alcohol UseStandard Drinks/WeekCommentsNever0 (1 standard drink = 0.6 oz pure alcohol)[facility] UtilitiesAnswerDate RecordedIn the past 12 months has the CoPatient, gas, oil, or water [employer] threatened to shut off services in your [...] were you homeless or living in a snf (including now)?No11/21/2024 Hunger Vital SignAnswerDate RecordedWithin the past 12 months, you worried that your food would run out before you got the money to buymore.Never true11/21/2024 Ran Out of Food in the Last YearNot on file11/21/2024CommentsUnknownSex and Gender InformationValueDate RecordedSex Assigned at IsudmJpkyob37/13/2025 11:45 AM EDTLegal CciUbxbjp77/30/2022 12:13 AM EDTGender IdentityFemale 11/21/2024 11:45 AM EDTSexual OrientationHeterosexual or Mfzbrfpb39/13/2025 11:45 AM EDT Last Filed Vital Signs Vital SignReadingTime TakenCommentsBlood Oporkczq021/64012/29/2024 1:09 PM EDT Mknkd0971/21/2025 1:09 PM POTKiipnzngopr55.3 ??C (97.3 ??F)11/22/2024 8:00 AM EDTRespiratory Stmd564611/22/2024 8:00 AM EDTOxygen Maazgsupze36%12/29/2024 1:09 PM EDTInhaled Oxygen Concentration--Npvelp73.6 kg (180 lb)12/29/2024 1:09 PM EDT Hmvezc252.9 cm (5' 1 )12/29/2024 1:09 PM EDTBody Mass Index34.01012/29/2024 1:09 PM EDT Plan of Treatment Health MaintenanceDue DateLast DoneCommentsMedicare Annual Wellness (AWV) 1938Depression Vyvrstioi10/07/1950Pneumococcal Vaccine: 50+ Years (1 of 2 - PCV)7Adult Fgjwthx9003/17/1960Zoster Vaccines (1 of 2)1988COVID- 19 Vaccine (4 - season)509/, 09/07/2020, 08/16/2020 Influenza Vaccine (#1)/03/2024, 03/06/2022, 03/11/2018, Additional history existsFall Risk Oxfdhhkbp71/14/16492411/22/2024HIB VaccinesAged OutNo longer eligible based on patient's [...] Marylin Issa Mr 2.25 X 24 - [id number] Implanted:Qty: 1 on 11/21/2024 by [facility] F [facility] Eluting StentLeft: HeartBoston [employer] [id number] / / [id number] Insurance Advance Directives * Full Code (Latest Code Status on File) Date ActivatedDate InactivatedComments11/21/2024 9:51 PM11/22/2024 4:43 PM Care Teams Team MemberRelationshipSpecialtyStart DateEnd Date Noble Ferguson DO [address] [place] [address] PCP - Swptvgi48/31/23
--- OUTSIDE RECORDS SUMMARY | 2025-05-28 09:13 | XMS_ITS | Clinical Summary ---
Author Organization [employer] tem Address [id number] [address] [place] [address] Care Team Providers Care Instantizer Operator Name Role Phone Noble Ferguson DO Primary Care Provider [phone] Allergies Active AllergyReactionsCriticalityNoted DateCommentsPenicillinsAnaphylaxis,Hives High2Sulfa (Sulfonamide Antibiotics)IbaxAvp4511/12/2014 Medications MedicationSigDispense QuantityRefillsLast FilledStart DateEnd DateStatus lisinopriL [...] directed every 30 (thirty) days.Active vitamin C/biotin (TQXF-MYHI-HLERW, VIT C-BIOTIN, ORAL) Take 2 tablets by mouth daily.Active TRELEGY ELLIPTA 200-62.5-25 mcg blister with device Inhale 1 puff in the morning.08/09/2022ctive Active Problems ProblemNoted DateDiagnosed LopuJhwogbzbz99/22/2023owel dwxqekpazbm53/22/2023 Breast lhnolr5008/30/2022oronary artery ztijjqw4208/30/20227999Vszdzhocomesut58/22/2023 Hqtwvuyznlbe47/22/2023Necrotizing wrkzkosnj13/08/2022 Immunizations ImmunizationAdministration DatesNext DueInfluenza High Dose Preservative Free IM 03/27/2017,03/21/2016Influenza, Trivalent, Zznktfkzwq97/01/2018 Family History Medical HistoryRelationNameCommentsStrokeBrotherHeart attackFatherColon cancer MotherBreast cancerSister 1DementiaSister 1Breast cancerSister 2Heart disease Sister 2CancerSonLung cancerSonRelationNameStatusCommentsBrotherOtherFather DeceasedMotherDeceasedSister 1AliveSister 2AliveSonDeceased (Age 58) Social History Tobacco UseTypesPacks/DayYears UsedDateSmoking Tobacco: EtlaveJfkyoeyyhz7Hlil: 2007Smokeless Tobacco: NeverAlcohol UseStandard Drinks/WeekCommentsNot Currently 0 (1 standard drink = 0.6 oz pure alcohol)ChildcareAnswerDate RecordedChildcare Lgbgqyf3711/20/2018EmploymentAnswerDate PmqlnrezNchevkqkauBvjdgpx55/12/2019 CommentsNoSex and Gender InformationValueDate RecordedSex Assigned at BirthNot on fileLegal UtgEadseu04/06/2015 11:52 AM EDTGender IdentityNot on file Sexual OrientationNot on file Last Filed Vital Signs Vital SignReadingTime TakenCommentsBlood Ejonwuso042/5804/ 10:58 AM EDT Dlvtl45857 10:55 AM CQUArkawkevmdr78.8 ??C (98.2 ??F)11/21/2021 12:35 PM EDTRespiratory Zkyx147911/21/2021 12:35 PM EDTOxygen Pwoclxebzp92%11/21/2021 12:35 PM EDTInhaled Oxygen Concentration--Kgjadv55 kg (183 lb)10/06/2022 10:55 AM EDT Irgnhe113.9 cm (5' 1 )10/06/2022 10:55 AM EDTBody Mass Index34.58010/06/2022 10:55 AM EDT Plan of Treatment Health MaintenanceDue DateLast DoneCommentsDepression Ntclcckcs97/07/1950Tobacco Nescxgpnn27/07/1950DTaP,Tdap and Td Vaccines (1 - Tdap)1957Zoster (Shingles) Vaccine (1 of 2)1957Fall Risk Uqrvkjcei21/07/2003RSV ( or age 60+ yrs) (1 - 1-dose 75+ series)2013COVID-19 Vaccine ( - season)509/, 09/07/2020, 08/16/2020Influenza Sgexwud7902/09/2025 03/06/2022, 03/11/2018, 03/27/2017, Additional history exists Goals GoalPatient Goal TypeAssociated ProblemsRecent ProgressPatient-Stated?Author <enter goal here> Yanna Cortes LSW Note: Evaluation of progress towards goal: discharge home vs SNF. Medical Devices Not on file Insurance Advance Directives * Full Code (Latest Code Status on File) Date ActivatedDate InactivatedComments11/16/2021 2:53 AM11/21/2021 7:25 PM Care Teams Team MemberRelationshipSpecialtyStart DateEnd Date Noble Ferguson, [address] [place] [address] PCP - GeneralInternal Medicine06/11/21
--- OUTSIDE RECORDS SUMMARY | 2025-05-28 09:13 | XMS_ITS | Clinical Summary ---
Author Organization [facility] Address [address] [place] [address] Phone Care Team Providers Care Wood Window And Door Craftsman Name Role Phone Noble Ferguson DO Primary Care Provider [phone] Social History Tobacco UseTypesPacks/DayYears UsedDateSmoking Tobacco: Never Assessed CommentsUnknownSex and Gender InformationValueDate RecordedSex Assigned at Not on fileLegal PzvHxhrkq21/24/2024 10:40 AM EDTGender IdentityNot on file Sexual [...] Date Noble Ferguson DO [address] [place] [address] PCP - GeneralInternal Medicine12/03/23
[2025-05-28 10:43] LABS: Alanine Aminotransferase 22 U/L (14-59); Albumin Globulin Ratio 1.1; Albumin Level 3.5 g/dL (3.4-5.0); Alkaline Phosphatase 81 U/L (46-116); Anion Gap 12.4; Aspartate Amino Transferase 23 U/L (15-37); Blood Urea Nitrogen 13.0 mg/dL (7.0-18.0); Calcium 9.1 mg/dL (8.5-10.1); Carbon Dioxide 25.6 mmol/L (21.0-32.0); Chloride 107 mmol/L (98-107); Cholesterol 135 mg/dL (<=200); Estimated GFR (African America >60 (>=60 mL/min/1.73m^2); Estimated GFR (Non-African Ame 54 (>=60 mL/min/1.73m^2); Globulin 3.1 g/dL; Glucose 107 mg/dL (74-106); HDL Cholesterol 55 mg/dL (40-60); Potassium 4.0 mmol/L (3.5-5.1); Sodium 141 mmol/L (136-145); Total Protein 6.6 g/dL (6.4-8.2); Triglycerides 162 mg/dL (<=150); VLDL CHOLESTEROL 32.4 mg/dL
== END 2025-05-28 09:08 | disposition home or self-care (01) ==
LOC: LAB 09:09
PROVIDERS: PCP Internal Medicine; Visit Provider Internal Medicine
DX: I12.9 Hypertensive chronic kidney disease with stage 1 through stage 4 chronic kidney disease, or unspecified chronic kidney disease (principal); N18.31 Chronic kidney disease, stage 3a; I25.10 Atherosclerotic heart disease of native coronary artery without angina pectoris; E78.00 Pure hypercholesterolemia, unspecified; E03.8 Other specified hypothyroidism; E06.3 Autoimmune thyroiditis
CPT/HCPCS: 36415; 80053; 80061

== ENCOUNTER 2025-05-28 09:13 | Outpatient (OUT) | payer MEDICARE, SELFPAY ==
[2025-05-28 09:54] LABS: Hematocrit 38.9 % (36.0-48.0); Hemoglobin 12.9 g/dL (12.0-16.0); Immature Granulocytes Abs Auto 0.03 10^3/uL (0.00-0.03); Immature Granulocytes Pct Auto 0.4 % (0.0-0.5); Lymphocytes Absolute Auto 1.3 10^3/uL (1.2-3.8); Mean Corpuscular HGB Conc 33.2 g/dL (29.9-35.2); Mean Corpuscular Hemoglobin 31.3 pg (26.7-34.0); Mean Corpuscular Volume 94.4 fL (81.0-99.0); Platelet Count 227 10^3/uL (150-450); Red Blood Count 4.12 10^6/uL (4.20-5.40); White Blood Count 7.4 10^3/uL (4.0-11.0)
[2025-05-28 11:05] LABS: Thyroid Stimulating Hormone 0.306 uIU/mL (0.358-3.740)
== END 2025-05-28 09:14 | disposition home or self-care (01) ==
LOC: LAB 09:16
PROVIDERS: PCP Internal Medicine
DX: R06.00 Dyspnea, unspecified (principal); R06.89 Other abnormalities of breathing; J44.9 Chronic obstructive pulmonary disease, unspecified; J30.89 Other allergic rhinitis
CPT/HCPCS: 36415; 82785; 84443; 85025

== ENCOUNTER 2025-05-28 13:18 | Outpatient (OUT) | payer MEDICARE, SELFPAY ==
--- OUTSIDE RECORDS SUMMARY | 2025-05-26 11:45 | XMS_ITS | Encounter Summary ---
Author Organization [facility] Address [address] [place] [address] Care Team Providers Care Retort Operator Name Role Phone Noble Ferguson DO Primary Care Provider [phone] Source Comments In the event this information is protected by the Federal Confidentiality of Alcohol and Drug AbusePatient Records regulations: The Federal rules restrict any use of the information to criminally investigate or prosecute any alcohol or drug abuse patient.[facility] Reason for Referral * Outpatient Procedure (Routine) - AuthorizedSpecialtyDiagnoses / Procedures Referred By ContactReferred To [facility] [place] Diagnoses Chronic obstructive pulmonary disease, unspecified COPD type (HCC) Dyspnea and respiratory abnormalities Procedures LUNG DIFFUSION CAPACITY (DLCO) [place] [address] [place] [address] Phone: tel: [facility] [place] [address] [place] [address] Referral IDStatusReasonStart DateExpiration DateVisits RequestedVisits [id number] Auto-Generated Referral / * Outpatient Procedure (Routine) - AuthorizedSpecialtyDiagnoses / Procedures Referred By ContactReferred To [facility] Diagnoses Chronic obstructive pulmonary disease, unspecified COPD type (HCC) Dyspnea and respiratory abnormalities Procedures [place] [address] [place] [address] Phone: tel: [address] [address] Referral IDStatusReasonStart DateExpiration DateVisits RequestedVisits [id number] Auto-Generated Referral * Outpatient Procedure (Routine) - AuthorizedSpecialtyDiagnoses / Procedures Referred By ContactReferred To [facility] Diagnoses Chronic obstructive pulmonary disease, unspecified COPD type (HCC) Dyspnea and respiratory abnormalities Procedures OXIMETRY WITH AMBULATION NONINVASIVE EAR/PULSE OXIMETRY MULTIPLE DETER Daina Mendez [place] [address] [place] [address] Phone: tel: [address] [address] Referral IDStatusReasonStart DateExpiration DateVisits RequestedVisits [id number] Auto-Generated Referral * Outpatient Procedure (Routine) - AuthorizedSpecialtyDiagnoses / Procedures Referred By ContactReferred To [facility] Diagnoses Chronic obstructive pulmonary disease, unspecified COPD type (HCC) Dyspnea and respiratory abnormalities Procedures SPIROMETRY WITH DILATOR IF OBSTRUCTED BRNCDILAT RSPSE SPMTRY PRE&POST-[place] [address] [place] [address] Phone: tel: [facility] [address] [place] [address] Referral IDStatusReasonStart DateExpiration DateVisits RequestedVisits [id number] Auto-Generated Referral / Reason for Visit * ReasonCommentsEstablished PatientCOPDShortness of Breath Encounter Details DateTypeDepartmentCare Team (Latest Contact Info)Wlowocwqswu64/ 11:45 AM ESTOffice Visit PULMONARY [address] [place] [address] [place] [address] [place] [address] Chronic obstructive pulmonary disease, unspecified COPD type (HCC) (Primary Dx); History of tobacco use; Dyspnea and respiratory abnormalities; Non-seasonal allergic rhinitis, unspecified trigger Social History Tobacco UseTypesPacks/DayYears UsedDateSmoking Tobacco: LgplfmUctanmgrux770 Smokeless Tobacco: NeverAlcohol UseStandard Drinks/WeekCommentsNo0 (1 standard drink = 0.6 oz pure alcohol)PHQ-2AnswerDate RecordedPHQ-2 yxxld794rea Deprivation IndexAnswerDate RecordedNational Score (1-100), lower number is lower avsy191603/10/2025State Score (1-10), lower number is lower kski49503/10/2025 Data from: https://www.neighborhoodatlas.[facility]/. Last address used for rbbxj[address]wiz[address]/10/[address]25CommentsNoSex and Gender InformationValueDate RecordedSex Assigned at BirthNot on fileLegal SexFemale 05/12/2012 9:14 AM ESTGender IdentityNot on fileSexual OrientationNot on file documented as of this encounter Last Filed Vital Signs Vital SignReadingTime TakenCommentsBlood Xyttyazq646/7605/26/2025 11:55 AM EST Wftnk160305/26/2025 11:55 AM NGQRycwsodaknz33.6 ??C (97.8 ??F)05/26/2025 11:55 AM ESTRespiratory Wrfc370707/27/2024 11:55 AM ESTOxygen Whmhcllvqq17%05/26/2025 11:55 AM ESTInhaled Oxygen Concentration--Veatzg66.6 kg (180 lb)05/26/2025 11:55 AM ESTHeight--Body Mass Index32.9105 12:57 PM EDTdocumented in this encounter Functional Status * Are you deaf or do you have serious difficulty hearing?AnswerDate of DbiyzrbiryNxcadaZn72/04/2015 11:11 AM Clarisse Newby * Are you blind or do you have serious difficulty seeing, even when wearing glasses?AnswerDate of RtdcguncorRnmtvoXp29/04/2015 11:11 AM Clarisse Newby * Do you have serious difficulty walking or climbing stairs?AnswerDate of ItksyzimajQtxbbgLsd11/04/2015 11:11 AM Clarisse Newby * Do you have difficulty dressing or bathing?AnswerDate of AssessmentAuthorNo 01/12/2015 11:11 AM Clarisse Newby * Because of a physical, mental, or emotional condition, do you have difficulty doing errands alone such as visiting a doctor's office or shopping?AnswerDate of MjpziqgmsgZnjhfkXd36/04/2015 11:11 AM Clarisse Newby documented as of this encounter Mental Status * Because of a physical, mental, or emotional condition, do you have serious difficulty concentrating, remembering, or making decisions?AnswerEntry Date BiejybJq67/04/2015 11:11 AM Clarisse Newby documented in this [...] ER/MD+ HER2 COPD (chronic obstructive pulmonary disease) ([facility]) Hypertension Hypothyroidism : PAST SURGICAL HISTORY Procedure [...] Mendez MD Pulmonary and Critical Care Medicine [facility] [place] May 26, 2025 Recording using [employer] software for draft documentation of the visit was discussed with the patient/authorized sales representative womens health; all questions welcomed and answered. Patient/authorized sales representative womens health agreed to proceed [1] Social History Tobacco Use Smoking status: Former Current packs/day: 1.00 Average packs/day: 1 pack/day for 55.0 years (55.0 ttl pk-yrs) Types: Cigarettes Smokeless tobacco: Never Substance Use Topics Alcohol use: No Drug use: No documented in this encounter Plan of Treatment DateTypeDepartmentCare Team (Latest Contact Info)Jdfojrrbvtm82/17/2026 9:00 AM ESTProcedure PULMONARY [address] [facility] [place] [address] Follow up after idndesa9307/28/2025 9:15 AM ESTProcedure PULMONARY [address] [facility] [place] [address] Follow up after uhdcasf9807/28/2025 9:30 AM ESTProcedure PULMONARY [address] [place] [address] Follow up after vatygen5807/28/2025 10:00 AM ESTProcedure PULMONARY [address] [facility] [place] [address] Follow up after swricfe2407/28/2025 10:30 AM ESTOffice Visit PULMONARY [address] [facility] [place] [address] [place] [address] [place] [address] Follow up after testingNameTypePriorityAssociated DiagnosesOrder [...]
--- OUTSIDE RECORDS SUMMARY | 2025-05-28 13:21 | XMS_ITS | Clinical Summary ---
Author Organization [facility] Address [address] [place] [address] Care Team Providers Care Vice President Of Consulting Services Name Role Phone Noble Ferguson DO Primary Care Provider [phone] Allergies Active AllergyReactionsCriticalityNoted EmogFmgbfxskIrctrbordjo65/08/2023Sulfa Wqynxnfbzrh86/08/2023 Medications MedicationSigDispense QuantityRefillsLast FilledStart DateEnd DateStatus amLODIPine [...] BY MOUTH ONCE DAILY ON AN EMPTY CCCUPEJ7604/04/2023ctive lisinopril 20 MG tablet Take 20 mg [...] Problems ProblemNoted DateDiagnosed DateOpen wound of right nbdtev8304/18/2023 Immunizations ImmunizationAdministration DatesNext DueInfluenza, High Dose Seasonal, Preservative Free03/27/2017,03/21/2016Influenza, Seasonal, Quadrivalent, Rjqdohhpzu26/26/2022Influenza, trivalent, mvenizjfnz16/01/2018 Family History RelationNameStatusCommentsFatherDeceasedMotherDeceased Social History Tobacco UseTypesPacks/DayYears UsedDateSmoking Tobacco: FormerCigarettesQuit: 2008Alcohol UseStandard Drinks/WeekCommentsNot Currently0 (1 standard drink = 0.6 oz pure alcohol)CommentsUnknownSex and Gender InformationValueDate RecordedSex Assigned at BirthNot on fileLegal XoxMwcgkh67/15/2023 7:21 PM EDT Gender IdentityNot on fileSexual OrientationNot on file Last Filed Vital Signs Vital SignReadingTime TakenCommentsBlood Mnqxmcta533/7604/18/2023 1:27 PM EST Pulse--Temperature--Respiratory Rate--Oxygen Saturation--Inhaled Oxygen Concentration--Pausqg55.6 kg (180 lb)04/18/2023 1:27 PM PYPQmevbc903.4 cm (5') 04/18/2023 1:27 PM ESTBody Mass Index35.15106/18/2022 1:27 PM EST Plan of Treatment Not on file Insurance # [place] [address] Care Teams Team MemberRelationshipSpecialtyStart DateEnd Noble Ferguson DO PCP - GeneralInternal Ubidltus77/6/23
--- OUTSIDE RECORDS SUMMARY | 2025-05-28 13:21 | XMS_ITS ---
Author Organization [facility] Address [address] [place] [address] Care Team Providers Care Gizzard Skin Remover Name Role Phone Noble Ferguson DO Primary Care Provider [phone] Active Problems ProblemNoted DateDiagnosed DateCAD in wrangell nszttj1411/21/2024 Assessment & Plan (11/22/2024 1:44 AM EDT): - Severe 80% stenosis in the mid circumflex reduced to 0% by a Synergy XD drug- eluting stent -Previous stent to the RCA - DAPT for 12 months, then aspirin 81 mg daily for life. Statin therapy for life. -Follow-up A1c and lipids Former tobacco use09/26/2024Restrictive lung yeoghfd5709/26/2024hronic diastolic congestive heart ocumokj5509/26/2024 Assessment & Plan (11/22/2024 1:44 AM EDT): Not in exacerbation Shortness of mpckdf2609/26/2024hest pain12/31/2023isorder of nail12/31/2023Heart failure with preserved ejection fraction, borderline, class III12/31/2023Lower extremity edema12/31/2023cute on chronic heart failure with preserved ejection fraction (HFpEF)11/23/20232450Kddip48/14/2024History of radiation lasoqjwi57/14/2024 Zkjlzntpripqvx80/14/2024 Assessment & Plan (11/22/2024 1:44 AM EDT): Continue Synthroid Nonhealing surgical wound11/23/2023ernicious dhewgx1211/23/20238338Dpmgfttz88/14/2024 Stage 3a chronic kidney jsxwcgf6511/23/2023Open wound of right fovaba1904/18/2023Hx of heart artery stent04/11/20232281Wnptfvhch03owel obstruction oronary artery iilvaba5308/30/20222795Teymvpoiohalhn80/22/2023 04/11/20231180Mdcxxyadyobe15reast ixzsik64 Necrotizing khdowfqaw48yspnea on jqlkqzyz45 Status post percutaneous transluminal coronary qceuyqqcmed07 Chronic obstructive lung pxusnmq05 Assessment & Plan (11/22/2024 1:44 AM EDT): - Not in exacerbation, continue home inhalers History of breast vzaeun62 Current Treatment and Therapy Plans No current plan information found. Past Treatment and Therapy Plans No past plan information found. Lifetime Dose Tracking * ChemicalLifetime DoseAutomatic EntryManual EntryFluoro Time26.34 minutes0 tivlbmt94.34 minutesAir Kerma1,712.73 mGy0 mGy1,712.73 mGyDose Area Product 151,743 mGy-cm20 mGy-qe0520,743 mGy-cm2
--- OUTSIDE RECORDS SUMMARY | 2025-05-28 13:21 | XMS_ITS | Clinical Summary ---
Author Organization [employer] Address [id number] [address] [place] [address] Care Team Providers Care Electronic Specialist Name Role Phone Noble Ferguson DO Primary Care Provider [phone] Allergies Active AllergyReactionsCriticalityNoted DateCommentsPenicillinsAnaphylaxis,Hives High2Sulfa (Sulfonamide Antibiotics)YxegSkt3711/12/2014 Medications MedicationSigDispense QuantityRefillsLast FilledStart DateEnd DateStatus lisinopriL [...] directed every 30 (thirty) days.Active vitamin C/biotin (HHAP-JNII-EAPCM, VIT C-BIOTIN, ORAL) Take 2 tablets by mouth daily.Active TRELEGY ELLIPTA 200-62.5-25 mcg blister with device Inhale 1 puff in the morning.08/09/2022ctive Active Problems ProblemNoted DateDiagnosed PqigRbbvnwnot91/22/2023owel hjtukjwkmxl69/22/2023 Breast ucsbnt5108/30/2022oronary artery udnhwbu6208/30/20225554Cfegaulebyachg54/22/2023 Yvwmkiwinnyj10/22/2023Necrotizing euhdlxnim07/08/2022 Immunizations ImmunizationAdministration DatesNext DueInfluenza High Dose Preservative Free IM 03/27/2017,03/21/2016Influenza, Trivalent, Wnqwgovjum62/01/2018 Family History Medical HistoryRelationNameCommentsStrokeBrotherHeart attackFatherColon cancer MotherBreast cancerSister 1DementiaSister 1Breast cancerSister 2Heart disease Sister 2CancerSonLung cancerSonRelationNameStatusCommentsBrotherOtherFather DeceasedMotherDeceasedSister 1AliveSister 2AliveSonDeceased (Age 58) Social History Tobacco UseTypesPacks/DayYears UsedDateSmoking Tobacco: VrzlcmXytpqtgerv5Fvht: 2007Smokeless Tobacco: NeverAlcohol UseStandard Drinks/WeekCommentsNot Currently 0 (1 standard drink = 0.6 oz pure alcohol)ChildcareAnswerDate RecordedChildcare Rssgpop0911/20/2018EmploymentAnswerDate AmkigqtqNuoolnutvuOwmfucy48/12/2019 CommentsNoSex and Gender InformationValueDate RecordedSex Assigned at BirthNot on fileLegal XngUfkbrr21/06/2015 11:52 AM EDTGender IdentityNot on file Sexual OrientationNot on file Last Filed Vital Signs Vital SignReadingTime TakenCommentsBlood Wsqdmycl261/5804/ 10:58 AM EDT Jptep27760 10:55 AM MITFzulvuzqnou50.8 ??C (98.2 ??F)11/21/2021 12:35 PM EDTRespiratory Fhxt191211/21/2021 12:35 PM EDTOxygen Skoewxcsze79%11/21/2021 12:35 PM EDTInhaled Oxygen Concentration--Xubecy20 kg (183 lb)10/06/2022 10:55 AM EDT Hgrhvq047.9 cm (5' 1 )10/06/2022 10:55 AM EDTBody Mass Index34.58010/06/2022 10:55 AM EDT Plan of Treatment Health MaintenanceDue DateLast DoneCommentsDepression Nhfuwrdkv85/07/1950Tobacco Ipujxzvwx41/07/1950DTaP,Tdap and Td Vaccines (1 - Tdap)1957Zoster (Shingles) Vaccine (1 of 2)1957Fall Risk Czkzbvjwe74/07/2003RSV ( or age 60+ yrs) (1 - 1-dose 75+ series)2013COVID-19 Vaccine ( - season)509/, 09/07/2020, 08/16/2020Influenza Ozwrdsb4402/09/2025 03/06/2022, 03/11/2018, 03/27/2017, Additional history exists Goals GoalPatient Goal TypeAssociated ProblemsRecent ProgressPatient-Stated?Author <enter goal here> Yanna Cortes LSW Note: Evaluation of progress towards goal: discharge home vs SNF. Medical Devices Not on file Insurance Advance Directives * Full Code (Latest Code Status on File) Date ActivatedDate InactivatedComments11/16/2021 2:53 AM11/21/2021 7:25 PM Care Teams Team MemberRelationshipSpecialtyStart DateEnd Date Noble Ferguson, [address] [place] [address] PCP - GeneralInternal Medicine06/11/21
--- OUTSIDE RECORDS SUMMARY | 2025-05-28 13:21 | XMS_ITS | Encounter Summary ---
Author Organization [facility] Address [facility] [place] [address] Care Team Providers Care Garage Construction Equipment Mechanic Name Role Phone Noble Ferguson DO Primary Care Provider Source Comments In the event this information is protected by the Federal Confidentiality of Alcohol and Drug AbusePatient Records regulations: The Federal rules restrict any use of the information to criminally investigate or prosecute any alcohol or drug abuse patient.[facility] Encounter Details DateTypeDepartmentCare Team (Latest Contact Info)Wrzmbnqupok46/16/2025Travel Social History Tobacco UseTypesPacks/DayYears UsedDateSmoking Tobacco: TctfisNabmngttjv666 Smokeless Tobacco: NeverAlcohol UseStandard Drinks/WeekCommentsNo0 (1 standard drink = 0.6 oz pure alcohol)PHQ-2AnswerDate RecordedPHQ-2 hgzdo790rea Deprivation IndexAnswerDate RecordedNational Score (1-100), lower number is lower nruy537103/10/2025State Score (1-10), lower number is lower toxu77003/10/2025 Data from: https://www.neighborhoodatlas.medicine.[facility].edu/. Last address used for faarpdocoec[address]/10/2025CommentsNoSex and Gender InformationValueDate RecordedSex Assigned at BirthNot on fileLegal SexFemale 05/12/2012 9:14 AM ESTGender IdentityNot on fileSexual OrientationNot on file documented as of this encounter Functional Status * Are you deaf or do you have serious difficulty hearing?AnswerDate of LuncnxiiacRpssydDr89/04/2015 11:11 AM Clraisse Newby * Are you blind or do you have serious difficulty seeing, even when wearing glasses?AnswerDate of AwhsouktkkAproqbWh11/04/2015 11:11 AM Clarisse Newby * Do you have serious difficulty walking or climbing stairs?AnswerDate of UyfrybskuhFczxfoUdm69/04/2015 11:11 AM Clarisse Newby * Do you have difficulty dressing or bathing?AnswerDate of AssessmentAuthorNo 01/12/2015 11:11 AM Clarisse Newby * Because of a physical, mental, or emotional condition, do you have difficulty doing errands alone such as visiting a doctor's office or shopping?AnswerDate of MkvqvhujriIzquadBf61/04/2015 11:11 AM Clarisse Newby documented as of this encounter Mental Status * Because of a physical, mental, or emotional condition, do you have serious difficulty concentrating, remembering, or making decisions?AnswerEntry Date FpjoybSi34/04/2015 11:11 AM Clairsse Newby documented in this encounter Plan of Treatment DateTypeDepartmentCare Team (Latest Contact Info)Wrokmngcfmp01/17/2026 9:00 AM ESTProcedure PULMONARY [address] [place] [address] Follow up after xwubkxt0607/28/2025 9:15 AM ESTProcedure PULMONARY [address] [place] [address] Follow up after lnuhtwx7907/28/2025 9:30 AM ESTProcedure PULMONARY [address] [place] [address] Follow up after fkbolup1907/28/2025 10:00 AM ESTProcedure PULMONARY [address] [place] [address] Follow up after lgplnqr4007/28/2025 10:30 AM ESTOffice Visit PULMONARY [address] [place] [address] [place] [address] [place] [address] Follow up after testingdocumented as of this encounter Visit Diagnoses Not on filedocumented in this encounter Care Teams Team MemberRelationshipSpecialtyStart DateEnd Date Noble Ferguson DO PCP - GeneralInternal Medicine11/09/14documented as of this encounter
--- OUTSIDE RECORDS SUMMARY | 2025-05-28 13:21 | XMS_ITS | Clinical Summary ---
Author Organization [facility] Address [address] [place] [address] Care Team Providers Care Application Support Name Role Phone Noble Ferguson DO Primary Care Provider [phone] Allergies Active AllergyReactionsCriticalityNoted DateCommentsPenicillinsAnaphylaxis,Hives ,Other,EoqhohkHjev56/04/2015Sulfa (Sulfonamide Antibiotics)Hives,Other,Rash, OvawxvsQsj38/04/2015 Medications MedicationSigDispense QuantityRefillsLast FilledStart DateEnd DateStatus levothyroxine (Synthroid, Levoxyl) 88 mcg tablet 1 (one) time each day at the same time.Active aspirin 81 mg EC tablet Take 1 tablet by mouth in the morning.Active mivlfkifrus-pbziadqyj-adlpadwv 200-62.5-25 mcg blister with device INHALE 1 PUFF ONCE DAILY08/09/2022ctive temazepam (Restoril) 30 mg capsule TAKE ONE CAPSULE BY MOUTH ONCE DAILY AT KLVWQQK2309/24/2020ctive cyanocobalamin (Vitamin B-12) 1,000 mcg/mL oral liquid [...] 24 hr tablet Indications:Coronary artery disease involving standing rock coronary artery of standing rock heart without angina pectorisTAKE 1/2 TABLET BY MOUTH DAILY DIRECTED 15 tablet 1005Active doxazosin (Cardura) 4 mg tablet Indications:Primary hypertensionTake 2 tablets (8 mg) by mouth at bedtime. 180 tablet ctive atorvastatin (Lipitor) 40 mg tablet Indications:Coronary artery disease, unspecified vessel or lesion type, unspecified whether angina present, unspecified whether standing rock or transplanted heartTAKE 1 TABLET (40 MG) BY MOUTH IN THE MORNING. 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 Do not crush or chew. 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 90 tablet ctive Active Problems ProblemNoted DateDiagnosed DateCAD in standing rock dyjihb0611/21/2024 Assessment & Plan (11/22/2024 1:44 AM EDT): - Severe 80% stenosis in the mid circumflex reduced to 0% by a Synergy XD drug- eluting stent -Previous stent to the RCA - DAPT for 12 months, then aspirin 81 mg daily for life. Statin therapy for life. -Follow-up A1c and lipids Former tobacco use09/26/2024Restrictive lung uzyfpyh4709/26/2024hronic diastolic congestive heart uqnfbbu4109/26/2024 Assessment & Plan (11/22/2024 1:44 AM EDT): Not in exacerbation Shortness of kujbbj9009/26/2024hest pain12/31/2023isorder of nail12/31/2023Heart failure with preserved ejection fraction, borderline, class III12/31/2023Lower extremity edema12/31/2023cute on chronic heart failure with preserved ejection fraction (HFpEF)11/23/20231643Lrwqp18/14/2024History of radiation oeajjoqh59/14/2024 Vhivyczajjwevk72/14/2024 Assessment & Plan (11/22/2024 1:44 AM EDT): Continue Synthroid Nonhealing surgical wound11/23/2023ernicious qmvfpq3411/23/20230986Amuqihcv87/14/2024 Stage 3a chronic kidney zwzmnnz0411/23/2023Open wound of right jsvmda9304/18/2023Hx of heart artery stent04/11/20230819Chnunnniy38owel obstruction oronary artery gelilms2008/30/20227005Yxcrbmnunsbxcq04/22/2023 04/11/20233267Gsnwqvgrndxt18reast bamtho18/06/2022 Necrotizing fuwjpnjxb77yspnea on tijmhhoz80/06/2022 Status post percutaneous transluminal coronary txazipuwcxq33 Chronic obstructive lung gwaacye00 Assessment & Plan (11/22/2024 1:44 AM EDT): - Not in exacerbation, continue home inhalers History of breast tigxsm93 Family History Medical HistoryRelationNameCommentsHypertensionBrotherNo Known ProblemsFatherNo Known ProblemsMotherRelationNameStatusCommentsBrotherDeceasedFatherDeceased MotherDeceased Social History Tobacco UseTypesPacks/DayYears UsedDateSmoking Tobacco: FormerCigarettesQuit: 2008Smokeless Tobacco: Never Tobacco Cessation:Counseling Given: Not Answered Alcohol UseStandard Drinks/WeekCommentsNever0 (1 standard drink = 0.6 oz pure alcohol)[facility] UtilitiesAnswerDate RecordedIn the past 12 months has the [employer] gas, oil, or water [facility] threatened to shut off services in your [...] homeless or living in a intermediate (including now)?No11/21/2024 Hunger Vital SignAnswerDate RecordedWithin the past 12 months, you worried that your food would run out before you got the money to buymore.Never true11/21/2024 Ran Out of Food in the Last YearNot on file11/21/2024CommentsUnknownSex and Gender InformationValueDate RecordedSex Assigned at FuimjBgpgfj35/13/2025 11:45 AM EDTLegal YhoLypwxi29/30/2022 12:13 AM EDTGender IdentityFemale 11/21/2024 11:45 AM EDTSexual OrientationHeterosexual or Avecdkov58/13/2025 11:45 AM EDT Last Filed Vital Signs Vital SignReadingTime TakenCommentsBlood Qtirbdad511/64012/29/2024 1:09 PM EDT Uvarc5585/21/2025 1:09 PM GLFGjknjtifrju49.3 ??C (97.3 ??F)11/22/2024 8:00 AM EDTRespiratory Qdqw571011/22/2024 8:00 AM EDTOxygen Buzbbdkmps47%12/29/2024 1:09 PM EDTInhaled Oxygen Concentration--Qqpmon15.6 kg (180 lb)12/29/2024 1:09 PM EDT Znpmpt978.9 cm (5' 1 )12/29/2024 1:09 PM EDTBody Mass Index34.01012/29/2024 1:09 PM EDT Plan of Treatment Health MaintenanceDue DateLast DoneCommentsMedicare Annual Wellness (AWV) 1940Depression Riisuwfzi83/07/1950Pneumococcal Vaccine: 50+ Years (1 of 2 - PCV)7Adult Dnxsdvo2703/17/1960Zoster Vaccines (1 of 2)1988COVID- 19 Vaccine (4 - season)509/, 09/07/2020, 08/16/2020 Influenza Vaccine (#1)/03/2024, 03/06/2022, 03/11/2018, Additional history existsFall Risk Dutccrybx50/14/40065811/22/2024HIB VaccinesAged OutNo longer eligible based on patient's [...] Marylin Issa Mr 2.25 X 24 - [id number] Implanted:Qty: 1 on 11/21/2024 by Juan F [facility]ep[facility] Eluting StentLeft: [employer]Boston [employer] [id number]/12/[id number] / / [id number] Insurance Advance Directives * Full Code (Latest Code Status on File) Date ActivatedDate InactivatedComments11/21/2024 9:51 PM11/22/2024 4:43 PM Care Teams Team MemberRelationshipSpecialtyStart DateEnd Date Noble Ferguson DO [address] [place] [address] PCP - Gyvceeo80/31/23
--- OUTSIDE RECORDS SUMMARY | 2025-05-28 13:21 | XMS_ITS | Clinical Summary ---
Author Organization [facility] Address [facility] [place] [address] Care Team Providers Care Baseboard Heating Installer Name Role Phone Noble Ferguson DO Primary Care Provider [phone] Allergies Active AllergyReactionsCriticalityNoted BmhjNmhjzjpsYpcrlovvntjXlrjqwh01/04/2015 Sulfa (Sulfonamide Antibiotics)Suzfgjr5111/12/2014 Medications MedicationSigDispense QuantityRefillsLast FilledStart DateEnd DateStatus lisinopril [...] external solution APPLY TO SCALP NEEDED FOR XNOJSWXER19/19/2021ctive inulin (FIBER GUMMIES ORAL) Take by mouth.Active [...] NAILS WITH BIOTIN PO) Take by mouth.Active zflwrsvskt-nmqahpxo-khcftqmqht (BREZTRI AEROSPHERE) 160-9-4.8 mcg/actuation HFA aerosol inhaler [...] Active Problems ProblemNoted DateDiagnosed DateHistory of breast hlmlmz5010/19/2015Malignant neoplasm of right female buubue4904/14/2015Malignant neoplasm of female breast 11/18/2014 Encounters DateTypeDepartmentCare JsxoEnpgotstqtg90/16/2025 11:45 AM ESTOffice Visit PULMONARY [address] [place] [address] [place] [address] Karlie Mendez MD Chronic obstructive pulmonary disease, unspecified COPD type (HCC) (Primary Dx); History of tobacco use; Dyspnea and respiratory abnormalities; Non-seasonal allergic rhinitis, unspecified urgjdkc8605/26/20253569Vhnmqh24/30/2025 1:00 PM EDTOffice Visit PULMONARY [address] [place] [address] [place] [phone] Karlie Mendez MD Chronic obstructive pulmonary disease, unspecified COPD type (HCC) (Primary Dx); History of tobacco use03/10/2025 12:30 PM EDTProcedure PULMONARY [address] [place] [address] [place] [address] Diajvrvyot32/30/2025 11:10 AM EDT - 03/10/2025 11:59 PM EDTHospital Encounter Radiology [address] [place] [address] Dyspnea on exertion [R06.09] Discharge Disposition: Home03/10/20256528Altshs12/26/2025H&P External-NonCCF Provider, External, LASHAY 03/06/2025Orders Only Cancer Appts [address] [place] [address] Karlie Mendez MD Dyspnea on exertion (Primary Dx)from Last 3 Months Immunizations ImmunizationAdministration DatesNext DueCOVID-19 original vaccine, age 12+ yr, monovalent (PFIZER-BIONTdeviantART - PURPLE TOP)03/07/2021,09/07/2020,08/16/2020 influenza (HD-IIV3) vaccine, age 65+ yr, high dose, trivalent, PF (FLUZONE HIGH-DOSE)03/27/2017,03/21/2016influenza (aIIV3) vaccine, age 65+ yr, trivalent, PF (FLUAD)03/11/2018 Social History Tobacco UseTypesPacks/DayYears UsedDateSmoking Tobacco: LlfukkXebrftbukm059 Smokeless Tobacco: NeverAlcohol UseStandard Drinks/WeekCommentsNo0 (1 standard drink = 0.6 oz pure alcohol)PHQ-2AnswerDate RecordedPHQ-2 ctdrv871rea Deprivation IndexAnswerDate RecordedNational Score (1-100), lower number is lower rrby102303/10/2025State Score (1-10), lower number is lower joor47103/10/2025 Data from: https://www.neighborhoodatlas.medicine.[facility].edu/. Last address used for dzprcmitqaw[address]03/10/2025CommentsNoSex and Gender InformationValueDate RecordedSex Assigned at BirthNot on fileLegal SexFemale 05/12/2012 9:14 AM ESTGender IdentityNot on fileSexual OrientationNot on file Last Filed Vital Signs Vital SignReadingTime TakenCommentsBlood Hzvtttqz031/7612/ 11:55 AM EST Xotsl945605/26/2025 11:55 AM ZPKTpewqsbwmvp46.6 ??C (97.8 ??F)05/26/2025 11:55 AM ESTRespiratory Spym711907/27/2024 11:55 AM ESTOxygen Ecsyayyzpp52%05/26/2025 11:55 AM ESTInhaled Oxygen Concentration--Xmgqht70.6 kg (180 lb)05/26/2025 11:55 AM LJXPiasta161.5 cm (5' 2.01 )10/19/2021 12:57 PM EDTBody Mass Index32.91 10/19/2021 12:57 PM EDT Plan of Treatment DateTypeDepartmentCare Team (Latest Contact Info)Qsuxkoixcsl38/17/2026 9:00 AM ESTProcedure PULMONARY [address] [facility] [place] [id number] Follow up after gtwpmdi9307/28/2025 9:15 AM ESTProcedure PULMONARY [address] [place] [address] Follow up after dejutuz7907/28/2025 9:30 AM ESTProcedure PULMONARY [address] [facility] [address] [facility] [place] [address] Follow up after pdljyfj7407/28/2025 10:00 AM ESTProcedure PULMONARY [address] [facility] [address] [facility] [place] [address] Follow up after xtwirni3707/28/2025 10:30 AM ESTOffice Visit PULMONARY [address] [place] [address] [place] [address] [place] [address] Follow up after testingHealth MaintenanceDue DateLast DoneCommentsAnxiety Ndfshgfyc86/07/1956Depression Yzcgtyiaz01/07/1956Shingrix Vaccine (1 of 2) 1988Medicare Annual Wellness Visit06/11/1996Bone Density Screening 2003RSV Vaccine (1 - 1-dose 75+ series)2013DTaP,Tdap,Td Vaccine (1 - Tdap)dvance Directive Daieimuqmn42/01/2025Covid-19 Vaccine ( season)509/, 09/07/2020, 1Diabetes Kzfhadgwt87/14/119716/, 11/21/2024, 05/17/2023, Additional history exists Pneumococcal Vaccine: 50+Txjbxzqaz49/14/2015, 04/28/2009Influenza Vaccine Nefeksutc66/15/2025, 02/19/2024, 03/26/2023, Additional history exists Procedures Procedure NamePriorityDate/TimeAssociated DiagnosisCommentsEXTERNAL CARDIOLOGY 05/27/2025 8:57 AM EST EXTERNAL SHZEGLWWJP11/17/2025 8:57 AM EST EXTERNAL GVGVJEEVGL17/08/2025 3:34 PM EDT SPIROMETRY WITH DILATOR IF JKGKXMFIJJEchfviw04/30/2025 12:38 PM EDT Dyspnea on exertion XR CHEST 2V FRONTAL/CDYNouysnl51/30/2025 11:23 AM EDT Dyspnea on exertion EXTERNAL JAVJHSK4203/06/2025 3:24 PM EDT EXTERNAL USQSCUANB19/26/2025 3:[address] OUTSIDE CD DICOM WOWGAN3902/27/2025 BASIC METABOLIC AKPHXDkgygng37/04/2019 10:54 AM EST Malignant neoplasm of breast [...] PREDICTED (%)78%PULMONARY FUNCTION LABFEV1/FVC LLN (%)64%PULMONARY FUNCTION XYSTMR34% PRE (L/S)1.63L/SPULMONARY FUNCTION LAB FEF25% POST (L/S)1.55L/SPULMONARY FUNCTION GICPWF49% PRE (L/S00.09L/SPULMONARY FUNCTION YYMYYI23% POST (L/S)0.09L/SPULMONARY FUNCTION DHGVYW83% PREDICTED (L/S)0.25L/SPULMONARY FUNCTION DZXTZI25% LLN (L/S)0.08L/SPULMONARY FUNCTION RJSWHY24% ULN (L/S)0.81L/SPULMONARY FUNCTION WJEALW75-55% PRE (L/S)0.24L/S PULMONARY FUNCTION DCTQAC94-02% POST (L/S)0.25L/SPULMONARY FUNCTION XVGMCN74- 75% PREDICTED (L/S)1.26L/SPULMONARY FUNCTION CBKAAP26-98% LLN (L/S)0.49L/S PULMONARY FUNCTION LABPEF PRE (L/S)3.32L/SPULMONARY FUNCTION LABPEF POST (L/S) 2.88L/SPULMONARY FUNCTION LABPEF LLN (L/S)1.98L/SPULMONARY FUNCTION LABPEF ULN (L/S)5.00L/SPULMONARY FUNCTION LABFET PRE (S)11.32SPULMONARY FUNCTION LABFET POST (S)12.09SPULMONARY FUNCTION LABSpecimen (Source)Anatomical Location / LateralityCollection Method / VolumeCollection TimeReceived Time03/10/2025 12:38 PM EDT Narrative PULMONARY FUNCTION LAB - 03/11/2025 11:01 AM EDT [facility] ? [address] [place] [address] [place] [address] ? Test Date: ? 2025-03-10 Pat Name: ?NORA GIBBS ? Department: ?Room: ? Gender: ?Female ?Wet Pour Supervisor: ? : ? 1940 ?Requested By: ?? Order Number: ??[id number] ? Reading MD: ?Sadie Jones MD ? [...] 11:01:02 EDT by Sadie Jones MD ID: [id number] ?Name: NORA GIBBS ?Race: White Ht: 60.08 in ?Wt: 173.28 lbs ?Age: 84 Gender: Female ?: 1940 ?Dx: Other forms of dyspnea Smoking Hx: Non-smoker ?Doctor: KARLIE MENDEZ Test Date: 03/10/2025 ?Site: [facility] ?Tech: [employer] ?PRE-BRONCH ? POST-BRONCH ?[place] ?LLN ?? Pred [...] ? FIVC ?1.53 ? 1.44 ?-5 ? NWC44-55 ?0.24 ?? 0.49 ?? 1.26 ?? 2.48 [...] OrganizationAddressCity/State/ZIP CodePhone Number PULMONARY FUNCTION LAB [address] [place] [address] * XR CHEST 2V FRONTAL/LAT (03/10/2025 11:23 [...] any questions regarding this interpretation, please call [phone]. If you are unable to reach us at the number above, please feel free to contact [facility] at [phone]. Narrative 03/10/2025 1:46 PM EDT * * [...] Procedure Note Provider, [facility] - 03/10/2025 * * *Final Report* * [...] any questions regarding this interpretation, please call [phone]. If you are unable to reach us at the number above, please feel free to contact [facility] at [phone]. Authorizing ProviderResult TypeResult StatusRenee Andrea MDRAD-PAMAFinal Result [...] AM EDT Images were obtained outside of [facility] Procedure Note Provider, [facility] - 03/09/2025 Images were obtained outside of [facility] Authorizing ProviderResult TypeResult StatusCcf ProviderRADIOLOGYFinal Result * (ABNORMAL) BASIC METABOLIC PNL (04/14/2019 10:54 AM EST)ComponentValueRef RangeTest MethodAnalysis TimePerformed AtPathologist DlgyyivhlCsxlnad915(H)74 - 99 mg/dL04/14/2019 11:25 AM ESTSelect [facility] Comment: The [place] Diabetes Association (ADA) provides guidance for cutoff [...] Standards of Medical Care in Diabetes 2016, [place] Diabetes Association. Diabetes Care. 2016.39(Suppl 1). BFU473 - 21 mg/dL04/14/2019 11:25 AM [facility] Creatinine0.920.58 - 0.96 mg/dL04/14/2019 11:25 AM [facility] OxxwTdvgmp922110 - 144 mmol/L106/14/2018 11:25 AM [facility] CarePotassium4.53.7 - 5.1 mmol/L106/14/2018 11:25 AM [facility] TagqUuhtbpid908(H)97 - 105 mmol/L 04/14/2019 11:25 AM [facility] OudhNI592(L)22 - 30 mmol/L106/14/2018 11:25 AM [facility] CareAnion Gap14 9 - 18 mmol/L106/14/2018 11:25 AM [facility] Calcium9.78.5 - 10.2 mg/dL04/14/2019 11:25 AM [facility] CareeGFR->6004/14/2019 11:25 AM [facility] CareeGFR-All Other Races59.04/14/2019 11:25 AM [facility] CareComment: eGFR (Estimated GFR) Units [...] Pepe DOLABORATORY Final ResultPerforming OrganizationAddressCity/State/ZIP CodePhone Number [facility] [address] [place] [address] [facility] [address] [place], [place] from Last 3 Months or Most Recently Relevant to Health Maintenance Insurance Care Teams Team MemberRelationshipSpecialtyStart DateEnd Noble Ferguson DO PCP - GeneralInternal Medicine11/09/14
--- OUTSIDE RECORDS SUMMARY | 2025-05-28 13:21 | XMS_ITS | Clinical Summary ---
Author Organization [facility] Address [address] [place] [address] Phone Care Team Providers Care Auto Air Conditioning Installer Name Role Phone Noble Ferguson DO Primary Care Provider [phone] Social History Tobacco UseTypesPacks/DayYears UsedDateSmoking Tobacco: Never Assessed CommentsUnknownSex and Gender InformationValueDate RecordedSex Assigned at Not on fileLegal JfeNbwvmw56/24/2024 10:40 AM EDTGender IdentityNot on file Sexual [...] Date Noble Ferguson DO [address] [place] [address] PCP - GeneralInternal Medicine12/03/23
--- NOTE | 2025-05-28 14:10 | P.WCHP_ITS ---
Wound Care H&P: HPI History of Present Illness Narrative: Nora is a pleasant 84-year-old female who presents for routine nail care. She has history of coronary artery disease and peripheral arterial disease. She uses a cane for ambulation. She has a painful left hallux toenail which is severely incurvated and snags on her socks. [facility] Medical History Plantar fasciitis ?M72.2 - Plantar fascial fibromatosis (ICD-10) Skin cancer ?C44.90 - Unspecified malignant neoplasm of skin, unspecified (ICD-10) Wound infection (~2014) ?T14.8XXA - Other injury of unspecified body region, initial encounter (ICD- 10) ?L08.9 - Local infection of the skin and subcutaneous tissue, unspecified (ICD-10) Complication of artery associated with surgical procedure (06/01/14) ?I97.89 - Other postprocedural complications and disorders of the circulatory system, not elsewhere classified (ICD-10) Difficult intravenous access ?Z78.9 - Other specified health status (ICD-10) Breast cancer ?C50.919 - Malignant neoplasm of unspecified site of unspecified female breast (ICD-10) Arthritis ?M19.90 - Unspecified osteoarthritis, unspecified site (ICD-10) Anemia ?D64.9 - Anemia, unspecified (ICD-10) Pneumonia ?J18.9 - Pneumonia, unspecified organism (ICD-10) Chronic obstructive pulmonary disease ?J44.9 - Chronic obstructive pulmonary disease, unspecified (ICD-10) Extremity edema ?R60.0 - Localized edema (ICD-10) Dyspnea on exertion ?R06.09 - Other forms of dyspnea (ICD-10) High cholesterol ?E78.00 - Pure hypercholesterolemia, unspecified (ICD-10) Coronary artery disease ?I25.10 - Atherosclerotic heart disease of [place] coronary artery without angina pectoris (ICD-10) Hypertension ?I10 - Essential (primary) hypertension (ICD-10) Hypothyroidism ?E03.9 - Hypothyroidism, unspecified (ICD-10) Postoperative nausea and vomiting ?R11.2 - Nausea with vomiting, unspecified (ICD-10) ?Z98.890 - Other specified postprocedural states (ICD-10) Breast wound ?S21.009A - Unspecified open wound of unspecified breast, initial encounter (ICD-10) Surgical History History of incision and drainage (01/31/23) ?Z98.890 - Other specified postprocedural states (ICD-10) Hx of local excision of skin lesion (10/14/19) ?Z98.890 - Other specified postprocedural states (ICD-10) S/P skin biopsy (09/30/19) ?Z98.890 - Other specified postprocedural states (ICD-10) 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) ?Z96.642 - Presence of left artificial hip joint (ICD-10) H/O colonoscopy (03/31/15) ?Z98.890 - Other specified postprocedural states (ICD-10) H/O exploratory laparotomy (~06/01/14) ?Z98.890 - Other specified postprocedural states (ICD-10) H/O toe surgery (04/19/12) ?Z98.890 - Other specified postprocedural states (ICD-10) S/P left knee arthroscopy (04/22/08) ?Z98.890 - Other specified postprocedural states (ICD-10) H/O left breast biopsy (01/02/06) ?Z98.890 - Other specified postprocedural states (ICD-10) H/O lumbosacral spine surgery (04/23/98) ?Z98.890 - Other specified postprocedural states (ICD-10) H/O cervical spine surgery (07/09/97) ?Z98.890 - Other specified postprocedural states (ICD-10) History of surgery on arm (02/04/97) ?Z98.890 - Other specified postprocedural states (ICD-10) History of cervical spinal surgery (04/07/96) ?Z98.890 - Other specified postprocedural states (ICD-10) H/O shoulder surgery (04/07/96) ?Z98.890 - Other specified postprocedural states (ICD-10) H/O dilation and curettage (02/16/1962) ?Z98.890 - Other specified postprocedural states (ICD-10) H/O cervical spine surgery (07/19/95) ?Z98.890 - Other specified postprocedural states (ICD-10) H/O exploratory laparotomy (~1970) ?Z98.890 - Other specified postprocedural states (ICD-10) History of hysterectomy (~1970) ?Z90.710 - Acquired absence of both cervix and uterus (ICD-10) History of colostomy reversal (04/14/15) ?Z98.890 - Other specified postprocedural states (ICD-10) History of colostomy (07/07/14) History of esophagogastroduodenoscopy (EGD) ?Z98.890 - Other specified postprocedural states (ICD-10) History of colonoscopy (07/01/14) ?Z98.890 - Other specified postprocedural states (ICD-10) History of tonsillectomy (~1940) ?Z90.89 - Acquired absence of other organs (ICD-10) History of breast biopsy ?Z98.890 - Other specified postprocedural states (ICD-10) H/O lumpectomy (10/28/14) ?Z98.890 - Other specified postprocedural states (ICD-10) S/P cataract extraction and insertion of intraocular lens (~2006) ?Z98.49 - Cataract extraction status, unspecified eye (ICD-10) ?Z96.1 - Presence of intraocular lens (ICD-10) History of heart artery stent (09/03/18) ?Z95.5 - Presence of coronary angioplasty implant and graft (ICD-10) History of cardiac catheterization (09/03/18) ?Z98.890 - Other specified postprocedural states (ICD-10) History of total hip arthroplasty (10/25/10) ?Z96.649 - Presence of unspecified artificial hip joint (ICD-10) History of arthroplasty of knee (12/09/13) ?Z96.659 - Presence of unspecified artificial knee joint (ICD-10) Family History Other Family history of lung cancer Social History Within the past year, how often did you have a drink containing alcohol: never Score interpretation: A score less than 3 is consistent with normal alcohol consumption. Smoking status: Former smoker Non-prescribed substance use: denies use Previous occupational history: RETIRED Highest level of school completed/degree received: high school graduate Little interest or pleasure in doing things: not at all Feeling down, depressed, or hopeless: not at all Meds Home Medications and Allergies Home Medications ?Medication ?Instructions ?Recorded ?Confirmed ?Type acetaminophen 500 mg capsule 1,000 mg PO Q6H PRN pain 01/18/23 10/09/24 History albuterol sulfate 90 mcg/actuation 2 inh inhalation Q6 H PRN shortness 01/18/23 10/09/24 History aerosol inhaler of breath or wheezing amlodipine 10 mg tablet 10 mg PO DAILY 01/18/2307/05 History aspirin 81 mg tablet,delayed 81 mg PO DAILY 01/18/23 0 10/09/24 History release (Adult Aspirin Regimen) atorvastatin 40 mg tablet 40 mg PO QPM 01/18/23 History calcium 600 mg (as 1 tab PO DAILY 01/18/2307/05 History carbonate)-vitamin D3 5 mcg (200 unit) tablet cyanocobalamin (vitamin B-12) 500 mcg IM .monthly 01/0910/09/24 History 1,000 mcg/mL injection solution docusate sodium 100 mg capsule 100 mg PO DAILY PRN con stipation 01/18/23 10/09/24 History (Colace) fluticasone fur. 200 mcg-umeclid 1 inh inhalation VIRGILIO Y 01/18/23 10/09/24 History 62.5 mcg-vilant 25 mcg inhalat.powder (Trelegy Ellipta) inulin 2 gram chewable tablet 5 g PO BID 01/18/2307/05 History (Fiber Gummies) isosorbide mononitrate 60 mg 90 mg PO DAILY 01/18/23 0 10/09/24 History tablet,extended release 24 hr levothyroxine 88 mcg tablet 88 mcg PO DAILY 01/18/23 0 10/09/24 History (Euthyrox) lisinopril 20 mg tablet 20 mg PO BID 01/18/23 History temazepam 30 mg capsule (Restoril) 30 mg PO QPM 10/09/24 History doxazosin 2 mg tablet 4 mg PO DAILY 10/04/2410/09 History metoprolol succinate 25 mg 12.5 mg PO DAILY 10/04/24 0 10/09/24 History tablet,extended release 24 hr isosorbide mononitrate 30 mg 30 mg PO DAILY 10/09/24 0 10/09/24 History tablet,extended release 24 hr pantoprazole 40 mg tablet,delayed 40 mg PO DAILY 6 chris rodriguez #42 tabs 10/09/24 Rx release (Protonix) Allergies Allergy/AdvReac Type Severity Reaction Status Date / Time Penicillins Allergy Hives Verified 10/04/24 19:56 Sulfa (Sulfonamide Allergy Rash Verified 10/04/24 19:56 Antibiotics) Exam Narrative: Exam Narrative: Dermatologic: Fungal/mycotic toenails with a spiral left hallux toenail. The left hallux toenail is ingrown on both borders without evidence of paronychia. No ulcerative or preulcerative lesions noted. Skin is dry and shiny. Vascular: PT pulses are 1/4 bilaterally, dorsalis pedis pulses nonpalpable bilaterally. Capillary refill is less than 3 seconds. Superficial varicosities are noted. There is nonpitting edema of the feet and ankles bilaterally. Skin is cool to the touch. Digital hair is absent bilaterally. Neuro: Vibratory sensation intact bilaterally, Achilles deep tendon reflexes 1+ bilaterally, monofilament testing was absent to all 4 tested areas on the right and present in 2/4 areas on the left MSK: Strength 5/5 in all planes, contractures of the lesser toes noted Assessment and Plan Assessment and Plan (1) Nail dystrophy: (2) Tinea unguium: (3) Diminished pulses in lower extremity: (4) Disorder of nail due to another disorder: (5) Pain around toenail: Plan Routine nail care performed. Follow-up in 9-10 weeks. Acute Procedures Podiatry Nail Debridement Class B Findings Advanced trophic changes as evidenced by any three of the following: decreased hair growth, nail changes (thickening) and skin texture (thin or shiny) Absent dorsalis pedis pulse: bilateral Class C Findings Claudication: No Temperature changes: Yes Edema: Yes Nail debridement paresthesia (abnormal spontaneous sensations in the feet): No Burning: No Qualifies If: Qualifiers If:: A patient qualifies for nail debridement if they have: 1 class A finding (Q7) 2 class B findings (Q8) OR 1 class B & 2 class C findings in addition to a primary condition (Q9) Nail Procedure Nail Procedure Time out: Yes Nail procedure: other (Sharp debridement of toenails 1 through 10) Number of affected nails: 10 Location (toes): left and right Procedure successful: Yes Patient tolerated procedure: well and no complications Additional comments: Toenails 1 through 10 were sharply debrided with nail nippers without incident
== END 2025-05-28 13:19 | disposition home or self-care (01) ==
LOC: WC 13:19
PROVIDERS: PCP Internal Medicine; Visit Provider Physician Assistant
DX: L60.3 Nail dystrophy (principal); B35.1 Tinea unguium; R09.89 Other specified symptoms and signs involving the circulatory and respiratory systems; L60.8 Other nail disorders; M79.675 Pain in left toe(s); M79.674 Pain in right toe(s); I12.9 Hypertensive chronic kidney disease with stage 1 through stage 4 chronic kidney disease, or unspecified chronic kidney disease; N18.31 Chronic kidney disease, stage 3a; I25.10 Atherosclerotic heart disease of native coronary artery without angina pectoris; E78.00 Pure hypercholesterolemia, unspecified; E03.8 Other specified hypothyroidism; E06.3 Autoimmune thyroiditis; R06.00 Dyspnea, unspecified; R06.89 Other abnormalities of breathing; J44.9 Chronic obstructive pulmonary disease, unspecified; J30.89 Other allergic rhinitis
CPT/HCPCS: 11721; 36415; 80053; 80061; 82785; 84443; 85025